=== PATIENT | male | born 1955 | race Caucasian/White ===

== ENCOUNTER 2022-12-05 14:39 | Outpatient (OUT) | payer MEDICARE, MEDICAID, SELFPAY | END 2022-12-05 14:40 | PROVIDERS: Visit Provider Physician Assistant | DX: E11.621 Type 2 diabetes mellitus with foot ulcer (principal); L97.521 Non-pressure chronic ulcer of other part of left foot limited to breakdown of skin; L97.421 Non-pressure chronic ulcer of left heel and midfoot limited to breakdown of skin | CPT/HCPCS: 99212; G0463 ==

== ENCOUNTER 2022-12-26 13:13 | Outpatient (OUT) | payer MEDICARE, MEDICAID, SELFPAY | END 2022-12-26 13:14 | disposition home or self-care (01) | LOC: WC 13:13 | PROVIDERS: Visit Provider Physician Assistant | DX: E11.621 Type 2 diabetes mellitus with foot ulcer (principal); L97.521 Non-pressure chronic ulcer of other part of left foot limited to breakdown of skin; L97.421 Non-pressure chronic ulcer of left heel and midfoot limited to breakdown of skin; M21.6X2 Other acquired deformities of left foot; I73.9 Peripheral vascular disease, unspecified; I48.0 Paroxysmal atrial fibrillation; R78.81 Bacteremia; N18.30 Chronic kidney disease, stage 3 unspecified; R00.1 Bradycardia, unspecified; I10 Essential (primary) hypertension; E55.9 Vitamin D deficiency, unspecified; E11.21 Type 2 diabetes mellitus with diabetic nephropathy; E11.65 Type 2 diabetes mellitus with hyperglycemia; E11.59 Type 2 diabetes mellitus with other circulatory complications | CPT/HCPCS: A6213; G0463 ==

== ENCOUNTER 2023-01-09 08:37 | Outpatient (OUT) | payer MEDICARE, MEDICAID, SELFPAY ==
--- NOTE | 2023-01-09 09:21 | XR_ITS ---
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 No cortical destruction or periosteal reaction. Calcaneal plantar spur. No bone lesion. SOFT TISSUES:No appreciable soft tissue swelling or foreign body. Atherosclerotic disease. EFFUSION:None visible. OTHER: Negative. XR/XR foot LT min 3V IMPRESSION: 1. Stable surgical changes. No findings to suggest osteomyelitis. Electronically authenticated by: EDILSON DON Date: 01/09/2023 12:33
== END 2023-01-09 08:38 | disposition home or self-care (01) ==
LOC: WC 08:37
PROVIDERS: Visit Provider Physician Assistant
DX: M79.672 Pain in left foot (principal); E11.621 Type 2 diabetes mellitus with foot ulcer; L97.421 Non-pressure chronic ulcer of left heel and midfoot limited to breakdown of skin
CPT/HCPCS: 11042; 73630; A6213

== ENCOUNTER 2023-01-17 12:12 | Outpatient (OUT) | payer MEDICARE, MEDICAID, SELFPAY | END 2023-01-17 12:13 | disposition home or self-care (01) | LOC: WC 12:12 | PROVIDERS: Visit Provider Podiatrist Foot & Ankle Surgery | DX: E11.621 Type 2 diabetes mellitus with foot ulcer (principal); L97.421 Non-pressure chronic ulcer of left heel and midfoot limited to breakdown of skin | CPT/HCPCS: 15275 ==

== ENCOUNTER 2023-01-25 12:25 | Outpatient (OUT) | payer MEDICARE, MEDICAID, SELFPAY | END 2023-01-25 12:26 | disposition home or self-care (01) | LOC: WC 12:25 | PROVIDERS: Visit Provider Podiatrist Foot & Ankle Surgery | DX: E11.621 Type 2 diabetes mellitus with foot ulcer (principal); L97.521 Non-pressure chronic ulcer of other part of left foot limited to breakdown of skin; L97.421 Non-pressure chronic ulcer of left heel and midfoot limited to breakdown of skin | CPT/HCPCS: A6213; G0463 ==

== ENCOUNTER 2023-01-30 14:24 | Outpatient (OUT) | payer MEDICARE, MEDICAID, SELFPAY | END 2023-01-30 14:25 | disposition home or self-care (01) | LOC: WC 14:24 | PROVIDERS: Visit Provider Physician Assistant | DX: E11.621 Type 2 diabetes mellitus with foot ulcer (principal); L97.421 Non-pressure chronic ulcer of left heel and midfoot limited to breakdown of skin; L97.521 Non-pressure chronic ulcer of other part of left foot limited to breakdown of skin | CPT/HCPCS: 15275 ==

== ENCOUNTER 2023-02-08 10:11 | Outpatient (OUT) | payer MEDICARE, MEDICAID, SELFPAY | END 2023-02-08 10:12 | disposition home or self-care (01) | LOC: WC 10:11 | PROVIDERS: Visit Provider Podiatrist Foot & Ankle Surgery | DX: E11.621 Type 2 diabetes mellitus with foot ulcer (principal); L97.421 Non-pressure chronic ulcer of left heel and midfoot limited to breakdown of skin | CPT/HCPCS: 15275 ==

== ENCOUNTER 2023-02-16 09:10 | Outpatient (OUT) | payer MEDICARE, MEDICAID, SELFPAY | END 2023-02-16 09:11 | disposition home or self-care (01) | LOC: WC 09:11 | PROVIDERS: Visit Provider Physician Assistant | DX: E11.621 Type 2 diabetes mellitus with foot ulcer (principal); L97.421 Non-pressure chronic ulcer of left heel and midfoot limited to breakdown of skin | CPT/HCPCS: 15275; A6213 ==

== ENCOUNTER 2023-02-24 09:05 | Outpatient (OUT) | payer MEDICARE, MEDICAID, SELFPAY | END 2023-02-24 09:06 | disposition home or self-care (01) | LOC: WC 09:05 | PROVIDERS: Visit Provider Podiatrist Foot & Ankle Surgery | DX: E11.621 Type 2 diabetes mellitus with foot ulcer (principal); L97.421 Non-pressure chronic ulcer of left heel and midfoot limited to breakdown of skin | CPT/HCPCS: 15275; A6213 ==

== ENCOUNTER 2023-03-03 09:18 | Outpatient (OUT) | payer MEDICARE, MEDICAID, SELFPAY | END 2023-03-03 09:19 | disposition home or self-care (01) | LOC: WC 09:18 | PROVIDERS: Visit Provider Podiatrist Foot & Ankle Surgery | DX: E11.621 Type 2 diabetes mellitus with foot ulcer (principal); L97.421 Non-pressure chronic ulcer of left heel and midfoot limited to breakdown of skin; L97.521 Non-pressure chronic ulcer of other part of left foot limited to breakdown of skin | CPT/HCPCS: 11042; A6213 ==

== ENCOUNTER 2023-03-10 10:07 | Outpatient (OUT) | payer MEDICARE, MEDICAID, SELFPAY | END 2023-03-10 10:08 | disposition home or self-care (01) | LOC: WC 10:07 | PROVIDERS: Visit Provider Podiatrist Foot & Ankle Surgery | DX: E11.621 Type 2 diabetes mellitus with foot ulcer (principal); L97.421 Non-pressure chronic ulcer of left heel and midfoot limited to breakdown of skin; L97.521 Non-pressure chronic ulcer of other part of left foot limited to breakdown of skin | CPT/HCPCS: 11042; A6213 ==

== ENCOUNTER 2023-03-28 15:05 | Outpatient (OUT) | payer MEDICARE, MEDICAID, SELFPAY | END 2023-03-28 15:06 | disposition home or self-care (01) | LOC: WC 15:05 | PROVIDERS: Visit Provider Podiatrist Foot & Ankle Surgery | DX: E11.621 Type 2 diabetes mellitus with foot ulcer (principal); L97.421 Non-pressure chronic ulcer of left heel and midfoot limited to breakdown of skin | CPT/HCPCS: 11042 ==

== ENCOUNTER 2023-04-17 14:14 | Outpatient (OUT) | payer MEDICARE, MEDICAID, SELFPAY | END 2023-04-17 14:15 | disposition home or self-care (01) | LOC: WC 14:15 | PROVIDERS: Visit Provider Physician Assistant | DX: E11.621 Type 2 diabetes mellitus with foot ulcer (principal); L97.421 Non-pressure chronic ulcer of left heel and midfoot limited to breakdown of skin | CPT/HCPCS: 11042 ==

== ENCOUNTER 2023-05-01 09:47 | Outpatient (OUT) | payer MEDICARE, MEDICAID, SELFPAY | END 2023-05-01 09:48 | disposition home or self-care (01) | LOC: WC 09:47 | PROVIDERS: Visit Provider Physician Assistant | DX: E11.621 Type 2 diabetes mellitus with foot ulcer (principal); L97.421 Non-pressure chronic ulcer of left heel and midfoot limited to breakdown of skin | CPT/HCPCS: A6213; G0463 ==

== ENCOUNTER 2023-05-23 08:58 | Outpatient (OUT) | payer MEDICARE, MEDICAID, SELFPAY | END 2023-05-23 08:59 | disposition home or self-care (01) | LOC: WC 08:58 | PROVIDERS: Visit Provider Podiatrist Foot & Ankle Surgery | DX: E11.621 Type 2 diabetes mellitus with foot ulcer (principal); L97.421 Non-pressure chronic ulcer of left heel and midfoot limited to breakdown of skin | CPT/HCPCS: 11042 ==

== ENCOUNTER 2023-06-12 08:56 | Outpatient (OUT) | payer MEDICARE, MEDICAID, SELFPAY | END 2023-06-12 08:57 | disposition home or self-care (01) | LOC: WC 08:56 | PROVIDERS: Visit Provider Physician Assistant | DX: E11.621 Type 2 diabetes mellitus with foot ulcer (principal); L97.421 Non-pressure chronic ulcer of left heel and midfoot limited to breakdown of skin | CPT/HCPCS: G0463 ==

== ENCOUNTER 2023-07-10 08:52 | Outpatient (OUT) | payer MEDICARE, MEDICAID, SELFPAY ==
--- OUTSIDE RECORDS SUMMARY | 2023-07-10 08:56 | XMS_ITS | CCD ---
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 Name Role Phone MARIANA PHILLIPS Attending Unavailable HIGHLANDER, MARIANA Liu Admitting Unavailable HIGHLANDER, MARIANA Liu Attending Unavailable HIGHLANDER, MARIANA Liu Admitting Unavailable HIGHLANDER, MARIANA Liu Admitting Unavailable HIGHLANDER, MARIANA Liu Attending Unavailable [place] Admitting Unavailable [place] Attending Unavailable HIGHLANDER, MARIANA Liu Admitting Unavailable HIGHLANDER, MARIANA Liu Attending Unavailable HIGHLANDER, MARIANA Liu Admitting Unavailable DR EDILSON DON Consulting Unavailable HIGHLANDER, MARIANA Liu Attending Unavailable HIGHLANDER, MARIANA Liu Consulting Unavailable HIGHLANDER, MARIANA Liu Admitting Unavailable HIGHLANDER, MARIANA Liu Consulting Unavailable HIGHLANDER, MARIANA Liu Attending Unavailable Problems Problem Classification Problem Date Documented Da te Episodic/Chronic Acquired foot deformities (1 source) Other acquired deformities of left foot; 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: [OTHER ACQUIRED DEFORMITIES LT FOOT] Onset: 08-26-2022 Episodic Bacterial infection; unspecified site (1 source) Bacteremia; 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: [BACTEREMIA] Onset: 08-26-2022 Episodic Cardiac dysrhythmias (2 sources) Unspecified atrial fibrillation; 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: [Paroxysmal atrial fibrillation] Onset: 08-26-2022 Chronic Cardiac dysrhythmias (1 source) Bradycardia, unspecified; 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: [BRADYCARDIA UNSPECIFIED] Onset: 08-26-2022 Episodic Chronic ulcer of skin (6 sources) 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 breakdown of skin; 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: [Non-pressure chronic ulcer of left heel and midfoot limited to breakdown of skin] Onset: 08-26-2022 Chronic Diabetes mellitus with complications (12 sources) Type 2 diabetes mellitus with other skin ulcer; 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: [Type 2 diabetes mellitus with diabetic nephropathy] Onset: 08-17-2022 Chronic Essential hypertension (1 source) Essential (primary) hypertension; 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: [ESSENTIAL PRIMARY HYPERTENSION] Onset: 08-26-2022 Chronic Hypertension with complications and secondary hypertension (1 source) Hypertensive chronic kidney disease with stage 1 through stage 4 chronic kidney disease, or unspecified chronic kidney disease; 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: [HTN CKD W/STAGE 1-4 CKD/UNS CKD] Onset: 09-21-2022 Chronic Nutritional deficiencies (1 source) Vitamin D deficiency, unspecified; 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: [VITAMIN D DEFICIENCY UNSPECIFIED] Onset: 08-26-2022 Chronic Other circulatory disease (4 sources) Other disorder of circulatory system; 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: [OTHER DISORDER CIRCULATORY SYSTEM] Onset: 08-16-2022 Episodic Other circulatory disease (1 source) Other specified symptoms and signs involving the circulatory and respiratory systems; 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: [OTH SPEC SX SIGNS INVLV CIRC RS] Onset: 08-21-2022 Episodic Other connective tissue disease (4 sources) Pain in left foot; 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: [PAIN IN LEFT FOOT] Onset: 08-09-2022 Episodic Peripheral and visceral atherosclerosis (1 source) Peripheral vascular disease, unspecified; 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: [PERIPHERAL VASCULAR DISEASE UNS] Onset: 08-26-2022 Chronic Unclassified (1 source) CHRN KIDNEY DISEASE STG 3 UNSP; 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: [CHRN KIDNEY DISEASE STG 3 UNSP] Onset: 09-21-2022 Encounters Encounter Date Encounter Type Care Provider Facility Start: 11-14-2022 End: 11-15-2022 ambulatory MARIANA PHILLIPS Facility:[facility] Start: 10-24-2022 End: 10-25-2022 ambulatory MARIANA PHILLIPS Facility:[facility] Start: 10-03-2022 End: 10-04-2022 ambulatory MARIANA PHILLIPS Facility:[facility] Start: 09-12-2022 End: 09-13-2022 ambulatory CHET FOURNIER Facility:[facility] Start: 08-23-2022 End: 08-24-2022 ambulatory MARIANA PHILLIPS Facility:[facility] Start: 08-16-2022 End: 08-17-2022 ambulatory MARIANA PHILLIPS Facility:[facility] Start: 08-09-2022 End: 08-10-2022 ambulatory MARIANA PHILLIPS Facility:[facility] Payers Date Payer Category Payer Medicaid [id number] 1960 Medicare [id number] 1955 Unknown [id number] 2.16.84 [id number] 1955 Unknown [id number] 2.16.84 [id number] 1955 Unknown [id number] 2.16.84 [id number] 1955 Unknown [id number] 2.16.84 [id number] 1955 Unknown [id number] 2.16.84 [id number] 1955 Unknown [id number] 2.16.84 [id number] 1955 Unknown [id number] 2.16.84 [id number] Clinical Note 08-09-2022 Note Date & Type Note Facility 08-09-2022 Note PROCEDURE: XR FOOT L T MIN 3 VIEWS HISTORY: Pain in left foot COMPARISON: None. FINDINGS: BONES:Amputation of the third, fourth, and fifth toes at mid metatarsal level. Mild degenerative changes of the first metatarsophalangeal joint. Calcaneal plantar spur. SOFT TISSUES:No visible soft tissue swelling. Atherosclerotic disease. EFFUSION:None visible. OTHER: Negative. IMPRESSION: 1. Remote amputation changes. 2. No appreciable acute abnormality or findings to suggest osteomyelitis. Electronically authenticated by: EDILSON DON Date: 2022-08-09 15:44 [facility] Summary Purpose Family History No Family History Records Found Advance Directives No Advanced Directives Records Found Additional Source Comments (unrecognized sect ion and content) No Status Records Found INFORMATION SOURCE (unrecogn ized section and content) DATE CREATED AUTHOR 11/16/2022 The [facility] FOR RECORDS PERTAINING TO PATIENTS WHO ARE OR HAVE BEEN ENROLLED IN A CHEMICAL DEPENDENCY/SUBSTANCEABUSE PROGRAM, SOME INFORMATION MAY BE OMITTED. This clinical summary was aggregated from multiple sources. Caution should be exercised in using it in the provision of clinical care. This summary normalizes information from multiple sources, and as a consequence, information in this document may materially change the coding, format and clinical context of patient data. In addition, data may be omitted in some cases. CLINICAL DECISIONS SHOULD BE BASED ON THE PRIMARY CLINICAL RECORDS. [facility]. provides no warranty or guarantee of the accuracy or completeness of information in this document.
== END 2023-07-10 08:53 | disposition home or self-care (01) ==
LOC: WC 08:52
PROVIDERS: Visit Provider Physician Assistant
DX: E11.621 Type 2 diabetes mellitus with foot ulcer (principal); L97.421 Non-pressure chronic ulcer of left heel and midfoot limited to breakdown of skin
CPT/HCPCS: G0463

== ENCOUNTER 2023-08-14 14:50 | Outpatient (OUT) | payer MEDICARE, MEDICAID, SELFPAY | END 2023-08-14 14:51 | disposition home or self-care (01) | LOC: WC 14:51 | PROVIDERS: Visit Provider Physician Assistant | DX: E11.621 Type 2 diabetes mellitus with foot ulcer (principal); L97.421 Non-pressure chronic ulcer of left heel and midfoot limited to breakdown of skin | CPT/HCPCS: 11042; A6213 ==

== ENCOUNTER 2023-09-04 13:20 | Outpatient (OUT) | payer MEDICARE, MEDICAID, SELFPAY | END 2023-09-04 13:21 | disposition home or self-care (01) | LOC: WC 13:20 | PROVIDERS: Visit Provider Physician Assistant | DX: E11.621 Type 2 diabetes mellitus with foot ulcer (principal); L97.421 Non-pressure chronic ulcer of left heel and midfoot limited to breakdown of skin; L84 Corns and callosities; E11.40 Type 2 diabetes mellitus with diabetic neuropathy, unspecified | CPT/HCPCS: A6213; G0463 ==

== ENCOUNTER 2023-09-25 15:38 | Outpatient (OUT) | payer MEDICARE, MEDICAID, SELFPAY ==
--- OUTSIDE RECORDS SUMMARY | 2023-09-25 15:47 | XMS_ITS | CCD ---
Author Organization [facility] Care Team Providers Care Special Population Paraprofessional Name Role Phone MARIANA PHILLIPS Attending Unavailable HIGHLANDER, MARIANA Liu Admitting Unavailable HIGHLANDER, MARIANA Liu Attending Unavailable HIGHLANDER, MARIANA Liu Admitting Unavailable HIGHLANDER, MARIANA Liu Admitting Unavailable HIGHLANDER, MARIANA Liu Attending Unavailable SHANTANU, CHET Admitting Unavailable SHANTANU, CHET Attending Unavailable HIGHLANDER, MARIANA Liu Admitting Unavailable HIGHLANDER, MARIANA Liu Attending Unavailable HIGHLANDER, MARIANA Liu Admitting Unavailable ZIEBER, DR EDILSON Jerez Consulting Unavailable HIGHLANDER, MARIANA Liu Attending Unavailable HIGHLANDER, MARIANA Liu Consulting Unavailable HIGHLANDER, MARIANA Liu Admitting Unavailable HIGHLANDER, MARIANA Liu Consulting Unavailable HIGHLANDER, MARIANA Liu Attending Unavailable ANGLIM, IZZY A Referring Unavailable ANGLIM, IZZY A Primary Care Unavailable ANGLIM, IZZY A Referring Unavailable ANGLIM, IZZY A Primary Care Unavailable ANGLIM, IZZY A Referring Unavailable ANGLIM, IZZY A Primary Care Unavailable ANGLIM, IZZY A Referring Unavailable ANGLIM, IZZY A Primary Care Unavailable Problems Problem Classification Problem Date Documented [...] Onset: 08-26-2022 Chronic Diabetes mellitus with complications (13 sources) Type 2 diabetes mellitus with other [...] W/STAGE 1-4 CKD/UNS CKD] Onset: 09-21-2022 Chronic Immunizations and screening for infectious disease (1 source) Encounter for screening for other viral diseases; 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: [Encounter for screening for other viral diseases] Onset: 08-02-2023 Episodic Nutritional deficiencies (2 sources) Vitamin D deficiency, unspecified; 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: [VITAMIN D [...] [PAIN IN LEFT FOOT] Onset: 08-09-2022 Episodic Other screening for suspected conditions (not mental disorders or infectious disease) (1 source) Encounter for screening for malignant neoplasm of prostate; 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: [Encounter for screening for malignant neoplasm of prostate] Onset: 09-22-2023 Episodic Peripheral and visceral atherosclerosis (1 source) Peripheral vascular disease, unspecified; 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: [PERIPHERAL VASCULAR DISEASE UNS] Onset: 08-26-2022 Chronic Spondylosis; intervertebral disc disorders; other back problems (1 source) Cervicalgia; 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: [Cervicalgia] Onset: 06-29-2023 Episodic Unclassified (1 source) CHRN KIDNEY DISEASE STG 3 UNSP; 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: [CHRN KIDNEY DISEASE STG 3 UNSP] Onset: 09-21-2022 Results Test Name Value Interpretation Reference Range Facil ity CBC AND AUTO DIFFon 09-22-19 ABSOLUTE BASOPHIL 0.0 X10E9/L Normal 0.0-0.2 [facility] Comment on above: Performed By: #### C BCA, CMP, THYR #### [facility] ([id number]) [address] [place] [address] 80806 #### 2857-1, 71687-2, 72234-5 #### [facility] ([id number]) [address], [address] [place] [address] ABSOLUTE NEUTROPHIL 4.3 X10E9/L Normal 1.5-6.6 [facility] Comment on above: Performed By: #### C BCA, CMP, THYR #### [facility] ([id number]) [address] [place] [address] 38545 #### 2857-1, 78436-7, 89774-5 #### [facility] ([id number]) [address], [address] [place] [address] Basophils/100 WBC (Bld) 0.5 % Normal [facility] Comment on above: Performed By: #### C BCA, CMP, THYR #### [facility] ([id number]) [address] [place] [address] 60424 #### 2857-1, 79266-0, 75184-5 #### [facility] ([id number]) [address], [address] [place] [address] Eosinophils (Bld) [#/Vol] 0.0 10*3/uL Normal 0.0-0.4 [facility] Comment on above: Performed By: #### C BCA, CMP, THYR #### [facility] ([id number]) [address] [place] [address] 52466 #### 2857-1, 42043-5, 54119-6 #### [facility] ([id number]) [address], [address] [place] [address] Eosinophils/100 WBC (Bld) 0.7 % Normal [facility] Comment on above: Performed By: #### C BCA, CMP, THYR #### [facility] ([id number]) [address] [place] [address] 19477 #### 2857-1, 35726-4, 94734-2 #### [facility] ([id number]) [address], [address] [place] [address] Erythrocyte distribution width (RBC) [Ratio] 15.8 % High 11.5-15.0 [facility] Comment on above: Performed By: #### C BCA, CMP, THYR #### [facility] ([id number]) [address] [place] [address] 20259 #### 2857-1, 42274-7, 33960-2 #### [facility] ([id number]) [address], [address] [place] [address] Hematocrit (Bld) [Volume fraction] 39.8 % Normal 39-49 [facility] Comment on above: Performed By: #### C BCA, CMP, THYR #### [facility] ([id number]) [address] [place] [address] 08920 #### 2857-1, 44535-8, 41390-2 #### [facility] ([id number]) [address], [address] [place] [address] Hemoglobin (Bld) [Mass/Vol] 13.2 g/dL Normal 13.0-17.0 [facility] Comment on above: Performed By: #### C BCA, CMP, THYR #### [facility] ([id number]) [address] [place] [address] 90345 #### 2857-1, 72597-8, 41244-6 #### [facility] ([id number]) [address], [address] [place] [address] Lymphocytes (Bld) [#/Vol] 1.1 10*3/uL Normal 1.0-3.5 [facility] Comment on above: Performed By: #### C BCA, CMP, THYR #### [facility] ([id number]) [address] [place] [address] 18843 #### 2857-1, 33563-9, 83204-4 #### [facility] ([id number]) [address] [place] [address], [address] [place] [address] Lymphocytes/100 WBC (Bld) 17.7 % Normal [facility] Comment on above: Performed By: #### C BCA, CMP, THYR #### [facility] ([id number]) [address] [place] [address] 77694 #### 2857-1, 27448-4, 24041-5 #### [facility] ([id number]) [address] [place] [address], [address] [place] [address] MCH (RBC) [Entitic mass] 29.8 pg Normal 27-34 [facility] Comment on above: Performed By: #### C BCA, CMP, THYR #### [facility] ([id number]) [address] [place] [address] 37745 #### 2857-1, 37860-7, 46177-9 #### [facility] ([id number]) [address] [place] [address], [address] [place] [address] MCHC (RBC) [Mass/Vol] 33.1 g/dL Normal 32-36 [facility] Comment on above: Performed By: #### C BCA, CMP, THYR #### [facility] ([id number]) [address] [place] [address] 22414 #### 2857-1, 98511-0, 70764-8 #### [facility] ([id number]) [address], [address] [place] [address] MCV (RBC) [Entitic vol] 90 fL Normal 80-100 [facility] Comment on above: Performed By: #### C BCA, CMP, THYR #### [facility] ([id number]) [address] [place] [address] 68895 #### 2857-1, 95392-0, 72449-2 #### [facility] ([id number]) [address], [address] [place] [address] Monocytes (Bld) [#/Vol] 0.8 10*3/uL Normal 0-0.9 [facility] Comment on above: Performed By: #### C BCA, CMP, THYR #### [facility] ([id number]) [address] [place] [address] 93681 #### 2857-1, 82274-6, 30575-4 #### [facility] ([id number]) [address], [address] [place] [address] Monocytes/100 WBC (Bld) 12.8 % Normal [facility] Comment on above: Performed By: #### C BCA, CMP, THYR #### [facility] ([id number]) [address] [place] [address] 24152 #### 2857-1, 39593-3, 19199-8 #### [facility] ([id number]) [address], [address] [place] [address] Neutrophils/100 WBC (Bld) 68.3 % Normal [facility] Comment on above: Performed By: #### C BCA, CMP, THYR #### [facility] ([id number]) [address] [place] [address] 79693 #### 2857-1, 89690-9, 55229-8 #### [facility] ([id number]) [address], [address] [place] [address] Platelet mean volume (Bld) [Entitic vol] 7.8 fL Normal 7-12 [facility] Comment on above: Performed By: #### C BCA, CMP, THYR #### [facility] ([id number]) [address] [place] [address] 04425 #### 2857-1, 01751-1, 82591-7 #### [facility] ([id number]) [address], [address] [place] [address] Platelets (Bld) [#/Vol] 259 10*3/uL Normal 150-450 [facility] Comment on above: Performed By: #### C BCA, CMP, THYR #### [facility] ([id number]) [address] [place] [address] 57208 #### 2857-1, 79298-3, 85406-8 #### [facility] ([id number]) [address], [address] [place] [address] RBC COUNT 4.42 X10E12/L Normal 4.10-5.70 [facility] Comment on above: Performed By: #### C BCA, CMP, THYR #### [facility] ([id number]) [address] [place] [address] 54325 #### 2857-1, 33606-1, 39523-2 #### [facility] ([id number]) [address], [address] [place] [address] WBC (Bld) [#/Vol] 6.2 10*3/uL Normal 4.0-11.0 [facility] Comment on above: Performed By: #### C BCA, CMP, THYR #### [facility] ([id number]) [address] [place] [address] 37934 #### 2857-1, 59397-5, 97800-7 #### [facility] ([id number]) [address], [address] [place] [address] COMPREHENSIVE METABOLIC PANE Alex 09-22-2023 Albumin [Mass/Vol] 4.2 g/dL Normal 3.2-5.3 [facility] Comment on above: Performed By: #### C BCA, CMP #### [facility] ([id number]) [address] [place] [address] 99773 #### 2857-1, 07829-8, 35554-7, FEPR, 2276-4 #### [facility] ([id number]) [address] [facility], [address] [place] [address] ALP [Catalytic activity/Vol] 41 U/L Normal 39-130 [facility] Comment on above: Performed By: #### C BCA, CMP #### [facility] ([id number]) [address] [place] [address] 09745 #### 2857-1, 84322-4, 09206-5, FEPR, 2276-4 #### [facility] ([id number]) [address] [facility], [address] [place] [address] ALT [Catalytic activity/Vol] 17 U/L Normal 0-40 [facility] Comment on above: Performed By: #### C BCA, CMP #### [facility] ([id number]) [address] [place] [address] 33113 #### 2857-1, 35156-3, 27067-8, FEPR, 2276-4 #### [facility] ([id number]) [address] [facility], [address] [place] [address] Anion gap [Moles/Vol] 6 mmol/L Normal 5-15 [facility] Comment on above: Performed By: #### C BCA, CMP #### [facility] ([id number]) [address] [place] [address] 90249 #### 2857-1, 55592-7, 31260-9, FEPR, 2276-4 #### [facility] ([id number]) [address], [address] [place] [address] AST [Catalytic activity/Vol] 20 U/L Normal 0-41 [facility] Comment on above: Performed By: #### C BCA, CMP #### [facility] ([id number]) [address] [place] [address] 52439 #### 2857-1, 22831-5, 21033-2, FEPR, 2276-4 #### [facility] ([id number]) [address], [address] [place] [address] Bilirubin [Mass/Vol] 0.4 mg/dL Normal 0.3-1.2 [facility] Comment on above: Performed By: #### C BCA, CMP #### [facility] ([id number]) [address] [place] [address] 19761 #### 2857-1, 57950-7, 82534-2, FEPR, 2276-4 #### [facility] ([id number]) [address], [address] [place] [address] Calcium [Mass/Vol] 9.3 mg/dL Normal 8.5-10.5 [facility] Comment on above: Performed By: #### C BCA, CMP #### [facility] ([id number]) [address] [place] [address] 94447 #### 2857-1, 16998-6, 16040-2, FEPR, 2276-4 #### [facility] ([id number]) [address], [address] [place] [address] Chloride [Moles/Vol] 103 mmol/L Normal 98-109 [facility] Comment on above: Performed By: #### C BCA, CMP #### [facility] ([id number]) [address] [place] [address] 11451 #### 2857-1, 23027-8, 64409-9, FEPR, 2276-4 #### [facility] ([id number]) [address], [address] [place] [address] CO2 [Moles/Vol] 27 mmol/L Normal 22-32 [facility] Comment on above: Performed By: #### C BCA, CMP #### [facility] ([id number]) [address] [place] [address] 06562 #### 2857-1, 01827-9, 06462-1, FEPR, 2276-4 #### [facility] ([id number]) [address], [address] [place] [address] Creatinine [Mass/Vol] 1.12 mg/dL Normal 0.70-1.20 [facility] Comment on above: Result Comment: METH OD TRACEABLE TO IDMS STANDARD Performed By: #### C BCA, CMP #### [facility] ([id number]) [address] [place] [address] 08127 #### 2857-1, 26244-9, 40634-5, FEPR, 2276-4 #### [facility] ([id number]) [address], [address] [place] [address] GFR/1.73 sq M.predicted among non-blacks MDRD (S/P/Bld) [Vol rate/Area] 71 mL/min/{1.73_m2} Normal >59 [facility] Comment on above: Result Comment: Reported eGFR is based on the CKD-EPI 2020 equation that does not use a race coefficient. Performed By: #### C BCA, CMP #### [facility] ([id number]) [address] [place] [address] 19732 #### 2857-1, 01215-9, 72224-6, FEPR, 2276-4 #### [facility] ([id number]) [address], [address] [place] [address] Glucose [Mass/Vol] 178 mg/dL High 65-99 [facility] Comment on above: Performed By: #### C BCA, CMP #### [facility] ([id number]) [address] [place] [address] 96878 #### 2857-1, 52579-9, 61039-9, FEPR, 6-4 #### [facility] ([id number]) [address] [facility], [address] [place] [address] Potassium [Moles/Vol] 4.6 mmol/L Normal 3.5-5.0 [facility] Comment on above: Performed By: #### C BCA, CMP #### [facility] ([id number]) [address] [place] [address] 10678 #### 2857-1, 10037-0, 59833-9, FEPR, 6-4 #### [facility] ([id number]) [address], [address] [place] [address] Protein [Mass/Vol] 7.8 g/dL Normal 6.0-8.0 [facility] Comment on above: Performed By: #### C BCA, CMP #### [facility] ([id number]) [address] [place] [address] 20374 #### 2857-1, 08171-5, 76805-4, FEPR, 2276-4 #### [facility] ([id number]) [address], [address] [place] [address] Sodium [Moles/Vol] 136 mmol/L Normal 134-146 [facility] Comment on above: Performed By: #### C BCA, CMP #### [facility] ([id number]) [address] [place] [address] 26164 #### 2857-1, 13697-0, 76220-7, FEPR, 2276-4 #### [facility] ([id number]) [address], [address] [place] [address] Urea nitrogen [Mass/Vol] 18 mg/dL Normal 5-27 [facility] Comment on above: Performed By: #### C BCA, CMP #### [facility] ([id number]) [address] [place] [address] 03212 #### 2857-1, 53308-7, 39391-7, FEPR, 6-4 #### [facility] ([id number]) [address], [address] [place] [address] HCV Ab IA Qlon 09-22-2023 ANTI HCV W/PCR REFLX Non-Reactive Normal NRCT [facility] Comment on above: Result Comment: If recent infection suspected, recommend repeat testing (>2 months). Ykwulx-hg-ytlrsm ratio is <0.80. Performed By: #### C BCA, CMP #### [facility] ([id number]) [address] [place] [address] 59789 #### 2857-1, 41738-0, 91709-9, FEPR, 6-4 #### [facility] ([id number]) [address], [address] [place] [address] HGB A1C (GLYCO-HGB)on 2023 Glucose [Mass/Vol] 180 mg/dL Normal [facility] Comment on above: Performed By: #### C BCA, CMP #### [facility] ([id number]) [address] [place] [address] 54848 #### 2857-1, 49668-1, 28546-0, FEPR, 2276-4 #### [facility] ([id number]) [address] [place] [address], [address] [address] HbA1c (Bld) [Mass fraction] 7.9 % High 4.4-5.6 [facility] Comment on above: Result Comment: NOTE ADA Guidelines Result HgbA1c Normal : less than 5.7 % Prediabetes : 5.7 % to 6.4 % Diabetes : > 6.4 % Use with caution in patients with abnormal hemoglobin variants as the half-life of red blood cells and in vivo glycation rates are affected. Performed By: #### C GARDENIA, CMP #### [facility] ([id number]) [address] [place] [address] 22916 #### 2857-1, 42300-0, 39029-9, FEPR, 2276-4 #### [facility] ([id number]) [address] [place] [address]73 Prostate specific Ag [Mass/V ol]on 09-22-2023 PSA SCREEN 0.89 ng/mL Normal 0.00-4.00 [facility] Comment on above: Result Comment: The method used for this test is Louis [place] DXI chemiluminescent immunoassay. Values obtained by different assay methods cannot be used interchangeably. Performed By: #### C BCA, CMP #### [facility] ([id number]) [address] [place] [address] 40820 #### 2857-1, 00748-6, 85488-8, FEPR, 2276-4 #### [facility] ([id number]) [address] [place] [address], [address] [address] THYROID PROFILEon 09-22-2023 Free T4 [Mass/Vol] 1.03 ng/dL Normal 0.61-1.60 [facility] Comment on above: Performed By: #### C GARDENIA, CMP #### [facility] ([id number]) [address] [place] [address] 93810 #### 2857-1, 99158-4, 01387-6, FEPR, 2276-4 #### [facility] ([id number]) [address] [facility], [address] [place] [address] TSH 4.47 uIU/mL Normal 0.49-4.67 [facility] Comment on above: Performed By: #### C BCA, CMP #### [facility] ([id number]) [address] [place] [address] 47349 #### 2857-1, 97183-3, 56992-1, FEPR, 2276-4 #### [facility] ([id number]) [address] [facility], [address] [place] [address] Vitamin D+Metabolites [Mass/ Vol]on 09-22-2023 VITAMIN D 25 HYD TOT 23.7 ng/mL Low 30-100 [facility] Comment on above: Result Comment: Vitamin D status 25 [place] Vitamin D Deficiency <20 ng/mL Insufficiency 20-29 ng/mL Sufficiency 30-100 ng/mL Toxicity >100 ng/mL NOTE: A pediatric reference range has not been established by the forensic economist of this kit. The [place] [employer] recommends a Vitamin D level of = or >20ng/mL in infants and children. Performed By: #### C BCA, CMP #### [facility] ([id number]) [address] [place] [address] 54725 #### 2857-1, 34906-3, 10422-6, FEPR, 2276-4 #### [facility] ([id number]) [address] [facility], [address] [place] [address] CBC AND AUTO DIFFon 08-02-19 24 ABSOLUTE BASOPHIL 0.0 X10E9/L Normal 0.0-0.2 [facility] Comment on above: Performed By: #### C BCA, CMP #### [facility] ([id number]) [address] [place] [address] 86502 #### 2857-1, 30592-1, 75125-5, FEPR, 2276-4 #### [facility] ([id number]) [address] [facility], [address] [place] [address] ABSOLUTE NEUTROPHIL 4.4 X10E9/L Normal 1.5-6.6 [facility] Comment on above: Performed By: #### C BCA, CMP #### [facility] ([id number]) [address] [place] [address] 66387 #### 2857-1, 99727-9, 93683-5, FEPR, 6-4 #### [facility] ([id number]) [facility] [facility], [address] [place] [address] Basophils/100 WBC (Bld) 0.5 % Normal [facility] Comment on above: Performed By: #### C BCA, CMP #### [facility] ([id number]) [address] [place] [address] 97846 #### 2857-1, 72046-1, 45288-7, FEPR, 6-4 #### [facility] ([id number]) [address] [facility], [address] [place] [address] Eosinophils (Bld) [#/Vol] 0.1 10*3/uL Normal 0.0-0.4 [facility] Comment on above: Performed By: #### C BCA, CMP #### [facility] ([id number]) [address] [place] [address] 53813 #### 2857-1, 38427-2, 78953-5, FEPR, 2276-4 #### [facility] ([id number]) [address], [address] [place] [address] Eosinophils/100 WBC (Bld) 0.9 % Normal [facility] Comment on above: Performed By: #### C BCA, CMP #### [facility] ([id number]) [address] [place] [address] #### 2857-1, 60055-9, 07245-0, FEPR, 2276-4 #### [facility] ([id number]) [address], [address] [place] [address] Erythrocyte distribution width (RBC) [Ratio] 15.7 % High 11.5-15.0 [facility] Comment on above: Performed By: #### C BCA, CMP #### [facility] ([id number]) [address] [place] [address] #### 2857-1, 70740-6, 74025-6, FEPR, 2276-4 #### [facility] ([id number]) [address], [address] [place] [address] Hematocrit (Bld) [Volume fraction] 38.3 % Low 39-49 [facility] Comment on above: Performed By: #### C BCA, CMP #### [facility] ([id number]) [address] [place] [address] #### 2857-1, 13022-5, 52544-1, FEPR, 2276-4 #### [facility] ([id number]) [address], [address] [place] [address] Hemoglobin (Bld) [Mass/Vol] 12.5 g/dL Low 13.0-17.0 [facility] Comment on above: Performed By: #### C BCA, CMP #### [facility] ([id number]) [address] [place] [address] #### 2857-1, 21098-4, 14849-3, FEPR, 2276-4 #### [facility] ([id number]) [address], [address] [place] [address] Lymphocytes (Bld) [#/Vol] 1.2 10*3/uL Normal 1.0-3.5 [facility] Comment on above: Performed By: #### C BCA, CMP #### [facility] ([id number]) [address] [place] [address] #### 2857-1, 18992-5, 78821-1, FEPR, 6-4 #### [facility] ([id number]) [address], [address] [place] [address] Lymphocytes/100 WBC (Bld) 18.4 % Normal [facility] Comment on above: Performed By: #### C BCA, CMP #### [facility] ([id number]) [address] [place] [address] #### 2857-1, 94894-9, 33090-5, FEPR, 6-4 #### [facility] ([id number]) [address], [address] [place] [address] MCH (RBC) [Entitic mass] 29.1 pg Normal 27-34 [facility] Comment on above: Performed By: #### C BCA, CMP #### [facility] ([id number]) [address] [place] [address] #### 2857-1, 94853-7, 94890-0, FEPR, 2276-4 #### [facility] ([id number]) [address], [address] [place] [address] MCHC (RBC) [Mass/Vol] 32.7 g/dL Normal 32-36 [facility] Comment on above: Performed By: #### C BCA, CMP #### [facility] ([id number]) [address] [place] [address] #### 2857-1, 48617-7, 82815-7, FEPR, 2276-4 #### [facility] ([id number]) [address], [address] [place] [address] MCV (RBC) [Entitic vol] 89 fL Normal 80-100 [facility] Comment on above: Performed By: #### C BCA, CMP #### [facility] ([id number]) [address] [place] [address] #### 2857-1, 29805-6, 39020-5, FEPR, 2276-4 #### [facility] ([id number]) [address] [facility], [address] [place] [address] Monocytes (Bld) [#/Vol] 1.0 10*3/uL High 0-0.9 [facility] [facility] Comment on above: Performed By: #### C BCA, CMP #### [facility] ([id number]) [address] [place] [address] #### 2857-1, 50849-3, 60218-2, FEPR, 2276-4 #### [facility] ([id number]) [address], [address] [place] [address] Monocytes/100 WBC (Bld) 14.3 % Normal [facility] Comment on above: Performed By: #### C BCA, CMP #### [facility] ([id number]) [address] [place] [address] 24430 #### 2857-1, 87579-1, 39190-3, FEPR, 2276-4 #### [facility] ([id number]) [address], [address] [place] [address] Neutrophils/100 WBC (Bld) 65.9 % Normal [facility] Comment on above: Performed By: #### C GARDENIA, CMP #### [facility] ([id number]) [address] [place] [address] 38929 #### 2857-1, 31281-5, 29818-4, FEPR, 2276-4 #### [facility] ([id number]) [address], [address] [place] [address] Platelet mean volume (Bld) [Entitic vol] 8.3 fL Normal 7-12 [facility] Comment on above: Performed By: #### C GARDENIA, CMP #### [facility] ([id number]) [address] [place] [address] 93417 #### 2857-1, 56756-6, 02711-2, FEPR, 2276-4 #### [facility] ([id number]) [address], [address] [place] [address] Platelets (Bld) [#/Vol] 271 10*3/uL Normal 150-450 [facility] Comment on above: Performed By: #### Jerry VARNER, CMP #### [facility] ([id number]) [address] [place] [address] 81555 #### 2857-1, 49152-3, 10815-6, FEPR, 2276-4 #### [facility] ([id number]) [address], [address] [place] [address] RBC COUNT 4.31 X10E12/L Normal 4.10-5.70 [facility] Comment on above: Performed By: #### C BCA, CMP #### [facility] ([id number]) [address] [place] [address] 91655 #### 2857-1, 48642-4, 29124-0, FEPR, 2276-4 #### [facility] ([id number]) [address], [address] [place] [address] WBC (Bld) [#/Vol] 6.7 10*3/uL Normal 4.0-11.0 [facility] Comment on above: Performed By: #### C BCA, CMP #### [facility] ([id number]) [address] [place] [address] 7[address] #### 2857-1, 10371-3, 12875-5, FEPR, 2276-4 #### [facility] ([id number]) [address], [address] [place] [address] COMPREHENSIVE METABOLIC PANE Alex 08-02-2023 Albumin [Mass/Vol] 3.8 g/dL Normal 3.2-5.3 [facility] Comment on above: Performed By: #### C BCA, CMP #### [facility] ([id number]) [address] [place] [address] 65446 #### 2857-1, 88297-5, 59450-9, FEPR, 2276-4 #### [facility] ([id number]) [address], [address] [place] [address] ALP [Catalytic activity/Vol] 48 U/L Normal 39-130 [facility] Comment on above: Performed By: #### C BCA, CMP #### [facility] ([id number]) [address] [place] [address] 37705 #### 2857-1, 08287-4, 08365-9, FEPR, 2276-4 #### [facility] ([id number]) [address], [address] [place] [address] ALT [Catalytic activity/Vol] 18 U/L Normal 0-40 [facility] Comment on above: Performed By: #### C BCA, CMP #### [facility] ([id number]) [address] [place] [address] 18619 #### 2857-1, 64893-2, 69332-8, FEPR, 2276-4 #### [facility] ([id number]) [address], [address] [place] [address] Anion gap [Moles/Vol] 9 mmol/L Normal 5-15 [facility] Comment on above: Performed By: #### C BCA, CMP #### [facility] ([id number]) [address] [place] [address] 15782 #### 2857-1, 76874-3, 88087-0, FEPR, 2276-4 #### [facility] ([id number]) [address], [address] [place] [address] AST [Catalytic activity/Vol] 24 U/L Normal 0-41 [facility] Comment on above: Performed By: #### C BCA, CMP #### [facility] ([id number]) [address] [place] [address] 84789 #### 2857-1, 83660-9, 60797-6, FEPR, 2276-4 #### [facility] ([id number]) [address], [address] [place] [address] Bilirubin [Mass/Vol] 0.6 mg/dL Normal 0.3-1.2 [facility] Comment on above: Performed By: #### C BCA, CMP #### [facility] ([id number]) [address] [place] [address]10 #### 2857-1, 18294-7, 70373-9, FEPR, 2276-4 #### [facility] ([id number]) [address], [address] [place] [address] Calcium [Mass/Vol] 9.0 mg/dL Normal 8.5-10.5 [facility] Comment on above: Performed By: #### C BCA, CMP #### [facility] ([id number]) [address] [place] [address] 89348 #### 2857-1, 48821-0, 40458-1, FEPR, 2276-4 #### [facility] ([id number]) [address], [address] [place] [address] Chloride [Moles/Vol] 98 mmol/L Normal 98-109 [facility] Comment on above: Performed By: #### C BCA, CMP #### [facility] ([id number]) [address] [place] [address] #### 2857-1, 45267-8, 16928-7, FEPR, 2276-4 #### [facility] ([id number]) [address] [facility], [address] [place] [address] CO2 [Moles/Vol] 28 mmol/L Normal 22-32 [facility] Comment on above: Performed By: #### C BCA, CMP #### [facility] ([id number]) [address] [place] [address] 81798 #### 2857-1, 27857-2, 68180-2, FEPR, 2276-4 #### [facility] ([id number]) [address], [address] [place] [address] Creatinine [Mass/Vol] 0.93 mg/dL Normal 0.70-1.20 [facility] Comment on above: Result Comment: METH OD TRACEABLE TO IDMS STANDARD Performed By: #### C BCA, CMP #### [facility] ([id number]) [address] [place] [address] 37932 #### 2857-1, 59322-0, 76897-9, FEPR, 2276-4 #### [facility] ([id number]) [address], [address] [place] [address] GFR/1.73 sq M.predicted among non-blacks MDRD (S/P/Bld) [Vol rate/Area] 89 mL/min/{1.73_m2} Normal >59 [facility] Comment on above: Result Comment: Reported eGFR is based on the CKD-EPI 2020 equation that does not use a race coefficient. Performed By: #### C BCA, CMP #### [facility] ([id number]) [address] [place] [address] #### 2857-1, 23749-8, 84805-2, FEPR, 2276-4 #### [facility] ([id number]) [address], [address] [place] [address] Glucose [Mass/Vol] 193 mg/dL High 65-99 [facility] Comment on above: Performed By: #### C BCA, CMP #### [facility] ([id number]) [address] [place] [address] 43957 #### 2857-1, 06776-9, 76595-6, FEPR, 2276-4 #### [facility] ([id number]) [address], [address] [place] [address] Potassium [Moles/Vol] 4.8 mmol/L Normal 3.5-5.0 [facility] Comment on above: Performed By: #### C BCA, CMP #### [facility] ([id number]) [address] [place] [address] 07288 #### 2857-1, 18488-5, 46688-5, FEPR, 2276-4 #### [facility] ([id number]) [address], [address] [place] [address] Protein [Mass/Vol] 7.8 g/dL Normal 6.0-8.0 [facility] Comment on above: Performed By: #### C BCA, CMP #### [facility] ([id number]) [address] [place] [address] 02188 #### 2857-1, 57321-9, 98541-0, FEPR, 2276-4 #### [facility] ([id number]) [address], [address] [place] [address] Sodium [Moles/Vol] 135 mmol/L Normal 134-146 [facility] Comment on above: Performed By: #### C BCA, CMP #### [facility] ([id number]) [address] [place] [address] 49798 #### 2857-1, 37070-5, 34174-3, FEPR, 2276-4 #### [facility] ([id number]) [address], [address] [place] [address] Urea nitrogen [Mass/Vol] 20 mg/dL Normal 5-27 [facility] Comment on above: Performed By: #### C BCA, CMP #### [facility] ([id number]) [address] [place] [address] 60676 #### 2857-1, 19078-0, 56489-3, FEPR, 2276-4 #### [facility] ([id number]) [address], [address] [place] [address] FERRITINon 08-02-2023 Ferritin [Mass/Vol] 29 ng/mL Normal 24-336 [facility] Comment on above: Performed By: #### C BCA, CMP #### [facility] ([id number]) [address] [place] [address] 13144 #### 2857-1, 95316-0, 23067-9, FEPR, 2276-4 #### [facility] ([id number]) [address], [address] [place] [address] HCV Ab IA Qlon 08-02-2023 ANTI HCV W/PCR REFLX Non-Reactive Normal NRCT [facility] Comment on above: Result Comment: If recent infection suspected, recommend repeat testing (>2 months). Lftjmd-xh-dcnrtj ratio is <0.80. Performed By: #### C BCA, CMP #### [facility] ([id number]) [address] [place] [address] 80824 #### 2857-1, 16525-2, 21583-5, FEPR, 2276-4 #### [facility] ([id number]) [address] [facility] [address] [place] [address] HGB A1C (GLYCO-HGB)on 2023 Glucose [Mass/Vol] 189 mg/dL Normal [facility] Comment on above: Performed By: #### C BCA, CMP #### [facility] ([id number]) [address] [place] [address] 27290 #### 2857-1, 97521-1, 03787-6, FEPR, 2276-4 #### [facility] ([id number]) [facility], [address] [address] HbA1c (Bld) [Mass fraction] 8.2 % High 4.4-5.6 [facility] Comment on above: Result Comment: NOTE ADA Guidelines Result HgbA1c Normal : less than 5.7 % Prediabetes : 5.7 % to 6.4 % Diabetes : > 6.4 % Use with caution in patients with abnormal hemoglobin variants as the half-life of red blood cells and in vivo glycation rates are affected. Performed By: #### C BCA, CMP #### [facility] ([id number]) [address] [place] [address]246 #### 2857-1, 88892-3, 93407-8, FEPR, 2276-4 #### [facility] ([id number]) [address] [facility], [address] [place] [address] IRON PROFILEon 08-02-2023 Iron [Mass/Vol] 47 ug/dL Low 50-212 [facility] Comment on above: Performed By: #### C BCA, CMP #### [facility] ([id number]) [address] [place] [address] 74778 #### 2857-1, 54146-6, 08512-9, FEPR, 2276-4 #### [facility] ([id number]) [address] [place] [address] IRON BINDING 379 ug/dL Normal 250-425 [facility] Comment on above: Performed By: #### C BCA, CMP #### [facility] ([id number]) [address] [place] [address] 56093 #### 2857-1, 53479-2, 91372-9, FEPR, 2276-4 #### [facility] ([id number]) [address] [place] [address] IRON SATURATION 12 % SATURATION Low 20-50 [facility] Comment on above: Performed By: #### C BCA, CMP #### [facility] ([id number]) [address] [place] [address] 29690 #### 2857-1, 86455-1, 63547-4, FEPR, 2276-4 #### [facility] ([id number]) [address] [place] [address], [address] [address] Prostate specific Ag [Mass/V ol]on 08-02-2023 PSA SCREEN 0.52 ng/mL Normal 0.00-4.00 [facility] Comment on above: Result Comment: The method used for this test is [employer]SC[employer] DXI chemiluminescent immunoassay. Values obtained by different assay methods cannot be used interchangeably. Performed By: #### C GARDENIA, CMP #### [facility] ([id number]) [address] [place] [address] 75488 #### 2857-1, 68276-9, 38677-8, FEPR, 2276-4 #### [facility] ([id number]) [address], [address] [place] [address] Vitamin D+Metabolites [Mass/ Vol]on 08-02-2023 VITAMIN D 25 HYD TOT 19.2 ng/mL Low 30-100 [facility] Comment on above: Result Comment: Vitamin D status 25 [place] Vitamin D Deficiency <20 ng/mL Insufficiency 20-29 ng/mL Sufficiency 30-100 ng/mL Toxicity >100 ng/mL NOTE: A pediatric reference range has not been established by the forensic economist of this kit. The [place] [employer] recommends a Vitamin D level of = or >20ng/mL in infants and children. Performed By: #### C GARDENIA, CMP #### [facility] ([id number]) [address] [place] [address] 08520 #### 2857-1, 51472-6, 40451-9, FEPR, 2276-4 #### [facility] ([id number]) [address], [address] [place] [address] XR SPINE CERVICAL 3 VWS OR L [facility] 06-29-2023 XR SPINE CERVICAL 3 VWS OR LESS XR SPINE CERVICAL 3 VWS OR LESS XR SPINE CERVICAL 3 VWS OR LESS HISTORY: Neck pain. COMPARISON: None. IMPRESSION: Preserved cervical vertebral body heights. No substantial listhesis. Moderate disc height loss at C4-C5, C5-C6, C6-C7; small associated disc osteophyte complex disease. Moderate median atlantoaxial osteoarthrosis. No prevertebral soft tissue thickening. Posterior facet arthropathy most noted at L2-3. Right carotid vascular calcifications. Finalized by Benedict Ash MD on 06/29/2023 3:36 PM Normal [facility] Encounters Encounter Date Encounter Type Care Provider Facility Start: 09-22-2023 End: 09-23-2023 ambulatory IZZY SAM [facility] Start: 08-02-2023 End: 08-03-2023 ambulatory IZZY SAM [facility] Start: 06-29-2023 End: 06-30-2023 ambulatory IZZY Langford [facility] Start: 11-14-2022 End: 11-15-2022 ambulatory PETER D HIGHLANDER Facility:[facility] Start: 10-24-2022 End: 10-25-2022 ambulatory PETER D HIGHLANDER Facility:[facility] Start: 10-03-2022 End: 10-04-2022 ambulatory PETER D HIGHLANDER Facility:[facility] Start: 09-12-2022 End: 09-13-2022 ambulatory CHET FOURNIER Facility:[facility] Start: 08-23-2022 End: 08-24-2022 ambulatory PETER D HIGHLANDER Facility:[facility] Start: 08-16-2022 End: 08-17-2022 ambulatory PETER D HIGHLANDER Facility:[facility] Start: 08-09-2022 End: 08-10-2022 ambulatory PETER D HIGHLANDER Facility:[facility] Payers Date Payer Category Payer Medicaid [id number] 1960 Medicare [id number] 1955 Unknown [id number] 1954 Unknown [id number] 2..84 0.1.332148.3.579.2.593 1954 Unknown [id number] 2.16.84 0.1.664486.3.579.2.593 1954 Unknown [id number] 2.16.84 0.1.582056.3.579.2.593 1954 Unknown [id number] 2.16.84 0.1.250413.3.579.2.593 1954 Unknown [id number] 2.16.84 0.1.440538.3.579.2.593 1954 Unknown [id number] 2.16.84 0.1.104117.3.579.2.593 1954 Unknown [id number] 2.16.8 40.1.808687.3.579.2.1286 1954 Unknown [id number] 2.16.8 40.1.681499.3.579.2.1286 1954 Unknown [id number] 2.16.84 0.1.755526.3.579.2.1286 1954 Unknown [id number] 2.16.84 0.1.273264.3.579.2.1286 Clinical Note 08-09-2022 Note Date & Type [...] by: EDILSON DON Date: 2022-08-09 15:44 [facility] Summary Purpose Family History No Family History Records FoundNo Family History Records Found Advance Directives No Advanced Directives Records FoundNo Advanced Directives Records Found Additional Source Comments (unrecognized sect ion and content) No Status Records FoundNo Status Records Found INFORMATION SOURCE (unrecogn ized section and content) DATE CREATED AUTHOR 11/16/2022 [facility] DATE CREATED AUTHOR 'S ORGANIZ ATION 09/24/2023 [facility] FOR RECORDS PERTAINING TO PATIENTS WHO [...] BE BASED ON THE PRIMARY CLINICAL RECORDS. [employer] [facility]. provides no warranty or guarantee of the accuracy or completeness of information in this document.
== END 2023-09-25 15:39 | disposition home or self-care (01) ==
LOC: WC 15:39
PROVIDERS: Visit Provider Physician Assistant
DX: E11.621 Type 2 diabetes mellitus with foot ulcer (principal); L97.421 Non-pressure chronic ulcer of left heel and midfoot limited to breakdown of skin
CPT/HCPCS: G0463

== ENCOUNTER 2024-01-12 08:32 | Emergency (ER) | payer MEDICARE, MEDICAID, SELFPAY ==
[2024-01-12 08:33] VITALS: BP 171/93; PULSE 74; TEMP 36.3; O2SAT 95; BMI 27.0
--- NOTE | 2024-01-12 08:54 | ED_ITS ---
HPI HPI - Back Pain/Injury General Chief Complaint: Back Pain/Injury Stated Complaint: LOWER BACK PAIN Time Seen by Provider: 01/12/24 08:34 Source: patient Mode of arrival: ambulance Limitations: no limitations History of Present Illness HPI Narrative: The patient presented to us with almost 3 weeks history of back pain, he already had an evaluation in a [facility] and he mentioned that x-rays were not showing anything abnormal and he was discharged home with pain medication, the patient denies any fall or trauma he mentioned that the pain is in the right side of his back going down his leg. He mentioned that no numbness no tingling no weakness and the pain is 5 out of 10 He has not been taking anything for it [id number] and he also mentioned that he usually ambulates with his walker and he have no difficulty ambulating with the pain The patient have no other complaints, he also mentioned that he have a decubital ulcer that he has been following up with in the wound care and he is supposed to get an MRI for his back in case of the ulcer is not getting better. The patient mentioned that he have home health care nurse and he had a discussion before about rehab with his doctor but at that time he did not want to go for rehad Related Data Home Medications ?Medication ?Instructions ?Recorded ?Confirmed Lactobacillus acidophilus 100 mg 01/12/24 (1 billion cell) capsule amiodarone 200 mg tablet mg 01/12/24 aspirin 81 mg tablet,delayed mg 01/12/24 release carisoprodol 350 mg tablet mg 01/12/24 cholecalciferol (vitamin D3) 125 01/12/24 mcg (5,000 unit) capsule empagliflozin 25 mg tablet mg 01/12/24 (Jardiance) insulin glargine 100 unit/mL (3 unit subcut 01/12/24 mL) subcutaneous pen (Basaglar KwikPen U-100 Insulin) magnesium oxide 400 mg (241.3 mg mg 01/12/24 magnesium) tablet metformin 500 mg tablet,extended mg PO 01/12/24 release 24 hr metoprolol succinate 100 mg mg PO 01/12/24 tablet,extended release 24 hr pantoprazole 40 mg tablet,delayed mg PO 01/12/24 release rivaroxaban 20 mg tablet (Xarelto) mg 01/12/24 semaglutide 0.25 mg or 0.5 mg (2 mg subcut 01/12/24 mg/3 mL) subcutaneous pen injector (Ozempic) sertraline 50 mg tablet mg 01/12/24 tamsulosin 0.4 mg capsule mg PO 01/12/24 Previous Rx's ?Medication ?Instructions ?Recorded tramadol 50 mg tablet 50 mg PO Q8H PRN pain 3 days #9 01/12/24 tabs Allergies Allergy/AdvReac Type Severity Reaction Status Date / Time No Known Drug Allergies Allergy Verified 01/12/24 08:37 Opioid HPI Opioid Management Most Recent Opioid Data: Last Pain Scale 5 01/12/24 09:03 Last ED Pain Assessment 01/12/24 08:35 Last MAR Pain Assessment 01/12/24 09:03 Review of Systems ROS Status of ROS 10 or more systems reviewed and unremark able except as noted in history and below Exam Narrative Exam Narrative: Back: Examination showed that the patient have right paraspinal muscle tenderness mostly at the sacral area and the patient have a decubital ulcer that is at the gluteal cleft almost 7.5 cm oval in shape only redness there is no open wound and there is tenderness on palpation No signs of infection the patient have also sacral intervertebral line tenderness Straight leg raising test is negative Nurses notes and vital signs reviewed and patient is not hypoxic. General: Well-appearing and in no apparent distress. Skin: Warm, dry, no pallor noted. No rash. Head: Normocephalic, atraumatic. Neck: Supple, non-tender. Eye: Pupils are equal, round and EOMI. No scleral icterus. Ears, Nose, Mouth, and Throat: TM are clear, no nasal mucosal hypertrophy. Oral mucosa is moist, no posterior oropharynx erythema, uvula is mid-line Cardiovascular: Regular Rate and Rhythm without murmur, gallop or rub. Respiratory: No accessory muscle use or respiratory distress. Lungs are clear to auscultation, no wheezing, rales or rhonchi Chest Wall: no tenderness Musculoskeletal: normal ROM, no calf or popliteal tenderness, no lower extremity edema/swelling and good anterior tibial pulse GI: Abdomen is soft, non-distended. Normal bowel sounds. No masses appreciated. No tenderness to palpation. No rebound, guarding, or rigidity noted. Neurological: A&O x4. No cranial nerve dysfunction observed. No truncal ataxia. Moves all extremities. Sensation intact. Constitutional Vital Signs, click to edit/add: Last Vital Signs Temp 97.4 F L 01/12/24 08:33 Pulse 74 01/12/24 08:33 Resp 16 01/12/24 08:33 BP 171/93 H 01/12/24 08:33 Pulse Ox 95 01/12/24 08:33 O2 Del Method Room Air 01/12/24 08:33 Course Vital Signs Vital signs: Vital Signs Temperature 97.4 F L 01/12/24 08:33 Pulse Rate 74 01/12/24 08:33 Respiratory Rate 16 01/12/24 08:33 Blood Pressure 171/93 H 01/12/24 08:33 Pulse Oximetry 95 01/12/24 08:33 Oxygen Delivery Method Room Air 01/12/24 08:33 Temperature 97.4 F L 01/12/24 08:33 Pulse Rate 74 01/12/24 08:33 Respiratory Rate 16 01/12/24 08:33 Blood Pressure 171/93 H 01/12/24 08:33 Pulse Oximetry 95 01/12/24 08:33 Oxygen Delivery Method Room Air 01/12/24 08:33 MDM - Back Pain/Injury MDM Narrative Medical decision making narrative: Patient presentation is mostly due to back pain that is musculoskeletal, I did explain to the patient that right now since he recently had imaging studies that that showed no acute pathology and the fact that he is not having any alarming symptoms with his back pain and the fact that he have decubital ulcer due to sitting in his bed The patient apparently had a discussion with him before for rehab but since he have a home health care nurse and he is able to ambulate with a walker, we are giving a transfer the patient to see if they can do well by himself at home but I did discuss the patient need for possibly rehab in case of continuous pain The patient understands He was treated in the ER with Toradol as well as tramadol Instructed about the importance of coming back in case of any new symptoms including alarming symptoms The patient is to follow up with primary care physician in next 2-3 days or to return to the emergency department should any of the signs or symptoms worsen or new symptoms develop. The patient agrees with the following Diagnosis and Treatment plan and the patient will be discharged home. Discharge Plan Discharge Stand Alone Forms: Portal Instructions Chief Complaint: Back Pain/Injury Clinical Impression: Back pain Qualifiers: Back pain location: low back pain Chronicity: unspecified Back pain laterality: right Sciatica presence: with sciatica Sciatica laterality: sciatica of right side Qualified Code(s): M54.41 - Lumbago with sciatica, right side Patient Disposition: Home, Self-Care Time of Disposition Decision: 08:55 Condition: Good Prescriptions / Home Meds: New tramadol 50 mg tablet 50 mg PO Q8H PRN (Reason: pain) 3 Days Qty: 9 0RF No Action carisoprodol 350 mg tablet amiodarone 200 mg tablet metoprolol succinate 100 mg tablet extended release 24 hr PO aspirin 81 mg tablet,delayed release (DR/EC) magnesium oxide 400 mg (241.3 mg magnesium) tablet tamsulosin 0.4 mg capsule PO pantoprazole 40 mg tablet,delayed release (DR/EC) PO metformin 500 mg tablet extended release 24 hr PO sertraline 50 mg tablet cholecalciferol (vitamin D3) 125 mcg (5,000 unit) capsule insulin glargine [Basaglar KwikPen U-100 Insulin] 100 unit/mL (3 mL) insulin pen SUBCUT Xarelto 20 mg tablet Jardiance 25 mg tablet Lactobacillus acidophilus 100 mg (1 billion cell) capsule Ozempic 0.25 mg or 0.5 mg (2 mg/3 mL) pen injector SUBCUT Print Language: Serbian Instructions: Back Pain (ED), Chronic Wounds (ED) Referrals: IZZY SAM [Primary Care Provider] - 1 week Discharge Date/Time: 01/12/24 09:29
[2024-01-12] MEDS: KETOROLAC TROMETHAMINE 30 MG/ML VIAL IM (09:03)
[2024-01-12] MEDS: TRAMADOL HCL 50 MG TABLET PO (09:03)
== END 2024-01-12 09:29 | disposition home or self-care (01) ==
PROVIDERS: Emergency Provider Emergency Medicine
DX: M54.41 Lumbago with sciatica, right side (principal); L89.159 Pressure ulcer of sacral region, unspecified stage
CPT/HCPCS: 96372; 99284; J1885

== ENCOUNTER 2024-03-22 10:15 | Outpatient (OUT) | payer MEDICARE, MEDICAID, SELFPAY ==
--- NOTE | 2024-03-22 | XR_ITS ---
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 No new fracture, dislocation or focal lytic/sclerotic lesions SOFT TISSUES:Soft tissue defect plantar forefoot EFFUSION:None visible. OTHER: Vascular calcifications XR/XR foot LT min 3V IMPRESSION: No plain film evidence of osteomyelitis Electronically authenticated by: LUCAS VARNER Date: 03/25/2024 13:10
--- OUTSIDE RECORDS SUMMARY | 2024-03-22 10:31 | XMS_ITS | CCD ---
Author Organization [facility] Care Team Providers Care Butadiene Convertor Operator Name Role Phone MARIANA PHILLIPS Attending Unavailable [...] Admitting Unavailable HIGHLANDER, MARIANA Liu Consulting Unavailable HIGHLANDERMARIANA Attending Unavailable ANGLIM, IZZY Langford Referring Unavailable ANGLIM, IZZY A Primary Care Unavailable ANGLIM, IZZY A Referring Unavailable ANGLIM, IZZY A Primary Care Unavailable ANGLIM, IZZY A Referring Unavailable ANGLIM, IZZY A Primary Care Unavailable CHEHADIVYA SANDERSON Attending Unavailable [facility] Primary Care Unava ilable DIVYA GONZALES Attending Unavailable DIVYA GONZALES Referring Unavailable [facility], [facility] Primary Care Unava ilable DIVYA GONZALES Attending Unavailable DIVYA GONZALES Referring Unavailable [facility], [facility] Primary Care Unava ilable BEBETO ROMANO Attending Unavailable JACKIE BARRERA Referring Unavailable [facility], [facility] Primary Care Unava ilable BEBETO ROMANO Attending Unavailable NAY MOSLEY Referring Unavailable SERVICES, [facility] Care Unava ilable ANGLIM, IZZY A Referring Unavailable ANGLIM, IZZY A Primary Care Unavailable Problems Active Problems Problem Classification Problem Date Documented Da te Episodic/Chronic Abdominal pain (1 source) Flank pain Onset: 12-26-2023 Episodic Acquired foot deformities (1 source) Other acquired [...] CKD/UNS CKD] Onset: 09-21-2022 Chronic Nutritional deficiencies (2 sources) Vitamin D deficiency, [...] Spondylosis; intervertebral disc disorders; other back problems (2 sources) Spondylosis without myelopathy or radiculopathy, lumbosacral region; 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: [Other intervertebral disc displacement, lumbar region] Onset: 02-22-2024 Chronic Spondylosis; intervertebral disc disorders; other back problems (4 sources) Radiculopathy, lumbar region; 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: [Backache] Onset: 06-29-2023 Episodic Unclassified (1 source) CHRN KIDNEY DISEASE STG 3 UNSP; 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: [CHRN KIDNEY DISEASE STG 3 UNSP] Onset: 09-21-2022 Unclassified (1 source) ems Onset: 12-26-2023 Past or Other Problems Problem Classification Problem Date Documented Da te Episodic/Chronic Immunizations and screening for infectious disease (1 source) Encounter for screening for other viral diseases; 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: [Encounter for screening for other viral diseases] Onset: 08-02-2023 Episodic Other screening for suspected conditions (not mental disorders or infectious disease) (1 source) Encounter for screening for malignant neoplasm of prostate; 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: [Encounter for screening for malignant neoplasm of prostate] Onset: 09-22-2023 Episodic Results Test Name Value Interpretation Reference Range Facil ity XR HIP LT 2-3 VIEWS W OR WO PELVISon 12-26-2023 XR HIP LT 2-3 VIEWS W OR WO PELVIS XR HIP LT 2-3 VIEWS W OR WO PELVIS History: Low back and left hip pain Exam/Technique: AP pelvis and AP and frog-leg views of the left hip were obtained. Comparison: None Findings: There is no evidence for an acute osseous abnormality. No significant degenerative changes are seen. No destructive processes are identified. Extensive vascular calcifications are noted. IMPRESSION: Normal pelvis and left hip. Finalized by Stan Jaramillo MD on 12/26/2023 10:07 AM [facility] XR SPINE LUMBAR 2 OR 3 VWSon 12-26-2023 XR SPINE LUMBAR 2 OR 3 VWS XR SPINE LUMBAR 2 OR 3 VWS HISTORY: Pain TECHNIQUE: Frontal lateral and spot views of the lumbar spine were obtained. . COMPARISON: None. FINDINGS: There is multilevel disc space narrowing, most severe at L4-5. Multilevel endplate osteophyte formation and facet arthropathy is demonstrated. There is a slight retrolisthesis at L1-2 and L2-3. The lumbar vertebral heights are well-maintained. There is a compression deformity of T11 that is unchanged from a CT urogram dated 08/15/2011. There is no evidence for an acute osseous abdomen. IMPRESSION: * Diffuse degenerative changes with disc space narrowing most severe at L4-5. * Slight retrolisthesis of L1-2 and L2-3 * Stable compression deformity of T11, unchanged from a CT examination dated 08/15/2019 * There is no evidence for an acute fracture.. Finalized by Stan Jaramillo MD on 12/26/2023 10:10 AM Normal [facility] CBC AND AUTO DIFFon 09-22-19 ABSOLUTE BASOPHIL 0.0 X10E9/L Normal 0.0-0.2 [facility] Comment on above: Performed By: #### C BCA, CMP, THYR #### [facility] ([id number]) [address] [place] [address] 41947 #### 2857-1, 46919-7, 21099-3 #### [facility] ([id number]) [address], [address] [place] [address] ABSOLUTE NEUTROPHIL 4.3 X10E9/L Normal 1.5-6.6 [facility] Comment on above: Performed By: #### C BCA, CMP, THYR #### [facility] ([id number]) [address] [place] [address] 71270 #### 2857-1, 45503-3, 59987-7 #### [facility] ([id number]) [address], [address] [place] [address] Basophils/100 WBC (Bld) 0.5 % Normal [facility] Comment on above: Performed By: #### C BCA, CMP, THYR #### [facility] ([id number]) [address] [place] [address] 74675 #### 2857-1, 16060-5, 45286-5 #### [facility] ([id number]) [address], [address] [place] [address] Eosinophils (Bld) [#/Vol] 0.0 10*3/uL Normal 0.0-0.4 [facility] Comment on above: Performed By: #### C BCA, CMP, THYR #### [facility] ([id number]) [address] [place] [address] 39076 #### 2857-1, 84496-0, 13176-0 #### [facility] ([id number]) [address], [address] [place] [address] Eosinophils/100 WBC (Bld) 0.7 % Normal [facility] Comment on above: Performed By: #### C BCA, CMP, THYR #### [facility] ([id number]) [address] [place] [address] 27986 #### 2857-1, 78078-4, 72305-8 #### [facility] ([id number]) [address] [facility], [address] [place] [address] Erythrocyte distribution width (RBC) [Ratio] 15.8 % High 11.5-15.0 [facility] Comment on above: Performed By: #### C BCA, CMP, THYR #### [facility] ([id number]) [address] [place] [address] 56007 #### 2857-1, 40077-1, 45808-2 #### [facility] ([id number]) [address], [address] [place] [address] Hematocrit (Bld) [Volume fraction] 39.8 % Normal 39-49 [facility] Comment on above: Performed By: #### C BCA, CMP, THYR #### [facility] ([id number]) [address] [place] [address] 26126 #### 2857-1, 16789-8, 11562-6 #### [facility] ([id number]) [address], [address] [place] [address] Hemoglobin (Bld) [Mass/Vol] 13.2 g/dL Normal 13.0-17.0 [facility] Comment on above: Performed By: #### C BCA, CMP, THYR #### [facility] ([id number]) [address] [place] [address] 47804 #### 2857-1, 97619-0, 31002-0 #### [facility] ([id number]) [address], [address] [place] [address] Lymphocytes (Bld) [#/Vol] 1.1 10*3/uL Normal 1.0-3.5 [facility] Comment on above: Performed By: #### C BCA, CMP, THYR #### [facility] ([id number]) [address] [place] [address] 24378 #### 2857-1, 49880-7, 92318-7 #### [facility] ([id number]) [address], [address] [place] [address] Lymphocytes/100 WBC (Bld) 17.7 % Normal [facility] Comment on above: Performed By: #### C BCA, CMP, THYR #### [facility] ([id number]) [address] [place] [address] 37159 #### 2857-1, 28090-1, 64983-4 #### [facility] ([id number]) [address], [address] [place] [address] MCH (RBC) [Entitic mass] 29.8 pg Normal 27-34 [facility] Comment on above: Performed By: #### C BCA, CMP, THYR #### [facility] ([id number]) [address] [place] [address] 38336 #### 2857-1, 57064-6, 01467-3 #### [facility] ([id number]) [address], [address] [place] [address] MCHC (RBC) [Mass/Vol] 33.1 g/dL Normal 32-36 [facility] Comment on above: Performed By: #### C BCA, CMP, THYR #### [facility] ([id number]) [address] [place] [address] 08633 #### 2857-1, 44443-7, 63094-7 #### [facility] ([id number]) [address], [address] [place] [address] MCV (RBC) [Entitic vol] 90 fL Normal 80-100 [facility] Comment on above: Performed By: #### C BCA, CMP, THYR #### [facility] ([id number]) [address] [place] [address] 08451 #### 2857-1, 20095-3, 75404-7 #### [facility] ([id number]) [address] [place] [address] Monocytes (Bld) [#/Vol] 0.8 10*3/uL Normal 0-0.9 [facility] Comment on above: Performed By: #### C BCA, CMP, THYR #### [facility] ([id number]) [address] [place] [address] 70361 #### 2857-1, 77976-3, 15082-7 #### [facility] ([id number]) [address], [address] [place] [address] Monocytes/100 WBC (Bld) 12.8 % Normal [facility] Comment on above: Performed By: #### C BCA, CMP, THYR #### [facility] ([id number]) [address] [place] [address] 24308 #### 2857-1, 10228-1, 76520-0 #### [facility] ([id number]) [address] [place] [address] Neutrophils/100 WBC (Bld) 68.3 % Normal [facility] Comment on above: Performed By: #### C BCA, CMP, THYR #### [facility] ([id number]) [address] [place] [address] 69408 #### 2857-1, 02651-0, 31019-9 #### [facility] ([id number]) [address], [address] [place] [address] Platelet mean volume (Bld) [Entitic vol] 7.8 fL Normal 7-12 [facility] Comment on above: Performed By: #### C BCA, CMP, THYR #### [facility] ([id number]) [address] [place] [address] 81021 #### 2857-1, 25435-9, 05743-7 #### [facility] ([id number]) [address], [address] [place] [address] Platelets (Bld) [#/Vol] 259 10*3/uL Normal 150-450 [facility] Comment on above: Performed By: #### C BCA, CMP, THYR #### [facility] ([id number]) [address] [place] [address] 42797 #### 2857-1, 83801-6, 07283-0 #### [facility] ([id number]) [address] [place] [address] RBC COUNT 4.42 X10E12/L Normal 4.10-5.70 [facility] Comment on above: Performed By: #### C BCA, CMP, THYR #### [facility] ([id number]) [address] [place] [address] 00614 #### 2857-1, 05335-9, 11333-3 #### [facility] ([id number]) [address] [place] [address] WBC (Bld) [#/Vol] 6.2 10*3/uL Normal 4.0-11.0 [facility] Comment on above: Performed By: #### C BCA, CMP, THYR #### [facility] ([id number]) [address] [place] [address] 69073 #### 2857-1, 96361-3, 11043-3 #### [facility] ([id number]) [address] [facility], [address] [place] [address] COMPREHENSIVE METABOLIC PANE Alex 09-22-2023 Albumin [Mass/Vol] 4.2 g/dL Normal 3.2-5.3 [facility] Comment on above: Performed By: #### C BCA, CMP #### [facility] ([id number]) [address] [place] [address] 17015 #### 2857-1, 01235-7, 77220-7, FEPR, 2276-4 #### [facility] ([id number]) [address] [facility] [address], [address] [place] [address] ALP [Catalytic activity/Vol] 41 U/L Normal 39-130 [facility] Comment on above: Performed By: #### C BCA, CMP #### [facility] ([id number]) [address] [place] [address] 59499 #### 2857-1, 84753-9, 80419-4, FEPR, 2276-4 #### [facility] ([id number]) [address] [facility], [address] [place] [address] ALT [Catalytic activity/Vol] 17 U/L Normal 0-40 [facility] Comment on above: Performed By: #### C BCA, CMP #### [facility] ([id number]) [address] [place] [address] 79599 #### 2857-1, 18352-1, 97230-4, FEPR, 2276-4 #### [facility] ([id number]) [address] [place] [address] Anion gap [Moles/Vol] 6 mmol/L Normal 5-15 [facility] Comment on above: Performed By: #### C BCA, CMP #### [facility] ([id number]) [address] [place] [address] 39887 #### 2857-1, 39347-5, 19044-5, FEPR, 2276-4 #### [facility] ([id number]) [address] [facility], [address] [place] [address] AST [Catalytic activity/Vol] 20 U/L Normal 0-41 [facility] Comment on above: Performed By: #### C BCA, CMP #### [facility] ([id number]) [address] [place] [address] 93859 #### 2857-1, 30828-4, 86931-3, FEPR, 2276-4 #### [facility] ([id number]) [address] [place] [address] Bilirubin [Mass/Vol] 0.4 mg/dL Normal 0.3-1.2 [facility] Comment on above: Performed By: #### C BCA, CMP #### [facility] ([id number]) [address] [place] [address] 48187 #### 2857-1, 27444-7, 50680-0, FEPR, 2276-4 #### [facility] ([id number]) [address] [place] [address] Calcium [Mass/Vol] 9.3 mg/dL Normal 8.5-10.5 [facility] Comment on above: Performed By: #### C BCA, CMP #### [facility] ([id number]) [address] [place] [address] 42612 #### 2857-1, 88098-2, 94033-2, FEPR, 2276-4 #### [facility] ([id number]) [address] [place] [address] Chloride [Moles/Vol] 103 mmol/L Normal 98-109 [facility] Comment on above: Performed By: #### C BCA, CMP #### [facility] ([id number]) [address] [place] [address] 83454 #### 2857-1, 64116-0, 47501-8, FEPR, 2276-4 #### [facility] ([id number]) [address] [place] [address] CO2 [Moles/Vol] 27 mmol/L Normal 22-32 [facility] Comment on above: Performed By: #### C BCA, CMP #### [facility] ([id number]) [address] [place] [address] 21609 #### 2857-1, 52873-3, 20040-9, FEPR, 2276-4 #### [facility] ([id number]) [address] [place] [address] Creatinine [Mass/Vol] 1.12 mg/dL Normal 0.70-1.20 [facility] Comment on above: Result Comment: METH OD TRACEABLE TO IDMS STANDARD Performed By: #### C BCA, CMP #### [facility] ([id number]) [address] [place] [address] 93950 #### 2857-1, 56371-3, 56844-1, FEPR, 2276-4 #### [facility] ([id number]) [address] [place] [address] GFR/1.73 sq M.predicted among non-blacks MDRD (S/P/Bld) [Vol rate/Area] 71 mL/min/{1.73_m2} Normal >59 [facility] Comment on above: Result Comment: Reported eGFR is based on the CKD-EPI 2020 equation that does not use a race coefficient. Performed By: #### C BCA, CMP #### [facility] ([id number]) [address] [place] [address] 86514 #### 2857-1, 36746-3, 39774-9, FEPR, 2276-4 #### [facility] ([id number]) [address] [facility], [address] [place] [address] Glucose [Mass/Vol] 178 mg/dL High 65-99 [facility] Comment on above: Performed By: #### C BCA, CMP #### [facility] ([id number]) [address] [place] [address] 35660 #### 2857-1, 05339-2, 09915-7, FEPR, 2276-4 #### [facility] ([id number]) [address] [facility], [address] [place] [address] Potassium [Moles/Vol] 4.6 mmol/L Normal 3.5-5.0 [facility] Comment on above: Performed By: #### C BCA, CMP #### [facility] ([id number]) [address] [place] [address] 19160 #### 2857-1, 49846-3, 60298-9, FEPR, 2276-4 #### [facility] ([id number]) [address] [place] [address] Protein [Mass/Vol] 7.8 g/dL Normal 6.0-8.0 [facility] Comment on above: Performed By: #### C BCA, CMP #### [facility] ([id number]) [address] [place] [address] 27118 #### 2857-1, 93875-4, 13070-4, FEPR, 2276-4 #### [facility] ([id number]) [address] [place] [address] Sodium [Moles/Vol] 136 mmol/L Normal 134-146 [facility] Comment on above: Performed By: #### C BCA, CMP #### [facility] ([id number]) [address] [place] [address] 39915 #### 2857-1, 84100-3, 04347-2, FEPR, 2276-4 #### [facility] ([id number]) [address] [facility], [address] [place] [address] Urea nitrogen [Mass/Vol] 18 mg/dL Normal 5-27 [facility] Comment on above: Performed By: #### C BCA, CMP #### [facility] ([id number]) [address] [place] [address] 19191 #### 2857-1, 20541-5, 43882-7, FEPR, 6-4 #### [facility] ([id number]) [address] [place] [address] HCV Ab IA Qlon 09-22-2023 ANTI HCV W/PCR REFLX Non-Reactive Normal NRCT [facility] Comment on above: Result Comment: If recent infection suspected, recommend repeat testing (>2 months). Hfiyvs-um-kyhzgp ratio is <0.80. Performed By: #### C BCA, CMP #### [facility] ([id number]) [address] [place] [address] 19151 #### 2857-1, 25735-1, 73752-4, FEPR, 2276-4 #### [facility] ([id number]) [address] [place] [address] HGB A1C (GLYCO-HGB)on 2023 Glucose [Mass/Vol] 180 mg/dL Normal [facility] Comment on above: Performed By: #### C GARDENIA, CMP #### [facility] ([id number]) [address] [place] [address] 22088 #### 2857-1, 57921-6, 09250-7, FEPR, 2276-4 #### [facility] ([id number]) [address], [address] [place] [address] HbA1c (Bld) [Mass fraction] 7.9 % High 4.4-5.6 [facility] Comment on above: Result Comment: NOTE ADA Guidelines Result HgbA1c Normal : less than 5.7 % Prediabetes : 5.7 % to 6.4 % Diabetes : > 6.4 % Use with caution in patients with abnormal hemoglobin variants as the half-life of red blood cells and in vivo glycation rates are affected. Performed By: #### C GARDENIA, CMP #### [facility] ([id number]) [address] [place] [address] 28557 #### 2857-1, 70096-9, 16286-3, FEPR, 2276-4 #### [facility] ([id number]) [address], [address] [place] [address] Prostate specific Ag [Mass/V ol]on 09-22-2023 PSA SCREEN 0.89 ng/mL Normal 0.00-4.00 [facility] Comment on above: Result Comment: The method used for this test is Louis Vivastream DXI chemiluminescent immunoassay. Values obtained by different assay methods cannot be used interchangeably. Performed By: #### C GARDENIA, CMP #### [facility] ([id number]) [address] [place] [address] 32380 #### 2857-1, 70319-7, 71181-5, FEPR, 2276-4 #### [facility] ([id number]) [address] [place] [address] THYROID PROFILEon 09-22-2023 Free T4 [Mass/Vol] 1.03 ng/dL Normal 0.61-1.60 [facility] Comment on above: Performed By: #### C BCA, CMP #### [facility] ([id number]) [address] [place] [address] 00558 #### 2857-1, 88501-0, 59536-5, FEPR, 2276-4 #### [facility] ([id number]) [address] [facility], [address] [place] [address] TSH 4.47 uIU/mL Normal 0.49-4.67 [facility] Comment on above: Performed By: #### C BCA, CMP #### [facility] ([id number]) [address] [place] [address] 06987 #### 2857-1, 57764-4, 24466-1, FEPR, 2276-4 #### [facility] ([id number]) [address] [place] [address] Vitamin D+Metabolites [Mass/ Vol]on 09-22-2023 VITAMIN D 25 HYD TOT 23.7 ng/mL Low 30-100 [facility] Comment on above: Result Comment: Vitamin D status 25 [place] Vitamin D Deficiency <20 ng/mL Insufficiency 20-29 ng/mL Sufficiency 30-100 ng/mL Toxicity >100 ng/mL NOTE: A pediatric reference range has not been established by the custom tailor apprentice of this kit. The [place] [employer] recommends a Vitamin D level of = or >20ng/mL in infants and children. Performed By: #### C BCA, CMP #### [facility] ([id number]) [address] [place] [address] 51522 #### 2857-1, 00276-4, 35992-5, FEPR, 2276-4 #### [facility] ([id number]) [address] [place] [address] CBC AND AUTO DIFFon 08-02-19 24 ABSOLUTE BASOPHIL 0.0 X10E9/L Normal 0.0-0.2 [facility] Comment on above: Performed By: #### C BCA, CMP #### [facility] ([id number]) [address] [place] [address] 15962 #### 2857-1, 31219-2, 20965-0, FEPR, 2276-4 #### [facility] ([id number]) [address], [address] [place] [address] ABSOLUTE NEUTROPHIL 4.4 X10E9/L Normal 1.5-6.6 [facility] Comment on above: Performed By: #### C BCA, CMP #### [facility] ([id number]) [address] [place] [address] #### 2857-1, 66461-2, 68398-4, FEPR, 2276-4 #### [facility] ([id number]) [address], [address] [place] [address] Basophils/100 WBC (Bld) 0.5 % Normal [facility] Comment on above: Performed By: #### C BCA, CMP #### [facility] ([id number]) [address] [place] [address] #### 2857-1, 48830-7, 38503-1, FEPR, 2276-4 #### [facility] ([id number]) [address], [address] [place] [address] Eosinophils (Bld) [#/Vol] 0.1 10*3/uL Normal 0.0-0.4 [facility] Comment on above: Performed By: #### C BCA, CMP #### [facility] ([id number]) [address] [place] [address] #### 2857-1, 27388-3, 06510-5, FEPR, 2276-4 #### [facility] ([id number]) [address], [address] [place] [address] Eosinophils/100 WBC (Bld) 0.9 % Normal [facility] Comment on above: Performed By: #### C BCA, CMP #### [facility] ([id number]) [address] [place] [address] #### 2857-1, 19944-4, 04201-0, FEPR, 2276-4 #### [facility] ([id number]) [address], [address] [place] [address] Erythrocyte distribution width (RBC) [Ratio] 15.7 % High 11.5-15.0 [facility] Comment on above: Performed By: #### C BCA, CMP #### [facility] ([id number]) [address] [place] [address] #### 2857-1, 85768-5, 50645-7, FEPR, 2276-4 #### [facility] ([id number]) [address], [address] [place] [address] Hematocrit (Bld) [Volume fraction] 38.3 % Low 39-49 [facility] Comment on above: Performed By: #### C BCA, CMP #### [facility] ([id number]) [address] [place] [address] 21269 #### 2857-1, 13386-6, 94596-1, FEPR, 2276-4 #### [facility] ([id number]) [address], [address] [place] [address] Hemoglobin (Bld) [Mass/Vol] 12.5 g/dL Low 13.0-17.0 [facility] Comment on above: Performed By: #### C BCA, CMP #### [facility] ([id number]) [address] [place] [address] 90789 #### 2857-1, 77288-5, 97173-8, FEPR, 2276-4 #### [facility] ([id number]) [address], [address] [place] [address] Lymphocytes (Bld) [#/Vol] 1.2 10*3/uL Normal 1.0-3.5 [facility] Comment on above: Performed By: #### C BCA, CMP #### [facility] ([id number]) [address] [place] [address] 43967 #### 2857-1, 00509-6, 23299-3, FEPR, 2276-4 #### [facility] ([id number]) [address], [address] [place] [address] Lymphocytes/100 WBC (Bld) 18.4 % Normal [facility] Comment on above: Performed By: #### C BCA, CMP #### [facility] ([id number]) [address] [place] [address] 66125 #### 2857-1, 39045-9, 06859-8, FEPR, 2276-4 #### [facility] ([id number]) [address], [address] [place] [address] MCH (RBC) [Entitic mass] 29.1 pg Normal 27-34 [facility] Comment on above: Performed By: #### C BCA, CMP #### [facility] ([id number]) [address] [place] [address] 87802 #### 2857-1, 62036-6, 35748-6, FEPR, 2276-4 #### [facility] ([id number]) [address], [address] [place] [address] MCHC (RBC) [Mass/Vol] 32.7 g/dL Normal 32-36 [facility] Comment on above: Performed By: #### C BCA, CMP #### [facility] ([id number]) [address] [place] [address] 87244 #### 2857-1, 12564-5, 63341-3, FEPR, 2276-4 #### [facility] ([id number]) [address], [address] [place] [address] MCV (RBC) [Entitic vol] 89 fL Normal 80-100 [facility] Comment on above: Performed By: #### C BCA, CMP #### [facility] ([id number]) [address] [place] [address] 64460 #### 2857-1, 11535-2, 80895-3, FEPR, 2276-4 #### [facility] ([id number]) [address], [address] [place] [address] Monocytes (Bld) [#/Vol] 1.0 10*3/uL High 0-0.9 [facility] Comment on above: Performed By: #### C BCA, CMP #### [facility] ([id number]) [address] [place] [address] 00653 #### 2857-1, 77951-2, 78485-1, FEPR, 2276-4 #### [facility] ([id number]) [address], [address] [place] [address] Monocytes/100 WBC (Bld) 14.3 % Normal [facility] Comment on above: Performed By: #### C GARDENIA, CMP #### [facility] ([id number]) [address] [place] [address] 80446 #### 2857-1, 86809-3, 79554-2, FEPR, 2276-4 #### [facility] ([id number]) [address] [place] [address] Neutrophils/100 WBC (Bld) 65.9 % Normal [facility] Comment on above: Performed By: #### C GARDENIA, CMP #### [facility] ([id number]) [address] [place] [address]01 #### 2857-1, 25931-6, 18776-5, FEPR, 2276-4 #### [facility] ([id number]) [address] [facility], [address] [place] [address] Platelet mean volume (Bld) [Entitic vol] 8.3 fL Normal 7-12 [facility] Comment on above: Performed By: #### Jerry VARNER, CMP #### [facility] ([id number]) [address] [place] [address] 71804 #### 2857-1, 38887-9, 01557-9, FEPR, 2276-4 #### [facility] ([id number]) [address] [place] [address] Platelets (Bld) [#/Vol] 271 10*3/uL Normal 150-450 [facility] Comment on above: Performed By: #### C GARDENIA, CMP #### [facility] ([id number]) [address] [place] [address] 22731 #### 2857-1, 36512-1, 86765-1, FEPR, 2276-4 #### [facility] ([id number]) [address] [place] [address] RBC COUNT 4.31 X10E12/L Normal 4.10-5.70 [facility] Comment on above: Performed By: #### C BCA, CMP #### [facility] ([id number]) [address] [place] [address] 67976 #### 2857-1, 67568-0, 56630-6, FEPR, 2276-4 #### [facility] ([id number]) [address] [facility], [address] [place] [address] WBC (Bld) [#/Vol] 6.7 10*3/uL Normal 4.0-11.0 [facility] Comment on above: Performed By: #### C BCA, CMP #### [facility] ([id number]) [address] [place] [address] 55844 #### 2857-1, 84698-7, 14247-4, FEPR, 2276-4 #### [facility] ([id number]) [address] [facility], [address] [place] [address] COMPREHENSIVE METABOLIC PANE Alex 08-02-2023 Albumin [Mass/Vol] 3.8 g/dL Normal 3.2-5.3 [facility] Comment on above: Performed By: #### C BCA, CMP #### [facility] ([id number]) [address] [place] [address] 27847 #### 2857-1, 96134-2, 81610-0, FEPR, 2276-4 #### [facility] ([id number]) [address] [place] [address] ALP [Catalytic activity/Vol] 48 U/L Normal 39-130 [facility] Comment on above: Performed By: #### C BCA, CMP #### [facility] ([id number]) [address] [place] [address] 35973 #### 2857-1, 67410-6, 10754-5, FEPR, 2276-4 #### [facility] ([id number]) [address] [place] [address] ALT [Catalytic activity/Vol] 18 U/L Normal 0-40 [facility] Comment on above: Performed By: #### C BCA, CMP #### [facility] ([id number]) [address] [place] [address] 97072 #### 2857-1, 00587-3, 06691-2, FEPR, 2276-4 #### [facility] ([id number]) [address] [place] [address] Anion gap [Moles/Vol] 9 mmol/L Normal 5-15 [facility] Comment on above: Performed By: #### C BCA, CMP #### [facility] ([id number]) [address] [place] [address] 27270 #### 2857-1, 92721-3, 71734-9, FEPR, 2276-4 #### [facility] ([id number]) [address] [place] [address] AST [Catalytic activity/Vol] 24 U/L Normal 0-41 [facility] Comment on above: Performed By: #### C BCA, CMP #### [facility] ([id number]) [address] [place] [address] 62474 #### 2857-1, 79017-5, 58151-2, FEPR, 2276-4 #### [facility] ([id number]) [address] [place] [address] Bilirubin [Mass/Vol] 0.6 mg/dL Normal 0.3-1.2 [facility] Comment on above: Performed By: #### C BCA, CMP #### [facility] ([id number]) [address] [place] [address] 91145 #### 2857-1, 08222-7, 28069-4, FEPR, 2276-4 #### [facility] ([id number]) [address] [place] [address] Calcium [Mass/Vol] 9.0 mg/dL Normal 8.5-10.5 [facility] Comment on above: Performed By: #### C BCA, CMP #### [facility] ([id number]) [address] [place] [address] 68530 #### 2857-1, 09582-4, 84943-9, FEPR, 2276-4 #### [facility] ([id number]) [address] [place] [address] Chloride [Moles/Vol] 98 mmol/L Normal 98-109 [facility] Comment on above: Performed By: #### C BCA, CMP #### [facility] ([id number]) [address] [place] [address] 58663 #### 2857-1, 96867-5, 16797-9, FEPR, 2276-4 #### [facility] ([id number]) [address] [place] [address] CO2 [Moles/Vol] 28 mmol/L Normal 22-32 [facility] Comment on above: Performed By: #### C BCA, CMP #### [facility] ([id number]) [address] [place] [address] 42665 #### 2857-1, 76058-1, 97426-3, FEPR, 2276-4 #### [facility] ([id number]) [address] [place] [address] Creatinine [Mass/Vol] 0.93 mg/dL Normal 0.70-1.20 [facility] Comment on above: Result Comment: METH OD TRACEABLE TO IDMS STANDARD Performed By: #### C BCA, CMP #### [facility] ([id number]) [address] [place] [address] 78665 #### 2857-1, 06067-6, 47390-3, FEPR, 2276-4 #### [facility] ([id number]) [address] [place] [address] GFR/1.73 sq M.predicted among non-blacks MDRD (S/P/Bld) [Vol rate/Area] 89 mL/min/{1.73_m2} Normal >59 [facility] Comment on above: Result Comment: Reported eGFR is based on the CKD-EPI 2020 equation that does not use a race coefficient. Performed By: #### C BCA, CMP #### [facility] ([id number]) [address] [place] [address] 33105 #### 2857-1, 30299-0, 22804-0, FEPR, 2276-4 #### [facility] ([id number]) [address] [facility], [address] [place] [address] Glucose [Mass/Vol] 193 mg/dL High 65-99 [facility] Comment on above: Performed By: #### C BCA, CMP #### [facility] ([id number]) [address] [place] [address] 97617 #### 2857-1, 36446-7, 17399-6, FEPR, 2276-4 #### [facility] ([id number]) [address] [place] [address] Potassium [Moles/Vol] 4.8 mmol/L Normal 3.5-5.0 [facility] Comment on above: Performed By: #### C BCA, CMP #### [facility] ([id number]) [address] [place] [address] 14299 #### 2857-1, 73600-1, 95911-2, FEPR, 2276-4 #### [facility] ([id number]) [address] [place] [address] Protein [Mass/Vol] 7.8 g/dL Normal 6.0-8.0 [facility] Comment on above: Performed By: #### C BCA, CMP #### [facility] ([id number]) [address] [place] [address] 70163 #### 2857-1, 82206-8, 37945-3, FEPR, 2276-4 #### [facility] ([id number]) [address] [place] [address] Sodium [Moles/Vol] 135 mmol/L Normal 134-146 [facility] Comment on above: Performed By: #### C BCA, CMP #### [facility] ([id number]) [address] [place] [address] 33421 #### 2857-1, 24973-7, 76761-9, FEPR, 2276-4 #### [facility] ([id number]) [address] [place] [address] Urea nitrogen [Mass/Vol] 20 mg/dL Normal 5-27 [facility] Comment on above: Performed By: #### C BCA, CMP #### [facility] ([id number]) [address] [place] [address] 21963 #### 2857-1, 67826-4, 76309-6, FEPR, 2276-4 #### [facility] ([id number]) [address] [place] [address] FERRITINon 08-02-2023 Ferritin [Mass/Vol] 29 ng/mL Normal 24-336 [facility] Comment on above: Performed By: #### C BCA, CMP #### [facility] ([id number]) [address] [place] [address] 66815 #### 2857-1, 70424-2, 40425-8, FEPR, 2276-4 #### [facility] ([id number]) [address] [place] [address] HCV Ab IA Qlon 08-02-2023 ANTI HCV W/PCR REFLX Non-Reactive Normal NRCT [facility] Comment on above: Result Comment: If recent infection suspected, recommend repeat testing (>2 months). Tirpqf-jk-bobnhi ratio is <0.80. Performed By: #### C BCA, CMP #### [facility] ([id number]) [address] [place] [address] 19036 #### 2857-1, 32534-7, 75729-7, FEPR, 2276-4 #### [facility] ([id number]) [address] [facility], [address] [place] [address] HGB A1C (GLYCO-HGB)on 2023 Glucose [Mass/Vol] 189 mg/dL Normal [facility] Comment on above: Performed By: #### C BCA, CMP #### [facility] ([id number]) [address] [place] [address] 49129 #### 2857-1, 45198-3, 54696-4, FEPR, 2276-4 #### [facility] ([id number]) [address] [facility], [address] [place] [address] HbA1c (Bld) [Mass fraction] 8.2 % High 4.4-5.6 [facility] Comment on above: Result Comment: NOTE ADA Guidelines Result HgbA1c Normal : less than 5.7 % Prediabetes : 5.7 % to 6.4 % Diabetes : > 6.4 % Use with caution in patients with abnormal hemoglobin variants as the half-life of red blood cells and in vivo glycation rates are affected. Performed By: #### C BCA, CMP #### [facility] ([id number]) [address] [place] [address] 52823 #### 2857-1, 65820-7, 92371-7, FEPR, 2276-4 #### [facility] ([id number]) [address] [place] [address], [address] [place] [address] IRON PROFILEon 08-02-2023 Iron [Mass/Vol] 47 ug/dL Low 50-212 [facility] Comment on above: Performed By: #### C BCA, CMP #### [facility] ([id number]) [address] [place] [address] 64022 #### 2857-1, 62190-2, 20467-8, FEPR, 2276-4 #### [facility] ([id number]) [address] [place] [address] IRON BINDING 379 ug/dL Normal 250-425 [facility] Comment on above: Performed By: #### C BCA, CMP #### [facility] ([id number]) [address] [place] [address] 03278 #### 2857-1, 18805-9, 58204-3, FEPR, 2276-4 #### [facility] ([id number]) [address] [place] [address], [address] [address] IRON SATURATION 12 % SATURATION Low 20-50 [facility] Comment on above: Performed By: #### C BCA, CMP #### [facility] ([id number]) [address] [place] [address] 67269 #### 2857-1, 85531-2, 51712-5, FEPR, 2276-4 #### [facility] ([id number]) [address] [facility] [address] [place] [address] Prostate specific Ag [Mass/V ol]on 08-02-2023 PSA SCREEN 0.52 ng/mL Normal 0.00-4.00 [facility] Comment on above: Result Comment: The method used for this test is Louis Riana DXI chemiluminescent immunoassay. Values obtained by different assay methods cannot be used interchangeably. Performed By: #### C GARDENIA, CMP #### [facility] ([id number]) [address] [place] [address] 32569 #### 2857-1, 93658-4, 93012-9, FEPR, 2276-4 #### [facility] ([id number]) [facility], [address] [address] Vitamin D+Metabolites [Mass/ Vol]on 08-02-2023 VITAMIN D 25 HYD TOT 19.2 ng/mL Low 30-100 [facility] Comment on above: Result Comment: Vitamin D status 25 [place] Vitamin D Deficiency <20 ng/mL Insufficiency 20-29 ng/mL Sufficiency 30-100 ng/mL Toxicity >100 ng/mL NOTE: A pediatric reference range has not been established by the custom tailor apprentice of this kit. The [place] [employer] recommends a Vitamin D level of = or >20ng/mL in infants and children. Performed By: #### C BCA, CMP #### [facility] ([id number]) [address] [place] [address] 20589 #### 2857-1, 73825-5, 13150-9, FEPR, 2276-4 #### [facility] ([id number]) [facility] [address] [place] [address] XR SPINE CERVICAL 3 VWS OR L ESSon 06-29-2023 XR SPINE CERVICAL 3 VWS OR [...] Ash MD on 06/29/2023 3:36 PM Normal [facility] Encounters Encounter Date Encounter Type Care Provider Facility Start: 02-22-2024 End: 02-22-2024 ambulatory [facility] Start: 01-09-2024 End: 01-09-2024 ambulatory [facility] Start: 12-26-2023 End: 12-27-2023 Emergency department patient visit DIVYA Valera JESSICACHIQUISMARIA E [facility] Start: 09-22-2023 End: 09-22-2023 ambulatory [facility] Start: 08-02-2023 End: 08-02-2023 [facility] Start: 06-29-2023 End: 06-29-2023 ambulatory [facility] Start: 06-29-2023 End: 06-30-2023 ambulatory [facility] Start: 11-14-2022 End: 11-15-2022 ambulatory [facility] Facility:[facility] Start: 10-24-2022 End: 10-25-2022 ambulatory [facility] Facility:[facility] Start: 10-03-2022 End: 10-04-2022 ambulatory [facility] Facility:[facility] Start: 09-12-2022 End: 09-13-2022 ambulatory CHET FOURNIER Facility:[facility] Start: 08-23-2022 End: 08-24-2022 ambulatory [facility] Facility:[facility] Start: 08-16-2022 End: 08-17-2022 ambulatory MARIANA PHILLIPS Facility:[facility]1 Start: 08-09-2022 End: 08-10-2022 ambulatory MARIANA PHILLIPS Facility:[facility]1 Payers Date Payer Category Payer Medicaid [id number] 1960 Medicare [id number] 1955 Unknown [id number] 2.16.84 0.1.771742.3.579.2.593 1954 Unknown [id number] 2.16.84 0.1.682052.3.579.2.593 1954 Unknown [id number] 2.16.84 0.1.629604.3.579.2.593 1954 Unknown [id number] 2.16.84 0.1.267821.3.579.2.593 1954 Unknown [id number] 2.16.84 0.1.867487.3.579.2.593 1954 Unknown [id number] 2.16.84 0.1.324676.3.579.2.593 1954 Unknown [id number] 2.16.84 0.1.031199.3.579.2.593 1954 Unknown [id number] 2.16.8 40.1.962820.3.579.2.1286 1954 Unknown [id number] 2.16.8 40.1.369608.3.579.2.1286 1954 Unknown [id number] 2.16.8 40.1.323591.3.579.2.1286 1954 Unknown [id number] 2.16.8 40.1.047351.3.579.2.1286 1954 Unknown [id number] 2.16.8 40.1.130214.3.579.2.1286 1954 Unknown [id number] 2.16.8 40.1.425622.3.579.2.128 1954 Unknown [id number] 2.16.8 40.1.444165.3.579.2.1286 1954 Unknown [id number] 2.16.84 0.1.281413.3.579.2.1286 1954 Unknown [id number] 2.16.84 0.1.235842.3.579.2.1286 Clinical Note 08-09-2022 Note Date & Type [...] by: EDILSON DON Date: 2022-08-09 15:44 [facility] Summary Purpose Family History No Family History Records FoundNo Family History Records Found Advance Directives No Advanced Directives Records FoundNo Advanced Directives Records Found Additional Source Comments (unrecognized sect ion and content) No Status Records FoundNo Status Records Found INFORMATION SOURCE (unrecogn ized section and content) DATE CREATED AUTHOR 11/16/[address] [facility] DATE CREATED AUTHOR AUTHOR'S GLENYSIZ ATMEI 02/24/2024 [facility] FOR RECORDS PERTAINING TO PATIENTS WHO [...] PRIMARY CLINICAL RECORDS. [facility] Content [facility]. provides no warranty or guarantee of the accuracy or completeness of information in this document.
== END 2024-03-22 10:16 | disposition home or self-care (01) ==
LOC: WC 10:15
PROVIDERS: Visit Provider Podiatrist Foot & Ankle Surgery
DX: M79.672 Pain in left foot (principal); E11.621 Type 2 diabetes mellitus with foot ulcer; L97.421 Non-pressure chronic ulcer of left heel and midfoot limited to breakdown of skin
CPT/HCPCS: 73630; A6213; G0463

== ENCOUNTER 2024-04-15 11:45 | Outpatient (OUT) | payer MEDICARE, MEDICAID, SELFPAY ==
--- OUTSIDE RECORDS SUMMARY | 2024-04-15 12:04 | XMS_ITS | CCD ---
Author Organization [facility] Care Team Providers Care Owner Operator Name Role Phone MARIANA PHILLIPS Attending Unavailable HIGHLANDER, AMRIANA Liu Admitting Unavailable HIGHLANDER, MARIANA Liu Attending Unavailable HIGHLANDER, MARIANA Liu Admitting Unavailable HIGHLANDER, MARIANA Liu Admitting Unavailable HIGHLANDER, MARIANA Liu Attending Unavailable SHANTANUCHET Admitting Unavailable SHANTANUCHET Attending Unavailable HIGHLANDERMARIANA Admitting Unavailable HIGHLANDER, MARIANA Liu Attending Unavailable HIGHLANDERMARIANA Admitting Unavailable ZIEBER, DR EDILSON Jerez Consulting Unavailable HIGHLANDER, MARIANA Liu Attending Unavailable HIGHLANDERMARIANA Consulting Unavailable HIGHLANDERMARIANA Admitting Unavailable HIGHLANDER, MARIANA Liu Consulting Unavailable HIGHLANDERMARIANA Attending Unavailable ANGLIM, IZZY A Referring Unavailable ANGLIM, IZZY A Primary Care Unavailable ANGLIM, IZZY A Referring Unavailable ANGLIM, IZZY A Primary Care Unavailable ANGLIM, IZZY A Referring Unavailable ANGLIM, IZZY A Primary Care Unavailable CHEHADEDIVYA Attending Unavailable [facility] Primary Care Unava ilable CHEDIVYA DURBIN Attending Unavailable CHEHADIVYA SANDERSON Referring Unavailable [facility] Primary Care Unava ilable CHEHADIVYA SANDERSON Attending Unavailable CHEHADEDIVYA Referring Unavailable [facility], [facility] Primary Care Unava ilable ANGLIM, IZZY A Referring Unavailable ANGLIM, IZZY A Primary Care Unavailable BEBETO ROMANO Attending Unavailable JACKIE BARRERA Referring Unavailable [facility] Primary Care Unava ilable BEBETO ROMANO Attending Unavailable NAY MOSLEY Referring Unavailable SERVICES, Counts include 234 beds at the [facility] Care Unava ilable BEBETO ROMANO Attending Unavailable BEBETO ROMANO Referring Unavailable [facility], [facility] Primary Care Unava ilable BEBETO ROMANO Attending Unavailable NAY MOSLEY Referring Unavailable SERVICES, [facility] Unava ilable Problems Active Problems Problem Classification Problem Date [...] (1 source) Flank pain Onset: 12-26-2023 Episodic Immunizations and screening for infectious disease (1 [...] Name Value Interpretation Reference Range Facil ity MR LUMBAR SPINE WO CONTon MR LUMBAR SPINE WO CONT MR LUMBAR SPINE WO CONT EXAM: MRI LUMBAR SPINE WITHOUT CONTRAST CLINICAL HISTORY: TECHNIQUE: Routine unenhanced MRI of the lumbar spine was obtained. COMPARISONS: Radiographs dated 12/26/2023 FINDINGS: The lumbar spine maintains a normal lordotic curvature. There is chronic mild degenerative retrolisthesis of L2 on L3. There is minimal physiologic anterior wedging of the T11 and T12 vertebral bodies. The lumbar vertebral body heights are normal. There is localized moderately severe loss of the L4-5 disc space height with localized mild degenerative endplate fatty marrow replacement. There are no worrisome bone marrow signal abnormalities. There are no signal abnormalities of the visualized distal spinal cord. The conus is normal in appearance and location, terminating at the L1-L2 level. Individual disc space levels: L1-L2: A minimal disc bulge barely flattens the thecal sac. There is mild narrowing of the right neural foramen. L2-L3: There is mild degenerative retrolisthesis. There is a disc bulge and endplate osteophyte complex with a superimposed left paracentral disc protrusion. There is moderate narrowing of the neural foramina. There is mild facet osteoarthropathy. L3-L4: There is a disc bulge and mild facet osteoarthropathy. There is mild narrowing of the right neural foramen. L4-L5: There is moderate facet osteoarthropathy and a disc bulge and endplate osteophyte complex resulting in moderate moderate narrowing of the neural foramina. There is a superimposed right paracentral disc protrusion. This minimally displaces without frankly impinging the right L5 nerve root in the lateral recess. L5-S1: There is unilateral right L5 spondylolysis without significant spondylolisthesis. There is severe facet osteoarthropathy and a chronic disc bulge and endplate osteophyte complex. There is moderately severe narrowing of the neural foramina for the exiting L5 nerve roots. IMPRESSION: 1. Chronic degenerative disc disease and facet osteoarthropathy in the lumbar spine, as detailed above. 2. L5-S1, there is unilateral right L5 spondylolysis without spondylolisthesis. There is a disc bulge and endplate osteophyte complex and facet osteoarthropathy resulting in moderately severe narrowing of the neural foramina for the exiting L5 nerve roots. 3. At L4-L5, a right paracentral disc protrusion minimally displaces without scot impinging the right L5 nerve root in the lateral recess. 4. Moderate narrowing of the L2-3 and L4-5 neural foramina. Finalized by Baldo Stephens MD on 04/01/2024 10:47 PM Normal [facility] XR HIP LT 2-3 VIEWS W OR [...] Stan Jaramillo MD on 12/26/2023 10:07 AM Normal [facility] XR SPINE LUMBAR 2 OR 3 VWSon [...] Jaramillo MD on 12/26/2023 10:10 AM Normal [facility] CBC AND AUTO DIFFon 09-22-19 ABSOLUTE BASOPHIL 0.0 X10E9/L Normal 0.0-0.2 [facility] Comment on above: Performed By: #### C BCA, CMP, THYR #### [facility] ([id number]) [address] [place] [address] 97825 #### 2857-1, 32708-1, 37609-0 #### [facility] ([id number]) [address], [address] [place] [address] ABSOLUTE NEUTROPHIL 4.3 X10E9/L Normal 1.5-6.6 [facility] Comment on above: Performed By: #### C BCA, CMP, THYR #### [facility] ([id number]) [address] [place] [address] 52362 #### 2857-1, 05831-1, 94018-7 #### [facility] ([id number]) [address] [place] [address] Basophils/100 WBC (Bld) 0.5 % Normal [facility] Comment on above: Performed By: #### C BCA, CMP, THYR #### [facility] ([id number]) [address] [place] [address] 67259 #### 2857-1, 91665-3, 34445-6 #### [facility] ([id number]) [address], [address] [place] [address] Eosinophils (Bld) [#/Vol] 0.0 10*3/uL Normal 0.0-0.4 [facility] Comment on above: Performed By: #### C BCA, CMP, THYR #### [facility] ([id number]) [address] [place] [address] 48911 #### 2857-1, 04114-8, 67500-8 #### [facility] ([id number]) [address], [address] [place] [address] Eosinophils/100 WBC (Bld) 0.7 % Normal [facility] Comment on above: Performed By: #### C BCA, CMP, THYR #### [facility] ([id number]) [address] [place] [address] 24693 #### 2857-1, 52279-3, 36938-2 #### [facility] ([id number]) [address], [address] [place] [address] Erythrocyte distribution width (RBC) [Ratio] 15.8 % High 11.5-15.0 [facility] Comment on above: Performed By: #### C BCA, CMP, THYR #### [facility] ([id number]) [address] [place] [address] 08448 #### 2857-1, 14229-3, 82108-4 #### [facility] ([id number]) [address], [address] [place] [address] Hematocrit (Bld) [Volume fraction] 39.8 % Normal 39-49 [facility] Comment on above: Performed By: #### C BCA, CMP, THYR #### [facility] ([id number]) [address] [place] [address] 59384 #### 2857-1, 21728-2, 36973-6 #### [facility] ([id number]) [address], [address] [place] [address] Hemoglobin (Bld) [Mass/Vol] 13.2 g/dL Normal 13.0-17.0 [facility] Comment on above: Performed By: #### C BCA, CMP, THYR #### [facility] ([id number]) [address] [place] [address] 52480 #### 2857-1, 67668-3, 69454-9 #### [facility] ([id number]) [address], [address] [place] [address] Lymphocytes (Bld) [#/Vol] 1.1 10*3/uL Normal 1.0-3.5 [facility] Comment on above: Performed By: #### C BCA, CMP, THYR #### [facility] ([id number]) [address] [place] [address] 44645 #### 2857-1, 41054-9, 69587-4 #### [facility] ([id number]) [address], [address] [place] [address] Lymphocytes/100 WBC (Bld) 17.7 % Normal [facility] Comment on above: Performed By: #### C BCA, CMP, THYR #### [facility] ([id number]) [address] [place] [address] 97359 #### 2857-1, 94854-2, 82932-6 #### [facility] ([id number]) [address], [address] [place] [address] MCH (RBC) [Entitic mass] 29.8 pg Normal 27-34 [facility] Comment on above: Performed By: #### C BCA, CMP, THYR #### [facility] ([id number]) [address] [place] [address] 39422 #### 2857-1, 47166-7, 17423-1 #### [facility] ([id number]) [address], [address] [place] [address] MCHC (RBC) [Mass/Vol] 33.1 g/dL Normal 32-36 [facility] Comment on above: Performed By: #### C BCA, CMP, THYR #### [facility] ([id number]) [address] [place] [address] 71114 #### 2857-1, 77678-0, 93593-1 #### [facility] ([id number]) [address], [address] [place] [address] MCV (RBC) [Entitic vol] 90 fL Normal 80-100 [facility] Comment on above: Performed By: #### C BCA, CMP, THYR #### [facility] ([id number]) [address] [place] [address] 70597 #### 2857-1, 18952-4, 42299-7 #### [facility] ([id number]) [address], [address] [place] [address] Monocytes (Bld) [#/Vol] 0.8 10*3/uL Normal 0-0.9 [facility] Comment on above: Performed By: #### C BCA, CMP, THYR #### [facility] ([id number]) [address] [place] [address] 06147 #### 2857-1, 42937-9, 15705-8 #### [facility] ([id number]) [address], [address] [place] [address] Monocytes/100 WBC (Bld) 12.8 % Normal [facility] Comment on above: Performed By: #### C BCA, CMP, THYR #### [facility] ([id number]) [address] [place] [address] 45041 #### 2857-1, 63077-6, 49333-8 #### [facility] ([id number]) [address], [address] [place] [address] Neutrophils/100 WBC (Bld) 68.3 % Normal [facility] Comment on above: Performed By: #### C BCA, CMP, THYR #### [facility] ([id number]) [address] [place] [address] 86905 #### 2857-1, 95556-8, 73521-4 #### [facility] ([id number]) [address], [address] [place] [address] Platelet mean volume (Bld) [Entitic vol] 7.8 fL Normal 7-12 [facility] Comment on above: Performed By: #### C BCA, CMP, THYR #### [facility] ([id number]) [address] [place] [address] 37420 #### 2857-1, 17525-2, 72905-1 #### [facility] ([id number]) [address], [address] [place] [address] Platelets (Bld) [#/Vol] 259 10*3/uL Normal 150-450 [facility] Comment on above: Performed By: #### C BCA, CMP, THYR #### [facility] ([id number]) [address] [place] [address] 10780 #### 2857-1, 72547-0, 99878-7 #### [facility] ([id number]) [address], [address] [place] [address] RBC COUNT 4.42 X10E12/L Normal 4.10-5.70 [facility] Comment on above: Performed By: #### C BCA, CMP, THYR #### [facility] ([id number]) [address] [place] [address] 26588 #### 2857-1, 40589-1, 75880-6 #### [facility] ([id number]) [address], [address] [place] [address] WBC (Bld) [#/Vol] 6.2 10*3/uL Normal 4.0-11.0 [facility] Comment on above: Performed By: #### C BCA, CMP, THYR #### [facility] ([id number]) [address] [place] [address] 52478 #### 2857-1, 61063-7, 53522-5 #### [facility] ([id number]) [address], [address] [place] [address] COMPREHENSIVE METABOLIC PANE Alex 09-22-2023 Albumin [Mass/Vol] 4.2 g/dL Normal 3.2-5.3 [facility] Comment on above: Performed By: #### C BCA, CMP #### [facility] ([id number]) [address] [place] [address] 39487 #### 2857-1, 81343-5, 63548-9, FEPR, 2276-4 #### [facility] ([id number]) [address], [address] [place] [address] ALP [Catalytic activity/Vol] 41 U/L Normal 39-130 [facility] Comment on above: Performed By: #### C BCA, CMP #### [facility] ([id number]) [address] [place] [address] 93619 #### 2857-1, 23659-0, 47325-9, FEPR, 2276-4 #### [facility] ([id number]) [address], [address] [place] [address] ALT [Catalytic activity/Vol] 17 U/L Normal 0-40 [facility] Comment on above: Performed By: #### C BCA, CMP #### [facility] ([id number]) [address] [place] [address] 67216 #### 2857-1, 42685-0, 48266-6, FEPR, 2276-4 #### [facility] ([id number]) [address], [address] [place] [address] Anion gap [Moles/Vol] 6 mmol/L Normal 5-15 [facility] Comment on above: Performed By: #### C BCA, CMP #### [facility] ([id number]) [address] [place] [address] 61366 #### 2857-1, 58081-9, 66496-5, FEPR, 2276-4 #### [facility] ([id number]) [address], [address] [place] [address] AST [Catalytic activity/Vol] 20 U/L Normal 0-41 [facility] Comment on above: Performed By: #### C BCA, CMP #### [facility] ([id number]) [address] [place] [address] 13154 #### 2857-1, 72156-4, 26119-2, FEPR, 2276-4 #### [facility] ([id number]) [address], [address] [place] [address] Bilirubin [Mass/Vol] 0.4 mg/dL Normal 0.3-1.2 [facility] Comment on above: Performed By: #### C BCA, CMP #### [facility] ([id number]) [address] [place] [address] 32471 #### 2857-1, 77021-2, 50415-1, FEPR, 2276-4 #### [facility] ([id number]) [address], [address] [place] [address] Calcium [Mass/Vol] 9.3 mg/dL Normal 8.5-10.5 [facility] Comment on above: Performed By: #### C BCA, CMP #### [facility] ([id number]) [address] [place] [address] 61563 #### 2857-1, 94910-9, 76893-3, FEPR, 2276-4 #### [facility] ([id number]) [address], [address] [place] [address] Chloride [Moles/Vol] 103 mmol/L Normal 98-109 [facility] Comment on above: Performed By: #### C BCA, CMP #### [facility] ([id number]) [address] [place] [address] 91587 #### 2857-1, 66550-7, 73878-5, FEPR, 2276-4 #### [facility] ([id number]) [address], [address] [place] [address] CO2 [Moles/Vol] 27 mmol/L Normal 22-32 [facility] Comment on above: Performed By: #### C BCA, CMP #### [facility] ([id number]) [address] [place] [address] 69816 #### 2857-1, 58507-0, 03616-5, FEPR, 2276-4 #### [facility] ([id number]) [address], [address] [place] [address] Creatinine [Mass/Vol] 1.12 mg/dL Normal 0.70-1.20 [facility] Comment on above: Result Comment: METH OD TRACEABLE TO IDMS STANDARD Performed By: #### C GARDENIA, CMP #### [facility] ([id number]) [address] [place] [address] 91754 #### 2857-1, 03664-3, 81156-0, FEPR, 2276-4 #### [facility] ([id number]) [address] [place] [address] GFR/1.73 sq M.predicted among non-blacks MDRD (S/P/Bld) [Vol rate/Area] 71 mL/min/{1.73_m2} Normal >59 [facility] Comment on above: Result Comment: Reported eGFR is based on the CKD-EPI 2020 equation that does not use a race coefficient. Performed By: #### C GARDENIA, CMP #### [facility] ([id number]) [address] [place] [address] 91945 #### 2857-1, 67173-3, 23866-9, FEPR, 2276-4 #### [facility] ([id number]) [address], [address] [place] [address] Glucose [Mass/Vol] 178 mg/dL High 65-99 [facility] Comment on above: Performed By: #### C BCA, CMP #### [facility] ([id number]) [address] [place] [address] 77724 #### 2857-1, 35318-8, 99419-7, FEPR, 2276-4 #### [facility] ([id number]) [address], [address] [place] [address] Potassium [Moles/Vol] 4.6 mmol/L Normal 3.5-5.0 [facility] Comment on above: Performed By: #### C BCA, CMP #### [facility] ([id number]) [address] [place] [address] 34986 #### 2857-1, 56341-8, 35334-3, FEPR, 2276-4 #### [facility] ([id number]) [address], [address] [place] [address] Protein [Mass/Vol] 7.8 g/dL Normal 6.0-8.0 [facility] Comment on above: Performed By: #### C BCA, CMP #### [facility] ([id number]) [address] [place] [address] 11492 #### 2857-1, 81060-0, 65639-3, FEPR, 2276-4 #### [facility] ([id number]) [address], [address] [place] [address] Sodium [Moles/Vol] 136 mmol/L Normal 134-146 [facility] Comment on above: Performed By: #### C BCA, CMP #### [facility] ([id number]) [address] [place] [address] 87160 #### 2857-1, 83701-9, 85680-9, FEPR, 2276-4 #### [facility] ([id number]) [address], [address] [place] [address] Urea nitrogen [Mass/Vol] 18 mg/dL Normal 5-27 [facility] Comment on above: Performed By: #### C BCA, CMP #### [facility] ([id number]) [address] [place] [address] 40885 #### 2857-1, 14617-6, 34016-9, FEPR, 2276-4 #### [facility] ([id number]) [address], [address] [place] [address] HCV Ab IA Qlon 09-22-2023 ANTI HCV W/PCR REFLX Non-Reactive Normal NRCT [facility] Comment on above: Result Comment: If recent infection suspected, recommend repeat testing (>2 months). Octpxx-vx-haxpgq ratio is <0.80. Performed By: #### C BCA, CMP #### [facility] ([id number]) [address] [place] [address] 67238 #### 2857-1, 90934-1, 81646-7, FEPR, 2276-4 #### [facility] ([id number]) [address], [address] [place] [address] HGB A1C (GLYCO-HGB)on 2023 Glucose [Mass/Vol] 180 mg/dL Normal [facility] Comment on above: Performed By: #### C BCA, CMP #### [facility] ([id number]) [address] [place] [address] 76683 #### 2857-1, 41360-0, 10977-9, FEPR, 2276-4 #### [facility] ([id number]) [address], [address] [place] [address] HbA1c (Bld) [Mass fraction] 7.9 % High 4.4-5.6 [facility] Comment on above: Result Comment: NOTE ADA Guidelines Result HgbA1c Normal : less than 5.7 % Prediabetes : 5.7 % to 6.4 % Diabetes : > 6.4 % Use with caution in patients with abnormal hemoglobin variants as the half-life of red blood cells and in vivo glycation rates are affected. Performed By: #### C BCA, CMP #### [facility] ([id number]) [address] [place] [address] 94118 #### 2857-1, 56067-3, 05346-8, FEPR, 2276-4 #### [facility] ([id number]) [address], [address] [place] [address] Prostate specific Ag [Mass/V ol]on 09-22-2023 PSA SCREEN 0.89 ng/mL Normal 0.00-4.00 [facility] Comment on above: Result Comment: The method used for this test is [employer] DXI chemiluminescent immunoassay. Values obtained by different assay methods cannot be used interchangeably. Performed By: #### C BCA, CMP #### [facility] ([id number]) [address] [place] [address] 90521 #### 2857-1, 95142-5, 60156-5, FEPR, 2276-4 #### [facility] ([id number]) [address], [address] [address] THYROID PROFILEon 09-22-2023 Free T4 [Mass/Vol] 1.03 ng/dL Normal 0.61-1.60 [facility] Comment on above: Performed By: #### C BCA, CMP #### [facility] ([id number]) [address] [place] [address] 69406 #### 2857-1, 24261-5, 03075-5, FEPR, 2276-4 #### [facility] ([id number]) [address] [facility] [address] [place] [address] TSH 4.47 uIU/mL Normal 0.49-4.67 [facility] Comment on above: Performed By: #### C BCA, CMP #### [facility] ([id number]) [address] [place] [address] 73428 #### 2857-1, 08962-4, 59667-6, FEPR, 2276-4 #### [facility] ([id number]) [address], [address] [place] [address] Vitamin D+Metabolites [Mass/ Vol]on 09-22-2023 VITAMIN D 25 HYD TOT 23.7 ng/mL Low 30-100 [facility] Comment on above: Result Comment: Vitamin D status 25 [place] Vitamin D Deficiency <20 ng/mL Insufficiency 20-29 ng/mL Sufficiency 30-100 ng/mL Toxicity >100 ng/mL NOTE: A pediatric reference range has not been established by the aerosol line operator of this kit. The [place] [employer] recommends a Vitamin D level of = or >20ng/mL in infants and children. Performed By: #### C GARDENIA, CMP #### [facility] ([id number]) [address] [place] [address] 94153 #### 2857-1, 83615-2, 43025-4, FEPR, 2276-4 #### [facility] ([id number]) [address], [address] [place] [address] CBC AND AUTO DIFFon 08-02-19 24 ABSOLUTE BASOPHIL 0.0 X10E9/L Normal 0.0-0.2 [facility] Comment on above: Performed By: #### C GARDENIA, CMP #### [facility] ([id number]) [address] [place] [address] #### 2857-1, 93501-2, 02637-7, FEPR, 2276-4 #### [facility] ([id number]) [address], [address] [place] [address] ABSOLUTE NEUTROPHIL 4.4 X10E9/L Normal 1.5-6.6 [facility] Comment on above: Performed By: #### C BCA, CMP #### [facility] ([id number]) [address] [place] [address] #### 2857-1, 06694-9, 95542-6, FEPR, 2276-4 #### [facility] ([id number]) [address], [address] [place] [address] Basophils/100 WBC (Bld) 0.5 % Normal [facility] Comment on above: Performed By: #### C BCA, CMP #### [facility] ([id number]) [address] [place] [address] #### 2857-1, 37787-1, 82774-5, FEPR, 2276-4 #### [facility] ([id number]) [address], [address] [place] [address] Eosinophils (Bld) [#/Vol] 0.1 10*3/uL Normal 0.0-0.4 [facility] Comment on above: Performed By: #### C BCA, CMP #### [facility] ([id number]) [address] [place] [address] #### 2857-1, 00421-6, 42837-6, FEPR, 6-4 #### [facility] ([id number]) [address], [address] [place] [address] Eosinophils/100 WBC (Bld) 0.9 % Normal Mary [facility] Comment on above: Performed By: #### C BCA, CMP #### [facility] ([id number]) [address] [place] [address] 04123 #### 2857-1, 52349-1, 22039-3, FEPR, 6-4 #### [facility] ([id number]) [address], [address] [place] [address] Erythrocyte distribution width (RBC) [Ratio] 15.7 % High 11.5-15.0 [facility] Comment on above: Performed By: #### C BCA, CMP #### [facility] ([id number]) [address] [place] [address] 08386 #### 2857-1, 89334-9, 41442-6, FEPR, 2276-4 #### [facility] ([id number]) [address], [address] [place] [address] Hematocrit (Bld) [Volume fraction] 38.3 % Low 39-49 [facility] Comment on above: Performed By: #### C BCA, CMP #### [facility] ([id number]) [address] [place] [address] 97111 #### 2857-1, 56636-0, 17276-2, FEPR, 2276-4 #### [facility] ([id number]) [address], [address] [place] [address] Hemoglobin (Bld) [Mass/Vol] 12.5 g/dL Low 13.0-17.0 [facility] Comment on above: Performed By: #### C BCA, CMP #### [facility] ([id number]) [address] [place] [address] 13693 #### 2857-1, 65457-0, 35812-7, FEPR, 2276-4 #### [facility] ([id number]) [address], [address] [place] [address] Lymphocytes (Bld) [#/Vol] 1.2 10*3/uL Normal 1.0-3.5 [facility] Comment on above: Performed By: #### C BCA, CMP #### [facility] ([id number]) [address] [place] [address] 14630 #### 2857-1, 58707-9, 04240-5, FEPR, 2276-4 #### [facility] ([id number]) [address], [address] [place] [address] Lymphocytes/100 WBC (Bld) 18.4 % Normal [facility] Comment on above: Performed By: #### C BCA, CMP #### [facility] ([id number]) [address] [place] [address] 11475 #### 2857-1, 77160-0, 60399-0, FEPR, 2276-4 #### [facility] ([id number]) [address], [address] [place] [address] MCH (RBC) [Entitic mass] 29.1 pg Normal 27-34 [facility] Comment on above: Performed By: #### C BCA, CMP #### [facility] ([id number]) [address] [place] [address] 85541 #### 2857-1, 67749-9, 34486-0, FEPR, 2275-4 #### [facility] ([id number]) [address], [address] [place] [address] MCHC (RBC) [Mass/Vol] 32.7 g/dL Normal 32-36 [facility] Comment on above: Performed By: #### C BCA, CMP #### [facility] ([id number]) [address] [place] [address] 59753 #### 2857-1, 29754-5, 51622-1, FEPR, 6-4 #### [facility] ([id number]) [address], [address] [place] [address] MCV (RBC) [Entitic vol] 89 fL Normal 80-100 [facility] Comment on above: Performed By: #### C BCA, CMP #### [facility] ([id number]) [address] [place] [address] 28486 #### 2857-1, 65918-8, 99071-3, FEPR, 2276-4 #### [facility] ([id number]) [address], [address] [place] [address] Monocytes (Bld) [#/Vol] 1.0 10*3/uL High 0-0.9 [facility] Comment on above: Performed By: #### C BCA, CMP #### [facility] ([id number]) [address] [place] [address] 92536 #### 2857-1, 01662-3, 65810-7, FEPR, 2276-4 #### [facility] ([id number]) [address], [address] [place] [address] Monocytes/100 WBC (Bld) 14.3 % Normal [facility] Comment on above: Performed By: #### C BCA, CMP #### [facility] ([id number]) [address] [place] [address] 57529 #### 2857-1, 03311-9, 56305-7, FEPR, 2276-4 #### [facility] ([id number]) [address], [address] [place] [address] Neutrophils/100 WBC (Bld) 65.9 % Normal [facility] Comment on above: Performed By: #### C BCA, CMP #### [facility] ([id number]) [address] [place] [address] 48467 #### 2857-1, 21086-1, 01779-7, FEPR, 2276-4 #### [facility] ([id number]) [address], [address] [place] [address] Platelet mean volume (Bld) [Entitic vol] 8.3 fL Normal 7-12 [facility] Comment on above: Performed By: #### C BCA, CMP #### [facility] ([id number]) [address] [place] [address] 11562 #### 2857-1, 99774-3, 72094-7, FEPR, 2276-4 #### [facility] ([id number]) [address], [address] [place] [address] Platelets (Bld) [#/Vol] 271 10*3/uL Normal 150-450 [facility] Comment on above: Performed By: #### C BCA, CMP #### [facility] ([id number]) [address] [place] [address] 35871 #### 2857-1, 84575-0, 37287-7, FEPR, 2276-4 #### [facility] ([id number]) [address], [address] [place] [address] RBC COUNT 4.31 X10E12/L Normal 4.10-5.70 [facility] Comment on above: Performed By: #### C BCA, CMP #### [facility] ([id number]) [address] [place] [address] 10988 #### 2857-1, 33708-3, 51381-5, FEPR, 2276-4 #### [facility] ([id number]) [address], [address] [place] [address] WBC (Bld) [#/Vol] 6.7 10*3/uL Normal 4.0-11.0 [facility] Comment on above: Performed By: #### C BCA, CMP #### [facility] ([id number]) [address] [place] [address] 93793 #### 2857-1, 48541-5, 40713-5, FEPR, 2276-4 #### [facility] ([id number]) [address], [address] [place] [address] COMPREHENSIVE METABOLIC PANE Alex 08-02-2023 Albumin [Mass/Vol] 3.8 g/dL Normal 3.2-5.3 [facility] Comment on above: Performed By: #### C BCA, CMP #### [facility] ([id number]) [address] [place] [address] [place] [address] #### 2857-1, 97976-3, 92172-1, FEPR, 2276-4 #### [facility] ([id number]) [address], [address] [place] [address] ALP [Catalytic activity/Vol] 48 U/L Normal 39-130 [facility] Comment on above: Performed By: #### C BCA, CMP #### [facility] ([id number]) [address] [place] [address] 86892 #### 2857-1, 30088-3, 44563-3, FEPR, 2276-4 #### [facility] ([id number]) [address], [address] [place] [address] ALT [Catalytic activity/Vol] 18 U/L Normal 0-40 [facility] Comment on above: Performed By: #### C BCA, CMP #### [facility] ([id number]) [address] [place] [address] 77391 #### 2857-1, 03300-1, 88051-4, FEPR, 2276-4 #### [facility] ([id number]) [address], [address] [place] [address] Anion gap [Moles/Vol] 9 mmol/L Normal 5-15 [facility] Comment on above: Performed By: #### C BCA, CMP #### [facility] ([id number]) [address] [place] [address] 15728 #### 2857-1, 17352-5, 32185-3, FEPR, 2276-4 #### [facility] ([id number]) [address], [address] [place] [address] AST [Catalytic activity/Vol] 24 U/L Normal 0-41 [facility] Comment on above: Performed By: #### C BCA, CMP #### [facility] ([id number]) [address] [place] [address] 57166 #### 2857-1, 58826-6, 03014-4, FEPR, 2276-4 #### [facility] ([id number]) [address], [address] [place] [address] Bilirubin [Mass/Vol] 0.6 mg/dL Normal 0.3-1.2 [facility] Comment on above: Performed By: #### C BCA, CMP #### [facility] ([id number]) [address] [place] [address] 60691 #### 2857-1, 55991-9, 13135-9, FEPR, 2276-4 #### [facility] ([id number]) [address], [address] [place] [address] Calcium [Mass/Vol] 9.0 mg/dL Normal 8.5-10.5 [facility] Comment on above: Performed By: #### C BCA, CMP #### [facility] ([id number]) [address] [place] [address] 02982 #### 2857-1, 20269-5, 14081-0, FEPR, 2276-4 #### [facility] ([id number]) [address], [address] [place] [address] Chloride [Moles/Vol] 98 mmol/L Normal 98-109 [facility] Comment on above: Performed By: #### C BCA, CMP #### [facility] ([id number]) [address] [place] [address] 46246 #### 2857-1, 99635-6, 51496-3, FEPR, 2276-4 #### [facility] ([id number]) [address], [address] [place] [address] CO2 [Moles/Vol] 28 mmol/L Normal 22-32 [facility] Comment on above: Performed By: #### C BCA, CMP #### [facility] ([id number]) [address] [place] [address] 54626 #### 2857-1, 90934-2, 37917-2, FEPR, 2276-4 #### [facility] ([id number]) [address], [address] [place] [address] Creatinine [Mass/Vol] 0.93 mg/dL Normal 0.70-1.20 [facility] Comment on above: Result Comment: METH OD TRACEABLE TO IDMS STANDARD Performed By: #### C BCA, CMP #### [facility] ([id number]) [address] [place] [address] 99096 #### 2857-1, 07373-5, 43033-5, FEPR, 2276-4 #### [facility] ([id number]) [address], [address] [place] [address] GFR/1.73 sq M.predicted among non-blacks MDRD (S/P/Bld) [Vol rate/Area] 89 mL/min/{1.73_m2} Normal >59 [facility] Comment on above: Result Comment: Reported eGFR is based on the CKD-EPI 2020 equation that does not use a race coefficient. Performed By: #### C BCA, CMP #### [facility] ([id number]) [address] [place] [address] 48831 #### 2857-1, 46064-9, 83959-0, FEPR, 2276-4 #### [facility] ([id number]) [address], [address] [place] [address] Glucose [Mass/Vol] 193 mg/dL High 65-99 [facility] Comment on above: Performed By: #### C BCA, CMP #### [facility] ([id number]) [address] [place] [address] 75108 #### 2857-1, 19912-8, 51266-4, FEPR, 2276-4 #### [facility] ([id number]) [address], [address] [place] [address] Potassium [Moles/Vol] 4.8 mmol/L Normal 3.5-5.0 [facility] Comment on above: Performed By: #### C BCA, CMP #### [facility] ([id number]) [address] [place] [address] 28033 #### 2857-1, 98259-1, 19685-2, FEPR, 2276-4 #### [facility] ([id number]) [address], [address] [place] [address] Protein [Mass/Vol] 7.8 g/dL Normal 6.0-8.0 [facility] Comment on above: Performed By: #### C BCA, CMP #### [facility] ([id number]) [address] [place] [address] 43099 #### 2857-1, 98280-5, 37080-5, FEPR, 6-4 #### [facility] ([id number]) [address], [address] [place] [address] Sodium [Moles/Vol] 135 mmol/L Normal 134-146 [facility] Comment on above: Performed By: #### C BCA, CMP #### [facility] ([id number]) [address] [place] [address] 01075 #### 2857-1, 13103-3, 56194-2, FEPR, 2276-4 #### [facility] ([id number]) [address], [address] [place] [address] Urea nitrogen [Mass/Vol] 20 mg/dL Normal 5-27 [facility] Comment on above: Performed By: #### C BCA, CMP #### [facility] ([id number]) [address] [place] [address] 27924 #### 2857-1, 57119-6, 07809-1, FEPR, 2276-4 #### [facility] ([id number]) [address], [address] [place] [address] FERRITINon 08-02-2023 Ferritin [Mass/Vol] 29 ng/mL Normal 24-336 [facility] Comment on above: Performed By: #### C BCA, CMP #### [facility] ([id number]) [address] [place] [address] 59898 #### 2857-1, 61534-4, 13880-1, FEPR, 2276-4 #### [facility] ([id number]) [address], [address] [place] [address] HCV Ab IA Qlon 08-02-2023 ANTI HCV W/PCR REFLX Non-Reactive Normal NRCT [facility] Comment on above: Result Comment: If recent infection suspected, recommend repeat testing (>2 months). Qccvpu-sg-nmgmgx ratio is <0.80. Performed By: #### C BCA, CMP #### [facility] ([id number]) [address] [place] [address] 65290 #### 2857-1, 71132-1, 16548-7, FEPR, 2276-4 #### [facility] ([id number]) [address], [address] [place] [address] HGB A1C (GLYCO-HGB)on 2023 Glucose [Mass/Vol] 189 mg/dL Normal [facility] Comment on above: Performed By: #### C BCA, CMP #### [facility] ([id number]) [address] [place] [address] 89183 #### 2857-1, 69615-6, 45473-7, FEPR, 2276-4 #### [facility] ([id number]) [address], [address] [place] [address] HbA1c (Bld) [Mass fraction] 8.2 % High 4.4-5.6 [facility] Comment on above: Result Comment: NOTE ADA Guidelines Result HgbA1c Normal : less than 5.7 % Prediabetes : 5.7 % to 6.4 % Diabetes : > 6.4 % Use with caution in patients with abnormal hemoglobin variants as the half-life of red blood cells and in vivo glycation rates are affected. Performed By: #### C BCA, CMP #### [facility] ([id number]) [address] [place] [address] 67809 #### 2857-1, 91502-9, 89244-2, FEPR, 2276-4 #### [facility] ([id number]) [address], [address] [place] [address] IRON PROFILEon 08-02-2023 Iron [Mass/Vol] 47 ug/dL Low 50-212 [facility] Comment on above: Performed By: #### C BCA, CMP #### [facility] ([id number]) [address] [place] [address] 53299 #### 2857-1, 18077-1, 67038-0, FEPR, 2276-4 #### [facility] ([id number]) [address], [address] [place] [address] IRON BINDING 379 ug/dL Normal 250-425 [facility] Comment on above: Performed By: #### C BCA, CMP #### [facility] ([id number]) [address] [place] [address] 72723 #### 2857-1, 57792-6, 90923-6, FEPR, 2276-4 #### [facility] ([id number]) [address], [address] [place] [address] IRON SATURATION 12 % SATURATION Low 20-50 [facility] Comment on above: Performed By: #### Jerry VARNER, CMP #### [facility] ([id number]) [address] [place] [address] #### 2857-1, 55571-3, 21154-6, FEPR, 2276-4 #### [facility] ([id number]) [address], [address] [place] [address] Prostate specific Ag [Mass/V ol]on 08-02-2023 PSA SCREEN 0.52 ng/mL Normal 0.00-4.00 [facility] Comment on above: Result Comment: The method used for this test is [employer] DXI chemiluminescent immunoassay. Values obtained by different assay methods cannot be used interchangeably. Performed By: #### Jerry VARNER, CMP #### [facility] ([id number]) [address] [place] [address] #### 2857-1, 40015-4, 64670-6, FEPR, 2276-4 #### [facility] ([id number]) [address] [place] [address] Vitamin D+Metabolites [Mass/ Vol]on 08-02-2023 VITAMIN D 25 HYD TOT 19.2 ng/mL Low 30-100 [facility] Comment on above: Result Comment: Vitamin D status 25 [place] Vitamin D Deficiency <20 ng/mL Insufficiency 20-29 ng/mL Sufficiency 30-100 ng/mL Toxicity >100 ng/mL NOTE: A pediatric reference range has not been established by the aerosol line operator of this kit. The [place] [employer] recommends a Vitamin D level of = or >20ng/mL in infants and children. Performed By: #### C BCA, CMP #### [facility] ([id number]) [address], [place] [address] #### 2857-1, 04430-0, 30974-2, FEPR, 2276-4 #### [facility] ([id number]) [address] [place] [address] XR SPINE CERVICAL 3 VWS OR L [...] Ash MD on 06/29/2023 3:36 PM Normal [facility] Encounters Encounter Date Encounter Type Care Provider Facility Start: 04-09-2024 End: 04-09-2024 ambulatory [facility] Start: 04-01-2024 End: 04-01-2024 ambulatory [facility] Start: 02-22-2024 End: 02-22-2024 ambulatory [facility] Start: 01-09-2024 End: 01-09-2024 ambulatory [facility] Start: 12-26-2023 End: 12-27-2023 Emergency department patient visit DIVYA GONZALES [facility] Start: 09-22-2023 End: 09-22-2023 ambulatory [facility] Start: 08-02-2023 End: 08-02-2023 ambulatory [facility] Start: 06-29-2023 End: 06-29-2023 ambulatory [place] [facility] Start: 06-29-2023 End: 06-30-2023 ambulatory [place] [facility] Start: 11-14-2022 End: 11-15-2022 ambulatory MARIANA PHILLIPS Facility:[facility] Start: 10-24-2022 End: 10-25-2022 ambulatory [facility] Start: 10-03-2022 End: 10-04-2022 ambulatory MARIANA PHILLIPS Facility:[facility] Start: 09-12-2022 End: 09-13-2022 ambulatory CHET FOURNIER Facility:[facility] Start: 08-23-2022 End: 08-24-2022 ambulatory MARIANA PHILLIPS Facility:[facility] Start: 08-16-2022 End: 08-17-2022 ambulatory MARIANA PHILLIPS Facility:[facility] Start: 08-09-2022 End: 08-10-2022 ambulatory MARIANA Liu [facility] Facility:[facility] Payers Date Payer Category Payer Medicaid [id number] 1960 Medicare [id number] 1955 Unknown [id number] 2.16.84 0.1.395500.3.579.2.593 1955 Unknown [id number] 2.16.84 0.1.275207.3.579.2.593 1954 Unknown [id number] 2.16.84 0.1.312936.3.579.2.593 1954 Unknown [id number] 2.16.84 0.1.614820.3.579.2.593 1954 Unknown [id number] 2.16.84 0.1.644902.3.579.2.593 1954 Unknown [id number] 2.16.84 0.1.538113.3.579.2.593 1954 Unknown [id number] 2.16.84 0.1.216604.3.579.2.593 1954 Unknown [id number] 2.16.8 40.1.603876.3.579.2.128 1954 Unknown [id number] 2.16.8 40.1.187613.3.579.2.1285 1954 Unknown [id number] 2.16.8 40.1.698121.3.579.2.1285 1954 Unknown [id number] 2.16.8 40.1.168875.3.579.2.1285 1954 Unknown [id number] 2.16.8 40.1.226269.3.579.2.1285 1954 Unknown [id number] 2.16.8 40.1.123780.3.579.2.1285 1954 Unknown [id number] 2.16.8 40.1.267316.3.579.2.1285 1954 Unknown [id number] 2.16.8 40.1.300498.3.579.2.1285 1954 Unknown [id number] 2.16.8 40.1.553611.3.579.2.1285 1954 Unknown [id number] 2.16.84 0.1.389915.3.579.2.1285 1954 Unknown [id number] 2.16.84 0.1.329378.3.579.2.1286 Clinical Note 08-09-2022 Note Date & Type [...] by: EDILSON DON Date: 2022-08-09 15:44 [facility] Summary Purpose Family History No Family History Records FoundNo Family History Records Found Advance Directives No Advanced Directives Records FoundNo Advanced Directives Records Found Additional Source Comments (unrecognized sect ion and content) No Status Records FoundNo Status Records Found INFORMATION SOURCE (unrecogn ized section and content) DATE CREATED AUTHOR 11/16/2022 [facility] [place] Delicia martinez DATE CREATED AUTHOR AUTHOR'S MIQUEL RENEMEI 04/10/2024 [facility] FOR RECORDS PERTAINING TO PATIENTS WHO [...] BE BASED ON THE PRIMARY CLINICAL RECORDS. [employer] [facility]. provides no warranty or guarantee of the accuracy or completeness of information in this document.
== END 2024-04-15 11:46 | disposition home or self-care (01) ==
LOC: WC 11:45
PROVIDERS: Visit Provider Physician Assistant
DX: E11.621 Type 2 diabetes mellitus with foot ulcer (principal); L97.421 Non-pressure chronic ulcer of left heel and midfoot limited to breakdown of skin
CPT/HCPCS: A6213; G0463

== ENCOUNTER 2024-05-01 13:57 | Outpatient (OUT) | payer MEDICARE, MEDICAID, SELFPAY ==
--- OUTSIDE RECORDS SUMMARY | 2024-05-01 14:20 | XMS_ITS | CCD ---
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 Name Role Phone MARIANA PHILLIPS Attending Unavailable MARIANA PHILLIPS Admitting Unavailable HIGHLANDER, MARIANA Liu Attending Unavailable HIGHLANDERMARIANA Admitting Unavailable HIGHLANDER, MARIANA Liu Admitting Unavailable HIGHLANDERMARIANA Attending Unavailable SHANTANUCHET Admitting Unavailable SHANTANUCHET BONDS Attending Unavailable MARIANA PHILLIPS Admitting Unavailable HIGHLANDERMARIANA Attending Unavailable MARIANA PHILLIPS Admitting Unavailable ZIEBERDR EDILSON Consulting Unavailable HIGHLANDER, MARIANA Liu Attending Unavailable HIGHLANDERMARIANA Consulting Unavailable HIGHLANDERMARIANA Admitting Unavailable HIGHLANDERMARIANA Consulting Unavailable CARMENANDERMARIANA Attending Unavailable Services, [facility], [facility] Primary Care Provider ANGLIM, IZZY A Referring Unavailable ANGLIM, IZZY A Primary Care Unavailable ANGLIM, IZZY A Referring Unavailable ANGLIM, IZZY A Primary Care Unavailable ANGLIM, IZZY A Referring Unavailable ANGLIM, IZZY A Primary Care Unavailable CHEDIVYA DURBIN Attending Unavailable SERVICES, [facility] Primary Care Unava ilable CHEDIVYA DURBIN Attending Unavailable CHEHADIVYA SANDERSON Referring Unavailable SERVICES, [facility] Primary Care Unava ilable CHEHADEDIVYA Attending Unavailable CHEHADEDIVYA Referring Unavailable SERVICES, [facility] Primary Care Unava ilable ANGLIM, IZZY A Referring Unavailable ANGLIM, IZZY A Primary Care Unavailable BEBETO HAQ Attending Unavailable JACKIE BARRERA Referring Unavailable SERVICES, [facility] Care Unava ilable BEBETO HAQ Attending Unavailable NAY HYDE Referring Unavailable SERVICES, [facility] Primary Care Unava ilable BEBETO HAQ Attending Unavailable BEBETO HAQ Referring Unavailable SERVICES, [facility] Primary Care Unava ilable BEBETO HAQ Attending Unavailable NAY HYDE Referring Unavailable SERVICES, [facility] Primary [facility] SERVICES, [facility] DIVYA GONZALES Attending Unavailable Medications Current Medications Medication Drug Class(es) Dates Sig (Normalized) Sig (Original) 8 hr acetaminophen 650 mg extended release oral tablet (2 sources) End: 04-09-2024 take 2 tablets by mouth every six hours as needed for pain acetaminophen (TYLENOL) 325 mg tablet Take 2 tablets (650 mg total) by mouth every 6 (six) hours as needed for pain. 04/09/2024 take 1 tablet by handy th every eight hours as needed for pain acetaminophen (TYLENOL ARTHRITIS) 650 mg 8 hr tablet Take 1 tablet (650 mg total) by mouth every 8 (eight) hours as needed for pain. Active acetaminophen 325 mg / HYDROcodone bitartrate 5 mg oral tablet (1 source) Opioid Agonist take 1 tablet by mouth every six hours as needed for pain HYDROcodone-acetaminophen (NORCO) 5-325 mg per tablet Take 1 tablet by mouth every 6 (six) hours as needed for pain. Active amiodarone hydrochloride 200 mg oral tablet (1 source) Antiarrhythmic Start : 03-08 take 1 tablet by mouth in the morning amiodarone (PACERONE) 200 mg tablet Take 1 tablet (200 mg total) by mouth in the morning. 90 tablet 3 03/08/2023 Active aspirin 81 mg delayed release oral tablet (1 source) Platelet Aggregation Inhibitor, Nonsteroidal Anti-inflammatory Drug take 1 tablet by mouth in the morning aspirin 81 mg Take 1 tablet (81 mg total) by mouth in the morning. Active carisoprodol 350 mg oral tablet (1 source) Muscle Relaxant Start : 12-27 take 1 tablet by mouth three times daily as needed for muscle spasms carisoprodoL (SOMA) 350 mg tablet Take 1 tablet (350 mg total) by mouth 3 (three) times a day as needed for muscle spasms. 12/28/2023 Active cholecalciferol 0.025 mg oral capsule (2 sources) Vitamin D Start : 11-01 take 1 capsule by mouth in the morning VITAMIN D3 25 mcg (1,000 unit) capsule Take 1 capsule (1,000 Units total) by mouth in the morning. 11/02/2023 Active take 1 tablet by mouth in the mo rning cholecalciferol (VITAMIN D3) 1,000 units tablet Take 1 tablet (1,000 Units total) by mouth in the morning. Active empagliflozin 25 mg oral tablet (1 source) Sodium-Glucose Cotransporter 2 Inhibitor take 1 tablet by mouth in the morning empagliflozin (JARDIANCE) 25 mg tablet tablet Take 1 tablet (25 mg total) by mouth in the morning. Active sodium hypochlorite 2.5 mg/ml topical solution (1 source) sodium hypochlor ite (DAKIN'S, HALF-STRENGTH,) 0.25 % external solution Apply 1 Application topically daily as needed for wound care (Use to clean left foot wound as instructed.). Use to clean left foot wound as instructed. Active 3 ml insulin glargine 100 unt/ml pen injector (1 source) Insulin Analog inject 32 [IU] by subcutaneous injection once daily insulin glargine (LANTUS, BASAGLAR) 100 unit/mL (3 mL) insulin pen Inject 32 Units under the skin nightly. Active lactobacillus acidophilus [id number] unt / pectin 10 mg oral capsule (1 source) take 1 capsule by mouth once daily at breakfast acidophilus-pectin, citrus 100 million cell-10 mg capsule Take by mouth daily with breakfast. Active magnesium oxide 400 mg oral tablet (1 source) Start: 2020 take 1 tablet by mouth three times daily at mealtime magnesium oxide (MAG-OX) 400 mg tablet Indications: Hypomagnesemia Take 1 tablet (400 mg total) by mouth 3 (three) times a day with meals. 90 tablet 5 06/16/2021 Active 24 hr metFORMIN hydrochloride 500 mg extended release oral tablet (1 source) Biguanide Start: 2017 take 2 tablets by mouth every twenty-four hours in the morning, then take 2 tablets by mouth at bedtime metFORMIN XR (GLUCOPHAGE-XR) 500 mg 24 hr tablet Take 2 tablets (1,000 mg total) by mouth in the morning and 2 tablets (1,000 mg total) before bedtime. 01/23/2018 Active 24 hr metoprolol succinate 100 mg extended release oral tablet (1 source) beta-Adrenergic Elsi Start: 2023 take 1 tablet by mouth every twenty-four hours in the morning metoprolol succinate XL (TOPROL XL) 100 mg 24 hr tablet Indications: Ventricular tachycardia (CMS-HCC) , Atrial fibrillation with RVR (CMS-HCC) , V-tach (CMS-HCC) TAKE 1 TABLET (100 MG TOTAL) BY MOUTH IN THE MORNING 90 tablet 02/21/2024 Active OZEMPIC 0.25 mg or 0.5 mg (2 mg/3 mL) pen injector (1 source) Start: 2023 inject 0.5 mg by subcutaneous injection every week OZEMPIC 0.25 mg or 0.5 mg (2 mg/3 mL) pen injector Inject 0.5 mg under the skin once a week. 11/28/2023 Active pantoprazole 40 mg delayed release oral tablet (1 source) Proton Pump Inhibitor Start: 2021 take 1 tablet by mouth once daily before breakfast pantoprazole (PROTONIX) 40 mg EC tablet Take 1 tablet (40 mg total) by mouth every morning before breakfast. 30 tablet 3 08/16/2021 Active rivaroxaban 20 mg oral tablet (1 source) Factor Xa Inhibitor Start: 2023 take 1 tablet by mouth in the morning XARELTO 20 mg tablet tablet Indications: Atrial fibrillation, unspecified type (CMS-HCC) TAKE 1 TABLET (20 MG TOTAL) BY MOUTH IN THE MORNING 90 tablet 1 02/21/2024 Active sertraline 50 mg oral tablet (1 source) Serotonin Reuptake Inhibitor take 1 tablet by mouth in the morning sertraline (ZOLOFT) 50 mg tablet Take 1 tablet (50 mg total) by mouth in the morning. Active tamsulosin hydrochloride 0.4 mg oral capsule (1 source) alpha-Adrenergic Elsi Start: 2019 take 1 capsule by mouth in the morning tamsulosin (FLOMAX) 0.4 mg capsule Take 1 capsule (0.4 mg total) by mouth in the morning. 05/02/2020 Active Problems Active Problems Problem Classification Problem Date Documented Da te Episodic/Chronic Acquired foot deformities (1 source) Other acquired deformities of left foot; 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: [OTHER ACQUIRED DEFORMITIES LT FOOT] Onset: 08-26-2022 Episodic Bacterial infection; unspecified site (1 source) Bacteremia; 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: [BACTEREMIA] Onset: 08-26-2022 Episodic Cardiac dysrhythmias (6 sources) Unspecified atrial fibrillation; 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: [Paroxysmal atrial fibrillation] Onset: 11-14-2018 11-14-2018 Chronic Cardiac dysrhythmias (1 source) Bradycardia, unspecified; 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: [BRADYCARDIA UNSPECIFIED] Onset: 08-26-2022 Episodic Chronic ulcer of skin (6 sources) 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 breakdown of skin; 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: [Non-pressure chronic ulcer of left heel and midfoot limited to breakdown of skin] Onset: 08-26-2022 Chronic Conduction disorders (1 source) Automatic implantable cardiac defibrillator in situ; 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: [Presence of automatic (implantable) cardiac defibrillator] Onset: 12-04-2018 02-19-2019 Chronic Coronary atherosclerosis and other heart disease (2 sources) Coronary atherosclerosis; 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: [Atherosclerotic heart disease of [place] coronary artery without angina pectoris] Onset: 12-04-2018 12-04-2018 Chronic Diabetes mellitus with complications (17 sources) Type 2 diabetes mellitus with other skin ulcer; 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: [Type 2 diabetes mellitus with diabetic nephropathy] Onset: 04-18-2018 Chronic Disorders of lipid metabolism (1 source) Pure hypercholesterolemia ; 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: [Pure hypercholesterolemia , unspecified] Onset: 12-04-2018 12-04-2018 Chronic E Codes: Fall (1 source) Unspecified fall, initial encounter; 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: [Unspecified fall, initial encounter] Onset: 04-16-2024 Episodic E Codes: Fall (1 source) Fall Onset: 04-16-2024 Essential hypertension (2 sources) Essential (primary) hypertension; 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: [Essential hypertension] Onset: 11-17-2021 11-17-2021 Chronic Genitourinary symptoms and ill-defined conditions (1 source) Functional urinary incontinence; 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: [Functional urinary incontinence] Onset: 08-10-2016 09-07-2016 Chronic Hyperplasia of prostate (2 sources) Benign prostatic hypertrophy with outflow obstruction; 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: [Benign prostatic hyperplasia with lower urinary tract symptoms] Onset: 09-07-2016 10-23-2017 Chronic Hypertension with complications and secondary hypertension (1 source) Hypertensive chronic kidney disease with stage 1 through stage 4 chronic kidney disease, or unspecified chronic kidney disease; 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: [HTN CKD W/STAGE 1-4 CKD/UNS CKD] Onset: 09-21-2022 Chronic Infective arthritis and osteomyelitis (except that caused by tuberculosis or sexually transmitted disease) (1 source) Osteomyelitis; 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: [Osteomyelitis, unspecified] Onset: 11-17-2021 11-17-2021 Chronic Nutritional deficiencies (2 sources) Vitamin D [...] IN LEFT FOOT] Onset: 08-09-2022 Episodic Other nutritional; endocrine; and metabolic disorders (1 source) Hypomagnesemia; 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: [Hypomagnesemia] Onset: 11-17-2021 11-17-2021 Chronic Other upper respiratory disease (1 source) Epistaxis; 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: [Epistaxis] Onset: 04-16-2024 Episodic Peripheral and visceral atherosclerosis (1 source) Peripheral vascular disease, unspecified; 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: [PERIPHERAL VASCULAR DISEASE UNS] Onset: 08-26-2022 Chronic Skull and face fractures (1 source) Fracture of nasal bones, initial encounter for closed fracture; 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: [Fracture of nasal bones, initial encounter for closed fracture] Onset: 04-16-2024 Episodic Spondylosis; intervertebral disc disorders; other back problems (4 sources) Lumbosacral spondylosis without myelopathy; 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: [Spondylosis without myelopathy or radiculopathy, lumbosacral region] Onset: 02-22-2024 04-09-2024 Chronic Spondylosis; intervertebral disc disorders; other back problems (4 sources) Radiculopathy, lumbar region; 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: [Backache] Onset: 06-29-2023 Episodic Unclassified (1 source) CHRN KIDNEY DISEASE STG 3 UNSP; 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: [CHRN KIDNEY DISEASE STG 3 UNSP] Onset: 09-21-2022 Unclassified (1 source) ems Onset: 12-26-2023 Past or Other Problems Problem Classification Problem Date Documented Date Episodic/Chronic Abdominal pain (1 source) Flank pain Onset: 12-26-2023 Episodic Complications of surgical procedures or medical care (1 source) Non-healing surgical wound; 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: [Other complications of procedures, not elsewhere classified, initial encounter] Onset: 10-01-2021 10-01-2021 Episodic Genitourinary symptoms and ill-defined conditions (1 source) Jordy hematuria; 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: [Gross hematuria] Onset: 09-15-2021 09-15-2021 Episodic Immunizations and screening for infectious disease (1 source) Encounter for screening for other viral diseases; 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: [Encounter for screening for other viral diseases] Onset: 08-02-2023 Episodic Nonspecific chest pain (1 source) Chest pain; 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: [Chest pain, unspecified] Onset: 11-22-2017 11-22-2017 Episodic Open wounds of head; neck; and trunk (1 source) Open wound of scalp ; 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: [Unspecified open wound of scalp, initial encounter] Onset: 03-02-2018 03-02-2018 Episodic Other connective tissue disease (1 source) Myositis; 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: [Myositis, unspecified] Onset: 08-10-2021 08-10-2021 Episodic Other eye disorders (1 source) Degenerative changes of anterior chamber angle; 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: [Degeneration of chamber angle, unspecified eye] Onset: 11-17-2021 11-17-2021 Episodic Other screening for suspected conditions (not mental disorders or infectious disease) (1 source) Encounter for screening for malignant neoplasm of prostate; 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: [Encounter for screening for malignant neoplasm of prostate] Onset: 09-22-2023 Episodic Results Test Name Value Interpretation Reference Range Facil ity BASIC METABOLIC PANLon 04-16 Anion gap [Moles/Vol] 10 mmol/L Normal 5-15 [facility] Comment on above: Performed By: #### C BCA, CMP #### [facility] ([id number]) [address] [place] [address], [place] [address] #### 2857-1, 34331-0, 56542-8, FEPR, 2276-4 #### [facility] ([id number]) [address] [place] [address], [address] [place] [address] Calcium [Mass/Vol] 9.3 mg/dL Normal 8.5-10.5 [facility] Comment on above: Performed By: #### C BCA, CMP #### [facility] ([id number]) [address] [place] [address] #### 2857-1, 57865-9, 43709-6, FEPR, 2276-4 #### [facility] ([id number]) [address], [address] [place] [address] Chloride [Moles/Vol] 101 mmol/L Normal 98-109 [facility] Comment on above: Performed By: #### C BCA, CMP #### [facility] ([id number]) [address] [place] [address] #### 2857-1, 10441-0, 18752-9, FEPR, 2276-4 #### [facility] ([id number]) [address], [address] [place] [address] CO2 [Moles/Vol] 27 mmol/L Normal 22-32 [facility] Comment on above: Performed By: #### C BCA, CMP #### [facility] ([id number]) [address] [place] [address] #### 2857-1, 00320-4, 09427-5, FEPR, 2276-4 #### [facility] ([id number]) [address], [address] [place] [address] Creatinine [Mass/Vol] 1.19 mg/dL Normal 0.70-1.20 [facility] Comment on above: Result Comment: METH OD TRACEABLE TO IDMS STANDARD Performed By: #### C BCA, CMP #### [facility] ([id number]) [address] [place] [address] #### 2857-1, 42832-7, 69983-4, FEPR, 2276-4 #### [facility] ([id number]) [address], [address] [place] [address] GFR/1.73 sq M.predicted among non-blacks MDRD (S/P/Bld) [Vol rate/Area] 66 mL/min/{1.73_m2} Normal >59 [facility] Comment on above: Result Comment: Reported eGFR is based on the CKD-EPI 2020 equation that does not use a race coefficient. Performed By: #### C BCA, CMP #### [facility] ([id number]) [address] [place] [address] #### 2857-1, 14931-4, 30922-7, FEPR, 2276-4 #### [facility] ([id number]) [address], [address] [place] [address] Glucose [Mass/Vol] 165 mg/dL High 65-99 [facility] Comment on above: Performed By: #### C BCA, CMP #### [facility] ([id number]) [address] [place] [address] #### 2857-1, 66180-8, 70749-8, FEPR, 2276-4 #### [facility] ([id number]) [address], [address] [place] [address] Potassium [Moles/Vol] 4.2 mmol/L Normal 3.5-5.0 [facility] Comment on above: Performed By: #### C BCA, CMP #### [facility] ([id number]) [address] [place] [address] #### 2857-1, 43575-5, 01374-2, FEPR, 2276-4 #### [facility] ([id number]) [address] [facility] [facility], [address] [place] [address] Sodium [Moles/Vol] 138 mmol/L Normal 134-146 [facility] Comment on above: Performed By: #### C BCA, CMP #### [facility] ([id number]) [address] [place] [address] #### 2857-1, 86010-5, 67526-2, FEPR, 2276-4 #### [facility] ([id number]) [address], [address] [place] [address] Urea nitrogen [Mass/Vol] 17 mg/dL Normal 5-27 [facility] Comment on above: Performed By: #### C BCA, CMP #### [facility] ([id number]) [address] [place] [address] #### 2857-1, 73442-5, 15679-1, FEPR, 2276-4 #### [facility] ([id number]) [address], [address] [place] [address] CBC AND AUTO DIFFon 10-15-20 24 ABSOLUTE BASOPHIL 0.0 X10E9/L Normal 0.0-0.2 [facility] Comment on above: Performed By: #### C BCA, CMP #### [facility] ([id number]) [address] [place] [address] #### 2857-1, 34887-2, 96804-7, FEPR, 6-4 #### [facility] ([id number]) [address] [facility] [address], [address] [place] [address] ABSOLUTE NEUTROPHIL 4.0 X10E9/L Normal 1.5-6.6 [facility] Comment on above: Performed By: #### C BCA, CMP #### [facility] ([id number]) [address] [place] [address] #### 2857-1, 36593-1, 63756-0, FEPR, 2276-4 #### [facility] ([id number]) [address], [address] [place] [address] Basophils/100 WBC (Bld) 0.5 % Normal [facility] Comment on above: Performed By: #### C BCA, CMP #### [facility] ([id number]) [address] [place] [address] #### 2857-1, 77578-7, 15626-8, FEPR, 2276-4 #### [facility] ([id number]) [address], [address] [place] [address] Eosinophils (Bld) [#/Vol] 0.0 10*3/uL Normal 0.0-0.4 [facility] Comment on above: Performed By: #### C BCA, CMP #### [facility] ([id number]) [address] [place] [address] #### 2857-1, 42661-4, 15564-7, FEPR, 2276-4 #### [facility] ([id number]) [address], [address] [place] [address] Eosinophils/100 WBC (Bld) 0.4 % Normal [facility] Comment on above: Performed By: #### C BCA, CMP #### [facility] ([id number]) [address] [place] [address] #### 2857-1, 88072-7, 32589-8, FEPR, 2276-4 #### [facility] ([id number]) [address], [address] [place] [address] Erythrocyte distribution width (RBC) [Ratio] 15.7 % High 11.5-15.0 [facility] Comment on above: Performed By: #### C BCA, CMP #### [facility] ([id number]) [address] [place] [address] #### 2857-1, 50461-6, 89501-3, FEPR, 2276-4 #### [facility] ([id number]) [address], [address] [place] [address] Hematocrit (Bld) [Volume fraction] 39.9 % Normal 39-49 [facility] Comment on above: Performed By: #### C GARDENIA, CMP #### [facility] ([id number]) [address] [place] [address] #### 2857-1, 14847-4, 23766-9, FEPR, 2276-4 #### [facility] ([id number]) [address], [address] [place] [address] Hemoglobin (Bld) [Mass/Vol] 13.1 g/dL Normal 13.0-17.0 [facility] Comment on above: Performed By: #### C GARDENIA, CMP #### [facility] ([id number]) [address] [place] [address] #### 2857-1, 56608-2, 98243-2, FEPR, 2276-4 #### [facility] ([id number]) [address], [address] [place] [address] Lymphocytes (Bld) [#/Vol] 1.1 10*3/uL Normal 1.0-3.5 [facility] Comment on above: Performed By: #### C GARDENIA, CMP #### [facility] ([id number]) [address] [place] [address] #### 2857-1, 47421-4, 38387-9, FEPR, 2276-4 #### [facility] ([id number]) [address], [address] [place] [address] Lymphocytes/100 WBC (Bld) 18.2 % Normal [facility] Comment on above: Performed By: #### C BCA, CMP #### [facility] ([id number]) [address] [place] [address] #### 2857-1, 83139-4, 56442-0, FEPR, 2276-4 #### [facility] ([id number]) [address] [facility] [facility], [address] [place] [address] MCH (RBC) [Entitic mass] 30.6 pg Normal 27-34 [facility] Comment on above: Performed By: #### C BCA, CMP #### [facility] ([id number]) [address] [place] [address] #### 2857-1, 16508-1, 36110-8, FEPR, 2276-4 #### [facility] ([id number]) [address] [place] [address], [address] [place] [address] MCHC (RBC) [Mass/Vol] 32.8 g/dL Normal 32-36 [facility] Comment on above: Performed By: #### C BCA, CMP #### [facility] ([id number]) [address] [place] [address] #### 2857-1, 04511-7, 53875-8, FEPR, 2276-4 #### [facility] ([id number]) [address] [place] [address], [address] [place] [address] MCV (RBC) [Entitic vol] 93 fL Normal 80-100 [facility] Comment on above: Performed By: #### C BCA, CMP #### [facility] ([id number]) [address] [place] [address] #### 2857-1, 99925-2, 70683-1, FEPR, 2276-4 #### [facility] ([id number]) [facility] [address] [place] [address] Monocytes (Bld) [#/Vol] 0.8 10*3/uL Normal 0-0.9 [facility] Comment on above: Performed By: #### C BCA, CMP #### [facility] ([id number]) [address] [place] [address] #### 2857-1, 02775-7, 73290-3, FEPR, 2276-4 #### [facility] ([id number]) [address], [address] [place] [address] Monocytes/100 WBC (Bld) 13.5 % Normal [facility] Comment on above: Performed By: #### C BCA, CMP #### [facility] ([id number]) [address] [place] [address] #### 2857-1, 33176-4, 22573-7, FEPR, 2276-4 #### [facility] ([id number]) [address], [address] [place] [address] Neutrophils/100 WBC (Bld) 67.4 % Normal [facility] Comment on above: Performed By: #### C BCA, CMP #### [facility] ([id number]) [address] [place] [address] #### 2857-1, 46193-2, 60249-4, FEPR, 2276-4 #### [facility] ([id number]) [address], [address] [place] [address] Platelet mean volume (Bld) [Entitic vol] 7.4 fL Normal 7-12 [facility] Comment on above: Performed By: #### C BCA, CMP #### [facility] ([id number]) [address] [place] [address] #### 2857-1, 55446-3, 32049-3, FEPR, 2276-4 #### [facility] ([id number]) [address], [address] [place] [address] Platelets (Bld) [#/Vol] 284 10*3/uL Normal 150-450 [facility] Comment on above: Performed By: #### C BCA, CMP #### [facility] ([id number]) [address] [place] [address] 56572 #### 2857-1, 34984-4, 40920-3, FEPR, 2276-4 #### [facility] ([id number]) [address], [address] [place] [address] RBC COUNT 4.27 X10E12/L Normal 4.10-5.70 [facility] Comment on above: Performed By: #### C BCA, CMP #### [facility] ([id number]) [address] [place] [address] 47597 #### 2857-1, 50159-4, 44120-7, FEPR, 2276-4 #### [facility] ([id number]) [address], [address] [place] [address] WBC (Bld) [#/Vol] 5.9 10*3/uL Normal 4.0-11.0 [facility] Comment on above: Performed By: #### C BCA, CMP #### [facility] ([id number]) [address] [place] [address] 36492 #### 2857-1, 86138-5, 96269-7, FEPR, 2276-4 #### [facility] ([id number]) [address], [address] [place] [address]RAIN WO CONTon CT BRAIN WO CONT CT BRAIN WO CONT CT BRAIN WITHOUT CONTRAST COMPARISON: 12/28/2020 HISTORY: Injury and pain. TECHNIQUE: Unenhanced axial images of the brain were obtained. Automatic exposure control (AEC) was utilized. FINDINGS: There is no evidence for acute intracranial hemorrhage. There is no hydrocephalus, mass effect, or midline shift. Rivera-white differentiation is preserved with no CT evidence for an acute infarct. IMPRESSION: No evidence for an acute intracranial process. All CT scans at this facility use dose modulation, iterative reconstruction, and/or weight based dosing when appropriate to reduce radiation dose to as low as reasonably achievable. Finalized by Gayatri Avila DO on 04/16/2024 2:16 PM Normal [facility] CT CERVICAL SPINE WO CONTon 04-16-2024 CT CERVICAL SPINE WO CONT CT CERVICAL SPINE WO CONT CT CERVICAL SPINE WITHOUT CONTRAST COMPARISON: 12/28/2020 HISTORY: Injury, fall, pain. TECHNIQUE: Unenhanced axial images of the cervical spine obtained with sagittal and coronal 2-D reformatted images. Automatic exposure control (AEC) was utilized. FINDINGS: Alignment is normal. The visualized paranasal sinuses and mastoid air cells are well aerated. The base of the skull is normal. There are no fractures or subluxations seen. There are multilevel degenerative changes. The prevertebral soft tissues are normal IMPRESSION: No acute fracture or subluxation All CT scans at this facility use dose modulation, iterative reconstruction, and/or weight based dosing when appropriate to reduce radiation dose to as low as reasonably achievable. Finalized by Gayatri Avila DO on 04/16/2024 2:24 PM Normal [facility] CT FACIAL BONES WO CONTon CT FACIAL BONES WO CONT CT FACIAL BONES WO CONT CT FACIAL BONES WO CONT 04/16/2024 1:56 PM SIGNS AND SYMPTOMS: Fall, pain TECHNIQUE: Multidetector CT axial slices of the facial bones were obtained. Helical, sagittal, coronal, and 3-D reconstructions were performed and viewed on a separate workstation and reviewed to further define anatomy and possible pathology. CT was performed with one or more of the following dose reduction techniques: Automated exposure control, adjustment of the mA and/or kV according to patient size, or use of iterative reconstruction technique. COMPARISON: None. FINDINGS: Fracture: Minimally displaced nasal bone fracture. Mucosal thickening inspissated material within the adjacent nasal turbinate. Paranasal sinuses and mastoids: Well aerated Soft tissue swelling: None. Globes: Intact. Upper aerodigestive tract: Within normal limits. Joints: Intact. Temporal mandibular joints: Intact. Infratemporal fossa: Within normal limits. IMPRESSION: Minimally displaced nasal bone fracture. Finalized by Morris Lau on 04/16/2024 2:30 PM Normal [facility] PROTIME AND INRon 04-16-2024 INR Coag (PPP) [Relative time] 2.1 {INR} High 0.8-1.1 [facility] Comment on above: Performed By: #### Jerry VARNER, CMP #### [facility] ([id number]) [address] [place] [address]45 #### 2857-1, 95715-6, 77072-3, FEPR, 2276-4 #### [facility] ([id number]) [address], [address] [place] [address] PT Coag (PPP) [Time] 23.7 s High 9.8-13.2 [facility] Comment on above: Result Comment: NEW REFERENCE RANGE Performed By: #### C GARDENIA, CMP #### [facility] ([id number]) [address] [place] [address]408 #### 2857-1, 53076-5, 50930-1, FEPR, 2276-4 #### [facility] ([id number]) [address], [address] [place] [address] aPTT Coag (PPP) [Time]on aPTT Coag (Bld) [Time] 48 s High 26-37 [facility] Comment on above: Result Comment: NEW REFERENCE RANGE Performed By: #### Jerry BCA, CMP #### [facility] ([id number]) [address] [place] [address] 91072 #### 2857-1, 28676-0, 22157-5, FEPR, 2276-4 #### [facility] ([id number]) [address], [address] [place] [address] MR LUMBAR SPINE WO CONTon MR LUMBAR [...] right paracentral disc protrusion minimally displaces without jordy impinging the right L5 nerve root in the lateral recess. 4. Moderate narrowing of the L2-3 and L4-5 neural foramina. Finalized by Baldo Stephens MD on 04/01/2024 10:47 PM Normal [facility] XR HIP LT 2-3 VIEWS W OR [...] Jaramillo MD on 12/26/2023 10:07 AM Normal [facility] XR SPINE LUMBAR 2 OR 3 VWSon [...] Jaramillo MD on 12/26/2023 10:10 AM Normal [facility] CBC AND AUTO DIFFon 09-22-19 24 ABSOLUTE BASOPHIL 0.0 X10E9/L Normal 0.0-0.2 [facility] Comment on above: Performed By: #### C BCA, CMP, THYR #### [facility] ([id number]) [address] [place] [address] #### 2857-1, 64674-2, 28218-1 #### [facility] ([id number]) [address] [facility] [place] [address] ABSOLUTE NEUTROPHIL 4.3 X10E9/L Normal 1.5-6.6 [facility] Comment on above: Performed By: #### C BCA, CMP, THYR #### [facility] ([id number]) [address] [place] [address] 10024 #### 2857-1, 41123-3, 72070-3 #### [facility] ([id number]) [facility], [address] [place] [address] Basophils/100 WBC (Bld) 0.5 % Normal [facility] Comment on above: Performed By: #### C BCA, CMP, THYR #### [facility] ([id number]) [address] [place] [address] 77686 #### 2857-1, 64496-5, 34646-1 #### [facility] ([id number]) [address] [place] [address], [address] [address] Eosinophils (Bld) [#/Vol] 0.0 10*3/uL Normal 0.0-0.4 [facility] Comment on above: Performed By: #### C BCA, CMP, THYR #### [facility] ([id number]) [address] [place] [address] 40620 #### 2857-1, 95989-6, 06033-7 #### [facility] ([id number]) [address] [place] [address], [address] [place] [address] Eosinophils/100 WBC (Bld) 0.7 % Normal [facility] Comment on above: Performed By: #### C BCA, CMP, THYR #### [facility] ([id number]) [address] [place] [address] #### 2857-1, 40568-5, 40285-9 #### [facility] ([id number]) [address], [address] [place] [address] Erythrocyte distribution width (RBC) [Ratio] 15.8 % High 11.5-15.0 [facility] Comment on above: Performed By: #### C BCA, CMP, THYR #### [facility] ([id number]) [address] [place] [address] 09009 #### 2857-1, 07898-2, 35989-7 #### [facility] ([id number]) [address] [facility], [address] [place] [address] Hematocrit (Bld) [Volume fraction] 39.8 % Normal 39-49 [facility] Comment on above: Performed By: #### C BCA, CMP, THYR #### [facility] ([id number]) [address] [place] [address] 12636 #### 2857-1, 27217-7, 66743-5 #### [facility] ([id number]) [address] [facility], [address] [place] [address] Hemoglobin (Bld) [Mass/Vol] 13.2 g/dL Normal 13.0-17.0 [facility] Comment on above: Performed By: #### C BCA, CMP, THYR #### [facility] ([id number]) [address] [place] [address]502 #### 2857-1, 40607-8, 47623-8 #### [facility] ([id number]) [address], [address] [place] [address] Lymphocytes (Bld) [#/Vol] 1.1 10*3/uL Normal 1.0-3.5 [facility] Comment on above: Performed By: #### C BCA, CMP, THYR #### [facility] ([id number]) [address] [place] [address] 53146 #### 2857-1, 82590-2, 40712-8 #### [facility] ([id number]) [address], [address] [place] [address] Lymphocytes/100 WBC (Bld) 17.7 % Normal [facility] Comment on above: Performed By: #### C BCA, CMP, THYR #### [facility] ([id number]) [address] [place] [address] 71052 #### 2857-1, 50532-0, 59387-0 #### [facility] ([id number]) [address] [facility], [address] [place] [address] MCH (RBC) [Entitic mass] 29.8 pg Normal 27-34 [facility] Comment on above: Performed By: #### C BCA, CMP, THYR #### [facility] ([id number]) [address] [place] [address] 33887 #### 2857-1, 43261-6, 22046-8 #### [facility] ([id number]) [address] [facility] [place] [address] MCHC (RBC) [Mass/Vol] 33.1 g/dL Normal 32-36 [facility] Comment on above: Performed By: #### C BCA, CMP, THYR #### [facility] ([id number]) [address] [place] [address] 67099 #### 2857-1, 86770-2, 52630-1 #### [facility] ([id number]) [address], [address] [place] [address] MCV (RBC) [Entitic vol] 90 fL Normal 80-100 [facility] Comment on above: Performed By: #### C BCA, CMP, THYR #### [facility] ([id number]) [address] [place] [address] 82597 #### 2857-1, 29448-6, 59913-9 #### [facility] ([id number]) [address], [address] [place] [address] Monocytes (Bld) [#/Vol] 0.8 10*3/uL Normal 0-0.9 [facility] Comment on above: Performed By: #### C BCA, CMP, THYR #### [facility] ([id number]) [address] [place] [address] #### 2857-1, 71824-6, 28513-1 #### [facility] ([id number]) [address], [address] [place] [address] Monocytes/100 WBC (Bld) 12.8 % Normal [facility] Comment on above: Performed By: #### C BCA, CMP, THYR #### [facility] ([id number]) [address] [place] [address] 92533 #### 2857-1, 08327-6, 30510-5 #### [facility] ([id number]) [address], [address] [place] [address] Neutrophils/100 WBC (Bld) 68.3 % Normal [facility] Comment on above: Performed By: #### C BCA, CMP, THYR #### [facility] ([id number]) [address] [place] [address] 36655 #### 2857-1, 66335-4, 99457-8 #### [facility] ([id number]) [address], [address] [place] [address] Platelet mean volume (Bld) [Entitic vol] 7.8 fL Normal 7-12 [facility] Comment on above: Performed By: #### C BCA, CMP, THYR #### [facility] ([id number]) [address] [place] [address]114 #### 2857-1, 02800-5, 45739-5 #### [facility] ([id number]) [address], [address] [place] [address] Platelets (Bld) [#/Vol] 259 10*3/uL Normal 150-450 [facility] Comment on above: Performed By: #### C BCA, CMP, THYR #### [facility] ([id number]) [address] [place] [address] 27533 #### 2857-1, 77195-2, 58420-0 #### [facility] ([id number]) [address], [address] [place] [address] RBC COUNT 4.42 X10E12/L Normal 4.10-5.70 [facility] Comment on above: Performed By: #### C BCA, CMP, THYR #### [facility] ([id number]) [address] [place] [address] 04352 #### 2857-1, 03965-5, 97441-5 #### [facility] ([id number]) [address], [address] [place] [address] WBC (Bld) [#/Vol] 6.2 10*3/uL Normal 4.0-11.0 [facility] Comment on above: Performed By: #### C BCA, CMP, THYR #### [facility] ([id number]) [address] [place] [address] 61391 #### 2857-1, 11147-8, 11898-2 #### [facility] ([id number]) [address], [address] [place] [address] COMPREHENSIVE METABOLIC PANE Alex 09-22-2023 Albumin [Mass/Vol] 4.2 g/dL Normal 3.2-5.3 [facility] Comment on above: Performed By: #### C BCA, CMP #### [facility] ([id number]) [address] [place] [address] 92413 #### 2857-1, 30361-2, 82522-1, FEPR, 2276-4 #### [facility] ([id number]) [address] [facility], [address] [place] [address] ALP [Catalytic activity/Vol] 41 U/L Normal 39-130 [facility] Comment on above: Performed By: #### C BCA, CMP #### [facility] ([id number]) [address] [place] [address]758 #### 2857-1, 46212-9, 59983-6, FEPR, 2276-4 #### [facility] ([id number]) [address] [facility] [place] [address] ALT [Catalytic activity/Vol] 17 U/L Normal 0-40 [facility] Comment on above: Performed By: #### C BCA, CMP #### [facility] ([id number]) [address] [place] [address] 82364 #### 2857-1, 89758-5, 51659-3, FEPR, 2276-4 #### [facility] ([id number]) [address] [facility], [address] [place] [address] Anion gap [Moles/Vol] 6 mmol/L Normal 5-15 [facility] Comment on above: Performed By: #### C BCA, CMP #### [facility] ([id number]) [address] [place] [address]329 #### 2857-1, 46462-1, 13069-1, FEPR, 2276-4 #### [facility] ([id number]) [address], [address] [place] [address] AST [Catalytic activity/Vol] 20 U/L Normal 0-41 [facility] Comment on above: Performed By: #### C BCA, CMP #### [facility] ([id number]) [address] [place] [address] 28780 #### 2857-1, 48657-3, 21577-6, FEPR, 2276-4 #### [facility] ([id number]) [address] [facility] [place] [address] Bilirubin [Mass/Vol] 0.4 mg/dL Normal 0.3-1.2 [facility] Comment on above: Performed By: #### C BCA, CMP #### [facility] ([id number]) [address] [place] [address] 28786 #### 2857-1, 80130-8, 79605-2, FEPR, 2276-4 #### [facility] ([id number]) [address] [facility], [address] [place] [address] Calcium [Mass/Vol] 9.3 mg/dL Normal 8.5-10.5 [facility] Comment on above: Performed By: #### C BCA, CMP #### [facility] ([id number]) [address] [place] [address]151 #### 2857-1, 04712-2, 00587-0, FEPR, 2276-4 #### [facility] ([id number]) [address], [address] [place] [address] Chloride [Moles/Vol] 103 mmol/L Normal 98-109 [facility] Comment on above: Performed By: #### C BCA, CMP #### [facility] ([id number]) [address] [place] [address] 91898 #### 2857-1, 62223-8, 62194-8, FEPR, 2276-4 #### [facility] ([id number]) [address], [address] [place] [address] CO2 [Moles/Vol] 27 mmol/L Normal 22-32 [facility] Comment on above: Performed By: #### C BCA, CMP #### [facility] ([id number]) [address] [place] [address] #### 2857-1, 51565-6, 97638-6, FEPR, 2276-4 #### [facility] ([id number]) [address], [address] [place] [address] Creatinine [Mass/Vol] 1.12 mg/dL Normal 0.70-1.20 [facility] Comment on above: Result Comment: METH OD TRACEABLE TO IDMS STANDARD Performed By: #### C BCA, CMP #### [facility] ([id number]) [address] [place] [address]25 #### 2857-1, 64807-2, 76606-1, FEPR, 2276-4 #### [facility] ([id number]) [address], [address] [place] [address] GFR/1.73 sq M.predicted among non-blacks MDRD (S/P/Bld) [Vol rate/Area] 71 mL/min/{1.73_m2} Normal >59 [facility] Comment on above: Result Comment: Reported eGFR is based on the CKD-EPI 2020 equation that does not use a race coefficient. Performed By: #### C BCA, CMP #### [facility] ([id number]) [address] [place] [address] 03766 #### 2857-1, 60543-2, 75293-3, FEPR, 2276-4 #### [facility] ([id number]) [address], [address] [place] [address] Glucose [Mass/Vol] 178 mg/dL High 65-99 [facility] Comment on above: Performed By: #### C BCA, CMP #### [facility] ([id number]) [address] [place] [address]379 #### 2857-1, 64691-4, 18712-4, FEPR, 2276-4 #### [facility] ([id number]) [address], [address] [place] [address] Potassium [Moles/Vol] 4.6 mmol/L Normal 3.5-5.0 [facility] Comment on above: Performed By: #### C BCA, CMP #### [facility] ([id number]) [address] [place] [address]4731 #### 2857-1, 15211-0, 15111-3, FEPR, 2276-4 #### [facility] ([id number]) [address] [facility] [place] [address] Protein [Mass/Vol] 7.8 g/dL Normal 6.0-8.0 [facility] Comment on above: Performed By: #### C BCA, CMP #### [facility] ([id number]) [address] [place] [address] 09718 #### 2857-1, 41724-0, 88044-2, FEPR, 2276-4 #### [facility] ([id number]) [address], [address] [place] [address] Sodium [Moles/Vol] 136 mmol/L Normal 134-146 [facility] Comment on above: Performed By: #### C BCA, CMP #### [facility] ([id number]) [address] [place] [address] 55237 #### 2857-1, 09660-4, 40056-0, FEPR, 2276-4 #### [facility] ([id number]) [address], [address] [place] [address] Urea nitrogen [Mass/Vol] 18 mg/dL Normal 5-27 [facility] Comment on above: Performed By: #### C BCA, CMP #### [facility] ([id number]) [address] [place] [address] 04460 #### 2857-1, 57661-1, 04673-5, FEPR, 2276-4 #### [facility] ([id number]) [address] [facility], [address] [place] [address] HCV Ab IA Qlon 09-22-2023 ANTI HCV W/PCR REFLX Non-Reactive Normal NRCT [facility] Comment on above: Result Comment: If recent infection suspected, recommend repeat testing (>2 months). Vlthpq-wy-ipegsm ratio is <0.80. Performed By: #### C BCA, CMP #### [facility] ([id number]) [address] [place] [address]18 #### 2857-1, 04145-9, 82845-5, FEPR, 2276-4 #### [facility] ([id number]) [address], [address] [place] [address] HGB A1C (GLYCO-HGB)on 2023 Glucose [Mass/Vol] 180 mg/dL Normal [facility] Comment on above: Performed By: #### C BCA, CMP #### [facility] ([id number]) [address] [place] [address] 52815 #### 2857-1, 84783-0, 33900-6, FEPR, 2276-4 #### [facility] ([id number]) [address], [address] [place] [address] HbA1c (Bld) [Mass fraction] 7.9 % High 4.4-5.6 [facility] Comment on above: Result Comment: NOTE ADA Guidelines Result HgbA1c Normal : less than 5.7 % Prediabetes : 5.7 % to 6.4 % Diabetes : > 6.4 % Use with caution in patients with abnormal hemoglobin variants as the half-life of red blood cells and in vivo glycation rates are affected. Performed By: #### C BCA, CMP #### [facility] ([id number]) [address] [place] [address] 62456 #### 2857-1, 24262-7, 25841-1, FEPR, 2276-4 #### [facility] ([id number]) [address] [facility] [place] [address] Prostate specific Ag [Mass/V ol]on 09-22-2023 PSA SCREEN 0.89 ng/mL Normal 0.00-4.00 [facility] Comment on above: Result Comment: The method used for this test is Louis Riana DXI chemiluminescent immunoassay. Values obtained by different assay methods cannot be used interchangeably. Performed By: #### C BCA, CMP #### [facility] ([id number]) [address] [place] [address] 12619 #### 2857-1, 33009-2, 94270-5, FEPR, 2276-4 #### [facility] ([id number]) [address], [address] [place] [address] THYROID PROFILEon 09-22-2023 Free T4 [Mass/Vol] 1.03 ng/dL Normal 0.61-1.60 [facility] Comment on above: Performed By: #### C BCA, CMP #### [facility] ([id number]) [address] [place] [address] #### 2857-1, 51987-7, 21425-6, FEPR, 2276-4 #### [facility] ([id number]) [address] [place] [address] TSH 4.47 uIU/mL Normal 0.49-4.67 [facility] Comment on above: Performed By: #### C GARDENIA, CMP #### [facility] ([id number]) [address] [place] [address] #### 2857-1, 32372-5, 99829-3, FEPR, 2276-4 #### [facility] ([id number]) [facility], [address] [address] Vitamin D+Metabolites [Mass/ Vol]on 09-22-2023 VITAMIN D 25 HYD TOT 23.7 ng/mL Low 30-100 [facility] Comment on above: Result Comment: Vitamin D status 25 [place] Vitamin D Deficiency <20 ng/mL Insufficiency 20-29 ng/mL Sufficiency 30-100 ng/mL Toxicity >100 ng/mL NOTE: A pediatric reference range has not been established by the cotton bag sewer of this kit. The [employer] recommends a Vitamin D level of = or >20ng/mL in infants and children. Performed By: #### C GARDENIA, CMP #### [facility] ([id number]) [address] [place] [address] #### 2857-1, 11887-8, 74468-0, FEPR, 2276-4 #### [facility] [facility] ([id number]) [facility] [address] [address] CBC AND AUTO DIFFon 08-02-19 24 ABSOLUTE BASOPHIL 0.0 X10E9/L Normal 0.0-0.2 [facility] Comment on above: Performed By: #### C GARDENIA, CMP #### [facility] ([id number]) [address] [place] [address] #### 2857-1, 80644-7, 61730-9, FEPR, 2276-4 #### [facility] ([id number]) [address], [address] [place] [address] ABSOLUTE NEUTROPHIL 4.4 X10E9/L Normal 1.5-6.6 [facility] Comment on above: Performed By: #### C BCA, CMP #### [facility] ([id number]) [address] [place] [address] #### 2857-1, 63085-4, 00073-9, FEPR, 6-4 #### [facility] ([id number]) [address], [address] [place] [address] Basophils/100 WBC (Bld) 0.5 % Normal [facility] Comment on above: Performed By: #### C BCA, CMP #### [facility] ([id number]) [address] [place] [address] #### 2857-1, 02836-6, 44623-6, FEPR, 6-4 #### [facility] ([id number]) [address], [address] [place] [address] Eosinophils (Bld) [#/Vol] 0.1 10*3/uL Normal 0.0-0.4 [facility] Comment on above: Performed By: #### C BCA, CMP #### [facility] ([id number]) [address] [place] [address] #### 2857-1, 43660-8, 98193-6, FEPR, 2276-4 #### [facility] ([id number]) [address], [address] [place] [address] Eosinophils/100 WBC (Bld) 0.9 % Normal [facility] Comment on above: Performed By: #### C BCA, CMP #### [facility] ([id number]) [address] [place] [address] #### 2857-1, 18977-6, 20611-5, FEPR, 2276-4 #### [facility] ([id number]) [address], [address] [place] [address] Erythrocyte distribution width (RBC) [Ratio] 15.7 % High 11.5-15.0 [facility] Comment on above: Performed By: #### C BCA, CMP #### [facility] ([id number]) [address] [place] [address] #### 2857-1, 43760-1, 35611-0, FEPR, 2276-4 #### [facility] ([id number]) [address] [facility] [place] [address] Hematocrit (Bld) [Volume fraction] 38.3 % Low 39-49 [facility] Comment on above: Performed By: #### C BCA, CMP #### [facility] ([id number]) [address] [place] [address] #### 2857-1, 40033-9, 96037-0, FEPR, 2276-4 #### [facility] ([id number]) [facility] [facility] [place] [address] Hemoglobin (Bld) [Mass/Vol] 12.5 g/dL Low 13.0-17.0 [facility] Comment on above: Performed By: #### C BCA, CMP #### [facility] ([id number]) [address] [place] [address] #### 2857-1, 24738-5, 30275-7, FEPR, 2276-4 #### [facility] ([id number]) [address], [address] [place] [address] Lymphocytes (Bld) [#/Vol] 1.2 10*3/uL Normal 1.0-3.5 [facility] Comment on above: Performed By: #### C BCA, CMP #### [facility] ([id number]) [address] [place] [address] #### 2857-1, 26942-2, 29298-4, FEPR, 2276-4 #### [facility] ([id number]) [address] [facility] [place] [address] Lymphocytes/100 WBC (Bld) 18.4 % Normal [facility] Comment on above: Performed By: #### C BCA, CMP #### [facility] ([id number]) [address] [place] [address] #### 2857-1, 87255-6, 84606-0, FEPR, 2276-4 #### [facility] ([id number]) [address] [facility] [place] [address] MCH (RBC) [Entitic mass] 29.1 pg Normal 27-34 [facility] Comment on above: Performed By: #### C BCA, CMP #### [facility] ([id number]) [address] [place] [address] #### 2857-1, 10499-9, 31066-0, FEPR, 2276-4 #### [facility] ([id number]) [address], [address] [place] [address] MCHC (RBC) [Mass/Vol] 32.7 g/dL Normal 32-36 [facility] Comment on above: Performed By: #### C BCA, CMP #### [facility] ([id number]) [address] [place] [address] #### 2857-1, 23485-5, 31302-0, FEPR, 2276-4 #### [facility] ([id number]) [address], [address] [place] [address] MCV (RBC) [Entitic vol] 89 fL Normal 80-100 [facility] Comment on above: Performed By: #### C BCA, CMP #### [facility] ([id number]) [address] [place] [address] #### 2857-1, 77155-2, 05824-1, FEPR, 2276-4 #### [facility] ([id number]) [address], [address] [place] [address] Monocytes (Bld) [#/Vol] 1.0 10*3/uL High 0-0.9 [facility] Comment on above: Performed By: #### C BCA, CMP #### [facility] ([id number]) [address] [place] [address] #### 2857-1, 16645-9, 71687-8, FEPR, 2276-4 #### [facility] ([id number]) [address], [address] [place] [address] Monocytes/100 WBC (Bld) 14.3 % Normal [facility] Comment on above: Performed By: #### C BCA, CMP #### [facility] ([id number]) [address] [place] [address] #### 2857-1, 99049-7, 43325-6, FEPR, 2276-4 #### [facility] ([id number]) [address], [address] [place] [address] Neutrophils/100 WBC (Bld) 65.9 % Normal [facility] Comment on above: Performed By: #### C BCA, CMP #### [facility] ([id number]) [address] [place] [address] #### 2857-1, 01114-8, 82728-5, FEPR, 2276-4 #### [facility] ([id number]) [address], [address] [place] [address] Platelet mean volume (Bld) [Entitic vol] 8.3 fL Normal 7-12 [facility] Comment on above: Performed By: #### C BCA, CMP #### [facility] ([id number]) [address] [place] [address] #### 2857-1, 20295-2, 00814-7, FEPR, 2276-4 #### [facility] ([id number]) [address], [address] [place] [address] Platelets (Bld) [#/Vol] 271 10*3/uL Normal 150-450 [facility] Comment on above: Performed By: #### C BCA, CMP #### [facility] ([id number]) [address] [place] [address] #### 2857-1, 23050-2, 69732-4, FEPR, 2276-4 #### [facility] ([id number]) [address], [address] [place] [address] RBC COUNT 4.31 X10E12/L Normal 4.10-5.70 [facility] Comment on above: Performed By: #### C BCA, CMP #### [facility] ([id number]) [address] [place] [address] #### 2857-1, 58003-2, 88302-6, FEPR, 2276-4 #### [facility] ([id number]) [address], [address] [place] [address] WBC (Bld) [#/Vol] 6.7 10*3/uL Normal 4.0-11.0 [facility] Comment on above: Performed By: #### C BCA, CMP #### [facility] ([id number]) [address] [place] [address] #### 2857-1, 28803-7, 78080-7, FEPR, 2276-4 #### [facility] ([id number]) [address] [facility] [place] [address] COMPREHENSIVE METABOLIC PANE Alex 08-02-2023 Albumin [Mass/Vol] 3.8 g/dL Normal 3.2-5.3 [facility] Comment on above: Performed By: #### C BCA, CMP #### [facility] ([id number]) [address] [place] [address]88 #### 2857-1, 53489-3, 05274-0, FEPR, 2276-4 #### [facility] ([id number]) [address] [facility] [place] [address] ALP [Catalytic activity/Vol] 48 U/L Normal 39-130 [facility] Comment on above: Performed By: #### C BCA, CMP #### [facility] ([id number]) [address] [place] [address] #### 2857-1, 95879-7, 40238-7, FEPR, 2276-4 #### [facility] ([id number]) [address] [facility] [place] [address] ALT [Catalytic activity/Vol] 18 U/L Normal 0-40 [facility] Comment on above: Performed By: #### C BCA, CMP #### [facility] ([id number]) [address] [place] [address]7774 #### 2857-1, 24619-2, 17976-6, FEPR, 2276-4 #### [facility] ([id number]) [address], [address] [place] [address] Anion gap [Moles/Vol] 9 mmol/L Normal 5-15 [facility] Comment on above: Performed By: #### C BCA, CMP #### [facility] ([id number]) [address] [place] [address] 62285 #### 2857-1, 43812-3, 31086-0, FEPR, 2276-4 #### [facility] ([id number]) [address] [facility] [place] [address] AST [Catalytic activity/Vol] 24 U/L Normal 0-41 [facility] Comment on above: Performed By: #### C BCA, CMP #### [facility] ([id number]) [address] [place] [address] 60425 #### 2857-1, 08501-9, 41694-9, FEPR, 2276-4 #### [facility] ([id number]) [address] [facility] [place] [address] Bilirubin [Mass/Vol] 0.6 mg/dL Normal 0.3-1.2 [facility] Comment on above: Performed By: #### C BCA, CMP #### [facility] ([id number]) [address] [place] [address] 16998 #### 2857-1, 68814-7, 50809-9, FEPR, 2276-4 #### [facility] ([id number]) [address], [address] [place] [address] Calcium [Mass/Vol] 9.0 mg/dL Normal 8.5-10.5 [facility] Comment on above: Performed By: #### C BCA, CMP #### [facility] ([id number]) [address] [place] [address] #### 2857-1, 07139-1, 07626-5, FEPR, 2276-4 #### [facility] ([id number]) [address], [address] [place] [address] Chloride [Moles/Vol] 98 mmol/L Normal 98-109 [facility] Comment on above: Performed By: #### C BCA, CMP #### [facility] ([id number]) [address] [place] [address] 13854 #### 2857-1, 65493-2, 87711-9, FEPR, 2276-4 #### [facility] ([id number]) [address] [facility] [place] [address] CO2 [Moles/Vol] 28 mmol/L Normal 22-32 [facility] Comment on above: Performed By: #### C BCA, CMP #### [facility] ([id number]) [address] [place] [address] 69638 #### 2857-1, 84262-4, 78993-4, FEPR, 2276-4 #### [facility] ([id number]) [address], [address] [place] [address] Creatinine [Mass/Vol] 0.93 mg/dL Normal 0.70-1.20 [facility] Comment on above: Result Comment: METH OD TRACEABLE TO IDMS STANDARD Performed By: #### C BCA, CMP #### [facility] ([id number]) [address] [place] [address] 04922 #### 2857-1, 19393-4, 58405-3, FEPR, 2276-4 #### [facility] ([id number]) [address], [address] [place] [address] GFR/1.73 sq M.predicted among non-blacks MDRD (S/P/Bld) [Vol rate/Area] 89 mL/min/{1.73_m2} Normal >59 [facility] Comment on above: Result Comment: Reported eGFR is based on the CKD-EPI 2020 equation that does not use a race coefficient. Performed By: #### C BCA, CMP #### [facility] ([id number]) [address] [place] [address] 94384 #### 2857-1, 59093-5, 15301-9, FEPR, 2276-4 #### [facility] ([id number]) [address], [address] [place] [address] Glucose [Mass/Vol] 193 mg/dL High 65-99 [facility] Comment on above: Performed By: #### C BCA, CMP #### [facility] ([id number]) [address] [place] [address] 58531 #### 2857-1, 07178-6, 02445-9, FEPR, 2276-4 #### [facility] ([id number]) [address], [address] [place] [address] Potassium [Moles/Vol] 4.8 mmol/L Normal 3.5-5.0 [facility] Comment on above: Performed By: #### C BCA, CMP #### [facility] ([id number]) [address] [place] [address] 14529 #### 2857-1, 64373-5, 10176-2, FEPR, 2276-4 #### [facility] ([id number]) [address], [address] [place] [address] Protein [Mass/Vol] 7.8 g/dL Normal 6.0-8.0 [facility] Comment on above: Performed By: #### C BCA, CMP #### [facility] ([id number]) [address] [place] [address] 19387 #### 2857-1, 63507-5, 22133-9, FEPR, 2276-4 #### [facility] ([id number]) [address] [facility], [address] [place] [address] Sodium [Moles/Vol] 135 mmol/L Normal 134-146 [facility] Comment on above: Performed By: #### C BCA, CMP #### [facility] ([id number]) [address] [place] [address] 48182 #### 2857-1, 35200-8, 55859-0, FEPR, 2276-4 #### [facility] ([id number]) [facility] [facility], [address] [place] [address] Urea nitrogen [Mass/Vol] 20 mg/dL Normal 5-27 [facility] Comment on above: Performed By: #### C BCA, CMP #### [facility] ([id number]) [address] [place] [address] 79175 #### 2857-1, 76630-8, 30935-2, FEPR, 2276-4 #### [facility] ([id number]) [address] [place] [address], [address] [place] [address] FERRITINon 08-02-2023 Ferritin [Mass/Vol] 29 ng/mL Normal 24-336 [facility] Comment on above: Performed By: #### C BCA, CMP #### [facility] ([id number]) [address] [place] [address] 48515 #### 2857-1, 17253-0, 20234-9, FEPR, 2276-4 #### [facility] ([id number]) [facility] [facility], [address] [place] [address] HCV Ab IA Qlon 08-02-2023 ANTI HCV W/PCR REFLX Non-Reactive Normal NRCT [facility] Comment on above: Result Comment: If recent infection suspected, recommend repeat testing (>2 months). Uopymj-dv-cnyofj ratio is <0.80. Performed By: #### C BCA, CMP #### [facility] ([id number]) [address] [place] [address] 86233 #### 2857-1, 69787-7, 71479-8, FEPR, 2276-4 #### [facility] ([id number]) [address] [facility] [place] [address] HGB A1C (GLYCO-HGB)on 2023 Glucose [Mass/Vol] 189 mg/dL Normal [facility] Comment on above: Performed By: #### C BCA, CMP #### [facility] ([id number]) [address] [place] [address] 66984 #### 2857-1, 47876-3, 60960-5, FEPR, 2276-4 #### [facility] ([id number]) [address] [facility] [place] [address] HbA1c (Bld) [Mass fraction] 8.2 % High 4.4-5.6 [facility] Comment on above: Result Comment: NOTE ADA Guidelines Result HgbA1c Normal : less than 5.7 % Prediabetes : 5.7 % to 6.4 % Diabetes : > 6.4 % Use with caution in patients with abnormal hemoglobin variants as the half-life of red blood cells and in vivo glycation rates are affected. Performed By: #### C BCA, CMP #### [facility] ([id number]) [address] [place] [address] #### 2857-1, 07057-5, 27602-1, FEPR, 2276-4 #### [facility] ([id number]) [address] [facility] [place] [address] IRON PROFILEon 08-02-2023 Iron [Mass/Vol] 47 ug/dL Low 50-212 [facility] Comment on above: Performed By: #### C BCA, CMP #### [facility] ([id number]) [address] [place] [address] 07576 #### 2857-1, 65692-8, 57457-8, FEPR, 2276-4 #### [facility] ([id number]) [address] [place] [address], [address] [address] IRON BINDING 379 ug/dL Normal 250-425 [facility] Comment on above: Performed By: #### C BCA, CMP #### [facility] ([id number]) [address] [place] [address] 99515 #### 2857-1, 05004-0, 07265-2, FEPR, 2276-4 #### [facility] ([id number]) [address] [place] [address], [address] [address] IRON SATURATION 12 % SATURATION Low 20-50 [facility] Comment on above: Performed By: #### C BCA, CMP #### [facility] ([id number]) [address] [place] [address]641 #### 2857-1, 26601-4, 46414-7, FEPR, 2276-4 #### [facility] ([id number]) [address] [place] [address], [address] [address] Prostate specific Ag [Mass/V ol]on 08-02-2023 PSA SCREEN 0.52 ng/mL Normal 0.00-4.00 [facility] Comment on above: Result Comment: The method used for this test is [employer] DXI chemiluminescent immunoassay. Values obtained by different assay methods cannot be used interchangeably. Performed By: #### C BCA, CMP #### [facility] ([id number]) [address] [place] [address]10 #### 2857-1, 83880-1, 87185-7, FEPR, 2276-4 #### [facility] ([id number]) [address] [facility], [address] [place] [address] Vitamin D+Metabolites [Mass/ Vol]on 08-02-2023 VITAMIN D 25 HYD TOT 19.2 ng/mL Low 30-100 [facility] Comment on above: Result Comment: Vitamin D status 25 [place] Vitamin D Deficiency <20 ng/mL Insufficiency 20-29 ng/mL Sufficiency 30-100 ng/mL Toxicity >100 ng/mL NOTE: A pediatric reference range has not been established by the cotton bag sewer of this kit. The [employer] recommends a Vitamin D level of = or >20ng/mL in infants and children. Performed By: #### C GARDENIA, CMP #### [facility] ([id number]) [address] [place] [address], [place] [address] #### 2857-1, 25725-6, 25962-0, FEPR, 2276-4 #### [facility] ([id number]) [facility] [place] [address] XR SPINE CERVICAL 3 VWS OR L [...] Ash MD on 06/29/2023 3:36 PM Normal [facility] Vital Signs Date Time Vital Sign Value Performing Clinician Facility 04-09-2024 10:12-0400 Body height 175.3 cm Bebeto LEON Work Phone: [facility] Comment on above: stated 04-09-2024 10:12-0400 Body mass index (BMI) [Ratio] 27.62 kg/m2 Bebeto LEON Work Phone: [facility] [employer] [facility] 04-09-2024 10:12-0400 Body weight 84.82 kg Bebeto LEON Work Phone: [facility] 04-09-2024 10:12-0400 Diastolic blood pressure 97 mm[Hg] Bebeto Haq PA Work Phone: [facility] [employer] [facility] 04-09-2024 10:12-0400 Heart rate 63 /min Bebeto Haq PA Work Phone: [facility] 04-09-2024 10:12-0400 Respiratory rate 16 /min Bebeto Haq PA Work Phone: [facility] 04-09-2024 10:12-0400 SaO2% (BldA) [Mass fraction] 100 % Bebeto LEON Work Phone: [facility] [employer] [facility] 04-09-2024 10:12-0400 Systolic blood pressure 141 mm[Hg] Beebto LEON Work Phone: [facility] Encounters Encounter Date Encounter Type Care Provider Facility Start: 04-16-2024 End: 04-16-2024 Emergency department patient [facility] Start: 04-09-2024 End: 04-09-2024 Office outpatient visit 25 minutes Bebeto LEON Work Phone: [facility] Comment on above: Lumbosacral 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 (Primary Dx) Start: 04-09-2024 End: 04-09-2024 ambulatory BEBETO Ede KHADARCHAUNCEY [facility] Start: 04-01-2024 End: 04-01-2024 ambulatory BEBETO S CHAUNCEY [facility] Start: 02-22-2024 End: 02-22-2024 ambulatory BEBETO HAQ [facility] Start: 01-09-2024 End: 01-09-2024 ambulatory BEBETO HAQ [facility] Start: 12-26-2023 End: 12-27-2023 Emergency department patient visit DIVYA GONZALES [facility] Start: 09-22-2023 End: 09-22-2023 ambulatory [facility] Start: 08-02-2023 End: 08-02-2023 ambulatory [facility] Start: 06-29-2023 End: 06-29-2023 ambulatory [facility] Start: 06-29-2023 End: 06-30-2023 ambulatory [facility] Start: 11-14-2022 End: 11-15-2022 ambulatory [facility] Facility:H1 Start: 10-24-2022 End: 10-25-2022 ambulatory PETER D [facility] Facility:H1 Start: 10-03-2022 End: 10-04-2022 ambulatory MARIANA D [facility] Facility:H1 Start: 09-12-2022 End: 09-13-2022 ambulatory [facility] Facility:H1 Start: 08-23-2022 End: 08-24-2022 ambulatory MARIANA D [facility] Facility:H1 Start: 08-16-2022 End: 08-17-2022 ambulatory PETER D [facility] Facility:H1 Start: 08-09-2022 End: 08-10-2022 ambulatory PETER D [facility] Facility:H1 Procedures Date Procedure Procedure Detail Performing Clinician Start: 04-06-2023 Microalbumin [Mass/v olume] in Urine by Test strip Bebeto LEON Work Phone: Plan of Treatment Date Care Activity Detail Author Start: 04-09-2025 Adult BMI Screening Adult BMI Screen ing [facility] Start: 04-09-2025 Tobacco Screening Tobacco Screening [facility] Start: 05-23-2024 End: 05-23-2024 Patient encounter procedure 05/23/2024 12:45 PM EST Office Visit [facility] [address] [place] [address] Bebeto Haq PA [address] [facility] [address] [facility] Start: 05-03-2024 End: 05-03-2024 Admission to same day surgery center 05/03/2024 8:58 AM EDT - 05/03/2024 9:06 AM EDT Surgery [facility] [address] [place] [id number] Nay Hyde MD [address] [place] [id number] INJECTION BLOCK NERVE MEDIAL BRANCH: bilat L45 51 [23689 (CPT )] [facility] Comment on above: INJECTION BLOCK NERV E MEDIAL BRANCH: bilat L45 51 [04479 (CPT )] Start: 05-03-2024 End: 05-03-2024 Njx dx/ther agt pvrt facet jt lmbr/sac 1 level INJECTION BLOCK NERVE MEDIAL BRANCH Lumbosacral spondylosis without myelopathy 05/03/2024 8:58 AM EDT [facility] Start: 05-03-2024 Subsequent hospital visit by physician 05/03/2024 8:58 AM EDT Hospital Encounter [facility] [address] [place] [id number] Nay Hyde MD [address] [facility] [place] [id number] [facility] Start: 04-06-2024 Urine screening for protein Urine Microalbumin [facility] Start: 03-03-2024 COVID-19 Vaccine ( season) COVID-19 Vaccine () [facility] Start: 03-03-2024 Influenza vaccination Influenza Vacc ine [facility] Start: 2019 Abdominal aortic aneurysm screening Abdominal Aortic Aneurysm (AAA) Screen [facility] Start: 2019 Fall Risk Screening Fall Risk Screen ing [facility] Start: 2004 Administration of varicella zoster vaccine Zoster (Shingles) Vaccine (1 of 2) [facility] Start: 1973 DTaP,Tdap and Td Vaccines (1 - Tdap) DTaP,Tdap and Td Vaccines (1 - Tdap) [facility] Start: 1972 Adult BMI Follow Up Plan Adult BMI Follow Up Plan [facility] Start: 1972 Diabetic foot examination Diabetic Foot Exam [facility] Start: 1966 Depression Screening Depression Scre ening [facility] Start: 1954 Glaucoma screening Diabetic Op hthalmology Exam [facility] Start: 1955 Medicare Annual Well ness Visit Medicare Annual Wellness Visit [facility] Immunizations Immunization Date Immunization Notes Care Provider Fa cility 04-11-2023 influenza virus vaccine, unspecified formulation Bebeto LEON Work Phone: [facility] 04-19-2021 influenza, injectabl e, quadrivalent, preservative free Bebeto LEON Work Phone: [facility] 05-18-2018 Influenza, injectabl e, Madin [place] Canine Kidney, preservative free, quadrivalent Bebeto LEON Work Phone: [facility] 05-10-2017 influenza, seasonal, injectable, preservative free Bebeto LEON Work Phone: [facility] 03-25-2015 influenza, seasonal, injectable, preservative free Bebeto LEON Work Phone: [facility] 04-15-2014 influenza, seasonal, injectable Bebeto LEON Work Phone: [facility] Payers Date Payer Category [place]ayer [place] [id number] 2016-Present [phone] [address] [place] [address] [id number] 1992 Medicare MEDICARE MEDICAR E PART A & B [id number] 1992-Present [phone] [address] [place] [address] [id number] 1959 Medicaid [id number] 1959 Medicare [id number] 1954 Unknown [id number] 1954 Unknown [id number] 2.16.840.1.480426.3.579.2.593 1954 Unknown [id number] 2.16.840.1.952660.3.579.2.593 1954 Unknown [id number] 2.16.840.1.171466.3.579.2.593 1954 Unknown [id number] 2.16.840.1.906117.3.579.2.593 1954 Unknown [id number] 2.16.840.1.106954.3.579.2.593 1954 Unknown [id number] 2.16.840.1.230351.3.579.2.593 1954 Unknown [id number] 2.16.840.1.695381.3.579.2.1286 1954 Unknown [id number] 2.16.840.1.181678.3.579.2.1286 1954 Unknown [id number] 2.16.840.1.483939.3.579.2.1286 1954 Unknown [id number] 2.16.840.1.077375.3.579.2.1286 1954 Unknown [id number] 2.16.840.1.303736.3.579.2.1286 1954 Unknown [id number] 2.16.840.1.138855.3.579.2.1286 1954 Unknown [id number] 2.16.840.1.364892.3.579.2.1286 1954 Unknown [id number] 2.16.840.1.570169.3.579.2.1286 1954 Unknown [id number] 2.16.840.1.580089.3.579.2.1286 1954 Unknown [id number] 2.16.840.1.775310.3.579.2.1286 1954 Unknown [id number] 2.16.840.1.616681.3.579.2.1286 1954 Unknown [id number] 2.16.840.1.056199.3.579.2.1286 Social History Date Type Detail Facility Start: 01-09-2024 Tobacco smoking stat [facility] Ex-smoker [facility] History of tobacco use Current smoker [facility] History of tobacco use Cigarette Smoker [facility] Start: 01-09-2024 Tobacco use and exposure Smokeless tobacco non-user [facility] Start: 04-09-2024 Alcoholic beverage intake Current non-drinker of alcohol (finding) [facility] Start: 07-18-2020 End: 04-09-2024 History of Social function [facility] Start: 07-18-2020 End: 04-09-2024 Tobacco use panel [facility] Childcare Unknown [facility] Start: 1955 Sex assigned at Not on file [facility] Medical Equipment Procedure Code Equipment Code Equipment Origin al Text Equipment Identifier Dates Ld Pcng 55cm Rv Sq Scr S Df-4 - [id number] - [id number] Start: 11-20-2018 Lead Capsure Fix Novus 5076-45 - [id number] - [id number] Start: 11-20-2018 Lead Capsure Fix Jacquie 5076-52 - [id number] - [id number] Start: 07-21-2020 Dfbr Crd Ana Pardo ri Xt Dr - [id number] - [id number] Start: 11-20-2018 Sys Crd Rvl Linq Rpl [id number] - [id number] - [id number] Start: 11-16-2018 Start: 01-20-2018 Goals Date Patient Goal Desired Activity /State Personal health goal Comment on above: Formatting of this n ote might be different from the original. Evaluation of progress towards goal: discharge home with yazidi/friends support. Personal health goal Comment on above: Formatting of this n ote might be different from the original. Evaluation of progress towards goal: plan home self care Personal health goal Comment on above: Formatting of this n ote might be different from the original. Evaluation of progress towards goal: Patient likely will discharge to a SNF History of Present illness Narrative 04-09-2024 EDWARD Benavides - 04/09/2024 10:45 AM EDT Note Date & Type Note Facility 04-09-2024 History of Present illness Narrative [facility] [address] [place] [address] Patient: Radha Quiñones Sex: male : 1955 Age: 68 y.o. PCP: [facility] Nathaniel 04/09/2024 Radha Quiñones is here for a(n) Follow up to review Lumbar MRI done 04/01/24. Chief Complaint Patient presents with Back Pain HPI: Medication list was provided by patient's PCP today. Back Pain This is a chronic problem. The current episode started more than 1 year ago. The problem occurs intermittently. The problem is unchanged. The pain is present in the lumbar spine. The quality of the pain is described as aching (thumping). The pain radiates to the right thigh and right knee. The pain is at a severity of 5/10. The pain is moderate. The pain is Worse during the day (worst first thing in the morning). The symptoms are aggravated by lying down, twisting and sitting (posterior knee pain increases with stair navigation). Stiffness is present All day. Associated symptoms include bladder incontinence, leg pain (posterior aspect of knees), numbness (bilat feet (neuropathy)) and weakness (BLE, wheelchair). Pertinent negatives include no bowel incontinence, chest pain, fever, headaches or tingling. Risk factors include history of cancer. He has tried muscle relaxant, analgesics and heat (Tylenol ES, carisopradol (causes nausea) with mod relief) for the symptoms. The treatment provided mild relief. The effect of pain on patient's ADLS: Moderate Impairment. Past Medical History: Diagnosis Date Angina pectoris ([facility]) Arrhythmia Atrial fibrillation ([facility]) Atrial flutter ([facility]) Atrial flutter ([facility]) Benign prostatic hyperplasia BPH with urinary obstruction Cancer ([facility]) skin cancer Cataract Constipation Coronary artery disease Dental disease no teeth Diabetes mellitus ([facility]) Diabetes mellitus type 2, controlled ([facility]) Hypercholesterolemia Hypertension Myositis Peripheral neuropathy Rash Scalp wound Urinary incontinence Ventricular tachycardia ([facility]) Visual impairment glasses Past Surgical History: Procedure Laterality Date 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; excision and debridement Left 10/29/2021 Performed by Ambrosio Al MD at [facility] AMPUTATION TOE 4TH & 5TH/WIDE INCISIONAL DEBRIDEMENT LEFT DIABETIC FOOT NECROTIZING FASCITIS Left 08/12/2021 Performed by Ambrosio Al MD at [facility] CARDIAC DEFIBRILLATOR PLACEMENT medtronic CATARACT EXTRACTION Coronary angiogram and left ventricular gram/pressure N/A 11/19/2018 Performed by Sage Jay MD at [facility] Coronary fractional flow reserve N/A 11/19/2018 Performed by Sage Jay MD at [facility] CYSTOSCOPY [facility] SOLUTION N/A 10/27/2021 Performed by Frederic Thorne MD at [facility] DC ICD RA lead replace - MDT N/A 07/21/2020 Performed by Yoni Espinoza MD at [facility] (EP) EP - Device DC ICD Left 11/20/2018 Performed by Shayna Betancourt MD at [facility] (EP) EP - Diagnostic-- EP study Right 11/16/2018 Performed by Rafita Garcia MD at [facility] (EP) Loop recorder implant N/A 11/16/2018 Performed by Rafita Garcia MD at [facility] (EP) Loop recorder removal N/A 07/21/2020 Performed by Yoni Espinoza MD at [facility] (EP) SKIN CANCER EXCISION No Known Allergies Family History Problem Relation Age of Onset COPD Father Early Father Diabetes Mother Social History Socioeconomic History Marital status: Spouse name: Not on file Number of children: Not on file Years of education: Not on file Highest education level: Not on file Occupational History Not on file Tobacco Use Smoking status: Former Types: Cigarettes Smokeless tobacco: Never Vaping Use Vaping status: Never Used Substance and Sexual Activity Alcohol use: No Drug use: No Sexual activity: Defer Other Topics Concern Caffeine Use No Social History Narrative Not on file Social Determinants of Health Financial Resource Strain: Not on file Food Insecurity: No Food Insecurity (04/09/2024) Hunger Screening Food Insecurity - Worry: Never True Food Insecurity - Inability: Never True Transportation Needs: Not on file Physical Activity: Not on file Stress: Not on file Social Connections: Not on file Interpersonal Safety: Unknown (08/24/2023) Received from [facility] [place] Safety & Environment Fear of Current or Ex-Partner: Not on file Emotionally Abused: Not on file Physically Abused: Not on file Sexually Abused: Not on file Physically or Sexually Abused: Not on file Housing Instability: Not on file Review of Systems Constitutional: Negative for fever. Respiratory: Negative for cough and shortness of breath. Cardiovascular: Negative for chest pain. Gastrointestinal: Negative for bowel incontinence, constipation and diarrhea. Genitourinary: Positive for bladder incontinence. Incontinence Musculoskeletal: Positive for back pain. Skin: Positive for wound (left foot wound). Neurological: Positive for weakness (BLE, wheelchair) and numbness (bilat feet (neuropathy)). Negative for tingling and headaches. Psychiatric/Behavioral: Negative. Vital Signs: BP (!) 141/97 Pulse 63 Resp 16 Ht 175.3 cm (5' 9 ) Comment: stated Wt 84.8 kg (187 lb) SpO2 100% BMI 27.62 kg/m Physical Exam: GENERAL - Healthy patient that appears stated age. HEENT - Normocephalic / Atraumatic, Extraoccular movements intact, trachea midline, thyroid within normal limits. CV - pulse regular, Warm extremities with appropriate color of nailbeds. RESP - No obvious wheezing, No Shortness of Breath, No overexertion response to exam maneuvers. COORDINATION - remains intact. PSYCH - Alert and Oriented x4, Attentive and appropriate, constitutionally normal, displays normal mood and affect per situation, answered questions appropriately during examination, demonstrated appropriate attention during discussion, demonstrated appropriate cognitive reasoning and understanding of the medical condition by asking appropriate questions regarding the diagnosis and risks/benefits/alternatives of treatment modalities. No obvious deficits in memory, reasoning, or intellect. Lumbar: SKIN - No rashes or bruising in the area of the patient s pain. LYMPH NODES - demonstrate no obvious enlargement. EXTREMITIES - Lower extremities are warm, with minimal edema and palpable pulses. Tenderness to palpation noted in the lumbar spine and paraspinal musculature. Pain is elicited with flexion, extension, and lateral rotation of the lumbar spine. Range of motion is diminished with these motions due to pain. Facet palpation is noted to be painful and facet loading maneuvers elicit pain that is concordant with the patient s normal pain complaints. Some muscle spasm is noted in the overlying musculature. STRENGTH - noted to be 5 out of 5 all muscle groups bilateral lower extremities including muscles involving hip flexion and abduction, knee flexion and extension, as well as foot dorsiflexion and plantarflexion. No notable atrophy, fasciculations or spasm. SENSORY - No notable sensory deficits in the bilateral lower extremities to touch or pinprick in all dermatomal distributions. Straight Leg Raise is negative bilaterally. Gait is antalgic. Assessment/Treatment Plan: Radha was seen today for back pain. Diagnoses and all orders for this visit: Lumbosacral spondylosis without myelopathy - Case request operating room: INJECTION BLOCK NERVE MEDIAL BRANCH: carmine [id number] Bilateral L4/5, 5/1 Facet Injection/Medial Branch Block - under fluoroscopy It is hopeful that the described procedure will provide symptomatic pain relief. It is felt to be medically necessary noting that the patient has tried and failed more conservative modalities of therapy and this is the next most appropriate step. The procedure was described in detail to the patient as well as the potential benefits of pain reduction alongside risks of the procedure and alternatives. Risks were described as including, but not limited to bleeding, infection, nerve damage, spinal cord injury, paralysis, stroke, dural puncture headache, and medication reaction. The patient expressed understanding regarding the risks and benefits and wishes to proceed. Diagnostic facet injections and medial branch blocks should provide information to confirm that the noted facet arthropathy is the patient s most significant pain generator. If this provides significant but only temporary pain relief, the patient may in the future be a candidate for radiofrequency denervation of the facet joints to provide pain relief for approximately 1 year. Follow up 2 weeks after procedure The medications prescribed have been reviewed for medication interactions/contraindications and/or for upcoming procedures: continue current medication regimen without any changes. DISCUSSION: Treatment options discussed with patient and all questions answered to patient's satisfaction. Discussed the rules and regulations surrounding prescription of opioids and compliance at length. Failure to follow the rules and regulation will result in tapering and discontinuation of medications if applicable. Prescribed medication that requires intensive monitoring for toxicity We do not currently prescribe any controlled substance from this practice. Treatment plans discussed but not opted for at this time: Lumbar RFA. Patient would like to proceed with the current outlined treatment plan before moving forward with any other options. The spine model was demonstrated and MRI was reviewed and used to explain the condition. Chronic conditions not treated during this visit that affected my overall medical decision making: Comorbidity- Diabetes The patient has a history of diabetes mellitus currently managed with medications. This will need to be considered prior to any procedure that would require the injection of steroid in that the patient may experience a transient increase in glucose as a result. Additional consideration will need to be given to timing the procedure early in the morning in that the patient will need to be fasting prior to the administration of anesthesia. Every effort will be made to perform the procedure as a 1st case due to this condition. And the patient will be instructed to hold their diabetic medications on that morning. If necessary, a blood glucose test can also be performed that morning. The risks/ benefits/ and alternatives will be weighed and explained to the patient prior to any procedure. Comorbidity- Anticoagulation therapy The patient is currently being treated with an anticoagulant. For this reason, we will need to confer with the patients other physicians to determine if it is safe to discontinue this therapy for any planned procedure. If it is determined that discontinuation would be a significant risk, we will have to weigh the potential benefits to the procedure. It may be necessary to delay or defer the procedure altogether. However, if the patient feels the potential benefit outweighs the risk and is willing to assume the responsibility, we may elect to proceed while anticoagulated despite the increased risks of bleeding, hematoma formation, and possible paralysis. Comorbidity- Pacemaker Radiofrequency neurotomy is used in pain medicine for the treatment of painful conditions including facet joint pain. Patients with facet (z-joint) pain may have unrelated comorbidities that require implanted permanent pacemaker (PPM) or implantable cardiac defibrillator (ICD). Both of these devices rely on the detection of electrical cardiac activity, rhythm, and rate to function properly. Radiofrequency neurotomy can be safely performed in these patients; however, close collaboration with a pellet post inspector or stock broker is recommended before initiating the RFN procedure, therefore prior to RFA we will consult with patient's pellet post inspector/stock broker for approval and recommendations to proceed with the procedure. OARRS: Reviewed. Scribe Statement: Scribed for and in the presence of EDWARD BENAVIDES by Chula Bonilla CNA. Provider Statement: I, EDWARD BENAVIDES, personally performed the services described in the documentation, as scribed by Chlua Bonilla CNA in my presence, and it is both accurate and complete. Chula Bonilla CNA 04/09/24 1046 EDWARD Benavides 04/11/24 1226 documented in this encounter [employer] [facility] Instructions 04-09-2024 Patient Instructions Note Date & Type Note Facility 04-09-2024 Instructions Chula Bonilla CNA - 04/09/2024 10:45 AM EDT Facet Injection / Medial Branch Block (MBB) / Sacroiliac (SI) Joint Injection / Cluneal NB A facet injection and sacroiliac joint injection are injections of local anesthetic and steroid into a joint in the spine. A medial branch block is similar, but the medication is placed outside the joint space near the nerve that supplies the joint called the medial branch (steroid may or may not be used). You may require multiple injections depending upon how many joints are involved. How Long Will This Procedure Last? The extent and duration of pain relief may depend on the amount of inflammation and how many areas are involved. Other coexisting factors may be responsible for your pain. If your pain goes away for a short time, but then returns, you may be a candidate for radiofrequency ablation (RFA). Activity Be active. Attempt activities and movements that typically cause pain to see if it feels better while doing them. We will give you a pain diary. Please fill this out as directed by your nurse in pre-op. This will help your doctor determine the effectiveness of the injection, and how to proceed. Bring the pain diary with you to your follow-up appointment. Medications You should not take your pain medications for 4-6 hours before or after the injection in order to properly diagnose if the injection provides adequate relief. Resume your routine medications after your procedure. You may resume blood thinners per your regular schedule after the procedure. If you received sedation: If you received sedation for your procedure, you may feel sleepy or not yourself for several hours today. For the next 24 hours avoid activities that requires alertness or coordination. This includes: Driving or operating heavy machinery Using power tools Consuming alcohol Do not make important or complex decisions or sign legal documents in the next 24 hours. Other Instructions: If you feel severe pain at the injection site with swelling and redness, increased leg weakness, a fever of 101 or higher, headache (or worsening headache), changes in vision or urinary retention: Please call the office at , or have someone take you to the nearest emergency room. Tell the emergency room staff that you recently had a spine injection. A doctor must evaluate you for bleeding and injection complications. If you lose control over bowel, bladder, or legs: Go to the nearest emergency room. documented in this encounter [facility] Clinical Note 08-09-2022 Note Date & Type [...] by: EDILSON DON Date: 2022-08-09 15:44 [facility] Evaluation note Note Date & Type Note Facility Evaluation note Diagnosis Lumbosacral spondylosis without myelopathy- Primary Lumbosacral spondylosis without myelopathy- Primary Lumbosacral spondylosis without myelopathy documented in this encounter [facility] Summary Purpose Family History No Family History Records FoundNo Family History Records Found Advance Directives No Advanced Directives Records Found Date Activated Date Inactivated Comments 08/10/2021 3:58 AM 08/16/2021 6:41 PM Date Activated Date Inactivated Comments 12/16/2019 11:02 AM 12/17/2019 5:52 PM Date Activated Date Inactivated Comments 11/14/2018 8:21 PM 11/21/2018 9:34 PM Date Activated Date Inactivated Comments 11/23/2017 1:57 PM 11/23/2017 5:15 PM Reason for Referral Specialty Diagnoses / Procedures Referred By Fly chowdhury Referred To Contact Diagnoses Lumbosacral spondylosis without myelopathy Procedures Case request operating room: INJECTION BLOCK NERVE MEDIAL BRANCH: bilat L45 51 Bebeto Haq, EDWARD [address] [place] [address] Referral ID Status Reason Start Date Expiration Date V isits Requested Visits Authorized [id number] Pending Review 04/09/2024 04/09/2025 1 1 Additional Source Comments (unrecognized sect ion and content) No Status Records FoundNo Status Records Found INFORMATION SOURCE (unrecogn ized section and content) DATE CREATED AUTHOR 11/16/2022 [facility] DATE CREATED AUTHOR AUTHOR'S ORGANIZ ATION 04/18/2024 [facility] Reason for Visit (unrecogniz ed section and content) Reason Comments Back Pain Care Teams (unrecognized sec tion and content) 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 [facility] [employer] [facility]. provides no warranty or guarantee of the accuracy or completeness of information in this document.
== END 2024-05-01 13:58 | disposition home or self-care (01) ==
LOC: WC 13:57
PROVIDERS: Visit Provider Physician Assistant
DX: E11.621 Type 2 diabetes mellitus with foot ulcer (principal); L97.421 Non-pressure chronic ulcer of left heel and midfoot limited to breakdown of skin
CPT/HCPCS: A6213; G0463

== ENCOUNTER 2024-05-22 13:49 | Outpatient (OUT) | payer MEDICARE, MEDICAID, SELFPAY ==
--- OUTSIDE RECORDS SUMMARY | 2024-05-22 13:55 | XMS_ITS | CCD ---
Author Organization [facility] Care Team Providers Care Accounting Recruiter Name Role Phone MARIANA PHILLIPS Attending Unavailable CARMENANDERMARIANA Admitting Unavailable HIGHLANDER, MARIANA Liu Attending Unavailable HIGHLANDER, MARIANA Liu Admitting Unavailable HIGHLANDER, MARIANA Liu Admitting Unavailable HIGHLANDER, MARIANA Liu Attending Unavailable SHANTANUCHET Admitting Unavailable SHANTANUCHET Attending Unavailable CARMENANDERMARIANA Admitting Unavailable HIGHLANDER, MARIANA Liu Attending Unavailable HIGHLMARIANA DURAN Admitting Unavailable ZIEBER, DR EDILSON Jerez Consulting Unavailable HIGHLANDER, MARIANA Liu Attending Unavailable HIGHLANDERMARIANA Consulting Unavailable HIGHLANDERMARIANA Admitting Unavailable HIGHLANDER, MARIANA Liu Consulting Unavailable CARMENANDERMARIANA Attending Unavailable Services, [facility] Primary Care Provider ANGLIM, IZZY A Referring Unavailable ANGLIM, IZZY A Primary Care Unavailable ANGLIM, IZZY A Referring Unavailable ANGLIM, IZZY A Primary Care Unavailable ANGLIM, IZZY A Referring Unavailable ANGLIM, IZZY A Primary Care Unavailable CHEDIVYA DURBIN Attending Unavailable SERVICES, [facility] Primary Care Unava ilable CHEDIVYA DURBIN Attending Unavailable CHEHADIVYA SANDERSON Referring Unavailable SERVICES, [facility] Primary Care Unava ilable CHEHADEDIVYA Attending Unavailable CHEHADIVYA SANDERSON Referring Unavailable SERVICES, [facility] Primary Care Unava ilable BEBETO HAQ Attending Unavailable JACKIE BARRERA Referring Unavailable SERVICES, [facility] Primary Care Unava ilable BEBETO HAQ Attending Unavailable NAY HYDE Referring Unavailable SERVICES, [facility] Primary Care Unava ilable BEBETO HAQ Attending Unavailable BEBETO HAQ Referring Unavailable SERVICES, [facility] Primary Care Unava ilable BEBETO HAQ Attending Unavailable NAY HYDE Referring Unavailable SERVICES, [facility] Primary Care Unava ilable SERVICES, [facility] DIVYA GONZALES Attending Unavailable NAY HYDE Admitting Unavailable NAY HYDE Attending Unavailable NAY HYDE Referring Unavailable NAY HYDE Attending Unavailable NAY HYDE Referring Unavailable SERVICES, [facility] IZZY SAM Referring Unavailable SERVICES, [facility] IZZY SAM Referring Unavailable IZZY SAM Primary Care Unavailable Medications Current Medications Medication Drug Class(es) [...] under the skin nightly. Active lactobacillus acidophilus [id number] unt / pectin 10 mg oral capsule [...] Coronary atherosclerosis; 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: [Atherosclerotic heart disease of [place] coronary artery without angina pectoris] Onset: 12-04-2018 12-04-2018 Chronic Diabetes mellitus with complications (18 sources) Type 2 diabetes mellitus with other skin ulcer; 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: [Type 2 diabetes mellitus with diabetic nephropathy] Onset: 04-18-2018 Chronic Disorders of lipid metabolism (2 sources) Pure hypercholesterolemia ; 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: [Pure hypercholesterolemia , [...] 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: [Hypomagnesemia] Onset: 11-17-2021 11-17-2021 Chronic Other screening for suspected conditions (not mental disorders or infectious disease) (2 sources) Other specified abnormal findings of blood chemistry; 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: [Encounter for screening for malignant neoplasm of prostate] Onset: 09-22-2023 Episodic Other upper respiratory disease (1 source) Epistaxis; [...] angle, unspecified eye] Onset: 11-17-2021 11-17-2021 Episodic Results Test Name Value Interpretation Reference Range Facil ity COMPREHENSIVE METABOLIC PANE Alex 05-09-2024 Albumin [Mass/Vol] 4.2 g/dL Normal 3.2-5.3 [facility] Comment on above: Performed By: #### C BCA, CMP #### [facility] ([id number]) [address] [place] [address], [place] [address] #### 2857-1, 71529-6, 73321-7, FEPR, 2276-4 #### [facility] ([id number]) [address], [address] [place] [address] ALP [Catalytic activity/Vol] 46 U/L Normal 39-130 [facility] Comment on above: Performed By: #### C BCA, CMP #### [facility] ([id number]) [address] [place] [address] #### 2857-1, 37149-8, 85340-8, FEPR, 2276-4 #### [facility] ([id number]) [address] [facility], [address] [place] [address] ALT [Catalytic activity/Vol] 16 U/L Normal 0-40 [facility] Comment on above: Performed By: #### C BCA, CMP #### [facility] ([id number]) [address] [place] [address] #### 2857-1, 30010-4, 93128-2, FEPR, 2276-4 #### [facility] ([id number]) [address] [facility], [address] [place] [address] Anion gap [Moles/Vol] 10 mmol/L Normal 5-15 [facility] Comment on above: Performed By: #### C BCA, CMP #### [facility] ([id number]) [address] [place] [address] #### 2857-1, 94963-5, 23001-2, FEPR, 2276-4 #### [facility] ([id number]) [address], [address] [place] [address] AST [Catalytic activity/Vol] 16 U/L Normal 0-41 [facility] Comment on above: Performed By: #### C BCA, CMP #### [facility] ([id number]) [address] [place] [address] #### 2857-1, 31662-0, 36501-1, FEPR, 2276-4 #### [facility] ([id number]) [address], [address] [place] [address] Bilirubin [Mass/Vol] 0.5 mg/dL Normal 0.3-1.2 [facility] Comment on above: Performed By: #### C BCA, CMP #### [facility] ([id number]) [address] [place] [address] #### 2857-1, 58941-6, 59926-4, FEPR, 2276-4 #### [facility] ([id number]) [address], [address] [place] [address] Calcium [Mass/Vol] 9.3 mg/dL Normal 8.5-10.5 [facility] Comment on above: Performed By: #### C BCA, CMP #### [facility] ([id number]) [address] [place] [address] #### 2857-1, 60945-4, 02872-5, FEPR, 2276-4 #### [facility] ([id number]) [address], [address] [place] [address] Chloride [Moles/Vol] 99 mmol/L Normal 98-109 [facility] Comment on above: Performed By: #### C BCA, CMP #### [facility] ([id number]) [address] [place] [address] #### 2857-1, 86960-4, 96564-8, FEPR, 2276-4 #### [facility] ([id number]) [address], [address] [place] [address] CO2 [Moles/Vol] 26 mmol/L Normal 22-32 [facility] Comment on above: Performed By: #### C BCA, CMP #### [facility] ([id number]) [address] [place] [address] #### 2857-1, 50418-3, 93622-1, FEPR, 2276-4 #### [facility] ([id number]) [address], [address] [place] [address] Creatinine [Mass/Vol] 1.27 mg/dL High 0.70-1.20 [facility] Comment on above: Result Comment: METH OD TRACEABLE TO IDMS STANDARD Performed By: #### C BCA, CMP #### [facility] ([id number]) [address] [place] [address] #### 2857-1, 58405-1, 17938-6, FEPR, 2276-4 #### [facility] ([id number]) [address], [address] [place] [address] GFR/1.73 sq M.predicted among non-blacks MDRD (S/P/Bld) [Vol rate/Area] 61 mL/min/{1.73_m2} Normal >59 [facility] Comment on above: Result Comment: Reported eGFR is based on the CKD-EPI 2020 equation that does not use a race coefficient. Performed By: #### C BCA, CMP #### [facility] ([id number]) [address] [place] [address] #### 2857-1, 43566-6, 01668-5, FEPR, 2276-4 #### [facility] ([id number]) [address], [address] [place] [address] Glucose [Mass/Vol] 177 mg/dL High 65-99 [facility] Comment on above: Performed By: #### C BCA, CMP #### [facility] ([id number]) [address] [place] [address] #### 2857-1, 29471-1, 04700-5, FEPR, 2276-4 #### [facility] ([id number]) [address], [address] [place] [address] Potassium [Moles/Vol] 4.5 mmol/L Normal 3.5-5.0 [facility] Comment on above: Performed By: #### C BCA, CMP #### [facility] ([id number]) [address] [place] [address] #### 2857-1, 54246-7, 04190-4, FEPR, 2276-4 #### [facility] ([id number]) [address] [facility], [address] [place] [address] Protein [Mass/Vol] 7.6 g/dL Normal 6.0-8.0 [facility] Comment on above: Performed By: #### C BCA, CMP #### [facility] ([id number]) [address] [place] [address] #### 2857-1, 48114-4, 17005-4, FEPR, 2276-4 #### [facility] ([id number]) [address] [facility], [address] [place] [address] Sodium [Moles/Vol] 135 mmol/L Normal 134-146 [facility] Comment on above: Performed By: #### C BCA, CMP #### [facility] ([id number]) [address] [place] [address] #### 2857-1, 81327-3, 00476-1, FEPR, 2276-4 #### [facility] ([id number]) [address], [address] [place] [address] Urea nitrogen [Mass/Vol] 24 mg/dL Normal 5-27 [facility] Comment on above: Performed By: #### C BCA, CMP #### [facility] ([id number]) [address] [place] [address] #### 2857-1, 86489-3, 25603-3, FEPR, 2276-4 #### [facility] ([id number]) [address] [facility], [address] [place] [address] Lipid 1996 panelon 4 Cholesterol [Mass/Vol] 137 mg/dL Low 150-200 [facility] Comment on above: Performed By: #### C GARDENIA, CMP #### [facility] ([id number]) [address] [place] [address] #### 2857-1, 23838-3, 70084-1, FEPR, 2276-4 #### [facility] ([id number]) [address] [facility], [address] [place] [address] Cholesterol in HDL [Mass/Vol] 32 mg/dL Low >39 [facility] Comment on above: Result Comment: HDL <40 mg/dL - High Risk HDL > or = 40mg/dL- Desirable HDL >60 mg/dL - Negative Risk Performed By: #### C BCA, CMP #### [facility] ([id number]) [address] [place] [address] #### 2857-1, 66227-0, 43798-0, FEPR, 2276-4 #### [facility] ([id number]) [address] [facility], [address] [place] [address] Cholesterol in LDL [Mass/Vol] 50 mg/dL Normal <130 [facility] Comment on above: Result Comment: LDL <100 mg/dL - Desirable LDL >160 mg/dL - High Risk Performed By: #### C BCA, CMP #### [facility] ([id number]) [address] [place] [address] #### 2857-1, 25090-9, 32446-3, FEPR, 2276-4 #### [facility] ([id number]) [address] [place] [address] Cholesterol in VLDL [Mass/Vol] 55 mg/dL High 0-30 [facility] Comment on above: Performed By: #### C BCA, CMP #### [facility] ([id number]) [address] [place] [address] #### 2857-1, 57113-7, 88016-0, FEPR, 2276-4 #### [facility] ([id number]) [address], [address] [place] [address] CHOLESTEROL:HDL 4.3 Normal 1.0-5.0 [facility] Comment on above: Performed By: #### C BCA, CMP #### [facility] ([id number]) [address] [place] [address] #### 2857-1, 92224-6, 38823-4, FEPR, 2276-4 #### [facility] ([id number]) [address] [place] [address] Triglyceride [Mass/Vol] 275 mg/dL High 27-150 [facility] Comment on above: Performed By: #### C BCA, CMP #### [facility] ([id number]) [address] [place] [address] #### 2857-1, 61679-8, 81967-7, FEPR, 2276-4 #### [facility] ([id number]) [address] [place] [address] TSH WITH REFLEXon 05-09-2024 TSH 4.67 uIU/mL Normal 0.49-4.67 [facility] Comment on above: Performed By: #### C BCA, CMP #### [facility] ([id number]) [address] [place] [address] #### 2857-1, 95735-0, 55403-2, FEPR, 2276-4 #### [facility] ([id number]) [address] [place] [address] BASIC METABOLIC PANLon 04-16 Anion gap [Moles/Vol] 10 mmol/L Normal 5-15 [facility] Comment on above: Performed By: #### C BCA, CMP #### [facility] ([id number]) [address] [place] [address] #### 2857-1, 07781-3, 21332-2, FEPR, 2276-4 #### [facility] ([id number]) [address] [place] [address] Calcium [Mass/Vol] 9.3 mg/dL Normal 8.5-10.5 [facility] Comment on above: Performed By: #### C BCA, CMP #### [facility] ([id number]) [address] [place] [address] #### 2857-1, 01598-1, 63217-2, FEPR, 2276-4 #### [facility] ([id number]) [address] [place] [address] Chloride [Moles/Vol] 101 mmol/L Normal 98-109 [facility] Comment on above: Performed By: #### C BCA, CMP #### [facility] ([id number]) [address] [place] [address] #### 2857-1, 30833-0, 57741-8, FEPR, 2276-4 #### [facility] ([id number]) [address], [address] [place] [address] CO2 [Moles/Vol] 27 mmol/L Normal 22-32 [facility] Comment on above: Performed By: #### C BCA, CMP #### [facility] ([id number]) [address] [place] [address] #### 2857-1, 58141-5, 86083-1, FEPR, 2276-4 #### [facility] ([id number]) [address] [place] [address] Creatinine [Mass/Vol] 1.19 mg/dL Normal 0.70-1.20 [facility] Comment on above: Result Comment: METH OD TRACEABLE TO IDMS STANDARD Performed By: #### C BCA, CMP #### [facility] ([id number]) [address] [place] [address] #### 2857-1, 14540-3, 99214-0, FEPR, 2276-4 #### [facility] ([id number]) [address] [address] [place] [address] GFR/1.73 sq M.predicted among non-blacks MDRD (S/P/Bld) [Vol rate/Area] 66 mL/min/{1.73_m2} Normal >59 [facility] Comment on above: Result Comment: Reported eGFR is based on the CKD-EPI 2020 equation that does not use a race coefficient. Performed By: #### C BCA, CMP #### [facility] ([id number]) [address] [place] [address] #### 2857-1, 26084-4, 08228-4, FEPR, 2276-4 #### [facility] ([id number]) [address], [address] [place] [address] Glucose [Mass/Vol] 165 mg/dL High 65-99 [facility] Comment on above: Performed By: #### C BCA, CMP #### [facility] ([id number]) [address] [place] [address] #### 2857-1, 58337-4, 31262-4, FEPR, 2276-4 #### [facility] ([id number]) [address] [facility], [address] [place] [address] Potassium [Moles/Vol] 4.2 mmol/L Normal 3.5-5.0 [facility] Comment on above: Performed By: #### C BCA, CMP #### [facility] ([id number]) [address] [place] [address] #### 2857-1, 44164-0, 89709-6, FEPR, 2276-4 #### [facility] ([id number]) [address] [facility], [address] [place] [address] Sodium [Moles/Vol] 138 mmol/L Normal 134-146 [facility] Comment on above: Performed By: #### C BCA, CMP #### [facility] ([id number]) [address] [place] [address] #### 2857-1, 79826-8, 21151-1, FEPR, 2276-4 #### [facility] ([id number]) [address] [facility], [address] [place] [address] Urea nitrogen [Mass/Vol] 17 mg/dL Normal 5-27 [facility] Comment on above: Performed By: #### C BCA, CMP #### [facility] ([id number]) [address] [place] [address] #### 2857-1, 99226-4, 00901-5, FEPR, 2276-4 #### [facility] ([id number]) [address] [place] [address] CBC AND AUTO DIFFon 10-15-20 24 ABSOLUTE BASOPHIL 0.0 X10E9/L Normal 0.0-0.2 [facility] Comment on above: Performed By: #### C BCA, CMP #### [facility] ([id number]) [address] [place] [address] #### 2857-1, 80936-6, 33639-7, FEPR, 2276-4 #### [facility] ([id number]) [address] [facility], [address] [place] [address] ABSOLUTE NEUTROPHIL 4.0 X10E9/L Normal 1.5-6.6 [facility] Comment on above: Performed By: #### C BCA, CMP #### [facility] ([id number]) [address] [place] [address] #### 2857-1, 31429-5, 41709-1, FEPR, 2276-4 #### [facility] ([id number]) [address] [facility], [address] [place] [address] Basophils/100 WBC (Bld) 0.5 % Normal [facility] Comment on above: Performed By: #### C BCA, CMP #### [facility] ([id number]) [address] [place] [address] #### 2857-1, 45637-0, 72487-1, FEPR, 2276-4 #### [facility] ([id number]) [address] [place] [address] Eosinophils (Bld) [#/Vol] 0.0 10*3/uL Normal 0.0-0.4 [facility] Comment on above: Performed By: #### C BCA, CMP #### [facility] ([id number]) [address] [place] [address] #### 2857-1, 23617-6, 38132-8, FEPR, 2276-4 #### [facility] ([id number]) [address], [address] [place] [address] Eosinophils/100 WBC (Bld) 0.4 % Normal [facility] Comment on above: Performed By: #### C BCA, CMP #### [facility] ([id number]) [address] [place] [address]6536 #### 2857-1, 54257-3, 93181-3, FEPR, 2276-4 #### [facility] ([id number]) [address] [place] [address] Erythrocyte distribution width (RBC) [Ratio] 15.7 % High 11.5-15.0 [facility] Comment on above: Performed By: #### C BCA, CMP #### [facility] ([id number]) [address] [place] [address]36 #### 2857-1, 99599-7, 33036-3, FEPR, 2276-4 #### [facility] ([id number]) [address] [place] [address] Hematocrit (Bld) [Volume fraction] 39.9 % Normal 39-49 [facility] Comment on above: Performed By: #### C BCA, CMP #### [facility] ([id number]) [address] [place] [address]357 #### 2857-1, 47485-0, 93924-3, FEPR, 2276-4 #### [facility] ([id number]) [address] [place] [address] Hemoglobin (Bld) [Mass/Vol] 13.1 g/dL Normal 13.0-17.0 [facility] Comment on above: Performed By: #### C BCA, CMP #### [facility] ([id number]) [address] [place] [address]1492 #### 2857-1, 42974-4, 61249-3, FEPR, 2276-4 #### [facility] ([id number]) [address] [place] [address] Lymphocytes (Bld) [#/Vol] 1.1 10*3/uL Normal 1.0-3.5 [facility] Comment on above: Performed By: #### C BCA, CMP #### [facility] ([id number]) [address] [place] [address] 988[address] #### 2857-1, 66464-6, 45131-1, FEPR, 2276-4 #### [facility] ([id number]) [address] [place] [address] Lymphocytes/100 WBC (Bld) 18.2 % Normal [facility] Comment on above: Performed By: #### C BCA, CMP #### [facility] ([id number]) [address] [place] [address]66 #### 2857-1, 99726-4, 99692-1, FEPR, 2276-4 #### [facility] ([id number]) [address] [place] [address] MCH (RBC) [Entitic mass] 30.6 pg Normal 27-34 [facility] Comment on above: Performed By: #### C BCA, CMP #### [facility] ([id number]) [address] [place] [address] #### 2857-1, 32026-9, 05408-4, FEPR, 2276-4 #### [facility] ([id number]) [address] [place] [address] MCHC (RBC) [Mass/Vol] 32.8 g/dL Normal 32-36 [facility] Comment on above: Performed By: #### C GARDENIA, CMP #### [facility] ([id number]) [address] [place] [address] 92869 #### 2857-1, 75043-1, 14738-3, FEPR, 2276-4 #### [facility] ([id number]) [address] [place] [address] MCV (RBC) [Entitic vol] 93 fL Normal 80-100 [facility] Comment on above: Performed By: #### C GARDENIA, CMP #### [facility] ([id number]) [address] [place] [address]257 #### 2857-1, 73600-8, 30062-7, FEPR, 6-4 #### [facility] ([id number]) [address] [facility], [address] [place] [address] Monocytes (Bld) [#/Vol] 0.8 10*3/uL Normal 0-0.9 [facility] Comment on above: Performed By: #### C GARDENIA, CMP #### [facility] ([id number]) [address] [place] [address]1600 #### 2857-1, 34279-1, 60687-1, FEPR, 2276-4 #### [facility] ([id number]) [address] [facility], [address] [place] [address] Monocytes/100 WBC (Bld) 13.5 % Normal [facility] Comment on above: Performed By: #### C BCA, CMP #### [facility] ([id number]) [address] [place] [address]25 #### 2857-1, 07239-8, 75393-1, FEPR, 2276-4 #### [facility] ([id number]) [address] [place] [address] Neutrophils/100 WBC (Bld) 67.4 % Normal [facility] Comment on above: Performed By: #### C BCA, CMP #### [facility] ([id number]) [address] [place] [address] 38411 #### 2857-1, 86664-1, 82093-8, FEPR, 2276-4 #### [facility] ([id number]) [address] [facility], [address] [place] [address] Platelet mean volume (Bld) [Entitic vol] 7.4 fL Normal 7-12 [facility] Comment on above: Performed By: #### C GARDENIA, CMP #### [facility] ([id number]) [address] [place] [address] 80753 #### 2857-1, 34242-8, 12960-4, FEPR, 2276-4 #### [facility] ([id number]) [address] [facility], [address] [place] [address] Platelets (Bld) [#/Vol] 284 10*3/uL Normal 150-450 [facility] Comment on above: Performed By: #### C BCA, CMP #### [facility] ([id number]) [address] [place] [address] #### 2857-1, 98356-2, 20401-8, FEPR, 2276-4 #### [facility] ([id number]) [address], [address] [place] [address] RBC COUNT 4.27 X10E12/L Normal 4.10-5.70 [facility] Comment on above: Performed By: #### C BCA, CMP #### [facility] ([id number]) [address] [place] [address] #### 2857-1, 59972-3, 37205-1, FEPR, 2276-4 #### [facility] ([id number]) [address], [address] [place] [address] WBC (Bld) [#/Vol] 5.9 10*3/uL Normal 4.0-11.0 [facility] Comment on above: Performed By: #### C BCA, CMP #### [facility] ([id number]) [address] [place] [address], [place] [address] #### 2857-1, 63551-7, 27951-6, FEPR, 2276-4 #### [facility] ([id number]) [address], [address] [place] [address] CT BRAIN WO CONTon CT BRAIN WO [...] Avila DO on 04/16/2024 2:[address] [facility] CT CERVICAL SPINE WO CONTon 04-16-2024 CT [...] Avila DO on 04/16/2024 2:[address] [facility] CT FACIAL BONES WO CONTon CT FACIAL [...] Morris Lau on 04/16/2024 2:[address] [facility] PROTIME AND INRon 04-16-2024 INR Coag (PPP) [Relative time] 2.1 {INR} High 0.8-1.1 [facility] Comment on above: Performed By: #### C BCA, CMP #### [facility] ([id number]) [address] [place] [address], [place] [address] #### 2857-1, 71293-7, 65731-9, FEPR, 2276-4 #### [facility] ([id number]) [address] [facility], [address] [place] [address] PT Coag (PPP) [Time] 23.7 s High 9.8-13.2 [facility] Comment on above: Result Comment: NEW REFERENCE RANGE Performed By: #### C BCA, CMP #### [facility] ([id number]) [address] [place] [address] #### 2857-1, 26806-3, 10986-2, FEPR, 2276-4 #### [facility] ([id number]) [address], [address] [place] [address] aPTT Coag (PPP) [Time]on aPTT Coag (Bld) [Time] 48 s High 26-37 [facility] Comment on above: Result Comment: NEW REFERENCE RANGE Performed By: #### C BCA, CMP #### [facility] ([id number]) [address] [place] [address] #### 2857-1, 46137-0, 48730-6, FEPR, 2276-4 #### [facility] ([id number]) [address], [address] [place] [address] MR LUMBAR SPINE WO CONTon MR LUMBAR [...] Stephens MD on 04/01/2024 10:[address] [facility] XR HIP LT 2-3 VIEWS W OR [...] Jaramillo MD on 12/26/2023 10:[address] [facility] XR SPINE LUMBAR 2 OR [...] Jaramillo MD on 12/26/2023 10:[address] [facility] CBC AND AUTO DIFFon 09-22-19 24 ABSOLUTE BASOPHIL 0.0 X10E9/L Normal 0.0-0.2 [facility] Comment on above: Performed By: #### C BCA, CMP, THYR #### [facility] ([id number]) [address] [place] [address] 93116 #### 2857-1, 81478-1, 12749-3 #### [facility] ([id number]) [address], [address] [place] [address] ABSOLUTE NEUTROPHIL 4.3 X10E9/L Normal 1.5-6.6 [facility] Comment on above: Performed By: #### C BCA, CMP, THYR #### [facility] ([id number]) [address] [place] [address] 59454 #### 2857-1, 34639-5, 83657-4 #### [facility] ([id number]) [address] [facility], [address] [place] [address] Basophils/100 WBC (Bld) 0.5 % Normal [facility] Comment on above: Performed By: #### C BCA, CMP, THYR #### [facility] ([id number]) [address] [place] [address] 16402 #### 2857-1, 43208-6, 87899-9 #### [facility] ([id number]) [address], [address] [place] [address] Eosinophils (Bld) [#/Vol] 0.0 10*3/uL Normal 0.0-0.4 [facility] Comment on above: Performed By: #### C BCA, CMP, THYR #### [facility] ([id number]) [address] [place] [address] 44664 #### 2857-1, 58476-7, 85001-9 #### [facility] ([id number]) [address] [facility] [address] [place] [address] Eosinophils/100 WBC (Bld) 0.7 % Normal [facility] Comment on above: Performed By: #### C BCA, CMP, THYR #### [facility] ([id number]) [address] [place] [address] 55577 #### 2857-1, 13606-3, 44469-0 #### [facility] ([id number]) [address] [facility], [address] [place] [address] Erythrocyte distribution width (RBC) [Ratio] 15.8 % High 11.5-15.0 [facility] Comment on above: Performed By: #### C BCA, CMP, THYR #### [facility] ([id number]) [address] [place] [address] 93481 #### 2857-1, 56329-6, 94385-3 #### [facility] ([id number]) [address], [address] [place] [address] Hematocrit (Bld) [Volume fraction] 39.8 % Normal 39-49 [facility] Comment on above: Performed By: #### C BCA, CMP, THYR #### [facility] ([id number]) [address] [place] [address] 64900 #### 2857-1, 91555-1, 03871-9 #### [facility] ([id number]) [address], [address] [place] [address] Hemoglobin (Bld) [Mass/Vol] 13.2 g/dL Normal 13.0-17.0 [facility] Comment on above: Performed By: #### C BCA, CMP, THYR #### [facility] ([id number]) [address] [place] [address] 70879 #### 2857-1, 89772-2, 94672-0 #### [facility] ([id number]) [address], [address] [place] [address] Lymphocytes (Bld) [#/Vol] 1.1 10*3/uL Normal 1.0-3.5 [facility] Comment on above: Performed By: #### C BCA, CMP, THYR #### [facility] ([id number]) [address] [place] [address] 31134 #### 2857-1, 37565-0, 91839-4 #### [facility] ([id number]) [address], [address] [place] [address] Lymphocytes/100 WBC (Bld) 17.7 % Normal [facility] Comment on above: Performed By: #### C BCA, CMP, THYR #### [facility] ([id number]) [address] [place] [address] 22469 #### 2857-1, 44788-3, 91823-6 #### [facility] ([id number]) [address], [address] [place] [address] MCH (RBC) [Entitic mass] 29.8 pg Normal 27-34 [facility] Comment on above: Performed By: #### C BCA, CMP, THYR #### [facility] ([id number]) [address] [place] [address] 40438 #### 2857-1, 58744-7, 09924-9 #### [facility] ([id number]) [address], [address] [place] [address] MCHC (RBC) [Mass/Vol] 33.1 g/dL Normal 32-36 [facility] Comment on above: Performed By: #### C BCA, CMP, THYR #### [facility] ([id number]) [address] [place] [address] 42407 #### 2857-1, 33609-0, 00890-9 #### [facility] ([id number]) [address], [address] [place] [address] MCV (RBC) [Entitic vol] 90 fL Normal 80-100 [facility] Comment on above: Performed By: #### C BCA, CMP, THYR #### [facility] ([id number]) [address] [place] [address] 45780 #### 2857-1, 27310-2, 92068-4 #### [facility] ([id number]) [address], [address] [place] [address] Monocytes (Bld) [#/Vol] 0.8 10*3/uL Normal 0-0.9 [facility] Comment on above: Performed By: #### C BCA, CMP, THYR #### [facility] ([id number]) [address] [place] [address] 04563 #### 2857-1, 81222-4, 69826-2 #### [facility] ([id number]) [address] [facility], [address] [place] [address] Monocytes/100 WBC (Bld) 12.8 % Normal [facility] Comment on above: Performed By: #### C BCA, CMP, THYR #### [facility] ([id number]) [address] [place] [address] 37524 #### 2857-1, 22212-1, 39069-1 #### [facility] ([id number]) [address] [place] [address], [address] [place] [address] Neutrophils/100 WBC (Bld) 68.3 % Normal [facility] Comment on above: Performed By: #### C BCA, CMP, THYR #### [facility] ([id number]) [address] [place] [address] 09931 #### 2857-1, 05193-6, 14693-3 #### [facility] ([id number]) [address] [place] [address], [address] [place] [address] Platelet mean volume (Bld) [Entitic vol] 7.8 fL Normal 7-12 [facility] Comment on above: Performed By: #### C BCA, CMP, THYR #### [facility] ([id number]) [address] [place] [address] 39014 #### 2857-1, 62120-1, 69777-8 #### [facility] ([id number]) [address] [place] [address], [address] [place] [address] Platelets (Bld) [#/Vol] 259 10*3/uL Normal 150-450 [facility] Comment on above: Performed By: #### C BCA, CMP, THYR #### [facility] ([id number]) [address] [place] [address] 82330 #### 2857-1, 58933-1, 02240-7 #### [facility] ([id number]) [address], [address] [place] [address] RBC COUNT 4.42 X10E12/L Normal 4.10-5.70 [facility] Comment on above: Performed By: #### C BCA, CMP, THYR #### [facility] ([id number]) [address] [place] [address] 18764 #### 2857-1, 07802-3, 65835-3 #### [facility] ([id number]) [address] [facility], [address] [address] WBC (Bld) [#/Vol] 6.2 10*3/uL Normal 4.0-11.0 [facility] Comment on above: Performed By: #### C BCA, CMP, THYR #### [facility] ([id number]) [address] [place] [address] 91765 #### 2857-1, 85693-2, 05452-4 #### [facility] ([id number]) [address], [address] [place] [address] COMPREHENSIVE METABOLIC PANE Alex 09-22-2023 Albumin [Mass/Vol] 4.2 g/dL Normal 3.2-5.3 [facility] Comment on above: Performed By: #### C BCA, CMP #### [facility] ([id number]) [address] [place] [address] 77225 #### 2857-1, 42775-4, 82222-2, FEPR, 2276-4 #### [facility] ([id number]) [address], [address] [place] [address] ALP [Catalytic activity/Vol] 41 U/L Normal 39-130 [facility] Comment on above: Performed By: #### C BCA, CMP #### [facility] ([id number]) [address] [place] [address] 03632 #### 2857-1, 80115-8, 06974-3, FEPR, 2276-4 #### [facility] ([id number]) [address], [address] [place] [address] ALT [Catalytic activity/Vol] 17 U/L Normal 0-40 [facility] Comment on above: Performed By: #### C BCA, CMP #### [facility] ([id number]) [address] [place] [address] 93799 #### 2857-1, 26173-8, 16081-1, FEPR, 2276-4 #### [facility] ([id number]) [address], [address] [place] [address] Anion gap [Moles/Vol] 6 mmol/L Normal 5-15 [facility] Comment on above: Performed By: #### C BCA, CMP #### [facility] ([id number]) [address] [place] [address] 16166 #### 2857-1, 67369-1, 46587-2, FEPR, 2276-4 #### [facility] ([id number]) [address], [address] [place] [address] AST [Catalytic activity/Vol] 20 U/L Normal 0-41 [facility] Comment on above: Performed By: #### C BCA, CMP #### [facility] ([id number]) [address] [place] [address] 51448 #### 2857-1, 69095-1, 41181-4, FEPR, 2276-4 #### [facility] ([id number]) [address], [address] [place] [address] Bilirubin [Mass/Vol] 0.4 mg/dL Normal 0.3-1.2 [facility] Comment on above: Performed By: #### C BCA, CMP #### [facility] ([id number]) [address] [place] [address] 55161 #### 2857-1, 41162-8, 93486-1, FEPR, 2276-4 #### [facility] ([id number]) [address] [facility], [address] [place] [address] Calcium [Mass/Vol] 9.3 mg/dL Normal 8.5-10.5 [facility] Comment on above: Performed By: #### C BCA, CMP #### [facility] ([id number]) [address] [place] [address] 00645 #### 2857-1, 04145-9, 81402-1, FEPR, 2276-4 #### [facility] ([id number]) [address] [facility], [address] [place] [address] Chloride [Moles/Vol] 103 mmol/L Normal 98-109 [facility] Comment on above: Performed By: #### C BCA, CMP #### [facility] ([id number]) [address] [place] [address] 78820 #### 2857-1, 06490-8, 70207-4, FEPR, 2276-4 #### [facility] ([id number]) [address] [facility], [address] [place] [address] CO2 [Moles/Vol] 27 mmol/L Normal 22-32 [facility] Comment on above: Performed By: #### C BCA, CMP #### [facility] ([id number]) [address] [place] [address] 60822 #### 2857-1, 53699-8, 40445-8, FEPR, 2276-4 #### [facility] ([id number]) [address], [address] [place] [address] Creatinine [Mass/Vol] 1.12 mg/dL Normal 0.70-1.20 [facility] Comment on above: Result Comment: METH OD TRACEABLE TO IDMS STANDARD Performed By: #### C BCA, CMP #### [facility] ([id number]) [address] [place] [address] 08556 #### 2857-1, 13807-6, 25265-8, FEPR, 6-4 #### [facility] ([id number]) [address], [address] [place] [address] GFR/1.73 sq M.predicted among non-blacks MDRD (S/P/Bld) [Vol rate/Area] 71 mL/min/{1.73_m2} Normal >59 [facility] Comment on above: Result Comment: Reported eGFR is based on the CKD-EPI 2020 equation that does not use a race coefficient. Performed By: #### C BCA, CMP #### [facility] ([id number]) [address] [place] [address] 60408 #### 2857-1, 59843-0, 82027-4, FEPR, 6-4 #### [facility] ([id number]) [address], [address] [place] [address] Glucose [Mass/Vol] 178 mg/dL High 65-99 [facility] Comment on above: Performed By: #### C BCA, CMP #### [facility] ([id number]) [address] [place] [address] 12715 #### 2857-1, 94151-9, 75012-7, FEPR, 2276-4 #### [facility] ([id number]) [address], [address] [place] [address] Potassium [Moles/Vol] 4.6 mmol/L Normal 3.5-5.0 [facility] Comment on above: Performed By: #### C BCA, CMP #### [facility] ([id number]) [address] [place] [address] 16553 #### 2857-1, 18737-5, 79817-6, FEPR, 2276-4 #### [facility] ([id number]) [address], [address] [place] [address] Protein [Mass/Vol] 7.8 g/dL Normal 6.0-8.0 [facility] Comment on above: Performed By: #### C BCA, CMP #### [facility] ([id number]) [address] [place] [address] 06411 #### 2857-1, 75891-2, 81074-7, FEPR, 2276-4 #### [facility] ([id number]) [address], [address] [place] [address] Sodium [Moles/Vol] 136 mmol/L Normal 134-146 [facility] Comment on above: Performed By: #### C BCA, CMP #### [facility] ([id number]) [address] [place] [address] 15284 #### 2857-1, 13417-9, 50281-0, FEPR, 2276-4 #### [facility] ([id number]) [address], [address] [place] [address] Urea nitrogen [Mass/Vol] 18 mg/dL Normal 5-27 [facility] Comment on above: Performed By: #### C BCA, CMP #### [facility] ([id number]) [address] [place] [address] 86780 #### 2857-1, 17273-9, 64927-7, FEPR, 2276-4 #### [facility] ([id number]) [address], [address] [place] [address] HCV Ab IA Qlon 09-22-2023 ANTI HCV W/PCR REFLX Non-Reactive Normal NRCT [facility] Comment on above: Result Comment: If recent infection suspected, recommend repeat testing (>2 months). Hxsslr-fr-tkonza ratio is <0.80. Performed By: #### C BCA, CMP #### [facility] ([id number]) [address] [place] [address] 32570 #### 2857-1, 15134-2, 47186-2, FEPR, 2276-4 #### [facility] ([id number]) [address] [facility], [address] [place] [address] HGB A1C (GLYCO-HGB)on 2023 Glucose [Mass/Vol] 180 mg/dL Normal [facility] Comment on above: Performed By: #### C BCA, CMP #### [facility] ([id number]) [address] [place] [address] 30850 #### 2857-1, 56895-5, 59783-6, FEPR, 2276-4 #### [facility] ([id number]) [address] [facility], [address] [place] [address] HbA1c (Bld) [Mass fraction] 7.9 % High 4.4-5.6 [facility] Comment on above: Result Comment: NOTE ADA Guidelines Result HgbA1c Normal : less than 5.7 % Prediabetes : 5.7 % to 6.4 % Diabetes : > 6.4 % Use with caution in patients with abnormal hemoglobin variants as the half-life of red blood cells and in vivo glycation rates are affected. Performed By: #### C BCA, CMP #### [facility] ([id number]) [address] [place] [address] 59776 #### 2857-1, 69298-4, 03579-4, FEPR, 2276-4 #### [facility] ([id number]) [address], [address] [place] [address] Prostate specific Ag [Mass/V ol]on 09-22-2023 PSA SCREEN 0.89 ng/mL Normal 0.00-4.00 [facility] Comment on above: Result Comment: The method used for this test is [employer] [place] DXI chemiluminescent immunoassay. Values obtained by different assay methods cannot be used interchangeably. Performed By: #### C BCA, CMP #### [facility] ([id number]) [address] [place] [address] 51263 #### 2857-1, 49423-3, 10130-4, FEPR, 2276-4 #### [facility] ([id number]) [address], [address] [place] [address] THYROID PROFILEon 09-22-2023 Free T4 [Mass/Vol] 1.03 ng/dL Normal 0.61-1.60 [facility] Comment on above: Performed By: #### C BCA, CMP #### [facility] ([id number]) [address] [place] [address] 83971 #### 2857-1, 63543-4, 62026-4, FEPR, 2276-4 #### [facility] ([id number]) [address], [address] [place] [address] TSH 4.47 uIU/mL Normal 0.49-4.67 [facility] Comment on above: Performed By: #### C BCA, CMP #### [facility] ([id number]) [address] [place] [address] 68140 #### 2857-1, 99257-4, 15058-9, FEPR, 2276-4 #### [facility] ([id number]) [address], [address] [place] [address] Vitamin D+Metabolites [Mass/ Vol]on 09-22-2023 VITAMIN D 25 HYD TOT 23.7 ng/mL Low 30-100 [facility] Comment on above: Result Comment: Vitamin D status 25 [place] Vitamin D Deficiency <20 ng/mL Insufficiency 20-29 ng/mL Sufficiency 30-100 ng/mL Toxicity >100 ng/mL NOTE: A pediatric reference range has not been established by the continuous vulcanizing machine operator of this kit. The [employer] [place] [employer] recommends a Vitamin D level of = or >20ng/mL in infants and children. Performed By: #### C GARDENIA, CMP #### [facility] ([id number]) [address] [place] [address] 03759 #### 2857-1, 44008-4, 98583-4, FEPR, 2276-4 #### [facility] ([id number]) [address] [place] [address], [address] [place] [address] CBC AND AUTO DIFFon 08-02-19 24 ABSOLUTE BASOPHIL 0.0 X10E9/L Normal 0.0-0.2 [facility] Comment on above: Performed By: #### C GARDENIA, CMP #### [facility] ([id number]) [address] [place] [address] 00531 #### 2857-1, 66723-8, 13925-0, FEPR, 2276-4 #### [facility] ([id number]) [address] [facility], [address] [place] [address] ABSOLUTE NEUTROPHIL 4.4 X10E9/L Normal 1.5-6.6 [facility] Comment on above: Performed By: #### C BCA, CMP #### [facility] ([id number]) [address] [place] [address] 32560 #### 2857-1, 15378-7, 88154-7, FEPR, 2276-4 #### [facility] ([id number]) [address], [address] [place] [address] Basophils/100 WBC (Bld) 0.5 % Normal [facility] Comment on above: Performed By: #### C BCA, CMP #### [facility] ([id number]) [address] [place] [address] 88515 #### 2857-1, 72475-5, 13142-0, FEPR, 2276-4 #### [facility] ([id number]) [address], [address] [place] [address] Eosinophils (Bld) [#/Vol] 0.1 10*3/uL Normal 0.0-0.4 [facility] Comment on above: Performed By: #### C BCA, CMP #### [facility] ([id number]) [address] [place] [address] 26983 #### 2857-1, 09631-2, 22241-2, FEPR, 2276-4 #### [facility] ([id number]) [address] [facility], [address] [place] [address] Eosinophils/100 WBC (Bld) 0.9 % Normal [facility] Comment on above: Performed By: #### C BCA, CMP #### [facility] ([id number]) [address] [place] [address] 18529 #### 2857-1, 40769-4, 86748-9, FEPR, 2276-4 #### [facility] ([id number]) [address], [address] [place] [address] Erythrocyte distribution width (RBC) [Ratio] 15.7 % High 11.5-15.0 [facility] Comment on above: Performed By: #### C BCA, CMP #### [facility] ([id number]) [address] [place] [address] 35717 #### 2857-1, 00428-8, 40687-0, FEPR, 2276-4 #### [facility] ([id number]) [address], [address] [place] [address] Hematocrit (Bld) [Volume fraction] 38.3 % Low 39-49 [facility] Comment on above: Performed By: #### C BCA, CMP #### [facility] ([id number]) [address] [place] [address] 70452 #### 2857-1, 75305-2, 83639-1, FEPR, 2276-4 #### [facility] ([id number]) [address], [address] [place] [address] Hemoglobin (Bld) [Mass/Vol] 12.5 g/dL Low 13.0-17.0 [facility] Comment on above: Performed By: #### C BCA, CMP #### [facility] ([id number]) [address] [place] [address] 71288 #### 2857-1, 78198-7, 31950-5, FEPR, 6-4 #### [facility] ([id number]) [address], [address] [place] [address] Lymphocytes (Bld) [#/Vol] 1.2 10*3/uL Normal 1.0-3.5 [facility] Comment on above: Performed By: #### C BCA, CMP #### [facility] ([id number]) [address] [place] [address] 05580 #### 2857-1, 55253-4, 17580-4, FEPR, 2276-4 #### [facility] ([id number]) [address], [address] [place] [address] Lymphocytes/100 WBC (Bld) 18.4 % Normal [facility] Comment on above: Performed By: #### C BCA, CMP #### [facility] ([id number]) [address] [place] [address] 34539 #### 2857-1, 27247-3, 48712-3, FEPR, 2276-4 #### [facility] ([id number]) [address], [address] [place] [address] MCH (RBC) [Entitic mass] 29.1 pg Normal 27-34 [facility] Comment on above: Performed By: #### C BCA, CMP #### [facility] ([id number]) [address] [place] [address] 70995 #### 2857-1, 32408-1, 67759-1, FEPR, 2276-4 #### [facility] ([id number]) [address] [facility], [address] [place] [address] MCHC (RBC) [Mass/Vol] 32.7 g/dL Normal 32-36 [facility] Comment on above: Performed By: #### C BCA, CMP #### [facility] ([id number]) [address] [place] [address] 35461 #### 2857-1, 39573-0, 29534-1, FEPR, 2276-4 #### [facility] ([id number]) [address], [address] [place] [address] MCV (RBC) [Entitic vol] 89 fL Normal 80-100 [facility] Comment on above: Performed By: #### C BCA, CMP #### [facility] ([id number]) [address] [place] [address] 95495 #### 2857-1, 39605-7, 70986-5, FEPR, 2276-4 #### [facility] ([id number]) [address] [place] [address] Monocytes (Bld) [#/Vol] 1.0 10*3/uL High 0-0.9 [facility] Comment on above: Performed By: #### C GARDENIA, CMP #### [facility] ([id number]) [address] [place] [address] #### 2857-1, 44753-8, 71338-5, FEPR, 2276-4 #### [facility] ([id number]) [address], [address] [place] [address] Monocytes/100 WBC (Bld) 14.3 % Normal [facility] Comment on above: Performed By: #### C GARDENIA, CMP #### [facility] ([id number]) [address] [place] [address] #### 2857-1, 74771-1, 96190-9, FEPR, 6-4 #### [facility] ([id number]) [address], [address] [place] [address] Neutrophils/100 WBC (Bld) 65.9 % Normal [facility] Comment on above: Performed By: #### C GARDENIA, CMP #### [facility] ([id number]) [address] [place] [address] #### 2857-1, 13394-9, 96060-2, FEPR, 6-4 #### [facility] ([id number]) [address], [address] [place] [address] Platelet mean volume (Bld) [Entitic vol] 8.3 fL Normal 7-12 [facility] Comment on above: Performed By: #### C BCA, CMP #### [facility] ([id number]) [address] [place] [address] #### 2857-1, 06924-8, 69681-5, FEPR, 2276-4 #### [facility] ([id number]) [address], [address] [place] [address] Platelets (Bld) [#/Vol] 271 10*3/uL Normal 150-450 [facility] Comment on above: Performed By: #### C BCA, CMP #### [facility] ([id number]) [address] [place] [address] #### 2857-1, 85409-3, 33012-4, FEPR, 2276-4 #### [facility] ([id number]) [address] [facility], [address] [place] [address] RBC COUNT 4.31 X10E12/L Normal 4.10-5.70 [facility] Comment on above: Performed By: #### C BCA, CMP #### [facility] ([id number]) [address] [place] [address] #### 2857-1, 30284-2, 50584-6, FEPR, 2276-4 #### [facility] ([id number]) [address] [facility], [address] [place] [address] WBC (Bld) [#/Vol] 6.7 10*3/uL Normal 4.0-11.0 [facility] Comment on above: Performed By: #### C BCA, CMP #### [facility] ([id number]) [address] [place] [address] #### 2857-1, 86310-3, 81937-0, FEPR, 2276-4 #### [facility] ([id number]) [address], [address] [place] [address] COMPREHENSIVE METABOLIC PANE Alex 08-02-2023 Albumin [Mass/Vol] 3.8 g/dL Normal 3.2-5.3 [facility] Comment on above: Performed By: #### C BCA, CMP #### [facility] ([id number]) [address] [place] [address] #### 2857-1, 11835-3, 65123-8, FEPR, 2276-4 #### [facility] ([id number]) [address], [address] [place] [address] ALP [Catalytic activity/Vol] 48 U/L Normal 39-130 [facility] Comment on above: Performed By: #### C BCA, CMP #### [facility] ([id number]) [address] [place] [address] #### 2857-1, 96160-1, 50624-8, FEPR, 2276-4 #### [facility] ([id number]) [address], [address] [place] [address] ALT [Catalytic activity/Vol] 18 U/L Normal 0-40 [facility] Comment on above: Performed By: #### C BCA, CMP #### [facility] ([id number]) [address] [place] [address] #### 2857-1, 69952-8, 35006-9, FEPR, 2276-4 #### [facility] ([id number]) [address], [address] [place] [address] Anion gap [Moles/Vol] 9 mmol/L Normal 5-15 [facility] Comment on above: Performed By: #### C BCA, CMP #### [facility] ([id number]) [address] [place] [address] #### 2857-1, 78864-1, 28238-6, FEPR, 2276-4 #### [facility] ([id number]) [address], [address] [place] [address] AST [Catalytic activity/Vol] 24 U/L Normal 0-41 [facility] Comment on above: Performed By: #### C BCA, CMP #### [facility] ([id number]) [address] [place] [address] #### 2857-1, 68361-6, 43926-9, FEPR, 2276-4 #### [facility] ([id number]) [address], [address] [place] [address] Bilirubin [Mass/Vol] 0.6 mg/dL Normal 0.3-1.2 [facility] Comment on above: Performed By: #### C BCA, CMP #### [facility] ([id number]) [address] [place] [address] #### 2857-1, 69053-3, 62679-1, FEPR, 2276-4 #### [facility] ([id number]) [address] [facility], [address] [place] [address] Calcium [Mass/Vol] 9.0 mg/dL Normal 8.5-10.5 [facility] Comment on above: Performed By: #### C BCA, CMP #### [facility] ([id number]) [address] [place] [address] #### 2857-1, 93001-4, 86322-9, FEPR, 2276-4 #### [facility] ([id number]) [address] [facility], [address] [place] [address] Chloride [Moles/Vol] 98 mmol/L Normal 98-109 [facility] Comment on above: Performed By: #### C BCA, CMP #### [facility] ([id number]) [address] [place] [address] #### 2857-1, 39930-9, 86436-4, FEPR, 2276-4 #### [facility] ([id number]) [address], [address] [place] [address] CO2 [Moles/Vol] 28 mmol/L Normal 22-32 [facility] Comment on above: Performed By: #### C BCA, CMP #### [facility] ([id number]) [address] [place] [address] #### 2857-1, 16531-0, 66296-6, FEPR, 2276-4 #### [facility] ([id number]) [address] [place] [address] Creatinine [Mass/Vol] 0.93 mg/dL Normal 0.70-1.20 [facility] Comment on above: Result Comment: METH OD TRACEABLE TO IDMS STANDARD Performed By: #### C BCA, CMP #### [facility] ([id number]) [address] [place] [address] #### 2857-1, 29216-6, 22636-9, FEPR, 2276-4 #### [facility] ([id number]) [address] [facility], [address] [address] GFR/1.73 sq M.predicted among non-blacks MDRD (S/P/Bld) [Vol rate/Area] 89 mL/min/{1.73_m2} Normal >59 [facility] Comment on above: Result Comment: Reported eGFR is based on the CKD-EPI 2020 equation that does not use a race coefficient. Performed By: #### C BCA, CMP #### [facility] ([id number]) [address] [place] [address] #### 2857-1, 22566-4, 88260-9, FEPR, 2276-4 #### [facility] ([id number]) [address] [place] [address] Glucose [Mass/Vol] 193 mg/dL High 65-99 [facility] Comment on above: Performed By: #### C BCA, CMP #### [facility] ([id number]) [address] [place] [address] #### 2857-1, 40777-8, 46801-0, FEPR, 2276-4 #### [facility] ([id number]) [address] [place] [address] Potassium [Moles/Vol] 4.8 mmol/L Normal 3.5-5.0 [facility] Comment on above: Performed By: #### C BCA, CMP #### [facility] ([id number]) [address] [place] [address] #### 2857-1, 45338-5, 40922-2, FEPR, 2276-4 #### [facility] ([id number]) [address] [place] [address] Protein [Mass/Vol] 7.8 g/dL Normal 6.0-8.0 [facility] Comment on above: Performed By: #### C BCA, CMP #### [facility] ([id number]) [address] [place] [address] #### 2857-1, 78801-1, 76960-1, FEPR, 2276-4 #### [facility] ([id number]) [address] [place] [address] Sodium [Moles/Vol] 135 mmol/L Normal 134-146 [facility] Comment on above: Performed By: #### C BCA, CMP #### [facility] ([id number]) [address] [place] [address] #### 2857-1, 41402-3, 03699-3, FEPR, 2276-4 #### [facility] ([id number]) [address] [place] [address] Urea nitrogen [Mass/Vol] 20 mg/dL Normal 5-27 [facility] Comment on above: Performed By: #### C GARDENIA, CMP #### [facility] ([id number]) [address] [place] [address] #### 2857-1, 77559-4, 01550-6, FEPR, 2276-4 #### [facility] ([id number]) [address] [facility], [address] [place] [address] FERRITINon 08-02-2023 Ferritin [Mass/Vol] 29 ng/mL Normal 24-336 [facility] Comment on above: Performed By: #### C GARDENIA, CMP #### [facility] ([id number]) [address] [place] [address] #### 2857-1, 87002-3, 11854-8, FEPR, 2276-4 #### [facility] ([id number]) [address] [place] [address], [address] [address] HCV Ab IA Qlon 08-02-2023 ANTI HCV W/PCR REFLX Non-Reactive Normal NRCT [facility] Comment on above: Result Comment: If recent infection suspected, recommend repeat testing (>2 months). Nvhexd-vr-lbhqfo ratio is <0.80. Performed By: #### C GARDENIA, CMP #### [facility] ([id number]) [address] [place] [address]284 #### 2857-1, 44277-2, 94747-9, FEPR, 2276-4 #### [facility] ([id number]) [address] [place] [address], [address] [place] [address] HGB A1C (GLYCO-HGB)on 2023 Glucose [Mass/Vol] 189 mg/dL Normal [facility] Comment on above: Performed By: #### C BCA, CMP #### [facility] ([id number]) [address] [place] [address]98[address] #### 2857-1, 60253-1, 60784-2, FEPR, 2276-4 #### [facility] ([id number]) [address] [facility], [address] [place] [address] HbA1c (Bld) [Mass fraction] 8.2 % High 4.4-5.6 [facility] Comment on above: Result Comment: NOTE ADA Guidelines Result HgbA1c Normal : less than 5.7 % Prediabetes : 5.7 % to 6.4 % Diabetes : > 6.4 % Use with caution in patients with abnormal hemoglobin variants as the half-life of red blood cells and in vivo glycation rates are affected. Performed By: #### C BCA, CMP #### [facility] ([id number]) [address] [place] [address] #### 2857-1, 44755-9, 71016-1, FEPR, 2276-4 #### [facility] ([id number]) [address] [facility], [address] [place] [address] IRON PROFILEon 08-02-2023 Iron [Mass/Vol] 47 ug/dL Low 50-212 [facility] Comment on above: Performed By: #### C BCA, CMP #### [facility] ([id number]) [address] [place] [address] #### 2857-1, 29976-9, 46312-6, FEPR, 2276-4 #### [facility] ([id number]) [address] [facility], [address] [place] [address] IRON BINDING 379 ug/dL Normal 250-425 [facility] Comment on above: Performed By: #### C BCA, CMP #### [facility] ([id number]) [address] [place] [address] #### 2857-1, 79662-2, 03352-5, FEPR, 2276-4 #### [facility] ([id number]) [address] [place] [address], [address] [place] [address] IRON SATURATION 12 % SATURATION Low 20-50 [facility] Comment on above: Performed By: #### Jerry VARNER, CMP #### [facility] ([id number]) [address] [place] [address]96 #### 2857-1, 61117-7, 84239-7, FEPR, 2276-4 #### [facility] ([id number]) [address] [place] [address], [address] [place] [address] Prostate specific Ag [Mass/V ol]on 08-02-2023 PSA SCREEN 0.52 ng/mL Normal 0.00-4.00 [facility] Comment on above: Result Comment: The method used for this test is Louis [employer] DXI chemiluminescent immunoassay. Values obtained by different assay methods cannot be used interchangeably. Performed By: #### C GRADENIA, CMP #### [facility] ([id number]) [address] [place] [address] 56992 #### 2857-1, 62894-1, 51518-9, FEPR, 2276-4 #### [facility] ([id number]) [address] [place] [address], [address] [place] [address] Vitamin D+Metabolites [Mass/ Vol]on 08-02-2023 VITAMIN D 25 HYD TOT 19.2 ng/mL Low 30-100 [facility] Comment on above: Result Comment: Vitamin D status 25 [place] Vitamin D Deficiency <20 ng/mL Insufficiency 20-29 ng/mL Sufficiency 30-100 ng/mL Toxicity >100 ng/mL NOTE: A pediatric reference range has not been established by the continuous vulcanizing machine operator of this kit. The [place] [employer] recommends a Vitamin D level of = or >20ng/mL in infants and children. Performed By: #### C BCA, [facility] #### [facility] ([id number]) [address] [facility] [place] [address] #### 2857-1, 93573-8, 20649-6, FEPR, 2276-4 #### [facility] ([id number]) [address] [facility], [address] [place] [address] XR SPINE CERVICAL 3 VWS OR L [...] Ash MD on 06/29/2023 3:[address] [facility] Vital Signs Date Time Vital Sign Value Performing Clinician Facility 04-09-2024 10:12 Body height 175.3 cm Bebeto LEON Work Phone: [facility] Comment on above: stated 04-09-2024 10:12040 Body mass index (BMI) [Ratio] 27.62 kg/m2 Bebeto LEON Work Phone: [facility] 04-09-2024 10:12040 Body weight 84.82 kg Bebeto LEON Work Phone: [facility] 04-09-2024 10:12-040 Diastolic blood pressure 97 mm[Hg] Bebeto LEON Work Phone: [facility] 04-09-2024 10:12-040 Heart rate 63 /min Bebeto LEON Work Phone: [facility] 04-09-2024 10:12-0400 Respiratory rate 16 /min Bebeto LEON Work Phone: [facility] 04-09-2024 10:12-0400 SaO2% (BldA) [Mass fraction] 100 % Bebeto LEON Work Phone: [facility] 04-09-2024 10:12-0400 Systolic blood pressure 141 mm[Hg] Bebeto LEON Work Phone: [facility] Encounters Encounter Date Encounter Type Care Provider Facility Start: 05-09-2024 End: 05-09-2024 ambulatory [facility] Start: 05-03-2024 End: 05-03-2024 ambulatory NAY Valera [facility] Start: 04-16-2024 End: 04-16-2024 Emergency department patient visit [facility] Start: 04-09-2024 End: 04-09-2024 Office outpatient visit 25 minutes Bebeto LEON Work Phone: [facility] Comment on above: Lumbosacral 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 (Primary Dx) Start: 04-09-2024 End: 04-09-2024 ambulatory [facility] Start: 04-01-2024 End: 04-01-2024 ambulatory [facility] Start: 02-22-2024 End: 02-22-2024 ambulatory [facility] Start: 01-09-2024 End: 01-09-2024 ambulatory [facility] Start: 12-26-2023 End: 12-27-2023 Emergency department patient visit DIVYA GONZALES [facility] Start: 09-22-2023 End: 09-22-2023 [facility] Start: 08-02-2023 End: 08-02-2023 ambulatory [facility] Start: 06-29-2023 End: 06-29-2023 ambulatory [facility] Start: 06-29-2023 End: 06-30-2023 ambulatory [facility] Start: 11-14-2022 End: 11-15-2022 ambulatory [facility] Facility:H1 Start: 10-24-2022 End: 10-25-2022 ambulatory [facility] Facility:H1 Start: 10-03-2022 End: 10-04-2022 ambulatory [facility] Facility:H1 Start: 09-12-2022 End: 09-13-2022 ambulatory [facility] Facility:H1 Start: 08-23-2022 End: 08-24-2022 ambulatory [facility] Facility:H1 Start: 08-16-2022 End: 08-17-2022 ambulatory [facility] Facility:H1 Start: 08-09-2022 End: 08-10-2022 ambulatory [facility] Facility:H1 Procedures Date Procedure Procedure Detail Performing Clinician Start: 04-06-2023 Microalbumin [Mass/v olume] in Urine by Test strip Bebeto LEON Work Phone: Plan of Treatment Date Care Activity Detail Author Start: 04-09-2025 Adult BMI Screening Adult BMI Screen [facility] Start: 04-09-2025 Tobacco Screening Tobacco Screening [facility] Start: 05-23-2024 End: 05-23-2024 Patient encounter procedure 05/23/2024 12:45 PM EST Office Visit [facility] [address] [place] [id number] Bebeto Haq PA [address] [place] [address] [facility] Start: 05-03-2024 End: 05-03-2024 Admission to same day surgery center 05/03/2024 8:58 AM EDT - 05/03/2024 9:06 AM EDT Surgery [facility] [address] [place] [id number] Nay Hyde MD [address] [place] [id number] INJECTION BLOCK NERVE MEDIAL BRANCH: bilat L45 51 [24504 (CPT )] [facility] Comment on above: INJECTION BLOCK NERV E MEDIAL BRANCH: bilat L45 51 [49430 (CPT )] Start: 05-03-2024 End: 05-03-2024 Njx dx/ther agt pvrt facet jt lmbr/sac 1 level INJECTION BLOCK NERVE MEDIAL BRANCH Lumbosacral spondylosis without myelopathy 05/03/2024 8:58 AM EDT [facility] Start: 05-03-2024 Subsequent hospital visit by physician 05/03/2024 8:58 AM EDT Hospital Encounter [facility] [address] [place] [phone] Nay Hyde MD [address] [place], [place] [id number] [facility] Start: 04-06-2024 Urine screening for protein Urine Microalbumin [facility] Start: 03-03-2024 COVID-19 Vaccine ( season) COVID-19 Vaccine ( season) [facility] Start: 03-03-2024 Influenza vaccination Influenza Vacc ine [facility] Start: 2019 Abdominal aortic aneurysm screening Abdominal Aortic Aneurysm (AAA) Screen [facility] Start: 2019 Fall Risk Screening Fall Risk Screen ing [facility] Start: 2004 Administration of varicella zoster vaccine Zoster (Shingles) Vaccine (1 of 2) [facility] Start: 1973 DTaP,Tdap and Td Vaccines (1 - Tdap) DTaP,Tdap and Td Vaccines (1 - Tdap) [facility] Start: 1972 Adult BMI Follow Up Plan Adult BMI Follow Up Plan [facility] Start: 1972 Diabetic foot examination Diabetic Foot Exam [facility] Start: 1966 Depression Screening Depression Scre ening [facility] Start: 1954 Glaucoma screening Diabetic Op hthalmology Exam [facility] Start: 1954 Medicare Annual Well ness Visit Medicare Annual Wellness Visit [facility] Immunizations Immunization Date Immunization Notes Care Provider Fa cility 04-11-2023 influenza virus vaccine, unspecified formulation Bebeto LEON Work Phone: [facility] 04-19-2021 influenza, injectabl e, quadrivalent, preservative free Bebeto LEON Work Phone: [facility] 05-18-2018 Influenza, injectabl e, Madin Kristina Canine Kidney, preservative free, quadrivalent Bebeto LEON Work Phone: [facility] 05-10-2017 influenza, seasonal, injectable, preservative free Bebeto LEON Work Phone: [facility] 03-25-2015 influenza, seasonal, injectable, preservative free Bebeto LEON Work Phone: [facility] 04-15-2014 influenza, seasonal, injectable Bebeto LEON Work Phone: [facility] Payers Date Payer Category Payer Medicaid MEDICAID [facility] M EDICAID [id number] 2016-Present [phone] [address] [place] [address] [id number] 1992 Medicare MEDICARE MEDICAR E PART A & B [id number] 1992-Present [phone] [address] [place] [address] [id number] 1959 Medicaid [id number] 1959 Medicare [id number] 1954 Unknown [id number] 2.16.840.1.004889.3.579.2.593 1954 Unknown [id number] 2.16.840.1.866005.3.579.2.593 1954 Unknown [id number] 2.16.840.1.137836.3.579.2.593 1954 Unknown [id number] 2.16.840.1.524431.3.579.2.593 1954 Unknown [id number] 2.16.840.1.015130.3.579.2.593 1954 Unknown [id number] 2.16.840.1.598153.3.579.2.593 1954 Unknown [id number] 2.16.840.1.077861.3.579.2.593 1954 Unknown [id number] 2.16.840.1.602797.3.579.2.1286 1954 Unknown [id number] 2.16.840.1.563474.3.579.2.1286 1954 Unknown [id number] 2.16.840.1.773902.3.579.2.1286 1954 Unknown [id number] 2.16.840.1.955762.3.579.2.128 1954 Unknown [id number] 2.16.840.1.117192.3.579.2.1286 1954 Unknown [id number] 2.16.840.1.979888.3.579.2.128 1954 Unknown [id number] 2.16.840.1.877470.3.579.2.1286 1954 Unknown [id number] 2.16.840.1.107765.3.579.2.1286 1954 Unknown [id number] 2.16.840.1.956870.3.579.2.1286 1954 Unknown [id number] 2.16.840.1.265922.3.579.2.1286 1954 Unknown [id number] 2.16.840.1.888218.3.579.2.1286 1954 Unknown [id number] 2.16.840.1.647813.3.579.2.1286 1954 Unknown [id number] 2.16.840.1.906398.3.579.2.1286 1954 Unknown [id number] 2.16.840.1.610767.3.579.2.1286 1954 Unknown [id number] 2.16.840.1.109667.3.579.2.1286 Social History Date Type Detail Facility Start: 01-09-[address] [facility] Ex-smoker [facility] History of tobacco use Current smoker [facility] History of tobacco use Cigarette Smoker P [facility] Start: 01-09-2024 Tobacco use and exposure Smokeless tobacco non-user [facility] Start: 04-09-2024 Alcoholic beverage intake Current non-drinker of alcohol (finding) [facility] Start: 07-18-2020 End: 04-09-2024 History of Social function [facility] Start: 07-18-2020 End: 04-09-2024 Tobacco use panel [facility] Childcare Unknown [facility] Start: 1955 Sex assigned at Not on file P [facility] Medical Equipment Procedure Code Equipment Code Equipment Origin al Text Equipment Identifier Dates Ld Pcng 55cm Rv Sq Scr S Df-4 - [id number] - [id number] Start: 11-20-2018 Lead Capsure Fix Novus 5076-45 - [id number] - [id number] Start: 11-20-2018 Lead Capsure Fix Novus 5076-52 - [id number] - [id number] Start: 07-21-2020 Dfbr Crd Ana Pardo ri Xt - [id number] - [id number] Start: 11-20-2018 Sys Crd Gustabo Prater Rpl [id number] - [id number] - [id number] Start: 11-16-2018 Start: 01-20-2018 Goals Date Patient Goal Desired Activity /State Personal health goal Comment on above: Formatting of this n ote might be different from the original. Evaluation of progress towards goal: discharge home with methodist/friends support. Personal health goal Comment on above: [...] Facility 04-09-2024 History of Present illness Narrative [facility] [address] [place] [address] Patient: Radha Quiñones Sex: male : 1955 Age: 68 y.o. PCP: [facility] Nathaniel 04/09/2024 Radha Quiñones is here for [...] Past Medical History: Diagnosis Date Angina pectoris ([facility]) Arrhythmia Atrial fibrillation ([facility]) Atrial flutter ([facility]) Atrial flutter ([facility]) Benign prostatic hyperplasia BPH with urinary obstruction Cancer ([facility]) skin cancer Cataract Constipation Coronary artery disease Dental disease no teeth Diabetes mellitus ([facility]) Diabetes mellitus type 2, controlled ([facility]) Hypercholesterolemia Hypertension Myositis Peripheral neuropathy Rash Scalp wound Urinary incontinence Ventricular tachycardia ([facility]) Visual impairment glasses Past Surgical History: Procedure Laterality Date 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; excision and debridement Left 10/29/2021 Performed by Ambrosio Al MD at [facility] AMPUTATION TOE 4TH & 5TH/WIDE INCISIONAL DEBRIDEMENT LEFT DIABETIC FOOT NECROTIZING FASCITIS Left 08/12/2021 Performed by Ambrosio Al MD at [facility] CARDIAC DEFIBRILLATOR PLACEMENT medtronic CATARACT EXTRACTION Coronary angiogram and left ventricular gram/pressure N/A 11/19/2018 Performed by Sage Jay MD at [facility] Coronary fractional flow reserve N/A 11/19/2018 Performed by Sage aJy MD at [facility] CYSTOSCOPY [facility] SOLUTION N/A 10/27/2021 Performed by Frederic Thorne MD at [facility] DC ICD RA lead replace - MDT N/A 07/21/2020 Performed by Yoni Espinoza MD at [facility] (EP) EP - Device DC ICD Left 11/20/2018 Performed by Shayna Betancourt MD at [facility] (EP) EP - Diagnostic-- EP study Right 11/16/2018 Performed by Rafita Garcia MD at [facility] (EP) Loop recorder implant N/A 11/16/2018 Performed by Rafita Garcia MD at [facility] (EP) Loop recorder removal N/A 07/21/2020 Performed by Yoni Espinoza MD at [facility] (EP) SKIN CANCER EXCISION No Known Allergies [...] Interpersonal Safety: Unknown (08/24/2023) Received from [facility] Safety & Environment Fear of Current or [...] these patients; however, close collaboration with a urology surgeon or collect on delivery clerk is recommended before initiating the RFN procedure, therefore prior to RFA we will consult with patient's urology surgeon/collect on delivery clerk for approval and recommendations to proceed with the procedure. OARRS: Reviewed. Scribe Statement: Scribed for and in the presence of EDWARD BENAVIDES by Chula Bonilla CNA. Provider Statement: I, EDWARD BENAVIDES, personally performed the services described in the documentation, as scribed by Chula Bonilla CNA in my presence, and it is both accurate and complete. Chula Bonilla CNA 04/09/24 1046 EDWARD Benavides 04/11/24 1226 documented in this encounter [employer] Instructions 04-09-2024 Patient Instructions Note Date [...] nearest emergency room. documented in this encounter [facility] Clinical Note 08-09-2022 Note Date & Type [...] by: EDILSON DON Date: 2022-08-09 15:44 [facility] Evaluation note Note Date & Type Note Facility Evaluation note Diagnosis Lumbosacral spondylosis without myelopathy- Primary Lumbosacral spondylosis without myelopathy- Primary Lumbosacral spondylosis without myelopathy documented in this encounter [facility] Summary Purpose Family History No [...] NERVE MEDIAL BRANCH: bilat L45 51 Bebeto Haq PA [address] [facility] [place] [address] Referral ID Status Reason Start Date Expiration Date V isits Requested Visits Authorized [id number] Pending Review 04/09/2024 04/09/2025 1 1 Additional Source Comments (unrecognized sect ion and content) No Status Records FoundNo Status Records Found INFORMATION SOURCE (unrecogn ized section and content) DATE CREATED AUTHOR 11/16/2022 [facility] DATE CREATED AUTHOR AUTHOR'S ORGANIZ ATION 05/11/2024 [facility] Reason for Visit (unrecogniz ed section and content) Reason Comments Back Pain Care Teams (unrecognized sec tion and content) Accounting Recruiter Relationship Specialty Start Date End Date Services, [facility] [address] [place], [place] PCP - General Family Medicine 12/26/23 [...] BE BASED ON THE PRIMARY CLINICAL RECORDS. [facility] [employer] [facility]. provides no warranty or guarantee of the accuracy or completeness of information in this document.
== END 2024-05-22 13:50 | disposition home or self-care (01) ==
LOC: WC 13:49
PROVIDERS: Visit Provider Physician Assistant
DX: E11.621 Type 2 diabetes mellitus with foot ulcer (principal); L97.421 Non-pressure chronic ulcer of left heel and midfoot limited to breakdown of skin; L97.428 Non-pressure chronic ulcer of left heel and midfoot with other specified severity
CPT/HCPCS: A6213; G0463

== ENCOUNTER 2024-06-11 10:39 | Outpatient (OUT) | payer MEDICARE, MEDICAID, SELFPAY | END 2024-06-11 10:40 | disposition home or self-care (01) | LOC: WC 10:39 | PROVIDERS: Visit Provider Physician Assistant | DX: E11.621 Type 2 diabetes mellitus with foot ulcer (principal); L97.421 Non-pressure chronic ulcer of left heel and midfoot limited to breakdown of skin; L97.428 Non-pressure chronic ulcer of left heel and midfoot with other specified severity | CPT/HCPCS: G0463 ==

== ENCOUNTER 2024-07-12 09:00 | Outpatient (OUT) | payer MEDICARE, MEDICAID, SELFPAY ==
--- OUTSIDE RECORDS SUMMARY | 2024-07-12 10:01 | XMS_ITS | CCD ---
Author Organization [facility] Care Team Providers Care Ship Carpenter Name Role Phone MARIANA PHILLIPS Attending Unavailable HIGHLANDERMARIANA Admitting Unavailable HIGHLANDER, MARIANA Liu Attending Unavailable HIGHLANDER, MARIANA Liu Admitting Unavailable HIGHLANDER, MARIANA Liu Admitting Unavailable HIGHLANDERMARIANA Attending Unavailable SHANTANUCHET Admitting Unavailable SHANTANUCHET Attending Unavailable HIGHLANDERMARIANA Admitting Unavailable HIGHLANDER, MARIANA Liu Attending Unavailable HIGHLANDERMARIANA Admitting Unavailable ZIEBER, DR EDILSON Jerez Consulting Unavailable HIGHLANDER, MARIANA Liu Attending Unavailable HIGHLANDERMARIANA Consulting Unavailable HIGHLANDERMARIANA Admitting Unavailable HIGHLANDER, MARIANA Liu Consulting Unavailable HIGHLANDERMARIANA Attending Unavailable Services, [facility] Primary Care Provider Services, [facility] Primary Care Provider ANGLIM, IZZY A Referring Unavailable ANGLIM, IZZY A Primary Care Unavailable ANGLIM, IZZY A Referring Unavailable ANGLIM, IZZY A Primary Care Unavailable ANGLIM, IZZY A Referring Unavailable ANGLIM, IZZY A Primary Care Unavailable DIVYA GONZALES Attending Unavailable SERVICES, [facility] Primary Care Unava ilable CHEHADIVYA SANDERSON Attending Unavailable CHEHADEDIVYA Referring Unavailable SERVICES, [facility] Primary Care Unava ilable CHEHADEDIVYA Attending Unavailable CHEHADE, DIVYA E Referring Unavailable SERVICES, [facility] Primary Care Unava ilable BEBETO HAQ Attending Unavailable JACKIE BARRERA Referring Unavailable SERVICES, [facility] Unava ilable BEBETO HAQ Attending Unavailable NAY HYDE Referring Unavailable SERVICES, [facility] Primary Care Unava ilable BEBETO HAQ Attending Unavailable BEBETO HAQ Referring Unavailable SERVICES, [facility] Unava ilable BEBETO HAQ Attending Unavailable NAY HYDE Referring Unavailable SERVICES, [facility] Unava ilable SERVICES, [facility] Unava ilable DIVYA GONZALES Attending Unavailable NAY HYED Admitting Unavailable NAY HYDE Attending Unavailable NAY HYDE Referring Unavailable NAY YHDE Attending Unavailable NAY HYDE Referring Unavailable SERVICES, [facility] Unava ilable ANGCARLOS IZZY A Referring Unavailable SERVICES, [facility] Unava ilable ANGLIM, IZZY A Referring Unavailable TOBY SAMA A Primary Care Unavailable BEBETO HAQ Attending Unavailable NAY HYDE Referring Unavailable SERVICES, [facility] Unava ilable Medications Current Medications Medication Drug Class(es) Dates Sig (Normalized) Sig (Original) 8 hr acetaminophen 650 mg extended release oral tablet (4 sources) take 1 tablet by mouth every eight hours as needed for pain acetaminophen (TYLENOL ARTHRITIS) 650 mg 8 hr tablet Take 1 tablet (650 mg total) by mouth every 8 (eight) hours as needed for pain. Active End: 04-09-2024 take 2 tablets by mouth every six hours as needed for pain acetaminophen (TYLENOL) 325 mg tablet Take 2 tablets (650 mg total) by mouth every 6 (six) hours as needed for pain. 04/09/2024 acetaminophen 325 mg / HYDROcodone bitartrate 5 mg oral tablet (3 sources) Opioid Agonist take 1 tablet by mouth every six hours as needed for pain HYDROcodone-acetaminophen (NORCO) 5-325 mg per tablet Take 1 tablet by mouth every 6 (six) hours as needed for pain. Active amiodarone hydrochloride 200 mg oral tablet (3 sources) Antiarrhythmic Start : 03-08 take 1 tablet by mouth in the morning amiodarone (PACERONE) 200 mg tablet Take 1 tablet (200 mg total) by mouth in the morning. 90 tablet 3 03/08/2023 Active aspirin 81 mg delayed release oral tablet (3 sources) Platelet Aggregation Inhibitor, Nonsteroidal Anti-inflammatory Drug take 1 tablet by mouth in the morning aspirin 81 mg Take 1 tablet (81 mg total) by mouth in the morning. Active carisoprodol 350 mg oral tablet (3 sources) Muscle Relaxant Start : 12-27 take 1 tablet by mouth three times daily as needed for muscle spasms carisoprodoL (SOMA) 350 mg tablet Take 1 tablet (350 mg total) by mouth 3 (three) times a day as needed for muscle spasms. 12/28/2023 Active cholecalciferol 0.025 mg oral capsule (6 sources) Vitamin D Start : 11-01 take [...] morning. Active empagliflozin 25 mg oral tablet (3 sources) Sodium-Glucose Cotransporter 2 Inhibitor take 1 tablet by mouth in the morning empagliflozin (JARDIANCE) 25 mg tablet tablet Take 1 tablet (25 mg total) by mouth in the morning. Active sodium hypochlorite 2.5 mg/ml topical solution (3 sources) sodium hypochlor ite (DAKIN'S, HALF-STRENGTH,) 0.25 % external solution Apply 1 Application topically daily as needed for wound care (Use to clean left foot wound as instructed.). Use to clean left foot wound as instructed. Active 3 ml insulin glargine 100 unt/ml pen injector (3 sources) Insulin Analog inject 32 [IU] by subcutaneous injection once daily insulin glargine (LANTUS, BASAGLAR) 100 unit/mL (3 mL) insulin pen Inject 32 Units under the skin nightly. Active lactobacillus acidophilus [id number] unt / pectin 10 mg oral capsule (3 sources) take 1 capsule by mouth once daily at breakfast acidophilus-pectin, citrus 100 million cell-10 mg capsule Take by mouth daily with breakfast. Active magnesium oxide 400 mg oral tablet (3 sources) Start: 2020 take 1 tablet by mouth three times daily at mealtime magnesium oxide (MAG-OX) 400 mg tablet Indications: Hypomagnesemia Take 1 tablet (400 mg total) by mouth 3 (three) times a day with meals. 90 tablet 5 06/16/2021 Active 24 hr metFORMIN hydrochloride 500 mg extended release oral tablet (3 sources) Biguanide Start: 2017 take 2 tablets by mouth every twenty-four hours in the morning, then take 2 tablets by mouth at bedtime metFORMIN XR (GLUCOPHAGE-XR) 500 mg 24 hr tablet Take 2 tablets (1,000 mg total) by mouth in the morning and 2 tablets (1,000 mg total) before bedtime. 01/23/2018 Active 24 hr metoprolol succinate 100 mg extended release oral tablet (4 sources) beta-Adrenergic Elsi Start: 2023 take 1 tablet by mouth every twenty-four hours in the morning metoprolol succinate XL (TOPROL XL) 100 mg 24 hr tablet Indications: Ventricular tachycardia (CMS-HCC) , Atrial fibrillation with RVR (CMS-HCC) , V-tach (CMS-HCC) TAKE 1 TABLET (100 MG TOTAL) BY MOUTH IN THE MORNING 30 tablet 05/23/2024 Active Start: 02-21-2024 End: 05-23-2024 take 1 tablet by mouth every twenty-four hours in the morning metoprolol succinate XL (TOPROL XL) 100 mg 24 hr tablet Indications: Ventricular tachycardia (CMS-HCC) , Atrial fibrillation with RVR (CMS-HCC) , V-tach (CMS-HCC) TAKE 1 TABLET (100 MG TOTAL) BY MOUTH IN THE MORNING 90 tablet 02/21/2024 05/23/2024 Discontinued OZEMPIC 0.25 mg or 0.5 mg (2 mg/3 mL) pen injector (3 sources) Start: 11-28-2023 inject 0.5 mg by subcutaneous injection every week OZEMPIC 0.25 mg or 0.5 mg (2 mg/3 mL) pen injector Inject 0.5 mg under the skin once a week. 11/28/2023 Active pantoprazole 40 mg delayed release oral tablet (3 sources) Proton Pump Inhibitor Start: 08-16-2021 take 1 tablet by mouth once daily before breakfast pantoprazole (PROTONIX) 40 mg EC tablet Take 1 tablet (40 mg total) by mouth every morning before breakfast. 30 tablet 3 08/16/2021 Active rivaroxaban 20 mg oral tablet (3 sources) Factor Xa Inhibitor Start: 02-21-2024 take 1 tablet by mouth in the morning XARELTO 20 mg tablet tablet Indications: Atrial fibrillation, unspecified type (CMS-HCC) TAKE 1 TABLET (20 MG TOTAL) BY MOUTH IN THE MORNING 90 tablet 1 02/21/2024 Active sertraline 50 mg oral tablet (3 sources) Serotonin Reuptake Inhibitor take 1 tablet by mouth in the morning sertraline (ZOLOFT) 50 mg tablet Take 1 tablet (50 mg total) by mouth in the morning. Active tamsulosin hydrochloride 0.4 mg oral capsule (3 sources) alpha-Adrenergi c Elsi Start: 05-02-2020 take 1 capsule by mouth in the [...] 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: [BACTEREMIA] Onset: 08-26-2022 Episodic Cardiac dysrhythmias (17 sources) Unspecified atrial fibrillation; 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: [Paroxysmal atrial fibrillation] Onset: 11-14-2018 11-14-2018 Chronic Cardiac dysrhythmias (1 source) Bradycardia, unspecified; 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: [BRADYCARDIA UNSPECIFIED] Onset: 08-26-2022 Episodic Chronic ulcer of skin (6 sources) 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 breakdown of skin; 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: [Non-pressure chronic ulcer of left heel and midfoot limited to breakdown of skin] Onset: 08-26-2022 Chronic Conduction disorders (3 sources) Automatic implantable cardiac defibrillator in situ; 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: [Presence of automatic (implantable) cardiac defibrillator] Onset: 12-04-2018 02-19-2019 Chronic Coronary atherosclerosis and other heart disease (6 sources) Coronary atherosclerosis; 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: [Atherosclerotic heart disease of [place] coronary artery without angina pectoris] Onset: 12-04-2018 12-04-2018 Chronic Diabetes mellitus with complications (20 sources) Type 2 diabetes mellitus with other skin ulcer; 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: [Type 2 diabetes mellitus with diabetic nephropathy] Onset: 04-18-2018 Chronic Disorders of lipid metabolism (4 sources) Pure hypercholesterolemia ; 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: [Pure hypercholesterolemia , unspecified] Onset: 12-04-2018 12-04-2018 Chronic E Codes: Fall (1 source) Unspecified fall, initial encounter; 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: [Unspecified fall, initial encounter] Onset: 04-16-2024 Episodic E Codes: Fall (1 source) Fall Onset: 04-16-2024 Essential hypertension (4 sources) Essential (primary) hypertension; 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: [Essential hypertension] Onset: 11-17-2021 11-17-2021 Chronic Genitourinary symptoms and ill-defined conditions (3 sources) Functional urinary incontinence; 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: [Functional urinary incontinence] Onset: 08-10-2016 09-07-2016 Chronic Hyperplasia of prostate (6 sources) Benign prostatic hypertrophy with outflow obstruction; [...] caused by tuberculosis or sexually transmitted disease) (3 sources) Osteomyelitis; 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: [Osteomyelitis, unspecified] Onset: 11-17-2021 11-17-2021 [...] Episodic Other nutritional; endocrine; and metabolic disorders (3 sources) Hypomagnesemia; 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: [Hypomagnesemia] Onset: 11-17-2021 11-17-2021 Chronic [...] Spondylosis; intervertebral disc disorders; other back problems (7 sources) Lumbosacral spondylosis without myelopathy; 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: [Spondylosis without myelopathy or radiculopathy, lumbosacral region] Onset: 02-22-2024 04-09-2024 Chronic Unclassified (1 source) CHRN KIDNEY DISEASE STG 3 UNSP; 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: [CHRN KIDNEY DISEASE STG 3 UNSP] Onset: 09-21-2022 Unclassified (1 source) ems Onset: 12-26-2023 Past or Other Problems Problem Classification Problem Date Documented Date Episodic/Chronic Abdominal pain (1 source) Flank pain Onset: 12-26-2023 Episodic Complications of surgical procedures or medical care (3 sources) Non-healing surgical wound; 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: [Other complications of procedures, not elsewhere classified, initial encounter] Onset: 10-01-2021 10-01-2021 Episodic Genitourinary symptoms and ill-defined conditions (3 sources) Jordy hematuria; 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: [Gross hematuria] Onset: 09-15-2021 09-15-2021 Episodic Immunizations and screening for infectious disease (1 source) Encounter for screening for other viral diseases; 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: [Encounter for screening for other viral diseases] Onset: 08-02-2023 Episodic Nonspecific chest pain (3 sources) Chest pain; 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: [Chest pain, unspecified] Onset: 11-22-2017 11-22-2017 Episodic Open wounds of head; neck; and trunk (3 sources) Open wound of scalp ; 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: [Unspecified open wound of scalp, initial encounter] Onset: 03-02-2018 03-02-2018 Episodic Other connective tissue disease (3 sources) Myositis; 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: [Myositis, unspecified] Onset: 08-10-2021 08-10-2021 Episodic Other eye disorders (3 sources) Degenerative changes of anterior chamber angle; 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: [Degeneration of chamber angle, unspecified eye] Onset: 11-17-2021 11-17-2021 Episodic Spondylosis; intervertebral disc disorders; other back problems (4 sources) Radiculopathy, lumbar region; 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: [Backache] Onset: 06-29-2023 Episodic Results Test Name Value Interpretation Reference Range Facil lul PHAM METABOLIC PANE Alex 05-09-2024 Albumin [Mass/Vol] 4.2 g/dL Normal 3.2-5.3 [facility] Comment on above: Performed By: #### C BCA, CMP #### [facility] ([id number]) [address] [place] [address] #### 2857-1, 41569-0, 99900-9, FEPR, 2276-4 #### [facility] ([id number]) [address], [address] [place] [address] ALP [Catalytic activity/Vol] 46 U/L Normal 39-130 [facility] Comment on above: Performed By: #### C BCA, CMP #### [facility] ([id number]) [address] [place] [address] #### 2857-1, 80238-2, 88813-8, FEPR, 2276-4 #### [facility] ([id number]) [address], [address] [place] [address] ALT [Catalytic activity/Vol] 16 U/L Normal 0-40 [facility] Comment on above: Performed By: #### C BCA, CMP #### [facility] ([id number]) [address] [place] [address] 65163 #### 2857-1, 97838-0, 45727-3, FEPR, 2276-4 #### [facility] ([id number]) [address], [address] [place] [address] Anion gap [Moles/Vol] 10 mmol/L Normal 5-15 [facility] Comment on above: Performed By: #### C BCA, CMP #### [facility] ([id number]) [address] [place] [address] #### 2857-1, 33287-2, 44702-9, FEPR, 2276-4 #### [facility] ([id number]) [address], [address] [place] [address] AST [Catalytic activity/Vol] 16 U/L Normal 0-41 [facility] Comment on above: Performed By: #### C BCA, CMP #### [facility] ([id number]) [address] [place] [address] #### 2857-1, 26385-1, 23002-9, FEPR, 2276-4 #### [facility] ([id number]) [address], [address] [place] [address] Bilirubin [Mass/Vol] 0.5 mg/dL Normal 0.3-1.2 [facility] Comment on above: Performed By: #### C BCA, CMP #### [facility] ([id number]) [address] [place] [address] 10702 #### 2857-1, 34382-9, 15262-1, FEPR, 2276-4 #### [facility] ([id number]) [address] [place] [address], [address] [place] [address] Calcium [Mass/Vol] 9.3 mg/dL Normal 8.5-10.5 [facility] Comment on above: Performed By: #### C BCA, CMP #### [facility] ([id number]) [address] [place] [address]226 #### 2857-1, 10985-9, 44296-2, FEPR, 2276-4 #### [facility] ([id number]) [address] [address], [address] [place] [address] Chloride [Moles/Vol] 99 mmol/L Normal 98-109 [facility] Comment on above: Performed By: #### C BCA, CMP #### [facility] ([id number]) [address] [place] [address] 25573 #### 2857-1, 60540-0, 00338-2, FEPR, 2276-4 #### [facility] ([id number]) [address], [address] [place] [address] CO2 [Moles/Vol] 26 mmol/L Normal 22-32 [facility] Comment on above: Performed By: #### C BCA, CMP #### [facility] ([id number]) [address] [place] [address] #### 2857-1, 81563-9, 28309-5, FEPR, 2276-4 #### [facility] ([id number]) [address], [address] [place] [address] Creatinine [Mass/Vol] 1.27 mg/dL High 0.70-1.20 [facility] Comment on above: Result Comment: METH OD TRACEABLE TO IDMS STANDARD Performed By: #### C BCA, CMP #### [facility] ([id number]) [address] [place] [address] 10069 #### 2857-1, 76470-0, 79327-0, FEPR, 2276-4 #### [facility] ([id number]) [address], [address] [place] [address] GFR/1.73 sq M.predicted among non-blacks MDRD (S/P/Bld) [Vol rate/Area] 61 mL/min/{1.73_m2} Normal >59 [facility] Comment on above: Result Comment: Reported eGFR is based on the CKD-EPI 2020 equation that does not use a race coefficient. Performed By: #### C BCA, CMP #### [facility] ([id number]) [address] [place] [address]157 #### 2857-1, 40349-1, 70441-8, FEPR, 2276-4 #### [facility] ([id number]) [address], [address] [place] [address] Glucose [Mass/Vol] 177 mg/dL High 65-99 [facility] Comment on above: Performed By: #### C BCA, CMP #### [facility] ([id number]) [address] [place] [address] #### 2857-1, 14020-1, 55139-0, FEPR, 2276-4 #### [facility] ([id number]) [address], [address] [place] [address] Potassium [Moles/Vol] 4.5 mmol/L Normal 3.5-5.0 [facility] Comment on above: Performed By: #### C BCA, CMP #### [facility] ([id number]) [address] [place] [address] 31367 #### 2857-1, 79101-2, 11875-7, FEPR, 2276-4 #### [facility] ([id number]) [address], [address] [place] [address] Protein [Mass/Vol] 7.6 g/dL Normal 6.0-8.0 [facility] Comment on above: Performed By: #### C BCA, CMP #### [facility] ([id number]) [address] [place] [address] #### 2857-1, 64535-5, 18432-3, FEPR, 2276-4 #### [facility] ([id number]) [address], [address] [place] [address] Sodium [Moles/Vol] 135 mmol/L Normal 134-146 [facility] Comment on above: Performed By: #### C BCA, CMP #### [facility] ([id number]) [address] [place] [address] 36366 #### 2857-1, 22138-1, 47506-5, FEPR, 2276-4 #### [facility] ([id number]) [address], [address] [place] [address] Urea nitrogen [Mass/Vol] 24 mg/dL Normal 5-27 [facility] Comment on above: Performed By: #### C BCA, CMP #### [facility] ([id number]) [address] [place] [address] 35583 #### 2857-1, 36088-4, 16737-9, FEPR, 2276-4 #### [facility] ([id number]) [address] [address], [address] [place] [address] Lipid 1996 panelon 4 Cholesterol [Mass/Vol] 137 mg/dL Low 150-200 [facility] Comment on above: Performed By: #### C BCA, CMP #### [facility] ([id number]) [address] [place] [address] #### 2857-1, 31951-6, 13801-6, FEPR, 2276-4 #### [facility] ([id number]) [address], [address] [place] [address] Cholesterol in HDL [Mass/Vol] 32 mg/dL Low >39 [facility] Comment on above: Result Comment: HDL <40 mg/dL - High Risk HDL > or = 40mg/dL- Desirable HDL >60 mg/dL - Negative Risk Performed By: #### C BCA, CMP #### [facility] ([id number]) [address] [place] [address]144 #### 2857-1, 27772-6, 81175-1, FEPR, 2276-4 #### [facility] ([id number]) [address], [address] [place] [address] Cholesterol in LDL [Mass/Vol] 50 mg/dL Normal <130 [facility] Comment on above: Result Comment: LDL <100 mg/dL - Desirable LDL >160 mg/dL - High Risk Performed By: #### C BCA, CMP #### [facility] ([id number]) [address] [place] [address] 89657 #### 2857-1, 25089-4, 70291-7, FEPR, 2276-4 #### [facility] ([id number]) [address], [address] [place] [address] Cholesterol in VLDL [Mass/Vol] 55 mg/dL High 0-30 [facility] Comment on above: Performed By: #### C BCA, CMP #### [facility] ([id number]) [address] [place] [address] 17377 #### 2857-1, 25704-7, 40074-7, FEPR, 2276-4 #### [facility] ([id number]) [address], [address] [place] [address] CHOLESTEROL:HDL 4.3 Normal 1.0-5.0 [facility] Comment on above: Performed By: #### C BCA, CMP #### [facility] ([id number]) [address] [place] [address]39 #### 2857-1, 34435-5, 21011-4, FEPR, 2276-4 #### [facility] ([id number]) [address], [address] [place] [address] Triglyceride [Mass/Vol] 275 mg/dL High 27-150 [facility] Comment on above: Performed By: #### C BCA, CMP #### [facility] ([id number]) [address] [place] [address] 33370 #### 2857-1, 97217-0, 75385-9, FEPR, 2276-4 #### [facility] ([id number]) [address], [address] [place] [address] TSH WITH REFLEXon 05-09-2024 TSH 4.67 uIU/mL Normal 0.49-4.67 [facility] Comment on above: Performed By: #### C BCA, CMP #### [facility] ([id number]) [address] [place] [address]164 #### 2857-1, 40769-6, 18414-0, FEPR, 2276-4 #### [facility] ([id number]) [address], [address] [place] [address] BASIC METABOLIC PANLon 04-16 Anion gap [Moles/Vol] 10 mmol/L Normal 5-15 [facility] Comment on above: Performed By: #### C BCA, CMP #### [facility] ([id number]) [address] [place] [address] 72500 #### 2857-1, 24553-4, 01835-4, FEPR, 2276-4 #### [facility] ([id number]) [address], [address] [place] [address] Calcium [Mass/Vol] 9.3 mg/dL Normal 8.5-10.5 [facility] Comment on above: Performed By: #### C BCA, CMP #### [facility] ([id number]) [address] [place] [address] 66327 #### 2857-1, 80497-4, 28202-9, FEPR, 2276-4 #### [facility] ([id number]) [address], [address] [place] [address] Chloride [Moles/Vol] 101 mmol/L Normal 98-109 [facility] Comment on above: Performed By: #### C BCA, CMP #### [facility] ([id number]) [address] [place] [address] 79847 #### 2857-1, 06698-8, 12500-0, FEPR, 2276-4 #### [facility] ([id number]) [address], [address] [place] [address] CO2 [Moles/Vol] 27 mmol/L Normal 22-32 [facility] Comment on above: Performed By: #### C BCA, CMP #### [facility] ([id number]) [address] [place] [address] 86264 #### 2857-1, 69651-3, 34101-1, FEPR, 2276-4 #### [facility] ([id number]) [address], [address] [place] [address] Creatinine [Mass/Vol] 1.19 mg/dL Normal 0.70-1.20 [facility] Comment on above: Result Comment: METH OD TRACEABLE TO IDMS STANDARD Performed By: #### C BCA, CMP #### [facility] ([id number]) [address] [place] [address] 80589 #### 2857-1, 44326-9, 69773-2, FEPR, 2276-4 #### [facility] ([id number]) [address], [address] [place] [address] GFR/1.73 sq M.predicted among non-blacks MDRD (S/P/Bld) [Vol rate/Area] 66 mL/min/{1.73_m2} Normal >59 [facility] Comment on above: Result Comment: Reported eGFR is based on the CKD-EPI 2020 equation that does not use a race coefficient. Performed By: #### C BCA, CMP #### [facility] ([id number]) [address] [place] [address] 36175 #### 2857-1, 52110-4, 12104-2, FEPR, 2276-4 #### [facility] ([id number]) [address], [address] [place] [address] Glucose [Mass/Vol] 165 mg/dL High 65-99 [facility] Comment on above: Performed By: #### C BCA, CMP #### [facility] ([id number]) [address] [place] [address] 96984 #### 2857-1, 50875-4, 45301-5, FEPR, 2276-4 #### [facility] ([id number]) [address], [address] [place] [address] Potassium [Moles/Vol] 4.2 mmol/L Normal 3.5-5.0 [facility] Comment on above: Performed By: #### C BCA, CMP #### [facility] ([id number]) [address] [place] [address] 22383 #### 2857-1, 45067-5, 09573-9, FEPR, 2276-4 #### [facility] ([id number]) [address], [address] [place] [address] Sodium [Moles/Vol] 138 mmol/L Normal 134-146 [facility] Comment on above: Performed By: #### C BCA, CMP #### [facility] ([id number]) [address] [place] [address] #### 2857-1, 17407-3, 07860-3, FEPR, 2276-4 #### [facility] ([id number]) [address], [address] [place] [address] Urea nitrogen [Mass/Vol] 17 mg/dL Normal 5-27 [facility] Comment on above: Performed By: #### C BCA, CMP #### [facility] ([id number]) [address] [place] [address] 64759 #### 2857-1, 25458-5, 84584-7, FEPR, 2276-4 #### [facility] ([id number]) [address], [address] [place] [address] CBC AND AUTO DIFFon 10-15-20 24 ABSOLUTE BASOPHIL 0.0 X10E9/L Normal 0.0-0.2 [facility] Comment on above: Performed By: #### C BCA, CMP #### [facility] ([id number]) [address] [place] [address] 25776 #### 2857-1, 35213-5, 83817-4, FEPR, 2276-4 #### [facility] ([id number]) [address] [facility], [address] [place] [address] ABSOLUTE NEUTROPHIL 4.0 X10E9/L Normal 1.5-6.6 [facility] Comment on above: Performed By: #### C BCA, CMP #### [facility] ([id number]) [address] [place] [address] 13858 #### 2857-1, 88206-6, 40095-6, FEPR, 2276-4 #### [facility] ([id number]) [address] [facility], [address] [place] [address] Basophils/100 WBC (Bld) 0.5 % Normal [facility] Comment on above: Performed By: #### C BCA, CMP #### [facility] ([id number]) [address] [place] [address] 94050 #### 2857-1, 10148-4, 43826-4, FEPR, 2276-4 #### [facility] ([id number]) [address], [address] [place] [address] Eosinophils (Bld) [#/Vol] 0.0 10*3/uL Normal 0.0-0.4 [facility] Comment on above: Performed By: #### C BCA, CMP #### [facility] ([id number]) [address] [place] [address] 967[address] #### 2857-1, 06273-4, 50440-9, FEPR, 2276-4 #### [facility] ([id number]) [address], [address] [place] [address] Eosinophils/100 WBC (Bld) 0.4 % Normal [facility] Comment on above: Performed By: #### C BCA, CMP #### [facility] ([id number]) [address] [place] [address] 8[address] #### 2857-1, 47143-9, 62137-1, FEPR, 2276-4 #### [facility] ([id number]) [address], [address] [place] [address] Erythrocyte distribution width (RBC) [Ratio] 15.7 % High 11.5-15.0 [facility] Comment on above: Performed By: #### C BCA, CMP #### [facility] ([id number]) [address] [place] [address] #### 2857-1, 31815-6, 83720-0, FEPR, 2276-4 #### [facility] ([id number]) [address], [address] [place] [address] Hematocrit (Bld) [Volume fraction] 39.9 % Normal 39-49 [facility] Comment on above: Performed By: #### C BCA, CMP #### [facility] ([id number]) [address] [place] [address] 39809 #### 2857-1, 86125-0, 85925-3, FEPR, 2276-4 #### [facility] ([id number]) [address], [address] [place] [address] Hemoglobin (Bld) [Mass/Vol] 13.1 g/dL Normal 13.0-17.0 [facility] Comment on above: Performed By: #### C BCA, CMP #### [facility] ([id number]) [address] [place] [address] 32427 #### 2857-1, 00243-0, 45940-5, FEPR, 2276-4 #### [facility] ([id number]) [address], [address] [place] [address] Lymphocytes (Bld) [#/Vol] 1.1 10*3/uL Normal 1.0-3.5 [facility] Comment on above: Performed By: #### C BCA, CMP #### [facility] ([id number]) [address] [place] [address] 60603 #### 2857-1, 24311-8, 62000-1, FEPR, 2276-4 #### [facility] ([id number]) [address], [address] [place] [address] Lymphocytes/100 WBC (Bld) 18.2 % Normal [facility] Comment on above: Performed By: #### C BCA, CMP #### [facility] ([id number]) [address] [place] [address] 58469 #### 2857-1, 44041-8, 68633-3, FEPR, 2276-4 #### [facility] ([id number]) [address], [address] [place] [address] MCH (RBC) [Entitic mass] 30.6 pg Normal 27-34 [facility] Comment on above: Performed By: #### C GARDENIA, CMP #### [facility] ([id number]) [address] [place] [address] 51627 #### 2857-1, 52610-6, 22829-8, FEPR, 6-4 #### [facility] ([id number]) [address] [facility], [address] [place] [address] MCHC (RBC) [Mass/Vol] 32.8 g/dL Normal 32-36 [facility] Comment on above: Performed By: #### C GARDENIA, CMP #### [facility] ([id number]) [address] [place] [address] 23538 #### 2857-1, 49637-1, 99541-2, FEPR, 2275-4 #### [facility] ([id number]) [address] [facility], [address] [place] [address] MCV (RBC) [Entitic vol] 93 fL Normal 80-100 [facility] Comment on above: Performed By: #### C BCA, CMP #### [facility] ([id number]) [address] [place] [address] 16396 #### 2857-1, 39575-9, 55345-2, FEPR, 2275-4 #### [facility] ([id number]) [address] [facility], [address] [place] [address] Monocytes (Bld) [#/Vol] 0.8 10*3/uL Normal 0-0.9 [facility] Comment on above: Performed By: #### C BCA, CMP #### [facility] ([id number]) [address] [place] [address] 41692 #### 2857-1, 33103-6, 97670-8, FEPR, 2276-4 #### [facility] ([id number]) [address], [address] [place] [address] Monocytes/100 WBC (Bld) 13.5 % Normal [facility] Comment on above: Performed By: #### C BCA, CMP #### [facility] ([id number]) [address] [place] [address] 66888 #### 2857-1, 74354-9, 94565-6, FEPR, 2276-4 #### [facility] ([id number]) [address], [address] [place] [address] Neutrophils/100 WBC (Bld) 67.4 % Normal [facility] Comment on above: Performed By: #### C BCA, CMP #### [facility] ([id number]) [address] [place] [address] 63314 #### 2857-1, 81371-2, 87751-1, FEPR, 2276-4 #### [facility] ([id number]) [address], [address] [place] [address] Platelet mean volume (Bld) [Entitic vol] 7.4 fL Normal 7-12 [facility] Comment on above: Performed By: #### C BCA, CMP #### [facility] ([id number]) [address] [place] [address] 38948 #### 2857-1, 48888-1, 40601-0, FEPR, 2276-4 #### [facility] ([id number]) [address], [address] [place] [address] Platelets (Bld) [#/Vol] 284 10*3/uL Normal 150-450 [facility] Comment on above: Performed By: #### C BCA, CMP #### [facility] ([id number]) [address] [place] [address] 47975 #### 2857-1, 39967-4, 02757-4, FEPR, 2276-4 #### [facility] ([id number]) [address], [address] [place] [address] RBC COUNT 4.27 X10E12/L Normal 4.10-5.70 [facility] Comment on above: Performed By: #### C BCA, CMP #### [facility] ([id number]) [address] [place] [address] 24911 #### 2857-1, 03282-9, 94213-5, FEPR, 2276-4 #### [facility] ([id number]) [address], [address] [place] [address] WBC (Bld) [#/Vol] 5.9 10*3/uL Normal 4.0-11.0 [facility] Comment on above: Performed By: #### C BCA, CMP #### [facility] ([id number]) [address] [place] [address] 40456 #### 2857-1, 00176-9, 61346-3, FEPR, 2276-4 #### [facility] ([id number]) [address], [address] [place] [address] BRAIN WO CONTon CT BRAIN WO [...] Avila DO on 04/16/2024 2:16 PM Normal [facility] CT CERVICAL SPINE WO CONTon 04-16-2024 CT [...] Avila DO on 04/16/2024 2:24 PM Normal [facility] CT FACIAL BONES WO CONTon CT FACIAL [...] Morris Lau on 04/16/2024 2:30 PM Normal [facility] PROTIME AND INRon 04-16-2024 INR Coag (PPP) [Relative time] 2.1 {INR} High 0.8-1.1 [facility] Comment on above: Performed By: #### C GARDENIA, CMP #### [facility] ([id number]) [address] [place] [address] 54680 #### 2857-1, 77929-3, 61782-0, FEPR, 2276-4 #### [facility] ([id number]) [address], [address] [place] [address] PT Coag (PPP) [Time] 23.7 s High 9.8-13.2 [facility] Comment on above: Result Comment: NEW REFERENCE RANGE Performed By: #### C GARDENIA, CMP #### [facility] ([id number]) [address] [place] [address]104 #### 2857-1, 82793-0, 04838-8, FEPR, 2276-4 #### [facility] ([id number]) [address], [address] [place] [address] aPTT Coag (PPP) [Time]on aPTT Coag (Bld) [Time] 48 s High 26-37 [facility] Comment on above: Result Comment: NEW REFERENCE RANGE Performed By: #### C GARDENIA, CMP #### [facility] ([id number]) [address] [place] [address] 69169 #### 2857-1, 46077-0, 90006-4, FEPR, 2276-4 #### [facility] ([id number]) [address], [address] [place] [address] MR LUMBAR SPINE WO CONTon MR LUMBAR [...] Stephens MD on 04/01/2024 10:47 PM Normal [facility] XR HIP LT 2-3 VIEWS W [...] Jaramillo MD on 12/26/2023 10:07 AM Normal [facility] XR SPINE LUMBAR 2 OR 3 [...] Jaramillo MD on 12/26/2023 10:10 AM Normal [facility] CBC AND AUTO DIFFon 09-22-19 24 ABSOLUTE BASOPHIL 0.0 X10E9/L Normal 0.0-0.2 [facility] Comment on above: Performed By: #### C BCA, CMP, THYR #### [facility] ([id number]) [address] [facility] [place] [address] #### 2857-1, 56907-9, 56158-7 #### [facility] ([id number]) [address] [facility], [address] [place] [address] ABSOLUTE NEUTROPHIL 4.3 X10E9/L Normal 1.5-6.6 [facility] Comment on above: Performed By: #### C BCA, CMP, THYR #### [facility] ([id number]) [address] [place] [address] 68206 #### 2857-1, 52235-8, 38935-7 #### [facility] ([id number]) [address], [address] [place] [address] Basophils/100 WBC (Bld) 0.5 % Normal [facility] Comment on above: Performed By: #### C BCA, CMP, THYR #### [facility] ([id number]) [address] [place] [address] 15817 #### 2857-1, 56667-6, 33200-3 #### [facility] ([id number]) [address], [address] [place] [address] Eosinophils (Bld) [#/Vol] 0.0 10*3/uL Normal 0.0-0.4 [facility] Comment on above: Performed By: #### C BCA, CMP, THYR #### [facility] ([id number]) [address] [place] [address] 38654 #### 2857-1, 75055-3, 89752-6 #### [facility] ([id number]) [address], [address] [place] [address] Eosinophils/100 WBC (Bld) 0.7 % Normal [facility] Comment on above: Performed By: #### C BCA, CMP, THYR #### [facility] ([id number]) [address] [place] [address] 84337 #### 2857-1, 42942-1, 23821-5 #### [facility] ([id number]) [address], [address] [place] [address] Erythrocyte distribution width (RBC) [Ratio] 15.8 % High 11.5-15.0 [facility] Comment on above: Performed By: #### C BCA, CMP, THYR #### [facility] ([id number]) [address] [place] [address] 26632 #### 2857-1, 11055-3, 11346-4 #### [facility] ([id number]) [address], [address] [place] [address] Hematocrit (Bld) [Volume fraction] 39.8 % Normal 39-49 [facility] Comment on above: Performed By: #### C BCA, CMP, THYR #### [facility] ([id number]) [address] [place] [address] 66749 #### 2857-1, 88829-9, 89756-1 #### [facility] ([id number]) [address], [address] [place] [address] Hemoglobin (Bld) [Mass/Vol] 13.2 g/dL Normal 13.0-17.0 [facility] Comment on above: Performed By: #### C BCA, CMP, THYR #### [facility] ([id number]) [address] [place] [address] 95147 #### 2857-1, 35751-2, 10476-5 #### [facility] ([id number]) [address], [address] [place] [address] Lymphocytes (Bld) [#/Vol] 1.1 10*3/uL Normal 1.0-3.5 [facility] Comment on above: Performed By: #### C BCA, CMP, THYR #### [facility] ([id number]) [address] [place] [address] 97354 #### 2857-1, 92050-9, 67282-3 #### [facility] ([id number]) [address] [facility], [address] [place] [address] Lymphocytes/100 WBC (Bld) 17.7 % Normal [facility] Comment on above: Performed By: #### C BCA, CMP, THYR #### [facility] ([id number]) [address] [place] [address] 62305 #### 2857-1, 26936-3, 76062-1 #### [facility] ([id number]) [address] [place] [address], [facility] [address] [place] [address] MCH (RBC) [Entitic mass] 29.8 pg Normal 27-34 [facility] Comment on above: Performed By: #### C BCA, CMP, THYR #### [facility] ([id number]) [address] [place] [address] 28921 #### 2857-1, 43115-0, 81248-3 #### [facility] ([id number]) [address] [place] [address], [address] [address] MCHC (RBC) [Mass/Vol] 33.1 g/dL Normal 32-36 [facility] Comment on above: Performed By: #### C BCA, CMP, THYR #### [facility] ([id number]) [address] [place] [address] 20802 #### 2857-1, 88919-8, 52765-4 #### [facility] ([id number]) Formerly [facility], [facility] [address] MCV (RBC) [Entitic vol] 90 fL Normal 80-100 [facility] Comment on above: Performed By: #### C BCA, CMP, THYR #### [facility] ([id number]) [address] [place] [address] 67276 #### 2857-1, 77053-0, 89678-0 #### [facility] ([id number]) [address], [address] [place] [address] Monocytes (Bld) [#/Vol] 0.8 10*3/uL Normal 0-0.9 [facility] Comment on above: Performed By: #### C BCA, CMP, THYR #### [facility] ([id number]) [address] [place] [address] 49725 #### 2857-1, 63641-9, 88624-3 #### [facility] ([id number]) [address] [facility], [address] [place] [address] Monocytes/100 WBC (Bld) 12.8 % Normal [facility] Comment on above: Performed By: #### C BCA, CMP, THYR #### [facility] ([id number]) [address] [place] [address]676 #### 2857-1, 38244-9, 81503-2 #### [facility] ([id number]) [address] [facility] [place] [address] Neutrophils/100 WBC (Bld) 68.3 % Normal [facility] Comment on above: Performed By: #### C BCA, CMP, THYR #### [facility] ([id number]) [address] [place] [address] #### 2857-1, 02118-3, 14072-5 #### [facility] ([id number]) [address], [address] [place] [address] Platelet mean volume (Bld) [Entitic vol] 7.8 fL Normal 7-12 [facility] Comment on above: Performed By: #### C BCA, CMP, THYR #### [facility] ([id number]) [address] [place] [address] #### 2857-1, 82365-3, 09767-6 #### [facility] ([id number]) [address] [place] [address] Platelets (Bld) [#/Vol] 259 10*3/uL Normal 150-450 [facility] Comment on above: Performed By: #### C BCA, CMP, THYR #### [facility] ([id number]) [address] [place] [address] 0[address]97 #### 2857-1, 23901-7, 37570-3 #### [facility] ([id number]) [address] [facility] [place] [address] RBC COUNT 4.42 X10E12/L Normal 4.10-5.70 [facility] Comment on above: Performed By: #### C BCA, CMP, THYR #### [facility] ([id number]) [address] [place] [address] 02352 #### 2857-1, 78329-9, 15748-1 #### [facility] ([id number]) [address] [facility] [place] [address] WBC (Bld) [#/Vol] 6.2 10*3/uL Normal 4.0-11.0 [facility] Comment on above: Performed By: #### C BCA, CMP, THYR #### [facility] ([id number]) [address] [place] [address] 39812 #### 2857-1, 40807-2, 78158-9 #### [facility] ([id number]) [address], [address] [place] [address] COMPREHENSIVE METABOLIC PANE Alex 09-22-2023 Albumin [Mass/Vol] 4.2 g/dL Normal 3.2-5.3 [facility] Comment on above: Performed By: #### C BCA, CMP #### [facility] ([id number]) [address] [place] [address] 8[address]28 #### 2857-1, 40416-0, 62403-5, FEPR, 2276-4 #### [facility] ([id number]) [address], [address] [place] [address] ALP [Catalytic activity/Vol] 41 U/L Normal 39-130 [facility] Comment on above: Performed By: #### C BCA, CMP #### [facility] ([id number]) [address] [place] [address]129 #### 2857-1, 76569-6, 53439-0, FEPR, 2276-4 #### [facility] ([id number]) [address] [facility] [place] [address] ALT [Catalytic activity/Vol] 17 U/L Normal 0-40 [facility] Comment on above: Performed By: #### C BCA, CMP #### [facility] ([id number]) [address] [place] [address]46 #### 2857-1, 50217-7, 44177-5, FEPR, 2276-4 #### [facility] ([id number]) [address] [place] [address] Anion gap [Moles/Vol] 6 mmol/L Normal 5-15 [facility] Comment on above: Performed By: #### C BCA, CMP #### [facility] ([id number]) [address] [place] [address] #### 2857-1, 63953-8, 70835-1, FEPR, 2276-4 #### [facility] ([id number]) [address] [facility] [place] [address] AST [Catalytic activity/Vol] 20 U/L Normal 0-41 [facility] Comment on above: Performed By: #### C BCA, CMP #### [facility] ([id number]) [address] [place] [address]487 #### 2857-1, 96743-5, 92750-5, FEPR, 2276-4 #### [facility] ([id number]) [address], [address] [place] [address] Bilirubin [Mass/Vol] 0.4 mg/dL Normal 0.3-1.2 [facility] Comment on above: Performed By: #### C BCA, CMP #### [facility] ([id number]) [address] [place] [address] #### 2857-1, 42041-5, 42752-9, FEPR, 2276-4 #### [facility] ([id number]) [address] [facility] [place] [address] Calcium [Mass/Vol] 9.3 mg/dL Normal 8.5-10.5 [facility] Comment on above: Performed By: #### C BCA, CMP #### [facility] ([id number]) [address] [place] [address] 24758 #### 2857-1, 54141-4, 61152-0, FEPR, 2276-4 #### [facility] ([id number]) [address] [facility], [address] [place] [address] Chloride [Moles/Vol] 103 mmol/L Normal 98-109 [facility] Comment on above: Performed By: #### C BCA, CMP #### [facility] ([id number]) [address] [place] [address] 24702 #### 2857-1, 95873-6, 66718-8, FEPR, 2276-4 #### [facility] ([id number]) [address] [place] [address] CO2 [Moles/Vol] 27 mmol/L Normal 22-32 [facility] Comment on above: Performed By: #### C BCA, CMP #### [facility] ([id number]) [address] [place] [address] 16438 #### 2857-1, 97411-7, 94430-3, FEPR, 2276-4 #### [facility] ([id number]) [address] [place] [address] Creatinine [Mass/Vol] 1.12 mg/dL Normal 0.70-1.20 [facility] Comment on above: Result Comment: METH OD TRACEABLE TO IDMS STANDARD Performed By: #### C GARDENIA, CMP #### [facility] ([id number]) [address] [place] [address] #### 2857-1, 79990-3, 16236-7, FEPR, 2276-4 #### [facility] ([id number]) [address], [address] [place] [address] GFR/1.73 sq M.predicted among non-blacks MDRD (S/P/Bld) [Vol rate/Area] 71 mL/min/{1.73_m2} Normal >59 [facility] Comment on above: Result Comment: Reported eGFR is based on the CKD-EPI 1 equation that does not use a race coefficient. Performed By: #### C BCA, CMP #### [facility] ([id number]) [address] [place] [address] #### 2857-1, 25186-8, 25105-5, FEPR, 2276-4 #### [facility] ([id number]) [address], [address] [place] [address] Glucose [Mass/Vol] 178 mg/dL High 65-99 [facility] Comment on above: Performed By: #### C BCA, CMP #### [facility] ([id number]) [address] [place] [address] #### 2857-1, 34403-8, 04158-8, FEPR, 2276-4 #### [facility] ([id number]) [address], [address] [place] [address] Potassium [Moles/Vol] 4.6 mmol/L Normal 3.5-5.0 [facility] Comment on above: Performed By: #### C BCA, CMP #### [facility] ([id number]) [address] [place] [address] #### 2857-1, 01669-8, 33977-2, FEPR, 2276-4 #### [facility] ([id number]) [address], [address] [place] [address] Protein [Mass/Vol] 7.8 g/dL Normal 6.0-8.0 [facility] Comment on above: Performed By: #### C BCA, CMP #### [facility] ([id number]) [address] [place] [address] #### 2857-1, 62035-0, 73716-5, FEPR, 2276-4 #### [facility] ([id number]) [address], [address] [place] [address] Sodium [Moles/Vol] 136 mmol/L Normal 134-146 [facility] Comment on above: Performed By: #### C BCA, CMP #### [facility] ([id number]) [address] [place] [address] #### 2857-1, 93468-5, 48448-9, FEPR, 2276-4 #### [facility] ([id number]) [address], [address] [place] [address] Urea nitrogen [Mass/Vol] 18 mg/dL Normal 5-27 [facility] Comment on above: Performed By: #### C BCA, CMP #### [facility] ([id number]) [address] [place] [address] #### 2857-1, 72274-4, 04166-6, FEPR, 2276-4 #### [facility] ([id number]) [address] [place] [address], [address] [place] [address] HCV Ab IA Qlon 09-22-2023 ANTI HCV W/PCR REFLX Non-Reactive Normal NRCT [facility] Comment on above: Result Comment: If recent infection suspected, recommend repeat testing (>2 months). Plnymr-fv-hueoeq ratio is <0.80. Performed By: #### C BCA, CMP #### [facility] ([id number]) [address] [place] [address] #### 2857-1, 55227-8, 44380-7, FEPR, 2276-4 #### [facility] ([id number]) [address] [place] [address], [address] [place] [address] HGB A1C (GLYCO-HGB)on 2023 Glucose [Mass/Vol] 180 mg/dL Normal [facility] Comment on above: Performed By: #### C BCA, CMP #### [facility] ([id number]) [address] [place] [address] #### 2857-1, 82761-1, 69843-3, FEPR, 2276-4 #### [facility] ([id number]) [address] [place] [address], [address] [place] [address] HbA1c (Bld) [Mass fraction] 7.9 % High 4.4-5.6 [facility] Comment on above: Result Comment: NOTE ADA Guidelines Result HgbA1c Normal : less than 5.7 % Prediabetes : 5.7 % to 6.4 % Diabetes : > 6.4 % Use with caution in patients with abnormal hemoglobin variants as the half-life of red blood cells and in vivo glycation rates are affected. Performed By: #### C BCA, CMP #### [facility] ([id number]) [address] [place] [address] 79231 #### 2857-1, 91424-3, 03792-6, FEPR, 2276-4 #### [facility] ([id number]) [address] [facility], [address] [address] Prostate specific Ag [Mass/V ol]on 09-22-2023 PSA SCREEN 0.89 ng/mL Normal 0.00-4.00 [facility] Comment on above: Result Comment: The method used for this test is [employer] DXI chemiluminescent immunoassay. Values obtained by different assay methods cannot be used interchangeably. Performed By: #### C GARDENIA, CMP #### [facility] ([id number]) [address] [place] [address] 78018 #### 2857-1, 81144-2, 92066-5, FEPR, 2276-4 #### [facility] ([id number]) [address] [facility], [address] [place] [address] THYROID PROFILEon 09-22-2023 Free T4 [Mass/Vol] 1.03 ng/dL Normal 0.61-1.60 [facility] Comment on above: Performed By: #### C BCA, CMP #### [facility] ([id number]) [address] [place] [address] 10407 #### 2857-1, 05032-1, 66145-5, FEPR, 2276-4 #### [facility] ([id number]) [address] [facility], [address] [place] [address] TSH 4.47 uIU/mL Normal 0.49-4.67 [facility] Comment on above: Performed By: #### C GARDENIA, CMP #### [facility] ([id number]) [address] [place] [address] 20378 #### 2857-1, 79648-4, 61596-0, FEPR, 2276-4 #### [facility] ([id number]) [address] [facility], [address] [place] [address] Vitamin D+Metabolites [Mass/ Vol]on 09-22-2023 VITAMIN D 25 HYD TOT 23.7 ng/mL Low 30-100 [facility] Comment on above: Result Comment: Vitamin D status 25 [place] Vitamin D Deficiency <20 ng/mL Insufficiency 20-29 ng/mL Sufficiency 30-100 ng/mL Toxicity >100 ng/mL NOTE: A pediatric reference range has not been established by the stereoptic projection topographer of this kit. The [place] [employer] recommends a Vitamin D level of = or >20ng/mL in infants and children. Performed By: #### C GARDENIA, CMP #### [facility] ([id number]) [address] [place] [address] 96004 #### 2857-1, 85021-6, 91445-4, FEPR, 6-4 #### [facility] ([id number]) [address] [facility], [address] [place] [address] CBC AND AUTO DIFFon 08-02-19 24 ABSOLUTE BASOPHIL 0.0 X10E9/L Normal 0.0-0.2 [facility] Comment on above: Performed By: #### C BCA, CMP #### [facility] ([id number]) [address] [place] [address] 04994 #### 2857-1, 41292-9, 75993-6, FEPR, 2276-4 #### [facility] ([id number]) [address], [address] [place] [address] ABSOLUTE NEUTROPHIL 4.4 X10E9/L Normal 1.5-6.6 [facility] Comment on above: Performed By: #### C BCA, CMP #### [facility] ([id number]) [address] [place] [address] 40468 #### 2857-1, 47257-5, 13511-0, FEPR, 2276-4 #### [facility] ([id number]) [address] [facility], [address] [place] [address] Basophils/100 WBC (Bld) 0.5 % Normal [facility] Comment on above: Performed By: #### C BCA, CMP #### [facility] ([id number]) [address] [place] [address] #### 2857-1, 50422-6, 11957-1, FEPR, 2276-4 #### [facility] ([id number]) [address] [facility], [address] [place] [address] Eosinophils (Bld) [#/Vol] 0.1 10*3/uL Normal 0.0-0.4 [facility] Comment on above: Performed By: #### C BCA, CMP #### [facility] ([id number]) [address] [place] [address] 26488 #### 2857-1, 18033-1, 42756-4, FEPR, 2276-4 #### [facility] ([id number]) [address], [address] [place] [address] Eosinophils/100 WBC (Bld) 0.9 % Normal [facility] Comment on above: Performed By: #### C BCA, CMP #### [facility] ([id number]) [address] [place] [address] #### 2857-1, 74168-9, 27152-1, FEPR, 2276-4 #### [facility] ([id number]) [address], [address] [place] [address] Erythrocyte distribution width (RBC) [Ratio] 15.7 % High 11.5-15.0 [facility] Comment on above: Performed By: #### C BCA, CMP #### [facility] ([id number]) [address] [place] [address] 96564 #### 2857-1, 97247-1, 34761-9, FEPR, 2276-4 #### [facility] ([id number]) [address], [address] [place] [address] Hematocrit (Bld) [Volume fraction] 38.3 % Low 39-49 [facility] Comment on above: Performed By: #### C BCA, CMP #### [facility] ([id number]) [address] [place] [address] 01164 #### 2857-1, 76437-2, 38145-7, FEPR, 2276-4 #### [facility] ([id number]) [address], [address] [place] [address] Hemoglobin (Bld) [Mass/Vol] 12.5 g/dL Low 13.0-17.0 [facility] Comment on above: Performed By: #### C BCA, CMP #### [facility] ([id number]) [address] [place] [address] 45273 #### 2857-1, 86556-1, 42216-2, FEPR, 2276-4 #### [facility] ([id number]) [address], [address] [place] [address] Lymphocytes (Bld) [#/Vol] 1.2 10*3/uL Normal 1.0-3.5 [facility] Comment on above: Performed By: #### C BCA, CMP #### [facility] ([id number]) [address] [place] [address] #### 2857-1, 13799-1, 54221-9, FEPR, 2276-4 #### [facility] ([id number]) [address], [address] [place] [address] Lymphocytes/100 WBC (Bld) 18.4 % Normal [facility] Comment on above: Performed By: #### C BCA, CMP #### [facility] ([id number]) [address] [place] [address] #### 2857-1, 86072-7, 70492-9, FEPR, 2276-4 #### [facility] ([id number]) [address] [facility], [address] [place] [address] MCH (RBC) [Entitic mass] 29.1 pg Normal 27-34 [facility] Comment on above: Performed By: #### C BCA, CMP #### [facility] ([id number]) [address] [place] [address] #### 2857-1, 65066-7, 83243-3, FEPR, 2276-4 #### [facility] ([id number]) [address] [facility], [address] [place] [address] MCHC (RBC) [Mass/Vol] 32.7 g/dL Normal 32-36 [facility] Comment on above: Performed By: #### C BCA, CMP #### [facility] ([id number]) [address] [place] [address]242 #### 2857-1, 33129-5, 91641-4, FEPR, 2276-4 #### [facility] ([id number]) [address], [address] [place] [address] MCV (RBC) [Entitic vol] 89 fL Normal 80-100 [facility] Comment on above: Performed By: #### C BCA, CMP #### [facility] ([id number]) [address] [place] [address]01 #### 2857-1, 22647-4, 21623-0, FEPR, 2276-4 #### [facility] ([id number]) [address], [address] [place] [address] Monocytes (Bld) [#/Vol] 1.0 10*3/uL High 0-0.9 [facility] Comment on above: Performed By: #### C BCA, CMP #### [facility] ([id number]) [address] [place] [address]19 #### 2857-1, 43488-6, 22756-9, FEPR, 2276-4 #### [facility] ([id number]) [address], [address] [place] [address] Monocytes/100 WBC (Bld) 14.3 % Normal [facility] Comment on above: Performed By: #### C BCA, CMP #### [facility] ([id number]) [address] [place] [address]77 #### 2857-1, 68982-9, 94695-8, FEPR, 2276-4 #### [facility] ([id number]) [address], [address] [place] [address] Neutrophils/100 WBC (Bld) 65.9 % Normal [facility] Comment on above: Performed By: #### C BCA, CMP #### [facility] ([id number]) [address] [place] [address] #### 2857-1, 41551-9, 70331-9, FEPR, 2276-4 #### [facility] ([id number]) [address], [address] [place] [address] Platelet mean volume (Bld) [Entitic vol] 8.3 fL Normal 7-12 [facility] Comment on above: Performed By: #### C BCA, CMP #### [facility] ([id number]) [address] [place] [address] 79299 #### 2857-1, 81976-1, 01472-5, FEPR, 2276-4 #### [facility] ([id number]) [address] [facility], [address] [place] [address] Platelets (Bld) [#/Vol] 271 10*3/uL Normal 150-450 [facility] Comment on above: Performed By: #### C BCA, CMP #### [facility] ([id number]) [address] [place] [address]290 #### 2857-1, 36446-8, 52914-9, FEPR, 2276-4 #### [facility] ([id number]) [address], [address] [place] [address] RBC COUNT 4.31 X10E12/L Normal 4.10-5.70 [facility] Comment on above: Performed By: #### C BCA, CMP #### [facility] ([id number]) [address] [place] [address] 22567 #### 2857-1, 77221-5, 47731-4, FEPR, 2276-4 #### [facility] ([id number]) [address], [address] [place] [address] WBC (Bld) [#/Vol] 6.7 10*3/uL Normal 4.0-11.0 [facility] Comment on above: Performed By: #### C BCA, CMP #### [facility] ([id number]) [address] [place] [address] 11430 #### 2857-1, 17717-3, 98818-8, FEPR, 2276-4 #### [facility] ([id number]) [address], [address] [place] [address] COMPREHENSIVE METABOLIC PANE Alex 08-02-2023 Albumin [Mass/Vol] 3.8 g/dL Normal 3.2-5.3 [facility] Comment on above: Performed By: #### C BCA, CMP #### [facility] ([id number]) [address] [place] [address] 12353 #### 2857-1, 75049-3, 32854-4, FEPR, 2276-4 #### [facility] ([id number]) [address] [facility], [address] [place] [address] ALP [Catalytic activity/Vol] 48 U/L Normal 39-130 [facility] Comment on above: Performed By: #### C BCA, CMP #### [facility] ([id number]) [address] [place] [address] 75055 #### 2857-1, 66910-2, 39873-8, FEPR, 2276-4 #### [facility] ([id number]) [address], [address] [place] [address] ALT [Catalytic activity/Vol] 18 U/L Normal 0-40 [facility] Comment on above: Performed By: #### C BCA, CMP #### [facility] ([id number]) [address] [place] [address] 67725 #### 2857-1, 47280-1, 78248-6, FEPR, 2276-4 #### [facility] ([id number]) [address], [address] [place] [address] Anion gap [Moles/Vol] 9 mmol/L Normal 5-15 [facility] Comment on above: Performed By: #### C BCA, CMP #### [facility] ([id number]) [address] [place] [address] 19715 #### 2857-1, 21859-5, 92564-2, FEPR, 2276-4 #### [facility] ([id number]) [address], [address] [place] [address] AST [Catalytic activity/Vol] 24 U/L Normal 0-41 [facility] Comment on above: Performed By: #### C BCA, CMP #### [facility] ([id number]) [address] [place] [address] 41631 #### 2857-1, 59209-1, 67567-5, FEPR, 2276-4 #### [facility] ([id number]) [address] [facility], [address] [place] [address] Bilirubin [Mass/Vol] 0.6 mg/dL Normal 0.3-1.2 [facility] Comment on above: Performed By: #### C BCA, CMP #### [facility] ([id number]) [address] [place] [address] 19564 #### 2857-1, 13864-8, 62442-3, FEPR, 2276-4 #### [facility] ([id number]) [address] [facility], [address] [place] [address] Calcium [Mass/Vol] 9.0 mg/dL Normal 8.5-10.5 [facility] Comment on above: Performed By: #### C BCA, CMP #### [facility] ([id number]) [address] [place] [address] 42331 #### 2857-1, 31538-6, 13516-4, FEPR, 2276-4 #### [facility] ([id number]) [address], [address] [place] [address] Chloride [Moles/Vol] 98 mmol/L Normal 98-109 [facility] Comment on above: Performed By: #### C BCA, CMP #### [facility] ([id number]) [address] [place] [address] 31048 #### 2857-1, 92750-0, 58204-7, FEPR, 2276-4 #### [facility] ([id number]) [address], [address] [place] [address] CO2 [Moles/Vol] 28 mmol/L Normal 22-32 [facility] Comment on above: Performed By: #### C BCA, CMP #### [facility] ([id number]) [address] [place] [address] 85000 #### 2857-1, 67939-2, 84391-4, FEPR, 2276-4 #### [facility] ([id number]) [address], [address] [place] [address] Creatinine [Mass/Vol] 0.93 mg/dL Normal 0.70-1.20 [facility] Comment on above: Result Comment: METH OD TRACEABLE TO IDMS STANDARD Performed By: #### C BCA, CMP #### [facility] ([id number]) [address] [place] [address] 15708 #### 2857-1, 38094-7, 44525-4, FEPR, 2276-4 #### [facility] ([id number]) [address], [address] [place] [address] GFR/1.73 sq M.predicted among non-blacks MDRD (S/P/Bld) [Vol rate/Area] 89 mL/min/{1.73_m2} Normal >59 [facility] Comment on above: Result Comment: Reported eGFR is based on the CKD-EPI 2020 equation that does not use a race coefficient. Performed By: #### C BCA, CMP #### [facility] ([id number]) [address] [place] [address] 10663 #### 2857-1, 70219-5, 92989-0, FEPR, 2276-4 #### [facility] ([id number]) [address], [address] [place] [address] Glucose [Mass/Vol] 193 mg/dL High 65-99 [facility] Comment on above: Performed By: #### C BCA, CMP #### [facility] ([id number]) [address] [place] [address] 13360 #### 2857-1, 60529-3, 45774-9, FEPR, 2276-4 #### [facility] ([id number]) [address] [facility], [address] [place] [address] Potassium [Moles/Vol] 4.8 mmol/L Normal 3.5-5.0 [facility] Comment on above: Performed By: #### C BCA, CMP #### [facility] ([id number]) [address] [place] [address] 05561 #### 2857-1, 58438-6, 53318-5, FEPR, 2276-4 #### [facility] ([id number]) [address], [address] [place] [address] Protein [Mass/Vol] 7.8 g/dL Normal 6.0-8.0 [facility] Comment on above: Performed By: #### C BCA, CMP #### [facility] ([id number]) [address] [place] [address] 94708 #### 2857-1, 98805-4, 51672-6, FEPR, 2276-4 #### [facility] ([id number]) [address], [address] [place] [address] Sodium [Moles/Vol] 135 mmol/L Normal 134-146 [facility] Comment on above: Performed By: #### C GARDENIA, CMP #### [facility] ([id number]) [address] [place] [address] 08344 #### 2857-1, 14008-2, 73279-1, FEPR, 2276-4 #### [facility] ([id number]) [address] [facility], [address] [place] [address] Urea nitrogen [Mass/Vol] 20 mg/dL Normal 5-27 [facility] Comment on above: Performed By: #### C GARDENIA, CMP #### [facility] ([id number]) [address] [place] [address] 32814 #### 2857-1, 57867-4, 69300-8, FEPR, 2276-4 #### [facility] ([id number]) [address], [address] [place] [address] FERRITINon 08-02-2023 Ferritin [Mass/Vol] 29 ng/mL Normal 24-336 [facility] Comment on above: Performed By: #### C GARDENIA, CMP #### [facility] ([id number]) [address] [place] [address] 84140 #### 2857-1, 70350-4, 67227-3, FEPR, 2276-4 #### [facility] ([id number]) [address], [address] [place] [address] HCV Ab IA Qlon 08-02-2023 ANTI HCV W/PCR REFLX Non-Reactive Normal NRCT [facility] Comment on above: Result Comment: If recent infection suspected, recommend repeat testing (>2 months). Pqjxsl-eq-ghrcfc ratio is <0.80. Performed By: #### C BCA, CMP #### [facility] ([id number]) [address] [place] [address] 88186 #### 2857-1, 64938-2, 34592-2, FEPR, 2276-4 #### [facility] ([id number]) [address] [facility], [address] [place] [address] HGB A1C (GLYCO-HGB)on 2023 Glucose [Mass/Vol] 189 mg/dL Normal [facility] Comment on above: Performed By: #### C BCA, CMP #### [facility] ([id number]) [address] [place] [address] 36534 #### 2857-1, 43154-5, 73094-6, FEPR, 2276-4 #### [facility] ([id number]) [facility], [address] [address] HbA1c (Bld) [Mass fraction] 8.2 % High 4.4-5.6 [facility] Comment on above: Result Comment: NOTE ADA Guidelines Result HgbA1c Normal : less than 5.7 % Prediabetes : 5.7 % to 6.4 % Diabetes : > 6.4 % Use with caution in patients with abnormal hemoglobin variants as the half-life of red blood cells and in vivo glycation rates are affected. Performed By: #### C BCA, CMP #### [facility] ([id number]) [address] [place] [address] 99137 #### 2857-1, 70019-5, 14207-9, FEPR, 2276-4 #### [facility] ([id number]) [address] [facility], [address] [place] [address] IRON PROFILEon 08-02-2023 Iron [Mass/Vol] 47 ug/dL Low 50-212 [facility] Comment on above: Performed By: #### C BCA, CMP #### [facility] ([id number]) [address] [place] [address] 23639 #### 2857-1, 73374-9, 91984-2, FEPR, 2276-4 #### [facility] ([id number]) [address] [facility], [address] [place] [address] IRON BINDING 379 ug/dL Normal 250-425 [facility] Comment on above: Performed By: #### C BCA, CMP #### [facility] ([id number]) [address] [place] [address] 97667 #### 2857-1, 37265-5, 65175-3, FEPR, 2276-4 #### [facility] ([id number]) [address] [facility], [address] [place] [address] IRON SATURATION 12 % SATURATION Low 20-50 [facility] Comment on above: Performed By: #### C BCA, CMP #### [facility] ([id number]) [address] [place] [address] 19911 #### 2857-1, 37509-9, 89886-5, FEPR, 2276-4 #### [facility] ([id number]) [address] [facility], [address] [place] [address] Prostate specific Ag [Mass/V ol]on 08-02-2023 PSA SCREEN 0.52 ng/mL Normal 0.00-4.00 [facility] Comment on above: Result Comment: The method used for this test is [place] DXI chemiluminescent immunoassay. Values obtained by different assay methods cannot be used interchangeably. Performed By: #### C BCA, CMP #### [facility] ([id number]) [address] [place] [address] 40516 #### 2857-1, 12112-9, 66688-3, FEPR, 2276-4 #### [facility] ([id number]) [address], [address] [place] [address] Vitamin D+Metabolites [Mass/ Vol]on 08-02-2023 VITAMIN D 25 HYD TOT 19.2 ng/mL Low 30-100 [facility] Comment on above: Result Comment: Vitamin D status 25 [place] Vitamin D Deficiency <20 ng/mL Insufficiency 20-29 ng/mL Sufficiency 30-100 ng/mL Toxicity >100 ng/mL NOTE: A pediatric reference range has not been established by the stereoptic projection topographer of this kit. The [place] [employer] recommends a Vitamin D level of = or >20ng/mL in infants and children. Performed By: #### C GARDENIA, CMP #### [facility] ([id number]) [address] [place] [address], [place] [address] #### 2857-1, 01705-0, 92830-8, FEPR, 2276-4 #### [facility] ([id number]) [address], [address] [place] [address] XR SPINE CERVICAL 3 VWS OR L [...] Ash MD on 06/29/2023 3:36 PM Normal [facility] Vital Signs Date Time Vital Sign Value Performing Clinician Facility 05-23-2024 11:55-0500 Diastolic blood pressure 73 mm[Hg] Bebeto LEON Work Phone: [facility] 05-23-2024 11:55-0500 Heart rate 71 /min Bebeto Nienberg PA Work Phone: [employer] 05-23-2024 11:55-0500 Respiratory rate 20 /min [facility]ienberg [facility] 05-23-2024 11:55-0500 SaO2% (BldA) [Mass fraction] 100 % Bebeto Nienberg PA [facility] 05-23-2024 11:55-0500 Systolic blood pressure 145 mm[Hg] Bebeto Nienberg PA [facility] Phone[facility] 04-09-2024 10:12-0400 Body height 175.3 cm Bebeto Nienberg PA Work Phone[facility] Comment on above: stated 04-09-2024 10:12-0400 Body mass index (BMI) [Ratio] 27.62 kg/m2 Bebeto Nienberg PA [facility] 04-09-2024 10:12-0400 Body weight 84.82 kg Bebeto Nienberg PA Work Phone: [employer] 04-09-2024 10:12-0400 Diastolic blood pressure 97 mm[Hg] Bebeto Nienberg PA Work Phone: [employer] 04-09-2024 10:12-0400 Heart rate 63 /min Bebeto Nienberg PA [facility] 04-09-2024 10:12-0400 Respiratory rate 16 /min Bebeto Nienberg PA Work Phone: [employer] 04-09-2024 10:12-0400 SaO2% (BldA) [Mass fraction] 100 % Bebeto Nienberg PA [facility] 04-09-2024 10:12-0400 Systolic blood pressure 141 mm[Hg] Bebeto Nienberg PA Work Phone[facility] Encounters Encounter Date Encounter Type Care Provider Facility Start: 05-23-2024 End: 05-23-2024 Refill Bebeto Espino [employer] Work Phone: [facility] Comment on above: Med Refill Start: 05-23-2024 End: 05-23-2024 Office outpatient visit 15 minutes Bebeto LEON Work Phone: [facility] Comment on above: Lumbosacral 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 (Primary Dx) Start: 05-23-2024 End: 05-23-2024 ambulatory [facility] Start: 05-09-2024 End: 05-09-[address] [facility] Start: 05-03-2024 End: 05-03-2024 ambulatory [facility] Start: 04-16-2024 End: 04-16-2024 Emergency department patient visit [facility] Start: 04-09-2024 End: 04-09-2024 Office outpatient visit 25 minutes Bebeto LEON Work Phone: [facility] Comment on above: Lumbosacral 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 (Primary Dx) Start: 04-09-2024 End: 04-09-2024 [facility] Start: 04-01-2024 End: 04-01-2024 ambulatory [facility] Start: 02-22-2024 End: 02-22-2024 ambulatory [facility] Start: 01-09-2024 End: 01-09-2024 ambulatory [facility] Start: 12-26-2023 End: 12-27-2023 Emergency department patient visit DIVYA GONZALES [facility] Start: 09-22-2023 End: 09-22-[address] [facility] Start: 08-02-2023 End: 08-02-2023 [facility] Start: 06-29-2023 End: 06-29-[address] [facility] Start: 06-29-2023 End: 06-30-[address] [facility] Start: 11-14-2022 End: 11-15-2022 ambulatory [facility] Facility:[facility] Start: 10-24-2022 End: 10-25-2022 [facility]ulatory [facility] [facility] Start: 10-03-2022 End: 10-04-2022 ambulatory [facility] Facility:H1 Start: 09-12-2022 End: 09-13-2022 ambulatory [facility] Facility:H1 Start: 08-23-2022 End: 08-24-2022 ambulatory [facility] Facility:H1 Start: 08-16-2022 End: 08-17-2022 ambulatory [facility] Facility:H1 Start: 08-09-2022 End: 08-10-2022 ambulatory [facility] Facility:H1 Procedures Date Procedure Procedure Detail Performing Clinician Start: 04-06-2023 Microalbumin [Mass/v olume] in Urine by Test strip Bebeto LEON Work Phone: Plan of Treatment Date Care Activity Detail Author Start: 05-23-2025 Tobacco Screening Tobacco Screening [facility] Start: 04-16-2025 Adult BMI Screening Adult BMI Screen ing [facility] Start: 04-09-2025 Adult BMI Screening Adult BMI Screen ing [facility] Start: 04-09-2025 Tobacco Screening Tobacco Screening [facility] Start: 07-04-2024 End: 07-04-2024 Patient encounter procedure 07/04/2024 10:00 AM EST Office Visit [facility] [address] [place] [phone] Bebeto Haq PA [address] [place] [address] [facility] Start: 05-23-2024 End: 11-21-2024 Patient encounter procedure 05/23/2024 12:45 PM EST Office Visit [facility] [address] [place] [phone] Bebeto Haq, EDWARD [address] [place] [address] [facility] Start: 05-03-2024 End: 05-03-2024 Admission to same day surgery center 05/03/2024 8:58 AM EDT - 05/03/2024 9:06 AM EDT Surgery [facility] [address] [place] [phone] Nay Hyde MD [address] [place], [place] [id number] INJECTION BLOCK NERVE MEDIAL BRANCH: bilat L45 51 [41478 (CPT )] [facility] Comment on above: INJECTION BLOCK NERV E MEDIAL BRANCH: bilat L45 51 [[id number] (CPT )] Start: 05-03-2024 End: 05-03-2024 Njx dx/ther agt pvrt facet jt lmbr/sac 1 level INJECTION BLOCK NERVE MEDIAL BRANCH Lumbosacral spondylosis without myelopathy 05/03/2024 8:58 AM EDT [facility] Start: 05-03-2024 Subsequent hospital visit by physician 05/03/2024 8:58 AM EDT Hospital Encounter [facility] [address] [place] [phone] Nay Hyde MD [address] [place], [place] [id number] [facility] Start: 04-06-2024 Urine screening for protein Urine Microalbumin [facility] Start: 03-03-2024 COVID-19 Vaccine (2022- season) COVID-19 Vaccine ( season) [facility] Start: 03-03-2024 COVID-19 Vaccine ( season) COVID-19 Vaccine ( season) [facility] Start: 03-03-2024 Influenza vaccination Influenza Vacc ine [facility] Start: 2019 Abdominal aortic aneurysm screening Abdominal Aortic Aneurysm (AAA) Screen [facility] Start: 2019 Fall Risk Screening Fall Risk Screen ing [facility] Start: 2004 Administration of varicella zoster vaccine Zoster (Shingles) Vaccine (1 of 2) [facility] Start: 1973 DTaP,Tdap and Td Vaccines (1 - Tdap) DTaP,Tdap and Td Vaccines (1 - Tdap) [facility] Start: 1972 Adult BMI Follow Up Plan Adult BMI Follow Up Plan [facility] Start: 1972 Diabetic foot examination Diabetic Foot Exam [facility] Start: 1966 Depression Screening Depression Scre ening [facility] Start: 1954 Glaucoma screening Diabetic Op hthalmology Exam [facility] Start: 1954 Medicare Annual Well ness Visit Medicare Annual Wellness Visit [facility] Immunizations Immunization Date Immunization Notes Care Provider Miles velasquez 04-11-2023 influenza virus vaccine, unspecified formulation Bebeto LEON Work Phone: [facility] 04-19-2021 influenza, injectabl e, quadrivalent, preservative free Bebeto LEON Work Phone: [facility] 05-18-2018 Influenza, injectabl e, [place] Canine Kidney, preservative free, quadrivalent Bebeto LEON Work Phone: [facility] 05-10-2017 influenza, seasonal, injectable, preservative free Bebeto LEON Work Phone: [facility] 03-25-2015 influenza, seasonal, injectable, preservative free Bebeto LEON Work Phone: [facility] 10-14-2014 influenza, seasonal, injectable Bebeto LEON Work Phone: [facility] Payers Date Payer Category Payer Medicaid [id number] 1992 Medicare [id number] 1959 Medicaid [id number] 1959 Medicare [id number] 1955 Unknown [id number] 2.16.84 0.1.603103.3.579.2.593 1954 Unknown [id number] 2.16.84 0.1.317388.3.579.2.593 1954 Unknown [id number] 2.16.84 0.1.023819.3.579.2.593 1954 Unknown [id number] 2.16.84 0.1.158869.3.579.2.593 1954 Unknown [id number] 2.16.84 0.1.368303.3.579.2.593 1954 Unknown [id number] 2.16.84 0.1.304420.3.579.2.593 1954 Unknown [id number] 2.16.84 0.1.774212.3.579.2.593 1954 Unknown [id number] 2.16.8 40.1.600495.3.579.2.1286 1954 Unknown [id number] 2.16.8 40.1.774619.3.579.2.1286 1954 Unknown [id number] 2.16.8 40.1.783891.3.579.2.1286 1954 Unknown [id number] 2.16.8 40.1.320140.3.579.2.1286 1954 Unknown [id number] 2.16.8 40.1.080276.3.579.2.1286 1954 Unknown [id number] 2.16.8 40.1.966885.3.579.2.1285 1954 Unknown [id number] 2.16.8 40.1.407914.3.579.2.128 1954 Unknown [id number] 2.16.8 40.1.302594.3.579.2.128 1954 Unknown [id number] 2.16.8 40.1.493310.3.579.2.1285 1954 Unknown [id number] 2.16.8 40.1.417139.3.579.2.128 1954 Unknown [id number] 2.16.8 40.1.611853.3.579.2.1285 1954 Unknown [id number] 2.16.8 40.1.583227.3.579.2.1285 1954 Unknown [id number] 2.16.8 40.1.188700.3.579.2.1285 1954 Unknown [id number] 2.16.8 40.1.065775.3.579.2.1285 1954 Unknown [id number] 2.16.84 0.1.141832.3.579.2.1285 1954 Unknown [id number] 2.16.84 0.1.469781.3.579.2.1286 Social History Date Type Detail Facility Start: 01-09-2024 Tobacco smoking stat [facility] Ex-smoker [facility] History of tobacco use Current smoker [facility] History of tobacco use Cigarette Smoker P [facility] Start: 01-09-2024 Tobacco use and exposure Smokeless tobacco non-user [facility] Start: 04-09-2024 End: 05-23-2024 Alcoholic beverage intake Current non-drinker of alcohol (finding) [facility] Start: 07-18-2020 End: 04-09-2024 [facility] Start: 07-18-2020 End: 04-09-2024 Tobacco use panel [facility] Start: 1955 Sex assigned at Not on file P [employer] [facility] Start: 02-05-2015 Sex [facility] (finding[facility] Procedure Code Equipment Code Equipment Origin al Text Equipment Identifier Dates Ld Pcng 55cm Rv Sq Scr S Df-4 - [id number] - [id number] Start: 11-20-2018 Lead Capsure Fix Novus 5076-45 - [id number] - [id number] Start: 11-20-2018 Lead Capsure Fix Novus 5076-52 - [id number] - [id number] Start: 07-21-2020 Dfbr Crd Evera M ri Xt Dr - [id number] - [id number] Start: 11-20-2018 Sys Crd Rvl Linq Rpl [id number] - [id number] - [id number] Start: 11-16-2018 Start: 01-20-2018 Goals Date Patient Goal Desired Activity /State Personal health goal Comment on above: Formatting of this n ote might be different from the original. Evaluation of progress towards goal: discharge home with episcopalian/friends support. Personal health goal Comment on above: Formatting of this n ote might be different from the original. Evaluation of progress towards goal: plan home self care Personal health goal Comment on above: Formatting of this n ote might be different from the original. Evaluation of progress towards goal: Patient likely will discharge to a SNF Clinical Notes 08-09-2022 to 05-23-2024 EDWARD Benavides - 05/23/2024 12:45 PM ESTTelephone Encounter - Tory Hoover RN - 05/23/2024 1:59 AM ESTTelephone Encounter - Tory Hoover RN - 05/23/2024 1:59 AM EST Note Date & Type Note Facility 05-23-2024 History of Present illness Narrative [facility] [address] [place] [address] Patient: Tomas Frausto Sex: male : 1955 Age: 69 y.o. PCP: CAYDEN Armstrong 05/23/2024 Tomas Frausto is here for a(n) post procedure follow up 05/03/24 Bilateral L4/5, 5/1 medial branch block injection with 100% relief. Now has pain in the back of his legs. Date of onset of pain: 5 years , pain has lasted greater than 3 months. Pain scale before treatment: 5/10 Pre-op pain score: 0/10 Post-op pain score: 0/10 2 hour post-op pain score: 0/10 4 hour post-op pain score: 0/10 Percentage of relief after and duration: 100% cont relief Pain scale after treatment: 0/10 back pain leg pain 4/10 Chief Complaint Patient presents with Back Pain HPI: Medication list was provided by patient's PCP today. 05/03/24 Bilateral L4/5, 5/1 medial branch block injection with 100% releif. Pre proc 5/10 post proc 0/10 continued Back Pain This is a chronic problem. The current episode started more than 1 year ago (5 years). The problem occurs intermittently. The problem has been gradually improving since onset. The quality of the pain is described as aching (thumping). The pain radiates to the right thigh and right knee. The pain is at a severity of 4/10 (0/10 back pain 4/10 leg pain). The pain is moderate. The pain is [...] The effect of pain on patient's ADLS: Mild Impairment. Past Medical History: Diagnosis Date Angina pectoris ([facility]) Arrhythmia Atrial fibrillation ([facility] Atrial flutter ([facility]) Atrial flutter ([facility]) Benign prostatic hyperplasia BPH with urinary obstruction Cancer ([facility]) skin cancer Cataract Constipation Coronary artery disease Dental disease no teeth Diabetes mellitus ([facility]) Diabetes mellitus type 2, controlled ([facility]) Hypercholesterolemia Hypertension Myositis Peripheral neuropathy Rash Scalp wound Urinary incontinence Ventricular tachycardia ([facility]) Visual impairment glasses Past Surgical History: Procedure Laterality Date 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; excision and debridement Left 10/29/2021 Performed by Ambrosio Al MD at [facility] AMPUTATION TOE 4TH & 5TH/WIDE INCISIONAL DEBRIDEMENT LEFT DIABETIC FOOT NECROTIZING FASCITIS Left 08/12/2021 Performed by Ambrosio Al MD at [facility] CARDIAC DEFIBRILLATOR PLACEMENT medtronic CATARACT EXTRACTION Coronary angiogram and left ventricular gram/pressure N/A 11/19/2018 Performed by Sage Jay MD at [facility] CARDIAC CATH LABS Coronary fractional flow reserve N/A 11/19/2018 Performed by Sage Jay MD at [facility] CARDIAC CATH LABS CYSTOSCOPY [facility] SOLUTION N/A 10/27/2021 Performed by Frederic Thorne MD at [facility] DC ICD RA lead replace - MDT N/A 07/21/2020 Performed by Yoni Espinoza MD at [facility] ([facility]) EP - Device DC ICD Left 11/20/2018 Performed by Shayna Betancourt MD at [facility] ([facility]) EP - Diagnostic-- EP study Right 11/16/2018 Performed by Rafita Garcia MD at [facility] ([facility]) INJECTION BLOCK NERVE MEDIAL BRANCH: bilat L 10/05, 10/31 Bilateral 05/03/2024 Performed by Nay Hyde MD at [facility] Loop recorder implant N/A 11/16/2018 Performed by Rafita Garcia MD at [facility] Loop recorder removal N/A 07/21/2020 Performed by Yoni Espinoza MD at [facility] SKIN CANCER EXCISION No Known Allergies [...] Social History Narrative Not on file Social Drivers of Health Financial Resource Strain: Not on file Food Insecurity: No Food Insecurity (05/23/2024) Hunger Screening Food Insecurity - Worry: Never True Food Insecurity - Inability: Never True Transportation Needs: Not on file Physical Activity: Not on file Stress: Not on file Social Connections: Not on file Interpersonal Safety: Unknown (08/24/2023) Received from [facility] Safety & Environment Fear of Current or Ex-Partner: Not on file Emotionally Abused: Not on file Physically Abused: Not on file Sexually Abused: Not on file Physically or Sexually Abused: Not on file Housing Instability: Not on file Review of Systems Constitutional: Negative. Negative for fever. HENT: Negative. Eyes: Negative. Respiratory: Negative. Cardiovascular: Negative. Negative for chest pain. Gastrointestinal: Negative. Negative for bowel incontinence. Endocrine: Negative. Genitourinary: Positive for bladder incontinence. Musculoskeletal: Negative. Skin: Positive for wound. Sees wound clinic Allergic/Immunologic: Negative. Neurological: Positive for weakness (BLE, wheelchair) and numbness (bilat feet (neuropathy)). Negative for tingling and headaches. Hematological: Negative. Psychiatric/Behavioral: Negative. Vital Signs: BP 145/73 Pulse 71 Resp 20 SpO2 100% Physical Exam: GENERAL - Healthy patient that [...] pain. Facet palpation is noted to be somewhat tender and facet loading maneuvers are mildly positive, but not concordant with the patient s normal pain complaints. STRENGTH - noted to be 5 out of 5 all muscle groups bilateral lower extremities including muscles involving hip flexion and abduction, knee flexion and extension, as well as foot dorsiflexion and plantarflexion. No notable atrophy, fasciculations or spasm. SENSORY - No notable sensory deficits in the bilateral lower extremities to touch or pinprick in all dermatomal distributions. Straight Leg Raise is negative Gait is antalgic. Assessment/Treatment Plan: Tomas was seen today for back pain. Diagnoses and all orders for this visit: Lumbosacral spondylosis without myelopathy Follow up 1 month The medications prescribed have been reviewed for [...] not opted for at this time: Lumbar MBB/RFA. Pain is under adequate control. At this time it does appear that the patient s pain is under adequate control with conservative care. It is felt that we should continue this approach and continue to monitor these symptoms and address them again in the future if they become more problematic. This approach was discussed with the patient and they are in agreement. The spine model was demonstrated and MRI was reviewed and used to explain the condition. Chronic conditions not treated during this visit that affected my overall medical decision making: Anticoagulant therapy, Diabetic, Chronic foot wound OARRS: Reviewed. Scribe Statement: Scribed for and in the presence of EDWARD BENAVIDES by Caridad Wallis RN. Provider Statement: IBEBETO PA, personally performed the services described in the documentation, as scribed by Caridad Wallis RN in my presence, and it is both accurate and complete. Caridad Wallis RN 05/23/24 1244 EDWARD Benavides 05/23/24 1347 documented in this encounter [facility] 05-23-2024 Miscellaneous Notes Last OV 03/08/23. Letter sent to pt 02/23. Attempted to call pt, no VM box set up. Letter sent. Pt will need appointment for future refills. documented in this encounter [facility] 05-23-2024 Telephone encounter Note Last OV 03/08/23. Letter sent to pt 02/23. Attempted to call pt, no VM box set up. Letter sent. Pt will need appointment for future refills. [facility] 04-09-2024 History of Present illness Narrative [facility] [address] [place] [address] Patient: Tomas Frausto Sex: male : 1955 Age: 68 y.o. PCP: CAYDEN Armstrong 04/09/2024 Tomas Frausto is here for a(n) Follow up to [...] Past Medical History: Diagnosis Date Angina pectoris ([facility]) Arrhythmia Atrial fibrillation ([facility]) Atrial flutter ([facility]) Atrial flutter ([facility]) Benign prostatic hyperplasia BPH with urinary obstruction Cancer ([facility]) skin cancer Cataract Constipation Coronary artery disease Dental disease no teeth Diabetes mellitus ([facility]) Diabetes mellitus type 2, controlled ([facility]) Hypercholesterolemia Hypertension Myositis Peripheral neuropathy Rash Scalp wound Urinary incontinence Ventricular tachycardia ([facility]) Visual impairment glasses Past Surgical History: Procedure Laterality Date 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; excision and debridement Left 10/29/2021 Performed by Ambrosio Al MD at [facility] AMPUTATION TOE 4TH & 5TH/WIDE INCISIONAL DEBRIDEMENT LEFT DIABETIC FOOT NECROTIZING FASCITIS Left 08/12/2021 Performed by Ambrosio Al MD at [facility] CARDIAC DEFIBRILLATOR PLACEMENT medtronic CATARACT EXTRACTION Coronary angiogram and left ventricular gram/pressure N/A 11/19/2018 Performed by Sage Jay MD at [facility] CARDIAC CATH LABS Coronary fractional flow reserve N/A 11/19/2018 Performed by Sage Jay MD at [facility] CARDIAC CATH LABS CYSTOSCOPY [facility] SOLUTION N/A 10/27/2021 Performed by Frederic Thorne MD at [facility] DC ICD RA lead replace - MDT N/A 07/21/2020 Performed by Yoni Espinoza MD at [facility] ([facility]) EP - Device DC ICD Left 11/20/2018 Performed by Shayna Betancourt MD at [facility] ([facility]) EP - Diagnostic-- EP study Right 11/16/2018 Performed by Rafita Garcia MD at [facility] ([facility] Loop recorder implant N/A 11/16/2018 Performed by Rafita Garcia MD at [facility] Loop recorder removal N/A 07/21/2020 Performed by Yoni Espinoza MD at [facility] SKIN CANCER EXCISION No Known Allergies [...] Interpersonal Safety: Unknown (08/24/2023) Received from [facility] [place] Safety & Environment Fear of [...] negative bilaterally. Gait is antalgic. Assessment/Treatment Plan: Tomas was seen today for back pain. Diagnoses [...] these patients; however, close collaboration with a nanny babysitter or director utilization management is recommended before initiating the RFN procedure, therefore prior to RFA we will consult with patient's nanny babysitter/director utilization management for approval and recommendations to proceed with [...] Benavides 04/11/24 1226 documented in this encounter [employer] 04-09-2024 Instructions Chula Bonilla CNA - 04/09/2024 [...] nearest emergency room. documented in this encounter [facility] [employer] 08-09-2022 Note PROCEDURE: XR FOOT L T [...] by: EDILSON DON Date: 2022-08-09 15:44 [facility] Evaluation note Diagnosis Lumbosacral spondylosis without myelopathy- Primary Lumbosacral spondylosis without myelopathy- Primary Lumbosacral spondylosis without myelopathy [facility] Diagnosis Enuresis- Primary Functional urinary incontinence BPH (benign prostatic hypertrophy) with urinary obstruction- Primary Hypertrophy of prostate with urinary obstruction and other lower urinary tract symptoms (LUTS) Benign prostatic hyperplasia with urinary obstruction- Primary Urinary retention- Primary Unspecified retention of urine Benign prostatic hyperplasia with urinary obstruction Ventricular tachycardia (CMS-HCC) Paroxysmal ventricular tachycardia Atrial fibrillation with RVR (CMS-HCC) V-tach (CMS-HCC) Paroxysmal ventricular tachycardia [facility] Diagnosis Enuresis- Primary Functional urinary incontinence BPH (benign prostatic hypertrophy) with urinary obstruction- Primary Hypertrophy of prostate with urinary obstruction and other lower urinary tract symptoms (LUTS) Benign prostatic hyperplasia with urinary obstruction- Primary Urinary retention- Primary Unspecified retention of urine Benign prostatic hyperplasia with urinary obstruction Lumbosacral spondylosis without myelopathy- Primary documented [facility] this [facility] filedocumented in this encounter [facility] on filedocumented in this encounter [facility] Summary Purpose Family History No [...] Comments 11/23/2017 1:57 PM 11/23/2017 5:15 PM Date Activated Date Inactivated Comments 08/10/2021 3:58 [...] 51 Bebeto Haq, EDWARD [address] [place] [address] Referral ID Status Reason Start Date Expiration Date V jairo Requested Visits Authorized [id number] Pending Review 04/09/2024 04/09/2025 1 1 Additional Source Comments (unrecognized sect ion and content) No Status Records FoundNo Status Records Found INFORMATION SOURCE (unrecogn ized section and content) DATE CREATED AUTHOR 11/16/2022 [facility] DATE CREATED AUTHOR AUTHOR'S ORGANIZ ATION 05/26/2024 [facility] Reason for Visit (unrecogniz ed section and content) Reason Comments Back Pain Reason Comments Med Refill Reason Comments Back Pain Care Teams (unrecognized sec tion and content) Ship Carpenter Relationship Specialty Start Date End Date [place] [address] [address] [place] PCP - General Family Medicine 12/26/23 Ship Carpenter Relationship Specialty Start Date End Date [place] [address] [address] [place], [place] PCP - General Family Medicine 04/16/24 Ship Carpenter Relationship Specialty Start Date End Date [place] [address] [address] [place], [place] PCP - General Family Medicine 04/16/24 FOR RECORDS PERTAINING TO PATIENTS WHO ARE [...] BE BASED ON THE PRIMARY CLINICAL RECORDS. [facility] [employer] [facility]. provides no warranty or guarantee of the accuracy or completeness of information in this document.
== END 2024-07-12 09:01 | disposition home or self-care (01) ==
LOC: WC 09:46
PROVIDERS: Visit Provider Podiatrist Foot & Ankle Surgery
DX: E11.621 Type 2 diabetes mellitus with foot ulcer (principal); L97.421 Non-pressure chronic ulcer of left heel and midfoot limited to breakdown of skin; L97.428 Non-pressure chronic ulcer of left heel and midfoot with other specified severity
CPT/HCPCS: A6213; G0463

== ENCOUNTER 2024-07-31 12:59 | Outpatient (OUT) | payer MEDICARE, MEDICAID, SELFPAY ==
--- NOTE | 2024-07-31 13:01 | CT_ITS ---
The [address] [address] Patient Name: RADHA QUIÑONES MRN: [id number] date: 1955 Sex: M Assigned Patient Location: CT Current Patient Location: Accession/Order Number: [id number] Exam Date: 07/31/2024 13:15 Report Date: 08/02/2024 05:33 At the request of: MARIANA PHILLIPS Procedure: CT foot LT wo con EXAMINATION: CT foot LT wo con HISTORY: Chronic Osteomyelitis Foot , left COMPARISON: XR foot left 03/22/2024 TECHNIQUE: Multi-planar CT images were created without and/or with IV contrast according to examination type. Dose reduction techniques were achieved by using automated exposure control and/or adjustment of mA and/or kV according to patient size and/or use of iterative reconstruction technique. FINDINGS: BONES: Prior amputation of the third through 5th toes at the level of the mid to distal metatarsals. Thinning of the cortex along the distal lateral margin of the third and 5th cortex; osseous destruction versus sequela of surgery. The distal tip of the fourth metatarsal lies very close to the skin surface. SOFT TISSUES: Abnormal skin thickening and density along the dorsal and distal lateral margins of the foot overlying the amputated ends of the third through 5th metatarsals. Some skin surface irregularity may represent ulcers. EFFUSION: None visible. OTHER: Negative. CT/CT foot LT wo con IMPRESSION: 1. Thickened appearance of the skin overlying the distal lateral foot may represent postsurgical changes or cellulitis. 2. Distal ends of the partially amputated third through 5th metatarsals lie immediately adjacent to the skin, with the fourth metatarsal very near the skin surface. Postoperative changes versus mild cortical destruction involving distal lateral margin of the third and 5th metatarsals. Electronically authenticated by: EDILSON DON Date: 08/02/2024 05:33
--- OUTSIDE RECORDS SUMMARY | 2024-07-31 13:14 | XMS_ITS | CCD ---
Author Organization [facility] Care Team Providers Care Circuit Clerk Name Role Phone MARIANA PHILLIPS Attending Unavailable [...] HIGHLANDERMARIANA Consulting Unavailable HIGHLANDERMARIANA Admitting Unavailable HIGHLANDER, MAIRANA Liu Consulting Unavailable CARMENANDERMARIANA Attending Unavailable Services, [facility] Primary Care Provider Services, [facility] Primary Care Provider IZZY SAM Referring Unavailable IZZY SAM Primary Care Unavailable DIVYA GONZALES Attending Unavailable SERVICES, [facility] Primary Care Unava ilable DIVAY GONZALES Attending Unavailable DIVYA GONZALES Referring Unavailable SERVICES, [facility] Primary Care Unava ilable DIVYA GONZALES Attending Unavailable DIVYA GONZALES Referring Unavailable SERVICES, [facility] Primary Care Unava ilable BEBETO HAQ Attending Unavailable JACKIE BARRERA Referring Unavailable SERVICES, [facility] Primary Care Unava ilable BEBETO HAQ Attending Unavailable NAY HYDE Referring Unavailable SERVICES, [facility] Primary Care Unava ilable BEBETO HAQ Attending Unavailable BEBETO HAQ Referring Unavailable SERVICES, [facility] Primary Care Unava ilable BEBETO HAQ Attending Unavailable NAY HYDE Referring Unavailable SERVICES, [facility] Primary Care Unava ilable SERVICES, [facility] Primary Care Unava ilable DIVYA GONZALES Attending Unavailable NAY HYDE Admitting Unavailable NAY HYDE Attending Unavailable NAY HYDE Referring Unavailable NAY HYDE Attending Unavailable NAY HYDE Referring Unavailable SERVICES, [facility] IZZY SAM Referring Unavailable SERVICES, [facility] BEBETO HAQ Attending Unavailable NAY HYDE Referring Unavailable SERVICES, [facility] MARIANA PHILLIPS Referring Unavailable SERVICES, [facility] IZZY SAM Referring Unavailable IZZY SAM Primary Care Unavailable Medications Current Medications Medication Drug Class(es) Dates Sig (Normalized) Sig (Original) 8 hr acetaminophen 650 mg extended release oral tablet (5 sources) take 1 tablet by mouth every [...] / HYDROcodone bitartrate 5 mg oral tablet (4 sources) Opioid Agonist take 1 tablet by mouth every six hours as needed for pain HYDROcodone-acetaminophen (NORCO) 5-325 mg per tablet Take 1 tablet by mouth every 6 (six) hours as needed for pain. Active amiodarone hydrochloride 200 mg oral tablet (4 sources) Antiarrhythmic Start : 03-08 take 1 tablet by mouth in the morning amiodarone (PACERONE) 200 mg tablet Take 1 tablet (200 mg total) by mouth in the morning. 90 tablet 3 03/08/2023 Active aspirin 81 mg delayed release oral tablet (4 sources) Platelet Aggregation Inhibitor, Nonsteroidal Anti-inflammatory Drug take 1 tablet by mouth in the morning aspirin 81 mg Take 1 tablet (81 mg total) by mouth in the morning. Active carisoprodol 350 mg oral tablet (4 sources) Muscle Relaxant Start : 12-27 take 1 tablet by mouth three times daily as needed for muscle spasms carisoprodoL (SOMA) 350 mg tablet Take 1 tablet (350 mg total) by mouth 3 (three) times a day as needed for muscle spasms. 12/28/2023 Active cholecalciferol 0.025 mg oral capsule (8 sources) Vitamin D Start : 11-01 take [...] morning. Active empagliflozin 25 mg oral tablet (4 sources) Sodium-Glucose Cotransporter 2 Inhibitor take 1 tablet by mouth in the morning empagliflozin (JARDIANCE) 25 mg tablet tablet Take 1 tablet (25 mg total) by mouth in the morning. Active sodium hypochlorite 2.5 mg/ml topical solution (4 sources) sodium hypochlor ite (DAKIN'S, HALF-STRENGTH,) 0.25 % external solution Apply 1 Application topically daily as needed for wound care (Use to clean left foot wound as instructed.). Use to clean left foot wound as instructed. Active 3 ml insulin glargine 100 unt/ml pen injector (4 sources) Insulin Analog inject 32 [IU] by subcutaneous injection once daily insulin glargine (LANTUS, BASAGLAR) 100 unit/mL (3 mL) insulin pen Inject 32 Units under the skin nightly. Active lactobacillus acidophilus [id number] unt / pectin 10 mg oral capsule (4 sources) take 1 capsule by mouth once daily at breakfast acidophilus-pectin, citrus 100 million cell-10 mg capsule Take by mouth daily with breakfast. Active magnesium oxide 400 mg oral tablet (4 sources) Start: 2020 take 1 tablet by mouth three times daily at mealtime magnesium oxide (MAG-OX) 400 mg tablet Indications: Hypomagnesemia Take 1 tablet (400 mg total) by mouth 3 (three) times a day with meals. 90 tablet 5 06/16/2021 Active 24 hr metFORMIN hydrochloride 500 mg extended release oral tablet (4 sources) Biguanide Start: 2017 take 2 tablets by mouth every twenty-four hours in the morning, then take 2 tablets by mouth at bedtime metFORMIN XR (GLUCOPHAGE-XR) 500 mg 24 hr tablet Take 2 tablets (1,000 mg total) by mouth in the morning and 2 tablets (1,000 mg total) before bedtime. 01/23/2018 Active 24 hr metoprolol succinate 100 mg extended release oral tablet (6 sources) beta-Adrenergic Elsi Start: 2024 take 1 tablet by mouth every twenty-four hours in the morning metoprolol succinate XL (TOPROL XL) 100 mg 24 hr tablet Indications: Ventricular tachycardia (CMS-HCC) , Atrial fibrillation with RVR (CMS-HCC) , V-tach (CMS-HCC) TAKE 1 TABLET (100 MG TOTAL) BY MOUTH IN THE MORNING 90 tablet 07/22/2024 Active Start: 06-19-2024 End: 07-22-2024 take 1 tablet by mouth every twenty-four hours in the morning metoprolol succinate XL (TOPROL XL) 100 mg 24 hr tablet Indications: Ventricular tachycardia (CMS-HCC) , Atrial fibrillation with RVR (CMS-HCC) , V-tach (CMS-HCC) TAKE 1 TABLET (100 MG TOTAL) BY MOUTH IN THE MORNING 30 tablet 06/19/2024 07/22/2024 Discontinued Start: 02-21-2024 End: 05-23-2024 take 1 tablet by mouth every twenty-four hours in the morning metoprolol succinate XL (TOPROL XL) 100 mg 24 hr tablet Indications: Ventricular tachycardia (CMS-HCC) , Atrial fibrillation with RVR (CMS-HCC) , V-tach (CMS-HCC) TAKE 1 TABLET (100 MG TOTAL) BY MOUTH IN THE MORNING 30 tablet 05/23/2024 Active OZEMPIC 0.25 mg or 0.5 mg (2 mg/3 mL) pen injector (4 sources) Start: 11-28-2023 inject 0.5 mg by subcutaneous injection every week OZEMPIC 0.25 mg or 0.5 mg (2 mg/3 mL) pen injector Inject 0.5 mg under the skin once a week. 11/28/2023 Active pantoprazole 40 mg delayed release oral tablet (4 sources) Proton Pump Inhibitor Start: 08-16-2021 take 1 tablet by mouth once daily before breakfast pantoprazole (PROTONIX) 40 mg EC tablet Take 1 tablet (40 mg total) by mouth every morning before breakfast. 30 tablet 3 08/16/2021 Active rivaroxaban 20 mg oral tablet (4 sources) Factor Xa Inhibitor Start: 02-21-2024 take 1 tablet by mouth in the morning XARELTO 20 mg tablet tablet Indications: Atrial fibrillation, unspecified type (CMS-HCC) TAKE 1 TABLET (20 MG TOTAL) BY MOUTH IN THE MORNING 90 tablet 1 02/21/2024 Active sertraline 50 mg oral tablet (4 sources) Serotonin Reuptake Inhibitor take 1 tablet by mouth in the morning sertraline (ZOLOFT) 50 mg tablet Take 1 tablet (50 mg total) by mouth in the morning. Active tamsulosin hydrochloride 0.4 mg oral capsule (4 sources) alpha-Adrenergi c Elsi Start: 05-02-2020 take [...] 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: [BACTEREMIA] Onset: 08-26-2022 Episodic Cardiac dysrhythmias (20 sources) Unspecified atrial fibrillation; 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: [Paroxysmal atrial fibrillation] Onset: 11-14-2018 11-14-2018 Chronic Cardiac dysrhythmias (1 source) Bradycardia, unspecified; 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: [BRADYCARDIA UNSPECIFIED] Onset: 08-26-2022 Episodic Chronic ulcer of skin (6 sources) 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 breakdown of skin; 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: [Non-pressure chronic ulcer of left heel and midfoot limited to breakdown of skin] Onset: 08-26-2022 Chronic Conduction disorders (4 sources) Automatic implantable cardiac defibrillator in situ; 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: [Presence of automatic (implantable) cardiac defibrillator] Onset: 12-04-2018 02-19-2019 Chronic Coronary atherosclerosis and other heart disease (8 sources) Coronary atherosclerosis; 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: [Atherosclerotic heart disease of [place] coronary artery without angina pectoris] Onset: 12-04-2018 12-04-2018 Chronic Diabetes mellitus with complications (20 sources) Type 2 diabetes mellitus with other skin ulcer; 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: [Type 2 diabetes mellitus with diabetic nephropathy] Onset: 04-18-2018 Chronic Disorders of lipid metabolism (5 sources) Pure hypercholesterolemia ; 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: [Pure hypercholesterolemia , unspecified] Onset: 12-04-2018 12-04-2018 Chronic E Codes: Fall (1 source) Fall Onset: 04-16-2024 Essential hypertension (5 sources) Essential (primary) hypertension; 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: [Essential hypertension] Onset: 11-17-2021 11-17-2021 Chronic Genitourinary symptoms and ill-defined conditions (4 sources) Functional urinary incontinence; 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: [Functional urinary incontinence] Onset: 08-10-2016 09-07-2016 Chronic Hyperplasia of prostate (8 sources) Benign prostatic hypertrophy with outflow obstruction; [...] caused by tuberculosis or sexually transmitted disease) (4 sources) Osteomyelitis; 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: [Osteomyelitis, unspecified] Onset: 11-17-2021 [...] Episodic Other nutritional; endocrine; and metabolic disorders (4 sources) Hypomagnesemia; 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: [Hypomagnesemia] Onset: 11-17-2021 11-17-2021 [...] Spondylosis; intervertebral disc disorders; other back problems (8 sources) Lumbosacral spondylosis without myelopathy; 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: [Spondylosis [...] Complications of surgical procedures or medical care (4 sources) Non-healing surgical wound; 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: [Other complications of procedures, not elsewhere classified, initial encounter] Onset: 10-01-2021 10-01-2021 Episodic E Codes: Fall (1 source) Unspecified fall, initial encounter; 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: [Unspecified fall, initial encounter] Onset: 04-16-2024 Episodic Genitourinary symptoms and ill-defined conditions (4 sources) Jordy hematuria; 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: [Gross hematuria] Onset: 09-15-2021 09-15-2021 Episodic Immunizations and screening for infectious disease (1 source) Encounter for screening for other viral diseases; 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: [Encounter for screening for other viral diseases] Onset: 08-02-2023 Episodic Nonspecific chest pain (4 sources) Chest pain; 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: [Chest pain, unspecified] Onset: 11-22-2017 11-22-2017 Episodic Open wounds of head; neck; and trunk (4 sources) Open wound of scalp ; 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: [Unspecified open wound of scalp, initial encounter] Onset: 03-02-2018 03-02-2018 Episodic Other connective tissue disease (4 sources) Myositis; 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: [Myositis, unspecified] Onset: 08-10-2021 08-10-2021 Episodic Other eye disorders (4 sources) Degenerative changes of anterior chamber angle; 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: [Degeneration of chamber angle, unspecified eye] Onset: 11-17-2021 11-17-2021 Episodic Other upper respiratory disease (1 source) Epistaxis; 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: [Epistaxis] Onset: 04-16-2024 Episodic Skull and face fractures (1 source) Fracture of nasal bones, initial encounter for closed fracture; 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: [Fracture of nasal bones, initial encounter for closed fracture] Onset: 04-16-2024 Episodic Spondylosis; intervertebral disc disorders; other back problems (3 sources) Radiculopathy, lumbar region; 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: [Backache] Onset: 12-26-2023 Episodic Results Test Name Value Interpretation Reference Range Facil ity CBC AND AUTO DIFFon 07-22-19 ABSOLUTE BASOPHIL 0.0 X10E9/L Normal 0.0-0.2 [facility] Comment on above: Performed By: #### C BCA, CMP #### [facility] ([id number]) [address] [place] [address] #### 2857-1, 55209-1, 50143-5, FEPR, 2276-4 #### [facility] ([id number]) [address] [facility], [address] [place] [address] ABSOLUTE NEUTROPHIL 3.8 X10E9/L Normal 1.5-6.6 [facility] Comment on above: Performed By: #### C BCA, CMP #### [facility] ([id number]) [address] [place] [address] #### 2857-1, 68037-6, 89882-6, FEPR, 2276-4 #### [facility] ([id number]) [address] [facility], [address] [place] [address] Basophils/100 WBC (Bld) 0.8 % Normal [facility] Comment on above: Performed By: #### C BCA, CMP #### [facility] ([id number]) [address] [place] [address]118 #### 2857-1, 11178-8, 91090-5, FEPR, 2276-4 #### [facility] ([id number]) [address] [facility], [address] [place] [address] Eosinophils (Bld) [#/Vol] 0.0 10*3/uL Normal 0.0-0.4 [facility] Comment on above: Performed By: #### C BCA, CMP #### [facility] ([id number]) [address] [place] [address] #### 2857-1, 79184-8, 19254-2, FEPR, 2276-4 #### [facility] ([id number]) [address] [facility], [address] [place] [address] Eosinophils/100 WBC (Bld) 0.7 % Normal [facility] Comment on above: Performed By: #### C GARDENIA, CMP #### [facility] ([id number]) [address] [place] [address]14[address] #### 2857-1, 39267-8, 47447-8, FEPR, 2276-4 #### [facility] ([id number]) [address] [facility], [address] [place] [address] Erythrocyte distribution width (RBC) [Ratio] 14.6 % Normal 11.5-15.0 [facility] Comment on above: Performed By: #### C GARDENIA, CMP #### [facility] ([id number]) [address] [place] [address]69[address] #### 2857-1, 60563-5, 54380-0, FEPR, 2276-4 #### [facility] ([id number]) [address] [facility], [address] [place] [address] Hematocrit (Bld) [Volume fraction] 42.0 % Normal 39-49 [facility] Comment on above: Performed By: #### C BCA, CMP #### [facility] ([id number]) [address] [place] [address] #### 2857-1, 75468-9, 60617-8, FEPR, 2276-4 #### [facility] ([id number]) [address], [address] [place] [address] Hemoglobin (Bld) [Mass/Vol] 13.9 g/dL Normal 13.0-17.0 [facility] Comment on above: Performed By: #### C BCA, CMP #### [facility] ([id number]) [address] [place] [address] #### 2857-1, 67262-8, 94244-8, FEPR, 2276-4 #### [facility] ([id number]) [address] [facility], [address] [place] [address] Lymphocytes (Bld) [#/Vol] 1.5 10*3/uL Normal 1.0-3.5 [facility] Comment on above: Performed By: #### C BCA, CMP #### [facility] ([id number]) [address] [place] [address] #### 2857-1, 36495-8, 34418-5, FEPR, 2276-4 #### [facility] ([id number]) [address], [address] [place] [address] Lymphocytes/100 WBC (Bld) 24.7 % Normal [facility] Comment on above: Performed By: #### C BCA, CMP #### [facility] ([id number]) [address] [place] [address]67[address] #### 2857-1, 52139-1, 18400-2, FEPR, 2276-4 #### [facility] ([id number]) [address], [address] [place] [address] MCH (RBC) [Entitic mass] 30.7 pg Normal 27-34 [facility] Comment on above: Performed By: #### C BCA, CMP #### [facility] ([id number]) [address] [place] [address] #### 2857-1, 05296-4, 90966-0, FEPR, 2276-4 #### [facility] ([id number]) [address], [address] [place] [address] MCHC (RBC) [Mass/Vol] 33.0 g/dL Normal 32-36 [facility] Comment on above: Performed By: #### C BCA, CMP #### [facility] ([id number]) [address] [place] [address] #### 2857-1, 35020-2, 18391-5, FEPR, 6-4 #### [facility] ([id number]) [address], [address] [place] [address] MCV (RBC) [Entitic vol] 93 fL Normal 80-100 [facility] Comment on above: Performed By: #### C BCA, CMP #### [facility] ([id number]) [address] [place] [address]6985 #### 2857-1, 46155-6, 51699-6, FEPR, 2275-4 #### [facility] ([id number]) [address], [address] [place] [address] Monocytes (Bld) [#/Vol] 0.6 10*3/uL Normal 0-0.9 [facility] Comment on above: Performed By: #### C BCA, CMP #### [facility] ([id number]) [address] [place] [address]309 #### 2857-1, 46410-9, 74839-0, FEPR, 2276-4 #### [facility] ([id number]) [address], [address] [place] [address] Monocytes/100 WBC (Bld) 9.7 % Normal [facility] Comment on above: Performed By: #### C BCA, CMP #### [facility] ([id number]) [address] [place] [address]70[address] #### 2857-1, 59730-0, 70802-8, FEPR, 2276-4 #### [facility] ([id number]) [address], [address] [place] [address] Neutrophils/100 WBC (Bld) 64.1 % Normal [facility] Comment on above: Performed By: #### C BCA, CMP #### [facility] ([id number]) [address] [place] [address]64 #### 2857-1, 69225-7, 41754-7, FEPR, 2276-4 #### [facility] ([id number]) [address], [address] [place] [address] Platelet mean volume (Bld) [Entitic vol] 8.2 fL Normal 7-12 [facility] Comment on above: Performed By: #### C BCA, CMP #### [facility] ([id number]) [address] [place] [address] 10163 #### 2857-1, 00910-1, 73730-1, FEPR, 2276-4 #### [facility] ([id number]) [address], [address] [place] [address] Platelets (Bld) [#/Vol] 315 10*3/uL Normal 150-450 [facility] Comment on above: Performed By: #### C BCA, CMP #### [facility] ([id number]) [address] [place] [address] #### 2857-1, 96276-8, 10786-8, FEPR, 2276-4 #### [facility] ([id number]) [address], [address] [place] [address] RBC COUNT 4.52 X10E12/L Normal 4.10-5.70 [facility] Comment on above: Performed By: #### C BCA, CMP #### [facility] ([id number]) [address] [place] [address]37[address] #### 2857-1, 08742-5, 32257-4, FEPR, 2276-4 #### [facility] ([id number]) [address], [address] [place] [address] WBC (Bld) [#/Vol] 5.9 10*3/uL Normal 4.0-11.0 [facility] Comment on above: Performed By: #### C BCA, CMP #### [facility] ([id number]) [address] [place] [address]757 #### 2857-1, 17313-2, 87488-1, FEPR, 2276-4 #### [facility] ([id number]) [address], [address] [place] [address] CRP [Mass/Vol]on 07-22-2024 C REACTIVE PROTEIN 1.9 mg/dL High 0.000-0.744 [facility] Comment on above: Performed By: #### C BCA, CMP #### [facility] ([id number]) [address] [place] [address] 33984 #### 2857-1, 84945-8, 06794-3, FEPR, 2276-4 #### [facility] ([id number]) [address], [address] [place] [address] ESR Photometric method (Bld) [Velocity]on 07-22-2024 ESR, ERYTHROCYTE SEDIMENTATION RATE 47 mm/h High 0-20 [facility] Comment on above: Performed By: #### C BCA, CMP #### [facility] ([id number]) [address] [place] [address]15 #### 2857-1, 39100-8, 23340-2, FEPR, 2276-4 #### [facility] ([id number]) [address] [place] [address], [address] [place] [address] HGB A1C (GLYCO-HGB)on 2024 Glucose [Mass/Vol] 203 mg/dL Normal [facility] Comment on above: Performed By: #### C BCA, CMP #### [facility] ([id number]) [address] [place] [address]16 #### 2857-1, 96851-2, 68158-3, FEPR, 2276-4 #### [facility] ([id number]) [address] [place] [address], [address] [address] HbA1c (Bld) [Mass fraction] 8.7 % High 4.4-5.6 [facility] Comment on above: Result Comment: NOTE ADA Guidelines Result HgbA1c Normal : less than 5.7 % Prediabetes : 5.7 % to 6.4 % Diabetes : > 6.4 % Use with caution in patients with abnormal hemoglobin variants as the half-life of red blood cells and in vivo glycation rates are affected. Performed By: #### C BCA, CMP #### [facility] ([id number]) [address] [place] [address] #### 2857-1, 88400-0, 28292-1, FEPR, 2276-4 #### [facility] ([id number]) [address] [place] [address], [address] [place] [address] COMPREHENSIVE METABOLIC PANE Alex 05-09-2024 Albumin [Mass/Vol] 4.2 g/dL Normal 3.2-5.3 [facility] Comment on above: Performed By: #### C BCA, CMP #### [facility] ([id number]) [address] [place] [address]387 #### 2857-1, 97928-9, 82347-0, FEPR, 2276-4 #### [facility] ([id number]) [address], [address] [place] [address] ALP [Catalytic activity/Vol] 46 U/L Normal 39-130 [facility] Comment on above: Performed By: #### C BCA, CMP #### [facility] ([id number]) [address] [place] [address] #### 2857-1, 45997-2, 57278-3, FEPR, 2276-4 #### [facility] ([id number]) [address], [address] [place] [address] ALT [Catalytic activity/Vol] 16 U/L Normal 0-40 [facility] Comment on above: Performed By: #### C BCA, CMP #### [facility] ([id number]) [address] [place] [address]676 #### 2857-1, 66267-7, 06217-3, FEPR, 2276-4 #### [facility] ([id number]) [address], [address] [place] [address] Anion gap [Moles/Vol] 10 mmol/L Normal 5-15 [facility] Comment on above: Performed By: #### C BCA, CMP #### [facility] ([id number]) [address] [place] [address]54 #### 2857-1, 20208-3, 95551-7, FEPR, 2276-4 #### [facility] ([id number]) [address], [address] [place] [address] AST [Catalytic activity/Vol] 16 U/L Normal 0-41 [facility] Comment on above: Performed By: #### C BCA, CMP #### [facility] ([id number]) [address] [place] [address] #### 2857-1, 47955-1, 65464-6, FEPR, 2276-4 #### [facility] ([id number]) [address], [address] [place] [address] Bilirubin [Mass/Vol] 0.5 mg/dL Normal 0.3-1.2 [facility] Comment on above: Performed By: #### C BCA, CMP #### [facility] ([id number]) [address] [place] [address]8938 #### 2857-1, 77721-2, 61241-6, FEPR, 2276-4 #### [facility] ([id number]) [address] [facility], [address] [place] [address] Calcium [Mass/Vol] 9.3 mg/dL Normal 8.5-10.5 [facility] Comment on above: Performed By: #### C BCA, CMP #### [facility] ([id number]) [address] [place] [address] 82573 #### 2857-1, 60190-8, 38421-7, FEPR, 2276-4 #### [facility] ([id number]) [address], [address] [place] [address] Chloride [Moles/Vol] 99 mmol/L Normal 98-109 [facility] Comment on above: Performed By: #### C BCA, CMP #### [facility] ([id number]) [address] [place] [address]115 #### 2857-1, 11312-2, 94950-4, FEPR, 2276-4 #### [facility] ([id number]) [address], [address] [place] [address] CO2 [Moles/Vol] 26 mmol/L Normal 22-32 [facility] Comment on above: Performed By: #### C BCA, CMP #### [facility] ([id number]) [address] [place] [address] #### 2857-1, 17552-8, 28382-4, FEPR, 2276-4 #### [facility] ([id number]) [address], [address] [place] [address] Creatinine [Mass/Vol] 1.27 mg/dL High 0.70-1.20 [facility] Comment on above: Result Comment: METH OD TRACEABLE TO IDMS STANDARD Performed By: #### C BCA, CMP #### [facility] ([id number]) [address] [place], [place] [address] #### 2857-1, 84924-3, 56404-5, FEPR, 2276-4 #### [facility] ([id number]) [address], [address] [place] [address] GFR/1.73 sq M.predicted among non-blacks MDRD (S/P/Bld) [Vol rate/Area] 61 mL/min/{1.73_m2} Normal >59 [facility] Comment on above: Result Comment: Reported eGFR is based on the CKD-EPI 2020 equation that does not use a race coefficient. Performed By: #### C BCA, CMP #### [facility] ([id number]) [address] [place] [address]991 #### 2857-1, 45671-9, 75903-3, FEPR, 2276-4 #### [facility] ([id number]) [address], [address] [place] [address] Glucose [Mass/Vol] 177 mg/dL High 65-99 [facility] Comment on above: Performed By: #### C BCA, CMP #### [facility] ([id number]) [address] [place] [address] #### 2857-1, 45943-3, 92694-3, FEPR, 2276-4 #### [facility] ([id number]) [address], [address] [place] [address] Potassium [Moles/Vol] 4.5 mmol/L Normal 3.5-5.0 [facility] Comment on above: Performed By: #### C BCA, CMP #### [facility] ([id number]) [address] [place] [address] 877[address] #### 2857-1, 07498-3, 97706-4, FEPR, 2276-4 #### [facility] ([id number]) [address], [address] [place] [address] Protein [Mass/Vol] 7.6 g/dL Normal 6.0-8.0 [facility] Comment on above: Performed By: #### C BCA, CMP #### [facility] ([id number]) [address] [place] [address] 58082 #### 2857-1, 76385-1, 94644-3, FEPR, 2276-4 #### [facility] ([id number]) [address], [address] [place] [address] Sodium [Moles/Vol] 135 mmol/L Normal 134-146 [facility] Comment on above: Performed By: #### C BCA, CMP #### [facility] ([id number]) [address] [place] [address] 28704 #### 2857-1, 92006-6, 35335-3, FEPR, 2276-4 #### [facility] ([id number]) [address], [address] [place] [address] Urea nitrogen [Mass/Vol] 24 mg/dL Normal 5-27 [facility] Comment on above: Performed By: #### C BCA, CMP #### [facility] ([id number]) [address] [place] [address] #### 2857-1, 96953-5, 22261-6, FEPR, 2276-4 #### [facility] ([id number]) [address], [address] [place] [address] Lipid 1996 panelon 4 Cholesterol [Mass/Vol] 137 mg/dL Low 150-200 [facility] Comment on above: Performed By: #### C GARDENIA, CMP #### [facility] ([id number]) [address] [place] [address] #### 2857-1, 76250-5, 73681-1, FEPR, 2276-4 #### [facility] ([id number]) [address], [address] [place] [address] Cholesterol in HDL [Mass/Vol] 32 mg/dL Low >39 [facility] Comment on above: Result Comment: HDL <40 mg/dL - High Risk HDL > or = 40mg/dL- Desirable HDL >60 mg/dL - Negative Risk Performed By: #### C BCA, CMP #### [facility] ([id number]) [address] [place] [address] 25786 #### 2857-1, 99693-3, 22026-1, FEPR, 2276-4 #### [facility] ([id number]) [address], [address] [place] [address] Cholesterol in LDL [Mass/Vol] 50 mg/dL Normal <130 [facility] Comment on above: Result Comment: LDL <100 mg/dL - Desirable LDL >160 mg/dL - High Risk Performed By: #### C BCA, CMP #### [facility] ([id number]) [address] [place] [address] 01381 #### 2857-1, 21924-7, 00553-1, FEPR, 2276-4 #### [facility] ([id number]) [address] [facility], [address] [place] [address] Cholesterol in VLDL [Mass/Vol] 55 mg/dL High 0-30 [facility] Comment on above: Performed By: #### C BCA, CMP #### [facility] ([id number]) [address] [place] [address] #### 2857-1, 10072-7, 75402-8, FEPR, 2276-4 #### [facility] ([id number]) [facility], [address] [place] [address] CHOLESTEROL:HDL 4.3 Normal 1.0-5.0 [facility] Comment on above: Performed By: #### C BCA, CMP #### [facility] ([id number]) [address] [place] [address] #### 2857-1, 37619-0, 65413-0, FEPR, 2276-4 #### [facility] ([id number]) [address] [facility], [address] [place] [address] Triglyceride [Mass/Vol] 275 mg/dL High 27-150 [facility] Comment on above: Performed By: #### C BCA, CMP #### [facility] ([id number]) [address] [place] [address] 48355 #### 2857-1, 43838-2, 91783-2, FEPR, 2276-4 #### [facility] ([id number]) [address], [address] [place] [address] TSH WITH REFLEXon 05-09-2024 TSH 4.67 uIU/mL Normal 0.49-4.67 [facility] Comment on above: Performed By: #### C BCA, CMP #### [facility] ([id number]) [address] [place] [address] 90726 #### 2857-1, 69804-5, 45665-5, FEPR, 2276-4 #### [facility] ([id number]) [address], [address] [place] [address] BASIC METABOLIC PANLon 04-16 Anion gap [Moles/Vol] 10 mmol/L Normal 5-15 [facility] Comment on above: Performed By: #### C BCA, CMP #### [facility] ([id number]) [address] [place] [address] 30593 #### 2857-1, 32638-4, 47464-5, FEPR, 6-4 #### [facility] ([id number]) [address], [address] [place] [address] Calcium [Mass/Vol] 9.3 mg/dL Normal 8.5-10.5 [facility] Comment on above: Performed By: #### C BCA, CMP #### [facility] ([id number]) [address] [place] [address] 89866 #### 2857-1, 76860-9, 86884-5, FEPR, 2276-4 #### [facility] ([id number]) [address], [address] [place] [address] Chloride [Moles/Vol] 101 mmol/L Normal 98-109 [facility] Comment on above: Performed By: #### C BCA, CMP #### [facility] ([id number]) [address] [place] [address] 48714 #### 2857-1, 40036-7, 32179-8, FEPR, 2276-4 #### [facility] ([id number]) [address], [address] [place] [address] CO2 [Moles/Vol] 27 mmol/L Normal 22-32 [facility] Comment on above: Performed By: #### C BCA, CMP #### [facility] ([id number]) [address] [place] [address] 59911 #### 2857-1, 97385-9, 77051-2, FEPR, 2276-4 #### [facility] ([id number]) [address] [facility], [address] [place] [address] Creatinine [Mass/Vol] 1.19 mg/dL Normal 0.70-1.20 [facility] Comment on above: Result Comment: METH OD TRACEABLE TO IDMS STANDARD Performed By: #### C BCA, CMP #### [facility] ([id number]) [address] [place] [address] 85679 #### 2857-1, 09920-5, 17040-2, FEPR, 2276-4 #### [facility] ([id number]) [address], [address] [place] [address] GFR/1.73 sq M.predicted among non-blacks MDRD (S/P/Bld) [Vol rate/Area] 66 mL/min/{1.73_m2} Normal >59 [facility] Comment on above: Result Comment: Reported eGFR is based on the CKD-EPI 2020 equation that does not use a race coefficient. Performed By: #### C BCA, CMP #### [facility] ([id number]) [address] [place] [address]29 #### 2857-1, 72697-7, 37583-9, FEPR, 2276-4 #### [facility] ([id number]) [address], [address] [place] [address] Glucose [Mass/Vol] 165 mg/dL High 65-99 [facility] Comment on above: Performed By: #### C BCA, CMP #### [facility] ([id number]) [address] [place] [address] 97979 #### 2857-1, 07604-3, 06107-3, FEPR, 2276-4 #### [facility] ([id number]) [address], [address] [place] [address] Potassium [Moles/Vol] 4.2 mmol/L Normal 3.5-5.0 [facility] Comment on above: Performed By: #### C BCA, CMP #### [facility] ([id number]) [address] [place] [address] 58182 #### 2857-1, 14299-1, 33742-7, FEPR, 2276-4 #### [facility] ([id number]) [address], [address] [place] [address] Sodium [Moles/Vol] 138 mmol/L Normal 134-146 [facility] Comment on above: Performed By: #### C BCA, CMP #### [facility] ([id number]) [address] [place] [address] 89014 #### 2857-1, 94668-3, 98187-4, FEPR, 2276-4 #### [facility] ([id number]) [address], [address] [place] [address] Urea nitrogen [Mass/Vol] 17 mg/dL Normal 5-27 [facility] Comment on above: Performed By: #### C BCA, CMP #### [facility] ([id number]) [address] [place] [address] 02079 #### 2857-1, 15510-2, 51564-9, FEPR, 2276-4 #### [facility] ([id number]) [address], [address] [place] [address] CBC AND AUTO DIFFon 10-15-20 24 ABSOLUTE BASOPHIL 0.0 X10E9/L Normal 0.0-0.2 [facility] Comment on above: Performed By: #### C BCA, CMP #### [facility] ([id number]) [address] [place] [address] 40763 #### 2857-1, 41439-8, 76541-1, FEPR, 2276-4 #### [facility] ([id number]) [address] [facility], [address] [place] [address] ABSOLUTE NEUTROPHIL 4.0 X10E9/L Normal 1.5-6.6 [facility] Comment on above: Performed By: #### C BCA, CMP #### [facility] ([id number]) [address] [place] [address] 26044 #### 2857-1, 17619-5, 06712-9, FEPR, 2276-4 #### [facility] ([id number]) [address], [address] [place] [address] Basophils/100 WBC (Bld) 0.5 % Normal [facility] Comment on above: Performed By: #### C BCA, CMP #### [facility] ([id number]) [address] [place] [address] 65780 #### 2857-1, 87388-8, 48101-9, FEPR, 2276-4 #### [facility] ([id number]) [address], [address] [place] [address] Eosinophils (Bld) [#/Vol] 0.0 10*3/uL Normal 0.0-0.4 [facility] Comment on above: Performed By: #### C GARDENIA, CMP #### [facility] ([id number]) [address] [place] [address] 89931 #### 2857-1, 07644-8, 87316-8, FEPR, 2276-4 #### [facility] ([id number]) [address], [address] [place] [address] Eosinophils/100 WBC (Bld) 0.4 % Normal [facility] Comment on above: Performed By: #### C GARDENIA, CMP #### [facility] ([id number]) [address] [place] [address] 44218 #### 2857-1, 96361-5, 58730-2, FEPR, 2276-4 #### [facility] ([id number]) [address] [facility], [address] [place] [address] Erythrocyte distribution width (RBC) [Ratio] 15.7 % High 11.5-15.0 [facility] Comment on above: Performed By: #### C GARDENIA, CMP #### [facility] ([id number]) [address] [place] [address] 41190 #### 2857-1, 55899-2, 58908-8, FEPR, 2276-4 #### [facility] ([id number]) [address], [address] [place] [address] Hematocrit (Bld) [Volume fraction] 39.9 % Normal 39-49 [facility] Comment on above: Performed By: #### C BCA, CMP #### [facility] ([id number]) [address] [place] [address] 76836 #### 2857-1, 30950-4, 01465-1, FEPR, 2276-4 #### [facility] ([id number]) [address], [address] [place] [address] Hemoglobin (Bld) [Mass/Vol] 13.1 g/dL Normal 13.0-17.0 [facility] Comment on above: Performed By: #### C BCA, CMP #### [facility] ([id number]) [address] [place] [address] 59606 #### 2857-1, 89226-4, 97571-2, FEPR, 2276-4 #### [facility] ([id number]) [address], [address] [place] [address] Lymphocytes (Bld) [#/Vol] 1.1 10*3/uL Normal 1.0-3.5 [facility] Comment on above: Performed By: #### C BCA, CMP #### [facility] ([id number]) [address] [place] [address] 27638 #### 2857-1, 70246-7, 76589-0, FEPR, 2276-4 #### [facility] ([id number]) [address], [address] [place] [address] Lymphocytes/100 WBC (Bld) 18.2 % Normal [facility] Comment on above: Performed By: #### C BCA, CMP #### [facility] ([id number]) [address] [place] [address] 89562 #### 2857-1, 52563-3, 11590-6, FEPR, 2276-4 #### [facility] ([id number]) [address], [address] [place] [address] MCH (RBC) [Entitic mass] 30.6 pg Normal 27-34 [facility] Comment on above: Performed By: #### C BCA, CMP #### [facility] ([id number]) [address] [place] [address] 09134 #### 2857-1, 88448-6, 61824-7, FEPR, 2276-4 #### [facility] ([id number]) [address], [address] [place] [address] MCHC (RBC) [Mass/Vol] 32.8 g/dL Normal 32-36 [facility] Comment on above: Performed By: #### C BCA, CMP #### [facility] ([id number]) [address] [place] [address] 07306 #### 2857-1, 68712-1, 42295-5, FEPR, 6-4 #### [facility] ([id number]) [address], [address] [place] [address] MCV (RBC) [Entitic vol] 93 fL Normal 80-100 [facility] Comment on above: Performed By: #### C BCA, CMP #### [facility] ([id number]) [address] [place] [address] 26548 #### 2857-1, 22409-4, 53079-5, FEPR, 2275-4 #### [facility] ([id number]) [address], [address] [place] [address] Monocytes (Bld) [#/Vol] 0.8 10*3/uL Normal 0-0.9 [facility] Comment on above: Performed By: #### C BCA, CMP #### [facility] ([id number]) [address] [place] [address] 32416 #### 2857-1, 45404-6, 38309-4, FEPR, 2276-4 #### [facility] ([id number]) [address], [address] [place] [address] Monocytes/100 WBC (Bld) 13.5 % Normal [facility] Comment on above: Performed By: #### C BCA, CMP #### [facility] ([id number]) [address] [place] [address] 88664 #### 2857-1, 90717-7, 42439-0, FEPR, 2276-4 #### [facility] ([id number]) [address], [address] [place] [address] Neutrophils/100 WBC (Bld) 67.4 % Normal [facility] Comment on above: Performed By: #### C BCA, CMP #### [facility] ([id number]) [address] [place] [address] 83647 #### 2857-1, 95073-3, 78880-5, FEPR, 2276-4 #### [facility] ([id number]) [address], [address] [place] [address] Platelet mean volume (Bld) [Entitic vol] 7.4 fL Normal 7-12 [facility] Comment on above: Performed By: #### C BCA, CMP #### [facility] ([id number]) [address] [place] [address] 01429 #### 2857-1, 91835-0, 53125-0, FEPR, 2276-4 #### [facility] ([id number]) [address], [address] [place] [address] Platelets (Bld) [#/Vol] 284 10*3/uL Normal 150-450 [facility] Comment on above: Performed By: #### C BCA, CMP #### [facility] ([id number]) [address] [place] [address] 82507 #### 2857-1, 58419-3, 28925-7, FEPR, 2276-4 #### [facility] ([id number]) [address], [address] [place] [address] RBC COUNT 4.27 X10E12/L Normal 4.10-5.70 [facility] Comment on above: Performed By: #### C BCA, CMP #### [facility] ([id number]) [address] [facility], [place] [address] #### 2857-1, 07542-0, 65741-0, FEPR, 2276-4 #### [facility] ([id number]) [address], [address] [place] [address] WBC (Bld) [#/Vol] 5.9 10*3/uL Normal 4.0-11.0 [facility] Comment on above: Performed By: #### C BCA, CMP #### [facility] ([id number]) [address] [place] [address], [place] [address] #### 2857-1, 53478-6, 12064-9, FEPR, 2276-4 #### [facility] ([id number]) [address], [address] [place] [address] CT BRAIN WO CONTon CT BRAIN WO [...] Avila DO on 04/16/2024 2:16 PM Normal [facility] CT CERVICAL SPINE WO CONTon 04-16-2024 [...] Avila DO on 04/16/2024 2:24 PM Normal [facility] CT FACIAL BONES WO CONTon CT [...] Morris Lau on 04/16/2024 2:30 PM Normal [facility] PROTIME AND INRon 04-16-2024 INR Coag (PPP) [Relative time] 2.1 {INR} High 0.8-1.1 [facility] Comment on above: Performed By: #### C GARDENIA, [facility] #### [facility] ([id number]) [address] [place] [address] #### 2857-1, 91955-6, 86318-0, FEPR, 2276-4 #### [facility] ([id number]) [address], [address] [place] [address] PT Coag (PPP) [Time] 23.7 s High 9.8-13.2 [facility] Comment on above: Result Comment: NEW REFERENCE RANGE Performed By: #### C BCA, CMP #### [facility] ([id number]) [address] [place] [address] 57985 #### 2857-1, 15665-3, 74840-3, FEPR, 2276-4 #### [facility] ([id number]) [address], [address] [place] [address] aPTT Coag (PPP) [Time]on aPTT Coag (Bld) [Time] 48 s High 26-37 [facility] Comment on above: Result Comment: NEW REFERENCE RANGE Performed By: #### C BCA, CMP #### [facility] ([id number]) [address] [place] [address] 27936 #### 2857-1, 40757-8, 25272-5, FEPR, 2276-4 #### [facility] ([id number]) [address], [facility] [address] [place] [address] MR LUMBAR SPINE WO CONTon MR LUMBAR [...] Stephens MD on 04/01/2024 10:47 PM Normal [facility] XR HIP LT 2-3 VIEWS W [...] Jaramillo MD on 12/26/2023 10:07 AM Normal [facility] XR SPINE LUMBAR 2 OR 3 [...] Jaramillo MD on 12/26/2023 10:10 AM Normal [facility] CBC AND AUTO DIFFon 09-22-19 24 ABSOLUTE BASOPHIL 0.0 X10E9/L Normal 0.0-0.2 [facility] Comment on above: Performed By: #### C BCA, CMP, THYR #### [facility] ([id number]) [address] [place] [address], [place] [address] #### 2857-1, 42077-1, 38559-3 #### [facility] ([id number]) [address] [facility], [address] [place] [address] ABSOLUTE NEUTROPHIL 4.3 X10E9/L Normal 1.5-6.6 [facility] Comment on above: Performed By: #### C BCA, CMP, THYR #### [facility] ([id number]) [address] [place] [address]87 #### 2857-1, 41123-4, 71782-6 #### [facility] ([id number]) [address] [facility], [address] [place] [address] Basophils/100 WBC (Bld) 0.5 % Normal [facility] Comment on above: Performed By: #### C BCA, CMP, THYR #### [facility] ([id number]) [address] [place] [address] #### 2857-1, 73875-5, 52315-5 #### [facility] ([id number]) [address] [facility], [address] [place] [address] Eosinophils (Bld) [#/Vol] 0.0 10*3/uL Normal 0.0-0.4 [facility] Comment on above: Performed By: #### C BCA, CMP, THYR #### [facility] ([id number]) [address] [place] [address] #### 2857-1, 16976-9, 24954-1 #### [facility] ([id number]) [address] [facility], [address] [place] [address] Eosinophils/100 WBC (Bld) 0.7 % Normal [facility] Comment on above: Performed By: #### C BCA, CMP, THYR #### [facility] ([id number]) [address] [place] [address] #### 2857-1, 10510-5, 36235-1 #### [facility] ([id number]) [address] [facility], [address] [place] [address] Erythrocyte distribution width (RBC) [Ratio] 15.8 % High 11.5-15.0 [facility] Comment on above: Performed By: #### C BCA, CMP, THYR #### [facility] ([id number]) [address] [place] [address] #### 2857-1, 79427-7, 45644-6 #### [facility] ([id number]) [address], [address] [place] [address] Hematocrit (Bld) [Volume fraction] 39.8 % Normal 39-49 [facility] Comment on above: Performed By: #### C BCA, CMP, THYR #### [facility] ([id number]) [address] [place] [address] #### 2857-1, 11986-2, 01987-3 #### [facility] ([id number]) [address], [address] [place] [address] Hemoglobin (Bld) [Mass/Vol] 13.2 g/dL Normal 13.0-17.0 [facility] Comment on above: Performed By: #### C BCA, CMP, THYR #### [facility] ([id number]) [address] [place] [address] #### 2857-1, 58346-2, 30655-6 #### [facility] ([id number]) [address], [address] [place] [address] Lymphocytes (Bld) [#/Vol] 1.1 10*3/uL Normal 1.0-3.5 [facility] Comment on above: Performed By: #### C BCA, CMP, THYR #### [facility] ([id number]) [address] [place] [address] #### 2857-1, 90169-1, 37509-6 #### [facility] ([id number]) [address], [address] [place] [address] Lymphocytes/100 WBC (Bld) 17.7 % Normal [facility] Comment on above: Performed By: #### C BCA, CMP, THYR #### [facility] ([id number]) [address] [place] [address] #### 2857-1, 85849-8, 21823-4 #### [facility] ([id number]) [address], [address] [place] [address] MCH (RBC) [Entitic mass] 29.8 pg Normal 27-34 [facility] Comment on above: Performed By: #### C BCA, CMP, THYR #### [facility] ([id number]) [address] [place] [address] #### 2857-1, 41278-6, 40887-9 #### [facility] ([id number]) [address], [address] [place] [address] MCHC (RBC) [Mass/Vol] 33.1 g/dL Normal 32-36 [facility] Comment on above: Performed By: #### C BCA, CMP, THYR #### [facility] ([id number]) [address] [place] [address] #### 2857-1, 95876-1, 72714-4 #### [facility] ([id number]) [address], [address] [place] [address] MCV (RBC) [Entitic vol] 90 fL Normal 80-100 [facility] Comment on above: Performed By: #### C BCA, CMP, THYR #### [facility] ([id number]) [address] [place] [address] #### 2857-1, 20745-7, 87203-2 #### [facility] ([id number]) [address], [address] [place] [address] Monocytes (Bld) [#/Vol] 0.8 10*3/uL Normal 0-0.9 [facility] Comment on above: Performed By: #### C BCA, CMP, THYR #### [facility] ([id number]) [address] [place] [address] #### 2857-1, 32616-1, 87612-6 #### [facility] ([id number]) [address], [address] [place] [address] Monocytes/100 WBC (Bld) 12.8 % Normal [facility] Comment on above: Performed By: #### C BCA, CMP, THYR #### [facility] ([id number]) [address] [place] [address] #### 2857-1, 58945-3, 52867-1 #### [facility] ([id number]) [address], [address] [place] [address] Neutrophils/100 WBC (Bld) 68.3 % Normal [facility] Comment on above: Performed By: #### C BCA, CMP, THYR #### [facility] ([id number]) [address] [place] [address] #### 2857-1, 58182-8, 22741-9 #### [facility] ([id number]) [address], [address] [place] [address] Platelet mean volume (Bld) [Entitic vol] 7.8 fL Normal 7-12 [facility] Comment on above: Performed By: #### C BCA, CMP, THYR #### [facility] ([id number]) [address] [place] [address] #### 2857-1, 84007-0, 82459-4 #### [facility] ([id number]) [address] [address] [place] [address] Platelets (Bld) [#/Vol] 259 10*3/uL Normal 150-450 [facility] Comment on above: Performed By: #### C BCA, CMP, THYR #### [facility] ([id number]) [address] [place] [address] #### 2857-1, 51500-0, 90999-5 #### [facility] ([id number]) [address] [facility], [address] [place] [address] RBC COUNT 4.42 X10E12/L Normal 4.10-5.70 [facility] Comment on above: Performed By: #### C BCA, CMP, THYR #### [facility] ([id number]) [address] [place] [address] 14970 #### 2857-1, 28611-7, 71410-6 #### [facility] ([id number]) [address] [facility], [address] [place] [address] WBC (Bld) [#/Vol] 6.2 10*3/uL Normal 4.0-11.0 [facility] Comment on above: Performed By: #### C BCA, CMP, THYR #### [facility] ([id number]) [address] [place] [address] 86176 #### 2857-1, 31973-7, 89197-6 #### [facility] ([id number]) [address] [facility], [address] [place] [address] COMPREHENSIVE METABOLIC PANE Alex 09-22-2023 Albumin [Mass/Vol] 4.2 g/dL Normal 3.2-5.3 [facility] Comment on above: Performed By: #### C BCA, CMP, THYR #### [facility] ([id number]) [address] [place] [address] 65796 #### 2857-1, 70791-5, 93045-8 #### [facility] ([id number]) [address] [facility], [address] [place] [address] ALP [Catalytic activity/Vol] 41 U/L Normal 39-130 [facility] Comment on above: Performed By: #### C BCA, CMP, THYR #### [facility] ([id number]) [address] [place] [address] 01900 #### 2857-1, 22820-4, 64055-7 #### [facility] ([id number]) [address] [place] [address], [address] [place] [address] ALT [Catalytic activity/Vol] 17 U/L Normal 0-40 [facility] Comment on above: Performed By: #### C BCA, CMP, THYR #### [facility] ([id number]) [address] [place] [address] #### 2857-1, 17783-9, 24495-0 #### [facility] ([id number]) [address] [place] [address], [address] [place] [address] Anion gap [Moles/Vol] 6 mmol/L Normal 5-15 [facility] Comment on above: Performed By: #### C BCA, CMP, THYR #### [facility] ([id number]) [address] [place] [address] 57240 #### 2857-1, 12578-3, 70659-8 #### [facility] ([id number]) [address] [place] [address], [address] [place] [address] AST [Catalytic activity/Vol] 20 U/L Normal 0-41 [facility] Comment on above: Performed By: #### C BCA, CMP, THYR #### [facility] ([id number]) [address] [place] [address] 29743 #### 2857-1, 71876-1, 35755-8 #### [facility] ([id number]) [address], [address] [place] [address] Bilirubin [Mass/Vol] 0.4 mg/dL Normal 0.3-1.2 [facility] Comment on above: Performed By: #### C BCA, CMP, THYR #### [facility] ([id number]) [address] [place] [address] 53208 #### 2857-1, 20576-1, 44481-7 #### [facility] ([id number]) [address], [address] [place] [address] Calcium [Mass/Vol] 9.3 mg/dL Normal 8.5-10.5 [facility] Comment on above: Performed By: #### C BCA, CMP, THYR #### [facility] ([id number]) [address] [place] [address] 53520 #### 2857-1, 86997-9, 07412-2 #### [facility] ([id number]) [address], [address] [place] [address] Chloride [Moles/Vol] 103 mmol/L Normal 98-109 [facility] Comment on above: Performed By: #### C BCA, CMP, THYR #### [facility] ([id number]) [address] [place] [address] 35518 #### 2857-1, 12105-8, 86377-9 #### [facility] ([id number]) [address], [address] [place] [address] CO2 [Moles/Vol] 27 mmol/L Normal 22-32 [facility] Comment on above: Performed By: #### C BCA, CMP, THYR #### [facility] ([id number]) [address] [place] [address] 30767 #### 2857-1, 96370-0, 88710-7 #### [facility] ([id number]) [address], [address] [place] [address] Creatinine [Mass/Vol] 1.12 mg/dL Normal 0.70-1.20 [facility] Comment on above: Result Comment: METH OD TRACEABLE TO IDMS STANDARD Performed By: #### C BCA, CMP, THYR #### [facility] ([id number]) [address] [place] [address] 27838 #### 2857-1, 07267-3, 01918-8 #### [facility] ([id number]) [address], [address] [place] [address] GFR/1.73 sq M.predicted among non-blacks MDRD (S/P/Bld) [Vol rate/Area] 71 mL/min/{1.73_m2} Normal >59 [facility] Comment on above: Result Comment: Reported eGFR is based on the CKD-EPI 2020 equation that does not use a race coefficient. Performed By: #### C BCA, CMP, THYR #### [facility] ([id number]) [address] [place] [address] 80420 #### 2857-1, 88080-5, 80495-9 #### [facility] ([id number]) [address], [address] [place] [address] Glucose [Mass/Vol] 178 mg/dL High 65-99 [facility] Comment on above: Performed By: #### C BCA, CMP, THYR #### [facility] ([id number]) [address] [place] [address] 25191 #### 2857-1, 50010-1, 22662-2 #### [facility] ([id number]) [address], [address] [place] [address] Potassium [Moles/Vol] 4.6 mmol/L Normal 3.5-5.0 [facility] Comment on above: Performed By: #### C BCA, CMP, THYR #### [facility] ([id number]) [address] [place] [address] 06928 #### 2857-1, 06079-1, 03109-3 #### [facility] ([id number]) [address], [address] [place] [address] Protein [Mass/Vol] 7.8 g/dL Normal 6.0-8.0 [facility] Comment on above: Performed By: #### C BCA, CMP, THYR #### [facility] ([id number]) [address] [place] [address] 71475 #### 2857-1, 05984-9, 50048-2 #### [facility] ([id number]) [address], [address] [place] [address] Sodium [Moles/Vol] 136 mmol/L Normal 134-146 [facility] Comment on above: Performed By: #### C BCA, CMP, THYR #### [facility] ([id number]) [address] [place] [address] 13079 #### 2857-1, 54104-6, 12111-5 #### [facility] ([id number]) [address], [address] [place] [address] Urea nitrogen [Mass/Vol] 18 mg/dL Normal 5-27 [facility] Comment on above: Performed By: #### C BCA, CMP, THYR #### [facility] ([id number]) [address] [place] [address] 98050 #### 2857-1, 67421-9, 52302-4 #### [facility] ([id number]) [address], [address] [place] [address] HCV Ab IA Qlon 09-22-2023 ANTI HCV W/PCR REFLX Non-Reactive Normal NRCT [facility] Comment on above: Result Comment: If recent infection suspected, recommend repeat testing (>2 months). Ykapkh-og-aykqdn ratio is <0.80. Performed By: #### C BCA, CMP #### [facility] ([id number]) [address] [place] [address] 58634 #### 2857-1, 81038-8, 51441-3, FEPR, 2276-4 #### [facility] ([id number]) [address] [facility], [address] [place] [address] HGB A1C (GLYCO-HGB)on 2023 Glucose [Mass/Vol] 180 mg/dL Normal [facility] Comment on above: Performed By: #### C BCA, CMP #### [facility] ([id number]) [address] [place] [address] 86358 #### 2857-1, 48133-3, 27316-0, FEPR, 2276-4 #### [facility] ([id number]) [address] [facility], [address] [place] [address] HbA1c (Bld) [Mass fraction] 7.9 % High 4.4-5.6 [facility] Comment on above: Result Comment: NOTE ADA Guidelines Result HgbA1c Normal : less than 5.7 % Prediabetes : 5.7 % to 6.4 % Diabetes : > 6.4 % Use with caution in patients with abnormal hemoglobin variants as the half-life of red blood cells and in vivo glycation rates are affected. Performed By: #### C BCA, CMP #### [facility] ([id number]) [address] [place] [address] 07394 #### 2857-1, 26390-0, 28400-3, FEPR, 2276-4 #### [facility] ([id number]) [address], [address] [place] [address] Prostate specific Ag [Mass/V ol]on 09-22-2023 PSA SCREEN 0.89 ng/mL Normal 0.00-4.00 [facility] Comment on above: Result Comment: The method used for this test is Louis Riana DXI chemiluminescent immunoassay. Values obtained by different assay methods cannot be used interchangeably. Performed By: #### C BCA, CMP #### [facility] ([id number]) [address] [place] [address] 96447 #### 2857-1, 24078-3, 77952-1, FEPR, 2276-4 #### [facility] ([id number]) [address], [address] [place] [address] THYROID PROFILEon 09-22-2023 Free T4 [Mass/Vol] 1.03 ng/dL Normal 0.61-1.60 [facility] Comment on above: Performed By: #### C BCA, CMP #### [facility] ([id number]) [address] [place] [address] 47572 #### 2857-1, 45656-4, 19915-0, FEPR, 2276-4 #### [facility] ([id number]) [address], [address] [place] [address] TSH 4.47 uIU/mL Normal 0.49-4.67 [facility] Comment on above: Performed By: #### C BCA, CMP #### [facility] ([id number]) [address] [place] [address] 69202 #### 2857-1, 92700-7, 65822-6, FEPR, 2276-4 #### [facility] ([id number]) [address], [address] [place] [address] Vitamin D+Metabolites [Mass/ Vol]on 09-22-2023 VITAMIN D 25 HYD TOT 23.7 ng/mL Low 30-100 [facility] Comment on above: Result Comment: Vitamin D status 25 [place] Vitamin D Deficiency <20 ng/mL Insufficiency 20-29 ng/mL Sufficiency 30-100 ng/mL Toxicity >100 ng/mL NOTE: A pediatric reference range has not been established by the fiberglass insulation installer of this kit. The [employer] recommends a Vitamin D level of = or >20ng/mL in infants and children. Performed By: #### C GARDENIA, CMP #### [facility] ([id number]) [address] [place] [address] 47935 #### 2857-1, 93503-5, 45292-1, FEPR, 2276-4 #### [facility] ([id number]) [address] [place] [address], [address] [place] [address] CBC AND AUTO DIFFon 08-02-19 24 ABSOLUTE BASOPHIL 0.0 X10E9/L Normal 0.0-0.2 [facility] Comment on above: Performed By: #### Jerry VARNER, CMP #### [facility] ([id number]) [address] [place] [address] 69769 #### 2857-1, 24651-1, 00848-7, FEPR, 2276-4 #### [facility] ([id number]) [address] [place] [address], [address] [place] [address] ABSOLUTE NEUTROPHIL 4.4 X10E9/L Normal 1.5-6.6 [facility] Comment on above: Performed By: #### C GARDENIA, CMP #### [facility] ([id number]) [address] [place] [address] 66993 #### 2857-1, 30211-5, 96506-0, FEPR, 2276-4 #### [facility] ([id number]) [address], [address] [place] [address] Basophils/100 WBC (Bld) 0.5 % Normal [facility] Comment on above: Performed By: #### C BCA, CMP #### [facility] ([id number]) [address] [place] [address] 89698 #### 2857-1, 04387-9, 96863-7, FEPR, 6-4 #### [facility] ([id number]) [address], [address] [place] [address] Eosinophils (Bld) [#/Vol] 0.1 10*3/uL Normal 0.0-0.4 [facility] Comment on above: Performed By: #### C BCA, CMP #### [facility] ([id number]) [address] [place] [address] 82074 #### 2857-1, 64597-3, 41613-5, FEPR, 6-4 #### [facility] ([id number]) [address] [facility], [address] [place] [address] Eosinophils/100 WBC (Bld) 0.9 % Normal [facility] Comment on above: Performed By: #### C BCA, CMP #### [facility] ([id number]) [address] [place] [address] 34975 #### 2857-1, 62108-2, 30441-9, FEPR, 6-4 #### [facility] ([id number]) [address], [address] [place] [address] Erythrocyte distribution width (RBC) [Ratio] 15.7 % High 11.5-15.0 [facility] Comment on above: Performed By: #### C BCA, CMP #### [facility] ([id number]) [address] [place] [address] 18695 #### 2857-1, 27975-7, 86591-0, FEPR, 2276-4 #### [facility] ([id number]) [address], [address] [place] [address] Hematocrit (Bld) [Volume fraction] 38.3 % Low 39-49 [facility] Comment on above: Performed By: #### C BCA, CMP #### [facility] ([id number]) [address] [place] [address] 91165 #### 2857-1, 07715-6, 14778-8, FEPR, 2276-4 #### [facility] ([id number]) [address], [address] [place] [address] Hemoglobin (Bld) [Mass/Vol] 12.5 g/dL Low 13.0-17.0 [facility] Comment on above: Performed By: #### Jerry BCA, CMP #### [facility] ([id number]) [address] [place] [address] 07840 #### 2857-1, 03980-5, 91573-5, FEPR, 6-4 #### [facility] ([id number]) [address], [address] [place] [address] Lymphocytes (Bld) [#/Vol] 1.2 10*3/uL Normal 1.0-3.5 [facility] Comment on above: Performed By: #### C BCA, CMP #### [facility] ([id number]) [address] [place] [address] 07336 #### 2857-1, 65518-2, 99326-5, FEPR, 2276-4 #### [facility] ([id number]) [address], [address] [place] [address] Lymphocytes/100 WBC (Bld) 18.4 % Normal [facility] Comment on above: Performed By: #### C BCA, CMP #### [facility] ([id number]) [address] [place] [address] 35272 #### 2857-1, 36514-1, 15461-9, FEPR, 2276-4 #### [facility] ([id number]) [address], [address] [place] [address] MCH (RBC) [Entitic mass] 29.1 pg Normal 27-34 [facility] Comment on above: Performed By: #### C BCA, CMP #### [facility] ([id number]) [address] [place] [address] 51722 #### 2857-1, 94199-1, 43713-4, FEPR, 2276-4 #### [facility] ([id number]) [address], [address] [place] [address] MCHC (RBC) [Mass/Vol] 32.7 g/dL Normal 32-36 [facility] Comment on above: Performed By: #### C BCA, CMP #### [facility] ([id number]) [address] [place] [address] 76634 #### 2857-1, 66071-0, 25865-8, FEPR, 2276-4 #### [facility] ([id number]) [address], [address] [place] [address] MCV (RBC) [Entitic vol] 89 fL Normal 80-100 [facility] Comment on above: Performed By: #### C BCA, CMP #### [facility] ([id number]) [address] [place] [address] 59070 #### 2857-1, 96867-3, 97707-2, FEPR, 2276-4 #### [facility] ([id number]) [address], [address] [place] [address] Monocytes (Bld) [#/Vol] 1.0 10*3/uL High 0-0.9 [facility] Comment on above: Performed By: #### C BCA, CMP #### [facility] ([id number]) [address] [place] [address] 79439 #### 2857-1, 67308-3, 50608-0, FEPR, 2276-4 #### [facility] ([id number]) [address] [place] [address] Monocytes/100 WBC (Bld) 14.3 % Normal [facility] Comment on above: Performed By: #### C GARDENIA, CMP #### [facility] ([id number]) [address] [place] [address] 81528 #### 2857-1, 07174-2, 07895-1, FEPR, 2276-4 #### [facility] ([id number]) [address] [place] [address] Neutrophils/100 WBC (Bld) 65.9 % Normal [facility] Comment on above: Performed By: #### Jerry BCA, CMP #### [facility] ([id number]) [address] [place] [address] 78605 #### 2857-1, 08836-6, 14305-8, FEPR, 2276-4 #### [facility] ([id number]) [address] [place] [address] Platelet mean volume (Bld) [Entitic vol] 8.3 fL Normal 7-12 [facility] Comment on above: Performed By: #### C BCA, CMP #### [facility] ([id number]) [address] [place] [address] 53682 #### 2857-1, 31390-0, 91103-9, FEPR, 2276-4 #### [facility] ([id number]) [address], [address] [place] [address] Platelets (Bld) [#/Vol] 271 10*3/uL Normal 150-450 [facility] Comment on above: Performed By: #### C BCA, CMP #### [facility] ([id number]) [address] [place] [address] 08778 #### 2857-1, 06030-7, 16287-3, FEPR, 2276-4 #### [facility] ([id number]) [address] [facility], [address] [place] [address] RBC COUNT 4.31 X10E12/L Normal 4.10-5.70 [facility] Comment on above: Performed By: #### C BCA, CMP #### [facility] ([id number]) [address] [place] [address] 01365 #### 2857-1, 26440-9, 12489-6, FEPR, 2276-4 #### [facility] ([id number]) [address] [facility], [address] [place] [address] WBC (Bld) [#/Vol] 6.7 10*3/uL Normal 4.0-11.0 [facility] Comment on above: Performed By: #### C BCA, CMP #### [facility] ([id number]) [address] [place] [address] 46168 #### 2857-1, 35732-9, 41553-6, FEPR, 2276-4 #### [facility] ([id number]) [address], [address] [place] [address] COMPREHENSIVE METABOLIC PANE Alex 08-02-2023 Albumin [Mass/Vol] 3.8 g/dL Normal 3.2-5.3 [facility] Comment on above: Performed By: #### C BCA, CMP #### [facility] ([id number]) [address] [place] [address] 90781 #### 2857-1, 01888-8, 23988-1, FEPR, 2276-4 #### [facility] ([id number]) [address], [address] [place] [address] ALP [Catalytic activity/Vol] 48 U/L Normal 39-130 [facility] Comment on above: Performed By: #### C BCA, CMP #### [facility] ([id number]) [address] [place] [address] 24541 #### 2857-1, 64001-6, 11103-3, FEPR, 2276-4 #### [facility] ([id number]) [address], [address] [place] [address] ALT [Catalytic activity/Vol] 18 U/L Normal 0-40 [facility] Comment on above: Performed By: #### C BCA, CMP #### [facility] ([id number]) [address] [place] [address] 60247 #### 2857-1, 99272-2, 13906-2, FEPR, 2276-4 #### [facility] ([id number]) [address], [address] [place] [address] Anion gap [Moles/Vol] 9 mmol/L Normal 5-15 [facility] Comment on above: Performed By: #### C BCA, CMP #### [facility] ([id number]) [address] [place] [address] 34526 #### 2857-1, 50092-1, 20023-1, FEPR, 2276-4 #### [facility] ([id number]) [address], [address] [place] [address] AST [Catalytic activity/Vol] 24 U/L Normal 0-41 [facility] Comment on above: Performed By: #### C BCA, CMP #### [facility] ([id number]) [address] [place] [address] 33023 #### 2857-1, 82755-8, 87047-2, FEPR, 2276-4 #### [facility] ([id number]) [address], [address] [place] [address] Bilirubin [Mass/Vol] 0.6 mg/dL Normal 0.3-1.2 [facility] Comment on above: Performed By: #### C BCA, CMP #### [facility] ([id number]) [address] [place] [address] 92550 #### 2857-1, 11724-2, 68655-2, FEPR, 2276-4 #### [facility] ([id number]) [address], [address] [place] [address] Calcium [Mass/Vol] 9.0 mg/dL Normal 8.5-10.5 [facility] Comment on above: Performed By: #### C BCA, CMP #### [facility] ([id number]) [address] [place] [address] #### 2857-1, 46836-3, 39641-5, FEPR, 2276-4 #### [facility] ([id number]) [address], [address] [place] [address] Chloride [Moles/Vol] 98 mmol/L Normal 98-109 [facility] Comment on above: Performed By: #### C BCA, CMP #### [facility] ([id number]) [address] [place] [address] #### 2857-1, 66697-5, 39502-6, FEPR, 2276-4 #### [facility] ([id number]) [address], [address] [place] [address] CO2 [Moles/Vol] 28 mmol/L Normal 22-32 [facility] Comment on above: Performed By: #### C BCA, CMP #### [facility] ([id number]) [address] [place] [address] #### 2857-1, 61419-0, 60708-1, FEPR, 2276-4 #### [facility] ([id number]) [address], [address] [place] [address] Creatinine [Mass/Vol] 0.93 mg/dL Normal 0.70-1.20 [facility] Comment on above: Result Comment: METH OD TRACEABLE TO IDMS STANDARD Performed By: #### C BCA, CMP #### [facility] ([id number]) [address] [place] [address] #### 2857-1, 39108-6, 59643-5, FEPR, 2276-4 #### [facility] ([id number]) [address], [address] [place] [address] GFR/1.73 sq M.predicted among non-blacks MDRD (S/P/Bld) [Vol rate/Area] 89 mL/min/{1.73_m2} Normal >59 [facility] Comment on above: Result Comment: Reported eGFR is based on the CKD-EPI 2020 equation that does not use a race coefficient. Performed By: #### C BCA, CMP #### [facility] ([id number]) [address] [place] [address] #### 2857-1, 07323-8, 21690-6, FEPR, 2276-4 #### [facility] ([id number]) [address], [address] [place] [address] Glucose [Mass/Vol] 193 mg/dL High 65-99 [facility] Comment on above: Performed By: #### C BCA, CMP #### [facility] ([id number]) [address] [place] [address] #### 2857-1, 45749-2, 85965-6, FEPR, 2276-4 #### [facility] ([id number]) [address], [address] [place] [address] Potassium [Moles/Vol] 4.8 mmol/L Normal 3.5-5.0 [facility] Comment on above: Performed By: #### C BCA, CMP #### [facility] ([id number]) [address] [place] [address] #### 2857-1, 51563-0, 51906-0, FEPR, 2276-4 #### [facility] ([id number]) [address], [address] [place] [address] Protein [Mass/Vol] 7.8 g/dL Normal 6.0-8.0 [facility] Comment on above: Performed By: #### C BCA, CMP #### [facility] ([id number]) [address] [place] [address] #### 2857-1, 38037-8, 45083-1, FEPR, 2276-4 #### [facility] ([id number]) [address], [address] [place] [address] Sodium [Moles/Vol] 135 mmol/L Normal 134-146 [facility] Comment on above: Performed By: #### C BCA, CMP #### [facility] ([id number]) [address] [place] [address] #### 2857-1, 18522-3, 67756-6, FEPR, 2276-4 #### [facility] ([id number]) [address], [address] [place] [address] Urea nitrogen [Mass/Vol] 20 mg/dL Normal 5-27 [facility] Comment on above: Performed By: #### C BCA, CMP #### [facility] ([id number]) [address] [place] [address] #### 2857-1, 24513-8, 28072-8, FEPR, 2276-4 #### [facility] ([id number]) [address] [facility], [address] [place] [address] FERRITINon 08-02-2023 Ferritin [Mass/Vol] 29 ng/mL Normal 24-336 [facility] Comment on above: Performed By: #### C BCA, CMP #### [facility] ([id number]) [address] [place] [address] #### 2857-1, 58279-9, 17125-3, FEPR, 2276-4 #### [facility] ([id number]) [address] [place] [place] [address], [address] [place] [address] HCV Ab IA Qlon 08-02-2023 ANTI HCV W/PCR REFLX Non-Reactive Normal NRCT [facility] Comment on above: Result Comment: If recent infection suspected, recommend repeat testing (>2 months). Wnimgy-do-lpwdor ratio is <0.80. Performed By: #### C BCA, CMP #### [facility] ([id number]) [address] [place] [address] #### 2857-1, 56848-2, 97036-1, FEPR, 2276-4 #### [facility] ([id number]) [address] [place] [address], [address] [place] [address] HGB A1C (GLYCO-HGB)on 2023 Glucose [Mass/Vol] 189 mg/dL Normal [facility] Comment on above: Performed By: #### C BCA, CMP #### [facility] ([id number]) [address] [place] [address] #### 2857-1, 45205-8, 37188-9, FEPR, 2276-4 #### [facility] ([id number]) [address] [facility], [address] [place] [address] HbA1c (Bld) [Mass fraction] 8.2 % High 4.4-5.6 [facility] Comment on above: Result Comment: NOTE ADA Guidelines Result HgbA1c Normal : less than 5.7 % Prediabetes : 5.7 % to 6.4 % Diabetes : > 6.4 % Use with caution in patients with abnormal hemoglobin variants as the half-life of red blood cells and in vivo glycation rates are affected. Performed By: #### C BCA, CMP #### [facility] ([id number]) [address] [place] [address] #### 2857-1, 92278-3, 80424-3, FEPR, 2276-4 #### [facility] ([id number]) [address] [facility], [address] [place] [address] IRON PROFILEon 08-02-2023 Iron [Mass/Vol] 47 ug/dL Low 50-212 [facility] Comment on above: Performed By: #### C BCA, CMP #### [facility] ([id number]) [address] [place] [address] #### 2857-1, 67955-7, 94513-3, FEPR, 2276-4 #### [facility] ([id number]) [address] [facility], [address] [place] [address] IRON BINDING 379 ug/dL Normal 250-425 [facility] Comment on above: Performed By: #### C BCA, CMP #### [facility] ([id number]) [address] [place] [address] #### 2857-1, 74946-0, 99449-7, FEPR, 2276-4 #### [facility] ([id number]) [address], [address] [place] [address] IRON SATURATION 12 % SATURATION Low 20-50 [facility] Comment on above: Performed By: #### C GARDENIA, CMP #### [facility] ([id number]) [address] [place] [address] #### 2857-1, 37790-8, 44107-9, FEPR, 2276-4 #### [facility] ([id number]) [address], [address] [place] [address] Prostate specific Ag [Mass/V ol]on 08-02-2023 PSA SCREEN 0.52 ng/mL Normal 0.00-4.00 [facility] Comment on above: Result Comment: The method used for this test is [employer] DXI chemiluminescent immunoassay. Values obtained by different assay methods cannot be used interchangeably. Performed By: #### C GARDENIA, CMP #### [facility] ([id number]) [address] [place] [address] #### 2857-1, 44969-9, 39475-8, FEPR, 2276-4 #### [facility] ([id number]) [address], [address] [place] [address] Vitamin D+Metabolites [Mass/ Vol]on 08-02-2023 VITAMIN D 25 HYD TOT 19.2 ng/mL Low 30-100 [facility] Comment on above: Result Comment: Vitamin D status 25 [place] Vitamin D Deficiency <20 ng/mL Insufficiency 20-29 ng/mL Sufficiency 30-100 ng/mL Toxicity >100 ng/mL NOTE: A pediatric reference range has not been established by the fiberglass insulation installer of this kit. The [employer] recommends a Vitamin D level of = or >20ng/mL in infants and children. Performed By: #### C BCA, [facility] #### [facility] ([id number]) [address] [facility], [place] [address] #### 2857-1, 52490-4, 86647-0, FEPR, 2276-4 #### [facility] ([id number]) [address] [facility], [address] [place] [address] Vital Signs Date Time Vital Sign Value Performing Clinician Facility 05-23-2024 11:55-0500 Diastolic blood pressure 73 mm[Hg] [facility]ebeto LEON [facility] 05-23-2024 11:55-0500 Heart rate 71 /min Bebeto LEON [facility] 05-23-2024 11:55-0500 Respiratory rate 20 /min Bebeto LEON [facility] 05-23-2024 11:55-0500 SaO2% (BldA) [Mass fraction] 100 % Bebeto LEON Work Phone: [facility] 05-23-2024 11:55-0500 Systolic blood pressure 145 mm[Hg] Bebeto LEON Work Phone: [email or web address] [facility] 04-09-2024 10:12-0400 Body height 175.3 cm Bebeto LEON [facility]: [facility] Comment on above: stated 04-09-2024 10:12-0400 Body mass index (BMI) [Ratio] 27.62 kg/m2 Bebeto LEON Work Phone: [facility] 04-09-2024 10:12-0400 Body weight 84.82 kg Bebeto LEON Work Phone: [email or web address] [facility] 04-09-2024 10:12-0400 Diastolic blood pressure 97 mm[Hg] Bebeto LEON Work Phone: [facility] 04-09-2024 10:12-0400 Heart rate 63 /min Bebeto LEON Work Phone: [facility] 04-09-2024 10:12-0400 Respiratory rate 16 /min Bebeto LEON Work Phone: [facility] 04-09-2024 10:12-0400 SaO2% (BldA) [Mass fraction] 100 % Bebeto LEON Work Phone: [facility] 04-09-2024 10:12-0400 Systolic blood pressure 141 mm[Hg] Bebeto LEON Work Phone: [facility] Encounters Encounter Date Encounter Type Care Provider Facility Start: 07-22-2024 End: 07-22-2024 ambulatory MARIANA Liu [facility] Start: 07-12-2024 End: 07-22-2024 Refill Liliana Rivera REFUSE COLLECTOR 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-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 MILLWRIGHT Work Phone: [facility] Comment on above: Med Change Request Start: 05-23-2024 End: 05-23-2024 Refill Bebeto Espino REFUSE COLLECTOR SUPERVISOR-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 MILLWRIGHT Work Phone: [facility] Comment on above: Med Refill Start: 05-23-2024 End: 05-23-2024 Office outpatient visit 15 minutes Bebeto LEON Work Phone: [facility] Comment on above: Lumbosacral 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 (Primary Dx) Start: 05-23-2024 End: 05-23-2024 ambulatory BEBETO HQA [facility] Start: 05-09-2024 End: 05-09-2024 ambulatory IZZY SAM [facility] Start: 05-03-2024 End: 05-03-2024 ambulatory NAY HYDE [facility] Start: 04-16-2024 End: 04-16-2024 Emergency department patient visit [facility] Start: 04-09-2024 End: 04-09-2024 Office outpatient visit 25 minutes Bebeto LEON Work Phone: [facility] Comment on above: Lumbosacral 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 (Primary Dx) Start: 04-09-2024 End: 04-09-2024 ambulatory [facility] Start: 04-01-2024 End: 04-01-2024 ambulatory [facility] Start: 02-22-2024 End: 02-22-2024 ambulatory [facility] Start: 01-09-2024 End: 01-09-2024 ambulatory [facility] Start: 12-26-2023 End: 12-27-2023 Emergency department patient visit DIVYA Valera CHEMARIA E [facility] Start: 09-22-2023 End: 09-22-2023 ambulatory [facility] Start: 08-02-2023 End: 08-02-2023 ambulatory [facility] Start: 11-14-2022 End: 11-15-2022 ambulatory MARIANA Liu [facility] Facility:H1 Start: 10-24-2022 End: 10-25-2022 ambulatory MARIANA Liu [facility] Facility:H1 Start: 10-03-2022 End: 10-04-2022 ambulatory MARIANA Liu [facility] Facility:H1 Start: 09-12-2022 End: 09-13-2022 ambulatory CHET SHANTANU Facility:H1 Start: 08-23-2022 End: 08-24-2022 ambulatory MARIANA Liu [facility] Facility:H1 Start: 08-16-2022 End: 08-17-2022 ambulatory MARIANA Liu [facility] Facility:H1 Start: 08-09-2022 End: 08-10-2022 [facility] Procedures Date Procedure Procedure Detail Performing Clinician Start: 04-06-2023 Microalbumin [Mass/v olume] in Urine by Test strip Bebeto LEON Work Phone: Plan of Treatment Date Care Activity Detail Author Start: 05-23-2025 Tobacco Screening Tobacco Screening [facility] Start: 04-16-2025 Adult BMI Screening Adult BMI Screen ing [facility] Start: 04-09-2025 Adult BMI Screening Adult BMI Screen ing [facility] Start: 04-09-2025 Tobacco Screening Tobacco Screening [facility] Start: 07-24-2024 End: 07-24-2024 Clinical Support [facility] Start: 07-04-2024 End: 07-04-2024 Patient encounter procedure 07/04/2024 10:00 AM EST Office Visit [facility] [address] [place] [address] Bebeto Haq PA [address] [place] [address] [facility] Start: 05-23-2024 End: 05-23-2024 Patient encounter procedure 05/23/2024 12:45 PM EST Office Visit [facility] [address] [place] [address] Bebeto Haq PA [address] [place] [address] [facility] Start: 05-03-2024 End: 05-03-2024 Admission to same day surgery center 05/03/2024 8:58 AM EDT - 05/03/2024 9:06 AM EDT Surgery [facility] [address] [place] [address] Nay Hyde MD [address] [place] [address] INJECTION BLOCK NERVE MEDIAL BRANCH: bilat L45 51 [93355 (CPT )] [facility] Comment on above: INJECTION BLOCK NERV E MEDIAL BRANCH: bilat L45 51 [13403 (CPT )] Start: 05-03-2024 End: 05-03-2024 Njx dx/ther agt pvrt facet jt lmbr/sac 1 level INJECTION BLOCK NERVE MEDIAL BRANCH Lumbosacral spondylosis without myelopathy 05/03/2024 8:58 AM EDT [facility] Start: 05-03-2024 Subsequent hospital visit by physician 05/03/2024 8:58 AM EDT Hospital Encounter [facility] [address] [place] [id number] Nay Hyde MD [address] [place], [place] [id number] [facility] Start: 04-06-2024 Urine screening for protein Urine Microalbumin [facility] Start: 03-03-2024 COVID-19 Vaccine ( season) COVID-19 Vaccine ( season) [facility] Start: 03-03-2024 COVID-19 Vaccine ( season) COVID-19 Vaccine ( season) [facility] Start: 03-03-2024 Influenza vaccination Influenza Vacc ine [facility] Start: 2019 Abdominal aortic aneurysm screening Abdominal Aortic Aneurysm (AAA) Screen [facility] Start: 2019 Fall Risk Screening Fall Risk Screen ing [facility] Start: 2004 Administration of varicella zoster vaccine Zoster (Shingles) Vaccine (1 of 2) [facility] Start: 1973 DTaP,Tdap and Td Vaccines (1 - Tdap) DTaP,Tdap and Td Vaccines (1 - Tdap) [facility] Start: 1972 Adult BMI Follow Up Plan Adult BMI Follow Up Plan [facility] Start: 1972 Diabetic foot examination Diabetic Foot Exam [facility] Start: 1966 Depression Screening Depression Scre ening [facility] Start: 1954 Glaucoma screening Diabetic Op hthalmology Exam [facility] Start: 1954 Medicare Annual Well ness Visit Medicare Annual Well[facility] Immunizations Immunization Date Immunization Notes Care Provider Fa ron 04-11-2023 influenza virus vaccine, unspecified formulation Bebeto LEON Work Phone: [facility] 04-19-2021 influenza, injectabl e, quadrivalent, preservative free Bebeto LEON Work Phone: [facility] 05-18-2018 Influenza, injectabl e, Madin Kristina Canine Kidney, preservative free, quadrivalent Bebeto LEON Work Phone: [facility] 05-10-2017 influenza, seasonal, injectable, preservative free Bebeto LEON Work Phone: [facility] 03-25-2015 influenza, seasonal, injectable, preservative free Bebeto LEON Work Phone: [facility] 04-15-2014 influenza, seasonal, injectable Bebeto LEON Work Phone: [facility] Payers Date Payer Category Payer Medicaid [id number] 1992 Medicare [id number] 1959 Medicaid [id number] 1959 Medicare [id number] 1954 Unknown [id number] 2.16.84 0.1.411070.3.579.2.593 1954 Unknown [id number] 2.16.84 0.1.162316.3.579.2.593 1954 Unknown [id number] 2.16.84 0.1.604150.3.579.2.593 1954 Unknown [id number] 2.16.84 0.1.018794.3.579.2.593 1954 Unknown [id number] 2.16.84 0.1.498497.3.579.2.593 1954 Unknown [id number] 2.16.84 0.1.464628.3.579.2.593 1954 Unknown [id number] 2.16.84 0.1.135993.3.579.2.593 1954 Unknown [id number] 2.16. 840.1.470865.3.579.2.1286 1954 Unknown [id number] 2.16.8 40.1.273252.3.579.2.128 1954 Unknown [id number] 2.16.8 40.1.585734.3.579.2.1286 1954 Unknown [id number] 2.16.8 40.1.322283.3.579.2.128 1954 Unknown [id number] 2.16.8 40.1.426116.3.579.2.1286 1954 Unknown [id number] 2.16.8 40.1.524051.3.579.2.1285 1954 Unknown [id number] 2.16.8 40.1.095243.3.579.2.1286 1954 Unknown [id number] 2.16.8 40.1.852806.3.579.2.1285 1954 Unknown [id number] 2.16.8 40.1.661621.3.579.2.128 1954 Unknown [id number] 2.16.8 40.1.326798.3.579.2.1285 1954 Unknown [id number] 2.16.8 40.1.521256.3.579.2.128 1954 Unknown [id number] 2.16.8 40.1.045326.3.579.2.1285 1954 Unknown [id number] 2.16.8 40.1.162311.3.579.2.1286 1954 Unknown [id number] 2.16.8 40.1.033519.3.579.2.1286 1954 Unknown [id number] 2.16.8 40.1.287265.3.579.2.1286 Social History Date Type Detail Facility Start: [facility]-09-2024 [facility] History of tobacco use Current smoker [facility] History of tobacco use Cigarette Smoker P [facility] Start: 01-09-2024 Tobacco use and exposure Smokeless tobacco non-user [facility] Start: 04-09-2024 End: 05-23-2024 Alcoholic beverage intake Current non-drinker of alcohol (finding) [facility] Start: 07-18-2020 End: 04-09-2024 History of Social function [facility] Start: 07-18-2020 End: 04-09-2024 Tobacco use panel [facility] Childcare Unknown [facility] Start: 1955 Sex assigned at Not on file P [facility] Start: 02-05-2015 Sex Male (finding) [facility] Medical Equipment Procedure Code Equipment Code Equipment Origin al Text Equipment Identifier Dates Ld Pcng 55cm Rv Sq Scr S Df-4 - [id number] - [id number] Start: 11-20-2018 Lead Capsure Fix [employer] 5076-45 - [id number] - [id number] Start: 11-20-2018 Lead Capsure Fix [employer] 5076-52 - [id number] - [id number] Start: 07-21-2020 Dfbr Crd Evera M ri Xt - [id number] - [id number] Start: 11-20-2018 Sys Crd Rvl Linq Rpl [id number] - [id number] - [id number] Start: 11-16-2018 Start: 01-20-2018 Goals Date Patient Goal Desired Activity /State Personal health goal Comment on above: Formatting of this n ote might be different from the original. Evaluation of progress towards goal: discharge home with christianity/friends support. Personal health goal Comment on above: Formatting of this n ote might be different from the original. Evaluation of progress towards goal: plan home self care Personal health goal Comment on above: Formatting of this n ote might be different from the original. Evaluation of progress towards goal: Patient likely will discharge to a SNF Clinical Notes 08-09-2022 to 07-12-2024 Telephone Encounter - Shannan Castellanos LPN - 07/12/2024 9:31 AM ESTTelephone Encounter - Shannan Castellanos LPN - 07/12/2024 9:31 AM EDWARD Funez - 05/23/2024 12:45 PM ESTPatient Instructions Note Date & Type Note Facility 07-12-2024 Miscellaneous Notes [facility] 03/08/23 Pt has future appt 07/24/24 documented in this encounter [facility] 07-12-2024 Telephone encounter Note [facility] 03/08/23 Pt has future appt 07/24/24 [facility] 05-23-2024 History of Present illness Narrative [facility] [address] [place] [address] Patient: Radha Quiñones Sex: male : 1955 Age: 69 y.o. PCP: [facility] Nathaniel 05/23/2024 Radha Quiñones is here for a(n) post procedure follow [...] Past Medical History: Diagnosis Date Angina pectoris ([facility]) Arrhythmia Atrial fibrillation ([facility] Atrial flutter ([facility]) Atrial flutter ([facility] Benign prostatic hyperplasia BPH with urinary obstruction Cancer ([facility]) skin cancer Cataract Constipation Coronary artery disease Dental disease no teeth Diabetes mellitus ([facility]) Diabetes mellitus type 2, controlled ([facility]) Hypercholesterolemia Hypertension Myositis Peripheral neuropathy Rash Scalp wound Urinary incontinence Ventricular tachycardia ([facility]) Visual impairment glasses Past Surgical History: Procedure Laterality Date 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; excision and debridement Left 10/29/2021 Performed by Ambrosio Al MD at [facility] AMPUTATION TOE 4TH & 5TH/WIDE INCISIONAL DEBRIDEMENT LEFT DIABETIC FOOT NECROTIZING FASCITIS Left 08/12/2021 Performed by Ambrosio Al MD at [facility] CARDIAC DEFIBRILLATOR PLACEMENT [employer] CATARACT EXTRACTION Coronary angiogram and left ventricular gram/pressure N/A 11/19/2018 Performed by Sage Jay MD at [facility]ATH [facility] Coronary fractional flow reserve N/A 11/19/2018 Performed by Sage Jay MD at [facility]ATH [facility] CYSTOSCOPY [facility] SOLUTION N/A 10/27/2021 Performed by Frederic Thorne MD at [facility] DC ICD RA lead replace - MDT N/A 07/21/2020 Performed by Yoni Espinoza MD at [facility] (EP) EP - Device DC ICD Left 11/20/2018 Performed by Shayna Betancourt MD at [facility] (EP) EP - Diagnostic-- EP study Right 11/16/2018 Performed by Rafita Garcia MD at [facility] (EP) INJECTION BLOCK NERVE MEDIAL BRANCH: bilat L 4/, 10/31 Bilateral 05/03/2024 Performed by Nay Hyde MD at [facility] Loop recorder implant N/A 11/16/2018 Performed by Rafita Garcia MD at [facility] (EP) Loop recorder removal N/A 07/21/2020 Performed by Yoni Espinoza MD at [facility] (EP) SKIN CANCER EXCISION No Known [...] Safety: Unknown (08/24/2023) Received from [facility] Safety & Environment Fear of [...] is negative Gait is antalgic. Assessment/Treatment Plan: Radha was [...] BENAVIDES by Caridad Wallis RN. Provider Statement: I, EDWARD BENAVIDES, personally performed the services described in the documentation, as scribed by Caridad Wallis RN in my presence, and it is both accurate and complete. Caridad Wallis RN 05/23/24 1244 EDWARD Benavides 05/23/24 1349 documented in this encounter [facility] 05-23-2024 Miscellaneous Notes Last OV 03/08/23. Letter sent to pt 02/23. Attempted to call pt, no VM box set up. Letter sent. Pt will need appointment for future refills. documented in this encounter [facility] 05-23-2024 Telephone encounter Note Last OV 03/08/23. Letter sent to pt 02/23. Attempted to call pt, no VM box set up. Letter sent. Pt will need appointment for future refills. [facility] 04-09-2024 History of Present illness Narrative [facility] [address] [place] [address] Patient: Radha Quiñones Sex: male : 1955 Age: 68 y.o. PCP: CAYDEN Armstrong 04/09/2024 Radha Quiñones is here for a(n) [...] Past Medical History: Diagnosis Date Angina pectoris (CMS-HCC) Arrhythmia Atrial fibrillation ([facility] Atrial flutter ([facility] Atrial flutter ([facility]) Benign prostatic hyperplasia BPH with urinary obstruction Cancer ([facility]) skin cancer Cataract Constipation Coronary artery disease Dental disease no teeth Diabetes mellitus ([facility]) Diabetes mellitus type 2, controlled ([facility]) Hypercholesterolemia Hypertension Myositis Peripheral neuropathy Rash Scalp wound Urinary incontinence Ventricular tachycardia ([facility]) Visual impairment glasses Past Surgical History: Procedure Laterality Date 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; excision and debridement Left 10/29/2021 Performed by Ambrosio Al MD at [facility] AMPUTATION TOE 4TH & 5TH/WIDE INCISIONAL DEBRIDEMENT LEFT DIABETIC FOOT NECROTIZING FASCITIS Left 08/12/2021 Performed by Ambrosio Al MD at [facility] CARDIAC DEFIBRILLATOR PLACEMENT [employer] CATARACT EXTRACTION Coronary angiogram and left ventricular gram/pressure N/A 11/19/2018 Performed by Sage aJy MD at [facility]ATH [facility] Coronary fractional flow reserve N/A 11/19/2018 Performed by Sage Jay MD at [facility]ATH [facility] CYSTOSCOPY [facility] SOLUTION N/A 10/27/2021 Performed by Frederic Thorne MD at [facility] DC ICD RA lead replace - MDT N/A 07/21/2020 Performed by Yoni Espinoza MD at [facility] (EP) EP - Device DC ICD Left 11/20/2018 Performed by Shayna Betancourt MD at [facility] (EP) EP - Diagnostic-- EP study Right 11/16/2018 Performed by Rafita Garcia MD at [facility] (EP) Loop recorder implant N/A 11/16/2018 Performed by Rafita Garcia MD at [facility] (EP) Loop recorder removal N/A 07/21/2020 Performed by Yoni Espinoza MD at [facility] (EP) SKIN CANCER EXCISION No Known [...] Safety: Unknown (08/24/2023) Received from [facility] Safety & Environment Fear of [...] these patients; however, close collaboration with a motion graphics designer or state epidemiologist is recommended before initiating the RFN procedure, therefore prior to RFA we will consult with patient's motion graphics designer/state epidemiologist for approval and recommendations to proceed with [...] Benavides 04/11/24 1226 documented in this encounter [facility] [employer] 04-09-2024 Instructions Chula Bonilla CNA - 04/09/2024 [...] nearest emergency room. documented in this encounter [facility] [facility] Note PROCEDURE: XR FOOT L T [...] DON Date: 2022-08-09 15:44 [facility] Evaluation note Diagnosis Lumbosacral spondylosis without myelopathy- Primary Lumbosacral spondylosis without myelopathy- Primary Lumbosacral spondylosis without myelopathy documented in this encounter [facility]* Diagnosis Enuresis- Primary Functional urinary [...] Paroxysmal ventricular tachycardia documented in this encounter [facility] Enuresis- Primary Functional urinary incontinence BPH (benign prostatic hypertrophy) with urinary obstruction- Primary Hypertrophy of prostate with urinary obstruction and other lower urinary tract symptoms (LUTS) Benign prostatic hyperplasia with urinary obstruction- Primary Urinary retention- Primary Unspecified retention of urine Benign prostatic hyperplasia with urinary obstruction Lumbosacral spondylosis without myelopathy- Primary documented [facility] Diagnosis Enuresis- Primary Functional urinary incontinence BPH (benign prostatic hypertrophy) with urinary obstruction- Primary Hypertrophy of prostate with urinary obstruction and other lower urinary tract symptoms (LUTS) Benign prostatic hyperplasia with urinary obstruction- Primary Urinary retention- Primary Unspecified retention of urine Benign prostatic hyperplasia with urinary obstruction Ventricular tachycardia (CMS-HCC) Paroxysmal ventricular tachycardia Atrial fibrillation with RVR ([facility]-H[facility]) V-tach ([facility]) Paroxysmal ventricular tachycardia documented in this [facility]ructionsNot on filedocumented in this encounter [facility] SystemInstructionsNot on filedocumented in this encounter [facility] Summary Purpose Family History No Family [...] [facility] [address] [place] [address] Referral ID Status Reason Start Date Expiration Date V isits Requested Visits Authorized [id number] Pending Review 04/09/2024 04/09/2025 1 1 Additional Source Comments (unrecognized sect ion and content) No Status Records FoundNo Status Records Found INFORMATION SOURCE (unrecogn ized section and content) DATE CREATED AUTHOR 11/16/2022 [facility] Nesb[facility] pitrichard DATE CREATED AUTHOR AUTHOR'S ORGANLISSY ATMEI 07/24/2024 [facility] Reason for Visit (unrecogniz ed section and content) Reason Comments Back Pain Reason Comments Med Refill Reason Comments Back Pain Reason Comments Med Change Request Care Teams (unrecognized sec tion and content) Circuit Clerk Relationship Specialty Start Date End Date Services[address] [place] P[place] - General Family Medicine 12/26/23 Circuit Clerk Relationship Specialty Start Date End Date [place] [address] [place] PCP - General Family Medicine 04/16/24 Circuit Clerk Relationship Specialty Start Date End Date [place] [address] [place] - General Family Medicine 04/16/24 Circuit Clerk Relationship Specialty Start Date End Date [place] [address] [place] P[place] - General Family Medicine 04/16/24 [...] BE BASED ON THE PRIMARY CLINICAL RECORDS. [facility]. provides no warranty or guarantee of the accuracy or completeness of information in this document.
== END 2024-07-31 13:00 | disposition home or self-care (01) ==
PROVIDERS: Visit Provider Podiatrist Foot & Ankle Surgery
DX: M86.672 Other chronic osteomyelitis, left ankle and foot (principal)
CPT/HCPCS: 73700

== ENCOUNTER 2024-07-31 13:31 | Outpatient (OUT) | payer MEDICARE, MEDICAID, SELFPAY ==
--- OUTSIDE RECORDS SUMMARY | 2024-07-31 13:44 | XMS_ITS | CCD ---
Author Organization [facility] Care Team Providers Care Sas Programmer Name Role Phone MARIANA PHILLIPS Attending Unavailable [...] [employer] Unavailable CARMENANDERMARIANA Attending Unavailable Services, [facility], [facility] Primary Care Provider IZZY SAM Referring Unavailable IZZY SAM Primary Care Unavailable DIVYA GONZALES Attending Unavailable SERVICES, [facility] [...] [facility] Primary Care Unava ilable SERVICES, [facility] Primary Care Unava ilable DIVYA GONZALES Attending Unavailable NAY HYDE Admitting Unavailable NAY HYDE Attending Unavailable NAY HYDE Referring Unavailable NAY HYDE Attending Unavailable NAY HYDE Referring Unavailable SERVICES, [facility] IZZY SAM Referring Unavailable SERVICES, [facility] BEBETO HAQ Attending Unavailable NAY HYDE Referring Unavailable SERVICES, [facility] MARIANA PHILLIPS Referring Unavailable SERVICES, [facility] IZZY SAM Referring Unavailable IZZY SAM Primary [...] under the skin nightly. Active lactobacillus acidophilus [id number] unt / pectin 10 mg oral capsule [...] Coronary atherosclerosis; 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: [Atherosclerotic heart disease of cheesh-na coronary artery without angina pectoris] Onset: 12-04-2018 [...] 07-22-19 ABSOLUTE BASOPHIL 0.0 X10E9/L Normal 0.0-0.2 [facility] Comment on above: Performed By: #### C BCA, CMP #### [facility] ([id number]) [address] [place] [address] 43256 #### 2857-1, 34932-1, 35707-6, FEPR, 2276-4 #### [facility] ([id number]) [address] [facility], [address] [place] [address] ABSOLUTE NEUTROPHIL 3.8 X10E9/L Normal 1.5-6.6 [facility] Comment on above: Performed By: #### C BCA, CMP #### [facility] ([id number]) [address] [place] [address] 51925 #### 2857-1, 23293-3, 03138-8, FEPR, 2276-4 #### [facility] ([id number]) [address] [facility], [address] [place] [address] Basophils/100 WBC (Bld) 0.8 % Normal [facility] Comment on above: Performed By: #### C BCA, CMP #### [facility] ([id number]) [address] [place] [address] 78897 #### 2857-1, 06988-0, 73589-6, FEPR, 2276-4 #### [facility] ([id number]) [address] [facility], [address] [place] [address] Eosinophils (Bld) [#/Vol] 0.0 10*3/uL Normal 0.0-0.4 [facility] Comment on above: Performed By: #### C BCA, CMP #### [facility] ([id number]) [address] [place] [address] 18826 #### 2857-1, 85674-3, 87735-6, FEPR, 2276-4 #### [facility] ([id number]) [address] [facility], [address] [place] [address] Eosinophils/100 WBC (Bld) 0.7 % Normal [facility] Comment on above: Performed By: #### C GARDENIA, CMP #### [facility] ([id number]) [address] [place] [address] 52763 #### 2857-1, 82281-3, 98568-6, FEPR, 2276-4 #### [facility] ([id number]) [address] [facility], [address] [place] [address] Erythrocyte distribution width (RBC) [Ratio] 14.6 % Normal 11.5-15.0 [facility] Comment on above: Performed By: #### C GARDENIA, CMP #### [facility] ([id number]) [address] [place] [address] 84996 #### 2857-1, 92109-1, 18005-8, FEPR, 2276-4 #### [facility] ([id number]) [address], [address] [place] [address] Hematocrit (Bld) [Volume fraction] 42.0 % Normal 39-49 [facility] Comment on above: Performed By: #### C BCA, CMP #### [facility] ([id number]) [address] [place] [address] 58185 #### 2857-1, 88616-5, 06970-5, FEPR, 2276-4 #### [facility] ([id number]) [address], [address] [place] [address] Hemoglobin (Bld) [Mass/Vol] 13.9 g/dL Normal 13.0-17.0 [facility] Comment on above: Performed By: #### C BCA, CMP #### [facility] ([id number]) [address] [place] [address] 97227 #### 2857-1, 16053-1, 37291-7, FEPR, 2276-4 #### [facility] ([id number]) [address] [facility], [address] [place] [address] Lymphocytes (Bld) [#/Vol] 1.5 10*3/uL Normal 1.0-3.5 [facility] Comment on above: Performed By: #### C BCA, CMP #### [facility] ([id number]) [address] [place] [address] 26511 #### 2857-1, 27099-0, 09625-5, FEPR, 2276-4 #### [facility] ([id number]) [address], [address] [place] [address] Lymphocytes/100 WBC (Bld) 24.7 % Normal [facility] Comment on above: Performed By: #### C BCA, CMP #### [facility] ([id number]) [address] [place] [address] 03156 #### 2857-1, 43977-4, 99116-4, FEPR, 2276-4 #### [facility] ([id number]) [address], [address] [place] [address] MCH (RBC) [Entitic mass] 30.7 pg Normal 27-34 [facility] Comment on above: Performed By: #### C BCA, CMP #### [facility] ([id number]) [address] [place] [address] 72447 #### 2857-1, 35979-0, 78346-7, FEPR, 2276-4 #### [facility] ([id number]) [address], [address] [place] [address] MCHC (RBC) [Mass/Vol] 33.0 g/dL Normal 32-36 [facility] Comment on above: Performed By: #### C BCA, CMP #### [facility] ([id number]) [address] [place] [address] 58510 #### 2857-1, 10182-4, 53890-8, FEPR, 6-4 #### [facility] ([id number]) [address], [address] [place] [address] MCV (RBC) [Entitic vol] 93 fL Normal 80-100 [facility] Comment on above: Performed By: #### C BCA, CMP #### [facility] ([id number]) [address] [place] [address] 53368 #### 2857-1, 97418-9, 41045-6, FEPR, 2275-4 #### [facility] ([id number]) [address], [address] [place] [address] Monocytes (Bld) [#/Vol] 0.6 10*3/uL Normal 0-0.9 [facility] Comment on above: Performed By: #### C BCA, CMP #### [facility] ([id number]) [address] [place] [address] 15252 #### 2857-1, 46859-6, 80788-2, FEPR, 2276-4 #### [facility] ([id number]) [address], [address] [place] [address] Monocytes/100 WBC (Bld) 9.7 % Normal [facility] Comment on above: Performed By: #### C BCA, CMP #### [facility] ([id number]) [address] [place] [address] 07942 #### 2857-1, 39162-1, 33406-3, FEPR, 2276-4 #### [facility] ([id number]) [address], [address] [place] [address] Neutrophils/100 WBC (Bld) 64.1 % Normal [facility] Comment on above: Performed By: #### C BCA, CMP #### [facility] ([id number]) [address] [place] [address] 31581 #### 2857-1, 05068-0, 72965-2, FEPR, 2276-4 #### [facility] ([id number]) [address], [address] [place] [address] Platelet mean volume (Bld) [Entitic vol] 8.2 fL Normal 7-12 [facility] Comment on above: Performed By: #### C BCA, CMP #### [facility] ([id number]) [address] [place] [address] 63016 #### 2857-1, 01949-0, 65266-7, FEPR, 2276-4 #### [facility] ([id number]) [address], [address] [place] [address] Platelets (Bld) [#/Vol] 315 10*3/uL Normal 150-450 [facility] Comment on above: Performed By: #### C BCA, CMP #### [facility] ([id number]) [address] [place] [address] 93708 #### 2857-1, 06263-6, 18282-1, FEPR, 2276-4 #### [facility] ([id number]) [address], [address] [place] [address] RBC COUNT 4.52 X10E12/L Normal 4.10-5.70 [facility] Comment on above: Performed By: #### C BCA, CMP #### [facility] ([id number]) [address] [place] [address] 08474 #### 2857-1, 64247-7, 42590-9, FEPR, 2276-4 #### [facility] ([id number]) [address], [address] [place] [address] WBC (Bld) [#/Vol] 5.9 10*3/uL Normal 4.0-11.0 [facility] Comment on above: Performed By: #### C BCA, CMP #### [facility] ([id number]) [address] [place] [address] 68539 #### 2857-1, 06173-6, 46414-4, FEPR, 2276-4 #### [facility] ([id number]) [address], [address] [place] [address] CRP [Mass/Vol]on 07-22-2024 C REACTIVE PROTEIN 1.9 mg/dL High 0.000-0.744 [facility] Comment on above: Performed By: #### C BCA, CMP #### [facility] ([id number]) [address] [place] [address] 48387 #### 2857-1, 11071-2, 93332-1, FEPR, 2276-4 #### [facility] ([id number]) [address], [address] [place] [address] ESR Photometric method (Bld) [Velocity]on 07-22-2024 ESR, ERYTHROCYTE SEDIMENTATION RATE 47 mm/h High 0-20 [facility] Comment on above: Performed By: #### C BCA, CMP #### [facility] ([id number]) [address] [place] [address] 32204 #### 2857-1, 96710-1, 76834-8, FEPR, 2276-4 #### [facility] ([id number]) [address] [place] [address], [address] [place] [address] HGB A1C (GLYCO-HGB)on 2024 Glucose [Mass/Vol] 203 mg/dL Normal [facility] Comment on above: Performed By: #### C BCA, CMP #### [facility] ([id number]) [address] [place] [address] 58393 #### 2857-1, 51402-6, 24508-2, FEPR, 2276-4 #### [facility] ([id number]) [address] [place] [address], [address] [address] HbA1c (Bld) [Mass fraction] 8.7 % High 4.4-5.6 [facility] Comment on above: Result Comment: NOTE ADA Guidelines Result HgbA1c Normal : less than 5.7 % Prediabetes : 5.7 % to 6.4 % Diabetes : > 6.4 % Use with caution in patients with abnormal hemoglobin variants as the half-life of red blood cells and in vivo glycation rates are affected. Performed By: #### C BCA, CMP #### [facility] ([id number]) [address] [place] [address] 43231 #### 2857-1, 77822-2, 95822-5, FEPR, 2276-4 #### [facility] ([id number]) [address] [place] [address], [address] [place] [address] COMPREHENSIVE METABOLIC PANE Alex 05-09-2024 Albumin [Mass/Vol] 4.2 g/dL Normal 3.2-5.3 [facility] Comment on above: Performed By: #### C BCA, CMP #### [facility] ([id number]) [address] [place] [address] 40208 #### 2857-1, 00634-9, 50480-3, FEPR, 2276-4 #### [facility] ([id number]) [address], [address] [place] [address] ALP [Catalytic activity/Vol] 46 U/L Normal 39-130 [facility] Comment on above: Performed By: #### C BCA, CMP #### [facility] ([id number]) [address] [place] [address] 86050 #### 2857-1, 37849-5, 42017-6, FEPR, 2276-4 #### [facility] ([id number]) [address], [address] [place] [address] ALT [Catalytic activity/Vol] 16 U/L Normal 0-40 [facility] Comment on above: Performed By: #### C BCA, CMP #### [facility] ([id number]) [address] [place] [address] 27961 #### 2857-1, 26082-4, 87208-9, FEPR, 2276-4 #### [facility] ([id number]) [address], [address] [place] [address] Anion gap [Moles/Vol] 10 mmol/L Normal 5-15 [facility] Comment on above: Performed By: #### C BCA, CMP #### [facility] ([id number]) [address] [place] [address] 52991 #### 2857-1, 15377-0, 12503-0, FEPR, 2276-4 #### [facility] ([id number]) [address], [address] [place] [address] AST [Catalytic activity/Vol] 16 U/L Normal 0-41 [facility] Comment on above: Performed By: #### C BCA, CMP #### [facility] ([id number]) [address] [place] [address] 97565 #### 2857-1, 30790-8, 29570-1, FEPR, 2276-4 #### [facility] ([id number]) [address], [address] [place] [address] Bilirubin [Mass/Vol] 0.5 mg/dL Normal 0.3-1.2 [facility] Comment on above: Performed By: #### C BCA, CMP #### [facility] ([id number]) [address] [place] [address] 98704 #### 2857-1, 19390-3, 58511-1, FEPR, 2276-4 #### [facility] ([id number]) [address] [facility], [address] [place] [address] Calcium [Mass/Vol] 9.3 mg/dL Normal 8.5-10.5 [facility] Comment on above: Performed By: #### C BCA, CMP #### [facility] ([id number]) [address] [place] [address] 99014 #### 2857-1, 16560-1, 17168-4, FEPR, 2276-4 #### [facility] ([id number]) [address], [address] [place] [address] Chloride [Moles/Vol] 99 mmol/L Normal 98-109 [facility] Comment on above: Performed By: #### C BCA, CMP #### [facility] ([id number]) [address] [place] [address] 07636 #### 2857-1, 39266-2, 18755-3, FEPR, 2276-4 #### [facility] ([id number]) [address], [address] [place] [address] CO2 [Moles/Vol] 26 mmol/L Normal 22-32 [facility] Comment on above: Performed By: #### C BCA, CMP #### [facility] ([id number]) [address] [place] [address] 91646 #### 2857-1, 34817-7, 95287-5, FEPR, 2276-4 #### [facility] ([id number]) [address], [address] [place] [address] Creatinine [Mass/Vol] 1.27 mg/dL High 0.70-1.20 [facility] Comment on above: Result Comment: METH OD TRACEABLE TO IDMS STANDARD Performed By: #### C BCA, CMP #### [facility] ([id number]) [address] [place] [address] 18746 #### 2857-1, 72530-6, 65803-7, FEPR, 2276-4 #### [facility] ([id number]) [address], [address] [place] [address] GFR/1.73 sq M.predicted among non-blacks MDRD (S/P/Bld) [Vol rate/Area] 61 mL/min/{1.73_m2} Normal >59 [facility] Comment on above: Result Comment: Reported eGFR is based on the CKD-EPI 2020 equation that does not use a race coefficient. Performed By: #### C BCA, CMP #### [facility] ([id number]) [address] [place] [address] 11459 #### 2857-1, 53314-8, 39179-1, FEPR, 2276-4 #### [facility] ([id number]) [address], [address] [place] [address] Glucose [Mass/Vol] 177 mg/dL High 65-99 [facility] Comment on above: Performed By: #### C BCA, CMP #### [facility] ([id number]) [address] [place] [address] 48756 #### 2857-1, 13408-1, 74095-0, FEPR, 2276-4 #### [facility] ([id number]) [address], [address] [place] [address] Potassium [Moles/Vol] 4.5 mmol/L Normal 3.5-5.0 [facility] Comment on above: Performed By: #### C BCA, CMP #### [facility] ([id number]) [address] [place] [address] 67592 #### 2857-1, 50472-3, 13909-4, FEPR, 2276-4 #### [facility] ([id number]) [address], [address] [place] [address] Protein [Mass/Vol] 7.6 g/dL Normal 6.0-8.0 [facility] Comment on above: Performed By: #### C BCA, CMP #### [facility] ([id number]) [address] [place] [address] 74368 #### 2857-1, 60690-5, 39065-9, FEPR, 2276-4 #### [facility] ([id number]) [address], [address] [place] [address] Sodium [Moles/Vol] 135 mmol/L Normal 134-146 [facility] Comment on above: Performed By: #### C BCA, CMP #### [facility] ([id number]) [address] [place] [address] 00874 #### 2857-1, 86528-5, 01979-9, FEPR, 2276-4 #### [facility] ([id number]) [address], [address] [place] [address] Urea nitrogen [Mass/Vol] 24 mg/dL Normal 5-27 [facility] Comment on above: Performed By: #### C BCA, CMP #### [facility] ([id number]) [address] [place] [address] 34327 #### 2857-1, 69641-1, 94713-2, FEPR, 2276-4 #### [facility] ([id number]) [address], [address] [place] [address] Lipid 1996 panelon 4 Cholesterol [Mass/Vol] 137 mg/dL Low 150-200 [facility] Comment on above: Performed By: #### C GARDENIA, CMP #### [facility] ([id number]) [address] [place] [address] 65017 #### 2857-1, 56671-2, 42753-5, FEPR, 2276-4 #### [facility] ([id number]) [address], [address] [place] [address] Cholesterol in HDL [Mass/Vol] 32 mg/dL Low >39 [facility] Comment on above: Result Comment: HDL <40 mg/dL - High Risk HDL > or = 40mg/dL- Desirable HDL >60 mg/dL - Negative Risk Performed By: #### C BCA, CMP #### [facility] ([id number]) [address] [place] [address] 32059 #### 2857-1, 99324-3, 74437-8, FEPR, 2276-4 #### [facility] ([id number]) [address], [address] [place] [address] Cholesterol in LDL [Mass/Vol] 50 mg/dL Normal <130 [facility] Comment on above: Result Comment: LDL <100 mg/dL - Desirable LDL >160 mg/dL - High Risk Performed By: #### C BCA, CMP #### [facility] ([id number]) [address] [place] [address] 42523 #### 2857-1, 01555-5, 49805-6, FEPR, 2276-4 #### [facility] ([id number]) [address] [facility], [address] [place] [address] Cholesterol in VLDL [Mass/Vol] 55 mg/dL High 0-30 [facility] Comment on above: Performed By: #### C BCA, CMP #### [facility] ([id number]) [address] [place] [address] 34817 #### 2857-1, 62296-5, 33778-6, FEPR, 2276-4 #### [facility] ([id number]) [facility] [facility], [address] [place] [address] CHOLESTEROL:HDL 4.3 Normal 1.0-5.0 [facility] Comment on above: Performed By: #### C BCA, CMP #### [facility] ([id number]) [address] [place] [address] 02871 #### 2857-1, 12205-2, 25936-5, FEPR, 2276-4 #### [facility] ([id number]) [address], [address] [place] [address] Triglyceride [Mass/Vol] 275 mg/dL High 27-150 [facility] Comment on above: Performed By: #### C BCA, CMP #### [facility] ([id number]) [address] [place] [address] 12903 #### 2857-1, 13967-1, 01125-9, FEPR, 2276-4 #### [facility] ([id number]) [address], [address] [place] [address] TSH WITH REFLEXon 05-09-2024 TSH 4.67 uIU/mL Normal 0.49-4.67 [facility] Comment on above: Performed By: #### C BCA, CMP #### [facility] ([id number]) [address] [place] [address] 21924 #### 2857-1, 09309-7, 78337-8, FEPR, 2276-4 #### [facility] ([id number]) [address], [address] [place] [address] BASIC METABOLIC PANLon 04-16 Anion gap [Moles/Vol] 10 mmol/L Normal 5-15 [facility] Comment on above: Performed By: #### C BCA, CMP #### [facility] ([id number]) [address] [place] [address] 78449 #### 2857-1, 76579-8, 73512-7, FEPR, 6-4 #### [facility] ([id number]) [address], [address] [place] [address] Calcium [Mass/Vol] 9.3 mg/dL Normal 8.5-10.5 [facility] Comment on above: Performed By: #### C BCA, CMP #### [facility] ([id number]) [address] [place] [address] 20293 #### 2857-1, 39989-2, 44824-6, FEPR, 2276-4 #### [facility] ([id number]) [address], [address] [place] [address] Chloride [Moles/Vol] 101 mmol/L Normal 98-109 [facility] Comment on above: Performed By: #### C BCA, CMP #### [facility] ([id number]) [address] [place] [address] 50611 #### 2857-1, 71473-4, 46788-5, FEPR, 2276-4 #### [facility] ([id number]) [address], [address] [place] [address] CO2 [Moles/Vol] 27 mmol/L Normal 22-32 [facility] Comment on above: Performed By: #### C BCA, CMP #### [facility] ([id number]) [address] [place] [address] 09374 #### 2857-1, 94709-3, 00773-5, FEPR, 2276-4 #### [facility] ([id number]) [address], [address] [place] [address] Creatinine [Mass/Vol] 1.19 mg/dL Normal 0.70-1.20 [facility] Comment on above: Result Comment: METH OD TRACEABLE TO IDMS STANDARD Performed By: #### C BCA, CMP #### [facility] ([id number]) [address] [place] [address] 81130 #### 2857-1, 59204-5, 51264-0, FEPR, 2276-4 #### [facility] ([id number]) [address], [address] [place] [address] GFR/1.73 sq M.predicted among non-blacks MDRD (S/P/Bld) [Vol rate/Area] 66 mL/min/{1.73_m2} Normal >59 [facility] Comment on above: Result Comment: Reported eGFR is based on the CKD-EPI 2020 equation that does not use a race coefficient. Performed By: #### C BCA, CMP #### [facility] ([id number]) [address] [place] [address] #### 2857-1, 61501-0, 33860-5, FEPR, 2276-4 #### [facility] ([id number]) [address], [address] [place] [address] Glucose [Mass/Vol] 165 mg/dL High 65-99 [facility] Comment on above: Performed By: #### C BCA, CMP #### [facility] ([id number]) [address] [place] [address] #### 2857-1, 28473-0, 91605-7, FEPR, 2276-4 #### [facility] ([id number]) [address], [address] [place] [address] Potassium [Moles/Vol] 4.2 mmol/L Normal 3.5-5.0 [facility] Comment on above: Performed By: #### C BCA, CMP #### [facility] ([id number]) [address] [place] [address] #### 2857-1, 00471-3, 35604-7, FEPR, 2276-4 #### [facility] ([id number]) [address], [address] [place] [address] Sodium [Moles/Vol] 138 mmol/L Normal 134-146 [facility] Comment on above: Performed By: #### C BCA, CMP #### [facility] ([id number]) [address] [place] [address] #### 2857-1, 06940-3, 55304-7, FEPR, 2276-4 #### [facility] ([id number]) [address], [address] [place] [address] Urea nitrogen [Mass/Vol] 17 mg/dL Normal 5-27 [facility] Comment on above: Performed By: #### C BCA, CMP #### [facility] ([id number]) [address] [place] [address] #### 2857-1, 81162-0, 18009-0, FEPR, 2276-4 #### [facility] ([id number]) [address], [address] [place] [address] CBC AND AUTO DIFFon 10-15-20 24 ABSOLUTE BASOPHIL 0.0 X10E9/L Normal 0.0-0.2 [facility] Comment on above: Performed By: #### C BCA, CMP #### [facility] ([id number]) [address] [place] [address] #### 2857-1, 38990-5, 63787-2, FEPR, 2276-4 #### [facility] ([id number]) [address] [facility] [place] [address] ABSOLUTE NEUTROPHIL 4.0 X10E9/L Normal 1.5-6.6 [facility] Comment on above: Performed By: #### C BCA, CMP #### [facility] ([id number]) [address] [place] [address] #### 2857-1, 12230-4, 44070-3, FEPR, 2276-4 #### [facility] ([id number]) [address], [address] [place] [address] Basophils/100 WBC (Bld) 0.5 % Normal [facility] Comment on above: Performed By: #### C BCA, CMP #### [facility] ([id number]) [address] [place] [address] #### 2857-1, 76007-0, 20024-9, FEPR, 2276-4 #### [facility] ([id number]) [address], [address] [place] [address] Eosinophils (Bld) [#/Vol] 0.0 10*3/uL Normal 0.0-0.4 [facility] Comment on above: Performed By: #### C GARDENIA, CMP #### [facility] ([id number]) [address] [place] [address] 9[address] #### 2857-1, 53172-8, 35451-6, FEPR, 2276-4 #### [facility] ([id number]) [address], [address] [place] [address] Eosinophils/100 WBC (Bld) 0.4 % Normal [facility] Comment on above: Performed By: #### C GARDENIA, CMP #### [facility] ([id number]) [address] [place] [address] 65650 #### 2857-1, 09230-9, 42972-4, FEPR, 2276-4 #### [facility] ([id number]) [address] [facility], [address] [place] [address] Erythrocyte distribution width (RBC) [Ratio] 15.7 % High 11.5-15.0 [facility] Comment on above: Performed By: #### C GARDENIA, CMP #### [facility] ([id number]) [address] [place] [address] 78004 #### 2857-1, 21127-0, 95434-9, FEPR, 2276-4 #### [facility] ([id number]) [address], [address] [place] [address] Hematocrit (Bld) [Volume fraction] 39.9 % Normal 39-49 [facility] Comment on above: Performed By: #### C BCA, CMP #### [facility] ([id number]) [address] [place] [address] 14591 #### 2857-1, 25445-3, 47569-0, FEPR, 2276-4 #### [facility] ([id number]) [address], [address] [place] [address] Hemoglobin (Bld) [Mass/Vol] 13.1 g/dL Normal 13.0-17.0 [facility] Comment on above: Performed By: #### C BCA, CMP #### [facility] ([id number]) [address] [place] [address] 35376 #### 2857-1, 34136-4, 78076-3, FEPR, 2276-4 #### [facility] ([id number]) [address], [address] [place] [address] Lymphocytes (Bld) [#/Vol] 1.1 10*3/uL Normal 1.0-3.5 [facility] Comment on above: Performed By: #### C BCA, CMP #### [facility] ([id number]) [address] [place] [address] 34839 #### 2857-1, 28239-6, 15546-7, FEPR, 2276-4 #### [facility] ([id number]) [address], [address] [place] [address] Lymphocytes/100 WBC (Bld) 18.2 % Normal [facility] Comment on above: Performed By: #### C BCA, CMP #### [facility] ([id number]) [address] [place] [address] 82786 #### 2857-1, 77600-6, 70045-4, FEPR, 2276-4 #### [facility] ([id number]) [address], [address] [place] [address] MCH (RBC) [Entitic mass] 30.6 pg Normal 27-34 [facility] Comment on above: Performed By: #### C BCA, CMP #### [facility] ([id number]) [address] [place] [address] 13437 #### 2857-1, 22742-3, 22469-8, FEPR, 2276-4 #### [facility] ([id number]) [address], [address] [place] [address] MCHC (RBC) [Mass/Vol] 32.8 g/dL Normal 32-36 [facility] Comment on above: Performed By: #### C BCA, CMP #### [facility] ([id number]) [address] [place] [address] 73324 #### 2857-1, 02822-3, 66906-6, FEPR, 6-4 #### [facility] ([id number]) [address], [address] [place] [address] MCV (RBC) [Entitic vol] 93 fL Normal 80-100 [facility] Comment on above: Performed By: #### C BCA, CMP #### [facility] ([id number]) [address] [place] [address] 04440 #### 2857-1, 96281-2, 78462-3, FEPR, 2275-4 #### [facility] ([id number]) [address], [address] [place] [address] Monocytes (Bld) [#/Vol] 0.8 10*3/uL Normal 0-0.9 [facility] Comment on above: Performed By: #### C BCA, CMP #### [facility] ([id number]) [address] [place] [address] 52312 #### 2857-1, 07977-9, 71795-5, FEPR, 2276-4 #### [facility] ([id number]) [address], [address] [place] [address] Monocytes/100 WBC (Bld) 13.5 % Normal [facility] Comment on above: Performed By: #### C BCA, CMP #### [facility] ([id number]) [address] [place] [address] 36357 #### 2857-1, 70872-3, 41420-1, FEPR, 2276-4 #### [facility] ([id number]) [address], [address] [place] [address] Neutrophils/100 WBC (Bld) 67.4 % Normal [facility] Comment on above: Performed By: #### C BCA, CMP #### [facility] ([id number]) [address] [place] [address] 98484 #### 2857-1, 22004-8, 84368-5, FEPR, 2276-4 #### [facility] ([id number]) [address], [address] [place] [address] Platelet mean volume (Bld) [Entitic vol] 7.4 fL Normal 7-12 [facility] Comment on above: Performed By: #### C BCA, CMP #### [facility] ([id number]) [address] [place] [address] 83233 #### 2857-1, 75053-7, 45630-9, FEPR, 2276-4 #### [facility] ([id number]) [address], [address] [place] [address] Platelets (Bld) [#/Vol] 284 10*3/uL Normal 150-450 [facility] Comment on above: Performed By: #### C BCA, CMP #### [facility] ([id number]) [address] [place] [address] 15592 #### 2857-1, 01504-5, 82442-4, FEPR, 2276-4 #### [facility] ([id number]) [address], [address] [place] [address] RBC COUNT 4.27 X10E12/L Normal 4.10-5.70 [facility] Comment on above: Performed By: #### C BCA, CMP #### [facility] ([id number]) [address] [facility], [place] [address] #### 2857-1, 84286-7, 62057-9, FEPR, 2276-4 #### [facility] ([id number]) [address], [address] [place] [address] WBC (Bld) [#/Vol] 5.9 10*3/uL Normal 4.0-11.0 [facility] Comment on above: Performed By: #### C BCA, CMP #### [facility] ([id number]) [address] [place] [address], [place] [address] #### 2857-1, 82550-9, 84829-8, FEPR, 2276-4 #### [facility] ([id number]) [address], [address] [place] [address] CT BRAIN WO CONTon CT BRAIN WO [...] Avila DO on 04/16/2024 2:16 PM Normal [facility] CT CERVICAL SPINE WO CONTon [...] Avila DO on 04/16/2024 2:24 PM Normal [facility] CT FACIAL BONES WO CONTon [...] Morris Lau on 04/16/2024 2:30 PM Normal [facility] PROTIME AND INRon 04-16-2024 INR Coag (PPP) [Relative time] 2.1 {INR} High 0.8-1.1 [facility] Comment on above: Performed By: #### C GARDENIA, [facility] #### [facility] ([id number]) [address] [place] [address] #### 2857-1, 54360-6, 59551-2, FEPR, 2276-4 #### [facility] ([id number]) [address], [address] [place] [address] PT Coag (PPP) [Time] 23.7 s High 9.8-13.2 [facility] Comment on above: Result Comment: NEW REFERENCE RANGE Performed By: #### C BCA, CMP #### [facility] ([id number]) [address] [place] [address] 13819 #### 2857-1, 11338-5, 43681-7, FEPR, 2276-4 #### [facility] ([id number]) [address], [address] [place] [address] aPTT Coag (PPP) [Time]on aPTT Coag (Bld) [Time] 48 s High 26-37 [facility] Comment on above: Result Comment: NEW REFERENCE RANGE Performed By: #### C BCA, CMP #### [facility] ([id number]) [address] [place] [address] 31705 #### 2857-1, 95814-0, 32598-3, FEPR, 2276-4 #### [facility] ([id number]) [address], [facility] [address] [place] [address] MR LUMBAR SPINE WO CONTon MR LUMBAR [...] Stephens MD on 04/01/2024 10:47 PM Normal [facility] XR HIP LT 2-3 VIEWS W [...] Jaramillo MD on 12/26/2023 10:07 AM Normal [facility] XR SPINE LUMBAR 2 OR [...] Jaramillo MD on 12/26/2023 10:10 AM Normal [facility] CBC AND AUTO DIFFon 09-22-19 24 ABSOLUTE BASOPHIL 0.0 X10E9/L Normal 0.0-0.2 [facility] Comment on above: Performed By: #### C BCA, CMP, THYR #### [facility] ([id number]) [address] [place] [address], [place] [address] #### 2857-1, 58448-1, 32289-3 #### [facility] ([id number]) [address] [facility], [address] [place] [address] ABSOLUTE NEUTROPHIL 4.3 X10E9/L Normal 1.5-6.6 [facility] Comment on above: Performed By: #### C BCA, CMP, THYR #### [facility] ([id number]) [address] [place] [address] 42235 #### 2857-1, 65455-6, 37582-2 #### [facility] ([id number]) [address] [facility], [address] [place] [address] Basophils/100 WBC (Bld) 0.5 % Normal [facility] Comment on above: Performed By: #### C BCA, CMP, THYR #### [facility] ([id number]) [address] [place] [address] 70307 #### 2857-1, 72008-8, 69064-4 #### [facility] ([id number]) [address] [facility], [address] [place] [address] Eosinophils (Bld) [#/Vol] 0.0 10*3/uL Normal 0.0-0.4 [facility] Comment on above: Performed By: #### C BCA, CMP, THYR #### [facility] ([id number]) [address] [place] [address] 81341 #### 2857-1, 06763-3, 45849-8 #### [facility] ([id number]) [address] [facility], [address] [place] [address] Eosinophils/100 WBC (Bld) 0.7 % Normal [facility] Comment on above: Performed By: #### C BCA, CMP, THYR #### [facility] ([id number]) [address] [place] [address] 39082 #### 2857-1, 71208-5, 38988-4 #### [facility] ([id number]) [address] [facility], [address] [place] [address] Erythrocyte distribution width (RBC) [Ratio] 15.8 % High 11.5-15.0 [facility] Comment on above: Performed By: #### C BCA, CMP, THYR #### [facility] ([id number]) [address] [place] [address] 35346 #### 2857-1, 40397-9, 47244-7 #### [facility] ([id number]) [address], [address] [place] [address] Hematocrit (Bld) [Volume fraction] 39.8 % Normal 39-49 [facility] Comment on above: Performed By: #### C BCA, CMP, THYR #### [facility] ([id number]) [address] [place] [address] 27225 #### 2857-1, 55007-4, 72602-9 #### [facility] ([id number]) [address], [address] [place] [address] Hemoglobin (Bld) [Mass/Vol] 13.2 g/dL Normal 13.0-17.0 [facility] Comment on above: Performed By: #### C BCA, CMP, THYR #### [facility] ([id number]) [address] [place] [address] 07115 #### 2857-1, 54901-2, 48597-5 #### [facility] ([id number]) [address], [address] [place] [address] Lymphocytes (Bld) [#/Vol] 1.1 10*3/uL Normal 1.0-3.5 [facility] Comment on above: Performed By: #### C BCA, CMP, THYR #### [facility] ([id number]) [address] [place] [address] 23462 #### 2857-1, 99781-9, 31747-8 #### [facility] ([id number]) [address], [address] [place] [address] Lymphocytes/100 WBC (Bld) 17.7 % Normal [facility] Comment on above: Performed By: #### C BCA, CMP, THYR #### [facility] ([id number]) [address] [place] [address] 14721 #### 2857-1, 95509-7, 09816-4 #### [facility] ([id number]) [address], [address] [place] [address] MCH (RBC) [Entitic mass] 29.8 pg Normal 27-34 [facility] Comment on above: Performed By: #### C BCA, CMP, THYR #### [facility] ([id number]) [address] [place] [address] 64105 #### 2857-1, 30149-9, 92120-9 #### [facility] ([id number]) [address], [address] [place] [address] MCHC (RBC) [Mass/Vol] 33.1 g/dL Normal 32-36 [facility] Comment on above: Performed By: #### C BCA, CMP, THYR #### [facility] ([id number]) [address] [place] [address] 41558 #### 2857-1, 04859-6, 50623-6 #### [facility] ([id number]) [address], [address] [place] [address] MCV (RBC) [Entitic vol] 90 fL Normal 80-100 [facility] Comment on above: Performed By: #### C BCA, CMP, THYR #### [facility] ([id number]) [address] [place] [address] 78666 #### 2857-1, 20313-8, 07967-8 #### [facility] ([id number]) [address], [address] [place] [address] Monocytes (Bld) [#/Vol] 0.8 10*3/uL Normal 0-0.9 [facility] Comment on above: Performed By: #### C BCA, CMP, THYR #### [facility] ([id number]) [address] [place] [address] 44042 #### 2857-1, 95672-6, 57091-2 #### [facility] ([id number]) [address], [address] [place] [address] Monocytes/100 WBC (Bld) 12.8 % Normal [facility] Comment on above: Performed By: #### C BCA, CMP, THYR #### [facility] ([id number]) [address] [place] [address] 99372 #### 2857-1, 33699-0, 88853-6 #### [facility] ([id number]) [address], [address] [place] [address] Neutrophils/100 WBC (Bld) 68.3 % Normal [facility] Comment on above: Performed By: #### C BCA, CMP, THYR #### [facility] ([id number]) [address] [place] [address] 31200 #### 2857-1, 75006-1, 73894-7 #### [facility] ([id number]) [address], [address] [place] [address] Platelet mean volume (Bld) [Entitic vol] 7.8 fL Normal 7-12 [facility] Comment on above: Performed By: #### C BCA, CMP, THYR #### [facility] ([id number]) [address] [place] [address] 62569 #### 2857-1, 21736-5, 87605-0 #### [facility] ([id number]) [address], [address] [place] [address] Platelets (Bld) [#/Vol] 259 10*3/uL Normal 150-450 [facility] Comment on above: Performed By: #### C BCA, CMP, THYR #### [facility] ([id number]) [address] [place] [address] 99016 #### 2857-1, 67745-2, 68286-5 #### [facility] ([id number]) [address] [facility], [address] [place] [address] RBC COUNT 4.42 X10E12/L Normal 4.10-5.70 [facility] Comment on above: Performed By: #### C BCA, CMP, THYR #### [facility] ([id number]) [address] [place] [address] 94846 #### 2857-1, 67448-8, 47956-0 #### [facility] ([id number]) [address] [facility], [address] [place] [address] WBC (Bld) [#/Vol] 6.2 10*3/uL Normal 4.0-11.0 [facility] Comment on above: Performed By: #### C BCA, CMP, THYR #### [facility] ([id number]) [address] [place] [address] 76164 #### 2857-1, 86035-4, 48112-5 #### [facility] ([id number]) [address] [facility], [address] [place] [address] COMPREHENSIVE METABOLIC PANE Alex 09-22-2023 Albumin [Mass/Vol] 4.2 g/dL Normal 3.2-5.3 [facility] Comment on above: Performed By: #### C BCA, CMP, THYR #### [facility] ([id number]) [address] [place] [address] 77664 #### 2857-1, 10743-0, 45184-2 #### [facility] ([id number]) [address] [facility], [address] [place] [address] ALP [Catalytic activity/Vol] 41 U/L Normal 39-130 [facility] Comment on above: Performed By: #### C BCA, CMP, THYR #### [facility] ([id number]) [address] [place] [address] 68778 #### 2857-1, 73565-2, 87306-7 #### [facility] ([id number]) [address] [place] [address], [address] [place] [address] ALT [Catalytic activity/Vol] 17 U/L Normal 0-40 [facility] Comment on above: Performed By: #### C BCA, CMP, THYR #### [facility] ([id number]) [address] [place] [address] 56080 #### 2857-1, 23358-4, 31200-6 #### [facility] ([id number]) [address] [place] [address], [address] [place] [address] Anion gap [Moles/Vol] 6 mmol/L Normal 5-15 [facility] Comment on above: Performed By: #### C BCA, CMP, THYR #### [facility] ([id number]) [address] [place] [address] 16702 #### 2857-1, 79863-5, 21361-1 #### [facility] ([id number]) [address] [place] [address], [address] [place] [address] AST [Catalytic activity/Vol] 20 U/L Normal 0-41 [facility] Comment on above: Performed By: #### C BCA, CMP, THYR #### [facility] ([id number]) [address] [place] [address] 74355 #### 2857-1, 75814-8, 17705-2 #### [facility] ([id number]) [address], [address] [place] [address] Bilirubin [Mass/Vol] 0.4 mg/dL Normal 0.3-1.2 [facility] Comment on above: Performed By: #### C BCA, CMP, THYR #### [facility] ([id number]) [address] [place] [address] 42727 #### 2857-1, 57400-9, 22826-6 #### [facility] ([id number]) [address], [address] [place] [address] Calcium [Mass/Vol] 9.3 mg/dL Normal 8.5-10.5 [facility] Comment on above: Performed By: #### C BCA, CMP, THYR #### [facility] ([id number]) [address] [place] [address] 41470 #### 2857-1, 33359-6, 66757-4 #### [facility] ([id number]) [address], [address] [place] [address] Chloride [Moles/Vol] 103 mmol/L Normal 98-109 [facility] Comment on above: Performed By: #### C BCA, CMP, THYR #### [facility] ([id number]) [address] [place] [address] 21923 #### 2857-1, 67715-5, 12125-0 #### [facility] ([id number]) [address], [address] [place] [address] CO2 [Moles/Vol] 27 mmol/L Normal 22-32 [facility] Comment on above: Performed By: #### C BCA, CMP, THYR #### [facility] ([id number]) [address] [place] [address] 98270 #### 2857-1, 37484-5, 96914-7 #### [facility] ([id number]) [address], [address] [place] [address] Creatinine [Mass/Vol] 1.12 mg/dL Normal 0.70-1.20 [facility] Comment on above: Result Comment: METH OD TRACEABLE TO IDMS STANDARD Performed By: #### C BCA, CMP, THYR #### [facility] ([id number]) [address] [place] [address] 33344 #### 2857-1, 48049-0, 16755-5 #### [facility] ([id number]) [address], [address] [place] [address] GFR/1.73 sq M.predicted among non-blacks MDRD (S/P/Bld) [Vol rate/Area] 71 mL/min/{1.73_m2} Normal >59 [facility] Comment on above: Result Comment: Reported eGFR is based on the CKD-EPI 2020 equation that does not use a race coefficient. Performed By: #### C BCA, CMP, THYR #### [facility] ([id number]) [address] [place] [address] 60974 #### 2857-1, 15221-3, 67297-6 #### [facility] ([id number]) [address], [address] [place] [address] Glucose [Mass/Vol] 178 mg/dL High 65-99 [facility] Comment on above: Performed By: #### C BCA, CMP, THYR #### [facility] ([id number]) [address] [place] [address] 39033 #### 2857-1, 14124-5, 84572-4 #### [facility] ([id number]) [address], [address] [place] [address] Potassium [Moles/Vol] 4.6 mmol/L Normal 3.5-5.0 [facility] Comment on above: Performed By: #### C BCA, CMP, THYR #### [facility] ([id number]) [address] [place] [address] 07111 #### 2857-1, 70757-3, 54151-2 #### [facility] ([id number]) [address], [address] [place] [address] Protein [Mass/Vol] 7.8 g/dL Normal 6.0-8.0 [facility] Comment on above: Performed By: #### C BCA, CMP, THYR #### [facility] ([id number]) [address] [place] [address] 71306 #### 2857-1, 91091-5, 73268-8 #### [facility] ([id number]) [address], [address] [place] [address] Sodium [Moles/Vol] 136 mmol/L Normal 134-146 [facility] Comment on above: Performed By: #### C BCA, CMP, THYR #### [facility] ([id number]) [address] [place] [address] #### 2857-1, 60222-8, 49114-4 #### [facility] ([id number]) [address], [address] [place] [address] Urea nitrogen [Mass/Vol] 18 mg/dL Normal 5-27 [facility] Comment on above: Performed By: #### C BCA, CMP, THYR #### [facility] ([id number]) [address] [place] [address] #### 2857-1, 68840-0, 01751-7 #### [facility] ([id number]) [address], [address] [place] [address] HCV Ab IA Qlon 09-22-2023 ANTI HCV W/PCR REFLX Non-Reactive Normal NRCT [facility] Comment on above: Result Comment: If recent infection suspected, recommend repeat testing (>2 months). Gffkap-bz-gifjqp ratio is <0.80. Performed By: #### C BCA, CMP #### [facility] ([id number]) [address] [place] [address] #### 2857-1, 46943-2, 98155-3, FEPR, 2276-4 #### [facility] ([id number]) [address] [place] [address] HGB A1C (GLYCO-HGB)on 2023 Glucose [Mass/Vol] 180 mg/dL Normal [facility] Comment on above: Performed By: #### C BCA, CMP #### [facility] ([id number]) [address] [place] [address] #### 2857-1, 22500-6, 33125-3, FEPR, 2276-4 #### [facility] ([id number]) [address] [place] [address] HbA1c (Bld) [Mass fraction] 7.9 % High 4.4-5.6 [facility] Comment on above: Result Comment: NOTE ADA Guidelines Result HgbA1c Normal : less than 5.7 % Prediabetes : 5.7 % to 6.4 % Diabetes : > 6.4 % Use with caution in patients with abnormal hemoglobin variants as the half-life of red blood cells and in vivo glycation rates are affected. Performed By: #### C BCA, CMP #### [facility] ([id number]) [address] [place] [address] #### 2857-1, 05862-5, 08081-7, FEPR, 2276-4 #### [facility] ([id number]) [address], [address] [place] [address] Prostate specific Ag [Mass/V ol]on 09-22-2023 PSA SCREEN 0.89 ng/mL Normal 0.00-4.00 [facility] Comment on above: Result Comment: The method used for this test is [employer] Riana DXI chemiluminescent immunoassay. Values obtained by different assay methods cannot be used interchangeably. Performed By: #### C BCA, CMP #### [facility] ([id number]) [address] [place] [address] #### 2857-1, 82350-0, 65781-2, FEPR, 2276-4 #### [facility] ([id number]) [address], [address] [place] [address] THYROID PROFILEon 09-22-2023 Free T4 [Mass/Vol] 1.03 ng/dL Normal 0.61-1.60 [facility] Comment on above: Performed By: #### C BCA, CMP #### [facility] ([id number]) [address] [place] [address] #### 2857-1, 56959-2, 50471-9, FEPR, 2276-4 #### [facility] ([id number]) [address], [address] [place] [address] TSH 4.47 uIU/mL Normal 0.49-4.67 [facility] Comment on above: Performed By: #### C BCA, CMP #### [facility] ([id number]) [address] [place] [address] #### 2857-1, 25962-8, 72625-5, FEPR, 2276-4 #### [facility] ([id number]) [address], [address] [place] [address] Vitamin D+Metabolites [Mass/ Vol]on 09-22-2023 VITAMIN D 25 HYD TOT 23.7 ng/mL Low 30-100 [facility] Comment on above: Result Comment: Vitamin D status 25 [place] Vitamin D Deficiency <20 ng/mL Insufficiency 20-29 ng/mL Sufficiency 30-100 ng/mL Toxicity >100 ng/mL NOTE: A pediatric reference range has not been established by the warp dyeing tender of this kit. The [place] [employer] recommends a Vitamin D level of = or >20ng/mL in infants and children. Performed By: #### C GARDENIA, CMP #### [facility] ([id number]) [address] [place] [address] 24909 #### 2857-1, 56905-3, 66600-8, FEPR, 2276-4 #### [facility] ([id number]) [address] [place] [address], [address] [place] [address] CBC AND AUTO DIFFon 08-02-19 24 ABSOLUTE BASOPHIL 0.0 X10E9/L Normal 0.0-0.2 [facility] Comment on above: Performed By: #### Jerry VARNER, CMP #### [facility] ([id number]) [address] [place] [address] 55242 #### 2857-1, 02076-8, 67956-3, FEPR, 2276-4 #### [facility] ([id number]) [address] [place] [address], [address] [place] [address] ABSOLUTE NEUTROPHIL 4.4 X10E9/L Normal 1.5-6.6 [facility] Comment on above: Performed By: #### C GARDENIA, CMP #### [facility] ([id number]) [address] [place] [address] 85811 #### 2857-1, 45868-5, 33618-8, FEPR, 2276-4 #### [facility] ([id number]) [address], [address] [place] [address] Basophils/100 WBC (Bld) 0.5 % Normal [facility] Comment on above: Performed By: #### C BCA, CMP #### [facility] ([id number]) [address] [place] [address] 08148 #### 2857-1, 56223-7, 02863-4, FEPR, 6-4 #### [facility] ([id number]) [address], [address] [place] [address] Eosinophils (Bld) [#/Vol] 0.1 10*3/uL Normal 0.0-0.4 [facility] Comment on above: Performed By: #### C BCA, CMP #### [facility] ([id number]) [address] [place] [address] 89726 #### 2857-1, 61473-5, 38651-8, FEPR, 6-4 #### [facility] ([id number]) [address] [facility], [address] [place] [address] Eosinophils/100 WBC (Bld) 0.9 % Normal [facility] Comment on above: Performed By: #### C BCA, CMP #### [facility] ([id number]) [address] [place] [address] 62857 #### 2857-1, 77803-0, 35701-1, FEPR, 6-4 #### [facility] ([id number]) [address], [address] [place] [address] Erythrocyte distribution width (RBC) [Ratio] 15.7 % High 11.5-15.0 [facility] Comment on above: Performed By: #### C BCA, CMP #### [facility] ([id number]) [address] [place] [address] 07443 #### 2857-1, 72555-7, 78300-9, FEPR, 2276-4 #### [facility] ([id number]) [address], [address] [place] [address] Hematocrit (Bld) [Volume fraction] 38.3 % Low 39-49 [facility] Comment on above: Performed By: #### C BCA, CMP #### [facility] ([id number]) [address] [place] [address] 17617 #### 2857-1, 29717-9, 90550-2, FEPR, 2276-4 #### [facility] ([id number]) [address], [address] [place] [address] Hemoglobin (Bld) [Mass/Vol] 12.5 g/dL Low 13.0-17.0 [facility] Comment on above: Performed By: #### Jerry BCA, CMP #### [facility] ([id number]) [address] [place] [address] 34266 #### 2857-1, 83825-9, 85691-9, FEPR, 6-4 #### [facility] ([id number]) [address], [address] [place] [address] Lymphocytes (Bld) [#/Vol] 1.2 10*3/uL Normal 1.0-3.5 [facility] Comment on above: Performed By: #### C BCA, CMP #### [facility] ([id number]) [address] [place] [address] 65424 #### 2857-1, 15432-9, 89325-1, FEPR, 2276-4 #### [facility] ([id number]) [address], [address] [place] [address] Lymphocytes/100 WBC (Bld) 18.4 % Normal [facility] Comment on above: Performed By: #### C BCA, CMP #### [facility] ([id number]) [address] [place] [address] 46630 #### 2857-1, 78294-8, 44429-0, FEPR, 2276-4 #### [facility] ([id number]) [address], [address] [place] [address] MCH (RBC) [Entitic mass] 29.1 pg Normal 27-34 [facility] Comment on above: Performed By: #### C BCA, CMP #### [facility] ([id number]) [address] [place] [address] 80356 #### 2857-1, 27894-8, 05917-1, FEPR, 2276-4 #### [facility] ([id number]) [address], [address] [place] [address] MCHC (RBC) [Mass/Vol] 32.7 g/dL Normal 32-36 [facility] Comment on above: Performed By: #### C BCA, CMP #### [facility] ([id number]) [address] [place] [address] 62828 #### 2857-1, 14824-3, 76259-6, FEPR, 2276-4 #### [facility] ([id number]) [address], [address] [place] [address] MCV (RBC) [Entitic vol] 89 fL Normal 80-100 [facility] Comment on above: Performed By: #### C BCA, CMP #### [facility] ([id number]) [address] [place] [address] 18751 #### 2857-1, 23851-9, 94068-2, FEPR, 2276-4 #### [facility] ([id number]) [address], [address] [place] [address] Monocytes (Bld) [#/Vol] 1.0 10*3/uL High 0-0.9 [facility] Comment on above: Performed By: #### C BCA, CMP #### [facility] ([id number]) [address] [place] [address] 45577 #### 2857-1, 57037-0, 21116-4, FEPR, 2276-4 #### [facility] ([id number]) [address], [address] [place] [address] Monocytes/100 WBC (Bld) 14.3 % Normal [facility] Comment on above: Performed By: #### C GARDENIA, CMP #### [facility] ([id number]) [address] [place] [address] 09389 #### 2857-1, 91782-7, 48414-7, FEPR, 2276-4 #### [facility] ([id number]) [address], [address] [place] [address] Neutrophils/100 WBC (Bld) 65.9 % Normal [facility] Comment on above: Performed By: #### Jerry BCA, CMP #### [facility] ([id number]) [address] [place] [address] 06776 #### 2857-1, 98394-6, 09688-6, FEPR, 2276-4 #### [facility] ([id number]) [address], [address] [place] [address] Platelet mean volume (Bld) [Entitic vol] 8.3 fL Normal 7-12 [facility] Comment on above: Performed By: #### C BCA, CMP #### [facility] ([id number]) [address] [place] [address] 68791 #### 2857-1, 64727-8, 17967-6, FEPR, 2276-4 #### [facility] ([id number]) [address], [address] [place] [address] Platelets (Bld) [#/Vol] 271 10*3/uL Normal 150-450 [facility] Comment on above: Performed By: #### C BCA, CMP #### [facility] ([id number]) [address] [place] [address] 73881 #### 2857-1, 10997-6, 67115-5, FEPR, 2276-4 #### [facility] ([id number]) [address] [facility], [address] [place] [address] RBC COUNT 4.31 X10E12/L Normal 4.10-5.70 [facility] Comment on above: Performed By: #### C BCA, CMP #### [facility] ([id number]) [address] [place] [address] 43440 #### 2857-1, 27194-8, 99782-4, FEPR, 2276-4 #### [facility] ([id number]) [address] [facility], [address] [place] [address] WBC (Bld) [#/Vol] 6.7 10*3/uL Normal 4.0-11.0 [facility] Comment on above: Performed By: #### C BCA, CMP #### [facility] ([id number]) [address] [place] [address] 13473 #### 2857-1, 36992-7, 34402-6, FEPR, 2276-4 #### [facility] ([id number]) [address], [address] [place] [address] COMPREHENSIVE METABOLIC PANE Alex 08-02-2023 Albumin [Mass/Vol] 3.8 g/dL Normal 3.2-5.3 [facility] Comment on above: Performed By: #### C BCA, CMP #### [facility] ([id number]) [address] [place] [address] 95087 #### 2857-1, 47594-5, 40631-8, FEPR, 2276-4 #### [facility] ([id number]) [address], [address] [place] [address] ALP [Catalytic activity/Vol] 48 U/L Normal 39-130 [facility] Comment on above: Performed By: #### C BCA, CMP #### [facility] ([id number]) [address] [place] [address] 17727 #### 2857-1, 88943-5, 54465-0, FEPR, 2276-4 #### [facility] ([id number]) [address], [address] [place] [address] ALT [Catalytic activity/Vol] 18 U/L Normal 0-40 [facility] Comment on above: Performed By: #### C BCA, CMP #### [facility] ([id number]) [address] [place] [address] 73741 #### 2857-1, 15410-7, 17027-9, FEPR, 2276-4 #### [facility] ([id number]) [address], [address] [place] [address] Anion gap [Moles/Vol] 9 mmol/L Normal 5-15 [facility] Comment on above: Performed By: #### C BCA, CMP #### [facility] ([id number]) [address] [place] [address] 49246 #### 2857-1, 75685-1, 80997-5, FEPR, 2276-4 #### [facility] ([id number]) [address], [address] [place] [address] AST [Catalytic activity/Vol] 24 U/L Normal 0-41 [facility] Comment on above: Performed By: #### C BCA, CMP #### [facility] ([id number]) [address] [place] [address] 55180 #### 2857-1, 07639-4, 30500-1, FEPR, 2276-4 #### [facility] ([id number]) [address], [address] [place] [address] Bilirubin [Mass/Vol] 0.6 mg/dL Normal 0.3-1.2 [facility] Comment on above: Performed By: #### C BCA, CMP #### [facility] ([id number]) [address] [place] [address] 15688 #### 2857-1, 50204-9, 90489-3, FEPR, 2276-4 #### [facility] ([id number]) [address] [facility], [address] [place] [address] Calcium [Mass/Vol] 9.0 mg/dL Normal 8.5-10.5 [facility] Comment on above: Performed By: #### C BCA, CMP #### [facility] ([id number]) [address] [place] [address] 64907 #### 2857-1, 57234-5, 03995-2, FEPR, 2276-4 #### [facility] ([id number]) [address], [address] [place] [address] Chloride [Moles/Vol] 98 mmol/L Normal 98-109 [facility] Comment on above: Performed By: #### C BCA, CMP #### [facility] ([id number]) [address] [place] [address] 88305 #### 2857-1, 61298-7, 19871-2, FEPR, 2276-4 #### [facility] ([id number]) [address], [address] [place] [address] CO2 [Moles/Vol] 28 mmol/L Normal 22-32 [facility] Comment on above: Performed By: #### C BCA, CMP #### [facility] ([id number]) [address] [place] [address] 37872 #### 2857-1, 54772-6, 90801-6, FEPR, 2276-4 #### [facility] ([id number]) [address], [address] [place] [address] Creatinine [Mass/Vol] 0.93 mg/dL Normal 0.70-1.20 [facility] Comment on above: Result Comment: METH OD TRACEABLE TO IDMS STANDARD Performed By: #### C BCA, CMP #### [facility] ([id number]) [address] [place] [address] 95570 #### 2857-1, 22432-4, 20839-9, FEPR, 2276-4 #### [facility] ([id number]) [address], [address] [place] [address] GFR/1.73 sq M.predicted among non-blacks MDRD (S/P/Bld) [Vol rate/Area] 89 mL/min/{1.73_m2} Normal >59 [facility] Comment on above: Result Comment: Reported eGFR is based on the CKD-EPI 2020 equation that does not use a race coefficient. Performed By: #### C BCA, CMP #### [facility] ([id number]) [address] [place] [address] 78831 #### 2857-1, 49961-2, 36632-8, FEPR, 2276-4 #### [facility] ([id number]) [address], [address] [place] [address] Glucose [Mass/Vol] 193 mg/dL High 65-99 [facility] Comment on above: Performed By: #### C BCA, CMP #### [facility] ([id number]) [address] [place] [address] 90433 #### 2857-1, 58470-3, 18091-0, FEPR, 2276-4 #### [facility] ([id number]) [address], [address] [place] [address] Potassium [Moles/Vol] 4.8 mmol/L Normal 3.5-5.0 [facility] Comment on above: Performed By: #### C BCA, CMP #### [facility] ([id number]) [address] [place] [address] 42655 #### 2857-1, 38335-9, 48676-1, FEPR, 2276-4 #### [facility] ([id number]) [address], [address] [place] [address] Protein [Mass/Vol] 7.8 g/dL Normal 6.0-8.0 [facility] Comment on above: Performed By: #### C BCA, CMP #### [facility] ([id number]) [address] [place] [address] 56753 #### 2857-1, 69650-7, 30347-7, FEPR, 2276-4 #### [facility] ([id number]) [address], [address] [place] [address] Sodium [Moles/Vol] 135 mmol/L Normal 134-146 [facility] Comment on above: Performed By: #### C BCA, CMP #### [facility] ([id number]) [address] [place] [address] 23726 #### 2857-1, 58611-7, 40686-7, FEPR, 2276-4 #### [facility] ([id number]) [address], [address] [place] [address] Urea nitrogen [Mass/Vol] 20 mg/dL Normal 5-27 [facility] Comment on above: Performed By: #### C BCA, CMP #### [facility] ([id number]) [address] [place] [address] 58532 #### 2857-1, 73776-1, 65360-2, FEPR, 2276-4 #### [facility] ([id number]) [address] [facility], [address] [place] [address] FERRITINon 08-02-2023 Ferritin [Mass/Vol] 29 ng/mL Normal 24-336 [facility] Comment on above: Performed By: #### C BCA, CMP #### [facility] ([id number]) [address] [place] [address] 73639 #### 2857-1, 92538-5, 05767-2, FEPR, 2276-4 #### [facility] ([id number]) [address] [place] [address], [address] [place] [address] HCV Ab IA Qlon 08-02-2023 ANTI HCV W/PCR REFLX Non-Reactive Normal NRCT [facility] Comment on above: Result Comment: If recent infection suspected, recommend repeat testing (>2 months). Hpyeqw-aa-yfymht ratio is <0.80. Performed By: #### C BCA, CMP #### [facility] ([id number]) [address] [place] [address] 60687 #### 2857-1, 69449-6, 58483-4, FEPR, 2276-4 #### [facility] ([id number]) [address] [place] [address], [address] [place] [address] HGB A1C (GLYCO-HGB)on 2023 Glucose [Mass/Vol] 189 mg/dL Normal [facility] Comment on above: Performed By: #### C BCA, CMP #### [facility] ([id number]) [address] [place] [address] 60078 #### 2857-1, 52526-7, 51009-8, FEPR, 2276-4 #### [facility] ([id number]) [address] [facility], [address] [place] [address] HbA1c (Bld) [Mass fraction] 8.2 % High 4.4-5.6 [facility] Comment on above: Result Comment: NOTE ADA Guidelines Result HgbA1c Normal : less than 5.7 % Prediabetes : 5.7 % to 6.4 % Diabetes : > 6.4 % Use with caution in patients with abnormal hemoglobin variants as the half-life of red blood cells and in vivo glycation rates are affected. Performed By: #### C BCA, CMP #### [facility] ([id number]) [address] [place] [address] 96680 #### 2857-1, 83401-2, 78028-5, FEPR, 2276-4 #### [facility] ([id number]) [address] [facility], [address] [place] [address] IRON PROFILEon 08-02-2023 Iron [Mass/Vol] 47 ug/dL Low 50-212 [facility] Comment on above: Performed By: #### C BCA, CMP #### [facility] ([id number]) [address] [place] [address] 59641 #### 2857-1, 95272-9, 47115-0, FEPR, 2276-4 #### [facility] ([id number]) [address] [facility], [address] [place] [address] IRON BINDING 379 ug/dL Normal 250-425 [facility] Comment on above: Performed By: #### C BCA, CMP #### [facility] ([id number]) [address] [place] [address] 23312 #### 2857-1, 12148-7, 55588-9, FEPR, 2276-4 #### [facility] ([id number]) [address], [address] [place] [address] IRON SATURATION 12 % SATURATION Low 20-50 [facility] Comment on above: Performed By: #### C GARDENIA, CMP #### [facility] ([id number]) [address] [place] [address] 64943 #### 2857-1, 03678-4, 99546-8, FEPR, 2276-4 #### [facility] ([id number]) [address], [address] [place] [address] Prostate specific Ag [Mass/V ol]on 08-02-2023 PSA SCREEN 0.52 ng/mL Normal 0.00-4.00 [facility] Comment on above: Result Comment: The method used for this test is Louis Arrogene DXI chemiluminescent immunoassay. Values obtained by different assay methods cannot be used interchangeably. Performed By: #### C GARDENIA, CMP #### [facility] ([id number]) [address] [place] [address] 22499 #### 2857-1, 10578-5, 94476-1, FEPR, 2276-4 #### [facility] ([id number]) [address], [address] [place] [address] Vitamin D+Metabolites [Mass/ Vol]on 08-02-2023 VITAMIN D 25 HYD TOT 19.2 ng/mL Low 30-100 [facility] Comment on above: Result Comment: Vitamin D status 25 [place] Vitamin D Deficiency <20 ng/mL Insufficiency 20-29 ng/mL Sufficiency 30-100 ng/mL Toxicity >100 ng/mL NOTE: A pediatric reference range has not been established by the warp dyeing tender of this kit. The [place] [employer] recommends a Vitamin D level of = or >20ng/mL in infants and children. Performed By: #### C BCA, [facility] #### [facility] ([id number]) [address] [facility] [place] [address] #### 2857-1, 19694-9, 05836-7, FEPR, 2276-4 #### [facility] ([id number]) [address] [facility], [address] [place] [address] Vital Signs Date Time Vital Sign Value Performing Clinician Facility 05-23-2024 11:55-0500 Diastolic blood pressure 73 mm[Hg] [facility] LEON [facility] 05-23-2024 11:55-0500 Heart rate 71 /min Bebeto LEON [facility] 05-23-2024 11:55-0500 Respiratory rate 20 /min Bebeto LEON [facility] Phone[facility] 05-23-2024 11:55-0500 SaO2% (BldA) [Mass fraction] 100 % Bebeto LEON Work Phone[facility] 05-23-2024 11:55-0500 Systolic blood pressure 145 mm[Hg] Bebeto LEON Work Phone: [facility] 04-09-2024 10:12-0400 Body height 175.3 cm Bebeto LEON [facility] Phone[facility] Comment on above: stated 04-09-2024 10:12-0400 Body mass index (BMI) [Ratio] 27.62 kg/m2 Bebeto LEON Work Phone[facility] 04-09-2024 10:12-0400 Body weight 84.82 kg Bebeto LEON Work Phone: [facility] 04-09-2024 10:12-0400 Diastolic blood pressure 97 mm[Hg] Bebeto LEON Work Phone: [facility] 04-09-2024 10:12-0400 Heart rate 63 /min Bebeto LEON Work Phone: [facility] 04-09-2024 10:12-0400 Respiratory rate 16 /min Bebeto LEON Work Phone: [facility] 04-09-2024 10:12-0400 SaO2% (BldA) [Mass fraction] 100 % Bebeto LEON Work Phone: [facility] 04-09-2024 10:12-0400 Systolic blood pressure 141 mm[Hg] Bebeto LEON Work Phone: [facility] Encounters Encounter Date Encounter Type Care Provider Facility Start: 07-22-2024 End: 07-22-2024 ambulatory MARIANA Liu [facility] Start: 07-12-2024 End: 07-22-2024 Refill Liliana Rivera [employer] Work Phone: [facility] Comment on above: Med Change Request Start: 05-23-2024 End: 05-23-2024 Refill Bebeto Espino [employer] Work Phone: [facility] Comment on above: Med Refill Start: 05-23-2024 End: 05-23-2024 Office outpatient visit 15 minutes Bebeto LEON Work Phone: [facility] Comment on above: Lumbosacral 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 (Primary Dx) Start: 05-23-2024 End: 05-23-2024 ambulatory BEBETO HAQ [facility] Start: 05-09-2024 End: 05-09-2024 ambulatory IZZY SAM [facility] Start: 05-03-2024 End: 05-03-2024 ambulatory NAY HYDE [facility] Start: 04-16-2024 End: 04-16-2024 Emergency department patient visit [facility] Start: 04-09-2024 End: 04-09-2024 Office outpatient visit 25 minutes Bebeto LEON Work Phone: [facility] Comment on above: Lumbosacral 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 (Primary Dx) Start: 04-09-2024 End: 04-09-2024 ambulatory [facility] Start: 04-01-2024 End: 04-01-2024 ambulatory [facility] Start: 02-22-2024 End: 02-22-2024 ambulatory [facility] Start: 01-09-2024 End: 01-09-2024 ambulatory [facility] Start: 12-26-2023 End: 12-27-2023 Emergency department patient visit DIVYA Valera CHEMARIA E [facility] Start: 09-22-2023 End: 09-22-2023 ambulatory [facility] Start: 08-02-2023 End: 08-02-2023 ambulatory [facility] Start: 11-14-2022 End: 11-15-2022 ambulatory MARIANA Liu [facility] Facility:H1 Start: 10-24-2022 End: 10-25-2022 ambulatory MARIANA Liu [facility] Facility:H1 Start: 10-03-2022 End: 10-04-2022 ambulatory MARIANA Liu [facility] Facility:H1 Start: 09-12-2022 End: 09-13-2022 ambulatory CHET SHANTANU Facility:H1 Start: 08-23-2022 End: 08-24-2022 ambulatory MARIANA Liu [facility] Facility:H1 Start: 08-16-2022 End: 08-17-2022 ambulatory MARIANA Liu [facility] Facility:H1 Start: 08-09-2022 End: 08-10-2022 [facility] Procedures Date Procedure Procedure Detail Performing Clinician Start: 04-06-2023 Microalbumin [Mass/v olume] in Urine by Test strip Bebeto LEON Work Phone: Plan of Treatment Date Care Activity Detail Author Start: 05-23-2025 Tobacco Screening Tobacco Screening [facility] Start: 04-16-2025 Adult BMI Screening Adult BMI Screen ing [facility] Start: 04-09-2025 Adult BMI Screening Adult BMI Screen ing [facility] Start: 04-09-2025 Tobacco Screening Tobacco Screening [facility] Start: 07-24-2024 End: 07-24-2024 Clinical Support [facility] Start: 07-04-2024 End: 07-04-2024 Patient encounter procedure 07/04/2024 10:00 AM EST Office Visit [facility] [address] [place] [id number] Bebeto Haq PA [address] [place] [address] [facility] Start: 05-23-2024 End: 05-23-2024 Patient encounter procedure 05/23/2024 12:45 PM EST Office Visit [facility] [address] [place] [address] Bebeto Haq PA [address] [place] [address] [facility] Start: 05-03-2024 End: 05-03-2024 Admission to same day surgery center 05/03/2024 8:58 AM EDT - 05/03/2024 9:06 AM EDT Surgery [facility] Procedures [address] [place] [address] Nay Hyde MD [address] [facility] [place] [address] INJECTION BLOCK NERVE MEDIAL BRANCH: bilat L45 51 [13553 (CPT )] [facility] Pain Procedures Comment on above: INJECTION BLOCK NERV E MEDIAL BRANCH: bilat L45 51 [79506 (CPT )] Start: 05-03-2024 End: 05-03-2024 Njx dx/ther agt pvrt facet jt lmbr/sac 1 level INJECTION BLOCK NERVE MEDIAL BRANCH Lumbosacral spondylosis without myelopathy 05/03/2024 8:58 AM EDT [facility] Start: 05-03-2024 Subsequent hospital visit by physician 05/03/2024 8:58 AM EDT Hospital Encounter [facility] Pain Procedures [address] [place] [id number] Nay Hyde MD [address], [place] [id number] [facility] Pain Procedures Start: 04-06-2024 Urine screening for protein Urine Microalbumin [facility] Start: 03-03-2024 COVID-19 Vaccine ( season) COVID-19 Vaccine ( season) [facility] Start: 03-03-2024 COVID-19 Vaccine ( season) COVID-19 Vaccine ( season) [facility] Start: 03-03-2024 Influenza vaccination Influenza Vacc ine [facility] Start: 2019 Abdominal aortic aneurysm screening Abdominal Aortic Aneurysm (AAA) Screen [facility] Start: 2019 Fall Risk Screening Fall Risk Screen ing [facility] Start: 2004 Administration of varicella zoster vaccine Zoster (Shingles) Vaccine (1 of 2) [facility] Start: 1973 DTaP,Tdap and Td Vaccines (1 - Tdap) DTaP,Tdap and Td Vaccines (1 - Tdap) [facility] Start: 1972 Adult BMI Follow Up Plan Adult BMI Follow Up Plan [facility] Start: 1972 Diabetic foot examination Diabetic Foot Exam [facility] Start: 1966 Depression Screening Depression Scre ening [facility] Start: 1954 Glaucoma screening Diabetic Op hthalmology Exam [facility] Start: 1954 Medicare Annual Well ness Visit Medicare [facility] Well[facility] Immunizations Immunization Date Immunization Notes Care Provider Fa ron 04-11-2023 influenza virus vaccine, unspecified formulation Bebeto LEON Work Phone: [facility] 04-19-2021 influenza, injectabl e, quadrivalent, preservative free Bebeto LEON [facility] Phone[facility] 05-18-2018 Influenza, injectabl e, Madin Kristina Canine Kidney, preservative free, quadrivalent Bebeto LEON Work Phone: [facility] 05-10-2017 influenza, seasonal, injectable, preservative free [facility]ebeto LEON [facility] Phone[facility] 03-25-2015 influenza, seasonal, injectable, preservative free Bebeto LEON [facility] Phone[facility] 04-15-2014 influenza, seasonal, injectable Bebeto LEON Work Phone: [facility] [employer] Payers Date Payer Category Payer Medicaid [id number] 1992 Medicare [id number] 1959 Medicaid [id number] 1959 Medicare [id number] 1954 Unknown [id number] 2.16.84 0.1.878350.3.579.2.593 1954 Unknown [id number] 2.16.84 0.1.396506.3.579.2.593 1954 Unknown [id number] 2.16.84 0.1.958329.3.579.2.593 1954 Unknown [id number] 2.16.84 0.1.945169.3.579.2.593 1954 Unknown [id number] 2.16.84 0.1.756183.3.579.2.593 1954 Unknown [id number] 2.16.84 0.1.249651.3.579.2.593 1954 Unknown [id number] 2.16.84 0.1.712405.3.579.2.593 1954 Unknown [id number] 2.16. 840.1.744813.3.579.2.1286 1954 Unknown [id number] 2.16.8 40.1.275868.3.579.2.128 1954 Unknown [id number] 2.16.8 40.1.504712.3.579.2.1286 1954 Unknown [id number] 2.16.8 40.1.750973.3.579.2.128 1954 Unknown [id number] 2.16.8 40.1.978071.3.579.2.1286 1954 Unknown [id number] 2.16.8 40.1.077700.3.579.2.1285 1954 Unknown [id number] 2.16.8 40.1.585757.3.579.2.1286 1954 Unknown [id number] 2.16.8 40.1.272708.3.579.2.1285 1954 Unknown [id number] 2.16.8 40.1.187384.3.579.2.128 1954 Unknown [id number] 2.16.8 40.1.604297.3.579.2.1285 1954 Unknown [id number] 2.16.8 40.1.967169.3.579.2.128 1954 Unknown [id number] 2.16.8 40.1.008548.3.579.2.1285 1954 Unknown [id number] 2.16.8 40.1.357115.3.579.2.1286 1954 Unknown [id number] 2.16.8 40.1.411033.3.579.2.1286 1954 Unknown [id number] 2.16.8 40.1.509069.3.579.2.1286 Social History Date Type Detail Facility Start: 01-09-2024 [facility] History of tobacco use Current smoker [facility] History of tobacco use Cigarette Smoker P [facility] Start: 01-09-2024 Tobacco use and exposure Smokeless tobacco non-user [facility] Start: 04-09-2024 End: 05-23-2024 Alcoholic beverage intake Current non-drinker of alcohol (finding) [facility] Start: 07-18-2020 End: 04-09-2024 History of Social function [facility] Start: 07-18-2020 End: 04-09-2024 Tobacco use panel [facility] Childcare Unknown [facility] Start: 1955 Sex assigned at Not on file P [facility] Start: 02-05-2015 Sex Male (finding) [facility] Medical Equipment Procedure Code Equipment Code Equipment Origin al Text Equipment Identifier Dates Ld Pcng 55cm Rv Sq Scr S Df-4 - [id number] - [id number] Start: 11-20-2018 Lead Capsure Fix Nov[employer] 5076-45 - [id number] - [id number] Start: 11-20-2018 Lead Capsure Fix [employer] 5076-52 - [id number] - [id number] Start: 07-21-2020 Dfbr Crd Evera M ri Xt - [id number] - [id number] Start: 11-20-2018 Sys Crd Rvl Linq Rpl [id number] - [id number] - [id number] Start: 11-16-2018 Start: 01-20-2018 Goals Date Patient Goal Desired Activity /State Personal health goal Comment on above: Formatting of this n ote might be different from the original. Evaluation of progress towards goal: discharge home with latter day/friends support. Personal health goal Comment on above: [...] & Type Note Facility 07-12-2024 Miscellaneous Notes [facility] 03/08/23 Pt has future appt 07/24/24 documented in this encounter [facility] 07-12-2024 Telephone encounter Note [facility] 03/08/23 Pt has future appt 07/24/24 [facility] 05-23-2024 History of Present illness Narrative [facility] [address] [place] [address] Patient: Radha Quiñones Sex: male : 1955 Age: 69 y.o. PCP: [facility] Nathaniel 05/23/2024 Radha Quiñones is here [...] Past Medical History: Diagnosis Date Angina pectoris ([facility]) Arrhythmia Atrial fibrillation ([facility]) Atrial flutter ([facility]) Atrial flutter ([facility]) Benign prostatic hyperplasia BPH with urinary obstruction Cancer ([facility]) skin cancer Cataract Constipation Coronary artery disease Dental disease no teeth Diabetes mellitus ([facility]) Diabetes mellitus type 2, controlled ([facility]) Hypercholesterolemia Hypertension Myositis Peripheral neuropathy Rash Scalp wound Urinary incontinence Ventricular tachycardia ([facility]) Visual impairment glasses Past Surgical History: Procedure Laterality Date 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; excision and debridement Left 10/29/2021 Performed by Ambrosio Al MD at [facility] AMPUTATION TOE 4TH & 5TH/WIDE INCISIONAL DEBRIDEMENT LEFT DIABETIC FOOT NECROTIZING FASCITIS Left 08/12/2021 Performed by Ambrosio Al MD at [facility] CARDIAC DEFIBRILLATOR PLACEMENT medtronic CATARACT EXTRACTION Coronary angiogram and left ventricular gram/pressure N/A 11/19/2018 Performed by Sage Jay MD at [facility] CARDIAC CATH LABS Coronary fractional flow reserve N/A 11/19/2018 Performed by Sage Jay MD at [facility] CARDIAC CATH LABS CYSTOSCOPY [facility] SOLUTION N/A 10/27/2021 Performed by Frederic Thorne MD at [facility] DC ICD RA lead replace - MDT N/A 07/21/2020 Performed by Yoni Espinoza MD at [facility] (EP) EP - Device DC ICD Left 11/20/2018 Performed by Shayna Betancourt MD at [facility] (EP) EP - Diagnostic-- EP study Right 11/16/2018 Performed by Rafita Garcia MD at [facility] (EP) INJECTION BLOCK NERVE MEDIAL BRANCH: bilat L 4/, 10/31 Bilateral 05/03/2024 Performed by Nay Hyde MD at [facility] Loop recorder implant N/A 11/16/2018 Performed by Rafita Garcia MD at [facility] (EP) Loop recorder removal N/A 07/21/2020 Performed by Yoni Espinoza MD at [facility] (EP) SKIN CANCER EXCISION No Known [...] Benavides 05/23/24 1349 documented [facility] this encounter [facility] 05-23-2024 Miscellaneous Notes Last OV 03/08/23. Letter sent to pt 02/23. Attempted to call pt, no VM box set up. Letter sent. Pt will need appointment for future refills. documented in this encounter [facility] 05-23-2024 Telephone encounter Note Last OV 03/08/23. Letter sent to pt 02/23. Attempted to call pt, no VM box set up. Letter sent. Pt will need appointment for future refills. [facility] 04-09-2024 History of Present illness Narrative [facility] [address] [place] [address] Patient: Radha Quiñones Sex: male : 1955 Age: 68 y.o. PCP: [facility] 04/09/2024 Radha Quiñones is here for a(n) [...] Date Angina pectoris (CMS-HCC) Arrhythmia Atrial fibrillation ([facility]) Atrial flutter ([facility]) Atrial flutter ([facility]) Benign prostatic hyperplasia BPH with urinary obstruction Cancer ([facility]) skin cancer Cataract Constipation Coronary artery disease Dental disease no teeth Diabetes mellitus ([facility]) Diabetes mellitus type 2, controlled ([facility]) Hypercholesterolemia Hypertension Myositis Peripheral neuropathy Rash Scalp wound Urinary incontinence Ventricular tachycardia ([facility]) Visual impairment glasses Past Surgical History: Procedure Laterality Date 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; excision and debridement Left 10/29/2021 Performed by Ambrosio Al MD at [facility] AMPUTATION TOE 4TH & 5TH/WIDE INCISIONAL DEBRIDEMENT LEFT DIABETIC FOOT NECROTIZING FASCITIS Left 08/12/2021 Performed by Ambrosio Al MD at [facility] CARDIAC DEFIBRILLATOR PLACEMENT medtronic CATARACT EXTRACTION Coronary angiogram and left ventricular gram/pressure N/A 11/19/2018 Performed by Sage Jay MD at [facility] CARDIAC CATH LABS Coronary fractional flow reserve N/A 11/19/2018 Performed by Sage Jay MD at [facility] CARDIAC CATH LABS CYSTOSCOPY [facility] SOLUTION N/A 10/27/2021 Performed by Frederic Thorne MD at [facility] DC ICD RA lead replace - MDT N/A 07/21/2020 Performed by Yoni Espinoza MD at [facility] (EP) EP - Device DC ICD Left 11/20/2018 Performed by Shayna Betancourt MD at [facility] (EP) EP - Diagnostic-- EP study Right 11/16/2018 Performed by Rafita Garcia MD at [facility] (EP) Loop recorder implant N/A 11/16/2018 Performed by Rafita Garcia MD at [facility] (EP) Loop recorder removal N/A 07/21/2020 Performed by Yoni Espinoza MD at [facility] (EP) SKIN CANCER EXCISION No Known [...] these patients; however, close collaboration with a body shop estimator or travel service consultant is recommended before initiating the RFN procedure, therefore prior to RFA we will consult with patient's body shop estimator/travel service consultant for approval and recommendations to proceed with [...] Benavides 04/11/24 1226 documented in this encounter [facility] [place] 04-09-2024 Instructions Chula Bonilla CNA - 04/09/2024 [...] nearest emergency room. [facility]-09-2022 Note PROCEDURE: XR FOOT L T [...] by: EDILSON DON Date: 2022-08-09 15:44 [facility] Evaluation note Diagnosis Lumbosacral spondylosis without myelopathy- Primary Lumbosacral spondylosis without myelopathy- Primary Lumbosacral spondylosis without myelopathy documented in this encounter [facility]* Diagnosis Enuresis- Primary Functional urinary [...] Paroxysmal ventricular tachycardia documented in this encounter [facility] Diagnosis Enuresis- Primary Functional urinary incontinence BPH (benign prostatic hypertrophy) with urinary obstruction- Primary Hypertrophy of prostate with urinary obstruction and other lower urinary tract symptoms (LUTS) Benign prostatic hyperplasia with urinary obstruction- Primary Urinary retention- Primary Unspecified retention of urine Benign prostatic hyperplasia with urinary obstruction Lumbosacral spondylosis without myelopathy- Primary [facility] Enuresis- Primary Functional urinary incontinence BPH (benign prostatic hypertrophy) with urinary obstruction- Primary Hypertrophy of prostate with urinary obstruction and other lower urinary tract symptoms (LUTS) Benign prostatic hyperplasia with urinary obstruction- Primary Urinary retention- Primary Unspecified retention of urine Benign prostatic hyperplasia with urinary obstruction Ventricular tachycardia (CMS-HCC) Paroxysmal ventricular tachycardia Atrial fibrillation with RVR ([facility]) V-tach ([facility]) Paroxysmal ventricular tachycardia [facility] filedocumented in [facility] filed[facility]ed in [facility] Summary Purpose Family History No Family [...] EDWARD [address] [place] [address] Referral ID Status Reason Start Date Expiration Date V isits Requested Visits Authorized [id number] Pending Review 04/09/2024 04/09/2025 1 1 Additional Source Comments (unrecognized sect ion and content) No Status Records FoundNo Status Records Found INFORMATION SOURCE (unrecogn ized section and content) DATE CREATED AUTHOR 11/16/2022 [facility]richard DATE CREATED AUTHOR AUTHOR'S ORGANLISSY ATMEI 07/24/2024 [facility] Reason for Visit (unrecogniz ed section and content) Reason Comments Back Pain Reason Comments Med Refill Reason Comments Back Pain Reason Comments Med Change Request Care Teams (unrecognized sec tion and content) Sas Programmer Relationship Specialty Start Date End Date Services[address] [place] PCP - General Family Medicine 12/26/23 Sas Programmer Relationship Specialty Start Date End Date [place] [address] [place] PCP - General Family Medicine 04/16/24 Sas Programmer Relationship Specialty Start Date End Date [place] [address] [place] PCP - General Family Medicine 04/16/24 Sas Programmer Relationship Specialty Start Date End Date [place] [address] [place] PCP - General Family Medicine 04/16/24 [...] BE BASED ON THE PRIMARY CLINICAL RECORDS. [facility] provides no warranty or guarantee of the accuracy or completeness of information in this document.
[2024-07-31 14:29] LABS: Alanine Aminotransferase 15 U/L (16-63); Albumin Globulin Ratio 0.9; Albumin Level 3.8 g/dL (3.4-5.0); Alkaline Phosphatase 59 U/L (46-116); Anion Gap 15.8; Aspartate Amino Transferase 10 U/L (15-37); BUN Creatinine Ratio 7.6; Bilirubin Total 0.3 mg/dL (0.2-1.0); Calcium 9.5 mg/dL (8.5-10.1); Carbon Dioxide 27.1 mmol/L (21.0-32.0); Chloride 100 mmol/L (98-107); Chol HDL Ratio 5.3; Cholesterol 163 mg/dL (<=200); Estimated GFR (African America 48 (>=60 mL/min/1.73m^2); Estimated GFR (Non-African Ame 40 (>=60 mL/min/1.73m^2); Globulin 4.3 g/dL; Glucose 186 mg/dL (74-106); HDL Cholesterol 31 mg/dL (40-60); Magnesium 1.9 mg/dL (1.8-2.4); Potassium 3.9 mmol/L (3.5-5.1); Sodium 139 mmol/L (136-145); Total Protein 8.1 g/dL (6.4-8.2); Triglycerides 276 mg/dL (<=150); VLDL CHOLESTEROL 55.2 mg/dL
== END 2024-07-31 13:32 | disposition home or self-care (01) ==
LOC: LAB 13:32
PROVIDERS: Visit Provider Internal Medicine
DX: E78.5 Hyperlipidemia, unspecified (principal); I10 Essential (primary) hypertension; E83.42 Hypomagnesemia
CPT/HCPCS: 36415; 80053; 80061; 83735

== ENCOUNTER 2024-08-01 13:08 | Outpatient (OUT) | payer MEDICARE, MEDICAID, SELFPAY ==
--- NOTE | 2024-08-01 13:14 | VEIN_ITS ---
The [address] [address] Patient Name: RADHA QUIÑONES MRN: [id number] date: 1955 Sex: M Assigned Patient Location: VC Current Patient Location: Accession/Order Number: [id number] Exam Date: 08/01/2024 13:16 Report Date: 08/01/2024 16:15 At the request of: MARIANA PHILLIPS Procedure: VC SEGMENTAL PRESSURES EXAM: VC SEGMENTAL PRESSURES HISTORY: R09.89 COMPARISON: None. TECHNIQUE: Resting ABIs and segmental pressures were obtained FINDINGS: Right resting KELLEY abnormally elevated due to vascular rigidity. Left resting KELLEY abnormally elevated due to vascular rigidity. Waveforms were monophasic. Recommend CTA. VEIN/VC SEGMENTAL PRESSURES IMPRESSION: Nondiagnostic ABIs and segmental pressures due to vascular rigidity. Recommend CTA. Electronically authenticated by: Eda RODRÍGUEZ Date: 08/01/2024 16:15
--- OUTSIDE RECORDS SUMMARY | 2024-08-01 13:26 | XMS_ITS | CCD ---
Author Organization [facility] Care Team Providers Care Helper Electrical Name Role Phone MARIANA PHILLIPS Attending Unavailable [...] [employer] Unavailable CARMENANDERMARIANA Attending Unavailable Services, [facility] Primary Care Provider Services, [facility] Primary Care Provider IZZY SAM Referring Unavailable IZZY SAM Primary Care Unavailable DIVYA GONZALES Attending Unavailable SERVICES, [facility] Primary Care Unava ilable DIVYA GONZALES Attending Unavailable DIVYA GONZALES Referring Unavailable SERVICES, [facility] Primary Care Unava ilable DIVYA GONZALES Attending Unavailable DIVYA GONZALES Referring Unavailable SERVICES, [facility] Primary Care Unava ilable BEBETO HAQ Attending Unavailable JACKIE BARRERA Referring Unavailable SERVICES, [facility] Primary Care Unava ilable BEBETO HAQ Attending Unavailable NAY HYDE Referring Unavailable SERVICES, [facility] Primary Care Unava ilable BEBETO HAQ Attending Unavailable BEBETO HAQ Referring Unavailable SERVICES, [facility] Primary Care Unava ilable BEBETO HAQ Attending Unavailable NAY HYDE Referring Unavailable SERVICES, [facility] Primary Care Unava ilable SERVICES, [facility] Primary Care Unava ilable DIVYA GONZALES Attending Unavailable NAY HYDE Admitting Unavailable NAY HYDE Attending Unavailable NAY HYDE Referring Unavailable NAY HYDE Attending Unavailable NAY HYDE Referring Unavailable SERVICES, [facility] IZZY SAM Referring Unavailable SERVICES, [facility] BEBETO HAQ Attending Unavailable NAY HYDE Referring Unavailable SERVICES, [facility] MARIANA PHILLIPS Referring Unavailable SERVICES, [facility] IZZY SAM Referring Unavailable IZZY SAM Primary [...] under the skin nightly. Active lactobacillus acidophilus [id number] unt / pectin 10 mg oral capsule [...] Coronary atherosclerosis; 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: [Atherosclerotic heart disease of [place] coronary artery without angina pectoris] Onset: 12-04-2018 [...] 07-22-19 ABSOLUTE BASOPHIL 0.0 X10E9/L Normal 0.0-0.2 [facility] Comment on above: Performed By: #### C BCA, CMP #### [facility] ([id number]) [address] [place] [address] 81048 #### 2857-1, 91712-6, 80086-8, FEPR, 2276-4 #### [facility] ([id number]) [address] [address], [address] [place] [address] ABSOLUTE NEUTROPHIL 3.8 X10E9/L Normal 1.5-6.6 [facility] Comment on above: Performed By: #### C BCA, CMP #### [facility] ([id number]) [address] [place] [address] 73422 #### 2857-1, 50124-9, 70263-7, FEPR, 2276-4 #### [facility] ([id number]) [address] [address], [address] [place] [address] Basophils/100 WBC (Bld) 0.8 % Normal [facility] Comment on above: Performed By: #### C BCA, CMP #### [facility] ([id number]) [address] [place] [address] 36068 #### 2857-1, 21077-9, 04507-5, FEPR, 2276-4 #### [facility] ([id number]) [address], [address] [place] [address] Eosinophils (Bld) [#/Vol] 0.0 10*3/uL Normal 0.0-0.4 [facility] Comment on above: Performed By: #### C BCA, CMP #### [facility] ([id number]) [address] [place] [address] 09904 #### 2857-1, 03712-0, 59743-6, FEPR, 2276-4 #### [facility] ([id number]) [address], [address] [place] [address] Eosinophils/100 WBC (Bld) 0.7 % Normal [facility] Comment on above: Performed By: #### C GARDENIA, CMP #### [facility] ([id number]) [address] [place] [address] 37930 #### 2857-1, 54203-8, 32289-3, FEPR, 2276-4 #### [facility] ([id number]) [address] [facility], [address] [place] [address] Erythrocyte distribution width (RBC) [Ratio] 14.6 % Normal 11.5-15.0 [facility] Comment on above: Performed By: #### C GARDENIA, CMP #### [facility] ([id number]) [address] [place] [address] 33120 #### 2857-1, 63339-8, 94953-5, FEPR, 2276-4 #### [facility] ([id number]) [address] [facility], [address] [place] [address] Hematocrit (Bld) [Volume fraction] 42.0 % Normal 39-49 [facility] Comment on above: Performed By: #### C BCA, CMP #### [facility] ([id number]) [address] [place] [address] 51394 #### 2857-1, 85739-1, 60365-0, FEPR, 2276-4 #### [facility] ([id number]) [address], [address] [place] [address] Hemoglobin (Bld) [Mass/Vol] 13.9 g/dL Normal 13.0-17.0 [facility] Comment on above: Performed By: #### C BCA, CMP #### [facility] ([id number]) [address] [place] [address] 26666 #### 2857-1, 34142-3, 89396-6, FEPR, 2276-4 #### [facility] ([id number]) [address] [facility], [address] [place] [address] Lymphocytes (Bld) [#/Vol] 1.5 10*3/uL Normal 1.0-3.5 [facility] Comment on above: Performed By: #### C BCA, CMP #### [facility] ([id number]) [address] [place] [address] 41624 #### 2857-1, 36516-2, 30334-7, FEPR, 2276-4 #### [facility] ([id number]) [address], [address] [place] [address] Lymphocytes/100 WBC (Bld) 24.7 % Normal [facility] Comment on above: Performed By: #### C BCA, CMP #### [facility] ([id number]) [address] [place] [address] 26392 #### 2857-1, 07773-5, 90484-0, FEPR, 2276-4 #### [facility] ([id number]) [address], [address] [place] [address] MCH (RBC) [Entitic mass] 30.7 pg Normal 27-34 [facility] Comment on above: Performed By: #### C BCA, CMP #### [facility] ([id number]) [address] [place] [address] 92584 #### 2857-1, 72399-3, 48321-1, FEPR, 2276-4 #### [facility] ([id number]) [address], [address] [place] [address] MCHC (RBC) [Mass/Vol] 33.0 g/dL Normal 32-36 [facility] Comment on above: Performed By: #### C BCA, CMP #### [facility] ([id number]) [address] [place] [address] 65668 #### 2857-1, 55790-9, 84163-7, FEPR, 6-4 #### [facility] ([id number]) [address], [address] [place] [address] MCV (RBC) [Entitic vol] 93 fL Normal 80-100 [facility] Comment on above: Performed By: #### C BCA, CMP #### [facility] ([id number]) [address] [place] [address] 22763 #### 2857-1, 66714-0, 29419-2, FEPR, 2275-4 #### [facility] ([id number]) [address], [address] [place] [address] Monocytes (Bld) [#/Vol] 0.6 10*3/uL Normal 0-0.9 [facility] Comment on above: Performed By: #### C BCA, CMP #### [facility] ([id number]) [address] [place] [address] 33869 #### 2857-1, 30070-2, 97228-7, FEPR, 2276-4 #### [facility] ([id number]) [address], [address] [place] [address] Monocytes/100 WBC (Bld) 9.7 % Normal [facility] Comment on above: Performed By: #### C BCA, CMP #### [facility] ([id number]) [address] [place] [address] 04926 #### 2857-1, 32296-4, 46717-3, FEPR, 2276-4 #### [facility] ([id number]) [address], [address] [place] [address] Neutrophils/100 WBC (Bld) 64.1 % Normal [facility] Comment on above: Performed By: #### C BCA, CMP #### [facility] ([id number]) [address] [place] [address] 14037 #### 2857-1, 67793-3, 92750-9, FEPR, 2276-4 #### [facility] ([id number]) [address], [address] [place] [address] Platelet mean volume (Bld) [Entitic vol] 8.2 fL Normal 7-12 [facility] Comment on above: Performed By: #### C BCA, CMP #### [facility] ([id number]) [address] [place] [address] 65527 #### 2857-1, 43991-9, 19723-6, FEPR, 2276-4 #### [facility] ([id number]) [address], [address] [place] [address] Platelets (Bld) [#/Vol] 315 10*3/uL Normal 150-450 [facility] Comment on above: Performed By: #### C BCA, CMP #### [facility] ([id number]) [address] [place] [address] 99102 #### 2857-1, 75405-7, 46772-9, FEPR, 2276-4 #### [facility] ([id number]) [address], [address] [place] [address] RBC COUNT 4.52 X10E12/L Normal 4.10-5.70 [facility] Comment on above: Performed By: #### C BCA, CMP #### [facility] ([id number]) [address] [place] [address] 81786 #### 2857-1, 32514-7, 89027-0, FEPR, 2276-4 #### [facility] ([id number]) [address], [address] [place] [address] WBC (Bld) [#/Vol] 5.9 10*3/uL Normal 4.0-11.0 [facility] Comment on above: Performed By: #### C BCA, CMP #### [facility] ([id number]) [address] [place] [address] 09236 #### 2857-1, 63878-3, 04573-1, FEPR, 2276-4 #### [facility] ([id number]) [address], [address] [place] [address] CRP [Mass/Vol]on 07-22-2024 C REACTIVE PROTEIN 1.9 mg/dL High 0.000-0.744 [facility] Comment on above: Performed By: #### C BCA, CMP #### [facility] ([id number]) [address] [place] [address] 74983 #### 2857-1, 10020-7, 16500-9, FEPR, 2276-4 #### [facility] ([id number]) [address], [address] [place] [address] ESR Photometric method (Bld) [Velocity]on 07-22-2024 ESR, ERYTHROCYTE SEDIMENTATION RATE 47 mm/h High 0-20 [facility] Comment on above: Performed By: #### C BCA, CMP #### [facility] ([id number]) [address] [place] [address] 60262 #### 2857-1, 72250-3, 55171-3, FEPR, 2276-4 #### [facility] ([id number]) [address] [place] [address], [address] [place] [address] HGB A1C (GLYCO-HGB)on 2024 Glucose [Mass/Vol] 203 mg/dL Normal [facility] Comment on above: Performed By: #### C BCA, CMP #### [facility] ([id number]) [address] [place] [address] 21919 #### 2857-1, 16451-1, 30668-2, FEPR, 2276-4 #### [facility] ([id number]) [address] [place] [address], [address] [address] HbA1c (Bld) [Mass fraction] 8.7 % High 4.4-5.6 [facility] Comment on above: Result Comment: NOTE ADA Guidelines Result HgbA1c Normal : less than 5.7 % Prediabetes : 5.7 % to 6.4 % Diabetes : > 6.4 % Use with caution in patients with abnormal hemoglobin variants as the half-life of red blood cells and in vivo glycation rates are affected. Performed By: #### C BCA, CMP #### [facility] ([id number]) [address] [place] [address] 36633 #### 2857-1, 55185-3, 45607-4, FEPR, 2276-4 #### [facility] ([id number]) [address] [place] [address], [address] [place] [address] COMPREHENSIVE METABOLIC PANE Alex 05-09-2024 Albumin [Mass/Vol] 4.2 g/dL Normal 3.2-5.3 [facility] Comment on above: Performed By: #### C BCA, CMP #### [facility] ([id number]) [address] [place] [address] 05659 #### 2857-1, 74921-5, 93972-8, FEPR, 2276-4 #### [facility] ([id number]) [address], [address] [place] [address] ALP [Catalytic activity/Vol] 46 U/L Normal 39-130 [facility] Comment on above: Performed By: #### C BCA, CMP #### [facility] ([id number]) [address] [place] [address] 44480 #### 2857-1, 91637-8, 53361-4, FEPR, 2276-4 #### [facility] ([id number]) [address], [address] [place] [address] ALT [Catalytic activity/Vol] 16 U/L Normal 0-40 [facility] Comment on above: Performed By: #### C BCA, CMP #### [facility] ([id number]) [address] [place] [address] 57414 #### 2857-1, 37579-8, 37543-4, FEPR, 2276-4 #### [facility] ([id number]) [address], [address] [place] [address] Anion gap [Moles/Vol] 10 mmol/L Normal 5-15 [facility] Comment on above: Performed By: #### C BCA, CMP #### [facility] ([id number]) [address] [place] [address] 17402 #### 2857-1, 90856-1, 15834-1, FEPR, 2276-4 #### [facility] ([id number]) [address], [address] [place] [address] AST [Catalytic activity/Vol] 16 U/L Normal 0-41 [facility] Comment on above: Performed By: #### C BCA, CMP #### [facility] ([id number]) [address] [place] [address] 07824 #### 2857-1, 08836-0, 08156-7, FEPR, 2276-4 #### [facility] ([id number]) [address], [address] [place] [address] Bilirubin [Mass/Vol] 0.5 mg/dL Normal 0.3-1.2 [facility] Comment on above: Performed By: #### C BCA, CMP #### [facility] ([id number]) [address] [place] [address] 74638 #### 2857-1, 60441-6, 05822-0, FEPR, 2276-4 #### [facility] ([id number]) [address], [address] [place] [address] Calcium [Mass/Vol] 9.3 mg/dL Normal 8.5-10.5 [facility] Comment on above: Performed By: #### C BCA, CMP #### [facility] ([id number]) [address] [place] [address] 00326 #### 2857-1, 09828-6, 01290-4, FEPR, 2276-4 #### [facility] ([id number]) [address], [address] [place] [address] Chloride [Moles/Vol] 99 mmol/L Normal 98-109 [facility] Comment on above: Performed By: #### C BCA, CMP #### [facility] ([id number]) [address] [place] [address] 28853 #### 2857-1, 81550-8, 95253-4, FEPR, 2276-4 #### [facility] ([id number]) [address], [address] [place] [address] CO2 [Moles/Vol] 26 mmol/L Normal 22-32 [facility] Comment on above: Performed By: #### C BCA, CMP #### [facility] ([id number]) [address] [place] [address] 31437 #### 2857-1, 28296-5, 36891-9, FEPR, 2276-4 #### [facility] ([id number]) [address], [address] [place] [address] Creatinine [Mass/Vol] 1.27 mg/dL High 0.70-1.20 [facility] Comment on above: Result Comment: METH OD TRACEABLE TO IDMS STANDARD Performed By: #### C BCA, CMP #### [facility] ([id number]) [address] [place] [address] 12388 #### 2857-1, 70023-6, 27819-3, FEPR, 2276-4 #### [facility] ([id number]) [address], [address] [place] [address] GFR/1.73 sq M.predicted among non-blacks MDRD (S/P/Bld) [Vol rate/Area] 61 mL/min/{1.73_m2} Normal >59 [facility] Comment on above: Result Comment: Reported eGFR is based on the CKD-EPI 2020 equation that does not use a race coefficient. Performed By: #### C BCA, CMP #### [facility] ([id number]) [address] [place] [address] 22644 #### 2857-1, 01769-0, 79841-4, FEPR, 2276-4 #### [facility] ([id number]) [address], [address] [place] [address] Glucose [Mass/Vol] 177 mg/dL High 65-99 [facility] Comment on above: Performed By: #### C BCA, CMP #### [facility] ([id number]) [address] [place] [address] 61719 #### 2857-1, 12250-1, 46728-7, FEPR, 2276-4 #### [facility] ([id number]) [address], [address] [place] [address] Potassium [Moles/Vol] 4.5 mmol/L Normal 3.5-5.0 [facility] Comment on above: Performed By: #### C BCA, CMP #### [facility] ([id number]) [address] [place] [address] 49144 #### 2857-1, 28689-5, 82882-3, FEPR, 2276-4 #### [facility] ([id number]) [address], [address] [place] [address] Protein [Mass/Vol] 7.6 g/dL Normal 6.0-8.0 [facility] Comment on above: Performed By: #### C BCA, CMP #### [facility] ([id number]) [address] [place] [address] 97380 #### 2857-1, 66316-1, 84565-8, FEPR, 2276-4 #### [facility] ([id number]) [address], [address] [place] [address] Sodium [Moles/Vol] 135 mmol/L Normal 134-146 [facility] Comment on above: Performed By: #### C BCA, CMP #### [facility] ([id number]) [address] [place] [address] 74392 #### 2857-1, 77615-9, 33966-8, FEPR, 2276-4 #### [facility] ([id number]) [address], [address] [place] [address] Urea nitrogen [Mass/Vol] 24 mg/dL Normal 5-27 [facility] Comment on above: Performed By: #### C BCA, CMP #### [facility] ([id number]) [address] [place] [address] 73034 #### 2857-1, 92474-9, 18811-1, FEPR, 2276-4 #### [facility] ([id number]) [address], [address] [place] [address] Lipid 1996 panelon 4 Cholesterol [Mass/Vol] 137 mg/dL Low 150-200 [facility] Comment on above: Performed By: #### C GARDENIA, CMP #### [facility] ([id number]) [address] [place] [address] 58193 #### 2857-1, 12364-5, 11548-2, FEPR, 2276-4 #### [facility] ([id number]) [address], [address] [place] [address] Cholesterol in HDL [Mass/Vol] 32 mg/dL Low >39 [facility] Comment on above: Result Comment: HDL <40 mg/dL - High Risk HDL > or = 40mg/dL- Desirable HDL >60 mg/dL - Negative Risk Performed By: #### C BCA, CMP #### [facility] ([id number]) [address] [place] [address] 44878 #### 2857-1, 66387-0, 19606-5, FEPR, 2276-4 #### [facility] ([id number]) [address], [address] [place] [address] Cholesterol in LDL [Mass/Vol] 50 mg/dL Normal <130 [facility] Comment on above: Result Comment: LDL <100 mg/dL - Desirable LDL >160 mg/dL - High Risk Performed By: #### C BCA, CMP #### [facility] ([id number]) [address] [place] [address] 34888 #### 2857-1, 17815-6, 74732-4, FEPR, 2276-4 #### [facility] ([id number]) [address], [address] [place] [address] Cholesterol in VLDL [Mass/Vol] 55 mg/dL High 0-30 [facility] Comment on above: Performed By: #### C BCA, CMP #### [facility] ([id number]) [address] [place] [address] 08597 #### 2857-1, 91959-4, 46754-1, FEPR, 2276-4 #### [facility] ([id number]) [facility] [facility], [address] [place] [address] CHOLESTEROL:HDL 4.3 Normal 1.0-5.0 [facility] Comment on above: Performed By: #### C BCA, CMP #### [facility] ([id number]) [address] [place] [address] 18227 #### 2857-1, 20942-3, 87927-2, FEPR, 2276-4 #### [facility] ([id number]) [address] [facility], [address] [place] [address] Triglyceride [Mass/Vol] 275 mg/dL High 27-150 [facility] Comment on above: Performed By: #### C BCA, CMP #### [facility] ([id number]) [address] [place] [address] 40454 #### 2857-1, 58235-9, 95216-0, FEPR, 2276-4 #### [facility] ([id number]) [address], [address] [place] [address] TSH WITH REFLEXon 05-09-2024 TSH 4.67 uIU/mL Normal 0.49-4.67 [facility] Comment on above: Performed By: #### C BCA, CMP #### [facility] ([id number]) [address] [place] [address] 31340 #### 2857-1, 12526-5, 04621-4, FEPR, 2276-4 #### [facility] ([id number]) [address], [address] [place] [address] BASIC METABOLIC PANLon 04-16 Anion gap [Moles/Vol] 10 mmol/L Normal 5-15 [facility] Comment on above: Performed By: #### C BCA, CMP #### [facility] ([id number]) [address] [place] [address] 92368 #### 2857-1, 23672-4, 52708-5, FEPR, 6-4 #### [facility] ([id number]) [address], [address] [place] [address] Calcium [Mass/Vol] 9.3 mg/dL Normal 8.5-10.5 [facility] Comment on above: Performed By: #### C BCA, CMP #### [facility] ([id number]) [address] [place] [address] 89111 #### 2857-1, 41557-3, 99343-2, FEPR, 2276-4 #### [facility] ([id number]) [address], [address] [place] [address] Chloride [Moles/Vol] 101 mmol/L Normal 98-109 [facility] Comment on above: Performed By: #### C BCA, CMP #### [facility] ([id number]) [address] [place] [address] 65672 #### 2857-1, 13200-1, 79356-9, FEPR, 2276-4 #### [facility] ([id number]) [address], [address] [place] [address] CO2 [Moles/Vol] 27 mmol/L Normal 22-32 [facility] Comment on above: Performed By: #### C BCA, CMP #### [facility] ([id number]) [address] [place] [address] 39289 #### 2857-1, 26685-5, 76393-3, FEPR, 2276-4 #### [facility] ([id number]) [address] [facility], [address] [place] [address] Creatinine [Mass/Vol] 1.19 mg/dL Normal 0.70-1.20 [facility] Comment on above: Result Comment: METH OD TRACEABLE TO IDMS STANDARD Performed By: #### C BCA, CMP #### [facility] ([id number]) [address] [place] [address] 62547 #### 2857-1, 12448-6, 57696-4, FEPR, 2276-4 #### [facility] ([id number]) [address], [address] [place] [address]60 GFR/1.73 sq M.predicted among non-blacks MDRD (S/P/Bld) [Vol rate/Area] 66 mL/min/{1.73_m2} Normal >59 [facility] Comment on above: Result Comment: Reported eGFR is based on the CKD-EPI 2020 equation that does not use a race coefficient. Performed By: #### C BCA, CMP #### [facility] ([id number]) [address] [place] [address] 74622 #### 2857-1, 31484-9, 26842-7, FEPR, 2276-4 #### [facility] ([id number]) [address], [address] [place] [address] Glucose [Mass/Vol] 165 mg/dL High 65-99 [facility] Comment on above: Performed By: #### C BCA, CMP #### [facility] ([id number]) [address] [place] [address] #### 2857-1, 64830-9, 27513-0, FEPR, 2276-4 #### [facility] ([id number]) [address], [address] [place] [address] Potassium [Moles/Vol] 4.2 mmol/L Normal 3.5-5.0 [facility] Comment on above: Performed By: #### C BCA, CMP #### [facility] ([id number]) [address] [place] [address] #### 2857-1, 08746-6, 86143-1, FEPR, 2276-4 #### [facility] ([id number]) [address], [address] [place] [address] Sodium [Moles/Vol] 138 mmol/L Normal 134-146 [facility] Comment on above: Performed By: #### C BCA, CMP #### [facility] ([id number]) [address] [place] [address] #### 2857-1, 20853-4, 13606-2, FEPR, 2276-4 #### [facility] ([id number]) [address], [address] [place] [address] Urea nitrogen [Mass/Vol] 17 mg/dL Normal 5-27 [facility] Comment on above: Performed By: #### C BCA, CMP #### [facility] ([id number]) [address] [place] [address] #### 2857-1, 22489-8, 51116-0, FEPR, 2276-4 #### [facility] ([id number]) [address], [address] [place] [address] CBC AND AUTO DIFFon 10-15-20 24 ABSOLUTE BASOPHIL 0.0 X10E9/L Normal 0.0-0.2 [facility] Comment on above: Performed By: #### C BCA, CMP #### [facility] ([id number]) [address] [place] [address] #### 2857-1, 91249-1, 48455-8, FEPR, 2276-4 #### [facility] ([id number]) [address] [facility], [address] [place] [address] ABSOLUTE NEUTROPHIL 4.0 X10E9/L Normal 1.5-6.6 [facility] Comment on above: Performed By: #### C BCA, CMP #### [facility] ([id number]) [address] [place] [address] #### 2857-1, 12373-4, 89880-0, FEPR, 2276-4 #### [facility] ([id number]) [address], [address] [place] [address] Basophils/100 WBC (Bld) 0.5 % Normal [facility] Comment on above: Performed By: #### C BCA, CMP #### [facility] ([id number]) [address] [place] [address] #### 2857-1, 62191-7, 28260-4, FEPR, 2276-4 #### [facility] ([id number]) [address], [address] [place] [address] Eosinophils (Bld) [#/Vol] 0.0 10*3/uL Normal 0.0-0.4 [facility] Comment on above: Performed By: #### C GARDENIA, CMP #### [facility] ([id number]) [address] [place] [address]3271 #### 2857-1, 53552-3, 38830-6, FEPR, 2276-4 #### [facility] ([id number]) [address], [address] [place] [address] Eosinophils/100 WBC (Bld) 0.4 % Normal [facility] Comment on above: Performed By: #### C GARDENIA, CMP #### [facility] ([id number]) [address] [place] [address] #### 2857-1, 50146-2, 84056-9, FEPR, 2276-4 #### [facility] ([id number]) [address] [facility], [address] [place] [address] Erythrocyte distribution width (RBC) [Ratio] 15.7 % High 11.5-15.0 [facility] Comment on above: Performed By: #### C GARDENIA, CMP #### [facility] ([id number]) [address] [place] [address]266 #### 2857-1, 02064-2, 82329-0, FEPR, 2276-4 #### [facility] ([id number]) [address], [address] [place] [address] Hematocrit (Bld) [Volume fraction] 39.9 % Normal 39-49 [facility] Comment on above: Performed By: #### C BCA, CMP #### [facility] ([id number]) [address] [place] [address] 45569 #### 2857-1, 30639-9, 70790-4, FEPR, 2276-4 #### [facility] ([id number]) [address], [address] [place] [address] Hemoglobin (Bld) [Mass/Vol] 13.1 g/dL Normal 13.0-17.0 [facility] Comment on above: Performed By: #### C BCA, CMP #### [facility] ([id number]) [address] [place] [address] 52802 #### 2857-1, 74078-5, 20333-8, FEPR, 2276-4 #### [facility] ([id number]) [address], [address] [place] [address] Lymphocytes (Bld) [#/Vol] 1.1 10*3/uL Normal 1.0-3.5 [facility] Comment on above: Performed By: #### C BCA, CMP #### [facility] ([id number]) [address] [place] [address] 34026 #### 2857-1, 79816-2, 26137-3, FEPR, 2276-4 #### [facility] ([id number]) [address], [address] [place] [address] Lymphocytes/100 WBC (Bld) 18.2 % Normal [facility] Comment on above: Performed By: #### C BCA, CMP #### [facility] ([id number]) [address] [place] [address] 11733 #### 2857-1, 42694-3, 52073-6, FEPR, 2276-4 #### [facility] ([id number]) [address], [address] [place] [address] MCH (RBC) [Entitic mass] 30.6 pg Normal 27-34 [facility] Comment on above: Performed By: #### C BCA, CMP #### [facility] ([id number]) [address] [place] [address] 42145 #### 2857-1, 46135-8, 35342-4, FEPR, 2276-4 #### [facility] ([id number]) [address], [address] [place] [address] MCHC (RBC) [Mass/Vol] 32.8 g/dL Normal 32-36 [facility] Comment on above: Performed By: #### C BCA, CMP #### [facility] ([id number]) [address] [place] [address] 99292 #### 2857-1, 32320-9, 18884-1, FEPR, 6-4 #### [facility] ([id number]) [address], [address] [place] [address] MCV (RBC) [Entitic vol] 93 fL Normal 80-100 [facility] Comment on above: Performed By: #### C BCA, CMP #### [facility] ([id number]) [address] [place] [address] 30482 #### 2857-1, 95170-7, 58135-8, FEPR, 2275-4 #### [facility] ([id number]) [address], [address] [place] [address] Monocytes (Bld) [#/Vol] 0.8 10*3/uL Normal 0-0.9 [facility] Comment on above: Performed By: #### C BCA, CMP #### [facility] ([id number]) [address] [place] [address] 10812 #### 2857-1, 91438-8, 23410-7, FEPR, 2276-4 #### [facility] ([id number]) [address], [address] [place] [address] Monocytes/100 WBC (Bld) 13.5 % Normal [facility] Comment on above: Performed By: #### C BCA, CMP #### [facility] ([id number]) [address] [place] [address] 98924 #### 2857-1, 26822-3, 37100-9, FEPR, 2276-4 #### [facility] ([id number]) [address], [address] [place] [address] Neutrophils/100 WBC (Bld) 67.4 % Normal [facility] Comment on above: Performed By: #### C BCA, CMP #### [facility] ([id number]) [address] [place] [address] 95517 #### 2857-1, 74976-9, 73303-4, FEPR, 2276-4 #### [facility] ([id number]) [address], [address] [place] [address] Platelet mean volume (Bld) [Entitic vol] 7.4 fL Normal 7-12 [facility] Comment on above: Performed By: #### C BCA, CMP #### [facility] ([id number]) [address] [place] [address] 58571 #### 2857-1, 16924-2, 22207-4, FEPR, 2276-4 #### [facility] ([id number]) [address], [address] [place] [address] Platelets (Bld) [#/Vol] 284 10*3/uL Normal 150-450 [facility] Comment on above: Performed By: #### C BCA, CMP #### [facility] ([id number]) [address] [place] [address] 72322 #### 2857-1, 16337-3, 60364-2, FEPR, 2276-4 #### [facility] ([id number]) [address], [address] [place] [address] RBC COUNT 4.27 X10E12/L Normal 4.10-5.70 [facility] Comment on above: Performed By: #### C BCA, CMP #### [facility] ([id number]) [address] [facility], [place] [address] #### 2857-1, 87447-3, 23146-3, FEPR, 2276-4 #### [facility] ([id number]) [address], [address] [place] [address] WBC (Bld) [#/Vol] 5.9 10*3/uL Normal 4.0-11.0 [facility] Comment on above: Performed By: #### C BCA, CMP #### [facility] ([id number]) [address] [place] [address], [place] [address] #### 2857-1, 88778-9, 75808-7, FEPR, 2276-4 #### [facility] ([id number]) [address], [address] [place] [address] CT BRAIN WO CONTon CT BRAIN WO [...] Avila DO on 04/16/2024 2:16 PM Normal [facility] CT CERVICAL SPINE WO CONTon 04-16-2024 [...] Avila DO on 04/16/2024 2:24 PM Normal [facility] CT FACIAL BONES WO CONTon CT [...] Morris Lau on 04/16/2024 2:30 PM Normal [facility] PROTIME AND INRon 04-16-2024 INR Coag (PPP) [Relative time] 2.1 {INR} High 0.8-1.1 [facility] Comment on above: Performed By: #### C [place] #### [facility] ([id number]) [address] [place] [address] #### 2857-1, 19449-3, 96696-2, FEPR, 2276-4 #### [facility] ([id number]) [address], [address] [place] [address] PT Coag (PPP) [Time] 23.7 s High 9.8-13.2 [facility] Comment on above: Result Comment: NEW REFERENCE RANGE Performed By: #### C BCA, CMP #### [facility] ([id number]) [address] [place] [address] 53272 #### 2857-1, 34436-1, 25171-5, FEPR, 2276-4 #### [facility] ([id number]) [address], [address] [place] [address] aPTT Coag (PPP) [Time]on aPTT Coag (Bld) [Time] 48 s High 26-37 [facility] Comment on above: Result Comment: NEW REFERENCE RANGE Performed By: #### C BCA, CMP #### [facility] ([id number]) [address] [place] [address] 90341 #### 2857-1, 26672-8, 22741-8, FEPR, 2276-4 #### [facility] ([id number]) [address], [facility] [address] [place] [address] MR LUMBAR SPINE WO CONTon MR LUMBAR [...] Stephens MD on 04/01/2024 10:47 PM Normal [facility] XR HIP LT 2-3 VIEWS W [...] Jaramillo MD on 12/26/2023 10:07 AM Normal [facility] XR SPINE LUMBAR 2 OR 3 [...] Jaramillo MD on 12/26/2023 10:10 AM Normal [facility] CBC AND AUTO DIFFon 09-22-19 24 ABSOLUTE BASOPHIL 0.0 X10E9/L Normal 0.0-0.2 [facility] Comment on above: Performed By: #### C BCA, CMP, THYR #### [facility] ([id number]) [address] [place] [address], [place] [address] #### 2857-1, 28914-1, 63560-7 #### [facility] ([id number]) [address] [facility], [address] [place] [address] ABSOLUTE NEUTROPHIL 4.3 X10E9/L Normal 1.5-6.6 [facility] Comment on above: Performed By: #### C BCA, CMP, THYR #### [facility] ([id number]) [address] [place] [address] 19355 #### 2857-1, 25430-0, 97286-0 #### [facility] ([id number]) [address] [facility], [address] [place] [address] Basophils/100 WBC (Bld) 0.5 % Normal [facility] Comment on above: Performed By: #### C BCA, CMP, THYR #### [facility] ([id number]) [address] [place] [address] 71324 #### 2857-1, 34307-2, 16651-0 #### [facility] ([id number]) [address] [facility], [address] [place] [address] Eosinophils (Bld) [#/Vol] 0.0 10*3/uL Normal 0.0-0.4 [facility] Comment on above: Performed By: #### C BCA, CMP, THYR #### [facility] ([id number]) [address] [place] [address] 19127 #### 2857-1, 26832-2, 36865-3 #### [facility] ([id number]) [address] [facility], [address] [place] [address] Eosinophils/100 WBC (Bld) 0.7 % Normal [facility] Comment on above: Performed By: #### C BCA, CMP, THYR #### [facility] ([id number]) [address] [place] [address] 96277 #### 2857-1, 62139-9, 56721-0 #### [facility] ([id number]) [address] [facility], [address] [place] [address] Erythrocyte distribution width (RBC) [Ratio] 15.8 % High 11.5-15.0 [facility] Comment on above: Performed By: #### C BCA, CMP, THYR #### [facility] ([id number]) [address] [place] [address] 68388 #### 2857-1, 59039-2, 97340-3 #### [facility] ([id number]) [address], [address] [place] [address] Hematocrit (Bld) [Volume fraction] 39.8 % Normal 39-49 [facility] Comment on above: Performed By: #### C BCA, CMP, THYR #### [facility] ([id number]) [address] [place] [address] 81656 #### 2857-1, 75882-0, 73557-3 #### [facility] ([id number]) [address], [address] [place] [address] Hemoglobin (Bld) [Mass/Vol] 13.2 g/dL Normal 13.0-17.0 [facility] Comment on above: Performed By: #### C BCA, CMP, THYR #### [facility] ([id number]) [address] [place] [address] 96552 #### 2857-1, 68938-9, 58452-6 #### [facility] ([id number]) [address], [address] [place] [address] Lymphocytes (Bld) [#/Vol] 1.1 10*3/uL Normal 1.0-3.5 [facility] Comment on above: Performed By: #### C BCA, CMP, THYR #### [facility] ([id number]) [address] [place] [address] 15288 #### 2857-1, 61892-8, 08190-1 #### [facility] ([id number]) [address], [address] [place] [address] Lymphocytes/100 WBC (Bld) 17.7 % Normal [facility] Comment on above: Performed By: #### C BCA, CMP, THYR #### [facility] ([id number]) [address] [place] [address] 46613 #### 2857-1, 21763-9, 83933-4 #### [facility] ([id number]) [address], [address] [place] [address] MCH (RBC) [Entitic mass] 29.8 pg Normal 27-34 [facility] Comment on above: Performed By: #### C BCA, CMP, THYR #### [facility] ([id number]) [address] [place] [address] 88063 #### 2857-1, 32688-5, 66913-0 #### [facility] ([id number]) [address], [address] [place] [address] MCHC (RBC) [Mass/Vol] 33.1 g/dL Normal 32-36 [facility] Comment on above: Performed By: #### C BCA, CMP, THYR #### [facility] ([id number]) [address] [place] [address] 92330 #### 2857-1, 31457-3, 40755-3 #### [facility] ([id number]) [address], [address] [place] [address] MCV (RBC) [Entitic vol] 90 fL Normal 80-100 [facility] Comment on above: Performed By: #### C BCA, CMP, THYR #### [facility] ([id number]) [address] [place] [address] 80690 #### 2857-1, 17576-0, 99106-1 #### [facility] ([id number]) [address], [address] [place] [address] Monocytes (Bld) [#/Vol] 0.8 10*3/uL Normal 0-0.9 [facility] Comment on above: Performed By: #### C BCA, CMP, THYR #### [facility] ([id number]) [address] [place] [address] 60848 #### 2857-1, 20361-8, 84718-3 #### [facility] ([id number]) [address], [address] [place] [address] Monocytes/100 WBC (Bld) 12.8 % Normal [facility] Comment on above: Performed By: #### C BCA, CMP, THYR #### [facility] ([id number]) [address] [place] [address] 06965 #### 2857-1, 33509-0, 49644-9 #### [facility] ([id number]) [address], [address] [place] [address] Neutrophils/100 WBC (Bld) 68.3 % Normal [facility] Comment on above: Performed By: #### C BCA, CMP, THYR #### [facility] ([id number]) [address] [place] [address] 51308 #### 2857-1, 31411-1, 52351-4 #### [facility] ([id number]) [address], [address] [place] [address] Platelet mean volume (Bld) [Entitic vol] 7.8 fL Normal 7-12 [facility] Comment on above: Performed By: #### C BCA, CMP, THYR #### [facility] ([id number]) [address] [place] [address] 50371 #### 2857-1, 18014-9, 70975-3 #### [facility] ([id number]) [address], [address] [place] [address] Platelets (Bld) [#/Vol] 259 10*3/uL Normal 150-450 [facility] Comment on above: Performed By: #### C BCA, CMP, THYR #### [facility] ([id number]) [address] [place] [address] 13867 #### 2857-1, 67751-9, 12494-9 #### [facility] ([id number]) [address] [facility], [address] [place] [address] RBC COUNT 4.42 X10E12/L Normal 4.10-5.70 [facility] Comment on above: Performed By: #### C BCA, CMP, THYR #### [facility] ([id number]) [address] [place] [address] 71544 #### 2857-1, 19767-1, 66792-3 #### [facility] ([id number]) [address] [facility], [address] [place] [address] WBC (Bld) [#/Vol] 6.2 10*3/uL Normal 4.0-11.0 [facility] Comment on above: Performed By: #### C BCA, CMP, THYR #### [facility] ([id number]) [address] [place] [address] 25552 #### 2857-1, 25349-3, 91515-4 #### [facility] ([id number]) [address] [facility], [address] [place] [address] COMPREHENSIVE METABOLIC PANE Alex 09-22-2023 Albumin [Mass/Vol] 4.2 g/dL Normal 3.2-5.3 [facility] Comment on above: Performed By: #### C BCA, CMP, THYR #### [facility] ([id number]) [address] [place] [address] 18623 #### 2857-1, 23016-8, 71907-4 #### [facility] ([id number]) [address] [facility], [address] [place] [address] ALP [Catalytic activity/Vol] 41 U/L Normal 39-130 [facility] Comment on above: Performed By: #### C BCA, CMP, THYR #### [facility] ([id number]) [address] [place] [address] 46092 #### 2857-1, 96302-4, 96684-8 #### [facility] ([id number]) [address] [place] [address], [address] [place] [address] ALT [Catalytic activity/Vol] 17 U/L Normal 0-40 [facility] Comment on above: Performed By: #### C BCA, CMP, THYR #### [facility] ([id number]) [address] [place] [address] 11877 #### 2857-1, 07464-3, 76325-0 #### [facility] ([id number]) [address] [place] [address], [address] [place] [address] Anion gap [Moles/Vol] 6 mmol/L Normal 5-15 [facility] Comment on above: Performed By: #### C BCA, CMP, THYR #### [facility] ([id number]) [address] [place] [address] 03375 #### 2857-1, 23146-1, 43890-6 #### [facility] ([id number]) [address] [place] [address], [address] [place] [address] AST [Catalytic activity/Vol] 20 U/L Normal 0-41 [facility] Comment on above: Performed By: #### C BCA, CMP, THYR #### [facility] ([id number]) [address] [place] [address] 21997 #### 2857-1, 45498-7, 35767-8 #### [facility] ([id number]) [address], [address] [place] [address] Bilirubin [Mass/Vol] 0.4 mg/dL Normal 0.3-1.2 [facility] Comment on above: Performed By: #### C BCA, CMP, THYR #### [facility] ([id number]) [address] [place] [address] 48650 #### 2857-1, 62160-9, 07298-6 #### [facility] ([id number]) [address], [address] [place] [address] Calcium [Mass/Vol] 9.3 mg/dL Normal 8.5-10.5 [facility] Comment on above: Performed By: #### C BCA, CMP, THYR #### [facility] ([id number]) [address] [place] [address] 21381 #### 2857-1, 42003-0, 91888-2 #### [facility] ([id number]) [address], [address] [place] [address] Chloride [Moles/Vol] 103 mmol/L Normal 98-109 [facility] Comment on above: Performed By: #### C BCA, CMP, THYR #### [facility] ([id number]) [address] [place] [address] 26472 #### 2857-1, 76638-5, 64743-0 #### [facility] ([id number]) [address], [address] [place] [address] CO2 [Moles/Vol] 27 mmol/L Normal 22-32 [facility] Comment on above: Performed By: #### C BCA, CMP, THYR #### [facility] ([id number]) [address] [place] [address] 51823 #### 2857-1, 71137-2, 85407-5 #### [facility] ([id number]) [address], [address] [place] [address] Creatinine [Mass/Vol] 1.12 mg/dL Normal 0.70-1.20 [facility] Comment on above: Result Comment: METH OD TRACEABLE TO IDMS STANDARD Performed By: #### C BCA, CMP, THYR #### [facility] ([id number]) [address] [place] [address] 95554 #### 2857-1, 77911-3, 25108-1 #### [facility] ([id number]) [address], [address] [place] [address] GFR/1.73 sq M.predicted among non-blacks MDRD (S/P/Bld) [Vol rate/Area] 71 mL/min/{1.73_m2} Normal >59 [facility] Comment on above: Result Comment: Reported eGFR is based on the CKD-EPI 2020 equation that does not use a race coefficient. Performed By: #### C BCA, CMP, THYR #### [facility] ([id number]) [address] [place] [address] 45008 #### 2857-1, 55294-3, 48263-3 #### [facility] ([id number]) [address], [address] [place] [address] Glucose [Mass/Vol] 178 mg/dL High 65-99 [facility] Comment on above: Performed By: #### C BCA, CMP, THYR #### [facility] ([id number]) [address] [place] [address] 06969 #### 2857-1, 02814-0, 05914-5 #### [facility] ([id number]) [address], [address] [place] [address] Potassium [Moles/Vol] 4.6 mmol/L Normal 3.5-5.0 [facility] Comment on above: Performed By: #### C BCA, CMP, THYR #### [facility] ([id number]) [address] [place] [address] 00483 #### 2857-1, 04689-3, 74122-1 #### [facility] ([id number]) [address], [address] [place] [address] Protein [Mass/Vol] 7.8 g/dL Normal 6.0-8.0 [facility] Comment on above: Performed By: #### C BCA, CMP, THYR #### [facility] ([id number]) [address] [place] [address] 55704 #### 2857-1, 99848-4, 32522-9 #### [facility] ([id number]) [address], [address] [place] [address] Sodium [Moles/Vol] 136 mmol/L Normal 134-146 [facility] Comment on above: Performed By: #### C BCA, CMP, THYR #### [facility] ([id number]) [address] [place] [address] 73685 #### 2857-1, 08487-0, 38650-3 #### [facility] ([id number]) [address], [address] [place] [address] Urea nitrogen [Mass/Vol] 18 mg/dL Normal 5-27 [facility] Comment on above: Performed By: #### C BCA, CMP, THYR #### [facility] ([id number]) [address] [place] [address] 60546 #### 2857-1, 31208-8, 59591-5 #### [facility] ([id number]) [address], [address] [place] [address] HCV Ab IA Qlon 09-22-2023 ANTI HCV W/PCR REFLX Non-Reactive Normal NRCT [facility] Comment on above: Result Comment: If recent infection suspected, recommend repeat testing (>2 months). Wydnln-ld-jmriqf ratio is <0.80. Performed By: #### C BCA, CMP #### [facility] ([id number]) [address] [place] [address] 32773 #### 2857-1, 17646-0, 65675-0, FEPR, 2276-4 #### [facility] ([id number]) [address] [facility], [address] [place] [address] HGB A1C (GLYCO-HGB)on 2023 Glucose [Mass/Vol] 180 mg/dL Normal [facility] Comment on above: Performed By: #### C BCA, CMP #### [facility] ([id number]) [address] [place] [address] 41751 #### 2857-1, 45046-2, 84819-5, FEPR, 2276-4 #### [facility] ([id number]) [address] [facility], [address] [place] [address] HbA1c (Bld) [Mass fraction] 7.9 % High 4.4-5.6 [facility] Comment on above: Result Comment: NOTE ADA Guidelines Result HgbA1c Normal : less than 5.7 % Prediabetes : 5.7 % to 6.4 % Diabetes : > 6.4 % Use with caution in patients with abnormal hemoglobin variants as the half-life of red blood cells and in vivo glycation rates are affected. Performed By: #### C BCA, CMP #### [facility] ([id number]) [address] [place] [address] 04110 #### 2857-1, 62025-4, 97383-6, FEPR, 2276-4 #### [facility] ([id number]) [address], [address] [place] [address] Prostate specific Ag [Mass/V ol]on 09-22-2023 PSA SCREEN 0.89 ng/mL Normal 0.00-4.00 [facility] Comment on above: Result Comment: The method used for this test is Louis Riana DXI chemiluminescent immunoassay. Values obtained by different assay methods cannot be used interchangeably. Performed By: #### C BCA, CMP #### [facility] ([id number]) [address] [place] [address] 15415 #### 2857-1, 86466-7, 22660-9, FEPR, 2276-4 #### [facility] ([id number]) [address], [address] [place] [address] THYROID PROFILEon 09-22-2023 Free T4 [Mass/Vol] 1.03 ng/dL Normal 0.61-1.60 [facility] Comment on above: Performed By: #### C BCA, CMP #### [facility] ([id number]) [address] [place] [address] #### 2857-1, 41420-8, 03954-9, FEPR, 2276-4 #### [facility] ([id number]) [address], [address] [place] [address] TSH 4.47 uIU/mL Normal 0.49-4.67 [facility] Comment on above: Performed By: #### C BCA, CMP #### [facility] ([id number]) [address] [place] [address] #### 2857-1, 63473-9, 61593-3, FEPR, 2276-4 #### [facility] ([id number]) [address], [address] [place] [address] Vitamin D+Metabolites [Mass/ Vol]on 09-22-2023 VITAMIN D 25 HYD TOT 23.7 ng/mL Low 30-100 [facility] Comment on above: Result Comment: Vitamin D status 25 [place] Vitamin D Deficiency <20 ng/mL Insufficiency 20-29 ng/mL Sufficiency 30-100 ng/mL Toxicity >100 ng/mL NOTE: A pediatric reference range has not been established by the management tech of this kit. The [employer] recommends a Vitamin D level of = or >20ng/mL in infants and children. Performed By: #### C GARDENIA, CMP #### [facility] ([id number]) [address] [place] [address] #### 2857-1, 29663-5, 87723-1, FEPR, 2276-4 #### [facility] ([id number]) [address] [place] [address], [address] [place] [address] CBC AND AUTO DIFFon 08-02-19 24 ABSOLUTE BASOPHIL 0.0 X10E9/L Normal 0.0-0.2 [facility] Comment on above: Performed By: #### Jerry VARNER, CMP #### [facility] ([id number]) [address] [place] [address] #### 2857-1, 64390-7, 26488-0, FEPR, 2276-4 #### [facility] ([id number]) [address] [place] [address], [address] [place] [address] ABSOLUTE NEUTROPHIL 4.4 X10E9/L Normal 1.5-6.6 [facility] Comment on above: Performed By: #### C GARDENIA, CMP #### [facility] ([id number]) [address] [place] [address] #### 2857-1, 51467-9, 51623-0, FEPR, 2276-4 #### [facility] ([id number]) [address], [address] [place] [address] Basophils/100 WBC (Bld) 0.5 % Normal [facility] Comment on above: Performed By: #### C BCA, CMP #### [facility] ([id number]) [address] [place] [address] #### 2857-1, 94504-2, 06829-9, FEPR, 6-4 #### [facility] ([id number]) [address], [address] [place] [address] Eosinophils (Bld) [#/Vol] 0.1 10*3/uL Normal 0.0-0.4 [facility] Comment on above: Performed By: #### C BCA, CMP #### [facility] ([id number]) [address] [place] [address] #### 2857-1, 32493-1, 79718-2, FEPR, 6-4 #### [facility] ([id number]) [address] [facility], [address] [place] [address] Eosinophils/100 WBC (Bld) 0.9 % Normal [facility] Comment on above: Performed By: #### C BCA, CMP #### [facility] ([id number]) [address] [place] [address] #### 2857-1, 46803-5, 77740-2, FEPR, 6-4 #### [facility] ([id number]) [address], [address] [place] [address] Erythrocyte distribution width (RBC) [Ratio] 15.7 % High 11.5-15.0 [facility] Comment on above: Performed By: #### C BCA, CMP #### [facility] ([id number]) [address] [place] [address] #### 2857-1, 45000-5, 60647-0, FEPR, 2276-4 #### [facility] ([id number]) [address], [address] [place] [address] Hematocrit (Bld) [Volume fraction] 38.3 % Low 39-49 [facility] Comment on above: Performed By: #### C BCA, CMP #### [facility] ([id number]) [address] [place] [address] #### 2857-1, 05715-4, 32187-0, FEPR, 2276-4 #### [facility] ([id number]) [address], [address] [place] [address] Hemoglobin (Bld) [Mass/Vol] 12.5 g/dL Low 13.0-17.0 [facility] Comment on above: Performed By: #### Jerry BCA, CMP #### [facility] ([id number]) [address] [place] [address] #### 2857-1, 78698-4, 26518-7, FEPR, 6-4 #### [facility] ([id number]) [address], [address] [place] [address] Lymphocytes (Bld) [#/Vol] 1.2 10*3/uL Normal 1.0-3.5 [facility] Comment on above: Performed By: #### C BCA, CMP #### [facility] ([id number]) [address] [place] [address] 24273 #### 2857-1, 84390-0, 06037-8, FEPR, 2276-4 #### [facility] ([id number]) [address], [address] [place] [address] Lymphocytes/100 WBC (Bld) 18.4 % Normal [facility] Comment on above: Performed By: #### C BCA, CMP #### [facility] ([id number]) [address] [place] [address] 58218 #### 2857-1, 51300-1, 37070-5, FEPR, 2276-4 #### [facility] ([id number]) [address], [address] [place] [address] MCH (RBC) [Entitic mass] 29.1 pg Normal 27-34 [facility] Comment on above: Performed By: #### C BCA, CMP #### [facility] ([id number]) [address] [place] [address] 79184 #### 2857-1, 49184-5, 21134-8, FEPR, 2276-4 #### [facility] ([id number]) [address], [address] [place] [address] MCHC (RBC) [Mass/Vol] 32.7 g/dL Normal 32-36 [facility] Comment on above: Performed By: #### C BCA, CMP #### [facility] ([id number]) [address] [place] [address] 66376 #### 2857-1, 03885-2, 55069-5, FEPR, 2276-4 #### [facility] ([id number]) [address], [address] [place] [address] MCV (RBC) [Entitic vol] 89 fL Normal 80-100 [facility] Comment on above: Performed By: #### C BCA, CMP #### [facility] ([id number]) [address] [place] [address] 86119 #### 2857-1, 09715-5, 38140-6, FEPR, 2276-4 #### [facility] ([id number]) [address], [address] [place] [address] Monocytes (Bld) [#/Vol] 1.0 10*3/uL High 0-0.9 [facility] Comment on above: Performed By: #### C BCA, CMP #### [facility] ([id number]) [address] [place] [address] 29345 #### 2857-1, 01821-2, 07811-9, FEPR, 2276-4 #### [facility] ([id number]) [address], [address] [place] [address] Monocytes/100 WBC (Bld) 14.3 % Normal [facility] Comment on above: Performed By: #### C GARDENIA, CMP #### [facility] ([id number]) [address] [place] [address] 84021 #### 2857-1, 61913-0, 12507-2, FEPR, 2276-4 #### [facility] ([id number]) [address], [address] [place] [address] Neutrophils/100 WBC (Bld) 65.9 % Normal [facility] Comment on above: Performed By: #### Jerry BCA, CMP #### [facility] ([id number]) [address] [place] [address] 07611 #### 2857-1, 29595-8, 91179-7, FEPR, 2276-4 #### [facility] ([id number]) [address], [address] [place] [address] Platelet mean volume (Bld) [Entitic vol] 8.3 fL Normal 7-12 [facility] Comment on above: Performed By: #### C BCA, CMP #### [facility] ([id number]) [address] [place] [address] 12374 #### 2857-1, 92494-6, 27224-2, FEPR, 2276-4 #### [facility] ([id number]) [address], [address] [place] [address] Platelets (Bld) [#/Vol] 271 10*3/uL Normal 150-450 [facility] Comment on above: Performed By: #### C BCA, CMP #### [facility] ([id number]) [address] [place] [address] 43948 #### 2857-1, 17374-1, 34393-7, FEPR, 2276-4 #### [facility] ([id number]) [address] [facility], [address] [place] [address] RBC COUNT 4.31 X10E12/L Normal 4.10-5.70 [facility] Comment on above: Performed By: #### C BCA, CMP #### [facility] ([id number]) [address] [place] [address] 66789 #### 2857-1, 91058-5, 88793-5, FEPR, 2276-4 #### [facility] ([id number]) [address] [facility], [address] [place] [address] WBC (Bld) [#/Vol] 6.7 10*3/uL Normal 4.0-11.0 [facility] Comment on above: Performed By: #### C BCA, CMP #### [facility] ([id number]) [address] [place] [address] 93854 #### 2857-1, 05604-2, 23525-6, FEPR, 2276-4 #### [facility] ([id number]) [address], [address] [place] [address] COMPREHENSIVE METABOLIC PANE Alex 08-02-2023 Albumin [Mass/Vol] 3.8 g/dL Normal 3.2-5.3 [facility] Comment on above: Performed By: #### C BCA, CMP #### [facility] ([id number]) [address] [place] [address] 17853 #### 2857-1, 56854-9, 48500-2, FEPR, 2276-4 #### [facility] ([id number]) [address], [address] [place] [address] ALP [Catalytic activity/Vol] 48 U/L Normal 39-130 [facility] Comment on above: Performed By: #### C BCA, CMP #### [facility] ([id number]) [address] [place] [address] 69976 #### 2857-1, 54284-5, 55006-2, FEPR, 2276-4 #### [facility] ([id number]) [address], [address] [place] [address] ALT [Catalytic activity/Vol] 18 U/L Normal 0-40 [facility] Comment on above: Performed By: #### C BCA, CMP #### [facility] ([id number]) [address] [place] [address] 31649 #### 2857-1, 97084-2, 32544-2, FEPR, 2276-4 #### [facility] ([id number]) [address], [address] [place] [address] Anion gap [Moles/Vol] 9 mmol/L Normal 5-15 [facility] Comment on above: Performed By: #### C BCA, CMP #### [facility] ([id number]) [address] [place] [address] 44510 #### 2857-1, 48540-7, 14416-2, FEPR, 2276-4 #### [facility] ([id number]) [address], [address] [place] [address] AST [Catalytic activity/Vol] 24 U/L Normal 0-41 [facility] Comment on above: Performed By: #### C BCA, CMP #### [facility] ([id number]) [address] [place] [address] 46391 #### 2857-1, 81386-9, 03612-8, FEPR, 2276-4 #### [facility] ([id number]) [address], [address] [place] [address] Bilirubin [Mass/Vol] 0.6 mg/dL Normal 0.3-1.2 [facility] Comment on above: Performed By: #### C BCA, CMP #### [facility] ([id number]) [address] [place] [address] 16383 #### 2857-1, 59185-8, 18644-2, FEPR, 2276-4 #### [facility] ([id number]) [address] [facility], [address] [place] [address] Calcium [Mass/Vol] 9.0 mg/dL Normal 8.5-10.5 [facility] Comment on above: Performed By: #### C BCA, CMP #### [facility] ([id number]) [address] [place] [address] 61419 #### 2857-1, 72582-1, 28914-9, FEPR, 2276-4 #### [facility] ([id number]) [address], [address] [place] [address] Chloride [Moles/Vol] 98 mmol/L Normal 98-109 [facility] Comment on above: Performed By: #### C BCA, CMP #### [facility] ([id number]) [address] [place] [address] 26768 #### 2857-1, 62829-7, 12993-3, FEPR, 2276-4 #### [facility] ([id number]) [address], [address] [place] [address] CO2 [Moles/Vol] 28 mmol/L Normal 22-32 [facility] Comment on above: Performed By: #### C BCA, CMP #### [facility] ([id number]) [address] [place] [address] 32525 #### 2857-1, 18539-4, 95578-0, FEPR, 2276-4 #### [facility] ([id number]) [address], [address] [place] [address] Creatinine [Mass/Vol] 0.93 mg/dL Normal 0.70-1.20 [facility] Comment on above: Result Comment: METH OD TRACEABLE TO IDMS STANDARD Performed By: #### C BCA, CMP #### [facility] ([id number]) [address] [place] [address] 77793 #### 2857-1, 61989-7, 44761-0, FEPR, 2276-4 #### [facility] ([id number]) [address], [address] [place] [address] GFR/1.73 sq M.predicted among non-blacks MDRD (S/P/Bld) [Vol rate/Area] 89 mL/min/{1.73_m2} Normal >59 [facility] Comment on above: Result Comment: Reported eGFR is based on the CKD-EPI 2020 equation that does not use a race coefficient. Performed By: #### C BCA, CMP #### [facility] ([id number]) [address] [place] [address] 86140 #### 2857-1, 15989-5, 36746-0, FEPR, 2276-4 #### [facility] ([id number]) [address], [address] [place] [address] Glucose [Mass/Vol] 193 mg/dL High 65-99 [facility] Comment on above: Performed By: #### C BCA, CMP #### [facility] ([id number]) [address] [place] [address] 15922 #### 2857-1, 86687-1, 70328-4, FEPR, 2276-4 #### [facility] ([id number]) [address], [address] [place] [address] Potassium [Moles/Vol] 4.8 mmol/L Normal 3.5-5.0 [facility] Comment on above: Performed By: #### C BCA, CMP #### [facility] ([id number]) [address] [place] [address] 39486 #### 2857-1, 80710-4, 53504-4, FEPR, 2276-4 #### [facility] ([id number]) [address], [address] [place] [address] Protein [Mass/Vol] 7.8 g/dL Normal 6.0-8.0 [facility] Comment on above: Performed By: #### C BCA, CMP #### [facility] ([id number]) [address] [place] [address] 09176 #### 2857-1, 30933-1, 21616-0, FEPR, 2276-4 #### [facility] ([id number]) [address], [address] [place] [address] Sodium [Moles/Vol] 135 mmol/L Normal 134-146 [facility] Comment on above: Performed By: #### C BCA, CMP #### [facility] ([id number]) [address] [place] [address] 67126 #### 2857-1, 40872-6, 44785-8, FEPR, 2276-4 #### [facility] ([id number]) [address], [address] [place] [address] Urea nitrogen [Mass/Vol] 20 mg/dL Normal 5-27 [facility] Comment on above: Performed By: #### C BCA, CMP #### [facility] ([id number]) [address] [place] [address] 51394 #### 2857-1, 15748-4, 40867-4, FEPR, 2276-4 #### [facility] ([id number]) [address] [facility], [address] [place] [address] FERRITINon 08-02-2023 Ferritin [Mass/Vol] 29 ng/mL Normal 24-336 [facility] Comment on above: Performed By: #### C BCA, CMP #### [facility] ([id number]) [address] [place] [address] 21986 #### 2857-1, 03353-8, 65389-1, FEPR, 2276-4 #### [facility] ([id number]) [address] [place] [address], [address] [place] [address] HCV Ab IA Qlon 08-02-2023 ANTI HCV W/PCR REFLX Non-Reactive Normal NRCT [facility] Comment on above: Result Comment: If recent infection suspected, recommend repeat testing (>2 months). Gsrzbe-xc-onoyjo ratio is <0.80. Performed By: #### C BCA, CMP #### [facility] ([id number]) [address] [place] [address] 37102 #### 2857-1, 19546-4, 42372-1, FEPR, 2276-4 #### [facility] ([id number]) [address] [place] [address], [address] [place] [address] HGB A1C (GLYCO-HGB)on 2023 Glucose [Mass/Vol] 189 mg/dL Normal [facility] Comment on above: Performed By: #### C BCA, CMP #### [facility] ([id number]) [address] [place] [address] 25165 #### 2857-1, 80777-2, 83234-4, FEPR, 2276-4 #### [facility] ([id number]) [address] [facility], [address] [place] [address] HbA1c (Bld) [Mass fraction] 8.2 % High 4.4-5.6 [facility] Comment on above: Result Comment: NOTE ADA Guidelines Result HgbA1c Normal : less than 5.7 % Prediabetes : 5.7 % to 6.4 % Diabetes : > 6.4 % Use with caution in patients with abnormal hemoglobin variants as the half-life of red blood cells and in vivo glycation rates are affected. Performed By: #### C BCA, CMP #### [facility] ([id number]) [address] [place] [address] 62339 #### 2857-1, 77777-5, 97999-8, FEPR, 2276-4 #### [facility] ([id number]) [address] [facility], [address] [place] [address] IRON PROFILEon 08-02-2023 Iron [Mass/Vol] 47 ug/dL Low 50-212 [facility] Comment on above: Performed By: #### C BCA, CMP #### [facility] ([id number]) [address] [place] [address] 17513 #### 2857-1, 77641-6, 29430-5, FEPR, 2276-4 #### [facility] ([id number]) [address] [facility], [address] [place] [address] IRON BINDING 379 ug/dL Normal 250-425 [facility] Comment on above: Performed By: #### C BCA, CMP #### [facility] ([id number]) [address] [place] [address] 09500 #### 2857-1, 50151-4, 21826-4, FEPR, 2276-4 #### [facility] ([id number]) [address], [address] [place] [address] IRON SATURATION 12 % SATURATION Low 20-50 [facility] Comment on above: Performed By: #### C GARDENIA, CMP #### [facility] ([id number]) [address] [place] [address] 36419 #### 2857-1, 10946-7, 68373-1, FEPR, 2276-4 #### [facility] ([id number]) [address], [address] [place] [address] Prostate specific Ag [Mass/V ol]on 08-02-2023 PSA SCREEN 0.52 ng/mL Normal 0.00-4.00 [facility] Comment on above: Result Comment: The method used for this test is Louis Fanzila DXI chemiluminescent immunoassay. Values obtained by different assay methods cannot be used interchangeably. Performed By: #### C GARDENIA, CMP #### [facility] ([id number]) [address] [place] [address] 33554 #### 2857-1, 58807-6, 96312-0, FEPR, 2276-4 #### [facility] ([id number]) [address], [address] [place] [address] Vitamin D+Metabolites [Mass/ Vol]on 08-02-2023 VITAMIN D 25 HYD TOT 19.2 ng/mL Low 30-100 [facility] Comment on above: Result Comment: Vitamin D status 25 [place] Vitamin D Deficiency <20 ng/mL Insufficiency 20-29 ng/mL Sufficiency 30-100 ng/mL Toxicity >100 ng/mL NOTE: A pediatric reference range has not been established by the management tech of this kit. The [employer] recommends a Vitamin D level of = or >20ng/mL in infants and children. Performed By: #### C BCA, [facility] #### [facility] ([id number]) [address] [facility], [place] [address] #### 2857-1, 35043-1, 93704-0, FEPR, 2276-4 #### [facility] ([id number]) [address] [facility], [address] [place] [address] Vital Signs Date Time Vital Sign Value Performing Clinician Facility 05-23-2024 11:55-0500 Diastolic blood pressure 73 mm[Hg] [facility] 05-23-2024 11:55-0500 Heart rate 71 /min [facility]eb[facility] LEON [facility] 05-23-2024 11:55-0500 Respiratory rate 20 /min Bebeto LEON [facility] 05-23-2024 11:55-0500 SaO2% (BldA) [Mass fraction] 100 % Bebeto LEON [facility] 05-23-2024 11:55-0500 Systolic blood pressure 145 mm[Hg] Bebeto LEON Work Phone: [email or web address] 04-09-2024 10:12-0400 Body height 175.3 cm [facility]eb[facility] LEON [facility] Comment on above: stated 04-09-2024 10:12-0400 Body mass index (BMI) [Ratio] 27.62 kg/m2 Bebeto LEON [facility] 04-09-2024 10:12-0400 Body weight 84.82 kg Bebeto LEON Work Phone: [email or web address] 04-09-2024 10:12-0400 Diastolic blood pressure 97 mm[Hg] Bebeto LEON Work Phone: [facility] 04-09-2024 10:12-0400 Heart rate 63 /min Bebeto LEON Work Phone: [facility] 04-09-2024 10:12-0400 Respiratory rate 16 /min Bebeto LEON Work Phone: [facility] 04-09-2024 10:12-0400 SaO2% (BldA) [Mass fraction] 100 % Bebeto LEON Work Phone: [facility] 04-09-2024 10:12-0400 Systolic blood pressure 141 mm[Hg] Bebeto LEON Work Phone: [facility] Encounters Encounter Date Encounter Type Care Provider Facility Start: 07-22-2024 End: 07-22-2024 ambulatory MARIANA Liu [facility] Start: 07-12-2024 End: 07-22-2024 Refill Liliana Rivera [employer] Work Phone: [facility] Comment on above: Med Change Request Start: 05-23-2024 End: 05-23-2024 Refill Bebeto Espino [employer] Work Phone: [facility] Comment on above: Med Refill Start: 05-23-2024 End: 05-23-2024 Office outpatient visit 15 minutes Bebeto LEON Work Phone: [facility] Comment on above: Lumbosacral 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 (Primary Dx) Start: 05-23-2024 End: 05-23-2024 ambulatory BEBETO HAQ [facility] Start: 05-09-2024 End: 05-09-2024 ambulatory IZZY SAM [facility] Start: 05-03-2024 End: 05-03-2024 ambulatory NAY HYDE [facility] Start: 04-16-2024 End: 04-16-2024 Emergency department patient visit [facility] Start: 04-09-2024 End: 04-09-2024 Office outpatient visit 25 minutes Bebeto LEON Work Phone: [facility] Comment on above: Lumbosacral 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 (Primary Dx) Start: 04-09-2024 End: 04-09-2024 ambulatory [facility] Start: 04-01-2024 End: 04-01-2024 ambulatory [facility] Start: 02-22-2024 End: 02-22-2024 ambulatory [facility] Start: 01-09-2024 End: 01-09-2024 ambulatory [facility] Start: 12-26-2023 End: 12-27-2023 Emergency department patient visit DIVYA Valera CHEMARIA E [facility] Start: 09-22-2023 End: 09-22-2023 ambulatory [facility] Start: 08-02-2023 End: 08-02-2023 ambulatory [facility] Start: 11-14-2022 End: 11-15-2022 ambulatory MARIANA Liu [facility] Facility:H1 Start: 10-24-2022 End: 10-25-2022 ambulatory MARIANA Liu [facility] Facility:H1 Start: 10-03-2022 End: 10-04-2022 ambulatory MARIANA Liu [facility] Facility:H1 Start: 09-12-2022 End: 09-13-2022 ambulatory CHET SHANTANU Facility:H1 Start: 08-23-2022 End: 08-24-2022 ambulatory MARIANA Liu [facility] Facility:H1 Start: 08-16-2022 End: 08-17-2022 ambulatory MARIANA Liu [facility] Facility:H1 Start: 08-09-2022 End: 08-10-2022 [facility] Procedures Date Procedure Procedure Detail Performing Clinician Start: 04-06-2023 Microalbumin [Mass/v olume] in Urine by Test strip Bebeto LEON Work Phone: Plan of Treatment Date Care Activity Detail Author Start: 05-23-2025 Tobacco Screening Tobacco Screening [facility] Start: 04-16-2025 Adult BMI Screening Adult BMI Screen ing [facility] Start: 04-09-2025 Adult BMI Screening Adult BMI Screen ing [facility] Start: 04-09-2025 Tobacco Screening Tobacco Screening [facility] Start: 07-24-2024 End: 07-24-2024 Clinical Support [facility] Start: 07-04-2024 End: 07-04-2024 Patient encounter procedure 07/04/2024 10:00 AM EST Office Visit [facility] [address] [place] [address] Bebeto Haq PA [address] [place] [address] [facility] Start: 05-23-2024 End: 05-23-2024 Patient encounter procedure 05/23/2024 12:45 PM EST Office Visit [facility] [address] [place] [address] Bebeto Haq PA [address] [place] [address] [facility] Start: 05-03-2024 End: 05-03-2024 Admission to same day surgery center 05/03/2024 8:58 AM EDT - 05/03/2024 9:06 AM EDT Surgery [facility] [address] [place] [address] Nay Hyde MD [address] [facility] [place] [address] INJECTION BLOCK NERVE MEDIAL BRANCH: bilat L45 51 [01280 (CPT )] [facility] Comment on above: INJECTION BLOCK NERV E MEDIAL BRANCH: bilat L45 51 [22980 (CPT )] Start: 05-03-2024 End: 05-03-2024 Njx dx/ther agt pvrt facet jt lmbr/sac 1 level INJECTION BLOCK NERVE MEDIAL BRANCH Lumbosacral spondylosis without myelopathy 05/03/2024 8:58 AM EDT [facility] Start: 05-03-2024 Subsequent hospital visit by physician 05/03/2024 8:58 AM EDT Hospital Encounter [facility] [address] [place] [id number] Nay Hyde MD [address], [place] [id number] [facility] Start: 04-06-2024 Urine screening for protein Urine Microalbumin [facility] Start: 03-03-2024 COVID-19 Vaccine ( season) COVID-19 Vaccine ( season) [facility] Start: 03-03-2024 COVID-19 Vaccine ( season) COVID-19 Vaccine ( season) [facility] Start: 03-03-2024 Influenza vaccination Influenza Vacc ine [facility] Start: 2019 Abdominal aortic aneurysm screening Abdominal Aortic Aneurysm (AAA) Screen [facility] Start: 2019 Fall Risk Screening Fall Risk Screen ing [facility] Start: 2004 Administration of varicella zoster vaccine Zoster (Shingles) Vaccine (1 of 2) [facility] Start: 1973 DTaP,Tdap and Td Vaccines (1 - Tdap) DTaP,Tdap and Td Vaccines (1 - Tdap) [facility] Start: 1972 Adult BMI Follow Up Plan Adult BMI Follow Up Plan [facility] Start: 1972 Diabetic foot examination Diabetic Foot Exam [facility] Start: 1966 Depression Screening Depression Scre ening [facility] Start: 1954 Glaucoma screening Diabetic Op hthalmology Exam [facility] Start: 1954 Medicare Annual Well ness Visit Medicare [facility] Well[facility] Immunizations Immunization Date Immunization Notes Care Provider Fa ron 04-11-2023 influenza virus vaccine, unspecified formulation Bebeto LEON Work Phone: [facility] 04-19-2021 influenza, injectabl e, quadrivalent, preservative free Bebeto LEON Work Phone: [facility] 05-18-2018 Influenza, injectabl e, Madin Kristina Canine Kidney, preservative free, quadrivalent Bebeto LEON Work Phone: [facility] 05-10-2017 influenza, seasonal, injectable, preservative free [facility]ebeto LEON [facility] 03-25-2015 influenza, seasonal, injectable, preservative free Bebeto LEON Work Phone: [facility] 04-15-2014 influenza, seasonal, injectable Bebeto LEON Work Phone: [facility] [employer] [facility] Payers Date Payer Category Payer Medicaid [id number] 1992 Medicare [id number] 1960 Medicaid [id number] 1960 Medicare [id number] 1954 Unknown [id number] 2.16.84 0.1.852641.3.579.2.593 1954 Unknown [id number] 2.16.84 0.1.390023.3.579.2.593 1954 Unknown [id number] 2.16.84 0.1.931512.3.579.2.593 1954 Unknown [id number] 2.16.84 0.1.108109.3.579.2.593 1954 Unknown [id number] 2.16.84 0.1.285603.3.579.2.593 1954 Unknown [id number] 2.16.84 0.1.429658.3.579.2.593 1954 Unknown [id number] 2.16.84 0.1.885506.3.579.2.593 1954 Unknown [id number] 2.16. 840.1.101760.3.579.2.1286 1954 Unknown [id number] 2.16.8 40.1.105724.3.579.2.128 1954 Unknown [id number] 2.16.8 40.1.830856.3.579.2.1286 1954 Unknown [id number] 2.16.8 40.1.010337.3.579.2.128 1954 Unknown [id number] 2.16.8 40.1.383673.3.579.2.1286 1954 Unknown [id number] 2.16.8 40.1.679064.3.579.2.1285 1954 Unknown [id number] 2.16.8 40.1.505159.3.579.2.1286 1954 Unknown [id number] 2.16.8 40.1.037684.3.579.2.1285 1954 Unknown [id number] 2.16.8 40.1.792662.3.579.2.128 1954 Unknown [id number] 2.16.8 40.1.824829.3.579.2.1285 1954 Unknown [id number] 2.16.8 40.1.442088.3.579.2.128 1954 Unknown [id number] 2.16.8 40.1.245318.3.579.2.1285 1954 Unknown [id number] 2.16.8 40.1.041976.3.579.2.1286 1954 Unknown [id number] 2.16.8 40.1.285027.3.579.2.1286 1954 Unknown [id number] 2.16.8 40.1.152996.3.579.2.1286 Social History Date Type Detail Facility Start: [facility]09[facility]24 [facility] History of tobacco use Current smoker [facility] History of tobacco use Cigarette Smoker P [facility] Start: 01-09-2024 Tobacco use and exposure Smokeless tobacco non-user [facility] Start: 04-09-2024 End: 05-23-2024 Alcoholic beverage intake Current non-drinker of alcohol (finding) [facility] Start: 07-18-2020 End: 04-09-2024 History of Social function [facility] Start: 07-18-2020 End: 04-09-2024 Tobacco use panel [facility] Childcare Unknown [facility] Start: 1955 Sex assigned at Not on file P [facility] Start: 02-05-2015 Sex Male (finding) [facility] Medical Equipment Procedure Code Equipment Code Equipment Origin al Text Equipment Identifier Dates Ld Pcng 55cm Rv Sq Scr S Df-4 - [id number] - [id number] Start: 11-20-2018 Lead Capsure Fix Novus 5076-45 - [id number] - [id number] Start: 11-20-2018 Lead Capsure Fix Novus 5076-52 - [id number] - [id number] Start: 07-21-2020 Dfbr Crd Evera M ri Xt - [id number] - [id number] Start: 11-20-2018 Sys Crd Rvl Linq Rpl [id number] - [id number] - [id number] Start: 11-16-2018 Start: 01-20-2018 Goals Date Patient Goal Desired Activity /State Personal health goal Comment on above: Formatting of this n ote might be different from the original. Evaluation of progress towards goal: discharge home with caodaism/friends support. Personal health goal Comment on above: [...] & Type Note Facility 07-12-2024 Miscellaneous Notes [facility] 03/08/23 Pt has future appt 07/24/24 documented in this encounter [facility] 07-12-2024 Telephone encounter Note [facility] 03/08/23 Pt has future appt 07/24/24 [facility] 05-23-2024 History of Present illness Narrative [facility] [address] [place] [address] Patient: Radha Quiñones Sex: male : 1955 Age: 69 y.o. PCP: [facility] Nathaniel 05/23/2024 Radha Quiñones is here [...] Past Medical History: Diagnosis Date Angina pectoris ([facility]) Arrhythmia Atrial fibrillation ([facility] Atrial flutter ([facility]) Atrial flutter ([facility]) Benign prostatic hyperplasia BPH with urinary obstruction Cancer ([facility]) skin cancer Cataract Constipation Coronary artery disease Dental disease no teeth Diabetes mellitus ([facility]) Diabetes mellitus type 2, controlled ([facility]) Hypercholesterolemia Hypertension Myositis Peripheral neuropathy Rash Scalp wound Urinary incontinence Ventricular tachycardia ([facility]) Visual impairment glasses Past Surgical History: Procedure Laterality Date 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; excision and debridement Left 10/29/2021 Performed by Ambrosio Al MD at [facility] AMPUTATION TOE 4TH & 5TH/WIDE INCISIONAL DEBRIDEMENT LEFT DIABETIC FOOT NECROTIZING FASCITIS Left 08/12/2021 Performed by Ambrosio Al MD at [facility] CARDIAC DEFIBRILLATOR PLACEMENT medtronic CATARACT EXTRACTION Coronary angiogram and left ventricular gram/pressure N/A 11/19/2018 Performed by Sage Jay MD at [facility] CARDIAC CATH LABS Coronary fractional flow reserve N/A 11/19/2018 Performed by Sage Jay MD at [facility] CARDIAC CATH LABS CYSTOSCOPY [facility] SOLUTION N/A 10/27/2021 Performed by Frederic Thorne MD at [facility] DC ICD RA lead replace - MDT N/A 07/21/2020 Performed by Yoni Espinoza MD at [facility] (EP) EP - Device DC ICD Left 11/20/2018 Performed by Shayna Betancourt MD at [facility] (EP) EP - Diagnostic-- EP study Right 11/16/2018 Performed by Rafita Garcia MD at [facility] (EP) INJECTION BLOCK NERVE MEDIAL BRANCH: bilat L 4/, 10/31 Bilateral 05/03/2024 Performed by Nay Hyde MD at [facility] Loop recorder implant N/A 11/16/2018 Performed by Rafita Garcia MD at [facility] (EP) Loop recorder removal N/A 07/21/2020 Performed by Yoni Espinoza MD at [facility] (EP) SKIN CANCER EXCISION No Known [...] Interpersonal Safety: Unknown (08/24/2023) Received from [facility] Safety & Environment Fear of Current [...] Wallis RN 05/23/24 1244 EDWARD Benavides 05/23/24 134 [facility] Miscellaneous Notes Last OV 03/08/23. Letter sent to pt 02/23. Attempted to call pt, no VM box set up. Letter sent. Pt will need appointment for future refills. documented in this encounter [facility] 05-23-2024 Telephone encounter Note Last OV 03/08/23. Letter sent to pt 02/23. Attempted to call pt, no VM box set up. Letter sent. Pt will need appointment for future refills. [facility] 04-09-2024 History of Present illness Narrative [facility] [address] [place] [address] Patient: Radha Quiñones Sex: male : 1955 [...] Date Angina pectoris (CMS-HCC) Arrhythmia Atrial fibrillation ([facility]) Atrial flutter ([facility]) Atrial flutter ([facility]) Benign prostatic hyperplasia BPH with urinary obstruction Cancer ([facility]) skin cancer Cataract Constipation Coronary artery disease Dental disease no teeth Diabetes mellitus ([facility]) Diabetes mellitus type 2, controlled ([facility]) Hypercholesterolemia Hypertension Myositis Peripheral neuropathy Rash Scalp wound Urinary incontinence Ventricular tachycardia ([facility]) Visual impairment glasses Past Surgical History: Procedure Laterality Date 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; excision and debridement Left 10/29/2021 Performed by Ambrosio Al MD at [facility] AMPUTATION TOE 4TH & 5TH/WIDE INCISIONAL DEBRIDEMENT LEFT DIABETIC FOOT NECROTIZING FASCITIS Left 08/12/2021 Performed by Ambrosio Al MD at [facility] CARDIAC DEFIBRILLATOR PLACEMENT medtronic CATARACT EXTRACTION Coronary angiogram and left ventricular gram/pressure N/A 11/19/2018 Performed by Sage Jay MD at [facility] CARDIAC CATH LABS Coronary fractional flow reserve N/A 11/19/2018 Performed by Sage Jay MD at [facility] CARDIAC CATH LABS CYSTOSCOPY [facility] SOLUTION N/A 10/27/2021 Performed by Frederic Thorne MD at [facility] DC ICD RA lead replace - MDT N/A 07/21/2020 Performed by Yoni Espinoza MD at [facility] (EP) EP - Device DC ICD Left 11/20/2018 Performed by Shayna Betancourt MD at [facility] (EP) EP - Diagnostic-- EP study Right 11/16/2018 Performed by Rafita Garcia MD at [facility] (EP) Loop recorder implant N/A 11/16/2018 Performed by Rafita Garcia MD at [facility] (EP) Loop recorder removal N/A 07/21/2020 Performed by Yoni Espinoza MD at [facility] (EP) SKIN CANCER EXCISION No Known [...] Interpersonal Safety: Unknown (08/24/2023) Received from [facility] Safety & Environment Fear of Current [...] these patients; however, close collaboration with a mining analyst or investment trader is recommended before initiating the RFN procedure, therefore prior to RFA we will consult with patient's mining analyst/investment trader for approval and recommendations to proceed with the procedure. OARRS: Reviewed. Scribe Statement: Scribed for and in the presence of EDWARD BENAVIDES by hCula Bonilla CNA. Provider Statement: I, EDWARD BENAVIDES, personally performed the services described in the documentation, as scribed by Chula Bonilla CNA in my presence, and it is both accurate and complete. Chula Bonilla CNA 04/09/24 1046 EDWARD Benavides 04/11/24 1226 documented in this encounter [facility] 04-09-2024 Instructions Chula Bonilla CNA - 04/09/2024 [...] nearest emergency room. [facility]22 Note PROCEDURE: XR FOOT L T [...] by: EDILSON DON Date: 2022-08-09 15:44 [facility] Evaluation note Diagnosis Lumbosacral spondylosis without myelopathy- Primary Lumbosacral spondylosis without myelopathy- Primary Lumbosacral spondylosis without myelopathy documented in this encounter [facility]* Diagnosis Enuresis- Primary Functional urinary [...] Paroxysmal ventricular tachycardia documented in this encounter [facility] Diagnosis Enuresis- Primary Functional urinary incontinence BPH (benign prostatic hypertrophy) with urinary obstruction- Primary Hypertrophy of prostate with urinary obstruction and other lower urinary tract symptoms (LUTS) Benign prostatic hyperplasia with urinary obstruction- Primary Urinary retention- Primary Unspecified retention of urine Benign prostatic hyperplasia with urinary obstruction Lumbosacral spondylosis without myelopathy- Primary documented in this encounter [facility]* Diagnosis Enuresis- Primary Functional urinary incontinence BPH (benign prostatic hypertrophy) with urinary obstruction- Primary Hypertrophy of prostate with urinary obstruction and other lower urinary tract symptoms (LUTS) Benign prostatic hyperplasia with urinary obstruction- Primary Urinary retention- Primary Unspecified retention of urine Benign prostatic hyperplasia with urinary obstruction Ventricular tachycardia (CMS-HCC) Paroxysmal ventricular tachycardia Atrial fibrillation with RVR ([facility]) V-tach ([facility]) Paroxysmal ventricular tachycardia documented [facility] filedocumented in this encounter [facility] SystemInstructionsNot on filedocumented in this encounter [facility] Summary Purpose Family History No [...] EDWARD [address] [place] [address] Referral ID Status Reason Start Date Expiration Date V isits Requested Visits Authorized [id number] Pending Review 04/09/2024 04/09/2025 1 1 Additional Source Comments (unrecognized sect ion and content) No Status Records FoundNo Status Records Found INFORMATION SOURCE (unrecogn ized section and content) DATE CREATED AUTHOR 11/16/2022 [facility] pitrichard DATE CREATED AUTHOR AUTHOR'S ORGANLISSY ATMEI 07/24/2024 [facility] Reason for Visit (unrecogniz ed section and content) Reason Comments Back Pain Reason Comments Med Refill Reason Comments Back Pain Reason Comments Med Change Request Care Teams (unrecognized sec tion and content) Helper Electrical Relationship Specialty Start Date End Date Services[address] [place] PCP - General Family Medicine 12/26/23 Helper Electrical Relationship Specialty Start Date End Date [place] [address] [place] PCP - General Family Medicine 04/16/24 Helper Electrical Relationship Specialty Start Date End Date [place] [address] [place] PCP - General Family Medicine 04/16/24 Helper Electrical Relationship Specialty Start Date End Date [place] [address] [place] PCP - General Family Medicine 04/16/24 [...] BE BASED ON THE PRIMARY CLINICAL RECORDS. [facility] [employer] [facility]. provides no warranty or guarantee of the accuracy or completeness of information in this document.
== END 2024-08-01 13:09 | disposition home or self-care (01) ==
LOC: VC 13:08
PROVIDERS: Visit Provider Podiatrist Foot & Ankle Surgery
DX: R09.89 Other specified symptoms and signs involving the circulatory and respiratory systems (principal)
CPT/HCPCS: 93923

== ENCOUNTER 2024-08-02 10:10 | Outpatient (OUT) | payer MEDICARE, MEDICAID, SELFPAY ==
--- OUTSIDE RECORDS SUMMARY | 2024-08-02 10:31 | XMS_ITS | CCD ---
Author Organization [facility] Care Team Providers Care Assistant Director Of Nursing Name Role Phone MARIANA PHILLIPS Attending Unavailable [...] [employer] Unavailable CARMENANDERMARIANA Attending Unavailable Services, [facility] Primary Care Provider Services, [facility] Primary Care Provider IZZY SAM Referring Unavailable IZZY SAM Primary Care Unavailable DIVYA GONZALES Attending Unavailable SERVICES, [facility] Primary Care Unava ilable DIVYA GONZALES Attending Unavailable DIVYA GONZALES Referring Unavailable SERVICES, [facility] Primary Care Unava ilable DIVYA GONZALES Attending Unavailable DIVYA GONZALES Referring Unavailable SERVICES, [facility] Primary Care Unava ilable BEBETO HAQ Attending Unavailable JACKIE BARRERA Referring Unavailable SERVICES, [facility] Primary Care Unava ilable BEBETO HAQ Attending Unavailable NAY HYDE Referring Unavailable SERVICES, [facility] Primary Care Unava ilable BEBETO HAQ Attending Unavailable BEBETO HAQ Referring Unavailable SERVICES, [facility] Primary Care Unava ilable BEBETO HAQ Attending Unavailable NAY HYDE Referring Unavailable SERVICES, [facility] Primary Care Unava ilable SERVICES, [facility] Primary Care Unava ilable DIVYA GONZALES Attending Unavailable NAY HYDE Admitting Unavailable NAY HYDE Attending Unavailable NAY HYDE Referring Unavailable NAY HYDE Attending Unavailable NAY HYDE Referring Unavailable SERVICES, [facility] IZZY SAM Referring Unavailable SERVICES, [facility] BEBETO HAQ Attending Unavailable NAY HYDE Referring Unavailable SERVICES, [facility] MARIANA PHILLIPS Referring Unavailable SERVICES, [facility] IZZY SAM Referring Unavailable IZZY SAM Primary [...] under the skin nightly. Active lactobacillus acidophilus [id number] unt / pectin 10 mg oral capsule [...] Coronary atherosclerosis; 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: [Atherosclerotic heart disease of [place] coronary artery without angina pectoris] Onset: 12-04-2018 [...] 07-22-19 ABSOLUTE BASOPHIL 0.0 X10E9/L Normal 0.0-0.2 [facility] Comment on above: Performed By: #### C BCA, CMP #### [facility] ([id number]) [address] [place] [address] 46222 #### 2857-1, 75360-4, 96647-2, FEPR, 2276-4 #### [facility] ([id number]) [address], [address] [place] [address] ABSOLUTE NEUTROPHIL 3.8 X10E9/L Normal 1.5-6.6 [facility] Comment on above: Performed By: #### C BCA, CMP #### [facility] ([id number]) [address] [place] [address] 47530 #### 2857-1, 21260-4, 62902-6, FEPR, 2276-4 #### [facility] ([id number]) [address], [address] [place] [address] Basophils/100 WBC (Bld) 0.8 % Normal [facility] Comment on above: Performed By: #### C BCA, CMP #### [facility] ([id number]) [address] [place] [address] 21661 #### 2857-1, 32096-6, 42114-6, FEPR, 2276-4 #### [facility] ([id number]) [address], [address] [place] [address] Eosinophils (Bld) [#/Vol] 0.0 10*3/uL Normal 0.0-0.4 [facility] Comment on above: Performed By: #### C BCA, CMP #### [facility] ([id number]) [address] [place] [address] 76264 #### 2857-1, 65110-6, 22192-0, FEPR, 2276-4 #### [facility] ([id number]) [address], [address] [place] [address] Eosinophils/100 WBC (Bld) 0.7 % Normal [facility] Comment on above: Performed By: #### C GARDENIA, CMP #### [facility] ([id number]) [address] [place] [address] 25429 #### 2857-1, 39888-5, 16413-0, FEPR, 2276-4 #### [facility] ([id number]) [address], [address] [place] [address] Erythrocyte distribution width (RBC) [Ratio] 14.6 % Normal 11.5-15.0 [facility] Comment on above: Performed By: #### C GARDENIA, CMP #### [facility] ([id number]) [address] [place] [address] 91385 #### 2857-1, 52638-9, 97753-8, FEPR, 2276-4 #### [facility] ([id number]) [address], [address] [place] [address] Hematocrit (Bld) [Volume fraction] 42.0 % Normal 39-49 [facility] Comment on above: Performed By: #### C BCA, CMP #### [facility] ([id number]) [address] [place] [address] 93408 #### 2857-1, 69984-8, 61991-6, FEPR, 2276-4 #### [facility] ([id number]) [address], [address] [place] [address] Hemoglobin (Bld) [Mass/Vol] 13.9 g/dL Normal 13.0-17.0 [facility] Comment on above: Performed By: #### C BCA, CMP #### [facility] ([id number]) [address] [place] [address] 67369 #### 2857-1, 82970-7, 43161-4, FEPR, 2276-4 #### [facility] ([id number]) [address], [address] [place] [address] Lymphocytes (Bld) [#/Vol] 1.5 10*3/uL Normal 1.0-3.5 [facility] Comment on above: Performed By: #### C BCA, CMP #### [facility] ([id number]) [address] [place] [address] 85140 #### 2857-1, 23766-3, 61545-8, FEPR, 2276-4 #### [facility] ([id number]) [address], [address] [place] [address] Lymphocytes/100 WBC (Bld) 24.7 % Normal [facility] Comment on above: Performed By: #### C BCA, CMP #### [facility] ([id number]) [address] [place] [address] 32814 #### 2857-1, 69169-5, 96291-4, FEPR, 2276-4 #### [facility] ([id number]) [address], [address] [place] [address] MCH (RBC) [Entitic mass] 30.7 pg Normal 27-34 [facility] Comment on above: Performed By: #### C BCA, CMP #### [facility] ([id number]) [address] [place] [address] 81150 #### 2857-1, 24493-7, 41779-3, FEPR, 2276-4 #### [facility] ([id number]) [address], [address] [place] [address] MCHC (RBC) [Mass/Vol] 33.0 g/dL Normal 32-36 [facility] Comment on above: Performed By: #### C BCA, CMP #### [facility] ([id number]) [address] [place] [address] 57049 #### 2857-1, 99764-5, 73019-1, FEPR, 6-4 #### [facility] ([id number]) [address], [address] [place] [address] MCV (RBC) [Entitic vol] 93 fL Normal 80-100 [facility] Comment on above: Performed By: #### C BCA, CMP #### [facility] ([id number]) [address] [place] [address] 08247 #### 2857-1, 45966-7, 28409-0, FEPR, 2275-4 #### [facility] ([id number]) [address], [address] [place] [address] Monocytes (Bld) [#/Vol] 0.6 10*3/uL Normal 0-0.9 [facility] Comment on above: Performed By: #### C BCA, CMP #### [facility] ([id number]) [address] [place] [address] 45057 #### 2857-1, 13984-8, 93183-8, FEPR, 2276-4 #### [facility] ([id number]) [address], [address] [place] [address] Monocytes/100 WBC (Bld) 9.7 % Normal [facility] Comment on above: Performed By: #### C BCA, CMP #### [facility] ([id number]) [address] [place] [address] 61049 #### 2857-1, 07164-0, 19630-8, FEPR, 2276-4 #### [facility] ([id number]) [address], [address] [place] [address] Neutrophils/100 WBC (Bld) 64.1 % Normal [facility] Comment on above: Performed By: #### C BCA, CMP #### [facility] ([id number]) [address] [place] [address] 42014 #### 2857-1, 27257-4, 89499-8, FEPR, 2276-4 #### [facility] ([id number]) [address], [address] [place] [address] Platelet mean volume (Bld) [Entitic vol] 8.2 fL Normal 7-12 [facility] Comment on above: Performed By: #### C BCA, CMP #### [facility] ([id number]) [address] [place] [address] 12048 #### 2857-1, 98245-1, 63880-0, FEPR, 2276-4 #### [facility] ([id number]) [address], [address] [place] [address] Platelets (Bld) [#/Vol] 315 10*3/uL Normal 150-450 [facility] Comment on above: Performed By: #### C BCA, CMP #### [facility] ([id number]) [address] [place] [address] 00154 #### 2857-1, 25669-8, 76184-3, FEPR, 2276-4 #### [facility] ([id number]) [address], [address] [place] [address] RBC COUNT 4.52 X10E12/L Normal 4.10-5.70 [facility] Comment on above: Performed By: #### C BCA, CMP #### [facility] ([id number]) [address] [place] [address] 75763 #### 2857-1, 89155-9, 98423-5, FEPR, 2276-4 #### [facility] ([id number]) [address], [address] [place] [address] WBC (Bld) [#/Vol] 5.9 10*3/uL Normal 4.0-11.0 [facility] Comment on above: Performed By: #### C BCA, CMP #### [facility] ([id number]) [address] [place] [address] 30118 #### 2857-1, 22024-0, 80696-7, FEPR, 2276-4 #### [facility] ([id number]) [address], [address] [place] [address] CRP [Mass/Vol]on 07-22-2024 C REACTIVE PROTEIN 1.9 mg/dL High 0.000-0.744 [facility] Comment on above: Performed By: #### C BCA, CMP #### [facility] ([id number]) [address] [place] [address] 55872 #### 2857-1, 14532-5, 22662-2, FEPR, 2276-4 #### [facility] ([id number]) [address], [address] [place] [address] ESR Photometric method (Bld) [Velocity]on 07-22-2024 ESR, ERYTHROCYTE SEDIMENTATION RATE 47 mm/h High 0-20 [facility] Comment on above: Performed By: #### C BCA, CMP #### [facility] ([id number]) [address] [place] [address] 32472 #### 2857-1, 03911-2, 34771-4, FEPR, 2276-4 #### [facility] ([id number]) [address] [place] [address], [address] [place] [address] HGB A1C (GLYCO-HGB)on 2024 Glucose [Mass/Vol] 203 mg/dL Normal [facility] Comment on above: Performed By: #### C BCA, CMP #### [facility] ([id number]) [address] [place] [address] 10700 #### 2857-1, 05773-5, 84724-2, FEPR, 2276-4 #### [facility] ([id number]) [address] [place] [address], [address] [address] HbA1c (Bld) [Mass fraction] 8.7 % High 4.4-5.6 [facility] Comment on above: Result Comment: NOTE ADA Guidelines Result HgbA1c Normal : less than 5.7 % Prediabetes : 5.7 % to 6.4 % Diabetes : > 6.4 % Use with caution in patients with abnormal hemoglobin variants as the half-life of red blood cells and in vivo glycation rates are affected. Performed By: #### C BCA, CMP #### [facility] ([id number]) [address] [place] [address] 01231 #### 2857-1, 77915-8, 99753-3, FEPR, 2276-4 #### [facility] ([id number]) [address] [place] [address], [address] [place] [address] COMPREHENSIVE METABOLIC PANE Alex 05-09-2024 Albumin [Mass/Vol] 4.2 g/dL Normal 3.2-5.3 [facility] Comment on above: Performed By: #### C BCA, CMP #### [facility] ([id number]) [address] [place] [address] 52704 #### 2857-1, 99350-2, 38714-9, FEPR, 2276-4 #### [facility] ([id number]) [address], [address] [place] [address] ALP [Catalytic activity/Vol] 46 U/L Normal 39-130 [facility] Comment on above: Performed By: #### C BCA, CMP #### [facility] ([id number]) [address] [place] [address] 11901 #### 2857-1, 35046-1, 92853-7, FEPR, 2276-4 #### [facility] ([id number]) [address], [address] [place] [address] ALT [Catalytic activity/Vol] 16 U/L Normal 0-40 [facility] Comment on above: Performed By: #### C BCA, CMP #### [facility] ([id number]) [address] [place] [address] 48167 #### 2857-1, 27071-4, 89121-2, FEPR, 2276-4 #### [facility] ([id number]) [address], [address] [place] [address] Anion gap [Moles/Vol] 10 mmol/L Normal 5-15 [facility] Comment on above: Performed By: #### C BCA, CMP #### [facility] ([id number]) [address] [place] [address] 35410 #### 2857-1, 49135-8, 90730-8, FEPR, 2276-4 #### [facility] ([id number]) [address], [address] [place] [address] AST [Catalytic activity/Vol] 16 U/L Normal 0-41 [facility] Comment on above: Performed By: #### C BCA, CMP #### [facility] ([id number]) [address] [place] [address] 10072 #### 2857-1, 74491-6, 42763-3, FEPR, 2276-4 #### [facility] ([id number]) [address], [address] [place] [address] Bilirubin [Mass/Vol] 0.5 mg/dL Normal 0.3-1.2 [facility] Comment on above: Performed By: #### C BCA, CMP #### [facility] ([id number]) [address] [place] [address] 19126 #### 2857-1, 66382-2, 09944-6, FEPR, 2276-4 #### [facility] ([id number]) [address], [address] [place] [address] Calcium [Mass/Vol] 9.3 mg/dL Normal 8.5-10.5 [facility] Comment on above: Performed By: #### C BCA, CMP #### [facility] ([id number]) [address] [place] [address] 82165 #### 2857-1, 54688-6, 33713-8, FEPR, 2276-4 #### [facility] ([id number]) [address], [address] [place] [address] Chloride [Moles/Vol] 99 mmol/L Normal 98-109 [facility] Comment on above: Performed By: #### C BCA, CMP #### [facility] ([id number]) [address] [place] [address] 82996 #### 2857-1, 28585-6, 26779-3, FEPR, 2276-4 #### [facility] ([id number]) [address], [address] [place] [address] CO2 [Moles/Vol] 26 mmol/L Normal 22-32 [facility] Comment on above: Performed By: #### C BCA, CMP #### [facility] ([id number]) [address] [place] [address] 44670 #### 2857-1, 85957-5, 16952-9, FEPR, 2276-4 #### [facility] ([id number]) [address], [address] [place] [address] Creatinine [Mass/Vol] 1.27 mg/dL High 0.70-1.20 [facility] Comment on above: Result Comment: METH OD TRACEABLE TO IDMS STANDARD Performed By: #### C BCA, CMP #### [facility] ([id number]) [address] [place] [address] 30129 #### 2857-1, 07861-9, 49081-4, FEPR, 2276-4 #### [facility] ([id number]) [address], [address] [place] [address] GFR/1.73 sq M.predicted among non-blacks MDRD (S/P/Bld) [Vol rate/Area] 61 mL/min/{1.73_m2} Normal >59 [facility] Comment on above: Result Comment: Reported eGFR is based on the CKD-EPI 2020 equation that does not use a race coefficient. Performed By: #### C BCA, CMP #### [facility] ([id number]) [address] [place] [address] 09456 #### 2857-1, 33278-4, 69434-2, FEPR, 2276-4 #### [facility] ([id number]) [address], [address] [place] [address] Glucose [Mass/Vol] 177 mg/dL High 65-99 [facility] Comment on above: Performed By: #### C BCA, CMP #### [facility] ([id number]) [address] [place] [address] 79141 #### 2857-1, 12295-7, 99475-2, FEPR, 2276-4 #### [facility] ([id number]) [address], [address] [place] [address] Potassium [Moles/Vol] 4.5 mmol/L Normal 3.5-5.0 [facility] Comment on above: Performed By: #### C BCA, CMP #### [facility] ([id number]) [address] [place] [address] 05359 #### 2857-1, 72731-0, 74338-0, FEPR, 2276-4 #### [facility] ([id number]) [address], [address] [place] [address] Protein [Mass/Vol] 7.6 g/dL Normal 6.0-8.0 [facility] Comment on above: Performed By: #### C BCA, CMP #### [facility] ([id number]) [address] [place] [address] 09831 #### 2857-1, 75109-0, 35550-0, FEPR, 2276-4 #### [facility] ([id number]) [address], [address] [place] [address] Sodium [Moles/Vol] 135 mmol/L Normal 134-146 [facility] Comment on above: Performed By: #### C BCA, CMP #### [facility] ([id number]) [address] [place] [address] 79268 #### 2857-1, 90694-8, 51718-7, FEPR, 2276-4 #### [facility] ([id number]) [address], [address] [place] [address] Urea nitrogen [Mass/Vol] 24 mg/dL Normal 5-27 [facility] Comment on above: Performed By: #### C BCA, CMP #### [facility] ([id number]) [address] [place] [address] 98268 #### 2857-1, 48714-0, 31280-4, FEPR, 2276-4 #### [facility] ([id number]) [address], [address] [place] [address] Lipid 1996 panelon 4 Cholesterol [Mass/Vol] 137 mg/dL Low 150-200 [facility] Comment on above: Performed By: #### C GARDENIA, CMP #### [facility] ([id number]) [address] [place] [address] 14254 #### 2857-1, 58946-9, 31767-4, FEPR, 2276-4 #### [facility] ([id number]) [address], [address] [place] [address] Cholesterol in HDL [Mass/Vol] 32 mg/dL Low >39 [facility] Comment on above: Result Comment: HDL <40 mg/dL - High Risk HDL > or = 40mg/dL- Desirable HDL >60 mg/dL - Negative Risk Performed By: #### C BCA, CMP #### [facility] ([id number]) [address] [place] [address] 81618 #### 2857-1, 31309-3, 75973-2, FEPR, 2276-4 #### [facility] ([id number]) [address], [address] [place] [address] Cholesterol in LDL [Mass/Vol] 50 mg/dL Normal <130 [facility] Comment on above: Result Comment: LDL <100 mg/dL - Desirable LDL >160 mg/dL - High Risk Performed By: #### C BCA, CMP #### [facility] ([id number]) [address] [place] [address] 34753 #### 2857-1, 95414-1, 29648-9, FEPR, 2276-4 #### [facility] ([id number]) [address], [address] [place] [address] Cholesterol in VLDL [Mass/Vol] 55 mg/dL High 0-30 [facility] Comment on above: Performed By: #### C BCA, CMP #### [facility] ([id number]) [address] [place] [address] 48336 #### 2857-1, 55491-6, 00412-1, FEPR, 2276-4 #### [facility] ([id number]) [facility], [address] [place] [address] CHOLESTEROL:HDL 4.3 Normal 1.0-5.0 [facility] Comment on above: Performed By: #### C BCA, CMP #### [facility] ([id number]) [address] [place] [address] 62486 #### 2857-1, 79611-8, 31246-9, FEPR, 2276-4 #### [facility] ([id number]) [address], [address] [place] [address] Triglyceride [Mass/Vol] 275 mg/dL High 27-150 [facility] Comment on above: Performed By: #### C BCA, CMP #### [facility] ([id number]) [address] [place] [address] 30597 #### 2857-1, 72157-9, 53726-8, FEPR, 2276-4 #### [facility] ([id number]) [address], [address] [place] [address] TSH WITH REFLEXon 05-09-2024 TSH 4.67 uIU/mL Normal 0.49-4.67 [facility] Comment on above: Performed By: #### C BCA, CMP #### [facility] ([id number]) [address] [place] [address] 74562 #### 2857-1, 13457-4, 03288-6, FEPR, 2276-4 #### [facility] ([id number]) [address], [address] [place] [address] BASIC METABOLIC PANLon 04-16 Anion gap [Moles/Vol] 10 mmol/L Normal 5-15 [facility] Comment on above: Performed By: #### C BCA, CMP #### [facility] ([id number]) [address] [place] [address] 12350 #### 2857-1, 46447-8, 97616-9, FEPR, 6-4 #### [facility] ([id number]) [address], [address] [place] [address] Calcium [Mass/Vol] 9.3 mg/dL Normal 8.5-10.5 [facility] Comment on above: Performed By: #### C BCA, CMP #### [facility] ([id number]) [address] [place] [address] 71735 #### 2857-1, 40042-2, 31960-4, FEPR, 2276-4 #### [facility] ([id number]) [address], [address] [place] [address] Chloride [Moles/Vol] 101 mmol/L Normal 98-109 [facility] Comment on above: Performed By: #### C BCA, CMP #### [facility] ([id number]) [address] [place] [address] #### 2857-1, 29570-3, 67350-2, FEPR, 2276-4 #### [facility] ([id number]) [address], [address] [place] [address] CO2 [Moles/Vol] 27 mmol/L Normal 22-32 [facility] Comment on above: Performed By: #### C BCA, CMP #### [facility] ([id number]) [address] [place] [address]67 #### 2857-1, 17588-8, 46537-1, FEPR, 2276-4 #### [facility] ([id number]) [address], [address] [place] [address] Creatinine [Mass/Vol] 1.19 mg/dL Normal 0.70-1.20 [facility] Comment on above: Result Comment: METH OD TRACEABLE TO IDMS STANDARD Performed By: #### C BCA, CMP #### [facility] ([id number]) [address] [place] [address] #### 2857-1, 63833-8, 71992-8, FEPR, 2276-4 #### [facility] ([id number]) [address], [address] [place] [address] GFR/1.73 sq M.predicted among non-blacks MDRD (S/P/Bld) [Vol rate/Area] 66 mL/min/{1.73_m2} Normal >59 [facility] Comment on above: Result Comment: Reported eGFR is based on the CKD-EPI 2020 equation that does not use a race coefficient. Performed By: #### C BCA, CMP #### [facility] ([id number]) [address] [place] [address] #### 2857-1, 23909-9, 26076-0, FEPR, 2276-4 #### [facility] ([id number]) [address], [address] [place] [address] Glucose [Mass/Vol] 165 mg/dL High 65-99 [facility] Comment on above: Performed By: #### C BCA, CMP #### [facility] ([id number]) [address] [place] [address] #### 2857-1, 75433-6, 62293-4, FEPR, 2276-4 #### [facility] ([id number]) [address], [address] [place] [address] Potassium [Moles/Vol] 4.2 mmol/L Normal 3.5-5.0 [facility] Comment on above: Performed By: #### C BCA, CMP #### [facility] ([id number]) [address] [place] [address] #### 2857-1, 06111-9, 87984-5, FEPR, 2276-4 #### [facility] ([id number]) [address], [address] [place] [address] Sodium [Moles/Vol] 138 mmol/L Normal 134-146 [facility] Comment on above: Performed By: #### C BCA, CMP #### [facility] ([id number]) [address] [place] [address] #### 2857-1, 60618-5, 08975-1, FEPR, 2276-4 #### [facility] ([id number]) [address], [address] [place] [address] Urea nitrogen [Mass/Vol] 17 mg/dL Normal 5-27 [facility] Comment on above: Performed By: #### C BCA, CMP #### [facility] ([id number]) [address] [place] [address] #### 2857-1, 96972-1, 39961-8, FEPR, 2276-4 #### [facility] ([id number]) [address], [address] [place] [address] CBC AND AUTO DIFFon 10-15-20 24 ABSOLUTE BASOPHIL 0.0 X10E9/L Normal 0.0-0.2 [facility] Comment on above: Performed By: #### C BCA, CMP #### [facility] ([id number]) [address] [place] [address] #### 2857-1, 18392-8, 34498-1, FEPR, 2276-4 #### [facility] ([id number]) [address], [address] [place] [address] ABSOLUTE NEUTROPHIL 4.0 X10E9/L Normal 1.5-6.6 [facility] Comment on above: Performed By: #### C BCA, CMP #### [facility] ([id number]) [address] [place] [address] 40536 #### 2857-1, 03600-5, 31351-7, FEPR, 2276-4 #### [facility] ([id number]) [address], [address] [place] [address] Basophils/100 WBC (Bld) 0.5 % Normal [facility] Comment on above: Performed By: #### C BCA, CMP #### [facility] ([id number]) [address] [place] [address] 99411 #### 2857-1, 31109-0, 95887-2, FEPR, 2276-4 #### [facility] ([id number]) [address], [address] [place] [address] Eosinophils (Bld) [#/Vol] 0.0 10*3/uL Normal 0.0-0.4 [facility] Comment on above: Performed By: #### C GARDENIA, CMP #### [facility] ([id number]) [address] [place] [address] 31314 #### 2857-1, 32736-3, 83178-7, FEPR, 2276-4 #### [facility] ([id number]) [address], [address] [place] [address] Eosinophils/100 WBC (Bld) 0.4 % Normal [facility] Comment on above: Performed By: #### C GARDENIA, CMP #### [facility] ([id number]) [address] [place] [address] 16645 #### 2857-1, 28650-6, 87038-8, FEPR, 2276-4 #### [facility] ([id number]) [address], [address] [place] [address] Erythrocyte distribution width (RBC) [Ratio] 15.7 % High 11.5-15.0 [facility] Comment on above: Performed By: #### C GARDENIA, CMP #### [facility] ([id number]) [address] [place] [address] 55780 #### 2857-1, 16664-6, 73905-4, FEPR, 2276-4 #### [facility] ([id number]) [address], [address] [place] [address] Hematocrit (Bld) [Volume fraction] 39.9 % Normal 39-49 [facility] Comment on above: Performed By: #### C BCA, CMP #### [facility] ([id number]) [address] [place] [address] 24543 #### 2857-1, 05007-9, 62576-3, FEPR, 2276-4 #### [facility] ([id number]) [address], [address] [place] [address] Hemoglobin (Bld) [Mass/Vol] 13.1 g/dL Normal 13.0-17.0 [facility] Comment on above: Performed By: #### C BCA, CMP #### [facility] ([id number]) [address] [place] [address] 29661 #### 2857-1, 69691-2, 70811-8, FEPR, 2276-4 #### [facility] ([id number]) [address], [address] [place] [address] Lymphocytes (Bld) [#/Vol] 1.1 10*3/uL Normal 1.0-3.5 [facility] Comment on above: Performed By: #### C BCA, CMP #### [facility] ([id number]) [address] [place] [address] 83784 #### 2857-1, 53590-1, 27809-9, FEPR, 2276-4 #### [facility] ([id number]) [address], [address] [place] [address] Lymphocytes/100 WBC (Bld) 18.2 % Normal [facility] Comment on above: Performed By: #### C BCA, CMP #### [facility] ([id number]) [address] [place] [address] 12903 #### 2857-1, 29962-2, 46152-6, FEPR, 2276-4 #### [facility] ([id number]) [address], [address] [place] [address] MCH (RBC) [Entitic mass] 30.6 pg Normal 27-34 [facility] Comment on above: Performed By: #### C BCA, CMP #### [facility] ([id number]) [address] [place] [address] 99465 #### 2857-1, 93992-9, 59717-9, FEPR, 2276-4 #### [facility] ([id number]) [address], [address] [place] [address] MCHC (RBC) [Mass/Vol] 32.8 g/dL Normal 32-36 [facility] Comment on above: Performed By: #### C BCA, CMP #### [facility] ([id number]) [address] [place] [address] 10166 #### 2857-1, 05751-2, 79914-8, FEPR, 6-4 #### [facility] ([id number]) [address], [address] [place] [address] MCV (RBC) [Entitic vol] 93 fL Normal 80-100 [facility] Comment on above: Performed By: #### C BCA, CMP #### [facility] ([id number]) [address] [place] [address] 02685 #### 2857-1, 02750-6, 30043-1, FEPR, 2275-4 #### [facility] ([id number]) [address], [address] [place] [address] Monocytes (Bld) [#/Vol] 0.8 10*3/uL Normal 0-0.9 [facility] Comment on above: Performed By: #### C BCA, CMP #### [facility] ([id number]) [address] [place] [address] 84361 #### 2857-1, 38706-0, 54936-4, FEPR, 2276-4 #### [facility] ([id number]) [address], [address] [place] [address] Monocytes/100 WBC (Bld) 13.5 % Normal [facility] Comment on above: Performed By: #### C BCA, CMP #### [facility] ([id number]) [address] [place] [address] 62425 #### 2857-1, 89953-4, 39753-5, FEPR, 2276-4 #### [facility] ([id number]) [address], [address] [place] [address] Neutrophils/100 WBC (Bld) 67.4 % Normal [facility] Comment on above: Performed By: #### C BCA, CMP #### [facility] ([id number]) [address] [place] [address] 68915 #### 2857-1, 48839-4, 47940-6, FEPR, 2276-4 #### [facility] ([id number]) [address], [address] [place] [address] Platelet mean volume (Bld) [Entitic vol] 7.4 fL Normal 7-12 [facility] Comment on above: Performed By: #### C BCA, CMP #### [facility] ([id number]) [address] [place] [address] 36284 #### 2857-1, 85796-5, 53854-9, FEPR, 2276-4 #### [facility] ([id number]) [address], [address] [place] [address] Platelets (Bld) [#/Vol] 284 10*3/uL Normal 150-450 [facility] Comment on above: Performed By: #### C BCA, CMP #### [facility] ([id number]) [address] [place] [address] 43004 #### 2857-1, 97786-9, 57475-1, FEPR, 2276-4 #### [facility] ([id number]) [address], [address] [place] [address] RBC COUNT 4.27 X10E12/L Normal 4.10-5.70 [facility] Comment on above: Performed By: #### C BCA, CMP #### [facility] ([id number]) [address] [facility] [address], [place] [address] #### 2857-1, 22426-3, 33349-3, FEPR, 2276-4 #### [facility] ([id number]) [address], [address] [place] [address] WBC (Bld) [#/Vol] 5.9 10*3/uL Normal 4.0-11.0 [facility] Comment on above: Performed By: #### C BCA, CMP #### [facility] ([id number]) [address] [place] [address], [place] [address] #### 2857-1, 35135-2, 11198-5, FEPR, 2276-4 #### [facility] ([id number]) [address], [address] [place] [address] CT BRAIN WO CONTon CT BRAIN WO [...] Avila DO on 04/16/2024 2:16 PM Normal [facility] CT CERVICAL SPINE WO CONTon 04-16-2024 [...] Avila DO on 04/16/2024 2:24 PM Normal [facility] CT FACIAL BONES WO CONTon CT [...] Morris Lau on 04/16/2024 2:30 PM Normal [facility] PROTIME AND INRon 04-16-2024 INR Coag (PPP) [Relative time] 2.1 {INR} High 0.8-1.1 [facility] Comment on above: Performed By: #### C GARDENIA, [facility] #### [facility] ([id number]) [address] [place] [address] #### 2857-1, 73922-9, 98649-6, FEPR, 2276-4 #### [facility] ([id number]) [address], [address] [place] [address] PT Coag (PPP) [Time] 23.7 s High 9.8-13.2 [facility] Comment on above: Result Comment: NEW REFERENCE RANGE Performed By: #### C BCA, CMP #### [facility] ([id number]) [address] [place] [address] 96763 #### 2857-1, 63002-6, 56105-7, FEPR, 2276-4 #### [facility] ([id number]) [address], [address] [place] [address] aPTT Coag (PPP) [Time]on aPTT Coag (Bld) [Time] 48 s High 26-37 [facility] Comment on above: Result Comment: NEW REFERENCE RANGE Performed By: #### C BCA, CMP #### [facility] ([id number]) [address] [place] [address] 71062 #### 2857-1, 24238-7, 42846-9, FEPR, 2276-4 #### [facility] ([id number]) [address], [facility] [place] [address] MR LUMBAR SPINE WO CONTon MR LUMBAR [...] Stephens MD on 04/01/2024 10:47 PM Normal [facility] XR HIP LT 2-3 VIEWS W [...] Jaramillo MD on 12/26/2023 10:07 AM Normal [facility] XR SPINE LUMBAR 2 OR 3 [...] Jaramillo MD on 12/26/2023 10:10 AM Normal [facility] CBC AND AUTO DIFFon 09-22-19 24 ABSOLUTE BASOPHIL 0.0 X10E9/L Normal 0.0-0.2 [facility] Comment on above: Performed By: #### C BCA, CMP, THYR #### [facility] ([id number]) [address] [place] [address], [place] [address] #### 2857-1, 94888-9, 57789-6 #### [facility] ([id number]) [address], [address] [place] [address] ABSOLUTE NEUTROPHIL 4.3 X10E9/L Normal 1.5-6.6 [facility] Comment on above: Performed By: #### C BCA, CMP, THYR #### [facility] ([id number]) [address] [place] [address] 84497 #### 2857-1, 79081-5, 30795-9 #### [facility] ([id number]) [address], [address] [place] [address] Basophils/100 WBC (Bld) 0.5 % Normal [facility] Comment on above: Performed By: #### C BCA, CMP, THYR #### [facility] ([id number]) [address] [place] [address] 88430 #### 2857-1, 13260-4, 77873-9 #### [facility] ([id number]) [address], [address] [place] [address] Eosinophils (Bld) [#/Vol] 0.0 10*3/uL Normal 0.0-0.4 [facility] Comment on above: Performed By: #### C BCA, CMP, THYR #### [facility] ([id number]) [address] [place] [address] 05989 #### 2857-1, 27380-7, 92444-8 #### [facility] ([id number]) [address], [address] [place] [address] Eosinophils/100 WBC (Bld) 0.7 % Normal [facility] Comment on above: Performed By: #### C BCA, CMP, THYR #### [facility] ([id number]) [address] [place] [address] 71391 #### 2857-1, 90652-2, 81202-9 #### [facility] ([id number]) [address], [address] [place] [address] Erythrocyte distribution width (RBC) [Ratio] 15.8 % High 11.5-15.0 [facility] Comment on above: Performed By: #### C BCA, CMP, THYR #### [facility] ([id number]) [address] [place] [address] 72884 #### 2857-1, 48456-3, 03691-4 #### [facility] ([id number]) [address], [address] [place] [address] Hematocrit (Bld) [Volume fraction] 39.8 % Normal 39-49 [facility] Comment on above: Performed By: #### C BCA, CMP, THYR #### [facility] ([id number]) [address] [place] [address] 76232 #### 2857-1, 81682-3, 00612-8 #### [facility] ([id number]) [address], [address] [place] [address] Hemoglobin (Bld) [Mass/Vol] 13.2 g/dL Normal 13.0-17.0 [facility] Comment on above: Performed By: #### C BCA, CMP, THYR #### [facility] ([id number]) [address] [place] [address] 39520 #### 2857-1, 74299-4, 80048-8 #### [facility] ([id number]) [address], [address] [place] [address] Lymphocytes (Bld) [#/Vol] 1.1 10*3/uL Normal 1.0-3.5 [facility] Comment on above: Performed By: #### C BCA, CMP, THYR #### [facility] ([id number]) [address] [place] [address] 34778 #### 2857-1, 41099-2, 84991-6 #### [facility] ([id number]) [address], [address] [place] [address] Lymphocytes/100 WBC (Bld) 17.7 % Normal [facility] Comment on above: Performed By: #### C BCA, CMP, THYR #### [facility] ([id number]) [address] [place] [address] 55833 #### 2857-1, 42241-0, 51803-5 #### [facility] ([id number]) [address], [address] [place] [address] MCH (RBC) [Entitic mass] 29.8 pg Normal 27-34 [facility] Comment on above: Performed By: #### C BCA, CMP, THYR #### [facility] ([id number]) [address] [place] [address] 33767 #### 2857-1, 31395-7, 85842-6 #### [facility] ([id number]) [address], [address] [place] [address] MCHC (RBC) [Mass/Vol] 33.1 g/dL Normal 32-36 [facility] Comment on above: Performed By: #### C BCA, CMP, THYR #### [facility] ([id number]) [address] [place] [address] 63112 #### 2857-1, 79181-7, 23925-9 #### [facility] ([id number]) [address], [address] [place] [address] MCV (RBC) [Entitic vol] 90 fL Normal 80-100 [facility] Comment on above: Performed By: #### C BCA, CMP, THYR #### [facility] ([id number]) [address] [place] [address] 62842 #### 2857-1, 40910-7, 96397-3 #### [facility] ([id number]) [address], [address] [place] [address] Monocytes (Bld) [#/Vol] 0.8 10*3/uL Normal 0-0.9 [facility] Comment on above: Performed By: #### C BCA, CMP, THYR #### [facility] ([id number]) [address] [place] [address] 68183 #### 2857-1, 90783-0, 80736-4 #### [facility] ([id number]) [address], [address] [place] [address] Monocytes/100 WBC (Bld) 12.8 % Normal [facility] Comment on above: Performed By: #### C BCA, CMP, THYR #### [facility] ([id number]) [address] [place] [address] 20892 #### 2857-1, 91043-5, 28192-2 #### [facility] ([id number]) [address], [address] [place] [address] Neutrophils/100 WBC (Bld) 68.3 % Normal [facility] Comment on above: Performed By: #### C BCA, CMP, THYR #### [facility] ([id number]) [address] [place] [address] 92438 #### 2857-1, 18626-6, 40778-4 #### [facility] ([id number]) [address], [address] [place] [address] Platelet mean volume (Bld) [Entitic vol] 7.8 fL Normal 7-12 [facility] Comment on above: Performed By: #### C BCA, CMP, THYR #### [facility] ([id number]) [address] [place] [address] 15337 #### 2857-1, 87036-3, 72098-5 #### [facility] ([id number]) [address], [address] [place] [address] Platelets (Bld) [#/Vol] 259 10*3/uL Normal 150-450 [facility] Comment on above: Performed By: #### C BCA, CMP, THYR #### [facility] ([id number]) [address] [place] [address] 62157 #### 2857-1, 88479-2, 15363-0 #### [facility] ([id number]) [address], [address] [place] [address] RBC COUNT 4.42 X10E12/L Normal 4.10-5.70 [facility] Comment on above: Performed By: #### C BCA, CMP, THYR #### [facility] ([id number]) [address] [place] [address] 66320 #### 2857-1, 35955-4, 70304-1 #### [facility] ([id number]) [address], [address] [place] [address] WBC (Bld) [#/Vol] 6.2 10*3/uL Normal 4.0-11.0 [facility] Comment on above: Performed By: #### C BCA, CMP, THYR #### [facility] ([id number]) [address] [place] [address] 81010 #### 2857-1, 94139-9, 45291-3 #### [facility] ([id number]) [address], [address] [place] [address] COMPREHENSIVE METABOLIC PANE Alex 09-22-2023 Albumin [Mass/Vol] 4.2 g/dL Normal 3.2-5.3 [facility] Comment on above: Performed By: #### C BCA, CMP, THYR #### [facility] ([id number]) [address] [place] [address] 38908 #### 2857-1, 04045-8, 93956-7 #### [facility] ([id number]) [address] [facility], [address] [place] [address] ALP [Catalytic activity/Vol] 41 U/L Normal 39-130 [facility] Comment on above: Performed By: #### C BCA, CMP, THYR #### [facility] ([id number]) [address] [place] [address] 01569 #### 2857-1, 29717-1, 69060-2 #### [facility] ([id number]) [address] [place] [address], [address] [place] [address] ALT [Catalytic activity/Vol] 17 U/L Normal 0-40 [facility] Comment on above: Performed By: #### C BCA, CMP, THYR #### [facility] ([id number]) [address] [place] [address] 98066 #### 2857-1, 64123-4, 73676-1 #### [facility] ([id number]) [address] [place] [address], [address] [place] [address] Anion gap [Moles/Vol] 6 mmol/L Normal 5-15 [facility] Comment on above: Performed By: #### C BCA, CMP, THYR #### [facility] ([id number]) [address] [place] [address] 34175 #### 2857-1, 68054-8, 86507-0 #### [facility] ([id number]) [address] [place] [address], [address] [place] [address] AST [Catalytic activity/Vol] 20 U/L Normal 0-41 [facility] Comment on above: Performed By: #### C BCA, CMP, THYR #### [facility] ([id number]) [address] [place] [address] 41454 #### 2857-1, 07080-8, 76617-3 #### [facility] ([id number]) [address], [address] [place] [address] Bilirubin [Mass/Vol] 0.4 mg/dL Normal 0.3-1.2 [facility] Comment on above: Performed By: #### C BCA, CMP, THYR #### [facility] ([id number]) [address] [place] [address] 78564 #### 2857-1, 94592-1, 45427-8 #### [facility] ([id number]) [address], [address] [place] [address] Calcium [Mass/Vol] 9.3 mg/dL Normal 8.5-10.5 [facility] Comment on above: Performed By: #### C BCA, CMP, THYR #### [facility] ([id number]) [address] [place] [address] 25810 #### 2857-1, 33059-6, 49228-4 #### [facility] ([id number]) [address], [address] [place] [address] Chloride [Moles/Vol] 103 mmol/L Normal 98-109 [facility] Comment on above: Performed By: #### C BCA, CMP, THYR #### [facility] ([id number]) [address] [place] [address] 36914 #### 2857-1, 55035-4, 35125-8 #### [facility] ([id number]) [address], [address] [place] [address] CO2 [Moles/Vol] 27 mmol/L Normal 22-32 [facility] Comment on above: Performed By: #### C BCA, CMP, THYR #### [facility] ([id number]) [address] [place] [address] 68911 #### 2857-1, 93390-1, 98188-3 #### [facility] ([id number]) [address], [address] [place] [address] Creatinine [Mass/Vol] 1.12 mg/dL Normal 0.70-1.20 [facility] Comment on above: Result Comment: METH OD TRACEABLE TO IDMS STANDARD Performed By: #### C BCA, CMP, THYR #### [facility] ([id number]) [address] [place] [address] 87235 #### 2857-1, 84938-8, 66706-1 #### [facility] ([id number]) [address], [address] [place] [address] GFR/1.73 sq M.predicted among non-blacks MDRD (S/P/Bld) [Vol rate/Area] 71 mL/min/{1.73_m2} Normal >59 [facility] Comment on above: Result Comment: Reported eGFR is based on the CKD-EPI 2020 equation that does not use a race coefficient. Performed By: #### C BCA, CMP, THYR #### [facility] ([id number]) [address] [place] [address] 55406 #### 2857-1, 31912-1, 10969-6 #### [facility] ([id number]) [address], [address] [place] [address] Glucose [Mass/Vol] 178 mg/dL High 65-99 [facility] Comment on above: Performed By: #### C BCA, CMP, THYR #### [facility] ([id number]) [address] [place] [address] #### 2857-1, 38667-8, 16131-2 #### [facility] ([id number]) [address], [address] [place] [address] Potassium [Moles/Vol] 4.6 mmol/L Normal 3.5-5.0 [facility] Comment on above: Performed By: #### C BCA, CMP, THYR #### [facility] ([id number]) [address] [place] [address] #### 2857-1, 50955-8, 05277-0 #### [facility] ([id number]) [address], [address] [place] [address] Protein [Mass/Vol] 7.8 g/dL Normal 6.0-8.0 [facility] Comment on above: Performed By: #### C BCA, CMP, THYR #### [facility] ([id number]) [address] [place] [address] #### 2857-1, 98145-4, 84065-4 #### [facility] ([id number]) [address], [address] [place] [address] Sodium [Moles/Vol] 136 mmol/L Normal 134-146 [facility] Comment on above: Performed By: #### C BCA, CMP, THYR #### [facility] ([id number]) [address] [place] [address] #### 2857-1, 38283-8, 68351-5 #### [facility] ([id number]) [address], [address] [place] [address] Urea nitrogen [Mass/Vol] 18 mg/dL Normal 5-27 [facility] Comment on above: Performed By: #### C BCA, CMP, THYR #### [facility] ([id number]) [address] [place] [address] #### 2857-1, 08007-0, 79389-6 #### [facility] ([id number]) [address], [address] [place] [address] HCV Ab IA Qlon 09-22-2023 ANTI HCV W/PCR REFLX Non-Reactive Normal NRCT [facility] Comment on above: Result Comment: If recent infection suspected, recommend repeat testing (>2 months). Nklsxx-yz-eohxkd ratio is <0.80. Performed By: #### C BCA, CMP #### [facility] ([id number]) [address] [place] [address] #### 2857-1, 47975-4, 32526-9, FEPR, 2276-4 #### [facility] ([id number]) [address], [address] [place] [address] HGB A1C (GLYCO-HGB)on 2023 Glucose [Mass/Vol] 180 mg/dL Normal [facility] Comment on above: Performed By: #### C BCA, CMP #### [facility] ([id number]) [address] [place] [address] #### 2857-1, 53929-9, 48537-5, FEPR, 2276-4 #### [facility] ([id number]) [address], [address] [place] [address] HbA1c (Bld) [Mass fraction] 7.9 % High 4.4-5.6 [facility] Comment on above: Result Comment: NOTE ADA Guidelines Result HgbA1c Normal : less than 5.7 % Prediabetes : 5.7 % to 6.4 % Diabetes : > 6.4 % Use with caution in patients with abnormal hemoglobin variants as the half-life of red blood cells and in vivo glycation rates are affected. Performed By: #### C BCA, CMP #### [facility] ([id number]) [address] [place] [address] #### 2857-1, 29420-7, 61747-3, FEPR, 2276-4 #### [facility] ([id number]) [address], [address] [place] [address] Prostate specific Ag [Mass/V ol]on 09-22-2023 PSA SCREEN 0.89 ng/mL Normal 0.00-4.00 [facility] Comment on above: Result Comment: The method used for this test is [employer] DXI chemiluminescent immunoassay. Values obtained by different assay methods cannot be used interchangeably. Performed By: #### C BCA, CMP #### [facility] ([id number]) [address] [place] [address] #### 2857-1, 09684-0, 99897-5, FEPR, 2276-4 #### [facility] ([id number]) [address], [address] [place] [address] THYROID PROFILEon 09-22-2023 Free T4 [Mass/Vol] 1.03 ng/dL Normal 0.61-1.60 [facility] Comment on above: Performed By: #### C BCA, CMP #### [facility] ([id number]) [address] [place] [address] #### 2857-1, 11590-3, 06030-3, FEPR, 2276-4 #### [facility] ([id number]) [address], [address] [place] [address] TSH 4.47 uIU/mL Normal 0.49-4.67 [facility] Comment on above: Performed By: #### C BCA, CMP #### [facility] ([id number]) [address] [place] [address] 08826 #### 2857-1, 74719-3, 26030-3, FEPR, 2276-4 #### [facility] ([id number]) [address], [address] [place] [address] Vitamin D+Metabolites [Mass/ Vol]on 09-22-2023 VITAMIN D 25 HYD TOT 23.7 ng/mL Low 30-100 [facility] Comment on above: Result Comment: Vitamin D status 25 [place] Vitamin D Deficiency <20 ng/mL Insufficiency 20-29 ng/mL Sufficiency 30-100 ng/mL Toxicity >100 ng/mL NOTE: A pediatric reference range has not been established by the hand thermal cutter of this kit. The [employer] recommends a Vitamin D level of = or >20ng/mL in infants and children. Performed By: #### C GARDENIA, CMP #### [facility] ([id number]) [address] [place] [address] 79862 #### 2857-1, 97421-5, 85210-2, FEPR, 2276-4 #### [facility] ([id number]) [address] [place] [address], [address] [place] [address] CBC AND AUTO DIFFon 08-02-19 24 ABSOLUTE BASOPHIL 0.0 X10E9/L Normal 0.0-0.2 [facility] Comment on above: Performed By: #### Jerry VARNER, CMP #### [facility] ([id number]) [address] [place] [address] 56720 #### 2857-1, 59180-3, 32208-8, FEPR, 2276-4 #### [facility] ([id number]) [address] [place] [address], [address] [place] [address] ABSOLUTE NEUTROPHIL 4.4 X10E9/L Normal 1.5-6.6 [facility] Comment on above: Performed By: #### C GARDENIA, CMP #### [facility] ([id number]) [address] [place] [address] 25485 #### 2857-1, 85871-2, 23837-9, FEPR, 2276-4 #### [facility] ([id number]) [address], [address] [place] [address] Basophils/100 WBC (Bld) 0.5 % Normal [facility] Comment on above: Performed By: #### C BCA, CMP #### [facility] ([id number]) [address] [place] [address] 79418 #### 2857-1, 62071-9, 56827-7, FEPR, 6-4 #### [facility] ([id number]) [address], [address] [place] [address] Eosinophils (Bld) [#/Vol] 0.1 10*3/uL Normal 0.0-0.4 [facility] Comment on above: Performed By: #### C BCA, CMP #### [facility] ([id number]) [address] [place] [address] 79224 #### 2857-1, 81508-8, 73318-1, FEPR, 6-4 #### [facility] ([id number]) [address] [facility], [address] [place] [address] Eosinophils/100 WBC (Bld) 0.9 % Normal [facility] Comment on above: Performed By: #### C BCA, CMP #### [facility] ([id number]) [address] [place] [address] 88339 #### 2857-1, 33860-2, 08385-9, FEPR, 6-4 #### [facility] ([id number]) [address], [address] [place] [address] Erythrocyte distribution width (RBC) [Ratio] 15.7 % High 11.5-15.0 [facility] Comment on above: Performed By: #### C BCA, CMP #### [facility] ([id number]) [address] [place] [address] 26355 #### 2857-1, 80325-3, 52437-1, FEPR, 2276-4 #### [facility] ([id number]) [address], [address] [place] [address] Hematocrit (Bld) [Volume fraction] 38.3 % Low 39-49 [facility] Comment on above: Performed By: #### C BCA, CMP #### [facility] ([id number]) [address] [place] [address] 29230 #### 2857-1, 01597-1, 92876-6, FEPR, 2276-4 #### [facility] ([id number]) [address], [address] [place] [address] Hemoglobin (Bld) [Mass/Vol] 12.5 g/dL Low 13.0-17.0 [facility] Comment on above: Performed By: #### Jerry BCA, CMP #### [facility] ([id number]) [address] [place] [address] 33217 #### 2857-1, 49632-1, 19991-0, FEPR, 6-4 #### [facility] ([id number]) [address], [address] [place] [address] Lymphocytes (Bld) [#/Vol] 1.2 10*3/uL Normal 1.0-3.5 [facility] Comment on above: Performed By: #### C BCA, CMP #### [facility] ([id number]) [address] [place] [address] 53573 #### 2857-1, 16816-1, 77853-0, FEPR, 2276-4 #### [facility] ([id number]) [address], [address] [place] [address] Lymphocytes/100 WBC (Bld) 18.4 % Normal [facility] Comment on above: Performed By: #### C BCA, CMP #### [facility] ([id number]) [address] [place] [address] 46681 #### 2857-1, 42814-6, 26056-1, FEPR, 2276-4 #### [facility] ([id number]) [address], [address] [place] [address] MCH (RBC) [Entitic mass] 29.1 pg Normal 27-34 [facility] Comment on above: Performed By: #### C BCA, CMP #### [facility] ([id number]) [address] [place] [address] 15453 #### 2857-1, 84889-7, 44217-7, FEPR, 2276-4 #### [facility] ([id number]) [address], [address] [place] [address] MCHC (RBC) [Mass/Vol] 32.7 g/dL Normal 32-36 [facility] Comment on above: Performed By: #### C BCA, CMP #### [facility] ([id number]) [address] [place] [address] 71745 #### 2857-1, 68539-0, 16967-4, FEPR, 2276-4 #### [facility] ([id number]) [address], [address] [place] [address] MCV (RBC) [Entitic vol] 89 fL Normal 80-100 [facility] Comment on above: Performed By: #### C BCA, CMP #### [facility] ([id number]) [address] [place] [address] 54842 #### 2857-1, 40911-7, 01391-2, FEPR, 2276-4 #### [facility] ([id number]) [address], [address] [place] [address] Monocytes (Bld) [#/Vol] 1.0 10*3/uL High 0-0.9 [facility] Comment on above: Performed By: #### C BCA, CMP #### [facility] ([id number]) [address] [place] [address] 96958 #### 2857-1, 08780-2, 29426-6, FEPR, 2276-4 #### [facility] ([id number]) [address], [address] [place] [address] Monocytes/100 WBC (Bld) 14.3 % Normal [facility] Comment on above: Performed By: #### C GARDENIA, CMP #### [facility] ([id number]) [address] [place] [address] 13680 #### 2857-1, 32152-3, 53984-5, FEPR, 2276-4 #### [facility] ([id number]) [address], [address] [place] [address] Neutrophils/100 WBC (Bld) 65.9 % Normal [facility] Comment on above: Performed By: #### Jerry BCA, CMP #### [facility] ([id number]) [address] [place] [address] 31805 #### 2857-1, 57005-8, 97681-8, FEPR, 2276-4 #### [facility] ([id number]) [address], [address] [place] [address] Platelet mean volume (Bld) [Entitic vol] 8.3 fL Normal 7-12 [facility] Comment on above: Performed By: #### C BCA, CMP #### [facility] ([id number]) [address] [place] [address] 77532 #### 2857-1, 55497-3, 19250-0, FEPR, 2276-4 #### [facility] ([id number]) [address], [address] [place] [address] Platelets (Bld) [#/Vol] 271 10*3/uL Normal 150-450 [facility] Comment on above: Performed By: #### C BCA, CMP #### [facility] ([id number]) [address] [place] [address] 58605 #### 2857-1, 51296-4, 88806-6, FEPR, 2276-4 #### [facility] ([id number]) [address], [address] [place] [address] RBC COUNT 4.31 X10E12/L Normal 4.10-5.70 [facility] Comment on above: Performed By: #### C BCA, CMP #### [facility] ([id number]) [address] [place] [address] 20351 #### 2857-1, 94179-8, 61464-0, FEPR, 2276-4 #### [facility] ([id number]) [address], [address] [place] [address] WBC (Bld) [#/Vol] 6.7 10*3/uL Normal 4.0-11.0 [facility] Comment on above: Performed By: #### C BCA, CMP #### [facility] ([id number]) [address] [place] [address] 98055 #### 2857-1, 95658-8, 44547-9, FEPR, 2276-4 #### [facility] ([id number]) [address], [address] [place] [address] COMPREHENSIVE METABOLIC PANE Alex 08-02-2023 Albumin [Mass/Vol] 3.8 g/dL Normal 3.2-5.3 [facility] Comment on above: Performed By: #### C BCA, CMP #### [facility] ([id number]) [address] [place] [address] 91794 #### 2857-1, 64395-2, 71080-7, FEPR, 2276-4 #### [facility] ([id number]) [address], [address] [place] [address] ALP [Catalytic activity/Vol] 48 U/L Normal 39-130 [facility] Comment on above: Performed By: #### C BCA, CMP #### [facility] ([id number]) [address] [place] [address] 87028 #### 2857-1, 89762-8, 44765-3, FEPR, 2276-4 #### [facility] ([id number]) [address], [address] [place] [address] ALT [Catalytic activity/Vol] 18 U/L Normal 0-40 [facility] Comment on above: Performed By: #### C BCA, CMP #### [facility] ([id number]) [address] [place] [address] 08246 #### 2857-1, 36576-1, 19228-7, FEPR, 2276-4 #### [facility] ([id number]) [address], [address] [place] [address] Anion gap [Moles/Vol] 9 mmol/L Normal 5-15 [facility] Comment on above: Performed By: #### C BCA, CMP #### [facility] ([id number]) [address] [place] [address] 03888 #### 2857-1, 88778-0, 50558-2, FEPR, 2276-4 #### [facility] ([id number]) [address], [address] [place] [address] AST [Catalytic activity/Vol] 24 U/L Normal 0-41 [facility] Comment on above: Performed By: #### C BCA, CMP #### [facility] ([id number]) [address] [place] [address] 96434 #### 2857-1, 05911-6, 74701-5, FEPR, 2276-4 #### [facility] ([id number]) [address], [address] [place] [address] Bilirubin [Mass/Vol] 0.6 mg/dL Normal 0.3-1.2 [facility] Comment on above: Performed By: #### C BCA, CMP #### [facility] ([id number]) [address] [place] [address] 24462 #### 2857-1, 72053-6, 11567-0, FEPR, 2276-4 #### [facility] ([id number]) [address], [address] [place] [address] Calcium [Mass/Vol] 9.0 mg/dL Normal 8.5-10.5 [facility] Comment on above: Performed By: #### C BCA, CMP #### [facility] ([id number]) [address] [place] [address] 79594 #### 2857-1, 91254-4, 71858-6, FEPR, 2276-4 #### [facility] ([id number]) [address], [address] [place] [address] Chloride [Moles/Vol] 98 mmol/L Normal 98-109 [facility] Comment on above: Performed By: #### C BCA, CMP #### [facility] ([id number]) [address] [place] [address] 82269 #### 2857-1, 81597-9, 66265-2, FEPR, 2276-4 #### [facility] ([id number]) [address], [address] [place] [address] CO2 [Moles/Vol] 28 mmol/L Normal 22-32 [facility] Comment on above: Performed By: #### C BCA, CMP #### [facility] ([id number]) [address] [place] [address] 08441 #### 2857-1, 36136-1, 70037-8, FEPR, 2276-4 #### [facility] ([id number]) [address], [address] [place] [address] Creatinine [Mass/Vol] 0.93 mg/dL Normal 0.70-1.20 [facility] Comment on above: Result Comment: METH OD TRACEABLE TO IDMS STANDARD Performed By: #### C BCA, CMP #### [facility] ([id number]) [address] [place] [address] 07582 #### 2857-1, 29846-6, 46607-3, FEPR, 2276-4 #### [facility] ([id number]) [address], [address] [place] [address] GFR/1.73 sq M.predicted among non-blacks MDRD (S/P/Bld) [Vol rate/Area] 89 mL/min/{1.73_m2} Normal >59 [facility] Comment on above: Result Comment: Reported eGFR is based on the CKD-EPI 2020 equation that does not use a race coefficient. Performed By: #### C BCA, CMP #### [facility] ([id number]) [address] [place] [address] 44730 #### 2857-1, 08266-6, 56044-7, FEPR, 2276-4 #### [facility] ([id number]) [address], [address] [place] [address] Glucose [Mass/Vol] 193 mg/dL High 65-99 [facility] Comment on above: Performed By: #### C BCA, CMP #### [facility] ([id number]) [address] [place] [address] 11604 #### 2857-1, 80589-3, 84367-4, FEPR, 2276-4 #### [facility] ([id number]) [address], [address] [place] [address] Potassium [Moles/Vol] 4.8 mmol/L Normal 3.5-5.0 [facility] Comment on above: Performed By: #### C BCA, CMP #### [facility] ([id number]) [address] [place] [address] 43323 #### 2857-1, 88271-1, 43843-5, FEPR, 2276-4 #### [facility] ([id number]) [address], [address] [place] [address] Protein [Mass/Vol] 7.8 g/dL Normal 6.0-8.0 [facility] Comment on above: Performed By: #### C BCA, CMP #### [facility] ([id number]) [address] [place] [address] 88077 #### 2857-1, 48899-0, 18817-5, FEPR, 2276-4 #### [facility] ([id number]) [address], [address] [place] [address] Sodium [Moles/Vol] 135 mmol/L Normal 134-146 [facility] Comment on above: Performed By: #### C BCA, CMP #### [facility] ([id number]) [address] [place] [address] 13259 #### 2857-1, 39675-2, 41090-8, FEPR, 2276-4 #### [facility] ([id number]) [address], [address] [place] [address] Urea nitrogen [Mass/Vol] 20 mg/dL Normal 5-27 [facility] Comment on above: Performed By: #### C BCA, CMP #### [facility] ([id number]) [address] [place] [address] 08094 #### 2857-1, 73386-0, 22334-4, FEPR, 2276-4 #### [facility] ([id number]) [address] [facility], [address] [place] [address] FERRITINon 08-02-2023 Ferritin [Mass/Vol] 29 ng/mL Normal 24-336 [facility] Comment on above: Performed By: #### C BCA, CMP #### [facility] ([id number]) [address] [place] [address] 28705 #### 2857-1, 81138-1, 46856-4, FEPR, 2276-4 #### [facility] ([id number]) [address] [place] [address], [address] [place] [address] HCV Ab IA Qlon 08-02-2023 ANTI HCV W/PCR REFLX Non-Reactive Normal NRCT [facility] Comment on above: Result Comment: If recent infection suspected, recommend repeat testing (>2 months). Fabdfz-no-fqewpf ratio is <0.80. Performed By: #### C BCA, CMP #### [facility] ([id number]) [address] [place] [address] 41102 #### 2857-1, 78360-1, 99715-1, FEPR, 2276-4 #### [facility] ([id number]) [address] [place] [address], [address] [place] [address] HGB A1C (GLYCO-HGB)on 2023 Glucose [Mass/Vol] 189 mg/dL Normal [facility] Comment on above: Performed By: #### C BCA, CMP #### [facility] ([id number]) [address] [place] [address] 76651 #### 2857-1, 95815-7, 37542-8, FEPR, 2276-4 #### [facility] ([id number]) [address], [address] [place] [address] HbA1c (Bld) [Mass fraction] 8.2 % High 4.4-5.6 [facility] Comment on above: Result Comment: NOTE ADA Guidelines Result HgbA1c Normal : less than 5.7 % Prediabetes : 5.7 % to 6.4 % Diabetes : > 6.4 % Use with caution in patients with abnormal hemoglobin variants as the half-life of red blood cells and in vivo glycation rates are affected. Performed By: #### C BCA, CMP #### [facility] ([id number]) [address] [place] [address] 42794 #### 2857-1, 45456-9, 74712-3, FEPR, 2276-4 #### [facility] ([id number]) [address] [facility], [address] [place] [address] IRON PROFILEon 08-02-2023 Iron [Mass/Vol] 47 ug/dL Low 50-212 [facility] Comment on above: Performed By: #### C BCA, CMP #### [facility] ([id number]) [address] [place] [address] 51182 #### 2857-1, 98188-6, 28323-0, FEPR, 2276-4 #### [facility] ([id number]) [address], [address] [place] [address] IRON BINDING 379 ug/dL Normal 250-425 [facility] Comment on above: Performed By: #### C BCA, CMP #### [facility] ([id number]) [address] [place] [address] 02638 #### 2857-1, 86185-1, 74192-1, FEPR, 2276-4 #### [facility] ([id number]) [address], [address] [place] [address] IRON SATURATION 12 % SATURATION Low 20-50 [facility] Comment on above: Performed By: #### C GARDENIA, CMP #### [facility] ([id number]) [address] [place] [address] 38803 #### 2857-1, 01218-2, 20442-8, FEPR, 2276-4 #### [facility] ([id number]) [address], [address] [place] [address] Prostate specific Ag [Mass/V ol]on 08-02-2023 PSA SCREEN 0.52 ng/mL Normal 0.00-4.00 [facility] Comment on above: Result Comment: The method used for this test is [employer] DXI chemiluminescent immunoassay. Values obtained by different assay methods cannot be used interchangeably. Performed By: #### C GARDENIA, CMP #### [facility] ([id number]) [address] [place] [address] 07856 #### 2857-1, 75511-3, 52732-3, FEPR, 2276-4 #### [facility] ([id number]) [address], [address] [place] [address] Vitamin D+Metabolites [Mass/ Vol]on 08-02-2023 VITAMIN D 25 HYD TOT 19.2 ng/mL Low 30-100 [facility] Comment on above: Result Comment: Vitamin D status 25 [place] Vitamin D Deficiency <20 ng/mL Insufficiency 20-29 ng/mL Sufficiency 30-100 ng/mL Toxicity >100 ng/mL NOTE: A pediatric reference range has not been established by the hand thermal cutter of this kit. The [employer] recommends a Vitamin D level of = or >20ng/mL in infants and children. Performed By: #### C BCA, [facility] #### [facility] ([id number]) [address] [facility] [address], [place] [address] #### 2857-1, 61529-8, 45575-2, FEPR, 2276-4 #### [facility] ([id number]) [address] [facility], [address] [place] [address] Vital Signs Date Time Vital Sign Value Performing Clinician Facility 05-23-2024 11:55-0500 Diastolic blood pressure 73 mm[Hg] Bebeto LEON [facility] 05-23-2024 11:55-0500 Heart rate 71 /min Bebeto LEON Work Phone: [facility] 05-23-2024 11:55-0500 Respiratory rate 20 /min Bebeto LEON Work Phone: [facility] 05-23-2024 11:55-0500 SaO2% (BldA) [Mass fraction] 100 % Bebeto LEON Work Phone: [facility] 05-23-2024 11:55-0500 Systolic blood pressure 145 mm[Hg] Bebeto LEON Work Phone: [facility] 04-09-2024 10:12-0400 Body height 175.3 cm Bebeto LEON Work Phone: [facility] Comment on above: stated 04-09-2024 10:12-0400 Body mass index (BMI) [Ratio] 27.62 kg/m2 Bebeto LEON Work Phone: [facility] 04-09-2024 10:12-0400 Body weight 84.82 kg Bebeto LEON Work Phone: [facility] 04-09-2024 10:12-0400 Diastolic blood pressure 97 mm[Hg] Bebeto LEON Work Phone: [facility] 04-09-2024 10:12-0400 Heart rate 63 /min Bebeto LEON Work Phone: [facility] 04-09-2024 10:12-0400 Respiratory rate 16 /min Bebeto LEON Work Phone: [facility] 04-09-2024 10:12-0400 SaO2% (BldA) [Mass fraction] 100 % Bebeto LEON Work Phone: [facility] 04-09-2024 10:12-0400 Systolic blood pressure 141 mm[Hg] Bebeto LEON Work Phone: [facility] Encounters Encounter Date Encounter Type Care Provider Facility Start: 07-22-2024 End: 07-22-2024 ambulatory MARIANA Liu [facility] Start: 07-12-2024 End: 07-22-2024 Refill Liliana Rivera [employer] Work Phone: [facility] Comment on above: Med Change Request Start: 05-23-2024 End: 05-23-2024 Refill Bebeto Espino [employer] Work Phone: [facility] Comment on above: Med Refill Start: 05-23-2024 End: 05-23-2024 Office outpatient visit 15 minutes Bebeto LEON Work Phone: [facility] Comment on above: Lumbosacral 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 (Primary Dx) Start: 05-23-2024 End: 05-23-2024 ambulatory BEBETO HAQ [facility] Start: 05-09-2024 End: 05-09-2024 ambulatory IZZY SAM [facility] Start: 05-03-2024 End: 05-03-2024 ambulatory NAY HYDE [facility] Start: 04-16-2024 End: 04-16-2024 Emergency department patient visit [facility] Start: 04-09-2024 End: 04-09-2024 Office outpatient visit 25 minutes Bebeto LEON Work Phone: [facility] Comment on above: Lumbosacral 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 (Primary Dx) Start: 04-09-2024 End: 04-09-2024 ambulatory [facility] Start: 04-01-2024 End: 04-01-2024 ambulatory [facility] Start: 02-22-2024 End: 02-22-2024 ambulatory [facility] Start: 01-09-2024 End: 01-09-2024 ambulatory [facility] Start: 12-26-2023 End: 12-27-2023 Emergency department patient visit DIVYA Valera CHEMARIA E [facility] Start: 09-22-2023 End: 09-22-2023 ambulatory [facility] Start: 08-02-2023 End: 08-02-2023 ambulatory [facility] Start: 11-14-2022 End: 11-15-2022 ambulatory MARIANA Liu [facility] Facility:H1 Start: 10-24-2022 End: 10-25-2022 ambulatory MARIANA Liu [facility] Facility:H1 Start: 10-03-2022 End: 10-04-2022 ambulatory MARIANA Liu [facility] Facility:H1 Start: 09-12-2022 End: 09-13-2022 ambulatory [facility] Facility:H1 Start: 08-23-2022 End: 08-24-2022 ambulatory MARIANA Liu [facility] Facility:H1 Start: 08-16-2022 End: 08-17-2022 ambulatory MARIANA Liu [facility] Facility:H1 Start: 08-09-2022 End: 08-10-2022 [facility] Procedures Date Procedure Procedure Detail Performing Clinician Start: 04-06-2023 Microalbumin [Mass/v olume] in Urine by Test strip Bebeto LEON Work Phone: Plan of Treatment Date Care Activity Detail Author Start: 05-23-2025 Tobacco Screening Tobacco Screening [facility] Start: 04-16-2025 Adult BMI Screening Adult BMI Screen ing [facility] Start: 04-09-2025 Adult BMI Screening Adult BMI Screen ing [facility] Start: 04-09-2025 Tobacco Screening Tobacco Screening [facility] Start: 07-24-2024 End: 07-24-2024 Clinical Support [facility] Start: 07-04-2024 End: 07-04-2024 Patient encounter procedure 07/04/2024 10:00 AM EST Office Visit [facility] [facility] [address] [place] [address] Bebeto Haq PA [address] [place] [address] [facility] Start: 05-23-2024 End: 05-23-2024 Patient encounter procedure 05/23/2024 12:45 PM EST Office Visit [facility] [address] [place] [address] Bebeto Haq PA [address] [place] [address] [facility] Start: 05-03-2024 End: 05-03-2024 Admission to same day surgery center 05/03/2024 8:58 AM EDT - 05/03/2024 9:06 AM EDT Surgery [facility] [address] [place] [address] Nay Hyde MD [address] [facility] [place] [address] INJECTION BLOCK NERVE MEDIAL BRANCH: bilat L45 51 [28218 (CPT )] [facility] Procedures Comment on above: INJECTION BLOCK NERV E MEDIAL BRANCH: bilat L45 51 [13003 (CPT )] Start: 05-03-2024 End: 05-03-2024 Njx dx/ther agt pvrt facet jt lmbr/sac 1 level INJECTION BLOCK NERVE MEDIAL BRANCH Lumbosacral spondylosis without myelopathy 05/03/2024 8:58 AM EDT [facility] Start: 05-03-2024 Subsequent hospital visit by physician 05/03/2024 8:58 AM EDT Hospital Encounter [facility] [address] [place] [id number] Nay Hyde MD [address], [place] [id number] [facility] Start: 04-06-2024 Urine screening for protein Urine Microalbumin [facility] Start: 03-03-2024 COVID-19 Vaccine ( season) COVID-19 Vaccine ( season) [facility] Start: 03-03-2024 COVID-19 Vaccine ( season) COVID-19 Vaccine ( season) [facility] Start: 03-03-2024 Influenza vaccination Influenza Vacc ine [facility] Start: 2019 Abdominal aortic aneurysm screening Abdominal Aortic Aneurysm (AAA) Screen [facility] Start: 2019 Fall Risk Screening Fall Risk Screen ing [facility] Start: 2004 Administration of varicella zoster vaccine Zoster (Shingles) Vaccine (1 of 2) [facility] Start: 1973 DTaP,Tdap and Td Vaccines (1 - Tdap) DTaP,Tdap and Td Vaccines (1 - Tdap) [facility] Start: 1972 Adult BMI Follow Up Plan Adult BMI Follow Up Plan [facility] Start: 1972 Diabetic foot examination Diabetic Foot Exam [facility] Start: 1966 Depression Screening Depression Scre ening [facility] Start: 1954 Glaucoma screening Diabetic Op hthalmology Exam [facility] Start: 1954 Medicare Annual Well ness Visit Medicare Annual Well[facility] Immunizations Immunization Date Immunization Notes Care Provider Fa ron 04-11-2023 influenza virus vaccine, unspecified formulation Bebeto LEON Work Phone: [facility] 04-19-2021 influenza, injectabl e, quadrivalent, preservative free Bebeto LEON Work Phone: [facility] 05-18-2018 Influenza, injectabl e, Madin Kristina Canine Kidney, preservative free, quadrivalent Bebeto LEON Work Phone: [facility] 05-10-2017 influenza, seasonal, injectable, preservative free Bebeto LEON Work Phone: [facility] 03-25-2015 influenza, seasonal, injectable, preservative free Bebeto LEON Work Phone: [facility] 04-15-2014 influenza, seasonal, injectable Bebeto LEON Work Phone: [facility] Payers Date Payer Category Payer Medicaid [id number] 1992 Medicare [id number] 1959 Medicaid [id number] 1959 Medicare [id number] 1955 Unknown [id number] 2.16.84 0.1.509896.3.579.2.593 1954 Unknown [id number] 2.16.84 0.1.112102.3.579.2.593 1954 Unknown [id number] 2.16.84 0.1.521631.3.579.2.593 1954 Unknown [id number] 2.16.84 0.1.107888.3.579.2.593 1954 Unknown [id number] 2.16.84 0.1.316781.3.579.2.593 1954 Unknown [id number] 2.16.84 0.1.702662.3.579.2.593 1954 Unknown [id number] 2.16.84 0.1.163212.3.579.2.593 1954 Unknown [id number] 2.16. 840.1.483150.3.579.2.1286 1954 Unknown [id number] 2.16.8 40.1.775653.3.579.2.128 1954 Unknown [id number] 2.16.8 40.1.459887.3.579.2.1286 1954 Unknown [id number] 2.16.8 40.1.151449.3.579.2.128 1954 Unknown [id number] 2.16.8 40.1.834507.3.579.2.1286 1954 Unknown [id number] 2.16.8 40.1.779507.3.579.2.1285 1954 Unknown [id number] 2.16.8 40.1.654880.3.579.2.1286 1954 Unknown [id number] 2.16.8 40.1.457539.3.579.2.1285 1954 Unknown [id number] 2.16.8 40.1.915028.3.579.2.128 1954 Unknown [id number] 2.16.8 40.1.206576.3.579.2.1285 1954 Unknown [id number] 2.16.8 40.1.957555.3.579.2.128 1954 Unknown [id number] 2.16.8 40.1.507841.3.579.2.1285 1954 Unknown [id number] 2.16.8 40.1.080525.3.579.2.1286 1954 Unknown [id number] 2.16.8 40.1.104669.3.579.2.1286 1954 Unknown [id number] 2.16.8 40.1.948230.3.579.2.1286 Social History Date Type Detail Facility Start: 01-09-2024 [facility] History of tobacco use Current smoker [facility] History of tobacco use Cigarette Smoker [facility] Start: 01-09-2024 Tobacco use and exposure Smokeless tobacco non-user [facility] Start: 04-09-2024 End: 05-23-2024 Alcoholic beverage intake Current non-drinker of alcohol (finding) [facility] Start: 07-18-2020 End: 04-09-2024 History of Social function [facility] Start: 07-18-2020 End: 04-09-2024 Tobacco use panel [facility] Childcare Unknown [facility] Start: 1955 Sex assigned at Not on file [facility] Start: 02-05-2015 Sex Male (finding) [facility] Medical Equipment Procedure Code Equipment Code Equipment Origin al Text Equipment Identifier Dates Ld Pcng 55cm Rv Sq Scr S Df-4 - [id number] - [id number] Start: 11-20-2018 Lead Capsure Fix Novus 5076-45 - [id number] - [id number] Start: 11-20-2018 Lead Capsure Fix Novus 5076-52 - [id number] - [id number] Start: 07-21-2020 Dfbr Crd Evera M ri Xt - [id number] - [id number] Start: 11-20-2018 Sys Crd Rvl Linq Rpl [id number] - [id number] - [id number] Start: 11-16-2018 Start: 01-20-2018 Goals Date Patient Goal Desired Activity /State Personal health goal Comment on above: Formatting of this n ote might be different from the original. Evaluation of progress towards goal: discharge home with moravian/friends support. Personal health goal Comment on above: [...] & Type Note Facility 07-12-2024 Miscellaneous Notes [facility] 03/08/23 Pt has future appt 07/24/24 documented in this encounter [facility] 07-12-2024 Telephone encounter Note [facility] 03/08/23 Pt has future appt 07/24/24 [facility] 05-23-2024 History of Present illness Narrative [facility] [address] [place] [address] Patient: Radha Quiñones Sex: male : 1955 Age: 69 y.o. PCP: [facility] Nathaniel 05/23/2024 Radha Quiñones is here [...] Past Medical History: Diagnosis Date Angina pectoris ([facility]) Arrhythmia Atrial fibrillation ([facility]) Atrial flutter ([facility]) Atrial flutter ([facility]) Benign prostatic hyperplasia BPH with urinary obstruction Cancer ([facility]) skin cancer Cataract Constipation Coronary artery disease Dental disease no teeth Diabetes mellitus ([facility]) Diabetes mellitus type 2, controlled ([facility]) Hypercholesterolemia Hypertension Myositis Peripheral neuropathy Rash Scalp wound Urinary incontinence Ventricular tachycardia ([facility]) Visual impairment glasses Past Surgical History: Procedure Laterality Date 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; excision and debridement Left 10/29/2021 Performed by Ambrosio Al MD at [facility] AMPUTATION TOE 4TH & 5TH/WIDE INCISIONAL DEBRIDEMENT LEFT DIABETIC FOOT NECROTIZING FASCITIS Left 08/12/2021 Performed by Ambrosio Al MD at [facility] CARDIAC DEFIBRILLATOR PLACEMENT medtronic CATARACT EXTRACTION Coronary angiogram and left ventricular gram/pressure N/A 11/19/2018 Performed by Sage Jay MD at [facility] CARDIAC CATH LABS Coronary fractional flow reserve N/A 11/19/2018 Performed by Sage Jay MD at [facility] CARDIAC CATH LABS CYSTOSCOPY [facility] SOLUTION N/A 10/27/2021 Performed by Frederic Thorne MD at [facility] DC ICD RA lead replace - MDT N/A 07/21/2020 Performed by Yoni Espinoza MD at [facility] (EP) EP - Device DC ICD Left 11/20/2018 Performed by Shayna Betancourt MD at [facility] (EP) EP - Diagnostic-- EP study Right 11/16/2018 Performed by Rafita Garcia MD at [facility] (EP) INJECTION BLOCK NERVE MEDIAL BRANCH: bilat L 4/, 10/31 Bilateral 05/03/2024 Performed by Nay Hyde MD at [facility] Loop recorder implant N/A 11/16/2018 Performed by Rafita Garcia MD at [facility] (EP) Loop recorder removal N/A 07/21/2020 Performed by Yoni Espinoza MD at [facility] (EP) SKIN CANCER EXCISION No [...] Interpersonal Safety: Unknown (08/24/2023) Received from [facility] Fear of Current or [...] Wallis RN 05/23/24 1244 [address] Benavides 05/23/24 1340 documented [facility] this [facility] 05-23-2024 Miscellaneous Notes Last OV 03/08/23. Letter sent to pt 02/23. Attempted to call pt, no VM box set up. Letter sent. Pt will need appointment for future refills. documented in this encounter [facility] 05-23-2024 Telephone encounter Note Last OV 03/08/23. Letter sent to pt 02/23. Attempted to call pt, no VM box set up. Letter sent. Pt will need appointment for future refills. [facility] 04-09-2024 History of Present illness Narrative [facility] [address] [place] [address] Patient: Radha Quiñones Sex: male : 1955 [...] Date Angina pectoris (CMS-HCC) Arrhythmia Atrial fibrillation ([facility]) Atrial flutter ([facility] Atrial flutter ([facility] Benign prostatic hyperplasia BPH with urinary obstruction Cancer ([facility]) skin cancer Cataract Constipation Coronary artery disease Dental disease no teeth Diabetes mellitus ([facility]) Diabetes mellitus type 2, controlled ([facility]) Hypercholesterolemia Hypertension Myositis Peripheral neuropathy Rash Scalp wound Urinary incontinence Ventricular tachycardia ([facility]) Visual impairment glasses Past Surgical History: Procedure Laterality Date 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; excision and debridement Left 10/29/2021 Performed by Ambrosio Al MD at [facility] AMPUTATION TOE 4TH & 5TH/WIDE INCISIONAL DEBRIDEMENT LEFT DIABETIC FOOT NECROTIZING FASCITIS Left 08/12/2021 Performed by Ambrosio Al MD at [facility] CARDIAC DEFIBRILLATOR PLACEMENT medtronic CATARACT EXTRACTION Coronary angiogram and left ventricular gram/pressure N/A 11/19/2018 Performed by Sage Jay MD at [facility] CARDIAC CATH LABS Coronary fractional flow reserve N/A 11/19/2018 Performed by Sage Jay MD at [facility] CARDIAC CATH LABS CYSTOSCOPY [facility] SOLUTION N/A 10/27/2021 Performed by Frederic Thorne MD at [facility] DC ICD RA lead replace - MDT N/A 07/21/2020 Performed by Yoni Espinoza MD at [facility] (EP) EP - Device DC ICD Left 11/20/2018 Performed by Shayna Betancourt MD at [facility] (EP) EP - Diagnostic-- EP study Right 11/16/2018 Performed by Rafita Garcia MD at [facility] (EP) Loop recorder implant N/A 11/16/2018 Performed by Rafita Garcia MD at [facility] (EP) Loop recorder removal N/A 07/21/2020 Performed by Yoni Espinoza MD at [facility] (EP) SKIN CANCER EXCISION No [...] Interpersonal Safety: Unknown (08/24/2023) Received from [facility] Fear of Current or [...] these patients; however, close collaboration with a sql ssis developer or supervisor line department is recommended before initiating the RFN procedure, therefore prior to RFA we will consult with patient's sql ssis developer/supervisor line department for approval and recommendations to proceed with [...] Benavides 04/11/24 1226 documented in this encounter [facility] 04-09-2024 Instructions Chula Bonilla CNA - 04/09/2024 [...] room. documented [facility] this encounter [facility] Note PROCEDURE: XR FOOT L T [...] by: EDILSON DON Date: 2022-08-09 15:44 [facility] Evaluation note Diagnosis Lumbosacral spondylosis without myelopathy- Primary Lumbosacral spondylosis without myelopathy- Primary Lumbosacral spondylosis without myelopathy documented in this encounter [facility] System[facility] note* Diagnosis Enuresis- Primary Functional urinary [...] Paroxysmal ventricular tachycardia documented in this encounter [facility] Diagnosis Enuresis- Primary Functional urinary incontinence BPH (benign prostatic hypertrophy) with urinary obstruction- Primary Hypertrophy of prostate with urinary obstruction and other lower urinary tract symptoms (LUTS) Benign prostatic hyperplasia with urinary obstruction- Primary Urinary retention- Primary Unspecified retention of urine Benign prostatic hyperplasia with urinary obstruction Lumbosacral spondylosis without myelopathy- Primary documented in this encounter [facility]* Diagnosis Enuresis- Primary Functional urinary incontinence BPH (benign prostatic hypertrophy) with urinary obstruction- Primary Hypertrophy of prostate with urinary obstruction and other lower urinary tract symptoms (LUTS) Benign prostatic hyperplasia with urinary obstruction- Primary Urinary retention- Primary Unspecified retention of urine Benign prostatic hyperplasia with urinary obstruction Ventricular tachycardia (CMS-HCC) Paroxysmal ventricular tachycardia Atrial fibrillation with RVR ([facility]) V-tach ([facility]) Paroxysmal ventricular tachycardia documented [facility]ructionsNot on filedocumented in this encounter [facility] SystemInstructionsNot on filedocumented in this encounter [facility] Summary Purpose Family History No Family [...] EDWARD [address] [place] [address] Referral ID Status Reason Start Date Expiration Date V isits Requested Visits Authorized [id number] Pending Review 04/09/2024 04/09/2025 1 1 Additional Source Comments (unrecognized sect ion and content) No Status Records FoundNo Status Records Found INFORMATION SOURCE (unrecogn ized section and content) DATE CREATED AUTHOR 11/16/2022 [facility] DATE CREATED AUTHOR AUTHOR'S ORGANLISSY ATMEI 07/24/2024 [facility] Reason for Visit (unrecogniz ed section and content) Reason Comments Back Pain Reason Comments Med Refill Reason Comments Back Pain Reason Comments Med Change Request Care Teams (unrecognized sec tion and content) Assistant Director Of Nursing Relationship Specialty Start Date End Date Services[address] [place] PCP - General Family Medicine 12/26/23 Assistant Director Of Nursing Relationship Specialty Start Date End Date [place] [address] [place] [place] PCP - General Family Medicine 04/16/24 Assistant Director Of Nursing Relationship Specialty Start Date End Date [address] [place] [address] [place] [place] PCP - General Family Medicine 04/16/24 Assistant Director Of Nursing Relationship Specialty Start Date End Date [address] [place] [address] [place] [place] PCP - General Family Medicine 04/16/24 [...] BE BASED ON THE PRIMARY CLINICAL RECORDS. [facility] [employer] [facility] provides no warranty or guarantee of the accuracy or completeness of information in this document.
== END 2024-08-02 10:11 | disposition home or self-care (01) ==
LOC: WC 10:10
PROVIDERS: Visit Provider Podiatrist Foot & Ankle Surgery
DX: E11.621 Type 2 diabetes mellitus with foot ulcer (principal); L97.421 Non-pressure chronic ulcer of left heel and midfoot limited to breakdown of skin
CPT/HCPCS: G0463

== ENCOUNTER 2024-08-27 10:34 | Outpatient (OUT) | payer MEDICARE, MEDICAID, SELFPAY ==
--- OUTSIDE RECORDS SUMMARY | 2024-08-27 10:56 | XMS_ITS | CCD ---
Author Organization [facility] Care Team Providers Care Registered Art Therapist Name Role Phone MARIANA PHILLIPS Attending Unavailable CARMENANDERMARIANA Admitting Unavailable HIGHLANDER, MARIANA Liu Attending Unavailable HIGHLANDERMARIANA Admitting Unavailable HIGHLANDER, MARIANA Liu Admitting Unavailable HIGHLANDERMARIANA Attending Unavailable SHANTANUCHET Admitting Unavailable SHANTANUCHET Attending Unavailable CARMENANDERMARIANA Admitting Unavailable HIGHLANDER, MARIANA Liu Attending Unavailable MARIANA PHILLIPS Admitting Unavailable ZIEBER, DR EDILSON Jerez Consulting Unavailable HIGHLANDER, MARIANA Liu Attending Unavailable HIGHLANDERMARIANA Consulting Unavailable HIGHLANDERMARIANA Admitting Unavailable HIGHLANDER, MARIANA Liu Consulting Unavailable CARMENANDERMARIANA Attending Unavailable Services, [facility] Primary Care Provider CECY, IZZY Langford Referring Unavailable IZZY SAM Primary Care Unavailable DIVYA GONZALES Attending Unavailable SERVICES, [facility] Primary Care Unava ilable DIVYA GONZALES Attending Unavailable DIVYA GONZALES Referring Unavailable SERVICES, [facility] Primary Care Unava ilable DIVYA GONZALES Attending Unavailable DIVYA GONZALES Referring Unavailable SERVICES, [facility] Primary Care Unava ilable BEBETO HAQ Attending Unavailable JACKIE BARRERA Referring Unavailable SERVICES, [facility] Primary Care Unava ilable BEBETO HAQ Attending Unavailable NAY HYDE Referring Unavailable SERVICES, [facility] Primary Care Unava ilable BEBETO HAQ Attending Unavailable BEBETO HAQ Referring Unavailable SERVICES, [facility] Primary Care Unava ilable BEBETO HAQ Attending Unavailable NAY HYDE Referring Unavailable SERVICES, [facility] Primary Care Unava ilable SERVICES, [facility] Primary Care Unava ilable DIVYA GONZALES Attending Unavailable NAY HYDE Admitting Unavailable NAY HYDE Attending Unavailable NAY HYDE Referring Unavailable NAY HYDE Attending Unavailable NAY HYDE Referring Unavailable SERVICES, [facility] IZZY SAM Referring Unavailable SERVICES, [facility] BEBETO HAQ Attending Unavailable NAY HYDE Referring Unavailable SERVICES, [facility] Unamt ani PHILLIPSMARIANA Referring Unavailable SERVICES, [facility] IZZY SAM Referring Unavailable IZZY SAM Primary Care Unavailable Services, [facility] Primary Care Provider Medications Current Medications Medication Drug Class(es) Dates Sig (Normalized) Sig (Original) 8 hr acetaminophen 650 mg extended release oral tablet (11 sources) take 1 tablet by mouth every [...] / HYDROcodone bitartrate 5 mg oral tablet (10 sources) Opioid Agonist take 1 tablet by mouth every six hours as needed for pain HYDROcodone-acetaminophen (NORCO) 5-325 mg per tablet Take 1 tablet by mouth every 6 (six) hours as needed for pain. Active amiodarone hydrochloride 200 mg oral tablet (10 sources) Antiarrhythmic Start : 03-08 take 1 tablet by mouth in the morning amiodarone (PACERONE) 200 mg tablet Take 1 tablet (200 mg total) by mouth in the morning. 90 tablet 3 03/08/2023 Active aspirin 81 mg delayed release oral tablet (10 sources) Platelet Aggregation Inhibitor, Nonsteroidal Anti-inflammatory Drug take 1 tablet by mouth in the morning aspirin 81 mg Take 1 tablet (81 mg total) by mouth in the morning. Active carisoprodol 350 mg oral tablet (10 sources) Muscle Relaxant Start : 12-27 take 1 tablet by mouth three times daily as needed for muscle spasms carisoprodoL (SOMA) 350 mg tablet Take 1 tablet (350 mg total) by mouth 3 (three) times a day as needed for muscle spasms. 12/28/2023 Active cholecalciferol 0.025 mg oral capsule (20 sources) Vitamin D Start : 11-01 take 1 capsule by mouth in the morning VITAMIN D3 25 mcg (1,000 unit) capsule Take 1 capsule (1,000 Units total) by mouth in the morning. 11/02/2023 Active take 1 tablet by mouth in the mo rning cholecalciferol (VITAMIN D3) 1,000 units tablet Take 1 tablet (1,000 Units total) by mouth in the morning. Active take 1 tablet by mouth in the mo rning cholecalciferol, vitamin D3, 5,000 units tablet Take 1 tablet (5,000 Units total) by mouth in the morning. Active empagliflozin 25 mg oral tablet (10 sources) Sodium-Glucose Cotransporter 2 Inhibitor take 1 tablet by mouth in the morning empagliflozin (JARDIANCE) 25 mg tablet tablet Take 1 tablet (25 mg total) by mouth in the morning. Active sodium hypochlorite 2.5 mg/ml topical solution (10 sources) sodium hypochlor ite (DAKIN'S, HALF-STRENGTH,) 0.25 % external solution Apply 1 Application topically daily as needed for wound care (Use to clean left foot wound as instructed.). Use to clean left foot wound as instructed. Active 3 ml insulin glargine 100 unt/ml pen injector (10 sources) Insulin Analog inject 32 [IU] by subcutaneous injection once daily insulin glargine (LANTUS, BASAGLAR) 100 unit/mL (3 mL) insulin pen Inject 32 Units under the skin nightly. Active inject 32 [IU] by gorman bcutaneous injection in the morning insulin glargine (LANTUS, BASAGLAR) 100 unit/mL (3 mL) insulin pen Inject 32 Units under the skin in the morning. Active lactobacillus acidophilus [id number] unt / pectin 10 mg oral capsule (10 sources) take 1 capsule by mouth once daily at breakfast acidophilus-pectin, citrus 100 million cell-10 mg capsule Take by mouth daily with breakfast. Active magnesium oxide 400 mg oral tablet (10 sources) Start: 021 take 1 tablet by mouth three times daily at mealtime magnesium oxide (MAG-OX) 400 mg tablet Indications: Hypomagnesemia Take 1 tablet (400 mg total) by mouth 3 (three) times a day with meals. 90 tablet 5 06/16/2021 Active 24 hr metFORMIN hydrochloride 500 mg extended release oral tablet (10 sources) Biguanide Start: 018 take 2 tablets by mouth every twenty-four hours in the morning, then take 2 tablets by mouth at bedtime metFORMIN XR (GLUCOPHAGE-XR) 500 mg 24 hr tablet Take 2 tablets (1,000 mg total) by mouth in the morning and 2 tablets (1,000 mg total) before bedtime. 01/23/2018 Active 24 hr metoprolol succinate 100 mg extended release oral tablet (13 sources) beta-Adrenergic Elsi Start: 025 take 1 tablet by mouth every twenty-four [...] MORNING 30 tablet 06/19/2024 07/22/2024 Discontinued Start: 05-23-2024 take 1 tablet by handy th every twenty-four hours in the morning metoprolol succinate XL (TOPROL XL) 100 mg 24 hr tablet Indications: Ventricular tachycardia (CMS-HCC) , Atrial fibrillation with RVR (CMS-HCC) , V-tach (CMS-HCC) TAKE 1 TABLET (100 MG TOTAL) BY MOUTH IN THE MORNING 30 tablet 05/23/2024 Active Start: 03-16-2023 End: 05-23-2024 take 1 tablet by mouth every twenty-four hours in the morning metoprolol succinate XL (TOPROL XL) 100 mg 24 hr tablet Indications: Ventricular tachycardia (CMS-HCC) , Atrial fibrillation with RVR (CMS-HCC) , V-tach (CMS-HCC) TAKE 1 TABLET (100 MG TOTAL) BY MOUTH IN THE MORNING 30 tablet 05/23/2024 Active OZEMPIC 0.25 mg or 0.5 mg (2 mg/3 mL) pen injector (10 sources) Start: 11-28-2023 inject 0.5 mg by subcutaneous injection every week OZEMPIC 0.25 mg or 0.5 mg (2 mg/3 mL) pen injector Inject 0.5 mg under the skin once a week. 11/28/2023 Active pantoprazole 40 mg delayed release oral tablet (10 sources) Proton Pump Inhibitor Start: 08-16-2021 take 1 tablet by mouth once daily before breakfast pantoprazole (PROTONIX) 40 mg EC tablet Take 1 tablet (40 mg total) by mouth every morning before breakfast. 30 tablet 3 08/16/2021 Active rivaroxaban 20 mg oral tablet (11 sources) Factor Xa Inhibitor Start: 05-19-2023 End: 02-21-2024 take 1 tablet by mouth in the morning XARELTO 20 mg tablet tablet Indications: Atrial fibrillation, unspecified type (CMS-HCC) TAKE 1 TABLET (20 MG TOTAL) BY MOUTH IN THE MORNING 90 tablet 1 02/21/2024 Active sertraline 50 mg oral tablet (10 sources) Serotonin Reuptake Inhibitor take 1 tablet by mouth in the morning sertraline (ZOLOFT) 50 mg tablet Take 1 tablet (50 mg total) by mouth in the morning. Active take 1 tablet by mouth in the mo rning sertraline (ZOLOFT) 25 mg tablet Take 1 tablet (25 mg total) by mouth in the morning. Active tamsulosin hydrochloride 0.4 mg oral capsule (10 sources) alpha-Adrenergic Elsi Start: 05-02-2020 take 1 capsule by [...] fibrillation; 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: [Paroxysmal atrial fibrillation] Onset: 11-14-2018 07-12-2024 Chronic Cardiac dysrhythmias (1 source) Bradycardia, unspecified; 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: [BRADYCARDIA UNSPECIFIED] Onset: 08-26-2022 Episodic Chronic ulcer of skin (6 sources) 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 breakdown of skin; 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: [Non-pressure chronic ulcer of left heel and midfoot limited to breakdown of skin] Onset: 08-26-2022 Chronic Conduction disorders (10 sources) Automatic implantable cardiac defibrillator in situ; 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: [Presence of automatic (implantable) cardiac defibrillator] Onset: 12-04-2018 02-19-2019 Chronic Coronary atherosclerosis and other heart disease (20 sources) Coronary atherosclerosis; 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: [Atherosclerotic heart disease of [place] coronary artery without angina pectoris] Onset: 12-04-2018 12-04-2018 Chronic Diabetes mellitus with complications (20 sources) Type 2 diabetes mellitus with other skin ulcer; 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: [Type 2 diabetes mellitus with diabetic nephropathy] Onset: 04-18-2018 Chronic Disorders of lipid metabolism (11 sources) Pure hypercholesterolemia ; 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: [Pure hypercholesterolemia , unspecified] Onset: 12-04-2018 12-04-2018 Chronic E Codes: Fall (1 source) Fall Onset: 04-16-2024 Essential hypertension (11 sources) Essential (primary) hypertension; 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: [Essential hypertension] Onset: 11-17-2021 11-17-2021 Chronic Genitourinary symptoms and ill-defined conditions (10 sources) Functional urinary incontinence; 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: [Functional urinary incontinence] Onset: 08-10-2016 09-07-2016 Chronic Hyperplasia of prostate (20 sources) Benign prostatic hypertrophy with outflow obstruction; [...] caused by tuberculosis or sexually transmitted disease) (10 sources) Osteomyelitis; 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: [Osteomyelitis, unspecified] Onset: 11-17-2021 [...] Episodic Other nutritional; endocrine; and metabolic disorders (10 sources) Hypomagnesemia; 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: [Hypomagnesemia] Onset: 11-17-2021 11-17-2021 [...] Spondylosis; intervertebral disc disorders; other back problems (10 sources) Lumbosacral spondylosis without myelopathy; 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: [Spondylosis without myelopathy or radiculopathy, lumbosacral region] Onset: 02-22-2024 05-03-2024 Chronic Unclassified (1 source) CHRN KIDNEY DISEASE STG 3 UNSP; 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: [CHRN KIDNEY DISEASE STG 3 UNSP] Onset: 09-21-2022 Unclassified (1 source) ems Onset: 12-26-2023 Past or Other Problems Problem Classification Problem Date Documented Date Episodic/Chronic Abdominal pain (1 source) Flank pain Onset: 12-26-2023 Episodic Complications of surgical procedures or medical care (10 sources) Non-healing surgical wound; 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: [Other complications of procedures, not elsewhere classified, initial encounter] Onset: 10-01-2021 10-01-2021 Episodic E Codes: Fall (1 source) Unspecified fall, initial encounter; 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: [Unspecified fall, initial encounter] Onset: 04-16-2024 Episodic Genitourinary symptoms and ill-defined conditions (10 sources) Jordy hematuria; 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: [Gross hematuria] Onset: 09-15-2021 09-15-2021 Episodic Immunizations and screening for infectious disease (1 source) Encounter for screening for other viral diseases; 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: [Encounter for screening for other viral diseases] Onset: 08-02-2023 Episodic Nonspecific chest pain (10 sources) Chest pain; 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: [Chest pain, unspecified] Onset: 11-22-2017 11-22-2017 Episodic Open wounds of head; neck; and trunk (10 sources) Open wound of scalp ; 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: [Unspecified open wound of scalp, initial encounter] Onset: 03-02-2018 03-02-2018 Episodic Other acquired deformities (1 source) Spondylolysis; 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: [Spondylolysis, lumbar region] 01-09-2024 Episodic Other connective tissue disease (10 sources) Myositis; 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: [Myositis, unspecified] Onset: 08-10-2021 08-10-2021 Episodic Other eye disorders (10 sources) Degenerative changes of anterior chamber angle; [...] Radiculopathy, lumbar region; 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: [Backache] Onset: 12-26-2023 02-22-2024 Episodic Results Test Name Value Interpretation Reference Range Facil ity CBC AND AUTO DIFFon 07-22-19 ABSOLUTE BASOPHIL 0.0 X10E9/L Normal 0.0-0.2 [facility] Comment on above: Performed By: #### C BCA, CMP #### [facility] ([id number]) [address] [facility], [place] [address] #### 2857-1, 03996-9, 76899-5, FEPR, 2276-4 #### [facility] ([id number]) [address], [address] [place] [address] ABSOLUTE NEUTROPHIL 3.8 X10E9/L Normal 1.5-6.6 [facility] Comment on above: Performed By: #### C BCA, CMP #### [facility] ([id number]) [address] [place] [address] #### 2857-1, 20383-3, 06950-5, FEPR, 2276-4 #### [facility] ([id number]) [address], [address] [place] [address] Basophils/100 WBC (Bld) 0.8 % Normal [facility] Comment on above: Performed By: #### C BCA, CMP #### [facility] ([id number]) [address] [place] [address] #### 2857-1, 98961-1, 05162-2, FEPR, 2276-4 #### [facility] ([id number]) [address], [address] [place] [address] Eosinophils (Bld) [#/Vol] 0.0 10*3/uL Normal 0.0-0.4 [facility] Comment on above: Performed By: #### C BCA, CMP #### [facility] ([id number]) [address] [place] [address] #### 2857-1, 75810-8, 45716-4, FEPR, 2276-4 #### [facility] ([id number]) [address], [address] [place] [address] Eosinophils/100 WBC (Bld) 0.7 % Normal [facility] Comment on above: Performed By: #### C BCA, CMP #### [facility] ([id number]) [address] [place] [address] #### 2857-1, 70040-4, 68620-7, FEPR, 2276-4 #### [facility] ([id number]) [address], [address] [place] [address] Erythrocyte distribution width (RBC) [Ratio] 14.6 % Normal 11.5-15.0 [facility] Comment on above: Performed By: #### C BCA, CMP #### [facility] ([id number]) [address] [place] [address] #### 2857-1, 65077-8, 54943-1, FEPR, 2276-4 #### [facility] ([id number]) [address], [address] [place] [address] Hematocrit (Bld) [Volume fraction] 42.0 % Normal 39-49 [facility] Comment on above: Performed By: #### C BCA, CMP #### [facility] ([id number]) [address] [place] [address] #### 2857-1, 90789-2, 84217-8, FEPR, 2276-4 #### [facility] ([id number]) [address], [address] [place] [address] Hemoglobin (Bld) [Mass/Vol] 13.9 g/dL Normal 13.0-17.0 [facility] Comment on above: Performed By: #### C BCA, CMP #### [facility] ([id number]) [address] [place] [address] #### 2857-1, 06027-8, 52392-6, FEPR, 2276-4 #### [facility] ([id number]) [address], [facility] [address] [place] [address] Lymphocytes (Bld) [#/Vol] 1.5 10*3/uL Normal 1.0-3.5 [facility] Comment on above: Performed By: #### C BCA, CMP #### [facility] ([id number]) [address] [place] [address] #### 2857-1, 74248-5, 79191-0, FEPR, 2276-4 #### [facility] ([id number]) [address], [address] [place] [address] Lymphocytes/100 WBC (Bld) 24.7 % Normal [facility] Comment on above: Performed By: #### C BCA, CMP #### [facility] ([id number]) [address] [place] [address] #### 2857-1, 28145-7, 94170-7, FEPR, 2276-4 #### [facility] ([id number]) [address] [address], [address] [place] [address] MCH (RBC) [Entitic mass] 30.7 pg Normal 27-34 [facility] Comment on above: Performed By: #### C BCA, CMP #### [facility] ([id number]) [address] [place] [address] #### 2857-1, 80002-5, 84372-6, FEPR, 2276-4 #### [facility] ([id number]) [address] [facility] [address], [address] [place] [address] MCHC (RBC) [Mass/Vol] 33.0 g/dL Normal 32-36 [facility] Comment on above: Performed By: #### C BCA, CMP #### [facility] ([id number]) [address] [place] [address] #### 2857-1, 41154-3, 11667-2, FEPR, 2276-4 #### [facility] ([id number]) [address], [address] [place] [address] MCV (RBC) [Entitic vol] 93 fL Normal 80-100 [facility] Comment on above: Performed By: #### C BCA, CMP #### [facility] ([id number]) [address] [place] [address] #### 2857-1, 20174-4, 17150-8, FEPR, 2276-4 #### [facility] ([id number]) [address], [address] [place] [address] Monocytes (Bld) [#/Vol] 0.6 10*3/uL Normal 0-0.9 [facility] Comment on above: Performed By: #### C GARDENIA, CMP #### [facility] ([id number]) [address] [place] [address] #### 2857-1, 51684-1, 91157-4, FEPR, 2276-4 #### [facility] ([id number]) [address], [address] [place] [address] Monocytes/100 WBC (Bld) 9.7 % Normal [facility] Comment on above: Performed By: #### C GARDENIA, CMP #### [facility] ([id number]) [address] [place] [address] #### 2857-1, 54474-8, 64190-2, FEPR, 2276-4 #### [facility] ([id number]) [address], [address] [place] [address] Neutrophils/100 WBC (Bld) 64.1 % Normal [facility] Comment on above: Performed By: #### C BCA, CMP #### [facility] ([id number]) [address] [place] [address] #### 2857-1, 35133-0, 13939-3, FEPR, 2276-4 #### [facility] ([id number]) [address], [address] [place] [address] Platelet mean volume (Bld) [Entitic vol] 8.2 fL Normal 7-12 [facility] Comment on above: Performed By: #### C BCA, CMP #### [facility] ([id number]) [address] [place] [address] #### 2857-1, 45973-6, 03656-5, FEPR, 2276-4 #### [facility] ([id number]) [address], [address] [place] [address] Platelets (Bld) [#/Vol] 315 10*3/uL Normal 150-450 [facility] Comment on above: Performed By: #### C BCA, CMP #### [facility] ([id number]) [address] [place] [address] #### 2857-1, 45759-5, 67236-9, FEPR, 2276-4 #### [facility] ([id number]) [address] [place] [address] RBC COUNT 4.52 X10E12/L Normal 4.10-5.70 [facility] Comment on above: Performed By: #### C BCA, CMP #### [facility] ([id number]) [address] [place] [address] #### 2857-1, 85482-2, 90843-4, FEPR, 2276-4 #### [facility] ([id number]) [address], [address] [place] [address] WBC (Bld) [#/Vol] 5.9 10*3/uL Normal 4.0-11.0 [facility] Comment on above: Performed By: #### C BCA, CMP #### [facility] ([id number]) [address] [place] [address] #### 2857-1, 56523-7, 22315-2, FEPR, 2276-4 #### [facility] ([id number]) [address], [address] [place] [address] CRP [Mass/Vol]on 07-22-2024 C REACTIVE PROTEIN 1.9 mg/dL High 0.000-0.744 [facility] Comment on above: Performed By: #### C BCA, CMP #### [facility] ([id number]) [address] [place] [address] #### 2857-1, 24373-0, 87421-8, FEPR, 2276-4 #### [facility] ([id number]) [address], [address] [place] [address] ESR Photometric method (Bld) [Velocity]on 07-22-2024 ESR, ERYTHROCYTE SEDIMENTATION RATE 47 mm/h High 0-20 [facility] Comment on above: Performed By: #### C BCA, CMP #### [facility] ([id number]) [address] [place] [address] #### 2857-1, 86218-5, 80955-5, FEPR, 2276-4 #### [facility] ([id number]) [address], [address] [place] [address] HGB A1C (GLYCO-HGB)on 2024 Glucose [Mass/Vol] 203 mg/dL Normal [facility] Comment on above: Performed By: #### C BCA, CMP #### [facility] ([id number]) [address] [place] [address] #### 2857-1, 34863-9, 63299-7, FEPR, 2276-4 #### [facility] ([id number]) [address], [address] [place] [address] HbA1c (Bld) [Mass fraction] 8.7 % High 4.4-5.6 [facility] Comment on above: Result Comment: NOTE ADA Guidelines Result HgbA1c Normal : less than 5.7 % Prediabetes : 5.7 % to 6.4 % Diabetes : > 6.4 % Use with caution in patients with abnormal hemoglobin variants as the half-life of red blood cells and in vivo glycation rates are affected. Performed By: #### C BCA, CMP #### [facility] ([id number]) [address] [place] [address] #### 2857-1, 51480-8, 42322-1, FEPR, 2276-4 #### [facility] ([id number]) [address] [place] [address] COMPREHENSIVE METABOLIC PANE [facility] 05-09-2024 Albumin [Mass/Vol] 4.2 g/dL Normal 3.2-5.3 [facility] Comment on above: Performed By: #### C BCA, CMP #### [facility] ([id number]) [address] [place] [address] #### 2857-1, 25704-7, 96647-9, FEPR, 2276-4 #### [facility] ([id number]) [address] [place] [address] ALP [Catalytic activity/Vol] 46 U/L Normal 39-130 [facility] Comment on above: Performed By: #### C BCA, CMP #### [facility] ([id number]) [address] [place] [address] #### 2857-1, 83046-1, 10700-6, FEPR, 2276-4 #### [facility] ([id number]) [address] [place] [address] ALT [Catalytic activity/Vol] 16 U/L Normal 0-40 [facility] Comment on above: Performed By: #### C BCA, CMP #### [facility] ([id number]) [address] [place] [address] #### 2857-1, 97103-6, 88964-5, FEPR, 2276-4 #### [facility] ([id number]) [address], [address] [place] [address] Anion gap [Moles/Vol] 10 mmol/L Normal 5-15 [facility] Comment on above: Performed By: #### C BCA, CMP #### [facility] ([id number]) [address] [place] [address] #### 2857-1, 87343-7, 76274-7, FEPR, 2276-4 #### [facility] ([id number]) [address], [address] [place] [address] AST [Catalytic activity/Vol] 16 U/L Normal 0-41 [facility] Comment on above: Performed By: #### C BCA, CMP #### [facility] ([id number]) [address] [place] [address] #### 2857-1, 08000-5, 44694-2, FEPR, 2276-4 #### [facility] ([id number]) [address], [address] [place] [address] Bilirubin [Mass/Vol] 0.5 mg/dL Normal 0.3-1.2 [facility] Comment on above: Performed By: #### C BCA, CMP #### [facility] ([id number]) [address] [place] [address] #### 2857-1, 97850-7, 04023-3, FEPR, 2276-4 #### [facility] ([id number]) [address], [address] [place] [address] Calcium [Mass/Vol] 9.3 mg/dL Normal 8.5-10.5 [facility] Comment on above: Performed By: #### C BCA, CMP #### [facility] ([id number]) [address] [place] [address] [address] #### 2857-1, 78074-4, 06722-1, FEPR, 2276-4 #### [facility] ([id number]) [address] [facility], [address] [place] [address] Chloride [Moles/Vol] 99 mmol/L Normal 98-109 [facility] Comment on above: Performed By: #### C BCA, CMP #### [facility] ([id number]) [address] [place] [address] 18505 #### 2857-1, 27704-7, 54736-8, FEPR, 2276-4 #### [facility] ([id number]) [address] [facility], [address] [place] [address] CO2 [Moles/Vol] 26 mmol/L Normal 22-32 [facility] Comment on above: Performed By: #### C BCA, CMP #### [facility] ([id number]) [address] [place] [address] 72060 #### 2857-1, 62479-2, 66377-4, FEPR, 2276-4 #### [facility] ([id number]) [address] [facility], [address] [place] [address] Creatinine [Mass/Vol] 1.27 mg/dL High 0.70-1.20 [facility] Comment on above: Result Comment: METH OD TRACEABLE TO IDMS STANDARD Performed By: #### C BCA, CMP #### [facility] ([id number]) [address] [place] [address] 31269 #### 2857-1, 22344-4, 42804-9, FEPR, 2276-4 #### [facility] ([id number]) [address], [address] [place] [address] GFR/1.73 sq M.predicted among non-blacks MDRD (S/P/Bld) [Vol rate/Area] 61 mL/min/{1.73_m2} Normal >59 [facility] Comment on above: Result Comment: Reported eGFR is based on the CKD-EPI 2020 equation that does not use a race coefficient. Performed By: #### C BCA, CMP #### [facility] ([id number]) [address] [place] [address] 27611 #### 2857-1, 11463-4, 72404-6, FEPR, 6-4 #### [facility] ([id number]) [address], [address] [place] [address] Glucose [Mass/Vol] 177 mg/dL High 65-99 [facility] Comment on above: Performed By: #### C BCA, CMP #### [facility] ([id number]) [address] [place] [address] 82469 #### 2857-1, 56775-0, 84945-7, FEPR, 2276-4 #### [facility] ([id number]) [address], [address] [place] [address] Potassium [Moles/Vol] 4.5 mmol/L Normal 3.5-5.0 [facility] Comment on above: Performed By: #### C BCA, CMP #### [facility] ([id number]) [address] [place] [address] 05272 #### 2857-1, 74618-2, 53945-1, FEPR, 2276-4 #### [facility] ([id number]) [address], [address] [place] [address] Protein [Mass/Vol] 7.6 g/dL Normal 6.0-8.0 [facility] Comment on above: Performed By: #### C BCA, CMP #### [facility] ([id number]) [address] [place] [address] 72783 #### 2857-1, 28653-7, 61031-5, FEPR, 2276-4 #### [facility] ([id number]) [address] [facility], [address] [place] [address] Sodium [Moles/Vol] 135 mmol/L Normal 134-146 [facility] Comment on above: Performed By: #### C BCA, CMP #### [facility] ([id number]) [address] [place] [address] 43563 #### 2857-1, 07651-8, 02772-0, FEPR, 2276-4 #### [facility] ([id number]) [address] [facility], [address] [place] [address] Urea nitrogen [Mass/Vol] 24 mg/dL Normal 5-27 [facility] Comment on above: Performed By: #### C BCA, CMP #### [facility] ([id number]) [address] [place] [address] 07270 #### 2857-1, 82768-7, 38546-8, FEPR, 2276-4 #### [facility] ([id number]) [address] [facility], [address] [place] [address] Lipid 1996 panelon 4 Cholesterol [Mass/Vol] 137 mg/dL Low 150-200 [facility] Comment on above: Performed By: #### C BCA, CMP #### [facility] ([id number]) [address] [place] [address] 43492 #### 2857-1, 56089-7, 01833-8, FEPR, 2276-4 #### [facility] ([id number]) [address], [address] [place] [address] Cholesterol in HDL [Mass/Vol] 32 mg/dL Low >39 [facility] Comment on above: Result Comment: HDL <40 mg/dL - High Risk HDL > or = 40mg/dL- Desirable HDL >60 mg/dL - Negative Risk Performed By: #### C BCA, CMP #### [facility] ([id number]) [address] [place] [address] 80337 #### 2857-1, 02784-9, 41339-7, FEPR, 2276-4 #### [facility] ([id number]) [address] [facility], [address] [place] [address] Cholesterol in LDL [Mass/Vol] 50 mg/dL Normal <130 [facility] Comment on above: Result Comment: LDL <100 mg/dL - Desirable LDL >160 mg/dL - High Risk Performed By: #### C BCA, CMP #### [facility] ([id number]) [address] [place] [address] 77011 #### 2857-1, 72353-8, 10358-0, FEPR, 2276-4 #### [facility] ([id number]) [address], [address] [place] [address] Cholesterol in VLDL [Mass/Vol] 55 mg/dL High 0-30 [facility] Comment on above: Performed By: #### C BCA, CMP #### [facility] ([id number]) [address] [place] [address] 88707 #### 2857-1, 25059-1, 21310-8, FEPR, 2276-4 #### [facility] ([id number]) [address] [place] [address], [address] [place] [address] CHOLESTEROL:HDL 4.3 Normal 1.0-5.0 [facility] Comment on above: Performed By: #### C BCA, CMP #### [facility] ([id number]) [address] [place] [address] 12910 #### 2857-1, 27950-4, 61181-9, FEPR, 2276-4 #### [facility] ([id number]) [address] [place] [address], [address] [address] Triglyceride [Mass/Vol] 275 mg/dL High 27-150 [facility] Comment on above: Performed By: #### C BCA, CMP #### [facility] ([id number]) [address] [place] [address] 40428 #### 2857-1, 95000-2, 30553-0, FEPR, 2276-4 #### [facility] ([id number]) [address] [place] [address], [address] [place] [address] TSH WITH REFLEXon 05-09-2024 TSH 4.67 uIU/mL Normal 0.49-4.67 [facility] Comment on above: Performed By: #### C BCA, CMP #### [facility] ([id number]) [address] [place] [address] 76545 #### 2857-1, 98855-7, 97135-1, FEPR, 2276-4 #### [facility] ([id number]) [address] [place] [address], [address] [place] [address] BASIC METABOLIC PANLon 04-16 Anion gap [Moles/Vol] 10 mmol/L Normal -15 [facility] Comment on above: Performed By: #### C BCA, CMP #### [facility] ([id number]) [address] [place] [address] 12055 #### 2857-1, 16004-7, 56082-2, FEPR, 2276-4 #### [facility] ([id number]) [address], [address] [place] [address] Calcium [Mass/Vol] 9.3 mg/dL Normal 8.5-10.5 [facility] Comment on above: Performed By: #### C BCA, CMP #### [facility] ([id number]) [address] [place] [address] 92596 #### 2857-1, 85982-2, 27643-7, FEPR, 2276-4 #### [facility] ([id number]) [address], [address] [place] [address] Chloride [Moles/Vol] 101 mmol/L Normal 98-109 [facility] Comment on above: Performed By: #### C BCA, CMP #### [facility] ([id number]) [address] [place] [address] 77686 #### 2857-1, 89276-1, 51179-5, FEPR, 2276-4 #### [facility] ([id number]) [address], [address] [place] [address] CO2 [Moles/Vol] 27 mmol/L Normal 22-32 [facility] Comment on above: Performed By: #### C BCA, CMP #### [facility] ([id number]) [address] [place] [address] 13821 #### 2857-1, 52749-5, 42265-2, FEPR, 2276-4 #### [facility] ([id number]) [address], [address] [place] [address] Creatinine [Mass/Vol] 1.19 mg/dL Normal 0.70-1.20 [facility] Comment on above: Result Comment: METH OD TRACEABLE TO IDMS STANDARD Performed By: #### C GARDENIA, CMP #### [facility] ([id number]) [address] [place] [address] 54385 #### 2857-1, 27875-3, 50276-7, FEPR, 2276-4 #### [facility] ([id number]) [address] [facility], [address] [place] [address] GFR/1.73 sq M.predicted among non-blacks MDRD (S/P/Bld) [Vol rate/Area] 66 mL/min/{1.73_m2} Normal >59 [facility] Comment on above: Result Comment: Reported eGFR is based on the CKD-EPI 2020 equation that does not use a race coefficient. Performed By: #### C GARDENIA, CMP #### [facility] ([id number]) [address] [place] [address] 60911 #### 2857-1, 46435-6, 33137-5, FEPR, 2276-4 #### [facility] ([id number]) [facility] [facility], [address] [place] [address] Glucose [Mass/Vol] 165 mg/dL High 65-99 [facility] Comment on above: Performed By: #### C BCA, CMP #### [facility] ([id number]) [address] [place] [address] 92115 #### 2857-1, 61246-8, 91934-4, FEPR, 2276-4 #### [facility] ([id number]) [address] [facility], [address] [place] [address] Potassium [Moles/Vol] 4.2 mmol/L Normal 3.5-5.0 [facility] Comment on above: Performed By: #### C BCA, CMP #### [facility] ([id number]) [address] [place] [address] 13554 #### 2857-1, 13319-2, 18467-4, FEPR, 2276-4 #### [facility] ([id number]) [address], [address] [place] [address] Sodium [Moles/Vol] 138 mmol/L Normal 134-146 [facility] Comment on above: Performed By: #### C BCA, CMP #### [facility] ([id number]) [address] [place] [address] 44150 #### 2857-1, 56119-6, 74144-0, FEPR, 2276-4 #### [facility] ([id number]) [address], [address] [place] [address] Urea nitrogen [Mass/Vol] 17 mg/dL Normal 5-27 [facility] Comment on above: Performed By: #### C BCA, CMP #### [facility] ([id number]) [address] [place] [address] 54815 #### 2857-1, 51072-2, 83149-8, FEPR, 2276-4 #### [facility] ([id number]) [address], [address] [place] [address] CBC AND AUTO DIFFon 10-15-20 24 ABSOLUTE BASOPHIL 0.0 X10E9/L Normal 0.0-0.2 [facility] Comment on above: Performed By: #### C BCA, CMP #### [facility] ([id number]) [address] [place] [address] 49534 #### 2857-1, 65078-9, 49145-7, FEPR, 2276-4 #### [facility] ([id number]) [address], [address] [place] [address] ABSOLUTE NEUTROPHIL 4.0 X10E9/L Normal 1.5-6.6 [facility] Comment on above: Performed By: #### C BCA, CMP #### [facility] ([id number]) [address] [place] [address] 33212 #### 2857-1, 02635-7, 34614-2, FEPR, 2276-4 #### [facility] ([id number]) [address], [address] [place] [address] Basophils/100 WBC (Bld) 0.5 % Normal [facility] Comment on above: Performed By: #### C BCA, CMP #### [facility] ([id number]) [address] [place] [address] 16847 #### 2857-1, 47088-3, 49008-8, FEPR, 2276-4 #### [facility] ([id number]) [address], [address] [place] [address] Eosinophils (Bld) [#/Vol] 0.0 10*3/uL Normal 0.0-0.4 [facility] Comment on above: Performed By: #### C BCA, CMP #### [facility] ([id number]) [address] [place] [address] 57213 #### 2857-1, 51577-5, 59237-0, FEPR, 2276-4 #### [facility] ([id number]) [address], [address] [place] [address] Eosinophils/100 WBC (Bld) 0.4 % Normal [facility] Comment on above: Performed By: #### C BCA, CMP #### [facility] ([id number]) [address] [place] [address] 32782 #### 2857-1, 94786-5, 37471-7, FEPR, 2276-4 #### [facility] ([id number]) [address], [address] [place] [address] Erythrocyte distribution width (RBC) [Ratio] 15.7 % High 11.5-15.0 [facility] Comment on above: Performed By: #### C BCA, CMP #### [facility] ([id number]) [address] [place] [address] 69565 #### 2857-1, 45476-6, 95949-0, FEPR, 2276-4 #### [facility] ([id number]) [address], [address] [place] [address] Hematocrit (Bld) [Volume fraction] 39.9 % Normal 39-49 [facility] Comment on above: Performed By: #### C BCA, CMP #### [facility] ([id number]) [address] [place] [address] 60985 #### 2857-1, 24761-2, 74620-4, FEPR, 2276-4 #### [facility] ([id number]) [address], [address] [place] [address] Hemoglobin (Bld) [Mass/Vol] 13.1 g/dL Normal 13.0-17.0 [facility] Comment on above: Performed By: #### C BCA, CMP #### [facility] ([id number]) [address] [place] [address] 50873 #### 2857-1, 42934-6, 00359-5, FEPR, 2276-4 #### [facility] ([id number]) [address], [address] [place] [address] Lymphocytes (Bld) [#/Vol] 1.1 10*3/uL Normal 1.0-3.5 [facility] Comment on above: Performed By: #### C BCA, CMP #### [facility] ([id number]) [address] [place] [address] 89666 #### 2857-1, 89006-4, 06339-8, FEPR, 2276-4 #### [facility] ([id number]) [address], [address] [place] [address] Lymphocytes/100 WBC (Bld) 18.2 % Normal [facility] Comment on above: Performed By: #### C BCA, CMP #### [facility] ([id number]) [address] [place] [address] 17782 #### 2857-1, 28432-6, 73570-2, FEPR, 2276-4 #### [facility] ([id number]) [address] [facility], [address] [place] [address] MCH (RBC) [Entitic mass] 30.6 pg Normal 27-34 [facility] Comment on above: Performed By: #### C BCA, CMP #### [facility] ([id number]) [address] [place] [address] 30316 #### 2857-1, 86583-7, 22028-7, FEPR, 2276-4 #### [facility] ([id number]) [address] [facility], [address] [place] [address] MCHC (RBC) [Mass/Vol] 32.8 g/dL Normal 32-36 [facility] Comment on above: Performed By: #### C BCA, CMP #### [facility] ([id number]) [address] [place] [address] 05767 #### 2857-1, 69841-2, 57479-3, FEPR, 2276-4 #### [facility] ([id number]) [address], [address] [place] [address] MCV (RBC) [Entitic vol] 93 fL Normal 80-100 [facility] Comment on above: Performed By: #### C BCA, CMP #### [facility] ([id number]) [address] [place] [address] 05645 #### 2857-1, 45997-0, 05256-1, FEPR, 2276-4 #### [facility] ([id number]) [address], [address] [place] [address] Monocytes (Bld) [#/Vol] 0.8 10*3/uL Normal 0-0.9 [facility] Comment on above: Performed By: #### C BCA, CMP #### [facility] ([id number]) [address] [place] [address] 37240 #### 2857-1, 40351-9, 33631-6, FEPR, 2276-4 #### [facility] ([id number]) [address], [address] [place] [address] Monocytes/100 WBC (Bld) 13.5 % Normal [facility] Comment on above: Performed By: #### C BCA, CMP #### [facility] ([id number]) [address] [place] [address] 78505 #### 2857-1, 93943-1, 84741-8, FEPR, 2276-4 #### [facility] ([id number]) [address], [address] [place] [address] Neutrophils/100 WBC (Bld) 67.4 % Normal [facility] Comment on above: Performed By: #### C BCA, CMP #### [facility] ([id number]) [address] [place] [address] 33052 #### 2857-1, 80120-7, 54817-4, FEPR, 2276-4 #### [facility] ([id number]) [address], [address] [place] [address] Platelet mean volume (Bld) [Entitic vol] 7.4 fL Normal 7-12 [facility] Comment on above: Performed By: #### C BCA, CMP #### [facility] ([id number]) [address] [place] [address] 49917 #### 2857-1, 67773-1, 53606-3, FEPR, 2276-4 #### [facility] ([id number]) [address], [address] [place] [address] Platelets (Bld) [#/Vol] 284 10*3/uL Normal 150-450 [facility] Comment on above: Performed By: #### C BCA, CMP #### [facility] ([id number]) [address] [place] [address] 07603 #### 2857-1, 52469-7, 84050-9, FEPR, 2276-4 #### [facility] ([id number]) [address] [facility], [address] [place] [address] RBC COUNT 4.27 X10E12/L Normal 4.10-5.70 [facility] Comment on above: Performed By: #### C BCA, CMP #### [facility] ([id number]) [address] [place] [address] 95718 #### 2857-1, 00947-3, 79094-2, FEPR, 2276-4 #### [facility] ([id number]) [address] [facility], [address] [place] [address] WBC (Bld) [#/Vol] 5.9 10*3/uL Normal 4.0-11.0 [facility] Comment on above: Performed By: #### C BCA, CMP #### [facility] ([id number]) [address] [place] [address] 31767 #### 2857-1, 91779-3, 39858-3, FEPR, 2276-4 #### [facility] ([id number]) [address] [facility], [address] [place] [address] CT BRAIN WO CONTon CT BRAIN WO [...] DO on 04/16/2024 2:16 PM Normal [facility] CT CERVICAL SPINE WO CONTon 04-16-2024 [...] DO on 04/16/2024 2:24 PM Normal [facility] CT FACIAL BONES WO CONTon CT [...] Lau on 04/16/2024 2:30 PM Normal [facility] PROTIME AND INRon 04-16-2024 INR Coag (PPP) [Relative time] 2.1 {INR} High 0.8-1.1 [facility] Comment on above: Performed By: #### C GARDENIA, CMP #### [facility] ([id number]) [address] [place] [address] 49367 #### 2857-1, 76550-1, 21601-1, FEPR, 2276-4 #### [facility] ([id number]) [address] [facility], [address] [place] [address] 46477 PT Coag (PPP) [Time] 23.7 s High 9.8-13.2 [facility] Comment on above: Result Comment: NEW REFERENCE RANGE Performed By: #### C BCA, CMP #### [facility] ([id number]) [address] [place] [address] 75045 #### 2857-1, 41579-3, 13094-4, FEPR, 2276-4 #### [facility] ([id number]) [address] [facility], [address] [place] [address] aPTT Coag (PPP) [Time]on aPTT Coag (Bld) [Time] 48 s High 26-37 [facility] Comment on above: Result Comment: NEW REFERENCE RANGE Performed By: #### C BCA, CMP #### [facility] ([id number]) [address] [facility] [place] [address] #### 2857-1, 20790-5, 24569-6, FEPR, 2276-4 #### [facility] ([id number]) [address] [facility], [address] [place] [address] MR LUMBAR SPINE WO CONTon MR LUMBAR [...] MD on 04/01/2024 10:47 PM Normal [facility] XR HIP LT 2-3 VIEWS W [...] MD on 12/26/2023 10:07 AM Normal [facility] XR SPINE LUMBAR 2 OR 3 [...] MD on 12/26/2023 10:10 AM Normal [facility] CBC AND AUTO DIFFon 09-22-19 ABSOLUTE BASOPHIL 0.0 X10E9/L Normal 0.0-0.2 [facility] Comment on above: Performed By: #### C BCA, CMP, THYR #### [facility] ([id number]) [address] [place] [address] 23550 #### 2857-1, 46452-8, 95255-3 #### [facility] ([id number]) [address] [place] [address], [address] [place] [address] 20529 ABSOLUTE NEUTROPHIL 4.3 X10E9/L Normal 1.5-6.6 [facility] Comment on above: Performed By: #### C BCA, CMP, THYR #### [facility] ([id number]) [address] [place] [address] 53752 #### 2857-1, 89127-9, 06835-4 #### [facility] ([id number]) [address] [place] [address], [address] [place] [address] Basophils/100 WBC (Bld) 0.5 % Normal [facility] Comment on above: Performed By: #### C BCA, CMP, THYR #### [facility] ([id number]) [address] [place] [address] 87124 #### 2857-1, 62660-9, 65642-2 #### [facility] ([id number]) [address] [facility], [address] [place] [address] Eosinophils (Bld) [#/Vol] 0.0 10*3/uL Normal 0.0-0.4 [facility] Comment on above: Performed By: #### C BCA, CMP, THYR #### [facility] ([id number]) [address] [place] [address] 65209 #### 2857-1, 64645-3, 85424-9 #### [facility] ([id number]) [address], [address] [place] [address] Eosinophils/100 WBC (Bld) 0.7 % Normal [facility] Comment on above: Performed By: #### C BCA, CMP, THYR #### [facility] ([id number]) [address] [place] [address] #### 2857-1, 83481-3, 98630-7 #### [facility] ([id number]) [address], [address] [place] [address] Erythrocyte distribution width (RBC) [Ratio] 15.8 % High 11.5-15.0 [facility] Comment on above: Performed By: #### C BCA, CMP, THYR #### [facility] ([id number]) [address] [place] [address] #### 2857-1, 77137-5, 39314-7 #### [facility] ([id number]) [address], [address] [place] [address] Hematocrit (Bld) [Volume fraction] 39.8 % Normal 39-49 [facility] Comment on above: Performed By: #### C BCA, CMP, THYR #### [facility] ([id number]) [address] [place] [address] #### 2857-1, 44003-2, 54506-8 #### [facility] ([id number]) [address], [address] [place] [address] Hemoglobin (Bld) [Mass/Vol] 13.2 g/dL Normal 13.0-17.0 [facility] Comment on above: Performed By: #### C BCA, CMP, THYR #### [facility] ([id number]) [address] [place] [address] #### 2857-1, 75612-3, 37774-5 #### [facility] ([id number]) [address], [address] [place] [address] Lymphocytes (Bld) [#/Vol] 1.1 10*3/uL Normal 1.0-3.5 [facility] Comment on above: Performed By: #### C BCA, CMP, THYR #### [facility] ([id number]) [address] [place] [address] #### 2857-1, 29128-5, 74790-8 #### [facility] ([id number]) [address], [address] [place] [address] Lymphocytes/100 WBC (Bld) 17.7 % Normal [facility] Comment on above: Performed By: #### C BCA, CMP, THYR #### [facility] ([id number]) [address] [place] [address] #### 2857-1, 92400-8, 68021-6 #### [facility] ([id number]) [address], [address] [place] [address] MCH (RBC) [Entitic mass] 29.8 pg Normal 27-34 [facility] Comment on above: Performed By: #### C BCA, CMP, THYR #### [facility] ([id number]) [address] [place] [address] #### 2857-1, 28989-9, 45129-1 #### [facility] ([id number]) [address], [address] [place] [address] MCHC (RBC) [Mass/Vol] 33.1 g/dL Normal 32-36 [facility] Comment on above: Performed By: #### C BCA, CMP, THYR #### [facility] ([id number]) [address] [place] [address] #### 2857-1, 93641-5, 63739-3 #### [facility] ([id number]) [address], [address] [place] [address] MCV (RBC) [Entitic vol] 90 fL Normal 80-100 [facility] Comment on above: Performed By: #### C BCA, CMP, THYR #### [facility] ([id number]) [address] [place] [address] #### 2857-1, 17492-8, 47383-5 #### [facility] ([id number]) [address], [address] [place] [address] Monocytes (Bld) [#/Vol] 0.8 10*3/uL Normal 0-0.9 [facility] Comment on above: Performed By: #### C BCA, CMP, THYR #### [facility] ([id number]) [address] [place] [address] 77071 #### 2857-1, 65873-6, 03244-0 #### [facility] ([id number]) [address], [address] [place] [address] Monocytes/100 WBC (Bld) 12.8 % Normal [facility] Comment on above: Performed By: #### C BCA, CMP, THYR #### [facility] ([id number]) [address] [place] [address] 91319 #### 2857-1, 81908-1, 75263-9 #### [facility] ([id number]) [address], [address] [place] [address] Neutrophils/100 WBC (Bld) 68.3 % Normal [facility] Comment on above: Performed By: #### C BCA, CMP, THYR #### [facility] ([id number]) [address] [place] [address]15 #### 2857-1, 70904-4, 35371-3 #### [facility] ([id number]) [address], [address] [place] [address] Platelet mean volume (Bld) [Entitic vol] 7.8 fL Normal 7-12 [facility] Comment on above: Performed By: #### C BCA, CMP, THYR #### [facility] ([id number]) [address] [place] [address] 03432 #### 2857-1, 97381-5, 25510-3 #### [facility] ([id number]) [address], [address] [place] [address] Platelets (Bld) [#/Vol] 259 10*3/uL Normal 150-450 [facility] Comment on above: Performed By: #### C BCA, CMP, THYR #### [facility] ([id number]) [address] [place] [address] 67563 #### 2857-1, 23589-4, 94134-4 #### [facility] ([id number]) [address], [address] [place] [address] RBC COUNT 4.42 X10E12/L Normal 4.10-5.70 [facility] Comment on above: Performed By: #### C BCA, CMP, THYR #### [facility] ([id number]) [address] [place] [address] 17961 #### 2857-1, 31850-2, 35140-3 #### [facility] ([id number]) [address], [address] [place] [address] WBC (Bld) [#/Vol] 6.2 10*3/uL Normal 4.0-11.0 [facility] Comment on above: Performed By: #### C BCA, CMP, THYR #### [facility] ([id number]) [address] [place] [address] 98577 #### 2857-1, 81768-2, 60527-0 #### [facility] ([id number]) [address], [address] [place] [address] COMPREHENSIVE METABOLIC PANE Alex 09-22-2023 Albumin [Mass/Vol] 4.2 g/dL Normal 3.2-5.3 [facility] Comment on above: Performed By: #### C BCA, CMP, THYR #### [facility] ([id number]) [address] [place] [address] 08706 #### 2857-1, 34419-9, 01556-3 #### [facility] ([id number]) [address], [address] [place] [address] ALP [Catalytic activity/Vol] 41 U/L Normal 39-130 [facility] Comment on above: Performed By: #### C BCA, CMP, THYR #### [facility] ([id number]) [address] [place] [address] 47377 #### 2857-1, 63911-1, 11005-0 #### [facility] ([id number]) [address], [address] [place] [address] ALT [Catalytic activity/Vol] 17 U/L Normal 0-40 [facility] Comment on above: Performed By: #### C BCA, CMP, THYR #### [facility] ([id number]) [address] [place] [address] 91666 #### 2857-1, 17541-1, 07636-8 #### [facility] ([id number]) [address], [address] [place] [address] Anion gap [Moles/Vol] 6 mmol/L Normal 5-15 [facility] Comment on above: Performed By: #### C BCA, CMP, THYR #### [facility] ([id number]) [address] [place] [address] 00291 #### 2857-1, 31842-8, 66957-1 #### [facility] ([id number]) [address], [address] [place] [address] AST [Catalytic activity/Vol] 20 U/L Normal 0-41 [facility] Comment on above: Performed By: #### C BCA, CMP, THYR #### [facility] ([id number]) [address] [place] [address] 65857 #### 2857-1, 97805-0, 33112-3 #### [facility] ([id number]) [address], [address] [place] [address] Bilirubin [Mass/Vol] 0.4 mg/dL Normal 0.3-1.2 [facility] Comment on above: Performed By: #### C BCA, CMP, THYR #### [facility] ([id number]) [address] [place] [address] 86061 #### 2857-1, 33649-8, 14367-9 #### [facility] ([id number]) [address], [address] [place] [address] Calcium [Mass/Vol] 9.3 mg/dL Normal 8.5-10.5 [facility] Comment on above: Performed By: #### C BCA, CMP, THYR #### [facility] ([id number]) [address] [place] [address] 26897 #### 2857-1, 35448-6, 54103-0 #### [facility] ([id number]) [address] [facility] [address], [address] [place] [address] Chloride [Moles/Vol] 103 mmol/L Normal 98-109 [facility] Comment on above: Performed By: #### C BCA, CMP, THYR #### [facility] ([id number]) [address] [place] [address] 44594 #### 2857-1, 90805-1, 92727-4 #### [facility] ([id number]) [address] [facility], [address] [place] [address] CO2 [Moles/Vol] 27 mmol/L Normal 22-32 [facility] Comment on above: Performed By: #### C BCA, CMP, THYR #### [facility] ([id number]) [address] [place] [address] 71029 #### 2857-1, 87161-7, 07528-2 #### [facility] ([id number]) [address] [facility], [address] [place] [address] Creatinine [Mass/Vol] 1.12 mg/dL Normal 0.70-1.20 [facility] Comment on above: Result Comment: METH OD TRACEABLE TO IDMS STANDARD Performed By: #### C BCA, CMP, THYR #### [facility] ([id number]) [address] [place] [address] 83346 #### 2857-1, 79563-7, 80866-2 #### [facility] ([id number]) [address] [facility], [address] [place] [address] GFR/1.73 sq M.predicted among non-blacks MDRD (S/P/Bld) [Vol rate/Area] 71 mL/min/{1.73_m2} Normal >59 [facility] Comment on above: Result Comment: Reported eGFR is based on the CKD-EPI 2021 equation that does not use a race coefficient. Performed By: #### C BCA, CMP, THYR #### [facility] ([id number]) [address] [place] [address] 92490 #### 2857-1, 16223-2, 68598-9 #### [facility] ([id number]) [address], [address] [place] [address] Glucose [Mass/Vol] 178 mg/dL High 65-99 [facility] Comment on above: Performed By: #### C BCA, CMP, THYR #### [facility] ([id number]) [address] [place] [address] 26251 #### 2857-1, 61532-2, 32756-4 #### [facility] ([id number]) [address], [address] [place] [address] Potassium [Moles/Vol] 4.6 mmol/L Normal 3.5-5.0 [facility] Comment on above: Performed By: #### C BCA, CMP, THYR #### [facility] ([id number]) [address] [place] [address] 08012 #### 2857-1, 79045-3, 88207-8 #### [facility] ([id number]) [address], [address] [place] [address] Protein [Mass/Vol] 7.8 g/dL Normal 6.0-8.0 [facility] Comment on above: Performed By: #### C BCA, CMP, THYR #### [facility] ([id number]) [address] [place] [address] 82079 #### 2857-1, 01145-9, 42682-5 #### [facility] ([id number]) [address], [address] [place] [address] Sodium [Moles/Vol] 136 mmol/L Normal 134-146 [facility] Comment on above: Performed By: #### C BCA, CMP, THYR #### [facility] ([id number]) [address] [place] [address] 97227 #### 2857-1, 50528-8, 12175-3 #### [facility] ([id number]) [address] [facility], [address] [place] [address] Urea nitrogen [Mass/Vol] 18 mg/dL Normal 5-27 [facility] Comment on above: Performed By: #### C BCA, CMP, THYR #### [facility] ([id number]) [address] [place] [address] 45591 #### 2857-1, 51345-9, 67830-0 #### [facility] ([id number]) [address] [facility], [address] [place] [address] HCV Ab IA Qlon 09-22-2023 ANTI HCV W/PCR REFLX Non-Reactive Normal NRCT [facility] Comment on above: Result Comment: If recent infection suspected, recommend repeat testing (>2 months). Jkvoya-nj-yccqsg ratio is <0.80. Performed By: #### C BCA, CMP #### [facility] ([id number]) [address] [place] [address] 19371 #### 2857-1, 70916-2, 11952-4, FEPR, 2276-4 #### [facility] ([id number]) [address] [facility], [address] [place] [address] HGB A1C (GLYCO-HGB)on 2023 Glucose [Mass/Vol] 180 mg/dL Normal [facility] Comment on above: Performed By: #### C BCA, CMP #### [facility] ([id number]) [address] [place] [address] 95991 #### 2857-1, 39886-5, 94609-8, FEPR, 2276-4 #### [facility] ([id number]) [address], [address] [address] HbA1c (Bld) [Mass fraction] 7.9 % High 4.4-5.6 [facility] Comment on above: Result Comment: NOTE ADA Guidelines Result HgbA1c Normal : less than 5.7 % Prediabetes : 5.7 % to 6.4 % Diabetes : > 6.4 % Use with caution in patients with abnormal hemoglobin variants as the half-life of red blood cells and in vivo glycation rates are affected. Performed By: #### C GARDENIA, CMP #### [facility] ([id number]) [address] [place] [address] 53259 #### 2857-1, 33787-2, 77257-7, FEPR, 2276-4 #### [facility] ([id number]) [address], [address] [address] Prostate specific Ag [Mass/V ol]on 09-22-2023 PSA SCREEN 0.89 ng/mL Normal 0.00-4.00 [facility] Comment on above: Result Comment: The method used for this test is Louis Irving DXI chemiluminescent immunoassay. Values obtained by different assay methods cannot be used interchangeably. Performed By: #### C BCA, CMP #### [facility] ([id number]) [address] [place] [address] 64645 #### 2857-1, 11664-3, 86728-8, FEPR, 2276-4 #### [facility] ([id number]) [address], [address] [place] [address] THYROID PROFILEon 09-22-2023 Free T4 [Mass/Vol] 1.03 ng/dL Normal 0.61-1.60 [facility] Comment on above: Performed By: #### C BCA, CMP #### [facility] ([id number]) [address] [place] [address] 31235 #### 2857-1, 05898-6, 30932-6, FEPR, 2276-4 #### [facility] ([id number]) [address] [facility], [address] [place] [address] TSH 4.47 uIU/mL Normal 0.49-4.67 [facility] Comment on above: Performed By: #### C BCA, CMP #### [facility] ([id number]) [address] [place] [address] 71514 #### 2857-1, 86288-7, 21473-8, FEPR, 2276-4 #### [facility] ([id number]) [address] [facility], [address] [address] Vitamin D+Metabolites [Mass/ Vol]on 09-22-2023 VITAMIN D 25 HYD TOT 23.7 ng/mL Low 30-100 [facility] Comment on above: Result Comment: Vitamin D status 25 [place] Vitamin D Deficiency <20 ng/mL Insufficiency 20-29 ng/mL Sufficiency 30-100 ng/mL Toxicity >100 ng/mL NOTE: A pediatric reference range has not been established by the refinery operator alkylation of this kit. The [place] [employer] recommends a Vitamin D level of = or >20ng/mL in infants and children. Performed By: #### C BCA, CMP #### [facility] ([id number]) [address] [place] [address] 98816 #### 2857-1, 30903-7, 68790-5, FEPR, 2276-4 #### [facility] ([id number]) [address] [facility], [address] [place] [address] CBC AND AUTO DIFFon 08-02-19 ABSOLUTE BASOPHIL 0.0 X10E9/L Normal 0.0-0.2 [facility] Comment on above: Performed By: #### C BCA, CMP #### [facility] ([id number]) [address] [place] [address] 66397 #### 2857-1, 65079-5, 94884-1, FEPR, 2276-4 #### [facility] ([id number]) [address], [address] [place] [address] ABSOLUTE NEUTROPHIL 4.4 X10E9/L Normal 1.5-6.6 [facility] Comment on above: Performed By: #### C BCA, CMP #### [facility] ([id number]) [address] [place] [address] 13116 #### 2857-1, 24272-6, 27496-7, FEPR, 2276-4 #### [facility] ([id number]) [address], [address] [place] [address] Basophils/100 WBC (Bld) 0.5 % Normal [facility] Comment on above: Performed By: #### C BCA, CMP #### [facility] ([id number]) [address] [place] [address] 02443 #### 2857-1, 33368-1, 01518-9, FEPR, 2276-4 #### [facility] ([id number]) [address], [address] [place] [address] Eosinophils (Bld) [#/Vol] 0.1 10*3/uL Normal 0.0-0.4 [facility] Comment on above: Performed By: #### C BCA, CMP #### [facility] ([id number]) [address] [place] [address] 85983 #### 2857-1, 35891-9, 89621-6, FEPR, 2276-4 #### [facility] ([id number]) [address], [address] [place] [address] Eosinophils/100 WBC (Bld) 0.9 % Normal [facility] Comment on above: Performed By: #### C BCA, CMP #### [facility] ([id number]) [address] [place] [address] 60479 #### 2857-1, 89763-6, 70446-6, FEPR, 2276-4 #### [facility] ([id number]) [address] [address] Erythrocyte distribution width (RBC) [Ratio] 15.7 % High 11.5-15.0 [facility] Comment on above: Performed By: #### C BCA, CMP #### [facility] ([id number]) [address] [place] [address] 03170 #### 2857-1, 47707-1, 37848-2, FEPR, 2276-4 #### [facility] ([id number]) [address] [facility], [address] [address] Hematocrit (Bld) [Volume fraction] 38.3 % Low 39-49 [facility] Comment on above: Performed By: #### C BCA, CMP #### [facility] ([id number]) [address] [place] [address] 64833 #### 2857-1, 07318-4, 99818-9, FEPR, 2276-4 #### [facility] ([id number]) [address] [facility], [facility] [address] [place] [address] Hemoglobin (Bld) [Mass/Vol] 12.5 g/dL Low 13.0-17.0 [facility] Comment on above: Performed By: #### C BCA, CMP #### [facility] ([id number]) [address] [place] [address] 57921 #### 2857-1, 29242-4, 92969-3, FEPR, 2276-4 #### [facility] ([id number]) [address], [address] [place] [address] Lymphocytes (Bld) [#/Vol] 1.2 10*3/uL Normal 1.0-3.5 [facility] Comment on above: Performed By: #### C BCA, CMP #### [facility] ([id number]) [address] [place] [address] 36696 #### 2857-1, 39387-6, 19167-2, FEPR, 2276-4 #### [facility] ([id number]) [address] [facility], [address] [place] [address] Lymphocytes/100 WBC (Bld) 18.4 % Normal [facility] Comment on above: Performed By: #### C BCA, CMP #### [facility] ([id number]) [address] [place] [address] 24228 #### 2857-1, 22305-3, 83493-6, FEPR, 2276-4 #### [facility] ([id number]) [address], [address] [place] [address] MCH (RBC) [Entitic mass] 29.1 pg Normal 27-34 [facility] Comment on above: Performed By: #### C BCA, CMP #### [facility] ([id number]) [address] [place] [address] 00599 #### 2857-1, 12950-4, 55913-0, FEPR, 2276-4 #### [facility] ([id number]) [address], [address] [place] [address] MCHC (RBC) [Mass/Vol] 32.7 g/dL Normal 32-36 [facility] Comment on above: Performed By: #### C BCA, CMP #### [facility] ([id number]) [address] [place] [address] 62533 #### 2857-1, 36219-1, 11851-9, FEPR, 2276-4 #### [facility] ([id number]) [address], [address] [place] [address] MCV (RBC) [Entitic vol] 89 fL Normal 80-100 [facility] Comment on above: Performed By: #### C BCA, CMP #### [facility] ([id number]) [address] [place] [address] 60511 #### 2857-1, 41546-2, 64189-7, FEPR, 2276-4 #### [facility] ([id number]) [address], [address] [place] [address] Monocytes (Bld) [#/Vol] 1.0 10*3/uL High 0-0.9 [facility] Comment on above: Performed By: #### C BCA, CMP #### [facility] ([id number]) [address] [place] [address] 50634 #### 2857-1, 50498-3, 18815-4, FEPR, 2276-4 #### [facility] ([id number]) [address], [address] [place] [address] Monocytes/100 WBC (Bld) 14.3 % Normal [facility] Comment on above: Performed By: #### C BCA, CMP #### [facility] ([id number]) [address] [place] [address] 12735 #### 2857-1, 42992-5, 79306-9, FEPR, 2276-4 #### [facility] ([id number]) [address], [address] [place] [address] Neutrophils/100 WBC (Bld) 65.9 % Normal [facility] Comment on above: Performed By: #### C GARDENIA, CMP #### [facility] ([id number]) [address] [place] [address] 94905 #### 2857-1, 46256-3, 20546-7, FEPR, 2276-4 #### [facility] ([id number]) [address], [address] [place] [address] Platelet mean volume (Bld) [Entitic vol] 8.3 fL Normal 7-12 [facility] Comment on above: Performed By: #### C GARDENIA, CMP #### [facility] ([id number]) [address] [place] [address] 97669 #### 2857-1, 51360-7, 16795-4, FEPR, 2276-4 #### [facility] ([id number]) [address], [address] [place] [address] Platelets (Bld) [#/Vol] 271 10*3/uL Normal 150-450 [facility] Comment on above: Performed By: #### Jerry VARNER, CMP #### [facility] ([id number]) [address] [place] [address]10 #### 2857-1, 50331-5, 70941-9, FEPR, 2276-4 #### [facility] ([id number]) [address], [address] [place] [address] RBC COUNT 4.31 X10E12/L Normal 4.10-5.70 [facility] Comment on above: Performed By: #### C BCA, CMP #### [facility] ([id number]) [address] [place] [address] 67600 #### 2857-1, 24891-3, 79327-3, FEPR, 2276-4 #### [facility] ([id number]) [address], [address] [place] [address] WBC (Bld) [#/Vol] 6.7 10*3/uL Normal 4.0-11.0 [facility] Comment on above: Performed By: #### C BCA, CMP #### [facility] ([id number]) [address] [place] [address] 58766 #### 2857-1, 61186-3, 21060-6, FEPR, 2276-4 #### [facility] ([id number]) [address] [facility], [address] [place] [address] COMPREHENSIVE METABOLIC PANE Alex 08-02-2023 Albumin [Mass/Vol] 3.8 g/dL Normal 3.2-5.3 [facility] Comment on above: Performed By: #### C BCA, CMP #### [facility] ([id number]) [address] [place] [address] 25491 #### 2857-1, 72320-6, 63400-2, FEPR, 2276-4 #### [facility] ([id number]) [address] [facility], [address] [place] [address] ALP [Catalytic activity/Vol] 48 U/L Normal 39-130 [facility] Comment on above: Performed By: #### C BCA, CMP #### [facility] ([id number]) [address] [place] [address] 87803 #### 2857-1, 00548-4, 85724-8, FEPR, 2276-4 #### [facility] ([id number]) [address], [address] [place] [address] ALT [Catalytic activity/Vol] 18 U/L Normal 0-40 [facility] Comment on above: Performed By: #### C BCA, CMP #### [facility] ([id number]) [address] [place] [address] 25734 #### 2857-1, 17376-6, 56157-5, FEPR, 2276-4 #### [facility] ([id number]) [address] [place] [address] Anion gap [Moles/Vol] 9 mmol/L Normal 5-15 [facility] Comment on above: Performed By: #### C BCA, CMP #### [facility] ([id number]) [address] [place] [address] 65474 #### 2857-1, 49386-6, 96514-3, FEPR, 2276-4 #### [facility] ([id number]) [address], [address] [place] [address] AST [Catalytic activity/Vol] 24 U/L Normal 0-41 [facility] Comment on above: Performed By: #### C BCA, CMP #### [facility] ([id number]) [address] [place] [address] #### 2857-1, 24051-9, 57961-2, FEPR, 2276-4 #### [facility] ([id number]) [address], [address] [place] [address] Bilirubin [Mass/Vol] 0.6 mg/dL Normal 0.3-1.2 [facility] Comment on above: Performed By: #### C BCA, CMP #### [facility] ([id number]) [address] [place] [address] #### 2857-1, 21928-9, 05093-9, FEPR, 2276-4 #### [facility] ([id number]) [address], [address] [place] [address] Calcium [Mass/Vol] 9.0 mg/dL Normal 8.5-10.5 [facility] Comment on above: Performed By: #### C BCA, CMP #### [facility] ([id number]) [address] [place] [address] #### 2857-1, 45278-5, 48903-8, FEPR, 2276-4 #### [facility] ([id number]) [address], [address] [place] [address] Chloride [Moles/Vol] 98 mmol/L Normal 98-109 [facility] Comment on above: Performed By: #### C BCA, CMP #### [facility] ([id number]) [address] [place] [address] #### 2857-1, 88754-2, 39316-0, FEPR, 2276-4 #### [facility] ([id number]) [address], [address] [place] [address] CO2 [Moles/Vol] 28 mmol/L Normal 22-32 [facility] Comment on above: Performed By: #### C BCA, CMP #### [facility] ([id number]) [address] [place] [address] #### 2857-1, 13926-3, 04287-1, FEPR, 2276-4 #### [facility] ([id number]) [address], [address] [place] [address] Creatinine [Mass/Vol] 0.93 mg/dL Normal 0.70-1.20 [facility] Comment on above: Result Comment: METH OD TRACEABLE TO IDMS STANDARD Performed By: #### C BCA, CMP #### [facility] ([id number]) [address] [place] [address] #### 2857-1, 55223-7, 32731-6, FEPR, 2276-4 #### [facility] ([id number]) [address], [address] [place] [address] GFR/1.73 sq M.predicted among non-blacks MDRD (S/P/Bld) [Vol rate/Area] 89 mL/min/{1.73_m2} Normal >59 [facility] Comment on above: Result Comment: Reported eGFR is based on the CKD-EPI 2020 equation that does not use a race coefficient. Performed By: #### C BCA, CMP #### [facility] ([id number]) [address] [place] [address] #### 2857-1, 66456-3, 49779-6, FEPR, 6-4 #### [facility] ([id number]) [address], [address] [place] [address] Glucose [Mass/Vol] 193 mg/dL High 65-99 [facility] Comment on above: Performed By: #### C BCA, CMP #### [facility] ([id number]) [address] [place] [address] #### 2857-1, 19568-3, 30421-4, FEPR, 2276-4 #### [facility] ([id number]) [address], [address] [place] [address] Potassium [Moles/Vol] 4.8 mmol/L Normal 3.5-5.0 [facility] [facility] Comment on above: Performed By: #### C BCA, CMP #### [facility] ([id number]) [address] [place] [address] #### 2857-1, 94162-7, 53698-9, FEPR, 2276-4 #### [facility] ([id number]) [address], [address] [place] [address] Protein [Mass/Vol] 7.8 g/dL Normal 6.0-8.0 [facility] Comment on above: Performed By: #### C BCA, CMP #### [facility] ([id number]) [address] [place] [address] #### 2857-1, 15044-3, 30585-7, FEPR, 2276-4 #### [facility] ([id number]) [address], [address] [place] [address] Sodium [Moles/Vol] 135 mmol/L Normal 134-146 [facility] Comment on above: Performed By: #### C BCA, CMP #### [facility] ([id number]) [address] [place] [address] #### 2857-1, 24669-7, 18486-6, FEPR, 2276-4 #### [facility] ([id number]) [address], [address] [place] [address] Urea nitrogen [Mass/Vol] 20 mg/dL Normal 5-27 [facility] Comment on above: Performed By: #### C BCA, CMP #### [facility] ([id number]) [address] [place] [address] #### 2857-1, 92809-9, 54609-5, FEPR, 2276-4 #### [facility] ([id number]) [address], [address] [place] [address] FERRITINon 08-02-2023 Ferritin [Mass/Vol] 29 ng/mL Normal 24-336 [facility] Comment on above: Performed By: #### C BCA, CMP #### [facility] ([id number]) [address] [place] [address] #### 2857-1, 67613-9, 94952-4, FEPR, 2276-4 #### [facility] ([id number]) [address], [address] [place] [address] HCV Ab IA Qlon 08-02-2023 ANTI HCV W/PCR REFLX Non-Reactive Normal NRCT [facility] Comment on above: Result Comment: If recent infection suspected, recommend repeat testing (>2 months). Bwlrio-km-cxjnqz ratio is <0.80. Performed By: #### C BCA, CMP #### [facility] ([id number]) [address] [place] [address] #### 2857-1, 92178-8, 76970-2, FEPR, 2276-4 #### [facility] ([id number]) [address] [place] [address] HGB A1C (GLYCO-HGB)on 2023 Glucose [Mass/Vol] 189 mg/dL Normal [facility] Comment on above: Performed By: #### C BCA, CMP #### [facility] ([id number]) [address] [place] [address] #### 2857-1, 77995-2, 48320-7, FEPR, 2276-4 #### [facility] ([id number]) [address], [address] [place] [address] HbA1c (Bld) [Mass fraction] 8.2 % High 4.4-5.6 [facility] Comment on above: Result Comment: NOTE ADA Guidelines Result HgbA1c Normal : less than 5.7 % Prediabetes : 5.7 % to 6.4 % Diabetes : > 6.4 % Use with caution in patients with abnormal hemoglobin variants as the half-life of red blood cells and in vivo glycation rates are affected. Performed By: #### C BCA, CMP #### [facility] ([id number]) [address] [place] [address] #### 2857-1, 41812-2, 69505-4, FEPR, 2276-4 #### [facility] ([id number]) [address], [address] [address] IRON PROFILEon 08-02-2023 Iron [Mass/Vol] 47 ug/dL Low 50-212 [facility] Comment on above: Performed By: #### C BCA, CMP #### [facility] ([id number]) [address] [place] [address] #### 2857-1, 40281-9, 85792-8, FEPR, 2276-4 #### [facility] ([id number]) [address] [place] [address] IRON BINDING 379 ug/dL Normal 250-425 [facility] Comment on above: Performed By: #### C BCA, CMP #### [facility] ([id number]) [address] [place] [address] #### 2857-1, 63536-6, 67683-4, FEPR, 2276-4 #### [facility] ([id number]) [address] [place] [address], [address] [address] IRON SATURATION 12 % SATURATION Low 20-50 [facility] Comment on above: Performed By: #### C BCA, CMP #### [facility] ([id number]) [address] [place] [address] #### 2857-1, 82866-6, 34165-1, FEPR, 2276-4 #### [facility] ([id number]) [facility], [address] [address] Prostate specific Ag [Mass/V ol]on 08-02-2023 PSA SCREEN 0.52 ng/mL Normal 0.00-4.00 [facility] Comment on above: Result Comment: The method used for this test is Louis Irving DXI chemiluminescent immunoassay. Values obtained by different assay methods cannot be used interchangeably. Performed By: #### C GARDENIA, CMP #### [facility] ([id number]) [address] [place] [address] #### 2857-1, 26585-6, 97054-5, FEPR, 2276-4 #### [facility] ([id number]) [address], [address] [place] [address] Vitamin D+Metabolites [Mass/ Vol]on 08-02-2023 VITAMIN D 25 HYD TOT 19.2 ng/mL Low 30-100 [facility] Comment on above: Result Comment: Vitamin D status 25 [place] Vitamin D Deficiency <20 ng/mL Insufficiency 20-29 ng/mL Sufficiency 30-100 ng/mL Toxicity >100 ng/mL NOTE: A pediatric reference range has not been established by the refinery operator alkylation of this kit. The [place] [employer] recommends a Vitamin D level of = or >20ng/mL in infants and children. Performed By: #### C GARDENIA, CMP #### [facility] ([id number]) [address] [place] [address] #### 2857-1, 53575-5, 44757-3, FEPR, 2276-4 #### [facility] ([id number]) [address], [address] [place] [address] Vital Signs Date Time Vital Sign Value Performing Clinician Facility 05-23-2024 11:55-0500 Diastolic blood pressure 73 mm[Hg] Bebeto LEON Work Phone: [facility] 05-23-2024 11:55-0500 Heart rate 71 /min Bebeto LEON Work Phone: [facility] 05-23-2024 11:55-0500 Respiratory rate 20 /min Bebeto Nienberg PA Work Phone: [facility] [employer] [facility] 05-23-2024 11:55-0500 SaO2% (BldA) [Mass fraction] 100 % Bebeto Josephenberg PA Work Phone: [facility] [employer] [facility] 05-23-2024 11:55-0500 Systolic blood pressure 145 mm[Hg] Bebeto Nienberg PA Work Phone: [facility] [employer] [facility] 04-09-2024 10:12-0400 Body height 175.3 cm Bebeto Nienberg PA Work Phone: [facility] [employer] [facility] Comment on above: stated 04-09-2024 10:12-0400 Body mass index (BMI) [Ratio] 27.62 kg/m2 Bebeto Nienberg PA Work Phone: [facility] [employer] [facility] 04-09-2024 10:12-0400 Body weight 84.82 kg Bebeto Josephenberg PA Work Phone: [facility] [employer] [facility] 04-09-2024 10:12-0400 Diastolic blood pressure 97 mm[Hg] Bebeto Josephenberg PA Work Phone: [facility] [employer] [facility] 04-09-2024 10:12-0400 Heart rate 63 /min Bebeto Nienberg PA Work Phone: [facility] [employer] [facility] 04-09-2024 10:12-0400 Respiratory rate 16 /min Bebeto Josephenberg PA Work Phone: [facility] [employer] [facility] 04-09-2024 10:12-0400 SaO2% (BldA) [Mass fraction] 100 % Bebeto Josephenberg PA Work Phone: [facility] [employer] [facility] 04-09-2024 10:12-0400 Systolic blood pressure 141 mm[Hg] Bebeto Nienberg PA Work Phone: [facility] [employer] [facility] 02-22-2024 13:29-0400 Body height 175.3 cm Bebeto Josephenberg PA Work Phone: [facility] [employer] [facility] 02-22-2024 13:29-0400 Body mass index (BMI) [Ratio] 26.73 kg/m2 Bebeto Nienberg PA Work Phone: [facility] [employer] [facility] 02-22-2024 13:29-0400 Body weight 82.1 kg Bebeto Nienberg PA Work Phone: [facility] [employer] [facility] 02-22-2024 13:29-0400 Diastolic blood pressure 79 mm[Hg] Bebeto Nienberg PA Work Phone: [facility] 02-22-2024 13:29-0400 Heart rate 65 /min Bebeto Nienberg PA Work Phone: [facility] [employer] [facility] 02-22-2024 13:29-0400 SaO2% (BldA) [Mass fraction] 99 % Bebeto Nienberg PA Work Phone: [facility] [employer] [facility] 02-22-2024 13:29-0400 Systolic blood pressure 115 mm[Hg] Bebeto Nienberg PA Work Phone: [facility] [employer] [facility] 01-09-2024 12:23-0400 Body height 175.3 cm Bebeto Nienberg PA Work Phone: [facility] [employer] [facility] 01-09-2024 12:23-0400 Body mass index (BMI) [Ratio] 27.02 kg/m2 Bebeto Nienberg PA Work Phone: [facility] [employer] [facility] 01-09-2024 12:23-0400 Body weight 83.01 kg Bebeto Nienberg PA Work Phone: [facility] [employer] [facility] 01-09-2024 12:23-0400 Diastolic blood pressure 84 mm[Hg] Bebeto Nienberg PA Work Phone: [facility] [employer] [facility] 01-09-2024 12:23-0400 Heart rate 65 /min Bebeto Nienberg PA Work Phone: [facility] [employer] [facility] 01-09-2024 12:23-0400 Respiratory rate 16 /min Bebeto Nienberg PA Work Phone: [facility] [employer] [facility] 01-09-2024 12:23-0400 SaO2% (BldA) [Mass fraction] 98 % Bebeto Nienberg PA Work Phone: [facility] 01-09-2024 12:23-0400 Systolic blood pressure 142 mm[Hg] Bebeto LEON Work Phone: [facility] Encounters Encounter Date Encounter Type Care Provider Facility Start: 07-22-2024 End: 07-22-2024 ambulatory MARIANA Liu [facility] Start: 07-12-2024 End: 07-22-2024 Refill Liliana Rivera [employer]OWNER OPERATOR [employer]UCK DRIVER Work Phone: [facility] Comment on above: Med Change Request Start: 05-23-2024 End: 05-23-2024 Refill Bebeto Espino [employer]ARMWORK[employer]OWNER OPERATOR [employer]ER TRUCK DRIVER Work Phone: [facility] Comment on above: Med Refill Start: 05-23-2024 End: 05-23-2024 Office outpatient visit 15 minutes Bebeto LEON Work Phone: [facility] Comment on above: Lumbosacral 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 (Primary Dx) Start: 05-23-2024 End: 05-23-2024 ambulatory [facility] Start: 05-09-2024 End: 05-09-2024 [facility] Start: 05-03-2024 End: 05-03-2024 ambulatory NAY Valera HYDE [facility] Start: 04-16-2024 End: 04-16-2024 Emergency department patient visit [facility] Start: 04-09-2024 End: 04-09-2024 Office outpatient visit 25 minutes Bebeto LEON Work Phone: [facility] Comment on above: Lumbosacral 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 (Primary Dx) Start: 04-09-2024 End: 04-09-2024 ambulatory [facility] Start: 04-01-2024 End: 04-01-2024 ambulatory [facility] Start: 02-22-2024 End: 02-22-2024 Office outpatient visit 25 minutes Bebeto LEON Work Phone: [facility] Comment on above: Lumbosacral 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 (Primary Dx); Disc displacement, lumbar; Lumbar radiculopathy, chronic Start: 02-22-2024 End: 02-22-2024 ambulatory [facility] Start: 02-21-2024 End: 02-21-2024 Refill Marsha Godinezkaren [employer] FARMWORKER-OWNER OPERATOR [employer]ER TRUCK DRIVER Work Phone: [facility] Comment on above: Med Refill Start: 01-17-2024 End: 01-17-2024 Telephone encounter Di London CNA [facility] Start: 01-11-2024 End: 01-11-2024 Telephone encounter Mariana Reyez RN [facility] Start: 01-09-2024 End: 01-09-2024 Office outpatient new 30 minutes Bebeto LEON Work Phone: [facility] Comment on above: Lumbar spondylolysis (Primary Dx) Start: 01-09-2024 End: 01-09-2024 ambulatory [facility] Start: 12-26-2023 End: 12-27-2023 Emergency department patient visit DIVYA GONZALES [facility] Start: 09-22-2023 End: 09-22-2023 ambulatory [facility] Start: 08-02-2023 End: 08-02-2023 ambulatory [facility] Start: 11-14-2022 End: 11-15-2022 ambulatory [facility] Facility:H1 Start: 10-24-2022 End: 10-25-2022 ambulatory [facility] Facility:[facility]1 Start: 10-03-2022 End: 10-04-2022 ambulatory [facility] Facility:H1 Start: 09-12-2022 End: 09-13-2022 ambulatory CHET FOURNIER Facility:H1 Start: 08-23-2022 End: 08-24-2022 ambulatory MARIANA PHILLIPS Facility:H1 Start: 08-16-2022 End: 08-17-2022 ambulatory MARIANA PHILLIPS Facility:H1 Start: 08-09-2022 End: 08-10-2022 ambulatory MARIANA PHILLIPS Facility:H1 Procedures Date Procedure Procedure Detail Performing Clinician Start: 04-06-2023 Microalbumin [Mass/v olume] in Urine by Test strip Bebeto LEON Work Phone: Plan of Treatment Date Care Activity Detail Author Start: 05-23-2025 Tobacco Screening Tobacco Screening [facility] Start: 04-16-2025 Adult BMI Screening Adult BMI Screen ing [facility] Start: 04-09-2025 Adult BMI Screening Adult BMI Screen ing [facility] Start: 04-09-2025 Tobacco Screening Tobacco Screening [facility] Start: 02-21-2025 Adult BMI Screening Adult BMI Screen ing [facility] Start: 02-21-2025 Tobacco Screening Tobacco Screening [facility] Start: 01-08-2025 Adult BMI Screening Adult BMI Screen ing [facility] Start: 01-08-2025 Tobacco Screening Tobacco Screening [facility] Start: 07-24-2024 End: 07-24-2024 Clinical Support [facility] Start: 07-04-2024 End: 07-04-2024 Patient encounter procedure 07/04/2024 10:00 AM EST Office Visit [facility] [address] [place] [phone] Bebeto Haq PA [address] [place] [address] [facility] Start: 05-23-2024 End: 05-23-2024 Patient encounter procedure 05/23/2024 12:45 PM EST Office Visit [facility] [address] [place] [phone] Bebeto Haq PA [address] [place] [address] [facility] Start: 05-03-2024 End: 05-03-2024 Admission to same day surgery center 05/03/2024 8:58 AM EDT - 05/03/2024 9:06 AM EDT Surgery [facility] [address] [place] [phone] Nay Hyde MD [address] [facility] [id number] INJECTION BLOCK NERVE MEDIAL BRANCH: bilat L45 51 [89086 (CPT )] [facility] Comment on above: INJECTION BLOCK NERV E MEDIAL BRANCH: bilat L45 51 [07126 (CPT )] Start: 05-03-2024 End: 05-03-2024 Njx dx/ther agt pvrt facet jt lmbr/sac 1 level INJECTION BLOCK NERVE MEDIAL BRANCH Lumbosacral spondylosis without myelopathy 05/03/2024 8:58 AM EDT [facility] Start: 05-03-2024 Subsequent hospital visit by physician 05/03/2024 8:58 AM EDT Hospital Encounter [facility] [address] [place] [phone] Nay Hyde MD [address] [facility] [place] [address] [facility] Start: 04-06-2024 Urine screening for protein Urine Microalbumin [facility] Start: 04-04-2024 End: 04-04-2024 Patient encounter procedure 04/04/2024 1:15 PM EDT Appointment [facility] [address] [place] [phone] Bebeto Haq PA [address] [place] [address] [facility] Start: 03-03-2024 COVID-19 Vaccine ( season) COVID-19 Vaccine ( season) [facility] Start: 03-03-2024 COVID-19 Vaccine ( season) COVID-19 Vaccine ( season) [facility] Start: 03-03-2024 Influenza vaccination Influenza Vacc ine [facility] Start: 02-22-2024 End: 02-22-2024 Patient encounter procedure 02/22/2024 2:45 PM EDT Office Visit [facility] [address] [place] [address] Bebeto Haq PA [address] [place] [address] [facility] Start: 03-03-2023 COVID-19 Vaccine ( season) COVID-19 Vaccine ( season) [facility] Start: 2019 Abdominal aortic aneurysm screening Abdominal Aortic Aneurysm (AAA) Screen [facility] Start: 2019 Fall Risk Screening Fall Risk Screen ing [facility] Start: 2004 Administration of varicella zoster vaccine Zoster (Shingles) Vaccine (1 of 2) [facility] Start: 1973 DTaP,Tdap and Td Vaccines (1 - Tdap) DTaP,Tdap and Td Vaccines (1 - Tdap) [facility] Start: 1972 Adult BMI Follow Up Plan Adult BMI Follow Up Plan [facility] Start: 1972 Diabetic foot examination Diabetic Foot Exam [facility] Start: 1966 Depression Screening Depression Scre ening [facility] Start: 1954 Glaucoma screening Diabetic Op hthalmology Exam [facility] Start: 1954 Medicare Annual Well ness Visit Medicare [facility] End: 02-21-2025 MR Lumbar spine WO contrast MR lumbar spine without contrast Imaging Routine Lumbar radiculopathy, chronic 1 Occurrences starting 02/22/2024 until 02/21/2025 [facility] Comment on above: 1 Occurrences starti ng 02/22/2024 until 02/21/2025 Immunizations Immunization Date Immunization Notes Care Provider Miles velasquez 04-11-2023 influenza virus vaccine, unspecified formulation Bebeto LEON Work Phone: [facility] [employer] [facility] 04-19-2021 influenza, injectabl e, quadrivalent, preservative free [facility] LEON [facility] 05-18-2018 Influenza, injectabl e, Madin Comptche Canine Kidney, preservative free, quadrivalent Bebeto LEON Work Phone: [facility] [employer] [facility] 05-10-2017 influenza, seasonal, injectable, preservative free [facility]eb[facility] LEON [facility] 03-25-2015 influenza, seasonal, injectable, preservative free Bebeto LEON Work Phone: [facility] [employer] [facility] 04-15-2014 influenza, seasonal, injectable Bebeto LEON Work Phone: [facility] Payers Date Payer Category Payer Medicaid [id number] 1992 Medicare [id number] 1959 Medicaid [id number] 1960 Medicare [id number] 1954 Unknown [id number] 2.16.84 0.1.957535.3.579.2.593 1954 Unknown [id number] 2.16.84 0.1.193361.3.579.2.593 1954 Unknown [id number] 2.16.84 0.1.025201.3.579.2.593 1954 Unknown [id number] 2.16.84 0.1.269093.3.579.2.593 1954 Unknown [id number] 2.16.84 0.1.808580.3.579.2.593 1954 Unknown [id number] 2.16.84 0.1.925616.3.579.2.593 1954 Unknown [id number] 2.16.84 0.1.208521.3.579.2.593 1954 Unknown [id number] 2.16. 840.1.174182.3.579.2.1286 1954 Unknown [id number] 2.16.8 40.1.058272.3.579.2.1286 1954 Unknown [id number] 2.16.8 40.1.032666.3.579.2.1286 1954 Unknown [id number] 2.16.8 40.1.240167.3.579.2.6 1954 Unknown [id number] 2.16.8 40.1.241307.3.579.2.1286 1954 Unknown [id number] 2.16.8 40.1.444700.3.579.2.1286 1954 Unknown [id number] 2.16.8 40.1.989246.3.579.2.128 1954 Unknown [id number] 2.16.8 40.1.049287.3.579.2.1285 1954 Unknown [id number] 2.16.8 40.1.472351.3.579.2.1285 1954 Unknown [id number] 2.16.8 40.1.657056.3.579.2.1286 1954 Unknown [id number] 2.16.8 40.1.424147.3.579.2.1286 1954 Unknown [id number] 2.16.8 40.1.754798.3.579.2.1286 1954 Unknown [id number] 2.16.8 40.1.470114.3.579.2.1286 1954 Unknown [id number] 2.16.8 40.1.876841.3.579.2.1286 1954 Unknown [id number] 2.16.8 40.1.945595.3.579.2.1286 Social History Date Type Detail Facility Start: 01-09-2024 Tobacco smoking stat [facility] Ex-smoker [facility] History of tobacco use Current smoker [facility] History of tobacco use Cigarette Smoker P [facility] Start: 01-09-2024 Tobacco use and exposure Smokeless tobacco non-user [facility] Start: 04-09-2024 End: 05-23-2024 Alcoholic beverage intake Current non-drinker of alcohol (finding) [facility] Start: 07-18-2020 End: 05-23-2024 History of Social function [facility] Start: 07-18-2020 End: 05-23-2024 Tobacco use panel [facility] Childcare Unknown [facility] Start: 1955 Sex assigned at Not on file [facility] Start: 02-05-2015 Sex Male (finding) [facility] Medical Equipment Procedure Code Equipment Code Equipment Origin al Text Equipment Identifier Dates Ld Pcng 55cm Rv Sq Scr S Df-4 - [id number] - [id number] Start: 11-20-2018 Lead Capsure Fix [employer] 5076-45 - [id number] - [id number] Start: 11-20-2018 Lead Capsure Fix [employer] 5076-52 - [id number] - [id number] Start: 07-21-2020 [address] - [id number] - [id number] Start: 11-20-2018 Syole Crd Rvl Linq Rpl [id number] - [id number] - [id number] Start: 11-16-2018 Start: 01-20-2018 Goals Date Patient Goal Desired Activity /State Personal health goal Comment on above: Formatting of this n ote might be different from the original. Evaluation of progress towards goal: discharge home with restorationism/friends support. Personal health goal Comment on above: [...] & Type Note Facility 07-12-2024 Miscellaneous Notes Samantha 03/08/23 Pt has future appt 07/24/24 documented in this encounter [facility] 07-12-2024 Telephone encounter Note Samantha 03/08/23 Pt has future appt 07/24/24 [facility] 05-23-2024 History of Present illness Narrative [facility] [address] [place] [address] Patient: Radha Quiñones Sex: male : 1955 Age: 69 y.o. PCP: CAYDEN [place] 05/23/2024 Radha Quiñones is here for a(n) post procedure follow up 11/1/24 Bilateral L4/5, 5/1 medial branch block injection [...] Date Angina pectoris (CMS-HCC) Arrhythmia Atrial fibrillation (CMS-HCC) Atrial flutter (CMS-HCC) Atrial flutter (CMS-HCC) Benign prostatic hyperplasia BPH with urinary obstruction Cancer (CMS-HCC) skin cancer Cataract Constipation Coronary artery disease Dental disease no teeth Diabetes mellitus (CMS-HCC) Diabetes mellitus type 2, controlled ([place]) Hypercholesterolemia Hypertension Myositis Peripheral neuropathy Rash Scalp wound Urinary incontinence Ventricular tachycardia ([place]) Visual impairment glasses Past Surgical History: Procedure Laterality Date 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; excision and debridement Left 10/29/2021 Performed by Ambrosio Al MD at [facility] AMPUTATION TOE 4TH & 5TH/WIDE INCISIONAL DEBRIDEMENT LEFT DIABETIC FOOT NECROTIZING FASCITIS Left 08/12/2021 Performed by Ambrosio Al MD at [facility] CARDIAC DEFIBRILLATOR PLACEMENT medtronic CATARACT EXTRACTION Coronary angiogram and left ventricular gram/pressure N/A 11/19/2018 Performed by Sage Jay MD at [facility] Coronary fractional flow reserve N/A 11/19/2018 Performed by Sage Jay MD at [facility] CYSTOSCOPY [facility] SOLUTION N/A 10/27/2021 Performed by Frederic Thorne MD at [facility] DC ICD RA lead replace - MDT N/A 07/21/2020 Performed by Yoni Espinoza MD at [facility] (EP) EP - Device DC ICD Left 11/20/2018 Performed by Shayna Betancourt MD at [facility] (EP) EP - Diagnostic-- EP study Right 11/16/2018 Performed by Rafita Garcia MD at [facility] (EP) INJECTION BLOCK NERVE MEDIAL BRANCH: bilat L 10/05, 10/31 Bilateral 05/03/2024 Performed by Nay Hyde MD at [facility] Loop recorder implant N/A 11/16/2018 Performed by Rafita Garcia MD at [facility] (EP) Loop recorder removal N/A 07/21/2020 Performed by Yoni Espinoza MD at [facility] (EP) SKIN CANCER EXCISION No Known Allergies [...] Interpersonal Safety: Unknown (08/24/2023) Received from [facility] Environment Fear of Current or [...] accurate and complete. Caridad Wallis RN 05/23/24 [id number] EDWARD Benavides 05/23/24 [id number] documented in this encounter [facility] 05-23-2024 Miscellaneous Notes Last OV 03/08/23. Letter sent to pt 02/23. Attempted to call pt, no VM box set up. Letter sent. Pt will need appointment for future refills. documented in this encounter [facility] 05-23-2024 Telephone encounter Note Last OV 03/08/23. Letter sent to pt 02/23. Attempted to call pt, no VM box set up. Letter sent. Pt will need appointment for future refills. [facility] 04-09-2024 History of Present illness Narrative [facility] [address] [place] [address] Patient: Radha Quiñones Sex: male : 1955 [...] Past Medical History: Diagnosis Date Angina pectoris ([facility]) Arrhythmia Atrial fibrillation ([facility] Atrial flutter ([facility]) Atrial flutter ([facility]) Benign prostatic hyperplasia BPH with urinary obstruction Cancer ([facility]) skin cancer Cataract Constipation Coronary artery disease Dental disease no teeth Diabetes mellitus ([facility]) Diabetes mellitus type 2, controlled ([place]) Hypercholesterolemia Hypertension Myositis Peripheral neuropathy Rash Scalp wound Urinary incontinence Ventricular tachycardia ([facility]) Visual impairment glasses Past Surgical History: Procedure Laterality Date 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; excision and debridement Left 10/29/2021 Performed by Ambrosio Al MD at [facility] AMPUTATION TOE 4TH & 5TH/WIDE INCISIONAL DEBRIDEMENT LEFT DIABETIC FOOT NECROTIZING FASCITIS Left 08/12/2021 Performed by Ambrosio Al MD at [facility] CARDIAC DEFIBRILLATOR PLACEMENT medtronic CATARACT EXTRACTION Coronary angiogram and left ventricular gram/pressure N/A 11/19/2018 Performed by Sage Jay MD at [facility]ATH [facility] Coronary fractional flow reserve N/A 11/19/2018 Performed by Sage Jay MD at [facility]ATH [facility] CYSTOSCOPY [facility] SOLUTION N/A 10/27/2021 Performed by Frederic Thorne MD at [facility] DC ICD RA lead replace - MDT N/A 07/21/2020 Performed by Yoni Espinoza MD at [facility] (EP) EP - Device DC ICD Left 11/20/2018 Performed by Shayna Betancourt MD at [facility] (EP) EP - Diagnostic-- EP study Right 11/16/2018 Performed by Rafita Garcia MD at [facility] (EP) Loop recorder implant N/A 11/16/2018 Performed by Rafita Garcia MD at [facility] (EP) Loop recorder removal N/A 07/21/2020 Performed by Yoni Espinoza MD at [facility] (EP) SKIN CANCER EXCISION No Known Allergies [...] Interpersonal Safety: Unknown (08/24/2023) Received from [facility] Fear of Current or [...] these patients; however, close collaboration with a casino enforcement agent or sleeve ironer is recommended before initiating the RFN procedure, therefore prior to RFA we will consult with patient's casino enforcement agent/sleeve ironer for approval and recommendations to proceed with [...] Benavides 04/11/24 1226 documented in this encounter [facility] edulio 04-09-2024 Instructions Chula Bonilla CNA - 04/09/2024 [...] nearest emergency room. documented in this encounter [facility] [employer] [facility] 02-22-2024 History of Present illness Narrative [facility] [address] [place] [address] Patient: Radha Quiñones Sex: male : 1955 Age: 68 y.o. PCP: [facility] Nathaniel 02/22/2024 Radha Quiñones is here for a(n) follow up. Continues PT x2 weekly at home. Right anterior leg pain is worse. Date of onset of pain: years ago, pain has lasted greater than 3 months. Chief Complaint Patient presents with Back Pain HPI: Back Pain This is a chronic problem. The current episode started more than 1 year ago. The problem occurs constantly. The problem has been gradually worsening since onset. The pain is present in the lumbar spine, gluteal and sacro-iliac. The quality of the pain is described as aching (thumping). The pain radiates to the right thigh and right knee. The pain is at a severity of 5/10. The pain is moderate. The pain is Worse during the day. The symptoms are aggravated by lying down, bending and twisting. Stiffness is present All day. Associated symptoms include bladder incontinence, leg pain (Rt thigh) and weakness (BLE, wheelchair). Pertinent negatives include no bowel incontinence, chest pain, fever, headaches, numbness or tingling. Risk factors include obesity and history of cancer. He has tried muscle relaxant, analgesics and heat (Tylenol ES, carisopradol (causes nausea) with mod relief) for the symptoms. The treatment provided mild relief. The effect of pain on patient's ADLS: Moderate Impairment. Past Medical History: Diagnosis Date Angina pectoris ([facility]) Arrhythmia Atrial fibrillation ([facility]) Atrial flutter ([facility]) Atrial flutter ([facility]) Benign prostatic hyperplasia BPH with urinary obstruction Cancer ([facility]) skin cancer Cataract Constipation Coronary artery disease Dental disease no teeth Diabetes mellitus ([facility]) Diabetes mellitus type 2, controlled ([facility]) Hypercholesterolemia Hypertension Myositis Peripheral neuropathy Rash Scalp wound Urinary incontinence Ventricular tachycardia ([facility]) Visual impairment glasses Past Surgical History: Procedure Laterality Date 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; excision and debridement Left 10/29/2021 Performed by Ambrosio Al MD at [facility] AMPUTATION TOE 4TH & 5TH/WIDE INCISIONAL DEBRIDEMENT LEFT DIABETIC FOOT NECROTIZING FASCITIS Left 08/12/2021 Performed by Ambrosio Al MD at [facility] CARDIAC DEFIBRILLATOR PLACEMENT medtronic CATARACT EXTRACTION Coronary angiogram and left ventricular gram/pressure N/A 11/19/2018 Performed by Sage Jay MD at [facility] Coronary fractional flow reserve N/A 11/19/2018 Performed by Sage Jay MD at [facility] CYSTOSCOPY [facility] SOLUTION N/A 10/27/2021 Performed by Frederic Thorne MD at [facility] DC ICD RA lead replace - MDT N/A 07/21/2020 Performed by Yoni Espinoza MD at [facility] (EP) EP - Device DC ICD Left 11/20/2018 Performed by Shayna Betancourt MD at [facility] (EP) EP - Diagnostic-- EP study Right 11/16/2018 Performed by Rafita Garcia MD at [facility] (EP) Loop recorder implant N/A 11/16/2018 Performed by Rafita Garcia MD at [facility] (EP) Loop recorder removal N/A 07/21/2020 Performed by Yoni Espinoza MD at [facility] () SKIN CANCER EXCISION No Known Allergies Family [...] on file Food Insecurity: No Food Insecurity (02/22/2024) Hunger Screening Food Insecurity - Worry: Never True Food Insecurity - Inability: Never True Transportation Needs: Not on file Physical Activity: Not on file Stress: Not on file Social Connections: Not on file Interpersonal Safety: Unknown (08/24/2023) Received from [facility] Fear of Current or Ex-Partner: Not on file Emotionally Abused: Not on file Physically Abused: Not on file Sexually Abused: Not on file Physically or Sexually Abused: Not on file Housing Instability: Not on file Review of Systems Constitutional: Negative for chills and fever. HENT: Negative. Eyes: Negative. Respiratory: Negative for cough and shortness of breath. Cardiovascular: Negative for chest pain. Gastrointestinal: Negative. Negative for bowel incontinence. Endocrine: Negative. Genitourinary: Positive for bladder incontinence. Musculoskeletal: Positive for back pain. Skin: Negative. Allergic/Immunologic: Negative. Neurological: Positive for weakness (BLE, wheelchair). Negative for tingling, numbness and headaches. Hematological: Negative. Psychiatric/Behavioral: Negative. Vital Signs: BP 115/79 Pulse 65 Ht 175.3 cm (5' 9 ) Wt 82.1 kg (181 lb) SpO2 99% BMI 26.73 kg/m Physical Exam: GENERAL - Healthy patient [...] all dermatomal distributions. Straight Leg Raise is Positive on the Right Gait is antalgic and assisted with ambulatory aid(s): W/C. Assessment/Treatment Plan: Radha was seen today for back pain. Diagnoses and all orders for this visit: Lumbosacral spondylosis without myelopathy Disc displacement, lumbar Lumbar radiculopathy, chronic - MR lumbar spine without contrast; Future Lumbar spine without contrast MRI - It is felt that additional diagnostic testing is necessary to further evaluate the patients current pain pathology. For this reason, we will order additional imaging noted above. It is hopeful that this study will identify a significant pain generator that will be amenable to therapy. It is felt that this modality is necessary due to the severity and chronicity of symptoms and physical exam findings combined with the lack of recent imaging of the area. An MRI is specifically felt to be necessary due to the physical exam findings noted above and the patient s description of refractory pain in a neuropathic distribution that is not relieved by change in body position and interferes with the patient s activities of daily living Follow up after MRI completed. The medications I have prescribed have been reviewed for medication interactions/contraindications [...] Prescribed medication that requires intensive monitoring for toxicity: We do not currently prescribe any controlled substance from this practice. Treatment plans discussed but not opted for at this time: Lumbar Epidural Steroid injection Chronic conditions not treated during this visit that affected my overall medical decision making: Anticoagulation therapy, Diabetes, Pacemaker The spine model was demonstrated and Xray was reviewed and used to explain the condition. OARRS: Reviewed. Follow up after MRI completed. Scribe Statement: Scribed for and in the presence of EDWARD BENAVIDES by Mine Ruffin RN. Provider Statement: I, EDWARD BENAVIDES, personally performed the services described in the documentation, as scribed by Mine Ruffin RN in my presence, and it is both accurate and complete. Mine Ruffin RN 02/22/24 1359 EDWARD Benavides 02/29/24 1218 documented in this encounter [facility] 02-21-2024 Miscellaneous Notes 02/21/24 Remember to arrange Mar 2024 annual offc appt. Please contact pt to arrange. documented in this encounter [facility] 02-21-2024 Miscellaneous Notes OV-03/08/2023 documented in this encounter [facility] 02-21-2024 Telephone encounter Note 02/21/24 Remember to arrange Mar 2024 annual offc appt. Please contact pt to arrange. [facility] 02-21-2024 Telephone encounter Note OV-03/08/2023 [facility] 01-17-2024 Miscellaneous Notes Martha Merlos RN states he is needing a prescription for Tramadol. She is requesting it as it was ordered while in the hospital because this has been effective for him. ( 50 mg every 8 hours ). 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 documented in this encounter [facility] 01-17-2024 Telephone encounter Note Martha Merlos RN states he is needing a prescription for Tramadol. She is requesting it as it was ordered while in the hospital because this has been effective for him. ( 50 mg every 8 hours ). 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 [facility] 01-11-2024 Miscellaneous Notes Patients friend came to window with request to get soma medication refilled. Provider stated we do not fill soma and friend instructed with information and to reach out pcp as they were the ones who provided patient with the rx. Friend verbalized understanding. documented in this encounter [facility] 01-11-2024 Telephone encounter Note Patients friend came to window with request to get soma medication refilled. Provider stated we do not fill soma and friend instructed with information and to reach out pcp as they were the ones who provided patient with the rx. Friend verbalized understanding. [facility] 01-09-2024 History of Present illness Narrative [facility] [address] [place] [address] Patient: Radha Quiñones Sex: male : 1955 Age: 68 y.o. PCP: [facility] Nathaniel 01/09/2024 Radha Quiñones is here for a(n) initial consultation for low back pain for 2 weeks. The referral is for neck pain and lumbar pain however patient denies neck pain at today's visit. Chief Complaint Patient presents with Back Pain HPI: Back Pain This is a chronic problem. The current episode started more than 1 year ago. The problem occurs constantly. The problem has been gradually worsening since onset. The pain is present in the lumbar spine. The quality of the pain is described as aching. The pain radiates to the right thigh and left thigh (posterior aspect of BLE to mid calf R>L). The pain is at a severity of 5/10 (up 7/10 with aggrevating movements). The pain is moderate. The pain is Worse during the night. The symptoms are aggravated by lying down, bending and twisting. Stiffness is present All day. Associated symptoms include bladder incontinence, leg pain (posterior aspect of BLE to mid calf) and weakness (uses walking). Pertinent negatives include no bowel incontinence, headaches or numbness. Risk factors include obesity and history of cancer. He has tried muscle relaxant, analgesics and heat (Tylenol ES, carisopradol (causes nausea) with mod relief) for the symptoms. The effect of pain on patient's ADLS: Moderate Impairment. Past Medical History: Diagnosis Date Angina pectoris (CMS-HCC) Arrhythmia Atrial fibrillation (CMS-HCC) Atrial flutter (CMS-HCC) Atrial flutter (CMS-HCC) Benign prostatic hyperplasia BPH with urinary obstruction Cancer (CMS-HCC) skin cancer Cataract Constipation Coronary artery disease Dental disease no teeth Diabetes mellitus (CMS-HCC) Diabetes mellitus type 2, controlled (CMS-HCC) Hypercholesterolemia Hypertension Myositis Peripheral neuropathy Rash Scalp wound Urinary incontinence Ventricular tachycardia (CMS-HCC) Visual impairment glasses Past Surgical History: Procedure Laterality Date 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; excision and debridement Left 10/29/2021 Performed by Ambrosio Al MD at [facility] AMPUTATION TOE 4TH & 5TH/WIDE INCISIONAL DEBRIDEMENT LEFT DIABETIC FOOT NECROTIZING FASCITIS Left 08/12/2021 Performed by Ambrosio Al MD at [facility] CARDIAC DEFIBRILLATOR PLACEMENT medtronic CATARACT EXTRACTION Coronary angiogram and left ventricular gram/pressure N/A 11/19/2018 Performed by Sage Jay MD at [facility]ATH [facility] Coronary fractional flow reserve N/A 11/19/2018 Performed by Sage Jay MD at [facility]ATH [facility] CYSTOSCOPY [facility] SOLUTION N/A 10/27/2021 Performed by Frederic Thorne MD at [facility] DC ICD RA lead replace - MDT N/A 07/21/2020 Performed by Yoni Espinoza MD at [facility] (EP) EP - Device DC ICD Left 11/20/2018 Performed by Shayna Betancourt MD at [facility] (EP) EP - Diagnostic-- EP study Right 11/16/2018 Performed by Rafita Garcia MD at [facility] ([facility]) Loop recorder implant N/A 11/16/2018 Performed by Rafita Garcia MD at [facility] ([facility]) Loop recorder removal N/A 07/21/2020 Performed by Yoni Espinoza MD at [facility] ([place]) SKIN CANCER EXCISION No Known Allergies [...] on file Food Insecurity: No Food Insecurity (01/09/2024) Hunger Screening Food Insecurity - Worry: Never True Food Insecurity - Inability: Never True Transportation Needs: Not on file Physical Activity: Not on file Stress: Not on file Social Connections: Not on file Interpersonal Safety: Unknown (08/24/2023) Received from [facility] Fear of Current or Ex-Partner: Not on file Emotionally Abused: Not on file Physically Abused: Not on file Sexually Abused: Not on file Physically or Sexually Abused: Not on file Housing Instability: Not on file Review of Systems HENT: Edentulous Respiratory: Negative for cough. Gastrointestinal: Negative for bowel incontinence, constipation and diarrhea. Genitourinary: Positive for bladder incontinence. Incontinence Musculoskeletal: Positive for back pain. Skin: Positive for color change (dry and erythemic right hand). Neurological: Positive for weakness (uses walking). Negative for dizziness, numbness and headaches. Psychiatric/Behavioral: Negative. Vital Signs: BP 142/84 Pulse 65 Resp 16 Ht 175.3 cm (5' 9 ) Wt 83 kg (183 lb) SpO2 98% BMI 27.02 kg/m Physical Exam: GENERAL - Healthy patient [...] all dermatomal distributions. Straight Leg Raise is negative. Gait is antalgic and assisted with ambulatory aid(s): W/C. Assessment/Treatment Plan: Radha was seen today for back pain. Diagnoses and all orders for this visit: Lumbar spondylolysis Proceed with Physical/Aquatic Therapy - It is felt that the patient will benefit from a course of physical therapy focusing on the above mentioned diagnosis. We will recommend that the physical therapist fully evaluate and treat at their discretion considering the modalities that are most useful for the condition being treated. This may include modalities of comfort including moist heat, ultrasound, and TENS therapy. It may also utilize manual therapy and myofascial release for the myofascial component of the patient s pain. It will likely advance to modalities aimed at stabilizing and strengthing the target area while improving range of motion as well. We are also requesting that the physical therapist send notes that will keep our clinic updated to the patient s progress. Follow up 4-6 weeks The medications prescribed have been reviewed for [...] not opted for at this time: Lumbar MRI. Patient would like to proceed with the current outlined treatment plan before moving forward with any other options. The spine model was demonstrated and Xray was reviewed and used to explain the condition. OARRS: Reviewed. Scribe Statement: Scribed for and in the presence of EDWARD BENAVIDES by Chula Bonilla CNA. Provider Statement: I, EDWARD BENAVIDES, personally performed the services described in the documentation, as scribed by Chula Bonilla CNA in my presence, and it is both accurate and complete. Chula Bonilla CNA 01/09/24 1308 Chula Bonilla CNA 01/09/24 1323 EDWARD Benavides 01/11/24 0973 documented in this encounter [facility] 08-09-2022 Note PROCEDURE: XR FOOT L T [...] by: EDILSON DON Date: 2022-08-09 15:44 [facility] Evaluation note Diagnosis Enuresis- Primary Functional urinary incontinence BPH [...] Paroxysmal ventricular tachycardia [facility] Diagnosis Lumbar spondylolysis- Primary Lumbosacral spondylosis without myelopathy [facility] Diagnosis Atrial fibrillation, unspecified type (CMS-HCC)- Primary [facility] Diagnosis Ventricular tachycardia (CMS-HCC) Paroxysmal ventricular tachycardia Atrial fibrillation with RVR (CMS-HCC) V-tach (CMS-HCC) Paroxysmal ventricular tachycardia [facility] Diagnosis Lumbosacral spondylosis without myelopathy- Primary Disc displacement, lumbar Displacement of lumbar intervertebral disc without myelopathy Lumbar radiculopathy, chronic [facility] Diagnosis Lumbosacral spondylosis without myelopathy- Primary Lumbosacral spondylosis without myelopathy- Primary Lumbosacral spondylosis without myelopathy [facility] Diagnosis Enuresis- Primary Functional urinary incontinence BPH (benign prostatic hypertrophy) with urinary obstruction- Primary Hypertrophy of prostate with urinary obstruction and other lower urinary tract symptoms (LUTS) Benign prostatic hyperplasia with urinary obstruction- Primary Urinary retention- Primary Unspecified retention of urine Benign prostatic hyperplasia with urinary obstruction Lumbosacral spondylosis without myelopathy- Primary [facility] Enuresis- Primary Functional urinary incontinence BPH (benign prostatic hypertrophy) with urinary obstruction- Primary Hypertrophy of prostate with urinary obstruction and other lower urinary tract symptoms (LUTS) Benign prostatic hyperplasia with urinary obstruction- Primary Urinary retention- Primary Unspecified retention of urine Benign prostatic hyperplasia with urinary obstruction Ventricular tachycardia (CMS-HCC) Paroxysmal ventricular tachycardia Atrial fibrillation with RVR ([facility]) V-tach ([facility]) Paroxysmal ventricular tachycardia [facility] in this [facility]ocumented in this encounter [facility] filedocumented in this encounter [facility] filedocumented in [facility] filedocumented [facility] filed[facility]ed in this [facility] Summary Purpose Family History No Family History Records FoundNo Family History Records Found Advance Directives Date Activated Date Inactivated Comments 08/10/2021 3:58 [...] Referral Specialty Diagnoses / Procedures Referred By Contac t Referred To Contact Radiology Diagnoses Lumbar radiculopathy, chronic Procedures MR lumbar spine without contrast Bebeto Haq, PA [address] [place] [address] [facility] [address] [place] [address] Phone: [phone] Referral ID Status Reason Start Date Expiration Date V isits Requested Visits Authorized [id number] Pending Review 02/22/2024 02/21/2025 1 1 Specialty Diagnoses / Procedures Referred By Fly t Referred To Contact Diagnoses Lumbosacral spondylosis without myelopathy Procedures Case request operating room: INJECTION BLOCK NERVE MEDIAL BRANCH: bilat L45 [address], [place] [address] [place] [address] Referral ID Status Reason Start Date Expiration Date V isits Requested Visits Authorized [id number] Pending Review 04/09/2024 04/09/2025 1 1 Additional Source Comments (unrecognized sect ion and content) No Status Records FoundNo Status Records Found INFORMATION SOURCE (unrecogn ized section and content) DATE CREATED AUTHOR 11/16/2022 [facility] DATE CREATED AUTHOR AUTHOR'S ORGANIZ ATION 07/24/2024 [facility] Reason for Visit (unrecogniz ed section and content) Reason Comments Med Change Request Reason Comments Back Pain Reason Comments Med Refill Reason Comments Back Pain Care Teams (unrecognized sec tion and content) Registered Art Therapist Relationship Specialty Start Date End Date Services, [facility] [address] [place] PCP - General Family Medicine 04/16/24 Registered Art Therapist Relationship Specialty Start Date [facility] [address] [place] PCP - General Family Medicine 12/26/23 Registered Art Therapist Relationship Specialty Start Date End Date Services, [facility] [address] [place] PCP - General Family Medicine 12/26/23 Registered Art Therapist Relationship Specialty Start Date End Date [facility] [address] [place] PCP - General Family Medicine 12/26/23 Registered Art Therapist Relationship Specialty Start Date End Date Services, [facility] [address], [place] PCP General Family Medicine 12/26/23 Registered Art Therapist Relationship Specialty Start Date End Date Services, [facility] [address], [place] PCP General Family Medicine 12/26/23 Registered Art Therapist Relationship Specialty Start Date End Date Services, [place] [id number], [place] PCP General Family [facility] 12/26/23 Registered Art Therapist Relationship Specialty Start Date End Date Services, [facility] [address] [place] [facility] General Family [facility] 04/16/24 Registered Art Therapist Relationship Specialty Start Date End Date Services, [facility] [address], [place] PCP - General Family Medicine 04/16/24 FOR [...] BE BASED ON THE PRIMARY CLINICAL RECORDS. [facility]. provides no warranty or guarantee of the accuracy or completeness of information in this document.
== END 2024-08-27 10:35 | disposition home or self-care (01) ==
LOC: WC 10:34
PROVIDERS: Visit Provider Physician Assistant
DX: E11.621 Type 2 diabetes mellitus with foot ulcer (principal); L97.421 Non-pressure chronic ulcer of left heel and midfoot limited to breakdown of skin
CPT/HCPCS: G0463

== ENCOUNTER 2024-09-24 08:56 | Outpatient (OUT) | payer MEDICARE, MEDICAID, SELFPAY | END 2024-09-24 08:57 | disposition home or self-care (01) | LOC: WC 08:56 | PROVIDERS: Visit Provider Physician Assistant | DX: E11.621 Type 2 diabetes mellitus with foot ulcer (principal); L97.421 Non-pressure chronic ulcer of left heel and midfoot limited to breakdown of skin | CPT/HCPCS: G0463 ==

== ENCOUNTER 2024-10-11 10:54 | Outpatient (OUT) | payer MEDICARE, MEDICAID, SELFPAY ==
--- OUTSIDE RECORDS SUMMARY | 2024-10-11 11:13 | XMS_ITS | CCD ---
Author Organization [facility] Care Team Providers Care Internet Marketing Coordinator Name Role Phone MARIANA SOLOMON Attending Unavailable HIGHLANDER, MARIANA Liu Admitting Unavailable HIGHLANDER, MARIANA Liu Attending Unavailable HIGHLANDERMARIANA Admitting Unavailable HIGHLANDER, MARIANA Liu Admitting Unavailable HIGHLANDERMARIANA Attending Unavailable SHANTANUCHET Admitting Unavailable SHANTANUCHET Attending Unavailable CARMENANDERMARIANA Admitting Unavailable HIGHLANDER, MARIANA Liu Attending Unavailable MARIANA SOLOMON Admitting Unavailable ZIEBERDR EDILSON Consulting Unavailable HIGHLANDER, MARIANA Liu Attending Unavailable HIGHLANDER, MARIANA Liu Consulting Unavailable HIGHLANDERMARIANA Admitting Unavailable HIGHLANDER, MARIANA Liu Consulting Unavailable HIGHLANDERMARIANA Attending Unavailable Services, [facility] Primary Care Provider Services, [facility] Primary Care Provider DIVYA GONZALES Attending Unavailable SERVICES, [facility] Primary Care Unava ilable DIVYA GONZALES Attending Unavailable DIVYA GONZALES Referring Unavailable SERVICES, [facility] Primary Care Unava ilable DIVYA GONZALES Attending Unavailable DIVYA GONZALES Referring Unavailable SERVICES, [facility] Primary Care Unava ilable BEBETO HAQ Attending Unavailable JACKIE BARRERA Referring Unavailable SERVICES, [facility] Primary Care Unava ilable BEBETO HAQ Attending Unavailable ALBER HYDE Referring Unavailable SERVICES, [facility] Primary Care Unava ilable BEBETO HAQ Attending Unavailable BEBETO HAQ Referring Unavailable SERVICES, [facility] Primary Care Unava ilable BEBEOT HAQ Attending Unavailable ALBER HYDE Referring Unavailable SERVICES, [facility] Primary Care Unava ilable SERVICES, [facility] Primary Care Unava ilable DIVYA GONZALES Attending Unavailable ALBER HYDE Admitting Unavailable ALBER HYDE Attending Unavailable ALBER HYDE Referring Unavailable ALBER HYDE Attending Unavailable ALBER HYDE Referring Unavailable SERVICES, [facility] Unava ilable IZZY SAM Referring Unavailable SERVICES, [facility] Unava ilable BEBETO HAQ Attending Unavailable ALBER HYDE Referring Unavailable SERVICES, [facility] Unava ilable MARIANA SOLOMON Referring Unavailable SERVICES, [facility] Unava ilable SERVICES, [facility] Unava ilable VANDANA BRAR Attending Unavailable SERVICES, [facility] Unava ilable SERVICES, [facility] Unava ilable EDILSON FERNANDES Attending Unavailable VANDANA BRAR Attending Unavailable VANDANA BRAR Referring Unavailable SERVICES, [facility] Unava ilable Services, [facility] Primary Care Provider GRETTA WHITLOCK Attending Unavailable MARIANA SOLOMON Referring Unavailable SERVICES, [facility] Unava ilable GRETTA WHITLOCK F Admitting Unavailable DEREK, MOHAMED F Attending Unavailable DEREK, MOHAMED F Referring Unavailable SERVICES, [facility] Unava ilable Bradley Saucedo Primary Care Provider BEBETO BEARD Attending Unavailable EDILSON GUZMAN Attending Unavailable Medications Current Medications Medication Drug Class(es) Dates Sig (Normalized) Sig (Original) 8 hr acetaminophen 650 mg extended release oral tablet (17 sources) take 1 tablet by mouth every [...] (six) hours as needed for pain. 04/09/2024 amiodarone hydrochloride 200 mg oral tablet (20 sources) Antiarrhythmic Start: 03-08-2023 End: 09-04-2024 take 1 tablet by mouth in the morning amiodarone (PACERONE) 200 mg tablet Take 1 tablet (200 mg total) by mouth in the morning. 90 tablet 3 09/04/2024 Active aspirin 81 mg delayed release oral tablet (20 sources) Platelet Aggregation Inhibitor, Nonsteroidal Anti-inflammatory Drug take 1 tablet by mouth in the morning aspirin 81 mg Take 1 tablet (81 mg total) by mouth in the morning. Active atorvastatin 20 mg oral tablet (7 sources) HMG-CoA Reductase Inhibitor Start: 09-02-2024 take 1 tablet by mouth in the morning atorvastatin (LIPITOR) 20 mg tablet Take 1 tablet (20 mg total) by mouth in the morning. 09/02/2024 Active cephalexin 500 mg oral capsule (2 sources) Cephalosporin Antibacterial cephalexin (Keflex) 500 MG capsule Take 500 mg by mouth in the morning and 500 mg at noon and 500 mg in the evening and 500 mg before bedtime. Active cholecalciferol 0.025 mg oral capsule (20 sources) Vitamin D Start: 09-09-2024 take 1 capsule by mouth once daily D3-1000 25 MCG (1000 UT) capsule Take 25 mcg by mouth Daily 09/09/2024 Active Start: 11-02-2023 End: 09-04-2024 take 1 capsule by mouth in the morning VITAMIN D3 25 mcg (1,000 unit) capsule Take 1 capsule (1,000 Units total) by mouth in the morning. 11/02/2023 09/04/2024 Discontinued (Therapy completed) End: 09-04-2024 take 1 tablet by mouth in the morning cholecalciferol (VITAMIN D3) 1,000 units tablet Take 1 tablet (1,000 Units total) by mouth in the morning. 09/04/2024 Discontinued (Therapy completed) take 1 tablet by handy th in the morning cholecalciferol, vitamin D3, 5,000 units tablet Take 1 tablet (5,000 Units total) by mouth in the morning. Active empagliflozin 25 mg oral tablet (20 sources) Sodium-Glucose Cotransporter 2 Inhibitor take 1 tablet by mouth in the morning empagliflozin (JARDIANCE) 25 mg tablet tablet Take 1 tablet (25 mg total) by mouth in the morning. Active Jardiance 25 MG 1 (one) time each day at the same time Active 3 ml insulin glargine 100 unt/ml pen injector (15 sources) Insulin Analog inject 32 [IU] by subcutaneous injection once daily insulin glargine (LANTUS, BASAGLAR) 100 unit/mL (3 mL) insulin pen Inject 32 Units under the skin nightly. Active inject 32 [IU] by gorman bcutaneous injection in the morning insulin glargine (LANTUS, BASAGLAR) 100 unit/mL (3 mL) insulin pen Inject 32 Units under the skin in the morning. Active magnesium oxide 400 mg oral tablet (19 sources) Start: 09-30-2024 magnesium oxid e (Mag-Ox) 400 MG tablet 09/30/2024 Active Start: 06-16-2021 End: 09-04-2024 take 1 tablet by mouth three times daily at mealtime magnesium oxide (MAG-OX) 400 mg tablet Indications: Hypomagnesemia Take 1 tablet (400 mg total) by mouth 3 (three) times a day with meals. 90 tablet 5 06/16/2021 09/04/2024 Discontinued (Therapy completed) 24 hr metFORMIN hydrochloride 500 mg extended release oral tablet (20 sources) Biguanide Start: 01-23-2018 take 2 tablets by mouth every twenty-four hours in the morning, then take 2 tablets by mouth at bedtime metFORMIN XR (GLUCOPHAGE-XR) 500 mg 24 hr tablet Take 2 tablets (1,000 mg total) by mouth in the morning and 2 tablets (1,000 mg total) before bedtime. 01/23/2018 Active take 1 tablet by handy th every twenty-four hours in the morning metFORMIN XR (Glucophage-XR) 500 MG 24 h r tablet Take 1,000 mg by mouth in the morning and 1,000 mg before bedtime. Active 24 hr metoprolol succinate 100 mg extended release oral tablet (20 sources) beta-Adrenergic Elsi Start: 06-19-2024 End: 07-22-2024 take 1 tablet by mouth every twenty-four hours in the morning metoprolol succinate XL (TOPROL XL) 100 mg 24 hr tablet Indications: Ventricular tachycardia (CMS-HCC) , Atrial fibrillation with RVR (CMS-HCC) , V-tach (CMS-HCC) TAKE 1 TABLET (100 MG TOTAL) BY MOUTH IN THE MORNING 90 tablet 07/22/2024 Active Start: 05-23-2024 take 1 tablet by handy [...] IN THE MORNING 30 tablet 05/23/2024 Active pantoprazole 40 mg delayed release oral tablet (15 sources) Proton Pump Inhibitor Start: 08-16-2021 take 1 tablet by mouth once daily before breakfast pantoprazole (PROTONIX) 40 mg EC tablet Take 1 tablet (40 mg total) by mouth every morning before breakfast. 30 tablet 3 08/16/2021 Active rivaroxaban 20 mg oral tablet (20 sources) Factor Xa Inhibitor Start: 05-19-2023 End: 02-21-2024 take 1 tablet by mouth in the morning XARELTO 20 mg tablet tablet Indications: Atrial fibrillation, unspecified type (CMS-HCC) TAKE 1 TABLET (20 MG TOTAL) BY MOUTH IN THE MORNING 90 tablet 1 02/21/2024 Active sertraline 50 mg oral tablet (20 sources) Serotonin Reuptake Inhibitor take 1 tablet by mouth in the morning sertraline (ZOLOFT) 50 mg tablet Take 1 tablet (50 mg total) by mouth in the morning. Active take 1 tablet by mouth in the mo rning sertraline (ZOLOFT) 25 mg tablet Take 1 tablet (25 mg total) by mouth in the morning. Active Completed/Discontinued Medications Medication Drug Class(es) Dates Sig (Normalized) Sig (Original) acetaminophen 325 mg / HYDROcodone bitartrate 5 mg oral tablet (14 sources) Opioid Agonist End: 5 take 1 tablet by mouth every six hours as needed for pain HYDROcodone-acetaminop hen (NORCO) 5-325 mg per tablet Take 1 tablet by mouth every 6 (six) hours as needed for pain. 09/04/2024 Discontinued (Therapy completed) carisoprodol 350 mg oral tablet (14 sources) Muscle Relaxant Start: 4 End: 5 take 1 tablet by mouth three times daily as needed for muscle spasms carisoprodoL (SOMA) 350 mg tablet Take 1 tablet (350 mg total) by mouth 3 (three) times a day as needed for muscle spasms. 12/28/2023 09/04/2024 Discontinued (Therapy completed) sodium hypochlorite 2.5 mg/ml topical solution (14 sources) End: sodium hypochlorite (DAKIN'S, HALF-STRENGTH,) 0.25 % external solution Apply 1 Application topically daily as needed for wound care (Use to clean left foot wound as instructed.). Use to clean left foot wound as instructed. 09/04/2024 Discontinued (Therapy completed) lactobacillus acidophilus [id number] unt / pectin 10 mg oral capsule (14 sources) End: take 1 capsule by mouth once daily at breakfast acidophilus-pectin, citrus 100 million cell-10 mg capsule Take by mouth daily with breakfast. 09/04/2024 Discontinued (Therapy completed) 1 ml methylPREDNISolone acetate 40 mg/ml injection (4 sources) Corticosteroid Start: End: methylPREDNISolone acetate (DEPO-Medrol) injection 40 mg Start: 10-02-2024 End: 10-02-2024 40 mg, Intra-articular, Once PRN Procedure, Starting on Mon10/02/24 at 1335, For 1 dose OZEMPIC 0.25 mg or 0.5 mg (2 mg/3 mL) pen injector (14 sources) Start: 11-28-2023 End: 09-04-2024 inject 0.5 mg by subcutaneous injection every week OZEMPIC 0.25 mg or 0.5 mg (2 mg/3 mL) pen injector Inject 0.5 mg under the skin once a week. 11/28/2023 09/04/2024 Discontinued (Therapy completed) Start: 11-28-2023 inject 0.5 mg by sub cutaneous injection every week OZEMPIC 0.25 mg or 0.5 mg (2 mg/3 mL) pen injector Inject 0.5 mg under the skin once a week. 11/28/2023 Active tamsulosin hydrochloride 0.4 mg oral capsule (19 sources) alpha-Adrenergic Elsi Start: 05-02-2020 End: 09-04-2024 take 1 capsule by mouth in the morning tamsulosin (FLOMAX) 0.4 mg capsule Take 1 capsule (0.4 mg total) by mouth in the morning. 05/02/2020 09/04/2024 Discontinued (Therapy completed) take 2 capsules by m outh once daily 30 minutes after mealtime tamsulosin (Flomax) 0.4 MG 24 hr capsule TAKE 2 CAPSULES BY MOUTH 30 MINS AFTER MEAL DAILY 90 Active Problems Active Problems Problem Classification Problem [...] of skin] Onset: 08-26-2022 Chronic Conduction disorders (20 sources) Automatic implantable cardiac defibrillator in situ; 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: [Presence of automatic (implantable) cardiac defibrillator] Onset: 12-04-2018 02-19-2019 Chronic Coronary atherosclerosis and other heart disease (20 sources) Coronary atherosclerosis; 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: [Atherosclerotic heart disease of cahto coronary artery without angina pectoris] Onset: 12-04-2018 12-04-2018 Chronic Diabetes mellitus with complications (20 sources) Type 2 diabetes mellitus with other skin ulcer; 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: [Type 2 diabetes mellitus with diabetic nephropathy] Onset: 04-18-2018 Chronic Disorders of lipid metabolism (17 sources) Pure hypercholesterolemia ; 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: [Pure hypercholesterolemia , unspecified] Onset: 12-04-2018 12-04-2018 Chronic E Codes: Fall (1 source) Fall Onset: 04-16-2024 Essential hypertension (19 sources) Essential (primary) hypertension; 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: [Essential hypertension] Onset: 11-17-2021 11-17-2021 Chronic Gangrene (5 sources) Critical lower limb ischemia ; 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: [Atherosclerosis of cahto arteries of extremities with gangrene, left leg] Onset: 09-26-2024 09-26-2024 Chronic Genitourinary symptoms and ill-defined conditions (16 sources) Functional urinary incontinence; 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: [Functional urinary [...] caused by tuberculosis or sexually transmitted disease) (16 sources) Osteomyelitis; 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: [Osteomyelitis, unspecified] Onset: 11-17-2021 11-17-2021 Chronic Nutritional deficiencies (1 source) Vitamin D deficiency, unspecified; 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: [VITAMIN D DEFICIENCY UNSPECIFIED] Onset: 08-26-2022 Chronic Osteoarthritis (3 sources) Unilateral primary osteoarthritis, right knee; 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: [Arthritis of right knee] Onset: 09-13-2024 10-02-2024 Chronic Other aftercare (1 source) Long-term current use of drug therapy; 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: [Encounter for therapeutic drug level monitoring] 09-04-2024 Episodic Other aftercare (1 source) Encounter for therapeutic drug level monitoring; 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: [Encounter for therapeutic drug level monitoring] Onset: 09-04-2024 Episodic Other aftercare (1 source) Other terminal supervisor (current) drug therapy; 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: [Other longterm (current) drug therapy] Onset: 09-04-2024 Episodic Other bone disease and musculoskeletal deformities (2 sources) History of amputation of left foot; 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: [Acquired absence of left foot] 10-04-2024 Chronic Other circulatory disease (4 sources) Other [...] IN LEFT FOOT] Onset: 08-09-2022 Episodic Other non-traumatic joint disorders (2 sources) Arthritis of right knee 10-02-2024 Chronic Other non-traumatic joint disorders (3 sources) Pain in right knee; 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: [Pain in joint, lower leg] Onset: 09-13-2024 10-02-2024 Episodic Other non-traumatic joint disorders (1 source) Knee pain Onset: 09-13-2024 Episodic Other non-traumatic joint disorders (4 sources) Effusion of right knee joint; 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: [Effusion, right knee] 10-02-2024 Episodic Other nutritional; endocrine; and metabolic disorders (16 sources) Hypomagnesemia; 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: [Hypomagnesemia] Onset: 11-17-2021 11-17-2021 Chronic Peripheral and visceral atherosclerosis (3 sources) Peripheral vascular disease, unspecified; 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: [Peripheral vascular disease] Onset: 08-26-2022 09-26-2024 Chronic Skin and subcutaneous tissue infections (2 sources) Paronychia of toe of right foot; 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: [Cellulitis of right toe] 10-04-2024 Episodic Spondylosis; intervertebral disc disorders; other back problems (16 sources) Lumbosacral spondylosis without myelopathy; 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: [Spondylosis without myelopathy or radiculopathy, lumbosacral region] Onset: 02-22-2024 05-03-2024 Chronic Unclassified (1 source) CHRN KIDNEY DISEASE STG 3 UNSP; 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: [CHRN KIDNEY DISEASE STG 3 UNSP] Onset: 09-21-2022 Unclassified (1 source) Device Check Onset: 09-04-2024 Unclassified (1 source) Ventricular tachycardia, unspecified; 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: [Ventricular tachycardia, unspecified] Onset: 12-16-2019 Unclassified (1 source) ems Onset: 12-26-2023 Unclassified (1 source) New patient Referral for bilateral lower extremities blood Onset: 09-26-2024 Unclassified (1 source) critical limb ischemia Onset: 09-27-2024 Past or Other Problems Problem Classification Problem Date Documented Date Episodic/Chronic Abdominal pain (1 source) Flank pain Onset: 12-26-2023 Episodic Complications of surgical procedures or medical care (16 sources) Non-healing surgical wound; 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: [Other complications of procedures, not elsewhere classified, initial encounter] Onset: 10-01-2021 10-01-2021 Episodic E Codes: Fall (1 source) Unspecified fall, initial encounter; 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: [Unspecified fall, initial encounter] Onset: 04-16-2024 Episodic Genitourinary symptoms and ill-defined conditions (16 sources) Scot hematuria; 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: [Gross hematuria] Onset: 09-15-2021 09-15-2021 Episodic Nonspecific chest pain (16 sources) Chest pain; 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: [Chest pain, unspecified] Onset: 11-22-2017 11-22-2017 Episodic Open wounds of head; neck; and trunk (16 sources) Open wound of scalp ; 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: [Unspecified open wound of scalp, initial encounter] Onset: 03-02-2018 03-02-2018 Episodic Other acquired deformities (1 source) Spondylolysis; 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: [Spondylolysis, lumbar region] 01-09-2024 Episodic Other connective tissue disease (16 sources) Myositis; 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: [Myositis, unspecified] Onset: 08-10-2021 08-10-2021 Episodic Other eye disorders (16 sources) Degenerative changes of anterior chamber angle; 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: [Degeneration of chamber angle, unspecified eye] Onset: 11-17-2021 11-17-2021 Episodic Other screening for suspected conditions (not mental disorders or infectious disease) (1 source) Other specified abnormal findings of blood chemistry; 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: [Other specified abnormal findings of blood chemistry] Onset: 05-09-2024 Episodic Other upper respiratory disease (1 source) Epistaxis; 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: [Epistaxis] Onset: 04-16-2024 Episodic Skull and face fractures (1 source) Fracture of nasal bones, initial encounter for closed fracture; 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: [Fracture of nasal bones, initial encounter for closed fracture] Onset: 04-16-2024 Episodic Spondylosis; intervertebral disc disorders; other back problems (4 sources) Lumbar radiculopathy; 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: [Radiculopathy, lumbar region] Onset: 12-26-2023 02-22-2024 Episodic Results Test Name Value Interpretation Reference Range Facility No Panel Informationon 10-02 [facility] 10/02/2024 2:10 PM L Inj/Asp: R knee on 10/02/2024 1:35 PM Indications: pain Details: 22 G needle, anterolateral approach Medications: 40 mg methylPREDNISolone acetate 40 MG/ML Outcome: tolerated well, no immediate complications E UTILIZING ASEPTIC TECHNIQUE PT GIVEN INJECTION IN RIGHT KNEE, NEUROVASC INTACT S/P INJ, TOLERATED WELL Procedure, treatment alternatives, risks and benefits explained, specific risks discussed. Consent was given by the patient. [facility] Glucose (Bld) [Mass/Vol]on 0 09-27-2024 Urea nitrogen [Mass/Vol] 19 mg/dL Normal 6-27 [facility] XR KNEE RT 3 VWSon 5 XR KNEE RT 3 VWS XR KNEE RT 3 VWS XR KNEE RT 3 VWS INDICATION: pain, effusion. Right knee pain FINDINGS: Atherosclerotic vascular calcification. Suprapatellar joint effusion. Bipartite patella. No acute fracture or dislocation. Tricompartmental degenerative changes with joint space narrowing, sclerosis, spur formation, and chondrocalcinosis. IMPRESSION: 1. No acute fracture or dislocation. 2. Small suprapatellar joint effusion with moderate tricompartmental degenerative changes as above. Finalized by Sandro Alfonso MD on 09/13/2024 12:54 PM Normal [facility] Device Interrogationon 09-04 [facility] Radiology Study observation (narrative) [facility] POCT EKGon 09-04-2024 [facility] CBC AND AUTO DIFFon 07-22-19 25 ABSOLUTE BASOPHIL 0.0 X10E9/L Normal 0.0-0.2 [facility] Comment on above: Performed By: #### Jerry VARNER, 1988-11 #### [facility] ([id number]) [address] [place] [address] [id number] ABSOLUTE NEUTROPHIL 3.8 X10E9/L Normal 1.5-6.6 [facility] Comment on above: Performed By: #### Jerry VARNER 1988-11 #### [facility] ([id number]) [address] [place] [address]15 Basophils/100 WBC (Bld) 0.8 % Normal [facility] Comment on above: Performed By: ###Marielena Edwards BCA 1988-11 #### [facility] ([id number]) [address] [place] [address] 18621 Eosinophils (Bld) [#/Vol] 0.0 10*3/uL Normal 0.0-0.4 [facility] Comment on above: Performed By: #### Jerry VARNER, 1988-11 #### [facility] ([id number]) [address] [place] [address] 46739 Eosinophils/100 WBC (Bld) 0.7 % Normal [facility] Comment on above: Performed By: #### Jerry VARNER, 1988-11 #### [facility] ([id number]) [address] [place] [address] [id number] Erythrocyte distribution width (RBC) [Ratio] 14.6 % Normal 11.5-15.0 [facility] Comment on above: Performed By: #### Jerry VARNER, 1988-11 #### [facility] ([id number]) [address] [place] [address] 21614 Hematocrit (Bld) [Volume fraction] 42.0 % Normal 39-49 [facility] Comment on above: Performed By: #### Jerry VARNER, 1988-11 #### [facility] ([id number]) [address] [place] [address] 07507 Hemoglobin (Bld) [Mass/Vol] 13.9 g/dL Normal 13.0-17.0 [facility] Comment on above: Performed By: #### Jerry VARNER, 1988-11 #### [facility] ([id number]) [address] [place] [address] 97272 Lymphocytes (Bld) [#/Vol] 1.5 10*3/uL Normal 1.0-3.5 [facility] Comment on above: Performed By: #### Jerry VARNER, 1988-11 #### [facility] ([id number]) [address] [place] [address] 49406 Lymphocytes/100 WBC (Bld) 24.7 % Normal [facility] Comment on above: Performed By: #### Jerry VARNER, 1988-11 #### [facility] ([id number]) [address] [place] [address] 90800 MCH (RBC) [Entitic mass] 30.7 pg Normal 27-34 [facility] Comment on above: Performed By: #### Jerry VARNER, 1988-11 #### [facility] ([id number]) [address] [place] [address] 74282 MCHC (RBC) [Mass/Vol] 33.0 g/dL Normal 32-36 [facility] Comment on above: Performed By: #### Jerry VARNER, 1988-11 #### [facility] ([id number]) [address] [place] [address] 90514 MCV (RBC) [Entitic vol] 93 fL Normal 80-100 [facility] Comment on above: Performed By: #### Jerry VARNER, 1988-11 #### [facility] ([id number]) [address] [place] [address] 39954 Monocytes (Bld) [#/Vol] 0.6 10*3/uL Normal 0-0.9 [facility] Comment on above: Performed By: #### Jerry VARNER, 1988-11 #### [facility] ([id number]) [address] [place] [address] 78328 Monocytes/100 WBC (Bld) 9.7 % Normal [facility] Comment on above: Performed By: #### Jerry VARNER, 1988-11 #### [facility] ([id number]) [address] [place] [address] 14489 Neutrophils/100 WBC (Bld) 64.1 % Normal [facility] Comment on above: Performed By: #### Jerry VARNER, 1988-11 #### [facility] ([id number]) [address] [place] [address] [place] [address] Platelet mean volume (Bld) [Entitic vol] 8.2 fL Normal 7-12 [facility] Comment on above: Performed By: #### Jerry VARNER, 1988-11 #### [facility] ([id number]) [address] [place] [address] 58608 Platelets (Bld) [#/Vol] 315 10*3/uL Normal 150-450 [facility] Comment on above: Performed By: #### Jerry VARNER, 1988-11 #### [facility] ([id number]) [address] [place] [address] 12831 RBC COUNT 4.52 X10E12/L Normal 4.10-5.70 [facility] Comment on above: Performed By: #### Jerry VARNER, 1988-11 #### [facility] ([id number]) [address] [place] [address] 84568 WBC (Bld) [#/Vol] 5.9 10*3/uL Normal 4.0-11.0 [facility] Comment on above: Performed By: #### Jerry VARNER, 1988-11 #### [facility] ([id number]) [address] [place] [address] 79517 CRP [Mass/Vol]on 07-22-2024 C REACTIVE PROTEIN 1.9 mg/dL High 0.000-0.744 [facility] Comment on above: Performed By: #### Jerry VARNER, 1988-11 #### [facility] ([id number]) [address] [place] [address] 02122 ESR Photometric method (Bld) [Velocity]on 07-22-2024 ESR, ERYTHROCYTE SEDIMENTATION RATE 47 mm/h High 0-20 [facility] [facility] Comment on above: Performed By: #### H A1C, 84827-8 #### [facility] ([id number]) [address] [place] [address], [address] [place] [address] HGB A1C (GLYCO-HGB)on 2024 Glucose [Mass/Vol] 203 mg/dL Normal [facility] Comment on above: Performed By: #### H A1C, 14924-2 #### [facility] ([id number]) [address], [address] [place] [address] HbA1c (Bld) [Mass fraction] 8.7 % High 4.4-5.6 [facility] Comment on above: Result Comment: NOTE ADA Guidelines Result HgbA1c Normal : less than 5.7 % Prediabetes : 5.7 % to 6.4 % Diabetes : > 6.4 % Use with caution in patients with abnormal hemoglobin variants as the half-life of red blood cells and in vivo glycation rates are affected. Performed By: #### H A1C, 62228-5 #### [facility] ([id number]) [address], [address] [place] [address] COMPREHENSIVE METABOLIC PANE Alex 05-09-2024 Albumin [Mass/Vol] 4.2 g/dL Normal 3.2-5.3 [facility] Comment on above: Performed By: #### 2 4331-1 #### [facility] ([id number]) [address], [address] [place] [address] #### ANNE, TSHR #### [facility] ([id number]) [address] [place] [address]183 ALP [Catalytic activity/Vol] 46 U/L Normal 39-130 [facility] Comment on above: Performed By: #### 2 4331-1 #### [facility] ([id number]) [address], [address] [place] [address] #### CMP, TSHR #### [facility] ([id number]) [address] [place] [address] 74727 ALT [Catalytic activity/Vol] 16 U/L Normal 0-40 [facility] Comment on above: Performed By: #### 2 4331-1 #### [facility] ([id number]) [address] [facility], [address] [place] [address] #### CMP, TSHR #### [facility] ([id number]) [address] [place] [address]88 Anion gap [Moles/Vol] 10 mmol/L Normal 5-15 [facility] Comment on above: Performed By: #### 2 4331-1 #### [facility] ([id number]) [address] [facility], [address] [place] [address] #### CMP, TSHR #### [facility] ([id number]) [address] [place] [address] 09143 AST [Catalytic activity/Vol] 16 U/L Normal 0-41 [facility] Comment on above: Performed By: #### 2 4331-1 #### [facility] ([id number]) [address] [facility], [address] [place] [address] #### CMP, TSHR #### [facility] ([id number]) [address] [place] [address]2472 Bilirubin [Mass/Vol] 0.5 mg/dL Normal 0.3-1.2 [facility] Comment on above: Performed By: #### 2 4331-1 #### [facility] ([id number]) [address] [facility], [address] [place] [address] #### CMP, TSHR #### [facility] ([id number]) [address] [place] [address]60 Calcium [Mass/Vol] 9.3 mg/dL Normal 8.5-10.5 [facility] Comment on above: Performed By: #### 2 4331-1 #### [facility] ([id number]) [address], [address] [place] [address] #### CMP, TSHR #### [facility] ([id number]) [address] [place] [address] 67611 Chloride [Moles/Vol] 99 mmol/L Normal 98-109 [facility] Comment on above: Performed By: #### 2 4331-1 #### [facility] ([id number]) [address] [facility], [address] [place] [address] #### CMP, TSHR #### [facility] ([id number]) [address] [place] [address] 03045 CO2 [Moles/Vol] 26 mmol/L Normal 22-32 [facility] Comment on above: Performed By: #### 2 4331-1 #### [facility] ([id number]) [address] [facility], [address] [place] [address] #### CMP, TSHR #### [facility] ([id number]) [address] [place] [address] 93691 Creatinine [Mass/Vol] 1.27 mg/dL High 0.70-1.20 [facility] Comment on above: Result Comment: METH OD TRACEABLE TO IDMS STANDARD Performed By: #### 2 4331-1 #### [facility] ([id number]) [address], [address] [place] [address] #### CMP, TSHR #### [facility] ([id number]) [address] [place] [address]679 GFR/1.73 sq M.predicted among non-blacks MDRD (S/P/Bld) [Vol rate/Area] 61 mL/min/{1.73_m2} Normal >59 [facility] Comment on above: Result Comment: Reported eGFR is based on the CKD-EPI 2020 equation that does not use a race coefficient. Performed By: #### 2 4331-1 #### [facility] ([id number]) [address], [address] [place] [address] #### CMP, TSHR #### [facility] ([id number]) [address] [place] [address] 19120 Glucose [Mass/Vol] 177 mg/dL High 65-99 [facility] Comment on above: Performed By: #### 2 4331-1 #### [facility] ([id number]) [address] [facility], [address] [place] [address] #### CMP, TSHR #### [facility] ([id number]) [address] [place] [address] 31160 Potassium [Moles/Vol] 4.5 mmol/L Normal 3.5-5.0 [facility] Comment on above: Performed By: #### 2 4331-1 #### [facility] ([id number]) [address] [facility], [address] [place] [address] #### CMP, TSHR #### [facility] ([id number]) [address] [place] [address] 96446 Protein [Mass/Vol] 7.6 g/dL Normal 6.0-8.0 [facility] Comment on above: Performed By: #### 2 4331-1 #### [facility] ([id number]) [address], [address] [place] [address] #### CMP, TSHR #### [facility] ([id number]) [address] [place] [address] 99020 Sodium [Moles/Vol] 135 mmol/L Normal 134-146 [facility] Comment on above: Performed By: #### 2 4331-1 #### [facility] ([id number]) [facility] [facility], [address] [place] [address] #### CMP, TSHR #### [facility] ([id number]) [address] [place] [address] 56845 Urea nitrogen [Mass/Vol] 24 mg/dL Normal 5-27 [facility] Comment on above: Performed By: #### 2 4331-1 #### [facility] ([id number]) [address] [place] [address], [address] [place] [address] #### CMP, TSHR #### [facility] ([id number]) [address] [place] [address] 11326 Lipid 1996 panelon 4 Cholesterol [Mass/Vol] 137 mg/dL Low 150-200 [facility] Comment on above: Performed By: #### 2 4331-1 #### [facility] ([id number]) [address] [place] [address], [address] [place] [address] #### CMP, TSHR #### [facility] ([id number]) [address] [place] [address] 68591 Cholesterol in HDL [Mass/Vol] 32 mg/dL Low >39 [facility] Comment on above: Result Comment: HDL <40 mg/dL - High Risk HDL > or = 40mg/dL- Desirable HDL >60 mg/dL - Negative Risk Performed By: #### 2 4331-1 #### [facility] ([id number]) [address] [place] [address], [address] [place] [address] #### CMP, TSHR #### [facility] ([id number]) [address] [place] [address] 50547 Cholesterol in LDL [Mass/Vol] 50 mg/dL Normal <130 [facility] Comment on above: Result Comment: LDL <100 mg/dL - Desirable LDL >160 mg/dL - High Risk Performed By: #### 2 4331-1 #### [facility] ([id number]) [address], [address] [place] [address] #### CMP, TSHR #### [facility] ([id number]) [address] [place] [address] 93151 Cholesterol in VLDL [Mass/Vol] 55 mg/dL High 0-30 [facility] Comment on above: Performed By: #### 2 4331-1 #### [facility] ([id number]) [address], [address] [place] [address] #### CMP, TSHR #### [facility] ([id number]) [address] [place] [address] 06405 CHOLESTEROL:HDL 4.3 Normal 1.0-5.0 [facility] Comment on above: Performed By: #### 2 4331-1 #### [facility] ([id number]) [address], [address] [place] [address] #### CMP, TSHR #### [facility] ([id number]) [address] [place] [address] 96338 Triglyceride [Mass/Vol] 275 mg/dL High 27-150 [facility] Comment on above: Performed By: #### 2 4331-1 #### [facility] ([id number]) [address], [address] [place] [address] #### CMP, TSHR #### [facility] ([id number]) [address] [place] [address] 45180 TSH WITH REFLEXon 05-09-2024 TSH 4.67 uIU/mL Normal 0.49-4.67 [facility] Comment on above: Performed By: #### 2 4331-1 #### [facility] ([id number]) [address], [address] [place] [address] #### CMP, TSHR #### [facility] ([id number]) [address] [place] [address] 64717 BASIC METABOLIC PANLon 04-16 Anion gap [Moles/Vol] 10 mmol/L Normal 5-15 [facility] Comment on above: Performed By: #### 2 4331-1 #### [facility] ([id number]) [address], [address] [place] [address] #### CMP, TSHR #### [facility] ([id number]) [address] [place] [address] 82368 Calcium [Mass/Vol] 9.3 mg/dL Normal 8.5-10.5 [facility] Comment on above: Performed By: #### 2 4331-1 #### [facility] ([id number]) [address], [address] [place] [address] #### CMP, TSHR #### [facility] ([id number]) [address] [place] [address] 17371 Chloride [Moles/Vol] 101 mmol/L Normal 98-109 [facility] Comment on above: Performed By: #### 2 4331-1 #### [facility] ([id number]) [address], [address] [place] [address] #### CMP, TSHR #### [facility] ([id number]) [address] [place] [address] 64266 CO2 [Moles/Vol] 27 mmol/L Normal 22-32 [facility] Comment on above: Performed By: #### 2 4331-1 #### [facility] ([id number]) [address], [address] [place] [address] #### ANNE, TSHR #### [facility] ([id number]) [address] [place] [address] Creatinine [Mass/Vol] 1.19 mg/dL Normal 0.70-1.20 [facility] Comment on above: Result Comment: METH OD TRACEABLE TO IDMS STANDARD Performed By: #### 2 4331-1 #### [facility] ([id number]) [address] [facility], [address] [place] [address] #### ANNE, TSHR #### [facility] ([id number]) [address] [place] [address] 30569 GFR/1.73 sq M.predicted among non-blacks MDRD (S/P/Bld) [Vol rate/Area] 66 mL/min/{1.73_m2} Normal >59 [facility] Comment on above: Result Comment: Reported eGFR is based on the CKD-EPI 2020 equation that does not use a race coefficient. Performed By: #### 2 4331-1 #### [facility] ([id number]) [address], [address] [place] [address] #### ANNE, TSHR #### [facility] ([id number]) [address] [place] [address] 57033 Glucose [Mass/Vol] 165 mg/dL High 65-99 [facility] Comment on above: Performed By: #### 2 4331-1 #### [facility] ([id number]) [address], [address] [place] [address] #### CMP, TSHR #### [facility] ([id number]) [address] [place] [address] 14906 Potassium [Moles/Vol] 4.2 mmol/L Normal 3.5-5.0 [facility] Comment on above: Performed By: #### 2 4331-1 #### [facility] ([id number]) [address] [facility], [address] [place] [address] #### CMP, TSHR #### [facility] ([id number]) [address] [place] [address] 03910 Sodium [Moles/Vol] 138 mmol/L Normal 134-146 [facility] Comment on above: Performed By: #### 2 4331-1 #### [facility] ([id number]) [address] [facility], [address] [place] [address] #### CMP, TSHR #### [facility] ([id number]) [address] [place] [address] 62791 Urea nitrogen [Mass/Vol] 17 mg/dL Normal 5-27 [facility] Comment on above: Performed By: #### 2 4331-1 #### [facility] ([id number]) [address] [facility], [address] [place] [address] #### CMP, TSHR #### [facility] ([id number]) [address] [place] [address] 03277 CBC AND AUTO DIFFon 10-15-20 24 ABSOLUTE BASOPHIL 0.0 X10E9/L Normal 0.0-0.2 [facility] Comment on above: Performed By: #### 2 4331-1 #### [facility] ([id number]) [address] [facility], [address] [place] [address] #### CMP, TSHR #### [facility] ([id number]) [address] [place] [address] 87382 ABSOLUTE NEUTROPHIL 4.0 X10E9/L Normal 1.5-6.6 [facility] Comment on above: Performed By: #### 2 4331-1 #### [facility] ([id number]) [address], [address] [place] [address] #### CMP, TSHR #### [facility] ([id number]) [address] [place] [address] 78460 Basophils/100 WBC (Bld) 0.5 % Normal [facility] Comment on above: Performed By: #### 2 4331-1 #### [facility] ([id number]) [address], [address] [place] [address] #### CMP, TSHR #### [facility] ([id number]) [address] [place] [address] 55722 Eosinophils (Bld) [#/Vol] 0.0 10*3/uL Normal 0.0-0.4 [facility] Comment on above: Performed By: #### 2 4331-1 #### [facility] ([id number]) [address], [address] [place] [address] #### CMP, TSHR #### [facility] ([id number]) [address] [place] [address] 21492 Eosinophils/100 WBC (Bld) 0.4 % Normal [facility] Comment on above: Performed By: #### 2 4331-1 #### [facility] ([id number]) [address], [address] [place] [address] #### CMP, TSHR #### [facility] ([id number]) [address] [place] [address] 37504 Erythrocyte distribution width (RBC) [Ratio] 15.7 % High 11.5-15.0 [facility] Comment on above: Performed By: #### 2 4331-1 #### [facility] ([id number]) [address], [address] [place] [address] #### CMP, TSHR #### [facility] ([id number]) [address] [place] [address] 51724 Hematocrit (Bld) [Volume fraction] 39.9 % Normal 39-49 [facility] Comment on above: Performed By: #### 2 4331-1 #### [facility] ([id number]) [address] [facility], [address] [place] [address] #### CMP, TSHR #### [facility] ([id number]) [address] [place] [address] 92036 Hemoglobin (Bld) [Mass/Vol] 13.1 g/dL Normal 13.0-17.0 [facility] Comment on above: Performed By: #### 2 4331-1 #### [facility] ([id number]) [address] [facility], [address] [place] [address] #### CMP, TSHR #### [facility] ([id number]) [address] [place] [address] 01351 Lymphocytes (Bld) [#/Vol] 1.1 10*3/uL Normal 1.0-3.5 [facility] Comment on above: Performed By: #### 2 4331-1 #### [facility] ([id number]) [address] [facility], [address] [place] [address] #### CMP, TSHR #### [facility] ([id number]) [address] [place] [address] 45009 Lymphocytes/100 WBC (Bld) 18.2 % Normal [facility] Comment on above: Performed By: #### 2 4331-1 #### [facility] ([id number]) [address] [facility], [address] [place] [address] #### CMP, TSHR #### [facility] ([id number]) [address] [place] [address] 36374 MCH (RBC) [Entitic mass] 30.6 pg Normal 27-34 [facility] Comment on above: Performed By: #### 2 4331-1 #### [facility] ([id number]) [address], [address] [place] [address] #### CMP, TSHR #### [facility] ([id number]) [address] [place] [address] 13381 MCHC (RBC) [Mass/Vol] 32.8 g/dL Normal 32-36 [facility] Comment on above: Performed By: #### 2 4331-1 #### [facility] ([id number]) [address], [address] [place] [address] #### CMP, TSHR #### [facility] ([id number]) [address] [place] [address] 16657 MCV (RBC) [Entitic vol] 93 fL Normal 80-100 [facility] Comment on above: Performed By: #### 2 4331-1 #### [facility] ([id number]) [address], [address] [place] [address] #### CMP, TSHR #### [facility] ([id number]) [address] [place] [address] 51601 Monocytes (Bld) [#/Vol] 0.8 10*3/uL Normal 0-0.9 [facility] Comment on above: Performed By: #### 2 4331-1 #### [facility] ([id number]) [address], [address] [place] [address] #### CMP, TSHR #### [facility] ([id number]) [address] [place] [address] 70703 Monocytes/100 WBC (Bld) 13.5 % Normal [facility] Comment on above: Performed By: #### 2 4331-1 #### [facility] ([id number]) [address], [address] [place] [address] #### CMP, TSHR #### [facility] ([id number]) [address] [place] [address] 72476 Neutrophils/100 WBC (Bld) 67.4 % Normal [facility] Comment on above: Performed By: #### 2 4331-1 #### [facility] ([id number]) [address] [facility], [address] [place] [address] #### CMP, TSHR #### [facility] ([id number]) [address] [place] [address] 64691 Platelet mean volume (Bld) [Entitic vol] 7.4 fL Normal 7-12 [facility] Comment on above: Performed By: #### 2 4331-1 #### [facility] ([id number]) [address], [address] [place] [address] #### CMP, TSHR #### [facility] ([id number]) [address] [place] [address] 10410 Platelets (Bld) [#/Vol] 284 10*3/uL Normal 150-450 [facility] Comment on above: Performed By: #### 2 4331-1 #### [facility] ([id number]) [address], [address] [place] [address] #### CMP, TSHR #### [facility] ([id number]) [address] [place] [address] 15237 RBC COUNT 4.27 X10E12/L Normal 4.10-5.70 [facility] Comment on above: Performed By: #### 2 4331-1 #### [facility] ([id number]) [address] [facility], [address] [place] [address] #### CMP, TSHR #### [facility] ([id number]) [address] [facility] [place] [address] WBC (Bld) [#/Vol] 5.9 10*3/uL Normal 4.0-11.0 [facility] Comment on above: Performed By: #### 2 4331-1 #### [facility] ([id number]) [address] [facility], [address] [place] [address] #### CMP, TSHR #### [facility] ([id number]) [address] [facility], [place] [address] CT BRAIN WO CONTon CT BRAIN WO [...] Avila DO on 04/16/2024 2:16 PM Normal [facility] CT CERVICAL SPINE WO CONTon 04-16-2024 CT [...] Avila DO on 04/16/2024 2:24 PM Normal [facility] CT FACIAL BONES WO CONTon CT FACIAL [...] Morris Lau on 04/16/2024 2:30 PM Normal [facility] PROTIME AND INRon 04-16-2024 INR Coag (PPP) [Relative time] 2.1 {INR} High 0.8-1.1 [facility] Comment on above: Performed By: #### 2 4331-1 #### [facility] ([id number]) [address] [facility], [address] [place] [address] #### CMP, TSHR #### [facility] ([id number]) [address] [place] [address], [place] [address] PT Coag (PPP) [Time] 23.7 s High 9.8-13.2 [facility] Comment on above: Result Comment: NEW REFERENCE RANGE Performed By: #### 2 4331-1 #### [facility] ([id number]) [address], [address] [place] [address] #### CMP, TSHR #### [facility] ([id number]) [address] [place] [address] aPTT Coag (PPP) [Time]on aPTT Coag (Bld) [Time] 48 s High 26-37 [facility] Comment on above: Result Comment: NEW REFERENCE RANGE Performed By: #### 2 4331-1 #### [facility] ([id number]) [address], [address] [place] [address] #### CMP, TSHR #### [facility] ([id number]) [address] [place] [address] MR LUMBAR SPINE WO CONTon MR LUMBAR [...] Stephens MD on 04/01/2024 10:47 PM Normal [facility] XR HIP LT 2-3 VIEWS W OR [...] Jaramillo MD on 12/26/2023 10:07 AM Normal [facility] XR SPINE LUMBAR 2 OR 3 VWSon [...] Jaramillo MD on 12/26/2023 10:10 AM Normal [facility] Vital Signs Date Time Vital Sign Value Performing Clinician Facility 10-10-2024 10:53-0400 Body height 175.3 cm Gretta Whitlock MD Work Phone: [facility] 10-10-2024 10:53-0400 Body mass index (BMI) [Ratio] 26.58 kg/m2 Gretta Whitlock MD Work Phone: [facility] 10-10-2024 10:53-0400 Body weight 81.65 kg Gretta Whitlock MD Work Phone: [facility] 10-10-2024 10:53-0400 Diastolic blood pressure 72 mm[Hg] Gretta Whitlock MD Work Phone: [facility] 10-10-2024 10:53-0400 Heart rate 59 /min Gretta Whitlock MD Work Phone: [facility] 10-10-2024 10:53-0400 SaO2% (BldA) [Mass fraction] 99 % Gretta Whitlock MD Work Phone: [facility] 10-10-2024 10:53-0400 Systolic blood pressure 126 mm[Hg] Gretta Whitlock MD Work Phone: [facility] 10-04-2024 11:29-0400 Body height 175.3 cm Edilson Guzman DPM Work Phone: [facility] 10-04-2024 11:29-0400 Body mass index (BMI) [Ratio] 26.58 kg/m2 Edilson Guzman DPM Work Phone: [facility] 10-04-2024 11:29-0400 Body temperature 97.7 [degF] Edilson Guzman DPM Work Phone: [facility] 10-04-2024 11:29-0400 Body weight 81.65 kg Edilson Guzman DPM Work Phone: [facility] 10-02-2024 13:11-0400 Body height 175.3 cm Bebeto Beard PA Work Phone: [facility] 10-02-2024 13:11-0400 Body mass index (BMI) [Ratio] 26.58 kg/m2 Bebeto LEON Work Phone: [facility] 10-02-2024 13:11-0400 Body weight 81.65 kg Bebeto LEON Work Phone: [facility] 09-26-2024 09:37-0400 Body height 175.3 cm Gretta Whitlock MD Work Phone: [facility] 09-26-2024 09:37-0400 Body mass index (BMI) [Ratio] 26.58 kg/m2 Gretta Whitlock MD Work Phone: [facility] 09-26-2024 09:37-0400 Body temperature 97.7 [degF] Gretta Whitlock MD Work Phone: [facility] 09-26-2024 09:37-0400 Body weight 81.65 kg Gretta Whitlock MD Work Phone: [facility] 09-26-2024 09:37-0400 Diastolic blood pressure 80 mm[Hg] Gretta Wihtlock MD Work Phone: [facility] 09-26-2024 09:37-0400 Heart rate 60 /min Gretta Whitlock MD Work Phone: [facility] 09-26-2024 09:37-0400 SaO2% (BldA) [Mass fraction] 98 % Gretta Whitlock MD Work Phone: [facility] [employer] [facility] 09-26-2024 09:37-0400 Systolic blood pressure 130 mm[Hg] Gretta Whitlock MD Work Phone: [facility] [employer] [facility] 09-04-2024 12:58-0500 Body height 175.3 cm Vandana Brar [employer] SUPERVISOR-TESTING CONSULTANT Work Phone: [facility] [employer] [facility] 09-04-2024 12:58-0500 Body mass index (BMI) [Ratio] 27.02 kg/m2 Vandana Brar [employer] SUPERVISOR-TESTING CONSULTANT Work Phone: [facility] [employer] [facility] 09-04-2024 12:58-0500 Body weight 83.01 kg Vandana Brar [employer] SUPERVISOR-TESTING CONSULTANT Work Phone: [facility] [employer] [facility] 09-04-2024 12:58-0500 Diastolic blood pressure 72 mm[Hg] Vandana Brar [employer] SUPERVISOR-TESTING CONSULTANT Work Phone: [facility] [employer] [facility] 09-04-2024 12:58-0500 Heart rate 54 /min Vandana Brar [employer] SUPERVISOR-TESTING CONSULTANT Work Phone: [facility] [employer] [facility] 09-04-2024 12:58-0500 SaO2% (BldA) [Mass fraction] 97 % Vandana Brar [employer] SUPERVISOR-TESTING CONSULTANT Work Phone: [facility] [employer] [facility] 09-04-2024 12:58-0500 Systolic blood pressure 120 mm[Hg] Vandana Brar [employer] SUPERVISOR-TESTING CONSULTANT Work Phone: [facility] [employer] [facility] 05-23-2024 11:55-0500 Diastolic blood pressure 73 mm[Hg] Bebeto LEON Work Phone: [facility] [employer] [facility] 05-23-2024 11:55-0500 Heart rate 71 /min Bebeto LEON Work Phone: [facility] [employer] [facility] 05-23-2024 11:55-0500 Respiratory rate 20 /min Bebeto LEON Work Phone: [facility] [employer] [facility] 05-23-2024 11:55-0500 SaO2% (BldA) [Mass fraction] 100 % Bebeto Nienberg PA Work Phone: [facility] [employer] [facility] 05-23-2024 11:55-0500 Systolic blood pressure 145 mm[Hg] Bebeto Nienberg PA Work Phone: [facility] [employer] [facility] 04-09-2024 10:12-0400 Body height 175.3 cm Bebeto Nienberg PA Work Phone: [facility] [employer] [facility] Comment on above: stated 04-09-2024 10:12-0400 Body mass index (BMI) [Ratio] 27.62 kg/m2 Bebeto Nienberg PA Work Phone: [facility] [employer] [facility] 04-09-2024 10:12-0400 Body weight 84.82 kg Bebeto Nienberg PA Work Phone: [facility] [employer] [facility] 04-09-2024 10:12-0400 Diastolic blood pressure 97 mm[Hg] Bebeto Nienberg PA Work Phone: [facility] [employer] [facility] 04-09-2024 10:12-0400 Heart rate 63 /min Bebeto Nienberg PA Work Phone: [facility] [employer] [facility] 04-09-2024 10:12-0400 Respiratory rate 16 /min Bebeto Nienberg PA Work Phone: [facility] [employer] [facility] 04-09-2024 10:12-0400 SaO2% (BldA) [Mass fraction] 100 % Bebeto Nienberg PA Work Phone: [facility] [employer] [facility] 04-09-2024 10:12-0400 Systolic blood pressure 141 mm[Hg] [facility]ienberg [facility] 02-22-2024 13:29-0400 Body height 175.3 cm Bebeto Nienberg PA [facility] 02-22-2024 13:29-0400 Body mass index (BMI) [Ratio] 26.73 kg/m2 Bebeto Nienberg PA Work Phone: [facility] [employer] [facility] 02-22-2024 13:29-0400 Body weight 82.1 kg Bebeto Nienberg PA Work Phone: [facility] 02-22-2024 13:29-0400 Diastolic blood pressure 79 mm[Hg] Bebeto Nienberg PA Work Phone: [facility] [employer] [facility] 02-22-2024 13:29-0400 Heart rate 65 /min Bebeto Nienberg PA Work Phone: [facility] 02-22-2024 13:29-0400 SaO2% (BldA) [Mass fraction] 99 % Bebeto Nienberg PA Work Phone: [facility] 02-22-2024 13:29-0400 Systolic blood pressure 115 mm[Hg] Bebeto Nienberg PA Work Phone: [facility] [employer] [facility] 01-09-2024 12:23-0400 Body height 175.3 cm Bebeto Nienberg PA Work Phone: [facility] 01-09-2024 12:23-0400 Body mass index (BMI) [Ratio] 27.02 kg/m2 Bebeto Nienberg PA Work Phone: [facility] 01-09-2024 12:23-0400 Body weight 83.01 kg Bebeto Nienberg PA Work Phone: [facility] [employer] [facility] 01-09-2024 12:23-0400 Diastolic blood pressure 84 mm[Hg] Bebeto Nienberg PA Work Phone: [facility] [employer] [facility] 01-09-2024 12:23-0400 Heart rate 65 /min Bebeto Nienberg PA Work Phone: [facility] [employer] [facility] 01-09-2024 12:23-0400 Respiratory rate 16 /min Bebeto Nienberg PA Work Phone: [facility] [employer] [facility] 01-09-2024 12:23-0400 SaO2% (BldA) [Mass fraction] 98 % Bebeto Nienberg PA Work Phone: [facility] 01-09-2024 12:23-0400 Systolic blood pressure 142 mm[Hg] Bebeto LEON Work Phone: [facility] Encounters Encounter Date Encounter Type Care Provider Facility Start: 10-10-2024 End: 10-10-2024 Office outpatient visit 15 minutes Gretta Whitlock MD Work Phone: [facility] Comment on above: 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) Start: 10-04-2024 End: 10-04-2024 Bamboo flowsheet Edilson Guzman DPM Work Phone: [facility] Start: 10-04-2024 End: 10-04-2024 Bamboo flowsheet Edilson Guzman DPM Work Phone: [facility] Start: 10-04-2024 End: 10-04-2024 Office outpatient new 45 minutes Edilson Guzman DPM Work Phone: [facility] Comment on above: Paronychia of great toe of right foot (Primary Dx); Angiopathy, diabetic ([facility]); Diabetic polyneuropathy associated with type 2 diabetes mellitus ([facility]); Status post partial amputation of left foot ([facility]) Start: 10-04-2024 End: 10-04-2024 ambulatory EDILSON GUZMAN Not Available Start: 10-02-2024 End: 10-02-2024 Bamboo flowsheet Bebeto LEON Work Phone: [facility] Start: 10-02-2024 End: 10-02-2024 Bamboo flowsheet Bebeto LEON Work Phone: [facility] Start: 10-02-2024 End: 10-02-2024 ambulatory BEBETO BEARD Not Available Start: 10-02-2024 End: 10-02-2024 Office outpatient new 45 minutes Bebeto LEON Work Phone: [facility] Comment on above: Acute pain of right knee (Primary Dx); Arthritis of right knee; Effusion of right knee Start: 09-27-2024 End: 09-27-2024 ambulatory [facility] Start: 09-26-2024 End: 09-26-2024 Office outpatient new 45 minutes Gretta Whitlock MD Work Phone: [facility] Comment on above: 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); PVD (peripheral vascular disease) ([facility]) Start: 09-26-2024 End: 09-26-2024 ambulatory [facility] Start: 09-23-2024 End: 09-23-2024 ambulatory [place] [facility]h [facility] Start: 09-13-2024 End: 09-13-2024 Emergency department patient visit [facility] Start: 09-04-2024 End: 09-04-2024 Office outpatient visit 15 minutes Vandana Brar [employer] SUPERVISOR-TESTING CONSULTANT Work Phone: [facility] Comment on above: Ventricular tachycar gaye ([facility]) (Primary Dx); AICD present, double chamber; Encounter for monitoring amiodarone therapy; Paroxysmal atrial fibrillation ([facility]); Typical atrial flutter ([facility]); V-tach ([facility]); Essential hypertension Start: 09-04-2024 End: 09-04-2024 Clinical Support Pm Ppc Pacer [facility] Comment on above: AICD present, double chamber- [employer] (Primary Dx) Start: 09-03-2024 End: 09-03-2024 Telephone encounter Marisela Mcguire CMA [facility] Start: 07-22-2024 End: 07-22-2024 ambulatory [facility] Alexa [facility] Start: 07-12-2024 End: 07-22-2024 Refill Liliana Rivera [employer] SUPERVISOR-TESTING CONSULTANT Work Phone: [facility] Comment on above: Med Change Request Start: 05-23-2024 End: 05-23-2024 Refill Bebeto Espino [employer] SUPERVISOR-TESTING CONSULTANT Work Phone: [facility] Comment on above: Med Refill Start: 05-23-2024 End: 05-23-2024 Office outpatient visit 15 minutes Bebeto LEON Work Phone: [facility] Comment on above: Lumbosacral 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 (Primary Dx) Start: 05-23-2024 End: 05-23-2024 ambulatory [facility] Ede [facility] Start: 05-09-2024 End: 05-09-2024 ambulatory IZZY Langford ROGELIOCARLOS [facility] Start: 05-03-2024 End: 05-03-2024 ambulatory ALBER Valera HYDE [facility] Start: 04-16-2024 End: 04-16-2024 Emergency department patient visit [facility] Start: 04-09-2024 End: 04-09-2024 Office outpatient visit 25 minutes Bebeto LEON Work Phone: [facility] Comment on above: Lumbosacral 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 (Primary Dx) Start: 04-09-2024 End: 04-09-2024 [facility] Ede [facility] Start: 04-01-2024 End: 04-01-2024 ambulatory [facility] Start: 02-22-2024 End: 02-22-2024 Office outpatient visit 25 minutes Bebeto LEON Work Phone: [facility] Comment on above: Lumbosacral 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 (Primary Dx); Disc displacement, lumbar; Lumbar radiculopathy, chronic Start: 02-22-2024 End: 02-22-2024 ambulatory [facility] Ede [facility] Start: 02-21-2024 End: 02-21-2024 Refill Marsha Alcazar [employer] SUPERVISOR-TESTING CONSULTANT Work Phone: [facility] Comment on above: Med Refill Start: 01-17-2024 End: 01-17-2024 Telephone encounter Di London FROILAN [facility] Start: 01-11-2024 End: 01-11-2024 Telephone encounter Mariana Reyez RN [facility] Start: 01-09-2024 End: 01-09-2024 Office outpatient new 30 minutes Bebeto LEON Work Phone: [facility] Comment on above: Lumbar spondylolysis (Primary Dx) Start: 01-09-2024 End: 01-09-2024 ambulatory BEBETO HAQ [facility] Start: 12-26-2023 End: 12-27-2023 Emergency department patient visit DIVYA Valera CHEMARIA E [facility] Start: 11-14-2022 End: 11-15-2022 ambulatory [facility] Facility:H1 Start: 10-24-2022 End: 10-25-2022 ambulatory [facility] Facility:H1 Start: 10-03-2022 End: 10-04-2022 ambulatory [facility] Facility:H1 Start: 09-12-2022 End: 09-13-2022 ambulatory CHET FOURNIER Facility:H1 Start: 08-23-2022 End: 08-24-2022 ambulatory [facility] Facility:H1 Start: 08-16-2022 End: 08-17-2022 ambulatory [facility] Facility:H1 Start: 08-09-2022 End: 08-10-2022 ambulatory [facility] Facility:H1 Procedures Date Procedure Procedure Detail Performing Clinician Start: 10-02-2024 Arthrocentesis aspir &/inj major jt/bursa w/o us Bebeto LEON Work Phone: Start: 09-04-2024 Ecg routine ecg w/le ast 12 lds w/i&r Vandana Brar [employer] SUPERVISOR-TESTING CONSULTANT Work Phone: Start: 09-04-2024 Follow-up visit Follow-up VANDANA BRAR Start: 04-06-2023 Microalbumin [Mass/v olume] in Urine by Test strip Bebeto LEON Work Phone: Plan of Treatment Date Care Activity Detail Author Start: 09-27-2025 Adult BMI Screening Adult BMI Screen ing [facility] Start: 09-27-2025 Tobacco Screening Tobacco Screening [facility] Start: 09-13-2025 Adult BMI Screening Adult BMI Screen ing [facility] Start: 09-13-2025 Tobacco Screening Tobacco Screening [facility] Start: 09-04-2025 Adult BMI Screening Adult BMI Screen ing [facility] Start: 09-04-2025 Tobacco Screening Tobacco Screening [facility] Start: 05-23-2025 Tobacco Screening Tobacco Screening [facility] Start: 04-16-2025 Adult BMI Screening Adult BMI Screen ing [facility] Start: 04-09-2025 Adult BMI Screening Adult BMI Screen ing [facility] Start: 04-09-2025 Tobacco Screening Tobacco Screening [facility] Start: 03-03-2025 Influenza vaccination [facility] Start: 02-21-2025 Adult BMI Screening Adult BMI Screen ing [facility] Start: 02-21-2025 Tobacco Screening Tobacco Screening [facility] Start: 01-09-2025 End: 01-09-2025 Patient encounter procedure 01/09/2025 1:30 PM EDT Procedure Visit [facility] [address] [place] [phone] Edilson Guzman DPM [address] [place], [place] [id number] [facility] Start: 01-08-2025 Adult BMI Screening Adult BMI Screen ing [facility] Start: 01-08-2025 Tobacco Screening Tobacco Screening [facility] Start: 10-04-2024 End: 10-04-2024 Patient encounter procedure [facility] Comment on above: Arrived Start: 09-26-2024 End: 09-26-2024 Patient encounter procedure 09/26/2024 9:40 AM EDT Office Visit [facility] [address] [place] [phone] Gretta Whitlock MD [address] [place] [address] [facility] Start: 09-16-2024 End: 09-16-2024 Patient encounter procedure 09/16/2024 11:00 AM EDT Appointment [facility] [address] [place] [phone] Vandana Brar, [employer] SUPERVISOR-TESTING CONSULTANT [address] [place] [address] [facility] Start: 09-04-2024 End: 09-04-2024 Patient encounter procedure 09/04/2024 2:30 PM EST Office Visit [facility] [address] [place] [phone] Vandana Brar, [employer] SUPERVISOR-TESTING CONSULTANT [address] [place] [address] [facility] Start: 09-04-2024 End: 09-04-2024 Clinical Support 09/04/2024 1:15 PM EST Clinical Support [facility] [address] [place] [phone] [facility] Start: 07-24-2024 End: 07-24-2024 Clinical Support [facility] Start: 07-04-2024 End: 07-04-2024 Patient encounter procedure 07/04/2024 10:00 AM EST Office Visit [facility] [address] [place] [phone] Bebeto Haq PA [address] [place] [address] [facility] Start: 05-23-2024 End: 05-23-2024 Patient encounter procedure 05/23/2024 12:45 PM EST Office Visit [facility] [address] [place] [phone] Bebeto Haq PA [address] [place] [address] [facility] Start: 05-03-2024 End: 05-03-2024 Admission to same day surgery center 05/03/2024 8:58 AM EDT - 05/03/2024 9:06 AM EDT Surgery [facility] [address] [place] [phone] Alber Hyde MD [address] [place], [place] [phone] INJECTION BLOCK NERVE MEDIAL BRANCH: bilat L45 51 [56617 (CPT )] [facility] Comment on above: INJECTION BLOCK NERV E MEDIAL BRANCH: bilat L45 51 [78233 (CPT )] Start: 05-03-2024 End: 05-03-2024 Njx dx/ther agt pvrt facet jt lmbr/sac 1 level INJECTION BLOCK NERVE MEDIAL BRANCH Lumbosacral spondylosis without myelopathy 05/03/2024 8:58 AM EDT [facility] Start: 05-03-2024 Subsequent hospital visit by physician 05/03/2024 8:58 AM EDT Hospital Encounter [facility] [address] [place] [phone] Alber Hyde MD [address] [place], [place] [phone] [facility] Start: 04-06-2024 Urine screening for protein Urine Microalbumin [facility] Start: 04-04-2024 End: 04-04-2024 Patient encounter procedure 04/04/2024 1:15 PM EDT Appointment [facility] [address] [place] [phone] Bebeto Haq PA [address] [place], [place] [phone] [facility] Start: 03-03-2024 COVID-19 Vaccine ( season) COVID-19 Vaccine ( season) [facility] Start: 03-03-2024 COVID-19 Vaccine ( season) COVID-19 Vaccine () [facility] Start: 03-03-2024 Influenza vaccination Influenza Vacc ine [facility] Start: 02-22-2024 End: 02-22-2024 Patient encounter procedure 02/22/2024 2:45 PM EDT Office Visit [facility] [address] [place] [phone] Bebeto Haq PA [address] [place], [place] [phone] [facility] Start: 04-25-2023 Pneumococcal Vaccine : 65+ Years (2 of 2 - PCV) Pneumococcal Vaccine: 65+ Years (2 of 2 - PCV) [facility] Start: 03-03-2023 COVID-19 Vaccine ( season) COVID-19 Vaccine ( season) [facility] Start: 2019 Abdominal [...] DTaP,Tdap and Td Vaccines (1 - Tdap) [facility] Start: 1972 Adult BMI Follow Up Plan Adult BMI F [facility]llow [facility] Plan [facility] Start: 1972 Diabetic foot examination Diabetic Foot Exam [facility] Start: 1966 Depression Screening [facility]ing [facility] Start: 1954 Glaucoma screening Diabetic Op [facility]thalmology Exam [facility] Start: 1954 Medicare Annual Well ness Visit Medicare Annual Wellness [facility] Start: 1954 Screening for malign ant neoplasm of colon [facility] End: 02-21-2025 MR Lumbar spine WO contrast MR lumbar spine without contrast Imaging Routine Lumbar radiculopathy, chronic 1 Occurrences starting 02/22/2024 until 02/21/2025 [employer] Work Phone: Comment on above: 1 Occurrences starti ng 02/22/2024 until 02/21/2025 End: 09-04-2025 Pulmonary function test Complete PFT w/ BD (Spirometry (Flow Volume Loop) pre/post short acting bronchodilator w/ DLCO (diffusion study) and Lung Volume) Pulmonary function test Complete PFT w/ BD (Spirometry (Flow Volume Loop) pre/post short acting bronchodilator w/ DLCO (diffusion study) and Lung Volume) PFT Routine Encounter for monitoring amiodarone therapy 1 Occurrences starting 09/04/2024 until 09/04/2025 [employer] Work Phone: Comment on above: 1 Occurrences starti ng 09/04/2024 until 09/04/2025 Immunizations Immunization Date Immunization Notes Care Provider Fa [facility] 04-11-2023 influenza virus vaccine, unspecified formulation Bebeto LEON [facility] 04-19-2021 influenza, injectabl e, quadrivalent, preservative free Bebeto LEON Work Phone: [facility] 05-18-2018 Influenza, injectabl e, Madin [place] Canine Kidney, preservative free, quadrivalent Bebeto LEON Work Phone: [facility] 05-10-2017 influenza, seasonal, injectable, preservative free Bebeto LEON [facility] 03-25-2015 influenza, seasonal, injectable, preservative free [facility]ebeto LEON [facility] 04-15-2014 influenza, seasonal, injectable Bebeto LEON Work Phone: [facility] Payers Date Payer Category Payer Medicaid [id number] 1992 Medicare [id number] 1959 Medicaid [id number] 1960 Medicare [id number] 1954 Unknown [id number] 2.16.84 0.1.538510.3.579.2.593 1954 Unknown [id number] 2.16.84 0.1.037807.3.579.2.593 1954 Unknown [id number] 2.16.84 0.1.520946.3.579.2.593 1954 Unknown [id number] 2.16.84 0.1.231963.3.579.2.593 1954 Unknown [id number] 2.16.84 0.1.505622.3.579.2.593 1954 Unknown [id number] 2.16.84 0.1.890187.3.579.2.593 1954 Unknown [id number] 2.16.84 0.1.633235.3.579.2.593 1954 Unknown [id number] 2.16. 840.1.986833.3.579.2.1286 1954 Unknown [id number] 2.16. 840.1.574463.3.579.2.128 1954 Unknown [id number] 2.16. 840.1.787117.3.579.2.1285 1954 Unknown [id number] 2.16. 840.1.875446.3.579.2.1285 1954 Unknown [id number] 2.16. 840.1.230024.3.579.2.1285 1954 Unknown [id number] 2.16.8 40.1.655768.3.579.2.1285 1954 Unknown [id number] 2.16.8 40.1.884649.3.579.2.1285 1954 Unknown [id number] 2.16.8 40.1.922106.3.579.2.1285 1954 Unknown [id number] 2.16.8 40.1.567731.3.579.2.1285 1954 Unknown [id number] 2.16.8 40.1.341688.3.579.2.1285 1954 Unknown [id number] 2.16.8 40.1.883063.3.579.2.1285 1954 Unknown [id number] 2.16.8 40.1.747423.3.579.2.1285 1954 Unknown [id number] 2.16.8 40.1.850277.3.579.2.1285 1954 Unknown [id number] 2.16.8 40.1.140797.3.579.2.1285 1954 Unknown [id number] 2.16.8 40.1.382565.3.579.2.1285 1954 Unknown [id number] 2.16.8 40.1.188174.3.579.2.1285 1954 Unknown [id number] 2.16.8 40.1.167970.3.579.2.1285 1954 Unknown [id number] 2.16. 840.1.764085.3.579.2.1286 1954 Unknown [id number] 2.16. 840.1.576552.3.579.2.1286 1954 Unknown [id number] 2.16.84 0.1.302084.3.579.2.1259 1954 Unknown [id number] 2.16.84 0.1.103764.3.579.2.1259 Social History Date Type Detail Facility Start: 01-09-2024 End: 10-04-2024 Tobacco smoking status COIS Ex-smoker [facility] History of tobacco use Current smoker [facility] History of tobacco use Cigarette Smoker P [facility] Start: 01-09-2024 End: 10-04-2024 Tobacco use and exposure Smokeless tobacco non-user [facility] Start: 05-23-2024 End: 10-10-2024 Alcoholic beverage intake Current non-drinker of alcohol (finding) [facility] Start: 07-18-2020 End: 05-23-2024 History of Social function [facility] Start: 07-18-2020 End: 05-23-2024 Tobacco use panel [facility] Childcare Unknown [facility] Start: 1955 Sex assigned at Not on file [facility] Start: 02-05-2015 Sex Male (finding) [facility] Tobacco smoking stat [facility] Tobacco smoking consumption unknown [facility] Start: 10-02-2024 End: 10-04-2024 Alcoholic beverage intake Ex-drinker (finding) [facility] Healthcare Medical Equipment Procedure Code Equipment Code Equipment Origin al Text Equipment Identifier Dates Ld Pcng 55cm Rv Sq Scr S Df-4 - [id number] - [id number] Start: 11-20-2018 Lead Capsure [employer] 5076-45 - [id number] - [id number] Start: 11-20-2018 Lead [employer] 5076-52 - [id number] - [id number] Start: 07-21-[address] X[address] - [id number] - [id number] Start: 11-20-2018 Sys Crd [place] Lin[facility] [id number] - [id number] - [id number] Start: 11-16-2018 Start: 01-20-2018 Goals Date Patient Goal Desired Activity /State Personal health goal Comment on above: Formatting of this n ote might be different from the original. Evaluation of progress towards goal: discharge home with yazdanism/friends support. Personal health goal Comment on above: Formatting of this n ote might be different from the original. Evaluation of progress towards goal: plan home self care Personal health goal Comment on above: Formatting of this n ote might be different from the original. Evaluation of progress towards goal: Patient likely will discharge to a SNF Clinical Notes 08-09-2022 to 10-10-2024 Assessment & Plan Note - Gretta Whitlock MD - 10/10/2024 11:08 AM EDTAssessment & Plan Note - Gretta Whitlock MD - 10/10/2024 11:08 AM EDTMmegan Whitlock MD - 10/10/2024 11:00 AM EDT Note Date & Type Note Facility 10-10-2024 Evaluation + Plan note Associated Problem(s): Critical limb ischemia of left lower extremity with gangrene ([facility]) PVR. Continue best medical [facility]10-2024 Miscellaneous Notes Associated Problem(s): Critical limb ischemia of left lower extremity with gangrene (CMS-HCC) PVR. Continue best medical therapy with aspirin and statin. [facility] 10-10-2024 History of Present illness Narrative Images from the original note were not included. To: [facility] HPI: Tomas Frausto is a 69 y.o. male with with Left lower extremity critical limb ischemia with nonhealing toe amputation sites and noninvasive testing shows multilevel occlusive disease mostly at the level of the SFA and the tibial vessels. He has known calcified vessels as well. I did angiogram and tibial intervention. His wound is almost healed completely now. I discussed with him that he might not need a TMA however I defer to podiatry.. Review of Systems: Review of Systems Constitutional: Negative. HENT: Negative. Respiratory: Negative. Cardiovascular: Negative. Gastrointestinal: Negative. Endocrine: Negative. Genitourinary: Negative. Musculoskeletal: Negative. Skin: Negative. Neurological: Negative. Hematological: Negative. Medications: Current Outpatient Medications on File Prior to Visit Medication Sig Dispense Refill acetaminophen (TYLENOL ARTHRITIS) 650 mg 8 hr tablet Take 1 tablet (650 mg total) by mouth every 8 (eight) hours as needed for pain. amiodarone (PACERONE) 200 mg tablet Take 1 tablet (200 mg total) by mouth in the morning. 90 tablet 3 aspirin 81 mg Take 1 tablet (81 mg total) by mouth in the morning. atorvastatin (LIPITOR) 20 mg tablet Take 1 tablet (20 mg total) by mouth in the morning. EASY TOUCH 31 gauge x 5/16 needle empagliflozin (JARDIANCE) 25 mg tablet tablet Take 1 tablet (25 mg total) by mouth in the morning. metFORMIN XR (GLUCOPHAGE-XR) 500 mg 24 hr tablet Take 2 tablets (1,000 mg total) by mouth in the morning and 2 tablets (1,000 mg total) before bedtime. metoprolol succinate XL (TOPROL XL) 100 mg 24 hr tablet TAKE 1 TABLET (100 MG TOTAL) BY MOUTH IN THE MORNING 90 tablet 0 sertraline (ZOLOFT) 50 mg tablet Take 1 tablet (50 mg total) by mouth in the morning. XARELTO 20 mg tablet tablet TAKE 1 TABLET (20 MG TOTAL) BY MOUTH IN THE MORNING 90 tablet 1 No current facility-administered medications on file prior to visit. Past Medical History: Past Medical History: Diagnosis Date Angina pectoris Arrhythmia Atrial fibrillation ([facility]) Atrial flutter ([facility]) Atrial flutter ([facility]) Benign prostatic hyperplasia BPH with urinary obstruction Cancer ([facility]) skin cancer Cataract Constipation Coronary artery disease Dental disease no teeth Diabetes mellitus ([facility]) Diabetes mellitus type 2, controlled ([facility]) Hypercholesterolemia Hypertension Myositis Peripheral neuropathy Rash Scalp wound Urinary incontinence Ventricular tachycardia (CMS-HCC) Visual impairment glasses Past Surgical History: Past Surgical History: Procedure Laterality Date 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; excision and debridement Left 10/29/2021 Performed by Ambrosio Al MD at [facility] AMPUTATION TOE 4TH & 5TH/WIDE INCISIONAL DEBRIDEMENT LEFT DIABETIC FOOT NECROTIZING FASCITIS Left 08/12/2021 Performed by Ambrosio Al MD at [facility] ANGIO LOWER EXT Left 09/27/2024 Performed by Gretta Whitlock MD at [facility]ATH [facility] CARDIAC DEFIBRILLATOR PLACEMENT medtronic CATARACT EXTRACTION Coronary angiogram and left ventricular gram/pressure N/A 11/19/2018 Performed by Sage Jay MD at [facility] Coronary fractional flow reserve N/A 11/19/2018 Performed by Sage Jay MD at [facility]ATH [facility] CYSTOSCOPY [facility] SOLUTION N/A 10/27/2021 Performed by Frederic Thorne MD at [facility] DC ICD RA lead replace - MDT N/A 07/21/2020 Performed by Yoni Espinoza MD at [facility] (EP) EP - Device DC ICD Left 11/20/2018 Performed by Shayna Betancourt MD at [facility] (EP) EP - Diagnostic-- EP study Right 11/16/2018 Performed by Raifta Garcia MD at [facility] (EP) INJECTION BLOCK NERVE MEDIAL BRANCH: bilat L 4/5, 10/31 Bilateral 05/03/2024 Performed by Alber Hyde MD at [facility] Loop recorder implant N/A 11/16/2018 Performed by Rafita Garcia MD at [facility] (EP) Loop recorder removal N/A 07/21/2020 Performed by Yoni Espinoza MD at [facility] (EP) Percutaneous angioplasty tibia/per initial vessel left Left 09/27/2024 Performed by Gretta Whitlock MD at [facility]ATH [facility] Percutaneous angioplasty tibia/per initial vessel/EACH ADDITIONAL Right 09/27/2024 Performed by Gretta Whitlock MD at [facility]ATH [facility] SKIN CANCER EXCISION Social and Family History: Social History Socioeconomic History Marital status: Spouse [...] on file Food Insecurity: No Food Insecurity (10/10/2024) Hunger Screening Food Insecurity - Worry: Never True Food Insecurity - Inability: Never True Transportation Needs: Not on file Physical Activity: Not on file Stress: Not on file Social Connections: Not on file Interpersonal Safety: Unknown (08/24/2023) Received from [facility] Safety & Environment Fear of Current or Ex-Partner: Not on file Emotionally Abused: Not on file Physically Abused: Not on file Sexually Abused: Not on file Physically or Sexually Abused: Not on file Housing Instability: Not on file Family History Problem Relation Age of Onset COPD Father Early Father Diabetes Mother Recent Labs: Recent and relative labs were reviewed and interpreted and contributed to the assessment and plan below. Vitals: BP 126/72 (BP Site: Left Arm, BP Postition: Sitting, BP CUFF SIZE: M (9-13 inches)) Pulse 59 Ht 175.3 cm (5' 9 ) Wt 81.6 kg (180 lb) SpO2 99% BMI 26.58 kg/m Body mass index is 26.58 kg/m . Physical Exam: Physical Exam Constitutional: Appearance: Normal appearance. HENT: Head: Normocephalic and atraumatic. Mouth/Throat: Mouth: Mucous membranes are moist. Eyes: Extraocular Movements: Extraocular movements intact. Pupils: Pupils are equal, round, and reactive to light. Cardiovascular: Rate and Rhythm: Normal rate and regular rhythm. Pulmonary: Effort: Pulmonary effort is normal. Breath sounds: Normal breath sounds. Abdominal: General: Abdomen is flat. Bowel sounds are normal. Palpations: Abdomen is soft. Musculoskeletal: General: Normal range of motion. Cervical back: Normal range of motion. Skin: General: Skin is warm and dry. Neurological: General: No focal deficit present. Mental Status: He is alert and oriented to person, place, and time. Mental status is at baseline. Psychiatric: Mood and Affect: Mood normal. Behavior: Behavior normal. Thought Content: Thought content normal. Judgment: Judgment normal. Recent testing: Assessment and Plan: Problem List Critical limb ischemia of left lower extremity with gangrene ([facility]) - Primary Current Assessment & Plan PVR. Continue best medical therapy with aspirin and statin. Tomas was seen today for angio 09-27-24. Diagnoses and all orders for this visit: Critical limb ischemia of left lower extremity with gangrene ([facility]) Gretta Whitlock MD, RONNIE, RPVI, FSVS, FACS [facility] [facility] This note was created with the assistance of a speech recognition program. While intending to generate a timely document that accurately reflects the content of the visit, no guarantee can be provided that every grammatical or spelling mistake has been or will be identified or corrected. Thank you for your understanding. documented in this encounter [facility] 10-04-2024 History of Present illness Narrative Images from the original note were not included. Subjective Patient ID: Tomas Frausto is a 69 y.o. male who presents for Toe Pain (Tomas Frausto 69yo New Patient last seen 07/12/2021. Patient is diabetic. Concerns of Right great toenail infection, patient relates drainage, thick and painful. Patient is seeing wound care in [place] for possible partial amputation of left foot, due to non-healing after amputation surgery 3 years ago, in [place]. Currently taking cephalexin for left foot infection. Left leg blood clot as of last week, patient is on aspirin and Xarelto. BS [address] Bernard 09/30/2024 SS 10). HPI Patient last in clinic in July of 2021. Chief complaint: Redness and swelling of the right great toe, specifically along the paronychia margins. The condition as developed insidiously over the past 1-2 weeks or so; without specific history of injury or trauma. Relates no recent change in activity or shoe gear; typically continues to wear Dr. Galeano therapeutic footwear. He does note some discomfort in spite of known diabetic peripheral neuropathy. His friends present today are most concerned with localized redness and drainage. There has been no specific treatment to date. Risk profile: Type II diabetes. Diabetic peripheral neuropathy. Diabetic peripheral vasculopathy. Status post partial amputation of the left foot (2021). Medical comorbidities. Polypharmacy. Xarelto therapy. ASA therapy. Toe Pain Medications Current Outpatient Medications: amiodarone (Pacerone) 200 MG tablet, Take 200 mg by mouth in the morning., Disp: , Rfl: aspirin 81 MG EC tablet, Take 81 mg by mouth in the morning., Disp: , Rfl: atorvastatin (Lipitor) 20 MG tablet, Take 20 mg by mouth in the morning., Disp: , Rfl: cephalexin (Keflex) 500 MG capsule, Take 500 mg by mouth in the morning and 500 mg at noon and 500 mg in the evening and 500 mg before bedtime., Disp: , Rfl: D3-1000 25 MCG (1000 UT) capsule, Take 25 mcg by mouth Daily, Disp: , Rfl: Jardiance 25 MG, 1 (one) time each day at the same time, Disp: , Rfl: magnesium oxide (Mag-Ox) 400 MG tablet, , Disp: , Rfl: metFORMIN XR (Glucophage-XR) 500 MG 24 hr tablet, Take 1,000 mg by mouth in the morning and 1,000 mg before bedtime., Disp: , Rfl: metoprolol succinate XL (Toprol-XL) 100 MG 24 hr tablet, Take 100 mg by mouth in the morning., Disp: , Rfl: sertraline (Zoloft) 50 MG tablet, Take 50 mg by mouth in the morning., Disp: , Rfl: tamsulosin (Flomax) 0.4 MG 24 hr capsule, TAKE 2 CAPSULES BY MOUTH 30 MINS AFTER MEAL DAILY 90, Disp: , Rfl: Xarelto 20 MG tablet, Take 20 mg by mouth Daily, Disp: , Rfl: Allergies Patient has no known allergies. Past Surgical History Past Surgical History: Procedure Laterality Date FOOT SURGERY Left Toes amputated VENOUS CATH For blood clots in leg Family History No family history on file. Objective General Examination: GENERAL APPEARANCE: Alert and oriented. Pleasant disposition. Wearing therapeutic footwear and accommodative orthoses. Accompanied by 2 friends. Date of Last Foot Exam: 10/04/2024 Sensory testing performed: sensations diminished Sensory and motor testing performed: strength normal Pedal pulse taking performed: 1+ Vascular: DORSALIS PEDIS PULSE: Faintly palpable, bilaterally. POSTERIOR TIBIAL PULSE: Faintly palpable, bilaterally. CAPILLARY REFILL: Remains fairly brisk. TEMPERATURE GRADIENT: warm to slightly cool. EDEMA: Unremarkable for ankle edema. CAPILLARY FILLING TIME(sec): capillary fill intact bilateral digits less than 3 secs. Neurologic: VIBRATORY: Absent at the MTP joints. SHARP SENSATION: Tactile and light touch sensation is diminished, essentially absent over the digital and forefoot areas. SEMMES-DAWSON 5.07 MONOFILAMENT: Unable to localize multiple points plantarly. Dermatologic: SKIN FINDINGS: Mild non-inflamed xerosis bilateral. HYPERTROPHIC LESION: Right foot: Slightly raised keratotic lesion sub sesamoid and 5th metatarsal condyle; non-inflamed, without ulcerative changes. HYPERKERATOSIS: Mild hyperkeratosis along the rim of each heel. NAIL PATHOLOGY: Right great toe: Onychogryphosis: Gross toenail dystrophy, hypertrophy, thickening, elongation, clubbing, crumbly texture, subtotal detachment, periungual hyperkeratosis. The paronychia margins are locally inflamed (blanchable) without pustular drainage or cellulitis. Unremarkable for streaking. There is a small amount of periungual and subungual serous exudate. Left great toe: Onychogryphosis. All remaining digits: Toenail dystrophy, elongation, thickening, discoloration, clubbing, subtotal onycholysis, periungual hyperkeratosis, without drainage. MYCOSIS SCALE: Total with debris multiple digits.. INTERDIGITAL MACERATION:clean, dry, non-inflamed. ULCER: No sign of ulceration or open wound. SKIN PATHOLOGY:texture, turgor, hair growth, within normal limits.. Orthopedic: JOINT RANGE OF MOTION: ankle joint and subtalar joint ROM are normal and pain free. DEFORMITIES: Left foot: Status post amputation lateral 3 rays; with remaining 1st and 2nd digits. MUSCLE STRENGTH: Generalized lower extremity weakness with no focal deficits. Radiology: Assessment/Plan Paronychia right great toe. Onychogryphosis bilateral great toes. TDO deformity all remaining digits. Type II diabetes. Diabetic peripheral neuropathy (Q9). Diabetic peripheral vasculopathy (Q8). Status post partial amputation left foot (Q7). Recently diagnosed DVT right lower extremity; currently on Xarelto and ASA therapy. Plan: Review of clinical findings, high-risk nature of the condition, etiology and contributing/aggravating factors, treatment strategy, rationale and objectives. Right great toe: Toenail avulsion/decompression as described. Post-procedure instructions: Dressing intact, clean and dry 3 days. Home nursing will then follow-up with daily cleansing and care measures; with Neosporin or equivalent. Band-Aid dressing as necessary. Tylenol as needed for comfort. Patient currently on cephalexin therapy for cellulitis of the left lower extremity. Scheduled appointment with Dr. Mai next week relative to potential completion of TMA of the left foot. Procedure: RIGHT GREAT TOE: Aseptic technique: Local infiltrative H-block anesthesia: Xylocaine 2 percent plain: 4 cc total: Toenail avulsion in its entirety; with curettage of all periungual and subungual debris. Site cleansing followed by topical and pressure hemostasis. Amerigel dressing. Well tolerated. This note was created with the assistance of a speech recognition program. While intending to generate a timely document that accurately reflects the content of the visit, no guarantee can be provided that every grammatical or spelling mistake has been or will be identified or corrected. Thank you for your understanding. Edilson Guzman DPM documented in this encounter [facility] 10-04-2024 Instructions Edilson Guzman DPM - 10/04/2024 11:30 AM EDT As noted documented in this encounter [facility] 10-02-2024 History of Present illness Narrative Associated Order(s): L Inj/Asp: R knee Post-Procedure Diagnose(s): Arthritis of right knee; Effusion of right knee Images from the original note were not included. NAME: Tomas Frausto : 1955 HISTORY OF PRESENT ILLNESS: NEW PT Tomas Frausto is an 69 y.o. @ male. (NEW PT) [facility] REFERRAL. RT KNEE PAIN 09/11/24 (3 WKS), WENT TO [facility] ER 09/13, HAD XR AND GIVEN KNEE IMMOBILIZER. XRAY [facility] 09/13/24 WORE KNEE IMMOBILIZER FOR A COUPLE DAYS. PRESENTS IN WC TODAY. USES WALKER AT HOME. USED WC FOR DISTANCE. PAIN DIFFUSE IN KNEE. DENIES RADIATION. INTERMITTENT PAIN. +TYL. USED ICE ONCE. DENIES N/T. +SWELLING. KNEE POPPED ONCE GOING UP THE STEPS. +GIVING OUT SENSATION. DOES NOT WAKE AT HS. *ON XARELTO PAST MEDICAL HISTORY: Past Medical History: Diagnosis Date Diabetes (CMS/HCC) H/O blood clots PAST SURGICAL HISTORY: Past Surgical History: Procedure Laterality Date FOOT SURGERY Left Toes amputated VENOUS CATH For blood clots in leg SOCIAL HISTORY: Social History Occupational History Not on file Tobacco Use Smoking status: Former Types: Cigarettes Smokeless tobacco: Never Substance and Sexual Activity Alcohol use: Not Currently Drug use: Not on file Sexual activity: Not on file ALLERGIES: No Known Allergies HOME MEDICATIONS: Current Outpatient Medications Medication Instructions amiodarone (PACERONE) 200 mg, Daily RT aspirin 81 mg, Daily RT atorvastatin (LIPITOR) 20 mg, Daily RT D3-1000 25 mcg, Daily Jardiance 25 MG Every 24 hours magnesium oxide (Mag-Ox) 400 MG tablet metFORMIN XR (GLUCOPHAGE-XR) 1,000 mg, 2 times daily metoprolol succinate XL (TOPROL-XL) 100 mg, Daily RT sertraline (ZOLOFT) 50 mg, Daily RT tamsulosin (Flomax) 0.4 MG 24 hr capsule TAKE 2 CAPSULES BY MOUTH 30 MINS AFTER MEAL DAILY 90 Xarelto 20 mg, Daily REVIEW OF SYSTEMS: Review of Systems Vitals: Body mass index is 26.58 kg/m . Tobacco Use: Medium Risk (10/02/2024) Patient History Smoking Tobacco Use: Former Smokeless Tobacco Use: Never Passive Exposure: Not on file Alcohol Use: Not on file PHYSICAL EXAM: Physical Exam General Appearance: Patient mostly seated. Respiratory: No acute distress Musculoskeletal: Right knee shows mild to moderate effusion. No joint warmth or erythema. Patient has pain on end range of motion with terminal flexion and extension. Limited 4 degrees in terminal extension and flexion is to approximately 115 degrees. Mild stiffness, but no pain on hip range of motion and flexion and extension of the knee is 4+/5 but using a wheelchair today with difficulty weightbearing. Extremities: Good capillary refill distally but pulses are difficult to palpate in the dorsalis pedis or posterior tibialis region. Inspection of foot reveals a chronically thickened nail on the great toe with slight erythema and purulent drainage noted to the medial aspect at the nail fold concerning for a paronychia that is drained. It appears to be structural as the nail is pushing from shoe likely overgrown. No evidence of streaking or ulcer. Skin: Warm and dry, no rash. Neurological: Notable paresthesias in bilateral feet, right noted for diabetic neuropathy. Other observations: Pain is present with standing and overuse. Patient localizes pain to the medial joint line. The left foot was not examined. Patient has upcoming surgery for toe amputations on that foot and recent vascular test. IMAGING: L Inj/Asp: R knee on 10/02/2024 1:35 PM Indications: pain Details: 22 G needle, anterolateral approach Medications: 40 mg methylPREDNISolone acetate 40 MG/ML Outcome: tolerated well, no immediate complications E UTILIZING ASEPTIC TECHNIQUE PT GIVEN INJECTION IN RIGHT KNEE, NEUROVASC INTACT S/P INJ, TOLERATED WELL Procedure, treatment alternatives, risks and benefits explained, specific risks discussed. Consent was given by the patient. Orders Placed This Encounter Procedures L Inj/Asp This order was created via procedure documentation ASSESSMENT: ICD-10-CM 1. Acute pain of right knee M25.561 2. Arthritis of right knee M17.11 3. Effusion of right knee M25.461 Assessment & Plan Right knee pain. He localizes pain to the medial joint line, with pain present during standing and overuse. The patient has mild to moderate effusion, pain on end range of motion, and limited terminal extension and flexion. The x-ray from 09/13/2024 at [facility] shows tricompartmental arthritic changes. Treatment plan: A cortisone injection was discussed and administered today. Clinical decision making: Further treatment will be held until he is released from his left foot surgery. Right knee arthritis. The patient has been complaining of knee aching and pain consistent with arthritis. The x-ray from 09/13/2024 at [facility] shows tricompartmental arthritic changes. He has pain on end range of motion with terminal flexion and extension, and limited 4 degrees in terminal extension and flexion to approximately 115 degrees. Treatment plan: A cortisone injection was administered today. Clinical decision making: Further treatment will be held until he is released from his left foot surgery. Paronychia. Inspection of his foot revealed a chronically thickened nail on the great toe with slight erythema and purulent drainage, concerning for paronychia. Treatment plan: He follows with a local electrical power engineer and is recommended to have a prompt appointment for evaluation of his right great toe, likely needing nail trimming and potential antibiotics given his history of chronic wounds. Follow-up: Prompt appointment with local electrical power engineer for evaluation of right great toe. PROCEDURE Procedure Performed Cortisone injection for right knee pain and arthritis. Questions answered in laymen terms at the bedside. The diagnosis, home exercise plan and any ongoing restrictions/ recommendations reviewed. If unable to be reached in office, I recommend evaluation at nearest Emergency Room if any symptoms worsened or new symptoms develop for requiring urgent evaluation. documented in this encounter [facility] 09-26-2024 Evaluation + Plan note Associated Problem(s): Critical limb ischemia of left lower extremity with gangrene ([facility]) Left lower extremity angiogram and intervention [facility] 09-26-2024 Miscellaneous Notes Associated Problem(s): Critical limb ischemia of left lower extremity with gangrene ([facility]) Left lower extremity angiogram and intervention documented in this encounter [facility] 09-26-2024 History of Present illness Narrative Images from the original note were not included. To: [facility] HPI: Tomas Frausto is a 69 y.o. male with Left lower extremity critical limb ischemia with nonhealing toe amputation sites and noninvasive testing shows multilevel occlusive disease mostly at the level of the SFA and the tibial vessels. He has known calcified vessels as well. He is planned to do TMA recent test by podiatry for an angiogram and intervention.He is on aspirin , Statin and Xarelto. Review of Systems: Review of Systems Constitutional: Negative. HENT: Negative. Respiratory: Negative. Cardiovascular: Negative. Gastrointestinal: Negative. Endocrine: Negative. Genitourinary: Negative. Musculoskeletal: Negative. Skin: Negative. Neurological: Negative. Hematological: Negative. Medications: Current Outpatient Medications on File Prior to Visit Medication Sig Dispense Refill amiodarone (PACERONE) 200 mg tablet Take 1 tablet (200 mg total) by mouth in the morning. 90 tablet 3 aspirin 81 mg Take 1 tablet (81 mg total) by mouth in the morning. atorvastatin (LIPITOR) 20 mg tablet Take 1 tablet (20 mg total) by mouth in the morning. EASY TOUCH 31 gauge x 5/16 needle empagliflozin (JARDIANCE) 25 mg tablet tablet Take 1 tablet (25 mg total) by mouth in the morning. metFORMIN XR (GLUCOPHAGE-XR) 500 mg 24 hr tablet Take 2 tablets (1,000 mg total) by mouth in the morning and 2 tablets (1,000 mg total) before bedtime. metoprolol succinate XL (TOPROL XL) 100 mg 24 hr tablet TAKE 1 TABLET (100 MG TOTAL) BY MOUTH IN THE MORNING 90 tablet 0 sertraline (ZOLOFT) 50 mg tablet Take 1 tablet (50 mg total) by mouth in the morning. XARELTO 20 mg tablet tablet TAKE 1 TABLET (20 MG TOTAL) BY MOUTH IN THE MORNING 90 tablet 1 acetaminophen (TYLENOL ARTHRITIS) 650 mg 8 hr tablet Take 1 tablet (650 mg total) by mouth every 8 (eight) hours as needed for pain. insulin glargine (LANTUS, BASAGLAR) 100 unit/mL (3 mL) insulin pen Inject 32 Units under the skin nightly. (Patient not taking: Reported on 09/26/2024) pantoprazole (PROTONIX) 40 mg EC tablet Take 1 tablet (40 mg total) by mouth every morning before breakfast. (Patient not taking: Reported on 09/26/2024) 30 tablet 3 No current facility-administered medications on file prior to visit. Past Medical History: Past Medical History: Diagnosis Date Angina pectoris (CMS-HCC) Arrhythmia Atrial fibrillation (CMS-HCC) Atrial flutter ([facility]) Atrial flutter (CMS-HCC) Benign prostatic hyperplasia BPH with urinary obstruction Cancer ([facility]) skin cancer Cataract Constipation Coronary artery disease Dental disease no teeth Diabetes mellitus ([facility]) Diabetes mellitus type 2, controlled ([facility]) Hypercholesterolemia Hypertension Myositis Peripheral neuropathy Rash Scalp wound Urinary incontinence Ventricular tachycardia ([facility]) Visual impairment glasses Past Surgical History: Past Surgical History: Procedure Laterality Date 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; excision and debridement Left 10/29/2021 Performed by Ambrosio Al MD at [facility] AMPUTATION TOE 4TH & 5TH/WIDE INCISIONAL DEBRIDEMENT LEFT DIABETIC FOOT NECROTIZING FASCITIS Left 08/12/2021 Performed by Ambrosio Al MD at [facility] CARDIAC DEFIBRILLATOR PLACEMENT medtronic CATARACT EXTRACTION Coronary angiogram and left ventricular gram/pressure N/A 11/19/2018 Performed by Sage Jay MD at [facility]ATH [facility] Coronary fractional flow reserve N/A 11/19/2018 Performed by Sage Jay MD at [facility] CYSTOSCOPY [facility] SOLUTION N/A 10/27/2021 Performed by Frederic Thorne MD at [facility] DC ICD RA lead replace - MDT N/A 07/21/2020 Performed by Yoni Espinoza MD at [facility] (EP) EP - Device DC ICD Left 11/20/2018 Performed by Shayna Betancourt MD at [facility] (EP) EP - Diagnostic-- EP study Right 11/16/2018 Performed by Rafita Garcia MD at [facility] (EP) INJECTION BLOCK NERVE MEDIAL BRANCH: bilat L 10/05, 10/31 Bilateral 05/03/2024 Performed by Alber Hyde MD at [facility] Loop recorder implant N/A 11/16/2018 Performed by Rafita Garcia MD at [facility] (EP) Loop recorder removal N/A 07/21/2020 Performed by Yoni Espinoza MD at [facility] (EP) SKIN CANCER EXCISION Social and Family History: Social History Socioeconomic History Marital status: Spouse [...] on file Food Insecurity: No Food Insecurity (09/26/2024) Hunger Screening Food Insecurity - Worry: Never True Food Insecurity - Inability: Never True Transportation Needs: Not on file Physical Activity: Not on file Stress: Not on file Social Connections: Not on file Interpersonal Safety: Unknown (08/24/2023) Received from [facility] Fear of Current or Ex-Partner: Not on file Emotionally Abused: Not on file Physically Abused: Not on file Sexually Abused: Not on file Physically or Sexually Abused: Not on file Housing Instability: Not on file Family History Problem Relation Age of Onset COPD Father Early Father Diabetes Mother Recent Labs: Recent and relative labs were reviewed and interpreted and contributed to the assessment and plan below. Vitals: BP 130/80 (BP Site: Left Arm, BP Postition: Sitting, BP CUFF SIZE: M (9-13 inches)) Pulse 60 Temp 36.5 C (97.7 F) (Temporal) Ht 175.3 cm (5' 9 ) Wt 81.6 kg (180 lb) SpO2 98% BMI 26.58 kg/m Body mass index is 26.58 kg/m . Physical Exam: Physical Exam Constitutional: Appearance: Normal appearance. HENT: Head: Normocephalic and atraumatic. Mouth/Throat: Mouth: Mucous membranes are moist. Eyes: Extraocular Movements: Extraocular movements intact. Pupils: Pupils are equal, round, and reactive to light. Cardiovascular: Rate and Rhythm: Normal rate and regular rhythm. Pulmonary: Effort: Pulmonary effort is normal. Breath sounds: Normal breath sounds. Abdominal: General: Abdomen is flat. Bowel sounds are normal. Palpations: Abdomen is soft. Musculoskeletal: General: Normal range of motion. Cervical back: Normal range of motion. Skin: General: Skin is warm and dry. Neurological: General: No focal deficit present. Mental Status: He is alert and oriented to person, place, and time. Mental status is at baseline. Psychiatric: Mood and Affect: Mood normal. Behavior: Behavior normal. Thought Content: Thought content normal. Judgment: Judgment normal. Recent testing: Assessment and Plan: Problem List Critical limb ischemia of left lower extremity with gangrene ([facility]) - Primary Current Assessment & Plan Left lower extremity angiogram and intervention Tomas was seen today for new patient referral for bilateral lower extremities blood . Diagnoses and all orders for this visit: Critical limb ischemia of left lower extremity with gangrene ([facility]) PVD (peripheral vascular disease) ([facility]) - [facility] - [place], [place] Gretta Whitlock MD, RONNIE, RPVI, FSVS, FACS [facility] This note was created with the assistance of a speech recognition program. While intending to generate a timely document that accurately reflects the content of the visit, no guarantee can be provided that every grammatical or spelling mistake has been or will be identified or corrected. Thank you for your understanding. documented in this encounter [facility] 09-04-2024 History of Present illness Narrative Tomas Frausto Date of visit: 09/04/2024 Date of : 1955 Age: 69 y.o. 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, with long-term current use of insulin [place] Atrial fibrillation with RVR [place] V-tach [place] Atherosclerosis of cahto coronary artery of cahto heart without angina pectoris Pure hypercholesterolemia AICD present, double chamber- Medtronic Atrial flutter [place] Paroxysmal atrial fibrillation [place] Myositis Diabetic peripheral neuropathy associated with type 2 diabetes mellitus [place] Hematuria, gross Non-healing surgical wound Degenerative changes of anterior chamber angle Diabetic autonomic neuropathy [place] Diabetic renal disease [place] Essential hypertension Hypomagnesemia Lower urinary tract symptoms due to benign prostatic hyperplasia Osteomyelitis [place] Angina pectoris [place] Lumbosacral spondylosis without myelopathy No Known Allergies Current Outpatient Medications Medication Sig Dispense Refill acetaminophen (TYLENOL ARTHRITIS) 650 mg 8 hr tablet Take 1 tablet (650 mg total) by mouth every 8 (eight) hours as needed for pain. amiodarone (PACERONE) 200 mg tablet Take 1 tablet (200 mg total) by mouth in the morning. 90 tablet 3 aspirin 81 mg Take 1 tablet (81 mg total) by mouth in the morning. EASY TOUCH 31 gauge x 5/16 needle empagliflozin (JARDIANCE) 25 mg tablet tablet Take 1 tablet (25 mg total) by mouth in the morning. insulin glargine (LANTUS, BASAGLAR) 100 unit/mL (3 mL) insulin pen Inject 32 Units under the skin nightly. metFORMIN XR (GLUCOPHAGE-XR) 500 mg 24 hr tablet Take 2 tablets (1,000 mg total) by mouth in the morning and 2 tablets (1,000 mg total) before bedtime. metoprolol succinate XL (TOPROL XL) 100 mg 24 hr tablet TAKE 1 TABLET (100 MG TOTAL) BY MOUTH IN THE MORNING 90 tablet 0 pantoprazole (PROTONIX) 40 mg EC tablet Take 1 tablet (40 mg total) by mouth every morning before breakfast. 30 tablet 3 sertraline (ZOLOFT) 50 mg tablet Take 1 tablet (50 mg total) by mouth in the morning. XARELTO 20 mg tablet tablet TAKE 1 TABLET (20 MG TOTAL) BY MOUTH IN THE MORNING 90 tablet 1 No current facility-administered medications for this visit. Chief Complaint Patient presents with Follow-up ov/pm need for med refills hemalatha w pt friend Don r/s w pt friend Stevenson gil 08/27 History of Present Illness 69-year-old male with past medical history hyperlipidemia, type 2 diabetes mellitus, hypertension, CAD, monomorphic VT s/p Medtronic dual-chamber ICD 2019 for secondary prevention with pod 1 RA lead dislodgment undiagnosed x1 year, RA lead revision 07/21/2020 with ILR explantation, paroxysmal atrial fibrillation/flutter s/p CTI RFA 11/26/2018 Historically, patient underwent Medtronic dual-chamber ICD 11/20/2018 for 2nd dairy prevention by Dr. Betancourt. CXR revealed RA lead dislodgment pod 1. This was not recognized until a year later when he presented to [facility]. Suspected dislodged lead was causing AF which would stimulate monomorphic VT with subsequent ICD shocks. RA lead revision 07/21/2020 with loop explantation, amiodarone initiated. C 11/19/2018 showed single-vessel CAD (proximal LAD 60% stenosis) with negative FFR of 0.82, normal L SF TTE 02/19/2021 shows LVEF 50-55%, moderate LAE, mild RA AE, trace AI, [id number] MR, mild TR, RVSP 31 mm Hg Current cardiac medication regimen amiodarone 200 mg daily, aspirin 81 mg daily, Toprol 100 mg daily, Xarelto 20 mg daily Lives in [place] with friend. 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 Baseline Functional capacity - minimal for the last couple of years 2/2 diabetic ulcerations with several toe amputations. Has an Aide that comes in 3x/week to help set up meds and checks BP. Uses walker. Denies chest discomfort, palpitations, heart racing, dizziness, lightheadedness, pre-syncope, syncope, BLE edema. Does endorse some dyspnea with exertion but overall is not that active. Denies any symptoms with AF. Referred to Nephrology, appt in December. Sanitation Manager Dr. Gregg in [place] every 4-6 weeks. Gets shots for macular degeneration Past Medical History: Diagnosis Date Angina pectoris ([facility]) Arrhythmia Atrial fibrillation ([facility] Atrial flutter ([facility]) Atrial flutter ([facility]) Benign prostatic hyperplasia BPH with urinary obstruction Cancer ([facility]) skin cancer Cataract Constipation Coronary artery disease Dental disease no teeth Diabetes mellitus ([facility]) Diabetes mellitus type 2, controlled [place] Hypercholesterolemia Hypertension Myositis Peripheral neuropathy Rash Scalp wound Urinary incontinence Ventricular tachycardia ([facility]) Visual impairment glasses No data recorded No data recorded No data recorded Past Surgical History: Procedure Laterality Date 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; excision and debridement Left 10/29/2021 Performed by Ambrosio Al MD at [facility] AMPUTATION TOE 4TH & 5TH/WIDE INCISIONAL DEBRIDEMENT LEFT DIABETIC FOOT NECROTIZING FASCITIS Left 08/12/2021 Performed by Ambrosio Al MD at [facility] CARDIAC DEFIBRILLATOR PLACEMENT medtronic CATARACT EXTRACTION Coronary angiogram and left ventricular gram/pressure N/A 11/19/2018 Performed by Sage Jay MD at [facility] Coronary fractional flow reserve N/A 11/19/2018 Performed by Sage Jay MD at [facility] CYSTOSCOPY [facility] SOLUTION N/A 10/27/2021 Performed by Frederic Thorne MD at [facility] DC ICD RA lead replace - MDT N/A 07/21/2020 Performed by Yoni Espinoza MD at [facility] (EP) EP - Device DC ICD Left 11/20/2018 Performed by Shayna Betancourt MD at [facility] (EP) EP - Diagnostic-- EP study Right 11/16/2018 Performed by Rafita Garcia MD at [facility] (EP) INJECTION BLOCK NERVE MEDIAL BRANCH: bilat L 10/05, 10/31 Bilateral 05/03/2024 Performed by Alber Hyde MD at [facility] Loop recorder implant N/A 11/16/2018 Performed by Rafita Garcia MD at [facility] (EP) Loop recorder removal N/A 07/21/2020 Performed by Yoni Espinoza MD at [facility] (EP) SKIN CANCER EXCISION Family History Problem Relation Age of Onset [...] on file Food Insecurity: No Food Insecurity (09/04/2024) Hunger Screening Food Insecurity - Worry: Never True Food Insecurity - Inability: Never True Transportation Needs: Not on file Physical Activity: Not on file Stress: Not on file Social Connections: Not on file Interpersonal Safety: Unknown (08/24/2023) Received from [facility] Fear of Current or Ex-Partner: Not on file Emotionally Abused: Not on file Physically Abused: Not on file Sexually Abused: Not on file Physically or Sexually Abused: Not on file Housing Instability: Not on file Review of Systems Review of Systems Constitutional: Negative. HENT: Negative. Eyes: Negative. Cardiovascular: Negative. Respiratory: Negative. Endocrine: Negative. Hematologic/Lymphatic: Bruises/bleeds easily. Skin: Negative. Musculoskeletal: Negative. Gastrointestinal: Negative. Genitourinary: Negative. Neurological: Positive for loss of balance. Psychiatric/Behavioral: Negative. Allergic/Immunologic: Negative. Vascular: Negative.Positive for lower extremity wounds or ulcers. CARDIOVASCULAR: Please review HPI. Physical Examination General appearance: Alert, oriented and cooperative. In no acute distress. Respiratory: Clear to auscultation bilaterally, no use of accessory muscles. Cardiovascular: RRR with normal S1 and S2 with no murmurs. Extremities: Warm and dry, trace BLE edema, + wounds VITAL SIGNS: BP 120/72 Pulse 54 Ht 175.3 cm (5' 9 ) Wt 83 kg (183 lb) SpO2 97% BMI 27.02 kg/m No orders of the defined types were placed in this encounter. Medications Discontinued During This Encounter Medication Reason acidophilus-pectin, citrus 100 million cell-10 mg capsule Therapy completed carisoprodoL (SOMA) 350 mg tablet Therapy completed VITAMIN D3 25 mcg (1,000 unit) capsule Therapy completed tamsulosin (FLOMAX) 0.4 mg capsule Therapy completed sodium hypochlorite (DAKIN'S, HALF-STRENGTH,) 0.25 % external solution Therapy completed OZEMPIC 0.25 mg or 0.5 mg (2 mg/3 mL) pen injector Therapy completed magnesium oxide (MAG-OX) 400 mg tablet Therapy completed HYDROcodone-acetaminophen (NORCO) 5-325 mg per tablet Therapy completed cholecalciferol (VITAMIN D3) 1,000 units tablet Therapy completed IMPRESSIONS/PLAN 1. AICD present, double chamber - Device Interrogation; Future 2. Ventricular tachycardia (CMS-HCC) - POCT EKG 3. Encounter for monitoring amiodarone therapy - Pulmonary function test Complete PFT w/ BD (Spirometry (Flow Volume Loop) pre/post short acting bronchodilator w/ DLCO (diffusion study) and Lung Volume); Future - albuterol (PROVENTIL,VENTOLIN) nebulizer solution 2.5 mg 4. Paroxysmal atrial fibrillation (CMS-HCC) 5. Typical atrial flutter (CMS-HCC) 6. V-tach (CMS-HCC) 7. Essential hypertension Sustained monomorphic VT Initial episodes with EP study 2018, recurrent episodes on ILR S/p Medtronic dual-chamber ICD 2019 CXR revealed RA lead dislodgment pod 1. This was not recognized until a year later when he presented to [facility] EP. Suspected dislodged lead was causing AF which would stimulate monomorphic VT with subsequent ICD shocks S/p RA lead revision, ILR extraction 07/21/2020 High-risk antiarrhythmic - amiodarone Previously on sotalol with recurrent AFib, transitioned to amiodarone 05/2020 Paroxysmal atrial fibrillation/flutter S/p CTI RFA 11/26/2017 CHADS2 Vasc 4 for age, HTN, CAD, T2DM Preserved LV/valvular heart disease TTE 02/19/2021 shows LVEF 50-55%, moderate LAE, mild RA AE, trace AI, xwpc-vn-brbcvtig MR, mild TR, RVSP 31 mm Hg Nonobstructive CAD LHC 11/19/2018 showed single-vessel CAD (proximal LAD 60% stenosis) with negative FFR of 0.82, normal L SF Hypertension Dyslipidemia Type 2 diabetes mellitus with ulcerations S/p toe amputations Overall, patient is doing well from an EP standpoint BP controlled in office PCP managing lipids Discussed importance of controlling diabetes 2/2 infection risk with ulcerations which is concerning with implanted device. Instructed to contact office if any swelling, redness, tenderness, drainage, open areas were noted to device site EKG in office shows sinus rhythm at 70 beats per minute, QTC stable at 415ms In office device check shows mode VVI 40. Underlying sinus rhythm. 0% atrial paced, less than 0.1% RV paced. Stable thresholds. Estimated battery life 1.9-4 years. No ventricular detects. Atrial detects: 4 AT/AF max duration 6 hours 30 minutes 08/29/2024. Atrial burden less than 0.1%. Patient has home monitoring. Recent labs show TSH 4.67, potassium 4.5, creatinine 1.27, AST 16, ALT 16 on 05/09/2024. Hemoglobin 13.9 on 07/22/2024. Updated PFTs ordered for amiodarone monitoring. Otherwise, continue current cardiac medication regimen amiodarone 200 mg daily, aspirin 81 mg daily, Toprol 100 mg daily, Xarelto 20 mg daily Follow-up 1 year Patient was seen when Dr. Calderon was present and immediately available in office suite. TODAYS ORDERS Orders Placed This Encounter Procedures Device Interrogation POCT EKG Pulmonary function test Complete PFT w/ BD (Spirometry (Flow Volume Loop) pre/post short acting bronchodilator w/ DLCO (diffusion study) and Lung Volume) FOLLOW UP Return in about 1 year (around 09/04/2025). PCP: [facility] Nathaniel Referring Physician: No referring provider defined for this encounter. JOSE MIGUEL Ribeiro 09/04/24 [id number] documented in this encounter [facility] 09-04-2024 History of Present illness Narrative I agree with the findings in the scanned document. documented in this encounter [facility] 09-03-2024 Miscellaneous Notes Called patient to remind them to bring their most current copy of their medication list with them to their appt. Patient verbalizes understanding. documented in this encounter [facility] 09-03-2024 Telephone encounter Note Called patient to remind them to bring their most current copy of their medication list with them to their appt. Patient verbalizes understanding. [facility] 09-03-2024 Miscellaneous Notes Called patient to remind them to bring their most current copy of their medication list with them to their appt. Patient verbalizes understanding. documented in this encounter [facility] 09-03-2024 Telephone encounter Note Called patient to remind them to bring their most current copy of their medication list with them to their appt. Patient verbalizes understanding. [facility] 07-12-2024 Miscellaneous Notes Samantha 03/08/23 Pt has future appt 07/24/24 documented in this encounter [facility] 07-12-2024 Telephone encounter Note Samantha 03/08/23 Pt has future appt 07/24/24 [facility] 05-23-2024 History of Present illness Narrative [facility] [address] [place] [address] Patient: Tomas Frausto Sex: male : 1955 Age: 69 y.o. PCP: [facility] Nathaniel 05/23/2024 Tomas Frausto is here for a(n) [...] Past Medical History: Diagnosis Date Angina pectoris ([facility]) Arrhythmia Atrial fibrillation ([facility]) Atrial flutter ([facility]) Atrial flutter ([facility]) Benign prostatic hyperplasia BPH with urinary obstruction Cancer ([facility]) skin cancer Cataract Constipation Coronary artery disease Dental disease no teeth Diabetes mellitus ([facility]) Diabetes mellitus type 2, controlled [place] [place] [place] Hypercholesterolemia Hypertension Myositis Peripheral neuropathy Rash Scalp wound Urinary incontinence Ventricular tachycardia [place] [place] Visual impairment glasses Past Surgical History: Procedure Laterality Date 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; excision and debridement Left 10/29/2021 Performed by Ambrosio lA MD at [facility] AMPUTATION TOE 4TH & 5TH/WIDE INCISIONAL DEBRIDEMENT LEFT DIABETIC FOOT NECROTIZING FASCITIS Left 08/12/2021 Performed by Ambrosio Al MD at [facility] CARDIAC DEFIBRILLATOR PLACEMENT medtronic CATARACT EXTRACTION Coronary angiogram and left ventricular gram/pressure N/A 11/19/2018 Performed by Sage Jay MD at [facility] Coronary fractional flow reserve N/A 11/19/2018 Performed by Sage Jay MD at [facility] CYSTOSCOPY [facility] SOLUTION N/A 10/27/2021 Performed by Frederic Thorne MD at [facility] DC ICD RA lead replace - MDT N/A 07/21/2020 Performed by Yoni Espinoza MD at [facility] (EP) EP - Device DC ICD Left 11/20/2018 Performed by Shayna Betancourt MD at [facility] (EP) EP - Diagnostic-- EP study Right 11/16/2018 Performed by Rafita Garcia MD at [facility] (EP) INJECTION BLOCK NERVE MEDIAL BRANCH: bilat L 10/05, 10/31 Bilateral 05/03/2024 Performed by Alber Hyde MD at [facility] Loop recorder implant N/A 11/16/2018 Performed by Rafita Garcia MD at [facility] (EP) Loop recorder removal N/A 07/21/2020 Performed by Yoni Espinoza MD at [facility] (EP) SKIN CANCER EXCISION No Known Allergies [...] Interpersonal Safety: Unknown (08/24/2023) Received from [facility] Fear of Current or [...] accurate and complete. Caridad Wallis RN 05/23/24 2020 EDWARD Benavides 05/23/24 [id number] documented in this encounter [facility] 05-23-2024 Miscellaneous Notes Last OV 03/08/23. Letter sent to pt 02/23. Attempted to call pt, no VM box set up. Letter sent. Pt will need appointment for future refills. documented in this encounter [facility] 05-23-2024 Telephone encounter Note Last OV 03/08/23. Letter sent to pt 02/23. Attempted to call pt, no VM box set up. Letter sent. Pt will need appointment for future refills. [facility] 04-09-2024 History of Present illness Narrative [facility] [facility] [address] [place] [address] Patient: Tomas Frausto Sex: male : 1955 [...] Past Medical History: Diagnosis Date Angina pectoris ([facility]) Arrhythmia Atrial fibrillation ([facility]) Atrial flutter ([facility]) Atrial flutter ([facility]) Benign prostatic hyperplasia BPH with urinary obstruction Cancer ([facility]) skin cancer Cataract Constipation Coronary artery disease Dental disease no teeth Diabetes mellitus ([facility]) Diabetes mellitus type 2, controlled [place] Hypercholesterolemia Hypertension Myositis Peripheral neuropathy Rash Scalp wound Urinary incontinence Ventricular tachycardia [place] Visual impairment glasses Past Surgical History: Procedure Laterality Date 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; excision and debridement Left 10/29/2021 Performed by Ambrosio Al MD at [facility] AMPUTATION TOE 4TH & 5TH/WIDE INCISIONAL DEBRIDEMENT LEFT DIABETIC FOOT NECROTIZING FASCITIS Left 08/12/2021 Performed by Ambrosio Al MD at [facility] CARDIAC DEFIBRILLATOR PLACEMENT medtronic CATARACT EXTRACTION Coronary angiogram and left ventricular gram/pressure N/A 11/19/2018 Performed by Sage Jay MD at [facility]ATH [facility] Coronary fractional flow reserve N/A 11/19/2018 Performed by Sage Jay MD at [facility]ATH [facility] CYSTOSCOPY [facility] SOLUTION N/A 10/27/2021 Performed by Frederic Thorne MD at [facility] DC ICD RA lead replace - MDT N/A 07/21/2020 Performed by Yoni Espinoza MD at [facility] (EP) EP - Device DC ICD Left 11/20/2018 Performed by Shayna Betancourt MD at [facility] (EP) EP - Diagnostic-- EP study Right 11/16/2018 Performed by Rafita Garcia MD at [facility] (EP) Loop recorder implant N/A 11/16/2018 Performed by Rafita Garcia MD at [facility] (EP) Loop recorder removal N/A 07/21/2020 Performed by Yoni Espinoza MD at [facility] (EP) SKIN CANCER EXCISION No Known Allergies [...] Interpersonal Safety: Unknown (08/24/2023) Received from [facility] Fear of Current or [...] these patients; however, close collaboration with a abstract checker or non destructive evaluation specialist is recommended before initiating the RFN procedure, therefore prior to RFA we will consult with patient's abstract checker/non destructive evaluation specialist for approval and recommendations to proceed with [...] Benavides 04/11/24 1226 documented in this encounter [facility] 04-09-2024 Instructions Chula Bonilla CNA - 04/09/2024 [...] in this encounter [facility] 02-22-2024 History of Present illness Narrative [facility] [address] [place] [address] Patient: Tomas Frausto Sex: male : 1955 Age: 68 y.o. PCP: [facility] Nathaniel 02/22/2024 Tomas Frausto is here for a(n) follow up. Continues [...] Past Medical History: Diagnosis Date Angina pectoris ([facility]) Arrhythmia Atrial fibrillation ([facility] Atrial flutter ([facility]) Atrial flutter ([facility]) Benign prostatic hyperplasia BPH with urinary obstruction Cancer ([facility]) skin cancer Cataract Constipation Coronary artery disease Dental disease no teeth Diabetes mellitus ([facility]) Diabetes mellitus type 2, controlled [place] Hypercholesterolemia Hypertension Myositis Peripheral neuropathy Rash Scalp wound Urinary incontinence Ventricular tachycardia ([facility]) Visual impairment glasses Past Surgical History: Procedure Laterality Date 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; excision and debridement Left 10/29/2021 Performed by Ambrosio Al MD at [facility] AMPUTATION TOE 4TH & 5TH/WIDE INCISIONAL DEBRIDEMENT LEFT DIABETIC FOOT NECROTIZING FASCITIS Left 08/12/2021 Performed by Ambrosio Al MD at [facility] CARDIAC DEFIBRILLATOR PLACEMENT medtronic CATARACT EXTRACTION Coronary angiogram and left ventricular gram/pressure N/A 11/19/2018 Performed by Sage Jay MD at [facility]ATH [facility] Coronary fractional flow reserve N/A 11/19/2018 Performed by Sage Jay MD at [facility]ATH [facility] CYSTOSCOPY [facility] SOLUTION N/A 10/27/2021 Performed by Frederic Thorne MD at [facility] DC ICD RA lead replace - MDT N/A 07/21/2020 Performed by Yoni Espinoza MD at [facility] (EP) EP - Device DC ICD Left 11/20/2018 Performed by Shayna Betancourt MD at [facility] (EP) EP - Diagnostic-- EP study Right 11/16/2018 Performed by Rafita Garcia MD at [facility] (EP) Loop recorder implant N/A 11/16/2018 Performed by Rafita Garcia MD at [facility] (EP) Loop recorder removal N/A 07/21/2020 Performed by Yoni Espinoza MD at [facility] () SKIN CANCER EXCISION No Known Allergies [...] Interpersonal Safety: Unknown (08/24/2023) Received from [facility] Fear of Current or [...] assisted with ambulatory aid(s): W/C. Assessment/Treatment Plan: Tomas was seen today for [...] Benavides 02/29/24 1218 documented in this encounter [facility] 02-21-2024 Miscellaneous Notes 02/21/24 Remember to arrange Mar 2024 annual offc appt. Please contact pt to arrange. documented in this encounter [facility] 02-21-2024 Miscellaneous Notes OV-03/08/2023 documented in this encounter [facility] 02-21-2024 Telephone encounter Note 02/21/24 Remember to arrange Mar 2024 annual offc appt. Please contact pt to arrange. [facility] 02-21-2024 Telephone encounter Note OV-03/08/2023 [facility] 01-17-2024 Miscellaneous Notes Martha Merlos RN states he is needing a prescription for Tramadol. She is requesting it as it was ordered while in the hospital because this has been effective for him. ( 50 mg every 8 hours ). 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 documented in this encounter [facility] 01-17-2024 Telephone encounter Note Martha Merlos RN states he is needing a prescription for Tramadol. She is requesting it as it was ordered while in the hospital because this has been effective for him. ( 50 mg every 8 hours ). 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 [facility] 01-11-2024 Miscellaneous Notes Patients friend came to window with request to get soma medication refilled. Provider stated we do not fill soma and friend instructed with information and to reach out pcp as they were the ones who provided patient with the rx. Friend verbalized understanding. documented in this encounter [facility] 01-11-2024 Telephone encounter Note Patients friend came to window with request to get soma medication refilled. Provider stated we do not fill soma and friend instructed with information and to reach out pcp as they were the ones who provided patient with the rx. Friend verbalized understanding. [facility] 01-09-2024 History of Present illness Narrative [facility] [address] [address] Patient: Tomas Frausto Sex: male : 1955 Age: 68 y.o. PCP: [facility] Nathaniel 01/09/2024 Tomas Frausot is here for a(n) initial consultation for [...] 10/29/2021 Performed by Ambrosio Al MD at [facility] AMPUTATION TOE 4TH & 5TH/WIDE INCISIONAL DEBRIDEMENT LEFT DIABETIC FOOT NECROTIZING FASCITIS Left 08/12/2021 Performed by Ambrosio Al MD at [facility] CARDIAC DEFIBRILLATOR PLACEMENT medtronic CATARACT EXTRACTION Coronary angiogram and left ventricular gram/pressure N/A 11/19/2018 Performed by Sage Jay MD at [facility]ATH [facility] Coronary fractional flow reserve N/A 11/19/2018 Performed by Sage Jay MD at [facility]ATH [facility] CYSTOSCOPY [facility] SOLUTION N/A 10/27/2021 Performed by Frederic Thorne MD at [facility] DC ICD RA lead replace - MDT N/A 07/21/2020 Performed by Yoni Espinoza MD at [facility] (EP) EP - Device DC ICD Left 11/20/2018 Performed by Shayna Betancourt MD at [facility] (EP) EP - Diagnostic-- EP study Right 11/16/2018 Performed by Rafita Garcia MD at [facility] (EP) Loop recorder implant N/A 11/16/2018 Performed by Rafita Garcia MD at [facility] (EP) Loop recorder removal N/A 07/21/2020 Performed by Yoni Espinoza MD at [facility] (EP) SKIN CANCER EXCISION No Known Allergies [...] Interpersonal Safety: Unknown (08/24/2023) Received from [facility] Fear of Current or [...] assisted with ambulatory aid(s): W/C. Assessment/Treatment Plan: Tomas was seen today for [...] Bonilla CNA 01/09/24 1323 EDWARD Benavides 01/11/24 0966 documented in this encounter [facility] 08-09-2022 Note PROCEDURE: XR FOOT [...] by: EDILSON DON Date: 2022-08-09 15:44 [facility] Evaluation note Diagnosis Enuresis- Primary Functional urinary [...] Paroxysmal ventricular tachycardia [facility] Diagnosis Lumbar spondylolysis- Primary Lumbosacral spondylosis without myelopathy [facility] Diagnosis Atrial fibrillation, unspecified type (CMS-HCC)- Primary [facility] Diagnosis Ventricular tachycardia (CMS-HCC) Paroxysmal ventricular tachycardia Atrial fibrillation with RVR (CMS-HCC) V-tach (CMS-HCC) Paroxysmal ventricular tachycardia [facility] Diagnosis Lumbosacral spondylosis without myelopathy- Primary Disc displacement, lumbar Displacement of lumbar intervertebral disc without myelopathy Lumbar radiculopathy, chronic [facility] Diagnosis Lumbosacral spondylosis without myelopathy- Primary Lumbosacral spondylosis without myelopathy- Primary Lumbosacral spondylosis without myelopathy documented [facility] Diagnosis Enuresis- Primary Functional urinary incontinence BPH (benign prostatic hypertrophy) with urinary obstruction- Primary Hypertrophy of prostate with urinary obstruction and other lower urinary tract symptoms (LUTS) Benign prostatic hyperplasia with urinary obstruction- Primary Urinary retention- Primary Unspecified retention of urine Benign prostatic hyperplasia with urinary obstruction Lumbosacral spondylosis without myelopathy- Primary documented [facility] Diagnosis Enuresis- Primary Functional urinary incontinence BPH (benign prostatic hypertrophy) with urinary obstruction- Primary Hypertrophy of prostate with urinary obstruction and other lower urinary tract symptoms (LUTS) Benign prostatic hyperplasia with urinary obstruction- Primary Urinary retention- Primary Unspecified retention of urine Benign prostatic hyperplasia with urinary obstruction Ventricular tachycardia ([facility]) Paroxysmal ventricular tachycardia Atrial fibrillation with RVR ([facility]) V-tach ([facility]) Paroxysmal ventricular tachycardia [facility] Diagnosis Enuresis- Primary Functional urinary incontinence BPH (benign prostatic hypertrophy) with urinary obstruction- Primary Hypertrophy of prostate with urinary obstruction and other lower urinary tract symptoms (LUTS) Benign prostatic hyperplasia with urinary obstruction- Primary Urinary retention- Primary Unspecified retention of urine Benign prostatic hyperplasia with urinary obstruction Ventricular tachycardia ([facility])- Primary Paroxysmal ventricular tachycardia AICD present, double chamber Encounter for monitoring amiodarone therapy Paroxysmal atrial fibrillation ([facility]) Atrial fibrillation Typical atrial flutter ([facility]) V-tach ([facility]) Paroxysmal ventricular tachycardia Essential hypertension Unspecified essential hypertension [facility] Diagnosis Enuresis- Primary Functional urinary incontinence BPH (benign prostatic hypertrophy) with urinary obstruction- Primary Hypertrophy of prostate with urinary obstruction and other lower urinary tract symptoms (LUTS) Benign prostatic hyperplasia with urinary obstruction- Primary Urinary retention- Primary Unspecified retention of urine Benign prostatic hyperplasia with urinary obstruction AICD present, double chamber- Medtronic- Primary [facility] Diagnosis Enuresis- Primary Functional urinary incontinence BPH (benign prostatic hypertrophy) with urinary obstruction- Primary Hypertrophy of prostate with urinary obstruction and other lower urinary tract symptoms (LUTS) Benign prostatic hyperplasia with urinary obstruction- Primary Urinary retention- Primary Unspecified retention of urine Benign prostatic hyperplasia with urinary obstruction Critical limb ischemia of left lower extremity with gangrene ([facility])- Primary PVD (peripheral vascular disease) Unspecified peripheral vascular disease [facility] Diagnosis Acute pain of right knee- Primary Arthritis of right knee Effusion of right knee [facility] Diagnosis Paronychia of great toe of right foot- Primary Angiopathy, diabetic ([facility]) Type II or unspecified type diabetes mellitus with peripheral circulatory disorders, not stated as uncontrolled Diabetic polyneuropathy associated with type 2 diabetes mellitus (CMS/HCC) Status post partial amputation of left foot (CMS/HCC) documented [facility] this encounter [facility]* Diagnosis Enuresis- Primary Functional urinary incontinence BPH (benign prostatic hypertrophy) with urinary obstruction- Primary Hypertrophy of prostate with urinary obstruction and other lower urinary tract symptoms (LUTS) Benign prostatic hyperplasia with urinary obstruction- Primary Urinary retention- Primary Unspecified retention of urine Benign prostatic hyperplasia with urinary obstruction Critical limb ischemia of left lower extremity with gangrene (CMS-HCC)- Primary PVD (peripheral vascular disease) Unspecified peripheral vascular disease Critical limb ischemia of left lower extremity with gangrene (CMS-HCC)- Primary [facility] Family History Records FoundNo Family History Records FoundNo Family History Records FoundNo Family History Records FoundNo Family History Records [...] Procedures MR lumbar spine without contrast Bebeto Haq PA [address], [address] [place] [id number] [facility] [address] [place] [address] Phone: [phone] Referral ID Status Reason Start Date Expiration Date V isits Requested Visits Authorized [id number] Pending Review 02/22/2024 02/21/2025 1 1 Specialty Diagnoses / Procedures Referred By Contac t Referred To Contact Diagnoses Lumbosacral spondylosis without myelopathy Procedures Case request operating room: INJECTION BLOCK NERVE MEDIAL BRANCH: bilat L45 [id number] Bebeto Haq PA [address], [address] [place] [id number] Referral ID Status Reason Start Date Expiration Date V isits Requested Visits Authorized [id number] Pending Review 04/09/2024 04/09/2025 1 1 Additional Source Comments (unrecognized sect ion and content) No Status Records FoundNo Status Records FoundNo Status Records FoundNo Status Records FoundNo Status Records Found INFORMATION SOURCE (unrecogn ized section and content) DATE CREATED AUTHOR 11/16/2022 [facility] DATE CREATED AUTHOR AUTHOR'S ORGANIZ ATION 09/24/2024 [facility] DATE CREATED AUTHOR AUTHOR'S ORGANIZ ATION 09/27/[address] [facility] Ambulatory [facility] DATE CREATED AUTHOR AUTHOR'S ORGANIZ ATION 09/28/2024 [facility] DATE CREATED AUTHOR AUTHOR'S ORGANIZ ATION 10/05/2024 [facility] EPIC Reason for Visit (unrecogniz ed section and content) Reason Comments Med Change Request Reason Comments Back Pain Reason Comments Med Refill Reason Comments Back Pain Reason Comments Follow-up ov/pm need for med r efills hemalatha w pt friend Don r/s w pt friend Stevenson gil 08/27 Reason Comments Device Check Reason Comments New patient Referral for louis ateral lower extremities blood New patient Referral for bilateral lower extremities blood flow issues, Pvd chronic left foot wound Specialty Diagnoses / Procedures Referred By Fly t Referred To Contact Vascular Surgery Diagnoses PVD (peripheral vascular disease) Mariana Solomon, DPM [address] [place] [address] Phone: tel: fax: [facility] [address] [place] [address] Phone: tel:[phone] fax: Referral ID Status Reason Start Date Expiration Date Visits Requested Visits Authorized [id number] Pending Review Specialty Services Required 08/28/2024 08/28/2025 1 1 Reason Comments Pain Reason Comments Toe Pain Tomas Frausto 69yo New Patient last seen 07/12/2021. Patient is diabetic. Concerns of Right great toenail infection, patient relates drainage, thick and painful. Patient is seeing wound care in [place] for possible partial amputation of left foot, due to non-healing after amputation surgery 3 years ago, in [place]. Currently taking cephalexin for left foot infection. Left leg blood clot as of last week, patient is on aspirin and Xarelto. BS [address] Bernard 09/30/2024 SS 10 Reason Comments ANGIO 09-27-24 Care Teams (unrecognized sec tion and content) Internet Marketing Coordinator Relationship Specialty Start Date End Date Services, [facility] [address] [place], [place] PCP - General Family Medicine 04/16/24 Internet Marketing Coordinator Relationship Specialty Start Date End Date [facility] [address] [place] PCP - General Family Medicine 12/26/23 Internet Marketing Coordinator Relationship Specialty Start Date End Date Services, [facility] [address] [place] PCP - General Family Medicine 12/26/23 Internet Marketing Coordinator Relationship Specialty Start Date End Date Services, [facility] [address] [place], [place] PCP - General Family Medicine 12/26/23 Internet Marketing Coordinator Relationship Specialty Start Date End Date Services, [facility] [address] [place], [place] PCP - General Family Medicine 12/26/23 Internet Marketing Coordinator Relationship Specialty Start Date End Date Services, [facility] [address] [place], [place] PCP - General Family Medicine 12/26/23 Internet Marketing Coordinator Relationship Specialty Start Date End Date Services, [facility] [address] [place], [place] PCP - General Family Medicine 12/26/23 Internet Marketing Coordinator Relationship Specialty Start Date End Date Services, [facility] [address] [place], [place] PCP - General Family Medicine 04/16/24 Internet Marketing Coordinator Relationship Specialty Start Date End Date Services, [facility] [address] [place], [place] PCP - General Family Medicine 04/16/24 Internet Marketing Coordinator Relationship Specialty Start Date End Date Services, [facility] [address] [place], [place] PCP - General Family Medicine 04/16/24 Internet Marketing Coordinator Relationship Specialty Start Date End Date Services, [facility] [address] [place], [place] PCP - General Family Medicine 04/16/24 Internet Marketing Coordinator Relationship Specialty Start Date End Date Services, [facility] [address] [place], [place] PCP - General Family Medicine 04/16/24 Internet Marketing Coordinator Relationship Specialty Start Date End Date Services, [facility] [address] [place], [place] PCP - General Family Medicine 04/16/24 Internet Marketing Coordinator Relationship Specialty Start Date End Date Bradley Bernard PA [address] [place] [address] PCP - General Family Medicine 10/02/24 Internet Marketing Coordinator Relationship Specialty Start Date End Date Bradley Bernard PA [address] [place] [address] PCP - General Family Medicine 10/02/24 Internet Marketing Coordinator Relationship Specialty Start Date End Date Bradley Brenard PA [address] [place] [address] PCP - General Family Medicine 10/02/24 Internet Marketing Coordinator Relationship Specialty Start Date End Date Bradley Bernard PA [address] [place] [address] PCP - General Family Medicine 10/02/24 FOR RECORDS PERTAINING TO PATIENTS WHO ARE [...] BE BASED ON THE PRIMARY CLINICAL RECORDS. [employer] [facility]. provides no warranty or guarantee of the accuracy or completeness of information in this document.
== END 2024-10-11 10:55 | disposition home or self-care (01) ==
LOC: WC 10:54
PROVIDERS: Visit Provider Podiatrist Foot & Ankle Surgery
DX: E11.621 Type 2 diabetes mellitus with foot ulcer (principal); L97.421 Non-pressure chronic ulcer of left heel and midfoot limited to breakdown of skin
CPT/HCPCS: G0463

== ENCOUNTER 2024-10-23 12:48 | Outpatient (OUT) | payer MEDICARE, MEDICAID, SELFPAY ==
[2024-10-23 14:34] LABS: Basophils Percent Auto 0.6 % (0.2-2.0); Eosinophils Percent Auto 0.8 % (0.9-7.0); Hematocrit 38.6 % (42.0-54.0); Hemoglobin 12.3 g/dL (14.0-18.0); Immature Granulocytes Abs Auto 0.02 10^3/uL (0.00-0.03); Immature Granulocytes Pct Auto 0.4 % (0.0-0.5); Lymphocytes Absolute Auto 1.4 10^3/uL (1.2-3.8); Lymphocytes Percent Auto 27.4 % (20.5-60.0); Mean Corpuscular HGB Conc 31.9 g/dL (29.9-35.2); Mean Corpuscular Hemoglobin 29.1 pg (25.9-34.0); Mean Corpuscular Volume 91.5 fL (80.0-94.0); Mean Platelet Volume 9.8 fL (9.5-13.5); Monocytes Absolute Auto 0.7 10^3/uL (0.3-0.8); Monocytes Percent Auto 12.4 % (1.7-12.0); Neutrophils Absolute Auto 3.1 10^3/uL (1.4-6.5); Neutrophils Percent Auto 58.4 % (43.0-75.0); Platelet Count 282 10^3/uL (150-450); Red Blood Count 4.22 10^6/uL (4.70-6.10); Red Cell Distribution Width 14.8 % (11.0-15.0); White Blood Count 5.3 10^3/uL (4.0-11.0)
--- NOTE | 2024-10-23 14:34 | XR_ITS ---
[address] [address] Patient Name: RADHA QUIÑONES MRN: [id number] date: 1955 Sex: M Assigned Patient Location: [facility] Current Patient Location: [facility] Accession/Order Number: [id number] Exam Date: 10/23/2024 15:07 Report Date: 10/23/2024 15:08 At the request of: MARIANA PHILLIPS DPM Procedure: XR chest 2V Plain film chest 2 view HISTORY: Presurgical assessment COMPARISON: None FINDINGS: SUPPORT DEVICES: None POSTSURGICAL CHANGES: Cardiac device intact HEART: Within normal limits PULMONARY MARNIE: Within normal limits MEDIASTINUM: Unremarkable LUNGS AND PLEURA: No acute lung process, pleural effusion or pneumothorax identified. Low lung volumes with bronchovascular crowding and mild atelectasis BONY STRUCTURES: Intact ADDITIONAL FINDINGS None XR/XR chest 2V IMPRESSION: No acute process. Low lung volumes. Impression dictated by: Rodri Shrestha M.D.10/23/2024 3:08 PM Dictation Location: [place] [address] Electronically authenticated by: [id number] Y Date: 10/23/2024 15:08
[2024-10-23 14:47] VITALS: BP 108/69; PULSE 59; TEMP 36.3; O2SAT 97; BMI 26.9
[2024-10-23 14:48] LABS: Calcium 9.2 mg/dL (8.5-10.1); Carbon Dioxide 29.3 mmol/L (21.0-32.0); Chloride 98 mmol/L (98-107); Estimated GFR (African America >60 (>=60 mL/min/1.73m^2); Estimated GFR (Non-African Ame 51 (>=60 mL/min/1.73m^2); Glucose 210 mg/dL (74-106); Potassium 4.3 mmol/L (3.5-5.1); Sodium 134 mmol/L (136-145)
[2024-10-23 15:14] LABS: INR 1.23; Partial Thromboplastin Time 35.8 sec (22.3-36.2); Prothrombin Time 12.8 sec (9.0-11.6)
== END 2024-10-23 12:49 | disposition home or self-care (01) ==
LOC: PST 12:52
PROVIDERS: Visit Provider Podiatrist Foot & Ankle Surgery
DX: Z01.810 Encounter for preprocedural cardiovascular examination (principal); Z01.812 Encounter for preprocedural laboratory examination; M21.6X2 Other acquired deformities of left foot; E11.8 Type 2 diabetes mellitus with unspecified complications
CPT/HCPCS: 36415; 71046; 80048; 85025; 85610; 85730

== ENCOUNTER 2024-11-11 10:43 | Outpatient (OUT) | payer MEDICARE, MEDICAID, SELFPAY ==
--- OUTSIDE RECORDS SUMMARY | 2024-11-11 11:05 | XMS_ITS | CCD ---
Author Organization [facility] Care Team Providers Care Portfolio Architect Name Role Phone MARIANA GUTIÉRREZ Attending Unavailable MARIANA GUTIÉRREZ Admitting Unavailable HIGHLANDER, MARIANA Liu Attending Unavailable MARIANA GUTIÉRREZ Admitting Unavailable HIGHLANDERMARIANA Admitting Unavailable CARMENANDERMARIANA Attending Unavailable SHANTANUCHET Admitting Unavailable CHET FOURNIER Attending Unavailable MARIANA GUTIÉRREZ Admitting Unavailable CARMENANDERMARIANA Attending Unavailable MARIANA GUTIÉRREZ Admitting Unavailable ZIEBERDR EDILSON Consulting Unavailable HIGHLANDERMARIANA Attending Unavailable HIGHLANDERMARIANA Consulting Unavailable HIGHLANDERMARIANA Admitting Unavailable HIGHLANDERMARIANA Consulting Unavailable CARMENANDERMARIANA Attending Unavailable Services, [facility] Primary Care Provider Services, [facility] Primary Care Provider Services, [facility] Primary Care Provider GRETTA WHITLOCK F Admitting Unavailable DEREK, MOHAMED F Attending Unavailable DEREK, MOHAMED F Referring Unavailable SERVICES, [facility] Primary Care Unava ilable Bradley Saucedo Primary Care Provider BEBETO SIMON Attending Unavailable EDILSON GUZMAN Attending Unavailable DEREK MOHCARLITOS F Attending Unavailable SERVICES, [facility] Primary Care Unava ilable GRETTA WHITLOCK F Attending Unavailable MARIANA GUTIÉRREZ Referring Unavailable SERVICES, [facility] Primary Care Unava ilable SERVICES, [facility] Primary Care Unava ilable EDILSON FERNANDES Attending Unavailable VANDANA BRAR Attending Unavailable VANDANA BRAR Referring Unavailable SERVICES, [facility] Primary Care Unava ilable VANDANA BRAR Attending Unavailable VANDANA BRAR Referring Unavailable SERVICES, [facility] Primary Care Unava ilable VANDANA BRAR Attending Unavailable VANDANA BRAR Referring Unavailable SERVICES, [facility] Care Unava ilable VANDANA BRAR Attending Unavailable TYRESE, VANDANA Awad Referring Unavailable SERVICES, [facility] Care Unava ilable VANDANA BRAR Attending Unavailable SERVICES, [facility] Unava ilable SERVICES, [facility] Unava ilable MARIANA GUTIÉRREZ Referring Unavailable SERVICES, [facility] Unava ilable JUAN ANTONIO, BEBTEO Mera Attending Unavailable ALBER HYDE Referring Unavailable SERVICES, [facility] Unava ilable IZZY SAM Referring Unavailable SERVICES, [facility] Unava ilable DIMITRI, ALBER Valera Attending Unavailable HYDE, ALBER Valera Referring Unavailable SERVICES, [facility] Unava ilable HYDE, ALBER Valera Admitting Unavailable HYDE, ALBER Valera Attending Unavailable HYDEALBER BOONE Referring Unavailable SERVICES, [facility] Unava ilable CHEHADE, DIVYA Valera Attending Unavailable NIENBERG, BEBETO Mera Attending Unavailable HYDEALBER BOONE Referring Unavailable SERVICES, [facility] Unava ilable NIENBERG, BEBETO Mera Attending Unavailable NIENBERG, BEBETO Mera Referring Unavailable SERVICES, [facility] Unava ilable NICHAUNCEY, BEBETO Mera Attending Unavailable HYDEALBER BOONE Referring Unavailable SERVICES, [facility] Unava ilable NIENBERG, BEBETO Mera Attending Unavailable BRUCEJACKIE THOMAS Referring Unavailable SERVICES, [facility] Unava ilable CHEHADE, DIVYA Valera Attending Unavailable CHEHADE, DIVYA E Referring Unavailable SERVICES, [facility] Unava ilable CHEHADE, DIVYA Valera Attending Unavailable CHEHADE, DIVYA Valera Referring Unavailable SERVICES, [facility] Unava ilable CHEHADE, DIVYA Valera Attending Unavailable SERVICES, [facility] Unava ilable Medications Current Medications Medication Drug Class(es) Dates Sig (Normalized) Sig (Original) 8 hr acetaminophen 650 mg extended release oral tablet (18 sources) take 1 tablet by mouth every [...] morning. Active atorvastatin 20 mg oral tablet (8 sources) HMG-CoA Reductase Inhibitor Start: 09-02-2024 take [...] oral tablet (14 sources) Opioid Agonist End: take 1 tablet by mouth every six hours as needed for pain HYDROcodone-acetaminop hen (NORCO) 5-325 mg per tablet Take 1 tablet by mouth every 6 (six) hours as needed for pain. 09/04/2024 Discontinued (Therapy completed) carisoprodol 350 mg oral tablet (14 sources) Muscle Relaxant Start: End: take 1 tablet by mouth three times [...] instructed. 09/04/2024 Discontinued (Therapy completed) lactobacillus acidophilus [id number] unt / pectin 10 mg oral capsule [...] Coronary atherosclerosis; 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: [Atherosclerotic heart disease of [place] coronary artery without angina pectoris] Onset: 12-04-2018 12-04-2018 Chronic Diabetes mellitus with complications (20 sources) Type 2 diabetes mellitus with other skin ulcer; 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: [Type 2 diabetes mellitus with diabetic nephropathy] Onset: 04-18-2018 Chronic Disorders of lipid metabolism (18 sources) Pure hypercholesterolemia ; 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: [Pure hypercholesterolemia , unspecified] Onset: 12-04-2018 12-04-2018 Chronic E Codes: Fall (1 source) Fall Onset: 04-16-2024 Essential hypertension (20 sources) Essential (primary) hypertension; 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: [Essential hypertension] Onset: 11-17-2021 11-17-2021 Chronic Gangrene (6 sources) Critical lower limb ischemia ; 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: [Atherosclerosis of [place] arteries of extremities with gangrene, left leg] Onset: 09-26-2024 09-26-2024 Chronic Genitourinary symptoms and ill-defined conditions (17 sources) Functional urinary incontinence; 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: [Functional urinary [...] caused by tuberculosis or sexually transmitted disease) (17 sources) Osteomyelitis; 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: [Osteomyelitis, unspecified] Onset: 11-17-2021 11-17-2021 Chronic Nutritional deficiencies (1 source) Vitamin D deficiency, unspecified; 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: [VITAMIN D DEFICIENCY UNSPECIFIED] Onset: 08-26-2022 Chronic Osteoarthritis (5 sources) Arthritis of right knee; 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: [Unilateral primary osteoarthritis, right knee] Onset: 09-13-2024 10-02-2024 Chronic Other aftercare (1 source) Long-term current use of drug therapy; 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: [Encounter for therapeutic drug level monitoring] 09-04-2024 Episodic Other aftercare (1 source) Encounter for therapeutic drug level monitoring; 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: [Encounter for therapeutic drug level monitoring] Onset: 09-23-2024 Episodic Other aftercare (1 source) Other skilled nursing (current) drug therapy; 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: [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] Onset: 09-23-2024 Episodic Other bone disease and musculoskeletal deformities [...] Onset: 08-09-2022 Episodic Other non-traumatic joint disorders (4 sources) Effusion of right knee joint; 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: [Effusion, right knee] 10-02-2024 Episodic Other non-traumatic joint disorders (3 sources) Pain in right knee; 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: [Pain in joint, lower leg] Onset: 09-13-2024 10-02-2024 Episodic Other non-traumatic joint disorders (1 source) Knee pain Onset: 09-13-2024 Episodic Other nutritional; endocrine; and metabolic disorders (17 sources) Hypomagnesemia; 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: [Hypomagnesemia] Onset: 11-17-2021 11-17-2021 Chronic Peripheral and visceral atherosclerosis (3 sources) Peripheral vascular disease, unspecified; 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: [Peripheral vascular disease] Onset: 08-26-2022 09-26-2024 Chronic Skin and subcutaneous tissue infections (2 sources) Paronychia of toe of right foot; 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: [Cellulitis of right toe] 10-04-2024 Episodic Spondylosis; intervertebral disc disorders; other back problems (17 sources) Lumbosacral spondylosis without myelopathy; 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: [Spondylosis without myelopathy or radiculopathy, lumbosacral region] Onset: 02-22-2024 05-03-2024 Chronic Unclassified (1 source) CHRN KIDNEY DISEASE STG 3 UNSP; 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: [CHRN KIDNEY DISEASE STG 3 UNSP] Onset: 09-21-2022 Unclassified (1 source) critical limb ischemia Onset: 09-27-2024 Unclassified (1 source) ANGIO 09-27-24 Onset: 10-10-2024 Unclassified (1 source) EMS Onset: 09-13-2024 Unclassified (1 source) Ventricular tachycardia, unspecified; 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: [Ventricular tachycardia, unspecified] Onset: 12-16-2019 Unclassified (1 source) Device Check Onset: 09-04-2024 Past or Other Problems Problem Classification Problem Date Documented Date Episodic/Chronic Abdominal pain (1 source) Flank pain Onset: 12-26-2023 Episodic Complications of surgical procedures or medical care (17 sources) Non-healing surgical wound; 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: [Other complications of procedures, not elsewhere classified, initial encounter] Onset: 10-01-2021 10-01-2021 Episodic E Codes: Fall (1 source) Unspecified fall, initial encounter; 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: [Unspecified fall, initial encounter] Onset: 04-16-2024 Episodic Genitourinary symptoms and ill-defined conditions (17 sources) Scot hematuria; 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: [Gross hematuria] Onset: 09-15-2021 09-15-2021 Episodic Nonspecific chest pain (17 sources) Chest pain; 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: [Chest pain, unspecified] Onset: 11-22-2017 11-22-2017 Episodic Open wounds of head; neck; and trunk (17 sources) Open wound of scalp ; 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: [Unspecified open wound of scalp, initial encounter] Onset: 03-02-2018 03-02-2018 Episodic Other acquired deformities (1 source) Spondylolysis; 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: [Spondylolysis, lumbar region] 01-09-2024 Episodic Other connective tissue disease (17 sources) Myositis; 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: [Myositis, unspecified] Onset: 08-10-2021 08-10-2021 Episodic Other eye disorders (17 sources) Degenerative changes of anterior chamber angle; [...] discussed. Consent was given by the patient. [facility] Glucose (Bld) [Mass/Vol]on 0 09-27-2024 Urea nitrogen [Mass/Vol] 19 mg/dL Normal - [facility] XR KNEE RT 3 VWSon XR KNEE RT 3 VWS XR KNEE [...] Alfonso MD on 09/13/2024 12:54 PM Normal [facility] Device Interrogationon 09-04 [facility] Radiology Study observation (narrative) [facility] POCT EKGon 09-04-2024 [facility] CBC AND AUTO DIFFon 07-22-19 25 ABSOLUTE BASOPHIL 0.0 X10E9/L Normal 0.0-0.[address] [facility] Comment on above: Performed By: #### C GARDENIA, 1988-11 ####[facility] ([id number])[address] [place] [address] ABSOLUTE NEUTROPHIL 3.8 X10E9/L Normal 1.5-6.6 [facility] Comment on above: Performed By: #### Jerry VARNER, 1988-11 ####[facility] ([id number])[address] [place] [address] Basophils/100 WBC (Bld) 0.8 % Normal [facility] Comment on above: Performed By: #### Jerry VARNER, 1988-11 ####[facility] ([id number])[address] [place] [address] Eosinophils (Bld) [#/Vol] 0.0 10*3/uL Normal 0.0-0.4 [facility] Comment on above: Performed By: #### Jerry VARNER 1988-11 ####[facility] ([id number])[address] [place] [address] 74564 Eosinophils/100 WBC (Bld) 0.7 % Normal [facility] Comment on above: Performed By: #### Jerry VARNER 1988-11 ####[facility] ([id number])[address] [place] [address] Erythrocyte distribution width (RBC) [Ratio] 14.6 % Normal 11.5-15.0 [facility] Comment on above: Performed By: #### Jerry VARNER 1988-11 ####[facility] ([id number])[address] [place] [address] Hematocrit (Bld) [Volume fraction] 42.0 % Normal 39-49 [facility] Comment on above: Performed By: #### Jerry VARNER 1988-11 ####[facility] ([id number])[address] [place] [address] 99811 Hemoglobin (Bld) [Mass/Vol] 13.9 g/dL Normal 13.0-17.0 [facility] Comment on above: Performed By: #### Jerry VARNER, 1988-11 ####[facility] ([id number])[address] [place] [address] Lymphocytes (Bld) [#/Vol] 1.5 10*3/uL Normal 1.0-3.5 [facility] Comment on above: Performed By: #### Jerry VARNER, 1988-11 ####[facility] ([id number])[address] [place] [address] 87467 Lymphocytes/100 WBC (Bld) 24.7 % Normal [facility] Comment on above: Performed By: #### Jerry VARNER, 1988-11 ####[facility] ([id number])[address] [place] [address] 92871 MCH (RBC) [Entitic mass] 30.7 pg Normal 27-34 [facility] Comment on above: Performed By: #### Jerry VARNER, 1988-11 ####[facility] ([id number])[address] [place] [address] 84089 MCHC (RBC) [Mass/Vol] 33.0 g/dL Normal 32-36 [facility] Comment on above: Performed By: #### Jerry VARNER, 1988-11 ####[facility] ([id number])[address] [place] [address]33 MCV (RBC) [Entitic vol] 93 fL Normal 80-100 [facility] Comment on above: Performed By: #### Jerry VARNER, 1988-11 ####[facility] ([id number])[address] [place] [address] 90881 Monocytes (Bld) [#/Vol] 0.6 10*3/uL Normal 0-0.9 [facility] Comment on above: Performed By: #### Jerry VARNER, 1988-11 ####[facility] ([id number])[address] [place] [address] 71389 Monocytes/100 WBC (Bld) 9.7 % Normal [facility] Comment on above: Performed By: #### Jerry VARNER, 1988-11 ####[facility] ([id number])[address] [place] [address] 85566 Neutrophils/100 WBC (Bld) 64.1 % Normal [facility] Comment on above: Performed By: #### Jerry VARNER, 1988-11 ####[facility] ([id number])[address] [place] [address] 18656 Platelet mean volume (Bld) [Entitic vol] 8.2 fL Normal 7-12 [facility] Comment on above: Performed By: #### Jerry VARNER, 1988-11 ####[facility] ([id number])[address] [place] [address] 67595 Platelets (Bld) [#/Vol] 315 10*3/uL Normal 150-450 [facility] Comment on above: Performed By: #### Jerry VARNER 1988-11 ####[facility] ([id number])[address] [place] [address] 54207 RBC COUNT 4.52 X10E12/L Normal 4.10-5.70 [facility] Comment on above: Performed By: #### Jerry VARNER 1988-11 ####[facility] ([id number])[address] [place] [address] 88283 WBC (Bld) [#/Vol] 5.9 10*3/uL Normal 4.0-11.[address] [facility] Comment on above: Performed By: #### Jerry VARNER 1988-11 ####[facility] ([id number])[address] [place] [address] 67433 CRP [Mass/Vol]on 07-22-2024 C REACTIVE PROTEIN 1.9 mg/dL High 0.000-0.744 [facility] Comment on above: Performed By: #### Jerry VARNER 1988-11 ####[facility] ([id number])[address] [place] [address] 16898 ESR Photometric method (Bld) [Velocity]on 07-22-2024 ESR, ERYTHROCYTE SEDIMENTATION RATE 47 mm/h High 0-20 [facility] Comment on above: Performed By: #### 8 2477-1, HEMAL ####[facility] ([id number])[address], [address] [address] HGB A1C (GLYCO-HGB)on 2024 Glucose [Mass/Vol] 203 mg/dL Normal [facility] Comment on above: Performed By: #### 8 2477-1, CHIQUIS1C ####[facility] ([id number])[address] [address] HbA1c (Bld) [Mass fraction] 8.7 % High 4.4-5.6 [facility] Comment on above: Result Comment: NOTE ADA Guidelines Result HgbA1c Normal : less than 5.7 % Prediabetes : 5.7 % to 6.4 % Diabetes : > 6.4 % Use with caution in patients with abnormal hemoglobin variants as the half-life of red blood cells and in vivo glycation rates are affected. Performed By: #### 8 2477-1, HEMAL ####[facility] ([id number])[address], [address] [address] COMPREHENSIVE METABOLIC PANE Alex 05-09-2024 Albumin [Mass/Vol] 4.2 g/dL Normal 3.2-5.[address] [facility] Comment on above: Performed By: ###NURIA Milner MP ####[facility] ([id number])[address] [place] [address]#### [id number] ####[facility] ([id number])[address] [address] ALP [Catalytic activity/Vol] 46 U/L Normal 39-130 [facility] Comment on above: Performed By: #### NURIA Edwards MP ####[facility] ([id number])[address] [place] [address]#### [id number] ####[facility] ([id number])[address], [address], [place] [address] ALT [Catalytic activity/Vol] 16 U/L Normal 0-40 [facility] Comment on above: Performed By: #### Jerry HSIEH, TSHR ####[facility] ([id number])[address] [place] [address]#### [id number] ####[facility] ([id number])[address], [address], [place] [address] Anion gap [Moles/Vol] 10 mmol/L Normal 5-15 [facility] Comment on above: Performed By: #### Jerry HSIEH, TSHR ####[facility] ([id number])[address] [place] [address]#### [id number] ####[facility] ([id number])[address], [address], [place] [address] AST [Catalytic activity/Vol] 16 U/L Normal 0-41 [facility] Comment on above: Performed By: #### Jerry HSIEH, TSHR ####[facility] ([id number])[address] [place] [address]#### [id number] ####[facility] ([id number])[address], [address] [address] Bilirubin [Mass/Vol] 0.5 mg/dL Normal 0.3-1.2 [facility] Comment on above: Performed By: #### Jerry HSIEH, TSHR ####[facility] ([id number])[address] [place] [address]#### 15761-7 ####[facility] ([id number])[address], [place] [address] Calcium [Mass/Vol] 9.3 mg/dL Normal 8.5-10.[address] [facility] Comment on above: Performed By: #### Jerry HSIEH TSHR ####[facility] ([id number])[address] [place] [address]237#### [id number] ####[facility] ([id number])[address], [place] [address] Chloride [Moles/Vol] 99 mmol/L Normal 98-109 [facility] Comment on above: Performed By: #### Jerry HSIEH TSHR ####[facility] ([id number])[address] [place] [address]#### [id number] ####[facility] ([id number])[address], [address], [place] [address] CO2 [Moles/Vol] 26 mmol/L Normal 22-32 [facility] Comment on above: Performed By: #### Jerry HSIEH TSHR ####[facility] ([id number])[address] [place] [address]#### [id number] ####[facility] ([id number])[address], [place] [address] Creatinine [Mass/Vol] 1.27 mg/dL High 0.70-1.20 [facility] Comment on above: Result Comment: METH OD TRACEABLE TO IDMS STANDARD Performed By: #### Jerry HSIEH TSHR ####[facility] ([id number])[address] [place] [address] 85[address]#### [id number] ####[facility] ([id number])[address], [place] [address] GFR/1.73 sq M.predicted among non-blacks MDRD (S/P/Bld) [Vol rate/Area] 61 mL/min/{1.73_m2} Normal >59 [facility] Comment on above: Result Comment: Reported eGFR is based on the CKD-EPI 2020 equation that does not use a race coefficient. Performed By: #### C МАРИЯ TSHR ####[facility] ([id number])[address] [place] [address]#### [id number] ####[facility] ([id number])[address], [address] [place] [address] Glucose [Mass/Vol] 177 mg/dL High 65-[address] [facility] Comment on above: Performed By: #### C МАРИЯ TSHR ####[facility] ([id number])[address] [place] [address]#### 51719-5 ####[facility] ([id number])[address], [address] [place] [address] Potassium [Moles/Vol] 4.5 mmol/L Normal 3.5-5.0 [facility] Comment on above: Performed By: #### Jerry HSIEH TSHR ####[facility] ([id number])[address] [place] [address]#### [id number] ####[facility] ([id number])[address], [address] [place] [address] Protein [Mass/Vol] 7.6 g/dL Normal 6.0-8.[address] [facility] Comment on above: Performed By: #### Jerry HSIEH TSHR ####[facility] ([id number])[address] [place] [address]#### [id number] ####[facility] ([id number])[address], [address] [address] Sodium [Moles/Vol] 135 mmol/L Normal 134-[address] [facility] Comment on above: Performed By: #### Jerry HSIEH TSHR ####[facility] ([id number])[address] [place] [address]#### [id number] ####[facility] ([id number])[address] [facility], [address], [place] [address] Urea nitrogen [Mass/Vol] 24 mg/dL Normal 5-27 [facility] Comment on above: Performed By: #### Jerry HSIEH TSHR ####[facility] ([id number])[address] [place] [address]#### [id number] ####[facility] ([id number])[address] [address] Lipid 1996 panelon 4 Cholesterol [Mass/Vol] 137 mg/dL Low 150-200 [facility] Comment on above: Performed By: #### Jerry HSIEH TSHR ####[facility] ([id number])[address] [place] [address]#### [id number] ####[facility] ([id number])[address] [address] Cholesterol in HDL [Mass/Vol] 32 mg/dL Low >39 [facility] Comment on above: Result Comment: HDL <40 mg/dL - High Risk HDL > or = 40mg/dL- Desirable HDL >60 mg/dL - Negative Risk Performed By: #### Jerry HSIEH TSHR ####[facility] ([id number])[address] [place] [address]#### [id number] ####[facility] ([id number])[address], [address] [place] [address] Cholesterol in LDL [Mass/Vol] 50 mg/dL Normal <130 [facility] Comment on above: Result Comment: LDL <100 mg/dL - Desirable LDL >160 mg/dL - High Risk Performed By: #### C МАРИЯ TSHR ####[facility] ([id number])[address] [place] [address]#### [id number] ####[facility] ([id number])[address] [address] [place] [address] Cholesterol in VLDL [Mass/Vol] 55 mg/dL High 0-30 [facility] Comment on above: Performed By: #### C МАРИЯ, TSHR ####[facility] ([id number])[address] [place] [address]#### [id number] ####[facility] ([id number])[address] [address] CHOLESTEROL:HDL 4.3 Normal 1.0-5.0 [facility] Comment on above: Performed By: #### Jerry HSIEH, TSHR ####[facility] ([id number])[address] [place] [address]#### [id number] ####[facility] ([id number])[address], [address] [place] [address] Triglyceride [Mass/Vol] 275 mg/dL High 27-150 [facility] Comment on above: Performed By: #### C МАРИЯ, TSHR ####[facility] ([id number])[address] [place] [address]#### [id number] ####[facility] ([id number])[address] [facility], [address], [place] [address] TSH WITH REFLEXon 05-09-2024 TSH 4.67 uIU/mL Normal 0.49-4.67 [facility] Comment on above: Performed By: #### C MP, TSHR ####[facility] ([id number])[address] [place] [address]#### [id number] ####[facility] ([id number])[address] [facility], [address], [place] [address] BASIC METABOLIC PANLon 04-16 Anion gap [Moles/Vol] 10 mmol/L Normal 5-15 [facility] Comment on above: Performed By: #### C BCA, PINR, 29460-3, BMP #### [facility] ([id number]) [address] [place] [address] 35871 Calcium [Mass/Vol] 9.3 mg/dL Normal 8.5-10.[address] [facility] Comment on above: Performed By: #### C BCA, PINR, 22901-2, BMP #### [facility] ([id number]) [address] [place] [address] 97605 Chloride [Moles/Vol] 101 mmol/L Normal 98-109 [facility] Comment on above: Performed By: #### C BCA, PINR, 44826-7, BMP #### [facility] ([id number]) [address] [place] [address] 89016 CO2 [Moles/Vol] 27 mmol/L Normal 22-32 [facility] Comment on above: Performed By: #### C BCA, PINR, 14505-4, BMP #### [facility] ([id number]) [address] [place] [address] 57544 Creatinine [Mass/Vol] 1.19 mg/dL Normal 0.70-1.20 [facility] Comment on above: Result Comment: METH OD TRACEABLE TO IDMS STANDARD Performed By: #### C GARDENIA PINR, 45866-9, BMP #### [facility] ([id number]) [address] [place] [address] 25880 GFR/1.73 sq M.predicted among non-blacks MDRD (S/P/Bld) [Vol rate/Area] 66 mL/min/{1.73_m2} Normal >59 [facility] Comment on above: Result Comment: Reported eGFR is based on the CKD-EPI 2020 equation that does not use a race coefficient. Performed By: #### C GARDENIA PINR, 37422-6, BMP #### [facility] ([id number]) [address] [place] [address] 31988 Glucose [Mass/Vol] 165 mg/dL High 65-[address] [facility] Comment on above: Performed By: #### C GARDENIA, PINR, 91621-2, BMP #### [facility] ([id number]) [address] [place] [address] 28738 Potassium [Moles/Vol] 4.2 mmol/L Normal 3.5-5.0 [facility] Comment on above: Performed By: #### C GARDENIA, PINR, 19093-9, BMP #### [facility] ([id number]) [address] [place] [address] 84899 Sodium [Moles/Vol] 138 mmol/L Normal 134-[address] [facility] Comment on above: Performed By: #### C BCA, PINR, 64352-2, BMP #### [facility] ([id number]) [address] [place] [address] 99165 Urea nitrogen [Mass/Vol] 17 mg/dL Normal 5-27 [facility] Comment on above: Performed By: #### C GARDENIA, PINR, 60626-6, BMP #### [facility] ([id number]) [address] [place] [address] 92737 CBC AND AUTO DIFFon 10-15-20 24 ABSOLUTE BASOPHIL 0.0 X10E9/L Normal 0.0-0.[address] [facility] Comment on above: Performed By: #### Jerry VARNER, PINR, 39003-9, BMP #### [facility] ([id number]) [address] [place] [address] 32134 ABSOLUTE NEUTROPHIL 4.0 X10E9/L Normal 1.5-6.6 [facility] Comment on above: Performed By: #### Jerry VARNER, PINR, 69499-5, BMP #### [facility] ([id number]) [address] [place] [address] 99610 Basophils/100 WBC (Bld) 0.5 % Normal [facility] Comment on above: Performed By: #### Jerry VARNER, PINR, 64303-5, BMP #### [facility] ([id number]) [address] [place] [address] 10797 Eosinophils (Bld) [#/Vol] 0.0 10*3/uL Normal 0.0-0.4 [facility] Comment on above: Performed By: #### Jerry VARNER PINR, 04628-4, BMP #### [facility] ([id number]) [address] [place] [address] 58082 Eosinophils/100 WBC (Bld) 0.4 % Normal [facility] Comment on above: Performed By: #### Jerry VARNER, PINR, 95724-6, BMP #### [facility] ([id number]) [address] [place] [address] 01337 Erythrocyte distribution width (RBC) [Ratio] 15.7 % High 11.5-15.0 [facility] Comment on above: Performed By: #### C SANDRA VARNER, 52418-4, BMP #### [facility] ([id number]) [address] [place] [address] 69276 Hematocrit (Bld) [Volume fraction] 39.9 % Normal 39-49 [facility] Comment on above: Performed By: #### SANDRA Edwards BCA, 43402-4, BMP #### [facility] ([id number]) [address] [place] [address] 83684 Hemoglobin (Bld) [Mass/Vol] 13.1 g/dL Normal 13.0-17.0 [facility] Comment on above: Performed By: #### SANDRA Edwards BCA, 92650-4, BMP #### [facility] ([id number]) [address] [place] [address] 15479 Lymphocytes (Bld) [#/Vol] 1.1 10*3/uL Normal 1.0-3.5 [facility] Comment on above: Performed By: #### SANDRA Edwards BCA, 54105-5, BMP #### [facility] ([id number]) [address] [place] [address] 99389 Lymphocytes/100 WBC (Bld) 18.2 % Normal [facility] Comment on above: Performed By: #### ELIAN Edwards BCAR, 24107-3, BMP #### [facility] ([id number]) [address] [place] [address] 53996 MCH (RBC) [Entitic mass] 30.6 pg Normal 27-34 [facility] Comment on above: Performed By: #### ELIAN Edwards BCAR, 19612-1, BMP #### [facility] ([id number]) [address] [place] [address] 14862 MCHC (RBC) [Mass/Vol] 32.8 g/dL Normal 32-36 [facility] Comment on above: Performed By: #### C GARDENIA, PINR, 59331-5, BMP #### [facility] ([id number]) [address] [place] [address] 84204 MCV (RBC) [Entitic vol] 93 fL Normal 80-100 [facility] Comment on above: Performed By: #### Jerry VARNER, PINR, 73769-4, BMP #### [facility] ([id number]) [address] [place] [address] 46094 Monocytes (Bld) [#/Vol] 0.8 10*3/uL Normal 0-0.9 [facility] Comment on above: Performed By: #### Jerry VARNER, PINR, 05699-0, BMP #### [facility] ([id number]) [address] [place] [address] 51007 Monocytes/100 WBC (Bld) 13.5 % Normal [facility] Comment on above: Performed By: #### Jerry VARNER, PINR, 99976-6, BMP #### [facility] ([id number]) [address] [place] [address] 00524 Neutrophils/100 WBC (Bld) 67.4 % Normal [facility] Comment on above: Performed By: #### Jerry VARNER, PINR, 73475-2, BMP #### [facility] ([id number]) [address] [place] [address] [place] [address] Platelet mean volume (Bld) [Entitic vol] 7.4 fL Normal 7-12 [facility] Comment on above: Performed By: #### Jerry VARNER, PINR, 35444-5, BMP #### [facility] ([id number]) [address] [place] [address] 10743 Platelets (Bld) [#/Vol] 284 10*3/uL Normal 150-450 [facility] Comment on above: Performed By: #### C BCA, PINR, 99688-9, BMP #### [facility] ([id number]) [address] [place] [address] RBC COUNT 4.27 X10E12/L Normal 4.10-5.70 [facility] Comment on above: Performed By: #### C BCA, PINR, 38551-1, BMP #### [facility] ([id number]) [address] [place] [address] WBC (Bld) [#/Vol] 5.9 10*3/uL Normal 4.0-11.[address] [facility] Comment on above: Performed By: #### C BCA, PINR, 62508-8, BMP #### [facility] ([id number]) [address] [place] [address] CT [address]RAIN WO CONT[address] CT BRAIN WO [...] Avila DO on 04/16/2024 2:16 PM Normal [facility] CT CERVICAL SPINE WO CONTon 04-16-2024 [...] Avila DO on 04/16/2024 2:24 PM Normal [facility] CT FACIAL BONES WO CONTon CT [...] Morris Lau on 04/16/2024 2:30 PM Normal [facility] PROTIME AND INRon 04-16-2024 INR Coag (PPP) [Relative time] 2.1 {INR} High 0.8-1.1 [facility] Comment on above: Performed By: #### C BCA, PINR, 02360-7, BMP #### [facility] ([id number]) [address] [place] [address] [place] [address] PT Coag (PPP) [Time] 23.7 s High 9.8-13.2 [facility] Comment on above: Result Comment: NEW REFERENCE RANGE Performed By: #### C BCA, PINR, 64110-9, BMP #### [facility] ([id number]) [address] [facility] [place] [address] aPTT Coag (PPP) [Time]on aPTT Coag (Bld) [Time] 48 s High 26-37 [facility] Comment on above: Result Comment: NEW REFERENCE RANGE Performed By: #### C BCA, PINR, 51676-6, BMP #### [facility] ([id number]) [address] [facility] [place] [address] MR LUMBAR SPINE WO CONTon MR LUMBAR [...] Stephens MD on 04/01/2024 10:47 PM Normal [facility] XR HIP LT 2-3 VIEWS W [...] Jaramillo MD on 12/26/2023 10:07 AM Normal [facility] XR SPINE LUMBAR 2 OR 3 [...] Stan Jaramillo MD on 12/26/2023 10:10 AM [facility] Vital Signs Date Time Vital Sign Value Performing Clinician Facility 10-10-2024 10:53-0400 Body height 175.3 cm Gretta Whitlock MD Work Phone: [facility] 10-10-2024 10:53-0400 Body mass index (BMI) [Ratio] 26.58 kg/m2 Gretta Whitlock MD Work Phone: [facility] 10-10-2024 10:53-0400 Body weight 81.65 kg Gretta Whitlock MD Work Phone: [facility] 10-10-2024 10:53-0400 Diastolic blood pressure 72 mm[Hg] Gretta Whitlock MD Work Phone: [facility] 10-10-2024 10:53-0400 Heart rate 59 /min Gretta Whitlock MD Work Phone: [facility] 10-10-2024 10:53-0400 SaO2% (BldA) [Mass fraction] 99 % Gretta Whitlock MD Work Phone: [facility] 10-10-2024 10:53-0400 Systolic blood pressure 126 mm[Hg] Gretta Whitlock MD Work Phone: [facility] 10-04-2024 11:29-0400 Body height 175.3 cm Edilson CAMACHOM Work Phone: [facility] 10-04-2024 11:29-0400 Body mass index (BMI) [Ratio] 26.58 kg/m2 Edilson CAMACHOM Work Phone: [facility] 10-04-2024 11:29-0400 Body temperature 97.7 [degF] Edilson Guzman DPM Work Phone: [facility] 10-04-2024 11:29-0400 Body weight 81.65 kg Edilson Guzman DPM Work Phone: [facility] 10-02-2024 13:11-0400 Body height 175.3 cm Bebeto LEON Work Phone: [facility] 10-02-2024 13:11-0400 Body mass index (BMI) [Ratio] 26.58 kg/m2 Bebeto LEON Work Phone: [facility] 10-02-2024 13:11-0400 Body weight 81.65 kg Bebeto LEON Work Phone: [facility] 09-26-2024 09:37-0400 Body height 175.3 cm Gretta Whitlock MD Work Phone: [facility] 09-26-2024 09:37-0400 Body mass index (BMI) [Ratio] 26.58 kg/m2 Gretta Whitlock MD Work Phone: [facility] 09-26-2024 09:37-0400 Body temperature 97.7 [degF] Gretta Whitlock MD Work Phone: [facility] 09-26-2024 09:37-0400 Body weight 81.65 kg Gretta Whitlock MD Work Phone: [facility] 09-26-2024 09:37-0400 Diastolic blood pressure 80 mm[Hg] Gretta Whitlock MD Work Phone: [facility] 09-26-2024 09:37-0400 Heart rate 60 /min Gretta Whitlock MD Work Phone: [facility] 09-26-2024 09:37-0400 SaO2% (BldA) [Mass fraction] 98 % Gretta Whitlock MD Work Phone: [facility] 09-26-2024 09:37-0400 Systolic blood pressure 130 mm[Hg] Gretta Whitlock MD Work Phone: [facility] 09-04-2024 12:58-0500 Body height 175.3 cm Vandana Brar APRN-CONTINUUM OF CARE MANAGER Work Phone: [facility] 09-04-2024 12:58-0500 Body mass index (BMI) [Ratio] 27.02 kg/m2 Vandana Brar APRN-CONTINUUM OF CARE MANAGER [facility] 09-04-2024 12:58-0500 Body weight 83.01 kg Vandana Brar DISTRICT ADMINISTRATIVE ASSISTANT-CONTINUUM OF CARE MANAGER Work Phone: [facility] [employer] [facility] 09-04-2024 12:58-0500 Diastolic blood pressure 72 mm[Hg] Vandana Brar APRN-CONTINUUM OF CARE MANAGER [facility] Phone: [facility] 09-04-2024 12:58-0500 Heart rate 54 /min Vandana Brar APRN-CONTINUUM OF CARE MANAGER Work Phone: [facility] [employer] 09-04-2024 12:58-0500 SaO2% (BldA) [Mass fraction] 97 % Vandana Brar APRN-CONTINUUM OF CARE MANAGER [facility]: [facility] 09-04-2024 12:58-0500 Systolic blood pressure 120 mm[Hg] Vandana Brar APRN-CONTINUUM OF CARE MANAGER [facility]: [facility] 05-23-2024 11:55-0500 Diastolic blood pressure 73 mm[Hg] Bebeto Romano PA [facility] 05-23-2024 11:55-0500 Heart rate 71 /min Bebeto Romano PA Work Phone: [place] [facility] 05-23-2024 11:55-0500 Respiratory rate 20 /min Bebeto Josephenberg PA [facility]: [facility] 05-23-2024 11:55-0500 SaO2% (BldA) [Mass fraction] 100 % Bebeto Romano PA Work Phone: [facility] [facility] 05-23-2024 11:55-0500 Systolic blood pressure 145 mm[Hg] Bebeto Romano PA Work Phone: [facility] 04-09-2024 10:12-0400 Body height 175.3 cm Bebeto Nienberg PA Work Phone: [facility] Comment on above: stated 04-09-2024 10:12-0400 Body mass index (BMI) [Ratio] 27.62 kg/m2 Bebeto Nienberg PA Work Phone: [facility] [facility] 04-09-2024 10:12-0400 Body weight 84.82 kg Bebeto Nienberg PA Work Phone: [facility] 04-09-2024 10:12-0400 Diastolic blood pressure 97 mm[Hg] Bebeto Nienberg PA Work Phone: [facility] 04-09-2024 10:12-0400 Heart rate 63 /min Bebeto Nienberg PA Work Phone: [facility] [facility] 04-09-2024 10:12-0400 Respiratory rate 16 /min Bebeto Nienberg PA Work Phone: [facility] 04-09-2024 10:12-0400 SaO2% (BldA) [Mass fraction] 100 % Bebeto Nienberg PA Work Phone: [facility] 04-09-2024 10:12-0400 Systolic blood pressure 141 mm[Hg] Bebeto Nienberg PA [facility] 02-22-2024 13:29-0400 Body height 175.3 cm Bebeto Nienberg PA Work Phone: [facility] 02-22-2024 13:29-0400 Body mass index (BMI) [Ratio] 26.73 kg/m2 Bebeto Nienberg PA [facility] 02-22-2024 13:29-0400 Body weight 82.1 kg Bebeto Nienberg PA Work Phone: [facility] 02-22-2024 13:29-0400 Diastolic blood pressure 79 mm[Hg] Bebeto Nienberg PA Work Phone: [facility] 02-22-2024 13:29-0400 Heart rate 65 /min Bebeto Nienberg PA Work Phone: [facility] [employer] 02-22-2024 13:29-0400 SaO2% (BldA) [Mass fraction] 99 % Bebeto Nienberg PA Work Phone: [facility] [employer] 02-22-2024 13:29-0400 Systolic blood pressure 115 mm[Hg] Bebeto Nienberg PA Work Phone: [facility] 01-09-2024 12:23-0400 Body height 175.3 cm Bebeto Nienberg PA Work Phone: [facility] [employer] 01-09-2024 12:23-0400 Body mass index (BMI) [Ratio] 27.02 kg/m2 Bebeto Nienberg PA Work Phone: [facility] [employer] 01-09-2024 12:23-0400 Body weight 83.01 kg Bebeto Nienberg PA Work Phone: [facility] 01-09-2024 12:23-0400 Diastolic blood pressure 84 mm[Hg] Bebeto Nienberg PA Work Phone: [facility] 01-09-2024 12:23-0400 Heart rate 65 /min Bebeto Nienberg PA Work Phone: [facility] 01-09-2024 12:23-0400 Respiratory rate 16 /min Bebeto Nienberg PA Work Phone: [facility] [facility] 01-09-2024 12:23-0400 SaO2% (BldA) [Mass fraction] 98 % Bebeto Nienberg PA [facility] 01-09-2024 12:23-0400 Systolic blood pressure 142 mm[Hg] Bebeto Nienberg PA Work Phone: [facility] Encounters Encounter Date Encounter Type Care Provider Facility Start: 11-04-2024 End: 11-04-2024 ambulatory VANDANA Ritesh BRAR [facility] Start: 11-04-2024 ambulatory VANDANA BRAR [facility] Start: 11-04-2024 Encounter for other preprocedural examination VANDANA BRAR [facility] Start: 10-15-2024 End: 10-21-2024 Telephone encounter Phylicia Torres LPN [facility] Comment on above: Surgical Or Dental C learance Start: 10-10-2024 End: 10-10-2024 Office outpatient visit 15 minutes Gretta Whitlock MD Work Phone: [facility] Comment on above: 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 ([facility]-HCC) (Primary Dx) Start: 10-10-2024 End: 10-10-2024 ambulatory [facility] Remigio WHITLOCK [facility] Start: 10-04-2024 End: 10-04-2024 Bamboo flowsheet Edilson Guzman DPM Work Phone: [facility] Start: 10-04-2024 End: 10-04-2024 Bamboo flowsheet Edilson Guzman DPM Work Phone: [facility] Start: 10-04-2024 End: 10-04-2024 Office outpatient new 45 minutes Edilson Guzman DPM Work Phone: [facility] Comment on above: Paronychia of great toe of right foot (Primary Dx); Angiopathy, diabetic ([facility]/HCC); Diabetic polyneuropathy associated with type 2 diabetes mellitus ([facility]/HCC); Status post partial amputation of left foot ([facility]/HCC) Start: 10-04-2024 End: 10-04-2024 ambulatory EDILSON GUZMAN Not Available Start: 10-02-2024 End: 10-02-2024 Bamboo flowsheet Bebeto LEON Work Phone: [facility] Start: 10-02-2024 End: 10-02-2024 Bamboo flowsheet Bebeto LEON Work Phone: [facility] Start: 10-02-2024 End: 10-02-2024 ambulatory BEBETO SIMON Not Available Start: 10-02-2024 End: 10-02-2024 Office outpatient new 45 minutes Bebeto LEON Work Phone: [facility] Comment on above: Acute pain of right knee (Primary Dx); Arthritis of right knee; Effusion of right knee Start: 09-27-2024 End: 09-27-2024 ambulatory [facility] Start: 09-26-2024 End: 09-26-2024 Office outpatient new 45 minutes Gretta Whitlock MD Work Phone: [facility] Comment on above: 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 ([facility]-HCC) (Primary Dx); PVD (peripheral vascular disease) ([facility]-HCC) Start: 09-26-2024 End: 09-26-2024 ambulatory [facility] Start: 09-23-2024 End: 09-23-2024 ambulatory VANDANA BRAR [facility] Start: 09-13-2024 End: 09-13-2024 Emergency department patient visit [facility] Start: 09-04-2024 End: 09-04-2024 Office outpatient visit 15 minutes Vandana Brar DISTRICT ADMINISTRATIVE ASSISTANT-CONTINUUM OF CARE MANAGER Work Phone: [facility] Comment on above: Ventricular tachycar gaye ([facility]-H[facility]) (Primary Dx); AICD present, double chamber; Encounter for monitoring amiodarone therapy; Paroxysmal atrial fibrillation ([facility]); Typical atrial flutter ([facility]); V-tach ([facility]); Essential hypertension Start: 09-04-2024 End: 09-04-2024 Clinical Support [facility] Comment on above: AICD present, double chamber- [employer] (Primary Dx) Start: 09-03-2024 End: 09-03-2024 Telephone encounter Maris[facility] Mcguire [facility] Start: 07-22-2024 End: 07-22-2024 [facility]ulatory [facility] Start: 07-12-2024 End: 07-22-2024 Refill Liliana Rivera DISTRICT ADMINISTRATIVE ASSISTANT-CONTINUUM OF CARE MANAGER Work Phone: [facility] Comment on above: Med Change Request Start: 05-23-2024 End: 05-23-2024 Refill Bebeto Espino DISTRICT ADMINISTRATIVE ASSISTANT-CONTINUUM OF CARE MANAGER Work Phone: [facility] Comment on above: Med Refill Start: 05-23-2024 End: 05-23-2024 Office outpatient visit 15 minutes Bebeto LEON Work Phone: [facility] Comment on above: Lumbosacral 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 (Primary Dx) Start: 05-23-2024 End: 05-23-2024 [facility] Start: 05-09-2024 End: 05-09-2024 [facility] Start: 05-03-2024 End: 05-03-2024 ambulatory ALBER Valera [facility] Start: 04-16-2024 End: 04-16-2024 Emergency department patient visit [facility] Start: 04-09-2024 End: 04-09-2024 Office outpatient visit 25 minutes Bebeto LEON Work Phone: [facility] Comment on above: Lumbosacral 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 (Primary Dx) Start: 04-09-2024 End: 04-09-2024 ambulatory [facility] Start: 04-01-2024 End: 04-01-2024 ambulatory [facility] Start: 02-22-2024 End: 02-22-2024 Office outpatient visit 25 minutes Bebeto LEON Work Phone: [facility] Comment on above: Lumbosacral 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 (Primary Dx); Disc displacement, lumbar; Lumbar radiculopathy, chronic Start: 02-22-2024 End: 02-22-2024 ambulatory BEBETO ROMANO [facility] Start: 02-21-2024 End: 02-21-2024 Refill Marsha Inge DISTRICT ADMINISTRATIVE ASSISTANT-CONTINUUM OF CARE MANAGER Work Phone: [facility] Comment on above: Med Refill Start: 01-17-2024 End: 01-17-2024 Telephone encounter Di London CNA [facility] Start: 01-11-2024 End: 01-11-2024 Telephone encounter Mariana Reyez RN [facility] Start: 01-09-2024 End: 01-09-2024 Office outpatient new 30 minutes Bebeto Romano PA Work Phone: [facility] Comment on above: Lumbar spondylolysis (Primary Dx) Start: 01-09-2024 End: 01-09-2024 ambulatory [facility] Start: 12-26-2023 End: 12-27-2023 Emergency department patient visit DIVYA Valera CHEMARIA E [facility] Start: 11-14-2022 End: 11-15-2022 ambulatory [facility] Facility:H1 Start: 10-24-2022 End: 10-25-2022 ambulatory [facility] Facility:[facility] Start: 10-03-2022 End: 10-04-2022 ambulatory [facility] Facility:H1 Start: 09-12-2022 End: 09-13-2022 ambulatory CHET FOURNIER Facility:H1 Start: 08-23-2022 End: 08-24-2022 ambulatory [facility] Facility:H1 Start: 08-16-2022 End: 08-17-2022 ambulatory [facility] Facility:H1 Start: 08-09-2022 End: 08-10-2022 ambulatory [facility] Facility:H1 Procedures Date Procedure Procedure Detail Performing Clinician Start: 10-02-2024 Arthrocentesis aspir &/inj major jt/bursa w/o us Bebeto LEON Work Phone: Start: 09-04-2024 Ecg routine ecg w/le ast 12 lds w/i&r Vandana Brar DISTRICT ADMINISTRATIVE ASSISTANT-CONTINUUM OF CARE MANAGER Work Phone: Start: 09-04-2024 Follow-up visit Follow-up VANDANA BRAR Start: 04-06-2023 Microalbumin [Mass/v olume] in Urine by Test strip Bebeto LEON Work Phone: Plan of Treatment Date Care Activity Detail Author Start: 10-10-2025 Adult BMI Screening Adult BMI Screen ing [facility] Start: 10-10-2025 Tobacco Screening Tobacco Screening [facility] Start: 09-27-2025 Adult BMI Screening Adult BMI Screen ing [facility] Start: 09-27-2025 Tobacco Screening Tobacco Screening [facility] Start: 09-13-2025 Adult BMI Screening Adult BMI Screen ing [facility] Start: 09-13-2025 Tobacco Screening Tobacco Screening [facility] Start: 09-04-2025 Adult BMI Screening Adult BMI Screen ing [facility] Start: 09-04-2025 Tobacco Screening Tobacco Screening [facility] Start: 05-23-2025 Tobacco Screening Tobacco Screening [facility] Start: 04-16-2025 Adult BMI Screening Adult BMI Screen ing [facility] Start: 04-09-2025 Adult BMI Screening Adult BMI Screen ing [facility] Start: 04-09-2025 Tobacco Screening Tobacco Screening [facility] Start: 03-03-2025 Influenza vaccination N [facility] Start: 02-21-2025 Adult BMI Screening Adult BMI Screen ing [facility] Start: 02-21-2025 Tobacco Screening Tobacco Screening [facility] Start: 01-09-2025 End: 01-09-2025 Patient encounter procedure 01/09/2025 1:30 PM EDT Procedure [facility] [address] [place] [address] Edilson Guzman DPM [address] [place] [address] [facility] Start: 01-08-2025 Adult BMI Screening Adult BMI Screen ing [facility] Start: 01-08-2025 Tobacco Screening Tobacco Screening [facility] Start: 11-04-2024 End: 11-04-2024 Patient encounter procedure [facility] - Stress Imaging Start: 10-04-2024 End: 10-04-2024 Patient encounter procedure [facility] Comment on above: Arrived Start: 09-26-2024 End: 09-26-2024 Patient encounter procedure 09/26/2024 9:40 AM EDT Office Visit [facility] Vascular Surgery [address] [place] [phone] Gretta Whitlock MD [address] [place] [address] [facility] Surgery Start: 09-16-2024 End: 09-16-2024 Patient encounter procedure 09/16/2024 11:00 AM EDT Appointment [facility] - Pulmonary Function [address] [place] [address] Vandana Brar, DISTRICT ADMINISTRATIVE ASSISTANT-CONTINUUM OF CARE MANAGER [address] [place] [address] [facility] - Pulmonary Function Start: 09-04-2024 End: 09-04-2024 Patient encounter procedure 09/04/2024 2:30 PM EST Office Visit [facility] [address] [place] [phone] Vandana Brar, DISTRICT ADMINISTRATIVE ASSISTANT-CONTINUUM OF CARE MANAGER [address] [place] [address] [facility] Start: 09-04-2024 End: 09-04-2024 Clinical Support 09/04/2024 1:15 PM EST Clinical Support [facility] [address] [place] [address] [facility] Start: 07-24-2024 End: 07-24-2024 Clinical Support [facility] Start: 07-04-2024 End: 07-04-2024 Patient encounter procedure 07/04/2024 10:00 AM EST Office Visit [facility] [address] [place] [address] Bebeto Romano PA [address] [place] [address] [facility] Start: 05-23-2024 End: 05-23-2024 Patient encounter procedure 05/23/2024 12:45 PM EST Office Visit [facility] [address] [place] [phone] Bebeto Romano PA [address], [address] [place] [address] [facility] Start: 05-03-2024 End: 05-03-2024 Admission to same day surgery center 05/03/2024 8:58 AM EDT - 05/03/2024 9:06 AM EDT Surgery [facility] - Pain Procedures [address] [place] [address] Alber Hyde MD [address] [place], [place] [phone] INJECTION BLOCK NERVE MEDIAL BRANCH: bilat L45 51 [55301 (CPT )] [facility] - Pain Procedures Comment on above: INJECTION BLOCK NERV E MEDIAL BRANCH: bilat L45 51 [04141 (CPT )] Start: 05-03-2024 End: 05-03-2024 Njx dx/ther agt pvrt facet jt lmbr/sac 1 level INJECTION BLOCK NERVE MEDIAL BRANCH Lumbosacral spondylosis without myelopathy 05/03/2024 8:58 AM EDT [facility] Start: 05-03-2024 Subsequent hospital visit by physician 05/03/2024 8:58 AM EDT Hospital Encounter [facility] - Pain Procedures [address] [place] [address] Alber Hyde MD [address] [place] [address] [facility] - Pain Procedures Start: 04-06-2024 Urine screening for protein Urine Microalbumin [facility] Start: 04-04-2024 End: 04-04-2024 Patient encounter procedure 04/04/2024 1:15 PM EDT Appointment [facility] - MRI Imaging [address] [place] [phone] Bebeot Romano PA [address] [place], [place] [phone] [facility] - MRI Imaging Start: 03-03-2024 COVID-19 Vaccine ( season) COVID-19 Vaccine ( season) [facility] Start: 03-03-2024 COVID-19 Vaccine ( season) COVID-19 Vaccine ( season) [facility] Start: 03-03-2024 Influenza vaccination Influenza Vacc ine [facility] Start: 02-22-2024 End: 02-22-2024 Patient encounter procedure 02/22/2024 2:45 PM EDT Office Visit [facility] Management Clinic [address] [place] [phone] Bebeto Romano PA [address] [place], [place] [phone] [facility] Start: 04-25-2023 Pneumococcal Vaccine : 65+ Years (2 of 2 - PCV) Pneumococcal Vaccine: 65+ Years (2 of 2 - PCV) [facility] Start: 03-03-2023 COVID-19 Vaccine ( season) COVID-19 [facility]ine ( [facility] Start: 2019 Abdominal aortic aneurysm screening Abdominal Aortic Aneurysm (AAA) Screen [facility] Start: 2019 Fall Risk Screening Fall Risk Screen ing [facility] Start: 2004 Administration of varicella zoster vaccine Zoster (Shingles) Vaccine (1 of 2) [facility] Start: 1973 DTaP,Tdap and Td Vaccines (1 - Tdap) DTaP,Tdap and Td Vaccines (1 - Tdap) [facility] Start: 1972 Adult BMI Follow Up Plan Adult BMI F ollow Up Plan [facility] Start: 1972 Diabetic foot examination Diabetic Foot Exam [facility] Start: 1966 Depression Screening Depression Scre ening [facility] Start: 1954 Glaucoma screening Diabetic Op hthalmology Exam [facility] Start: 1954 Medicare Annual Well ness Visit Medicare Annual Wellness Visit [place] [employer] Start: 1954 Screening for malign ant neoplasm of colon [facility] End: 02-21-2025 MR Lumbar spine WO contrast MR lumbar spine without contrast Imaging Routine Lumbar radiculopathy, chronic 1 Occurrences starting 02/22/2024 until 02/21/2025 [employer] Work Phone: Comment on above: 1 Occurrences [...] therapy 1 Occurrences starting 09/04/2024 until 09/04/2025 [employer] Work Phone: Comment on above: 1 Occurrences starti ng 09/04/2024 until 09/04/2025 Immunizations Immunization Date Immunization Notes Care Provider Miles velasquez 04-11-2023 influenza virus vaccine, unspecified formulation Bebeto LEON Work Phone: [facility] 04-19-2021 influenza, injectabl e, quadrivalent, preservative free Bebeto LEON Work Phone: [facility] 05-18-2018 Influenza, injectabl e, Madin Jones Canine Kidney, preservative free, quadrivalent Bebeto LEON Work Phone: [facility] 05-10-2017 influenza, seasonal, injectable, preservative free Bebeto LEON Work Phone: [facility] 03-25-2015 influenza, seasonal, injectable, preservative free Bebeto LEON Work Phone: [facility] 04-15-2014 influenza, seasonal, injectable Bebeto LEON Work Phone: [facility] Payers Date Payer Category Payer Medicaid [id number] 1992 Medicare [id number] 1959 Medicaid [id number] 1959 Medicare [id number] 1954 Unknown [id number] 2.16.84 0.1.553395.3.579.2.593 1954 Unknown [id number] 2.16.84 0.1.061492.3.579.2.593 1954 Unknown [id number] 2.16.84 0.1.537155.3.579.2.593 1954 Unknown [id number] 2.16.84 0.1.219262.3.579.2.593 1954 Unknown [id number] 2.16.84 0.1.058410.3.579.2.593 1954 Unknown [id number] 2.16.84 0.1.248783.3.579.2.593 1954 Unknown [id number] 2.16.84 0.1.388808.3.579.2.593 1954 Unknown [id number] 2.16. 840.1.853455.3.579.2.1286 1954 Unknown [id number] 2.16.84 0.1.011084.3.579.2.1259 1954 Unknown [id number] 2.16.84 0.1.933194.3.579.2.1259 1954 Unknown [id number] 2.16. 840.1.437943.3.579.2.1286 1954 Unknown [id number] 2. 840.1.290432.3.579.2.1286 1954 Unknown [id number] 2. 840.1.869376.3.579.2.1286 1954 Unknown [id number] 2.16. 840.1.836495.3.579.2.1286 1954 Unknown [id number] 2.16. 840.1.950202.3.579.2.1286 1954 Unknown [id number] 2.16 840.1.690700.3.579.2.1286 1954 Unknown [id number] 2.16 840.1.552924.3.579.2.1286 1954 Unknown [id number] 2.16. 840.1.900807.3.579.2.1286 1954 Unknown [id number] 2.16. 840.1.973557.3.579.2.1286 1954 Unknown [id number] 2.16 840.1.670688.3.579.2.1286 1954 Unknown [id number] 2.16. 840.1.902264.3.579.2.1286 1954 Unknown [id number] 2.16.8 40.1.328923.3.579.2.1285 1954 Unknown [id number] 2.16.8 40.1.262497.3.579.2.128 1954 Unknown [id number] 2.16.8 40.1.231714.3.579.2.1285 1954 Unknown [id number] 2.16.8 40.1.915483.3.579.2.[facility] Unknown [id number] 2.16.8 40.1.809344.3.579.2.1285 1954 Unknown [id number] 2.16.8 40.1.387014.3.579.2.1285 1954 Unknown [id number] 2.16.8 40.1.356020.3.579.2.1285 1954 Unknown [id number] 2.16.8 40.1.043974.3.579.2.1285 1954 Unknown [id number] 2.16.8 40.1.646138.3.579.2.1285 1954 Unknown [id number] 2.16.8 40.1.125794.3.579.2.1285 1954 Unknown [id number] 2.16.8 40.1.994906.3.579.2.1285 1954 Unknown [id number] 2.16.8 40.1.978338.3.579.2.1286 Social History Date Type Detail Facility Start: 01-09-2024 End: 10-04-2024 Tobacco smoking status MOIS Ex-smoker [facility] History of tobacco use Current smoker [facility] History of tobacco use Cigarette Smoker [facility] Start: 01-09-2024 End: 10-04-2024 Tobacco use and exposure Smokeless tobacco non-user [facility] Start: 05-23-2024 End: 10-10-2024 Alcoholic beverage intake Current non-drinker of alcohol (finding) [facility] Start: 07-18-2020 End: 05-23-2024 History of Social function [facility] Start: 07-18-2020 End: 05-23-2024 Tobacco use panel [facility] Childcare Unknown [facility] Start: 1955 Sex assigned at Not on file [facility] Start: 02-05-2015 Sex Male (finding) [facility] Tobacco smoking stat [facility] Tobacco smoking consumption unknown [facility] Start: 10-02-2024 End: 10-04-2024 Alcoholic beverage intake Ex-drinker (finding) [facility] Medical Equipment Procedure Code Equipment Code Equipment Origin al Text Equipment Identifier Dates Ld Pcng 55cm Rv Sq Scr S Df-4 - [id number] - [id number] Start: 11-20-2018 Lead Capsure Fix Nov[employer] 5076-45 - [id number] - [id number] Start: 11-20-2018 Lead Capsure Fix [employer] 5076-52 - [id number] - [id number] Start: 07-21-2020 Dfbr Crd Evera M ri Xt Dr - [id number] - [id number] Start: 11-20-2018 Sys Crd Rvl Linq Rpl [id number] - [id number] - [id number] Start: 11-16-2018 Start: 01-20-2018 Goals Date Patient Goal Desired Activity /State Personal health goal Comment on above: Formatting of this n ote might be different from the original. Evaluation of progress towards goal: discharge home with sabianist/friends support. Personal health goal Comment on above: Formatting of this n ote might be different from the original. Evaluation of progress towards goal: plan home self care Personal health goal Comment on above: Formatting of this n ote might be different from the original. Evaluation of progress towards goal: Patient likely will discharge to a SNF Clinical Notes 08-09-2022 to 10-15-2024 Telephone Encounter - Phylicia Torres LPN - 10/15/2024 11:55 AM EDTTelephone Encounter - JOSE MIGUEL Ribeiro - 10/15/2024 11:55 AM Angela Whitlock MD - 10/10/2024 11:00 AM EDT Note Date & Type Note Facility 10-15-2024 Miscellaneous Notes Surgeon: Dr Gutiérrez Type of surgery: lt transmetatarsal amputation with delayed primary closure of ulceration Date of surgery: pending Surgery location: [facility] Type of anesthesia: general On a blood thinner?: xarelto Indication? At Fib On an antiplatelet?: asa Stent? no Date of last EK09/04/24 Last office visit date and who they saw: AM 09/04/24 Their preference of how long to hold blood thinners/antiplatelet: per cardiology recommendations History of CVA/TIA, DVT/PE? no Can not complete at least 4 Mets of activity 2/2 mobility issues. Will need nuclear stress for cardiac clearance. If nuclear stress normal, can hold aspirin 3-5 days preop and Xarelto 48 hours preop with resumption of both medications as soon as possible postoperative once deemed safe by surgeon. Thank you Pt scheduled for lexiscan at [facility] 11/04/24 [facility] Telephone encounter Note Surgeon: Dr Gutiérrez Type of surgery: lt transmetatarsal amputation with delayed primary closure of ulceration Date of surgery: pending Surgery location: [facility] Type of anesthesia: general On a blood thinner?: xarelto Indication? At Fib On an antiplatelet?: asa Stent? no Date of last EK09/04/24 Last office visit date and who they saw: AM 09/04/24 Their preference of how long to hold blood thinners/antiplatelet: per cardiology recommendations History of CVA/TIA, DVT/PE? no [facility] 10-15-2024 Telephone encounter Note Can not complete at least 4 Mets of activity 2/2 mobility issues. Will need nuclear stress for cardiac clearance. If nuclear stress normal, can hold aspirin 3-5 days preop and Xarelto 48 hours preop with resumption of both medications as soon as possible postoperative once deemed safe by surgeon. Thank you [facility] 10-15-2024 Telephone encounter Note Pt scheduled for lexiscan at PM 11/04/24 [facility] 10-10-2024 Evaluation + Plan note Associated Problem(s): Critical limb ischemia of left lower extremity with gangrene ([facility]) PVR. Continue best medical therapy with aspirin and statin. [facility] 10-10-2024 Miscellaneous Notes Associated Problem(s): Critical limb ischemia of left lower extremity with gangrene ([facility]-H[facility]) PVR. Continue best medical therapy with aspirin and statin. documented in this encounter [facility] 10-10-2024 History of Present illness Narrative Images from the original note were not included. To: [facility] HPI: Radha Frausto is a 69 y.o. male with [...] Diagnosis Date Angina pectoris Arrhythmia Atrial fibrillation (CMS-HCC) Atrial flutter ([facility]-HCC) Atrial flutter ([facility]-HCC) Benign prostatic hyperplasia BPH with urinary obstruction Cancer ([facility]) skin cancer Cataract Constipation Coronary artery disease Dental disease no teeth Diabetes mellitus ([facility]) Diabetes mellitus type 2, controlled ([facility]) Hypercholesterolemia Hypertension Myositis Peripheral neuropathy Rash Scalp wound Urinary incontinence Ventricular tachycardia (CMS-HCC) Visual impairment glasses Past Surgical History: Past Surgical History: Procedure Laterality Date 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; excision and debridement Left 10/29/2021 Performed by Ambrosio Al MD at [facility] AMPUTATION TOE 4TH & 5TH/WIDE INCISIONAL DEBRIDEMENT LEFT DIABETIC FOOT NECROTIZING FASCITIS Left 08/12/2021 Performed by Ambrosio Al MD at [facility] ANGIO LOWER EXT Left 09/27/2024 Performed by Gretta Whitlock MD at [facility] CARDIAC DEFIBRILLATOR PLACEMENT [employer] CATARACT EXTRACTION Coronary angiogram and left ventricular gram/pressure N/A 11/19/2018 Performed by Sage Jay MD at [facility] Coronary fractional flow reserve N/A 11/19/2018 Performed by Sage Jay MD at [facility] CYSTOSCOPY [facility] SOLUTION N/A 10/27/2021 Performed by Frederic Thorne MD at [place] [facility] DC ICD RA lead replace - MDT N/A 07/21/2020 Performed by Yoni Espinoza MD at [facility] (EP) EP - Device DC ICD Left 11/20/2018 Performed by Shayna Betancourt MD at [facility] (EP) EP - Diagnostic-- EP study Right 11/16/2018 Performed by Rafita Garcia MD at [facility] (EP) INJECTION BLOCK NERVE MEDIAL BRANCH: bilat L 4/5, 10/31 Bilateral 05/03/2024 Performed by Alber Hyde MD at [place] [facility] Loop recorder implant N/A 11/16/2018 Performed by Rafita Garcia MD at [facility] (EP) Loop recorder removal N/A 07/21/2020 Performed by Yoni Espinoza MD at [facility] (EP) Percutaneous angioplasty tibia/per initial vessel left Left 09/27/2024 Performed by Gretta Whitlock MD at [facility] Percutaneous angioplasty tibia/per initial vessel/EACH ADDITIONAL Right 09/27/2024 Performed by Gretta Whitlock MD at [facility] SKIN CANCER EXCISION [...] Interpersonal Safety: Unknown (08/24/2023) Received from [facility] Fear of Current [...] ischemia of left lower extremity with gangrene ([facility]) - Primary Current Assessment & Plan PVR. Continue best medical therapy with aspirin and statin. Radha was seen today for angio 09-27-24. Diagnoses and all orders for this visit: Critical limb ischemia of left lower extremity with gangrene (CMS-HCC) Gretta Whitlock MD, RONNIE, RPVI, FSVS, FACS [facility] This note was created with the assistance of a speech recognition program. While intending to generate a timely document that accurately reflects the content of the visit, no guarantee can be provided that every grammatical or spelling mistake has been or will be identified or corrected. Thank you for your understanding. documented in this encounter [facility] 10-04-2024 History of Present illness Narrative Images from the original note were not included. Subjective Patient ID: Radha Frausto is a 69 y.o. male who presents for Toe Pain (Radha Frausto 69yo New Patient last seen 07/12/2021. Patient is diabetic. Concerns of Right great toenail infection, patient relates drainage, thick and painful. Patient is seeing wound care in [place] for possible partial amputation of left foot, due to non-healing after amputation surgery 3 years ago, in [place]. Currently taking cephalexin for left foot infection. Left leg blood clot as of last week, patient is on aspirin and Xarelto. BS [address] Bejarano 09/30/2024 SS 10). HPI Patient last in [...] Edilson Guzman DPM documented in this encounter [facility] 10-04-2024 Instructions Edilson Guzman DPM - 10/04/2024 11:30 AM EDT As noted documented in this encounter [facility] 10-02-2024 History of Present illness Narrative Associated Order(s): L Inj/Asp: R knee Post-Procedure Diagnose(s): Arthritis of right knee; Effusion of right knee Images from the original note were not included. NAME: Radha Frausto : 1955 HISTORY OF PRESENT ILLNESS: NEW PT Radha Frausto is an 69 y.o. @ male. (NEW PT) [facility] REFERRAL. RT KNEE PAIN 09/11/24 (3 WKS), WENT TO [facility] ER 09/13, HAD XR AND GIVEN KNEE IMMOBILIZER. XRAY [facility] 09/13/24 WORE KNEE IMMOBILIZER FOR A COUPLE DAYS. PRESENTS IN WC TODAY. USES WALKER AT HOME. USED WC FOR DISTANCE. PAIN DIFFUSE IN KNEE. DENIES RADIATION. INTERMITTENT PAIN. +TYL. USED ICE ONCE. DENIES N/T. +SWELLING. KNEE POPPED ONCE GOING UP THE STEPS. +GIVING OUT SENSATION. DOES NOT WAKE AT HS. *ON XARELTO PAST MEDICAL HISTORY: Past Medical History: Diagnosis Date Diabetes ([facility]/HCC) H/O blood clots PAST SURGICAL HISTORY: Past [...] and flexion. The x-ray from 09/13/2024 at [facility] shows tricompartmental arthritic changes. Treatment plan: A cortisone injection was discussed and administered today. Clinical decision making: Further treatment will be held until he is released from his left foot surgery. Right knee arthritis. The patient has been complaining of knee aching and pain consistent with arthritis. The x-ray from 09/13/2024 at [facility] shows tricompartmental arthritic changes. He has pain [...] Treatment plan: He follows with a local engineering faculty member and is recommended to have a prompt appointment for evaluation of his right great toe, likely needing nail trimming and potential antibiotics given his history of chronic wounds. Follow-up: Prompt appointment with local engineering faculty member for evaluation of right great toe. PROCEDURE [...] requiring urgent evaluation. documented in this encounter [facility] 09-26-2024 Evaluation + Plan note Associated Problem(s): Critical limb ischemia of left lower extremity with gangrene ([facility]) Left lower extremity angiogram and intervention [facility] 09-26-2024 Miscellaneous Notes Associated Problem(s): Critical limb ischemia of left lower extremity with gangrene ([facility]) Left lower extremity angiogram and intervention documented in this encounter [facility] 09-26-2024 History of Present illness Narrative Images from the original note were not included. To: [facility] HPI: Radha Frausto is a 69 y.o. male with [...] Past Medical History: Diagnosis Date Angina pectoris ([facility]) Arrhythmia Atrial fibrillation (CMS-HCC) Atrial flutter ([facility]) Atrial flutter ([facility]) Benign prostatic hyperplasia BPH with urinary obstruction Cancer ([facility]) skin cancer Cataract Constipation Coronary artery disease Dental disease no teeth Diabetes mellitus ([facility]) Diabetes mellitus type 2, controlled ([facility]) Hypercholesterolemia Hypertension Myositis Peripheral neuropathy Rash Scalp wound Urinary incontinence Ventricular tachycardia ([facility]) Visual impairment glasses Past Surgical History: Past Surgical History: Procedure Laterality Date 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; excision and debridement Left 10/29/2021 Performed by Ambrosio Al MD at [facility] AMPUTATION TOE 4TH & 5TH/WIDE INCISIONAL DEBRIDEMENT LEFT DIABETIC FOOT NECROTIZING FASCITIS Left 08/12/2021 Performed by Ambrosio Al MD at [facility] CARDIAC DEFIBRILLATOR PLACEMENT [employer] CATARACT EXTRACTION Coronary angiogram and left ventricular gram/pressure N/A 11/19/2018 Performed by Sage Jay MD at [facility] Coronary fractional flow reserve N/A 11/19/2018 Performed by Sage Jay MD at [facility] CYSTOSCOPY [facility] SOLUTION N/A 10/27/2021 Performed by Frederic Thorne MD at [facility] DC ICD RA lead replace - MDT N/A 07/21/2020 Performed by Yoni Espinoza MD at [facility] (EP) EP - Device DC ICD Left 11/20/2018 Performed by Shayna Betancourt MD at [facility] (EP) EP - Diagnostic-- EP study Right 11/16/2018 Performed by Rafita Garcia MD at [facility] (EP) INJECTION BLOCK NERVE MEDIAL BRANCH: bilat L 4/5, 10/31 Bilateral 05/03/2024 Performed by Alber Hyde MD at [facility] Loop recorder implant N/A 11/16/2018 Performed by Rafita Garcia MD at [facility] (EP) Loop recorder removal N/A 07/21/2020 Performed by Yoni Espinoza MD at [facility] (EP) SKIN CANCER EXCISION Social and Family [...] Interpersonal Safety: Unknown (08/24/2023) Received from [facility] Environment Fear of Current [...] ischemia of left lower extremity with gangrene ([facility]) - Primary Current Assessment & Plan Left lower extremity angiogram and intervention Radha was seen today for new patient referral for bilateral lower extremities blood . Diagnoses and all orders for this visit: Critical limb ischemia of left lower extremity with gangrene ([facility]) PVD (peripheral vascular disease) ([facility]) - [facility] - [place], [place] Gretta Whitlock MD, RONNIE, RPVI, FSVS, FACS [facility] This note was created with the assistance of a speech recognition program. While intending to generate a timely document that accurately reflects the content of the visit, no guarantee can be provided that every grammatical or spelling mistake has been or will be identified or corrected. Thank you for your understanding. documented in this encounter [facility] 09-04-2024 History of Present illness Narrative Radha Frautso Date of visit: 09/04/2024 Date of : 1955 Age: 69 y.o. 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, with long-term current use of insulin ([facility] Atrial fibrillation with RVR ([facility]) V-tach ([facility]) Atherosclerosis of southern [place] coronary artery of [place] heart without angina pectoris Pure hypercholesterolemia AICD present, double chamber- Medtronic Atrial flutter ([facility]) Paroxysmal atrial fibrillation ([facility]) Myositis Diabetic peripheral neuropathy associated with type 2 diabetes mellitus ([facility]) Hematuria, gross Non-healing surgical wound Degenerative changes of anterior chamber angle Diabetic autonomic neuropathy ([facility]) Diabetic renal disease ([facility]) Essential hypertension Hypomagnesemia Lower urinary tract symptoms due to benign prostatic hyperplasia Osteomyelitis ([facility]) Angina pectoris ([facility]) Lumbosacral spondylosis without myelopathy No Known Allergies [...] moderate LAE, mild RA AE, trace AI, [id number] MR, mild TR, RVSP 31 mm Hg Current cardiac medication regimen amiodarone 200 mg daily, aspirin 81 mg daily, Toprol 100 mg daily, Xarelto 20 mg daily Lives in [place] with friend. Retired - use to work [...] [employer]. Referred to Nephrology, appt in December. 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 Gets shots for macular degeneration Past Medical History: Diagnosis Date Angina pectoris ([facility]) Arrhythmia Atrial fibrillation ([facility] Atrial flutter ([facility]) Atrial flutter ([facility] Benign prostatic hyperplasia BPH with urinary obstruction Cancer ([facility]) skin cancer Cataract Constipation Coronary artery disease Dental disease no teeth Diabetes mellitus ([facility]) Diabetes mellitus type 2, controlled ([facility]) Hypercholesterolemia Hypertension Myositis Peripheral neuropathy Rash Scalp wound Urinary incontinence Ventricular tachycardia ([facility]) Visual impairment glasses No data recorded No data recorded No data recorded Past Surgical History: Procedure Laterality Date 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; excision and debridement Left 10/29/2021 Performed by Ambrosio Al MD at [facility] AMPUTATION TOE 4TH & 5TH/WIDE INCISIONAL DEBRIDEMENT LEFT DIABETIC FOOT NECROTIZING FASCITIS Left 08/12/2021 Performed by Ambrosio Al MD at [facility]ARD[facility] DEF[facility]RILLATOR [facility]ACEMENT medtronic CATARACT EXTRACTION Coronary angiogram and left ventricular gram/pressure N/A 11/19/2018 Performed by Sage Jay MD at [facility] Coronary fractional flow reserve N/A 11/19/2018 Performed by Sage Jay MD at [facility] CYSTOSCOPY [facility] SOLUTION N/A 10/27/2021 Performed by Frederic Thorne MD at [facility] DC ICD RA lead replace - MDT N/A 07/21/2020 Performed by Yoni Espinoza MD at [facility] (EP) EP - Device DC ICD Left 11/20/2018 Performed by Shayna Betancourt MD at [facility] (EP) EP - Diagnostic-- EP study Right 11/16/2018 Performed by Rafita Garcia MD at [facility] (EP) INJECTION BLOCK NERVE MEDIAL BRANCH: bilat L 10/05, 10/31 Bilateral 05/03/2024 Performed by Alber Hyde MD at [facility] Loop recorder implant N/A 11/16/2018 Performed by Rafita Garcia MD at [facility] (EP) Loop recorder removal N/A 07/21/2020 Performed by Yoni Espinoza MD at [facility] (EP) SKIN CANCER EXCISION Family History Problem [...] Interpersonal Safety: Unknown (08/24/2023) Received from [facility] Environment Fear of Current [...] moderate LAE, mild RA AE, trace AI, [id number] MR, mild TR, RVSP 31 mm Hg [...] in about 1 year (around 09/04/2025). PCP: [facility] Nathaniel Referring Physician: No referring provider defined for this encounter. JOSE MIGUEL Ribeiro 09/04/24 1453 documented in this encounter [facility] 09-04-2024 History of Present illness Narrative I agree with the findings in the scanned document. documented in this encounter [facility] 09-03-2024 Miscellaneous Notes Called patient to remind them to bring their most current copy of their medication list with them to their appt. Patient verbalizes understanding. documented in this encounter [facility] 09-03-2024 Telephone encounter Note Called patient to remind them to bring their most current copy of their medication list with them to their appt. Patient verbalizes understanding. [facility] 09-03-2024 Miscellaneous Notes Called patient to remind them to bring their most current copy of their medication list with them to their appt. Patient verbalizes understanding. documented in this encounter [facility] 09-03-2024 Telephone encounter Note Called patient to remind them to bring their most current copy of their medication list with them to their appt. Patient verbalizes understanding. [facility] 07-12-2024 Miscellaneous Notes Samantha 03/08/23 Pt has future appt 07/24/24 documented in this encounter [facility] 07-12-2024 Telephone encounter Note Samantha 03/08/23 Pt has future appt 07/24/24 [facility] 05-23-2024 History of Present illness Narrative [facility] [address] [place] [address] Patient: Radha Frausto Sex: male : 1955 Age: 69 y.o. PCP: [facility] Nathaniel 05/23/2024 Radha Frausto is here for a(n) post procedure [...] Past Medical History: Diagnosis Date Angina pectoris ([facility]) Arrhythmia Atrial fibrillation ([facility]) Atrial flutter ([facility]) Atrial flutter ([facility]) Benign prostatic hyperplasia BPH with urinary obstruction Cancer ([facility]) skin cancer Cataract Constipation Coronary artery disease Dental disease no teeth Diabetes mellitus ([facility]) Diabetes mellitus type 2, controlled ([facility] Hypercholesterolemia Hypertension Myositis Peripheral neuropathy Rash Scalp wound Urinary incontinence Ventricular tachycardia ([facility]) Visual impairment glasses Past Surgical History: Procedure Laterality Date 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; excision and debridement Left 10/29/2021 Performed by Ambrosio Al MD at [facility] AMPUTATION TOE 4TH & 5TH/WIDE INCISIONAL DEBRIDEMENT LEFT DIABETIC FOOT NECROTIZING FASCITIS Left 08/12/2021 Performed by Ambrosio Al MD at [facility] CARDIAC DEFIBRILLATOR PLACEMENT medtronic CATARACT EXTRACTION Coronary angiogram and left ventricular gram/pressure N/A 11/19/2018 Performed by Sage Jay MD at [facility] Coronary fractional flow reserve N/A 11/19/2018 Performed by Sage Jay MD at [facility] CYSTOSCOPY [facility] SOLUTION N/A 10/27/2021 Performed by Frederic Thorne MD at [facility] DC ICD RA lead replace - MDT N/A 07/21/2020 Performed by Yoni Espinoza MD at [facility] (EP) EP - Device DC ICD Left 11/20/2018 Performed by Shayna Betancourt MD at [facility] (EP) EP - Diagnostic-- EP study Right 11/16/2018 Performed by Rafita Garcia MD at [facility] (EP) INJECTION BLOCK NERVE MEDIAL BRANCH: bilat L 10/05, 10/31 Bilateral 05/03/2024 Performed by Alber Hyde MD at [facility] Loop recorder implant N/A 11/16/2018 Performed by Rafita Garcia MD at [facility] (EP) Loop recorder removal N/A 07/21/2020 Performed by Yoni Espinoza MD at [facility] (EP) SKIN CANCER EXCISION [...] Interpersonal Safety: Unknown (08/24/2023) Received from [facility] & Environment Fear of Current [...] accurate and complete. Caridad Wallis RN 05/23/24 2518 EDWARD Benavides 05/23/24 1418 documented in this encounter [facility] 05-23-2024 Miscellaneous Notes Last OV 03/08/23. Letter sent to pt 02/23. Attempted to call pt, no VM box set up. Letter sent. Pt will need appointment for future refills. documented in this encounter [facility] 05-23-2024 Telephone encounter Note Last OV 03/08/23. Letter sent to pt 02/23. Attempted to call pt, no VM box set up. Letter sent. Pt will need appointment for future refills. [facility] 04-09-2024 History of Present illness Narrative [facility] [address] [place] [address] Patient: Radha Frausto Sex: male : 1955 Age: 68 y.o. PCP: [facility] [place] 04/09/2024 Radha Frausto is here for a(n) Follow up [...] Past Medical History: Diagnosis Date Angina pectoris ([facility]) Arrhythmia Atrial fibrillation ([facility] Atrial flutter ([facility]) Atrial flutter ([facility]) Benign prostatic hyperplasia BPH with urinary obstruction Cancer ([facility]) skin cancer Cataract Constipation Coronary artery disease Dental disease no teeth Diabetes mellitus ([facility]) Diabetes mellitus type 2, controlled ([facility]) Hypercholesterolemia Hypertension Myositis Peripheral neuropathy Rash Scalp wound Urinary incontinence Ventricular tachycardia ([facility]) Visual impairment glasses Past Surgical History: Procedure Laterality Date 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; excision and debridement Left 10/29/2021 Performed by Ambrosio Al MD at [facility] AMPUTATION TOE 4TH & 5TH/WIDE INCISIONAL DEBRIDEMENT LEFT DIABETIC FOOT NECROTIZING FASCITIS Left 08/12/2021 Performed by Ambrosio Al MD at [facility] CARDIAC DEFIBRILLATOR PLACEMENT medtronic CATARACT EXTRACTION Coronary angiogram and left ventricular gram/pressure N/A 11/19/2018 Performed by Sage Jay MD at [facility] Coronary fractional flow reserve N/A 11/19/2018 Performed by Sage Jay MD at [facility] CYSTOSCOPY [facility] SOLUTION N/A 10/27/2021 Performed by Frederic Thorne MD at [facility] DC ICD RA lead replace - MDT N/A 07/21/2020 Performed by Yoni Espinoza MD at [facility] (EP) EP - Device DC ICD Left 11/20/2018 Performed by Shayna Betancourt MD at [facility] (EP) EP - Diagnostic-- EP study Right 11/16/2018 Performed by Rafita Garcia MD at [facility] (EP) Loop recorder implant N/A 11/16/2018 Performed by Rafita Garcia MD at [facility] (EP) Loop recorder removal N/A 07/21/2020 Performed by Yoni Espinoza MD at [facility] (EP) SKIN CANCER EXCISION [...] Interpersonal Safety: Unknown (08/24/2023) Received from [facility] Environment Fear of Current [...] these patients; however, close collaboration with a wrapper stripper or cut off saw tender metal is recommended before initiating the RFN procedure, therefore prior to RFA we will consult with patient's wrapper stripper/cut off saw tender metal for approval and recommendations to proceed with [...] Benavides 04/11/24 1226 [facility] [employer] [facility] Instructions Chula Bonilla CNA - 04/09/2024 [...] nearest emergency room. documented in this encounter [facility] 02-22-2024 History of Present illness Narrative [facility] [address] [place] [address] Patient: Radha Frausto Sex: male : 1955 Age: 68 y.o. PCP: [facility] Nathaniel 02/22/2024 Radha Frausto is here for a(n) follow up. [...] Past Medical History: Diagnosis Date Angina pectoris ([facility]) Arrhythmia Atrial fibrillation ([facility] Atrial flutter ([facility]) Atrial flutter ([facility]) Benign prostatic hyperplasia BPH with urinary obstruction Cancer ([facility]) skin cancer Cataract Constipation Coronary artery disease Dental disease no teeth Diabetes mellitus ([facility]) Diabetes mellitus type 2, controlled ([facility] Hypercholesterolemia Hypertension Myositis Peripheral neuropathy Rash Scalp wound Urinary incontinence Ventricular tachycardia ([facility]) Visual impairment glasses Past Surgical History: Procedure Laterality Date 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; excision and debridement Left 10/29/2021 Performed by Ambrosio Al MD at [facility] AMPUTATION TOE 4TH & 5TH/WIDE INCISIONAL DEBRIDEMENT LEFT DIABETIC FOOT NECROTIZING FASCITIS Left 08/12/2021 Performed by Ambrosio Al MD at [facility] CARDIAC DEFIBRILLATOR PLACEMENT [employer]tronic CATARACT EXTRACTION Coronary angiogram and left ventricular gram/pressure N/A 11/19/2018 Performed by Sage Jay MD at [facility] Coronary fractional flow reserve N/A 11/19/2018 Performed by Sage Jay MD at [facility] CYSTOSCOPY [facility] SOLUTION N/A 10/27/2021 Performed by Frederic Thorne MD at [facility] DC ICD RA lead replace - MDT N/A 07/21/2020 Performed by Yoni Espinoza MD at [facility] (EP) EP - Device DC ICD Left 11/20/2018 Performed by Shayna Betancourt MD at [facility] (EP) EP - Diagnostic-- EP study Right 11/16/2018 Performed by Rafita Garcia MD at [facility] ([facility]) Loop recorder implant N/A 11/16/2018 Performed by Rafita Garcia MD at [facility] ([facility]) Loop recorder removal N/A 07/21/2020 Performed by Yoni Espinoza MD at [facility] () SKIN CANCER EXCISION [...] Interpersonal Safety: Unknown (08/24/2023) Received from [facility] Fear of Current [...] Benavides 02/29/24 1218 documented in this encounter [facility] 02-21-2024 Miscellaneous Notes 02/21/24 Remember to arrange Mar 2024 annual offc appt. Please contact pt to arrange. documented in this encounter [facility] 02-21-2024 Miscellaneous Notes OV-03/08/2023 documented in this encounter [facility] 02-21-2024 Telephone encounter Note 02/21/24 Remember to arrange Mar 2024 annual offc appt. Please contact pt to arrange. [facility] 02-21-2024 Telephone encounter Note OV-03/08/2023 [facility] 01-17-2024 Miscellaneous Notes Martha Merlos RN states he is needing a prescription for Tramadol. She is requesting it as it was ordered while in the hospital because this has been effective for him. ( 50 mg every 8 hours ). 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 documented in this encounter [facility] 01-17-2024 Telephone encounter Note Martha Merlos RN states he is needing a prescription for Tramadol. She is requesting it as it was ordered while in the hospital because this has been effective for him. ( 50 mg every 8 hours ). 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 [facility] 01-11-2024 Miscellaneous Notes Patients friend came to window with request to get soma medication refilled. Provider stated we do not fill soma and friend instructed with information and to reach out pcp as they were the ones who provided patient with the rx. Friend verbalized understanding. documented in this encounter [facility] 01-11-2024 Telephone encounter Note Patients friend came to window with request to get soma medication refilled. Provider stated we do not fill soma and friend instructed with information and to reach out pcp as they were the ones who provided patient with the rx. Friend verbalized understanding. [facility] 01-09-2024 History of Present illness Narrative [facility] [address] [place] [place] [address] Patient: Radha Frausto Sex: male : 1955 Age: 68 y.o. PCP: [facility] Nathaniel 01/09/2024 Radha Frausto is here for a(n) initial consultation for [...] 10/29/2021 Performed by Ambrosio Al MD at [facility] AMPUTATION TOE 4TH & 5TH/WIDE INCISIONAL DEBRIDEMENT LEFT DIABETIC FOOT NECROTIZING FASCITIS Left 08/12/2021 Performed by Ambrosio Al MD at [facility] CARDIAC DEFIBRILLATOR PLACEMENT [employer]tronic CATARACT EXTRACTION Coronary angiogram and left ventricular gram/pressure N/A 11/19/2018 Performed by Sage Jay MD at [facility] Coronary fractional flow reserve N/A 11/19/2018 Performed by Sage Jay MD at [facility] CYSTOSCOPY [facility] SOLUTION N/A 10/27/2021 Performed by Frederic Thorne MD at [facility] DC ICD RA lead replace - MDT N/A 07/21/2020 Performed by Yoni Espinoza MD at [facility] ([facility]) EP - Device DC ICD Left 11/20/2018 Performed by Shayna Betancourt MD at [facility] ([facility]) EP - Diagnostic-- EP study Right 11/16/2018 Performed by Rafita Garcia MD at [facility] ([facility]) Loop recorder implant N/A 11/16/2018 Performed by Rafita Garcia MD at [facility]) Loop recorder removal N/A 07/21/2020 Performed by Yoni Espinoza MD at [facility] ([facility]) SKIN CANCER EXCISION [...] Interpersonal Safety: Unknown (08/24/2023) Received from [facility] Fear of Current [...] Bonilla CNA 01/09/24 1323 EDWARD Benavides 01/11/24 0989 documented in this encounter [facility] 08-09-2022 Note PROCEDURE: XR FOOT L T [...] by: EDILSON DON Date: 2022-08-09 15:44 [facility] Evaluation note Diagnosis Enuresis- Primary Functional urinary [...] Paroxysmal ventricular tachycardia [facility] Diagnosis Lumbar spondylolysis- Primary Lumbosacral spondylosis without myelopathy [facility] Diagnosis Atrial fibrillation, unspecified type (CMS-HCC)- Primary [facility] Diagnosis Ventricular tachycardia (CMS-HCC) Paroxysmal ventricular tachycardia Atrial fibrillation with RVR (CMS-HCC) V-tach (CMS-HCC) Paroxysmal ventricular tachycardia [facility] Diagnosis Lumbosacral spondylosis without myelopathy- Primary Disc displacement, lumbar Displacement of lumbar intervertebral disc without myelopathy Lumbar radiculopathy, chronic [facility] Diagnosis Lumbosacral spondylosis without myelopathy- Primary Lumbosacral spondylosis without myelopathy- Primary Lumbosacral spondylosis without myelopathy documented [facility] Diagnosis Enuresis- Primary Functional urinary incontinence BPH (benign prostatic hypertrophy) with urinary obstruction- Primary Hypertrophy of prostate with urinary obstruction and other lower urinary tract symptoms (LUTS) Benign prostatic hyperplasia with urinary obstruction- Primary Urinary retention- Primary Unspecified retention of urine Benign prostatic hyperplasia with urinary obstruction Lumbosacral spondylosis without myelopathy- Primary documented [facility] Diagnosis Enuresis- Primary Functional urinary incontinence BPH (benign prostatic hypertrophy) with urinary obstruction- Primary Hypertrophy of prostate with urinary obstruction and other lower urinary tract symptoms (LUTS) Benign prostatic hyperplasia with urinary obstruction- Primary Urinary retention- Primary Unspecified retention of urine Benign prostatic hyperplasia with urinary obstruction Ventricular tachycardia ([facility]) Paroxysmal ventricular tachycardia Atrial fibrillation with RVR ([facility]) V-tach ([facility]) Paroxysmal ventricular tachycardia [facility] Diagnosis Enuresis- Primary Functional urinary incontinence BPH (benign prostatic hypertrophy) with urinary obstruction- Primary Hypertrophy of prostate with urinary obstruction and other lower urinary tract symptoms (LUTS) Benign prostatic hyperplasia with urinary obstruction- Primary Urinary retention- Primary Unspecified retention of urine Benign prostatic hyperplasia with urinary obstruction Ventricular tachycardia (CMS-HCC)- Primary Paroxysmal ventricular tachycardia AICD present, double chamber Encounter for monitoring amiodarone therapy Paroxysmal atrial fibrillation ([facility]) Atrial fibrillation Typical atrial flutter ([facility]) V-tach ([facility]) Paroxysmal ventricular tachycardia Essential hypertension Unspecified essential hypertension [facility] Diagnosis Enuresis- Primary Functional urinary incontinence BPH (benign prostatic hypertrophy) with urinary obstruction- Primary Hypertrophy of prostate with urinary obstruction and other lower urinary tract symptoms (LUTS) Benign prostatic hyperplasia with urinary obstruction- Primary Urinary retention- Primary Unspecified retention of urine Benign prostatic hyperplasia with urinary obstruction AICD present, double chamber- [employer]- Primary [facility] Diagnosis Enuresis- Primary Functional urinary incontinence BPH (benign prostatic hypertrophy) with urinary obstruction- Primary Hypertrophy of prostate with urinary obstruction and other lower urinary tract symptoms (LUTS) Benign prostatic hyperplasia with urinary obstruction- Primary Urinary retention- Primary Unspecified retention of urine Benign prostatic hyperplasia with urinary obstruction Critical limb ischemia of left lower extremity with gangrene ([facility])- Primary PVD (peripheral vascular disease) Unspecified peripheral vascular disease documented [facility] Diagnosis Acute pain of right knee- Primary Arthritis of right knee Effusion of right knee documented in this encounter [facility]* Diagnosis Paronychia of great toe of right foot- Primary Angiopathy, diabetic (CMS/HCC) Type II or unspecified type diabetes mellitus with peripheral circulatory disorders, not stated as uncontrolled Diabetic polyneuropathy associated with type 2 diabetes mellitus (CMS/HCC) Status post partial amputation of left foot (CMS/HCC) documented in this encounter [facility]* Diagnosis Enuresis- Primary Functional urinary [...] Procedures MR lumbar spine without contrast Bebeto Romano PA [address], [address] [place] [address] [place] [address] [place] [address] Phone: [phone] Referral ID Status Reason Start Date Expiration Date V isits Requested Visits Authorized [id number] Pending Review 02/22/2024 02/21/2025 1 1 Specialty Diagnoses / Procedures Referred By Contac t Referred To Contact Diagnoses Lumbosacral spondylosis without myelopathy Procedures Case request operating room: INJECTION BLOCK NERVE MEDIAL BRANCH: bilat L45 51 Bebeto Romano PA [address] [address] Referral ID Status Reason Start Date Expiration Date V isits Requested Visits Authorized [id number] Pending Review 04/09/2024 04/09/2025 1 1 Additional Source Comments (unrecognized sect ion and content) No Status Records FoundNo Status Records FoundNo Status Records FoundNo Status Records FoundNo Status Records Found INFORMATION SOURCE (unrecogn ized section and content) DATE CREATED AUTHOR 11/16/2022 [facility] DATE CREATED AUTHOR AUTHOR'S ORGANIZ ATION 09/28/2024 [facility] DATE CREATED AUTHOR AUTHOR'S ORGANIZ ATION 10/05/2024 [facility] DATE CREATED AUTHOR AUTHOR'S ORGANIZ ATION 10/12/2024 [facility] DATE CREATED AUTHOR AUTHOR'S ORGANIZ ATION 11/11/2024 [facility] Reason for Visit (unrecogniz ed section [...] wound Specialty Diagnoses / Procedures Referred By Contac t Referred To Contact Vascular Surgery Diagnoses PVD (peripheral vascular disease) Mariana Gutiérrez, DPEdvin [address] [place] [address] [place] [address] Phone: tel: fax: [facility] [address] [place] [address] Phone: tel:[phone] fax: Referral ID Status Reason Start Date Expiration Date Visits Requested Visits Authorized [id number] Pending Review Specialty Services Required 08/28/2024 08/28/2025 1 1 Reason Comments Pain Reason Comments Toe Pain Radha Frausto 69yo New Patient last seen 07/12/2021. Patient is diabetic. Concerns of Right great toenail infection, patient relates drainage, thick and painful. Patient is seeing wound care in [place] for possible partial amputation of left foot, due to non-healing after amputation surgery 3 years ago, in [place]. Currently taking cephalexin for left foot infection. Left leg blood clot as of last week, patient is on aspirin and Xarelto. BS [address] Bejarano 09/30/2024 SS 10 Reason Comments ANGIO 09-27-24 Reason Onset Date Comments Surgical Or Dental Clearance 10/15/2024 Care Teams (unrecognized sec tion and content) Portfolio Architect Relationship Specialty Start Date End Date Services, [facility] [address] [place], [place] PCP - General Family Medicine 04/16/24 Portfolio Architect Relationship Specialty Start Date End Date Services, [facility] [address] [facility] [place] [place] PCP - General Family Medicine 12/26/23 Portfolio Architect Relationship Specialty Start Date End Date Services, [facility] [address], [place] PCP - General Family Medicine 12/26/23 Portfolio Architect Relationship Specialty Start Date End Date Services, [facility] [address], [place] PCP - General Family Medicine 12/26/23 Portfolio Architect Relationship Specialty Start Date End Date Services, [facility] [address], [place] PCP - General Family Medicine 12/26/23 Portfolio Architect Relationship Specialty Start Date End Date Services, [facility] [address], [place] PCP - General Family Medicine 12/26/23 Portfolio Architect Relationship Specialty Start Date End Date Services, [facility] [address], [place] PCP - General Family Medicine 12/26/23 Portfolio Architect Relationship Specialty Start Date End Date Services, [facility] [address], [place] PCP - General Family Medicine 04/16/24 Portfolio Architect Relationship Specialty Start Date End Date Services, [facility] [address], [place] PCP - General Family Medicine 04/16/24 Portfolio Architect Relationship Specialty Start Date End Date Services, [facility] [address], [place] PCP - General Family Medicine 04/16/24 Portfolio Architect Relationship Specialty Start Date End Date Services, [facility] [address], [place] PCP - General Family Medicine 04/16/24 Portfolio Architect Relationship Specialty Start Date End Date Services, [facility] [address], [place] PCP - General Family Medicine 04/16/24 Portfolio Architect Relationship Specialty Start Date End Date [facility] [address] [place] PCP - General Family Medicine 04/16/24 Portfolio Architect Relationship Specialty Start Date End Date Bradley Bejarano PA [address] [place] [address] PCP - General Family Medicine 10/02/24 Portfolio Architect Relationship Specialty Start Date End Date Bradley Bejarano PA [address] [place] [address] PCP - General Family Medicine 10/02/24 Portfolio Architect Relationship Specialty Start Date End Date Bradley Bejarano PA [address] [place] [address] PCP - General Family Medicine 10/02/24 Portfolio Architect Relationship Specialty Start Date End Date Bradley Bejarano PA [address] [place] [address] PCP - General Family Medicine 10/02/24 Portfolio Architect Relationship Specialty Start Date End Date [facility] [address] [place] PCP - General Family Medicine 04/16/24 [...] BE BASED ON THE PRIMARY CLINICAL RECORDS. [facility] provides no warranty or guarantee of the accuracy or completeness of information in this document.
== END 2024-11-11 10:44 | disposition home or self-care (01) ==
LOC: PST 10:43
PROVIDERS: Visit Provider Podiatrist Foot & Ankle Surgery
DX: Z01.818 Encounter for other preprocedural examination (principal); M21.6X2 Other acquired deformities of left foot

== ENCOUNTER 2024-11-12 09:49 | Day surgery (SDC) | payer MEDICARE, MEDICAID, SELFPAY ==
[2024-11-12] VITALS (13 sets, daily range): BP systolic 118–157; BP diastolic 66–96; PULSE 70–78; TEMP 36.4–37; O2SAT 89–100; BMI 26.6
[2024-11-12 10:11] LABS: Glucometer 152 mg/dL (74-106)
[2024-11-12] MEDS: LACTATED RINGER'S SOLUTION 1,000 ML 50 ML IV (10:37)
[2024-11-12] MEDS: CEFAZOLIN SODIUM 2 GM/50 ML D5W PREMIX IV (11:21)
--- NOTE | 2024-11-12 11:43 | XR_ITS ---
The [place] [id number] Patient Name: RADHA QUIÑONES MRN: [id number] date: 1955 Sex: M Assigned Patient Location: [facility] Current Patient Location: [facility] Accession/Order Number: [id number] Exam Date: 11/12/2024 14:31 Report Date: 11/12/2024 14:33 At the request of: MARIANA PHILLIPS DPEdvin Procedure: XR foot LT min 3V XR foot LT min 3V 11/12/2024 1:39 PM SIGNS AND SYMPTOMS: ^deformity left foot m21.6x2, postop ^Y PROTOCOL: Frontal, lateral, and oblique radiographs of the left foot COMPARISON: 07/31/2024 FINDINGS: There has been interval amputation of the left foot from the base of the metatarsals distally. There is accompanying soft tissue swelling over the stomach. Vascular calcifications are present in the soft tissues. There is mild plantar surface calcaneal spurring. XR/XR foot LT min 3V IMPRESSION: Status post amputation of the first through fifth digits of left foot with mild soft tissue swelling along the distal stump. Impression dictated by: Rafita Aranda M.D. 11/12/2024 2:33 PM Dictation Location: [place] [address] Electronically authenticated by: [id number] Y Date: 11/12/2024 14:33
--- NOTE | 2024-11-12 11:48 | P.ORON_ITS ---
Brief Operative Note Date of procedure: 11/12/24 Pre-op diagnosis general: Nonhealing left foot ulcer, deformity of left foot s econdary to previous partial amputation Post-op diagnosis: same as pre-op Procedure: Procedure performed: Delayed primary closure of left foot ulcer with transmetatarsal amputation and application of total contact cast Indications for procedure: Mr. Frausto is a 69-year-old male with a complicated past medical history including CAD and PAD and has been under my care in the wound center for several months due to a nonhealing ulceration. Despite local wound care and ensuring vascular optimization the ulceration failed to heal. Fortunately he has not developed recent infection. I discussed with Mr. Frausto and his family on multiple occasions the potential risks and benefits of surgical intervention stressing Mr. Frausto multiple comorbidities which place him at higher risk for perioperative complication and failure. Once medical clearance was obtained patient elected to undergo the above procedures. Intraoperative findings: Ulceration over the distal 3rd and 4th metatarsal stumps which measured 0.5 x 0.4 x 0.1 cm. No bone exposure however deep fascia was involved. Periwound skin was fragile and consistent with scar. Bone quality was within normal limits and there was no evidence of ongoing infection. Wound edges did bleed appropriately. Procedure in detail: Patient was identified in preoperative holding by myself w melonie time correct side and site were marked and consent was obtained. Patient is brought back to the operating theater placed on table in supine position and preoperative antibiotics were started. Anesthesia was administered and a thigh tourniquet was placed. Left lower extremity was prepped and draped in usual sterile fashion. Formal timeout was performed and local anesthesia consisting of 10 cc of 1% lidocaine plain and 10 cc of 0.5% Marcaine plain were administered as a standard ankle block. Left lower extremity was exsanguinated and the tourniquet was inflated. A modified fishmouth incision was placed over the stumps of the 3rd, 4th and 5th metatarsals allowing the ulceration and periwound scar to be excised. The incision was then extended over the 1st and 2nd metatarsals at the level of the MPJs again in a fishmouth type fashion. Bleeders were coagulated and a combination of sharp and blunt dissection was taken down to the shafts of the 1st and 2nd metatarsals. Then further dissection was placed over the stumps of the lateral 3 metatarsals exposing the residual metatarsal shafts. Then a sagittal saw was used to perform dorsal to plantar osteotomies of each metatarsal taking care to preserve a parabola and plantar bevel on the respective metatarsals. Then sharp dissection allowed the forefoot to be amputated which was passed the back table and sent as specimen. Surgical site was irrigated with copious saline and tendinous structures were cut proximally. The tourniquet was deflated which noted a somewhat sluggish hyperemic response but ultimately all tissues regained capillary refill. Bleeders were tied off and temporary pressure and elevation were applied to achieve hemostasis. Then several retention sutures were placed into the dorsal and plantar flaps of the amputation to reapproximate the skin edges. A scalpel and forceps were used to remove any excess skin while allowing closure without tension. Then the stump further closed meticulously with several absorbable 3-0 Monocryl's allowing the retention sutures to be removed. Then the stump was closed without tension using skin suture. A dry sterile dressing including Xeroform 4 x 4's and ABD followed by stockinette and felt padding to pad bony prominences. Then a total contact cast using the TCC-EZ system was applied accordingly. Patient tolerated the procedure anesthesia well was transferred to the recovery room with vital signs stable. Following a period of postoperative monitoring he will be discharged home under family's care. Postoperative plan: Discharge home under family's care Partial protected weightbearing to the left heel with use of walker Emphasized rest and elevation Keep cast clean dry and intact until follow-up which will be within 1 week Prescriptions were sent to his pharmacy using my office EMR Implants: None Anesthesia: local and General-LMA Surgeon: Jasen Solomon Slurry Control Operator Helper: Lynn Pelayo Estimated blood loss (mL): 100 Tourniquet time (min): 16 Pathology: other (forefoot amputation) Condition: stable Disposition: PACU
[2024-11-12] MEDS: LIDOCAINE HCL 1% 100 MG/10 ML MDV INJ (11:56)
[2024-11-12] MEDS: BUPIVACAINE HCL 0.5% PF 50 MG/10 ML VIAL INJ (11:56)
--- NOTE | 2024-11-12 13:23 | PC.NURSE ---
1315 removed LMA and placed oxygen on via nasal cannula at 3 liters. current oxygen saturation is 97% on 3 liters.
[2024-11-12 13:30] LABS: Glucometer 177 mg/dL (74-106)
--- NOTE | 2024-11-12 14:47 | PC.NURSE ---
Patient's sarah was washed up, cleaned and dried with a new brief applied. Tolerated well. Prior to discharge.
== END 2024-11-12 14:45 | disposition home or self-care (01) ==
PROVIDERS: Visit Provider Podiatrist Foot & Ankle Surgery
PROC: (CPT 28805; principal; 2024-11-12 11:00)
DX: E11.621 Type 2 diabetes mellitus with foot ulcer (principal); I25.10 Atherosclerotic heart disease of native coronary artery without angina pectoris; Z95.810 Presence of automatic (implantable) cardiac defibrillator; E11.51 Type 2 diabetes mellitus with diabetic peripheral angiopathy without gangrene; L97.525 Non-pressure chronic ulcer of other part of left foot with muscle involvement without evidence of necrosis; Z79.84 Long term (current) use of oral hypoglycemic drugs; Z79.85 Long-term (current) use of injectable non-insulin antidiabetic drugs; Z87.891 Personal history of nicotine dependence; E78.5 Hyperlipidemia, unspecified; I10 Essential (primary) hypertension; R06.09 Other forms of dyspnea; N40.0 Benign prostatic hyperplasia without lower urinary tract symptoms; E11.40 Type 2 diabetes mellitus with diabetic neuropathy, unspecified; E11.319 Type 2 diabetes mellitus with unspecified diabetic retinopathy without macular edema
CPT/HCPCS: 28805; 36415; 73630; 82948; 88305; 88311; J0131; J0665; J0690; J1100; J2250; J2371; J2405; J2704; J3010

== ENCOUNTER 2024-11-18 14:30 | Outpatient (OUT) | payer MEDICARE, MEDICAID, SELFPAY | END 2024-11-18 14:31 | disposition home or self-care (01) | LOC: WC 14:30 | PROVIDERS: Visit Provider Podiatrist Foot & Ankle Surgery | DX: E11.621 Type 2 diabetes mellitus with foot ulcer (principal); L97.421 Non-pressure chronic ulcer of left heel and midfoot limited to breakdown of skin | CPT/HCPCS: 29445 ==

== ENCOUNTER 2024-11-26 11:05 | Outpatient (OUT) | payer MEDICARE, MEDICAID, SELFPAY | END 2024-11-26 11:06 | disposition home or self-care (01) | LOC: WC 11:05 | PROVIDERS: Visit Provider Physician Assistant | DX: T87.89 Other complications of amputation stump (principal) | CPT/HCPCS: 29445 ==

== ENCOUNTER 2024-12-03 14:18 | Outpatient (OUT) | payer MEDICARE, MEDICAID, SELFPAY | END 2024-12-03 14:19 | disposition home or self-care (01) | LOC: WC 14:18 | PROVIDERS: Visit Provider Physician Assistant | DX: T87.89 Other complications of amputation stump (principal) | CPT/HCPCS: 29445 ==

== ENCOUNTER 2024-12-10 11:19 | Outpatient (OUT) | payer MEDICARE, MEDICAID, SELFPAY | END 2024-12-10 11:20 | disposition home or self-care (01) | LOC: WC 11:19 | PROVIDERS: Visit Provider Podiatrist Foot & Ankle Surgery | DX: T87.89 Other complications of amputation stump (principal) | CPT/HCPCS: 29445 ==

== ENCOUNTER 2024-12-18 13:52 | Outpatient (OUT) | payer MEDICARE, MEDICAID, SELFPAY ==
--- OUTSIDE RECORDS SUMMARY | 2024-11-18 09:00 | XMS_ITS ---
Author Organization [facility] vices Address [address], [place] [id number] Care Team Providers Care Document Reviewer Name Role Phone Bradley Bejarano Primary Care Provider REASON FOR VISIT DM & HTN Social History Sex Assigned At : Social History Observation Description Sex Assigned At Male Encounters Encounter Location Date Provider Diagnosis Main [address] [place] [id number] 11/18/2024 Bradley Bejarano Plan Of Treatment Next Appt Details Provider Name:Bradley Bejarano, 02/04/2025 01:45:00 PM, [address] [place], [place], [id number], Progress Notes * Tomas QUIÑONESDOB:1955 (69 yo M)Acc No.[id number]:11/18/2024 Medical Note Patient: Tomas PIPER Provider: Eda Bejarano :1955 A ge:69 Y S ex:Male Date:11/18/2024 Address:[address] [facility] , [address], [place], [id number] Subjective: * Chief Complaints: * 1 . DM & HTN. * Medical History: Objective: * Vitals: Assessment: Plan: * Treatment: * Billing Information: * Visit Code: * Procedure Codes: * Electronic signature of EDWARD Parra on 12/18/2024 at 01:55 PM EDT Sign off status: Pending * Provider: Eda Bejarano Date: 0 11/18/2024 Generated for Printi ng/Faxing/eTransmitting on: 0 12/18/2024 01:55 PM EDT
--- OUTSIDE RECORDS SUMMARY | 2024-12-05 09:45 | XMS_ITS ---
Author Organization [facility] vices Address [address] [place], [place] [id number] Care Team Providers Care Electroplating Worker Name Role Phone Bradley Bejarano Primary Care Provider Allergies No Known Allergies REASON FOR VISIT 1 month DM Medications Medication SIG (Take, Route, Frequency, Duration) Notes Start Date End Date Status traMADol HCl 50 MG 1 tablet as needed O rally Once a day Active Ozempic (0.25 or 0.5 MG/DOSE) 2 MG/3ML INJECT 0.5 MG SUBCUTANEOUSLY WEEKLY for 28 Active Tamsulosin HCl 0.4 MG TAKE 2 CAPSULES BY MOUTH 30 MINS AFTER MEAL DAILY for 90 Active Sertraline HCl 50 MG TAKE 1 TABLET BY MO UTH EVERY DAY for 90 Active Pantoprazole Sodium 40 MG TAKE 1 TABLET BY MOUTH EVERY DAY FOR 90 DAYS for 90 Active Xarelto 20 MG TAKE 1 TABLET BY YARELI TH EVERY DAY FOR 30 DAYS for 30 Active Metoprolol Succinate ER 100 MG TAKE 1 TABLET BY MOUTH EVERY DAY for 90 Active Basaglar KwikPen 100 UNIT/ML 36 units daily Subcutaneous daily for 30 days Active Tylenol 8 Hour Arthritis Pain 650 MG 2 tablets as needed Orally every 8 hrs 05/24/2023 Active Vitamin D3 25 MCG (1000 UT) TAKE 1 CAPSULE BY MOUTH EVERY DAY Orally Once a day for 90 days Active Jardiance 25 MG 1 tablet Orally Once a day for 90 days Active Magnesium Oxide -Mg Supplement 400 (240 Mg) MG TAKE 1 TABLET BY MOUTH EVERY DAY for 90 Active Acidophilus Probiotic 100 MG TAKE 1 CAPSULE BY MOUTH EVERY DAY for 30 Active Atorvastatin Calcium 20 MG 1 tablet Orally Once a day for 90 days Active Aspirin Low Dose 81 MG TAKE 1 TABLET BY MOUTH EVERY DAY for 90 Active Lac-Hydrin 12 % 1 application Mechanical Shovel Operator ally Twice a day 11/02/2022 Active Incontinence Brief Large - 1 brief for 90 days 09/26/2022 Active Amiodarone HCl 200 MG 1 tablet Orally On ce a day for 30 days 07/22/2022 Active Insulin Glargine 100 UNIT/ML as directed Subcutaneous 36 units evening Active Vitamin D3 125 MCG (5000 UT) TAKE 1 CAPSULE BY MOUTH EVERY DAY FOR 90 DAYS for 90 Active metFORMIN HCl ER 500 MG TAKE 2 TABLETS B Y MOUTH TWICE A DAY Orally twice a day for 90 days Active Social History Sex Assigned At : Social History Observation Description Sex Assigned At Male Vital Signs Temperature 97.4 degrees Fahrenheit 12/06/19 25 Height 67.50 in 12/05/2024 Blood pressure systolic 116 mm Hg 12/06/19 25 Blood pressure diastolic 67 mm Hg 025 Heart Rate 63 /min 12/05/2024 Respiratory Rate 18 /min 12/05/2024 Oximetry 99 % 12/05/2024 Height-cm 171.45 cm 12/05/2024 denies pain. Marisela Beard 12/05/2024 01:44:53 PM EDT > Encounters Encounter Location Date Provider Diagnosis Main [address] [place], [place] [id number] 12/05/2024 Bradley Bejarano Type 2 diabetes lissy itus with diabetic chronic kidney disease E11.22 and Weakness R53.1 Assessments Encounter Date Diagnosis (ICD Code) Assessment Notes Treatment Notes Treatment Clinical Notes Section Notes 12/05/2024 Type 2 diabetes mellitus with diabetic chronic kidney disease (ICD-10 - E11.22) pt will continue current medications at this time educated to watch sugars and montior for any GI side effects pt will follwo with A1c recheck in 2 months 12/05/2024 Weakness (ICD-10 - R53.1) pt needs referral for home OT or PT to hlep with his strength Plan Of Treatment Treatment Notes Assessment Notes Type 2 diabetes mellitus wit h diabetic chronic kidney disease pt will continue current medications at this time educated to watch sugars and montior for any GI side effects pt will follwo with A1c recheck in 2 months Weakness pt needs referral fo r home OT or PT to hlep with his strength Next Appt Details Follow Up: 2 Months, Reason: DM Provider Name:Bradley Bejarano, 02/04/2025 01:45:00 PM, [address] [place], [place], [phone], Progress Notes * Tomas QUIÑONES EdaDOB:1955 (69 yo M)Acc No.[id number]:12/05/2024 Medical Note Patient: Tomas PIPER Provider: Eda Bejarano :1955 A ge:69 Y S ex:Male Date:12/05/2024 Address:[address] [place] [address] , [address], [place], [id number] Subjective: * Chief Complaints: * 1 . 1 month DM. * HPI: I nterim History: pt presents for a month follwo up of DM he states that his sugars have been running innthe 130-170 range with some higher and some lower he was tarted on ozempic at last visit prior he was in ozempic, but had some N/V that was attributed to the Ozempic the N/V continued with discontunaution of the ozempic he deneis any N/V, headahce, vison changes, he reports that his sports marketing specialist ahs removed the remaing toes on his left leg he currently has a cast on that leg he staes that he has an increased amount ofwekaness and is unable to use a knee scooter as he can not get over anything that is not a flat surface. * ROS: N egative except mentioned above in the HPI. * Medical History: C ardiac Pacemaker with defibrillator, Diabetes mellitus type 2, Urinary incontinence without sensory awareness, Excoriation of scalp (resolved 04/10/2023), HTN, A fib, Anemia, unspecified type (resolved 09/28/2023). * Surgical History: C ataract Extraction-Bilateral , skin cancer removal on rt hand 12/2014 , Cardiac pacemaker/defibrillator , 3 toes removed- left foot 2022, 2 toes removed-left foot 10/2024. * Hospitalization/Major Diagno stic Procedure: B ack and foot pain 01/14/2024, see above . * Family History: F ather: . M other: . P aternal Grand Father: . P aternal Grand Mother: . M aternal Grand Father: . M aternal Grand Mother: .?Brother: . S ister: . * Social History: S exual History: F amily Planning A re you or your partner planning on becoming in the next year if not already ? N o W hat type of contraception are you using??Choose not to disclose * Medications: T aking metFORMIN HCl ER 500 MG Tablet Extended Release 24 Hour TAKE 2 TABLETS BY MOUTH TWICE A DAY Orally twice a day , Taking Vitamin D3 125 MCG (5000 UT) Capsule TAKE 1 CAPSULE BY MOUTH EVERY DAY FOR 90 DAYS , Taking Insulin Glargine 100 UNIT/ML Solution as directed Subcutaneous 36 units evening, Taking Amiodarone HCl 200 MG Tablet 1 tablet Orally Once a day , Taking Incontinence Brief Large - Miscellaneous 1 brief , Taking Lac-Hydrin 12 % Lotion 1 application Externally Twice a day , Taking Atorvastatin Calcium 20 MG Tablet 1 tablet Orally Once a day , Taking Acidophilus Probiotic 100 MG Capsule TAKE 1 CAPSULE BY MOUTH EVERY DAY , Taking Magnesium Oxide -Mg Supplement 400 (240 Mg) MG Tablet TAKE 1 TABLET BY MOUTH EVERY DAY , Taking Jardiance 25 MG Tablet 1 tablet Orally Once a day , Taking Aspirin Low Dose 81 MG Tablet Delayed Release TAKE 1 TABLET BY MOUTH EVERY DAY , Taking Vitamin D3 25 MCG (1000 UT) Capsule TAKE 1 CAPSULE BY MOUTH EVERY DAY Orally Once a day , Taking Tylenol 8 Hour Arthritis Pain 650 MG Tablet Extended Release 2 tablets as needed Orally every 8 hrs , Taking Basaglar KwikPen 100 UNIT/ML Solution Pen-injector 36 units daily Subcutaneous daily , Taking Metoprolol Succinate ER 100 MG Tablet Extended Release 24 Hour TAKE 1 TABLET BY MOUTH EVERY DAY , Taking Xarelto 20 MG Tablet TAKE 1 TABLET BY MOUTH EVERY DAY FOR 30 DAYS , Taking Pantoprazole Sodium 40 MG Tablet Delayed Release TAKE 1 TABLET BY MOUTH EVERY DAY FOR 90 DAYS , Taking Sertraline HCl 50 MG Tablet TAKE 1 TABLET BY MOUTH EVERY DAY , Taking Tamsulosin HCl 0.4 MG Capsule TAKE 2 CAPSULES BY MOUTH 30 MINS AFTER MEAL DAILY , Taking Ozempic (0.25 or 0.5 MG/DOSE) 2 MG/3ML Solution Pen-injector INJECT 0.5 MG SUBCUTANEOUSLY WEEKLY , Taking traMADol HCl 50 MG Tablet 1 tablet as needed Orally Once a day * Allergies: N .K.D.A. Objective: * Vitals: T emp:97.4F, Wt: Not Taken - Not able to stand, Ht: 67.50 in, BMI: Not Taken - Not able to stand, BP:116/67mm Hg, HR:63/min, RR:18/min, Pain scale:01-10, Oxygen sat %:99%, Ht-cm: 171.45 cm. denies pain.Marisela Beard 12/05/2024 01:44:53 PM EDT > . * Examination: C QM Exceptions: Currently taking Aspirin: A spirin Use: Y es G eneral Examination: General appearance: a lert, pleasant, well-nourished and in no acute distress. Head: n ormocephalic, atraumatic. Ears: a uditory canal clear, tympanic membrane intact and clear. Heart: r egular rate and rhythm without murmurs, gallops, clicks or rubs. Lungs: c lear to auscultation bilaterally, with good air movement and no rales, rhonchi or wheezes. Extremities: n ormal extremity with no clubbing, cyanosis or edema. Psych: a lert and oriented x 3. Assessment: * Assessment: 1. T ype 2 diabetes mellitus with diabetic chronic kidney disease - E11.22 (Primary) 2 . W ruslan - R53.1 Plan: * Treatment: 2. W ruslan Notes: pt needs referral for home OT or PT to [facility] with his strength * Procedure Codes: 3 078F HTN DIAST BP < 80, 3074F HTN SYST BP < 130, G0467 [facility] visit, established patient * Follow Up: 2 Months (Reason: DM) * Billing Information: * Visit Code: 26961 Office Visit Est 20-29 minutes. * Procedure Codes: 3078F HTN DIAST BP < 80. 3074F HTN SYST BP < 130. G0467 [facility] visit, established patient. * Sign off status: Completed true * Provider: Eda Bejarano Date: 12/05/2024 Generated for Camille clement/Malena/Katieitting on: 12/18/2024 01:54 PM EDT History and Physical Notes * HPI (History of Present Illness) Category Sub-Category Detail Notes Category Not es Interim History pt presents for a month follwo up of DM he states that his sugars have been running innthe 130-170 range with some higher and some lower he was tarted on ozempic at last visit prior he was in ozempic, but had some N/V that was attributed to the Ozempic the N/V continued with discontunaution of the ozempic he deneis any N/V, headahce, vison changes, he reports that his sports marketing specialist s removed the remaing toes on his left leg he currently has a cast on that leg he staes that he has an increased amount ofwekaness and is unable to use a knee scooter as he can not get over anything that is not a flat surface Examination Category Sub-Category Detail Notes Category Not es General Examination General appearance: alert, p leasant, well-nourished and in no acute distress Head: normocephalic, atrau matic Ears: auditory canal clear , tympanic membrane intact and clear Heart: regular rate and rhy thm without murmurs, gallops, clicks or rubs Lungs: clear to auscultatio n bilaterally, with good air movement and no rales, rhonchi or wheezes Extremities: normal extremity wit h no clubbing, cyanosis or edema Psych: alert and oriented x 3 CQM Exceptions Currently taking Aspirin: Aspirin Use:: Yes
--- OUTSIDE RECORDS SUMMARY | 2024-12-11 07:51 | XMS_ITS ---
Author Organization [facility] [place] Address [address] [place] [address] Care Team Providers Care Habilitation Training Specialist Name Role Phone Kika Parekh Primary Care Provider Unavail Juan Alva Unavailable [phone] Allergies No Known Allergies REASON FOR VISIT Provisioning Specialist chart prep Medications Medication SIG (Take, Route, [...] Active Encounters Encounter Location Date Provider Diagnosis [facility] [address] [place] [address] 12/11/2024 Juan Swain Plan Of Treatment Next Appt Details Provider Name:Juan Swain, 12/23/2024 01:00:00 PM, [address], [place], [address], Progress Notes * Tomas QUIÑONESDOB:1955 (69 yo M)Acc No.[id number]:12/11/2024 Patient: Tomas PIPER :1955 A ge:69 Y S ex:Male Address:[address] [place] [address] , [address], [place] [address] Subjective: * Chief Complaints: * N p chart prep * Medical History: * Surgical History: c ataract extraction- bilateral skin cancer removal on right hand 12/2014cardiac pacemaker/ defibrillation three toes removed from left foot 2022 * Hospitalization/Major Diagno stic Procedure: b ack and foot pain * Family History: F ather: . M other: . B eddier(s): . S ister(s): .?Paternal Grandfather: . P [...] Codes: * true * Date: Generated for aCmille clement/Malena/Bc on: 0 12/18/2024 01:56 PM EDT
--- OUTSIDE RECORDS SUMMARY | 2024-12-18 13:55 | XMS_ITS | Encounter Summary ---
Author Organization [facility] Address [id number] [address] [place] [address] Care Team Providers Care Bag Filler Name Role Phone Services, Primary Care Provider Encounter Details Date Type Department Care Team (Late st Contact Info) Description 12/16/2021 Telephone [facility] [address] [place] [phone] Stayc Saldana, SANTY Social History Tobacco Use Types Packs/Day Years Used Date Smoking Tobacco: Never Smokeless Tobacco: Never Alcohol Use Standard Drinks/Week Comments No 0 (1 standard drink = 0.6 oz pur e alcohol) Childcare Answer Date Recorded Childcare Unknown 12/03/2018 Employment Answer Date Recorded Employment Unknown 12/03/2018 Purpose - Life Answer Date Recorded Purpose and direction in life Unknown Sex and Gender Information Value Date Recorded Sex Assigned at Not on file Legal Sex Male 11:39 AM EDT Gender Identity Not on file Sexual Orientation Not on file COVID-19 Exposure Response Date Recorded In the last month, have you been in contact with someone who was confirmed or suspected to have Coronavirus / COVID-19? No / Unsure 12/17/2021 12:07 PM EDT documented as of this encounter Plan of Treatment Not on file documented as of this encounter Goals Goal Patient Goal Type Associated Problems Recent Progress Patient-Stated? Author safe transition from hospital to home General Yes Laurie Villar, MAINT MECHANIC-[employer] INTERVIEWS INTERN Note: Evaluation of progress towards goal: discharge home with mu-ism/friends support. <enter goal here> General Yes Sunita Tomlinson, ALANIS Note: Evaluation of progress towards goal: plan home self care SNF General Yes Cathryn Kapadia, CORPORATE REAL ESTATE MANAGER Note: Evaluation of progress towards goal: Patient likely will discharge to a SNF documented as of this encounter Visit Diagnoses Not on filedocumented in this encounter Care Teams Bag Filler Relationship Specialty Start Date End Date [facility], [address] [place], [place] PCP - General Family Medicine 04/16/24 documented as of this encounter
--- OUTSIDE RECORDS SUMMARY | 2024-12-18 13:55 | XMS_ITS | Encounter Summary ---
Author Organization Before the [facility] tem Address [id number] [address] [place] [address] Care Team Providers Care Survey Compiler Name Role Phone Services, [facility] Primary Care Provider Encounter Details Date Type Department Care Team (Late st Contact Info) Description 01/28/2022 Telephone [facility] [address] [place] [phone] Di Londno CNA Social History Tobacco Use Types Packs/Day Years [...] have Coronavirus / COVID-19? No / Unsure 01/05/2022 10:28 AM EDT documented as of this encounter Plan of Treatment Not on file documented as of this encounter Goals Goal Patient Goal Type Associated Problems Recent Progress Patient-Stated? Author safe transition from hospital to home General Yes Laurie Villar, DERRICK CAR OPERATOR-JOB SERVICE SPECIALIST Note: Evaluation of progress towards goal: discharge home with bahai/friends support. <enter goal here> General Yes Sunita Tomlinson, ALANIS Note: Evaluation of progress towards goal: plan home self care SNF General Yes Cathryn Kapadia, CD 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 SUPERVISOR Note: Evaluation of progress towards goal: Patient likely will discharge to a SNF documented as of this encounter Visit Diagnoses Not on filedocumented in this encounter Care Teams Survey Compiler Relationship Specialty Start Date End Date [facility], [facility] [address] [place], [place] PCP - General Family Medicine 04/16/24 documented as of this encounter
--- OUTSIDE RECORDS SUMMARY | 2024-12-18 13:55 | XMS_ITS | Encounter Summary ---
[facility] Address [id number] [address] [place] [address] Care Team Providers Care Political Analyst Name Role Phone Services, [facility] Primary Care Provider Encounter Details Date Type Department Care Team (Late st Contact Info) Description 09/27/2021 Telephone [facility] [address] [place] [id number] Stacy Saldana, SANTY Social History Tobacco Use Types [...] Exposure Response Date Recorded In the last 10 days, have yo u been in contact with someone who was confirmed or suspected to have Coronavirus/COVID-19? No / Unsure 09/27/2021 12:22 PM EDT documented as of this encounter Plan of Treatment Not on file documented as of this encounter Goals Goal Patient Goal Type Associated Problems Recent Progress Patient-Stated? Author safe transition from hospital to home General Yes Villar, Laurie L, FLORAL CLERK-SUPPORT STAFF Note: Evaluation of progress towards goal: discharge home with temple/friends support. <enter goal here> General Yes Sunita Tomlinson, EXPRESSIVE THERAPIST Note: Evaluation of progress towards goal: plan home self care SNF General Yes Cathryn Kapadia, EXPRESSIVE THERAPIST Note: Evaluation of progress towards goal: Patient likely will discharge to a SNF documented as of this encounter Visit Diagnoses Not on filedocumented in this encounter Care Teams Political Analyst Relationship Specialty Start Date End Date [facility], [facility] [address] [place], [place] PCP - General Family Medicine 04/16/24 documented as of this encounter
--- OUTSIDE RECORDS SUMMARY | 2024-12-18 13:55 | XMS_ITS | Clinical Summary ---
Author Organization [employer] [facility] Address [id number] [address] [place] [address] Care Team Providers Care Commercial Counsel Name Role Phone Services, Former[facility] Primary Care Provider Allergies No known active allergies Medications EASY TOUCH 31 gauge x 5/16 needle 8 Active metFORMIN XR (GLUCOPHAGE-XR) 500 mg 24 hr tablet Take 2 tablets (1,000 mg total) by mouth in the morning and 2 tablets (1,000 mg total) before bedtime. 8 Active aspirin 81 mg Take 1 tablet (81 mg total) by mouth in the morning. Active sertraline (ZOLOFT) 50 mg tablet Take 1 tablet (50 mg total) by mouth in the morning. Active empagliflozin (JARDIANCE) 25 mg tablet tablet Take 1 tablet (25 mg total) by mouth in the morning. Active XARELTO 20 mg tablet tabletIndications :Atrial fibrillation, unspecified type (CMS-HCC) TAKE 1 TABLET (20 MG TOTAL) BY MOUTH IN THE MORNING 90 tablet 1 4 Active acetaminophen (TYLENOL ARTHRITIS) 650 mg 8 hr tablet Take 1 tablet (650 mg total) by mouth every 8 (eight) hours as needed for pain. Active metoprolol succinate XL (TOPROL XL) 100 mg 24 hr tabletIndications :Ventricular tachycardia (CMS-HCC),Atrial fibrillation with RVR (CMS-HCC),V-tach (CMS-HCC) TAKE 1 TABLET (100 MG TOTAL) BY MOUTH IN THE MORNING 90 tablet 5 Active amiodarone (PACERONE) 200 mg tablet Take 1 tablet (200 mg total) by mouth in the morning. 90 tablet 3 5 Active atorvastatin (LIPITOR) 20 mg tablet Take 1 tablet (20 mg total) by mouth in the morning. 5 Active doxycycline (VIBRAMYCIN) 100 mg capsule Take 1 capsule (100 mg total) by mouth in the morning and 1 capsule (100 mg total) before bedtime. Do all this for 7 days. 14 capsule 5 11/22/19 25 Active Problems Problem Noted Date Diagnosed Date Critical limb ischemia of le ft lower extremity with gangrene 09/26/2024 Assessment & Plan (10/10/2024 11:08 AM EDT): PVR. Continue best medical therapy with aspirin and statin. Assessment & Plan (09/26/2024 9:53 AM EDT): Left lower extremity angiogram and intervention Lumbosacral spondylosis without myelopathy 04/09 Degenerative changes of anterior chamber angle 0 11/17/2021 Diabetic autonomic neuropathy 11/17/2021 Diabetic renal disease 11/17/2021 Essential hypertension 11/17/2021 Hypomagnesemia 11/17/2021 Lower urinary tract symptoms due to benign prostatic hyperplasia 11/17/2021 Osteomyelitis 11/17/2021 Angina pectoris 11/17/2021 Non-healing surgical wound 10/01/2021 Hematuria, gross 09/15/2021 Overview (09/15/2021): ==== 09/15/2021 ==== hospitalize for gangrenous toe. Status post toe amp x2. Is on Xarelto. Did have a negative urine culture with gross hematuria. Negative CT urogram. Cytology was negatvie PLAN: cystoscopy. 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 Diabetic report sugar control. Creatinine is good. GFR good PSA 0.94. No prior evaluation or intervention. No imaging. ==== 10/24/2016 ==== Bladder outlet obstruction secondary to BPH. Poor uroflow--pvr acceptable. UDS artifactual with baseline pressure negative. Renal tano negative ==== 10/23/2017 ==== excellent response Flomax. Return to clinic 6 months Assessment & Plan (10/23/2017 2:30 PM EDT): Postvoid residual today 0 cc. Assessment & Plan (04/24/2017 4:27 PM EDT): Continues to do very well. Refilled Flomax. See him back in 6 months. Check PVR Assessment & Plan (09/07/2016 10:30 AM EST): Side effects and mechanism of action of med discussed Functional urinary incontinence 08/10/2016 Assessment & Plan (08/10/2016 4:27 PM EST): Evaluate with , cystoscopy. Patient did have some urinary retention of 406 cc and then down to 179. Obtain renal bladder ultrasound as well. CMG flow study. Encounters Date Type Department Care Team Description 11/14/2024 12:16 AM EDT - 11/14/2024 2:38 AM EDT Emergency [facility] - Emergency [address] [place] [address] Winston Dent MD Pneumonia due to infectious organism, unspecified laterality, unspecified part of lung (Primary Dx); Generalized weakness; Pleural effusion Discharge Disposition: Home 11/14/2024 Travel 11/04/2024 9:38 AM EDT - 11/04/2024 11:59 PM EDT Hospital Encounter [facility] - Stress Imaging [address] [place] [address] Vandana Brar PHARMACY SERVICES DIRECTOR-POWER SWITCHBOARD OPERATOR Discharge Disposition: Still a Patient 11/04/2024 8:56 AM EDT - 11/04/2024 9:37 AM EDT Hospital Encounter [facility] - Cardiovascular [address] [place] [address] Vandana Brar PHARMACY SERVICES DIRECTOR-POWER SWITCHBOARD OPERATOR Discharge Disposition: Still a Patient 11/04/2024 7:50 AM EDT - 11/04/2024 8:55 AM EDT Hospital Encounter [facility] - Stress Imaging [address] [facility] [place] [phone] Vandana Brar PHARMACY SERVICES DIRECTOR-POWER SWITCHBOARD OPERATOR Discharge Disposition: Still a Patient 11/04/2024 7:50 AM EDT - 11/04/2024 8:55 AM EDT Hospital Encounter [facility] - Stress Imaging [address] [facility] [place] [phone] Vandana Brar PHARMACY SERVICES DIRECTOR-POWER SWITCHBOARD OPERATOR Preoperative clearance; Coronary artery disease involving ho-chunk coronary artery of ho-chunk heart without angina pectoris Discharge Disposition: Still a Patient 11/04/2024 Travel 10/21/2024 Orders Only [facility] [address] [place] [address] Vandana Brar PHARMACY SERVICES DIRECTOR-POWER SWITCHBOARD OPERATOR Preoperative clearance (Primary Dx); Coronary artery disease involving ho-chunk coronary artery of ho-chunk heart without angina pectoris 10/15/2024 Telephone [facility] [address] [place] [phone] Phylicia Torres LPN Surgical Or Dental Clearance 10/10/2024 11:00 AM EDT Office Visit [facility] [address] [place] [address] Gretta Whitlock MD Critical limb ischemia of left lower extremity with gangrene ([facility]) (Primary Dx) 10/10/2024 Travel 09/27/2024 1:57 PM EDT - 09/27/2024 2:39 PM EDT Surgery [facility] - Cardiac Cath [address] [place] [address] Gretta Whitlock MD ANGIO LOWER EXT 09/27/2024 11:48 AM EDT - 09/27/2024 7:35 PM EDT Hospital Encounter [facility] - CVU-IVU [address] [place] [address] Gretta Whitlock MD Critical limb ischemia of left lower extremity with gangrene ([facility]) Discharge Disposition: Home 09/27/2024 Travel 09/26/2024 9:40 AM EDT Office Visit [facility] [address] [place] [address] Gretta Whitlock MD Critical limb ischemia of left lower extremity with gangrene ([facility]) (Primary Dx); PVD (peripheral vascular disease) ([facility]) 09/23/2024 11:23 AM EDT - 09/23/2024 11:59 PM EDT Hospital Encounter [facility] - Pulmonary Function [address] [place] [address] Vandana Brar, PHARMACY SERVICES DIRECTOR-POWER SWITCHBOARD OPERATOR Encounter for monitoring amiodarone therapy Discharge Disposition: Home 09/23/2024 Travel from Last 3 Months Immunizations Immunization Administration Dates Next Due Influenza (IM) Preservative Free 05/10/2017,03/04 Influenza, Im Trivalent Preservative 04/15/2014 Influenza, Injectable, Mdck, Preservative Free, Quad 05/18/2018 Influenza, Injectable, quadrivalent (PF) 021 Family History Medical History Relation Name Comments COPD Father Early Father Diabetes Mother Relation Name Status Comments Father Mother Social History Tobacco Use Types Packs/Day Years Used Date Smoking Tobacco: Former Cigarettes Smokeless Tobacco: Never Tobacco Cessation:Counseling Given: Not Answered Alcohol Use Standard Drinks/Week Comments No 0 (1 standard drink = 0.6 oz pur e alcohol) Childcare Answer Date Recorded Childcare Unknown 12/03/2018 Employment Answer Date Recorded Employment Unknown 12/03/2018 Hunger Screening Answer Date Recorded Within the past 12 months we worried whether our food would run out before we got money to buy more. Never True 10/10/2024 Within the past 12 months th e food we bought just didn't last and we didn't have money to get more. Never True 10/10/2024 Purpose - Life Answer Date Recorded Purpose and direction in life Unknown Sex and Gender Information Value Date Recorded Sex Assigned at Not on file Legal Sex Male 11:39 AM EDT Gender Identity Not on file Sexual Orientation Not on file Last Filed Vital Signs Vital Sign Reading Time Taken Comments Blood Pressure 129/79 11/14/2024 2:30 AM EDT Pulse 66 11/14/2024 2:30 AM EDT Temperature 36.8 C (98.3 F) 11/14/2024 12:17 AM EDT Respiratory Rate 20 11/14/2024 2:30 AM EDT Oxygen Saturation 91% 11/14/2024 2:30 AM EDT Inhaled Oxygen Concentration - - Weight 81.6 kg (180 lb) 11/04/2024 7:20 AM EDT Height 175.3 cm (5' 9 ) 11/04/2024 7:20 AM EDT Body Mass Index 26.58 11/04/2024 7:20 AM EDT Plan of Treatment Health Maintenance Due Date Last Done Comments Diabetic Ophthalmology Exam 1954 Depression Screening 1966 Adult BMI Follow Up Plan 1972 Diabetic Foot Exam 1972 DTaP,Tdap and Td Vaccines (1 - Tdap) 1973 Zoster (Shingles) Vaccine (1 of 2) 2004 Abdominal Aortic Aneurysm (A AA) Screen 2019 Fall Risk Screening 2019 COVID-19 Vaccine ( - 2023-2 5 season) 2024 05/06/2021, 10/01/2020, 09/03/2020 Influenza Vaccine 03/03/2025 04/11/2023, , 04/19/2021, Additional history exists Adult BMI Screening 11/04/2025 11/04/2024 Tobacco Screening 11/14/2025 11/14/2024 Goals Goal Patient Goal Type Associated Problems Recent Progress Patient-Stated? Author safe transition from hospital to home General Yes Laurie Villar, PHARMACY SERVICES DIRECTOR-POWER SWITCHBOARD OPERATOR Note: Evaluation of progress towards goal: discharge home with cheondoism/friends support. <enter goal here> General Yes Sunita Tomlinson LSW Note: Evaluation of progress towards goal: plan home self care SNF General Yes Cathryn Kapadia, ROBOTICS APPLICATION ENGINEER Note: Evaluation of progress towards goal: Patient likely will discharge to a SNF Medical Devices Implanted Type Area Bradder Device Identifier Shelf Expiration Date Model / Serial / Lot Ld Pcng 55cm Rv Sq Scr S Df-4 - [id number] - [id number] Implanted:Qty : 1 on 11/20/2018 by Shayna Betancourt MD at [facility] Implant Lead Left: Chest [employer] CARD RHYTHM DEVICES 09/11/2020 [id number] / [id number] / Lead Capsure Fix Novus 5076-45 - [id number] - [id number] Implanted:Qty : 1 on 11/20/2018 by Shayna Betancourt MD at [facility] Implant Lead Left: Chest [employer] [place] 09/17/2020 5076-45 / [id number] / Lead Capsure Fix Novus 5076-52 - [id number] - [id number] Implanted:Qty : 1 on 07/21/2020 by Yoni Espinoza MD at [facility] Implant Lead Left: Chest [employer] CARD RHYTHM DEVICES 04/03/2022 5076-52 / [id number] / Dfbr Crd Evera Mri Xt - [id number] - [id number] Implanted:Qty : 1 on 11/20/2018 by Shayna Betancourt MD at [facility] Other Implant Left: Chest [employer] CARD RHYTHM DEVICES 02/14/2020 [id number] / [id number] / Explanted Type Area Bradder Device Identifier Shelf Expiration Date Model / Serial / Lot Sys Crd Rvl Linq Rpl [id number] - [id number] - [id number] Implanted:Qty : 1 on 11/16/2018 by Rafita Garcia MD at [facility] Other Implant Left: Chest [employer] CARD RHYTHM DEVICES 10/15/2019 [id number] / [id number] / Procedures Procedure Name Priority Date/Time Associated Diagnosis Comments TROP I, HIGH SENSITIVITY 1 HOUR STAT 11/14/2024 1:51 AM EDT XR FOOT LT MIN 3 VWS STAT 11/14/2024 12:59 AM EDT XR CHEST 1 VW STAT 11/14/2024 12:59 AM EDT TROPONIN I, HIGH SENSITIVITY 0 HOUR STAT 11/14/2024 12:35 AM EDT MAGNESIUM STAT 11/14/2024 12:35 AM EDT TROPONIN I, HIGH SENSITIVITY 0 HOUR STAT 11/14/2024 12:35 AM EDT LIPASE STAT 11/14/2024 12:35 AM EDT COMPREHENSIVE METABOLIC PANEL STAT 11/14/2024 12:35 AM EDT CBC WITH AUTO DIFFERENTIAL STAT 11/14/2024 12:35 AM EDT EXTRA TUBES BLUE TOP Routine 11/14/2024 12:34 AM EDT D-DIMER STAT Add-on 11/14/2024 12:34 AM EDT EXTRA TUBES Routine 11/14/2024 12:34 AM EDT BEDSIDE GLUCOSE Routine 11/14/2024 12:22 AM EDT ECG 12-LEAD STAT 11/14/2024 12:20 AM EDT NUC STRESS LEXISCAN Routine 11/04/2024 1 0:29 AM EDT Preoperative clearance Coronary artery disease involving ho-chunk coronary artery of ho-chunk heart without angina pectoris AR INTERROGATION EVAL REMOTE </90 D 1/2/TICKET COLLECTOR OR USHER LD DFB Routine 11/03/2024 1:27 AM EDT VASCULAR INVASIVE Routine 09/27/2024 4:1 8 PM EDT Critical limb ischemia of left lower extremity with gangrene (CMS-HCC) VASCULAR INVASIVE Routine 09/27/2024 4:1 8 PM EDT Critical limb ischemia of left lower extremity with gangrene (CMS-HCC) VASCULAR INVASIVE Routine 09/27/2024 4:1 8 PM EDT Critical limb ischemia of left lower extremity with gangrene (CMS-HCC) PORTABLE GLUCOSE Routine 09/27/2024 12:3 4 PM EDT POCT UREA (BUN) Routine 09/27/2024 12:34 PM EDT SPIROMETRY PRE/POST BRONCHODILATOR AND DLCO AND PLETHYSMOGRAPHY Routine 09/23/2024 11:49 AM EDT Encounter for monitoring amiodarone therapy from Last 3 Months Results * Troponin I, High Sensitivity 1 Hour (11/14/2024 1:51 AM EDT) TROPONIN I, HIGH SENSITIVITY 8 <21 ng/L 11/14/2024 2:20 AM EDT [facility] Blood Venous blood / Unknown 11/14/2024 1:51 AM EDT 11/14/2024 1:52 AM EDT Winston Dent MD LAB BLOOD ORDERABLES Final R esult [facility] [address] [place] [address], [place] * X-ray foot left minimum 3 views (11/14/2024 12:59 AM EDT) Anatomical Region Laterality Modality Lower Extremities, MSK, Foot Left Com puted Radiography 11/14/2024 1:30 AM EDT Narrative 11/14/2024 1:31 AM EDT History: Weakness Exam/Technique: 3 views of the left foot were obtained. Comparison: None Findings: Transmetatarsal amputation of the digits is seen. Extensive vascular calcifications are identified. No complicating processes are seen. There is no evidence for an acute osseous abnormality. IMPRESSION: Transmetatarsal amputations of the digits. Otherwise normal left foot. Finalized by Stan Jaramillo MD on 11/14/2024 1:31 AM Procedure Note Stan Jaramillo MD - 11/14/2024 History: Weakness Exam/Technique: 3 views of the left foot were obtained. Comparison: None Findings: Transmetatarsal amputation of the digits is seen. Extensivevascular calcifications are identified. No complicating processes areseen. There is no evidence for an acute osseous abnormality. IMPRESSION: Transmetatarsal amputations of the digits. Otherwise normalleft foot. Finalized by Stan Jaramillo MD on 11/14/2024 1:31 AM Winston Dent MD IMG DIAGNOSTIC IMAGING ORDER [place] Final Result * X-ray chest 1 view (11/14/2024 12:59 AM EDT) Anatomical Region Laterality Modality Body, Chest N/A Computed Radiogr aphy 11/14/2024 1:18 AM EDT Narrative 11/14/2024 1:19 AM EDT History: weakness Exam/Technique: Single AP view of the chest was obtained Comparison: Chest x-ray 03/15/2023 Findings: There is stable mild cardiomegaly with intact pacer leads. There is low lung volume with right lung basilar airspace disease and possibly small effusion. There is no pneumothorax. IMPRESSION: Mild cardiomegaly and possibly small right-sided pleural effusion and basilar airspace disease given low lung volume Finalized by Fausto Angulo MD on 11/14/2024 1:19 AM Procedure Note Fausto Angulo MD - 11/14/2024 History: weakness Exam/Technique: Single AP view of the chest was obtained Comparison: Chest x-ray 03/15/2023 Findings: There is stable mild cardiomegaly with intact pacer leads. There is low lung volume with right lung basilar airspace disease andpossibly small effusion. There is no pneumothorax. IMPRESSION: Mild cardiomegaly and possibly small right-sided pleural effusion andbasilar airspace disease given low lung volume Finalized by Fausto Angulo MD on 11/14/2024 1:19 AM Winston Dent MD IMG DIAGNOSTIC IMAGING ORDER STERLING Final Result * Troponin I, High Sensitivity 0 Hour (11/14/2024 12:35 AM EDT) [facility] TROPONIN I, HIGH SENSITIVITY 7 <21 ng/L 11/14/2024 1:03 AM EDT [facility] Blood Venous blood / Unknown 11/14/2024 12:35 AM EDT 11/14/2024 12:36 AM EDT Winston Dent MD LAB BLOOD ORDERABLES Final R esult [facility] [address] [place] [address], * (ABNORMAL) CBC auto differential (11/14/2024 12:35 AM EDT) [facility] WBC 9.0 4 - 11 x10E9/L 11/14/2024 12:46 AM EDT [facility] RBC Count 3.85(L) 4.1 - 5.7 X10E12/L 11/14/2024 12:46 AM EDT [facility] Hemoglobin 11.4(L) 13 - 17 g/dL 11/14/2024 12:46 AM EDT [facility] Hematocrit 34.6(L) 39 - 50 % 11/14/2024 12:46 AM EDT [facility] MCV 90 80 - 100 fL 11/14/2024 12:46 AM EDT [facility] MCH 29.6 27 - 34 pg 11/14/2024 12:46 AM EDT [facility] MCHC 32.9 32 - 36 g/dL 11/14/2024 12:46 AM EDT [facility] RDW 16.3(H) 11.5 - 15 % 11/14/2024 12:46 AM EDT [facility] Platelet Count 305 150 - 450 X10E9/L 11/14/2024 12:46 AM EDT [facility] MPV 7.6 7 - 12 fL 11/14/2024 12:46 AM EDT [facility] Neutrophils Relative 70.2 % 11/14/2024 12:46 AM EDT [facility] Lymphocytes Relative 16.3 % 11/14/2024 12:46 AM EDT [facility] Monocytes Relative 12.7 % 11/14/2024 12:46 AM EDT [facility] Eosinophils Relative 0.2 % 11/14/2024 12:46 AM EDT [facility] Basophils Relative 0.6 % 11/14/2024 12:46 AM EDT [facility] Neutrophils Absolute (A) 6.4 1.5 - 6.6 10*3/uL 11/14/2024 12:46 AM EDT [facility] Lymphocytes Absolute 1.5 1.0 - 3.5 10*3/uL 11/14/2024 12:46 AM EDT [facility] Monocytes Absolute 1.1(H) 0.0 - 0.9 10*3/uL 11/14/2024 12:46 AM EDT [facility] Eosinophils Absolute 0.0 0.0 - 0.4 10*3/uL 11/14/2024 12:46 AM EDT [facility] Basophils Absolute 0.1 0.0 - 0.2 10*3/uL 11/14/2024 12:46 AM EDT [facility] Differential Type AUTOMATED DIFFERENTIAL 11/14/2024 12:46 AM EDT [facility] Blood Venous blood / Unknown 11/14/2024 12:35 AM EDT 11/14/2024 12:36 AM EDT Winston Dent MD LAB BLOOD ORDERABLES Final R esult [address] [place] [address], [place] * Magnesium (11/14/2024 12:35 AM EDT) MAGNESIUM 2.1 1.8 - 2.6 mg/dL 11/14/2024 12:55 AM EDT [facility] Blood Venous blood / Unknown 11/14/2024 12:35 AM EDT 11/14/2024 12:36 AM EDT Winston Dent MD LAB BLOOD ORDERABLES Final R esult [address] [place] [address], [place] * Lipase (11/14/2024 12:35 AM EDT) LIPASE 36 17 - 40 U/L 11/14/2024 12:53 AM EDT [facility] Blood Venous blood / Unknown 11/14/2024 12:35 AM EDT 11/14/2024 12:36 AM EDT us Winston Dent MD LAB BLOOD ORDERABLES Final R esult [facility] [address] [place] [address], [place] * (ABNORMAL) Comprehensive metabolic panel (11/14/2024 12:35 AM EDT) SODIUM 134 134 - 146 mmol/L 11/14/2024 12:55 AM EDT [facility] POTASSIUM 4.4 3.5 - 5.0 mmol/L 11/14/2024 12:55 AM EDT [facility] CHLORIDE 100 98 - 109 mmol/L 11/14/2024 12:55 AM EDT [facility] CARBON DIOXIDE 24 22 - 32 mmol/L 11/14/2024 12:55 AM EDT [facility] ANION GAP 10 5 - 15 mmol/L 11/14/2024 12:55 AM EDT [facility] BLOOD UREA NITROGEN 23 5 - 27 mg/dL 11/14/2024 12:55 AM EDT [facility] CREATININE 1.49(H) 0.70 - 1.20 mg/dL 11/14/2024 12:55 AM EDT [facility] Comment:METHOD TRACEABLE TO IDMS STANDARD GLUCOSE 246(H) 65 - 99 mg/dL 11/14/2024 12:55 AM EDT [facility] CALCIUM 8.8 8.5 - 10.5 mg/dL 11/14/2024 12:55 AM EDT [facility] TOTAL PROTEIN 7.2 6.0 - 8.0 g/dL 11/14/2024 12:55 AM EDT [facility] ALBUMIN 3.9 3.2 - 5.3 g/dL 11/14/2024 12:55 AM EDT [facility] ALKALINE PHOSPHATASE 43 39 - 130 U/L 11/14/2024 12:55 AM EDT [facility] AST 19 <=41 U/L 11/14/2024 12:55 AM EDT [facility] ALT 11 <=40 U/L 11/14/2024 12:55 AM EDT [facility] BILIRUBIN,TOTAL 0.5 0.3 - 1.2 mg/dL 11/14/2024 12:55 AM EDT [facility] EGFR Non-Race Dependent 50(L) >=60 ml/min/1.7 3sq.m 11/14/2024 12:55 AM EDT [facility] Comment: eGFR not reported due to non-numeric value for Creatinine. Reported eGFR is based on the CKD-EPI 2020 equation that does not use a race coefficient. Blood Venous blood / Unknown 11/14/2024 12:35 AM EDT 11/14/2024 12:36 AM EDT Winston Dent MD LAB BLOOD ORDERABLES Final R esult Performing Organization Address City/[facility]/ZIP Co de Phone Number [address] [address], [place] * Light Blue Top (11/14/2024 12:34 AM EDT) Extra Tube Auto Resulted 11/14/2024 2:02 AM EDT [facility] Blood Venous blood / Unknown 11/14/2024 12:34 AM EDT 11/14/2024 12:36 AM EDT Winston Dent MD LAB BLOOD ORDERABLES Final R esult [address] [address], [place] * D-Dimer (11/14/2024 12:34 AM EDT) D DIMER <150 1 - 255 ug/mL 11/14/2024 2:03 AM EDT [facility] Comment:Results <255 ng/mL D DU: The presensence of a VTE can safely be excluded with a negative D-Dimer result and Wells score. A negative result doesn't exclude the possibility of DIC. The test should be repeated along with other diagnostic tests if the patient's symptoms persist or worsen. Blood Venous blood / Unknown 11/14/2024 12:34 AM EDT 11/14/2024 12:36 AM EDT us Winston Dent MD LAB BLOOD ORDERABLES Final R esult Performing Organization Address [facility] Co de Phone Number [address] [place] [address], [place] * (ABNORMAL) Bedside Glucose *Place/Obtain serum glucose if >500 per glucometer. (11/14/2024 12:22AM EDT) Bedside Glucose (POC) 249(H) 65 - 99 mg/dL 11/14/2024 12:24 AM EDT [facility] arterial/capilla ry 11/14/2024 12:22 AM EDT 11/14/2024 12:24 AM EDT us Winston Dent MD POINT OF CARE TEST ORDERABLE S Final Result Performing Organization Address [facility] Co de Phone Number [address] [place] [address], [place] * ECG 12 lead (11/14/2024 12:20 AM EDT) 11/14/2024 12:2 0 AM EDT us Winston Dent MD ECG ORDERABLES Final Result Performing Organization Address City/[facility] Co de Phone Number [email or web address] * Nuc stress Lexiscan (11/04/2024 10:29 AM EDT) Target HR 150 bpm [facility] HR 64 bpm [facility] Stress peak HR 74 bpm [facility] Baseline Systolic BP 134 mmHg [facility] Diastolic BP 66 mmHg [facility] Stress peak systolic BP 103 mmHg [facility] Diastolic BP 49 mmHg [facility] HR 72 bpm [facility] Stress recovery systolic BP 109 mmHg [facility] Diastolic BP 51 mmHg [facility] Percent HR 49 % [facility] Nuc Stress EF 70 % [facility] End diastolic volume (mL) 113 mL [facility] End systolic volume (mL) 34 mL [facility] TID 0.97 [facility] Anatomical Region Laterality Modality Chest N/A Nuclear Medicine , Nuclear Medicine Narrative 11/04/2024 11:07 AM EDT The Lexiscan ECG was negative for ischemia. Stress Function Comments: Left ventricular function post-stress is normal. Stress ejection fraction is 70%. Normal wall motion. Perfusion Comments: Left ventricular perfusion is normal. Based on the perfusion study data, risk of cardiovascular events is low risk. Stress Findings A Lexiscan protocol was performed. A pharmacological stress test was performed using regadenoson. The patient reported dyspnea and flushing during the stress test. Symptoms began during stress and ended during recovery. ECG Baseline ECG indicates sinus rhythm and IVCD. There were no arrhythmias during stress. The stress ECG was negative. Isotope Administration The isotope used for nuclear imaging was technetium sestamibi. Imaging was performed at rest after an administration on 11/04/2024 at 08:05 EDT of 10.3 mCi. Imaging was performed at peak stress after an administration on 11/04/2024 at 09:10 EDT of 30.7 mCi. Nuclear Study Quality A Lexiscan protocol was performed. Perfusion Comments Left ventricular perfusion is normal. Based on the perfusion study data, risk of cardiovascular events is low risk. Perfusion Defect Conclusion There is no evidence of transient ischemic dilation (TID). TID ratio is 0.97. Stress Function Comments Left ventricular function post-stress is normal. Stress ejection fraction is 70%. The stress end diastolic cavity size is normal. The stress end systolic cavity size is normal. us Vandana Brar PHARMACY SERVICES DIRECTOR-POWER SWITCHBOARD OPERATOR CV STRESS ORDERABLES Fi nal Result * Remote Device Check (11/03/2024 1:27 AM EDT) Anatomical Region Laterality Modality Other 11/03/2024 1:27 AM EDT Yoni Espinoza MD HEALTH MAINTENANCE Final Result * VASCULAR INVASIVE, GENERAL SCRAP WORKER TIB/PER INIT VESSEL LT (CV), GENERAL SCRAP WORKER TIB/PER INIT VESSEL RT (CV) (09/27/2024 4:18 PM EDT) Anatomical Region Laterality Modality X-Ray Angiograph y Narrative 09/28/2024 5:54 PM EDT Recommendations: Wound care. Risk factors modification. Dual antiplatelet therapy. Procedure Details Patient Name: Tomas Frausto Medical Record: [id number] Date of Operation: 09/27/2024 Preoperative Diagnosis: Left lower extremity critical limb threatening ischemia Postoperative Diagnosis: Same Procedure: 1. Ultrasound-guided access acces of the right common femoral artery with images saved to the PACS 2. Placement of catheter in the abdominal aorta aortogram and pelvic angiogram 3. Selective left lower extremity angiogram 4. Balloon angioplasty of high-grade tandem stenotic lesions of the anterior tibial artery using 3 mm balloon 5. Balloon angioplasty of high-grade stenotic tandem lesions in the tibioperoneal trunk and peroneal arteries using 3 mm balloon Surgeon: Gretta Whitlock MD Cart Attendant: None Anesthesia: Conscious sedation then under my supervision Estimated Blood Loss: Minimal Complications: None; patient tolerated the procedure well. Implants: None Specimens: None Disposition: PACU - hemodynamically stable. Condition: stable Findings: Extensive tibial disease with 2 runoff through the AT in the peroneal artery both her disease with high-grade tandem stenotic lesions worse in the AT. 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 Operative Details: The patient was taken back to the operating room cathode ray tube assembler placed in the supine position appropriate cardiopulmonary monitors were set. Conscious sedation was induced. Both groins were prepped and draped in the usual sterile surgical fashion. After time-out and safety pause under ultrasound guidance the right common femoral artery was accessed using Seldinger maneuver. Five Indonesian sheath was placed. Omni flush catheter was placed in the abdominal aorta in the infrarenal segment. Aortogram and pelvic angiogram were done. There was no evidence of aortoiliac occlusive disease. Selective left lower extremity angiogram showed diffuse tibial occlusive disease. We placed the 5 x 90 John sheath. Initially selected the anterior tibial artery placed a wire all the way down in the DP. 3 mm balloon was used to treat the anterior tibial artery with excellent result. We then paid our attention to the TP trunk and the peroneal artery. 3 mm balloon also showed excellent result. Now we have excellent result 0 and blood flow to the foot. Heparin was given early in the case about 8000. This was reversed Mynx closure was used to close the access site. Patient tolerated the procedure very well and sent to the PACU in good condition. Gretta Whitlock MD, RONNIE, RPVI, FSVS, FACS JOBST Vascular Surgery Gretta Whitlock MD CV CARDIAC CATH ORDERABLES Ed ited Result - Final * (ABNORMAL) Portable Glucose Istat (09/27/2024 12:34 PM EDT) Portable glucose 199(H) 65 - 99 mg/dL 09/27/2024 3:06 PM EDT SUNQUEST Blood / Unknown 09/27/2024 1 2:34 PM EDT 09/27/2024 12:37 PM EDT Gretta Whitlock MD POINT OF CARE TEST ORDERABLES Final Result SUNQUEST * POCT urea (BUN) (09/27/2024 12:34 PM EDT) Portable BUN 19 6 - 27 mg/dL 09/27/2024 3:06 PM EDT SUNQUEST Blood / Unknown 09/27/2024 1 2:34 PM EDT 09/27/2024 12:37 PM EDT Gretta Whitlock MD POINT OF CARE TEST ORDERABLES Final Result Performing Organization Address City/[facility] Co de Phone Number SUNQUEST * SPIROMETRY PRE/POST BRONCHODILATOR AND DLCO AND PLETHYSMOGRAPHY (09/23/2024 11:49 AM EDT) Narrative MANUALLY TRANSCRIBED RESULTS - 10/15/2024 8:43 AM EDT Patient gave good effort and data was reproducible FEV1/FVC is 85 with FEV1 90% predicted or 2.58 L in forced vital capacity 72% predicted or 3.03 L. there is no significant post bronchodilator response Total lung capacity is 81% predicted or 5.11 L with vital capacity mildly reduced at 73% predicted or 3.1 L. Residual volume is 81% predicted Diffusion capacity is normal at 97 Impression: Findings are consistent with mild restrictive impairment which may be related to body habitus. Note this is associated with normal diffusion capacity.. Please correlate with clinical and radiographic data us Vandana Brar PHARMACY SERVICES DIRECTOR-POWER SWITCHBOARD OPERATOR PFT ORDERABLES Final R esult Performing Organization Address City/[facility] Co de Phone Number MANUALLY TRANSCRIBED RESULTS from Last 3 Months Insurance MEDICARE MEDICAID [place] Advance Directives * Full Code (Latest Code Status on File) Date Activated Date Inactivated Comments 08/10/2021 3:58 AM 08/16/2021 6:41 PM * Full Code Date Activated Date Inactivated Comments 12/16/2019 11:02 AM 12/17/2019 5:52 PM * Full Code Date Activated Date Inactivated Comments 11/14/2018 8:21 PM 11/21/2018 9:34 PM * Full Code Date Activated Date Inactivated Comments 11/23/2017 1:57 PM 11/23/2017 5:15 PM Care Teams Commercial Counsel Relationship Specialty Start Date End Date Services, [facility] [address] [place] [place] PCP - General Family Medicine 04/16/24
--- OUTSIDE RECORDS SUMMARY | 2024-12-18 13:55 | XMS_ITS | Encounter Summary ---
Author Organization [facility] Formerly [facility] tem Address [id number] [address] [place] [address] Care Team Providers Care Chip Frier Name Role Phone Services, [facility] Primary Care Provider Encounter Details Date Type Department Care Team (Late st Contact Info) Description 11/02/2021 Telephone [facility] [address] [place] [phone] Stacy Saldana, SANTY Social History Tobacco Use [...] was confirmed or suspected to have Coronavirus/COVID-19? Unable to assess 11/05/2021 9:52 AM EDT documented as of this encounter Plan of Treatment Not on file documented as of this encounter Goals Goal Patient Goal Type Associated Problems Recent Progress Patient-Stated? Author safe transition from hospital to home General Yes Laurie Villar, COMMERCIAL LITIGATION ASSOCIATE-DEMAND INSPECTOR Note: Evaluation of progress towards goal: discharge home with zoroastrianism/friends support. <enter goal here> General Yes Sunita Tomlinson, MOBILE HOME SET UP PERSON Note: Evaluation of progress towards goal: plan home self care SNF General Yes Cathryn Kapadia, MOBILE HOME SET UP PERSON Note: Evaluation of progress towards goal: Patient likely will discharge to a SNF documented as of this encounter Visit Diagnoses Not on filedocumented in this encounter Care Teams Chip Frier Relationship Specialty Start Date End Date [facility], [facility] [address] [place], [place] PCP - General Family Medicine 04/16/24 documented as of this encounter
--- OUTSIDE RECORDS SUMMARY | 2024-12-18 13:55 | XMS_ITS | Encounter Summary ---
Author Organization [facility] Address [id number] [address] [place] [address] Care Team Providers Care Supervisor Throwing Department Name Role Phone Services, [facility] Primary Care Provider Encounter Details Date Type Department Care Team (Late st Contact Info) Description 11/12/2021 Telephone [facility] [address] [place] [address] Di London CNA Social History Tobacco Use Types Packs/Day [...] suspected to have Coronavirus/COVID-19? Unable to assess 11/12/2021 1:38 PM EDT documented as of this encounter Plan of Treatment Not on file documented as of this encounter Goals Goal Patient Goal Type Associated Problems Recent Progress Patient-Stated? Author safe transition from hospital to home General Yes Laurie Villar, HEARTH FEEDER-SERVICE WRITER Note: Evaluation of progress towards goal: discharge home with catholic/friends support. <enter goal here> General Yes Sunita Tomlinson, ALANIS Note: Evaluation of progress towards goal: plan home self care SNF General Yes Cathryn Kapadia, ELECTRONIC SYSTEMS TECHNICIAN Note: Evaluation of progress towards goal: Patient likely will discharge to a SNF documented as of this encounter Visit Diagnoses Not on filedocumented in this encounter Care Teams Supervisor Throwing Department Relationship Specialty Start Date End Date [facility], [facility] [address] [place], [place] PCP - General Family Medicine 04/16/24 documented as of this encounter
--- OUTSIDE RECORDS SUMMARY | 2024-12-18 13:55 | XMS_ITS | Encounter Summary ---
Author Organization [facility] tem Address [id number] [address] [place] [address] Care Team Providers Care Trench Digger Helper Name Role Phone Services, Primary Care Provider Encounter Details Date Type Department Care Team (Late st Contact Info) Description 09/04/2024 Orders Only [facility] [address] [place] [phone] Vandana Brar, TELEVISION ANTENNA INSTALLER-STUDENT UNION CONSULTANT [address] [place] [address] Social History Tobacco Use Types Packs/Day Years Used Date Smoking Tobacco: Former Cigarettes Smokeless Tobacco: Never Alcohol Use Standard Drinks/Week Comments No 0 (1 standard drink = 0.6 oz pur e alcohol) Childcare Answer Date Recorded Childcare Unknown 12/03/2018 Employment Answer Date Recorded Employment Unknown 12/03/2018 Hunger Screening Answer Date Recorded Within the past 12 months we worried whether our food would run out before we got money to buy more. Never True 09/04/2024 Within the past 12 months th e food we bought just didn't last and we didn't have money to get more. Never True 09/04/2024 Purpose - Life Answer Date Recorded Purpose and direction in life Unknown Sex and Gender Information Value Date Recorded Sex Assigned at Not on file Legal Sex Male 11:39 AM EDT Gender Identity Not on file Sexual Orientation Not on file documented as of this encounter Plan of Treatment Not on file documented as of this encounter Goals Goal Patient Goal Type Associated Problems Recent Progress Patient-Stated? Author safe transition from hospital to home General Yes Laurie Villar, TELEVISION ANTENNA INSTALLER-STUDENT UNION CONSULTANT Note: Evaluation of progress towards goal: discharge home with jehovah's witness/friends support. <enter goal here> General Yes Sunita Tomlinson LSW Note: Evaluation of progress towards goal: plan home self care SNF General Yes Cathryn Kapadia LSW Note: Evaluation of progress towards goal: Patient likely will discharge to a SNF documented as of this encounter Visit Diagnoses Not on filedocumented in this encounter Care Teams Trench Digger Helper Relationship Specialty Start Date End Date [facility], [address] [place] PCP - General Family Medicine 04/16/24 documented as of this encounter
--- OUTSIDE RECORDS SUMMARY | 2024-12-18 13:55 | XMS_ITS | Encounter Summary ---
Author Organization [facility] Address [id number] [address] [place] [address] Care Team Providers Care Dynamo Repairer Name Role Phone Services, [facility] Primary Care Provider Encounter Details Date Type Department Care Team (Late st Contact Info) Description 09/04/2024 Orders Only [facility] [address] [place] [phone] Chula Santiago CMA AICD present, double chamber Social History Tobacco Use Types Packs/Day Years [...] to home General Yes Villar, Laurie L, WARM IN-SAFE DEPOSIT CLERK Note: Evaluation of progress towards goal: discharge home with amish/friends support. <enter goal here> General Yes Sunita Tomlinson, ALANIS Note: Evaluation of progress towards goal: plan home self care SNF General Yes Cathryn Kapadia, TRANSITION RN Note: Evaluation of progress towards goal: Patient likely will discharge to a SNF documented as of this encounter Procedures Procedure Name Priority Date/Time Associated Diagnosis Comments DEVICE INTERROGATION Routine 09/04/2024 AICD present, double chamber documented in this encounter Results * Device Interrogation (09/04/2024) Anatomical Region Laterality Modality Other 09/04/2024 Vandana Brar APRN-SAFE DEPOSIT CLERK CV CARDIAC SERVICES ORD ERABLES Final Result documented in this encounter Visit Diagnoses Diagnosis AICD present, double chamber documented in this encounter Care Teams Dynamo Repairer Relationship Specialty Start Date End Date [facility], [facility] [address] [address] [place] [place] PCP - General Family Medicine 04/16/24 documented as of this encounter
--- OUTSIDE RECORDS SUMMARY | 2024-12-18 13:55 | XMS_ITS | Encounter Summary ---
Author [facility] Address [id number] [address] [place] [address] Care Team Providers Care Farmworker Rice Name Role Phone Services, [facility] Primary Care Provider Encounter Details Date Type Department Care Team (Late st Contact Info) Description 09/21/2021 Telephone [facility] [address] [place] [phone] Stacy Saldana, SANTY Social History Tobacco Use [...] suspected to have Coronavirus/COVID-19? No / Unsure 09/24/2021 10:05 AM EDT documented as of this encounter Plan of Treatment Not on file documented as of this encounter Goals Goal Patient Goal Type Associated Problems Recent Progress Patient-Stated? Author safe transition from hospital to home General Yes Villar, Laurie L, TRAINING AND DEVELOPMENT OFFICER-WASTE WATER PLANT OPERATOR Note: Evaluation of progress towards goal: discharge home with taoism/friends support. <enter goal here> General Yes Sunita Tomlinson, TILE SETTER SUPERVISOR Note: Evaluation of progress towards goal: plan home self care SNF General Yes Cathryn Kapadia, TILE SETTER SUPERVISOR Note: Evaluation of progress towards goal: Patient likely will discharge to a SNF documented as of this encounter Visit Diagnoses Not on filedocumented in this encounter Care Teams Farmworker Rice Relationship Specialty Start Date End Date [facility], [facility] [address] [place], [place] PCP - General Family Medicine 04/16/24 documented as of this encounter
--- OUTSIDE RECORDS SUMMARY | 2024-12-18 13:55 | XMS_ITS | Encounter Summary ---
Author Organization [facility] tem Address [id number] [address] [place] [address] Care Team Providers Care Channel Rebuilder Name Role Phone Services, [facility] Primary Care Provider Encounter Details Date Type Department Care Team (Late st Contact Info) Description 08/31/2021 Orders Only [facility] [address] [facility] [address] [place] [phone] External, Scanning Provider Social History Tobacco Use Types Packs/Day Years [...] have Coronavirus / COVID-19? No / Unsure 08/30/2021 7:12 AM EST documented as of this encounter Plan of Treatment Not on file documented as of this encounter Goals Goal Patient Goal Type Associated Problems Recent Progress Patient-Stated? Author safe transition from hospital to home General Yes Laurie Villar, TIRE INSPECTOR-CHEMIST PHARMACEUTICAL Note: Evaluation of progress towards goal: discharge home with congregation/friends support. <enter goal here> General Yes Sunita Tomlinson, SNUFF CONTAINER INSPECTOR Note: Evaluation of progress towards goal: plan home self care SNF General Yes Cathryn Kapadia, SNUFF CONTAINER INSPECTOR Note: Evaluation of progress towards goal: Patient likely will discharge to a SNF documented as of this encounter Procedures Procedure Name Priority Date/Time Associated Diagnosis Comments CBC (NO DIFF) Routine 08/23/2021 C-REACTIVE PROTEIN Routine 08/23/2021 BUN Routine 08/23/2021 CREATININE, SERUM Routine 08/23/2021 documented in this encounter Results * (ABNORMAL) C-reactive protein (08/23/2021) External Crp 27.2(A) <=10.0 MANUALL Y TRANSCRIBED RESULTS us Scanning Provider External LAB BLOOD ORDERABLES Edited Result - Final Performing Organization Address [facility] Co de Phone Number MANUALLY TRANSCRIBED RESULTS * (ABNORMAL) CBC without diff (08/23/2021) External Hematocrit Hct 35.0(A) 42.0 - 54.0 MANUALLY TRANSCRIBED RESULTS External Hemoglobin 11.0(A) 14.0 - 18.0 MANUALLY TRANSCRIBED RESULTS External Mpv 7.3 6.5 - 12.0 MANUAL LY TRANSCRIBED RESULTS External Platelet Count 611(A) 150 - 450 MANUALLY TRANSCRIBED RESULTS External Rbc Count 3.61(A) 4.00 - 6.60 MANUALLY TRANSCRIBED RESULTS External Rdw 13.6 11.0 - 16.0 MANUALLY TRANSCRIBED RESULTS External Wbc Count 7.4 4.5 - 10.8 MANUALLY TRANSCRIBED RESULTS us Scanning Provider External LAB BLOOD ORDERABLES Edited Result - Final MANUALLY TRANSCRIBED RESULTS * Creatinine includes GFR, serum (08/23/2021) External Creatinine 1.0 0.6 - 1.2 MANUALLY TRANSCRIBED RESULTS External Gfr Amer 90 >=60 MANUALLY TRANSCRIBED RESULTS External Gfr Non Amer 75 >=60 MANUALLY TRANSCRIBED RESULTS us Scanning Provider External LAB BLOOD ORDERABLES Edited Result - Final MANUALLY TRANSCRIBED RESULTS * BUN (08/23/2021) External Blood Urea Nitrogen Bun 11 7 - 25 MANUALLY TRANSCRIBED RESULTS us Scanning Provider External LAB BLOOD ORDERABLES Edited Result - Final MANUALLY TRANSCRIBED RESULTS documented in this encounter Visit Diagnoses Not on filedocumented in this encounter Care Teams Channel Rebuilder Relationship Specialty Start Date End Date Services, [facility] [address] [place], [place] PCP - General Family Medicine 04/16/24 documented as of this encounter
--- OUTSIDE RECORDS SUMMARY | 2024-12-18 13:55 | XMS_ITS | Clinical Summary ---
Author Organization [facility] Healthcare Address [address] [place] [address] Care Team Providers Care Peanut Blancher Name Role Phone Bradley Bejarano Primary Care Provider [phone] Allergies No known active allergies Medications Xarelto 20 MG tablet Take 20 mg by mouth Daily 02/21/2024 Active tamsulosin (Flomax) 0.4 MG 24 hr capsule TAKE 2 CAPSULES BY MOUTH 30 MINS AFTER MEAL DAILY 90 Active metFORMIN XR (Glucophage-XR) 500 MG 24 hr tablet Take 1,000 mg by mouth in the morning and 1,000 mg before bedtime. Active Jardiance 25 MG 1 (one) time each day at the same time Active atorvastatin (Lipitor) 20 MG tablet Take 20 mg by mouth in the morning. 09/02/2024 Active aspirin 81 MG EC tablet Take 81 mg by mouth in the morning. Active metoprolol succinate XL (Toprol-XL) 100 MG 24 hr tablet Take 100 mg by mouth in the morning. 07/22/2024 Active magnesium oxide (Mag-Ox) 400 MG tablet 09/30/2024 Active sertraline (Zoloft) 50 MG tablet Take 50 mg by mouth in the morning. Active amiodarone (Pacerone) 200 MG tablet Take 200 mg by mouth in the morning. 09/04/2024 Active D3-1000 25 MCG (1000 UT) capsule Take 25 mcg by mouth Daily 09/09/2024 Active cephalexin (Keflex) 500 MG capsule Take 500 mg by mouth in the morning and 500 mg at noon and 500 mg in the evening and 500 mg before bedtime. Active Active Problems No known active problems Encounters Date Type Department Care Team Description 10/04/2024 11:30 AM EDT Office Visit [facility] [address] [place] [address] Robert Guzman DPM Paronychia of great toe of right foot (Primary Dx); Angiopathy, diabetic (HCC); Diabetic polyneuropathy associated with type 2 diabetes mellitus (HCC); Status post partial amputation of left foot (HCC) 10/04/2024 Bamboo flowsheet [facility] [address] [place] [address] Robert Guzman DPM 10/04/2024 Travel 10/03/2024 Travel 10/02/2024 1:00 PM EDT Office Visit [facility] [address] [place] [address] Emery Beard PA Acute pain of right knee (Primary Dx); Arthritis of right knee; Effusion of right knee 10/02/2024 Bamboo flowsheet [facility] [address] [place] [address] Emery Beard PA 10/02/2024 Travel from Last 3 Months Social History Tobacco Use Types Packs/Day Years Used Date Smoking Tobacco: Former Cigarettes 1 15 Smokeless Tobacco: Never Tobacco Cessation:Counseling Given: Not Answered Alcohol Use Standard Drinks/Week Comments Not Currently 0 (1 standard drink = 0.6 oz pur e alcohol) Sex and Gender Information Value Date Recorded Sex Assigned at Not on file Legal Sex Male 6:59 PM EDT Gender Identity Not on file Sexual Orientation Not on file Last Filed Vital Signs Vital Sign Reading Time Taken Comments Blood Pressure 149/91 09/03/2019 12:00 PM EST Pulse - - Temperature 36.5 C (97.7 F) 10/04/2024 11:29 AM EDT Respiratory Rate - - Oxygen Saturation - - Inhaled Oxygen Concentration - - Weight 81.6 kg (180 lb) 10/04/2024 11:29 AM EDT Height 175.3 cm (5' 9 ) 10/04/2024 11:29 AM EDT Body Mass Index 26.58 10/04/2024 11:29 AM EDT Plan of Treatment Upcoming Encounters Date Type Department Care Team (Late st Contact Info) Description 01/09/2025 1:30 PM EDT Procedure Visit [facility] [address] [place] [phone] Robert Guzman DPM [address] [place] [id number] Health Maintenance Due Date Last Done Comments CT Colonography 1955 Colonoscopy 1955 Colorectal Cancer Screening 1955 FIT-DNA 1955 FIT 1955 FOBT 1955 Sigmoidoscopy 1955 Pneumococcal Vaccine: 65+ Ye ars (2 of 2 - PCV) 04/25/2023 04/25/2022 Influenza Vaccine (Season Ended) 2025 04/11/2023, 04/25/2022, 04/19/2021, Additional history exists Procedures Procedure Name Priority Date/Time Associated Diagnosis Comments DC ARTHROCENTESIS ASPIR&/INJ MAJOR JT/BURSA W/O US Routine 10/02/2024 1:35 PM EDT Arthritis of right knee Effusion of right knee from Last 3 Months Results * DC ARTHROCENTESIS ASPIR&/INJ MAJOR JT/BURSA W/O US (10/02/2024 1:35 PM EDT) Narrative Emery Beard PA - 10/02/2024 1:35 PM EDT [place] 10/02/2024 2:10 PM L Inj/Asp: [...] discussed. Consent was given by the patient. us Emery LEON IN CLINIC/BEDSIDE ORDERABLES Final Result from Last 3 Months Insurance MEDICARE MEDICAID [place] Care Teams Peanut Blancher Relationship Specialty Start Date End Date Bradley Bejarano PA [address] [place], [place] [phone] PCP - General Family Medicine 10/02/24
--- OUTSIDE RECORDS SUMMARY | 2024-12-18 13:55 | XMS_ITS | Encounter Summary ---
Author Organization [facility] tem Address [facility] [id number] [address] [place] [address] Care Team Providers Care Digital Media Director Name Role Phone Services, [facility] Primary Care Provider Encounter Details Date Type Department Care Team (Late st Contact Info) Description 06/06/2022 Orders Only [facility] [address] [place] [phone] Mariana Wade, REPORT WRITER-CROSSBAR FRAME WIRER [address] [place], [place] [phone] ICD (implantable cardioverter-defibrill ator) in place Social History Tobacco Use Types Packs/Day Years [...] have Coronavirus / COVID-19? No / Unsure 06/03/2022 9:38 AM EST documented as of this encounter Plan of Treatment Not on file documented as of this encounter Goals Goal Patient Goal Type Associated Problems Recent Progress Patient-Stated? Author safe transition from hospital to home General Yes Laurie Villar, REPORT WRITERINNA Note: Evaluation of progress towards goal: discharge home with mandaeism/friends support. <enter goal here> General Yes Sunita Tomlinson LSW Note: Evaluation of progress towards goal: plan home self care SNF General Yes Cathryn Kapadia LSW Note: Evaluation of progress towards goal: Patient likely will discharge to a SNF documented as of this encounter Procedures Procedure Name Priority Date/Time Associated Diagnosis Comments DEVICE INTERROGATION Routine 06/03/2022 ICD (implantable cardioverter-defibrillator) in place documented in this encounter Results * Device Interrogation (06/03/2022) Anatomical Region Laterality Modality Other Mariana [place] CV CARDIAC SERVICES OR DERABLES Final Result documented in this encounter Visit Diagnoses Diagnosis ICD (implantable cardioverter-defibrillator) in place documented in this encounter Care Teams Digital Media Director Relationship Specialty Start Date End Date [facility], [address] PCP - General Family Medicine 04/16/24 documented as of this encounter
--- OUTSIDE RECORDS SUMMARY | 2024-12-18 13:55 | XMS_ITS | Encounter Summary ---
Author Organization [facility] Address [id number] [address] [place] [address] Care Team Providers Care Storehouse Clerk Name Role Phone Services, [facility] Primary Care Provider Encounter Details Date Type Department Care Team (Late st Contact Info) Description 11/05/2021 Telephone [facility] [address] [place] [address] Di London CNA Social History [...] hospital to home General Yes Laurie Villar, BOATBUILDER WOOD-SURGICAL GARMENT FITTER Note: Evaluation of progress towards goal: discharge home with methodist/friends support. <enter goal here> General Yes Sunita Tomlinson, ALANIS Note: Evaluation of progress towards goal: plan home self care SNF General Yes Cathryn Kapadia, COMMUNITY SUPPORT ASSOCIATE Note: Evaluation of progress towards goal: Patient likely will discharge to a SNF documented as of this encounter Visit Diagnoses Not on filedocumented in this encounter Care Teams Storehouse Clerk Relationship Specialty Start Date End Date [facility], [facility] [address] [place], [place] PCP - General Family Medicine 04/16/24 documented as of this encounter
--- OUTSIDE RECORDS SUMMARY | 2024-12-18 13:55 | XMS_ITS | Encounter Summary ---
Author Organization [facility] Address [id number] [address] [place] [address] Care Team Providers Care Second Time Worker Name Role Phone Services, [facility] Primary Care Provider Reason for Referral * Cardiology (Routine) - Pending Review Specialty Diagnoses / Procedures Referred By Fly chowdhury Referred To Contact Diagnoses Preoperative clearance Coronary artery disease involving [place] coronary artery of [place] heart without angina pectoris Procedures Nuc stress Lexiscan Vandana Brar APRN-CNP [address] [place] [address] Phone: tel: fax: Referral ID Status Reason Start Date Expiration Date V isits Requested Visits Authorized [id number] Pending Review 10/21/2024 10/21/2025 5 5 Encounter Details Date Type Department Care Team (Late st Contact Info) Description 10/21/2024 Orders Only [facility] [address] [place] [address] Vandana Brar APRN-CNP [address] [place] [address] Preoperative clearance (Primary Dx); Coronary artery disease involving [place] coronary artery of [place] heart without angina pectoris Social History Tobacco Use Types Packs/Day Years [...] hospital to home General Yes Laurie Villar, WILDLIFE POLICY PROFESSIONAL-SLOT KEY PERSON Note: Evaluation of progress towards goal: discharge home with restorationist/friends support. <enter goal here> General Yes Sunita Tomlinson LSW Note: Evaluation of progress towards goal: plan home self care SNF General Yes Cathryn Kapadia, ALANIS Note: Evaluation of progress towards goal: Patient likely will discharge to a SNF documented as of this encounter Results * Nuc stress Lexiscan (11/04/2024 10:29 AM [...] stress end systolic cavity size is normal. Vandana Brar WILDLIFE POLICY PROFESSIONAL-SLOT KEY PERSON CV STRESS ORDERABLES Fi nal Result documented in this encounter Visit Diagnoses Diagnosis Preoperative clearance- Primary Unspecified pre-operative examination Coronary artery disease involving [place] coronary artery of [place] heart without angina pectoris Preoperative clearance Unspecified pre-operative examination Coronary artery disease involving [place] coronary artery of [place] heart without angina pectoris documented in this encounter Care Teams Second Time Worker Relationship Specialty Start Date End Date [facility], [facility] [address] [place], [place] PCP - General Family Medicine 04/16/24 documented as of this encounter
--- OUTSIDE RECORDS SUMMARY | 2024-12-18 13:55 | XMS_ITS | Encounter Summary ---
Author Organization [facility] Address [id number] [address] [place] [address] Care Team Providers Care Pct Name Role Phone Services, [facility] Primary Care Provider Encounter Details Date Type Department Care Team (Late st Contact Info) Description 12/07/2021 Orders Only [facility] [address] [place] [phone] Janelle James CMA AICAlexa present, double chamber Social History Tobacco Use [...] suspected to have Coronavirus/COVID-19? No / Unsure 12/07/2021 6:59 AM EDT documented as of this encounter Plan of Treatment Not on file documented as of this encounter Goals Goal Patient Goal Type Associated Problems Recent Progress Patient-Stated? Author safe transition from hospital to home General Yes Laurie Villar, EXECUTIVE ADMIN-LEAD PROGRAMMER Note: Evaluation of progress towards goal: discharge home with christian/friends support. <enter goal here> General Yes Sunita Tomlinson LSW Note: Evaluation of progress towards goal: plan home self care SNF General Yes Cathryn Kapadia, MATERIAL STOCKKEEPER YARD Note: Evaluation of progress towards goal: Patient likely will discharge to a SNF documented as of this encounter Procedures Procedure Name Priority Date/Time Associated Diagnosis Comments DEVICE INTERROGATION Routine 12/07/2021 AICD present, double chamber documented in this encounter Results * Device Interrogation (12/07/2021) Anatomical Region Laterality Modality Other Mariana Wade APRN-LEAD PROGRAMMER CV CARDIAC SERVICES OR DERABLES Final Result documented in this encounter Visit Diagnoses Diagnosis AICD present, double chamber documented in this encounter Care Teams Pct Relationship Specialty Start Date End Date Services, [facility] [address] [place], [place] PCP - General Family Medicine 04/16/24 documented as of this encounter
--- OUTSIDE RECORDS SUMMARY | 2024-12-18 13:55 | XMS_ITS | Encounter Summary ---
Author Organization [facility] Address [id number] [address] [place] [address] Care Team Providers Care Content Developer Name Role Phone Services, [facility] Primary Care Provider Encounter Details Date Type Department Care Team (Late st Contact Info) Description 11/15/2021 Telephone [facility] - W[facility] Care Clinic [address] [place] [phone] Stacy Saldana, SANTY Social History Tobacco Use [...] suspected to have Coronavirus/COVID-19? No / Unsure 11/17/2021 2:46 PM EDT documented as of this encounter Plan of Treatment Not on file documented as of this encounter Goals Goal Patient Goal Type Associated Problems Recent Progress Patient-Stated? Author safe transition from hospital to home General Yes Villar, Laurie L, CAFE WORKER-TRICOT KNITTER Note: Evaluation of progress towards goal: discharge home with bahai/friends support. <enter goal here> General Yes Sunita Tomlinson, BUSINESS ANALYST Note: Evaluation of progress towards goal: plan home self care SNF General Yes Cathryn Kapadia, BUSINESS ANALYST Note: Evaluation of progress towards goal: Patient likely will discharge to a SNF documented as of this encounter Visit Diagnoses Not on filedocumented in this encounter Care Teams Content Developer Relationship Specialty Start Date End Date [facility], [facility] [address] [place], [place] PCP - General Family Medicine 04/16/24 documented as of this encounter
--- OUTSIDE RECORDS SUMMARY | 2024-12-18 13:55 | XMS_ITS ---
Author Organization [facility] Care Team Providers Care Correctional Treatment Specialist Name Role Phone Russell Quezada Unavailable Unavailable Marisela Wilson Unavailable Unavailable Kat Akhtar Unavailable Unavailable Allergies and adverse reactions No Known Allergies Care Team Name Role Address Phone Organization Dates Russell Quezada [facility] [address] [address], [place], [address], [facility] (Office): : [facility] 08/16/2021 - 07/15/2022 Marisela Wilson [address] [address], [place], [address], [place] (Office): : [facility] 08/16/2021 - 07/15/2022 Kat Akhtar [address] [place] [address], [place], [address], [facility] (Office): : : [facility] 08/16/2021 - 07/15/2022 Immunizations Immunization Status Vaccine Details Vaccine Code CodeSystem Date Notes TB 2 Step Mantoux Skin Test completed tuberculin skin test; unspecified formulation Step 2 of Multi-step with next step required 98 CVX created date: 12/06/2021 consent date: 12/06/2021 administere d date: 08/24/2021 TB 2 Step Mantoux Skin Test completed tuberculin skin test; unspecified formulation Step 1 of Multi-step with next step required 98 CVX created date: 12/06/2021 consent date: 12/06/2021 administere d date: 08/17/2021 Pneumovax completed pneumococcal polysaccharide vaccine, 23 valent 33 CVX created date: 12/06/2021 consent date: 04/26/2022 administere d date: 04/25/2022 Influenza-Afluria 5ML Quad. Vaccine Multi Dose Vial completed Influenza, high-dose, split virus, quadrivalent, injectable, preservative free 197 CVX created date: 12/06/2021 consent date: 04/26/2022 administere d date: 04/25/2022 SARS-COV-2 (COVID-19) completed SARS-COV-2 (COVID-19) vaccine, mRNA, spike protein, LNP, preservative free, 100 mcg/0.5mL dose or 50 mcg/0.25mL dose Mfg: moderna Step 2 of Multi-step with next step required 207 CVX created date: 08/20/2021 consent date: 08/20/2021 administere d date: 10/01/2020 SARS-COV-2 (COVID-19) completed SARS-COV-2 (COVID-19) vaccine, mRNA, spike protein, LNP, preservative free, 100 mcg/0.5mL dose or 50 mcg/0.25mL dose Mfg: moderna Step 1 of Multi-step with next step required 207 CVX created date: 08/20/2021 consent date: 08/20/2021 administere d date: 09/03/2020 Moderna SARS-COV-2 (COVID-19) Booster completed SARS-COV-2 (COVID-19) vaccine, mRNA, spike protein, LNP, preservative free, 100 mcg/0.5mL dose or 50 mcg/0.25mL dose Mfg: moderna 207 CVX created date: 08/20/2021 consent date: 08/20/2021 administere d date: 05/06/2021 Mental Status Section Date Assessment Total Score Description 07/15/2022 BIMS 15 cognitively int act CAM 0 No delirium ind icated PHQ-9 00 04/21/2022 BIMS 12 moderate cognit barber impairment CAM 0 No delirium ind icated PHQ-9 10 moderate depres esther Problems Problem # Description Date of onset Resolved Date Code CodeSystem Concern Status 1 PAROXYSMAL TACHYCARDIA, UNSPECIFIED 04/02/[address] active 2 UNSPECIFIED OPEN WOUND, LEFT FOOT, SUBSEQUENT ENCOUNTER 01/12/[address] active 3 DISRUPTION OF EXTERNAL OPERATION (SURGICAL) WOUND, NOT ELSEWHERE CLASSIFIED, SUBSEQUENT ENCOUNTER 12/30/[address] active 4 DEPRESSION, UNSPECIFIED 12/24/[address] active 5 CELLULITIS OF LEFT LOWER LIMB 09/25/[address] active 6 ELEVATED C-REACTIVE PROTEIN (CRP) 09/25/[address] active 7 OTHER ACUTE OSTEOMYELITIS, LEFT ANKLE AND FOOT 09/25/[address] active 8 STREPTOCOCCAL INFECTION, UNSPECIFIED SITE 09/25/[address] active 9 ANEMIA, UNSPECIFIED 09/03/[address] active 10 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, SUBSEQUENT ENCOUNTER 09/03/[address] active 11 ENCOUNTER FOR ORTHOPEDIC AFTERCARE FOLLOWING SURGICAL AMPUTATION 09/03/[address] active 12 GASTRO-ESOPHAGEAL REFLUX DISEASE WITHOUT ESOPHAGITIS 09/03/[address] active 13 PAIN, UNSPECIFIED 09/03/[address] active 14 ABNORMAL POSTURE 08/17/[address] active 15 ENCOUNTER FOR OTHER ORTHOPEDIC AFTERCARE 08/17/[address] active 16 MUSCLE WEAKNESS (GENERALIZED) 08/17/[address] active 17 OSTEOMYELITIS, UNSPECIFIED 08/17/[address] active 18 OTHER ABNORMALITIES OF GAIT AND MOBILITY 08/17/[address] active 19 ANGINA PECTORIS, UNSPECIFIED 08/16/[address] active 20 ATHEROSCLEROTIC HEART DISEASE OF [place] CORONARY ARTERY WITHOUT ANGINA PECTORIS 08/16/[address] active 21 BENIGN PROSTATIC HYPERPLASIA WITH LOWER URINARY TRACT SYMPTOMS 08/16/[address] active 22 CHEST PAIN, UNSPECIFIED 08/16/[address] active 23 DEGENERATION OF CHAMBER ANGLE, BILATERAL 08/16/[address] active 24 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 08/16/[address] active 25 ESSENTIAL (PRIMARY) HYPERTENSION 08/16/[address] active 26 FUNCTIONAL URINARY INCONTINENCE 08/16/[address] active 27 HYPOMAGNESEMIA 08/16/[address] active 28 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] 08/16/[address] active 29 OTHER OBSTRUCTIVE AND REFLUX UROPATHY 08/16/[address] active 30 PAROXYSMAL ATRIAL FIBRILLATION 08/16/[address] active 31 PRESENCE OF AUTOMATIC (IMPLANTABLE) CARDIAC DEFIBRILLATOR 08/16/[address] active 32 PURE HYPERCHOLESTEROLEM IA, UNSPECIFIED 08/16/[address] active 33 TYPE 2 DIABETES MELLITUS WITH DIABETIC NEPHROPATHY 08/16/[address] active 34 TYPE 2 DIABETES MELLITUS WITH DIABETIC POLYNEUROPATHY 08/16/[address] active 35 TYPE 2 DIABETES MELLITUS WITH OTHER SKIN COMPLICATIONS 08/16/[address] active 36 UNSPECIFIED ATRIAL FIBRILLATION 08/16/[address] active 37 UNSPECIFIED ATRIAL FLUTTER 08/16/[address] active Reason for Referral No Reasons for Referral Entered Social History Social History Observation Description Start Date End Date Code Code System Current Smoking Status Tobacco smoking consumption unknown 670041822 SNOMED CT Sex Assigned At Male 1955 80371-6 [facility] Gender Identity Vital Signs Code Code System Vitals Name Values and Units Timing Information 2339-0 [facility] Blood Sugar Kyfxh=841.0 Units=mg/dL 07/11/2022 74719-7 [facility] Pain Level Value=0.0 07/10/2022 9279-1 [facility] Respiratory Rate Value=18.0 Units=/m in 07/07/2022 8462-4 [facility] Blood Pressure-Diastolic Value=74 Un its=mmHg 07/07/2022 8480-6 [facility] Blood Pressure-Systolic Agqqh=803 Un its=mmHg 07/07/2022 8310-5 [facility] Body Temperature Value=97.2 Units= F 07/07/2022 8867-4 [facility] Heart rate Value=63.0 Units=/min 10/2022 79837-7 [facility] O2 % BldC Oximetry Value=96.0 Units= % 07/07/2022 73741-1 [facility] Weight Tjliq=795.0 Units=Lbs 08/2022 8302-2 [facility] Height Value=69.0 Units=Inches 08/19/2021
--- OUTSIDE RECORDS SUMMARY | 2024-12-18 13:55 | XMS_ITS | Encounter Summary ---
Author Organization [facility] tem Address [facility] [id number] [address] [place] [address] Care Team Providers Care Occupational Therapy Manager Name Role Phone Services, [facility] Primary Care Provider Reason for Visit * Reason Onset Date Comments Appointment 08/26/2024 Encounter Details Date Type Department Care Team (Late st Contact Info) Description 08/26/2024 [facility] [address] [place] [phone] Marisela Yi [facility] Appointment Social History Tobacco Use Types Packs/Day Years [...] got money to buy more. Never True 05/23/2024 Within the past 12 months th e food we bought just didn't last and we didn't have money to get more. Never True 05/23/2024 Purpose - Life Answer Date Recorded Purpose [...] hospital to home General Yes Laurie Villar, RECORD CLERK SALESPERSON-NUCLEAR POWERPLANT MECHANIC Note: Evaluation of progress towards goal: discharge home with sabianist/friends support. <enter goal here> General Yes Sunita Tomlinson, ALANIS Note: Evaluation of progress towards goal: plan home self care SNF General Yes Cathryn Kapadia, PONY RIDE OPERATOR Note: Evaluation of progress towards goal: Patient likely will discharge to a SNF documented as of this encounter Visit Diagnoses Not on filedocumented in this encounter Care Teams Occupational Therapy Manager Relationship Specialty Start Date End Date [facility], [facility] [address] [facility] [place] [place] PCP - General Family Medicine 04/16/24 documented as of this encounter
--- OUTSIDE RECORDS SUMMARY | 2024-12-18 13:55 | XMS_ITS | Encounter Summary ---
Author Organization [facility] [employer] [facility] [employer] Address [id number] [address] [place] [address] Care Team Providers Care Senior Corporate Accountant Name Role Phone Services, [facility] Primary Care Provider Encounter Details Date Type Department Care Team (Late st Contact Info) Description 10/11/[address] [facility] [address] [place] [id number] External, Scanning Provider Social History Tobacco Use [...] suspected to have Coronavirus/COVID-19? Unable to assess 10/13/2021 2:17 PM EDT documented as of this encounter Plan of Treatment Not on file documented as of this encounter Goals Goal Patient Goal Type Associated Problems Recent Progress Patient-Stated? Author safe transition from hospital to home General Yes Laurie Villar, EXPLOSIVE OPERATOR SUPERVISOR-CLAIM TAKER Note: Evaluation of progress towards goal: discharge home with mosque/friends support. <enter goal here> General Yes Sunita Tomlinson LSW Note: Evaluation of progress towards goal: plan home self care SNF General Yes Cathryn Kapadia, SENIOR ANALYTIC CONSULTANT Note: Evaluation of progress towards goal: Patient likely will discharge to a SNF documented as of this encounter Procedures Procedure Name Priority Date/Time Associated Diagnosis Comments CYTOLOGY Routine 09/20/2021 documented in this encounter Results * Cytology (09/20/2021) 09/20/2021 us Scanning Provider External PATHOLOGY/CYTOLOGY OR DERABLES Final Result MANUALLY TRANSCRIBED RESULTS documented in this encounter Visit Diagnoses Not on filedocumented in this encounter Care Teams Senior Corporate Accountant Relationship Specialty Start Date End Date [facility] [address] [place], [place] PCP - General Family Medicine 04/16/24 documented as of this encounter
--- OUTSIDE RECORDS SUMMARY | 2024-12-18 13:55 | XMS_ITS | Encounter Summary ---
Author Organization [facility] Address [facility]-[id number] [address] [place] [address] Care Team Providers Care House Cleaner Name Role Phone Services, [facility] Primary Care Provider Encounter Details Date Type Department Care Team (Late st Contact Info) Description 08/31/2021 Orders Only [facility] [address] [place] [phone] Mariana Wade, SUPERINTENDENT PLANT PROTECTION-AREA FORESTER [address] [place], [place] [id number] AICD present, double chamber- Medtronic Social History Tobacco Use Types Packs/Day Years [...] hospital to home General Yes Laurie Villar, JOSE MIGUEL Note: Evaluation of progress towards goal: discharge home with hindu/friends support. <enter goal here> General Yes Sunita Tomlinson, ALANIS Note: Evaluation of progress towards goal: plan home self care SNF General Yes Cathryn Kapadia LSW Note: Evaluation of progress towards goal: Patient likely will discharge to a SNF documented as of this encounter Procedures Procedure Name Priority Date/Time Associated Diagnosis Comments DEVICE INTERROGATION Routine 08/30/2021 AICD present, double chamber- Medtronic documented in this encounter Results * Device Interrogation (08/30/2021) Anatomical Region Laterality Modality Other Mariana GILLESPIE [facility] OR DERABLES Final Result documented in this encounter Visit Diagnoses Diagnosis AICD present, double chamber- Medtronic documented in this encounter Care Teams House Cleaner Relationship Specialty Start Date End Date Services, [facility] [address] [place], [place] PCP - General Family Medicine 04/16/24 documented as of this encounter
--- OUTSIDE RECORDS SUMMARY | 2024-12-18 13:55 | XMS_ITS | Encounter Summary ---
[facility] Address [facility]-[id number] [address] [place] [address] Care Team Providers Care Sped Teacher Name Role Phone Services, [facility] Primary Care Provider Reason for Visit * Reason Onset Date Comments Med Refill 11/25/2022 Encounter Details Date Type Department Care Team (Late st Contact Info) Description 11/25/2022 Refill [facility] [address] [place] [phone] Zac Sherman, RN Med Refill Social History Tobacco Use Types Packs/Day Years [...] on file documented as of this encounter Miscellaneous Notes * Telephone Encounter - Zac Sherman RN - 11/25/2022 10:47 AM EDT Last OV 06/03/22 Needs updated thyroid and CMP which was pended 06/03/22, will had CBC as on xarelto PFT ordered as well documented in this encounter Plan of Treatment Not on file documented as of this encounter Goals Goal Patient Goal Type Associated Problems Recent Progress Patient-Stated? Author safe transition from hospital to home General Yes Laurie Villar, BAND TACKER-ACTIVITY MANAGER Note: Evaluation of progress towards goal: discharge home with spiritism/friends support. <enter goal here> General Yes Sunita Tomlinson, PROM BURN OFF OPERATOR Note: Evaluation of progress towards goal: plan home self care SNF General Yes Cathryn Kapadia, PROM BURN OFF OPERATOR Note: Evaluation of progress towards goal: Patient likely will discharge to a SNF documented as of this encounter Results * (ABNORMAL) CBC without diff (04/06/2023 12:40 PM EDT) White Blood Cells 8.1 4.0 - 11.0 X10E9/L 04/06/2023 8:17 PM EDT [facility] RBC count 4.49 4.10 - 5.70 X10E12/L 04/06/2023 8:17 PM EDT [facility] Hemoglobin 13.3 13.0 - 17.0 g/dL 04/06/2023 8:17 PM EDT [facility] Hematocrit 41.1 39 - 49 % 04/06/2023 8:17 PM EDT [facility] MCV 92 80 - 100 fL 04/06/2023 8:17 PM EDT [facility] MCH 29.5 27 - 34 pg 04/06/2023 8:17 PM EDT [facility] MCHC 32.3 32 - 36 g/dL 04/06/2023 8:17 PM EDT [facility] RDW 15.6(H) 11.5 - 15.0 % 04/06/2023 8:17 PM EDT [facility] Platelets 375 150 - 450 X10E9/L 04/06/2023 8:17 PM EDT [facility] MPV 7.9 7 - 12 fL 04/06/2023 8:17 PM EDT [facility] Blood / Unknown 04/06/2023 1 2:40 PM EDT 04/06/2023 12:41 PM EDT us Wilmer Conti BAND TACKER-ACTIVITY MANAGER LAB BLOOD ORDERABLES Final Result [facility] [address], [address] [place] [address] documented in this encounter Visit Diagnoses Diagnosis Atrial fibrillation with RVR (CMS-HCC)- Primary documented in this encounter Care Teams Sped Teacher Relationship Specialty Start Date End Date [facility], [facility] [address] [place], [place] PCP - General Family Medicine 04/16/24 documented as of this encounter
--- OUTSIDE RECORDS SUMMARY | 2024-12-18 13:55 | XMS_ITS | Patient Health Record ---
Author Organization Formerly [facility] vices Address [address] [place], [place] [id number] Care Team Providers Care Zipper Slide Attacher Name Role Phone Denys Bejaranoin Primary Care Provider Tatyana Pack Unavailable [phone] Kim Alison Unavailable [phone] Annmarie Lima Unavailable [phone] Sheri Mejia Unavailable Aris, Rocio Unavailable [phone] Allergies No Known Allergies Results Component Value Reference Range Notes POCT A1C Reviewed date:04/23/2024 10:10:14 AM Interpretation: Performing Lab: Notes/Report: POCT A1C Reviewed date:07/23/2024 01:32:43 PM Interpretation: Performing Lab: Notes/Report: Magnesium Reviewed date:07/31/2024 04:38:50 PM Interpretation: Performing Lab: Notes/Report: , [facility] Magnesium 1.9 1.8-2.4 mg/dL Performing Lab: see note ML - [facility] LB Lipid Panel Reviewed date:07/31/2024 04:38:45 PM Interpretation: Performing Lab: Notes/Report: [facility] , Triglycerides 276 <=150 mg/dL Cholesterol 163 <=200 mg/dL HDL Cholesterol 31 40-60 mg/dL > or =60 mg/dl - LOW CARDIOVASCULAR RISK <40 mg/dl - HIGH CARDIOVASCULAR RISK LDL Cholesterol Calculated 77.0 <100 mg/dl OPTIMAL 100-129 mg/dl NEAR OR ABOVE OPTIMAL 130-159 mg/dl BORDERLINE HIGH 160-189 mg/dl HIGH >190 mg/dl VERY HIGH VLDL CHOLESTEROL 55.2 Chol HDL Ratio 5.3 3.3 - 4.4 LOW RISK 4.4 - 7.1 AVERAGE RISK 7.1 - 11.0 MODERATE RISK >11.0 HIGH RISK Performing Lab: see note ML - [facility] LB Comprehensive Metabolic Pane l Reviewed date:07/31/2024 04:38:57 PM Interpretation: Performing Lab: Notes/Report: [facility] , Sodium 139 136-145 mmol/L Potassium 3.9 3.5-5.1 mmol/L Chloride 100 98-107 mmol/L Carbon Dioxide 27.1 21.0-32.0 mmol/L Anion Gap 15.8 Glucose 186 74-106 mg/dL Blood Urea Nitrogen 13.0 7.0-18.0 mg/dL Creatinine 1.71 0.70-1.30 mg/dL Estimated GFR ( Jessica 48 >=60 mL/min/1.73m 2 Estimated GFR (Non- Tati 40 >=60 mL/min/1.73m 2 BUN Creatinine Ratio 7.6 Calcium 9.5 8.5-10.1 mg/dL Bilirubin Total 0.3 0.2-1.0 mg/dL Aspartate Amino Transferase 10 15-37 U/L Alanine Aminotransferase 15 16-63 U/L Alkaline Phosphatase 59 46-116 U/L Total Protein 8.1 6.4-8.2 g/dL Albumin Level 3.8 3.4-5.0 g/dL Globulin 4.3 Albumin Globulin Ratio 0.9 Performing Lab: see note ML - [facility] LB POCT A1C Reviewed date:11/06/2024 01:47:29 PM Interpretation: Performing Lab: Notes/Report: XR foot LT min 3V Reviewed date:03/27/2024 04:25:21 PM Interpretation: Performing Lab: Notes/Report: Source Facility: [facility] [place] [address] [place] [address] XRay Report Signed Patient: RADHA QUIÑONES MR#: [id number] : 1955 Acct:[id number] Age/Sex: 68 / M ADM Date: 03/22/24 Loc: WC Attending Dr: Mariana Solomon D.P.M. Ordering Physician: Mariana Solomon D.P.M. Date of Service: 03/22/24 Procedure(s): XR foot LT min 3V Accession Number(s): [id number] cc: IZZY SAM ; Mariana Solomon D.P.M. [address] [address] Patient Name: RADHA QUIÑONES MRN: [id number] date: 1955 Sex: M Assigned Patient Location: Current Patient Location: Accession/Order Number: [id number] Exam Date: 03/22/2024 10:16 Report Date: 03/25/2024 13:10 At the request of: MARIANA SOLOMON Procedure: XR foot LT min 3V PROCEDURE: XR foot LT min 3V COMPARISON: 01/09/2023 HISTORY: LEFT FOOT PAIN FINDINGS: BONES:Stable amputation of the third fourth and fifth toes along the mid diaphyses of the metatarsals. No new fracture, dislocation or focal lytic/sclerotic lesions SOFT TISSUES:Soft tissue defect plantar forefoot EFFUSION:None visible. OTHER: Vascular calcifications XR/XR foot LT min 3V IMPRESSION: No plain film evidence of osteomyelitis Electronically authenticated by: LUCAS VARNER Date: 03/25/2024 13:10 Dictated By: Lucas Varner M.D. Signed By: 03/25/24 1313 DD/ 1310 TD/TT: Print Line Feeder: ANKIT Pace Reviewed date:05/09/2024 12:13:11 PM Interpretation: Performing Lab: Notes/Report: PERFORMED AT [address] [place] [address] not use a race coefficient. CKD-EPI 2020 equation that does Reported eGFR is based on the SODIUM 135 134-146 mmol/L POTASSIUM 4.5 3.5-5.0 mmol/L CHLORIDE 99 98-109 mmol/L CARBON DIOXIDE 26 22-32 mmol/L ANION GAP 10 5-15 mmol/L BLOOD UREA NITROGEN 24 5-27 mg/dL CREATININE 1.27 0.70-1.20 mg/dL METHOD TRACE ABLE TO IDMS STANDARD GLUCOSE 177 65-99 mg/dL CALCIUM 9.3 8.5-10.5 mg/dL TOTAL PROTEIN 7.6 6.0-8.0 g/dL ALBUMIN 4.2 3.2-5.3 g/dL ALKALINE PHOSPHATASE 46 39-130 U/L AST 16 0-41 U/L ALT 16 0-40 U/L BILIRUBIN,TOTAL 0.5 0.3-1.2 mg/dL eGFR (CKD-EPI) NON-RACE DEPENDENT 61 >59 ml/min/1.73sq.m LIPID PROFILE Reviewed date:05/10/2024 08:04:36 AM Interpretation: Performing Lab: Notes/Report: CHOLESTEROL 137 150-200 mg/dL TRIGLYCERIDE 275 27-150 mg/dL HDL CHOLESTEROL 32 >39 mg/dL HDL <40 mg/dL - High Risk HDL > or = 40mg/dL- Desirable HDL >60 mg/dL - Negative Risk VERY LOW LIPOPROTEIN 55 0-30 mg/dL LDL (CALC) 50 <130 mg/dL LDL <100 mg/dL - Desirable LDL >160 mg/dL - High Risk CHOLESTEROL:HDL 4.3 1.0-5.0 PERFORMED AT [facility] [address],[place] [address] TSH WITH REFLEX FT4 Reviewed date:05/09/2024 12:13:05 PM Interpretation: Performing Lab: Notes/Report: TSH 4.67 0.49-4.67 uIU/mL PERFORMED A T [address] [place] [address] Reason For Referral Reason neck pain and spasm Diagnosis 1 Lumbar paraspinal mu scle spasm (M62.830) Diagnosis 2 Neck pain (M54.2) Referral Organization John Referring Provider First Name Tatyana Referring Provider Last Name Ramone Referring Provider Speciality Family Pra inga Referred Provider [facility] Referred Provider Specialty Pain Managem ent General Notes Destinee Leonard 01/08 08:35:14 AM >{{TOFIRSTNAME}} This is [facility] following up on an outstanding referral that was ordered by your provider. Please call our office at , so we can _update our records. Referral Priority Routine Reason Worsening GFR Diagnosis 1 Chronic kidney disea se, stage 3 (N18.30) Referral Organization Main Referring Provider First Name Bradley Referring Provider Last Name Carlee Referring Provider Speciality Physician End Lathe Operator Referred Provider [facility] Referred Provider Specialty Nephrology General Notes Marisela Beard 08/03 11:28:13 AM >called patient and his authorized contact and gave the phone number and address for [facility]. patient authorized contact states he will get patient scheduled for appt ., Justina Hui 08/20/2024 11:32:40 AM >Nilsa is scheduled for 12/23/2024 @ 1 Pm. If provider feels that he needs to be seen sooner please call and Stevenson will see what he can do. Referral Priority Routine Referral Appointment Date 12/23/2024 Reason osteoarthritis of kn ees Diagnosis 1 Primary osteoarthrit is of both knees (M17.0) Referral Organization Main Referring Provider First Name Bradley Referring Provider Last Name Carlee Referring Provider Speciality Physician End Lathe Operator Referred Provider [facility] Referred Provider Specialty Orthopedics General Notes Marisela Beard 08/2024 01:27:46 PM >{ {TOFIRSTNAME}} This is [facility] following up on an outstanding referral that was ordered by your provider. Please call our office at , so we can _update our records., Destinee Leonard 10/08/2024 01:37:16 PM >no response with appt date, closing per protocol Referral Priority Routine Medications Medication SIG (Take, Route, Frequency, Duration) Notes Start Date End Date Status traMADol HCl 50 MG 1 tablet as needed O rally Once a day Active Acidophilus Probiotic 100 MG TAKE 1 CAPSULE BY MOUTH EVERY DAY for 30 Active Ozempic (0.25 or 0.5 MG/DOSE) 2 MG/3ML INJECT 0.5 MG SUBCUTANEOUSLY WEEKLY for 28 Active Tamsulosin HCl 0.4 MG TAKE 2 CAPSULES BY MOUTH 30 MINS AFTER MEAL DAILY for 90 Active Atorvastatin Calcium 20 MG 1 tablet Orally Once a day for 90 days Active Sertraline HCl 50 MG TAKE 1 TABLET BY [facility] EVERY DAY for 90 Active Lac-Hydrin 12 % 1 application Reinforcing Bar Setter ally Twice a day 11/02/2022 Active Pantoprazole Sodium 40 MG TAKE 1 TABLET BY MOUTH EVERY DAY FOR 90 DAYS for 90 Active Incontinence Brief Large - 1 brief for 90 days 09/26/2022 Active Xarelto 20 MG TAKE 1 TABLET BY YARELI TH EVERY DAY FOR 30 DAYS for 30 Active Metoprolol Succinate ER 100 MG TAKE 1 TABLET BY MOUTH EVERY DAY for 90 Active Amiodarone HCl 200 MG 1 tablet Orally On ce a day for 30 days 07/22/2022 Active Insulin Glargine 100 UNIT/ML as directed Subcutaneous 36 units evening Active Basaglar KwikPen 100 UNIT/ML 36 units daily Subcutaneous daily for 30 days Active Vitamin D3 125 MCG (5000 UT) TAKE 1 CAPSULE BY MOUTH EVERY DAY FOR 90 DAYS for 90 Active Tylenol 8 Hour Arthritis Pain 650 MG 2 tablets as needed Orally every 8 hrs 05/24/2023 Active metFORMIN HCl ER 500 MG TAKE 2 TABLETS B Y MOUTH TWICE A DAY Orally twice a day for 90 days Active Vitamin D3 25 MCG (1000 UT) TAKE 1 CAPSULE BY MOUTH EVERY DAY Orally Once a day for 90 days Active Aspirin Low Dose 81 MG TAKE 1 TABLET BY MOUTH EVERY DAY for 90 Active Jardiance 25 MG 1 tablet Orally Once a day for 90 days Active Magnesium Oxide -Mg Supplement 400 (240 Mg) MG TAKE 1 TABLET BY MOUTH EVERY DAY for 90 Active Immunizations Vaccine Route Administration Date Status Comme nts Influenza (split), 3 yrs and above IM Intramuscular 04/15/2014 Administered Status:Complete ,Reason:Given or N/A Influenza, inj, MDCK, preservative free, q.valent IM Intramuscular 05/18/2018 Administered Status:Complete ,Reason:Given or N/A Influenza, quadrivalent, split, preservative free, 3 years or older IM Intramuscular 05/10/2017 Administered Status:Complete ,Reason:Given or N/A Influenza, quadrivalent, split, preservative free, 3 years or older IM Intramuscular 04/19/2021 Administered Status:Complete ,Reason:Given or N/A Influenza, seasonal, injectable, preservative free, 3 yrs and above IM Intramuscular 03/25/2015 Administered Status:Complete ,Reason:Given or N/A Social History Tobacco Use: Social History Observation Description Date Details (start date - stop date) Former Smoker NA - NA Sex Assigned At : Social History Observation Description Sex Assigned At Male Household Question Answer Notes Number of adults in household: 2 Tobacco Use/Smoking Question Answer Notes Tobacco use: former smoker patient enter ed data How long has it been since you last smoked? 5-10 years patient entered data CAGE-AID Questionnaire (2018 Edition) Question Answer Notes Have you ever felt that you ought to cut down on your drinking or drug use? No patient entered data Have people annoyed you by c riticizing your drinking or drug use? No patient entered data Have you ever felt bad or gu ilty about your drinking or drug use? No patient entered data Have you ever had a drink or used drugs first thing in the morning to steady your nerves or to get rid of a hangover? No patient entered data CAGE-AID Score 0 Interpretation Negative PRAPARE Question Answer Notes Date Completed/Updated: 07/23/2024 [email or web address] nt entered data What is your current housing situation? I have housing patient entered data Are you worried about losing your housing? No patient entered data What is the highest level of school that you have finished? High school diploma or GED patient entered data What is your current work situation? Otherwise unemployed but not seeking work (ex. 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 No patient entered lisa a How often do you see or talk to people that you care about and feel close to? (For example: talking to friends on the phone, visiting friends or family, going to hinduism or club meetings) More than 5 times a week patient entered data How stressed are you? Stress is when someone feels tense, nervous, anxious, or can't sleep at night because their mind is troubled Not at all patient entered data In the past year have you sp ent more than 2 nights in a row in a group home, retirement, intermediate center, or juvenile correctional facility? No patient entered data Are you a refugee? No patient en tered data What country are you from? [place] entered data Do you feel physically and emotionally safe where you currently live? Yes patient entered data In the past year, have you b een afraid of your partner or ex-partner? No patient entered data PRAPARE Score: 3 Problems Problem Type SNOMED Code ICD Code Onset Dates Problem Status W/U Status Risk Notes Problem 28825342 Type 2 diabetes mellitus with diabetic chronic kidney disease (E11.22) Active confirmed Problem Hypomagnesemia (753238855) Hypomagnesemia (E83.42) Active confirmed Problem 31592605 Other chronic pain (G89.29) Active confirmed Problem 375933604 Lumbago with sciatica, right side (M54.41) Active confirmed Problem 891011671 Chronic kidney disease, stage 2 (mild) (N18.2) Active confirmed Problem 18025808 Urge incontinence (N39.41) Active confirmed Problem 978941292 Incontinence without sensory awareness (N39.42) Active confirmed Problem 045065876 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) Active confirmed Problem 251820701372388 Benign prostatic hyperplasia with lower urinary tract symptoms (N40.1) Active confirmed Problem 747223719 Primary osteoarthritis of both knees (M17.0) Active confirmed Problem Gastroesophageal reflux disease (776577434) GERD (gastroesophagea l reflux disease) (K21.9) Active confirmed Problem Overweight (887905282) Overweight (BMI 25.0-29.9) (E66.3) Active confirmed Problem Blood chemistry abnormal (101075937) Elevated TSH (R79.89) Active confirmed Problem Neck pain (72002563) Neck pain (M54.2) Active confirmed Problem 750108616 Lumbar spondylosis (M47.816) Active confirmed Problem 810034647 Ulcer of left foot, unspecified ulcer stage (L97.529) Active confirmed Problem 165243494 Amputation of toe of left foot (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 asymptomatic . increase dose of lisinopril., Problem Atrial fibrillation (39034475) Paroxysmal atrial fibrillation with RVR (I48.0) Active confirmed Comment:keep follow-up as planned with cardiology heart rate/rhythm normal on exam today, patient asymptomatic take medications as prescribed (metoprolol) any concern with dizziness, fatigue, shortness of breath please seek immediate medical evaluation, Problem Hyperlipidemia (14290740) Hyperlipidemia (E78.5) 2005 Active confirmed Problem Dry skin (23867658) Dry skin (L85.3) Active confirmed Comment:-exc essively dry skin over feet & lower legs -is seeing wardrobe consultant who prescribed salves -will check TSH as well to r/o any underlying issue, Problem Vitamin D deficiency (66434828) Vitamin D deficiency (E55.9) Active confirmed Comment:per recent labwork - mild deficiency. will start daily supplement, recheck prior to follow-up., Problem 73153646 Type 2 diabetes mellitus with other circulatory complications (E11.59) Inactive confirmed Problem 911602479 Type 2 diabetes mellitus with foot ulcer (E11.621) Inactive confirmed Problem Chronic renal disease, stage III (N18.30) Inactive confirmed Problem 190475137 Other sprain of unspecified shoulder joint, initial encounter (S43.499A) 2007 Problem resolved confirmed Problem 955321236 Anemia, unspecified type (D64.9) Problem resolved confirmed Problem Abrasion of scalp (019206209) Excoriation of scalp (S00.01XA) Problem resolved confirmed Comment:nonh ealing lesion on top of head since he hit it on his headboard of hie bed. derm referral please., Problem Orthostatic hypotension (41786919) Orthostatic syncope (I95.1) Problem resolved confirmed Comment:-pt has had 4 episodes so syncope in the last week -mostly in the morning right when he wakes up. thinking these are orthostatic sx -only medication that pt is on that could cause this is tamsulosin. has been on for a long time and pt needs it according to male hunting guide who comes with pt -no specific findings on PE -will order Echo to rule out heart cause -f/u in 3 weeks, Problem Neck pain (47437889) Neck pain, acute (M54.2) Problem resolved confirmed Comment:Neck pain resolved since taking medication. Advised to complete medication remaining. 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 one has healed a new one has started, advised to continue using cream at home., Vital Signs Heart Rate 63 /min 12/05/2024 denies pain. Me Marisela gudino 12/05/2024 01:44:53 PM EDT > Temperature 97.4 degrees Fahrenheit 12/05/2024 lisbet es pain. Marisela Beard 12/05/2024 01:44:53 PM EDT > Respiratory Rate 18 /min 12/05/2024 denies pain . Marisela Beard 12/05/2024 01:44:53 PM EDT > Blood pressure diastolic 67 mm Hg 12/05/2024 den ies pain. Marisela Beard 12/05/2024 01:44:53 PM EDT > Oximetry 99 % 12/05/2024 denies pain. Me Marisela gudino 12/05/2024 01:44:53 PM EDT > Height-cm 171.45 cm 12/05/2024 denies pain. Ar Marisela gudino 12/05/2024 01:44:53 PM EDT > Weight-kg 83.46 kg 11/06/2024 Marivel Decker 11/06/2024 01:22:43 PM EDT > Marisela Beard 11/06/2024 01:46:56 PM EDT > Height 67.50 in 12/05/2024 denies pain. Ar Marisela gudino 12/05/2024 01:44:53 PM EDT > Blood pressure systolic 116 mm Hg 12/05/2024 lisbet es pain. Marisela Beard 12/05/2024 01:44:53 PM EDT > Weight 184 lbs 11/06/2024 Marivel Decker 11/06/2024 01:22:43 PM EDT > Marisela Beard 11/06/2024 01:46:56 PM EDT > BMI 28.39 kg/m2 11/06/2024 Marivel Decker 11/06/2024 01:22:43 PM EDT > Marisela Beard 11/06/2024 01:46:56 PM EDT > Encounters Encounter Location Date Provider Diagnosis [facility] [address] [place] [id number] 01/16/2024 Alison Alvarez Lumbar spondylosis M47.816 and Other chronic pain G89.29 [facility] [address] [place], [place] [id number] 04/23/2024 Rocio Aris Type 2 diabetes me llitus with diabetic chronic kidney disease E11.22 ; Elevated TSH R79.89 ; Hyperlipidemia E78.5 ; Essential hypertension I10 ; Dietary counseling Z71.3 ; Exercise counseling Z71.82 and Overweight (BMI 25.0-29.9) E66.3 Main [address] [place], [place] [id number] 05/16/2024 Rocio Aris Hyperlipidemia E78 .5 ; Essential hypertension I10 ; Chronic kidney disease, stage 2 (mild) N18.2 ; GERD (gastroesophageal reflux disease) K21.9 and Hypomagnesemia E83.42 [facility] [address] [place], [place] [id number] 07/23/2024 Bradley Studd Type 2 diabetes me llitus with other circulatory complications E11.59 [facility] [address] [place], [place] [id number] 07/30/2024 Bradley Studd Essential hyperten esther I10 Main [address] [place], [place] [id number] 08/06/2024 Bradley Studd Chronic kidney dis ease, stage 3 N18.30 and Nausea R11.0 Main [address] [place], [place] [id number] 09/18/2024 Bradley Studd Primary osteoarthr itis of both knees M17.0 [facility] [address] [place], [place] [id number] 11/06/2024 Bradley Studd Type 2 diabetes me llitus with diabetic chronic kidney disease E11.22 and Essential hypertension I10 [facility] [address] [place], [place] [id number] 12/05/2024 Bradley Studd Type 2 diabetes me llitus with diabetic chronic kidney disease E11.22 and Weakness R53.1 [facility] [address] [place], [place] [id number] 12/28/2023 Tatyana Pack Lumbar paraspinal muscle spasm M62.830 [facility] [address] [place], [place] [id number] 01/10/2024 Tatyana Pack Lumbar paraspinal muscle spasm M62.830 [place] [address] [facility] [place] [address] 01/16/2024 Alison Alvarez [place] [address] [place] [address] 01/29/2024 Alison Alvarez [place] [address] [place] [address] 01/29/2024 Alison Alvarez [facility] [address] [place], [place] [id number] 01/29/2024 Alison Alvarez [facility] [address] [place], [place] [id number] 01/29/2024 Alison Alvarez [place] [address] [address] 02/01/2024 Alison Alvarez [facility] [address] [place], [place] [id number] 02/05/2024 Alison Alvarez Type 2 diabetes me llitus with diabetic chronic kidney disease E11.[address] [place], [place] [id number] 03/06/2024 Alison Alvarez Type 2 diabetes me llitus with diabetic chronic kidney disease E11.22 [place] [address] [facility] [place] [address] 03/14/2024 Alison Alvarez [facility] [address] [place], [place] [id number] 03/21/2024 Alison Alvarez Type 2 diabetes me llitus with diabetic chronic kidney disease E11.[address] [place], [place] [id number] 03/21/2024 Alison Alvarez [facility] [address] [place], [place] [id number] 03/22/2024 Annmarie Lima Vitamin D deficien cy E55.[address] [place], [place] [id number] 03/28/2024 Alison Alvarez [place] [address] [facility] [place] [address] 04/25/2024 Rocio Aris [facility] [address] [place], [place] [id number] 04/25/2024 Rocio Aris [facility] [address] [place], [place] [id number] 04/25/2024 Rocio Aris [facility] [address] [place], [place] [id number] 04/25/2024 Rocio Aris [facility] [address] [place], [place] [id number] 05/02/2024 Rocio Aris [facility] [address] [place], [place] [id number] 05/16/2024 Rocio Aris [facility] [address] [place], [place] [id number] 05/16/2024 Rocio Aris Hypomagnesemia E83 .[address] [place], [place] [id number] 05/22/2024 Rocio Aris [facility] [address] [place], [place] [id number] 06/05/2024 Rocio Aris Medication refill Z76.[address] [place], [place] [id number] 06/19/2024 Rocio Aris Type 2 diabetes me llitus with diabetic chronic kidney disease E11.[address] [place], [place] [id number] 07/12/2024 Rocio Aris [facility] [address] [place], [place] [id number] 07/15/2024 Rocio Aris [facility] [address] [place], [place] [id number] 07/15/2024 Rocio Aris [facility] [address] [place], [place] [id number] 07/30/2024 Bradley Studd [facility] [address] [place], [place] [id number] 08/05/2024 Bradley Studd Type 2 diabetes me llitus with other circulatory complications E11.[address] [place], [place] [id number] 08/07/2024 Bradley Studd [facility] [address] [place], [place] [id number] 08/07/2024 Bradley Studd [facility] [address] [place], [place] [id number] 09/02/2024 Bradley Studd Hyperlipidemia E78 .[address] [place], [place] [id number] 09/09/2024 Bradley Studd [facility] [address] [place], [place] [id number] 09/23/2024 Bradley Studd [facility] [address] [place], [place] [id number] 09/30/2024 Bradley Studd Hypomagnesemia E83 .42 and Type 2 diabetes mellitus with diabetic chronic kidney disease E11.[address] [place], [place] [id number] 10/14/2024 Bradley Studd [facility] [address] [place], [place] [id number] 10/21/2024 Bradley Studd [facility] [address] [place], [place] [id number] 10/31/2024 Bradley Studd Type 2 diabetes me llitus with other circulatory complications E11.[address] [place], [place] [id number] 11/04/2024 Bradley Studd [facility] [address] [place], [place] [id number] 11/20/2024 Bradley Studd Medication refill Z76.0 and GERD (gastroesophageal reflux disease) K21.[address] [place], [place] [id number] 11/22/2024 Bradley Studd [facility] [address] [place], [place] [id number] 12/04/2024 Bradley Studd [facility] [address] [place], [place] [id number] 12/05/2024 Bradley Studd [facility] [address] [place], [place] [id number] 12/18/2024 Bradley Studd Type 2 diabetes me llitus with diabetic chronic kidney disease E11.22 and Hypomagnesemia E83.42 Assessments Encounter Date Diagnosis (ICD Code) Assessment Notes Treatment Notes Treatment Clinical Notes Section Notes 09/18/2024 Primary osteoarthritis of both knees (ICD-10 - M17.0) pt knee pain is likely OA related I have referred to oortho at this time pt will continue to use tylenol as needed 12/05/2024 Type 2 diabetes mellitus with diabetic chronic kidney disease (ICD-10 - E11.22) pt will continue current medications at this time educated to watch sugars and montior for any GI side effects pt will follwo with A1c recheck in 2 months 12/05/2024 Weakness (ICD-10 - R53.1) pt needs referral for home OT or PT to [facility] with his strength 12/18/2024 Type 2 diabetes mellitus with diabetic chronic kidney disease (ICD-10 - E11.22) 09/30/2024 Hypomagnesemia (ICD-10 - E83.42) 10/31/2024 Type 2 diabetes mellitus with other circulatory complications (ICD-10 - E11.59) 11/06/2024 Type 2 diabetes mellitus with diabetic chronic kidney disease (ICD-10 - E11.22) pts a1c has increased from 8 to 10.4 at this time disucsisone as had about the importance of contolling the A1c pt verbalized understanding 11/06/2024 Essential hypertension (ICD-10 - I10) pt sblood joseur was low end of normal today I have asked patient to report is next home readings form home health to me pt had echo done will review results encouraged pt to drink plenty of fluids and monitor for symtpoms 11/20/2024 Medication refill (ICD-10 - Z76.0) 05/16/2024 Essential hypertension (ICD-10 - I10) BP reading in acceptable range from home and in office today. Pt should be on Lisinopril with his diabetes but Will hold on adding given his age and risk of hypotension and falls. 04/23/2024 Elevated TSH (ICD-10 - R79.89) due for labs 05/16/2024 Hyperlipidemia (ICD-10 - E78.5) Elevated Triglycerides with normal Cholesterol levels. I will start him on Atorvastatin 20 mg with his diabeties as his ASCVD>7.5%. Avoiding high intensity due to his age. 05/16/2024 Hypomagnesemia (ICD-10 - E83.42) 06/05/2024 Medication refill (ICD-10 - Z76.0) 06/19/2024 Type 2 diabetes mellitus with diabetic chronic kidney disease (ICD-10 - E11.22) 07/23/2024 Type 2 diabetes mellitus with other circulatory complications (ICD-10 - E11.59) the pt has had vomiting over the last year he has been taking ozempic during that time i will stop ozempic at this time to attempt to hopefully stop the pt from vomiting i will increase the basal insulin at this time from 32 units to 36 pt will check his glucsoe every morning if he has a fasting level over 200 he will call the office if he has fasting below 90 with symptoms he will call the office when to go to ER was discussed with the pt and he verbalized understanding 07/30/2024 Essential hypertension (ICD-10 - I10) Bp well controlled. Continue current medications 08/05/2024 Type 2 diabetes mellitus with other circulatory complications (ICD-10 - E11.59) 08/06/2024 Nausea (ICD-10 - R11.0) naussea has iomproved had one episode could be from a viral bug I will follow in 4 weeks to recheck the N/V 08/06/2024 Chronic kidney disease, stage 3 (ICD-10 - N18.30) Upon review of the pts labs his GFR is in CKD stage 3 now and has decreased since his last lab work I will refer to nephrolgy at this time pt is already on jardiance 09/02/2024 Hyperlipidemia (ICD-10 - E78.5) 12/28/2023 Lumbar paraspinal muscle spasm (ICD-10 - M62.830) 01/10/2024 Lumbar paraspinal muscle spasm (ICD-10 - M62.830) 01/16/2024 Lumbar spondylosis (ICD-10 - M47.816) States HH helping him schedule for PT ordered by [facility]. Has f/u with them scheduled as above. Will not give additional RX for Tramadol started in ED at this time. Pt can d/w Pain Management. Asks about ramp for 3 steps in front of home. Pt will d/w PT and Pain Management. 02/05/2024 Type 2 diabetes mellitus with diabetic chronic kidney disease (ICD-10 - E11.22) 03/06/2024 Type 2 diabetes mellitus with diabetic chronic kidney disease (ICD-10 - E11.22) 03/21/2024 Type 2 diabetes mellitus with diabetic chronic kidney disease (ICD-10 - E11.22) 03/22/2024 Vitamin D deficiency (ICD-10 - E55.9) 04/23/2024 Type 2 diabetes mellitus with diabetic chronic kidney disease (ICD-10 - E11.22) A1c improved to 7.6 today from 7.9 (09/2023). Our goal A1c for him is less than 8 and pt is at goal. I wouldnt try to drop less than 7 given his comorbidities and age. I will continue the same regimen. Advised to check blood glucose 3 times a day (fasting before breakfast, before lunch and then before dinner) and keep a record to bring on your next visit. Further discussed healthy diabetic diet and exercise as much as he can. PVU 01/16/2024 Other chronic pain (ICD-10 - G89.29) 04/23/2024 Hyperlipidemia (ICD-10 - E78.5) due for labs 05/16/2024 Chronic kidney disease, stage 2 (mild) (ICD-10 - N18.2) Will check albumin/Cr ratio. Continue to montior if worsneing then will refer to Environmental Test Technician 09/30/2024 Type 2 diabetes mellitus with diabetic chronic kidney disease (ICD-10 - E11.22) 11/20/2024 GERD (gastroesophageal reflux disease) (ICD-10 - K21.9) 12/18/2024 Hypomagnesemia (ICD-10 - E83.42) 05/16/2024 GERD (gastroesophageal reflux disease) (ICD-10 - K21.9) Needs refill 04/23/2024 Essential hypertension (ICD-10 - I10) BP noted to be elevated. But pt states that he has nurse who comes and check his blood pressure and readings are good at home. Currently asymptomatic. I will not chnage his medications at this point. Advised to check BP at home and keep a record of it to bring on next visit in 2 weeks. Also advised to schedule an appt with his customer experience strategist. Discussed having diet low in salt and exercise. 04/23/2024 Dietary counseling (ICD-10 - Z71.3) 05/16/2024 Hypomagnesemia (ICD-10 - E83.42) Needs refill. Will check labs 04/23/2024 Exercise counseling (ICD-10 - Z71.82) 04/23/2024 Overweight (BMI 25.0-29.9) (ICD-10 - E66.3) Plan Of Treatment Next Appt Details Provider Name:Bradley Bejarano, 02/04/2025 01:45:00 PM, [address] [place], [place], [id number], Insurance Providers Payer Name Payer Address Payer Phone Subscriber Number Group Number Insured Name Patient Relationship to Insured Coverage Start Date Coverage End Date Medicare NGS PPS [address] [place], [place] [id number] Lisbet Radha Self - patient is the insured 9 Medicaid Medicare Crossover [address] [place], [place] [id number] Radha Quiñones Self - patient is the insured 6 Medical (General) History Medical History History ICD Code Cardiac Pacemaker with defibrillator Diabetes mellitus type 2 Urinary incontinence without sensory sameera reness Excoriation of scalp (resolved 3) undefined HTN A fib Anemia, unspecified type (resolved 09/27) undefined Surgical History Surgery Date(Month/Year) Cataract Extraction-Bilateral skin cancer removal on rt hand 12/2014 Cardiac pacemaker/defibrillator 3 toes removed- left foot 2022 2 toes removed-left foot 10/2024 Hospitalization History Reason Date(Month/Year) see above Back and foot pain 01/14/2024
--- OUTSIDE RECORDS SUMMARY | 2024-12-18 13:56 | XMS_ITS | Encounter Summary ---
Author Organization [facility] Address [facility] [id number] [address] [place] [address] Care Team Providers Care Luster Repairer Name Role Phone Services, [facility] Primary Care Provider Encounter Details Date Type Department Care Team (Late st Contact Info) Description 09/07/2016 Documentation [facility] [address] [place] [phone] Frederic Thorne MD [address] [place] [id number] Social History Tobacco Use Types Packs/Day Years Used Date Smoking Tobacco: Never Sex and Gender Information Value Date Recorded Sex Assigned at Not on file Legal Sex Male 11:39 AM EDT Gender Identity Not on file Sexual Orientation Not on file documented as of this encounter Plan of Treatment Not on file documented as of this encounter Visit Diagnoses Not on filedocumented in this encounter Additional Health Concerns Infection Onset Date Last Indicated Resolved Time COVID-19 Positive 05/23/2020 06/06/2020 06/27/2020 11:12 PM EST documented as of this encounter Care Teams Luster Repairer Relationship Specialty Start Date End Date Services, [facility] [address] [place], [place] PCP - General Family Medicine 04/16/24 documented as of this encounter
--- OUTSIDE RECORDS SUMMARY | 2024-12-18 13:56 | XMS_ITS | Encounter Summary ---
Author Organization [facility] Sys tem Address [id number] [address] [place] [address] Care Team Providers Care Cattle Farmer Name Role Phone Services, Counts Include [address] [facility] Primary Care Provider Encounter Details Date Type Department Care Team (Late st Contact Info) Description 09/04/2020 Orders Only [facility] [address] [place] [phone] External, Scanning Provider Social History Tobacco Use [...] have Coronavirus / COVID-19? No / Unsure 09/03/2020 2:01 PM EST documented as of this encounter Plan of Treatment Not on file documented as of this encounter Goals Goal Patient Goal Type Associated Problems Recent Progress Patient-Stated? Author safe transition from hospital to home General Yes Laurie Villar, RELAY MECHANIC-MANAGER RETAIL SALES Note: Evaluation of progress towards goal: discharge home with islam/friends support. <enter goal here> General Yes Sunita Tomlinson LSW Note: Evaluation of progress towards goal: plan home self care documented as of this encounter Procedures Procedure Name Priority Date/Time Associated Diagnosis Comments DEVICE INTERROGATION Routine 09/03/2020 documented in this encounter Results * Device Interrogation (09/03/2020) Anatomical Region Laterality Modality Other us Scanning Provider External [facility] C[facility] SERVICES O RDERABLES Final Result documented in this encounter Visit Diagnoses Not on filedocumented in this encounter Care Teams Cattle Farmer Relationship Specialty Start Date End Date Services, Counts Include [address] [facility] [address] [place], [place] PCP - General Family Medicine 04/16/24 documented as of this encounter
--- OUTSIDE RECORDS SUMMARY | 2024-12-18 13:56 | XMS_ITS | Encounter Summary ---
Author Organization [employer] Sys tem Address [facility] [place]-[id number] [address] [place] [address] Care Team Providers Care Physical Therapy Director Name Role Phone Services, [facility] Primary Care Provider Encounter Details Date Type Department Care Team (Late st Contact Info) Description 07/28/2020 [facility]phone [email or web address] [address] [facility] [place] [phone] Dwain Lynn MD [address] [place] [address] Social History Tobacco Use Types Packs/Day Years [...] have Coronavirus / COVID-19? No / Unsure 07/30/2020 9:44 AM EST documented as of this encounter Miscellaneous Notes * Telephone Encounter - Marlene Nunez RN - 07/28/2020 5:22 AM EST RN called patient. Spoke with Mariana in device clinic- she stated to have patient unplug and plug back in. If that doesn't work, patient to call [employer] at . Marlene Nunez RN 07/28/20 1004 documented in this encounter Plan of Treatment Not on file documented as of this encounter Goals Goal Patient Goal Type Associated Problems Recent Progress Patient-Stated? Author safe transition from hospital to home General Yes Laurie Villar, HEALTH RECORDS TECHNOLOGY TEACHER-ELDER ASSISTANT Note: Evaluation of progress towards goal: discharge home with alevism/friends support. <enter goal here> General Yes Sunita Tomlinson LSW Note: Evaluation of progress towards goal: plan home self care documented as of this encounter Visit Diagnoses Not on filedocumented in this encounter Care Teams Physical Therapy Director Relationship Specialty Start Date End Date Services, [facility] [address] [place], [place] PCP - General Family Medicine 04/16/24 documented as of this encounter
--- OUTSIDE RECORDS SUMMARY | 2024-12-18 13:56 | XMS_ITS | Encounter Summary ---
Author Organization [facility] Address [facility] [id number] [address] [place] [address] Care Team Providers Care Net Ui Developer Name Role Phone Services, [facility] Primary Care Provider Encounter Details Date Type Department Care Team (Late st Contact Info) Description 03/09/2023 Orders Only [facility] [address] [place] [phone] Yoni Espinoza MD [address] [place] [address] Ventricular tachycardia ([facility]) Social History Tobacco Use Types Packs/Day Years [...] hospital to home General Yes Laurie Villar, CHEMICAL TREATMENT OPERATOR-MARKET RESEARCH ASSISTANT Note: Evaluation of progress towards goal: discharge home with hindu/friends support. <enter goal here> General Yes Sunita Tomlinson, ALANIS Note: Evaluation of progress towards goal: plan home self care SNF General Yes Cathryn Kapadia, WOODWORKING CRAFTSMAN Note: Evaluation of progress towards goal: Patient likely will discharge to a SNF documented as of this encounter Procedures Procedure Name Priority Date/Time Associated Diagnosis Comments DEVICE INTERROGATION Routine 03/08/2023 Ventricular tachycardia ([facility]) documented in this encounter Results * Device Interrogation (03/08/2023) Anatomical Region Laterality Modality Other us Yoni Espinoza MD CV CARDIAC SERVICES ORDERABLES Final Result documented in this encounter Visit Diagnoses Diagnosis Ventricular tachycardia ([facility]) Paroxysmal ventricular tachycardia documented in this encounter Care Teams Net Ui Developer Relationship Specialty Start Date End Date Services, [facility] [address] [place], [place] PCP - General Family Medicine 04/16/24 documented as of this encounter
--- OUTSIDE RECORDS SUMMARY | 2024-12-18 13:56 | XMS_ITS | Encounter Summary ---
Author Organization [facility] Sys tem Address [facility] [id number] [address] [place] [address] Care Team Providers Care Handicrafts Teacher Name Role Phone Services, [facility], [facility] Primary Care Provider Encounter Details Date Type Department Care Team (Late st Contact Info) Description 05/08/2020 Orders Only [facility] [address] [place] [phone] External, Scanning Provider Social History Tobacco Use Types Packs/Day Years Used Date Smoking Tobacco: Never Smokeless Tobacco: Never Alcohol Use Standard Drinks/Week Comments No 0 (1 standard drink = 0.6 oz pur e alcohol) Childcare Answer Date Recorded Childcare Unknown 12/03/2018 Employment Answer Date Recorded Employment Unknown 12/03/2018 Sex and Gender Information Value Date Recorded Sex Assigned at Not on file Legal Sex Male 11:39 AM EDT Gender Identity Not on file Sexual Orientation Not on file COVID-19 Exposure Response Date Recorded In the last month, have you been in contact with someone who was confirmed or suspected to have Coronavirus / COVID-19? No / Unsure 05/07/2020 12:56 PM EST documented as of this encounter Plan of Treatment Not on file documented as of this encounter Goals Goal Patient Goal Type Associated Problems Recent Progress Patient-Stated? Author safe transition from hospital to home General Yes Laurie Villar, CONTRACT LOADER-MATERIAL MIXER Note: Evaluation of progress towards goal: discharge home with zoroastrianism/friends support. <enter goal here> General Yes Sunita Tomlinson LSW Note: Evaluation of progress towards goal: plan home self care documented as of this encounter Procedures Procedure Name Priority Date/Time Associated Diagnosis Comments DEVICE INTERROGATION Routine 05/07/2020 documented in this encounter Results * Device Interrogation (05/07/2020) Anatomical Region Laterality Modality Other us Scanning Provider External CV CARDIAC SERVICES O RDERABLES Final Result documented in this encounter Visit Diagnoses Not on filedocumented in this encounter Additional Health Concerns Infection Onset Date Last Indicated Resolved Time COVID-19 Positive 05/23/2020 06/06/2020 06/27/2020 11:12 PM EST documented as of this encounter Care Teams Handicrafts Teacher Relationship Specialty Start Date End Date Services, [facility], [facility] [address] [place], [place] PCP - General Family Medicine 04/16/24 documented as of this encounter
--- OUTSIDE RECORDS SUMMARY | 2024-12-18 13:56 | XMS_ITS | Patient Health Record ---
Author Organization [facility] in [place] Address [address] [place] [address] Care Team Providers Care [employer] Name Role Phone Izzy Parekh Primary Care Provider Unavail able RankJuan sumner Dar [phone] Allergies No Known Allergies Results Component Value Reference Range Notes XR foot LT min 3V (Not yet r eviewed by provider) Interpretation: Performing Lab: Notes/Report: Source Facility: [place] [address] XRay Report Signed Patient: RADHA QUIÑONES MR#: [id number] : 1955 Acct:[id number] Age/Sex: 68 / M ADM Date: 03/22/24 Loc: Attending Dr: Mariana Solomon D.P.M. Ordering Physician: Mariana Solomon D.P.M. Date of Service: 03/22/24 Procedure(s): XR foot LT min 3V Accession Number(s): [id number] cc: IZZY SAM ; Mariana Solomon D.P.M. [facility] [place] [address] Patient Name: RADHA QUIÑONES MRN: [id number] date: 1955 Sex: M Assigned Patient Location: Current Patient Location: Accession/Order Number: [id number] Exam Date: 03/22/2024 10:16 Report Date: 03/25/2024 [...] Dictated By: Lucas Varner M.D. Signed By: 03/25/241312 DD/ 09 TD/TT: Fine [employer] Packer: [place] [address] XRay Report Signed Patient: RADHA QUIÑONES MR#: [id number] : 1955 Acct:[id number] Age/Sex: 68 / M ADM Date: 03/22/24 Loc: Attending Dr: Mariana Soloomn D.P.M. Ordering Physician: Mariana Solomon D.P.M. Date of Service: 03/22/24 Procedure(s): XR shahid t LT min 3V Accession Number(s): [id number] cc: IZZY SAM ; Mariana Solomon D.P.M. [facility] [place] [address] Patient Name: RADHA QUIÑONES MRN: [id number] date: 1955 Sex: M Assigned Patient Location: Current Patient Location: Accession/Order Numb er: [id number] Exam Date: 03/22/2024 10:16 Report Date: 03/25/2024 13:10 At the request of: MARIANA SOLOMON Procedure: XR foot L T min 3V PROCEDURE: XR foot L T min 3V COMPARISON: 01/09/2023 HISTORY: LEFT FOOT PAIN FINDINGS: BONES:Stable amputat ion of the third fourth and fifth toes along the mid diaphyses of the metatarsals. No new fracture, dislocation or focal lytic/sclerotic lesions SOFT TISSUES:Soft ti ssue defect plantar forefoot EFFUSION:None visible. OTHER: Vascular calcifications X R/XR foot LT min 3V IMPRESSION: No plain film eviden ce of osteomyelitis Electronically authenticated by: LUCAS VARNER Date: 03/25/2024 13:10 Dictated By: Jaylen Varner M.D. Signed By: 03/25/24 131 DD/ 131 TD/TT: Fine [employer] Packer: CRP (Not yet reviewed by pro vider) Interpretation: Performing Lab:[facility], [address] [place] [address] [address]VE[address] [place]. [address] PH:[phone] Notes/Report: C REACTIVE PROTEIN 1.9 0.000-0.744 mg/dL PERF ORMED AT [address] [place] [address] ESR (Not yet reviewed by pro vider) Interpretation: Performing Lab:[facility] ([facility]), [address], [place]. [address] PH:[phone] Notes/Report: ESR, ERYTHROCYTE SEDIMENTATION RATE 47 0-20 mm/h PERFORMED AT [address],[place] [address] CBC AND AUTO DIFF * (Not yet reviewed by provider) Interpretation: Performing Lab:[facility], [address] [place] [address] [address]VE[address] [place]. [address] PH:[phone] Notes/Report: WBC COUNT 5.9 4.0-11.0 X10E9/L RBC COUNT 4.52 4.10-5.70 X10E12/L HEMOGLOBIN 13.9 13.0-17.0 g/dL HEMATOCRIT 42.0 39-49 % MCV 93 80-100 fL MCH 30.7 27-34 pg MCHC 33.0 32-36 g/dL RDW 14.6 11.5-15.0 % PLATELET COUNT 315 150-450 X10E9/L MPV 8.2 7-12 fL % NEUTROPHILS 64.1 % LYMPHOCYTES 24.7 % MONOCYTES 9.7 % EOSINOPHILS 0.7 % BASOPHILS 0.8 ABSOLUTE NEUTROPHIL 3.8 1.5-6.6 X10E9/L ABSOLUTE LYMPHOCYTE 1.5 1.0-3.5 X10E9/L ABSOLUTE MONOCYTE 0.6 0-0.9 X10E9/L ABSOLUTE EOSINOPHIL 0.0 0.0-0.4 X10E9/L ABSOLUTE BASOPHIL 0.0 0.0-0.2 X10E9/L PERFORM ED AT [address] [place] [address] HGB A1C (GLYCO-HGB) (Not yet reviewed by provider) Interpretation: Performing Lab:[facility] ([facility]), [address] [place] [address] [address]VE[address], [place]. [address] PH:[phone] Notes/Report: HEMOGLOBIN A1C 8.7 4.4-5.6 % Result HgbA1c the half-life of red blood cells and in vivo glycation rates are Diabetes : > 6.4 % affected. Normal : less than 5.7 % Prediabetes : 5.7 % to 6.4 % Use with caution in patients with abnormal hemoglobin variants as NOTE ADA Guidelines AVERAGE GLUCOSE 203 PERFORMED AT [address],[place] [address] VC SEGMENTAL PRESSURES (Not yet reviewed by provider) Interpretation: Performing Lab: Notes/Report: Source Facility: [facility]-[address] [place] [address] Vein Report Signed Patient: RADHA QUIÑONES MR#: [id number] : 1955 Acct:[id number] Age/Sex: 69 / M ADM Date: 08/01/24 Loc: VC Attending Dr: Mariana Solomon D.P.M. Ordering Physician: Mariana Solomon D.P.M. Date of Service: 08/01/24 Procedure(s): VC SEGMENTAL PRESSURES Accession Number(s): [id number] cc: IZZY SAM ; Mariana Solomon D.P.M. [place] [address] Patient Name: RADHA QUIÑONES MRN: [id number] date: 1955 Sex: M Assigned Patient Location: Current Patient Location: VC Accession/Order Number: [id number] Exam Date: 08/01/2024 13:16 Report Date: 08/01/2024 16:15 At the request of: MARIANA SOLOMON Procedure: VC SEGMENTAL PRESSURES EXAM: VC SEGMENTAL PRESSURES HISTORY: R0 COMPARISON: None. TECHNIQUE: Resting ABIs and segmental pressures were obtained FINDINGS: Right resting KELLEY abnormally elevated due to vascular rigidity. Left resting KELLEY abnormally elevated due to vascular rigidity. Waveforms were monophasic. Recommend CTA. VEIN/VC SEGMENTAL PRESSURES IMPRESSION: Nondiagnostic ABIs and segmental pressures due to vascular rigidity. Recommend CTA. Electronically authenticated by: Eda DILLON Date: 08/01/2024 16:15 Dictated By: Eda Dillon M.D. Signed By: 08/01/241617 DD/ 14 TD/TT: [employer] Packer: [place] [address] Vein Report Signed Patient: RADHA QUIÑONES MR#: [id number] : 1955 Acct:[id number] Age/Sex: 69 / M ADM Date: 08/01/24 Loc: VC Attending Dr: Mariana Solomon D.P.M. Ordering Physician: Mariana Solomon D.P.M. Date of Service: 08/01/24 Procedure(s): VC SEGMENTAL PRESSURES Accession Number(s): [id number] cc: IZZY SAM ; Mariana Solomon D.P.M. [place] [id number] Patient Name: RADHA QUIÑONES MRN: [id number] date: 1955 Sex: M Assigned Patient Location: VC Current Patient Location: VC Accession/Order Numb er: [id number] Exam Date: 08/01/2024 13:16 Report Date: 08/01/2024 16:15 At the request of: MARIANA SOLOMON Procedure: VC SEGMEN АЛЕКСАНДР PRESSURES EXAM: VC SEGMENTAL PRESSURES HISTORY: R0 COMPARISON: None. TECHNIQUE: Resting A BIs and segmental pressures were obtained FINDINGS: Right rest ing KELLEY abnormally elevated due to vascular rigidity. Left resting KELLEY abnormal ly elevated due to vascular rigidity. Waveforms were monophasic. Recommen d CTA. VEIN/VC SEGMENTAL PRESSURES IMPRESSION: Nondiagnostic ABIs a nd segmental pressures due to vascular rigidity. Recommend CTA. Electronically authenticated by: Eda DILLON Date: 08/01/2024 16:15 Dictated By: Eda Dillon M.D. Signed By: 08/01/241617 DD/ 14 TD/TT: Fine Arts Packer: CT FOOT LT WO CON (Not yet r eviewed by provider) Interpretation: Performing Lab: Notes/Report: Source Facility: [place] [address] CT Scan Report Signed Patient: RADHA QUIÑONES MR#: [id number] : 1955 Acct:[id number] Age/Sex: 69 / M ADM Date: 07/31/24 Loc: CT Attending Dr: Mariana Solomon D.P.M. Ordering Physician: Mariana Solomon D.P.M. Date of Service: 07/31/24 Procedure(s): CT foot LT wo con Accession Number(s): [id number] cc: IZZY SAM [place] [address] Patient Name: RADHA QUIÑONES MRN: [id number] date: 1955 Sex: M Assigned Patient Location: CT Current Patient Location: Accession/Order Number: [id number] Exam Date: 07/31/2024 13:15 Report Date: 08/02/2024 05:33 At the request of: MARIANA SOLOMON Procedure: CT foot LT wo con EXAMINATION: CT foot LT wo con HISTORY: Chronic Osteomyelitis Foot , left COMPARISON: XR foot left 03/22/2024 TECHNIQUE: Multi-planar CT images were created without and/or with IV contrast according to examination type. Dose reduction techniques were achieved by using automated exposure control and/or adjustment of mA and/or kV according to patient size and/or use of iterative reconstruction technique. FINDINGS: BONES: Prior amputation of the third through 5th toes at the level of the mid to distal metatarsals. Thinning of the cortex along the distal lateral margin of the third and 5th cortex; osseous destruction versus sequela of surgery. The distal tip of the fourth metatarsal lies very close to the skin surface. SOFT TISSUES: Abnormal skin thickening and density along the dorsal and distal lateral margins of the foot overlying the amputated ends of the third through 5th metatarsals. Some skin surface irregularity may represent ulcers. EFFUSION: None visible. OTHER: Negative. CT/CT foot LT wo con IMPRESSION: 1. Thickened appearance of the skin overlying the distal lateral foot may represent postsurgical changes or cellulitis. 2. Distal ends of the partially amputated third through 5th metatarsals lie immediately adjacent to the skin, with the fourth metatarsal very near the skin surface. Postoperative changes versus mild cortical destruction involving distal lateral margin of the third and 5th metatarsals. Electronically authenticated by: ROBERT MOORE Date: 08/02/2024 05:33 Dictated By: Robert Moore M.D. Signed By: 08/02/24534 DD/ 2 TD/TT: Fine Arts Packer: [place] [address] CT Scan Report Signed Patient: RADHA QUIÑONES MR#: [id number] : 1955 Acct:[id number] Age/Sex: 69 / M ADM Date: 07/31/24 Loc: CT Attending Dr: Mariana Solomon D.P.M. Ordering Physician: Mariana Solomon D.P.M. Date of Service: 07/31/24 Procedure(s): CT shahid t LT wo con Accession Number(s): [id number] cc: IZZY SAM [place] [address] Patient Name: RADHA QUIÑONES MRN: [id number] date: 1955 Sex: M Assigned Patient Location: CT Current Patient Location: Accession/Order Numb er: [id number] Exam Date: 07/31/2024 13:15 Report Date: 08/02/2024 05:33 At the request of: MARIANA SOLOMON Procedure: CT foot L T wo con EXAMINATION: CT foot LT wo con HISTORY: Chronic Osteomyelitis Foot , left COMPARISON: XR foot left 03/22/2024 TECHNIQUE: Multi-arline gunner CT images were created without and/or with IV contrast according to examina tion type. Dose reduction techniques were achieved by using automated exposure control and/or adjustment of mA and/or kV according to patient size and/or use of iterative reconstruction technique. FINDINGS: BONES: Prior amputat ion of the third through 5th toes at the level of the mid to distal metatarsal s. Thinning of the cortex along the distal lateral margin of the third and 5th cortex; osseous destruction versus sequela of surgery. The distal tip of the fo urth metatarsal lies very close to the skin surface. SOFT TISSUES: Abnorm al skin thickening and density along the dorsal and distal lateral margins of t he foot overlying the amputated ends of the third through 5th metatarsals. Ty e skin surface irregularity may represent ulcers. EFFUSION: None visible. OTHER: Negative. C T/CT foot LT wo con IMPRESSION: 1. Thickened appeara nce of the skin overlying the distal lateral foot may represent postsurgic al changes or cellulitis. 2. Distal ends of th e partially amputated third through 5th metatarsals lie immediately adjacent to the skin, with the fourth metatarsal very near the skin surface. Postoperati ve changes versus mild cortical destruction involving distal lateral meghana n of the third and 5th metatarsals. Electronically authenticated by: ROBERT MOORE Date: 08/02/2024 05:33 Dictated By: Robert Moore M.D. Signed By: 08/02/24 0535 DD/ 0533 TD/TT: Fine Arts Packer: PTT (Not yet reviewed by pro vider) Interpretation: Performing Lab: Notes/Report: [facility] , Partial Thromboplastin Time 35.8 22.3-36.2 sec Performing Lab: see note ML - [facility] Prothrombin Time INR (Not ye t reviewed by provider) Interpretation: Performing Lab: Notes/Report: [facility] , Prothrombin Time 12.8 9.0-11.6 sec INR 1.23 2.5-3.5 FOR PROSTHETIC HEART VALVE REPLACEMENT DESIRED INR: 2.5-3.5 RECURRENT THROMBOSIS 2.0-3.0 CONDITIONS NOT LISTED BELOW Performing Lab: see note ML - [facility] XR chest 2V (Not yet reviewe d by provider) Interpretation: Performing Lab: Notes/Report: Source Facility: [place] [address] [place] [address] XRay Report Signed Patient: RADHA QUIÑONES MR#: [id number] : 1955 Acct:[id number] Age/Sex: 69 / M ADM Date: 10/23/24 Loc: [facility] Attending Dr: Mariana Solomon D.P.M. Ordering Physician: Mariana Solomon D.P.M. Date of Service: 10/23/24 Procedure(s): XR chest 2V Accession Number(s): [id number] cc: IZZY SAM ; Mariana Solomon D.P.M. [facility] [place] [address] Patient Name: RADHA QUIÑONES MRN: [id number] date: 1955 Sex: M Assigned Patient Location: [facility] Current Patient Location: [facility] Accession/Order Number: [id number] Exam Date: 10/23/2024 15:07 Report Date: 10/23/2024 15:08 At the request of: MARIANA SOLOMON DPEdvin Procedure: XR chest 2V Plain film chest 2 view HISTORY: Presurgical assessment COMPARISON: None FINDINGS: SUPPORT DEVICES: None POSTSURGICAL CHANGES: Cardiac device intact HEART: Within normal limits PULMONARY MARNIE: Within normal limits MEDIASTINUM: Unremarkable LUNGS AND PLEURA: No acute lung process, pleural effusion or pneumothorax identified. Low lung volumes with bronchovascular crowding and mild atelectasis BONY STRUCTURES: Intact ADDITIONAL FINDINGS None XR/XR chest 2V IMPRESSION: No acute process. Low lung volumes. Impression dictated by: Rodri Shrestha M.D.10/23/2024 3:08 PM Dictation Location: [place] [address] Electronically authenticated by: [id number] Y Date: 10/23/2024 15:08 Dictated By: Rodri Shrestha D.O. Signed By: 10/23/24 1510 DD/ 1508 TD/TT: Fine [employer] Packer: [place] [address] XRay Report Signed Patient: RADHA QUIÑONES MR#: [id number] : 1955 Acct:[id number] Age/Sex: 69 / M ADM Date: 10/23/24 Loc: PST Attending Dr: Mariana Solomon D.P.M. Ordering Physician: Mariana Solomon D.P.M. Date of Service: 10/23/24 Procedure(s): XR alex st 2V Accession Number(s): [id number] cc: IZZY SAM ; Mariana Solomon D.P.M. [place] [address] Patient Name: RADHA QUIÑONES MRN: [id number] date: 1955 Sex: M Assigned Patient Location: [facility] Current Patient Location: [facility] Accession/Order Numb er: [id number] Exam Date: 10/23/2024 15:07 Report Date: 10/23/2024 15:08 At the request of: MARIANA SOLOMON DPEdvin Procedure: XR chest 2V Plain film chest 2 view HISTORY: Presurgical assessment COMPARISON: None FINDINGS: SUPPORT DEVICES: None POSTSURGICAL CHANGES : Cardiac device intact HEART: Within normal limits PULMONARY MARNIE: With in normal limits MEDIASTINUM: Unremarkable LUNGS AND PLEURA: No acute lung process, pleural effusion or pneumothorax identified. Low lung volumes with bronchovascular crowding and mild atelectasis BONY STRUCTURES: Intact ADDITIONAL FINDINGS None X R/XR chest 2V IMPRESSION: No acute process. Low lung volumes. Impression dictated by: Rodri Shrestha M.D.10/23/2024 3:08 PM Dictation Location: [place] [address] Electronically authenticated by: [id number] Y Date: 10/23/2024 15:08 Dictated By: Rodri Shrestha D.O. Signed By: 10/23/24 1510 DD/ 1508 TD/TT: Fine Arts Packer: LEE ANN foot LT min 3V (Not yet r eviewed by provider) Interpretation: Performing Lab: Notes/Report: Source Facility: [place] [address] [address] [address] XRay Report Signed Patient: RADHA QUIÑONES MR#: [id number] : 1955 Acct:[id number] Age/Sex: 69 / M ADM Date: 11/12/24 Loc: SURGOUT Attending Dr: Mariana Solomon D.P.M. Ordering Physician: Mariana Solomon D.P.M. Date of Service: 11/12/24 Procedure(s): XR foot LT min 3V Accession Number(s): [id number] cc: IZZY SAM ; Mariana Solomon D.P.M. [place] [id number] Patient Name: RADHA QUIÑONES MRN: [id number] date: 1955 Sex: M Assigned Patient Location: SURGOUT Current Patient Location: [facility] Accession/Order Number: [id number] Exam Date: 11/12/2024 14:31 Report Date: 11/12/2024 14:33 At the request of: MARIANA SOLOMON DPEdvin Procedure: XR foot LT min 3V XR foot LT min 3V 11/12/2024 1:39 PM SIGNS AND SYMPTOMS: deformity left foot m21.6x2, postop Y PROTOCOL: Frontal, lateral, and oblique radiographs of the left foot COMPARISON: 07/31/2024 FINDINGS: There has been interval amputation of the left foot from the base of the metatarsals distally. There is accompanying soft tissue swelling over the stomach. Vascular calcifications are present in the soft tissues. There is mild plantar surface calcaneal spurring. XR/XR foot LT min 3V IMPRESSION: Status post amputation of the first through fifth digits of left foot with mild soft tissue swelling along the distal stump. Impression dictated by: Rafita Aranda M.D. 11/12/2024 2:33 PM Dictation Location: [place] [address] Electronically authenticated by: [id number] Y Date: 11/12/2024 14:33 Dictated By: Rafita Aranda M.D. Signed By: 11/12/241434 DD/ 32 TD/TT: Fine Arts Packer: [place] [id number] XRay Report Signed Patient: RADHA QUIÑONES MR#: [id number] : 1955 Acct:[id number] Age/Sex: 69 / M ADM Date: 11/12/24 Loc: SURGOUT Attending Dr: Mariana Solomon D.P.M. Ordering Physician: Mariana Solomon D.P.M. Date of Service: 11/12/24 Procedure(s): XR shahid t LT min 3V Accession Number(s): [id number] cc: IZZY SAM ; Mariana Solomon D.P.M. [place] [address] Patient Name: RADHA QUIÑONES MRN: [id number] date: 1955 Sex: M Assigned Patient Location: [facility] Current Patient Location: [facility] Accession/Order Numb er: [id number] Exam Date: 11/12/2024 14:31 Report Date: 11/12/2024 14:33 At the request of: MARIANA SOLOMON DPM Procedure: XR foot L T min 3V XR foot LT min 3V 11/12/2024 1:39 PM SIGNS AND SYMPTOMS: deformity left foot m21.6x2, postop Y PROTOCOL: Frontal, lateral, and oblique radiographs of the left foot COMPARISON: 07/31/2024 FINDINGS: There has been inter ariana amputation of the left foot from the base of the metatarsals distally . There is accompanying soft tissue swelling over the stomach. Vascular calcifications are present in the soft tissues. There is mild plantar surface calcaneal spurring. X R/XR foot LT min 3V IMPRESSION: Status post amputati on of the first through fifth digits of left foot with mild soft tissue swelling along the distal stump. Impression dictated by: Rafita Aranda M.D. 11/12/2024 2:33 PM Dictation Location: [place] [address] Electronically authenticated by: [id number] Y Date: 11/12/2024 14:33 Dictated By: Rafita Aranda M.D. Signed By: 11/12/241434 DD/ 32 TD/TT: Fine Arts Packer: PROF KAYODE Antunez ([facility]) (Not yet reviewed by provider) Interpretation: Performing Lab: Notes/Report: [facility] , Sodium 134 136-145 mmol/L Potassium 4.3 3.5-5.1 mmol/L Chloride 98 98-107 mmol/L Carbon Dioxide 29.3 21.0-32.0 mmol/L Anion Gap 11.0 Glucose 210 74-106 mg/dL Blood Urea Nitrogen 18.0 7.0-18.0 mg/dL Creatinine 1.38 0.70-1.30 mg/dL Estimated GFR ( Jessica >60 >=60 mL/min/1.73m 2 Estimated GFR (Non- Tati 51 >=60 mL/min/1.73m 2 BUN Creatinine Ratio 13.0 Calcium 9.2 8.5-10.1 mg/dL Performing Lab: see note ML - [facility] LB CBC AUTO DIFF (Not yet revie wed by provider) Interpretation: Performing Lab: Notes/Report: [facility] , White Blood Count 5.3 4.0-11.0 10 3/uL Red Blood Count 4.22 4.70-6.10 10 6/uL Hemoglobin 12.3 14.0-18.0 g/dL Hematocrit 38.6 42.0-54.0 % Mean Corpuscular Volume 91.5 80.0-94.0 fL Mean Corpuscular Hemoglobin 29.1 25.9-34.0 pg Mean Corpuscular HGB Conc 31.9 29.9-35.2 g/dL Red Cell Distribution Width 14.8 11.0-15.0 % Platelet Count 282 150-450 10 3/uL Mean Platelet Volume 9.8 9.5-13.5 fL Neutrophils Percent Auto 58.4 43.0-75.0 % Lymphocytes Percent Auto 27.4 20.5-60.0 % Monocytes Percent Auto 12.4 1.7-12.0 % Eosinophils Percent Auto 0.8 0.9-7.0 % Basophils Percent Auto 0.6 0.2-2.0 % Immature Granulocytes Pct Auto 0.4 0.0-0.5 % Neutrophils Absolute Auto 3.1 1.4-6.5 10 3/uL Lymphocytes Absolute Auto 1.4 1.2-3.8 10 3/uL Monocytes Absolute Auto 0.7 0.3-0.8 10 3/uL Eosinophils Absolute Auto 0.0 0.0-0.7 10 3/uL Basophils Absolute Auto 0.0 0.0-0.1 10 3/uL Immature Granulocytes Abs Auto 0.02 0.00-0.03 10 3/uL Performing Lab: see note ML - [facility] Reason For Referral No Information Medications Medication SIG (Take, Route, Frequency, Duration) Notes Start Date End Date Status Jardiance 25 MG 1 tablet Orally Once a day Active Basaglar KwikPen 100 UNIT/ML as directed Subcutaneous Active Atorvastatin Calcium 20 MG 1 tablet Orally Once a day Active Xarelto 20 MG 1 tablet with food Orally Once a day Active Aspirin 81 81 MG 1 tablet Orally Once a day Active Vitamin D3 25 MCG (1000 UT) 1 capsule Orally Once a day Active Lac-Hydrin 12% lotion 1 application externally twice a day Active metFORMIN HCl ER 500 MG 2 tablets orally BID Active Magnesium Oxide 400 MG 1 tablet with food Orally Once a day Active Amiodarone HCl 200 MG 1 tablet Orally Once a day Active Tamsulosin HCl 0.4 MG 2 capsule Orally Once a day Active Acidophilus Probiotic 100 MG as directed Orally Activ e Sertraline HCl 50 MG 1 tablet Orally Onc e a day Active Pantoprazole Sodium 40 MG 1 tablet 1/2 to 1 hour before morning meal Orally Once a day Active Metoprolol Succinate ER 100 MG 1 tablet Orally Once a day Active Problems Problem Type SNOMED Code ICD Code Onset Dates Problem Status W/U Status Risk Notes Problem Foot ulcer due to type 2 diabetes mellitus (4662796039017) Type 2 diabetes mellitus with foot ulcer (E11.621) Active confirmed Problem Non-pressure chronic ulcer of left heel and midfoot limited to breakdown of skin (L97.421) Active confirmed Problem Infected skin ulcer limited to breakdown of skin (L98.491) Active confirmed Problem Foot ulcer due to type 2 diabetes mellitus (2561085713372) Diabetes mellitus with foot ulcer due to multiple causes (E11.621) Active confirmed Problem Hyperglycemia due to type 2 diabetes mellitus (001951277775949) Controlled type 2 diabetes mellitus with hyperglycemia (E11.65) Active confirmed Problem Chronic foot ulcer, limited to breakdown of skin, left (L97.521) Active confirmed Problem Diabetic peripheral neuropathy associated with type 2 diabetes mellitus (8612069027964) Controlled type 2 diabetes mellitus with neuropathy (E11.40) Active confirmed Problem Peripheral vascular disease (930673959) Angiopathy, peripheral (I73.9) Active confirmed Problem 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) Active confirmed Problem Non-pressure chronic ulcer of left heel and midfoot with other specified severity (L97.428) Active confirmed Problem 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) Active confirmed Problem Chronic ulcer of left heel (disorder) (2830141702112084 5) Chronic ulcer of left heel limited to breakdown of skin (L97.421) Active confirmed Encounters Encounter Location Date Provider Diagnosis [facility] [place] [address] [place] [address] 12/11/2024 Juan Swain Plan Of Treatment Pending Test Test Name Order Date CRP 07/22/2024 ESR 07/22/2024 CBC AND AUTO DIFF * 07/22/2024 HGB A1C (GLYCO-HGB) 07/22/2024 CBC AUTO DIFF 10/23/2024 PROF CHEM 8 (BAS METB) 10/23/2024 PTT 10/23/2024 CT FOOT LT WO CON 08/02/2024 XR foot LT min 3V 03/25/2024 XR foot LT min 3V 11/12/2024 Prothrombin Time INR 10/23/2024 XR chest 2V 10/23/2024 VC SEGMENTAL PRESSURES 08/01/2024 Next Appt Details Provider Name:Juan Swain, 12/23/2024 01:00:00 PM, [address] [place], [address], Insurance Providers Payer Name Payer Address Payer Phone Subscriber Number Group Number Insured Name Patient Relationship to Insured Coverage Start Date Coverage End Date [place] [address] [place] [place] [address] [id number] Radha Quiñones Self - patient is the insured 3 MEDICAID [place] [employer] [address] [place], [place] [id number] [phone] Radha Quiñones Self - patient is the insured Medical (General) History Medical History History ICD Code cardiac pacemaker with defibrillator typre 2 DM urinary incontinence without sensory sameera reness excoriation of scalp HTN a fib anemia Surgical History Surgery Date(Month/Year) three toes removed from left foot 2022 cardiac pacemaker/ defibrillation skin cancer removal on right hand 5 cataract extraction- bilateral Hospitalization History Reason Date(Month/Year) back and foot pain
--- OUTSIDE RECORDS SUMMARY | 2024-12-18 13:56 | XMS_ITS | Encounter Summary ---
Author Organization [employer] [facility] Address [facility]-[id number] [address] [place] [address] Care Team Providers Care Non Ferrous Material Handler Name Role Phone Services, [facility] Primary Care Provider Encounter Details Date Type Department Care Team (Late st Contact Info) Description 07/28[facility]2020 [facility] [address] [facility] [place] [phone] Dwain Lynn MD [address] [place] [address] Social History Tobacco Use Types Packs/Day Years [...] Encounter - Marlene Nunez RN - 07/28/2020 5:23 AM EST RN reviewed. Duplicate afterhours report. Marlene Nunez RN 07/28/20 0959 documented in this encounter Plan of Treatment Not on file documented as of this encounter Goals Goal Patient Goal Type Associated Problems Recent Progress Patient-Stated? Author safe transition from hospital to home General Yes Laurie Villar, COAL TRIMMER-MEDICAL CHARGE ENTRY SPECIALIST Note: Evaluation of progress towards goal: discharge home with holiness/friends support. <enter goal here> General Yes Sunita Tomlinson LSW Note: Evaluation of progress towards goal: plan home self care documented as of this encounter Visit Diagnoses Not on filedocumented in this encounter Care Teams Non Ferrous Material Handler Relationship Specialty Start Date End Date Services, [facility] [address] [place], [place] PCP - General Family Medicine 04/16/24 documented as of this encounter
--- OUTSIDE RECORDS SUMMARY | 2024-12-18 13:56 | XMS_ITS | Encounter Summary ---
Author Organization [facility] Sys tem Address [facility]-[id number] [address] [place] [address] Care Team Providers Care Manager Winter Name [facility] Encounter Details Date Type Department Care Team (Late st Contact Info) Description 09/07/2016 Documentation [facility] [address] [place] [address] [address] [place] [phone] Frederic Thorne MD [address] [place] [id number] Social History Tobacco Use Types Packs/Day Years [...] documented as of this encounter Care Teams Manager Winter Relationship Specialty Start Date End Date Services, [facility] [address] [place], [place] PCP - General Family Medicine 04/16/24 documented as of this encounter
--- OUTSIDE RECORDS SUMMARY | 2024-12-18 13:56 | XMS_ITS | Clinical Summary ---
Author Organization [facility] Address [address] [place] [address] Care Team Providers Care Basket Grader Name Role Phone Unavailable Primary Care Provider Unavailabl e Social History Tobacco Use Types Packs/Day Years Used Date Smoking Tobacco: Never Assessed [place] Safety & Environment Answer Date Rec orded Fear of Current or Ex-Partner Not on file Emotionally Abused Not on file 08/24/2023 Physically Abused Not on file 08/24/2023 Sexually Abused Not on file 08/24/2023 Physically or Sexually Abused Not on file Sex and Gender Information Value Date Recorded Sex Assigned at Not on file Legal Sex Male 9:00 PM EDT Gender Identity Not on file Sexual Orientation Not on file Plan of Treatment Not on file
--- OUTSIDE RECORDS SUMMARY | 2024-12-18 13:56 | XMS_ITS | Encounter Summary ---
Author Organization [facility] tem Address [facility] [id number] [address] [place] [address] Care Team Providers Care Paint Pourer Name Role Phone Services, [facility] Primary Care Provider Encounter Details Date Type Department Care Team (Late st Contact Info) Description 01/18/2024 Orders Only [facility] [address] [place] [phone] Emery Haq PA [address] [facility], 2nd Floor [place], [place] [phone] Social History Tobacco Use Types Packs/Day Years [...] got money to buy more. Never True 01/09/2024 Within the past 12 months th e food we bought just didn't last and we didn't have money to get more. Never True 01/09/2024 Purpose - Life Answer Date Recorded Purpose [...] hospital to home General Yes Laurie Villar, CALL MANAGER-AIRCRAFT ENGINE CYLINDER MECHANIC Note: Evaluation of progress towards goal: [...] on filedocumented in this encounter Care Teams Paint Pourer Relationship Specialty Start Date End Date Services, [facility] [address] [place], [place] PCP - General Family Medicine 04/16/24 documented as of this encounter
--- OUTSIDE RECORDS SUMMARY | 2024-12-18 13:56 | XMS_ITS | Referral Summary ---
Author Organization [facility] Address [address] [place] [address] Care Team Providers Care Student Finance Advisor Name Role Phone Unavailable Primary Care Provider [...]
--- OUTSIDE RECORDS SUMMARY | 2024-12-18 13:56 | XMS_ITS ---
Author Organization [facility] Care Team Providers Care Golf Manager Name Role Phone Fadi Mooney Unavailable Unavailable Rafita Arroyo Unavailable Unavailable Allergies and adverse reactions No Known Allergies Care Team Name Role Address Phone Organization Dates Fadi Mooney [facility] [address] [facility] [place], [address], [facility] (Office): : : [facility] 11/22/2018 - 12/15/2018 Rafita Arroyo [address], [address], [facility] (Office): : [facility] 11/22/2018 - 12/15/2018 Immunizations Immunization Status Vaccine Details Vaccine Code CodeSystem Date Notes Influenza cancelled Influenza, high-dose, split virus, quadrivalent, injectable, preservative free 197 CVX created date: 12/04/2018 consent date: 12/04/2018 Resident has received flu vaccine in Fall 2017 TB 1 Step Mantoux (PPD) completed tuberculin skin test; unspecified formulation lotNumber: [id number] expiry: 04/01/2020 Mfg: [employer] Given 0.1 ml Right Forearm intradermally 98 CVX created date: 12/06/2018 consent date: 12/05/2018 administer ed date: 12/06/2018 TB 1 Step Mantoux (PPD) completed tuberculin skin test; unspecified formulation lotNumber: [id number] expiry: 01/30/2020 Mfg: [employer] Given 0.1 ml Left Forearm subcutaneously 98 CVX created date: 11/28/2018 consent date: 11/28/2018 administer ed date: 11/28/2018 TB 1 Step Mantoux (PPD) completed tuberculin skin test; unspecified formulation Given 0.1 ml Right Forearm intradermally 98 CVX created date: 11/23/2018 consent date: 11/22/2018 administer ed date: 11/23/2018 step 1 Prevnar 13 cancelled pneumococcal conjugate vaccine, 13 valent 133 CVX created date: 12/04/2018 consent date: 12/04/2018 PPSV 23 cancelled pneumococcal polysaccharide vaccine, 23 valent 33 CVX created date: 12/04/2018 consent date: 12/04/2018 Mental Status Section Date Assessment Total Score Description 12/15/2018 BIMS 14 cognitively int act CAM 0 No delirium ind icated PHQ-9 01 minimal depress ion 12/05/2018 BIMS 14 cognitively int act CAM 0 No delirium ind icated PHQ-9 01 minimal depress ion Problems Problem # Description Date of onset Resolved Date Code CodeSystem Concern Status 1 DIFFICULTY IN WALKING, NOT ELSEWHERE CLASSIFIED 11/23/[address] active 2 MUSCLE WEAKNESS (GENERALIZED) 11/23/[address] active 3 OTHER PROBLEMS RELATED TO LIFE MANAGEMENT DIFFICULTY 11/23/[address] active 4 UNSPECIFIED ATRIAL FIBRILLATION 11/23/19 19 11/22/[address] completed 5 ATHEROSCLEROTIC HEART DISEASE OF [place] CORONARY ARTERY WITHOUT ANGINA PECTORIS 11/22/[address] active 6 BENIGN PROSTATIC HYPERPLASIA WITH LOWER URINARY TRACT SYMPTOMS 11/22/[address] active 7 ESSENTIAL (PRIMARY) HYPERTENSION 11/22/[address] active 8 HYPERLIPIDEMIA, UNSPECIFIED 11/22/[address] active 9 SNF (CURRENT) USE OF INSULIN 11/22/[address] active 10 PAROXYSMAL ATRIAL FIBRILLATION 11/22/[address] active 11 PRESENCE OF AUTOMATIC (IMPLANTABLE) CARDIAC DEFIBRILLATOR 11/22/[address] active 12 PRESENCE OF CARDIAC PACEMAKER 11/22/[address] active 13 TYPE 2 DIABETES MELLITUS WITHOUT COMPLICATIONS 11/22/[address] active Reason for Referral No Reasons for Referral Entered Social History Social History Observation Description Start Date End Date Code Code System Current Smoking Status Tobacco smoking consumption unknown 033730463 SNOMED CT Sex Assigned At Male 1955 50849-3 [facility] Gender Identity Vital Signs Code Code System Vitals Name Values and Units Timing Information 2339-0 [facility] Blood Sugar Ytrfx=805.0 Units=mg/dL 12/15/2018 35442-7 [facility] Pain Level Value=1.0 12/14/2018 71311-6 [facility] O2 % BldC Oximetry Value=99.0 Units= % 12/14/2018 8867-4 [facility] Heart rate Value=75.0 Units=/min 8310-5 [facility] Body Temperature Value=98.0 Units= F 12/14/2018 8462-4 [facility] Blood Pressure-Diastolic Value=83 Un its=mmHg 12/14/2018 8480-6 [facility] Blood Pressure-Systolic Fbmap=425 Un its=mmHg 12/14/2018 9279-1 [facility] Respiratory Rate Value=16.0 Units=/m in 12/12/2018 68634-2 [facility] Weight Aeuwa=823.2 Units=Lbs 03/2019 8302-2 [facility] Height Value=69.0 Units=Inches 11/22/2018
== END 2024-12-18 13:53 | disposition home or self-care (01) ==
LOC: WC 13:52
PROVIDERS: Visit Provider Podiatrist Foot & Ankle Surgery
DX: E11.621 Type 2 diabetes mellitus with foot ulcer (principal); L97.422 Non-pressure chronic ulcer of left heel and midfoot with fat layer exposed
CPT/HCPCS: G0463

== ENCOUNTER 2024-12-26 13:04 | Outpatient (OUT) | payer MEDICARE, MEDICAID, SELFPAY ==
--- OUTSIDE RECORDS SUMMARY | 2024-11-18 09:00 | XMS_ITS ---
Author Organization [facility] vices Address [address] [place], [place] [phone] Care Team Providers Care Structural Layout Worker Name Role Phone Bradley Bejarano Primary Care Provider REASON FOR VISIT DM & HTN Social History Sex Assigned At : Social History Observation Description Sex Assigned At Male Encounters Encounter Location Date Provider Diagnosis Main [address] [id number] 11/18/2024 Bradley Bejarano Plan Of Treatment Next Appt Details Provider Name:Bradley Bejarano, 02/04/2025 01:45:00 PM, [address] [place], [place], [id number], Progress Notes * Tomas QUIÑONESDOB:1955 (69 yo M)Acc No.[id number]:11/18/2024 Medical Note Patient: Tomas PIPER Provider: Eda Bejarano :1955 A ge:69 Y S ex:Male Date:11/18/2024 Address:[address] [facility] , [address], [place], [id number] Subjective: * Chief Complaints: * 1 . DM & HTN. * Medical History: Objective: * Vitals: Assessment: Plan: * Treatment: * Billing Information: * Visit Code: * Procedure Codes: * Electronic signature of EDWARD Parra on 12/26/2024 at 01:06 PM EDT Sign off status: Pending * Provider: Eda Bejarano Date: 0 11/18/2024 Generated for Printi ng/Faxing/eTransmitting on: 0 12/26/2024 01:06 PM EDT
--- OUTSIDE RECORDS SUMMARY | 2024-12-11 07:51 | XMS_ITS ---
Author Organization [facility] in [place] Address [address] [place] [address] Care Team Providers Care Hourly Sales Staff Name Role Phone Tomas Thapa Primary Care Provider Juan Orantes Unavailable [phone] Allergies No Known Allergies REASON FOR VISIT Blow Mold Machine Operator chart prep Medications Medication SIG (Take, Route, [...] Location Date Provider Diagnosis [facility] [place] [address] [place] [address] 12/11/2024 Juan Swain Plan Of Treatment Next Appt Details Provider Name:Juan Swain, 01/27/2025 01:00:00 PM, [address], [place], [address], Progress Notes * Tomas QUIÑONES JDOB:1955 (69 yo M)Acc No.[id number]:12/11/2024 Patient: Tomas PIPER :1955 A ge:69 Y S ex:Male Address:[address] [place] [address] , [address], [place] [address] Subjective: * Chief Complaints: * N p [...] Date: Generated for Camille clement/Malena/Bc on: 0 12/26/2024 01:07 PM EDT
--- OUTSIDE RECORDS SUMMARY | 2024-12-26 13:06 | XMS_ITS | Encounter Summary ---
Author [facility] Address [facility] [place] [facility]-[id number] [address] [place] [address] Care Team Providers Care Chief Medical Physicist Name Role Phone Services, [facility] Primary Care Provider Encounter Details Date Type Department Care Team (Late st Contact Info) Description 12/16/2021 Telephone [facility] [address] [place] [phone] Stacy Saldana, SANTY Social History Tobacco Use [...] hospital to home General Yes Laurie Villar, MECHANICAL INSPECTOR-CULTURAL HISTORIAN Note: Evaluation of progress towards goal: discharge home with adventist/friends support. <enter goal here> General Yes Sunita Tomlinson, ALANIS Note: Evaluation of progress towards goal: plan home self care SNF General Yes Cathryn Kapadia, CORRECTIONAL SUPERVISOR LIEUTENANT Note: Evaluation of progress towards goal: Patient likely will discharge to a SNF documented as of this encounter Visit Diagnoses Not on filedocumented in this encounter Care Teams Chief Medical Physicist Relationship Specialty Start Date End Date [facility], [facility] [address] [place], [place] PCP - General Family Medicine 04/16/24 documented as of this encounter
--- OUTSIDE RECORDS SUMMARY | 2024-12-26 13:06 | XMS_ITS | Encounter Summary ---
Author Organization [facility] Address [facility]-[id number] [address] [place] [address] Care Team Providers Care Newscast Producer Name Role Phone Services, [facility] Primary Care Provider Encounter Details Date Type Department Care Team (Late st Contact Info) Description 08/31/2021 Orders Only [facility] [address] [place] [phone] Mariana Wade, GEAR CUTTING MACHINE OPERATOR-DOLL REPAIRER [address] [place], [place] [phone] AICD present, double chamber- Medtronic Social History [...] of progress towards goal: discharge home with rastafari/friends support. <enter goal here> General Yes Sunita [...] [employer] documented in this encounter Care Teams Newscast Producer Relationship Specialty Start Date End Date Services, [facility] [address] [place], [place] PCP - General Family Medicine 04/16/24 documented as of this encounter
--- OUTSIDE RECORDS SUMMARY | 2024-12-26 13:06 | XMS_ITS | Encounter Summary ---
Author Organization [facility] Address [facility]-[id number] [address] [place] [address] Care Team Providers Care Dehydrator Tender Name Role Phone Services, [facility] Primary Care Provider Encounter Details Date Type Department Care Team (Late st Contact Info) Description 09/04/2024 Orders Only [facility] [address] [place] [phone] Chula Santiago CMA AICD present, double chamber [...] to home General Yes Villar, Laurie L, SUPERVISOR FUR FLOOR WORKER-SINGE MACHINE OPERATOR Note: Evaluation of progress towards goal: discharge home with jew/friends support. <enter goal here> General Yes Sunita Tomlinson, ALANIS Note: Evaluation of progress towards goal: plan home self care SNF General Yes Cathryn Kapadia, WEDDING COORDINATOR Note: Evaluation of progress towards goal: Patient likely will discharge to a SNF documented as of this encounter Procedures Procedure Name Priority Date/Time Associated Diagnosis Comments DEVICE INTERROGATION Routine 09/04/2024 AICD present, double chamber documented in this encounter Results * Device Interrogation (09/04/2024) Anatomical Region Laterality Modality Other 09/04/2024 Vandana Brar APRN-SINGE MACHINE OPERATOR CV CARDIAC SERVICES ORD ERABLES Final Result documented in this encounter Visit Diagnoses Diagnosis AICD present, double chamber documented in this encounter Care Teams Dehydrator Tender Relationship Specialty Start Date End Date [facility], [facility] [address] [facility] [place] [place] PCP - General Family Medicine 04/16/24 documented as of this encounter
--- OUTSIDE RECORDS SUMMARY | 2024-12-26 13:06 | XMS_ITS | Encounter Summary ---
Author Organization [facility] Address [facility] [id number] [address] [place] [address] Care Team Providers Care Registered Pharmacist Name Role Phone Services, [facility] Primary Care Provider Reason for Visit * Reason Onset Date Comments Med Refill 11/25/2022 Encounter Details Date Type Department Care Team (Late st Contact Info) Description 11/25/2022 Refill [facility] [address] [place] [phone] Zac Sherman, SANTY Med Refill Social History Tobacco Use Types [...] hospital to home General Yes Laurie Villar, BILINGUAL RESEARCH INTERVIEWER-POTTERY DECORATION DESIGNER Note: Evaluation of progress towards goal: discharge home with rastafari/friends support. <enter goal here> General Yes Sunita Tomlinson, STORE STOCKER Note: Evaluation of progress towards goal: plan home self care SNF General Yes Cathryn Kapadia, STORE STOCKER Note: Evaluation of progress towards goal: Patient likely will discharge to a SNF documented as of this encounter Results * (ABNORMAL) CBC without diff (04/06/2023 12:40 PM EDT) White Blood Cells 8.1 4.0 - 11.0 X10E9/L 04/06/2023 8:17 PM EDT [facility] RBC count 4.49 4.10 - 5.70 X10E12/L 04/06/2023 8:17 PM EDT [facility] Hemoglobin 13.3 13.0 - 17.0 g/dL 04/06/2023 8:17 PM EDT [facility] Hematocrit 41.1 39 - 49 % 04/06/2023 8:17 PM EDT [facility] MCV 92 80 - 100 fL 04/06/2023 8:17 PM EDT [facility] MCH 29.5 27 - 34 pg 04/06/2023 8:17 PM EDT [facility] MCHC 32.3 32 - 36 g/dL 04/06/2023 8:17 PM EDT [facility] RDW 15.6(H) 11.5 - 15.0 % 04/06/2023 8:17 PM EDT [facility] Platelets 375 150 - 450 X10E9/L 04/06/2023 8:17 PM EDT [facility] MPV 7.9 7 - 12 fL 04/06/2023 8:17 PM EDT [facility] Blood / Unknown 04/06/2023 1 2:40 PM EDT 04/06/2023 12:41 PM EDT us Wilmer Conti BILINGUAL RESEARCH INTERVIEWER-POTTERY DECORATION DESIGNER LAB BLOOD ORDERABLES Final Result [facility] [address] [facility] [place] [address] documented in this encounter Visit Diagnoses Diagnosis Atrial fibrillation with RVR (CMS-HCC)- Primary documented in this encounter Care Teams Registered Pharmacist Relationship Specialty Start Date End Date [facility] [address] [place], [place] PCP - General Family Medicine 04/16/24 documented as of this encounter
--- OUTSIDE RECORDS SUMMARY | 2024-12-26 13:06 | XMS_ITS | Encounter Summary ---
Author Organization [facility] [employer] [facility] tem Address [facility]-[id number] [address] [place] [address] Care Team Providers Care Veterinary Pharmacologist Name Role Phone Services, [facility] Primary Care Provider Encounter Details Date Type Department Care Team (Late st Contact Info) Description 11/02/2021 Telephone [facility] [address] [place] [phone] Stacy Saldana, SANTY Social History Tobacco Use [...] hospital to home General Yes Laurie Villar, INSTRUCTOR WATCH ASSEMBLY-MAINTENANCE ANALYST Note: Evaluation of progress towards goal: discharge home with advent/friends support. <enter goal here> General Yes Sunita Tomlinson, PARKS RECREATION COORDINATOR Note: Evaluation of progress towards goal: plan home self care SNF General Yes Cathryn Kapadia, PARKS RECREATION COORDINATOR Note: Evaluation of progress towards goal: Patient likely will discharge to a SNF documented as of this encounter Visit Diagnoses Not on filedocumented in this encounter Care Teams Veterinary Pharmacologist Relationship Specialty Start Date End Date [facility], [facility] [address] [place], [place] PCP - General Family Medicine 04/16/24 documented as of this encounter
--- OUTSIDE RECORDS SUMMARY | 2024-12-26 13:06 | XMS_ITS | Encounter Summary ---
Author Organization [facility] [employer] [facility] Address [id number] [address] [place] [address] Care Team Providers Care Pharmacist Per Diem Name Role Phone Services, [facility] Primary Care Provider Encounter Details Date Type Department Care Team (Late st Contact Info) Description 12/07/2021 Orders Only [facility] [address] [place] [phone] Janelle James CMA AICAlexa present, double chamber [...] hospital to home General Yes Laurie Villar, YARD SUPERVISOR COTTON GIN-SHEAR OPERATOR Note: Evaluation of progress towards goal: discharge home with taoism/friends support. <enter goal here> General Yes Sunita Tomlinson LSW Note: Evaluation of progress towards goal: plan home self care SNF General Yes Cathryn Kapadia, CHEMIST INTERN Note: Evaluation of progress towards goal: Patient likely will discharge to a SNF documented as of this encounter Procedures Procedure Name Priority Date/Time Associated Diagnosis Comments DEVICE INTERROGATION Routine 12/07/2021 AICD present, double chamber documented in this encounter Results * Device Interrogation (12/07/2021) Anatomical Region Laterality Modality Other Mariana Wade APRN-SHEAR OPERATOR CV CARDIAC SERVICES OR DERABLES Final Result documented in this encounter Visit Diagnoses Diagnosis AICD present, double chamber documented in this encounter Care Teams Pharmacist Per Diem Relationship Specialty Start Date End Date Services, [facility] [address] [place], [place] PCP - General Family Medicine 04/16/24 documented as of this encounter
--- OUTSIDE RECORDS SUMMARY | 2024-12-26 13:06 | XMS_ITS | Clinical Summary ---
Author Organization [facility] Address [id number] [address] [place] [address] Care Team Providers Care Beadworker Name Role Phone Services, [facility] Primary Care Provider Allergies No known active allergies Medications EASY TOUCH 31 gauge x 5/16 needle 01/21/20 18 Active metFORMIN XR (GLUCOPHAGE-XR) 500 mg 24 hr tablet Take 2 tablets (1,000 mg total) by mouth in the morning and 2 tablets (1,000 mg total) before bedtime. 01/24/20 18 Active aspirin 81 mg Take 1 tablet (81 mg total) by mouth in the morning. Active sertraline (ZOLOFT) 50 mg tablet Take 1 tablet (50 mg total) by mouth in the morning. Active empagliflozin (JARDIANCE) 25 mg tablet tablet Take 1 tablet (25 mg total) by mouth in the morning. Active acetaminophen (TYLENOL ARTHRITIS) 650 mg 8 hr tablet Take 1 tablet (650 mg total) by mouth every 8 (eight) hours as needed for pain. Active metoprolol succinate XL (TOPROL XL) 100 mg 24 hr tabletIndication s:Ventricular tachycardia (CMS-HCC),Atrial fibrillation with RVR (CMS-HCC),V-tach (CMS-HCC) TAKE 1 TABLET (100 MG TOTAL) BY MOUTH IN THE MORNING 90 tablet 07/22/19 25 Active amiodarone (PACERONE) 200 mg tablet Take 1 tablet (200 mg total) by mouth in the morning. 90 tablet 3 09/05/19 25 Active atorvastatin (LIPITOR) 20 mg tablet Take 1 tablet (20 mg total) by mouth in the morning. 09/03/19 25 Active XARELTO 20 mg tablet tabletIndication s:Atrial fibrillation, unspecified type (CMS-HCC) TAKE 1 TABLET (20 MG TOTAL) BY MOUTH IN THE MORNING 90 tablet 2 12/20/19 25 Active XARELTO 20 mg tablet tabletIndication s:Atrial fibrillation, unspecified type (CMS-HCC) TAKE 1 TABLET (20 MG TOTAL) BY MOUTH IN THE MORNING 90 tablet 1 02/21/20 24 025 Discontinued Active Problems Problem Noted Date Diagnosed Date [...] (05/07/2020): Added automatically from request for surgery [id number] Atrial flutter 01/01/2019 Atherosclerosis of tonawanda co ronary artery 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 angina pectoris 12/04/2018 Pure hypercholesterolemia 12/04/2018 AICD present, double chamber- Medtronic 12/05/19 19 Atrial fibrillation with RVR 11/14/2018 V-tach 11/14/2018 Overview (11/19/2018): Added automatically from request for surgery [id number] Type 2 diabetes mellitus wit h skin [...] Encounters Date Type Department Care Team Description 12/19/2024 Refill [facility] [address] [place] [phone] Espino, Emery, EMBEDDED SOFTWARE TEST ENGINEER-CHIEF SUSTAINABILITY OFFICER Med Refill 11/14/2024 12:16 AM EDT - 11/14/2024 2:38 AM EDT Emergency [facility] - Emergency [address] [place] [address] Winston Dent MD Pneumonia due to infectious organism, unspecified laterality, unspecified part of lung (Primary Dx); Generalized weakness; Pleural effusion Discharge Disposition: Home 11/14/2024 Travel 11/04/2024 9:38 AM EDT - 11/04/2024 11:59 PM EDT Hospital Encounter [facility] - Stress Imaging [address] [place] [address] Vandana Brar APRN-CNP Discharge Disposition: Still a Patient 11/04/2024 8:56 AM EDT - 11/04/2024 9:37 AM EDT Hospital Encounter [facility] - Cardiovascular [address] [place] [address] Vandana Brar APRN-CNP Discharge Disposition: Still a Patient 11/04/2024 7:50 AM EDT - 11/04/2024 8:55 AM EDT Hospital Encounter [facility] - Stress Imaging [address] [place] [address] Vandana Brar APRN-CNP Discharge Disposition: Still a Patient 11/04/2024 7:50 AM EDT - 11/04/2024 8:55 AM EDT Hospital Encounter [facility] - Stress Imaging [address] [place] [address] Vandana Brar APRN-CNP Preoperative clearance; Coronary artery disease involving tonawanda coronary artery 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 angina pectoris Discharge Disposition: Still a Patient 11/04/2024 Travel 10/21/2024 [facility] [address] [facility] [phone] Vandana Brar APRN-CNP Preoperative clearance (Primary Dx); Coronary artery disease involving tonawanda coronary artery 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 angina pectoris 10/15/2024 Telephone [facility] [address] [facility] [address] [place] [address] Phylicia Torres LPN Surgical Or Dental Clearance 10/10/2024 11:00 AM EDT Office Visit [facility] V[facility] [address] [place] [address] Gretta Whitlock MD Critical limb ischemia of left lower extremity with gangrene ([facility]) (Primary Dx) 10/10/2024 Travel 09/27/2024 1:57 PM EDT - 09/27/2024 2:39 PM EDT Surgery [facility] - Cardiac Cath [address] [place] [address] Gretta Whitlock MD ANGIO LOWER EXT 09/27/2024 11:48 AM EDT - 09/27/2024 7:35 PM EDT Hospital Encounter [facility] - CVU-IVU [address] [place] [address] Gretta Whitlock MD Critical limb ischemia of left lower extremity with gangrene ([facility]-HCC) Discharge Disposition: Home 09/27/2024 Travel 09/26/2024 9:40 AM EDT Office Visit [facility] Vascular Surgery [address] [place] [phone] Gretta Whitlock MD Critical limb ischemia of left lower extremity with gangrene (CMS-HCC) (Primary Dx); PVD (peripheral vascular disease) (CMS-HCC) from Last 3 Months Immunizations Immunization Administration [...] 2019 Fall Risk Screening 2019 COVID-19 Vaccine (4 - 2023-2 5 season) 2024 05/06/2021, 10/01/2020, 09/03/2020 Influenza Vaccine 03/03/2025 04/11/2023, , 04/19/2021, Additional history exists Adult BMI Screening 11/04/2025 11/04/2024 Tobacco Screening 11/14/2025 11/14/2024 Goals Goal Patient Goal Type Associated Problems Recent Progress Patient-Stated? Author safe transition from hospital to home General Yes Laurie Villar, EMBEDDED SOFTWARE TEST ENGINEER-CHIEF SUSTAINABILITY OFFICER Note: Evaluation of progress towards goal: discharge home with jehovah's witness/friends support. <enter goal here> General Yes Sunita Tomlinson, POWER GENERATION ENGINEER Note: Evaluation of progress towards goal: plan home self care SNF General Yes Cathryn Kapadia, POWER GENERATION ENGINEER Note: Evaluation of progress towards goal: Patient likely will discharge to a SNF Medical Devices Implanted Type Area Endocrinology Physician Device Identifier Shelf Expiration Date Model / Serial / Lot Ld Pcng 55cm Rv Sq Scr S Df-4 - [id number] - [id number] Implanted:Qty : 1 on 11/20/2018 by Shayna Betancourt MD at [facility] Implant Lead Left: Chest [employer]TR[employer] CARD RHYTHM DEVICES 09/11/2020 [id number] / [id number] / Lead Capsure Fix Novus 5076-45 - [id number] - [id number] Implanted:Qty : 1 on 11/20/2018 by Shayna Betancourt MD at [facility] Implant Lead Left: Chest [employer]TR[employer]IC [facility] 09/17/2020 5076-45 / [id number] / Lead Capsure Fix Novus 5076-52 - [id number] - [id number] Implanted:Qty : 1 on 07/21/2020 by Yoni Espinoza MD at [facility] Implant Lead Left: Chest [employer]TR[employer] CARD RHYTHM DEVICES 04/03/2022 5076-52 / [id number] / Dfbr Crd Evera Mri Xt Dr - [id number] - [id number] Implanted:Qty : 1 on 11/20/2018 by Shayna Betancourt MD at [facility] Other Implant Left: Chest MEDTRONIC CARD RHYTHM DEVICES 02/14/2020 [id number] / [id number] / Explanted Type Area Endocrinology Physician Device Identifier Shelf Expiration Date Model / Serial / Lot Sys Crd Rvl Linq Rpl [id number] - [id number] - [id number] Implanted:Qty : 1 on 11/16/2018 by Rafita Garcia MD at [facility] Other Implant Left: Chest MEDTRONIC CARD RHYTHM DEVICES 10/15/2019 [id number] / [id number] / Procedures Procedure Name Priority Date/Time Associated [...] EDT Preoperative clearance Coronary artery disease involving tonawanda coronary artery 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 angina pectoris [place] INTERROGATION EVAL REMOTE </90 D 1/2/COMMUTATOR OPERATOR LD DFB Routine 11/03/2024 1:27 AM EDT [...] UREA (BUN) Routine 09/27/2024 12:34 PM EDT from Last 3 Months Results * Troponin I, High Sensitivity 1 Hour (11/14/2024 1:51 AM EDT) TROPONIN I, HIGH SENSITIVITY 8 <21 ng/L 11/14/2024 2:20 AM EDT [facility] Blood Venous blood / Unknown 11/14/2024 1:51 AM EDT 11/14/2024 1:52 AM EDT us Winston Dent MD LAB BLOOD ORDERABLES Final R esult [facility] [address] [place] [address], * X-ray foot left minimum 3 views [...] Fausto Angulo MD on 11/14/2024 1:19 AM us Winston Dent MD IMG DIAGNOSTIC IMAGING ORDER STERLING Final Result * Troponin I, High Sensitivity 0 Hour (11/14/2024 12:35 AM EDT) Pathologist [facility] TROPONIN I, HIGH SENSITIVITY 7 <21 ng/L 11/14/2024 1:03 AM EDT [facility] Blood Venous blood / Unknown 11/14/2024 12:35 AM EDT 11/14/2024 12:36 AM EDT us Winston Dent MD LAB BLOOD ORDERABLES Final R esult [facility] [address] [place] [address], * (ABNORMAL) CBC auto differential (11/14/2024 12:35 AM EDT) Pathologist [facility] WBC 9.0 4 - 11 x10E9/L 11/14/2024 12:46 AM EDT [facility] RBC Count 3.85(L) 4.1 - 5.7 X10E12/L 11/14/2024 12:46 AM EDT [facility] Hemoglobin 11.4(L) 13 - 17 g/dL 11/14/2024 12:46 AM EDT [facility] Hematocrit 34.6(L) 39 - 50 % 11/14/2024 12:46 AM EDT [facility] MCV 90 80 - 100 fL 11/14/2024 12:46 AM EDT [facility] MCH 29.6 27 - 34 pg 11/14/2024 12:46 AM EDT [facility] MCHC 32.9 32 - 36 g/dL 11/14/2024 12:46 AM EDT [facility] RDW 16.3(H) 11.5 - 15 % 11/14/2024 12:46 AM EDT [facility] Platelet Count 305 150 - 450 X10E9/L 11/14/2024 12:46 AM EDT [facility] MPV 7.6 7 - 12 fL 11/14/2024 12:46 AM EDT [facility] Neutrophils % 70.2 % 11/14/2024 12:46 AM EDT [facility] Lymphocytes % 16.3 % 11/14/2024 12:46 AM EDT [facility] Monocytes % 12.7 % 11/14/2024 12:46 AM EDT [facility] Eosinophils % 0.2 % 11/14/2024 12:46 AM EDT [facility] Basophils % 0.6 % 11/14/2024 12:46 AM EDT [facility] Neutrophils Absolute (A) 6.4 1.5 - 6.6 10*3/uL 11/14/2024 12:46 AM EDT [facility] Lymphocytes Absolute 1.5 1.0 - 3.5 10*3/uL 11/14/2024 12:46 AM EDT [facility] Monocytes Absolute 1.1(H) 0.0 - 0.9 10*3/uL 11/14/2024 12:46 AM EDT [facility] Eosinophils Absolute 0.0 0.0 - 0.4 10*3/uL 11/14/2024 12:46 AM EDT [facility] Basophils Absolute 0.1 0.0 - 0.2 10*3/uL 11/14/2024 12:46 AM EDT [facility] Differential Type AUTOMATED DIFFERENTIAL 11/14/2024 12:46 AM EDT [facility] Blood Venous blood / Unknown 11/14/2024 12:35 AM EDT 11/14/2024 12:36 AM EDT us Winston Dent MD LAB BLOOD ORDERABLES Final R esult [address] [place] [address], [place] * Magnesium (11/14/2024 12:35 AM EDT) MAGNESIUM 2.1 1.8 - 2.6 mg/dL 11/14/2024 12:55 AM EDT [facility] Blood Venous blood / Unknown 11/14/2024 12:35 AM EDT 11/14/2024 12:36 AM EDT us Winston Dent MD LAB BLOOD ORDERABLES Final R esult Performing Organization Address City/[facility]/ZIP Co de Phone Number [address] [place] [address], [place] * Lipase (11/14/2024 12:35 AM EDT) LIPASE 36 17 - 40 U/L 11/14/2024 12:53 AM EDT [facility] Blood Venous blood / Unknown 11/14/2024 12:35 AM EDT 11/14/2024 12:36 AM EDT us Winston Dent MD LAB BLOOD ORDERABLES Final R esult Performing Organization Address City/[facility]/ZIP Co de Phone Number [address] [place] [address], [place] * (ABNORMAL) Comprehensive metabolic panel (11/14/2024 12:35 AM EDT) SODIUM 134 134 - 146 mmol/L 11/14/2024 12:55 AM EDT [facility] POTASSIUM 4.4 3.5 - 5.0 mmol/L 11/14/2024 12:55 AM EDT [facility] CHLORIDE 100 98 - 109 mmol/L 11/14/2024 12:55 AM EDT [facility] CARBON DIOXIDE 24 22 - 32 mmol/L 11/14/2024 12:55 AM EDT [facility] ANION GAP 10 5 - 15 mmol/L 11/14/2024 12:55 AM EDT [facility] BLOOD UREA NITROGEN 23 5 - 27 mg/dL 11/14/2024 12:55 AM EDT [facility] CREATININE 1.49(H) 0.70 - 1.20 mg/dL 11/14/2024 12:55 AM EDT [facility] Comment:METHOD TRACEABLE TO IDMS STANDARD GLUCOSE 246(H) 65 - 99 mg/dL 11/14/2024 12:55 AM EDT [facility] CALCIUM 8.8 8.5 - 10.5 mg/dL 11/14/2024 12:55 AM EDT [facility] TOTAL PROTEIN 7.2 6.0 - 8.0 g/dL 11/14/2024 12:55 AM EDT [facility] ALBUMIN 3.9 3.2 - 5.3 g/dL 11/14/2024 12:55 AM EDT [facility] ALKALINE PHOSPHATASE 43 39 - 130 U/L 11/14/2024 12:55 AM EDT [facility] AST 19 <=41 U/L 11/14/2024 12:55 AM EDT [facility] ALT 11 <=40 U/L 11/14/2024 12:55 AM EDT [facility] BILIRUBIN,TOTAL 0.5 0.3 - 1.2 mg/dL 11/14/2024 12:55 AM EDT [facility] EGFR Non-Race Dependent 50(L) >=60 ml/min/1.7 3sq.m 11/14/2024 12:55 AM EDT [facility] Comment: eGFR not reported due to non-numeric value for Creatinine. Reported eGFR is based on the CKD-EPI 2020 equation that does not use a race coefficient. Blood Venous blood / Unknown 11/14/2024 12:35 AM EDT 11/14/2024 12:36 AM EDT Winston Dent MD LAB BLOOD ORDERABLES Final R esult [address] [address], * Light Blue Top (11/14/2024 12:34 AM EDT) Extra Tube Auto Resulted 11/14/2024 2:02 AM EDT [facility] Blood Venous blood / Unknown 11/14/2024 12:34 AM EDT 11/14/2024 12:36 AM EDT Winston Dent MD LAB BLOOD ORDERABLES Final R esult Performing Organization Address City/[facility]/ZIP Co de Phone Number [address] [address], [place] * D-Dimer (11/14/2024 12:34 AM EDT) D DIMER <150 1 - 255 ug/mL 11/14/2024 2:03 AM EDT [facility] Comment:Results <255 ng/mL D DU: The presensence [...] ORDERABLES Final R esult Performing Organization Address City/[facility] Co de Phone Number [address] [place] [address], [place] * (ABNORMAL) Bedside Glucose *Place/Obtain serum glucose if >500 per glucometer. (11/14/2024 12:22AM EDT) Bedside Glucose (POC) 249(H) 65 - 99 mg/dL 11/14/2024 12:24 AM EDT [facility] arterial/capilla ry 11/14/2024 12:22 AM EDT 11/14/2024 12:24 AM EDT Winston Dent MD POINT OF CARE TEST ORDERABLE S Final Result Performing Organization Address [facility] Co de Phone Number [address] [place] [address], [place] * ECG 12 lead (11/14/2024 12:20 AM EDT) 11/14/2024 12:2 0 AM EDT Winston Dent MD ECG ORDERABLES Final Result Performing Organization Address City/[facility]/ZIP Co de Phone Number [email or web address] * Nuc [...] systolic cavity size is normal. Vandana Brar EMBEDDED SOFTWARE TEST ENGINEER-CHIEF SUSTAINABILITY OFFICER CV STRESS ORDERABLES Fi nal Result * Remote Device Check (11/03/2024 1:27 AM EDT) Anatomical Region Laterality Modality Other 11/03/2024 1:27 AM EDT Yoni Espinoza MD HEALTH MAINTENANCE Final Result * VASCULAR INVASIVE, FINANCIAL ADVOCATE TIB/PER INIT VESSEL LT (CV), FINANCIAL ADVOCATE TIB/PER INIT VESSEL RT (CV) (09/27/2024 4:18 PM EDT) Anatomical Region Laterality Modality X-Ray Angiograph y Narrative 09/28/2024 5:54 PM EDT Recommendations: Wound care. Risk factors modification. Dual antiplatelet therapy. Procedure Details Patient Name: Tomas Frausto Medical Record: [id number] Date of Operation: 09/27/2024 Preoperative Diagnosis: Left [...] 3 mm balloon Surgeon: Gretta Whitlock MD Lithograph Press Feeder: None Anesthesia: Conscious sedation then under my [...] at a toe amputation that was nonhealing oracle business analyst and the patient chose for evaluation noninvasive testing shows evidence of occlusive disease mostly in the tibials. Operative Details: The patient was taken back to the operating room roving tester laboratory placed in the supine position appropriate cardiopulmonary monitors were set. Conscious sedation was induced. Both groins were prepped and draped in the usual sterile surgical fashion. After time-out and safety pause under ultrasound guidance the right common femoral artery was accessed using Seldinger maneuver. Five [place] sheath was placed. Omni flush catheter was [...] PM EDT 09/27/2024 12:37 PM EDT Gretta Whitolck MD POINT OF CARE TEST ORDERABLES Final Result [facility] * POCT urea (BUN) (09/27/2024 12:34 PM EDT) Portable BUN 19 6 - 27 mg/dL 09/27/2024 3:06 PM EDT [facility] Blood / Unknown 09/27/2024 1 2:34 PM EDT 09/27/2024 12:37 PM EDT Gretta Whitlock MD POINT OF CARE TEST ORDERABLES Final Result [facility] from Last 3 Months Insurance MEDICARE MEDICAID [...] 1:57 PM 11/23/2017 5:15 PM Care Teams Beadworker Relationship Specialty Start Date End Date Services, [facility] [address] [place] PCP - General Family Medicine 04/16/24
--- OUTSIDE RECORDS SUMMARY | 2024-12-26 13:06 | XMS_ITS | Encounter Summary ---
Author Organization [facility] [employer] tem Address [id number] [address] [place] [address] Care Team Providers Care Financial Systems Administrator Name Role Phone Services, [facility] Primary Care Provider Encounter Details Date Type Department Care Team (Late st Contact Info) Description 10/11/2021 Abstract [facility] [address] [place] [phone] External, Scanning Provider Social History Tobacco Use [...] hospital to home General Yes Laurie Villar, VOLUNTEER SERVICES ASSISTANT-CAUSTIC LIQUOR MAKER Note: Evaluation of progress towards goal: discharge home with jainism/friends support. <enter goal here> General Yes Sunita Tomlinson LSW Note: Evaluation of progress towards goal: plan home self care SNF General Yes Cathryn Kapadia, MEDICAL GENETICIST Note: Evaluation of progress towards goal: Patient [...] on filedocumented in this encounter Care Teams Financial Systems Administrator Relationship Specialty Start Date End Date [facility], [facility] [address] [place], [place] PCP - General Family Medicine 04/16/24 documented as of this encounter
--- OUTSIDE RECORDS SUMMARY | 2024-12-26 13:06 | XMS_ITS | Encounter Summary ---
Author Organization [facility] Address [id number] [address] [place] [address] Care Team Providers Care Slicer Machine Operator Name Role Phone Services, [facility] Primary Care Provider Reason for Visit * Reason Onset Date Comments Appointment 08/26/2024 Encounter Details Date Type Department Care Team (Late st Contact Info) Description 08/[facility]/[address] [facility] [address] [place] [phone] Marisela Yi [facility] Appointment Social History Tobacco Use Types Packs/Day [...] hospital to home General Yes Laurie Villar, SCHOOL PRINCIPAL-MUTUEL TELLER Note: Evaluation of progress towards goal: discharge home with pentecostalism/friends support. <enter goal here> General Yes Sunita Tomlinson, ALANIS Note: Evaluation of progress towards goal: plan home self care SNF General Yes Cathryn Kapadia, TRANSITION MGR RN Note: Evaluation of progress towards goal: Patient likely will discharge to a SNF documented as of this encounter Visit Diagnoses Not on filedocumented in this encounter Care Teams Slicer Machine Operator Relationship Specialty Start Date End Date [facility], [facility] [address] [facility] [place] [place] PCP - General Family Medicine 04/16/24 documented as of this encounter
--- OUTSIDE RECORDS SUMMARY | 2024-12-26 13:06 | XMS_ITS | Encounter Summary ---
Author Organization [facility] Address [id number] [address] [place] [address] Care Team Providers Care Library Supervisor Name Role Phone Services, [facility] Primary Care Provider Encounter Details Date Type Department Care Team (Late st Contact Info) Description 09/21/2021 Telephone [facility] [address] [place] [phone] Stacy Saldana, SANTY Social History Tobacco Use [...] to home General Yes Villar, Laurie L, HYDRAULIC PUNCH PRESS OPERATOR-GROUND CREW SUPERVISOR Note: Evaluation of progress towards goal: discharge home with sikhism/friends support. <enter goal here> General Yes Sunita Tomlinson, DIMENSION STONE QUARRY SUPERVISOR Note: Evaluation of progress towards goal: plan home self care SNF General Yes Cathryn Kapadia, DIMENSION STONE QUARRY SUPERVISOR Note: Evaluation of progress towards goal: Patient likely will discharge to a SNF documented as of this encounter Visit Diagnoses Not on filedocumented in this encounter Care Teams Library Supervisor Relationship Specialty Start Date End Date [facility], [facility] [address] [place], [place] PCP - General Family Medicine 04/16/24 documented as of this encounter
--- OUTSIDE RECORDS SUMMARY | 2024-12-26 13:06 | XMS_ITS | Encounter Summary ---
Author Organization [facility] Address [id number] [address] [place] [address] Care Team Providers Care Paradichlorobenzene Machine Operator Name Role Phone Services, [facility] Primary Care Provider Encounter Details Date Type Department Care Team (Late st Contact Info) Description 08/31/2021 Orders Only [facility] [address] [facility] [address] [place] [phone] External, Scanning Provider Social History Tobacco Use [...] hospital to home General Yes Laurie Villar, SURVIVAL SPECIALIST-BI LEAD Note: Evaluation of progress towards goal: discharge home with islam/friends support. <enter goal here> General Yes Sunita Tomlinson, RADIO TELEVISION ANNOUNCER Note: Evaluation of progress towards goal: plan home self care SNF General Yes Cathryn Kapadia, RADIO TELEVISION ANNOUNCER Note: Evaluation of progress towards goal: Patient [...] Edited Result - Final Performing Organization Address [facility] Co de Phone Number MANUALLY TRANSCRIBED [...] on filedocumented in this encounter Care Teams Paradichlorobenzene Machine Operator Relationship Specialty Start Date End Date Services, [facility] [address] [place], [place] PCP - General Family Medicine 04/16/24 documented as of this encounter
--- OUTSIDE RECORDS SUMMARY | 2024-12-26 13:06 | XMS_ITS | Encounter Summary ---
Author Organization [facility] tem Address [facility]-[id number] [address] [place] [address] Care Team Providers Care Sales And Marketing Representative Name Role Phone Services, [facility] Primary Care Provider Encounter Details Date Type Department Care Team (Late st Contact Info) Description 11/15/2021 Telephone [facility] [address] [place] [id number] Stacy Saldana, SANTY Social History Tobacco Use [...] to home General Yes Villar, Laurie L, WOODWORKING SHOP HAND-BALLISTICS PROFESSOR Note: Evaluation of progress towards goal: discharge home with yazidi/friends support. <enter goal here> General Yes Sunita Tomlinson, HOOK UP DRIVER Note: Evaluation of progress towards goal: plan home self care SNF General Yes Cathryn Kapadia, HOOK UP DRIVER Note: Evaluation of progress towards goal: Patient likely will discharge to a SNF documented as of this encounter Visit Diagnoses Not on filedocumented in this encounter Care Teams Sales And Marketing Representative Relationship Specialty Start Date End Date [facility], [facility] [address] [place], [place] PCP - General Family Medicine 04/16/24 documented as of this encounter
--- OUTSIDE RECORDS SUMMARY | 2024-12-26 13:06 | XMS_ITS | Encounter Summary ---
Author Organization [facility] Address [id number] [address] [place] [address] Care Team Providers Care Flute Polisher Name Role Phone Services, [facility] Primary Care Provider Reason for Visit * Reason Comments Med Refill Encounter Details Date Type Department Care Team (Late st Contact Info) Description 12/19/2024 Refill [facility] [address] [place] [phone] Emery Espino, NURSE'S COMPANION-TURNTABLE MAN [address] [place], [place] [phone] Med Refill Social History Tobacco Use Types [...] encounter Miscellaneous Notes * Telephone Encounter - Mariana Interiano RN - 12/19/2024 10:52 AM EDT Images from the original note were not included. Last OV 09/04/2024 CMP and CBC 11/14/2024 documented in this encounter Plan of Treatment Not on file documented as of this encounter Goals Goal Patient Goal Type Associated Problems Recent Progress Patient-Stated? Author safe transition from hospital to home General Yes Laurie Villar, NURSE'S COMPANION-TURNTABLE MAN Note: Evaluation of progress towards goal: discharge home with caodaism/friends support. <enter goal here> General Yes Sunita Tomlinson LSW Note: Evaluation of progress towards goal: plan home self care SNF General Yes Cathryn Kapadia LSW Note: Evaluation of progress towards goal: Patient likely will discharge to a SNF documented as of this encounter Visit Diagnoses Diagnosis Atrial fibrillation, unspecified type (CMS-HCC) documented in this encounter Care Teams Flute Polisher Relationship Specialty Start Date End Date [facility], [facility] [address] [place] PCP - General Family Medicine 04/16/24 documented as of this encounter
--- OUTSIDE RECORDS SUMMARY | 2024-12-26 13:06 | XMS_ITS | Encounter Summary ---
Author Organization [facility] Address [facility]-[id number] [address] [place] [address] Care Team Providers Care Regional Clinical Research Associate Name Role Phone Services, [facility] Primary Care Provider Encounter Details Date Type Department Care Team (Late st Contact Info) Description 11/05/2021 Telephone [facility] [address] [place] [address] Di London CNA Social History [...] hospital to home General Yes Laurie Villar, PLAYGROUND DIRECTOR-EXECUTIVE MEETING MANAGER Note: Evaluation of progress towards goal: discharge home with temple/friends support. <enter goal here> General Yes Sunita Tomlinson, ALANIS Note: Evaluation of progress towards goal: plan home self care SNF General Yes Cathryn Kapadia, SOUND ASSISTANT Note: Evaluation of progress towards goal: Patient likely will discharge to a SNF documented as of this encounter Visit Diagnoses Not on filedocumented in this encounter Care Teams Regional Clinical Research Associate Relationship Specialty Start Date End Date [facility], [facility] [address] [place], [place] PCP - General Family Medicine 04/16/24 documented as of this encounter
--- OUTSIDE RECORDS SUMMARY | 2024-12-26 13:06 | XMS_ITS | Patient Health Record ---
Author Organization [facility] vices Address [address] [place], [place] [id number] Care Team Providers Care Paper Cup Handle Machine Operator Name Role Phone Denys Bejaranoin Primary Care Provider [phone] Tatyana Pack Unavailable [phone] Kim Alison Unavailable [phone] Annmarie Lima Unavailable [phone] Sheri Mejia Unavailable Aris, Rocio Unavailable [phone] Allergies No Known Allergies Results Component Value Reference Range Notes POCT A1C Reviewed date:04/23/2024 10:10:14 AM Interpretation: Performing Lab: Notes/Report: POCT A1C Reviewed date:07/23/2024 01:32:43 PM Interpretation: Performing Lab: Notes/Report: POCT A1C Reviewed date:11/06/2024 01:47:29 PM Interpretation: Performing Lab: Notes/Report: Magnesium Reviewed date:07/31/2024 04:38:50 PM Interpretation: Performing Lab: Notes/Report: , [facility] Magnesium 1.9 1.8-2.4 mg/dL Performing Lab: see note ML - [facility] LB Lipid Panel Reviewed date:07/31/2024 04:38:45 PM Interpretation: Performing Lab: Notes/Report: [facility] , Triglycerides 276 <=150 mg/dL Cholesterol 163 [...] RISK Performing Lab: see note ML - [facility] LB Comprehensive Metabolic Pane l Reviewed date:07/31/2024 04:38:57 PM Interpretation: Performing Lab: Notes/Report: [facility] , Sodium 139 136-145 mmol/L Potassium 3.9 [...] Performing Lab: see note ML - [facility] LB LIPID PROFILE Reviewed date:05/10/2024 08:04:36 AM Interpretation: [...] High Risk CHOLESTEROL:HDL 4.3 1.0-5.0 PERFORMED AT [facility] [address],[place] [address] XR foot LT min 3V Reviewed date:03/27/2024 04:25:21 PM Interpretation: Performing Lab: Notes/Report: Source Facility: [facility]-[address] [place] [address] [place] [address] XRay Report Signed Patient: RADHA QUIÑONES MR#: [id number] : 1955 Acct:[id number] Age/Sex: 68 / M ADM Date: 03/22/24 Loc: Attending Dr: Mariana Solomon D.P.M. Ordering Physician: Mariana Solomon D.P.M. Date of Service: 03/22/24 Procedure(s): XR foot LT min 3V Accession Number(s): [id number] cc: IZZY SAM ; Mariana Solomon D.P.M. [facility] [place] [address] Patient Name: RADHA QUIÑONES MRN: [id number] date: 1955 Sex: M Assigned Patient Location: Current Patient Location: Accession/Order Number: [id number] Exam Date: 03/22/2024 10:16 Report Date: 03/25/2024 [...] Varner M.D. Signed By: 03/25/24 1313 DD/ 131 TD/TT: Marine Structural Welder: TSH WITH REFLEX FT4 Reviewed date:05/09/2024 12:13:05 PM Interpretation: Performing Lab: Notes/Report: TSH 4.67 0.49-4.67 uIU/mL PERFORMED A T [address] [place] [address] COMPREHENSIVE METABOLIC PANE L Reviewed date:05/09/2024 12:13:11 PM Interpretation: Performing Lab: Notes/Report: Reported eGFR is based on the CKD-EPI 2020 equation that does not use a race coefficient. PERFORMED AT [address] [place] [address] SODIUM 135 134-146 mmol/L POTASSIUM 4.5 3.5-5.0 [...] eGFR (CKD-EPI) NON-RACE DEPENDENT 61 >59 ml/min/1.73sq.m Reason For Referral Reason neck pain and spasm Diagnosis 1 Lumbar paraspinal mu scle spasm (M62.830) Diagnosis 2 Neck pain (M54.2) Referral Organization [facility] Referring Provider First Name Tatyana Referring Provider Last Name Ramone Referring Provider Speciality Family Pra ctice Referred Provider [facility] emjimmy Armstrong Referred Provider Specialty Pain Managem ent General Notes Destinee Leonard 01/08 08:35:14 AM >{{TOFIRSTNAME}} This is [facility] following up on an outstanding referral that was ordered by your provider. Please call our office at , so we can _update our records. Referral Priority Routine Reason Worsening GFR Diagnosis 1 Chronic kidney disea se, stage 3 (N18.30) Referral Organization [facility] Referring Provider First Name Bradley Referring Provider Last Name Studd Referring Provider Speciality Physician Clay Modeler Referred Provider Tristin Nance Nephrology Referred Provider [...] and Stevenson will see what he can do., Irene Thompson 12/23/2024 06:30:23 PM >Note in chart. ceb Referral Priority Routine Referral Appointment Date 12/23/2024 Reason osteoarthritis of kn ees Diagnosis 1 Primary osteoarthrit is of both knees (M17.0) Referral Organization [facility] Referring Provider First Name Bradley Referring Provider Last Name Studd Referring Provider Speciality Physician Clay Modeler Referred Provider [facility] Referred Provider Specialty Orthopedics General Notes Marisela Beard 08/2024 01:27:46 PM >{ {TOFIRSTNAME}} This is [facility] following up on an outstanding [...] MO UTH EVERY DAY for 90 Active Lac-Hydrin 12 % 1 application Hand Thermal Cutter ally Twice a day 11/02/2022 Active Pantoprazole [...] work (ex. 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 No patient entered lisa a How often do you see or talk to people that you care about and feel close to? (For example: talking to friends on the phone, visiting friends or family, going to quaker or club meetings) More than 5 times a week patient entered data How stressed are you? Stress is when someone feels tense, nervous, anxious, or can't sleep at night because their mind is troubled Not at all patient entered data In the past year have you sp ent more than 2 nights in a row in a intermediate, chcf, correction center, or juvenile correctional facility? No patient [...] Problem Status W/U Status Risk Notes Problem 59505544 Type 2 diabetes mellitus with diabetic chronic kidney disease (E11.22) Active confirmed Problem Hypomagnesemia (886623796) Hypomagnesemia (E83.42) Active confirmed Problem 18374879 Other chronic pain (G89.29) Active confirmed Problem 892256592 Lumbago with sciatica, right side (M54.41) Active confirmed Problem 489281431 Chronic kidney disease, stage 2 (mild) (N18.2) Active confirmed Problem 56220805 Urge incontinence (N39.41) Active confirmed Problem 141748747 Incontinence without sensory awareness (N39.42) Active confirmed Problem 670948253 FDC (current) use of insulin (Z79.4) Active confirmed Problem 044798022592864 Benign prostatic hyperplasia with lower urinary tract symptoms (N40.1) Active confirmed Problem 081339487 Primary osteoarthritis of both knees (M17.0) Active confirmed Problem Gastroesophageal reflux disease (025257788) GERD (gastroesophagea l reflux disease) (K21.9) Active confirmed Problem Overweight (631852952) Overweight (BMI 25.0-29.9) (E66.3) Active confirmed Problem Blood chemistry abnormal (308146922) Elevated TSH (R79.89) Active confirmed Problem Neck pain (09771048) Neck pain (M54.2) Active confirmed Problem 966466615 Lumbar spondylosis (M47.816) Active confirmed Problem 421374783 Ulcer of left foot, unspecified ulcer stage (L97.529) Active confirmed Problem 310673598 Amputation of toe of left foot (S98.132A) Active confirmed Problem Essential hypertension (77499962) Essential hypertension (I10) 2005 Active confirmed Comment:BP improved but still above goal range. asymptomatic . increase dose of lisinopril., Problem Atrial fibrillation (27003647) Paroxysmal atrial fibrillation with RVR (I48.0) Active confirmed Comment:keep follow-up as planned with cardiology heart rate/rhythm normal on exam today, patient asymptomatic take medications as prescribed (metoprolol) any concern with dizziness, fatigue, shortness of breath please seek immediate medical evaluation, Problem Hyperlipidemia (55285271) Hyperlipidemia (E78.5) 2005 Active confirmed Problem Dry skin (37753602) Dry skin (L85.3) Active confirmed Comment:-exc essively dry skin over feet & lower legs -is seeing process laboratory specialist who prescribed salves -will check TSH as well to r/o any underlying issue, Problem Vitamin D deficiency (47761639) Vitamin D deficiency (E55.9) Active confirmed Comment:per recent labwork - mild deficiency. will start daily supplement, recheck prior to follow-up., Problem 19964458 Type 2 diabetes mellitus with other circulatory complications (E11.59) Inactive confirmed Problem 572346980 Type 2 diabetes mellitus with foot ulcer (E11.621) Inactive confirmed Problem Chronic renal disease, stage III (N18.30) Inactive confirmed Problem 856676041 Other sprain of unspecified shoulder joint, initial encounter (S43.499A) 2007 Problem resolved confirmed Problem 857666452 Anemia, unspecified type (D64.9) Problem resolved confirmed Problem Abrasion of scalp (710604401) Excoriation of scalp (S00.01XA) Problem resolved confirmed Comment:nonh ealing lesion on top of head since he hit it on his headboard of hie bed. derm referral please., Problem Orthostatic hypotension (55289658) Orthostatic syncope (I95.1) Problem resolved confirmed Comment:-pt has had 4 episodes so syncope in the last week -mostly in the morning right when he wakes up. thinking these are orthostatic sx -only medication that pt is on that could cause this is tamsulosin. has been on for a long time and pt needs it according to male firearms specialist who comes with pt -no specific findings on PE -will order Echo to rule out heart cause -f/u in 3 weeks, Problem Neck pain (83261386) Neck pain, acute (M54.2) Problem resolved confirmed Comment:Neck pain resolved since taking medication. Advised to complete medication remaining. 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 one has healed a new one has started, advised to continue using cream at home., Vital Signs Heart Rate 63 /min 12/05/2024 denies pain. Az Marisela gudino 12/05/2024 01:44:53 PM EDT > Temperature 97.4 degrees Fahrenheit 12/05/2024 lisbet es pain. Marisela Beard 12/05/2024 01:44:53 PM EDT > Respiratory Rate 18 /min 12/05/2024 denies pain . Marisela Beard 12/05/2024 01:44:53 PM EDT > Height-cm 171.45 cm 12/05/2024 denies pain. Az Marisela gudino 12/05/2024 01:44:53 PM EDT > Oximetry 99 % 12/05/2024 denies pain. Az Marisela gudino 12/05/2024 01:44:53 PM EDT > Blood pressure diastolic 67 mm Hg 12/05/2024 den ies pain. Marisela Beard 12/05/2024 01:44:53 PM EDT > Weight-kg 83.46 kg 11/06/2024 Marivel Decker 11/06/2024 01:22:43 PM EDT > Marisela Beard 11/06/2024 01:46:56 PM EDT > Height 67.50 in 12/05/2024 denies pain. Az Marisela gudino 12/05/2024 01:44:53 PM EDT > [...] Location Date Provider Diagnosis [facility] [address] [place], [place] [id number] 01/16/2024 Alison Alvarez Lumbar spondylosis M47.816 and Other chronic pain G89.29 [facility] [address] [place], [place] [id number] 04/23/2024 Rocio Aris Type 2 diabetes me llitus with diabetic chronic kidney disease E11.22 ; Elevated TSH R79.89 ; Hyperlipidemia E78.5 ; Essential hypertension I10 ; Dietary counseling Z71.3 ; Exercise counseling Z71.82 and Overweight (BMI 25.0-29.9) E66.3 Main [address] [place], [place] [id number] 05/16/2024 Rocio Aris Hyperlipidemia E78 .5 ; Essential hypertension I10 ; Chronic kidney disease, stage 2 (mild) N18.2 ; GERD (gastroesophageal reflux disease) K21.9 and Hypomagnesemia E83.42 Main [address] [place], [place] [id number] 07/23/2024 Bradley Studd Type 2 diabetes me llitus with other circulatory complications E11.59 Main [address] [place], [place] [id number] 07/30/2024 Bradley Studd Essential hyperten esther I10 Main [address] [place], [place] [id number] 08/06/2024 Bradley Studd Chronic kidney dis ease, stage 3 N18.30 and Nausea R11.0 Main [address] [place], [place] [id number] 09/18/2024 Bradley Studd Primary osteoarthr itis of both knees M17.0 Main [address] [place], [place] [id number] 11/06/2024 Bradley Studd Type 2 diabetes me llitus with diabetic chronic kidney disease E11.22 and Essential hypertension I10 Main [address] [place], [place] [id number] 12/05/2024 Bradley Studd Type 2 diabetes me llitus with diabetic chronic kidney disease E11.22 and Weakness R53.1 Main [address] [place], [place] [id number] 12/28/2023 Tatyana Pack Lumbar paraspinal muscle spasm M62.[address] [place], [place] [id number] 01/10/2024 Tatyana Pack Lumbar paraspinal muscle spasm M62.830 [place] [address] [facility] [place] [address] 01/16/2024 Alison Alvarez [place] [address] [facility] [place] [address] 01/29/2024 Alison Alvarez [place] [address] [facility] [place] [address] 01/29/2024 Alison Alvarez [facility] [address] [place], [place] [id number] 01/29/2024 Alison Alvarez [facility] [address] [place], [place] [id number] 01/29/2024 Alison Alvarez [place] [address] [facility] [place] [address] 02/01/2024 Alison Alvarez [facility] [address] [place], [place] [id number] 02/05/2024 Alison Alvarez Type 2 diabetes me llitus with diabetic chronic kidney disease E11.[address] [place], [place] [id number] 03/06/2024 Alison Alvarez Type 2 diabetes me llitus with diabetic chronic kidney disease E11.22 [place] [address] [place] [address] 03/14/2024 Alison Alvarez [facility] [address] [place], [place] [id number] 03/21/2024 Alison Alvarez Type 2 diabetes me llitus with diabetic chronic kidney disease E11.[address] [place], [place] [id number] 03/21/2024 Alison Alvarez [facility] [address] [place], [place] [id number] 03/22/2024 Annmarie Lima Vitamin D deficien cy E55.[address] [place], [place] [id number] 03/28/2024 Alison Alvarez [place] [address] [facility] [place] [address] 04/25/2024 Rocio Aris [facility] [address] [place], [place] [id number] 04/25/2024 Rocio Aris [facility] [address] [place], [place] [id number] 04/25/2024 Rocio Aris [facility] [address] [place], [place] [id number] 04/25/2024 Rocio Aris [facility] [address] [place], [place] [id number] 05/02/2024 Rocio Aris [facility] [address] [place], [place] [id number] 05/16/2024 Rocio Aris [facility] [address] [place], [place] [id number] 05/16/2024 Rocio Aris Hypomagnesemia E83 .[address] [place], [place] [id number] 05/22/2024 Rocio Aris [facility] [address] [place], [place] [id number] 06/05/2024 Rocio Aris Medication refill Z76.[address] [place], [place] [id number] 06/19/2024 Orcio Aris Type 2 diabetes me llitus with diabetic chronic kidney disease E11.[address] [place], [place] [id number] 07/12/2024 Rocio Aris [facility] [address] [place], [place] [id number] 07/15/2024 Rocio Aris [facility] [address] [place], [place] [id number] 07/15/2024 Rocio Aris [facility] [address] [place], [place] [id number] 07/30/2024 Bradley Studd [facility] [address] [place], [place] [id number] 08/05/2024 Bradley Studd Type 2 diabetes me llitus with other circulatory complications E11.[address] [place], [place] [id number] 08/07/2024 Bradley Studd [facility] [address] [place], [place] [id number] 08/07/2024 Bradley Studd [facility] [address] [place], [place] [id number] 09/02/2024 Bradley Studd Hyperlipidemia E78 .[address] [place], [place] [id number] 09/09/2024 Bradley Studd [facility] [address] [place], [place] [id number] 09/23/2024 Bradley Studd [facility] [address] [place], [place] [id number] 09/30/2024 Bradley Studd Hypomagnesemia E83 .42 and Type 2 diabetes mellitus with diabetic chronic kidney disease E11.[address] [place], [place] [id number] 10/14/2024 Bradley Studd [facility] [address] [place], [place] [id number] 10/21/2024 Bradley Studd [facility] [address] [place], [place] [id number] 10/31/2024 Bradley Studd Type 2 diabetes me llitus with other circulatory complications E11.[address] [place], [place] [id number] 11/04/2024 Bradley Studd [facility] [address] [place], [place] [id number] 11/20/2024 Bradley Studd Medication refill Z76.0 and GERD (gastroesophageal reflux disease) K21.[address] [place], [place] [id number] 11/22/2024 Bradley Studd [facility] [address] [place], [place] [id number] 12/04/2024 Bradley Studd [facility] [address] [place], [place] [id number] 12/05/2024 Bradley Studd [facility] [address] [place], [place] [id number] 12/18/2024 Bradley Studd Type 2 diabetes me [...] referral for home OT or PT to [facility] with his strength 12/18/2024 Type 2 [...] Essential hypertension (ICD-10 - I10) pt sblood pressur was low end of normal today I [...] montior if worsneing then will refer to Car Salesman 09/30/2024 Type 2 diabetes mellitus with diabetic [...] advised to schedule an appt with his deaf/hard of hearing specialist. Discussed having diet low in salt and exercise. 04/23/2024 Dietary counseling (ICD-10 - Z71.3) 05/16/2024 Hypomagnesemia (ICD-10 - E83.42) Needs refill. Will check labs 04/23/2024 Exercise counseling (ICD-10 - Z71.82) 04/23/2024 Overweight (BMI 25.0-29.9) (ICD-10 - E66.3) Plan Of Treatment Next Appt Details Provider Name:Bradley Bejarano, 02/04/2025 01:45:00 PM, [address], [id number], Insurance Providers Payer Name Payer Address Payer Phone Subscriber Number Group Number Insured Name Patient Relationship to Insured Coverage Start Date Coverage End Date Medicare NGS PPS [address] [place], [place] [id number] Lincolndavon Radha Self - patient is the insured 9 Medicaid Medicare Crossover [address] [place], [place] [id number] Lisbet Radha Self - patient is the insured 6 [...]
--- OUTSIDE RECORDS SUMMARY | 2024-12-26 13:06 | XMS_ITS | Encounter Summary ---
Author Organization [facility] Address [facility]-[id number] [address] [place] [address] Care Team Providers Care First Aid Trainer Name Role Phone Services, [facility] Primary Care Provider Encounter Details Date Type Department Care Team (Late st Contact Info) Description 06/06/2022 Orders Only [facility] [address] [place] [id number] Mariana Wade, VP [employer]OUNDATION[employer] OPERATOR [address] [place], [place] [id number] ICD (implantable cardioverter-defibrill ator) in place Social [...] hospital to home General Yes Laurie Villar, VP FOUNDATIONINNA Note: Evaluation of progress towards goal: discharge home with jewish/friends support. <enter goal here> General Yes Sunita [...] place documented in this encounter Care Teams First Aid Trainer Relationship Specialty Start Date End Date [facility], [address] PCP - General Family Medicine 04/16/24 documented as of this encounter
--- OUTSIDE RECORDS SUMMARY | 2024-12-26 13:06 | XMS_ITS | Encounter Summary ---
Author Organization [facility] Address [id number] [address] [place] [address] Care Team Providers Care Pointer Helper Name Role Phone Services, [facility] Primary Care Provider Reason for Referral * Cardiology (Routine) - Pending Review Specialty Diagnoses / Procedures Referred By Fly chowdhury Referred To Contact Diagnoses Preoperative clearance Coronary artery disease involving [place] coronary artery of [place] heart without angina pectoris Procedures Nuc stress Lexiscan Vandana Brar APRN-CNP [address] [place] [address] Phone: tel: fax: Referral ID Status Reason Start Date Expiration Date V isits Requested Visits Authorized [id number] Pending Review 10/21/2024 10/21/2025 5 5 Encounter Details Date Type Department Care Team (Late st Contact Info) Description 10/21/2024 Orders Only [facility] [address] [place] [address] Vandana Brar APRN-CNP [address] [place] [address] Preoperative clearance (Primary Dx); Coronary artery disease involving [place] coronary artery of [place] heart without angina pectoris Social History Tobacco [...] hospital to home General Yes Laurie Villar, BIOMEDICAL TECHNICIAN-LAUNDRY LABORER Note: Evaluation of progress towards goal: discharge home with confucianism/friends support. <enter goal here> General Yes Sunita [...] systolic cavity size is normal. Vandana Brar BIOMEDICAL TECHNICIAN-LAUNDRY LABORER CV STRESS ORDERABLES Fi nal Result documented in this encounter Visit Diagnoses Diagnosis Preoperative clearance- Primary Unspecified pre-operative examination Coronary artery disease involving [place] coronary artery of [place] heart without angina pectoris Preoperative clearance Unspecified pre-operative examination Coronary artery disease involving [place] coronary artery of [place] heart without angina pectoris documented in this encounter Care Teams Pointer Helper Relationship Specialty Start Date End Date [facility], [facility] [address] [place], [place] PCP - General Family Medicine 04/16/24 documented as of this encounter
--- OUTSIDE RECORDS SUMMARY | 2024-12-26 13:06 | XMS_ITS | Referral Summary ---
Author Organization [facility] Address [address] [place] [address] Care Team Providers Care Staff Occupational Therapist Name Role Phone Unavailable Primary Care Provider [...]
--- OUTSIDE RECORDS SUMMARY | 2024-12-26 13:06 | XMS_ITS | Encounter Summary ---
Author Organization [facility] tem Address [facility][id number] [address] [place] [address] Care Team Providers Care Management Accountant Name Role Phone Services, [facility] Primary Care Provider Encounter Details Date Type Department Care Team (Late st Contact Info) Description 09/27/2021 Telephone [facility] [address] [place] [phone] Stacy Saldana, SANTY Social History Tobacco Use [...] to home General Yes Villar, Laurie L, ELECTRIC LOCOMOTIVE FIRER/FIREMAN-MILK DRYING MACHINE OPERATOR Note: Evaluation of progress towards goal: discharge home with worship/friends support. <enter goal here> General Yes Sunita Tomlinson, INSTANT POWDER SUPERVISOR Note: Evaluation of progress towards goal: plan home self care SNF General Yes Cathryn Kapadia, INSTANT POWDER SUPERVISOR Note: Evaluation of progress towards goal: Patient likely will discharge to a SNF documented as of this encounter Visit Diagnoses Not on filedocumented in this encounter Care Teams Management Accountant Relationship Specialty Start Date End Date [facility] [address] [place], [place] PCP - General Family Medicine 04/16/24 documented as of this encounter
--- OUTSIDE RECORDS SUMMARY | 2024-12-26 13:06 | XMS_ITS | Encounter Summary ---
Author Organization [employer] [facility] tem Address [id number] [address] [place] [address] Care Team Providers Care Lockstitch Collar Setter Name Role Phone Services, Pending Sale To [facility] Primary Care Provider Encounter Details Date Type Department Care Team (Late st Contact Info) Description 01/28/2022 Telephone [facility] [address] [place] [phone] Di London CNA Social History Tobacco Use [...] hospital to home General Yes Laurie Villar, GSA COORDINATOR-LAMP CLEANER Note: Evaluation of progress towards goal: discharge home with religious/friends support. <enter goal here> General Yes Sunita Tomlinson, ALANIS Note: Evaluation of progress towards goal: plan home self care SNF General Yes Cathryn Kapadia, EYELET MAKER Note: Evaluation of progress towards goal: Patient likely will discharge to a SNF documented as of this encounter Visit Diagnoses Not on filedocumented in this encounter Care Teams Lockstitch Collar Setter Relationship Specialty Start Date End Date [facility], Pending Sale To [facility] [address] [place], [place] PCP - General Family Medicine 04/16/24 documented as of this encounter
--- OUTSIDE RECORDS SUMMARY | 2024-12-26 13:06 | XMS_ITS | Clinical Summary ---
Author Organization [facility] Address [address] [place] [address] Care Team Providers Care Field Control Inspector Name Role Phone Unavailable Primary Care Provider [...]
--- OUTSIDE RECORDS SUMMARY | 2024-12-26 13:06 | XMS_ITS ---
Author Organization [facility] Care Team Providers Care Well Drill Operator Helper Cable Tool Name Role Phone Russell Quezada Unavailable Unavailable Marisela Wilson Unavailable Unavailable Kat Akhtar Unavailable Unavailable Allergies and adverse reactions No Known Allergies Care Team Name Role Address Phone Organization Dates Russell Quezada [facility] [address] [address], [place], [address], [facility] (Office): : [facility] 08/16/2021 - 07/15/2022 Marisela Wilson [address] [address], [place], [address], [place] (Office): : [facility] 08/16/2021 - 07/15/2022 Kat Akhtar [address] [place] [address], [place], [address], [facility] (Office): : : [facility] 08/16/2021 - 07/15/2022 Immunizations Immunization Status Vaccine [...] Status 1 PAROXYSMAL TACHYCARDIA, UNSPECIFIED 04/02/[address] active 2 UNSPECIFIED OPEN WOUND, LEFT FOOT, SUBSEQUENT ENCOUNTER 01/12/[address] active 3 DISRUPTION OF EXTERNAL OPERATION (SURGICAL) WOUND, NOT ELSEWHERE CLASSIFIED, SUBSEQUENT ENCOUNTER 12/30/[address] active 4 DEPRESSION, UNSPECIFIED 12/24/[address] active 5 CELLULITIS OF LEFT LOWER LIMB 09/25/[address] active 6 ELEVATED C-REACTIVE PROTEIN (CRP) 09/25/[address] active 7 OTHER ACUTE OSTEOMYELITIS, LEFT ANKLE AND FOOT 09/25/[address] active 8 STREPTOCOCCAL INFECTION, UNSPECIFIED SITE 09/25/[address] active 9 ANEMIA, UNSPECIFIED 09/03/[address] active 10 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, SUBSEQUENT ENCOUNTER 09/03/[address] active 11 ENCOUNTER FOR ORTHOPEDIC AFTERCARE FOLLOWING SURGICAL AMPUTATION 09/03/[address] active 12 GASTRO-ESOPHAGEAL REFLUX DISEASE WITHOUT ESOPHAGITIS 09/03/[address] active 13 PAIN, UNSPECIFIED 09/03/[address] active 14 ABNORMAL POSTURE 08/17/[address] active 15 ENCOUNTER FOR OTHER ORTHOPEDIC AFTERCARE 08/17/[address] active 16 MUSCLE WEAKNESS (GENERALIZED) 08/17/[address] active 17 OSTEOMYELITIS, UNSPECIFIED 08/17/[address] active 18 OTHER ABNORMALITIES OF GAIT AND MOBILITY 08/17/[address] active 19 ANGINA PECTORIS, UNSPECIFIED 08/16/[address] active 20 ATHEROSCLEROTIC HEART DISEASE OF [place] CORONARY ARTERY WITHOUT ANGINA PECTORIS 08/16/[address] active 21 BENIGN PROSTATIC HYPERPLASIA WITH LOWER URINARY TRACT SYMPTOMS 08/16/[address] active 22 CHEST PAIN, UNSPECIFIED 08/16/[address] active 23 DEGENERATION OF CHAMBER ANGLE, BILATERAL 08/16/[address] active 24 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 08/16/[address] active 25 ESSENTIAL (PRIMARY) HYPERTENSION 08/16/[address] active 26 FUNCTIONAL URINARY INCONTINENCE 08/16/[address] active 27 HYPOMAGNESEMIA 08/16/[address] active 28 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] 08/16/[address] active 29 OTHER OBSTRUCTIVE AND REFLUX UROPATHY 08/16/[address] active 30 PAROXYSMAL ATRIAL FIBRILLATION 08/16/[address] active 31 PRESENCE OF AUTOMATIC (IMPLANTABLE) CARDIAC DEFIBRILLATOR 08/16/[address] active 32 PURE HYPERCHOLESTEROLEM IA, UNSPECIFIED 08/16/[address] active 33 TYPE 2 DIABETES MELLITUS WITH DIABETIC NEPHROPATHY 08/16/[address] active 34 TYPE 2 DIABETES MELLITUS WITH DIABETIC POLYNEUROPATHY 08/16/[address] active 35 TYPE 2 DIABETES MELLITUS WITH OTHER SKIN COMPLICATIONS 08/16/[address] active 36 UNSPECIFIED ATRIAL FIBRILLATION 08/16/[address] active 37 UNSPECIFIED ATRIAL FLUTTER 08/16/[address] active Reason for Referral No Reasons for Referral Entered Social History Social History Observation Description Start Date End Date Code Code System Current Smoking Status Tobacco smoking consumption unknown 155350806 SNOMED CT Sex Assigned At Male 1955 88648-8 [facility] Gender Identity Vital Signs Code Code System Vitals Name Values and Units Timing Information 2339-0 [facility] Blood Sugar Slers=413.0 Units=mg/dL 07/11/2022 06855-9 [facility] Pain Level Value=0.0 07/10/2022 9279-1 [facility] Respiratory Rate Value=18.0 Units=/m in 07/07/2022 8462-4 [facility] Blood Pressure-Diastolic Value=74 Un its=mmHg 07/07/2022 8480-6 [facility] Blood Pressure-Systolic Dzvsx=158 Un its=mmHg 07/07/2022 8310-5 [facility] Body Temperature Value=97.2 Units= F 07/07/2022 8867-4 [facility] Heart rate Value=63.0 Units=/min 10/2022 64894-2 [facility] O2 % BldC Oximetry Value=96.0 Units= % 07/07/2022 28633-0 [facility] Weight Bvpss=202.0 Units=Lbs 08/2022 8302-2 [facility] Height Value=69.0 Units=Inches 08/19/2021
--- OUTSIDE RECORDS SUMMARY | 2024-12-26 13:06 | XMS_ITS | Encounter Summary ---
Author Organization [facility] [employer] [facility] tem Address [id number] [address] [place] [address] Care Team Providers Care Construction Technology Instructor Name Role Phone Services, [facility] Primary Care Provider Encounter Details Date Type Department Care Team (Late st Contact Info) Description 11/12/2021 Telephone [facility] [address] [place] [address] Di [place] CNA Social History [...] hospital to home General Yes Laurie Villar, SILVER STEWARD-WHIP SAWYER Note: Evaluation of progress towards goal: discharge home with moravian/friends support. <enter goal here> General Yes Sunita Tomlinson, ALANIS Note: Evaluation of progress towards goal: plan home self care SNF General Yes Cathryn Kapadia, FINANCIAL MARKET DEALER Note: Evaluation of progress towards goal: Patient likely will discharge to a SNF documented as of this encounter Visit Diagnoses Not on filedocumented in this encounter Care Teams Construction Technology Instructor Relationship Specialty Start Date End Date [facility], [facility] [address] [place], [place] PCP - General Family Medicine 04/16/24 documented as of this encounter
--- OUTSIDE RECORDS SUMMARY | 2024-12-26 13:06 | XMS_ITS | Clinical Summary ---
Author Organization [facility] Address [address] [place] [address] Care Team Providers Care Air Brake Tester Name Role Phone Bradley Bejarano Primary Care Provider [phone] Allergies No known active allergies Medications Xarelto [...] Description 10/04/2024 11:30 AM EDT Office Visit [facility] [address] [place] [address] Robert Guzman DPM Paronychia of great toe of right foot (Primary Dx); Angiopathy, diabetic (HCC); Diabetic polyneuropathy associated with type 2 diabetes mellitus (HCC); Status post partial amputation of left foot (HCC) 10/04/2024 Bamboo flowsheet [facility] [address] [place] [address] Robert Guzman DPM 10/04/2024 Travel 10/03/2024 Travel 10/02/2024 1:00 PM EDT Office Visit [facility] [address] [place] [address] Emery Beard PA Acute pain of right knee (Primary Dx); Arthritis of right knee; Effusion of right knee 10/02/2024 Bamboo flowsheet [facility] [address] [place] [address] Emery Beard PA 10/02/2024 Travel from Last [...] EDT Procedure Visit [facility] [address] [place] [phone] Robert Guzman DPM [address] [place] [phone] Health Maintenance Due Date Last Done Comments CT Colonography 1955 Colonoscopy 1955 Colorectal Cancer Screening 1955 FIT-DNA 1955 FIT 1954 FOBT 1955 Sigmoidoscopy 1955 Pneumococcal Vaccine: 65+ Ye ars (2 of 2 - PCV) 04/25/2023 04/25/2022 Influenza Vaccine (Season Ended) 2025 04/11/2023, 04/25/2022, 04/19/2021, Additional history exists Procedures Procedure Name Priority Date/Time Associated Diagnosis Comments MS ARTHROCENTESIS ASPIR&/INJ MAJOR JT/BURSA W/O US Routine 10/02/2024 1:35 PM EDT Arthritis of right knee Effusion of right knee from Last 3 Months Results * MS ARTHROCENTESIS ASPIR&/INJ MAJOR JT/BURSA W/O US (10/02/2024 [...] Months Insurance MEDICARE MEDICAID [place] Care Teams Air Brake Tester Relationship Specialty Start Date End Date Bradley Bejarano PA [address] [place], [place] [phone] PCP - General Family Medicine 10/02/24
--- OUTSIDE RECORDS SUMMARY | 2024-12-26 13:06 | XMS_ITS | Encounter Summary ---
Author Organization [facility] tem Address [id number] [address] [place] [address] Care Team Providers Care Pulper Operator Name Role Phone Services, [facility] Primary Care Provider Encounter Details Date Type Department Care Team (Late st Contact Info) Description 09/04/2024 Orders Only [facility] [address] [place] [phone] Vandana Brar, STORE GROUP MANAGER-PRIMING MIXTURE CARRIER [address] [place] [address] Social History Tobacco Use Types Packs/Day Years [...] hospital to home General Yes Laurie Villar, STORE GROUP MANAGER-PRIMING MIXTURE CARRIER Note: Evaluation of progress towards goal: discharge home with faith/friends support. <enter goal here> General Yes Sunita Tomlinson LSW Note: Evaluation of progress towards goal: plan home self care SNF General Yes Cathryn Kapadia LSW Note: Evaluation of progress towards goal: Patient likely will discharge to a SNF documented as of this encounter Visit Diagnoses Not on filedocumented in this encounter Care Teams Pulper Operator Relationship Specialty Start Date End Date [facility], [facility] [address] [place] PCP - General Family Medicine 04/16/24 documented as of this encounter
--- OUTSIDE RECORDS SUMMARY | 2024-12-26 13:07 | XMS_ITS | Encounter Summary ---
Author Organization [facility] tem Address [id number] [address] [place] [address] Care Team Providers Care Director Community Organization Name Role Phone Services, [facility] Primary Care Provider Encounter Details Date Type Department Care Team (Late st Contact Info) Description 01/18/2024 Orders Only [facility] [address] [place] [phone] Emery Haq PA [address] [facility] [address] [place], [place] [phone] Social History Tobacco Use Types Packs/Day Years [...] hospital to home General Yes Laurie Villar, REGIONAL SALES CONSULTANT-TEST AUTOMATION ARCHITECT Note: Evaluation of progress towards goal: discharge home with christian/friends support. <enter goal here> General Yes Sunita Tomlinson LSW Note: Evaluation of progress towards goal: plan home self care SNF General Yes Cathryn Kapadia LSW Note: Evaluation of progress towards goal: Patient likely will discharge to a SNF documented as of this encounter Visit Diagnoses Not on filedocumented in this encounter Care Teams Director Community Organization Relationship Specialty Start Date End Date Services, [facility] [address] [place], [place] PCP - General Family Medicine 04/16/24 documented as of this encounter
--- OUTSIDE RECORDS SUMMARY | 2024-12-26 13:07 | XMS_ITS | Patient Health Record ---
Author Organization [facility] [place] Address [address] [place] [address] Care Team Providers Care Metal Grinder Name Role Phone Radha Thapa Primary Care Provider UnavailJuan Lin Unavailable [phone] Allergies No Known Allergies Results Component Value Reference Range Notes CRP (Not yet reviewed by pro vider) Interpretation: Performing Lab:[facility], [address] [place] [address] [place]. [address] PH:[phone] Notes/Report: C REACTIVE PROTEIN 1.9 0.000-0.744 mg/dL PERF ORMED AT [address] [place] [address] ESR (Not yet reviewed by pro vider) Interpretation: Performing Lab:[facility] ([facility]), [address] [place] [address]. [address] PH:[phone] Notes/Report: ESR, ERYTHROCYTE SEDIMENTATION RATE 47 0-20 mm/h PERFORMED AT [place] [address], [place] [address] CBC AND AUTO DIFF * (Not yet reviewed by provider) Interpretation: Performing Lab:[facility], [address] [place] [address] [place]. [address] PH:[phone] Notes/Report: WBC COUNT 5.9 4.0-11.0 X10E9/L RBC [...] BASOPHIL 0.0 0.0-0.2 X10E9/L PERFORM ED AT [address] [place] [address] HGB A1C (GLYCO-HGB) (Not yet reviewed by provider) Interpretation: Performing Lab:[facility] ([facility]), [facility], [place]. [address] PH:[phone] Notes/Report: HEMOGLOBIN A1C 8.7 4.4-5.6 % Result HgbA1c the half-life of red blood cells and in vivo glycation rates are Diabetes : > 6.4 % affected. Normal : less than 5.7 % Prediabetes : 5.7 % to 6.4 % Use with caution in patients with abnormal hemoglobin variants as NOTE ADA Guidelines AVERAGE GLUCOSE 203 PERFORMED AT [place] [address],[place] [address] VC SEGMENTAL PRESSURES (Not yet reviewed by provider) Interpretation: Performing Lab: Notes/Report: Source Facility: [facility]-[address] [place] [address] [place] [address] Vein Report Signed Patient: RADHA QUIÑONES MR#: [id number] : 1955 Acct:[id number] Age/Sex: 69 / M ADM Date: 08/01/24 Loc: VC Attending Dr: Mariana Solomon D.P.M. Ordering Physician: Mariana Solomon D.P.M. Date of Service: 08/01/24 Procedure(s): VC SEGMENTAL PRESSURES Accession Number(s): [id number] cc: IZZY SAM ; Mariana Solomon D.P.M. [place] [id number] Patient Name: RADHA QUIÑONES MRN: [id number] date: 1955 Sex: M Assigned Patient Location: VC Current Patient Location: VC Accession/Order Number: [id number] Exam Date: 08/01/2024 13:16 Report Date: 08/01/2024 16:15 At the request of: MARIANA SOLOMON Procedure: VC SEGMENTAL PRESSURES EXAM: VC SEGMENTAL PRESSURES HISTORY: R09.89 COMPARISON: None. TECHNIQUE: Resting ABIs and segmental pressures were obtained FINDINGS: Right resting KELLEY abnormally elevated due to vascular rigidity. Left resting KELLEY abnormally elevated due to vascular rigidity. Waveforms were monophasic. Recommend CTA. VEIN/VC SEGMENTAL PRESSURES IMPRESSION: Nondiagnostic ABIs and segmental pressures due to vascular rigidity. Recommend CTA. Electronically authenticated by: Eda RODRÍGUEZ Date: 08/01/2024 16:15 Dictated By: Eda Rodríguez M.D. Signed By: 08/01/241617 DD/ 14 TD/TT: System Architect: [place] [address] Vein Report Signed Patient: RADHA QUIÑONES MR#: [id number] : 1955 Acct:[id number] Age/Sex: 69 / M ADM Date: 08/01/24 Loc: VC Attending Dr: Mariana Solomon D.P.M. Ordering Physician: Mariana Solomon D.P.M. Date of Service: 08/01/24 Procedure(s): VC SEGMENTAL PRESSURES Accession Number(s): [id number] cc: IZZY SAM ; Mariana Solomon D.P.M. [address] [address] Patient Name: RADHA QUIÑONES MRN: [facility]:[id number] date: 1955 Sex: M Assigned Patient Location: VC Current Patient Location: VC Accession/Order Numb er: [id number] Exam Date: 08/01/2024 13:16 Report Date: 08/01/2024 16:15 At the request of: MARIANA SOLOMON Procedure: VC SEGMEN АЛЕКСАНДР PRESSURES EXAM: VC SEGMENTAL PRESSURES HISTORY: R09.89 COMPARISON: None. TECHNIQUE: Resting A BIs and segmental pressures were obtained FINDINGS: Right rest ing KELLEY abnormally elevated due to vascular rigidity. Left resting KELLEY abnormal ly elevated due to vascular rigidity. Waveforms were monophasic. Recommen d CTA. VEIN/VC SEGMENTAL PRESSURES IMPRESSION: Nondiagnostic ABIs a nd segmental pressures due to vascular rigidity. Recommend CTA. Electronically authenticated by: Eda RODRÍGUEZ Date: 08/01/2024 16:15 Dictated By: Eda Rodríguez M.D. Signed By: 08/01/241617 DD/ 14 TD/TT: System Architect: CBC AUTO DIFF (Not yet revie wed by provider) Interpretation: Performing Lab: Notes/Report: [facility] , White Blood Count 5.3 [...] 0.00-0.03 10 3/uL Performing Lab: see note - [facility] LB PTT (Not yet reviewed by pro vider) Interpretation: Performing Lab: Notes/Report: [facility] , Partial Thromboplastin Time 35.8 22.3-36.2 sec Performing Lab: see note - [facility] LB Prothrombin Time INR (Not ye t reviewed by provider) Interpretation: Performing Lab: Notes/Report: [facility] , Prothrombin Time 12.8 9.0-11.6 sec INR 1.23 2.5-3.5 FOR PROSTHETIC HEART VALVE REPLACEMENT DESIRED INR: 2.5-3.5 RECURRENT THROMBOSIS 2.0-3.0 CONDITIONS NOT LISTED BELOW Performing Lab: see note - [facility] LB XR foot LT min 3V (Not yet r eviewed by provider) Interpretation: Performing Lab: Notes/Report: Source Facility: [place] [address] [place] [address] XRay Report Signed Patient: RADHA QUIÑONES MR#: [id number] : 1955 Acct:[id number] Age/Sex: 69 / M ADM Date: 11/12/24 Loc: SURGOUT Attending Dr: Mariana Solomon D.P.M. Ordering Physician: Mariana Solomon D.P.M. Date of Service: 11/12/24 Procedure(s): XR foot LT min 3V Accession Number(s): [id number] cc: IZZY SAM ; Mariana Solomon D.P.M. [place] [address] Patient Name: RADHA QUIÑONES MRN: [id number] date: 1955 Sex: M Assigned Patient Location: SURGOUT Current Patient Location: SURGOUT Accession/Order Number: [id number] Exam Date: 11/12/2024 14:31 Report Date: 11/12/2024 14:33 At the request of: MARIANA SOLOMON DPM Procedure: XR foot LT min 3V XR [...] Aranda M.D. 11/12/2024 2:33 PM Dictation Location: [place] [address] Electronically authenticated by: [id number] Y Date: 11/12/2024 14:33 Dictated By: Rafita Aranda M.D. Signed By: 11/12/24 143 DD/ 32 TD/TT: System Architect: [place] [address] XRay Report Signed Patient: RADHA QUIÑONES MR#: [id number] : 1955 Acct:[id number] Age/Sex: 69 / M ADM Date: 11/12/24 Loc: SURGOUT Attending Dr: Mariana Solomon D.P.M. Ordering Physician: Mariana Solomon D.P.M. Date of Service: 11/12/24 Procedure(s): XR shahid t LT min 3V Accession Number(s): [id number] cc: IZZY SAM ; Mariana Solomon D.P.M. [place] [address] Patient Name: RADHA QUIÑONES MRN: [id number] date: 1955 Sex: M Assigned Patient Location: SURGOUT Current Patient Location: SURGOUT Accession/Order Numb er: [id number] Exam Date: 11/12/2024 14:31 Report Date: 11/12/2024 14:33 At the request of: MARIANA SOLOMON DPEdvin Procedure: XR foot L T min 3V [...] Aranda M.D. 11/12/2024 2:33 PM Dictation Location: [place] [address] Electronically authenticated by: [id number] Y Date: 11/12/2024 14:33 Dictated By: Rafita Aranda M.D. Signed By: 11/12/241434 DD/ 32 TD/TT: System Architect: PROF KAYODE Antunez ([facility]) (Not yet reviewed by provider) Interpretation: Performing Lab: Notes/Report: [facility] , Sodium 134 136-145 mmol/L [...] Performing Lab: see note ML - [facility] LB CT FOOT LT WO CON (Not yet r eviewed by provider) Interpretation: Performing Lab: Notes/Report: Source Facility: [place] [address] CT Scan Report Signed Patient: RADHA QUIÑONES MR#: [id number] : 1955 Acct:[id number] Age/Sex: 69 / M ADM Date: 07/31/24 Loc: CT Attending Dr: Mariana Solomon D.P.M. Ordering Physician: Mariana Solomon D.P.M. Date of Service: 07/31/24 Procedure(s): CT foot LT wo con Accession Number(s): [id number] cc: IZZY SAM [place] [address] Patient Name: RADHA QUIÑONES MRN: [id number] date: 1955 Sex: M Assigned Patient Location: CT Current Patient Location: Accession/Order Number: [id number] Exam Date: 07/31/2024 13:15 Report Date: 08/02/2024 [...] M.D. Signed By: 08/02/24534 DD/ 2 TD/TT: System Architect: [place] [address] CT Scan Report Signed Patient: RADHA QUIÑONES MR#: [id number] : 1955 Acct:[id number] Age/Sex: 69 / M ADM Date: 07/31/24 Loc: CT Attending Dr: Mariana Solomon D.P.M. Ordering Physician: Mariana Solomon D.P.M. Date of Service: 07/31/24 Procedure(s): CT shahid t LT wo con Accession Number(s): [id number] cc: IZZY SAM [place] [address] Patient Name: RADHA QUIÑONES MRN: [id number] date: 1955 Sex: M Assigned Patient Location: CT Current Patient Location: Accession/Order Numb er: [id number] Exam Date: 07/31/2024 13:15 Report Date: 08/02/2024 [...] M.D. Signed By: 08/02/24534 DD/ 2 TD/TT: System Architect: XR foot LT min 3V (Not yet r eviewed by provider) Interpretation: Performing Lab: Notes/Report: Source Facility: [place] [address] XRay Report Signed Patient: RADHA QUIÑONES MR#: [id number] : 1955 Acct:[id number] Age/Sex: 68 / M ADM Date: 03/22/24 Loc: Attending Dr: Mariana Solomon D.P.M. Ordering Physician: Mariana Solomon D.P.M. Date of Service: 03/22/24 Procedure(s): XR foot LT min 3V Accession Number(s): [id number] cc: IZZY SAM ; Mariana Solomon D.P.M. [place] [address] Patient Name: RADHA QUIÑONES MRN: [id number] date: 1955 Sex: M Assigned Patient Location: Current Patient Location: Accession/Order Number: [id number] Exam Date: 03/22/2024 10:16 Report Date: 03/25/2024 [...] M.D. Signed By: 03/25/241312 DD/ 09 TD/TT: System Architect: [place] [address] XRay Report Signed Patient: RADHA QUIÑONES MR#: [id number] : 1955 Acct:[id number] Age/Sex: 68 / M ADM Date: 03/22/24 Loc: Attending Dr: Mariana Solomon D.P.M. Ordering Physician: Mariana Solomon D.P.M. Date of Service: 03/22/24 Procedure(s): XR shahid t LT min 3V Accession Number(s): [id number] cc: IZZY SAM ; Mariana Solomon D.P.M. The [place] [id number] Patient Name: RADHA QUIÑONES MRN: [id number] date: 1955 Sex: M Assigned Patient Location: Current Patient Location: Accession/Order Numb er: [id number] Exam Date: 03/22/2024 10:16 Report Date: 03/25/2024 [...] By: Jaylen Varner M.D. Signed By: 03/25/24 1313 DD/ 1310 TD/TT: System Architect: XR chest 2V (Not yet reviewe d by provider) Interpretation: Performing Lab: Notes/Report: Source Facility: [place] [address] XRay Report Signed Patient: RADHA QUIÑONES MR#: [id number] : 1955 Acct:[id number] Age/Sex: 69 / M ADM Date: 10/23/24 Loc: [facility] Attending Dr: Mariana Solomon D.P.M. Ordering Physician: Mariana Solomon D.P.M. Date of Service: 10/23/24 Procedure(s): XR chest 2V Accession Number(s): [id number] cc: IZZY SAM ; Mariana Solomon D.P.M. [place] [address] Patient Name: RADHA QUIÑONES MRN: [id number] date: 1955 Sex: M Assigned Patient Location: [facility] Current Patient Location: [facility] Accession/Order Number: [id number] Exam Date: 10/23/2024 15:07 Report Date: 10/23/2024 [...] Rodri Shrestha M.D.10/23/2024 3:08 PM Dictation Location: [place] [address] Electronically authenticated by: [id number] Y Date: 10/23/2024 15:08 Dictated By: Rodri Shrestha D.O. Signed By: 10/23/24 1510 DD/ 1508 TD/TT: System Architect: [place] [address] XRay Report Signed Patient: RADHA QUIÑONES MR#: [id number] : 1955 Acct:[id number] Age/Sex: 69 / M ADM Date: 10/23/24 Loc: [facility] Attending Dr: Mariana Solomon D.P.M. Ordering Physician: Mariana Solomon D.P.M. Date of Service: 10/23/24 Procedure(s): XR alex st 2V Accession Number(s): [id number] cc: IZZY SAM ; Mariana Solomon D.P.M. [place] [id number] Patient Name: RADHA QUIÑONES MRN: [id number] date: 1955 Sex: M Assigned Patient Location: [facility] Current Patient Location: [facility] Accession/Order Numb er: [id number] Exam Date: 10/23/2024 15:07 Report Date: 10/23/2024 15:08 At the request of: MARIANA SOLOMON DPM Procedure: XR chest 2V Plain film chest [...] Rodri Shrestha M.D.10/23/2024 3:08 PM Dictation Location: [place] [address] Electronically authenticated by: [id number] Y Date: 10/23/2024 15:08 Dictated By: Rodri Shrestha D.O. Signed By: 10/23/24 1510 DD/ 1508 TD/TT: System Architect: Reason For Referral No Information Medications Medication SIG (Take, Route, Frequency, Duration) Notes Start Date End Date Status Cephalexin 500 MG 1 capsule Orally BID Active Amiodarone HCl 200 MG 1 tablet Orally Once a day Active Acidophilus Probiotic 100 MG as directed Orally Not-T aking Atorvastatin Calcium 20 MG 1 tablet Orally Once a day Active Aspirin 81 81 MG 1 tablet Orally Once a day Active Lactobacillus Active Jardiance 25 MG 1 tablet Orally Once a day Active traMADol HCl 50 MG 1 tablet as needed Orally every 8 hours Active Basaglar KwikPen 100 UNIT/ML as directed Subcutaneous Not-Taking Ammonium Lactate 12 % 1 application Externally Twice a day Active Magnesium Oxide 400 MG 1 tablet with food Orally Once a day Active Insulin Glargine 100 UNIT/ML as directed Subcutaneous Active Lac-Hydrin 12% lotion 1 application externally twice a day Not-Taking Ozempic (0.25 or 0.5 MG/DOSE) Active Metoprolol Succinate ER 100 MG 1 tablet Orally Once a day Active Acetaminophen Active metFORMIN HCl ER 500 MG 2 tablets orally BID Active Sertraline HCl 50 MG 1 tablet Orally Once a day Active Pantoprazole Sodium 40 MG 1 tablet 1/2 to 1 hour before morning meal Orally Once a day Not-Taking Vitamin D3 25 MCG (1000 UT) 1 capsule Orally Once a day Active Tamsulosin HCl 0.4 MG 2 capsule Orally Once a day Active Xarelto 20 MG 1 tablet with food Orally Once a day Active Problems Problem Type SNOMED Code ICD Code Onset Dates Problem Status W/U Status Risk Notes Problem Foot ulcer due to type 2 diabetes mellitus (5254482359493) Type 2 diabetes mellitus with foot ulcer (E11.621) Active confirmed Problem Diabetes mellitus type 2 (disorder) (47146236) DM2 (diabetes mellitus, type 2) (E11.9) Active confirmed Problem Non-pressure chronic ulcer of left heel and midfoot limited to breakdown of skin (L97.421) Active confirmed Problem Infected skin ulcer limited to breakdown of skin (L98.491) Active confirmed Problem Foot ulcer due to type 2 diabetes mellitus (9795407938376) Diabetes mellitus with foot ulcer due to multiple causes (E11.621) Active confirmed Problem Hyperglycemia due to type 2 diabetes mellitus (422049102910104) Controlled type 2 diabetes mellitus with hyperglycemia (E11.65) Active confirmed Problem Chronic foot ulcer, limited to breakdown of skin, left (L97.521) Active confirmed Problem Diabetic peripheral neuropathy associated with type 2 diabetes mellitus (1669750074377) Controlled type 2 diabetes mellitus with neuropathy (E11.40) Active confirmed Problem Essential hypertension (90488891) Asymptomatic hypertension (I10) Active confirmed Problem Peripheral vascular disease (039035236) Angiopathy, peripheral (I73.9) Active confirmed Problem 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) Active confirmed Problem Non-pressure chronic ulcer of left heel and midfoot with other specified severity (L97.428) Active confirmed Problem 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) Active confirmed Problem Chronic kidney disease stage 3B (disorder) (928746365) Chronic kidney disease, stage 3b (N18.32) Active confirmed Problem Chronic ulcer of left heel (disorder) (8270797086919165 5) Chronic ulcer of left heel limited to breakdown of skin (L97.421) Active confirmed Vital Signs Blood pressure diastolic 74 mm Hg 12/23/2024 Height 5 ft 9 in in 12/23/2024 Blood pressure systolic 124 mm Hg 12/23/2024 Encounters Encounter Location Date Provider Diagnosis [facility] [place] [address] [place] [phone] 12/23/2024 Juan Swain Chronic kidney disease, stage 3b N18.32 ; DM2 (diabetes mellitus, type 2) E11.9 and Asymptomatic hypertension I10 [facility] [address] [place] [address] 12/11/2024 Juan Swain Assessments Encounter Date Diagnosis (ICD Code) Assessment Notes Treatment Notes Treatment Clinical Notes Section Notes 12/23/2024 Chronic kidney disease, stage 3b (ICD-10 - N18.32) 69 yo M with CKD 3b, DM, and htn Order initial blood and urine studies for evaluation of his CKD 3 Check a kidney and bladder US May need to stop using metformin if his GFR declines further Continue Brionna and Danyadiance for management of CKD and DM Avoid NSAIDs and IV contrast Encourage good daily oral hydration Return in a few weeks to review his results 12/23/2024 DM2 (diabetes mellitus, type 2) (ICD-10 - E11.9) 12/23/2024 Asymptomatic hypertension (ICD-10 - I10) Plan Of Treatment Pending Test Test Name Order Date UA (URINALYSIS, COMPLETE) 12/23/2024 ALBUMIN, BLOOD 12/23/2024 MAGNESIUM 12/23/2024 CBC NO DIFF 12/23/2024 PHOSPHORUS 12/23/2024 PTH INTACT (PARATHYROID HORMONE) 025 URIC ACID 12/23/2024 VITAMIN D, 25 LEVEL (TOTAL) 12/23/2024 US Renals and Bladder 12/23/2024 CRP 07/22/2024 ESR 07/22/2024 CBC AND AUTO DIFF * 07/22/2024 HGB A1C (GLYCO-HGB) 07/22/2024 CBC AUTO DIFF 10/23/2024 PROF CHEM 8 (BAS METB) 10/23/2024 PTT 10/23/2024 CT FOOT LT WO CON 08/02/2024 XR foot LT min 3V 11/12/2024 XR foot LT min 3V 03/25/2024 Prothrombin Time INR 10/23/2024 XR chest 2V 10/23/2024 VC SEGMENTAL PRESSURES 08/01/2024 MICROALBUMIN w SOCIAL INSURANCE ANALYST RATIO 12/23/2024 BMP (BASIC MET PANEL) w/eGFR CKD-EPI Next Appt Details Provider Name:Juan Gottlieb Wiliam, 01/27/2025 01:00:00 PM, [address], [place], [address], Insurance Providers Payer Name Payer Address Payer Phone Subscriber Number Group Number Insured Name Patient Relationship to Insured Coverage Start Date Coverage End Date [place] [address] [place] [address] [id number] Radha Quiñones Self - patient is the insured 3 [place] 2ND INS [address] OFF[place], [place] [id number] Radha Quiñones Self - patient is the insured Medical (General) History Medical History History ICD Code cardiac pacemaker with defibrillator typre 2 DM urinary incontinence without sensory sameera reness excoriation of scalp HTN a fib anemia Surgical History Surgery Date(Month/Year) three toes removed from left foot 2022 cataract extraction- bilateral skin cancer removal on right hand 5 cardiac pacemaker/ defibrillation Hospitalization History Reason Date(Month/Year) back and foot pain
--- OUTSIDE RECORDS SUMMARY | 2024-12-26 13:07 | XMS_ITS | Encounter Summary ---
Author Organization [employer] Address [id number] [address] [place] [address] Care Team Providers Care Grape Grower Name Role Phone Services, [facility] Primary Care Provider Encounter Details Date Type Department Care Team (Late st Contact Info) Description [facility] [address] [place] [phone] Dwain Lynn MD [address] [place] [address] Social History Tobacco Use Types Packs/Day Years [...] If that doesn't work, patient to call [facility] at . Marlene Nunez RN 07/28/20 1004 documented in this encounter Plan of Treatment Not on file documented as of this encounter Goals Goal Patient Goal Type Associated Problems Recent Progress Patient-Stated? Author safe transition from hospital to home General Yes Laurie Villar, JAVA LEAD DEVELOPER-HEAT TREATING OPERATOR Note: Evaluation of progress towards goal: discharge home with sikhism/friends support. <enter goal here> General Yes Sunita Tomlinson LSW Note: Evaluation of progress towards goal: plan home self care documented as of this encounter Visit Diagnoses Not on filedocumented in this encounter Care Teams Grape Grower Relationship Specialty Start Date End Date Services, [facility] [address] [place], [place] PCP - General Family Medicine 04/16/24 documented as of this encounter
--- OUTSIDE RECORDS SUMMARY | 2024-12-26 13:07 | XMS_ITS | Encounter Summary ---
Author Organization [facility] Address [id number] [address] [place] [address] Care Team Providers Care Food Service Clerk Name Role Phone Services, [facility] Primary Care Provider Encounter Details Date Type Department Care Team (Late st Contact Info) Description 03/09/2023 Orders Only [facility] [address] [place] [phone] Yoni Espinoza MD [address] [place] [address] Ventricular tachycardia ([facility]) Social History Tobacco Use Types Packs/Day Years [...] hospital to home General Yes Laurie Villar, SENIOR INFORMATION SECURITY ENGINEER-BOTTOMING ROOM SUPERVISOR Note: Evaluation of progress towards goal: discharge home with gnosticism/friends support. <enter goal here> General Yes Sunita Tomlinson, ALANIS Note: Evaluation of progress towards goal: plan home self care SNF General Yes Cathryn Kapadia, SOLAR MAINTENANCE TECHNICIAN Note: Evaluation of progress towards goal: Patient likely will discharge to a SNF documented as of this encounter Procedures Procedure Name Priority Date/Time Associated Diagnosis Comments DEVICE INTERROGATION Routine 03/08/2023 Ventricular tachycardia ([facility]) documented in this encounter Results * Device Interrogation (03/08/2023) Anatomical Region Laterality Modality Other us Yoni Espinoza MD [facility] ORDERABLES Final Result documented in this encounter Visit Diagnoses Diagnosis Ventricular tachycardia ([facility]) Paroxysmal ventricular tachycardia documented in this encounter Care Teams Food Service Clerk Relationship Specialty Start Date End Date Services, [facility] [address] [place], [place] PCP - General Family Medicine 04/16/24 documented as of this encounter
--- OUTSIDE RECORDS SUMMARY | 2024-12-26 13:07 | XMS_ITS | Encounter Summary ---
Author Organization [employer] Address [id number] [address] [place] [address] Care Team Providers Care Card Reader Name Role Phone Services, [facility] Primary Care Provider Encounter Details Date Type Department Care Team (Late st Contact Info) Description 07/28/2020 [facility] [address] [facility] [place] [phone] Dwain Lynn MD [address] [place] [address] Social History Tobacco Use Types Packs/Day Years [...] hospital to home General Yes Laurie Villar, BUSINESS ANALYST SALES OPERATIONS-PRECISION LAYOUT WORKER Note: Evaluation of progress towards goal: discharge home with sabianist/friends support. <enter goal here> General Yes Sunita Tomlinson LSW Note: Evaluation of progress towards goal: plan home self care documented as of this encounter Visit Diagnoses Not on filedocumented in this encounter Care Teams Card Reader Relationship Specialty Start Date End Date Services, [facility] [address] [place], [place] PCP - General Family Medicine 04/16/24 documented as of this encounter
--- OUTSIDE RECORDS SUMMARY | 2024-12-26 13:07 | XMS_ITS | Encounter Summary ---
Author Organization [facility] Sys tem Address [facility]-[id number] [address] [place] [address] Care Team Providers Care Weatherization Specialist Name Role Phone Services, Counts Include [facility] Primary Care Provider Encounter Details Date Type Department Care Team (Late st Contact Info) Description 09/04/2020 Orders Only [facility] [address] [place] [phone] External, Scanning Provider Social History Tobacco Use [...] hospital to home General Yes Laurie Villar, STRUCTURAL ENGINEERING TECHNICIAN-CHECK SERVICES CLERK Note: Evaluation of progress towards goal: [...] on filedocumented in this encounter Care Teams Weatherization Specialist Relationship Specialty Start Date End Date Services, Counts Include [address] [facility] [address] [place], [place] PCP - General Family Medicine 04/16/24 documented as of this encounter
--- OUTSIDE RECORDS SUMMARY | 2024-12-26 13:07 | XMS_ITS | Encounter Summary ---
Author Organization [facility] Sys tem Address [facility][id number] [address] [place] [address] Care Team Providers Care Microscopist Name [facility] Provider Encounter Details Date Type Department Care Team (Late st Contact Info) Description 09/07/2016 Documentation [facility] [address] [place] [address] [address] [place] [phone] Frederic Thorne MD [address] [place] [id number] Social History Tobacco Use Types Packs/Day Years [...] documented as of this encounter Care Teams Microscopist Relationship Specialty Start Date End Date Services, [facility] [address] [place], [place] PCP - General Family Medicine 04/16/24 documented as of this encounter
--- OUTSIDE RECORDS SUMMARY | 2024-12-26 13:07 | XMS_ITS | Encounter Summary ---
Author Organization [facility] Sys tem Address [facility]-[id number] [address] [place] [address] Care Team Providers Care Cutting Tool Sharpener Name Role Phone Services, [facility] Primary Care Provider Encounter Details Date Type Department Care Team (Late st Contact Info) Description 05/08/2020 Orders Only [facility] [address] [place] [phone] External, Scanning Provider Social History Tobacco Use [...] hospital to home General Yes Laurie Villar, WORKERS COMPENSATION EXAMINER-CUTTER TENDER Note: Evaluation of progress towards goal: discharge home with restorationism/friends support. <enter goal here> General Yes Sunita [...] documented as of this encounter Care Teams Cutting Tool Sharpener Relationship Specialty Start Date End Date Services, [facility] [address] [place], [place] PCP - General Family Medicine 04/16/24 documented as of this encounter
--- OUTSIDE RECORDS SUMMARY | 2024-12-26 13:07 | XMS_ITS | Encounter Summary ---
Author Organization [facility] Address [facility] [place]-[id number] [address] [place] [address] Care Team Providers Care Mechanical Tech Name Role Phone Services, [facility] Primary Care Provider Encounter Details Date Type Department Care Team (Late st Contact Info) Description 09/07/2016 Documentation [facility] [address] [place] [phone] Frederic Thorne MD [address] [place] [id number] Social History Tobacco Use Types Packs/Day Years [...] documented as of this encounter Care Teams Mechanical Tech Relationship Specialty Start Date End Date Services, [facility] [address] [place], [place] PCP - General Family Medicine 04/16/24 documented as of this encounter
--- OUTSIDE RECORDS SUMMARY | 2024-12-26 13:07 | XMS_ITS ---
Author Organization [facility] Care Team Providers Care Electrical Lineworker Name Role Phone Fadi Mooney Unavailable Unavailable Rafita Arroyo Unavailable Unavailable Allergies and adverse reactions No Known Allergies Care Team Name Role Address Phone Organization Dates Fadi Mooney [facility] [address] [facility] [place], [address], [facility] (Office): : : [facility] 11/22/2018 - 12/15/2018 Rafita Arroyo [address], [address], [facility] (Office): : [facility] 11/22/2018 - 12/15/2018 Immunizations Immunization Status Vaccine Details Vaccine Code CodeSystem Date Notes Influenza cancelled Influenza, high-dose, split virus, quadrivalent, injectable, preservative free 197 CVX created date: 12/04/2018 consent date: 12/04/2018 Resident has received flu vaccine in Fall 2017 TB 1 Step Mantoux (PPD) completed tuberculin skin test; unspecified formulation lotNumber: [id number] expiry: 04/01/2020 Mfg: [employer] Given 0.1 ml Right Forearm intradermally 98 CVX created date: 12/06/2018 consent date: 12/05/2018 administer ed date: 12/06/2018 TB 1 Step Mantoux (PPD) completed tuberculin skin test; unspecified formulation lotNumber: [id number] expiry: 01/30/2020 Mfg: [employer] Given 0.1 [...] DIFFICULTY IN WALKING, NOT ELSEWHERE CLASSIFIED 11/23/[address] active 2 MUSCLE WEAKNESS (GENERALIZED) 11/23/[address] active 3 OTHER PROBLEMS RELATED TO LIFE MANAGEMENT DIFFICULTY 11/23/[address] active 4 UNSPECIFIED ATRIAL FIBRILLATION 11/23/19 19 11/22/[address] completed 5 ATHEROSCLEROTIC HEART DISEASE OF [place] CORONARY ARTERY WITHOUT ANGINA PECTORIS 11/22/[address] active 6 BENIGN PROSTATIC HYPERPLASIA WITH LOWER URINARY TRACT SYMPTOMS 11/22/[address] active 7 ESSENTIAL (PRIMARY) HYPERTENSION 11/22/[address] active 8 HYPERLIPIDEMIA, UNSPECIFIED 11/22/[address] active 9 HALF-WAY (CURRENT) USE OF INSULIN 11/22/[address] active 10 PAROXYSMAL ATRIAL FIBRILLATION 11/22/[address] active 11 PRESENCE OF AUTOMATIC (IMPLANTABLE) CARDIAC DEFIBRILLATOR 11/22/[address] active 12 PRESENCE OF CARDIAC PACEMAKER 11/22/[address] active 13 TYPE 2 DIABETES MELLITUS WITHOUT COMPLICATIONS 11/22/[address] active Reason for Referral No Reasons for Referral Entered Social History Social History Observation Description Start Date End Date Code Code System Current Smoking Status Tobacco smoking consumption unknown 001030840 SNOMED CT Sex Assigned At Male 1955 68483-5 [facility] Gender Identity Vital Signs Code Code System Vitals Name Values and Units Timing Information 2339-0 [facility] Blood Sugar Gwlfg=787.0 Units=mg/dL 12/15/2018 01355-8 [facility] Pain Level Value=1.0 12/14/2018 01397-0 [facility] O2 % BldC Oximetry Value=99.0 Units= % 12/14/2018 8867-4 [facility] Heart rate Value=75.0 Units=/min 8310-5 [facility] Body Temperature Value=98.0 Units= F 12/14/2018 8462-4 [facility] Blood Pressure-Diastolic Value=83 Un its=mmHg 12/14/2018 8480-6 [facility] Blood Pressure-Systolic Lgwcb=251 Un its=mmHg 12/14/2018 9279-1 [facility] Respiratory Rate Value=16.0 Units=/m in 12/12/2018 08479-4 [facility] Weight Jwmgk=306.2 Units=Lbs 03/2019 8302-2 [facility] Height Value=69.0 Units=Inches 11/22/2018
== END 2024-12-26 13:05 | disposition home or self-care (01) ==
LOC: WC 13:04
PROVIDERS: Visit Provider Physician Assistant
DX: E11.621 Type 2 diabetes mellitus with foot ulcer (principal); L97.422 Non-pressure chronic ulcer of left heel and midfoot with fat layer exposed; L89.526 Pressure-induced deep tissue damage of left ankle
CPT/HCPCS: 11043; A6213

== ENCOUNTER 2025-01-08 14:09 | Outpatient (OUT) | payer MEDICARE, MEDICAID, SELFPAY ==
--- OUTSIDE RECORDS SUMMARY | 2024-11-18 09:00 | XMS_ITS ---
Author Organization [facility] vices Address [address] [id number] Care Team Providers Care Sound Recordist Name Role Phone Bradley Bejarano Primary Care Provider REASON FOR VISIT DM & HTN Social History Sex Assigned At : Social History Observation Description Sex Assigned At Male Encounters Encounter Location Date Provider Diagnosis Main [address] [id number] 11/18/2024 Bradley Bejarano Plan Of Treatment Next Appt Details Provider Name:Bradley Bejarano, 02/04/2025 01:45:00 PM, [address], [place], [id number], Progress Notes * Tomas QUIÑONESDOB:1955 (69 yo M)Acc No.[id number]:11/18/2024 Medical Note Patient: Tomas PIPER Provider: Eda Bejarano :1955 A ge:69 Y S ex:Male Date:11/18/2024 Address:[address] [facility] , [address], [place], [id number] Subjective: * Chief Complaints: * 1 . DM & HTN. * Medical History: Objective: * Vitals: Assessment: Plan: * Treatment: * Billing Information: * Visit Code: * Procedure Codes: * Electronic signature of EDWARD Parra on 01/08/2025 at 02:12 PM EDT Sign off status: Pending * Provider: Eda Bejarano Date: 0 11/18/2024 Generated for Printi ng/Faxing/eTransmitting on: 0 01/08/2025 02:12 PM EDT
--- OUTSIDE RECORDS SUMMARY | 2024-12-11 07:51 | XMS_ITS ---
Author Organization [facility] in [place] Address [address] [place] [address] Care Team Providers Care Private Watchman Name Role Phone Tomas Thapa Primary Care Provider Juan Orantes Unavailable [phone] Allergies No Known Allergies REASON FOR VISIT Pearl Technician chart prep Medications Medication SIG (Take, [...] Location Date Provider Diagnosis [facility] [address] [place] [address] 12/11/2024 Juan Swain Plan Of Treatment Next Appt Details Provider Name:Juan Swain, 01/27/2025 01:00:00 PM, [address], [place], [address], Progress Notes * Tomas QUIÑONES JDOB:1955 (69 yo M)Acc No.[id number]:12/11/2024 Patient: Tomas PIPER :1955 A ge:69 Y S ex:Male Address:[address] [place] [address] , [address], [place] [address] Subjective: * Chief Complaints: * N p chart prep * Medical History: * Surgical History: c ataract extraction- bilateral skin cancer removal on right hand 12/2014cardiac pacemaker/ defibrillation three toes removed from left foot 2022 * Hospitalization/Major Diagno stic Procedure: b ack and foot pain * Family History: F ather: . M other: . B rother(s): . S ister(s): .�Paternal Grandfather: . P aternal Grandmother: . M [...] Date: Generated for Camille clement/Malena/Bc on: 0 01/08/2025 02:29 PM EDT
--- OUTSIDE RECORDS SUMMARY | 2025-01-01 09:23 | XMS_ITS | Encounter Summary ---
Author Organization [facility] tem Address [id number] [address] [place] [address] Care Team Providers Care Brim Flexer Name Role Phone Services, [facility] Primary Care Provider Encounter Details Date Type Department Care Team (Latest Contact Info) Description 01/01/2025 9:23 AM EDT - 01/01/2025 11:59 PM EDT Hospital Encounter [facility] - Ultrasound [address] [place] [phone] Stage 3b chronic kidney disease ([facility]-H[facility]) Discharge Disposition: Home Social History Tobacco Use Types Packs/Day Years [...] on file documented as of this encounter Medications at Time of Discharge acetaminophen (TYLENOL ARTHRITIS) 650 mg 8 hr tablet Take 1 tablet (650 mg total) by mouth every 8 (eight) hours as needed for pain. amiodarone (PACERONE) 200 mg tablet Take 1 tablet (200 mg total) by mouth in the morning. 90 tablet 3 09/04/2024 aspirin 81 mg Take 1 tablet (81 mg total) by mouth in the morning. atorvastatin (LIPITOR) 20 mg tablet Take 1 tablet (20 mg total) by mouth in the morning. 09/02/2024 EASY TOUCH 31 gauge x 5/16 needle 01/20/2018 empagliflozin (JARDIANCE) 25 mg tablet tablet Take 1 tablet (25 mg total) by mouth in the morning. metFORMIN XR (GLUCOPHAGE-XR) 500 mg 24 hr tablet Take 2 tablets (1,000 mg total) by mouth in the morning and 2 tablets (1,000 mg total) before bedtime. 01/23/2018 metoprolol succinate XL (TOPROL XL) 100 mg 24 hr tabletIndications: Ventricular tachycardia (CMS-HCC),Atrial fibrillation with RVR (CMS-HCC),V-tach (CMS-HCC) TAKE 1 TABLET (100 MG TOTAL) BY MOUTH IN THE MORNING 90 tablet 07/22/2024 sertraline (ZOLOFT) 50 mg tablet Take 1 tablet (50 mg total) by mouth in the morning. XARELTO 20 mg tablet tabletIndications: Atrial fibrillation, unspecified type (CMS-HCC) TAKE 1 TABLET (20 MG TOTAL) BY MOUTH IN THE MORNING 90 tablet 2 12/19/2024 documented as of this encounter Plan of Treatment Not on file documented as of this encounter Goals Goal Patient Goal Type Associated Problems Recent Progress Patient-Stated? Author safe transition from hospital to home General Yes Laurie Villar, TYPE CASTING MACHINE OPERATOR-VENDING MACHINE FILLER Note: Evaluation of progress towards goal: discharge home with mormon/friends support. <enter goal here> General Yes Sunita Tomlinson, ALANIS Note: Evaluation of progress towards goal: plan home self care SNF General Yes Cathryn Kapadia, TRANSPLANT SURGEON Note: Evaluation of progress towards goal: Patient likely will discharge to a SNF documented as of this encounter Procedures Procedure Name Priority Date/Time Associated Diagnosis Comments US RETROPERITONEAL COMPLETE Routine 01/01/2025 10:08 AM EDT Stage 3b chronic kidney disease (CMS-HCC) documented in this encounter Results * Ultrasound retroperitoneal complete (01/01/2025 10:08 AM EDT) Anatomical Region Laterality Modality Body Ultrasound 01/06/2025 2:06 PM EDT Narrative 01/06/2025 2:08 PM EDT HISTORY: A 69-year-old male with a history of the stage III chronic renal disease. TECHNIQUE: Multiple real-time images of both kidneys and the urinary bladder are obtained. Color Doppler study is performed. COMPARISON: Comparison is made with prior renal ultrasound examination of 08/12/[address] urogram of the 08/15/2021. FINDINGS: Both kidneys are normal in position and configuration. Right kidney measures 10.9 x 4.3 x 4.6 Cms. Right renal cortical thickness measures 0.7 Cms . Left kidney measures 11.5 x 3.4 x 4.3 Cms. Left renal cortical thickness measures 0.9 Cms. There is no evidence of hydronephrosis in the either kidney. Renal cortical echoes are within normal limits. No evidence of cystic or solid renal mass. Prevoid urinary bladder volume is 491 mL. Bilateral ureteric jets are visualized. No intraluminal abnormality seen. IMPRESSION: * No evidence of echogenic calculi or hydronephrosis in the either kidney. * No evidence of cystic or solid renal mass. * Urinary bladder is unremarkable. Finalized by Kali Luevano MD on 01/06/2025 2:08 PM Procedure Note Kali Luevano MD - 01/06/2025 HISTORY: A 69-year-old male with a history of the stage III chronic renaldisease. TECHNIQUE: Multiple real-time images of both kidneys and the urinarybladder are obtained. Color Doppler study is performed. COMPARISON: Comparison is made with prior renal ultrasound examination of08/12/[address] urogram of the 08/15/2021. FINDINGS: Both kidneys are normal in position and configuration. Rightkidney measures 10.9 x 4.3 x 4.6 Cms. Right renal cortical thicknessmeasures 0.7 Cms . Left kidney measures 11.5 x 3.4 x 4.3 Cms. Leftrenal cortical thickness measures 0.9 Cms. There is no evidence of hydronephrosis in the either kidney. Renal cortical echoes are within normal limits. No evidence of cystic orsolid renal mass. Prevoid urinary bladder volume is 491 mL. Bilateral ureteric jets arevisualized. No intraluminal abnormality seen. IMPRESSION: * No evidence of echogenic calculi or hydronephrosis in the eitherkidney. * No evidence of cystic or solid renal mass. * Urinary bladder is unremarkable. Finalized by Kali Luevano MD on 01/06/2025 2:08 PM Juan Swain MD [facility] US ORDERABLES Final Result documented in this encounter Visit Diagnoses Diagnosis Stage 3b chronic kidney disease ([facility]) documented in this encounter Care Teams Brim Flexer Relationship Specialty Start Date End Date [facility], [address] PCP - General Family Medicine 04/16/24 documented as of this encounter
--- OUTSIDE RECORDS SUMMARY | 2025-01-08 14:11 | XMS_ITS | Encounter Summary ---
Author Organization [facility] Address [facility][id number] [address] [place] [address] Care Team Providers Care Leverman Name Role Phone Services, [facility] Primary Care Provider Encounter Details Date Type Department Care Team (Late st Contact Info) Description 11/12/2021 Telephone [facility] [address] [place] [address] Di London CNA Social History [...] hospital to home General Yes Laurie Villar, SPARE HAND CARDING-MACHINIST BENCH Note: Evaluation of progress towards goal: discharge home with latter day/friends support. <enter goal here> General Yes Sunita Tomlinson, ALANIS Note: Evaluation of progress towards goal: plan home self care SNF General Yes Cathryn Kapadia, ACTUARIAL SCIENCE PROFESSOR Note: Evaluation of progress towards goal: Patient likely will discharge to a SNF documented as of this encounter Visit Diagnoses Not on filedocumented in this encounter Care Teams Leverman Relationship Specialty Start Date End Date [facility], [facility] [address] [place], [place] PCP - General Family Medicine 04/16/24 documented as of this encounter
--- OUTSIDE RECORDS SUMMARY | 2025-01-08 14:11 | XMS_ITS | Encounter Summary ---
Author Organization [employer] [facility] tem Address [facility]-[id number] [address] [place] [address] Care Team Providers Care Anodize Machine Operator Name Role Phone Services, Primary Care Provider Encounter Details Date Type Department Care Team (Late st Contact Info) Description 12/16/2021 Telephone [facility] [address] [place] [phone] Stacy Saldana, SANTY Social History Tobacco Use [...] hospital to home General Yes Laurie Villar, COURIER-CLAY HOISTER Note: Evaluation of progress towards goal: discharge home with moravian/friends support. <enter goal here> General Yes Sunita Tomlinson, ALANIS Note: Evaluation of progress towards goal: plan home self care SNF General Yes Cathryn Kapadia, CABLE TENDER Note: Evaluation of progress towards goal: Patient likely will discharge to a SNF documented as of this encounter Visit Diagnoses Not on filedocumented in this encounter Care Teams Anodize Machine Operator Relationship Specialty Start Date End Date [facility], [address] [place], [place] PCP - General Family Medicine 04/16/24 documented as of this encounter
--- OUTSIDE RECORDS SUMMARY | 2025-01-08 14:11 | XMS_ITS | Encounter Summary ---
Author Organization [facility] tem Address [facility]-[id number] [address] [place] [address] Care Team Providers Care Police Magistrate Name Role Phone Services, [facility] Primary Care Provider Encounter Details Date Type Department Care Team (Late st Contact Info) Description 11/15/2021 Telephone [facility] [address] [place] [phone] Stacy Saldana, SANTY Social History Tobacco Use [...] to home General Yes Villar, Laurie L, RESEARCH PROGRAM INTERNSHIP-PATROL CAPTAIN Note: Evaluation of progress towards goal: discharge home with samaritan/friends support. <enter goal here> General Yes Sunita Tomlinson, ACADEMIC GUIDANCE SPECIALIST Note: Evaluation of progress towards goal: plan home self care SNF General Yes Cathryn Kapadia, ACADEMIC GUIDANCE SPECIALIST Note: Evaluation of progress towards goal: Patient likely will discharge to a SNF documented as of this encounter Visit Diagnoses Not on filedocumented in this encounter Care Teams Police Magistrate Relationship Specialty Start Date End Date [facility], [facility] [address], [place] PCP - General Family Medicine 04/16/24 documented as of this encounter
--- OUTSIDE RECORDS SUMMARY | 2025-01-08 14:11 | XMS_ITS | Encounter Summary ---
Author Organization [facility] [employer] Sys tem Address [facility][id number] [address] [place] [address] Care Team Providers Care Pediatric Critical Care Nurse Name Role Phone Services, [facility] Primary Care Provider Encounter Details Date Type Department Care Team (Late st Contact Info) Description 10/11/2021 Abstract [facility] [address] [place] [phone] External, Scanning Provider Social History Tobacco Use [...] hospital to home General Yes Laurie Villar, CUSTOMER SOLUTIONS TEAMMATE-TWISTER TENDER PAPER Note: Evaluation of progress towards goal: discharge home with mormon/friends support. <enter goal here> General Yes Sunita Tomlinson LSW Note: Evaluation of progress towards goal: plan home self care SNF General Yes Cathryn Kapadia, BIOLOGIST AIDE Note: Evaluation of progress towards goal: Patient [...] on filedocumented in this encounter Care Teams Pediatric Critical Care Nurse Relationship Specialty Start Date End Date [facility], [facility] [address] [place], [place] PCP - General Family Medicine 04/16/24 documented as of this encounter
--- OUTSIDE RECORDS SUMMARY | 2025-01-08 14:11 | XMS_ITS | Encounter Summary ---
Author Organization [email or web address] [facility] tem Address [facility]-[id number] [address] [place] [address] Care Team Providers Care Warp Starter Name Role Phone Services, [facility] Primary Care Provider Encounter Details Date Type Department Care Team (Late st Contact Info) Description 01/28/2022 Telephone [facility] [address] [place] [phone] Di London CNA Social History Tobacco Use [...] hospital to home General Yes Laurie Villar, SUPERVISOR INTELLIGENCE ANALYST-DINKEY ENGINE MECHANIC Note: Evaluation of progress towards goal: discharge home with tenriism/friends support. <enter goal here> General Yes Sunita Tomlinson, ALANIS Note: Evaluation of progress towards goal: plan home self care SNF General Yes Cathryn Kapadia, PIPE FITTER SUPERVISOR MAINTENANCE Note: Evaluation of progress towards goal: Patient likely will discharge to a SNF documented as of this encounter Visit Diagnoses Not on filedocumented in this encounter Care Teams Warp Starter Relationship Specialty Start Date End Date [facility], [facility] [address] [place], [place] PCP - General Family Medicine 04/16/24 documented as of this encounter
--- OUTSIDE RECORDS SUMMARY | 2025-01-08 14:11 | XMS_ITS | Encounter Summary ---
Author Organization [facility] Address [facility]-[id number] [address] [place] [address] Care Team Providers Care Wellness Spa Manager Name Role Phone Services, [facility] Primary Care Provider Encounter Details Date Type Department Care Team (Late st Contact Info) Description 12/07/2021 Orders Only [facility] [address] [place] [phone] Janelle James CMA AICAlexa present, double chamber [...] hospital to home General Yes Laurie Villar, PSYCHOLOGY TECHNICIAN-WEB SITE DESIGNER Note: Evaluation of progress towards goal: discharge home with scientology/friends support. <enter goal here> General Yes Sunita Tomlinson LSW Note: Evaluation of progress towards goal: plan home self care SNF General Yes Cathryn Kapadia, HAND OR MACHINE PASTER Note: Evaluation of progress towards goal: Patient likely will discharge to a SNF documented as of this encounter Procedures Procedure Name Priority Date/Time Associated Diagnosis Comments DEVICE INTERROGATION Routine 12/07/2021 AICD present, double chamber documented in this encounter Results * Device Interrogation (12/07/2021) Anatomical Region Laterality Modality Other Mariana Wade APRN-WEB SITE DESIGNER CV CARDIAC SERVICES OR DERABLES Final Result documented in this encounter Visit Diagnoses Diagnosis AICD present, double chamber documented in this encounter Care Teams Wellness Spa Manager Relationship Specialty Start Date End Date Services, [facility] [address] [place], [place] PCP - General Family Medicine 04/16/24 documented as of this encounter
--- OUTSIDE RECORDS SUMMARY | 2025-01-08 14:11 | XMS_ITS | Encounter Summary ---
Author Organization [facility] Address [facility] [id number] [address] [place] [address] Care Team Providers Care Osteologist Name Role Phone Services, [facility] Primary Care Provider Reason for Visit * Reason Onset Date Comments Med Refill 11/25/2022 Encounter Details Date Type Department Care Team (Late st Contact Info) Description 11/25/2022 Refill [facility] [address] [place] [phone] Zac Sherman, RN Med Refill Social History [...] hospital to home General Yes Laurie Villar, IT PROGRAMMER-PHYSICIAN OFFICE SPECIALIST Note: Evaluation of progress towards goal: discharge home with confucianism/friends support. <enter goal here> General Yes Sunita Tomlinson, IT INFRASTRUCTURE SPECIALIST Note: Evaluation of progress towards goal: plan home self care SNF General Yes Cathryn Kapadia, IT INFRASTRUCTURE SPECIALIST Note: Evaluation of progress towards goal: Patient likely will discharge to a SNF documented as of this encounter Results * (ABNORMAL) CBC without diff (04/06/2023 12:40 PM EDT) White Blood Cells 8.1 4.0 - 11.0 X10E9/L 04/06/2023 8:17 PM EDT [facility] RBC count 4.49 4.10 - 5.70 X10E12/L 04/06/2023 8:17 PM EDT [facility] Hemoglobin 13.3 13.0 - 17.0 g/dL 04/06/2023 8:17 PM EDT [facility] Hematocrit 41.1 39 - 49 % 04/06/2023 8:17 PM EDT [facility] MCV 92 80 - 100 fL 04/06/2023 8:17 PM EDT [facility] MCH 29.5 27 - 34 pg 04/06/2023 8:17 PM EDT [facility] MCHC 32.3 32 - 36 g/dL 04/06/2023 8:17 PM EDT [facility] RDW 15.6(H) 11.5 - 15.0 % 04/06/2023 8:17 PM EDT [facility] Platelets 375 150 - 450 X10E9/L 04/06/2023 8:17 PM EDT [facility] MPV 7.9 7 - 12 fL 04/06/2023 8:17 PM EDT [facility] Blood / Unknown 04/06/2023 1 2:40 PM EDT 04/06/2023 12:41 PM EDT us Wilmer Conti IT PROGRAMMER-PHYSICIAN OFFICE SPECIALIST LAB BLOOD ORDERABLES Final Result [facility] [address] [facility] [place] [address] documented in this encounter Visit Diagnoses Diagnosis Atrial fibrillation with RVR (CMS-HCC)- Primary documented in this encounter Care Teams Osteologist Relationship Specialty Start Date End Date [facility], [facility] [address] [place], [place] PCP - General Family Medicine 04/16/24 documented as of this encounter
--- OUTSIDE RECORDS SUMMARY | 2025-01-08 14:11 | XMS_ITS | Clinical Summary ---
Author Organization [facility] Healthcare Address [address] [place] [address] Care Team Providers Care Chute Man Name Role Phone Bradley Bejarano Primary Care Provider [phone] Allergies No known active allergies Medications Xarelto [...] Active Active Problems No known active problems Social History Tobacco Use Types Packs/Day Years [...] PM EDT Procedure Visit [facility] [address] [place] [phone] Robert Guzman, DPEdvin [address] [place] [address] Health Maintenance Due Date Last Done Comments CT Colonography 1954 Colonoscopy 1954 Colorectal Cancer Screening 1954 FIT-DNA 1954 FIT 1954 FOBT 1954 Sigmoidoscopy 1954 Pneumococcal Vaccine: 65+ Ye ars (2 of 2 - PCV) 04/25/2023 04/25/2022 Influenza Vaccine (#1) 2025 3, 04/25/2022, 04/19/2021, Additional history exists Insurance MEDICARE MEDICAID [place] Care Teams Chute Man Relationship Specialty Start Date End Date Bradley Bejarano PA [address] [place] [place] [address] PCP - General Family Medicine 10/02/24
--- OUTSIDE RECORDS SUMMARY | 2025-01-08 14:11 | XMS_ITS | Encounter Summary ---
Author Organization [facility] Sys tem Address [id number] [address] [place] [address] Care Team Providers Care Lock Assembler Name Role Phone Services, [facility] Primary Care Provider Encounter Details Date Type Department Care Team (Late st Contact Info) Description 06/06/2022 Orders Only [facility] [address] [place] [phone] Mariana Wade, TUBE REPAIRER-TIER AND DETONATOR [address] [place], [place] [phone] ICD (implantable cardioverter-defibrill ator) in place Social [...] hospital to home General Yes Laurie Villar, TUBE REPAIRERINNA Note: Evaluation of progress towards goal: discharge home with hinduism/friends support. <enter goal here> General Yes Sunita [...] place documented in this encounter Care Teams Lock Assembler Relationship Specialty Start Date End Date [facility], [address] PCP - General Family Medicine 04/16/24 documented as of this encounter
--- OUTSIDE RECORDS SUMMARY | 2025-01-08 14:11 | XMS_ITS | Encounter Summary ---
Author Organization [facility] tem Address [id number] [address] [place] [address] Care Team Providers Care Access Coordinator Name Role Phone Services, [facility] Primary Care Provider Encounter Details Date Type Department Care Team (Late st Contact Info) Description 11/02/2021 Telephone [facility] [address] [place] [phone] Stacy Saldana, SANTY Social History Tobacco Use [...] hospital to home General Yes Laurie Villar, ENGINEERING DESIGN SUPERVISOR-DECK SCALER Note: Evaluation of progress towards goal: discharge home with methodist/friends support. <enter goal here> General Yes Sunita Tomlinson, CYBER DEFENSE FORENSICS ANALYST Note: Evaluation of progress towards goal: plan home self care SNF General Yes Cathryn Kapadia, CYBER DEFENSE FORENSICS ANALYST Note: Evaluation of progress towards goal: Patient likely will discharge to a SNF documented as of this encounter Visit Diagnoses Not on filedocumented in this encounter Care Teams Access Coordinator Relationship Specialty Start Date End Date [facility], [facility] [address] [place], [place] PCP - General Family Medicine 04/16/24 documented as of this encounter
--- OUTSIDE RECORDS SUMMARY | 2025-01-08 14:11 | XMS_ITS | Encounter Summary ---
Author Organization [facility] Address [id number] [address] [place] [address] Care Team Providers Care Inside Sales Director Name Role Phone Services, [facility] Primary Care Provider Encounter Details Date Type Department Care Team (Late st Contact Info) Description 11/05/2021 Telephone [facility] [address] [place] [address] Di London CNA Social History [...] hospital to home General Yes Laurie Villar, SPRING BENDER-PRINTING BINDERY ASSISTANT Note: Evaluation of progress towards goal: discharge home with sabianism/friends support. <enter goal here> General Yes Sunita Tomlinson, ALANIS Note: Evaluation of progress towards goal: plan home self care SNF General Yes Cathryn Kapadia, APARTMENT GROUNDSKEEPER Note: Evaluation of progress towards goal: Patient likely will discharge to a SNF documented as of this encounter Visit Diagnoses Not on filedocumented in this encounter Care Teams Inside Sales Director Relationship Specialty Start Date End Date [facility], [facility] [address] [place], [place] PCP - General Family Medicine 04/16/24 documented as of this encounter
--- OUTSIDE RECORDS SUMMARY | 2025-01-08 14:12 | XMS_ITS | Encounter Summary ---
Author Organization [employer] tem Address [id number] [address] [place] [address] Care Team Providers Care Paper Core Machine Operator Name Role Phone Services, [facility] Primary Care Provider Encounter Details Date Type Department Care Team (Latest Contact Info) Description 01/01/2025 Travel Social History Tobacco Use Types Packs/Day Years [...] hospital to home General Yes Laurie Villar, HYDROGEN OPERATOR-INSOLE STIFFENER Note: Evaluation of progress towards goal: discharge home with jew/friends support. <enter goal here> General Yes Sunita Tomlinson, ALANIS Note: Evaluation of progress towards goal: plan home self care SNF General Yes Cathryn Kapadia LSW Note: Evaluation of progress towards goal: Patient likely will discharge to a SNF documented as of this encounter Visit Diagnoses Not on filedocumented in this encounter Care Teams Paper Core Machine Operator Relationship Specialty Start Date End Date [facility], [facility] [address] [place], [place] PCP - General Family Medicine 04/16/24 documented as of this encounter
--- OUTSIDE RECORDS SUMMARY | 2025-01-08 14:12 | XMS_ITS | Encounter Summary ---
Author Organization [facility] Address [id number] [address] [place] [address] Care Team Providers Care Optoelectronics Engineer Name Role Phone Services, [facility] Primary Care Provider Encounter Details Date Type Department Care Team (Late st Contact Info) Description 09/27/2021 Telephone [facility] [address] [place] [phone] Stacy Saldana, SANTY Social History Tobacco Use [...] to home General Yes Villar, Laurie L, TERRAZZO LAYER HELPER-BOX TRUCK DRIVER Note: Evaluation of progress towards goal: discharge home with rastafarian/friends support. <enter goal here> General Yes Sunita Tomlinson, SUBSTATION MANAGER Note: Evaluation of progress towards goal: plan home self care SNF General Yes Cathryn Kapadia, SUBSTATION MANAGER Note: Evaluation of progress towards goal: Patient likely will discharge to a SNF documented as of this encounter Visit Diagnoses Not on filedocumented in this encounter Care Teams Optoelectronics Engineer Relationship Specialty Start Date End Date [facility], [facility] [address] [place], [place] PCP - General Family Medicine 04/16/24 documented as of this encounter
--- OUTSIDE RECORDS SUMMARY | 2025-01-08 14:12 | XMS_ITS | Encounter Summary ---
Author Organization [facility] tem Address [id number] [address] [place] [address] Care Team Providers Care Conservation Coordinator Name Role Phone Services, [facility] Primary Care Provider Reason for Visit * Reason Onset Date Comments Appointment 08/26/2024 Encounter Details Date Type Department Care Team (Late st Contact Info) Description 08/26/2024 [facility]phone [facility] [address] [place] [phone] Marisela Yi [facility] Appointment Social History Tobacco Use Types Packs/Day [...] hospital to home General Yes Laurie Villar, ENDOCRINOLOGY PHYSICIAN-SUPERVISOR FIBER LOCKING Note: Evaluation of progress towards goal: discharge home with confucianist/friends support. <enter goal here> General Yes Sunita Tomlinson, ALANIS Note: Evaluation of progress towards goal: plan home self care SNF General Yes Cathryn Kapadia, WATER INSPECTOR Note: Evaluation of progress towards goal: Patient likely will discharge to a SNF documented as of this encounter Visit Diagnoses Not on filedocumented in this encounter Care Teams Conservation Coordinator Relationship Specialty Start Date End Date [facility], [facility] [address] [facility] [place] [place] PCP - General Family Medicine 04/16/24 documented as of this encounter
--- OUTSIDE RECORDS SUMMARY | 2025-01-08 14:12 | XMS_ITS | Encounter Summary ---
Author Organization [facility] Sys tem Address [facility]-[id number] [address] [place] [address] Care Team Providers Care Field Care Coordinator Name Role Phone Services, [facility] Primary Care Provider Encounter Details Date Type Department Care Team (Late st Contact Info) Description 08/31/2021 Orders Only [facility] [address] [facility] [address] [place] [phone] External, Scanning Provider Social History Tobacco Use [...] hospital to home General Yes Laurie Villar, DESIGN ENG-CERTIFIED PEER SPECIALIST Note: Evaluation of progress towards goal: discharge home with caodaism/friends support. <enter goal here> General Yes Sunita Tomlinson, PERSONAL INJURY SPECIALIST Note: Evaluation of progress towards goal: plan home self care SNF General Yes Cathryn Kapadia, PERSONAL INJURY SPECIALIST Note: Evaluation of progress towards goal: [...] Edited Result - Final Performing Organization Address [facility] Co de Phone Number MANUALLY TRANSCRIBED RESULTS [...] on filedocumented in this encounter Care Teams Field Care Coordinator Relationship Specialty Start Date End Date Services, [facility] [address] [place], [place] PCP - General Family Medicine 04/16/24 documented as of this encounter
--- OUTSIDE RECORDS SUMMARY | 2025-01-08 14:12 | XMS_ITS | Encounter Summary ---
Author Organization [employer] Sys tem Address [id number] [address] [place] [address] Care Team Providers Care Senior Ui Software Engineer Name Role Phone Services, [facility] Primary Care Provider Encounter Details Date Type Department Care Team (Late st Contact Info) Description 09/04/2024 Orders Only [facility] [address] [place] [phone] Chula Santiago CMA AICD present, double chamber [...] to home General Yes Villar, Laurie L, CORN PRESS OPERATOR-ICT MANAGERS Note: Evaluation of progress towards goal: discharge home with hoahaoism/friends support. <enter goal here> General Yes Sunita Tomlinson, ALANIS Note: Evaluation of progress towards goal: plan home self care SNF General Yes Cathryn Kapadia, SHEET METAL CONTRACTOR Note: Evaluation of progress towards goal: Patient likely will discharge to a SNF documented as of this encounter Procedures Procedure Name Priority Date/Time Associated Diagnosis Comments DEVICE INTERROGATION Routine 09/04/2024 AICD present, double chamber documented in this encounter Results * Device Interrogation (09/04/2024) Anatomical Region Laterality Modality Other 09/04/2024 Vandana Brar APRN-ICT MANAGERS [facility] CARDI[facility] ORD ERABLES Final Result documented in this encounter Visit Diagnoses Diagnosis AICD present, double chamber documented in this encounter Care Teams Senior Ui Software Engineer Relationship Specialty Start Date End Date [facility] [address] [facility] [place], [place] PCP - General Family Medicine 04/16/24 documented as of this encounter
--- OUTSIDE RECORDS SUMMARY | 2025-01-08 14:12 | XMS_ITS | Encounter Summary ---
Author Organization [facility] Address [facility]-[id number] [address] 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 Procedures Nuc stress Lexiscan Vandana Brar APRN-CNP [address] [place] [address] Phone: tel: fax: Referral ID Status Reason Start Date Expiration Date V isits Requested Visits Authorized [id number] Pending Review 10/21/2024 10/21/2025 5 5 Encounter Details Date Type Department Care Team (Late st Contact Info) Description 10/21/2024 Orders Only [facility] [address] [place] [address] Vandana Brar APRN-CNP [address] [place] [address] Preoperative clearance (Primary Dx); 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
--- OUTSIDE RECORDS SUMMARY | 2025-01-08 14:12 | XMS_ITS | Patient Health Record ---
Author Organization [facility] vices Address [address] [place], [place] [id number] Care Team Providers Care Cad Engineer Name Role Phone Denys Bejaranoin Primary Care Provider [phone] Tatyana Pack Unavailable [phone] Kim Alison Unavailable [phone] ClarenceAnnmarie Matthew Unavailable [phone] zChandanazSheri masterson Unavailable [phone] Aris, Rocio Unavailable [phone] Allergies No Known Allergies Results Component Value Reference Range Notes POCT A1C Reviewed date:04/23/2024 10:10:14 AM Interpretation: Performing Lab: Notes/Report: POCT A1C Reviewed date:07/23/2024 01:32:43 PM Interpretation: Performing Lab: Notes/Report: POCT A1C Reviewed date:11/06/2024 01:47:29 PM Interpretation: Performing Lab: Notes/Report: XR foot LT min 3V Reviewed date:03/27/2024 04:25:21 PM Interpretation: Performing Lab: Notes/Report: Source Facility: [place] [address] [place] [address] XRay Report Signed Patient: RADHA QUIÑONES MR#: [id number] : 1955 Acct:[id number] Age/Sex: 68 / M ADM Date: 03/22/24 Loc: WC Attending Dr: Mariana Solomon D.P.M. Ordering Physician: Mariana Solomon D.P.M. Date of Service: 03/22/24 Procedure(s): XR foot LT min 3V Accession Number(s): [id number] cc: IZZY SAM ; Mariana Solomon D.P.M. [facility] [place] [id number] Patient Name: RADHA QUIÑONES MRN: [id number] date: 1955 Sex: M Assigned Patient Location: Current Patient Location: Accession/Order Number: [id number] Exam Date: 03/22/2024 10:16 Report Date: 03/25/2024 13:10 At the request of: MARIANA SOLOOMN Procedure: XR foot LT min 3V PROCEDURE: [...] Signed By: 03/25/24 1313 DD/ 1310 TD/TT: Statistical Clerk: ANKIT Pace Reviewed date:05/09/2024 12:13:11 PM Interpretation: Performing Lab: Notes/Report: Reported eGFR is based on the CKD-EPI 2020 equation that does not use a race coefficient. PERFORMED AT [address] [place] [address] SODIUM 135 134-146 mmol/L POTASSIUM 4.5 3.5-5.0 [...] High Risk CHOLESTEROL:HDL 4.3 1.0-5.0 PERFORMED AT [facility] [address] [facility],[place] [address] TSH WITH REFLEX FT4 Reviewed date:05/09/2024 12:13:05 PM Interpretation: Performing Lab: Notes/Report: TSH 4.67 0.49-4.67 uIU/mL PERFORMED A [address] [place] [address] Comprehensive Metabolic Pane l Reviewed date:07/31/2024 04:38:57 PM Interpretation: Performing Lab: Notes/Report: [facility] , Sodium 139 136-145 mmol/L Potassium 3.9 [...] 0.9 Performing Lab: see note ML - [facility] Lipid Panel Reviewed date:07/31/2024 04:38:45 PM Interpretation: Performing Lab: Notes/Report: [facility] , Triglycerides 276 <=150 mg/dL Cholesterol 163 [...] RISK Performing Lab: see note ML - [facility] Magnesium Reviewed date:07/31/2024 04:38:50 PM Interpretation: Performing Lab: Notes/Report: [facility] , Magnesium 1.9 1.8-2.4 mg/dL Performing Lab: see note ML - [facility] LB Reason For Referral Reason Worsening GFR Diagnosis 1 Chronic kidney disea se, stage 3 (N18.30) Referral Organization Main Referring Provider First Name Bradley Referring Provider Last Name Carlee Referring Provider Speciality Physician Mortgage Branch Manager Referred Provider Tristin Eduardo Referred Provider Specialty Nephrology General Notes Marisela Beard 08/03 11:28:13 AM >called patient and his authorized contact and gave the phone number and address for tristin eduardo. patient authorized contact states he will get patient scheduled for appt .Ez Aurora 08/20/2024 11:32:40 AM >Nilsa is scheduled for [...] Last Name Carlee Referring Provider Speciality Physician Mortgage Branch Manager Referred Provider [facility] Referred Provider Specialty Orthopedics General Notes Marisela Beard 08/2024 01:27:46 PM >{ {TOFIRSTNAME}} This is [facility] following up on an outstanding referral [...] 50 MG TAKE 1 TABLET BY MO [facility] EVERY DAY for 90 Active Lac-Hydrin 12 % 1 application Division Field Inspector ally Twice a day 11/02/2022 Active Pantoprazole Sodium 40 MG TAKE 1 TABLET BY MOUTH EVERY DAY FOR 90 DAYS for 90 Active Incontinence Brief Large - 1 brief for 90 days 09/26/2022 Active Xarelto 20 MG TAKE 1 TABLET BY YARELI EVERY DAY FOR 30 DAYS for 30 [...] work (ex. 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 No patient entered lisa a How often do you see or talk to people that you care about and feel close to? (For example: talking to friends on the phone, visiting friends or family, going to adventist or club meetings) More than 5 times a week patient entered data How stressed are you? Stress is when someone feels tense, nervous, anxious, or can't sleep at night because their mind is troubled Not at all patient entered data In the past year have you sp ent more than 2 nights in a row in a chcf, fpc, long term center, or juvenile correctional facility? No patient [...] Problem Status W/U Status Risk Notes Problem 06317957 Type 2 diabetes mellitus with diabetic chronic kidney disease (E11.22) Active confirmed Problem Hypomagnesemia (250767891) Hypomagnesemia (E83.42) Active confirmed Problem 97370657 Other chronic pain (G89.29) Active confirmed Problem 628808738 Lumbago with sciatica, right side (M54.41) Active confirmed Problem 017624439 Chronic kidney disease, stage 2 (mild) (N18.2) Active confirmed Problem 34496329 Urge incontinence (N39.41) Active confirmed Problem 132092927 Incontinence without sensory awareness (N39.42) Active confirmed Problem 282619815 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) Active confirmed Problem 900339859305502 Benign prostatic hyperplasia with lower urinary tract symptoms (N40.1) Active confirmed Problem 811256184 Primary osteoarthritis of both knees (M17.0) Active confirmed Problem Gastroesophageal reflux disease (364375092) GERD (gastroesophagea l reflux disease) (K21.9) Active confirmed Problem Overweight (809410920) Overweight (BMI 25.0-29.9) (E66.3) Active confirmed Problem Blood chemistry abnormal (455016554) Elevated TSH (R79.89) Active confirmed Problem Neck pain (54590467) Neck pain (M54.2) Active confirmed Problem 174716302 Lumbar spondylosis (M47.816) Active confirmed Problem 037152068 Ulcer of left foot, unspecified ulcer stage (L97.529) Active confirmed Problem 612058883 Amputation of toe of left foot (S98.132A) Active confirmed Problem Essential hypertension (67468132) Essential hypertension (I10) 2005 Active confirmed Comment:BP improved but still above goal range. asymptomatic . increase dose of lisinopril., Problem Atrial fibrillation (29809890) Paroxysmal atrial fibrillation with RVR (I48.0) Active confirmed Comment:keep follow-up as planned with cardiology heart rate/rhythm normal on exam today, patient asymptomatic take medications as prescribed (metoprolol) any concern with dizziness, fatigue, shortness of breath please seek immediate medical evaluation, Problem Hyperlipidemia (94903096) Hyperlipidemia (E78.5) 2005 Active confirmed Problem Dry skin (96016723) Dry skin (L85.3) Active confirmed Comment:-exc essively dry skin over feet & lower legs -is seeing inspector chief who prescribed salves -will check TSH as well to r/o any underlying issue, Problem Vitamin D deficiency (33335498) Vitamin D deficiency (E55.9) Active confirmed Comment:per recent labwork - mild deficiency. will start daily supplement, recheck prior to follow-up., Problem 55762576 Type 2 diabetes mellitus with other circulatory complications (E11.59) Inactive confirmed Problem 425310388 Type 2 diabetes mellitus with foot ulcer (E11.621) Inactive confirmed Problem Chronic renal disease, stage III (N18.30) Inactive confirmed Problem 909616580 Other sprain of unspecified shoulder joint, initial encounter (S43.499A) 2007 Problem resolved confirmed Problem 561795535 Anemia, unspecified type (D64.9) Problem resolved confirmed Problem Abrasion of scalp (685421450) Excoriation of scalp (S00.01XA) Problem resolved confirmed Comment:nonh ealing lesion on top of head since he hit it on his headboard of hie bed. derm referral please., Problem Orthostatic hypotension (60361896) Orthostatic syncope (I95.1) Problem resolved confirmed Comment:-pt has had 4 episodes so syncope in the last week -mostly in the morning right when he wakes up. thinking these are orthostatic sx -only medication that pt is on that could cause this is tamsulosin. has been on for a long time and pt needs it according to male fairing worker who comes with pt -no specific findings on PE -will order Echo to rule out heart cause -f/u in 3 weeks, Problem Neck pain (88190204) Neck pain, acute (M54.2) Problem resolved confirmed Comment:Neck pain resolved since taking medication. Advised to complete medication remaining. Should notify office if any recurrence of pain - can do a refill for medication if needed., Problem Wound, open, head (S01.90XA) Problem resolved confirmed Comment:scow hand zach issue with recurring sores on scalp. one has healed a new one has started, advised to continue using cream at home., Vital Signs Heart Rate 63 /min 12/05/2024 denies pain. Marisela Banks 12/05/2024 01:44:53 PM EDT > Temperature 97.4 degrees Fahrenheit 12/05/2024 lisbet es pain. Marisela Beard 12/05/2024 01:44:53 PM EDT > Respiratory Rate 18 /min 12/05/2024 denies pain . Marisela Beard 12/05/2024 01:44:53 PM EDT > Height-cm 171.45 cm 12/05/2024 denies pain. Tn Marisela gudino 12/05/2024 01:44:53 PM EDT > Oximetry 99 % 12/05/2024 denies pain. Tn Marisela gudino 12/05/2024 01:44:53 PM EDT > Blood pressure diastolic 67 mm Hg 12/05/2024 den ies pain. Marisela Beard 12/05/2024 01:44:53 PM EDT > Weight-kg 83.46 kg 11/06/2024 Marivel Decker 11/06/2024 01:22:43 PM EDT > Marisela Beard 11/06/2024 01:46:56 PM EDT > Height 67.50 in 12/05/2024 denies pain. Tn Marisela gudino 12/05/2024 01:44:53 PM EDT > [...] Location Date Provider Diagnosis Main [address] [place], [place] [id number] 01/16/2024 Alison Alvarez Lumbar spondylosis M47.816 and Other chronic pain G89.29 Main [address] [place] [id number] 04/23/2024 Rocio Aris Type 2 diabetes me llitus with diabetic chronic kidney disease E11.22 ; Elevated TSH R79.89 ; Hyperlipidemia E78.5 ; Essential hypertension I10 ; Dietary counseling Z71.3 ; Exercise counseling Z71.82 and Overweight (BMI 25.0-29.9) E66.3 Main [address] [place] [id number] 05/16/2024 Rocio Aris Hyperlipidemia E78 .5 ; Essential hypertension I10 ; Chronic kidney disease, stage 2 (mild) N18.2 ; GERD (gastroesophageal reflux disease) K21.9 and Hypomagnesemia E83.[address] [place], [place] [id number] 07/23/2024 Bradley Studd Type 2 diabetes me llitus with other circulatory complications E11.[address] [place], [place] [id number] 07/30/2024 Bradley Studd Essential hyperten esther I10 Main [address] [facility] [place] [id number] 08/06/2024 Bradley Studd Chronic kidney dis ease, stage 3 N18.30 and Nausea R11.0 Main [address] [place] [id number] 09/18/2024 Bradley Studd Primary osteoarthr itis of both knees M17.[address] [place], [place] [id number] 11/06/2024 Bradley Studd Type 2 diabetes me llitus with diabetic chronic kidney disease E11.22 and Essential hypertension I10 [address] [facility] [place] [id number] 12/05/2024 Bradley Studd Type 2 diabetes me llitus with diabetic chronic kidney disease E11.22 and Weakness R53.1 Main [address] [place], [place] [id number] 01/10/2024 Tatyana Pack Lumbar paraspinal muscle spasm M62.830 [address] [address] [facility] [place] [address] 01/16/2024 Alison Alvarez [address] [facility] [place] [address] 01/29/2024 Alison Alvarez [address] [facility] [place] [address] 01/29/2024 Alison Alvarez Main [address] [place], [place] [id number] 01/29/2024 Alison Alvarez Main [address] [facility] [place] [id number] 01/29/2024 Alison Alvarez [address] [facility] [place] [address] 02/01/2024 Alison Alvarez Main [address] [place], [place] [id number] 02/05/2024 Alison Somerss Type 2 diabetes me llitus with diabetic chronic kidney disease E11.[address] [place], [place] [id number] 03/06/2024 Alison Alvarez Type 2 diabetes me llitus with diabetic chronic kidney disease E11.22 [address] [facility] [place] [address] 03/14/2024 Alison Alvarez Main [address] [place], [place] [id number] 03/21/2024 Alison Alvarez Type 2 diabetes me llitus with diabetic chronic kidney disease E11.[address] [place], [place] [id number] 03/21/2024 Alisonailyn Somerss Main [address] [place], [place] [id number] 03/22/2024 Annmarie Clarence Vitamin D deficien cy E55.[address] [place], [place] [id number] 03/28/2024 Alison Alvarez [address] [facility] [place] [place] [address] 04/25/2024 Rocio Aris Main [address] [place], [place] [id number] 04/25/2024 Rocio Aris Main [address] [place], [place] [id number] 04/25/2024 Rocio Aris Main [address] [place], [place] [id number] 04/25/2024 Rocio Aris Main [address] [place], [place] [id number] 05/02/2024 Rocio Aris Main [address] [place], [place] [id number] 05/16/2024 Rocio Aris Main [address] [place], [place] [id number] 05/16/2024 Rocio Aris Hypomagnesemia E83 .[address] [place], [place] [id number] 05/22/2024 Rocio Aris Main [address] [place], [place] [id number] 06/05/2024 Rocio Aris Medication refill Z76.[address] [place], [place] [id number] 06/19/2024 Rocio Aris Type 2 diabetes me llitus with diabetic chronic kidney disease E11.[address] [place], [place] [id number] 07/12/2024 Rocio Aris Main [address] [place], [place] [id number] 07/15/2024 Rocio Aris Main [address] [place], [place] [id number] 07/15/2024 Rocio Aris Main [address] [place], [place] [id number] 07/30/2024 Bradley Studd Main [address] [place], [place] [id number] 08/05/2024 Bradley Studd Type 2 diabetes me llitus with other circulatory complications E11.[address] [place], [place] [id number] 08/07/2024 Bradley Studd Main [address] [place], [place] [id number] 08/07/2024 Bradley Studd Main [address] [place], [place] [id number] 09/02/2024 Bradley Studd Hyperlipidemia E78 .[address] [place], [place] [id number] 09/09/2024 Bradley Studd Main [address] [place], [place] [id number] 09/23/2024 Bradley Studd Main [address] [place], [place] [id number] 09/30/2024 Bradley Studd Hypomagnesemia E83 .42 and Type 2 diabetes mellitus with diabetic chronic kidney disease E11.[address] [place], [place] [id number] 10/14/2024 Bradley Studd Main [address] [place], [place] [id number] 10/21/2024 Bradley Studd Main [address] [place], [place] [id number] 10/31/2024 Bradley Studd Type 2 diabetes me llitus with other circulatory complications E11.59 Main [address] [place] [id number] 11/04/2024 Bradley Studd Main [address] [place], [place] [id number] 11/20/2024 Bradley Studd Medication refill Z76.0 and GERD (gastroesophageal reflux disease) K21.9 Main [address] [place], [place] [id number] 11/22/2024 Bradley Studd Main [address] [place] [id number] 12/04/2024 Bradley Studd Main [address] [place], [place] [id number] 12/05/2024 Bradley Studd Main [address] [place] [id number] 12/18/2024 Bradley Studd Type 2 diabetes me [...] referral for home OT or PT to [facility] with his strength 12/18/2024 Type 2 diabetes [...] on jardiance 09/02/2024 Hyperlipidemia (ICD-10 - E78.5) 01/10/2024 Lumbar paraspinal muscle spasm (ICD-10 - [...] montior if worsneing then will refer to Topography Technician 09/30/2024 Type 2 diabetes mellitus with [...] advised to schedule an appt with his group controller. Discussed having diet low in salt and exercise. 04/23/2024 Dietary counseling (ICD-10 - Z71.3) 05/16/2024 Hypomagnesemia (ICD-10 - E83.42) Needs refill. Will check labs 04/23/2024 Exercise counseling (ICD-10 - Z71.82) 04/23/2024 Overweight (BMI 25.0-29.9) (ICD-10 - E66.3) Plan Of Treatment Next Appt Details Provider Name:Bradley Bejarano, 02/04/2025 01:45:00 PM, [address] [place] [place], [id number], Insurance Providers Payer Name Payer Address Payer Phone Subscriber Number Group Number Insured Name Patient Relationship to Insured Coverage Start Date Coverage End Date Medicare NGS PPS [address] [place], [place] [id number] Radha Quiñones Self - patient is the insured 9 [employer] [address] [place], [place] [id number] Radha Quiñones Self - patient is the [...]
--- OUTSIDE RECORDS SUMMARY | 2025-01-08 14:12 | XMS_ITS | Encounter Summary ---
Author Organization [facility] Address [id number] [address] [place] [address] Care Team Providers Care Summer Babysitter Name Role Phone Services, [facility] Primary Care Provider Encounter Details Date Type Department Care Team (Late st Contact Info) Description 09/04/2024 Orders Only [facility] [address] [place] [phone] Vandana Brar, WORM SORTER-ON CAR SUPERVISOR [address] [place] [address] Social History Tobacco Use Types Packs/Day Years [...] hospital to home General Yes Laurie Villar, WORM SORTER-ON CAR SUPERVISOR Note: Evaluation of progress towards goal: [...] on filedocumented in this encounter Care Teams Summer Babysitter Relationship Specialty Start Date End Date [facility], [facility] [address] [place], [place] PCP - General Family Medicine 04/16/24 documented as of this encounter
--- OUTSIDE RECORDS SUMMARY | 2025-01-08 14:12 | XMS_ITS | Encounter Summary ---
Author Organization [facility] Address [id number] [address] [place] [address] Care Team Providers Care Cage Operator Name Role Phone Services, [facility] Primary Care Provider Encounter Details Date Type Department Care Team (Late st Contact Info) Description 08/31/2021 Orders Only [facility] [address] [place] [id number] Mariana Wade, CHIEF EMBALMER-CORONER FORENSIC TECHNICIAN [address] [place], [place] [id number] AICD present, double chamber- [employer]tr[employer] Social History [...] of progress towards goal: discharge home with yazidism/friends support. <enter goal here> General Yes Sunita [...] [employer] documented in this encounter Care Teams Cage Operator Relationship Specialty Start Date End Date Services, [facility] [address] [place], [place] PCP - General Family Medicine 04/16/24 documented as of this encounter
--- OUTSIDE RECORDS SUMMARY | 2025-01-08 14:29 | XMS_ITS | Clinical Summary ---
Author Organization [facility] Address [address] [place] [address] Care Team Providers Care Commercial Loan Processor Name Role Phone Unavailable Primary Care Provider [...]
--- OUTSIDE RECORDS SUMMARY | 2025-01-08 14:29 | XMS_ITS | Encounter Summary ---
Author Organization [facility] Address [id number] [address] [place] [address] Care Team Providers Care Range Scientist Name Role Phone Services, [facility] Primary Care Provider Encounter Details Date Type Department Care Team (Late st Contact Info) Description 07/28/2020 [facility] [address] [facility] [place] [phone] Dwain Lynn MD [address] [place] [address] Social History Tobacco Use Types Packs/Day Years [...] If that doesn't work, patient to call [facility] at . Marlene Nunez RN 07/28/20 1004 documented in this encounter Plan of Treatment Not on file documented as of this encounter Goals Goal Patient Goal Type Associated Problems Recent Progress Patient-Stated? Author safe transition from hospital to home General Yes Laurie Villar, FISHING TOOL OPERATOR-COLLEGE ADMISSIONS COUNSELOR Note: Evaluation of progress towards goal: discharge home with baptism/friends support. <enter goal here> General Yes Sunita Tomlinson LSW Note: Evaluation of progress towards goal: plan home self care documented as of this encounter Visit Diagnoses Not on filedocumented in this encounter Care Teams Range Scientist Relationship Specialty Start Date End Date Services, [facility] [address] [place], [place] PCP - General Family Medicine 04/16/24 documented as of this encounter
--- OUTSIDE RECORDS SUMMARY | 2025-01-08 14:29 | XMS_ITS | Encounter Summary ---
Author Organization [facility] Address [facility] [id number] [address] [place] [address] Care Team Providers Care Machinist Bench Name [facility] Provider Encounter Details Date Type Department Care Team (Late st Contact Info) Description 09/07/2016 Documentation [facility] [address] [place] [address] [address] [place] [phone] Frederic Thorne MD [address] [place] [address] Social History Tobacco Use Types Packs/Day Years [...] documented as of this encounter Care Teams Machinist Bench Relationship Specialty Start Date End Date Services, [facility] [address] [place], [place] PCP - General Family Medicine 04/16/24 documented as of this encounter
--- OUTSIDE RECORDS SUMMARY | 2025-01-08 14:29 | XMS_ITS | Encounter Summary ---
Author Organization [facility] Address [facility] [id number] [address] [place] [address] Care Team Providers Care Visual Merchandising Coordinator Name Role Phone Services, [facility] Primary Care Provider Encounter Details Date Type Department Care Team (Late st Contact Info) Description 09/21/2021 Telephone [facility] [address] [place] [phone] Stacy Saldana, SANTY Social History Tobacco Use [...] to home General Yes Villar, Laurie L, DIMPLING MACHINE OPERATOR-SALES CENTER ASSOCIATE Note: Evaluation of progress towards goal: discharge home with mandaen/friends support. <enter goal here> General Yes Sunita Tomlinson, FUNCTIONAL DIRECTOR Note: Evaluation of progress towards goal: plan home self care SNF General Yes Cathryn Kapadia, FUNCTIONAL DIRECTOR Note: Evaluation of progress towards goal: Patient likely will discharge to a SNF documented as of this encounter Visit Diagnoses Not on filedocumented in this encounter Care Teams Visual Merchandising Coordinator Relationship Specialty Start Date End Date [facility], [facility] [address] [place], [place] PCP - General Family Medicine 04/16/24 documented as of this encounter
--- OUTSIDE RECORDS SUMMARY | 2025-01-08 14:29 | XMS_ITS | Encounter Summary ---
Author Organization [employer] Sys tem Address [facility]-[id number] [address] [place] [address] Care Team Providers Care Animal Science Professor Name Role Phone Services, [facility] Primary Care Provider Encounter Details Date Type Department Care Team (Late st Contact Info) Description 07/28/2020 [facility]phone [facility] [address] [facility] [place] [phone] Dwain Lynn MD [address] [place] [address] Social History Tobacco Use Types Packs/Day Years [...] hospital to home General Yes Laurie Villar, LAWN AND GARDEN TECHNICIAN-TOOL CLERK Note: Evaluation of progress towards goal: discharge home with congregation/friends support. <enter goal here> General Yes Sunita Tomlinson LSW Note: Evaluation of progress towards goal: plan home self care documented as of this encounter Visit Diagnoses Not on filedocumented in this encounter Care Teams Animal Science Professor Relationship Specialty Start Date End Date Services, [facility] [address] [place], [place] PCP - General Family Medicine 04/16/24 documented as of this encounter
--- OUTSIDE RECORDS SUMMARY | 2025-01-08 14:29 | XMS_ITS | Encounter Summary ---
Author Organization [facility] [employer] [facility] tem Address [id number] [address] [place] [address] Care Team Providers Care Manager Validation Name Role Phone Services, [facility] Primary Care Provider Encounter Details Date Type Department Care Team (Late st Contact Info) Description 03/09/2023 Orders Only [facility] Cardiology [address] [place] [phone] Yoni Espinoza MD [address] [place] [address] Ventricular tachycardia ([facility]) Social History Tobacco Use Types Packs/Day [...] hospital to home General Yes Laurie Villar, HIDE SALTER-ART CONSERVATOR Note: Evaluation of progress towards goal: discharge home with islam/friends support. <enter goal here> General Yes Sunita Tomlinson, ALANIS Note: Evaluation of progress towards goal: plan home self care SNF General Yes Cathryn Kapadia, SUPERVISOR GELATIN PLANT Note: Evaluation of progress towards goal: Patient likely will discharge to a SNF documented as of this encounter Procedures Procedure Name Priority Date/Time Associated Diagnosis Comments DEVICE INTERROGATION Routine 03/08/2023 Ventricular tachycardia ([facility]) documented in this encounter Results * Device Interrogation (03/08/2023) Anatomical Region Laterality Modality Other us Yoni Espinoza MD CV CARDIAC SERVICES ORDERABLES Final Result documented in this encounter Visit Diagnoses Diagnosis Ventricular tachycardia ([facility]) Paroxysmal ventricular tachycardia documented in this encounter Care Teams Manager Validation Relationship Specialty Start Date End Date Services, [facility] [address] [place], [place] PCP - General Family Medicine 04/16/24 documented as of this encounter
--- OUTSIDE RECORDS SUMMARY | 2025-01-08 14:30 | XMS_ITS | Encounter Summary ---
Author Organization [facility] Sys tem Address [facility]-[id number] [address] [place] [address] Care Team Providers Care Rice Field Worker Name Role Phone Services, [facility] Primary Care Provider Encounter Details Date Type Department Care Team (Late st Contact Info) Description 09/04/2020 Orders Only [facility] Cardiology [address] [place] [phone] External, Scanning Provider Social History Tobacco Use [...] hospital to home General Yes Laurie Villar, GENERATOR MAN-FURNACE DOOR TENDER Note: Evaluation of progress towards goal: [...] on filedocumented in this encounter Care Teams Rice Field Worker Relationship Specialty Start Date End Date Services, [facility] [address] [place], [place] PCP - General Family Medicine 04/16/24 documented as of this encounter
--- OUTSIDE RECORDS SUMMARY | 2025-01-08 14:30 | XMS_ITS | Encounter Summary ---
Author Organization [facility] tem Address [facility]-[id number] [address] [place] [address] Care Team Providers Care Substation Operator Helper Generation Name Role Phone Services, [facility] Primary Care Provider Encounter Details Date Type Department Care Team (Late st Contact Info) Description 01/18/2024 Orders Only [facility] [address] [place] [phone] Emery Haq PA [address] [facility] [place], [place] [phone] Social History Tobacco Use Types Packs/Day Years [...] hospital to home General Yes Laurie Villar, HEAD COACH-CONCRETE PUMP OPERATOR Note: Evaluation of progress towards goal: [...] on filedocumented in this encounter Care Teams Substation Operator Helper Generation Relationship Specialty Start Date End Date Services, [facility] [address] [place], [place] PCP - General Family Medicine 04/16/24 documented as of this encounter
--- OUTSIDE RECORDS SUMMARY | 2025-01-08 14:30 | XMS_ITS | Encounter Summary ---
Author Organization [facility] tem Address [facility]-[id number] [address] [place] [address] Care Team Providers Care Dress Operator Name Role Phone Services, [facility] Primary Care Provider Encounter Details Date Type Department Care Team (Late st Contact Info) Description 09/07/2016 Documentation [facility] [address] [place] [phone] Frederic Thorne MD [address] [place] [phone] Social History Tobacco Use Types Packs/Day Years [...] documented as of this encounter Care Teams Dress Operator Relationship Specialty Start Date End Date Services, [facility] [address] [place], [place] PCP - General Family Medicine 04/16/24 documented as of this encounter
== END 2025-01-08 14:10 | disposition home or self-care (01) ==
LOC: WC 14:09
PROVIDERS: Visit Provider Podiatrist Foot & Ankle Surgery
DX: E11.621 Type 2 diabetes mellitus with foot ulcer (principal); L97.422 Non-pressure chronic ulcer of left heel and midfoot with fat layer exposed; S90.512A Abrasion, left ankle, initial encounter; L97.322 Non-pressure chronic ulcer of left ankle with fat layer exposed
CPT/HCPCS: A6213; G0463

== ENCOUNTER 2025-01-29 15:07 | Outpatient (OUT) | payer MEDICARE, MEDICAID, SELFPAY ==
--- OUTSIDE RECORDS SUMMARY | 2024-11-18 09:00 | XMS_ITS ---
Author Organization [facility] vices Address [address] [place] [id number] Care Team Providers Care Milk Tester Name Role Phone Bradley Bejarano Primary Care Provider REASON FOR VISIT DM & HTN Social History Sex Assigned At : Social History Observation Description Sex Assigned At Male Encounters Encounter Location Date Provider Diagnosis Main [address] [place] [id number] 11/18/2024 Bradley Bjearano Plan Of Treatment Next Appt Details Provider Name:Bradley Bejarano, 01/29/2025 04:15:00 PM, [address] [place], [place], [id number], Provider Name:Bradley Bejarano, 02/04/2025 01:45:00 PM, [address] [place], [id number], Progress Notes * Tomas QUIÑONESDOB:1955 (69 yo M)Acc No.[id number]:11/18/2024 Medical Note Patient: Nneka POLANCO Tomas Veras Provider: Eda Bejarano :1955 A ge:69 Y S ex:Male Date:11/18/2024 Address:[address] , [address], [place], [id number] Subjective: * Chief Complaints: * 1 . DM & HTN. * Medical History: Objective: * Vitals: Assessment: Plan: * Treatment: * Billing Information: * Visit Code: * Procedure Codes: * Electronic signature of EDWARD Parra on 01/29/2025 at 03:20 PM EDT Sign off status: Pending * Provider: Eda Bejarano Date: 0 11/18/2024 Generated for Camille clement/Malena/Bc on: 0 01/29/2025 03:20 PM EDT
--- OUTSIDE RECORDS SUMMARY | 2024-12-11 07:51 | XMS_ITS ---
Author Organization [facility] [place] Address [address] [place] [address] Care Team Providers Care Colorer Name Role Phone Tomas Thapa Primary Care Provider Juan Orantes Unavailable [phone] Allergies No Known Allergies REASON FOR VISIT Bio Medical Technician chart prep Medications Medication SIG (Take, Route, Frequency, Duration) Notes Start Date End Date Status metFORMIN HCl ER 500 MG 2 tablets orally BID Active Magnesium Oxide 400 MG 1 tablet with food Orally Once a day Active Pantoprazole Sodium 40 MG 1 tablet 1/2 to 1 hour before morning meal Orally Once a day Active Metoprolol Succinate ER 100 MG 1 tablet Orally Once a day Active Lac-Hydrin 12% lotion 1 application externally twice a day Active Amiodarone HCl 200 MG 1 tablet Orally Once a day Active Jardiance 25 MG 1 tablet Orally Once a day Active Basaglar KwikPen 100 UNIT/ML as directed Subcutaneous Active Atorvastatin Calcium 20 MG 1 tablet Orally Once a day Active Aspirin 81 81 MG 1 tablet Orally Once a day Active Tamsulosin HCl 0.4 MG 2 capsule Orally Once a day Active Acidophilus Probiotic 100 MG as directed Orally Activ e Sertraline HCl 50 MG 1 tablet Orally Onc e a day Active Xarelto 20 MG 1 tablet with food Orally Once a day Active Vitamin D3 25 MCG (1000 UT) 1 capsule Orally Once a day Active Encounters Encounter Location Date Provider Diagnosis [facility] [address] [place] [address] 12/11/2024 Juan Swain Plan Of Treatment Next Appt Details Provider Name:Juan Swain, 04/14/2025 12:20:00 PM, [address], [place], [address], Progress Notes * Tomas QUIÑONES JDOB:1955 (69 yo M)Acc No.[id number]:12/11/2024 Patient: Tomas PIPER :1955 A ge:69 Y S ex:Male Address:[address] [place] [address] , [address], [place] [address] Subjective: * Chief Complaints: * N p chart prep * Medical History: * Surgical History: c ataract extraction- bilateral skin cancer removal on right hand 12/2014cardiac pacemaker/ defibrillation three toes removed from left foot 2022 * Hospitalization/Major Diagno stic Procedure: b ack and foot pain * Family History: F ather: . M other: . B rother(s): . S ister(s): .?Paternal Grandfather: . P aternal Grandmother: . M aternal Grandfather: . M aternal Grandmother: . * Medications: T akingAcidophilus Probiotic(Lactobacillus) 100 MG Capsule as directed Orally Amiodarone HCl 200 MG Tablet 1 tablet Orally Once a day Aspirin 81(Aspirin) 81 MG Tablet Delayed Release 1 tablet Orally Once a day Atorvastatin Calcium 20 MG Tablet 1 tablet Orally Once a day Basaglar KwikPen(Insulin Glargine) 100 UNIT/ML Solution Pen-injector as directed Subcutaneous Jardiance(Empagliflozin) 25 MG Tablet 1 tablet Orally Once a day Cuauhtemoc , Notes to Pharmacist: 12% lotion 1 application externally twice a dayMagnesium Oxide 400 MG Tablet 1 tablet with food Orally Once a day metFORMIN HCl ER 500 MG Tablet Extended Release 24 Hour 2 tablets orally BID Metoprolol Succinate ER 100 MG Tablet Extended Release 24 Hour 1 tablet Orally Once a day Pantoprazole Sodium 40 MG Tablet Delayed Release 1 tablet 1/2 to 1 hour before morning meal Orally Once a day Sertraline HCl 50 MG Tablet 1 tablet Orally Once a day Tamsulosin HCl 0.4 MG Capsule 2 capsule Orally Once a day Vitamin D3 25 MCG (1000 UT) Capsule 1 capsule Orally Once a day Xarelto(Rivaroxaban) 20 MG Tablet 1 tablet with food Orally Once a day Medication List reviewed and reconciled with the patientTaking Acidophilus Probiotic(Lactobacillus) 100 MG Capsule as directed Orally Taking Amiodarone HCl 200 MG Tablet 1 tablet Orally Once a day Taking Aspirin 81(Aspirin) 81 MG Tablet Delayed Release 1 tablet Orally Once a day Taking Atorvastatin Calcium 20 MG Tablet 1 tablet Orally Once a day Taking Basaglar KwikPen(Insulin Glargine) 100 UNIT/ML Solution Pen-injector as directed Subcutaneous Taking Jardiance(Empagliflozin) 25 MG Tablet 1 tablet Orally Once a day Taking Lac- Hydrin , Notes to Pharmacist: 12% lotion 1 application externally twice a dayTaking Magnesium Oxide 400 MG Tablet 1 tablet with food Orally Once a day Taking metFORMIN HCl ER 500 MG Tablet Extended Release 24 Hour 2 tablets orally BID Taking Metoprolol Succinate ER 100 MG Tablet Extended Release 24 Hour 1 tablet Orally Once a day Taking Pantoprazole Sodium 40 MG Tablet Delayed Release 1 tablet 1/2 to 1 hour before morning meal Orally Once a day Taking Sertraline HCl 50 MG Tablet 1 tablet Orally Once a day Taking Tamsulosin HCl 0.4 MG Capsule 2 capsule Orally Once a day Taking Vitamin D3 25 MCG (1000 UT) Capsule 1 capsule Orally Once a day Taking Xarelto(Rivaroxaban) 20 MG Tablet 1 tablet with food Orally Once a day Medication List reviewed and reconciled with the patient * Allergies: N .K.D.A.no[Allergies Verified] Objective: * Vitals: * Physical Examination: Assessment: Plan: * Treatment: * Procedure Codes: * true * Date: Generated for Camille clement/Malena/Bc on: 0 01/29/2025 03:20 PM EDT
--- OUTSIDE RECORDS SUMMARY | 2025-01-29 15:18 | XMS_ITS | Encounter Summary ---
Author Organization [facility] tem Address [facility]-[id number] [address] [place] [address] Care Team Providers Care Storm Chaser Name Role Phone Services, [facility] Primary Care Provider Encounter Details Date Type Department Care Team (Late st Contact Info) Description 11/15/2021 Telephone [facility] [address] [place] [phone] Stacy Saldana, SANTY Social History Tobacco Use [...] to home General Yes Villar, Laurie L, PAINTINGS CONSERVATOR-APPLICATION PACKAGER Note: Evaluation of progress towards goal: discharge home with hinduism/friends support. <enter goal here> General Yes Sunita Tomlinson, APPARATUS REPAIR MECHANIC Note: Evaluation of progress towards goal: plan home self care SNF General Yes Cathryn Kapadia, APPARATUS REPAIR MECHANIC Note: Evaluation of progress towards goal: Patient likely will discharge to a SNF documented as of this encounter Visit Diagnoses Not on filedocumented in this encounter Care Teams Storm Chaser Relationship Specialty Start Date End Date [facility], [facility] [address] [place], [place] PCP - General Family Medicine 04/16/24 documented as of this encounter
--- OUTSIDE RECORDS SUMMARY | 2025-01-29 15:18 | XMS_ITS | Encounter Summary ---
Author Organization [facility] tem Address [facility]-[id number] [address] [place] [address] Care Team Providers Care Commercial Real Estate Sales Manager Name Role Phone Services, [facility] Primary Care Provider Encounter Details Date Type Department Care Team (Late st Contact Info) Description 11/12/2021 Telephone [facility] [address] [place] [address] Di London CNA Social History [...] hospital to home General Yes Laurie Villar, TAX DIRECTOR-TOBACCO DRUMMER Note: Evaluation of progress towards goal: discharge home with evangelical/friends support. <enter goal here> General Yes Sunita Tomlinson, ALANIS Note: Evaluation of progress towards goal: plan home self care SNF General Yes Cathryn Kapadia, GIS APPLICATION DEVELOPER Note: Evaluation of progress towards goal: Patient likely will discharge to a SNF documented as of this encounter Visit Diagnoses Not on filedocumented in this encounter Care Teams Commercial Real Estate Sales Manager Relationship Specialty Start Date End Date [facility], [facility] [address] [place], [place] PCP - General Family Medicine 04/16/24 documented as of this encounter
--- OUTSIDE RECORDS SUMMARY | 2025-01-29 15:18 | XMS_ITS | Encounter Summary ---
Author Organization [facility] tem Address [facility]-[id number] [address] [place] [address] Care Team Providers Care Broker Name Role Phone Services, [facility] Primary Care Provider Encounter Details Date Type Department Care Team (Late st Contact Info) Description 11/02/2021 Telephone [facility] [address] [place] [phone] Stacy Saldana, SANTY Social History Tobacco Use [...] hospital to home General Yes Laurie Villar, WAREHOUSE PICKER-MEDICAL CENTER DIRECTOR Note: Evaluation of progress towards goal: discharge home with sabianism/friends support. <enter goal here> General Yes Sunita Tomlinson, MANAGEMENT LIAISON Note: Evaluation of progress towards goal: plan home self care SNF General Yes Cathryn Kapadia, MANAGEMENT LIAISON Note: Evaluation of progress towards goal: Patient likely will discharge to a SNF documented as of this encounter Visit Diagnoses Not on filedocumented in this encounter Care Teams Broker Relationship Specialty Start Date End Date [facility], [facility] [address] [place], [place] PCP - General Family Medicine 04/16/24 documented as of this encounter
--- OUTSIDE RECORDS SUMMARY | 2025-01-29 15:18 | XMS_ITS | Encounter Summary ---
Author Organization [facility] tem Address [facility]-[id number] [address] [place] [address] Care Team Providers Care Bodily Injury Adjuster Name Role Phone Services, [facility] Primary Care Provider Encounter Details Date Type Department Care Team (Late st Contact Info) Description 11/05/2021 Telephone [facility] [address] [place] [address] Di London CNA Social History [...] hospital to home General Yes Laurie Villar, ROCKBOARD LATHER-VICE PRESIDENT BIOSTATISTICS Note: Evaluation of progress towards goal: discharge home with mandaen/friends support. <enter goal here> General Yes Sunita Tomlinson, ALNAIS Note: Evaluation of progress towards goal: plan home self care SNF General Yes Cathryn Kapadia, SHELL MOLD BONDER Note: Evaluation of progress towards goal: Patient likely will discharge to a SNF documented as of this encounter Visit Diagnoses Not on filedocumented in this encounter Care Teams Bodily Injury Adjuster Relationship Specialty Start Date End Date [facility], [facility] [address] [place], [place] PCP - General Family Medicine 04/16/24 documented as of this encounter
--- OUTSIDE RECORDS SUMMARY | 2025-01-29 15:18 | XMS_ITS | Encounter Summary ---
Author Organization [facility] [employer] tem Address [facility]-[id number] [address] [place] [address] Care Team Providers Care Handhole Machine Operator Name Role Phone Services, [facility] Primary Care Provider Encounter Details Date Type Department Care Team (Late st Contact Info) Description 10/11/2021 Abstract [facility] [address] [place] [phone] External, Scanning Provider Social History Tobacco Use [...] to home General Yes Laurie Villar, HEALTH CARE LEGAL ASSISTANT-ADVANCED ANALYTICS ASSOCIATE Note: Evaluation of progress towards goal: discharge home with islam/friends support. <enter goal here> General Yes Sunita Tomlinson LSW Note: Evaluation of progress towards goal: plan home self care SNF General Yes Cathryn Kapadia, CYLINDER INSPECTOR AND TESTER Note: Evaluation of progress towards goal: Patient [...] on filedocumented in this encounter Care Teams Handhole Machine Operator Relationship Specialty Start Date End Date [facility], [facility] [address] [place], [place] PCP - General Family Medicine 04/16/24 documented as of this encounter
--- OUTSIDE RECORDS SUMMARY | 2025-01-29 15:19 | XMS_ITS | Encounter Summary ---
Author Organization [facility] tem Address [facility]-[id number] [address] 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 Procedures Nuc stress Lexiscan Vandana Brar APRN-CNP [address] [place] [address] Phone: tel: fax: Referral ID Status Reason Start Date Expiration Date V isits Requested Visits Authorized [id number] Pending Review 10/21/2024 10/21/2025 5 5 Encounter Details Date Type Department Care Team (Late st Contact Info) Description 10/21/2024 Orders Only [facility] [address] [place] [address] Vandana Brar APRN-CNP [address] [place] [address] Preoperative clearance (Primary Dx); Coronary artery disease involving k[place]ina coronary artery of [place]ival[place] heart without angina pectoris Social History Tobacco [...] hospital to home General Yes Laurie Villar, TECHNICAL OPERATIONS SPECIALIST-BLANKER PRESS OPERATOR Note: Evaluation of progress towards goal: discharge home with mormonism/friends support. <enter goal here> General Yes Sunita [...] systolic cavity size is normal. Vandana Brar TECHNICAL OPERATIONS SPECIALIST-BLANKER PRESS OPERATOR CV STRESS ORDERABLES Fi nal Result documented in this encounter Visit Diagnoses Diagnosis Preoperative clearance- Primary Unspecified pre-operative examination Coronary artery disease involving kivalina coronary artery of k[place] heart without angina pectoris Preoperative clearance Unspecified pre-operative examination Coronary artery disease involving kivalina coronary artery of kival[place] heart without angina pectoris documented in this encounter Care Teams Senior Cyber Security Analyst Relationship Specialty Start Date End Date [facility], [facility] [address] [place], [place] PCP - General Family Medicine 04/16/24 documented as of this encounter
--- OUTSIDE RECORDS SUMMARY | 2025-01-29 15:19 | XMS_ITS | Encounter Summary ---
Author Organization [facility] Sys tem Address [facility]-[id number] [address] [place] [address] Care Team Providers Care French Binding Folder Name Role Phone Services, [facility] Primary Care Provider Encounter Details Date Type Department Care Team (Late st Contact Info) Description 08/31/2021 Orders Only [facility] Infectious Disease [address] [facility] [address] [place] [phone] External, Scanning Provider Social History Tobacco Use [...] hospital to home General Yes Laurie Villar, KENNEL MANAGER-APPRAISER LAND Note: Evaluation of progress towards goal: discharge home with synagogue/friends support. <enter goal here> General Yes Sunita Tomlinson, EQUIPMENT HIRE MANAGER Note: Evaluation of progress towards goal: plan home self care SNF General Yes Cathryn Kapadia, EQUIPMENT HIRE MANAGER Note: Evaluation of progress towards goal: [...] Edited Result - Final Performing Organization Address [facility] Co de Phone Number MANUALLY TRANSCRIBED [...] on filedocumented in this encounter Care Teams French Binding Folder Relationship Specialty Start Date End Date Services, [facility] [address] [place], [place] PCP - General Family Medicine 04/16/24 documented as of this encounter
--- OUTSIDE RECORDS SUMMARY | 2025-01-29 15:19 | XMS_ITS | Clinical Summary ---
Author Organization [facility] Address [address] [place] [address] Care Team Providers Care Mass Communications Professor Name Role Phone Bradley Bejarano Primary Care Provider [phone] Allergies No known active allergies Medications Xarelto 20 MG tablet Take 20 mg by mouth Daily 02/21/2024 Active tamsulosin (Flomax) 0.4 MG 24 hr capsule Active metFORMIN XR (Glucophage-XR) 500 MG 24 [...] Encounters Date Type Department Care Team Description 01/09/2025 1:30 PM EDT Procedure Visit [facility] [address] [place] [phone] Robert Guzman DPM Dermatophytosis of nail (Primary Dx); Dystrophic nail; Status post partial amputation of left foot (HCC); Angiopathy, diabetic (HCC); Diabetic polyneuropathy associated with type 2 diabetes mellitus (HCC) 01/09/2025 Bamboo flowsheet [facility] [address] [place] [phone] Robert Guzman DPM 01/09/2025 Travel from Last 3 Months Social History [...] - - Weight 81.6 kg (180 lb) 01/09/2025 1:25 PM EDT Height 175.3 cm (5' 9 ) 01/09/2025 1:25 PM EDT Body Mass Index 26.58 01/09/2025 1:25 PM EDT Plan of Treatment Upcoming Encounters Date Type Department Care Team (Late st Contact Info) Description 04/14/2025 1:15 PM EDT [facility] [address] [place] [phone] Robert Guzman DPM [address] [place], [place] [phone] Health Maintenance Due Date Last Done Comments CT Colonography 1954 Colonoscopy 1954 Colorectal Cancer Screening 1954 FIT-DNA 1954 FIT 1954 FOBT 1954 Sigmoidoscopy 1954 Pneumococcal Vaccine: 65+ Ye ars (2 of 2 - PCV) 04/25/2023 04/25/2022 Influenza Vaccine (#1) 2025 3, 04/25/2022, 04/19/2021, Additional history exists Insurance MEDICARE [place]ICAID [place] Care Teams Mass Communications Professor Relationship Specialty Start Date End Date Bradley Bejarano PA [address] [place], [place] [phone] PCP - General Family Medicine 10/02/24
--- OUTSIDE RECORDS SUMMARY | 2025-01-29 15:19 | XMS_ITS | Encounter Summary ---
Author Organization [facility] tem Address [facility]-[id number] [address] [place] [address] Care Team Providers Care Rn Case Manager Name Role Phone Services, [facility] Primary Care Provider Encounter Details Date Type Department Care Team (Late st Contact Info) Description 09/21/2021 Telephone [facility] - [facility] Care [facility] [address] [place] [phone] Stacy Saldana, SANTY Social History Tobacco Use [...] to home General Yes Villar, Laurie L, ROGUER-TRUSS BUILDER Note: Evaluation of progress towards goal: discharge home with lutheran/friends support. <enter goal here> General Yes Sunita Tomlinson, FAMILY COURT JUSTICE Note: Evaluation of progress towards goal: plan home self care SNF General Yes Cathryn Kapadia, FAMILY COURT JUSTICE Note: Evaluation of progress towards goal: Patient likely will discharge to a SNF documented as of this encounter Visit Diagnoses Not on filedocumented in this encounter Care Teams Rn Case Manager Relationship Specialty Start Date End Date [facility], [facility] [address] [place], [place] PCP - General Family Medicine 04/16/24 documented as of this encounter
--- OUTSIDE RECORDS SUMMARY | 2025-01-29 15:19 | XMS_ITS | Encounter Summary ---
Author Organization [facility] Sys tem Address [id number] [address] [place] [address] Care Team Providers Care Child Welfare Social Worker Name Role Phone Services, [facility] Primary Care Provider Encounter Details Date Type Department Care Team (Late st Contact Info) Description 06/06/2022 Orders Only [facility] [address] [place] [phone] Mariana Wade, SOFTWARE SYSTEMS ARCHITECT-CIRCULAR DISTRIBUTOR [address] [place], [place] [phone] ICD (implantable cardioverter-defibrill ator) in place Social [...] hospital to home General Yes Laurie Villar, SOFTWARE SYSTEMS ARCHITECTINNA Note: Evaluation of progress towards goal: discharge [...] place documented in this encounter Care Teams Child Welfare Social Worker Relationship Specialty Start Date End Date [facility], [address] PCP - General Family Medicine 04/16/24 documented as of this encounter
--- OUTSIDE RECORDS SUMMARY | 2025-01-29 15:19 | XMS_ITS | Encounter Summary ---
Author Organization [facility] tem Address [facility]-[id number] [address] [place] [address] Care Team Providers Care Office Technician Name Role Phone Services, [facility] Primary Care Provider Encounter Details Date Type Department Care Team (Late st Contact Info) Description 01/28/2022 Telephone [facility] - [facility] [address] [place] [phone] Di London CNA Social History Tobacco Use [...] hospital to home General Yes Laurie Villar, FLIGHT FOLLOWER-HEAD PAPER TESTER Note: Evaluation of progress towards goal: discharge home with temple/friends support. <enter goal here> General Yes Sunita Tomlinson, ALANIS Note: Evaluation of progress towards goal: plan home self care SNF General Yes Cathryn Kapadia, SENIOR PHARMACY TECHNICIAN Note: Evaluation of progress towards goal: Patient likely will discharge to a SNF documented as of this encounter Visit Diagnoses Not on filedocumented in this encounter Care Teams Office Technician Relationship Specialty Start Date End Date [facility], [facility] [address] [place], [place] PCP - General Family Medicine 04/16/24 documented as of this encounter
--- OUTSIDE RECORDS SUMMARY | 2025-01-29 15:19 | XMS_ITS | Encounter Summary ---
Author Organization [facility] The[facility] tem Address [id number] [address] [place] [address] Care Team Providers Care Microfilm Operator Name Role Phone Services, [facility] Primary Care Provider Encounter Details Date Type Department Care Team (Late st Contact Info) Description 12/07/2021 Orders Only [facility] [address] [place] [phone] Janelle James CMA AICAlexa present, double chamber [...] hospital to home General Yes Laurie Villar, FACILITIES PAINTER-DIAGNOSTIC ASSISTANT Note: Evaluation of progress towards goal: discharge home with yarsani/friends support. <enter goal here> General Yes Sunita Tomlinson LSW Note: Evaluation of progress towards goal: plan home self care SNF General Yes Cathryn Kapadia, HISTORICAL GUIDE Note: Evaluation of progress towards goal: Patient likely will discharge to a SNF documented as of this encounter Procedures Procedure Name Priority Date/Time Associated Diagnosis Comments DEVICE INTERROGATION Routine 12/07/2021 AICD present, double chamber documented in this encounter Results * Device Interrogation (12/07/2021) Anatomical Region Laterality Modality Other Mariana Wade APRN-DIAGNOSTIC ASSISTANT CV CARDIAC SERVICES OR DERABLES Final Result documented in this encounter Visit Diagnoses Diagnosis AICD present, double chamber documented in this encounter Care Teams Microfilm Operator Relationship Specialty Start Date End Date Services, [facility] [address] [place], [place] PCP - General Family Medicine 04/16/24 documented as of this encounter
--- OUTSIDE RECORDS SUMMARY | 2025-01-29 15:19 | XMS_ITS | Encounter Summary ---
Author Organization [facility] Address [id number] [address] [place] [address] Care Team Providers Care Mammalogist Name Role Phone Services, [facility] Primary Care Provider Encounter Details Date Type Department Care Team (Late st Contact Info) Description 09/27/2021 Telephone [facility] [address] [place] [phone] Stacy Saldana, SANTY Social History Tobacco Use [...] to home General Yes Villar, Laurie L, MOLD WORKER-POOL SERVICER Note: Evaluation of progress towards goal: discharge home with latter day/friends support. <enter goal here> General Yes Sunita Tomlinson, GINNER Note: Evaluation of progress towards goal: plan home self care SNF General Yes Cathryn Kapadia, GINNER Note: Evaluation of progress towards goal: Patient likely will discharge to a SNF documented as of this encounter Visit Diagnoses Not on filedocumented in this encounter Care Teams Mammalogist Relationship Specialty Start Date End Date [facility], [facility] [address] [place], [place] PCP - General Family Medicine 04/16/24 documented as of this encounter
--- OUTSIDE RECORDS SUMMARY | 2025-01-29 15:19 | XMS_ITS | Encounter Summary ---
Author Organization [facility] tem Address [id number] [address] [place] [address] Care Team Providers Care Senior Applications Engineer Name Role Phone Services, [facility] Primary Care Provider Encounter Details Date Type Department Care Team (Late st Contact Info) Description 09/04/2024 Orders Only [facility] [address] [place] [phone] Vandana Brar, TISSUE PACKER-SPRAY MACHINE TENDER [address] [place] [address] Social History Tobacco Use Types Packs/Day Years [...] hospital to home General Yes Laurie Villar, TISSUE PACKER-SPRAY MACHINE TENDER Note: Evaluation of progress towards goal: [...] filedocumented in this encounter Care Teams Senior Applications Engineer Relationship Specialty Start Date End Date [facility], [facility] [address] [place], [place] PCP - General Family Medicine 04/16/24 documented as of this encounter
--- OUTSIDE RECORDS SUMMARY | 2025-01-29 15:19 | XMS_ITS | Encounter Summary ---
Author Organization [facility] Sys tem Address [id number] [address] [place] [address] Care Team Providers Care Lathe Machinist Name Role Phone Services, [facility] Primary Care Provider Encounter Details Date Type Department Care Team (Late st Contact Info) Description 08/31/2021 Orders Only [facility] [address] [place] [phone] Mariana Wade, MOBILE NURSE-CHILD CARE TEACHER [address] [place], [place] [id number] AICD present, double chamber- Med[employer] Social History [...] [employer] documented in this encounter Care Teams Lathe Machinist Relationship Specialty Start Date End Date Services, [facility] [address] [place], [place] PCP - General Family Medicine 04/16/24 documented as of this encounter
--- OUTSIDE RECORDS SUMMARY | 2025-01-29 15:19 | XMS_ITS | Encounter Summary ---
Author Organization [employer] tem Address [id number] [address] [place] [address] Care Team Providers Care Trim Carpenter Name Role Phone Services, [facility] Primary Care Provider Encounter Details Date Type Department Care Team (Late st Contact Info) Description 09/04/2024 Orders Only [facility] [address] [place] [phone] Chula Santiago CMA AICD present, double chamber [...] to home General Yes Villar, Laurie L, DRILLING INSPECTOR-DATABASE SOFTWARE TECHNICIAN Note: Evaluation of progress towards goal: discharge home with sabianist/friends support. <enter goal here> General Yes Sunita Tomlinson, ALANIS Note: Evaluation of progress towards goal: plan home self care SNF General Yes Cathryn Kapadia, DRUM STOCK CLERK Note: Evaluation of progress towards goal: Patient likely will discharge to a SNF documented as of this encounter Procedures Procedure Name Priority Date/Time Associated Diagnosis Comments DEVICE INTERROGATION Routine 09/04/2024 AICD present, double chamber documented in this encounter Results * Device Interrogation (09/04/2024) Anatomical Region Laterality Modality Other 09/04/2024 Vandana Brar APRN-DATABASE SOFTWARE TECHNICIAN CV CARDIAC SERVICES ORD ERABLES Final Result documented in this encounter Visit Diagnoses Diagnosis AICD present, double chamber documented in this encounter Care Teams Trim Carpenter Relationship Specialty Start Date End Date [facility], [facility] [address] [place], [place] PCP - General Family Medicine 04/16/24 documented as of this encounter
--- OUTSIDE RECORDS SUMMARY | 2025-01-29 15:19 | XMS_ITS | Patient Health Record ---
Author Organization [facility] Address [address] [place], [place] [id number] Care Team Providers Care Vacuum Cleaner Repairer Name Role Phone Denys Bejaranoin Primary Care Provider Alison Alvarez Unavailable [phone] Annmarie Lima Unavailable [phone] Aris, Rocio Unavailable [phone] Allergies No Known Allergies Results Component Value Reference Range Notes POCT A1C Reviewed date:04/23/2024 10:10:14 AM Interpretation: Performing Lab: Notes/Report: POCT A1C Reviewed date:11/06/2024 01:47:29 PM Interpretation: Performing Lab: Notes/Report: POCT A1C Reviewed date:07/23/2024 01:32:43 PM Interpretation: Performing Lab: Notes/Report: XR foot LT min 3V Reviewed date:03/27/2024 04:25:21 PM Interpretation: Performing Lab: Notes/Report: Source Facility: [facility] [address] [place] [address] XRay Report Signed Patient: RADHA QUIÑONES MR#: [id number] : 1955 Acct:[id number] Age/Sex: 68 / M ADM Date: 03/22/24 Loc: WC Attending Dr: Mariana Solomon D.P.M. Ordering Physician: Mariana Solomon D.P.M. Date of Service: 03/22/24 Procedure(s): XR foot LT min 3V Accession Number(s): [id number] cc: IZZY SAM ; Mariana Solomon D.P.M. [facility] [place] [address] Patient Name: RADHA QUIÑONES MRN: [id number] date: 1955 Sex: M Assigned Patient Location: Current Patient Location: Accession/Order Number: [id number] Exam Date: 03/22/2024 10:16 Report Date: 03/25/2024 [...] Signed By: 03/25/24 1313 DD/ 1310 TD/TT: Media Theorist And Author Of: ANKIT Pace Reviewed date:05/09/2024 12:13:11 PM Interpretation: Performing Lab: Notes/Report: PERFORMED AT [address] [place] [address] not use a race coefficient. CKD-EPI 2020 [...] High Risk CHOLESTEROL:HDL 4.3 1.0-5.0 PERFORMED AT [facility] [address],[place] [address] TSH WITH REFLEX FT4 Reviewed date:05/09/2024 12:13:05 PM Interpretation: Performing Lab: Notes/Report: TSH 4.67 0.49-4.67 uIU/mL PERFORMED A [address] [place] [address] Comprehensive Metabolic Pane l Reviewed date:07/31/2024 04:38:57 PM Interpretation: Performing Lab: Notes/Report: , [facility] Sodium 139 136-145 mmol/L Potassium 3.9 3.5-5.1 [...] Performing Lab: see note ML - [facility] LB Lipid Panel Reviewed date:07/31/2024 04:38:45 PM Interpretation: Performing Lab: Notes/Report: [facility] , Triglycerides 276 <=150 mg/dL Cholesterol [...] RISK Performing Lab: see note ML - [facility] LB Magnesium Reviewed date:07/31/2024 04:38:50 PM Interpretation: Performing Lab: Notes/Report: [facility] , Magnesium 1.9 1.8-2.4 mg/dL Performing Lab: see note ML - [facility] LB Reason For Referral Reason Worsening GFR Diagnosis 1 Chronic kidney disea se, stage 3 (N18.30) Referral Organization Main Referring Provider First Name Bradley Referring Provider Last Name Carlee Referring Provider Speciality Physician Braid Maker Referred Provider [facility] Referred Provider Specialty Nephrology General Notes Marisela Beard 08/03 11:28:13 AM >called patient and his authorized contact and gave the phone number and address for tristin maloney. patient authorized contact states he will get patient scheduled for appt .Ez Aurora 08/20/2024 11:32:40 AM >Nilsa is scheduled for 12/23/2024 @ 1 Pm. If provider feels that he needs to be seen sooner please call and Stevenson will see what he can do., Jay Irene 12/23/2024 06:30:23 PM >Note in chart. ceb Referral Priority Routine Referral Appointment Date 12/23/2024 Reason osteoarthritis of kn ees Diagnosis 1 Primary osteoarthrit is of both knees (M17.0) Referral Organization Main Referring Provider First Name Bradley Referring Provider Last Name Carlee Referring Provider Speciality Physician Braid Maker Referred Provider [facility] Referred Provider Specialty Orthopedics General Notes Marisela Beard 08/2024 01:27:46 PM >{ {TOFIRSTNAME}} This is [facility] following up on an outstanding [...] 50 MG TAKE 1 TABLET BY MO ORH EVERY DAY for 90 Active Lac-Hydrin 12 % 1 application Stripe Marker ally Twice a day 11/02/2022 Active Pantoprazole [...] needed Orally every 8 hrs 05/24/2023 Active Acidophilus Probiotic 100 MG TAKE 1 CAPSULE BY MOUTH EVERY DAY for 30 Active metFORMIN HCl ER 500 MG TAKE 2 TABLETS B Y MOUTH TWICE A DAY Orally twice a day for 90 days Active Vitamin D3 125 MCG (5000 UT) TAKE 1 CAPSULE BY MOUTH EVERY DAY FOR 90 DAYS for 90 Active Aspirin Low Dose 81 MG TAKE 1 TABLET BY MOUTH EVERY DAY for 90 Active D3-1000 25 MCG (1000 UT) TAKE 1 CAPSULE BY MOUTH EVERY DAY FOR 90 DAYS for 90 Active Jardiance 25 MG 1 [...] work (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 No patient entered lisa a How often do you see or talk to people that you care about and feel close to? (For example: talking to friends on the phone, visiting friends or family, going to taoist or club meetings) More than 5 times a week patient entered data How stressed are you? Stress is when someone feels tense, nervous, anxious, or can't sleep at night because their mind is troubled Not at all patient entered data In the past year have you sp ent more than 2 nights in a row in a care home, retirement, penitentiary center, or juvenile correctional facility? No patient entered data Are you a refugee? No patient en tered data What country are you from? [place] leanne rivasnt entered data Do you feel physically and emotionally safe where you currently live? Yes patient entered data In the past year, have you b een afraid of your partner or ex-partner? No patient entered data PRAPARE Score: 3 Problems Problem Type SNOMED Code ICD Code Onset Dates Problem Status W/U Status Risk Notes Problem 54548360 Type 2 diabetes mellitus with diabetic chronic kidney disease (E11.22) Active confirmed Problem Hypomagnesemia (015933800) Hypomagnesemia (E83.42) Active confirmed Problem 02595161 Other chronic pain (G89.29) Active confirmed Problem 042728799 Lumbago with sciatica, right side (M54.41) Active confirmed Problem 413764027 Chronic kidney disease, stage 2 (mild) (N18.2) Active confirmed Problem 10389003 Urge incontinence (N39.41) Active confirmed Problem 603623081 Incontinence without sensory awareness (N39.42) Active confirmed Problem 551701160 terminal supervisor (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) use of insulin (Z79.4) Active confirmed Problem 324635662393298 Benign prostatic hyperplasia with lower urinary tract symptoms (N40.1) Active confirmed Problem 115875569 Primary osteoarthritis of both knees (M17.0) Active confirmed Problem Gastroesophageal reflux disease (991750519) GERD (gastroesophagea l reflux disease) (K21.9) Active confirmed Problem Overweight (506444237) Overweight (BMI 25.0-29.9) (E66.3) Active confirmed Problem Blood chemistry abnormal (920864707) Elevated TSH (R79.89) Active confirmed Problem Neck pain (55226840) Neck pain (M54.2) Active confirmed Problem 727496120 Lumbar spondylosis (M47.816) Active confirmed Problem 816045511 Ulcer of left foot, unspecified ulcer stage (L97.529) Active confirmed Problem 353548659 Amputation of toe of left foot (S98.132A) Active confirmed Problem Essential hypertension (48505263) Essential hypertension (I10) 2005 Active confirmed Comment:BP improved but still above goal range. asymptomatic . increase dose of lisinopril., Problem Atrial fibrillation (26197708) Paroxysmal atrial fibrillation with RVR (I48.0) Active confirmed Comment:keep follow-up as planned with cardiology heart rate/rhythm normal on exam today, patient asymptomatic take medications as prescribed (metoprolol) any concern with dizziness, fatigue, shortness of breath please seek immediate medical evaluation, Problem Hyperlipidemia (13206395) Hyperlipidemia (E78.5) 2005 Active confirmed Problem Dry skin (84763816) Dry skin (L85.3) Active confirmed Comment:-exc essively dry skin over feet & lower legs -is seeing emergency medicine physician assistant who prescribed salves -will check TSH as well to r/o any underlying issue, Problem Vitamin D deficiency (64230413) Vitamin D deficiency (E55.9) Active confirmed Comment:per recent labwork - mild deficiency. will start daily supplement, recheck prior to follow-up., Problem 36767042 Type 2 diabetes mellitus with other circulatory complications (E11.59) Inactive confirmed Problem 601096578 Type 2 diabetes mellitus with foot ulcer (E11.621) Inactive confirmed Problem Chronic renal disease, stage III (N18.30) Inactive confirmed Problem 989796162 Other sprain of unspecified shoulder joint, initial encounter (S43.499A) 2007 Problem resolved confirmed Problem 703620998 Anemia, unspecified type (D64.9) Problem resolved confirmed Problem Abrasion of scalp (069723923) Excoriation of scalp (S00.01XA) Problem resolved confirmed Comment:nonh ealing lesion on top of head since he hit it on his headboard of hie bed. derm referral please., Problem Orthostatic hypotension (10662742) Orthostatic syncope (I95.1) Problem resolved confirmed Comment:-pt has had 4 episodes so syncope in the last week -mostly in the morning right when he wakes up. thinking these are orthostatic sx -only medication that pt is on that could cause this is tamsulosin. has been on for a long time and pt needs it according to male facilities administrator who comes with pt -no specific findings on PE -will order Echo to rule out heart cause -f/u in 3 weeks, Problem Neck pain (30111851) Neck pain, acute (M54.2) Problem resolved confirmed Comment:Neck pain resolved since taking medication. Advised to complete medication remaining. Should notify office if any recurrence of pain - can do a refill for medication if needed., Problem Wound, open, head (S01.90XA) Problem resolved confirmed Comment:chrome tanning drum operator zach issue with recurring sores on scalp. [...] > Height-cm 171.45 cm 12/05/2024 denies pain. Me Marisela gudino 12/05/2024 01:44:53 PM EDT > Oximetry 99 % 12/05/2024 denies pain. Me gudinoMarisela 12/05/2024 01:44:53 PM EDT > Blood pressure diastolic 67 mm Hg 12/05/2024 den ies pain. Marisela Beard 12/05/2024 01:44:53 PM EDT > Weight-kg 83.46 kg 11/06/2024 Marivel Decker 11/06/2024 01:22:43 PM EDT > Marisela Beard 11/06/2024 01:46:56 PM EDT > Height 67.50 in 12/05/2024 denies pain. Il Marisela gudino 12/05/2024 01:44:53 PM EDT > [...] Location Date Provider Diagnosis Main [address] [id number] 04/23/2024 Rocio Hurst Type 2 diabetes me llitus with diabetic chronic kidney disease E11.22 ; Elevated TSH R79.89 ; Hyperlipidemia E78.5 ; Essential hypertension I10 ; Dietary counseling Z71.3 ; Exercise counseling Z71.82 and Overweight (BMI 25.0-29.9) E66.3 Main [address] [id number] 05/16/2024 Rocio Aris Hyperlipidemia E78 .5 ; Essential hypertension I10 ; Chronic kidney disease, stage 2 (mild) N18.2 ; GERD (gastroesophageal reflux disease) K21.9 and Hypomagnesemia E83.[address] [place], [place] [id number] 07/23/2024 Bradley Studd Type 2 diabetes me llitus with other circulatory complications E11.[address] [place], [place] [id number] 07/30/2024 Bradley Studd Essential hyperten esther I10 [address] [place], [place] [id number] 08/06/2024 Bradley Studd Chronic kidney dis ease, stage 3 N18.30 and Nausea R11.[address] [place], [place] [id number] 09/18/2024 Bradley Studd Primary osteoarthr itis of both knees M17.[address] [place], [place] [id number] 11/06/2024 Bradley Studd Type 2 diabetes me llitus with diabetic chronic kidney disease E11.22 and Essential hypertension I10 [address] [place], [place] [id number] 12/05/2024 Bradley Studd Type 2 diabetes me llitus with diabetic chronic kidney disease E11.22 and Weakness R53.[address] [place] [address] 02/01/2024 [facility] Main [address] [facility] [place] [id number] [facility] Type 2 diabetes me llitus with diabetic chronic kidney disease E11.[address] [place], [place] [id number] 03/06/2024 Alison Alvarez Type 2 diabetes me llitus with diabetic chronic kidney disease E11.[address] [place] [address] 03/14/2024 [facility] Main [address] [facility] [id number] 03/21/2024 Alison Alvarez Type 2 diabetes me llitus with diabetic chronic kidney disease E11.[address] [place], [place] [id number] 03/21/[facility] [address] [place] [id number] 03/22/2024 Annmarie Clarence Vitamin D deficien cy E55.[address] [place], [place] [id number] 03/28/2024 Alison Alvarez [place] [address] [place] [address] 04/25/2024 Rocio Aris Main [address] [place], [place] [id number] 04/25/2024 Rocio Aris Main [address] [place], [place] [id number] 04/25/2024 Rocio Aris Main [address] [place], [place] [id number] 04/25/2024 Rocio Aris Main [address] [place], [place] [id number] 05/02/2024 Rocio Aris Main [address] [place], [place] [id number] 05/16/2024 Rocio Aris Main [address] [place] [id number] 05/16/2024 Rocio Aris Hypomagnesemia E83 .[address] [place], [place] [id number] 05/22/2024 Rocio Aris Main [address] [place], [place] [id number] 06/05/2024 Rocio Aris Medication refill Z76.[address] [place], [place] [id number] 06/19/2024 Rocio Aris Type 2 diabetes me llitus with diabetic chronic kidney disease E11.[address] [place], [place] [id number] 07/12/2024 Rocio Aris Main [address] [place], [place] [id number] 07/15/2024 Rocio Aris Main [address] [place] [id number] 07/15/2024 Rocio Aris Main [address] [place], [place] [id number] 07/30/2024 Bradley Studd Main [address] [place] [id number] 08/05/2024 Bradley Studd Type 2 diabetes me llitus with other circulatory complications E11.[address] [place], [place] [id number] 08/07/2024 Bradley Studd Main [address] [place], [place] [id number] 08/07/2024 Bradley Studd Main [address] [place], [place] [id number] 09/02/2024 Bradley Studd Hyperlipidemia E78 .[address] [place], [place] [id number] 09/09/2024 Bradley Studd Main [address] [place] [id number] 09/23/2024 Bradley Studd Main [address] [place], [place] [id number] 09/30/2024 Bradley Studd Hypomagnesemia E83 .42 and Type 2 diabetes mellitus with diabetic chronic kidney disease E11.[address] [place], [place] [id number] 10/14/2024 Bradley Studd Main [address] [place], [place] [id number] 10/21/2024 Bradley Studd Main [address] [place] [id number] 10/31/2024 Bradley Studd Type 2 diabetes me llitus with other circulatory complications E11.[address] [place], [place] [id number] 11/04/2024 Bradley Studd Main [address] [place], [place] [id number] 11/20/2024 Bradley Studd Medication refill Z76.0 and GERD (gastroesophageal reflux disease) K21.[address] [place], [place] [id number] 11/22/2024 Bradley Studd Main [address] [place] [id number] 12/04/2024 Bradley Studd Main [address] [place], [place] [id number] 12/05/2024 Bradley Studd Main [address] [place], [place] [id number] 12/18/2024 Bradley Studd Type 2 diabetes me llitus with diabetic chronic kidney disease E11.22 and Hypomagnesemia E83.[address] [place], [place] [id number] 01/13/2025 Bradley Studd Vitamin D deficien cy E55.[address] [place], [place] [id number] 01/20/2025 Bradley Studd Assessments Encounter Date Diagnosis (ICD Code) Assessment [...] referral for home OT or PT to ep with his strength 12/18/2024 Type 2 diabetes [...] symtpoms 11/20/2024 Medication refill (ICD-10 - Z76.0) 01/13/2025 Vitamin D deficiency (ICD-10 - E55.9) 05/16/2024 Essential hypertension (ICD-10 - I10) BP [...] on jardiance 09/02/2024 Hyperlipidemia (ICD-10 - E78.5) 02/05/2024 Type 2 diabetes mellitus with diabetic [...] exercise as much as he can. PVU 04/23/2024 Hyperlipidemia (ICD-10 - E78.5) due for labs 05/16/2024 Chronic kidney disease, stage 2 (mild) (ICD-10 - N18.2) Will check albumin/Cr ratio. [facility] to [facility] if worsneing then will refer to [facility] 09/30/2024 Type 2 diabetes mellitus with diabetic [...] advised to schedule an appt with his relay operator. Discussed having diet low in salt and exercise. 04/23/2024 Dietary counseling (ICD-10 - Z71.3) 05/16/2024 Hypomagnesemia (ICD-10 - E83.42) Needs refill. Will check labs 04/23/2024 Exercise counseling (ICD-10 - Z71.82) 04/23/2024 Overweight (BMI 25.0-29.9) (ICD-10 - E66.3) Plan Of Treatment Next Appt Details Provider Name:Bradley Bejarano, 01/29/2025 04:15:00 PM, [address], [place], [id number], Provider Name:Bradley Bejarano, 02/04/2025 01:45:00 PM, [address], [place], [id number], Insurance Providers Payer Name Payer Address Payer Phone Subscriber Number Group Number Insured Name Patient Relationship to Insured Coverage Start Date Coverage End Date Medicare NGS PPS [address] [place], [place] [id number] Radha Quiñones Self - patient is the insured 9 [employer] [address] [place], [place] [id number] Radha Quiñones Self - patient is the [...]
--- OUTSIDE RECORDS SUMMARY | 2025-01-29 15:19 | XMS_ITS | Encounter Summary ---
Author Organization [employer] [facility] tem Address [id number] [address] [place] [address] Care Team Providers Care Manager Nursing Home Name Role Phone Services, [facility] Primary Care Provider Reason for Visit * Reason Onset Date Comments Appointment 08/26/2024 Encounter Details Date Type Department Care Team (Late st Contact Info) Description 08/26/2024 [facility] [address] [place] [phone] Marisela Yi [facility] Appointment Social History Tobacco Use [...] hospital to home General Yes Laurie Villar, HAND I CUTTER-PRINCIPAL CYBER ENGINEER Note: Evaluation of progress towards goal: discharge home with protestant/friends support. <enter goal here> General Yes Sunita Tomlinson, ALANIS Note: Evaluation of progress towards goal: plan home self care SNF General Yes Cathryn Kapadia, CLEAT BLANKER Note: Evaluation of progress towards goal: Patient likely will discharge to a SNF documented as of this encounter Visit Diagnoses Not on filedocumented in this encounter Care Teams Manager Nursing Home Relationship Specialty Start Date End Date [facility], [facility] [address] [place], [place] PCP - General Family Medicine 04/16/24 documented as of this encounter
--- OUTSIDE RECORDS SUMMARY | 2025-01-29 15:19 | XMS_ITS | Encounter Summary ---
Author Organization [facility] Address [facility]-[id number] [address] [place] [address] Care Team Providers Care Foundry Technician Name Role Phone Services, [facility] Primary Care Provider Reason for Visit * Reason Onset Date Comments Med Refill 11/25/2022 Encounter Details Date Type Department Care Team (Late st Contact Info) Description 11/25/2022 Refill [facility] [address] [place] [phone] Zac Sherman, RN Med Refill Social History [...] hospital to home General Yes Laurie Villar, ABRASIVE WHEEL MOLDER-CAN SOLDERER Note: Evaluation of progress towards goal: discharge home with congregational/friends support. <enter goal here> General Yes Sunita Tomlinson, POT WASHER Note: Evaluation of progress towards goal: plan home self care SNF General Yes Cathryn Kapadia, POT WASHER Note: Evaluation of progress towards goal: Patient likely will discharge to a SNF documented as of this encounter Results * (ABNORMAL) CBC without diff (04/06/2023 12:40 PM EDT) White Blood Cells 8.1 4.0 - 11.0 X10E9/L 04/06/2023 8:17 PM EDT [facility] RBC count 4.49 4.10 - 5.70 X10E12/L 04/06/2023 8:17 PM EDT [facility] Hemoglobin 13.3 13.0 - 17.0 g/dL 04/06/2023 8:17 PM EDT [facility] Hematocrit 41.1 39 - 49 % 04/06/2023 8:17 PM EDT [facility] MCV 92 80 - 100 fL 04/06/2023 8:17 PM EDT [facility] MCH 29.5 27 - 34 pg 04/06/2023 8:17 PM EDT [facility] MCHC 32.3 32 - 36 g/dL 04/06/2023 8:17 PM EDT [facility] RDW 15.6(H) 11.5 - 15.0 % 04/06/2023 8:17 PM EDT [facility] Platelets 375 150 - 450 X10E9/L 04/06/2023 8:17 PM EDT [facility] MPV 7.9 7 - 12 fL 04/06/2023 8:17 PM EDT [facility] Blood / Unknown 04/06/2023 1 2:40 PM EDT 04/06/2023 12:41 PM EDT us Wilmer Conti ABRASIVE WHEEL MOLDER-CAN SOLDERER LAB BLOOD ORDERABLES Final Result [facility] [address], [address] [place] [address] documented in this encounter Visit Diagnoses Diagnosis Atrial fibrillation with RVR (CMS-HCC)- Primary documented in this encounter Care Teams Foundry Technician Relationship Specialty Start Date End Date [facility], [facility] [address] [place], [place] PCP - General Family Medicine 04/16/24 documented as of this encounter
--- OUTSIDE RECORDS SUMMARY | 2025-01-29 15:19 | XMS_ITS | Encounter Summary ---
Author Organization [employer] [facility] tem Address [id number] [address] [place] [address] Care Team Providers Care Wrapper Hand Name Role Phone Services, [facility] Primary Care Provider Encounter Details Date Type Department Care Team (Late st Contact Info) Description 12/16/2021 Telephone [facility] [address] [place] [phone] Stacy Saldana, SANTY Social History Tobacco Use [...] to home General Yes Laurie Villar, ENGINEERING TEST MECHANIC-BEEF TAGGER Note: Evaluation of progress towards goal: discharge home with buddhism/friends support. <enter goal here> General Yes Sunita Tomlinson, ALANIS Note: Evaluation of progress towards goal: plan home self care SNF General Yes Cathryn Kapadia, SCIENTIFIC LINGUIST Note: Evaluation of progress towards goal: Patient likely will discharge to a SNF documented as of this encounter Visit Diagnoses Not on filedocumented in this encounter Care Teams Wrapper Hand Relationship Specialty Start Date End Date [facility] [address] [place], [place] PCP - General Family Medicine 04/16/24 documented as of this encounter
--- OUTSIDE RECORDS SUMMARY | 2025-01-29 15:20 | XMS_ITS | Encounter Summary ---
Author Organization [facility] tem Address [id number] [address] [place] [address] Care Team Providers Care Computer Repairer Name Role [facility] Primary Care Provider Encounter Details Date Type Department Care Team (Late st Contact Info) Description 09/07/2016 Documentation [facility] [address] [place] [address] [address] [place] [phone] Frederic Thorne MD [address] [place] [id number] Social History Tobacco Use Types Packs/Day Years [...] documented as of this encounter Care Teams Computer Repairer Relationship Specialty Start Date End Date Services, [facility] [address] [place], [place] PCP - General Family Medicine 04/16/24 documented as of this encounter
--- OUTSIDE RECORDS SUMMARY | 2025-01-29 15:20 | XMS_ITS | Encounter Summary ---
Author Organization [facility] Address [id number] [address] [place] [address] Care Team Providers Care Surveillance Investigator Name Role Phone Services, [facility] Primary Care Provider Encounter Details Date Type Department Care Team (Late st Contact Info) Description 03/09/2023 Orders Only [facility] [address] [place] [phone] Yoni Espinoza MD [address] [place] [address] Ventricular tachycardia ([facility]) Social History Tobacco Use Types Packs/Day [...] hospital to home General Yes Laurie Villar, 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 ENGINEERING TECHNICIAN-INVOICE CHECKER Note: Evaluation of progress towards goal: discharge home with oriental orthodox/friends support. <enter goal here> General Yes Sunita Tomlinson, ALANIS Note: Evaluation of progress towards goal: plan home self care SNF General Yes Cathryn Kapadia, ULTRASONIC SOLDERER Note: Evaluation of progress towards goal: Patient likely will discharge to a SNF documented as of this encounter Procedures Procedure Name Priority Date/Time Associated Diagnosis Comments DEVICE INTERROGATION Routine 03/08/2023 Ventricular tachycardia ([facility]) documented in this encounter Results * Device Interrogation (03/08/2023) Anatomical Region Laterality Modality Other us Yoni Espinoza MD [facility] ORDERABLES Final Result documented in this encounter Visit Diagnoses Diagnosis Ventricular tachycardia ([facility]) Paroxysmal ventricular tachycardia documented in this encounter Care Teams Surveillance Investigator Relationship Specialty Start Date End Date Services, [facility] [address] [place], [place] PCP - General Family Medicine 04/16/24 documented as of this encounter
--- OUTSIDE RECORDS SUMMARY | 2025-01-29 15:20 | XMS_ITS | Patient Health Record ---
Author Organization [facility] [place] Address [address] [place] [address] Care Team Providers Care Jamb Cutter Name Role Phone Radha Thapa Primary Care Provider UnavailJuan Lin Unavailable [phone] Allergies No Known Allergies Results Component Value Reference Range Notes CRP (Not yet reviewed by pro vider) Interpretation: Performing Lab:[facility], [address] [place] [address] [place]. [address] PH:[phone] Notes/Report: C REACTIVE PROTEIN 1.9 0.000-0.744 mg/dL PERF ORMED AT [address] [place] [address] ESR (Not yet reviewed by pro vider) Interpretation: Performing Lab:[facility]), [address] [place] [address]. [address] PH:[phone] Notes/Report: ESR, ERYTHROCYTE SEDIMENTATION RATE 47 0-20 mm/h PERFORMED AT [place] [address], [place] [address] CBC AND AUTO DIFF * (Not yet reviewed by provider) Interpretation: Performing Lab:[facility], [address] [place] [address] [place]. [address] PH:[phone] Notes/Report: WBC COUNT 5.9 4.0-11.0 X10E9/L RBC [...] BASOPHIL 0.0 0.0-0.2 X10E9/L PERFORM ED AT [address] [place] [address] HGB A1C (GLYCO-HGB) (Not yet reviewed by provider) Interpretation: Performing Lab:[facility] ([facility]), [facility], [place]. [address] PH:[phone] Notes/Report: HEMOGLOBIN A1C 8.7 4.4-5.6 % Result HgbA1c the half-life of red blood cells and in vivo glycation rates are Diabetes : > 6.4 % affected. Normal : less than 5.7 % Prediabetes : 5.7 % to 6.4 % Use with caution in patients with abnormal hemoglobin variants as NOTE ADA Guidelines AVERAGE GLUCOSE 203 PERFORMED AT [place] [address],[place] [address] VC SEGMENTAL PRESSURES (Not yet reviewed by provider) Interpretation: Performing Lab: Notes/Report: Source Facility: [facility]-[address] [place] [address] [place] [address] Vein Report Signed Patient: RADHA QUIÑONES MR#: [id number] : 1955 Acct:[id number] Age/Sex: 69 / M ADM Date: 08/01/24 Loc: VC Attending Dr: Mariana Solomon D.P.M. Ordering Physician: Mariana Solomon D.P.M. Date of Service: 08/01/24 Procedure(s): VC SEGMENTAL PRESSURES Accession Number(s): [id number] cc: IZZY SAM ; Mariana Solomon D.P.M. [place] [id number] Patient Name: RADHA QUIÑONES MRN: [id number] date: 1955 Sex: M Assigned Patient Location: VC Current Patient Location: VC Accession/Order Number: [id number] Exam Date: 08/01/2024 13:16 Report Date: 08/01/2024 [...] M.D. Signed By: 08/01/241617 DD/ 14 TD/TT: Microelectronics Technician: [place] [address] Vein Report Signed Patient: RADHA QUIÑONES MR#: [id number] : 1955 Acct:[id number] Age/Sex: 69 / M ADM Date: 08/01/24 Loc: VC Attending Dr: Mariana Solomon D.P.M. Ordering Physician: Mariana Solomon D.P.M. Date of Service: 08/01/24 Procedure(s): VC SEGMENTAL PRESSURES Accession Number(s): [id number] cc: IZZY SAM ; Mariana Solomon D.P.M. [address] [address] Patient Name: RADHA QUIÑONES MRN: [facility]:[id number] date: 1955 Sex: M Assigned Patient Location: VC Current Patient Location: VC Accession/Order Numb er: [id number] Exam Date: 08/01/2024 13:16 Report Date: 08/01/2024 [...] M.D. Signed By: 08/01/241617 DD/ 14 TD/TT: Microelectronics Technician: CBC AUTO DIFF (Not yet revie wed by provider) Interpretation: Performing Lab: Notes/Report: [facility] , White Blood Count 5.3 4.0-11.0 10 [...] Performing Lab: see note ML - [facility] LB PROF CHEM 8 (BAS METB) (Not yet reviewed by provider) Interpretation: Performing Lab: Notes/Report: [facility] , Sodium 134 136-145 mmol/L Potassium 4.3 [...] Performing Lab: see note ML - [facility] LB XR foot LT min 3V (Not yet r eviewed by provider) Interpretation: Performing Lab: Notes/Report: Source Facility: [facility]-[address] [place] [address] [place] [address] XRay Report Signed Patient: RADHA QUIÑONES MR#: [id number] : 1955 Acct:[id number] Age/Sex: 69 / M ADM Date: 11/12/24 Loc: SURGOUT Attending Dr: Mariana Solomon D.P.M. Ordering Physician: Mariana Solomon D.P.M. Date of Service: 11/12/24 Procedure(s): XR foot LT min 3V Accession Number(s): [id number] cc: IZZY SAM ; Mariana Solomon D.P.M. [place] [address] Patient Name: RADHA QUIÑONES MRN: [id number] date: 1955 Sex: M [facility]igned [facility] Location: [facility] Accession/Order Number: [id number] Exam Date: 11/12/2024 14:31 Report Date: 11/12/2024 [...] Aranda M.D. 11/12/2024 2:33 PM Dictation Location: [place] [address] Electronically authenticated by: [id number] Y Date: 11/12/2024 14:33 Dictated By: Rafita Aranda M.D. Signed By: 11/12/245 DD/ 32 TD/TT: Microelectronics Technician: [place] [address] XRay Report Signed Patient: RADHA QUIÑONES MR#: [id number] : 1955 Acct:[id number] Age/Sex: 69 / M ADM Date: 11/12/24 Loc: SURGOUT Attending Dr: Mariana Solomon D.P.M. Ordering Physician: Mariana Solomon D.P.M. Date of Service: 11/12/24 Procedure(s): XR shahid t LT min 3V Accession Number(s): [id number] cc: IZZY SAM ; Mariana Solomon D.P.M. [place] [address] Patient Name: RADHA QUIÑONES MRN: [id number] date: 1955 Sex: M Assigned Patient Location: [facility] Current Patient Location: [facility] Accession/Order Numb er: [id number] Exam Date: 11/12/2024 14:31 Report Date: 11/12/2024 [...] Aranda M.D. 11/12/2024 2:33 PM Dictation Location: [place] [address] Electronically authenticated by: [id number] Y Date: 11/12/2024 14:33 Dictated By: Rafita Aranda M.D. Signed By: 11/12/241434 DD/ 32 TD/TT: Microelectronics Technician: CT FOOT LT WO CON (Not yet r eviewed by provider) Interpretation: Performing Lab: Notes/Report: Source Facility: [place] [address] [place] [address] CT Scan Report Signed Patient: ARDHA QUIÑONES MR#: [id number] : 1955 Acct:[id number] Age/Sex: 69 / M ADM Date: 07/31/24 Loc: CT Attending Dr: Mariana Solomon D.P.M. Ordering Physician: Mariana Solomon D.P.M. Date of Service: 01/29/25 Procedure(s): CT foot LT wo con Accession Number(s): [id number] cc: IZZY SAM [place] [id number] Patient Name: RADHA QUIÑONES MRN: [id number] date: 1955 Sex: M Assigned Patient Location: CT Current Patient Location: Accession/Order Number: [id number] Exam Date: 07/31/2024 13:15 Report Date: 08/02/2024 [...] Dictated By: Robert Moore M.D. Signed By: 08/02/2435 DD/ 2 TD/TT: Microelectronics Technician: [place] [address] CT Scan Report Signed Patient: RADHA QUIÑONES MR#: [id number] : 1955 Acct:[id number] Age/Sex: 69 / M ADM Date: 07/31/24 Loc: CT Attending Dr: Mariana Solomon D.P.M. Ordering Physician: Mariana Solomon D.P.M. Date of Service: 07/31/24 Procedure(s): CT shahid t LT wo con Accession Number(s): [id number] cc: IZZY SAM [address] [address] Patient Name: RADHA QUIÑONES MRN: [id number] date: 1955 Sex: M Assigned Patient Location: CT Current Patient Location: Accession/Order Numb er: [id number] Exam Date: 07/31/2024 13:15 Report Date: 08/02/2024 [...] M.D. Signed By: 08/02/24534 DD/ 2 TD/TT: Microelectronics Technician: XR foot LT min 3V (Not yet r eviewed by provider) Interpretation: Performing Lab: Notes/Report: Source Facility: [place] [address] [place] [address] XRay Report Signed Patient: RADHA QUIÑONES MR#: [id number] : 1955 Acct:[id number] Age/Sex: 68 / M ADM Date: 03/22/24 Loc: Attending Dr: Mariana Solomon D.P.M. Ordering Physician: Mariana Solomon D.P.M. Date of Service: 03/22/24 Procedure(s): XR foot LT min 3V Accession Number(s): [id number] cc: IZZY SAM ; Mariana Solomon D.P.M. [place] [address] Patient Name: RADHA QUIÑONES MRN: [id number] date: 1955 Sex: M Assigned Patient Location: Current Patient Location: Accession/Order Number: [id number] Exam Date: 03/22/2024 10:16 Report Date: 03/25/2024 [...] M.D. Signed By: 03/25/241312 DD/ 09 TD/TT: Microelectronics Technician: [place] [address] XRay Report Signed Patient: RADHA QUIÑONES MR#: [id number] : 1955 Acct:[id number] Age/Sex: 68 / M ADM Date: 03/22/24 Loc: Attending Dr: Mariana Solomon D.P.M. Ordering Physician: Mariana Solomon D.P.M. Date of Service: 03/22/24 Procedure(s): XR shahid t LT min 3V Accession Number(s): [id number] cc: IZZY SAM ; Mariana Solomon D.P.M. [place] [address] Patient Name: RADHA QUIÑONES MRN: [id number] date: 1955 Sex: M Assigned Patient Location: Current Patient Location: Accession/Order Numb er: [id number] Exam Date: 03/22/2024 10:16 Report Date: 03/25/2024 [...] Dictated By: Jaylen Varner M.D. Signed By: 03/25/241312 DD/ 09 TD/TT: Microelectronics Technician: Prothrombin Time INR (Not ye t reviewed by provider) Interpretation: Performing Lab: Notes/Report: [facility] , Prothrombin Time 12.8 9.0-11.6 sec INR 1.23 2.5-3.5 FOR PROSTHETIC HEART VALVE REPLACEMENT DESIRED INR: 2.5-3.5 RECURRENT THROMBOSIS 2.0-3.0 CONDITIONS NOT LISTED BELOW Performing Lab: see note ML - [facility] LB PTT (Not yet reviewed by pro vider) Interpretation: Performing Lab: Notes/Report: [facility] , Partial Thromboplastin Time 35.8 22.3-36.2 sec Performing Lab: see note ML - [facility] LB XR chest 2V (Not yet reviewe d by provider) Interpretation: Performing Lab: Notes/Report: Source Facility: [facility]-[address] [place] [address] [place] [address] XRay Report Signed Patient: RADHA QUIÑONES MR#: [id number] : 1955 Acct:[id number] Age/Sex: 69 / M ADM Date: 10/23/24 Loc: [facility] Attending Dr: Mariana Solomon D.P.M. Ordering Physician: Mariana Solomon D.P.M. Date of Service: 10/23/24 Procedure(s): XR chest 2V Accession Number(s): [id number] cc: IZZY SAM ; Mariana Solomon D.P.M. [place] [address] Patient Name: RADHA QUIÑONES MRN: [id number] date: 1955 Sex: M Assigned Patient Location: [facility] Current Patient Location: [facility] Accession/Order Number: [id number] Exam Date: 10/23/2024 15:07 Report Date: 10/23/2024 [...] Rodri Shrestha M.D.10/23/2024 3:08 PM Dictation Location: [place] [address] Electronically authenticated by: [id number] Y Date: 10/23/2024 15:08 Dictated By: Rodri Shrestha D.O. Signed By: 10/23/24 1510 DD/ 1508 TD/TT: Microelectronics Technician: [place] [address] XRay Report Signed Patient: RADHA QUIÑONES MR#: [id number] : 1955 Acct:[id number] Age/Sex: 69 / M ADM Date: 10/23/24 Loc: [facility] Attending Dr: Mariana Solomon D.P.M. Ordering Physician: Mariana Solomon D.P.M. Date of Service: 10/23/24 Procedure(s): XR alex st 2V Accession Number(s): [id number] cc: IZZY SAM ; Mariana Solomon D.P.M. [place] [id number] Patient Name: RADHA QUIÑONES MRN: [id number] date: 1955 Sex: M Assigned Patient Location: [facility] Current Patient Location: [facility] Accession/Order Numb er: [id number] Exam Date: 10/23/2024 15:07 Report Date: 10/23/2024 [...] Rodri Shrestha M.D.10/23/2024 3:08 PM Dictation Location: [place] [address] Electronically authenticated by: [id number] Y Date: 10/23/2024 15:08 Dictated By: Rodri Shrestha D.O. Signed By: 10/23/24 1510 DD/ 1508 TD/TT: Microelectronics Technician: Reason For Referral No Information Medications Medication SIG (Take, Route, Frequency, Duration) Notes Start Date End Date Status Atorvastatin Calcium 20 MG 1 tablet Orally Once a day Active traMADol HCl 50 MG 1 tablet as needed Orally every 8 hours Active Cephalexin 500 MG 1 capsule Orally BID Active Acetaminophen Active Metoprolol Succinate ER 100 MG 1 tablet Orally Once a day Active Amiodarone HCl 200 MG 1 tablet Orally Once a day Active Ozempic (0.25 or 0.5 MG/DOSE) Active Ammonium Lactate 12 % 1 application Externally Twice a day Active Sertraline HCl 50 MG 1 tablet Orally Once a day Active Aspirin 81 81 MG 1 tablet Orally Once a day Active Tamsulosin HCl 0.4 MG 2 capsule Orally Once a day Active Jardiance 25 MG 1 tablet Orally Once a day Active Acidophilus Probiotic 100 MG as directed Orally Not-T aking Lactobacillus Active Basaglar KwikPen 100 UNIT/ML as directed Subcutaneous Not-Taking Magnesium Oxide 400 MG 1 tablet with food Orally Once a day Active Lac-Hydrin 12% lotion 1 application externally twice a day Not-Taking metFORMIN HCl ER 500 MG 2 tablets orally BID Active Pantoprazole Sodium 40 MG 1 tablet 1/2 to 1 hour before morning meal Orally Once a day Not-Taking Vitamin D3 25 MCG (1000 UT) 1 capsule Orally Once a day Active Insulin Glargine 100 UNIT/ML as directed Subcutaneous Active Xarelto 20 MG 1 tablet with food Orally Once a day Active Problems Problem Type SNOMED Code ICD Code Onset Dates Problem Status W/U Status Risk Notes Problem Foot ulcer due to type 2 diabetes mellitus (2828707933943) Type 2 diabetes mellitus with foot ulcer (E11.621) Active confirmed Problem Diabetes mellitus type 2 (disorder) (36361447) DM2 (diabetes mellitus, type 2) (E11.9) Active confirmed Problem Non-pressure chronic ulcer of left heel and midfoot limited to breakdown of skin (L97.421) Active confirmed Problem Chronic ulcer of foot (550002652) Non-pressure chronic ulcer of left heel and midfoot with fat layer exposed (L97.422) Active confirmed Problem Infected skin ulcer limited to breakdown of skin (L98.491) Active confirmed Problem Foot ulcer due to type 2 diabetes mellitus (4242986829936) Diabetes mellitus with foot ulcer due to multiple causes (E11.621) Active confirmed Problem Hyperglycemia due to type 2 diabetes mellitus (847364011384450) Controlled type 2 diabetes mellitus with hyperglycemia (E11.65) Active confirmed Problem Chronic foot ulcer, limited to breakdown of skin, left (L97.521) Active confirmed Problem Diabetic peripheral neuropathy associated with type 2 diabetes mellitus (2862160646238) Controlled type 2 diabetes mellitus with neuropathy (E11.40) Active confirmed Problem Essential hypertension (11830048) Asymptomatic hypertension (I10) Active confirmed Problem Peripheral vascular disease (880293405) Angiopathy, peripheral (I73.9) Active confirmed Problem 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) Active confirmed Problem Non-pressure chronic ulcer of left heel and midfoot with other specified severity (L97.428) Active confirmed Problem 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) Active confirmed Problem Chronic kidney disease stage 3B (disorder) (574615189) Chronic kidney disease, stage 3b (N18.32) Active confirmed Problem Chronic ulcer of left heel (disorder) (1227586432245576 5) Chronic ulcer of left heel limited to breakdown of skin (L97.421) Active confirmed Vital Signs Blood pressure diastolic 62 mm Hg 01/27/2025 Height 5 ft 9 in in 01/27/2025 Blood pressure systolic 102 mm Hg 01/27/2025 Encounters Encounter Location Date Provider Diagnosis [facility] [address] [place] [phone] 12/23/2024 Juan Swain Chronic kidney disease, stage 3b N18.32 ; DM2 (diabetes mellitus, type 2) E11.9 and Asymptomatic hypertension I10 [place] [address] [place] [phone] 01/27/2025 Juan Swain Type 2 diabetes mellitus with foot ulcer E11.621 ; Chronic kidney disease, stage 3b N18.32 and Asymptomatic hypertension I10 [facility] [address] [place] [address] 12/11/2024 Juan Swain Assessments Encounter Date Diagnosis [...] metformin if his GFR declines further Continue Ozempic and Jardiance for management of CKD and DM Avoid NSAIDs and IV contrast Encourage good daily oral hydration Return in a few weeks to review his results 12/23/2024 DM2 (diabetes mellitus, type 2) (ICD-10 - E11.9) 01/27/2025 Type 2 diabetes mellitus with foot ulcer (ICD-10 - E11.621) 01/27/2025 Chronic kidney disease, stage 3b (ICD-10 - N18.32) No labs available for review today Renal US was unremarkable BP is well controlled Euvolemic on exam today He is encourageed to hold metformin if he is concerned about dehydration Avoid all NSAID and iodinated contrast use Order labs again to be done before next visit May need to stop metformin if GFR declines further 01/27/2025 Asymptomatic hypertension (ICD-10 - I10) 12/23/2024 Asymptomatic hypertension (ICD-10 - I10) Plan Of Treatment Pending Test Test Name Order Date UA (URINALYSIS, COMPLETE) 12/23/2024 UA (URINALYSIS, COMPLETE) 01/27/2025 ALBUMIN, BLOOD 01/27/2025 ALBUMIN, BLOOD 12/23/2024 MAGNESIUM 12/23/2024 MAGNESIUM 01/27/2025 CBC NO DIFF 01/27/2025 CBC NO DIFF 12/23/2024 PHOSPHORUS 12/23/2024 PHOSPHORUS 01/27/2025 PTH INTACT (PARATHYROID HORMONE) 025 PTH INTACT (PARATHYROID HORMONE) 025 URIC ACID 12/23/2024 URIC ACID 01/27/2025 VITAMIN D, 25 LEVEL (TOTAL) 01/27/2025 VITAMIN D, 25 LEVEL (TOTAL) 12/23/2024 US [...] 10/23/2024 VC SEGMENTAL PRESSURES 08/01/2024 MICROALBUMIN w TUNNEL KILN FIRER RATIO 12/23/2024 BMP (BASIC MET PANEL) w/eGFR CKD-EPI BMP (BASIC MET PANEL) w/eGFR CKD-EPI MICROALBUMIN w CREAT RATIO 01/27/2025 Next Appt Details Provider Name:Juan Swain, 04/14/2025 12:20:00 PM, [address] [facility], [place], [address], Insurance Providers Payer Name Payer Address Payer Phone Subscriber Number Group Number Insured Name Patient Relationship to Insured Coverage Start Date Coverage End Date [place] [address] [place] [address] [id number] Radha Quiñones Self - patient is the insured 3 [place] 2ND INS [address] OFFICE OF [place], [place] [id number] Radha Quiñones Self - patient is the insured Medical (General) History Medical History History ICD Code cardiac pacemaker with defibrillator typre 2 DM urinary incontinence without sensory sameera reness excoriation of scalp HTN a fib anemia Surgical History Surgery Date(Month/Year) cardiac pacemaker/ defibrillation skin cancer removal on right hand cataract extraction- bilateral three toes removed from left foot 2022 Hospitalization History Reason Date(Month/Year) back and foot pain
--- OUTSIDE RECORDS SUMMARY | 2025-01-29 15:20 | XMS_ITS | Clinical Summary ---
Author Organization [facility] Address [address] [place] [address] Care Team Providers Care Independent Driver Name Role Phone Unavailable Primary Care Provider [...]
--- OUTSIDE RECORDS SUMMARY | 2025-01-29 15:20 | XMS_ITS | Encounter Summary ---
Author Organization [facility] Address [id number] [address] [place] [address] Care Team Providers Care Material Control Clerk Name Role Phone Services, [facility] Primary Care Provider Encounter Details Date Type Department Care Team (Late st Contact Info) Description 09/07/2016 Documentation [facility] [address] [place] [phone] Frederic Thorne MD [address] [place] [phone] Social History Tobacco Use Types Packs/Day Years [...] documented as of this encounter Care Teams Material Control Clerk Relationship Specialty Start Date End Date Services, [facility] [address] [place], [place] PCP - General Family Medicine 04/16/24 documented as of this encounter
--- OUTSIDE RECORDS SUMMARY | 2025-01-29 15:20 | XMS_ITS | Encounter Summary ---
Author Organization [facility] Address [id number] [address] [place] [address] Care Team Providers Care Grocery Packer Name Role Phone Services, Pending Sale To [facility] Primary Care Provider Encounter Details Date Type Department Care Team (Late st Contact Info) Description 09/04/2020 Orders Only [facility] [address] [place] [phone] External, Scanning Provider Social History Tobacco Use [...] hospital to home General Yes Laurie Villar, MID LEVEL CLINICIAN-BUSINESS INTELLIGENCE ETL DEVELOPER Note: Evaluation of progress towards goal: discharge [...] on filedocumented in this encounter Care Teams Grocery Packer Relationship Specialty Start Date End Date Services, Pending Sale To [facility] [address] [place], [place] PCP - General Family Medicine 04/16/24 documented as of this encounter
--- OUTSIDE RECORDS SUMMARY | 2025-01-29 15:20 | XMS_ITS | Encounter Summary ---
Author Organization [facility] tem Address [id number] [address] [place] [address] Care Team Providers Care Boxing Instructor Name Role Phone Services, [facility] Primary Care Provider Encounter Details Date Type Department Care Team (Late st Contact Info) Description 01/18/2024 Orders Only [facility] [address] [place] [phone] Emery Haq PA [address] [facility], [address] [place], [place] [phone] Social History Tobacco Use Types Packs/Day Years [...] hospital to home General Yes Laurie Villar, WIRE COATING OPERATOR METAL-RECORDS MANAGEMENT ENGINEER Note: Evaluation of progress towards goal: [...] on filedocumented in this encounter Care Teams Boxing Instructor Relationship Specialty Start Date End Date Services, [facility] [address] [place], [place] PCP - General Family Medicine 04/16/24 documented as of this encounter
--- OUTSIDE RECORDS SUMMARY | 2025-01-29 15:20 | XMS_ITS | Encounter Summary ---
Author Organization [employer] [facility] Address [id number] [address] [place] [address] Care Team Providers Care Casting And Locker Room Servicer Name Role Phone Services, [facility] Primary Care Provider Encounter Details Date Type Department Care Team (Late st Contact Info) Description 07/28/2020 [facility] [address] [place] [phone] Dwain Lynn MD [address] [place] [address] Social History Tobacco Use Types Packs/Day Years [...] hospital to home General Yes Laurie Villar, WEIGHT INSPECTOR-PROGRAM PROFESSIONAL Note: Evaluation of progress towards goal: discharge home with mormonism/friends support. <enter goal here> General Yes Sunita Tomlinson LSW Note: Evaluation of progress towards goal: plan home self care documented as of this encounter Visit Diagnoses Not on filedocumented in this encounter Care Teams Casting And Locker Room Servicer Relationship Specialty Start Date End Date Services, [facility] [address] [place], [place] PCP - General Family Medicine 04/16/24 documented as of this encounter
--- OUTSIDE RECORDS SUMMARY | 2025-01-29 15:20 | XMS_ITS | Encounter Summary ---
Author Organization [employer] [facility] Address [id number] [address] [place] [address] Care Team Providers Care Nozzle And Sleeve Worker Name Role Phone Services, [facility] Primary Care Provider Encounter Details Date Type Department Care Team (Late st Contact Info) Description 07/28/2020 Telephone [facility] Cardiology [address] [facility] [place] [phone] Dwain Lynn MD [address] [place] [address] Social History Tobacco Use Types Packs/Day Years [...] If that doesn't work, patient to call [facility] at . Marlene Nunez RN 07/28/20 1004 documented in this encounter Plan of Treatment Not on file documented as of this encounter Goals Goal Patient Goal Type Associated Problems Recent Progress Patient-Stated? Author safe transition from hospital to home General Yes Laurie Villar, FOOD SERVICE TRAY ATTENDANT-FOOD AND NUTRITION SERVICES ASSISTANT Note: Evaluation of progress towards goal: discharge home with congregation/friends support. <enter goal here> General Yes Sunita Tomlinson LSW Note: Evaluation of progress towards goal: plan home self care documented as of this encounter Visit Diagnoses Not on filedocumented in this encounter Care Teams Nozzle And Sleeve Worker Relationship Specialty Start Date End Date Services, [facility] [address] [place], [place] PCP - General Family Medicine 04/16/24 documented as of this encounter
--- OUTSIDE RECORDS SUMMARY | 2025-01-29 15:20 | XMS_ITS | Encounter Summary ---
Author Organization [facility] Address [id number] [address] [place] [address] Care Team Providers Care Activities Counselor Name Role Phone Services, [facility] Primary Care Provider Encounter Details Date Type Department Care Team (Late st Contact Info) Description 05/08/2020 Orders Only [facility] Cardiology [address] [place] [phone] External, Scanning Provider Social History Tobacco Use [...] hospital to home General Yes Laurie Villar, ELECTRONIC FUNDS TRANSFER COORDINATOR-BASE BRANDER Note: Evaluation of progress towards goal: discharge home with adventism/friends support. <enter goal here> General Yes Sunita [...] documented as of this encounter Care Teams Activities Counselor Relationship Specialty Start Date End Date Services, [facility] [address] [place], [place] PCP - General Family Medicine 04/16/24 documented as of this encounter
== END 2025-01-29 15:08 | disposition home or self-care (01) ==
LOC: WC 15:17
PROVIDERS: Visit Provider Podiatrist Foot & Ankle Surgery
DX: E11.621 Type 2 diabetes mellitus with foot ulcer (principal); L97.322 Non-pressure chronic ulcer of left ankle with fat layer exposed; L97.412 Non-pressure chronic ulcer of right heel and midfoot with fat layer exposed; E11.622 Type 2 diabetes mellitus with other skin ulcer; Z79.85 Long-term (current) use of injectable non-insulin antidiabetic drugs; Z79.84 Long term (current) use of oral hypoglycemic drugs
CPT/HCPCS: 11042

== ENCOUNTER 2025-02-19 10:04 | Outpatient (OUT) | payer MEDICARE, MEDICAID, SELFPAY ==
--- OUTSIDE RECORDS SUMMARY | 2025-02-19 10:15 | XMS_ITS | CCD ---
Author Organization [facility] Care Team Providers Care Associate Name Role Phone MARIANA GUTIÉRREZ Attending Unavailable MARIANA GUTIÉRREZ Admitting Unavailable MARIANA GUTIÉRREZ Attending Unavailable MARIANA GUTIÉRREZ Admitting Unavailable MARIANA GUTIÉRREZ Admitting Unavailable MARIANA GUTIÉRREZ Attending Unavailable CHET FOURNIER Admitting Unavailable CHET FOURNIER Attending Unavailable MARIANA GUTIÉRREZ Admitting Unavailable MARIANA GUTIÉRREZ Attending Unavailable MARIANA GUTIÉRREZ Admitting Unavailable DR EDILSON DON Consulting Unavailable MARIANA GUTIÉRREZ Attending Unavailable MARIANA GUTIÉRREZ Consulting Unavailable MARIANA GUTIÉRREZ Admitting Unavailable MARIANA GUTIÉRREZ Consulting Unavailable MARIANA GUTIÉRREZ Attending Unavailable Services, [facility] Primary [facility] Provider Services, [facility] Primary [facility] Provider Services, [facility] Primary Care Provider GRETTA WHITLOCK Admitting Unavailable GRETTA WHITLOCK Attending Unavailable GRETTA WHITLOCK Referring Unavailable SERVICES, [facility] Primary Care Unava ilable Bradley Saucedo Primary Care Provider GRETTA WHITLOCK Attending Unavailable SERVICES, [facility] Primary Care Unava ilable GRETTA WHITLOCK Attending Unavailable MARIANA GUTIÉRREZ Referring Unavailable SERVICES, [facility] Primary Care Unava ilable Mariana Gutiérrez DPM Attending Provider [phone] Mariana Gutiérrez Attending Unavailable Mariana Gutiérrez Admitting Unavailable BEBETO BEARD Attending Unavailable EDILSON GUZMAN Attending Unavailable EDILSON GUZMAN Attending Unavailable BEBETO ROMANO Attending Unavailable ALBER HYDE Referring Unavailable SERVICES, [facility] Primary Care Unava ilable BEBETO ROMANO Attending Unavailable BEBETO ROMANO Referring Unavailable SERVICES, [facility] Primary Care Unava ilable BEBETO ROMANO Attending Unavailable ALBER HYDE Referring Unavailable SERVICES, formerly [facility] Care Unava ilable SERVICES, formerly [facility] Care Unava ilable ALLENDIVYA SANDRESON Attending Unavailable ALBER HYDE Admitting Unavailable DIMITRI, ALBER Valera Attending Unavailable ALBER HYDE Referring Unavailable HDYE, ALBER Valera Attending Unavailable DIMITRI, ALBER Valera Referring Unavailable SERVICES, [facility] Unava ilable ROGELIOCARLOS, IZZY A Referring Unavailable SERVICES, [facility] Unava ilable KHADARCHAUNCEY, BEBETO Mera Attending Unavailable ALBER HYDE Referring Unavailable SERVICES, [facility] Unava ilable MARIANA GUTIÉRREZ Referring Unavailable SERVICES, [facility] Unava ilable SERVICES, [facility] Unava ilable VANDANA BRAR Attending Unavailable SERVICES, [facility] Unava ilable SERVICES, [facility] Unava ilable EDILSON FERNANDES Attending Unavailable VANDANA BRAR Attending Unavailable VANDANA BRAR Referring Unavailable SERVICES, [facility] Unava ilable VANDANA BRAR Attending Unavailable VANDANA BRAR Referring Unavailable SERVICES, [facility] Unava ilable VANDANA BRAR Attending Unavailable VANDANA BRAR Referring Unavailable SERVICES, [facility] Unava ilable VANDANA BRAR Attending Unavailable VANDANA BRAR Referring Unavailable SERVICES, [facility] Unava ilable SERVICES, [facility] Unava ilable JAIRO GARG Attending Unavailable SHERINE RAMIRES Referring Unavailable SERVICES, [facility] Unava ilable SHERINE RAMIRES Referring Unavailable SERVICES, [facility] Unava ilable Medications Current Medications Medication Drug Class(es) Dates Sig (Normalized) Sig (Original) 8 hr acetaminophen 650 mg extended release oral tablet (19 sources) take 1 tablet by mouth every [...] tablet by mouth in the morning amiodarone (Pacerone) 200 MG tablet Take 200 mg by mouth in the morning. 09/04/2024 Active aspirin 81 mg delayed release oral tablet (20 sources) Platelet Aggregation Inhibitor, Nonsteroidal Anti-inflammatory Drug take 1 tablet by mouth in the morning aspirin 81 MG EC tablet Take 81 mg by mouth in the morning. Active atorvastatin 20 mg oral tablet (11 sources) HMG-CoA Reductase Inhibitor Start: 09-02-2024 take 1 tablet by mouth in the morning atorvastatin (Lipitor) 20 MG tablet Take 20 mg by mouth in the morning. 09/02/2024 Active cephalexin 500 mg oral capsule (4 sources) Cephalosporin Antibacterial cephalexin (Keflex) 500 MG [...] tablet (20 sources) Sodium-Glucose Cotransporter 2 Inhibitor Jardiance 25 MG 1 (o ne) time each day at the same time Active take 1 tablet by mouth in the mo rning empagliflozin (JARDIANCE) 25 mg tablet tablet Take 1 tablet (25 mg total) by mouth in the morning. Active 3 ml insulin glargine 100 unt/ml [...] Active magnesium oxide 400 mg oral tablet (20 sources) Start: 09-30-2024 magnesium oxid e (Mag-Ox) [...] hours in the morning metoprolol succinate XL (Toprol-XL) 100 MG 24 hr tablet Take 100 mg by mouth in the morning. 07/22/2024 Active Start: 05-23-2024 take 1 tablet [...] tablet (20 sources) Factor Xa Inhibitor Start: 12-19-2024 take 1 tablet by mouth in the morning XARELTO 20 mg tablet tablet Indications: Atrial fibrillation, unspecified type (CMS-HCC) TAKE 1 TABLET (20 MG TOTAL) BY MOUTH IN THE MORNING 90 tablet 2 12/19/2024 Active Start: 05-19-2023 End: 12-19-2024 take 1 tablet by mouth once daily Xarelto 20 MG tablet Take 20 mg by mouth Daily 02/21/2024 Active sertraline 50 mg oral tablet (20 sources) Serotonin Reuptake Inhibitor take 1 tablet by mouth in the morning sertraline (Zoloft) 50 MG tablet Take 50 mg by mouth in the morning. Active take [...] instructed. 09/04/2024 Discontinued (Therapy completed) lactobacillus acidophilus [id number] unt / pectin 10 mg oral capsule [...] Active tamsulosin hydrochloride 0.4 mg oral capsule (20 sources) alpha-Adrenergic Elsi Start: 05-02-2020 End: 09-04-2024 take 1 capsule by mouth in the morning tamsulosin (FLOMAX) 0.4 mg capsule Take 1 capsule (0.4 mg total) by mouth in the morning. 05/02/2020 09/04/2024 Discontinued (Therapy completed) tamsulosin (Flom ax) 0.4 MG 24 hr capsule Active take 2 capsules by m outh once [...] 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: [BRADYCARDIA UNSPECIFIED] Onset: 08-26-2022 Episodic Chronic kidney disease (1 source) Chronic kidney disease; 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: [Chronic kidney disease, stage 3b] Onset: 01-01-2025 Chronic ulcer of skin (6 sources) Non-pressure [...] Coronary atherosclerosis; 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: [Atherosclerotic heart disease of [place] coronary artery without angina pectoris] Onset: 12-04-2018 12-04-2018 Chronic Diabetes mellitus with complications (20 sources) Type 2 diabetes mellitus with other skin ulcer; 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: [Type 2 diabetes mellitus with diabetic nephropathy] Onset: 04-18-2018 Chronic Disorders of lipid metabolism (19 sources) Pure hypercholesterolemia ; 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: [Pure hypercholesterolemia , unspecified] Onset: 12-04-2018 12-04-2018 Chronic E Codes: Fall (1 source) Fall Onset: 04-16-2024 Essential hypertension (20 sources) Essential (primary) hypertension; 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: [Essential hypertension] Onset: 11-17-2021 11-17-2021 Chronic Gangrene (7 sources) Critical lower limb ischemia ; 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: [Atherosclerosis of [place] arteries of extremities with gangrene, left leg] Onset: 09-26-2024 09-26-2024 Chronic Genitourinary symptoms and ill-defined conditions (18 sources) Functional urinary incontinence; Translations: [Functional urinary [...] caused by tuberculosis or sexually transmitted disease) (18 sources) Osteomyelitis; Translations: [Osteomyelitis, unspecified] Onset: 11-17-2021 11-17-2021 Chronic Mycoses (1 source) Onychomycosis due to dermatophyte ; Translations: [Tinea unguium] 01-09-2025 Episodic Nutritional deficiencies (1 source) Vitamin D deficiency, unspecified; Translations: [VITAMIN D DEFICIENCY UNSPECIFIED] Onset: 08-26-2022 Chronic Osteoarthritis (5 sources) Arthritis of right knee; Translations: [Unilateral primary osteoarthritis, right knee] Onset: 09-13-2024 10-02-2024 Chronic Other aftercare (1 source) Long-term current use of drug therapy; Translations: [Encounter for therapeutic drug level monitoring] 09-04-2024 Episodic Other bone disease and musculoskeletal deformities (3 sources) History of amputation of left foot; [...] Episodic Other nutritional; endocrine; and metabolic disorders (18 sources) Hypomagnesemia; Translations: [Hypomagnesemia] Onset: 11-17-2021 11-17-2021 Chronic Other skin disorders (1 source) Dystrophia unguium; Translations: [Nail dystrophy] 01-09-2025 Episodic Peripheral and visceral atherosclerosis (3 sources) Peripheral vascular disease, unspecified; Translations: [Peripheral vascular disease] Onset: 08-26-2022 09-26-2024 Chronic Skin and subcutaneous tissue infections (2 sources) Paronychia of toe of right foot; Translations: [Cellulitis of right toe] 10-04-2024 Episodic Spondylosis; intervertebral disc disorders; other back problems (18 sources) Lumbosacral spondylosis without myelopathy; Translations: [Spondylosis without myelopathy or radiculopathy, lumbosacral region] Onset: 02-22-2024 05-03-2024 Chronic Unclassified (1 source) CHRN KIDNEY DISEASE STG 3 UNSP; Translations: [CHRN KIDNEY DISEASE STG 3 UNSP] Onset: 09-21-2022 Unclassified (1 source) critical limb ischemia Onset: 09-27-2024 Unclassified (1 source) ANGIO 09-27-24 Onset: 10-10-2024 Unclassified (1 source) Weakness - Generalized Onset: 11-14-2024 Unclassified (1 source) Device Check Onset: 09-04-2024 Unclassified (1 source) Ventricular tachycardia, unspecified; Translations: [Ventricular tachycardia, unspecified] Onset: 12-16-2019 Unclassified (1 source) EMS Onset: 04-16-2024 Past or Other Problems Problem Classification Problem Date Documented Date Episodic/Chronic Complications of surgical procedures or medical care (18 sources) Non-healing surgical wound; Translations: [Other complications of procedures, not elsewhere classified, initial encounter] Onset: 10-01-2021 10-01-2021 Episodic E Codes: Fall (1 source) Unspecified fall, initial encounter; Translations: [Unspecified fall, initial encounter] Onset: 04-16-2024 Episodic Genitourinary symptoms and ill-defined conditions (18 sources) Scot hematuria; Translations: [Gross hematuria] Onset: 09-15-2021 09-15-2021 Episodic Malaise and fatigue (1 source) Weakness; Translations: [Weakness] Onset: 11-14-2024 Episodic Nonspecific chest pain (18 sources) Chest pain; Translations: [Chest pain, unspecified] Onset: 11-22-2017 11-22-2017 Episodic Open wounds of head; neck; and trunk (18 sources) Open wound of scalp ; Translations: [Unspecified open wound of scalp, initial encounter] Onset: 03-02-2018 03-02-2018 Episodic Other acquired deformities (1 source) Spondylolysis; Translations: [Spondylolysis, lumbar region] 01-09-2024 Episodic Other aftercare (1 source) Encounter for therapeutic drug level monitoring; Translations: [Encounter for therapeutic drug level monitoring] Onset: 09-04-2024 Episodic Other aftercare (1 source) Other termite control service representative (current) drug therapy; Translations: [Other senior care (current) drug therapy] Onset: 09-04-2024 Episodic Other connective tissue disease (18 sources) Myositis; Translations: [Myositis, unspecified] Onset: 08-10-2021 08-10-2021 Episodic Other eye disorders (18 sources) Degenerative changes of anterior chamber angle; Translations: [Degeneration of chamber angle, unspecified eye] Onset: 11-17-2021 11-17-2021 Episodic Other non-traumatic joint disorders (3 sources) Pain in right knee; Translations: [Pain in joint, lower leg] Onset: 09-13-2024 10-02-2024 Episodic Other non-traumatic joint disorders (1 source) Knee pain Onset: 09-13-2024 Episodic Other screening for suspected conditions (not mental disorders or infectious disease) (1 source) Other specified abnormal findings of blood chemistry; Translations: [Other specified abnormal findings of blood chemistry] Onset: 05-09-2024 Episodic Other upper respiratory disease (1 source) Epistaxis; Translations: [Epistaxis] Onset: 04-16-2024 Episodic Pleurisy; pneumothorax; pulmonary collapse (1 source) Pleural effusion, not elsewhere classified; Translations: [Pleural effusion, not elsewhere classified] Onset: 11-14-2024 Episodic Pneumonia (except that caused by tuberculosis or sexually transmitted disease) (1 source) Pneumonia, unspecified organism; Translations: [Pneumonia, unspecified organism] Onset: 11-14-2024 Episodic Skull and face fractures (1 source) Fracture of nasal bones, initial encounter for closed fracture; Translations: [Fracture of nasal bones, initial encounter for closed fracture] Onset: 04-16-2024 Episodic Spondylosis; intervertebral disc disorders; other back problems (3 sources) Lumbar radiculopathy; Translations: [Radiculopathy, lumbar region] Onset: 02-22-2024 02-22-2024 Episodic Results Test Name Value Interpretation Reference Range Facility ALBUMINon 02-13-2025 Albumin [Mass/Vol] 4.2 g/dL Normal 3.2-5.3 [facility] Comment on above: Performed By: #### B MP, CBCA, 05066-2, PINR #### [facility] ([id number]) [address] [place] [address] 14369 BASIC METABOLIC PANELon 01-31 Anion gap [Moles/Vol] 11 mmol/L Normal 5-15 [facility] Comment on above: Performed By: #### B MP, CBCA, 41731-3, PINR #### [facility] ([id number]) [address] [place] [address] 96260 Calcium [Mass/Vol] 9.1 mg/dL Normal 8.5-10.5 [facility] Comment on above: Performed By: #### B MP, CBCA, 97858-0, PINR #### [facility] ([id number]) [address] [place] [address] 61238 Chloride [Moles/Vol] 99 mmol/L Normal 98-109 [facility] Comment on above: Performed By: #### B MP, CBCA, 48755-7, PINR #### [facility] ([id number]) [address] [place] [address] 05946 CO2 [Moles/Vol] 28 mmol/L Normal 22-32 [facility] Comment on above: Performed By: #### B MARTHA HSIEH, 93783-2, PINR #### [facility] ([id number]) [address] [place] [address] 33454 Creatinine [Mass/Vol] 1.30 mg/dL Normal 0.60-1.30 [facility] Comment on above: Result Comment: METH OD TRACEABLE TO IDMS STANDARD Performed By: #### B MATRHA HSIEH, 82843-8, PINR #### [facility] ([id number]) [address] [place] [address] 93601 GFR/1.73 sq M.predicted among non-blacks MDRD (S/P/Bld) [Vol rate/Area] 59 mL/min/{1.73_m2} Low >=60 [facility] Comment on above: Result Comment: Repo rted eGFR is based on the CKD-EPI 2020 equation that does not use a race coefficient. Performed By: #### B MARTHA HSIEH, 39194-5, PINR #### [facility] ([id number]) [address] [place] [address] 48751 Glucose [Mass/Vol] 203 mg/dL High 65-99 [facility] Comment on above: Performed By: #### B MARTHA HSIEH, 22064-0, PINR #### [facility] ([id number]) [address] [place] [address] 05574 Potassium [Moles/Vol] 4.6 mmol/L Normal 3.5-5.0 [facility] Comment on above: Performed By: #### B MARTHA HSIEH, 17545-5, PINR #### [facility] ([id number]) [address] [place] [address] [place] [address] Sodium [Moles/Vol] 138 mmol/L Normal 134-146 [facility] Comment on above: Performed By: #### B MP, CBCA, 69460-0, PINR #### [facility] ([id number]) [address] [place] [address] 90990 Urea nitrogen [Mass/Vol] 16 mg/dL Normal 5-27 [facility] Comment on above: Performed By: #### B MP, CBCA, 49013-2, PINR #### [facility] ([id number]) [address] [place] [address] 71663 CBC (NO DIFF)on 02-13-2025 Erythrocyte distribution width (RBC) [Ratio] 16.2 % High 11.5-15 [facility] Comment on above: Performed By: #### B МАРИЯ, CBCA, 99166-1, PINR #### [facility] ([id number]) [address] [place] [address] 50434 Hematocrit (Bld) [Volume fraction] 36.1 % Low 39-50 [facility] Comment on above: Performed By: #### B МАРИЯ, CBCA, 93301-2, PINR #### [facility] ([id number]) [address] [place] [address] 02681 Hemoglobin (Bld) [Mass/Vol] 11.6 g/dL Low 13-17 [facility] Comment on above: Performed By: #### B MP, CBCA, 68796-8, PINR #### [facility] ([id number]) [address] [place] [address] 70007 MCH (RBC) [Entitic mass] 27.0 pg Normal 27-34 [facility] Comment on above: Performed By: #### B MP, CBCA, 90436-1, PINR #### [facility] ([id number]) [address] [place] [address] 91693 MCHC (RBC) [Mass/Vol] 32.2 g/dL Normal 32-36 [facility] Comment on above: Performed By: #### B MP, CBCA, 87798-2, PINR #### [facility] ([id number]) [address] [place] [address] 23870 MCV (RBC) [Entitic vol] 84 fL Normal 80-100 [facility] Comment on above: Performed By: #### B MP, CBCA, 95990-0, PINR #### [facility] ([id number]) [address] [place] [address] 06331 Platelet mean volume (Bld) [Entitic vol] 8.0 fL Normal 7-12 [facility] Comment on above: Performed By: #### B MP, CBCA, 62863-1, PINR #### [facility] ([id number]) [address] [place] [address] 98964 Platelets (Bld) [#/Vol] 266 10*3/uL Normal 150-450 [facility] Comment on above: Performed By: #### B MP, CBCA, 44100-3, PINR #### [facility] ([id number]) [address] [place] [address] 27106 RBC COUNT 4.29 X10E12/L Normal 4.1-5.7 [facility] Comment on above: Performed By: #### B MP, CBCA, 73232-7, PINR #### [facility] ([id number]) [address] [place] [address] 84936 WBC (Bld) [#/Vol] 6.3 10*3/uL Normal 4-11 [facility] Comment on above: Performed By: #### B MP, CBCA, 34327-8, PINR #### [facility] ([id number]) [address] [place] [address] 41829 MAGNESIUMon 02-13-2025 Magnesium [Mass/Vol] 2.1 mg/dL Normal 1.8-2.6 [facility] Comment on above: Performed By: #### B MARTHA HSIEH, 22666-5, PINR #### [facility] ([id number]) [address] [place] [address] 89703 MICROALBUMIN / CREATININE UR INE RATIOon 02-13-2025 Albumin DL <= 20 mg/L (U) [Mass/Vol] 9.9 mg/dL High 0.0-1.9 [facility] Comment on above: Performed By: #### B MARTHA HSIEH, 83981-7, PINR #### [facility] ([id number]) [address] [place] [address] 28947 MALB/CREAT RATIO 180.6 mg/g High 0.0-30.0 [facility] Comment on above: Performed By: #### B MARTHA HSIEH, 96974-4, PINR #### [facility] ([id number]) [address] [place] [address], [place] [address] URINE CREATININE,RDM 54.83 mg/dL Normal [facility] Comment on above: Performed By: #### B MARTHA HSIEH, 20536-7, PINR #### [facility] ([id number]) [address] [place] [address], [place] [address] PARATHYROID HORMOME, INTACTo n 02-13-2025 PTH INTACT 75 pg/mL Normal 12-88 [facility] Comment on above: Performed By: #### B MARTHA HSIEH, 81986-0, PINR #### [facility] ([id number]) [address] [place] [address] 39726 PHOSPHORUSon 02-13-2025 Phosphate [Mass/Vol] 3.5 mg/dL Normal 2.4-4.9 [facility] Comment on above: Performed By: #### B MARTHA HSIEH, 60722-6, PINR #### [facility] ([id number]) [address] [place] [address] 53748 URIC ACIDon 02-13-2025 Urate [Mass/Vol] 6.2 mg/dL Normal 2.6-7.2 [facility] Comment on above: Performed By: #### B MP, CBCA, 88481-6, PINR #### [facility] ([id number]) [address] [place] [address] [place] [address] URINALYSISon 02-13-2025 Bilirubin Ql (U) Negative Normal Negative [facility] Comment on above: Performed By: #### B MP, CBCA, 93599-5, PINR #### [facility] ([id number]) [address] [place] [address] [place] [address] BLOOD/HGB Negative Normal Negative [facility] Comment on above: Performed By: #### B MP, CBCA, 40076-3, PINR #### [facility] ([id number]) [address] [place] [address] 61070 Color (U) Yellow Normal Yellow [facility] Comment on above: Performed By: #### B MP, CBCA, 14882-9, PINR #### [facility] ([id number]) [address] [place] [address] [place] [address] Glucose Ql (U) >1000 mg/dL Abnormal Negative [facility] Comment on above: Performed By: #### B MP, CBCA, 50064-1, PINR #### [facility] ([id number]) [address] [place] [address] 61608 Ketones Ql (U) Negative Normal Negative [facility] Comment on above: Performed By: #### B MP, CBCA, 55380-3, PINR #### [facility] ([id number]) [address] [place] [address], [place] [address] Leukocyte esterase Test strip Ql (U) Small Abnormal Negative [facility] Comment on above: Result Comment: High Concentrations of Glucose May Decrease the Reactivity of the Dipstick Leukocyte Test Pad. Performed By: #### B MP, CBCA, 51679-5, PINR #### [facility] ([id number]) [address] [place] [address] [place] [address] MUCOUS Present Abnormal None [facility] Comment on above: Performed By: #### B MP, CBCA, 27162-1, PINR #### [facility] ([id number]) [address] [place] [address] 99211 Nitrite Ql (U) Positive Abnormal Negative [facility] Comment on above: Performed By: #### B MP, CBCA, 79691-9, PINR #### [facility] ([id number]) [address] [place] [address] [place] [address] PH,URINE 5.5 Normal 5.0-8.5 [facility] Comment on above: Performed By: #### B МАРИЯ, CBCA, 04853-0, PINR #### [facility] ([id number]) [address] [place] [address] 86919 Protein Ql (U) Trace Abnormal Negative [facility] Comment on above: Performed By: #### B MP, CBCA, 18100-9, PINR #### [facility] ([id number]) [address] [place] [address] [place] [address] R.B.CELLS 3 Normal 0-5 [facility] Comment on above: Performed By: #### B MP, CBCA, 34072-8, PINR #### [facility] ([id number]) [address] [place] [address] 65101 Specific gravity (U) [Rel density] 1.031 Normal 1.003-1.035 [facility] Comment on above: Performed By: #### B MP, CBCA, 51855-0, PINR #### [facility] ([id number]) [address] [place] [address] 58652 TURBIDITY Clear Normal Clear [facility] Comment on above: Performed By: #### B MP, CBCA, 09972-2, PINR #### [facility] ([id number]) [address] [place] [address] 96843 UROBILINOGEN <1.1 eu/dL Normal <1.1 eu/dL [facility] Comment on above: Performed By: #### B MP, CBCA, 79161-9, PINR #### [facility] ([id number]) [address] [place] [address] 57279 W.B.CELLS 9 High 0-5 [facility] Comment on above: Performed By: #### B MP, CBCA, 21901-0, PINR #### [facility] ([id number]) [address] [place] [address] 91761 VITAMIN D 25 HYDROXYon 02-13 VITAMIN D 25 HYD TOT 36.6 ng/mL Normal 30.0-100.0 [facility] Comment on above: Order Comment: Vitam in D status 25 [place] Vitamin D Deficiency <20 ng/mLInsufficiency 20-29 ng/mLSufficiency 30-100 ng/mLToxicity >100 ng/mLNOTE: A pediatric reference range has not been established by the procurement consultant of this kit. The [place] [employer] recommends a Vitamin D level of = or >20ng/mL in infants and children. Performed By: #### B MP, CBCA, 14437-9, PINR #### [facility] ([id number]) [address] [place] [address] 78775 US RETROPERITONEAL COMPLETEo n 01-06-2025 US RETROPERITONEAL COMPLETE US RETROPERITONEAL COMPLETE HISTORY: A 69-year-old male with a history [...] Kali Luevano MD on 01/06/2025 2:08 PM Normal [facility] BEDSIDE GLUCOSEon 11-14-2024 Glucose [Mass/Vol] 249 mg/dL High 65-99 [facility] Comment on above: Performed By: #### B MP, CBCA, 91719-6, PINR #### [facility] ([id number]) [address] [place] [address] 91750 CBC WITH AUTO DIFFERENTIALon 11-14-2024 BASOPHILS ABSOLUTE COUNT (10*3/UL) BY AUTOMATED COUNT 0.1 10*3/uL Normal 0.0-0.2 [facility] Comment on above: Performed By: #### B MP, CBCA, 43007-4, PINR #### [facility] ([id number]) [address] [place] [address] 81714 BASOPHILS RELATIVE PERCENT BY AUTOMATED COUNT 0.6 % Normal [facility] Comment on above: Performed By: #### B MP, CBCA, 60287-2, PINR #### [facility] ([id number]) [address] [place] [address] 29071 CELLAVISION DIFFERENTIAL TYPE AUTOMATED DIFFERENTIAL Normal [facility] Comment on above: Performed By: #### B MP, CBCA, 96775-1, PINR #### [facility] ([id number]) [address] [place] [address] 57261 Eosinophils (Bld) [#/Vol] 0.0 10*3/uL Normal 0.0-0.4 [facility] Comment on above: Performed By: #### B MP, CBCA, 29674-3, PINR #### [facility] ([id number]) [address] [place] [address] 56110 EOSINOPHILS RELATIVE PERCENT BY AUTOMATED COUNT 0.2 % Normal [facility] Comment on above: Performed By: #### B MP, CBCA, 17825-6, PINR #### [facility] ([id number]) [address] [place] [address] 20021 Erythrocyte distribution width (RBC) [Ratio] 16.3 % High 11.5-15 [facility] Comment on above: Performed By: #### B MP, CBCA, 00429-3, PINR #### [facility] ([id number]) [address] [place] [address] 51930 Hematocrit (Bld) [Volume fraction] 34.6 % Low 39-50 [facility] Comment on above: Performed By: #### B MP, CBCA, 17744-6, PINR #### [facility] ([id number]) [address] [place] [address] 26916 Hemoglobin (Bld) [Mass/Vol] 11.4 g/dL Low 13-17 [facility] Comment on above: Performed By: #### B MP, CBCA, 16508-9, PINR #### [facility] ([id number]) [address] [place] [address] 58924 LYMPHOCYTES ABSOLUTE COUNT (10*3/UL) BY AUTOMATED COUNT 1.5 10*3/uL Normal 1.0-3.5 [facility] Comment on above: Performed By: #### B MP, CBCA, 97173-1, PINR #### [facility] ([id number]) [address] [place] [address] 73112 LYMPHOCYTES RELATIVE PERCENT BY AUTOMATED COUNT 16.3 % Normal [facility] Comment on above: Performed By: #### B MP, CBCA, 27046-4, PINR #### [facility] ([id number]) [address] [place] [address] 84537 MCH (RBC) [Entitic mass] 29.6 pg Normal 27-34 [facility] Comment on above: Performed By: #### B MP, CBCA, 32927-2, PINR #### [facility] ([id number]) [address] [place] [address] 91793 MCHC (RBC) [Mass/Vol] 32.9 g/dL Normal 32-36 [facility] Comment on above: Performed By: #### B MP, CBCA, 51350-3, PINR #### [facility] ([id number]) [address] [place] [address] 22204 MCV (RBC) [Entitic vol] 90 fL Normal 80-100 [facility] Comment on above: Performed By: #### B MP, CBCA, 85903-4, PINR #### [facility] ([id number]) [address] [place] [address] 41319 MONOCYTES ABSOLUTE COUNT (10*3/UL) BY AUTOMATED COUNT 1.1 10*3/uL High 0.0-0.9 [facility] Comment on above: Performed By: #### B MP, CBCA, 45617-3, PINR #### [facility] ([id number]) [address] [place] [address] 47270 MONOCYTES RELATIVE PERCENT BY AUTOMATED COUNT 12.7 % Normal [facility] Comment on above: Performed By: #### B MP, CBCA, 26506-3, PINR #### [facility] ([id number]) [address] [place] [address] 34768 NEUTROPHILS ABSOLUTE COUNT BY AUTOMATED COUNT 6.4 10*3/uL Normal 1.5-6.6 [facility] Comment on above: Performed By: #### B MP, CBCA, 00058-1, PINR #### [facility] ([id number]) [address] [place] [address] 63356 NEUTROPHILS RELATIVE PERCENT BY AUTOMATED COUNT 70.2 % Normal [facility] Comment on above: Performed By: #### B MP, CBCA, 76601-2, PINR #### [facility] ([id number]) [address] [place] [address] 32083 Platelet mean volume (Bld) [Entitic vol] 7.6 fL Normal 7-12 [facility] Comment on above: Performed By: #### B MP, CBCA, 54642-1, PINR #### [facility] ([id number]) [address] [place] [address] 09763 Platelets (Bld) [#/Vol] 305 10*3/uL Normal 150-450 [facility] Comment on above: Performed By: #### B MP, CBCA, 00669-2, PINR #### [facility] ([id number]) [address] [place] [address] 06744 RBC COUNT 3.85 X10E12/L Low 4.1-5.7 [facility] Comment on above: Performed By: #### B MP, CBCA, 23095-1, PINR #### [facility] ([id number]) [address] [place] [address] 71833 WBC (Bld) [#/Vol] 9.0 10*3/uL Normal 4-11 [facility] Comment on above: Performed By: #### B MP, CBCA, 95248-7, PINR #### [facility] ([id number]) [address] [place] [address] 43920 COMPREHENSIVE METABOLIC PANE [facility] 11-14-2024 Albumin [Mass/Vol] 3.9 g/dL Normal 3.2-5.3 [facility] Comment on above: Performed By: #### B MP, CBCA, 87458-1, PINR #### [facility] ([id number]) [address] [place] [address] 83554 ALP [Catalytic activity/Vol] 43 U/L Normal 39-130 [facility] Comment on above: Performed By: #### B MP, CBCA, 80585-4, PINR #### [facility] ([id number]) [address] [place] [address] 15362 ALT [Catalytic activity/Vol] 11 U/L Normal <=40 [facility] Comment on above: Performed By: #### B MP, CBCA, 44187-1, PINR #### [facility] ([id number]) [address] [place] [address] 87227 Anion gap [Moles/Vol] 10 mmol/L Normal 5-15 [facility] Comment on above: Performed By: #### B MP, CBCA, 42054-7, PINR #### [facility] ([id number]) [address] [place] [address] 49813 AST [Catalytic activity/Vol] 19 U/L Normal <=41 [facility] Comment on above: Performed By: #### B MP, CBCA, 36953-1, PINR #### [facility] ([id number]) [address] [place] [address] 52757 Bilirubin [Mass/Vol] 0.5 mg/dL Normal 0.3-1.2 [facility] Comment on above: Performed By: #### B МАРИЯ, CBCA, 98013-8, PINR #### [facility] ([id number]) [address] [place] [address] 86215 Calcium [Mass/Vol] 8.8 mg/dL Normal 8.5-10.5 [facility] Comment on above: Performed By: #### B МАРИЯ, CBCA, 67617-8, PINR #### [facility] ([id number]) [address] [place] [address] 13578 Chloride [Moles/Vol] 100 mmol/L Normal 98-109 [facility] Comment on above: Performed By: #### B МАРИЯ, CBCA, 26065-7, PINR #### [facility] ([id number]) [address] [place] [address] 24809 CO2 [Moles/Vol] 24 mmol/L Normal 22-32 [facility] Comment on above: Performed By: #### B МАРИЯ, CBCA, 53828-6, PINR #### [facility] ([id number]) [address] [place] [address] 62354 Creatinine [Mass/Vol] 1.49 mg/dL High 0.70-1.20 [facility] Comment on above: Result Comment: METH OD TRACEABLE TO IDMS STANDARD Performed By: #### B МАРИЯ, CBCA, 94716-1, PINR #### [facility] ([id number]) [address] [place] [address] 76257 GFR/1.73 sq M.predicted among non-blacks MDRD (S/P/Bld) [Vol rate/Area] 50 mL/min/{1.73_m2} Low >=60 [facility] Comment on above: Result Comment: eGFR not reported due to non-numeric value for Creatinine. Reported eGFR is based on the CKD-EPI 2020 equation that does not use a race coefficient. Performed By: #### B МАРИЯ, CBCA, 03397-4, PINR #### [facility] ([id number]) [address] [place] [address] 41951 Glucose [Mass/Vol] 246 mg/dL High 65-99 [facility] Comment on above: Performed By: #### B МАРИЯ, CBCA, 89552-0, PINR #### [facility] ([id number]) [address] [place] [address] 94331 Potassium [Moles/Vol] 4.4 mmol/L Normal 3.5-5.0 [facility] Comment on above: Performed By: #### B МАРИЯ, CBCA, 47061-2, PINR #### [facility] ([id number]) [address] [place] [address] 07958 Protein [Mass/Vol] 7.2 g/dL Normal 6.0-8.0 [facility] Comment on above: Performed By: #### B МАРИЯ, CBCA, 70728-1, PINR #### [facility] ([id number]) [address] [place] [address] 69790 Sodium [Moles/Vol] 134 mmol/L Normal 134-146 [facility] Comment on above: Performed By: #### B МАРИЯ, CBCA, 27479-5, PINR #### [facility] ([id number]) [address] [place] [address] 77397 Urea nitrogen [Mass/Vol] 23 mg/dL Normal 5-27 [facility] Comment on above: Performed By: #### B МАРИЯ, CBCA, 30160-6, PINR #### [facility] ([id number]) [address] [place] [address] 63064 D-DIMERon 11-14-2024 D DIMER <^150 Normal 1-255 [facility] Comment on above: Result Comment: Resu lts <255 ng/mL DDU: The presensence of a VTE can safely be excluded with a negative D-Dimer result and Wells score. A negative result doesn't exclude the possibility of DIC. The test should be repeated along with other diagnostic tests if the patient's symptoms persist or worsen. Performed By: #### B MP, CBCA, 73783-9, PINR #### [facility] ([id number]) [address] [place] [address] 66643 LIPASEon 11-14-2024 Lipase [Catalytic activity/Vol] 36 U/L Normal 17-40 [facility] Comment on above: Performed By: #### B МАРИЯ, CBCA, 70876-6, PINR #### [facility] ([id number]) [address] [place] [address] 77355 MAGNESIUMon 11-14-2024 Magnesium [Mass/Vol] 2.1 mg/dL Normal 1.8-2.6 [facility] Comment on above: Performed By: #### B МАРИЯ, CBCA, 56966-7, PINR #### [facility] ([id number]) [address] [place] [address] 61435 TROP I, HIGH SENSITIVITY 1 H OURon 11-14-2024 TROPONIN I, HIGH SENSITIVITY 8 ng/L Normal <21 [facility] Comment on above: Performed By: #### B MP, CBCA, 93091-9, PINR #### [facility] ([id number]) [address] [place] [address] 40452 TROPONIN I, HIGH SENSITIVITY 0 HOURon 11-14-2024 TROPONIN I, HIGH SENSITIVITY 7 ng/L Normal <21 [facility] Comment on above: Performed By: #### B MP, CBCA, 86493-3, PINR #### [facility] ([id number]) [address] [place] [address], [place] [address] XR CHEST 1 VWon 11-14-2024 XR CHEST 1 VW XR CHEST 1 VW History: weakness Exam/Technique: Single AP view of [...] Fausto Angulo MD on 11/14/2024 1:19 AM Normal [facility] XR FOOT LT MIN 3 VWSon 11-14 XR FOOT LT MIN 3 VWS XR FOOT LT MIN 3 VW S History: Weakness Exam/Technique: 3 views of the left foot were obtained. Comparison: None Findings: Transmetatarsal amputation of the digits is seen. Extensive vascular calcifications are identified. No complicating processes are seen. There is no evidence for an acute osseous abnormality. IMPRESSION: Transmetatarsal amputations of the digits. Otherwise normal left foot. Finalized by Stan Jaramillo MD on 11/14/2024 1:31 AM Normal [facility] Alex 11-12-2024 L --- Specimen: [id number] Received: 11/13/24 Status: [place] Num: [id number] Spec Type: Surgical Subm Dr: Mariana Gutiérrez,NIKKI, [place] Tissues: A DIGIT AMPUTATION (LEFT FOREFOOT) Procedures: HE/5, Gross/Micro L4, Decalcification Age/ Patient Sex Location Account Attending Physician Radha Frausto/M LABELL [id number] Mariana Gutiérrez DPM, MS SPEC NUM: [id number] RECD: 11/13/24 STATUS: [place] ANNAMARIA NUM: [id number] EL: 11/12/[address] [facility] DR: Mariana Gutiérrez DPM, [place] ENTERED: 11/13/[address]: Christy,Lab SPEC TYPE: Surgical DEPT: YANIV HESTER ENTERED BY: [id number] RECV BY: [id number] ORDERED: HE/5, Gross/Micro L4, Decalcification ORDERED: HE/5, Gross/Micro L4, Decalcification Pathological Diagnosis Left forefoot, transmetatarsal amputation - Severe chronic nonhealing wound including focally infected crust over the third metatarsal bone with moderate serous degeneration in medullary space of the underneath bone - No osteomyelitis in all the examined bones - Viable proximal skin margin without acute inflammation, but with patchy nonspecific squamous acanthosis, and focal marked dermal fibrosis with mild chronic inflammation Clinical Information Acquired deformity status post partial 3rd through 5th amputation left foot Gross Description Part A is received in formalin labeled with the patients name, date of , and left forefoot is a transmetatarsal, left amputation specimen, consisting of the 1st and 2nd digits, with a portion of the third metatarsal bone. The proximal plantar surface is devoid of overlying skin, 6 x 6.3 cm and displays overlying pink-davenport to green, fibromembranous tissue, up to 0.8 cm in thickness. There is a crusted area, 0.8 x 0.9 cm that is situated 0.2 cm from the proximal skin margin and overlies the third metatarsal bone. The remainder the specimen is covered by rivera-davenport, wrinkled, focally sloughing skin. 10.5 x 6 x 3.5 cm en bloc. The dorsal distal aspect of the 2nd and 3rd displays a sheet of davenport-rivera keratinized nail, while the third metatarsal bone displays a blunted distal end, consistent with a previous resection. Specimen: [id number] Received: 11/13/24 Status: [place] Gordon Num: [id number] Spec Type: Surgical Subm Dr: Mariana Gutiérrez,NIKKI, MS Tissues: A DIGIT AMPUTATION (LEFT FOREFOOT) Procedures: MALLY/Shayan, Gross/Micro L4, Decalcification Patient: Radha Frausto [id number] (Continued) Specimen: [id number] Received: 11/13/24 (Continued) Gross Description (Continued) Signed (signature on file) Howie Up MD 11/19/24 1321 Specimen: [id number] Received: 11/13/24 Status: [place] Ashherber Num: [id number] Spec Type: Surgical Subm Dr: Mariana Gutiérrez,NIKKI, MS Tissues: A DIGIT AMPUTATION (LEFT FOREFOOT) Procedures: HE/5, Gross/Micro L4, Decalcification Patient: Radha Frausto [id number] (Continued) Specimen: [id number] Received: 11/13/24 (Continued) Gross Description (Continued) Cassettes: A1 Tangential sections of proximal skin margin A2 Crusted wound A3 Left third digit crusted area with underlying metatarsal bone, decalcified A4 Discolored soft tissue and underlying left, second proximal phalangeal bone, decalcified A5 Discolored soft tissue and underlying left, first metatarsal bone, decalcified (5, ss, [id number] A) Microscopic Description Microscopic examination is performed CPT Codes 52034 97019 Specimen: [id number] Received: 11/13/24 Status: [place] Annamaria Num: [id number] Spec Type: Surgical Subm Dr: Mariana Gutiérrez DPM, MS Tissues: A DIGIT AMPUTATION (LEFT FOREFOOT) Procedures: HE/5, Gross/Micro L4, Decalcification Patie (more content not included)... Normal [facility] No Panel Informationon 10-02 [facility] [place] 10/02/2024 [...] discussed. Consent was given by the patient. [facility] Glucose (Bld) [Mass/Vol]on 0 09-27-2024 Urea nitrogen [Mass/Vol] 19 mg/dL Normal 6-27 [facility] XR KNEE RT 3 VWSon 5 [...] on 09/13/2024 12:54 PM Normal [facility] Device Interrogationon 09-[address] [facility] Radiology Study observation (narrative) [facility] POCT EKGon 09-04-[address] [facility] CBC AND AUTO DIFFon 07-22-19 ABSOLUTE BASOPHIL 0.0 X10E9/L Normal 0.0-0.2 [facility] Comment on above: Performed By: #### B MP, CBCA, 65570-7, PINR #### [facility] ([id number]) [address] [place] [address] 62154 ABSOLUTE NEUTROPHIL 3.8 X10E9/L Normal 1.5-6.6 [facility] Comment on above: Performed By: #### B MP, CBCA, 78437-8, PINR #### [facility] ([id number]) [address] [place] [address] 90423 Basophils/100 WBC (Bld) 0.8 % Normal [facility] Comment on above: Performed By: #### B MP, CBCA, 95159-1, PINR #### [facility] ([id number]) [address] [place] [address] 96246 Eosinophils (Bld) [#/Vol] 0.0 10*3/uL Normal 0.0-0.4 [facility] Comment on above: Performed By: #### B MP, CBCA, 48937-0, PINR #### [facility] ([id number]) [address] [place] [address] 96372 Eosinophils/100 WBC (Bld) 0.7 % Normal [facility] Comment on above: Performed By: #### B MP, CBCA, 06799-0, PINR #### [facility] ([id number]) [address] [place] [address] 09249 Erythrocyte distribution width (RBC) [Ratio] 14.6 % Normal 11.5-15.0 [facility] Comment on above: Performed By: #### B MP, CBCA, 25964-5, PINR #### [facility] ([id number]) [address] [place] [address] 05874 Hematocrit (Bld) [Volume fraction] 42.0 % Normal 39-49 [facility] Comment on above: Performed By: #### B MP, CBCA, 00888-8, PINR #### [facility] ([id number]) [address] [place] [address] 76933 Hemoglobin (Bld) [Mass/Vol] 13.9 g/dL Normal 13.0-17.0 [facility] Comment on above: Performed By: #### B MP, CBCA, 07190-7, PINR #### [facility] ([id number]) [address] [place] [address] 61402 Lymphocytes (Bld) [#/Vol] 1.5 10*3/uL Normal 1.0-3.5 [facility] Comment on above: Performed By: #### B MP, CBCA, 79555-7, PINR #### [facility] ([id number]) [address] [place] [address] 76964 Lymphocytes/100 WBC (Bld) 24.7 % Normal [facility] Comment on above: Performed By: #### B MP, CBCA, 11541-4, PINR #### [facility] ([id number]) [address] [place] [address] 71113 MCH (RBC) [Entitic mass] 30.7 pg Normal 27-34 [facility] Comment on above: Performed By: #### B MP, CBCA, 20650-8, PINR #### [facility] ([id number]) [address] [place] [address] 29872 MCHC (RBC) [Mass/Vol] 33.0 g/dL Normal 32-36 [facility] Comment on above: Performed By: #### B MP, CBCA, 73616-4, PINR #### [facility] ([id number]) [address] [place] [address] 18392 MCV (RBC) [Entitic vol] 93 fL Normal 80-100 [facility] Comment on above: Performed By: #### B MP, CBCA, 04674-7, PINR #### [facility] ([id number]) [address] [place] [address] 97212 Monocytes (Bld) [#/Vol] 0.6 10*3/uL Normal 0-0.9 [facility] Comment on above: Performed By: #### B MP, CBCA, 45066-1, PINR #### [facility] ([id number]) [address] [place] [address] 54630 Monocytes/100 WBC (Bld) 9.7 % Normal [facility] Comment on above: Performed By: #### B MP, CBCA, 98560-4, PINR #### [facility] ([id number]) [address] [place] [address] 36569 Neutrophils/100 WBC (Bld) 64.1 % Normal [facility] Comment on above: Performed By: #### B MP, CBCA, 60227-2, PINR #### [facility] ([id number]) [address] [place] [address] 51889 Platelet mean volume (Bld) [Entitic vol] 8.2 fL Normal 7-12 [facility] Comment on above: Performed By: #### B MP, CBCA, 55024-4, PINR #### [facility] ([id number]) [address] [place] [address] 74203 Platelets (Bld) [#/Vol] 315 10*3/uL Normal 150-450 [facility] Comment on above: Performed By: #### B MP, CBCA, 11270-9, PINR #### [facility] ([id number]) [address] [place] [address] 89583 RBC COUNT 4.52 X10E12/L Normal 4.10-5.70 [facility] Comment on above: Performed By: #### B MP, CBCA, 33717-8, PINR #### [facility] ([id number]) [address] [place] [address] 72434 WBC (Bld) [#/Vol] 5.9 10*3/uL Normal 4.0-11.0 [facility] Comment on above: Performed By: #### B MP, CBCA, 52331-8, PINR #### [facility] ([id number]) [address] [place] [address] 08223 CRP [Mass/Vol]on 07-22-2024 C REACTIVE PROTEIN 1.9 mg/dL High 0.000-0.744 [facility] Comment on above: Performed By: #### B MP, CBCA, 79550-8, PINR #### [facility] ([id number]) [address] [place] [address] 17749 ESR Photometric method (Bld) [Velocity]on 07-22-2024 ESR, ERYTHROCYTE SEDIMENTATION RATE 47 mm/h High 0-20 [facility] Comment on above: Performed By: #### B MP, CBCA, 32520-6, PINR #### [facility] ([id number]) [address] [place] [address] 75508 HGB A1C (GLYCO-HGB)on 2024 Glucose [Mass/Vol] 203 mg/dL Normal [facility] Comment on above: Performed By: #### B MP, CBCA, 05763-9, PINR #### [facility] ([id number]) [address] [place], [place] [address] HbA1c (Bld) [Mass fraction] 8.7 % High 4.4-5.6 [facility] Comment on above: Result Comment: NOTE ADA Guidelines Result HgbA1c Normal : less than 5.7 % Prediabetes : 5.7 % to 6.4 % Diabetes : > 6.4 % Use with caution in patients with abnormal hemoglobin variants as the half-life of red blood cells and in vivo glycation rates are affected. Performed By: #### B MP, CBCA, 72278-2, PINR #### [facility] ([id number]) [address] [place] [address] 26067 COMPREHENSIVE METABOLIC PANE Alex 05-09-2024 Albumin [Mass/Vol] 4.2 g/dL Normal 3.2-5.3 [facility] Comment on above: Performed By: #### C МАРИЯ, TSHR #### [facility] ([id number]) [address] [place] [address] #### 49953-4 #### [facility] ([id number]) [address] [place] [address] ALP [Catalytic activity/Vol] 46 U/L Normal 39-130 [facility] Comment on above: Performed By: #### Jerry HSIEH TSHR #### [facility] ([id number]) [address] [place] [address] 58837 #### 72064-3 #### [facility] ([id number]) [address] [place] [address] ALT [Catalytic activity/Vol] 16 U/L Normal 0-40 [facility] Comment on above: Performed By: #### Jerry HSIEH TSHR #### [facility] ([id number]) [address] [place] [address] 32767 #### 34119-3 #### [facility] ([id number]) [address], [address] [place] [address] Anion gap [Moles/Vol] 10 mmol/L Normal 5-15 [facility] Comment on above: Performed By: #### Jerry HSIEH TSHR #### [facility] ([id number]) [address] [place] [address] 55215 #### 20167-6 #### [facility] ([id number]) [address] [place] [address] AST [Catalytic activity/Vol] 16 U/L Normal 0-41 [facility] Comment on above: Performed By: #### Jerry HSIEH TSHR #### [facility] ([id number]) [address] [place] [address] 30092 #### 28404-1 #### [facility] ([id number]) [address] [place] [address] Bilirubin [Mass/Vol] 0.5 mg/dL Normal 0.3-1.2 [facility] Comment on above: Performed By: #### Jerry HSIEH, TSHR #### [facility] ([id number]) [address] [place] [address] 61077 #### 33848-5 #### [facility] ([id number]) [address] [place] [address] Calcium [Mass/Vol] 9.3 mg/dL Normal 8.5-10.5 [facility] Comment on above: Performed By: #### Jerry HSIEH, TSHR #### [facility] ([id number]) [address] [place] [address] 14935 #### 82717-8 #### [facility] ([id number]) [address], [address] [place] [address] Chloride [Moles/Vol] 99 mmol/L Normal 98-109 [facility] Comment on above: Performed By: #### C МАРИЯ, TSHR #### [facility] ([id number]) [address] [place] [address] 63410 #### 46552-4 #### [facility] ([id number]) [address] [place] [address] CO2 [Moles/Vol] 26 mmol/L Normal 22-32 [facility] Comment on above: Performed By: #### Jerry HSIEH, TSHR #### [facility] ([id number]) [address] [place] [address] 32159 #### 78872-4 #### [facility] ([id number]) [address] [place] [address] Creatinine [Mass/Vol] 1.27 mg/dL High 0.70-1.20 [facility] Comment on above: Result Comment: METH OD TRACEABLE TO IDMS STANDARD Performed By: #### C МАРИЯ, TSHR #### [facility] ([id number]) [address] [place] [address] #### [id number] #### [facility] ([id number]) [address], [address] [place] [address] GFR/1.73 sq M.predicted among non-blacks MDRD (S/P/Bld) [Vol rate/Area] 61 mL/min/{1.73_m2} Normal >59 [facility] Comment on above: Result Comment: Reported eGFR is based on the CKD-EPI 2020 equation that does not use a race coefficient. Performed By: #### Jerry HSIEH TSHR #### [facility] ([id number]) [address] [place] [address] #### [id number] #### [facility] ([id number]) [address], [address] [place] [address] Glucose [Mass/Vol] 177 mg/dL High 65-99 [facility] Comment on above: Performed By: #### Jerry HSIEH TSHR #### [facility] ([id number]) [address] [place] [address] #### [id number] #### [facility] ([id number]) [address], [address] [place] [address] Potassium [Moles/Vol] 4.5 mmol/L Normal 3.5-5.0 [facility] Comment on above: Performed By: #### Jerry HSIEH TSHR #### [facility] ([id number]) [address] [place] [address] #### [id number] #### [facility] ([id number]) [address], [address] [place] [address] Protein [Mass/Vol] 7.6 g/dL Normal 6.0-8.0 [facility] Comment on above: Performed By: #### C МАРИЯ, TSHR #### [facility] ([id number]) [address] [place] [address] #### [id number] #### [facility] ([id number]) [address], [address] [place] [address] Sodium [Moles/Vol] 135 mmol/L Normal 134-146 [facility] [facility] Comment on above: Performed By: #### C МАРИЯ, TSHR #### [facility] ([id number]) [address] [place] [address] 24640 #### 90288-4 #### [facility] ([id number]) [address], [address] [place] [address] Urea nitrogen [Mass/Vol] 24 mg/dL Normal 5-27 [facility] Comment on above: Performed By: #### C МАРИЯ, TSHR #### [facility] ([id number]) [address] [place] [address] 17604 #### 43913-2 #### [facility] ([id number]) [address], [address] [place] [address] Lipid 1996 panelon 4 Cholesterol [Mass/Vol] 137 mg/dL Low 150-200 [facility] Comment on above: Performed By: #### B MP, CBCA, 60848-1, PINR #### [facility] ([id number]) [address] [place] [address] 83754 Cholesterol in HDL [Mass/Vol] 32 mg/dL Low >39 [facility] Comment on above: Result Comment: HDL <40 mg/dL - High Risk HDL > or = 40mg/dL- Desirable HDL >60 mg/dL - Negative Risk Performed By: #### B MP, CBCA, 30660-0, PINR #### [facility] ([id number]) [address] [place] [address] 94204 Cholesterol in LDL [Mass/Vol] 50 mg/dL Normal <130 [facility] Comment on above: Result Comment: LDL <100 mg/dL - Desirable LDL >160 mg/dL - High Risk Performed By: #### B MP, CBCA, 79214-5, PINR #### [facility] ([id number]) [address] [place] [address] 14740 Cholesterol in VLDL [Mass/Vol] 55 mg/dL High 0-30 [facility] Comment on above: Performed By: #### B MP, CBCA, 58749-5, PINR #### [facility] ([id number]) [address] [place] [address] 41603 CHOLESTEROL:HDL 4.3 Normal 1.0-5.0 [facility] Comment on above: Performed By: #### B MP, CBCA, 13702-3, PINR #### [facility] ([id number]) [address] [place] [address] 08587 Triglyceride [Mass/Vol] 275 mg/dL High 27-150 [facility] Comment on above: Performed By: #### B MP, CBCA, 23099-9, PINR #### [facility] ([id number]) [address] [place] [address] 29591 TSH WITH REFLEXon 05-09-2024 TSH 4.67 uIU/mL Normal 0.49-4.67 [facility] Comment on above: Performed By: #### C MP, TSHR #### [facility] ([id number]) [address] [place] [address] 63526 #### 74868-3 #### [facility] ([id number]) [address] [address], [address] [place] [address] BASIC METABOLIC PANLon 04-16 Anion gap [Moles/Vol] 10 mmol/L Normal 5-15 [facility] Comment on above: Performed By: #### B MP, CBCA, 03676-3, PINR #### [facility] ([id number]) [address] [place] [address] 81369 Calcium [Mass/Vol] 9.3 mg/dL Normal 8.5-10.5 [facility] Comment on above: Performed By: #### B МАРИЯ, CBCA, 79718-6, PINR #### [facility] ([id number]) [address] [place] [address] 75235 Chloride [Moles/Vol] 101 mmol/L Normal 98-109 [facility] Comment on above: Performed By: #### B МАРИЯ, CBCA, 61517-0, PINR #### [facility] ([id number]) [address] [place] [address] 63968 CO2 [Moles/Vol] 27 mmol/L Normal 22-32 [facility] Comment on above: Performed By: #### B MP, CBCA, 62344-4, PINR #### [facility] ([id number]) [address] [place] [address] 30405 Creatinine [Mass/Vol] 1.19 mg/dL Normal 0.70-1.20 [facility] Comment on above: Result Comment: METH OD TRACEABLE TO IDMS STANDARD Performed By: #### B МАРИЯ, CBCA, 92071-1, PINR #### [facility] ([id number]) [address] [place] [address] 83308 GFR/1.73 sq M.predicted among non-blacks MDRD (S/P/Bld) [Vol rate/Area] 66 mL/min/{1.73_m2} Normal >59 [facility] Comment on above: Result Comment: Reported eGFR is based on the CKD-EPI 2020 equation that does not use a race coefficient. Performed By: #### B MP, CBCA, 69338-6, PINR #### [facility] ([id number]) [address] [place] [address] 13557 Glucose [Mass/Vol] 165 mg/dL High 65-99 [facility] Comment on above: Performed By: #### B MP, CBCA, 94129-8, PINR #### [facility] ([id number]) [address] [place] [address] 18182 Potassium [Moles/Vol] 4.2 mmol/L Normal 3.5-5.0 [facility] Comment on above: Performed By: #### B MP, CBCA, 88010-6, PINR #### [facility] ([id number]) [address] [place] [address] 26485 Sodium [Moles/Vol] 138 mmol/L Normal 134-146 [facility] Comment on above: Performed By: #### B MP, CBCA, 97287-9, PINR #### [facility] ([id number]) [address] [place] [address] 10336 Urea nitrogen [Mass/Vol] 17 mg/dL Normal 5-27 [facility] Comment on above: Performed By: #### B MP, CBCA, 95521-4, PINR #### [facility] ([id number]) [address] [place] [address] 88348 CBC AND AUTO DIFFon 10-15-20 24 ABSOLUTE BASOPHIL 0.0 X10E9/L Normal 0.0-0.2 [facility] Comment on above: Performed By: #### B MP, CBCA, 28684-4, PINR #### [facility] ([id number]) [address] [place] [address] 46587 ABSOLUTE NEUTROPHIL 4.0 X10E9/L Normal 1.5-6.6 [facility] Comment on above: Performed By: #### B MP, CBCA, 65238-0, PINR #### [facility] ([id number]) [address] [place] [address] 34288 Basophils/100 WBC (Bld) 0.5 % Normal [facility] Comment on above: Performed By: #### B MP, CBCA, 63869-0, PINR #### [facility] ([id number]) [address] [place] [address] 51364 Eosinophils (Bld) [#/Vol] 0.0 10*3/uL Normal 0.0-0.4 [facility] Comment on above: Performed By: #### B MP, CBCA, 98023-9, PINR #### [facility] ([id number]) [address] [place] [address] 04994 Eosinophils/100 WBC (Bld) 0.4 % Normal [facility] Comment on above: Performed By: #### B MP, CBCA, 87338-8, PINR #### [facility] ([id number]) [address] [place] [address] 82990 Erythrocyte distribution width (RBC) [Ratio] 15.7 % High 11.5-15.0 [facility] Comment on above: Performed By: #### B MP, CBCA, 72326-8, PINR #### [facility] ([id number]) [address] [place] [address] 67286 Hematocrit (Bld) [Volume fraction] 39.9 % Normal 39-49 [facility] Comment on above: Performed By: #### B MP, CBCA, 25913-6, PINR #### [facility] ([id number]) [address] [place] [address] 96493 Hemoglobin (Bld) [Mass/Vol] 13.1 g/dL Normal 13.0-17.0 [facility] Comment on above: Performed By: #### B MP, CBCA, 95834-5, PINR #### [facility] ([id number]) [address] [place] [address] 20635 Lymphocytes (Bld) [#/Vol] 1.1 10*3/uL Normal 1.0-3.5 [facility] Comment on above: Performed By: #### B MP, CBCA, 38837-4, PINR #### [facility] ([id number]) [address] [place] [address] 45484 Lymphocytes/100 WBC (Bld) 18.2 % Normal [facility] Comment on above: Performed By: #### B MP, CBCA, 13906-8, PINR #### [facility] ([id number]) [address] [place] [address] 87517 MCH (RBC) [Entitic mass] 30.6 pg Normal 27-34 [facility] Comment on above: Performed By: #### B MP, CBCA, 17657-1, PINR #### [facility] ([id number]) [address] [place] [address] [place] [address] MCHC (RBC) [Mass/Vol] 32.8 g/dL Normal 32-36 [facility] Comment on above: Performed By: #### B MP, CBCA, 91116-9, PINR #### [facility] ([id number]) [address] [place] [address] 50924 MCV (RBC) [Entitic vol] 93 fL Normal 80-100 [facility] Comment on above: Performed By: #### B MP, CBCA, 83749-7, PINR #### [facility] ([id number]) [address] [place] [address] 87869 Monocytes (Bld) [#/Vol] 0.8 10*3/uL Normal 0-0.9 [facility] Comment on above: Performed By: #### B MP, CBCA, 79040-9, PINR #### [facility] ([id number]) [address] [place] [address] 14628 Monocytes/100 WBC (Bld) 13.5 % Normal [facility] Comment on above: Performed By: #### B MP, CBCA, 98008-1, PINR #### [facility] ([id number]) [address] [place] [address] 15493 Neutrophils/100 WBC (Bld) 67.4 % Normal [facility] Comment on above: Performed By: #### B MP, CBCA, 33656-6, PINR #### [facility] ([id number]) [address] [place] [address] 95966 Platelet mean volume (Bld) [Entitic vol] 7.4 fL Normal 7-12 [facility] Comment on above: Performed By: #### B MP, CBCA, 00575-6, PINR #### [facility] ([id number]) [address] [place] [address] 78924 Platelets (Bld) [#/Vol] 284 10*3/uL Normal 150-450 [facility] Comment on above: Performed By: #### B MP, CBCA, 16418-1, PINR #### [facility] ([id number]) [address] [place] [address] 42770 RBC COUNT 4.27 X10E12/L Normal 4.10-5.70 [facility] Comment on above: Performed By: #### B MP, CBCA, 93573-6, PINR #### [facility] ([id number]) [address] [place] [address] WBC (Bld) [#/Vol] 5.9 10*3/uL Normal 4.0-11.0 [facility] Comment on above: Performed By: #### B MP, CBCA, 95951-8, PINR #### [facility] ([id number]) [address] [place] [address] [address]RAIN WO CONTon CT BRAIN WO [...] on 04/16/2024 2:16 PM Normal [facility] CT CERVICAL SPINE WO CONTon 04-16-2024 CT [...] on 04/16/2024 2:24 PM Normal [facility] CT FACIAL BONES WO CONTon CT FACIAL [...] on 04/16/2024 2:30 PM Normal [facility] PROTIME AND INRon 04-16-2024 INR Coag (PPP) [Relative time] 2.1 {INR} High 0.8-1.1 [facility] Comment on above: Performed By: #### B MARTHA HSIEH, 16689-5, PINR #### [facility] ([id number]) [address] [place] [address] 26551 PT Coag (PPP) [Time] 23.7 s High 9.8-13.2 [facility] Comment on above: Result Comment: NEW REFERENCE RANGE Performed By: #### B МАРИЯ CBCA, 71745-5, PINR #### [facility] ([id number]) [address] [place] [address] 52957 aPTT Coag (PPP) [Time]on aPTT Coag (Bld) [Time] 48 s High 26-37 [facility] Comment on above: Result Comment: NEW REFERENCE RANGE Performed By: #### B [facility], 99541-4, PINR #### [facility] ([id number]) [address] [place] [address], [place] [address] MR LUMBAR SPINE WO CONTon MR LUMBAR [...] on 04/01/2024 10:47 PM Normal [facility] Vital Signs Date Time Vital Sign Value Performing Clinician Facility 01-09-2025 13:25-0400 Body height 175.3 cm Edilson Guzman DPM Work Phone: [facility] 01-09-2025 13:25-0400 Body mass index (BMI) [Ratio] 26.58 kg/m2 Edilson Guzman DPM Work Phone: [facility] 01-09-2025 13:25-0400 Body weight 81.65 kg Edilsonsb Guzman DPM Work Phone: [facility] 10-10-2024 10:53-0400 Body height 175.3 cm Gretta Whitlock MD Work Phone: [facility] 10-10-2024 10:53-0400 Body mass index (BMI) [Ratio] 26.58 kg/m2 Gretta Whitlock MD Work Phone: [facility] 10-10-2024 10:53-0400 Body weight 81.65 kg Gretta Whitlock MD Work Phone: [facility] 10-10-2024 10:53-0400 Diastolic blood pressure 72 mm[Hg] Gretta Whitlock MD Work Phone: [facility] 10-10-2024 10:53-0400 Heart rate 59 /min Gretta Whitlock MD Work Phone: [facility] 10-10-2024 10:53-0400 SaO2% (BldA) [Mass fraction] 99 % Gretta Whitlock MD Work Phone: [facility] 10-10-2024 10:53-0400 Systolic blood pressure 126 mm[Hg] Gretta Whitlock MD Work Phone: [facility] 10-04-2024 11:29-0400 Body height 175.3 cm Edilson Megan DPM Work Phone: [facility] 10-04-2024 11:29-0400 Body mass index (BMI) [Ratio] 26.58 kg/m2 Edilson Guzman DPM Work Phone: [facility] 10-04-2024 11:29-0400 Body temperature 97.7 [degF] Edilson Guzman DPM Work Phone: [facility] 10-04-2024 11:29-0400 Body weight 81.65 kg Edilson Megan DPM Work Phone: [facility] 10-02-2024 13:11-0400 Body height 175.3 cm Bebeto Beard PA Work Phone: [facility] 10-02-2024 13:11-0400 Body mass index (BMI) [Ratio] 26.58 kg/m2 Beebto Beard PA Work Phone: [facility] 10-02-2024 13:11-0400 Body weight 81.65 kg Bebeto Beard PA Work Phone: [facility] 09-26-2024 09:37-0400 Body height 175.3 cm Gretta Whitlock MD Work Phone: [facility] 09-26-2024 09:37-0400 Body mass index (BMI) [Ratio] 26.58 kg/m2 Gretta Whitlock MD Work Phone: [facility] 09-26-2024 09:37-0400 Body temperature 97.7 [degF] Gretta Whitlock MD Work Phone: [facility] 09-26-2024 09:37-0400 Body weight 81.65 kg Gretta Whitlock MD Work Phone: [facility] 09-26-2024 09:37-0400 Diastolic blood pressure 80 mm[Hg] Gretta Whitlock MD Work Phone: [facility] [employer] [facility] 09-26-2024 09:37-0400 Heart rate 60 /min Gretta Whitlock MD Work Phone: [facility] 09-26-2024 09:37-0400 SaO2% (BldA) [Mass fraction] 98 % Gretta Whitlock MD Work Phone: [facility] [employer] [facility] 09-26-2024 09:37-0400 Systolic blood pressure 130 mm[Hg] Gretta Whitlock MD Work Phone: [facility] [employer] [facility] 09-04-2024 12:58-0500 Body height 175.3 cm Vandanabebe Valdovinosley COLOR TESTER-MOLECULAR BIOLOGIST Work Phone: [facility] 09-04-2024 12:58-0500 Body mass index (BMI) [Ratio] 27.02 kg/m2 Vandana Brar COLOR TESTER-MOLECULAR BIOLOGIST Work Phone: [facility] [employer] [facility] 09-04-2024 12:58-0500 Body weight 83.01 kg Vandanabebe Valdovinosley COLOR TESTER-MOLECULAR BIOLOGIST Work Phone: [facility] [employer] [facility] 09-04-2024 12:58-0500 Diastolic blood pressure 72 mm[Hg] Vandana Brar COLOR TESTER-MOLECULAR BIOLOGIST Work Phone: [facility] [employer] [facility] 09-04-2024 12:58-0500 Heart rate 54 /min Vandana Brar COLOR TESTER-MOLECULAR BIOLOGIST Work Phone: [facility] [employer] [facility] 09-04-2024 12:58-0500 SaO2% (BldA) [Mass fraction] 97 % Vandana Brar COLOR TESTER-MOLECULAR BIOLOGIST Work Phone: [facility] [employer] [facility] 09-04-2024 12:58-0500 Systolic blood pressure 120 mm[Hg] Vandana Brar COLOR TESTER-MOLECULAR BIOLOGIST Work Phone: [facility] 05-23-2024 11:55-0500 Diastolic blood pressure 73 mm[Hg] Bebeto LEON Work Phone: [facility] [employer] [facility] 05-23-2024 11:55-0500 Heart rate 71 /min Bebeto Nienberg PA [facility] 05-23-2024 11:55-0500 Respiratory rate 20 /min Bebeto Nienberg PA Work Phone: [facility] [employer] 05-23-2024 11:55-0500 SaO2% (BldA) [Mass fraction] 100 % Bebeto Nienberg PA [facility] 05-23-2024 11:55-0500 Systolic blood pressure 145 mm[Hg] Bebeto Nienberg PA Work Phone: [facility] 04-09-2024 10:12-0400 Body height 175.3 cm Bebeto Nienberg PA [facility] Phone: [facility] Comment on above: stated 04-09-2024 10:12-0400 Body mass index (BMI) [Ratio] 27.62 kg/m2 Bebeto Nienberg PA Work [facility]: [facility] 04-09-2024 10:12-0400 Body weight 84.82 kg Bebeto Nienberg PA Work Phone[facility] 04-09-2024 10:12-0400 Diastolic blood pressure 97 mm[Hg] Bebeto Nienberg PA [facility] 04-09-2024 10:12-0400 Heart rate 63 /min Bebeto Nienberg PA [facility] 04-09-2024 10:12-0400 Respiratory rate 16 /min Bebeto Nienberg PA Work Phone[facility] 04-09-2024 10:12-0400 SaO2% (BldA) [Mass fraction] 100 % Bebeto Nienberg PA Work Phone: [facility] 04-09-2024 10:12-0400 Systolic blood pressure 141 mm[Hg] Bebeto Nienberg PA Work Phone: [facility] 02-22-2024 13:29-0400 Body height 175.3 cm Bebeto Nienberg PA Work Phone: [facility] [employer] [facility] 02-22-2024 13:29-0400 Body mass index (BMI) [Ratio] 26.73 kg/m2 Bebeto Nienberg PA Work Phone: [facility] [employer] [facility] 02-22-2024 13:29-0400 Body weight 82.1 kg Bebeto Nienberg PA Work Phone: [facility] [employer] [facility] 02-22-2024 13:29-0400 Diastolic blood pressure 79 mm[Hg] Bebeto Nienberg PA Work Phone: [facility] [employer] [facility] 02-22-2024 13:29-0400 Heart rate 65 /min Bebeto Nienberg PA Work Phone: [facility] [employer] [facility] 02-22-2024 13:29-0400 SaO2% (BldA) [Mass fraction] 99 % Bebeto Nienberg PA Work Phone: [facility] [employer] [facility] 02-22-2024 13:29-0400 Systolic blood pressure 115 mm[Hg] Bebeto Nienberg PA Work Phone: [facility] [employer] [facility] 01-09-2024 12:23-0400 Body height 175.3 cm Bebeto Nienberg PA Work Phone: [facility] [employer] [facility] 01-09-2024 12:23-0400 Body mass index (BMI) [Ratio] 27.02 kg/m2 Bebeto Nienberg PA Work Phone: [facility] [employer] [facility] 01-09-2024 12:23-0400 Body weight 83.01 kg Bebeto Nienberg PA Work Phone: [facility] [employer] [facility] 01-09-2024 12:23-0400 Diastolic blood pressure 84 mm[Hg] Bebeto Nienberg PA Work Phone: [facility] [employer] [facility] 01-09-2024 12:23-0400 Heart rate 65 /min Bebeto Nienberg PA Work Phone: [facility] [employer] [facility] 01-09-2024 12:23-0400 Respiratory rate 16 /min Bebeto LEON Work Phone: [facility] 01-09-2024 12:23-0400 SaO2% (BldA) [Mass fraction] 98 % Bebeto LEON Work Phone: [facility] 01-09-2024 12:23-0400 Systolic blood pressure 142 mm[Hg] Bebeto LEON Work Phone: [facility] Encounters Encounter Date Encounter Type Care Provider Facility Start: 02-13-2025 ambulatory [facility] Start: 01-09-2025 End: 01-09-2025 Bamboo flowsheet Edilson Guzman DPM Work Phone: [facility] Start: 01-09-2025 End: 01-09-2025 Bamboo flowsheet Edilson Guzman DPM Work Phone: [facility] Start: 01-09-2025 End: 01-09-2025 Patient encounter procedure Edilson Guzman DPM Work Phone: [facility] Comment on above: Dermatophytosis of n ail (Primary Dx); Dystrophic nail; Status post partial amputation of left foot (HCC); Angiopathy, diabetic (HCC); Diabetic polyneuropathy associated with type 2 diabetes mellitus (HCC) Start: 01-09-2025 End: 01-09-2025 ambulatory EDILSON GUZMAN Not Available Start: 01-01-2025 End: 01-01-2025 ambulatory [facility] Start: 12-19-2024 End: 12-19-2024 Refill Bebeto Espino COLOR TESTER-MOLECULAR BIOLOGIST Work Phone: [facility] Comment on above: Med Refill Start: 11-14-2024 End: 11-14-2024 Emergency department [facility] Start: 11-12-2024 End: 11-12-2024 ambulatory [facility] Work Phone: Start: 11-12-2024 End: 11-12-2024 Departed Referred Mariana Gutiérrez DPM Work Phone: [facility] Start: 11-04-2024 End: 11-04-2024 ambulatory [facility] Start: 11-04-2024 End: 11-04-2024 ambulatory [facility] Start: 11-04-2024 Encounter for other preprocedural examination [facility] Start: 10-15-2024 End: 10-21-2024 Telephone encounter Phylicia Torres LPN [facility] Comment on above: Surgical Or Dental C learance Start: 10-10-2024 End: 10-10-2024 Office outpatient visit 15 minutes Gretta Whitlock MD Work Phone: [facility] Comment on above: 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 ([facility]) (Primary Dx) Start: 10-10-2024 End: 10-10-2024 [facility] Start: 10-04-2024 End: 10-04-2024 Bamboo flowsrima Guzman DPM Work Phone: [facility] Start: 10-04-2024 End: 10-04-2024 Bamboo flowsrima Guzman DPM Work Phone: [facility] Start: 10-04-2024 End: 10-04-2024 Office outpatient new 45 minutes Edilson Guzman DPM Work Phone: [facility] Comment on above: Paronychia of great toe of right foot (Primary Dx); Angiopathy, diabetic (CMS/HCC); Diabetic polyneuropathy associated with type 2 diabetes mellitus (CMS/HCC); Status post partial amputation of left foot (CMS/HCC) Start: 10-04-2024 End: 10-04-2024 ambulatory EDILSON GUZMAN Not Available Start: 10-02-2024 End: 10-02-2024 Bamboo flowsheet Bebeto J Beard PA Work Phone: [facility] Start: 10-02-2024 End: 10-02-2024 Bamboo flowsheet Bebeto LEON Work Phone: [facility] Start: 10-02-2024 End: 10-02-2024 ambulatory BEBETO BEARD Not Available Start: 10-02-2024 End: 10-02-2024 Office outpatient new 45 minutes Bebeto LEON Work Phone: [facility] Comment on above: Acute pain of right knee (Primary Dx); Arthritis of right knee; Effusion of right knee Start: 09-27-2024 End: 09-27-2024 ambulatory [facility] Start: 09-26-2024 End: 09-26-2024 Office outpatient new 45 minutes Gretta Whitlock MD Work Phone: [facility] Comment on above: 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 ([facility]) (Primary Dx); PVD (peripheral vascular disease) ([facility]) Start: 09-26-2024 End: 09-26-2024 ambulatory [facility] Start: 09-23-2024 End: 09-23-2024 ambulatory [facility] Start: 09-13-2024 End: 09-13-2024 Emergency department patient visit [facility] Start: 09-04-2024 End: 09-04-2024 Office outpatient visit 15 minutes Vandana Brar COLOR TESTER-MOLECULAR BIOLOGIST Work Phone: [facility] Comment on above: Ventricular tachycar gaye ([facility]) (Primary Dx); AICD present, double chamber; Encounter for monitoring amiodarone therapy; Paroxysmal atrial fibrillation ([facility]); Typical atrial flutter ([facility]); V-tach ([facility]); Essential hypertension Start: 09-04-2024 End: 09-04-2024 Clinical Support [facility] Comment on above: AICD present, double chamber- [employer] (Primary Dx) Start: 09-03-2024 End: 09-03-2024 Telephone encounter Marisela Mcguire CMA [facility] Start: 07-22-2024 End: 07-22-2024 [facility] Start: 07-12-2024 End: 07-22-2024 Refill Liliana Rivera COLOR TESTER-MOLECULAR BIOLOGIST Work Phone: [facility] Comment on above: Med Change Request Start: 05-23-2024 End: 05-23-2024 Refill Bebeto Espino COLOR TESTER-MOLECULAR BIOLOGIST Work Phone: [facility] Comment on above: Med Refill Start: 05-23-2024 End: 05-23-2024 Office outpatient visit 15 minutes Bebeto LEON Work Phone: [facility] Comment on above: Lumbosacral 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 (Primary Dx) Start: 05-23-2024 End: 05-23-2024 ambulatory [facility] Start: 05-09-2024 End: 05-09-2024 ambulatory IZZY SAM [facility] Start: 05-03-2024 End: 05-03-2024 ambulatory ALBER Valera [facility] Start: 04-16-2024 End: 04-16-2024 Emergency department patient visit [facility] Start: 04-09-2024 End: 04-09-2024 Office outpatient visit 25 minutes Bebeto LEON Work Phone: [facility] Comment on above: Lumbosacral 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 (Primary Dx) Start: 04-09-2024 End: 04-09-2024 ambulatory [facility] Start: 04-01-2024 End: 04-01-2024 ambulatory [facility] Start: 02-22-2024 End: 02-22-2024 Office outpatient visit 25 minutes Bebeto LEON Work Phone: [facility] Comment on above: Lumbosacral 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 (Primary Dx); Disc displacement, lumbar; Lumbar radiculopathy, chronic Start: 02-22-2024 End: 02-22-2024 ambulatory BEBETO ROMANO [facility] Start: 02-21-2024 End: 02-21-2024 Refill Marsha Godinezmedardofran COLOR TESTER-MOLECULAR BIOLOGIST Work Phone: [facility] Comment on above: Med Refill Start: 01-17-2024 End: 01-17-2024 Telephone encounter Di London CNA [facility] Start: 01-11-2024 End: 01-11-2024 Telephone encounter Mariana Reyez RN [facility] Start: 01-09-2024 End: 01-09-2024 Office outpatient new 30 minutes Bebeto LEON Work Phone: [facility] Comment on above: Lumbar spondylolysis (Primary Dx) Start: 11-14-2022 End: 11-15-2022 ambulatory MARIANA Liu [facility] Facility:H1 Start: 10-24-2022 End: 10-25-2022 ambulatory MARIANA Liu [facility] Facility:H1 Start: 10-03-2022 End: 10-04-2022 ambulatory MARIANA Liu [facility] Facility:H1 Start: 09-12-2022 End: 09-13-2022 ambulatory CHET FOURNIER Facility:H1 Start: 08-23-2022 End: 08-24-2022 ambulatory MARIANA Liu [facility] Facility:H1 Start: 08-16-2022 End: 08-17-2022 ambulatory [facility] Alexa [facility] Facility:H1 Start: 08-09-2022 End: 08-10-2022 ambulatory MARIANA Liu [facility] Facility:H1 Procedures Date Procedure Procedure Detail Performing Clinician Start: 10-02-2024 Arthrocentesis aspir &/inj major jt/bursa w/o us Bebeto LEON Work Phone: Start: 09-04-2024 Ecg routine ecg w/le ast 12 lds w/i&r Vandana Brar COLOR TESTER-MOLECULAR BIOLOGIST Work Phone: Start: 09-04-2024 Follow-up visit Follow-up VANDANA RBAR Start: 04-06-2023 Microalbumin [Mass/v olume] in Urine by Test strip Bebeto LEON Work Phone: Plan of Treatment Date Care Activity Detail Author Start: 11-14-2025 Tobacco Screening Tobacco Screening [facility] Start: 11-04-2025 Adult BMI Screening Adult BMI Screen ing [facility] Start: 10-10-2025 Adult BMI Screening Adult BMI Screen ing [facility] Start: 10-10-2025 Tobacco Screening Tobacco Screening [facility] Start: 09-27-2025 Adult BMI Screening Adult BMI Screen ing [facility] Start: 09-27-2025 Tobacco Screening Tobacco Screening [facility] Start: 09-13-2025 Adult BMI Screening Adult BMI Screen ing [facility] Start: 09-13-2025 Tobacco Screening Tobacco Screening [facility] Start: 09-04-2025 Adult BMI Screening Adult BMI Screen ing [facility] Start: 09-04-2025 Tobacco Screening Tobacco Screening [facility] Start: 05-23-2025 Tobacco Screening Tobacco Screening [facility] Start: 04-16-2025 Adult BMI Screening Adult BMI Screen ing [facility] Start: 04-14-2025 End: 04-14-2025 Patient encounter procedure 04/14/2025 1:15 PM EDT Procedure Visit [facility] [address] [place] [phone] Edilson Guzman DPM [address] [place] [address] [facility] Start: 04-09-2025 Adult BMI Screening Adult BMI Screen ing [facility] Start: 04-09-2025 Tobacco Screening Tobacco Screening [facility] Start: 03-03-2025 Influenza vaccination [facility] Start: 02-21-2025 Adult BMI Screening Adult BMI Screen ing [facility] Start: 02-21-2025 Tobacco Screening Tobacco Screening [facility] Start: 01-09-2025 End: 01-09-2025 Patient encounter procedure [facility] Comment on above: Arrived Start: 01-08-2025 Adult BMI Screening Adult BMI Screen ing [facility] Start: 01-08-2025 Tobacco Screening Tobacco Screening [facility] Start: 11-04-2024 End: 11-04-2024 Patient encounter procedure [facility] Start: 10-04-2024 End: 10-04-2024 Patient encounter procedure [facility] Comment on above: Arrived Start: 09-26-2024 End: 09-26-2024 Patient encounter procedure 09/26/2024 9:40 AM EDT [facility] [address] [place] [phone] Gretta Whitlock MD [address], [address] [address] [facility] Danielle [facility] Start: 09-16-2024 End: 09-16-2024 Patient encounter procedure 09/16/2024 11:00 AM EDT Appointment [facility] [address] [place] [address] Vandana Brar, COLOR TESTER-MOLECULAR BIOLOGIST [address] [place] [address] [facility] Start: 09-04-2024 End: 09-04-2024 Patient encounter procedure 09/04/2024 2:30 PM EST Office Visit [facility] [address] [place] [address] Vandana Brar, COLOR TESTER-MOLECULAR BIOLOGIST [address] [place] [address] [facility] Start: 09-04-2024 End: 09-04-2024 Clinical Support 09/04/2024 1:15 PM EST Clinical Support [facility] [address] [address] [facility] Start: 07-24-2024 End: 07-24-2024 Clinical Support [facility] Start: 07-04-2024 End: 07-04-2024 Patient encounter procedure 07/04/2024 10:00 AM EST Office Visit [facility] [address] [place] [phone] Bebeto Romano PA [address] [place], [place] [phone] [facility] Start: 05-23-2024 End: 05-23-2024 Patient encounter procedure 05/23/2024 12:45 PM EST Office Visit [facility] [address] [phone] Bebeto Romano, PA [address], [address] [place] [phone] [facility] Start: 05-03-2024 End: 05-03-2024 Admission to same day surgery center 05/03/2024 8:58 AM EDT - 05/03/2024 9:06 AM EDT Surgery [facility] [address] [place] [phone] Alber Hyde MD [address] [place], [place] [phone] INJECTION BLOCK NERVE MEDIAL BRANCH: bilat L45 51 [11900 (CPT )] [facility] Comment on above: INJECTION BLOCK NERV E MEDIAL BRANCH: bilat L45 51 [23853 (CPT )] Start: 05-03-2024 End: 05-03-2024 Njx dx/ther agt pvrt facet jt lmbr/sac 1 level INJECTION BLOCK NERVE MEDIAL BRANCH Lumbosacral spondylosis without myelopathy 05/03/2024 8:58 AM EDT [facility] Start: 05-03-2024 Subsequent hospital visit by physician 05/03/2024 8:58 AM EDT Hospital Encounter [facility] [address] [place] [address] Alber Hyde MD [address] [place] [address] [facility] Start: 04-06-2024 Urine screening for protein Urine Microalbumin [facility] Start: 04-04-2024 End: 04-04-2024 Patient encounter procedure 04/04/2024 1:15 PM EDT Appointment [facility] [address] [phone] Bebeto Romano PA [address] [place], [place] [phone] [facility] Start: 03-03-2024 COVID-19 Vaccine ( season) COVID-19 Vaccine ( season) [facility] Start: 03-03-2024 COVID-19 Vaccine ( season) COVID-19 Vaccine ( season) [facility] Start: 03-03-2024 Influenza vaccination Influenza Vacc ine [facility] Start: 02-22-2024 End: 02-22-2024 Patient encounter procedure 02/22/2024 2:45 PM EDT Office Visit [facility] [address] [place] [phone] Bebeto Romano PA [address] [place] [address] [facility] Start: 04-25-2023 Pneumococcal Vaccine : 65+ Years (2 of 2 - PCV) Pneumococcal Vaccine: 65+ Years (2 of 2 - PCV) [facility] Start: 03-03-2023 COVID-19 Vaccine ( season) COVID-19 Vaccine ( season) [facility] Start: 2019 Abdominal aortic aneurysm screening Abdominal Aortic Aneurysm (AAA) Screen [facility] Start: 2019 Fall Risk Screening Fall Risk Screen ing [facility] Start: 2004 Administration of varicella zoster vaccine Zoster (Shingles) Vaccine (1 of 2) [facility] Start: 1973 DTaP,Tdap and Td Vaccines (1 - Tdap) DTaP,Tdap and Td Vaccines (1 - Tdap) [facility] Start: 1972 Adult BMI Follow Up Plan Adult BMI F ollow Up Plan [facility] Start: 1972 Diabetic foot examination Diabetic Foot Exam [facility] Start: 1966 Depression Screening Depression Scre ening [facility] Start: 1954 Glaucoma screening Diabetic Op hthalmology Exam [facility] Start: 1954 Medicare Annual Well ness Visit Medicare Annual Wellness Visit [facility] Start: 1954 Screening for malign ant neoplasm of colon [facility] End: 02-21-2025 MR Lumbar spine WO contrast MR lumbar spine without contrast Imaging Routine Lumbar radiculopathy, chronic 1 Occurrences starting 02/22/2024 until 02/21/2025 [facility] Work Phone: Comment on above: 1 Occurrences [...] therapy 1 Occurrences starting 09/04/2024 until 09/04/2025 [employer] Work Phone: Comment on above: 1 Occurrences starti ng 09/04/2024 until 09/04/2025 Immunizations Immunization Date Immunization Notes Care Provider Fa [facility] 04-11-2023 influenza virus vaccine, unspecified formulation [facility]ebeto LEON [facility] 04-19-2021 influenza, injectabl e, quadrivalent, preservative free Bebeto LEON Work Phone: [facility] 05-18-2018 Influenza, injectabl e, Madin Kristina Canine Kidney, preservative free, quadrivalent Bebeto LEON Work Phone: [facility] 05-10-2017 influenza, seasonal, injectable, preservative free Bebeto LEON Work Phone: [facility] 03-25-2015 influenza, seasonal, injectable, preservative free Bebeto LEON [facility] Phone: [facility] 04-15-2014 influenza, seasonal, injectable Bebeto LEON Work Phone: [facility] [employer] Payers Date Payer Category Payer Self-pay 2016 Medicaid [id number] 5.315 1992 Medicare [id number] 2.315 1959 Medicaid [id number] 1959 Medicare [id number] 1954 Unknown [id number] 2.16.84 0.1.265805.3.579.2.593 1954 Unknown [id number] 2.16.84 0.1.578251.3.579.2.593 1954 Unknown [id number] 2.16.84 0.1.475965.3.579.2.593 1954 Unknown [id number] 2.16.84 0.1.313488.3.579.2.593 1954 Unknown [id number] 2.16.84 0.1.611660.3.579.2.593 1954 Unknown [id number] 2.16.84 0.1.921781.3.579.2.593 1954 Unknown [id number] 2.16.84 0.1.489489.3.579.2.593 1954 Unknown [id number] 2.16.840.1.796755.3.579.2.1286 1954 Unknown [id number] 2.16.840.1.099079.3.579.2.1286 1954 Unknown [id number] 2.16.840.1.575858.3.579.2.1286 1954 Unknown [id number] 2.16.8 40.1.118990.3.579.2.1259 1954 Unknown [id number] 2.16.84 0.1.482479.3.579.2.1259 1954 Unknown [id number] 2.16.84 0.1.929439.3.579.2.1259 1954 Unknown [id number] 2.16.840.1.384629.3.579.2.1286 1954 Unknown [id number] 2.16.840.1.082716.3.579.2.1286 1954 Unknown [id number] 2.16.840.1.296466.3.579.2.1286 1954 Unknown [id number] 2.16.840.1.768864.3.579.2.1286 1954 Unknown [id number] 2.16.840.1.666686.3.579.2.1286 1954 Unknown [id number] 2.16.840.1.960093.3.579.2.1285 1954 Unknown [id number] 2.16.840.1.059778.3.579.2.1285 1954 Unknown [id number] 2.16.840.1.797870.3.579.2.1285 1954 Unknown [id number] 2.16.840.1.088679.3.579.2.1285 1954 Unknown [id number] 2.16.840.1.716226.3.579.2.1285 1954 Unknown [id number] 2.16.840.1.273645.3.579.2.1285 1954 Unknown [id number] 2.16.840.1.549045.3.579.2.1285 1954 Unknown [id number] 2.16.8 40.1.768065.3.579.2.1285 1954 Unknown [id number] 2.16.8 40.1.400997.3.579.2.1285 1954 Unknown [id number] 2.16.8 40.1.012511.3.579.2.1285 1954 Unknown [id number] 2.16.8 40.1.946254.3.579.2.1285 1954 Unknown [id number] 2.16.8 40.1.334440.3.579.2.1285 1954 Unknown [id number] 2.16.8 40.1.314192.3.579.2.1285 1954 Unknown [id number] 2.16.8 40.1.160050.3.579.2.1285 1954 Unknown [id number] 2.16.8 40.1.175350.3.579.2.1286 Medicare Medicare Nonpatient [id number] Unknown [id number] 2.16.8 40.1.357001.3.579.2.531 Social History Date Type Detail Facility Start: 01-09-2024 End: 01-09-2025 Tobacco smoking status ARIS Ex-smoker [facility] History of tobacco use Current smoker [facility] History of tobacco use Cigarette Smoker [facility] Start: 01-09-2024 End: 01-09-2025 Tobacco use and exposure Smokeless tobacco non-user [facility] Start: 05-23-2024 End: 11-14-2024 Alcoholic beverage intake Current non-drinker of alcohol (finding) [facility] Start: 05-23-2024 End: 01-09-2025 History of Social function [facility] Start: 05-23-2024 End: 01-09-2025 Tobacco use panel [facility] Childcare Unknown [facility] Start: 1955 Sex assigned at Not on file [facility] Start: 02-05-2015 End: 11-14-2024 Sex Male (finding) [facility] Tobacco smoking stat [facility] Tobacco smoking consumption unknown [facility] Start: 10-02-2024 End: 01-09-2025 Alcoholic beverage intake Ex-drinker (finding) [facility] Start: 1955 Sex Assigned At Male [facility] Medical Equipment Procedure Code Equipment Code Equipment Origin al Text Equipment Identifier Dates Ld Pcng 55cm Rv Sq Scr S Df-4 - [id number] - [id number] Start: 11-20-2018 Lead Capsure Fix Novus 5076-45 - [id number] - [id number] Start: 11-20-2018 Lead Capsure Fix Novus 5076-52 - [id number] - [id number] Start: 07-21-[address] - [id number] - [id number] Start: 11-20-2018 s Crd Rvl Linq Rpl [id number] - [id number] - [id number] Start: 11-16-2018 Start: 01-20-2018 Goals Date [...] to a SNF Clinical Notes 08-09-2022 to 01-09-2025 Edilson Guzman DPM - 01/09/2025 1:30 PM EDTPatient InstructionsTelephone Encounter - Mariana Interiano RN - 12/19/2024 10:52 AM EDTTelephone Encounter - Mariana Interiano RN - 12/19/2024 10:52 AM EDT Note Date & Type Note Facility 01-09-2025 History of Present illness Narrative Images from the original note were not included. Subjective Patient ID: Radha Frausto is a 69 y.o. male who presents for DM Foot Care (Established patient presents today for routine diabetic nail care. Patient would like to start the process for diabetic shoes, which they state will require toe filler insert. Patient has some wounds on BL feet/ankle, patient has HH come and care for these. Patient recently had amputation of the right hallux and left 2nd digit in october. PCP: Dr. Carlee MONTESINOS 09/30/24, A1C: 8.7, BS: 132). HPI Presents today for nail care for the at risk diabetic patient. Chronic toenail deformity of multiple years duration. Reports no associated discomfort, acknowledging diabetic neuropathy. Self care measures are difficult, ineffective and not practical; increasing risk exposure. Family members unable to provide effective care. Patient is status post TMA left foot (October 2024, Dr. Gutiérrez). Risk profile: Type II diabetes. Diabetic peripheral [...] tamsulosin (Flomax) 0.4 MG 24 hr capsule, , Disp: , Rfl: Xarelto 20 MG tablet, Take 20 mg by mouth Daily, Disp: , Rfl: Allergies Patient has no known allergies. Past Surgical History Past Surgical History: Procedure Laterality Date FOOT SURGERY Left Toes amputated TOE AMPUTATION Left 11/12/2024 right hallux, 2nd digit VENOUS CATH For blood clots in leg Family History No family history on file. Objective General Examination: GENERAL APPEARANCE: Alert and oriented. Pleasant disposition. Presents by way of wheelchair. Dr. Galeano footwear in place right foot. Accompanied by 2 friends. Date of Last Foot Exam: 01/09/2025 Sensory testing performed: sensations diminished Sensory and [...] each heel. NAIL PATHOLOGY: Right great toe: TDO deformity: Gross toenail dystrophy, hypertrophy, thickening, elongation, clubbing, crumbly texture, subtotal detachment, periungual hyperkeratosis, without drainage. All remaining digits right foot: Toenail dystrophy, elongation, thickening, discoloration, clubbing, subtotal onycholysis, periungual hyperkeratosis, without drainage. MYCOSIS SCALE: Total with debris multiple digits.. INTERDIGITAL MACERATION:clean, dry, non-inflamed. ULCER: No sign of ulceration or open wound. SKIN PATHOLOGY:texture, turgor, hair growth, within normal limits.. Orthopedic: JOINT RANGE OF MOTION: ankle joint and subtalar joint ROM are normal and pain free. DEFORMITIES: Left foot: Status post TMA (October 2024). MUSCLE STRENGTH: Generalized lower extremity weakness with no focal deficits. Radiology: Assessment/Plan Chronic, stable onychodystrophy/mycosis multiple digits right foot. 2. Type II diabetes. 3. Diabetic peripheral neuropathy (Q9). 4. Diabetic peripheral vasculopathy (Q8). 5. Status post TMA left (Q7). 6. History of DVT right lower extremity; currently on Xarelto and ASA therapy. Plan: Conservative and palliative care measures are indicated. We will proceed with therapeutic footwear and custom molded accommodative orthoses when the left foot is effectively healed and out of dressing. Diabetic education and assessment relative to the high-risk condition. Procedure: Toenail debridement: Right foot: Aseptic technique: Hand and power instrumentation: Onychodebridement in length and thickness, with curettage of any cryptotic margins, all periungual debris; providing effective symptom and pressure relief; reducing shoe and digital trauma; reducing potential risks associated with the high-risk diabetic neuropathic and vasculopathic condition, and related complications. This note was created with the assistance of a speech recognition program. While intending to generate a timely document that accurately reflects the content of the visit, no guarantee can be provided that every grammatical or spelling mistake has been or will be identified or corrected. Thank you for your understanding. Edilson Guzman DPM documented in this encounter [facility] 01-09-2025 Instructions Edilson Guzman DPM - 01/09/2025 1:30 PM EDT As noted documented in this encounter [facility] 12-19-2024 Miscellaneous Notes Images from the original note were not included. Last OV 09/04/2024 CMP and CBC 11/14/2024 documented in this encounter [facility] 12-19-2024 Telephone encounter Note Images from the original note were not included. Last OV 09/04/2024 CMP and CBC 11/14/[address] [facility] 10-15-2024 Miscellaneous Notes Surgeon: Dr Gutiérrez Type of surgery: lt transmetatarsal amputation with delayed primary closure of ulceration Date of surgery: pending Surgery location: [facility] [place] Type of anesthesia: general On a blood [...] Thank you Pt scheduled for lexiscan at [facility] 11/04/24 documented in this encounter [facility] 10-15-2024 Telephone encounter Note Surgeon: Dr Gutiérrez Type of surgery: lt transmetatarsal amputation with delayed primary closure of ulceration Date of surgery: pending Surgery location: [facility] [place] Type of anesthesia: general On a blood thinner?: xarelto Indication? At Fib On an antiplatelet?: asa Stent? no Date of last EK09/04/24 Last office visit date and who they saw: AM 09/04/24 Their preference of how long to hold blood thinners/antiplatelet: per cardiology recommendations History of CVA/TIA, DVT/PE? no [facility] 10-15-2024 Telephone encounter Note Can not complete at least 4 Mets of activity 2/2 mobility issues. Will need nuclear stress for cardiac clearance. If nuclear stress normal, can hold aspirin 3-5 days preop and Xarelto 48 hours preop with resumption of both medications as soon as possible postoperative once deemed safe by surgeon. Thank you [facility] 10-15-2024 Telephone encounter Note Pt scheduled for lexiscan at PM 11/04/[address] [facility] 10-10-2024 Evaluation + Plan note Associated Problem(s): Critical limb ischemia of left lower extremity with gangrene (CMS-HCC) PVR. Continue best medical therapy with aspirin and statin. [facility] 10-10-2024 Miscellaneous Notes Associated Problem(s): Critical limb ischemia of left lower extremity with gangrene (CMS-HCC) PVR. Continue best medical therapy with aspirin and statin. documented in this encounter [facility] 10-10-2024 History of Present illness Narrative Images from the original note were not included. To: [facility] HPI: Radha Frausto is a [...] Diagnosis Date Angina pectoris Arrhythmia Atrial fibrillation ([facility]) Atrial flutter ([facility]) Atrial flutter ([facility]-HCC) Benign prostatic hyperplasia BPH with urinary obstruction Cancer (CMS-HCC) skin cancer Cataract Constipation Coronary artery disease Dental disease no teeth Diabetes mellitus (CMS-HCC) Diabetes mellitus type 2, controlled ([facility]) Hypercholesterolemia Hypertension Myositis Peripheral neuropathy Rash Scalp wound Urinary incontinence Ventricular tachycardia ([facility]) Visual impairment glasses Past Surgical History: Past Surgical History: Procedure Laterality Date 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; excision and debridement Left 10/29/2021 Performed by Ambrosio Al MD at [facility] AMPUTATION TOE 4TH & 5TH/WIDE INCISIONAL DEBRIDEMENT LEFT DIABETIC FOOT NECROTIZING FASCITIS Left 08/12/2021 Performed by Ambrosio Al MD at [facility] ANGIO LOWER EXT Left 09/27/2024 Performed by Gretta Whitlock MD at [facility] CARDIAC CATH LABS CARDIAC DEFIBRILLATOR PLACEMENT [employer] CATARACT EXTRACTION Coronary angiogram and left ventricular gram/pressure N/A 11/19/2018 Performed by Sage Jay MD at [facility] CARDIAC CATH LABS Coronary fractional flow reserve N/A 11/19/2018 Performed by Sage aJy MD at [facility] CARDIAC CATH LABS CYSTOSCOPY [facility] SOLUTION N/A 10/27/2021 Performed by Frederic Thorne MD at [facility] DC ICD RA lead replace - MDT N/A 07/21/2020 Performed by Yoni Espinoza MD at [facility] (EP) EP - Device DC ICD Left 11/20/2018 Performed by Shayna Betancourt MD at [facility] (EP) EP - Diagnostic-- EP study Right 11/16/2018 Performed by Rafita Garcia MD at [facility] (EP) INJECTION BLOCK NERVE MEDIAL BRANCH: bilat L 10/05, 10/31 Bilateral 05/03/2024 Performed by Alber Hyde MD at [facility] Loop recorder implant N/A 11/16/2018 Performed by Rafita Garcia MD at [facility] (EP) Loop recorder removal N/A 07/21/2020 Performed by Yoni Espinoza MD at [facility] (EP) Percutaneous angioplasty tibia/per initial vessel left Left 09/27/2024 Performed by Gretta Whitlock MD at [facility] Percutaneous angioplasty tibia/per initial vessel/EACH ADDITIONAL Right 09/27/2024 Performed by Gretta Whitlock MD at [facility] SKIN CANCER EXCISION [...] Interpersonal Safety: Unknown (08/24/2023) Received from [facility] Safety & Environment Fear of Current [...] of left lower extremity with gangrene (CMS-HCC) - Primary Current Assessment & Plan PVR. Continue best medical therapy with aspirin and statin. Radha was seen today for angio 09-27-24. Diagnoses and all orders for this visit: Critical limb ischemia of left lower extremity with gangrene (CMS-HCC) Gretta Whitlock MD, RONNIE, RPVI, FSVS, FACS [facility] This note was created with the assistance of a speech recognition program. While intending to generate a timely document that accurately reflects the content of the visit, no guarantee can be provided that every grammatical or spelling mistake has been or will be identified or corrected. Thank you for your understanding. documented in this encounter [facility] 10-04-2024 History of Present illness Narrative Images from the original note were not included. Subjective Patient ID: Radha Frausto is a 69 y.o. male who presents for Toe Pain (Radha Frausto 69yo New Patient last seen 07/12/2021. Patient is diabetic. Concerns of Right great toenail infection, patient relates drainage, thick and painful. Patient is seeing wound care in [place] for possible partial amputation of left foot, due to non-healing after amputation surgery 3 years ago, in [place]. Currently taking cephalexin for left foot infection. [...] Edilson Guzman DPM documented in this encounter [facility] 10-04-2024 Instructions Edilson Guzman DPM - 10/04/2024 11:30 AM EDT As noted documented in this encounter [facility] 10-02-2024 History of Present illness Narrative Associated Order(s): L Inj/Asp: R knee Post-Procedure Diagnose(s): Arthritis of right knee; Effusion of right knee Images from the original note were not included. NAME: Radha Frausto : 1955 HISTORY OF PRESENT ILLNESS: NEW PT Radha Fruasto is an 69 y.o. @ male. (NEW PT) [facility] REFERRAL. RT KNEE PAIN 09/11/24 (3 WKS), WENT TO [facility] ER 09/13, HAD XR AND GIVEN KNEE IMMOBILIZER. XRAY [facility] 09/13/24 WORE KNEE IMMOBILIZER FOR A COUPLE DAYS. PRESENTS IN WC TODAY. USES WALKER AT HOME. USED WC FOR DISTANCE. PAIN DIFFUSE IN KNEE. DENIES RADIATION. INTERMITTENT PAIN. +TYL. USED ICE ONCE. DENIES N/T. +SWELLING. KNEE POPPED ONCE GOING UP THE STEPS. +GIVING OUT SENSATION. DOES NOT WAKE AT HS. *ON XARELTO PAST MEDICAL HISTORY: Past Medical History: Diagnosis Date Diabetes ([facility]) H/O blood clots PAST SURGICAL HISTORY: Past [...] and flexion. The x-ray from 09/13/2024 at [facility] shows tricompartmental arthritic changes. Treatment plan: A cortisone injection was discussed and administered today. Clinical decision making: Further treatment will be held until he is released from his left foot surgery. Right knee arthritis. The patient has been complaining of knee aching and pain consistent with arthritis. The x-ray from 09/13/2024 at [facility] shows tricompartmental arthritic changes. He has pain [...] Treatment plan: He follows with a local yoghurt maker and is recommended to have a prompt appointment for evaluation of his right great toe, likely needing nail trimming and potential antibiotics given his history of chronic wounds. Follow-up: Prompt appointment with local yoghurt maker for evaluation of right great toe. PROCEDURE [...] requiring urgent evaluation. documented in this encounter [facility] 09-26-2024 Evaluation + Plan note Associated Problem(s): Critical limb ischemia of left lower extremity with gangrene (CMS-HCC) Left lower extremity angiogram and intervention [facility] 09-26-2024 Miscellaneous Notes Associated Problem(s): Critical limb ischemia of left lower extremity with gangrene [place] Left lower extremity angiogram and intervention documented in this encounter [facility] 09-26-2024 History of Present illness Narrative Images from the original note were not included. To: [facility] HPI: Radha Frausto is a [...] Medical History: Diagnosis Date Angina pectoris ([facility]) Arrhythmia Atrial fibrillation ([facility]) Atrial flutter ([facility]) Atrial flutter ([facility]) Benign prostatic hyperplasia BPH with urinary obstruction Cancer ([facility]) skin cancer Cataract Constipation Coronary artery disease Dental disease no teeth Diabetes mellitus ([facility]) Diabetes mellitus type 2, controlled ([facility]) Hypercholesterolemia Hypertension Myositis Peripheral neuropathy Rash Scalp wound Urinary incontinence Ventricular tachycardia ([facility]) Visual impairment glasses Past Surgical History: Past Surgical History: Procedure Laterality Date 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; excision and debridement Left 10/29/2021 Performed by Ambrosio Al MD at [facility] AMPUTATION TOE 4TH & 5TH/WIDE INCISIONAL DEBRIDEMENT LEFT DIABETIC FOOT NECROTIZING FASCITIS Left 08/12/2021 Performed by Ambrosio Al MD at [facility] CARDIAC DEFIBRILLATOR PLACEMENT medtronic CATARACT EXTRACTION Coronary angiogram and left ventricular gram/pressure N/A 11/19/2018 Performed by Sage Jay MD at [facility] Coronary fractional flow reserve N/A 11/19/2018 Performed by Sage Jay MD at [facility] CYSTOSCOPY [facility] SOLUTION N/A 10/27/2021 Performed by Frederic Thorne MD at [facility] DC ICD RA lead replace - MDT N/A 07/21/2020 Performed by Yoni Espinoza MD at [facility] (EP) EP - Device DC ICD Left 11/20/2018 Performed by Shayna Betancourt MD at [facility] (EP) EP - Diagnostic-- EP study Right 11/16/2018 Performed by Rafita Garcia MD at [facility] (EP) INJECTION BLOCK NERVE MEDIAL BRANCH: bilat L 4/5, 10/31 Bilateral 05/03/2024 Performed by Alber Hyde MD at [facility] Loop recorder implant N/A 11/16/2018 Performed by Rafita Garcia MD at [facility] (EP) Loop recorder removal N/A 07/21/2020 Performed by Yoni Espinoza MD at [facility] (EP) SKIN CANCER EXCISION Social and Family [...] Interpersonal Safety: Unknown (08/24/2023) Received from [facility] [place] Safety & Environment Fear of Current [...] ischemia of left lower extremity with gangrene ([facility]) - Primary Current Assessment & Plan Left lower extremity angiogram and intervention Radha was seen today for new patient referral for bilateral lower extremities blood . Diagnoses and all orders for this visit: Critical limb ischemia of left lower extremity with gangrene ([facility]) PVD (peripheral vascular disease) ([facility] [facility] [place] [place] Gretta Whitlock MD, RONNIE, RPVI, FSVS, FACS [facility] This note was created with the assistance of a speech recognition program. While intending to generate a timely document that accurately reflects the content of the visit, no guarantee can be provided that every grammatical or spelling mistake has been or will be identified or corrected. Thank you for your understanding. documented in this encounter [facility] 09-04-2024 History of Present illness Narrative Radha Frausto Date of visit: 09/04/2024 Date of : 1955 Age: 69 y.o. 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, with long-term current use of insulin [place] Atrial fibrillation with RVR [place] V-tach [place] Atherosclerosis of [place] coronary artery of [place] heart without angina pectoris Pure hypercholesterolemia AICD present, double chamber- Medtronic Atrial flutter ([facility] Paroxysmal atrial fibrillation ([facility]) Myositis Diabetic peripheral neuropathy associated with type 2 diabetes mellitus ([facility] Hematuria, gross Non-healing surgical wound Degenerative changes of anterior chamber angle Diabetic autonomic neuropathy ([facility] Diabetic renal disease ([facility] Essential hypertension Hypomagnesemia Lower urinary tract symptoms due to benign prostatic hyperplasia Osteomyelitis ([facility] Angina pectoris ([facility] Lumbosacral spondylosis without myelopathy No Known Allergies [...] CAD, monomorphic VT s/p Medtronic dual-chamber ICD 2018 for secondary prevention with pod 1 RA [...] revision 07/21/2020 with loop explantation, amiodarone initiated. LHC 11/19/2018 showed single-vessel CAD (proximal LAD 60% stenosis) with negative FFR of 0.82, normal L SF TTE 02/19/2021 shows LVEF 50-55%, moderate LAE, mild RA AE, trace AI, [id number] MR, mild TR, RVSP 31 mm Hg Current cardiac medication regimen amiodarone 200 mg daily, aspirin 81 mg daily, Toprol 100 mg daily, Xarelto 20 mg daily Lives in [place] with friend. Retired - use to work [...] AF. Referred to Nephrology, appt in December. [employer] Dr. Gregg in [place] every 4-6 weeks. Gets shots for macular degeneration Past Medical History: Diagnosis Date Angina pectoris ([facility]) Arrhythmia Atrial fibrillation ([facility] Atrial flutter ([facility]) Atrial flutter ([facility]) Benign prostatic hyperplasia BPH with urinary obstruction Cancer ([facility]) skin cancer Cataract Constipation Coronary artery disease Dental disease no teeth Diabetes mellitus ([facility] Diabetes mellitus type 2, controlled ([facility]) Hypercholesterolemia Hypertension Myositis Peripheral neuropathy Rash Scalp wound Urinary incontinence Ventricular tachycardia ([facility] Visual impairment glasses No data recorded No data recorded No data recorded Past Surgical History: Procedure Laterality Date 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; excision and debridement Left 10/29/2021 Performed by Ambrosio Al MD at [facility] AMPUTATION TOE 4TH & 5TH/WIDE INCISIONAL DEBRIDEMENT LEFT DIABETIC FOOT NECROTIZING FASCITIS Left 08/12/2021 Performed by Ambrosio Al MD at [facility] CARDIAC DEFIBRILLATOR PLACEMENT medtronic CATARACT EXTRACTION Coronary angiogram and left ventricular gram/pressure N/A 11/19/2018 Performed by Sage Jay MD at [facility] Coronary fractional flow reserve N/A 11/19/2018 Performed by Sage Jay MD at [facility] CYSTOSCOPY [facility] SOLUTION N/A 10/27/2021 Performed by Frederic Thorne MD at [facility] DC ICD RA lead replace - MDT N/A 07/21/2020 Performed by Yoni Espinoza MD at [facility] (EP) EP - Device DC ICD Left 11/20/2018 Performed by Shayna Betancourt MD at [facility] (EP) EP - Diagnostic-- EP study Right 11/16/2018 Performed by Rafita Garcia MD at [facility] (EP) INJECTION BLOCK NERVE MEDIAL BRANCH: bilat L 10/05, 10/31 Bilateral 05/03/2024 Performed by Alber Hyde MD at [facility] Loop recorder implant N/A 11/16/2018 Performed by Rafita Garcia MD at [facility] () Loop recorder removal N/A 07/21/2020 Performed by Yoni Espinoza MD at [facility] () SKIN CANCER EXCISION Family History Problem Relation [...] Interpersonal Safety: Unknown (08/24/2023) Received from [facility] [place] Safety & Environment Fear of Current [...] a year later when he presented to [facility]. Suspected dislodged lead was causing AF [...] moderate LAE, mild RA AE, trace AI, uiwz-ms-zldfidue MR, mild TR, RVSP 31 mm Hg [...] in about 1 year (around 09/04/2025). PCP: CYADEN Armstrong Referring Physician: No referring provider defined for this encounter. JOSE MIGUEL Ribeiro 09/04/24 1453 documented in this encounter [facility] 09-04-2024 History of Present illness Narrative I agree with the findings in the scanned document. documented in this encounter [facility] 09-03-2024 Miscellaneous Notes Called patient to remind them to bring their most current copy of their medication list with them to their appt. Patient verbalizes understanding. documented in this encounter [facility] 09-03-2024 Telephone encounter Note Called patient to remind them to bring their most current copy of their medication list with them to their appt. Patient verbalizes understanding. [facility] 09-03-2024 Miscellaneous Notes Called patient to remind them to bring their most current copy of their medication list with them to their appt. Patient verbalizes understanding. documented in this encounter [facility] 09-03-2024 Telephone encounter Note Called patient to remind them to bring their most current copy of their medication list with them to their appt. Patient verbalizes understanding. [facility] 07-12-2024 Miscellaneous Notes Samantha 03/08/23 Pt has future appt 07/24/24 documented in this encounter [facility] 07-12-2024 Telephone encounter Note Samantha 03/08/23 Pt has future appt 07/24/[address] [facility] 05-23-2024 History of Present illness Narrative [facility] [address] [place] [address] Patient: Radha Frausto Sex: male : 1955 Age: 69 y.o. PCP: CAYDEN Armstrong 05/23/2024 Radha Frausto is here for a(n) [...] Medical History: Diagnosis Date Angina pectoris ([facility]) Arrhythmia Atrial fibrillation ([facility] Atrial flutter ([facility]) Atrial flutter ([facility]) Benign prostatic hyperplasia BPH with urinary obstruction Cancer ([facility]) skin cancer Cataract Constipation Coronary artery disease Dental disease no teeth Diabetes mellitus ([facility]) Diabetes mellitus type 2, controlled ([facility]) Hypercholesterolemia Hypertension Myositis Peripheral neuropathy Rash Scalp wound Urinary incontinence Ventricular tachycardia ([facility]) Visual impairment glasses Past Surgical History: Procedure Laterality Date 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; excision and debridement Left 10/29/2021 Performed by Ambrosio Al MD at [facility] AMPUTATION TOE 4TH & 5TH/WIDE INCISIONAL DEBRIDEMENT LEFT DIABETIC FOOT NECROTIZING FASCITIS Left 08/12/2021 Performed by Ambrosio Al MD at [facility] CARDIAC DEFIBRILLATOR PLACEMENT medtronic CATARACT EXTRACTION Coronary angiogram and left ventricular gram/pressure N/A 11/19/2018 Performed by Sage Jay MD at [facility] Coronary fractional flow reserve N/A 11/19/2018 Performed by Sage Jay MD at [facility] CYSTOSCOPY [facility] SOLUTION N/A 10/27/2021 Performed by Frederic Thorne MD at [facility] DC ICD RA lead replace - MDT N/A 07/21/2020 Performed by Yoni Espinoza MD at [facility] (EP) EP - Device DC ICD Left 11/20/2018 Performed by Shayna Betancourt MD at [facility] (EP) EP - Diagnostic-- EP study Right 11/16/2018 Performed by Rafita Garcia MD at [facility] (EP) INJECTION BLOCK NERVE MEDIAL BRANCH: bilat L 4/5, 5 Bilateral 05/03/2024 Performed by Alber Hyde MD at [facility] Loop recorder implant N/A 11/16/2018 Performed by Rafita Garcia MD at [facility] (EP) Loop recorder removal N/A 07/21/2020 Performed by Yoni Espinoza MD at [facility] (EP) SKIN CANCER EXCISION No Known Allergies [...] Interpersonal Safety: Unknown (08/24/2023) Received from [facility] Safety & Environment Fear of Current [...] Benavides 05/23/24 1347 documented in this encounter [facility] 05-23-2024 Miscellaneous Notes Last OV 03/08/23. Letter sent to pt 02/23. Attempted to call pt, no VM box set up. Letter sent. Pt will need appointment for future refills. documented in this encounter [facility] 05-23-2024 Telephone encounter Note Last OV 03/08/23. Letter sent to pt 02/23. Attempted to call pt, no VM box set up. Letter sent. Pt will need appointment for future refills. [facility] 04-09-2024 History of Present illness Narrative [facility] [address] [place] [address] Patient: Radha Frausto Sex: male : 1955 [...] 10/29/2021 Performed by Ambrosio Al MD at [facility] AMPUTATION TOE 4TH & 5TH/WIDE INCISIONAL DEBRIDEMENT LEFT DIABETIC FOOT NECROTIZING FASCITIS Left 08/12/2021 Performed by Ambrosio Al MD at [facility] CARDIAC DEFIBRILLATOR PLACEMENT medtronic CATARACT EXTRACTION Coronary angiogram and left ventricular gram/pressure N/A 11/19/2018 Performed by Sage Jay MD at [facility] Coronary fractional flow reserve N/A 11/19/2018 Performed by Sage aJy MD at [facility] CYSTOSCOPY [facility] SOLUTION N/A 10/27/2021 Performed by Frederic Thorne MD at [facility] DC ICD RA lead replace - MDT N/A 07/21/2020 Performed by Yoni Espinoza MD at [facility] (EP) EP - Device DC ICD Left 11/20/2018 Performed by Shayna Betancourt MD at [facility] (EP) EP - Diagnostic-- EP study Right 11/16/2018 Performed by Rafita Garcia MD at [facility] (EP) Loop recorder implant N/A 11/16/2018 Performed by Rafita Garcia MD at [facility] (EP) Loop recorder removal N/A 07/21/2020 Performed by Yoni Espinoza MD at [facility] (EP) SKIN CANCER EXCISION No Known Allergies [...] Interpersonal Safety: Unknown (08/24/2023) Received from [facility] [place] Safety & Environment Fear of Current [...] BLOCK NERVE MEDIAL BRANCH: bilat L45 51 Bilateral L4/5, 5/1 Facet Injection/Medial [...] these patients; however, close collaboration with a engineering and operations director or player services representative is recommended before initiating the RFN procedure, therefore prior to RFA we will consult with patient's engineering and operations director/player services representative for approval and recommendations to proceed with [...] Benavides 04/11/24 1226 documented in this encounter [facility] 04-09-2024 Instructions Chula BonillaFROILAN - 04/09/2024 10:45 AM EDT Facet Injection [...] nearest emergency room. documented in this encounter [facility] 02-22-2024 History of Present illness Narrative [facility] [address] [place] [address] Patient: Radha Frausto Sex: male : 1955 Age: 68 y.o. PCP: [facility] Nathaniel 02/22/2024 Radha Frausto is here for [...] Angina pectoris (CMS-HCC) Arrhythmia Atrial fibrillation ([facility]) Atrial flutter ([facility]) Atrial flutter ([facility]) Benign prostatic hyperplasia BPH with urinary obstruction Cancer ([facility]) skin cancer Cataract Constipation Coronary artery disease Dental disease no teeth Diabetes mellitus ([facility]) Diabetes mellitus type 2, controlled ([facility] Hypercholesterolemia Hypertension Myositis Peripheral neuropathy Rash Scalp wound Urinary incontinence Ventricular tachycardia ([facility] Visual impairment glasses Past Surgical History: Procedure Laterality Date 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; excision and debridement Left 10/29/2021 Performed by Ambrosio Al MD at [facility] AMPUTATION TOE 4TH & 5TH/WIDE INCISIONAL DEBRIDEMENT LEFT DIABETIC FOOT NECROTIZING FASCITIS Left 08/12/2021 Performed by Ambrosio Al MD at [facility] CARDIAC DEFIBRILLATOR PLACEMENT medtronic CATARACT EXTRACTION Coronary angiogram and left ventricular gram/pressure N/A 11/19/2018 Performed by Sage Jay MD at [facility] Coronary fractional flow reserve N/A 11/19/2018 Performed by Sage Jay MD at [facility] CYSTOSCOPY [facility] SOLUTION N/A 10/27/2021 Performed by Frederic Thorne MD at [facility] DC ICD RA lead replace - MDT N/A 07/21/2020 Performed by Yoni Espinoza MD at [facility] (EP) EP - Device DC ICD Left 11/20/2018 Performed by Shayna Betancourt MD at [facility] (EP) EP - Diagnostic-- EP study Right 11/16/2018 Performed by Rafita Garcia MD at [facility] (EP) Loop recorder implant N/A 11/16/2018 Performed by Rafita Garcia MD at [facility] (EP) Loop recorder removal N/A 07/21/2020 Performed by Yoni Espinoza MD at [facility] (EP) SKIN CANCER EXCISION No Known Allergies [...] Interpersonal Safety: Unknown (08/24/2023) Received from [facility] Safety & Environment Fear of Current [...] Mine Ruffin RN. Provider Statement: I, EDWARD BENAVIDSE, personally performed the services described in the documentation, as scribed by Mine Ruffin RN in my presence, and it is both accurate and complete. Mine Ruffin RN 02/22/24 1359 EDWARD Benavides 02/29/24 1218 documented in this encounter [facility] 02-21-2024 Miscellaneous Notes 02/21/24 Remember to arrange Mar 2024 annual offc appt. Please contact pt to arrange. documented in this encounter [facility] 02-21-2024 Miscellaneous Notes OV-03/08/2023 documented in this encounter [facility] 02-21-2024 Telephone encounter Note 02/21/24 Remember to arrange Mar 2024 annual offc appt. Please contact pt to arrange. [facility] 02-21-2024 Telephone encounter Note OV-03/08/[address] [facility] 01-17-2024 Miscellaneous Notes Radhaana Merlos RN states he is needing a prescription for Tramadol. She is requesting it as it was ordered while in the hospital because this has been effective for him. ( 50 mg every 8 hours ). 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 documented in this encounter [facility] 01-17-2024 Telephone encounter Note Sarahs Chelita RN states he is needing a prescription for Tramadol. She is requesting it as it was ordered while in the hospital because this has been effective for him. ( 50 mg every 8 hours ). 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 [facility] 01-11-2024 Miscellaneous Notes Patients friend came to window with request to get soma medication refilled. Provider stated we do not fill soma and friend instructed with information and to reach out pcp as they were the ones who provided patient with the rx. Friend verbalized understanding. documented in this encounter [facility] 01-11-2024 Telephone encounter Note Patients friend came to window with request to get soma medication refilled. Provider stated we do not fill soma and friend instructed with information and to reach out pcp as they were the ones who provided patient with the rx. Friend verbalized understanding. [facility] 01-09-2024 History of Present illness Narrative [facility] [address] [place] [address] Patient: Radha Frausto Sex: male : 1955 Age: 68 y.o. PCP: [facility] Nathaniel 01/09/2024 Radha Frausto is here for [...] Medical History: Diagnosis Date Angina pectoris ([facility]) Arrhythmia Atrial fibrillation ([facility]) Atrial flutter ([facility]) Atrial flutter ([facility]) Benign prostatic hyperplasia BPH with urinary obstruction Cancer ([facility]) skin cancer Cataract Constipation Coronary artery disease Dental disease no teeth Diabetes mellitus ([facility]) Diabetes mellitus type 2, controlled ([facility]) Hypercholesterolemia Hypertension Myositis Peripheral neuropathy Rash Scalp wound Urinary incontinence Ventricular tachycardia ([facility]) Visual impairment glasses Past Surgical History: Procedure Laterality Date 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; excision and debridement Left 10/29/2021 Performed by Ambrosio Al MD at [facility] AMPUTATION TOE 4TH & 5TH/WIDE INCISIONAL DEBRIDEMENT LEFT DIABETIC FOOT NECROTIZING FASCITIS Left 08/12/2021 Performed by Ambrosio Al MD at [facility] CARDIAC DEFIBRILLATOR PLACEMENT medtronic CATARACT EXTRACTION Coronary angiogram and left ventricular gram/pressure N/A 11/19/2018 Performed by Sage Jay MD at [facility] CARDIAC CATH LABS Coronary fractional flow reserve N/A 11/19/2018 Performed by Sage Jay MD at [facility] CARDIAC CATH LABS CYSTOSCOPY [facility] SOLUTION N/A 10/27/2021 Performed by Frederic Thorne MD at [facility] DC ICD RA lead replace - MDT N/A 07/21/2020 Performed by Yoni Espinoza MD at [facility] (EP) EP - Device DC ICD Left 11/20/2018 Performed by Shayna Betancourt MD at [facility] (EP) EP - Diagnostic-- EP study Right 11/16/2018 Performed by Rafita Garcia MD at [facility] () Loop recorder implant N/A 11/16/2018 Performed by Rafita Garcia MD at [facility] () Loop recorder removal N/A 07/21/2020 Performed by Yoni Espinoza MD at [facility] () SKIN CANCER EXCISION No Known Allergies [...] Interpersonal Safety: Unknown (08/24/2023) Received from [facility] Safety & Environment Fear of Current [...] BENAVIDES by Chula Bonilla CNA. Provider Statement: IBEBETO PA, personally performed the services described in the documentation, as scribed by Chula Bonilla CNA in my presence, and it is both accurate and complete. Chula Bonilla CNA 01/09/24 1308 Chula Bonilla CNA 01/09/24 1323 EDWARD Benavides 01/11/24 0917 documented in this encounter [facility] 08-09-2022 Note PROCEDURE: XR FOOT [...] by: EDILSON DON Date: 2022-08-09 15:44 [facility] [place] Evaluation note Diagnosis Enuresis- Primary Functional urinary [...] Paroxysmal ventricular tachycardia documented in this encounter [facility] System[facility] note* Diagnosis Lumbar spondylolysis- Primary Lumbosacral spondylosis without myelopathy documented in this encounter [facility]* Diagnosis Atrial fibrillation, unspecified type (CMS-HCC)- Primary documented in this encounter [facility]* Diagnosis Ventricular tachycardia (CMS-HCC) Paroxysmal ventricular tachycardia Atrial fibrillation with RVR (CMS-HCC) V-tach ([facility]) Paroxysmal ventricular tachycardia documented in this encounter [facility]* Diagnosis Lumbosacral spondylosis without myelopathy- Primary Disc displacement, lumbar Displacement of lumbar intervertebral disc without myelopathy Lumbar radiculopathy, chronic documented in this encounter [facility]* Diagnosis Lumbosacral spondylosis without myelopathy- Primary Lumbosacral spondylosis without myelopathy- Primary Lumbosacral spondylosis without myelopathy documented in this encounter [facility] note* Diagnosis Enuresis- Primary Functional urinary incontinence BPH (benign prostatic hypertrophy) with urinary obstruction- Primary Hypertrophy of prostate with urinary obstruction and other lower urinary tract symptoms (LUTS) Benign prostatic hyperplasia with urinary obstruction- Primary Urinary retention- Primary Unspecified retention of urine Benign prostatic hyperplasia with urinary obstruction Lumbosacral spondylosis without myelopathy- Primary documented in this encounter [facility] note* Diagnosis Enuresis- Primary Functional urinary incontinence BPH (benign prostatic hypertrophy) with urinary obstruction- Primary Hypertrophy of prostate with urinary obstruction and other lower urinary tract symptoms (LUTS) Benign prostatic hyperplasia with urinary obstruction- Primary Urinary retention- Primary Unspecified retention of urine Benign prostatic hyperplasia with urinary obstruction Ventricular tachycardia (CMS-HCC) Paroxysmal ventricular tachycardia Atrial fibrillation with RVR (CMS-HCC) V-tach ([facility]) Paroxysmal ventricular tachycardia documented in this encounter [facility]* Diagnosis Enuresis- Primary Functional urinary [...] for monitoring amiodarone therapy Paroxysmal atrial fibrillation ([facility]) Atrial fibrillation Typical atrial flutter ([facility]) V-tach ([facility]) Paroxysmal ventricular tachycardia Essential hypertension Unspecified essential hypertension documented in this encounter [facility]* Diagnosis Enuresis- Primary Functional urinary incontinence BPH (benign prostatic hypertrophy) with urinary obstruction- Primary Hypertrophy of prostate with urinary obstruction and other lower urinary tract symptoms (LUTS) Benign prostatic hyperplasia with urinary obstruction- Primary Urinary retention- Primary Unspecified retention of urine Benign prostatic hyperplasia with urinary obstruction AICD present, double chamber- Medtronic- Primary documented in this encounter [facility]* Diagnosis Enuresis- Primary Functional urinary incontinence BPH (benign prostatic hypertrophy) with urinary obstruction- Primary Hypertrophy of prostate with urinary obstruction and other lower urinary tract symptoms (LUTS) Benign prostatic hyperplasia with urinary obstruction- Primary Urinary retention- Primary Unspecified retention of urine Benign prostatic hyperplasia with urinary obstruction Critical limb ischemia of left lower extremity with gangrene ([facility])- Primary PVD (peripheral vascular disease) Unspecified peripheral vascular disease documented in this encounter [facility]* Diagnosis Acute pain of right knee- Primary Arthritis of right knee Effusion of right knee documented in this encounter [facility] HealthcareEvaluation note* Diagnosis Paronychia of great toe of right foot- Primary Angiopathy, diabetic ([facility]) Type II or unspecified type diabetes mellitus with peripheral circulatory disorders, not stated as uncontrolled Diabetic polyneuropathy associated with type 2 diabetes mellitus ([facility]/HCC) Status post partial amputation of left foot ([facility]) documented in this encounter [facility] HealthcareEvaluation note* Diagnosis Enuresis- Primary Functional urinary [...] ischemia of left lower extremity with gangrene ([facility])- Primary documented in this encounter [facility] System[facility] noteNo assessment information available [facility] Work Phone: Evaluation note* Diagnosis Enuresis- Primary Functional urinary incontinence [...] left lower extremity with gangrene (CMS-HCC)- Primary Atrial fibrillation, unspecified type ([facility]) documented in this encounter [facility] note* Diagnosis Dermatophytosis of nail- Primary Dystrophic nail Other specified disease of nail Status post partial amputation of left foot (HCC) Angiopathy, diabetic (HCC) Type II or unspecified type diabetes mellitus with peripheral circulatory disorders, not stated as uncontrolled Diabetic polyneuropathy associated with type 2 diabetes mellitus (HCC) documented in this encounter [facility] HealthcareInstructionsNot on filedocumented [facility] on filedocumented in this [facility] SystemInstructionsNot on filedocumented in this [facility] InstructionsNot on filedocumented in this [facility] InstructionsNot on filedocumented in this [facility] InstructionsNot on filedocumented in this [facility] InstructionsNot on filedocumented in this [facility] InstructionsNot on filedocumented in this [facility] InstructionsNot on filedocumented in this [facility] InstructionsNot on filedocumented in this [facility] InstructionsNot on filedocumented in this [facility] Summary Purpose Family History No [...] contrast Bebeto Romano PA [address] [address] [facility] [address] [place] [address] Phone: [phone] Referral ID Status Reason Start Date Expiration Date V isits Requested Visits Authorized [id number] Pending Review 02/22/2024 02/21/2025 1 1 Specialty Diagnoses / Procedures Referred By Contac t Referred To Contact Diagnoses Lumbosacral spondylosis without myelopathy Procedures Case request operating room: INJECTION BLOCK NERVE MEDIAL BRANCH: bilat L45 51 Bebeto Romano PA [address] [address] Referral ID Status Reason Start Date Expiration Date V isits Requested Visits Authorized [id number] Pending Review 04/09/2024 04/09/2025 1 1 Additional Source Comments (unrecognized sect ion and content) No Status Records FoundNo Status Records FoundNo Status Records FoundNo Status Records FoundNo Status Records FoundNo Status Records Found INFORMATION SOURCE (unrecogn ized section and content) DATE CREATED AUTHOR 11/16/2022 [facility] DATE CREATED AUTHOR AUTHOR'S ORGANIZ ATION 09/28/2024 [facility] DATE CREATED AUTHOR AUTHOR'S ORGANIZ ATION 10/12/2024 [facility] DATE CREATED AUTHOR AUTHOR'S ORGANIZ ATION 11/20/2024 [facility] DATE CREATED AUTHOR AUTHOR'S ORGANIZ ATION 01/13/2025 [facility] EPIC DATE CREATED AUTHOR AUTHOR'S ORGANIZ ATION 02/15/2025 [facility] Reason for Visit (unrecogniz ed [...] wound Specialty Diagnoses / Procedures Referred By Contamanda t Referred To Contact Vascular Surgery Diagnoses PVD (peripheral vascular disease) Mariana Gutiérrez, NIKKI [address] [place] [address] Phone: tel: fax: [facility] [address] [place] [address] Phone: tel:[phone] fax: Referral ID Status Reason Start Date Expiration Date Visits Requested Visits Authorized [id number] Pending Review Specialty Services Required 08/28/2024 08/28/2025 1 1 Reason Comments Pain Reason Comments Toe Pain aRdha Frausto 69yo New Patient last seen 07/12/2021. Patient is diabetic. Concerns of Right great toenail infection, patient relates drainage, thick and painful. Patient is seeing wound care in [place] for possible partial amputation of left foot, due to non-healing after amputation surgery 3 years ago, in [place]. Currently taking cephalexin for left foot infection. Left leg blood clot as of last week, patient is on aspirin and Xarelto. BS [address] Bejarano 09/30/2024 SS 10 Reason Comments ANGIO 09-27-24 Reason Onset Date Comments Surgical Or Dental Clearance 10/15/2024 Reason Comments DM Foot Care Established patient presents today for routine diabetic nail care. Patient would like to start the process for diabetic shoes, which they state will require toe filler insert. Patient has some wounds on BL feet/ankle, patient has HH come and care for these. Patient recently had amputation of the right hallux and left 2nd digit in october. PCP: Dr. Bejarano LV 11/06/24, A1C: 8.7, BS: 132 Care Teams (unrecognized sec tion and content) Associate Relationship Specialty Start Date End Date Services, [facility] [address] [place], [place] PCP - General Family Medicine 04/16/24 Associate Relationship Specialty Start Date End Date Services, [facility] [address] [place], [place] PCP - General Family Medicine 12/26/23 Associate Relationship Specialty Start Date End Date Services, [facility] [address] [place], [place] PCP - General Family Medicine 12/26/23 Associate Relationship Specialty Start Date End Date Services, [facility] [address] [place], [place] PCP - General Family Medicine 12/26/23 Associate Relationship Specialty Start Date End Date Services, [facility] [address] [place], [place] PCP - General Family Medicine 12/26/23 Associate Relationship Specialty Start Date End Date Services, [facility] [address] [place], [place] PCP - General Family Medicine 12/26/23 Associate Relationship Specialty Start Date End Date Services, [facility] [address] [place], [place] PCP - General Family Medicine 12/26/23 Associate Relationship Specialty Start Date End Date Services, [facility] [address] [place], [place] PCP - General Family Medicine 04/16/24 Associate Relationship Specialty Start Date End Date Services, [facility] [address] [place], [place] PCP - General Family Medicine 04/16/24 Associate Relationship Specialty Start Date End Date Services, [facility] [address] [place], [place] PCP - General Family Medicine 04/16/24 Associate Relationship Specialty Start Date End Date Services, [facility] [address] [place], [place] PCP - General Family Medicine 04/16/24 Associate Relationship Specialty Start Date End Date Services, [facility] [address] [place] PCP - General Family Medicine 04/16/24 Associate Relationship Specialty Start Date End Date Services, [facility] [address] [place] PCP - General Family Medicine 04/16/24 Associate Relationship Specialty Start Date End Date Bradley Bejarano PA [address] [place] [address] PCP - General Family Medicine 10/02/24 Associate Relationship Specialty Start Date End Date Bradley Bejarano PA [address] [place] [address] PCP - General Family Medicine 10/02/24 Associate Relationship Specialty Start Date End Date Bradley Bejarano PA [address] [place] [address] PCP - General Family Medicine 10/02/24 Associate Relationship Specialty Start Date End Date Bradley Bejarano PA [address] [place] [address] PCP - General Family Medicine 10/02/24 Associate Relationship Specialty Start Date End Date Services, [facility] [address] [place] PCP - General Family Medicine 04/16/24 Team Status: Inactive Member Role Status Dates Mariana Gutiérrez DPM MS Attending Provider Active Start: November 12, 2024 End: November 12, 2024 Associate Relationship Specialty Start Date End Date [facility] [address] [place], [place] PCP - General Family Medicine 04/16/24 Associate Relationship Specialty Start Date End Date Bradley Bejarano PA [address] [place], [place] [id number] PCP - General Family Medicine 10/02/24 Associate Relationship Specialty Start Date End Date Bradley Bejarano PA [address] [place], [place] [id number] PCP - General Family Medicine 10/02/24 Goals (unrecognized section and content) Goals may be documented in a n alternate section FOR RECORDS PERTAINING TO PATIENTS WHO ARE [...] BE BASED ON THE PRIMARY CLINICAL RECORDS. [facility] [employer] [facility]. provides no warranty or guarantee of the accuracy or completeness of information in this document.
== END 2025-02-19 10:05 | disposition home or self-care (01) ==
LOC: WC 10:05
PROVIDERS: Visit Provider Podiatrist Foot & Ankle Surgery
DX: E11.621 Type 2 diabetes mellitus with foot ulcer (principal); L97.322 Non-pressure chronic ulcer of left ankle with fat layer exposed; L97.412 Non-pressure chronic ulcer of right heel and midfoot with fat layer exposed; E11.622 Type 2 diabetes mellitus with other skin ulcer; L97.511 Non-pressure chronic ulcer of other part of right foot limited to breakdown of skin
CPT/HCPCS: G0463

== ENCOUNTER 2025-03-19 09:25 | Outpatient (OUT) | payer MEDICARE, MEDICAID, SELFPAY ==
--- OUTSIDE RECORDS SUMMARY | 2025-03-19 09:35 | XMS_ITS | CCD ---
Author Organization [facility] Care Team Providers Care Last Picker Name Role Phone MARIANA GUTIÉRREZ Attending Unavailable MARIANA GUTIÉRREZ Admitting Unavailable MARIANA GUTIÉRREZ Attending Unavailable MARIANA GUTIÉRREZ Admitting Unavailable MARIANA GUTIÉRREZ Admitting Unavailable MARIANA GUTIÉRREZ Attending Unavailable CHET FOURNIER Admitting Unavailable CHET FOURNIER Attending Unavailable MARIANA GUTIÉRREZ Admitting Unavailable MARIANA GUTIÉRREZ Attending Unavailable MARIANA GUTIÉRREZ Admitting Unavailable ZIEBDR EDILSON BONE Consulting Unavailable MARIANA GUTIÉRREZ Attending Unavailable MARIANA GUTIÉRREZ Consulting Unavailable MARIANA GUTIÉRREZ Admitting Unavailable MARIANA GUTIÉRREZ Consulting Unavailable MARIANA GUTIÉRREZ Attending Unavailable Services, [facility] Primary Care Provider Services, [facility] Primary Care Provider Services, [facility] Primary Care Provider GRETTA WHITLOCK Admitting Unavailable GRETTA WHITLOCK Attending Unavailable GRETTA WHITLOCK Referring Unavailable SERVICES, [facility] Primary Care Unava ilable Bradley Saucedo Primary Care Provider [phone] GRETTA WHITLOCK Attending Unavailable SERVICES, [facility] Primary Care Unava ilable GRETTA WHITLOCK Attending Unavailable MARIANA GUTIÉRREZ Referring Unavailable SERVICES, [facility] Primary Care Unava ilable Patander Mariana JORDAN Attending Provider Mariana Gutiérrez Attending Unavailable Mariana Gutiérrez Admitting Unavailable BEBETO ROMANO Attending Unavailable ALBER HYDE Referring Unavailable SERVICES, [facility] Primary Care Unava ilable BEBETO ROMANO Attending Unavailable BEBETO ROMANO Referring Unavailable SERVICES, [facility] Primary Care Unava ilable BEBETO ROMANO Attending Unavailable ALBER HYDE Referring Unavailable SERVICES, [facility] Primary Care Unava ilable SERVICES, [facility] Care Unava ilable CHRISTIAN, DIVYA Valera Attending Unavailable ALBER HYDE Admitting Unavailable ALBER HYDE Attending Unavailable ALBER HYDE Referring Unavailable DIMITRI, ALBER Valera Attending Unavailable ALBER HYDE Referring Unavailable SERVICES, [facility] Unava ilable CECY, IZZY Langford Referring Unavailable SERVICES, [facility] Unava ilable BEBETO ROMANO Attending Unavailable ALBER HYDE Referring Unavailable SERVICES, [facility] Unava ilable MARIANA GUTIÉRREZ Referring Unavailable SERVICES, [facility] Unava ilable SERVICES, [facility] Unava ilable VANDANA BRAR Attending Unavailable SERVICES, [facility] Unava ilable SERVICES, [facility] Unava ilable EDILSON FERNANDES Attending Unavailable BRARVANDANA N Attending Unavailable BRAR, VANDANA N Referring Unavailable SERVICES, [facility] Unava ilable TYRESE, VANDANA N Attending Unavailable BRAR, VANDANA N Referring Unavailable SERVICES, [facility] Unava ilable VANDANA BRAR N Attending Unavailable BRAR VANDANA N Referring Unavailable SERVICES, [facility] Unava ilable BRARVANDANA N Attending Unavailable BRAR, VANDANA N Referring Unavailable SERVICES, [facility] Unava ilable SERVICES, [facility] Unava ilable JAIRO GARG Attending Unavailable SHERINE RAMIRES Referring Unavailable SERVICES, [facility] Unava ilable SHERINE RAMIRES Referring Unavailable SERVICES, [facility] Unava ilable BEBETO BEARD Attending Unavailable EDILSON GUZMAN Attending Unavailable RUSEDILSON FOWLER Attending Unavailable RUSEDILSON FOWLER Attending Unavailable Medications Current Medications Medication Drug [...] morning. Active atorvastatin 20 mg oral tablet (14 sources) HMG-CoA Reductase Inhibitor Start: 09-02-2024 take 1 tablet by mouth in the morning atorvastatin (Lipitor) 20 MG tablet Take 20 mg by mouth in the morning. 09/02/2024 Active cephalexin 500 mg oral capsule (7 sources) Cephalosporin Antibacterial cephalexin (Keflex) 500 MG [...] instructed. 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, left leg] [...] Episodic Other bone disease and musculoskeletal deformities (5 sources) History of amputation of left foot; [...] 09-04-2024 Episodic Other aftercare (1 source) Other intermission coordinator (current) drug therapy; Translations: [Other retirement (current) drug therapy] Onset: 09-04-2024 Episodic Other [...] 02-13-2025 Albumin [Mass/Vol] 4.2 g/dL Normal 3.2-5.3 [facility] Comment on above: Performed By: #### B MP, CBCA, 88314-6, PINR #### [facility] ([id number]) [address] [place] [address] 88610 BASIC METABOLIC PANELon 01-31 Anion gap [Moles/Vol] 11 mmol/L Normal 5-15 [facility] Comment on above: Performed By: #### B MP, CBCA, 31006-3, PINR #### [facility] ([id number]) [address] [place] [address] 51206 Calcium [Mass/Vol] 9.1 mg/dL Normal 8.5-10.5 [facility] Comment on above: Performed By: #### B MP, CBCA, 30022-4, PINR #### [facility] ([id number]) [address] [place] [address] 30928 Chloride [Moles/Vol] 99 mmol/L Normal 98-109 [facility] Comment on above: Performed By: #### B MP, CBCA, 00852-9, PINR #### [facility] ([id number]) [address] [place] [address] 08450 CO2 [Moles/Vol] 28 mmol/L Normal 22-32 [facility] Comment on above: Performed By: #### B MARTHA HSIEH, 22069-1, PINR #### [facility] ([id number]) [address] [place] [address] 20518 Creatinine [Mass/Vol] 1.30 mg/dL Normal 0.60-1.30 [facility] Comment on above: Result Comment: METH OD TRACEABLE TO IDMS STANDARD Performed By: #### B MARTHA HSIEH, 07180-7, PINR #### [facility] ([id number]) [address] [place] [address] 83426 GFR/1.73 sq M.predicted among non-blacks MDRD (S/P/Bld) [Vol rate/Area] 59 mL/min/{1.73_m2} Low >=60 [facility] Comment on above: Result Comment: Repo rted eGFR is based on the CKD-EPI 2020 equation that does not use a race coefficient. Performed By: #### B GRETCHEN HSIEHA, 37849-3, PINR #### [facility] ([id number]) [address] [place] [address] 99961 Glucose [Mass/Vol] 203 mg/dL High 65-99 [facility] Comment on above: Performed By: #### B МАРИЯ, CBCA, 73089-3, PINR #### [facility] ([id number]) [address] [place] [address] 93251 Potassium [Moles/Vol] 4.6 mmol/L Normal 3.5-5.0 [facility] Comment on above: Performed By: #### B МАРИЯ, CBCA, 05053-9, PINR #### [facility] ([id number]) [address] [place] [address] Sodium [Moles/Vol] 138 mmol/L Normal 134-146 [facility] Comment on above: Performed By: #### B MP, CBCA, 92915-5, PINR #### [facility] ([id number]) [address] [place] [address] 79859 Urea nitrogen [Mass/Vol] 16 mg/dL Normal 5-27 [facility] Comment on above: Performed By: #### B MP, CBCA, 69945-9, PINR #### [facility] ([id number]) [address] [place] [address] 46632 CBC (NO DIFF)on 02-13-2025 Erythrocyte distribution width (RBC) [Ratio] 16.2 % High 11.5-15 [facility] Comment on above: Performed By: #### B МАРИЯ, CBCA, 81679-1, PINR #### [facility] ([id number]) [address] [place] [address] 52842 Hematocrit (Bld) [Volume fraction] 36.1 % Low 39-50 [facility] Comment on above: Performed By: #### B MP, CBCA, 40933-4, PINR #### [facility] ([id number]) [address] [place] [address] 73119 Hemoglobin (Bld) [Mass/Vol] 11.6 g/dL Low 13-17 [facility] Comment on above: Performed By: #### B MP, CBCA, 87702-6, PINR #### [facility] ([id number]) [address] [place] [address] 20458 MCH (RBC) [Entitic mass] 27.0 pg Normal 27-34 [facility] Comment on above: Performed By: #### B MP, CBCA, 86600-7, PINR #### [facility] ([id number]) [address] [place] [address], [place] [address] MCHC (RBC) [Mass/Vol] 32.2 g/dL Normal 32-36 [facility] Comment on above: Performed By: #### B MP, CBCA, 60880-8, PINR #### [facility] ([id number]) [address] [place] [address] 91775 MCV (RBC) [Entitic vol] 84 fL Normal 80-100 [facility] Comment on above: Performed By: #### B MP, CBCA, 32732-8, PINR #### [facility] ([id number]) [address] [place] [address] 36417 Platelet mean volume (Bld) [Entitic vol] 8.0 fL Normal 7-12 [facility] Comment on above: Performed By: #### B MP, CBCA, 13251-5, PINR #### [facility] ([id number]) [address] [place] [address] 40398 Platelets (Bld) [#/Vol] 266 10*3/uL Normal 150-450 [facility] Comment on above: Performed By: #### B MP, CBCA, 44304-0, PINR #### [facility] ([id number]) [address] [place] [address] 19952 RBC COUNT 4.29 X10E12/L Normal 4.1-5.7 [facility] Comment on above: Performed By: #### B MP, CBCA, 72924-7, PINR #### [facility] ([id number]) [address] [place] [address] 77662 WBC (Bld) [#/Vol] 6.3 10*3/uL Normal 4-11 [facility] Comment on above: Performed By: #### B MP, CBCA, 01342-0, PINR #### [facility] ([id number]) [address] [place] [address], [place] [address] MAGNESIUMon 02-13-2025 Magnesium [Mass/Vol] 2.1 mg/dL Normal 1.8-2.6 [facility] Comment on above: Performed By: #### B MARTHA HSIEH, 22869-6, PINR #### [facility] ([id number]) [address] [place] [address] 54226 MICROALBUMIN / CREATININE UR INE RATIOon 02-13-2025 Albumin DL <= 20 mg/L (U) [Mass/Vol] 9.9 mg/dL High 0.0-1.9 [facility] Comment on above: Performed By: #### B MARTHA HSIEH, 86110-4, PINR #### [facility] ([id number]) [address] [place] [address] 87217 MALB/CREAT RATIO 180.6 mg/g High 0.0-30.0 [facility] Comment on above: Performed By: #### B MARTHA HSIEH, 89596-7, PINR #### [facility] ([id number]) [address] [place] [address] 03423 URINE CREATININE,RDM 54.83 mg/dL Normal [facility] Comment on above: Performed By: #### B MARTHA HSIEH, 90536-2, PINR #### [facility] ([id number]) [address] [place] [address] 74450 PARATHYROID HORMOME, INTACTo n 02-13-2025 PTH INTACT 75 pg/mL Normal 12-88 [facility] Comment on above: Performed By: #### B MARTHA HSIEH, 74761-8, PINR #### [facility] ([id number]) [address] [place] [address] 67737 PHOSPHORUSon 02-13-2025 Phosphate [Mass/Vol] 3.5 mg/dL Normal 2.4-4.9 [facility] Comment on above: Performed By: #### B MP, CBCA, 94126-0, PINR #### [facility] ([id number]) [address] [place] [address] 70614 URIC ACIDon 02-13-2025 Urate [Mass/Vol] 6.2 mg/dL Normal 2.6-7.2 [facility] Comment on above: Performed By: #### B MP, CBCA, 86278-2, PINR #### [facility] ([id number]) [address] [place] [address], [place] [address] URINALYSISon 02-13-2025 Bilirubin Ql (U) Negative Normal Negative [facility] Comment on above: Performed By: #### B MP, CBCA, 80945-7, PINR #### [facility] ([id number]) [address] [place] [address] [place] [address] BLOOD/HGB Negative Normal Negative [facility] Comment on above: Performed By: #### B MP, CBCA, 10170-1, PINR #### [facility] ([id number]) [address] [place] [address], [place] [address] Color (U) Yellow Normal Yellow [facility] Comment on above: Performed By: #### B MP, CBCA, 61125-5, PINR #### [facility] ([id number]) [address] [place] [address], [place] [address] Glucose Ql (U) >1000 mg/dL Abnormal Negative [facility] Comment on above: Performed By: #### B MP, CBCA, 93682-7, PINR #### [facility] ([id number]) [address] [place] [address], [place] [address] Ketones Ql (U) Negative Normal Negative [facility] Comment on above: Performed By: #### B MP, CBCA, 30371-7, PINR #### [facility] ([id number]) [address] [place] [address] 65323 Leukocyte esterase Test strip Ql (U) Small Abnormal Negative [facility] Comment on above: Result Comment: High Concentrations of Glucose May Decrease the Reactivity of the Dipstick Leukocyte Test Pad. Performed By: #### B МАРИЯ, CBCA, 19537-7, PINR #### [facility] ([id number]) [address] [place] [address] [place] [address] MUCOUS Present Abnormal None [facility] Comment on above: Performed By: #### B MP, CBCA, 80154-8, PINR #### [facility] ([id number]) [address] [place] [address] 18111 Nitrite Ql (U) Positive Abnormal Negative [facility] Comment on above: Performed By: #### B МАРИЯ, CBCA, 12768-8, PINR #### [facility] ([id number]) [address] [place] [address] 72064 PH,URINE 5.5 Normal 5.0-8.5 [facility] Comment on above: Performed By: #### B МАРИЯ, CBCA, 91699-2, PINR #### [facility] ([id number]) [address] [place] [address] 98529 Protein Ql (U) Trace Abnormal Negative [facility] Comment on above: Performed By: #### B MP, CBCA, 94203-7, PINR #### [facility] ([id number]) [address] [place] [address] [place] [address] R.B.CELLS 3 Normal 0-5 [facility] Comment on above: Performed By: #### B МАРИЯ, CBCA, 01769-5, PINR #### [facility] ([id number]) [address] [place] [address] 87127 Specific gravity (U) [Rel density] 1.031 Normal 1.003-1.035 [facility] Comment on above: Performed By: #### B MP, CBCA, 43444-1, PINR #### [facility] ([id number]) [address] [place] [address] 92556 TURBIDITY Clear Normal Clear [facility] Comment on above: Performed By: #### B MP, CBCA, 40176-5, PINR #### [facility] ([id number]) [address] [place] [address] 49815 UROBILINOGEN <1.1 eu/dL Normal <1.1 eu/dL [facility] Comment on above: Performed By: #### B MP, CBCA, 51671-5, PINR #### [facility] ([id number]) [address] [place] [address] 20178 W.B.CELLS 9 High 0-5 [facility] Comment on above: Performed By: #### B MP, CBCA, 70497-7, PINR #### [facility] ([id number]) [address] [place] [address] 67214 VITAMIN D 25 HYDROXYon 02-13 VITAMIN D 25 HYD TOT 36.6 ng/mL Normal 30.0-100.0 [facility] Comment on above: Order Comment: Vitam in D status 25 [place] Vitamin D Deficiency <20 ng/mLInsufficiency 20-29 ng/mLSufficiency 30-100 ng/mLToxicity >100 ng/mLNOTE: A pediatric reference range has not been established by the survey operations director of this kit. The [place] [employer] recommends a Vitamin D level of = or >20ng/mL in infants and children. Performed By: #### B MP, CBCA, 06703-0, PINR #### [facility] ([id number]) [address] [place] [address] 08290 US RETROPERITONEAL COMPLETEo n 01-06-2025 US RETROPERITONEAL [...] Luevano MD on 01/06/2025 2:08 PM Normal [facility] BEDSIDE GLUCOSEon 11-14-2024 Glucose [Mass/Vol] 249 mg/dL High 65-99 [facility] Comment on above: Performed By: #### B MP, CBCA, 33774-0, PINR #### [facility] ([id number]) [address] [place] [address] 59943 CBC WITH AUTO DIFFERENTIALon 11-14-2024 BASOPHILS ABSOLUTE COUNT (10*3/UL) BY AUTOMATED COUNT 0.1 10*3/uL Normal 0.0-0.2 [facility] Comment on above: Performed By: #### B MP, CBCA, 27031-2, PINR #### [facility] ([id number]) [address] [place] [address] 72199 BASOPHILS RELATIVE PERCENT BY AUTOMATED COUNT 0.6 % Normal [facility] Comment on above: Performed By: #### B MP, CBCA, 40172-2, PINR #### [facility] ([id number]) [address] [place] [address] 21302 CELLAVISION DIFFERENTIAL TYPE AUTOMATED DIFFERENTIAL Normal [facility] Comment on above: Performed By: #### B MP, CBCA, 76576-8, PINR #### [facility] ([id number]) [address] [place] [address] 09057 Eosinophils (Bld) [#/Vol] 0.0 10*3/uL Normal 0.0-0.4 [facility] Comment on above: Performed By: #### B MP, CBCA, 37281-9, PINR #### [facility] ([id number]) [address] [place] [address] 17855 EOSINOPHILS RELATIVE PERCENT BY AUTOMATED COUNT 0.2 % Normal [facility] Comment on above: Performed By: #### B MP, CBCA, 42500-6, PINR #### [facility] ([id number]) [address] [place] [address] 38066 Erythrocyte distribution width (RBC) [Ratio] 16.3 % High 11.5-15 [facility] Comment on above: Performed By: #### B MP, CBCA, 38989-4, PINR #### [facility] ([id number]) [address] [place] [address] 59124 Hematocrit (Bld) [Volume fraction] 34.6 % Low 39-50 [facility] Comment on above: Performed By: #### B MP, CBCA, 56817-3, PINR #### [facility] ([id number]) [address] [place] [address] 03981 Hemoglobin (Bld) [Mass/Vol] 11.4 g/dL Low 13-17 [facility] Comment on above: Performed By: #### B MP, CBCA, 64380-1, PINR #### [facility] ([id number]) [address] [place] [address] 61494 LYMPHOCYTES ABSOLUTE COUNT (10*3/UL) BY AUTOMATED COUNT 1.5 10*3/uL Normal 1.0-3.5 [facility] Comment on above: Performed By: #### B MP, CBCA, 31346-9, PINR #### [facility] ([id number]) [address] [place] [address] 40406 LYMPHOCYTES RELATIVE PERCENT BY AUTOMATED COUNT 16.3 % Normal [facility] Comment on above: Performed By: #### B MP, CBCA, 87896-2, PINR #### [facility] ([id number]) [address] [place] [address] 94896 MCH (RBC) [Entitic mass] 29.6 pg Normal 27-34 [facility] Comment on above: Performed By: #### B MP, CBCA, 98347-0, PINR #### [facility] ([id number]) [address] [place] [address] 21976 MCHC (RBC) [Mass/Vol] 32.9 g/dL Normal 32-36 [facility] Comment on above: Performed By: #### B MP, CBCA, 88736-3, PINR #### [facility] ([id number]) [address] [place] [address] 78652 MCV (RBC) [Entitic vol] 90 fL Normal 80-100 [facility] Comment on above: Performed By: #### B MP, CBCA, 62810-6, PINR #### [facility] ([id number]) [address] [place] [address] 16034 MONOCYTES ABSOLUTE COUNT (10*3/UL) BY AUTOMATED COUNT 1.1 10*3/uL High 0.0-0.9 [facility] Comment on above: Performed By: #### B MP, CBCA, 76819-8, PINR #### [facility] ([id number]) [address] [place] [address] 75376 MONOCYTES RELATIVE PERCENT BY AUTOMATED COUNT 12.7 % Normal [facility] Comment on above: Performed By: #### B MP, CBCA, 36729-8, PINR #### [facility] ([id number]) [address] [place] [address] 10203 NEUTROPHILS ABSOLUTE COUNT BY AUTOMATED COUNT 6.4 10*3/uL Normal 1.5-6.6 [facility] Comment on above: Performed By: #### B MP, CBCA, 67401-5, PINR #### [facility] ([id number]) [address] [place] [address] 97805 NEUTROPHILS RELATIVE PERCENT BY AUTOMATED COUNT 70.2 % Normal [facility] Comment on above: Performed By: #### B MP, CBCA, 37669-9, PINR #### [facility] ([id number]) [address] [place] [address] 47173 Platelet mean volume (Bld) [Entitic vol] 7.6 fL Normal 7-12 [facility] Comment on above: Performed By: #### B MP, CBCA, 10762-8, PINR #### [facility] ([id number]) [address] [place] [address] 70019 Platelets (Bld) [#/Vol] 305 10*3/uL Normal 150-450 [facility] Comment on above: Performed By: #### B MP, CBCA, 97546-8, PINR #### [facility] ([id number]) [address] [place] [address] 38680 RBC COUNT 3.85 X10E12/L Low 4.1-5.7 [facility] Comment on above: Performed By: #### B MP, CBCA, 18381-4, PINR #### [facility] ([id number]) [address] [place] [address] 17881 WBC (Bld) [#/Vol] 9.0 10*3/uL Normal 4-11 [facility] Comment on above: Performed By: #### B MP, CBCA, 17943-6, PINR #### [facility] ([id number]) [address] [place] [address] 32860 COMPREHENSIVE METABOLIC PANE [facility] 11-14-2024 Albumin [Mass/Vol] 3.9 g/dL Normal 3.2-5.3 [facility] Comment on above: Performed By: #### B MP, CBCA, 33147-2, PINR #### [facility] ([id number]) [address] [place] [address] 88424 ALP [Catalytic activity/Vol] 43 U/L Normal 39-130 [facility] Comment on above: Performed By: #### B MP, CBCA, 94986-1, PINR #### [facility] ([id number]) [address] [place] [address] 25853 ALT [Catalytic activity/Vol] 11 U/L Normal <=40 [facility] Comment on above: Performed By: #### B MP, CBCA, 93130-9, PINR #### [facility] ([id number]) [address] [place] [address] [id number] Anion gap [Moles/Vol] 10 mmol/L Normal 5-15 [facility] Comment on above: Performed By: #### B MP, CBCA, 22068-2, PINR #### [facility] ([id number]) [address] [place] [address] [id number] AST [Catalytic activity/Vol] 19 U/L Normal <=41 [facility] Comment on above: Performed By: #### B MP, CBCA, 35979-6, PINR #### [facility] ([id number]) [address] [place], [place] [address] 88381 Bilirubin [Mass/Vol] 0.5 mg/dL Normal 0.3-1.2 [facility] Comment on above: Performed By: #### B МАРИЯ, CBCA, 73535-5, PINR #### [facility] ([id number]) [address] [place] [address] 41436 Calcium [Mass/Vol] 8.8 mg/dL Normal 8.5-10.5 [facility] Comment on above: Performed By: #### B МАРИЯ, CBCA, 72178-4, PINR #### [facility] ([id number]) [address] [place] [address] 56522 Chloride [Moles/Vol] 100 mmol/L Normal 98-109 [facility] Comment on above: Performed By: #### B МАРИЯ, CBCA, 21580-3, PINR #### [facility] ([id number]) [address] [place] [address] 09125 CO2 [Moles/Vol] 24 mmol/L Normal 22-32 [facility] Comment on above: Performed By: #### B МАРИЯ, CBCA, 56219-2, PINR #### [facility] ([id number]) [address] [place] [address] 47312 Creatinine [Mass/Vol] 1.49 mg/dL High 0.70-1.20 [facility] Comment on above: Result Comment: METH OD TRACEABLE TO IDMS STANDARD Performed By: #### B МАРИЯ, CBCA, 92958-7, PINR #### [facility] ([id number]) [address] [place] [address] 73578 GFR/1.73 sq M.predicted among non-blacks MDRD (S/P/Bld) [Vol rate/Area] 50 mL/min/{1.73_m2} Low >=60 [facility] Comment on above: Result Comment: eGFR not reported due to non-numeric value for Creatinine. Reported eGFR is based on the CKD-EPI 2021 equation that does not use a race coefficient. Performed By: #### B МАРИЯ, GRETCHENA, 52263-9, PINR #### [facility] ([id number]) [address] [place] [address] 68125 Glucose [Mass/Vol] 246 mg/dL High 65-99 [facility] Comment on above: Performed By: #### B МАРИЯ, CBCA, 20707-1, PINR #### [facility] ([id number]) [address] [place] [address] 94468 Potassium [Moles/Vol] 4.4 mmol/L Normal 3.5-5.0 [facility] Comment on above: Performed By: #### B МАРИЯ, CBCA, 12210-8, PINR #### [facility] ([id number]) [address] [place] [address] 16909 Protein [Mass/Vol] 7.2 g/dL Normal 6.0-8.0 [facility] Comment on above: Performed By: #### B МАРИЯ, CBCA, 99471-4, PINR #### [facility] ([id number]) [address] [place] [address] 24522 Sodium [Moles/Vol] 134 mmol/L Normal 134-146 [facility] Comment on above: Performed By: #### B МАРИЯ, CBCA, 54980-6, PINR #### [facility] ([id number]) [address] [place] [address] 17164 Urea nitrogen [Mass/Vol] 23 mg/dL Normal 5-27 [facility] Comment on above: Performed By: #### B МАРИЯ, CBCA, 98598-6, PINR #### [facility] ([id number]) [address] [place] [address] 82690 D-DIMERon 11-14-2024 D DIMER <^150 Normal 1-255 [facility] Comment on above: Result Comment: Resu lts <255 ng/mL DDU: The presensence of a VTE can safely be excluded with a negative D-Dimer result and Wells score. A negative result doesn't exclude the possibility of DIC. The test should be repeated along with other diagnostic tests if the patient's symptoms persist or worsen. Performed By: #### B MP, CBCA, 84910-9, PINR #### [facility] ([id number]) [address] [place] [address] 43131 LIPASEon 11-14-2024 Lipase [Catalytic activity/Vol] 36 U/L Normal 17-40 [facility] Comment on above: Performed By: #### B MP, CBCA, 14107-2, PINR #### [facility] ([id number]) [address] [place] [address] 11202 MAGNESIUMon 11-14-2024 Magnesium [Mass/Vol] 2.1 mg/dL Normal 1.8-2.6 [facility] Comment on above: Performed By: #### B MP, CBCA, 46370-6, PINR #### [facility] ([id number]) [address] [place] [address] 01426 TROP I, HIGH SENSITIVITY 1 H OURon 11-14-2024 TROPONIN I, HIGH SENSITIVITY 8 ng/L Normal <21 [facility] Comment on above: Performed By: #### B MP, CBCA, 27209-8, PINR #### [facility] ([id number]) [address] [place] [address] 59158 TROPONIN I, HIGH SENSITIVITY 0 HOURon 11-14-2024 TROPONIN I, HIGH SENSITIVITY 7 ng/L Normal <21 [facility] Comment on above: Performed By: #### B MP, CBCA, 21488-2, PINR #### [facility] ([id number]) [address] [place] [address], [place] [address] XR CHEST 1 VWon 11-14-2024 XR CHEST [...] Angulo MD on 11/14/2024 1:19 AM Normal [facility] XR FOOT LT MIN 3 VWSon 11-14 [...] Jaramillo MD on 11/14/2024 1:31 AM Normal [facility] Alex 11-12-2024 L --- Specimen: [id number] Received: 11/13/24 Status: [place]UST[place] Gordon Num: [id number] Spec Type: Surgical Subm Dr: Mariana Gutiérrez,NIKKI, [place] Tissues: A DIGIT AMPUTATION (LEFT FOREFOOT) Procedures: HE/5, Gross/Micro L4, Decalcification Age/ Patient Sex Location Account Attending Physician Tomas Frausto/M LABELL [id number] Mariana Gutiérrez DPM, MS SPEC NUM: [id number] RECD: 11/13/24 STATUS: [place] ANNAMARIA NUM: [id number] EL: 11/12/24-[address] [facility] [address]: Mariana Gutiérrez DPM, MS ENTERED: 11/13/24 [facility] DR: Christy,Lab SPEC TYPE: Surgical DEPT: YANIV HESTER ENTERED BY: [id number] RECV BY: [id number] ORDERED: HE/5, Gross/Micro L4, Decalcification ORDERED: HE/5, [...] end, consistent with a previous resection. Specimen: [id number] Received: 11/13/24 Status: [place] Gordon Num: [id number] Spec Type: Surgical Subm Dr: Mariana Gutiérrez,DPEdvin, MS Tissues: A DIGIT AMPUTATION (LEFT FOREFOOT) Procedures: MALLY/Shayan, Gross/Micro L4, Decalcification Patient: Tomas Frausto [id number] (Continued) Specimen: [id number] Received: 11/13/24 (Continued) Gross Description (Continued) Signed (signature on file) Howie Up MD 11/19/241320 Specimen: [id number] Received: 11/13/24 Status: [place] Gordon Num: [id number] Spec Type: Surgical Subm Dr: Mariana Gutiérrez,NIKKI, MS Tissues: A DIGIT AMPUTATION (LEFT FOREFOOT) Procedures: HE/5, Gross/Micro L4, Decalcification Patient: Tomas Frausto [id number] (Continued) Specimen: [id number] Received: 11/13/24 (Continued) Gross Description (Continued) Cassettes: A1 Tangential sections of proximal skin margin A2 Crusted wound A3 Left third digit crusted area with underlying metatarsal bone, decalcified A4 Discolored soft tissue and underlying left, second proximal phalangeal bone, decalcified A5 Discolored soft tissue and underlying left, first metatarsal bone, decalcified (5, ss, [id number] A)J Microscopic Description Microscopic examination is performed CPT Codes 52347 73273 Specimen: [id number] Received: 11/13/24 Status: [place] Gordon Num: [id number] Spec Type: Surgical Subm Dr: Mariana Gutiérrez DPM, MS Tissues: A DIGIT AMPUTATION (LEFT FOREFOOT) Procedures: HE/5, Gross/Micro L4, Decalcification Patie (more content not included)... Normal [facility] No Panel Informationon 10-02 EDWARD [...] discussed. Consent was given by the patient. [facility] Glucose (Bld) [Mass/Vol]on 0 09-27-2024 Urea nitrogen [Mass/Vol] 19 mg/dL Normal 6-27 [facility] XR KNEE RT 3 VWSon 5 [...] Alfonso MD on 09/13/2024 12:54 PM Normal [facility] Device Interrogationon 09-04 [facility] Radiology Study observation (narrative) [facility] POCT EKGon 09-04-2024 [facility] CBC AND AUTO DIFFon 07-22-19 ABSOLUTE BASOPHIL 0.0 X10E9/L Normal 0.0-0.2 [facility] Comment on above: Performed By: #### B МАРИЯ CBCA, 22899-8, PINR #### [facility] ([id number]) [address] [place] [address] 78432 ABSOLUTE NEUTROPHIL 3.8 X10E9/L Normal 1.5-6.6 [facility] Comment on above: Performed By: #### B MP, CBCA, 96371-2, PINR #### [facility] ([id number]) [address] [place] [address] 74603 Basophils/100 WBC (Bld) 0.8 % Normal [facility] Comment on above: Performed By: #### B MP, CBCA, 36396-8, PINR #### [facility] ([id number]) [address] [place] [address] 41927 Eosinophils (Bld) [#/Vol] 0.0 10*3/uL Normal 0.0-0.4 [facility] Comment on above: Performed By: #### B MP, CBCA, 27308-1, PINR #### [facility] ([id number]) [address] [place] [address] 49960 Eosinophils/100 WBC (Bld) 0.7 % Normal [facility] Comment on above: Performed By: #### B MP, CBCA, 27665-4, PINR #### [facility] ([id number]) [address] [place] [address] 83300 Erythrocyte distribution width (RBC) [Ratio] 14.6 % Normal 11.5-15.0 [facility] Comment on above: Performed By: #### B MP, CBCA, 76794-5, PINR #### [facility] ([id number]) [address] [place] [address] 75342 Hematocrit (Bld) [Volume fraction] 42.0 % Normal 39-49 [facility] Comment on above: Performed By: #### B MP, CBCA, 00170-7, PINR #### [facility] ([id number]) [address] [place] [address] 54995 Hemoglobin (Bld) [Mass/Vol] 13.9 g/dL Normal 13.0-17.0 [facility] Comment on above: Performed By: #### B MP, CBCA, 86409-6, PINR #### [facility] ([id number]) [address] [place] [address] 79375 Lymphocytes (Bld) [#/Vol] 1.5 10*3/uL Normal 1.0-3.5 [facility] Comment on above: Performed By: #### B MP, CBCA, 98425-2, PINR #### [facility] ([id number]) [address] [place] [address] 00479 Lymphocytes/100 WBC (Bld) 24.7 % Normal [facility] Comment on above: Performed By: #### B MP, CBCA, 18690-5, PINR #### [facility] ([id number]) [address] [place] [address] 80995 MCH (RBC) [Entitic mass] 30.7 pg Normal 27-34 [facility] Comment on above: Performed By: #### B MP, CBCA, 75928-0, PINR #### [facility] ([id number]) [address] [place] [address] 47722 MCHC (RBC) [Mass/Vol] 33.0 g/dL Normal 32-36 [facility] Comment on above: Performed By: #### B MP, CBCA, 35043-8, PINR #### [facility] ([id number]) [address] [place] [address] 11213 MCV (RBC) [Entitic vol] 93 fL Normal 80-100 [facility] Comment on above: Performed By: #### B MP, CBCA, 38847-7, PINR #### [facility] ([id number]) [address] [place] [address] 30061 Monocytes (Bld) [#/Vol] 0.6 10*3/uL Normal 0-0.9 [facility] Comment on above: Performed By: #### B MP, CBCA, 55267-6, PINR #### [facility] ([id number]) [address] [place] [address] 51841 Monocytes/100 WBC (Bld) 9.7 % Normal [facility] Comment on above: Performed By: #### B MP, CBCA, 60868-0, PINR #### [facility] ([id number]) [address] [place] [address] 87527 Neutrophils/100 WBC (Bld) 64.1 % Normal [facility] Comment on above: Performed By: #### B MP, CBCA, 61399-9, PINR #### [facility] ([id number]) [address] [place] [address] 47816 Platelet mean volume (Bld) [Entitic vol] 8.2 fL Normal 7-12 [facility] Comment on above: Performed By: #### B MP, CBCA, 92243-6, PINR #### [facility] ([id number]) [address] [place] [address] 97534 Platelets (Bld) [#/Vol] 315 10*3/uL Normal 150-450 [facility] Comment on above: Performed By: #### B MP, CBCA, 90972-2, PINR #### [facility] ([id number]) [address] [place] [address] 41688 RBC COUNT 4.52 X10E12/L Normal 4.10-5.70 [facility] Comment on above: Performed By: #### B MP, CBCA, 36916-1, PINR #### [facility] ([id number]) [address] [place] [address] 79467 WBC (Bld) [#/Vol] 5.9 10*3/uL Normal 4.0-11.0 [facility] Comment on above: Performed By: #### B MP, CBCA, 01627-3, PINR #### [facility] ([id number]) [address] [place] [address] 00805 CRP [Mass/Vol]on 07-22-2024 C REACTIVE PROTEIN 1.9 mg/dL High 0.000-0.744 [facility] Comment on above: Performed By: #### B МАРИЯ, CBCA, 46127-7, PINR #### [facility] ([id number]) [address] [place] [address] 65435 ESR Photometric method (Bld) [Velocity]on 07-22-2024 ESR, ERYTHROCYTE SEDIMENTATION RATE 47 mm/h High 0-20 [facility] Comment on above: Performed By: #### B МАРИЯ, CBCA, 18733-4, PINR #### [facility] ([id number]) [address] [place] [address] 43790 HGB A1C (GLYCO-HGB)on 2024 Glucose [Mass/Vol] 203 mg/dL Normal [facility] Comment on above: Performed By: #### B МАРИЯ, CBCA, 42283-3, PINR #### [facility] ([id number]) [address] [place] [address] 02197 HbA1c (Bld) [Mass fraction] 8.7 % High 4.4-5.6 [facility] Comment on above: Result Comment: NOTE ADA Guidelines Result HgbA1c Normal : less than 5.7 % Prediabetes : 5.7 % to 6.4 % Diabetes : > 6.4 % Use with caution in patients with abnormal hemoglobin variants as the half-life of red blood cells and in vivo glycation rates are affected. Performed By: #### B MP, CBCA, 31836-4, PINR #### [facility] ([id number]) [address] [place] [address] 92514 COMPREHENSIVE METABOLIC PANE Alex 05-09-2024 Albumin [Mass/Vol] 4.2 g/dL Normal 3.2-5.3 [facility] Comment on above: Performed By: #### C МАРИЯ, TSHR #### [facility] ([id number]) [address] [place] [address] #### 96383-5 #### [facility] ([id number]) [address], [address] [place] [address] ALP [Catalytic activity/Vol] 46 U/L Normal 39-130 [facility] Comment on above: Performed By: #### C МАРИЯ, TSHR #### [facility] ([id number]) [address] [place] [address] 22583 #### 83257-5 #### [facility] ([id number]) [address], [address] [place] [address] ALT [Catalytic activity/Vol] 16 U/L Normal 0-40 [facility] Comment on above: Performed By: #### C МАРИЯ TSHR #### [facility] ([id number]) [address] [place] [address] 75963 #### 42505-8 #### [facility] ([id number]) [address], [address] [place] [address] Anion gap [Moles/Vol] 10 mmol/L Normal 5-15 [facility] Comment on above: Performed By: #### Jerry HSIEH TSHR #### [facility] ([id number]) [address] [place] [address] 33850 #### 73871-5 #### [facility] ([id number]) [address], [address] [place] [address] AST [Catalytic activity/Vol] 16 U/L Normal 0-41 [facility] Comment on above: Performed By: #### Jerry HSIEH TSHR #### [facility] ([id number]) [address] [place] [address] 10369 #### 25806-9 #### [facility] ([id number]) [address], [address] [place] [address] Bilirubin [Mass/Vol] 0.5 mg/dL Normal 0.3-1.2 [facility] Comment on above: Performed By: #### Jerry HSIEH, TSHR #### [facility] ([id number]) [address] [place] [address] 56792 #### 01802-6 #### [facility] ([id number]) [address], [address] [place] [address] Calcium [Mass/Vol] 9.3 mg/dL Normal 8.5-10.5 [facility] Comment on above: Performed By: #### Jerry HSIEH TSHR #### [facility] ([id number]) [address] [place] [address] 92366 #### 13922-1 #### [facility] ([id number]) [address], [address] [place] [address] Chloride [Moles/Vol] 99 mmol/L Normal 98-109 [facility] Comment on above: Performed By: #### Jerry HSIEH TSHR #### [facility] ([id number]) [address] [place] [address] 34817 #### 21889-5 #### [facility] ([id number]) [address], [address] [place] [address] CO2 [Moles/Vol] 26 mmol/L Normal 22-32 [facility] Comment on above: Performed By: #### Jerry HSIEH, TSHR #### [facility] ([id number]) [address] [place] [address] 35570 #### 11003-3 #### [facility] ([id number]) [address], [address] [place] [address] Creatinine [Mass/Vol] 1.27 mg/dL High 0.70-1.20 [facility] Comment on above: Result Comment: METH OD TRACEABLE TO IDMS STANDARD Performed By: #### Jerry HSIEH TSHSolitario #### [facility] ([id number]) [address] [place] [address] 79095 #### 97989-8 #### [facility] ([id number]) [address], [address] [place] [address] GFR/1.73 sq M.predicted among non-blacks MDRD (S/P/Bld) [Vol rate/Area] 61 mL/min/{1.73_m2} Normal >59 [facility] Comment on above: Result Comment: Reported eGFR is based on the CKD-EPI 2020 equation that does not use a race coefficient. Performed By: #### NURIA Edwards MP #### [facility] ([id number]) [address] [place] [address] 80199 #### 74657-5 #### [facility] ([id number]) [address], [address] [place] [address] Glucose [Mass/Vol] 177 mg/dL High 65-99 [facility] Comment on above: Performed By: #### Jerry HSIEH TSHR #### [facility] ([id number]) [address] [place] [address] 82211 #### 57942-1 #### [facility] ([id number]) [address], [address] [place] [address] Potassium [Moles/Vol] 4.5 mmol/L Normal 3.5-5.0 [facility] Comment on above: Performed By: #### Jerry HSIEH TSHSolitario #### [facility] ([id number]) [address] [place] [address] 03415 #### 59032-8 #### [facility] ([id number]) [address], [address] [place] [address] Protein [Mass/Vol] 7.6 g/dL Normal 6.0-8.0 [facility] Comment on above: Performed By: #### C МАРИЯ, TSHR #### [facility] ([id number]) [address] [place] [address] 64662 #### 28275-7 #### [facility] ([id number]) [address], [address] [place] [address] Sodium [Moles/Vol] 135 mmol/L Normal 134-146 [facility] Comment on above: Performed By: #### C МАРИЯ, TSHR #### [facility] ([id number]) [address] [place] [address] 98266 #### 48274-7 #### [facility] ([id number]) [address], [address] [place] [address] Urea nitrogen [Mass/Vol] 24 mg/dL Normal 5-27 [facility] Comment on above: Performed By: #### C МАРИЯ, TSHR #### [facility] ([id number]) [address] [place] [address] 96722 #### 09619-7 #### [facility] ([id number]) [address], [address] [place] [address] Lipid 1996 panelon 4 Cholesterol [Mass/Vol] 137 mg/dL Low 150-200 [facility] Comment on above: Performed By: #### B MP, CBCA, 24053-9, PINR #### [facility] ([id number]) [address] [place] [address] 09116 Cholesterol in HDL [Mass/Vol] 32 mg/dL Low >39 [facility] Comment on above: Result Comment: HDL <40 mg/dL - High Risk HDL > or = 40mg/dL- Desirable HDL >60 mg/dL - Negative Risk Performed By: #### B МАРИЯ, CBCA, 89543-2, PINR #### [facility] ([id number]) [address] [place] [address] 34799 Cholesterol in LDL [Mass/Vol] 50 mg/dL Normal <130 [facility] Comment on above: Result Comment: LDL <100 mg/dL - Desirable LDL >160 mg/dL - High Risk Performed By: #### B МАРИЯ, CBCA, 25030-3, PINR #### [facility] ([id number]) [address] [place] [address] 90887 Cholesterol in VLDL [Mass/Vol] 55 mg/dL High 0-30 [facility] Comment on above: Performed By: #### B МАРИЯ, CBCA, 50676-9, PINR #### [facility] ([id number]) [address] [place] [address] 94671 CHOLESTEROL:HDL 4.3 Normal 1.0-5.0 [facility] Comment on above: Performed By: #### B МАРИЯ, CBCA, 36821-7, PINR #### [facility] ([id number]) [address] [place] [address] 41865 Triglyceride [Mass/Vol] 275 mg/dL High 27-150 [facility] Comment on above: Performed By: #### B МАРИЯ, CBCA, 58342-7, PINR #### [facility] ([id number]) [address] [place] [address] 00857 TSH WITH REFLEXon 05-09-2024 TSH 4.67 uIU/mL Normal 0.49-4.67 [facility] Comment on above: Performed By: #### C MP, TSHR #### [facility] ([id number]) [address] [place] [address] [id number] #### 69761-8 #### [facility] ([id number]) [address], [address] [place] [address] BASIC METABOLIC PANLon 04-16 Anion gap [Moles/Vol] 10 mmol/L Normal 5-15 [facility] Comment on above: Performed By: #### B MP, CBCA, 92810-6, PINR #### [facility] ([id number]) [address] [place] [address] [id number] Calcium [Mass/Vol] 9.3 mg/dL Normal 8.5-10.5 [facility] Comment on above: Performed By: #### B MP, CBCA, 71267-4, PINR #### [facility] ([id number]) [address] [place] [address] 51085 Chloride [Moles/Vol] 101 mmol/L Normal 98-109 [facility] Comment on above: Performed By: #### B MP, CBCA, 29606-0, PINR #### [facility] ([id number]) [address] [place] [address] 05780 CO2 [Moles/Vol] 27 mmol/L Normal 22-32 [facility] Comment on above: Performed By: #### B MP, CBCA, 48111-6, PINR #### [facility] ([id number]) [address] [place] [address] 00077 Creatinine [Mass/Vol] 1.19 mg/dL Normal 0.70-1.20 [facility] Comment on above: Result Comment: METH OD TRACEABLE TO IDMS STANDARD Performed By: #### B MP, CBCA, 38006-4, PINR #### [facility] ([id number]) [address] [place] [id number] GFR/1.73 sq M.predicted among non-blacks MDRD (S/P/Bld) [Vol rate/Area] 66 mL/min/{1.73_m2} Normal >59 [facility] Comment on above: Result Comment: Reported eGFR is based on the CKD-EPI 1 equation that does not use a race coefficient. Performed By: #### B МАРИЯ, CBCA, 71743-6, PINR #### [facility] ([id number]) [address] [place] [address] 27696 Glucose [Mass/Vol] 165 mg/dL High 65-99 [facility] Comment on above: Performed By: #### B МАРИЯ, CBCA, 28246-1, PINR #### [facility] ([id number]) [address] [place] [address] 79652 Potassium [Moles/Vol] 4.2 mmol/L Normal 3.5-5.0 [facility] Comment on above: Performed By: #### B МАРИЯ, CBCA, 99926-0, PINR #### [facility] ([id number]) [address] [place] [address] 33686 Sodium [Moles/Vol] 138 mmol/L Normal 134-146 [facility] Comment on above: Performed By: #### B МАРИЯ, CBCA, 48622-0, PINR #### [facility] ([id number]) [address] [place] [address] 93151 Urea nitrogen [Mass/Vol] 17 mg/dL Normal 5-27 [facility] Comment on above: Performed By: #### B МАРИЯ, CBCA, 41925-5, PINR #### [facility] ([id number]) [address] [place] [address] 69497 CBC AND AUTO DIFFon 10-15-20 24 ABSOLUTE BASOPHIL 0.0 X10E9/L Normal 0.0-0.2 [facility] Comment on above: Performed By: #### B MP, CBCA, 19731-6, PINR #### [facility] ([id number]) [address] [place] [address] 25658 ABSOLUTE NEUTROPHIL 4.0 X10E9/L Normal 1.5-6.6 [facility] Comment on above: Performed By: #### B MP, CBCA, 96476-9, PINR #### [facility] ([id number]) [address] [place] [address] 16334 Basophils/100 WBC (Bld) 0.5 % Normal [facility] Comment on above: Performed By: #### B MP, CBCA, 38360-9, PINR #### [facility] ([id number]) [address] [place] [address] 02470 Eosinophils (Bld) [#/Vol] 0.0 10*3/uL Normal 0.0-0.4 [facility] Comment on above: Performed By: #### B MP, CBCA, 96750-1, PINR #### [facility] ([id number]) [address] [place] [address] 06279 Eosinophils/100 WBC (Bld) 0.4 % Normal [facility] Comment on above: Performed By: #### B MP, CBCA, 29032-9, PINR #### [facility] ([id number]) [address] [place] [address] 10387 Erythrocyte distribution width (RBC) [Ratio] 15.7 % High 11.5-15.0 [facility] Comment on above: Performed By: #### B MP, CBCA, 43203-1, PINR #### [facility] ([id number]) [address] [place] [address] 09323 Hematocrit (Bld) [Volume fraction] 39.9 % Normal 39-49 [facility] Comment on above: Performed By: #### B MP, CBCA, 50633-6, PINR #### [facility] ([id number]) [address] [place] [address] 78867 Hemoglobin (Bld) [Mass/Vol] 13.1 g/dL Normal 13.0-17.0 [facility] Comment on above: Performed By: #### B MP, CBCA, 76099-5, PINR #### [facility] ([id number]) [address] [place] [address] 45896 Lymphocytes (Bld) [#/Vol] 1.1 10*3/uL Normal 1.0-3.5 [facility] Comment on above: Performed By: #### B MP, CBCA, 92962-3, PINR #### [facility] ([id number]) [address] [place] [address] 73697 Lymphocytes/100 WBC (Bld) 18.2 % Normal [facility] Comment on above: Performed By: #### B MP, CBCA, 24175-7, PINR #### [facility] ([id number]) [address] [place] [address] 45438 MCH (RBC) [Entitic mass] 30.6 pg Normal 27-34 [facility] Comment on above: Performed By: #### B МАРИЯ, CBCA, 46101-3, PINR #### [facility] ([id number]) [address] [place] [address] 91031 MCHC (RBC) [Mass/Vol] 32.8 g/dL Normal 32-36 [facility] Comment on above: Performed By: #### B MP, CBCA, 20335-7, PINR #### [facility] ([id number]) [address] [place] [address] 43110 MCV (RBC) [Entitic vol] 93 fL Normal 80-100 [facility] Comment on above: Performed By: #### B MP, CBCA, 15483-7, PINR #### [facility] ([id number]) [address] [place] [address] 89868 Monocytes (Bld) [#/Vol] 0.8 10*3/uL Normal 0-0.9 [facility] Comment on above: Performed By: #### B MP, CBCA, 15126-7, PINR #### [facility] ([id number]) [address] [place] [address] 25831 Monocytes/100 WBC (Bld) 13.5 % Normal [facility] Comment on above: Performed By: #### B MP, CBCA, 23538-3, PINR #### [facility] ([id number]) [address] [place] [address] 37001 Neutrophils/100 WBC (Bld) 67.4 % Normal [facility] Comment on above: Performed By: #### B MP, CBCA, 36892-8, PINR #### [facility] ([id number]) [address] [place] [address] 38771 Platelet mean volume (Bld) [Entitic vol] 7.4 fL Normal 7-12 [facility] Comment on above: Performed By: #### B MP, CBCA, 71690-4, PINR #### [facility] ([id number]) [address] [place] [address] 04014 Platelets (Bld) [#/Vol] 284 10*3/uL Normal 150-450 [facility] Comment on above: Performed By: #### B MP, CBCA, 99613-5, PINR #### [facility] ([id number]) [address] [place] [address] 47533 RBC COUNT 4.27 X10E12/L Normal 4.10-5.70 [facility] Comment on above: Performed By: #### B MP, CBCA, 29992-2, PINR #### [facility] ([id number]) [address] [place] [address] WBC (Bld) [#/Vol] 5.9 10*3/uL Normal 4.0-11.0 [facility] Comment on above: Performed By: #### B MP, CBCA, 75628-7, PINR #### [facility] ([id number]) [address] [place] [address] BRAIN WO CONTon CT BRAIN WO [...] Avila DO on 04/16/2024 2:16 PM Normal [facility] CT CERVICAL SPINE WO CONTon [...] Avila DO on 04/16/2024 2:24 PM Normal [facility] CT FACIAL BONES WO CONTon [...] Morris Lau on 04/16/2024 2:30 PM Normal [facility] PROTIME AND INRon 04-16-2024 INR Coag (PPP) [Relative time] 2.1 {INR} High 0.8-1.1 [facility] Comment on above: Performed By: #### B MARTHA HSIEH, 10039-7, PINR #### [facility] ([id number]) [address] [place] [address] 18181 PT Coag (PPP) [Time] 23.7 s High 9.8-13.2 [facility] Comment on above: Result Comment: NEW REFERENCE RANGE Performed By: #### B МАРИЯ CBCA, 08355-8, PINR #### [facility] ([id number]) [address] [place] [address] 45009 aPTT Coag (PPP) [Time]on aPTT Coag (Bld) [Time] 48 s High 26-37 [facility] Comment on above: Result Comment: NEW REFERENCE RANGE Performed By: #### B MP, CBCA, 47002-4, PINR #### [facility] ([id number]) [address] [place] [address], [place] [address] MR LUMBAR SPINE WO CONTon MR LUMBAR [...] Stephens MD on 04/01/2024 10:47 PM Normal [facility] Vital Signs Date Time Vital Sign Value Performing Clinician Facility 01-09-2025 13:25-0400 Body height 175.3 cm Edilson Guzman DPM Work Phone: [facility] 01-09-2025 13:25-0400 Body mass index (BMI) [Ratio] 26.58 kg/m2 Edilson Guzman DPM Work Phone: [facility] 01-09-2025 13:25-0400 Body weight 81.65 kg Edilson Guzman DPM Work Phone: [facility] 10-10-2024 10:53-0400 Body height 175.3 cm Gretta Whitlock MD Work Phone: [facility] 10-10-2024 10:53-0400 Body mass index (BMI) [Ratio] 26.58 kg/m2 Gretta Whitlock MD Work Phone: [facility] 10-10-2024 10:53-0400 Body weight 81.65 kg Gretta Whitlock MD Work Phone: [facility] 10-10-2024 10:53-0400 Diastolic blood pressure 72 mm[Hg] Gretta Whitlock MD Work Phone: [facility] 10-10-2024 10:53-0400 Heart rate 59 /min Gretta Whitlock MD Work Phone: [facility] 10-10-2024 10:53-0400 SaO2% (BldA) [Mass fraction] 99 % Gretta Whitlock MD Work Phone: [facility] 10-10-2024 10:53-0400 Systolic blood pressure 126 mm[Hg] Gretta Whitlock MD Work Phone: [facility] 10-04-2024 11:29-0400 Body height 175.3 cm Edilson Guzman DPM Work Phone: [facility] 10-04-2024 11:29-0400 Body mass index (BMI) [Ratio] 26.58 kg/m2 Edilson Guzman DPM Work Phone: [facility] 10-04-2024 11:29-0400 Body temperature 97.7 [degF] Edilson Megan DPM Work Phone: [facility] 10-04-2024 11:29-0400 Body weight 81.65 kg Edilson Lockett DPM Work Phone: [facility] 10-02-2024 13:11-0400 Body height 175.3 cm Bebeto LEON Work Phone: [facility] 10-02-2024 13:11-0400 Body mass index (BMI) [Ratio] 26.58 kg/m2 Bebeto Beard PA Work Phone: [facility] 10-02-2024 13:11-0400 Body weight 81.65 kg Bebeto Beard PA Work Phone: [facility] 09-26-2024 09:37-0400 Body height 175.3 cm Gretta Whitlock MD Work Phone: [facility] 09-26-2024 09:37-0400 Body mass index (BMI) [Ratio] 26.58 kg/m2 Gretta Whitlock MD Work Phone: [facility] 09-26-2024 09:37-0400 Body temperature 97.7 [degF] Gretta Whitlock MD Work Phone: [facility] 09-26-2024 09:37-0400 Body weight 81.65 kg Gretta Whitlock MD Work Phone: [facility] 09-26-2024 09:37-0400 Diastolic blood pressure 80 mm[Hg] Gretta Whitlock MD Work Phone: [facility] [employer] [facility] 09-26-2024 09:37-0400 Heart rate 60 /min Gretta Whitlock MD Work Phone: [facility] [employer] [facility] 09-26-2024 09:37-0400 SaO2% (BldA) [Mass fraction] 98 % Gretta Whitlock MD Work Phone: [facility] [employer] [facility] 09-26-2024 09:37-0400 Systolic blood pressure 130 mm[Hg] Gretta Whitlock MD Work Phone: [facility] [employer] [facility] 09-04-2024 12:58-0500 Body height 175.3 cm Vandana Brar [employer]CH[employer] Work Phone: [facility] [employer] [facility] 09-04-2024 12:58-0500 Body mass index (BMI) [Ratio] 27.02 kg/m2 Vandana Brar [employer]CH[employer] Work Phone: [facility] [employer] [facility] 09-04-2024 12:58-0500 Body weight 83.01 kg Vandana Brar [employer]CH[employer]ECT Work Phone: [facility] 09-04-2024 12:58-0500 Diastolic blood pressure 72 mm[Hg] Vandana Brar [employer]LED[employer] ARCHITECT Work Phone: [facility] [employer] [facility] 09-04-2024 12:58-0500 Heart rate 54 /min Vandana Valdovinosley [employer]LED[employer] ARCHITECT Work Phone: [facility] [employer] [facility] 09-04-2024 12:58-0500 SaO2% (BldA) [Mass fraction] 97 % Vandana Brar [employer] ARCHITECT Work Phone: [facility] 09-04-2024 12:58-0500 Systolic blood pressure 120 mm[Hg] Vandana Valdovinosley [employer]CH[employer] Work Phone: [facility] [employer] [facility] 05-23-2024 11:55-0500 Diastolic blood pressure 73 mm[Hg] Bebeto LEON Work Phone: [facility] [employer] [facility] 05-23-2024 11:55-0500 Heart rate 71 /min [facility] Nienberg [facility] 05-23-2024 11:55-0500 Respiratory rate 20 /min Bebeto Nienberg PA Work Phone: [facility] [employer] [facility] 05-23-2024 11:55-0500 SaO2% (BldA) [Mass fraction] 100 % Bebeto Nienberg PA Work Phone: [facility] [employer] [facility] 05-23-2024 11:55-0500 Systolic blood pressure 145 mm[Hg] Bebeto Nienberg PA [facility] 04-09-2024 10:12-0400 Body height 175.3 cm Bebeto Nienberg PA Work Phone: [facility] [employer] [facility] Comment on above: stated 04-09-2024 10:12-0400 Body mass index (BMI) [Ratio] 27.62 kg/m2 Bebeto Nienberg PA Work Phone: [facility] [employer] [facility] 04-09-2024 10:12-0400 Body weight 84.82 kg Bebeto Nienberg PA Work Phone: [facility] 04-09-2024 10:12-0400 Diastolic blood pressure 97 mm[Hg] Bebeto Nienberg PA Work Phone: [facility] 04-09-2024 10:12-0400 Heart rate 63 /min Bebeto Nienberg PA Work Phone: [facility] [employer] [facility] 04-09-2024 10:12-0400 Respiratory rate 16 /min Bebeto Nienberg PA [facility] 04-09-2024 10:12-0400 SaO2% (BldA) [Mass fraction] 100 % Bebeto Nienberg PA Work Phone: [facility] [employer] [facility] 04-09-2024 10:12-0400 Systolic blood pressure 141 mm[Hg] Bebeto Nienberg PA [facility] 02-22-2024 13:29-0400 Body height 175.3 cm Bebeto Nienberg PA Work Phone: [facility] 02-22-2024 13:29-0400 Body mass index (BMI) [Ratio] 26.73 kg/m2 Bebeto Nienberg PA Work Phone: [facility] [employer] [facility] 02-22-2024 13:29-0400 Body weight 82.1 kg Bebeto Nienberg PA Work Phone: [facility] [employer] [facility] 02-22-2024 13:29-0400 Diastolic blood pressure 79 mm[Hg] Bebeto Nienberg PA Work Phone: [facility] [employer] [facility] 02-22-2024 13:29-0400 Heart rate 65 /min Bebeto Nienberg PA Work Phone: [facility] [employer] [facility] 02-22-2024 13:29-0400 SaO2% (BldA) [Mass fraction] 99 % Bebeto Nienberg PA Work Phone: [facility] [employer] [facility] 02-22-2024 13:29-0400 Systolic blood pressure 115 mm[Hg] Bebeto Nienberg PA Work Phone: [facility] [employer] [facility] 01-09-2024 12:23-0400 Body height 175.3 cm Bebeto Nienberg PA Work Phone: [facility] [employer] [facility] 01-09-2024 12:23-0400 Body mass index (BMI) [Ratio] 27.02 kg/m2 Bebeto Nienberg PA Work Phone: [facility] [employer] [facility] 01-09-2024 12:23-0400 Body weight 83.01 kg Bebeto Nienberg PA Work Phone: [facility] [employer] [facility] 01-09-2024 12:23-0400 Diastolic blood pressure 84 mm[Hg] Bebeto Nienberg PA Work Phone: [facility] [employer] [facility] 01-09-2024 12:23-0400 Heart rate 65 /min Bebeto Nienberg PA Work Phone: [facility] [employer] [facility] 01-09-2024 12:23-0400 Respiratory rate 16 /min Bebeto LEON Work Phone: [facility] 01-09-2024 12:23-0400 SaO2% (BldA) [Mass fraction] 98 % Bebeto LEON Work Phone: [facility] 01-09-2024 12:23-0400 Systolic blood pressure 142 mm[Hg] Bebeto LEON Work Phone: [facility] Encounters Encounter Date Encounter Type Care Provider Facility Start: 03-11-2025 End: 03-11-2025 Office outpatient visit 15 minutes Edilson Guzman DPM Work Phone: [facility] Comment on above: Diabetic ulcer of to e associated with type 2 diabetes mellitus, with fat layer exposed, unspecified laterality (HCC) (Primary Dx); Status post partial amputation of left foot (HCC); Angiopathy, diabetic (HCC); Diabetic polyneuropathy associated with type 2 diabetes mellitus (HCC) Start: 03-11-2025 End: 03-11-2025 Bamboo flowsheet Edilson Guzman DPM Work Phone: [facility] Start: 03-11-2025 End: 03-11-2025 Bamboo flowsheet Edilson Guzman DPM Work Phone: [facility] Start: 03-11-2025 End: 03-11-2025 ambulatory EDILSON GUZMAN Not Available Start: 02-13-2025 ambulatory [facility] Start: 01-09-2025 End: 01-09-2025 Bamboo flowsheet Edilson Guzman DPM Work Phone: [facility] Start: 01-09-2025 End: 01-09-2025 Bamboo flowsheet Edilson Guzman DPM Work Phone: [facility] Start: 01-09-2025 End: 01-09-2025 Patient encounter procedure Edilson Guzman DPM Work Phone: [facility] Comment on above: Dermatophytosis of n ail (Primary Dx); Dystrophic nail; Status post partial amputation of left foot (HCC); Angiopathy, diabetic (HCC); Diabetic polyneuropathy associated with type 2 diabetes mellitus (HCC) Start: 01-09-2025 End: 01-09-2025 ambulatory EDILSON GUZMAN Not Available Start: 01-01-2025 End: 01-01-2025 ambulatory SHERINE RAMIRES [facility] Start: 12-19-2024 End: 12-19-2024 Refill Bebeto Espino [employer]CHITECT Work Phone: [facility] Comment on above: Med Refill Start: 11-14-2024 End: 11-14-2024 Emergency department patient visit [facility] Start: 11-12-2024 End: 11-12-2024 ambulatory Mariana Liu [facility] Work Phone: Start: 11-12-2024 End: 11-12-2024 Departed Referred Mariana [facility] DPM Work Phone: [facility] Start: 11-04-2024 End: 11-04-2024 ambulatory [facility] Start: 11-04-2024 End: 11-04-2024 ambulatory [facility] Start: 11-04-2024 Encounter for other preprocedural examination [facility] Start: 10-15-2024 End: 10-21-2024 Telephone encounter Phylicia Torres LPN [facility] Comment on above: Surgical Or Dental C learance Start: 10-10-2024 End: 10-10-2024 Office outpatient visit 15 minutes Gretta Whitlock MD Work Phone: [facility] Comment on above: 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 (CMS-HCC) (Primary Dx) Start: 10-10-2024 End: 10-10-2024 [facility] Start: 10-04-2024 End: 10-04-2024 Bamboo flowsheet Edilson Guzman DPM Work Phone: [facility] Start: 10-04-2024 End: 10-04-2024 Bamboo flowsheet Edilson Guzman DPM Work Phone: [facility] Start: 10-04-2024 End: 10-04-2024 Office outpatient new 45 minutes Edilson Guzman DPM Work Phone: [facility] Comment on above: Paronychia of great toe of right foot (Primary Dx); Angiopathy, diabetic ([facility]); Diabetic polyneuropathy associated with type 2 diabetes mellitus ([facility]); Status post partial amputation of left foot ([facility]) Start: 10-04-2024 End: 10-04-2024 ambulatory EDILSON GUZMAN Not Available Start: 10-02-2024 End: 10-02-2024 Bamboo flowsheet Bebeto LEON Work Phone: [facility] Start: 10-02-2024 End: 10-02-2024 Bamboo flowsheet Bebeto LEON Work Phone: [facility] Start: 10-02-2024 End: 10-02-2024 ambulatory BEBETO BEARD Not Available Start: 10-02-2024 End: 10-02-2024 Office outpatient new 45 minutes Bebeto LEON Work Phone: [facility] Comment on above: Acute pain of right knee (Primary Dx); Arthritis of right knee; Effusion of right knee Start: 09-27-2024 End: 09-27-2024 ambulatory GRETTA WHITLOCK [facility] Start: 09-26-2024 End: 09-26-2024 Office outpatient new 45 minutes Gretta Whitlock MD Work Phone: [facility] Comment on above: 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 ([facility]) (Primary Dx); PVD (peripheral vascular disease) ([facility]) Start: 09-26-2024 End: 09-26-2024 ambulatory GRETTA WHITLOCK [facility] Start: 09-23-2024 End: 09-23-2024 ambulatory VANDANA BRAR [facility] Start: 09-13-2024 End: 09-13-2024 Emergency department patient visit [facility] Start: 09-04-2024 End: 09-04-2024 Office outpatient visit 15 minutes Vandana Brar [employer]LED[employer] ARCHITECT Work Phone: [facility] Comment on above: Ventricular tachycar gaye ([facility]) (Primary Dx); AICD present, double chamber; Encounter for monitoring amiodarone therapy; Paroxysmal atrial fibrillation ([facility]); Typical atrial flutter ([facility]); V-tach ([facility]); Essential hypertension Start: 09-04-2024 End: 09-04-2024 Clinical Support Pm Ppc Pacer [facility] Comment on above: AICD present, double chamber- [employer] (Primary Dx) Start: 09-03-2024 End: 09-03-2024 Telephone encounter Marisela Mcguire CMA [facility] Start: 07-22-2024 End: 07-22[facility]2024 [facility] Start: 07-12-2024 End: 07-22-2024 Refill Liliana Rivera [employer]LED[employer]CHITECT Work Phone: [facility] Comment on above: Med Change Request Start: 05-23-2024 End: 05-23-2024 Refill Bebeto Espino [employer]LED[employer] ARCHITECT Work Phone: [facility] Comment on above: Med Refill Start: 05-23-2024 End: 05-23-2024 Office outpatient visit 15 minutes Bebeto LEON Work Phone: [facility] Comment on above: Lumbosacral 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 (Primary Dx) Start: 05-23-2024 End: 05-23-2024 ambulatory BEBETO S [facility] Start: 05-09-2024 End: 05-09-2024 ambulatory IZZY SAM [facility] Start: 05-03-2024 End: 05-03-2024 ambulatory ALBER HYDE [facility] Start: 04-16-2024 End: 04-16-2024 Emergency department patient visit [facility] Start: 04-09-2024 End: 04-09-2024 Office outpatient visit 25 minutes Bebeto LEON Work Phone: [facility] Comment on above: Lumbosacral 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 (Primary Dx) Start: 04-09-2024 End: 04-09-2024 ambulatory [facility] Start: 04-01-2024 End: 04-01-2024 ambulatory [facility] Start: 02-22-2024 End: 02-22-2024 Office outpatient visit 25 minutes Bebeto LEON Work Phone: [facility] Comment on above: Lumbosacral 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 (Primary Dx); Disc displacement, lumbar; Lumbar radiculopathy, chronic Start: 02-22-2024 End: 02-22-2024 ambulatory [facility] Start: 02-21-2024 End: 02-21-2024 Refill Marsha GILLESPIE Work Phone: [facility] Cardiology Comment on above: Med Refill Start: 01-17-2024 End: 01-17-2024 Telephone encounter Di London CNA [facility] Start: 01-11-2024 End: 01-11-2024 Telephone encounter Mariana Reyez RN [facility] Start: 01-09-2024 End: 01-09-2024 Office outpatient new 30 minutes Bebeto LEON Work Phone: [facility] Comment on above: Lumbar spondylolysis (Primary Dx) Start: 11-14-2022 End: 11-15-2022 ambulatory MARIANA Liu [facility] Facility:H1 Start: 10-24-2022 End: 10-25-2022 ambulatory MARIANA Liu [facility] Facility:H1 Start: 10-03-2022 End: 10-04-2022 ambulatory MARIANA GUTIÉRREZ Facility:H1 Start: 09-12-2022 End: 09-13-2022 ambulatory CHET FOURNIER Facility:H1 Start: 08-23-2022 End: 08-24-2022 ambulatory MARIANA Liu [facility] Facility:H1 Start: 08-16-2022 End: 08-17-2022 ambulatory MARIANA Liu [facility] Facility:H1 Start: 08-09-2022 End: 08-10-2022 ambulatory MARIANA Liu [facility] Facility:H1 Procedures Date Procedure Procedure Detail Performing Clinician Start: 10-02-2024 Arthrocentesis aspir &/inj major jt/bursa w/o us Bebeto LEON Work Phone: Start: 09-04-2024 Ecg routine ecg w/le ast 12 lds w/i&r Vandana Brar [employer] PULVER[employer]ER TENDER-KNOWLEDGE ARCHITECT Work Phone: Start: 09-04-2024 Follow-up visit Follow-up VANDANA BRAR Start: 04-06-2023 Microalbumin [Mass/v olume] in Urine by Test strip Bebeto LEON Work Phone: Plan of Treatment Date Care Activity Detail Author Start: 11-14-2025 Tobacco Screening Tobacco Screening [facility] Start: 11-04-2025 Adult BMI Screening Adult BMI Screen ing [facility] Start: 10-10-2025 Adult BMI Screening Adult BMI Screen ing [facility] Start: 10-10-2025 Tobacco Screening Tobacco Screening [facility] Start: 09-27-2025 Adult BMI Screening Adult BMI Screen ing [facility] Start: 09-27-2025 Tobacco Screening Tobacco Screening [facility] Start: 09-13-2025 Adult BMI Screening Adult BMI Screen ing [facility] Start: 09-13-2025 Tobacco Screening Tobacco Screening [facility] Start: 09-04-2025 Adult BMI Screening Adult BMI Screen ing [facility] Start: 09-04-2025 Tobacco Screening Tobacco Screening [facility] Start: 05-23-2025 Tobacco Screening Tobacco Screening [facility] Start: 04-16-2025 Adult BMI Screening Adult BMI Screen ing [facility] Start: 04-14-2025 End: 04-14-2025 Patient encounter procedure [facility] Start: 04-09-2025 Adult BMI Screening Adult BMI Screen ing [facility] Start: 04-09-2025 Tobacco Screening Tobacco Screening [facility] Start: 03-11-2025 End: 03-11-2025 Patient encounter procedure 03/11/2025 2:15 PM EDT Office Visit [facility] [address] [place] [phone] Edilson Guzman DPM [address] [place], [place] [id number] Arrived [facility] Comment on above: Arrived Start: 03-03-2025 Influenza vaccination [facility] Start: 02-21-2025 Adult BMI Screening Adult BMI Screen ing [facility] Start: 02-21-2025 Tobacco Screening Tobacco Screening [facility] Start: 01-09-2025 End: 01-09-2025 Patient encounter procedure [facility] Comment on above: Arrived Start: 01-08-2025 Adult BMI Screening Adult BMI Screen ing [facility] Start: 01-08-2025 Tobacco Screening Tobacco Screening [facility] Start: 11-04-2024 End: 11-04-2024 Patient encounter procedure [facility] Start: 10-04-2024 End: 10-04-2024 Patient encounter procedure [facility] Comment on above: Arrived Start: 09-26-2024 End: 09-26-2024 Patient encounter procedure 09/26/2024 9:40 AM EDT [facility] [address] [place] [phone] Gretta Whitlock MD [address], [address] [address] [facility] Start: 09-16-2024 End: 09-16-2024 Patient encounter procedure 09/16/2024 11:00 AM EDT Appointment [facility] [address] [place] [address] Vandana Brar, [employer] AND PUL[employer]ER TENDER-KNOWLEDGE ARCHITECT [address] [place] [address] [facility] Start: 09-04-2024 End: 09-04-2024 Patient encounter procedure 09/04/2024 2:30 PM EST Office Visit [facility] [address] [place] [phone] Vandana Brar, [employer] PUL[employer]ER TENDER-KNOWLEDGE ARCHITECT [address] [place] [address] [facility] Start: 09-04-2024 End: 09-04-2024 Clinical Support 09/04/2024 1:15 PM EST Clinical Support [facility] [address] [place] [phone] [facility] Start: 07-24-2024 End: 07-24-2024 Clinical Support [facility] Start: 07-04-2024 End: 07-04-2024 Patient encounter procedure 07/04/2024 10:00 AM EST Office Visit [facility] [address] [place] [phone] Bebeto Romano PA [address] [place] [address] [facility] Start: 05-23-2024 End: 05-23-2024 Patient encounter procedure 05/23/2024 12:45 PM EST Office Visit [facility] [address] [place] [address] Bebeto Romano PA [address] [place] [address] [facility] Start: 05-03-2024 End: 05-03-2024 Admission to same day surgery center 05/03/2024 8:58 AM EDT - 05/03/2024 9:06 AM EDT Surgery [facility] [address] [place] [phone] Alber Hyde MD [address] [place] [phone] INJECTION BLOCK NERVE MEDIAL BRANCH: bilat L45 51 [84492 (CPT )] [facility] Comment on above: INJECTION BLOCK NERV E MEDIAL BRANCH: bilat L45 51 [33915 (CPT )] Start: 05-03-2024 End: 05-03-2024 Njx dx/ther agt pvrt facet jt lmbr/sac 1 level INJECTION BLOCK NERVE MEDIAL BRANCH Lumbosacral spondylosis without myelopathy 05/03/2024 8:58 AM EDT [facility] Start: 05-03-2024 Subsequent hospital visit by physician 05/03/2024 8:58 AM EDT Hospital Encounter [facility] [address] [place] [phone] Alber Hyde MD [address] [facility], [place] [phone] [facility] Start: 04-06-2024 Urine screening for protein Urine Microalbumin [facility] Start: 04-04-2024 End: 04-04-2024 Patient encounter procedure 04/04/2024 1:15 PM EDT Appointment [facility] [address] [place] [phone] Bebeto Romano PA [address] [place], [place] [phone] [facility] Start: 03-03-2024 COVID-19 Vaccine ( season) COVID-19 Vaccine ( season) [facility] Start: 03-03-2024 COVID-19 Vaccine ( season) COVID-19 Vaccine () [facility] Start: 03-03-2024 Influenza vaccination Influenza Vacc ine [facility] Start: 02-22-2024 End: 02-22-2024 Patient encounter procedure 02/22/2024 2:45 PM EDT Office Visit [facility] [address] [place] [phone] Bebeto Romano PA [address] [place], [place] [phone] [facility] Start: 04-25-2023 Pneumococcal Vaccine : 65+ Years (2 of 2 - PCV) Pneumococcal Vaccine: 65+ Years (2 of 2 - PCV) [facility] Start: 03-03-2023 COVID-19 Vaccine ( season) COVID-19 Vaccine ( season) [facility] Start: 2019 Abdominal aortic aneurysm screening Abdominal Aortic Aneurysm (AAA) Screen [facility] Start: 2019 Fall Risk Screening Fall Risk Screen ing [facility] Start: 2004 Administration of varicella zoster vaccine Zoster (Shingles) Vaccine (1 of 2) [facility] Start: 1973 DTaP,Tdap and Td Vaccines (1 - Tdap) DTaP,Tdap and Td Vaccines (1 - Tdap) [facility] Start: 1972 Adult BMI Follow Up Plan Adult BMI F ollow Up Plan [facility] Start: 1972 Diabetic foot examination Diabetic Foot Exam [facility] Start: 1966 Depression Screening Depression Scre ening [facility] Start: 1954 Glaucoma screening Diabetic Op hthalmology Exam [facility] Start: 1954 Medicare Annual Well ness Visit Medicare Annual Wellness Visit [facility] Start: 1954 Screening for malign ant neoplasm of colon [facility] End: 02-21-2025 MR Lumbar spine WO contrast MR lumbar spine without contrast Imaging Routine Lumbar radiculopathy, chronic 1 Occurrences starting 02/22/2024 until 02/21/2025 [employer] Work Phone: Comment on above: 1 Occurrences [...] therapy 1 Occurrences starting 09/04/2024 until 09/04/2025 [employer] Work Phone: Comment on above: 1 Occurrences starti 09/04/2024 until 09/04/2025 Immunizations Immunization Date Immunization Notes Care Provider [facility] 04-11-2023 influenza virus vacc ine, unspecified formulation Bebeto LEON Work Phone: [facility] 04-25-2022 pneumococcal polysaccharide vaccine, 23 valent Edilson Guzman DPM Work Phone: [facility] 08-24-2021 tuberculin skin test ; purified protein derivative solution, intradermal Edilson Guzman DPM Work Phone: [facility] 08-17-2021 tuberculin skin test ; purified protein derivative solution, intradermal Edilson Guzman DPM Work Phone: [facility] 04-19-2021 influenza, injectabl e, quadrivalent, preservative free Bebeto LEON Work Phone: [facility] 12-05-2018 tuberculin skin test ; purified protein derivative solution, intradermal Edilson Rusher DPM Work Phone: [facility] 11-28-2018 tuberculin skin test ; purified protein derivative solution, intradermal Edilson Rusher DPM Work Phone: [facility] 11-22-2018 tuberculin skin test ; purified protein derivative solution, intradermal Edilson Rusher DPM Work Phone: [facility] 05-18-2018 Influenza, injectabl e, Madin Kristina Canine Kidney, preservative free, quadrivalent Bebeto LEON Work Phone: [facility] 05-10-2017 influenza, seasonal, injectable, preservative free Bebeto LEON Work Phone: [facility] 03-25-2015 influenza, seasonal, injectable, preservative free Bebeto LEON Work Phone: [facility] 04-15-2014 influenza, seasonal, injectable Bebeto LEON Work Phone: [facility] Payers Date Payer Category Payer Self-pay 2016 Medicaid [id number] [id number] 1992 Medicare [id number] 2.315 1959 Medicaid [id number] 1959 Medicare [id number] 1954 Unknown [id number] 2.16.84 0.1.385350.3.579.2.593 1954 Unknown [id number] 2.16.84 0.1.778703.3.579.2.593 1954 Unknown [id number] 2.16.84 0.1.401147.3.579.2.593 1954 Unknown [id number] 2.16.84 0.1.994075.3.579.2.593 1954 Unknown [id number] 2.16.84 0.1.398044.3.579.2.593 1954 Unknown [id number] 2.16.84 0.1.101006.3.579.2.593 1954 Unknown [id number] 2.16.84 0.1.449313.3.579.2.593 1954 Unknown [id number] 2.16.840.1.787164.3.579.2.1286 1954 Unknown [id number] 2.16840.1.908318.3.579.2.1286 1954 Unknown [id number] 2.16840.1.287742.3.579.2.1286 1954 Unknown [id number] 2.16.840.1.861831.3.579.2.1286 1954 Unknown [id number] 2.16.840.1.074193.3.579.2.1286 1954 Unknown [id number] 2.16840.1.641689.3.579.2.1286 1954 Unknown [id number] 2.16.840.1.580554.3.579.2.1286 1954 Unknown [id number] 2.16.840.1.707355.3.579.2.1286 1954 Unknown [id number] 2.16.840.1.423663.3.579.2.1286 1954 Unknown [id number] 2.16.840.1.237775.3.579.2.1286 1954 Unknown [id number] 2.16.840.1.572339.3.579.2.1286 1954 Unknown [id number] 2.16.840.1.815864.3.579.2.1286 1954 Unknown [id number] 2.16.840.1.038407.3.579.2.1286 1954 Unknown [id number] 2.16.840.1.337965.3.579.2.1286 1954 Unknown [id number] 2.16.840.1.655299.3.579.2.1286 1954 Unknown [id number] 2.16.8 40.1.510488.3.579.2.1285 1954 Unknown [id number] 2.16.8 40.1.351791.3.579.2.1285 1954 Unknown [id number] 2.16.8 40.1.463117.3.579.2.1285 1954 Unknown [id number] 2.16.8 40.1.031280.3.579.2.1285 1954 Unknown [id number] 2.16.8 40.1.541494.3.579.2.1285 1954 Unknown [id number] 2.16.8 40.1.947319.3.579.2.1285 1954 Unknown [id number] 2.16.8 40.1.303447.3.579.2.1286 1954 Unknown [id number] 2.16.8 40.1.718081.3.579.2.128 1954 Unknown [id number] 2.16.8 40.1.404117.3.579.2.9 1954 Unknown [id number] 2.16.8 40.1.026869.3.579.2.9 1954 Unknown [id number] 2.16.84 0.1.015257.3.579.2.1259 1954 Unknown [id number] 2.16.84 0.1.924218.3.579.2.1259 Medicare Medicare Nonpatient [id number] [id number] Unknown [id number] 2.16.8 40.1.522512.3.579.2.531 Social History Date Type Detail Facility Start: 01-09-2024 End: 01-09-2025 Tobacco smoking status GAIS Ex-smoker [facility] History of tobacco use Current smoker [facility] History of tobacco use Cigarette Smoker P [facility] Start: 01-09-2024 End: 01-09-2025 Tobacco use and exposure Smokeless tobacco non-user [facility] Start: 05-23-2024 End: 11-14-2024 Alcoholic beverage intake Current non-drinker of alcohol (finding) [facility] Start: 05-23-2024 End: 03-11-2025 History of Social function [facility] Start: 05-23-2024 End: 03-11-2025 Tobacco use panel [facility] Childcare Unknown [facility] Start: 1955 Sex assigned at Not on file [facility] Start: 02-05-2015 End: 11-14-2024 Sex Male (finding) [facility] Tobacco smoking stat [facility] Tobacco smoking consumption unknown [facility] Start: 10-02-2024 End: 03-11-2025 Alcoholic beverage intake Ex-drinker (finding) [facility] Start: 1955 Sex Assigned At Male F [facility] Medical Equipment Procedure Code Equipment Code Equipment Origin al Text Equipment Identifier Dates Ld Pcng 55cm Rv Sq Scr S Df-4 - [id number] - [id number] Start: 11-20-2018 Lead Capsure Fix [employer] 5076-45 - [id number] - [id number] Start: 11-20-2018 Lead Capsure Fix [employer] 5076-52 - [id number] - [id number] Start: 07-21-2020 [facility] Tootie dixon Xt - [id number] - [id number] Start: 11-20-2018 Sys Tootie Estebanl [facility] [id number] - [id number] - [id number] Start: 11-16-2018 Start: 01-20-2018 Goals Date Patient Goal Desired Activity /State Personal health goal Comment on above: Formatting of this n ote might be different from the original. Evaluation of progress towards goal: discharge home with muslim/friends support. Personal health goal Comment on above: Formatting of this n ote might be different from the original. Evaluation of progress towards goal: plan home self care Personal health goal Comment on above: Formatting of this n ote might be different from the original. Evaluation of progress towards goal: Patient likely will discharge to a SNF Clinical Notes 08-09-2022 to 03-11-2025 Edilson Guzman DPM - 03/11/2025 2:15 PM EDTPatient InstructionsStana Guzman DPM - 01/09/2025 1:30 PM EDTPatient InstructionsTelephone Encounter - Mariana Interiano RN - 12/19/2024 10:52 AM EDT Note Date & Type Note Facility 03-11-2025 History of Present illness Narrative Images from the original note were not included. Subjective Patient ID: Celio Frausto is a 69 y.o. male who presents for DM Foot Care (Established patient presents today originally as a shoe measure appointment, however no paperwork was started due to wound on left foot. Patient does appear to have a wound on RGT, patient has HH come for this, last visit was yesterday. PCP: Bradley Bejarano LV 12/2024, A1C: n/a, BS: 130). HPI Returns for assessment of ulceration of the left foot; in order to proceed with therapeutic footwear and accommodative orthoses. Patient is receiving wound care measures relative to right lower extremity; right great toe; anterior surface of the left ankle. Patient relates that all are making favorable progress towards closure. Patient is status post TMA left foot [...] footwear in place right foot. Accompanied by a friend. Date of Last Foot Exam: 03/11/2025 Sensory testing performed: sensations diminished Sensory and [...] drainage. MYCOSIS SCALE: Total with debris multiple digits. INTERDIGITAL MACERATION: clean, dry, non-inflamed. ULCER: Right great toe: Smith stage I ulcerative lesion dorsal-medial surface of the IP joint. The wound site appears dry, non-inflamed, well adhered eschar and thin callus tissue. The site is non fluctuant with no clinical signs of infection or ischemia. Right lower extremity: Several pre-tibial ulcerative lesions are noted; dressings in place. Left ankle: Small superficial ulcerative lesion is located at the anterior ankle joint line. Unremarkable for probing or tracking. Minimal serous exudate without pustular drainage or malodor. The site is non-tender, non-inflamed, non-fluctuant with no clinical signs of infection or ischemia. SKIN PATHOLOGY:texture, turgor, hair growth, within normal limits.. Orthopedic: JOINT RANGE OF MOTION: ankle joint and subtalar joint ROM are normal and pain free. DEFORMITIES: Left foot: Status post TMA (October 2024). MUSCLE STRENGTH: Generalized lower extremity weakness with no focal deficits. Radiology: Assessment/Plan Multiple shallow ulcerations bilateral. 2. Type II diabetes. 3. Diabetic peripheral neuropathy (Q9). 4. Diabetic peripheral vasculopathy (Q8). 5. Status post TMA left (Q7). 6. History of DVT right lower extremity; currently on Xarelto and ASA therapy. Plan: Stable condition. Proceed with pre-determination therapeutic footwear and accommodative orthoses. Diabetic education and assessment relative to the high-risk condition. Patient will continue wound care measures with [facility] wound care services. Follow up: Accordingly to proceed with appropriate measurements. Procedure: This note was created with the assistance of a speech recognition program. While intending to generate a timely document that accurately reflects the content of the visit, no guarantee can be provided that every grammatical or spelling mistake has been or will be identified or corrected. Thank you for your understanding. Edilson Guzman DPM documented in this encounter [facility] 03-11-2025 Instructions Edilson Guzman DPM - 03/11/2025 2:15 PM EDT As noted documented in this encounter [facility] 01-09-2025 History of Present illness Narrative Images [...] Guzman DPM documented in this encounter [facility] 01-09-2025 Instructions Edilson Guzman DPM - 01/09/2025 1:30 PM EDT As noted documented in this encounter [facility] 12-19-2024 Miscellaneous Notes Images from the original note were not included. Last OV 09/04/2024 CMP and CBC 11/14/2024 documented in this encounter [facility] 12-19-2024 Telephone encounter Note Images from the original note were not included. Last OV 09/04/2024 CMP and CBC 11/14/2024 [facility] 10-15-2024 Miscellaneous Notes Surgeon: Dr Gutiérrez Type of surgery: lt transmetatarsal amputation with delayed primary closure of ulceration Date of surgery: pending Surgery location: [facility] Type of anesthesia: general On a blood [...] Thank you Pt scheduled for lexiscan at [facility] 11/04/24 documented in this encounter [facility] [facility] 10-15-2024 Telephone encounter Note Surgeon: Dr Gutiérrez Type of surgery: lt transmetatarsal amputation with delayed primary closure of ulceration Date of surgery: pending Surgery location: [facility] Type of anesthesia: general On a blood thinner?: xarelto Indication? At Fib On an antiplatelet?: asa Stent? no Date of last EK09/04/24 Last office visit date and who they saw: AM 09/04/24 Their preference of how long to hold blood thinners/antiplatelet: per cardiology recommendations History of CVA/TIA, DVT/PE? [facility] Tele[facility] encounter Note Can not complete at least 4 Mets of activity 2/2 mobility issues. Will need nuclear stress for cardiac clearance. If nuclear stress normal, can hold aspirin 3-5 days preop and Xarelto 48 hours preop with resumption of both medications as soon as possible postoperative once deemed safe by surgeon. Thank you [facility] 10-15-2024 Telephone encounter Note Pt scheduled for lexiscan at PM 11/04/24 [facility] 10-10-2024 Evaluation + Plan note Associated Problem(s): Critical limb ischemia of left lower extremity with gangrene (CMS-HCC) PVR. Continue best medical therapy with aspirin and statin. [facility] 10-10-2024 Miscellaneous Notes Associated Problem(s): Critical limb ischemia of left lower extremity with gangrene (CMS-HCC) PVR. Continue best medical therapy with aspirin and statin. documented in this encounter [facility] 10-10-2024 History of Present illness Narrative Images from the original note were not included. To: [facility] HPI: Tomas Frausto is a [...] pectoris Arrhythmia Atrial fibrillation (CMS-HCC) Atrial flutter ([facility]-HCC) Atrial flutter ([facility]-HCC) Benign prostatic hyperplasia BPH with urinary obstruction Cancer (CMS-HCC) skin cancer Cataract Constipation Coronary artery disease Dental disease no teeth Diabetes mellitus (CMS-HCC) Diabetes mellitus type 2, controlled ([facility]) Hypercholesterolemia Hypertension Myositis Peripheral neuropathy Rash Scalp wound Urinary incontinence Ventricular tachycardia ([facility]) Visual impairment glasses Past Surgical History: Past Surgical History: Procedure Laterality Date 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; excision and debridement Left 10/29/2021 Performed by Ambrosio Al MD at [facility] AMPUTATION TOE 4TH & 5TH/WIDE INCISIONAL DEBRIDEMENT LEFT DIABETIC FOOT NECROTIZING FASCITIS Left 08/12/2021 Performed by Ambrosio Al MD at [facility] ANGIO LOWER EXT Left 09/27/2024 Performed by Gretta Whitlock MD at [facility] CARDIAC DEFIBRILLATOR PLACEMENT [employer] CATARACT EXTRACTION Coronary angiogram and left ventricular gram/pressure N/A 11/19/2018 Performed by Sage Jay MD at [facility] Coronary fractional flow reserve N/A 11/19/2018 Performed by Sage Jay MD at [facility] CYSTOSCOPY [facility] SOLUTION N/A 10/27/2021 Performed by Frederic Thorne MD at [place] [facility] DC ICD RA lead replace - MDT N/A 07/21/2020 Performed by Yoni Espinoza MD at [facility] (EP) EP - Device DC ICD Left 11/20/2018 Performed by Shayna Betancourt MD at [facility] (EP) EP - Diagnostic-- EP study Right 11/16/2018 Performed by Rafita Garcia MD at [facility] (EP) INJECTION BLOCK NERVE MEDIAL BRANCH: bilat L 10/05, 10/31 Bilateral 05/03/2024 Performed by Alber Hyde MD at [facility] Loop recorder implant N/A 11/16/2018 Performed by Rafita Garcia MD at [facility] (EP) Loop recorder removal N/A 07/21/2020 Performed by Yoni Espinoza MD at [facility] (EP) Percutaneous angioplasty tibia/per initial vessel left Left 09/27/2024 Performed by Gretta Whitlock MD at [facility] Percutaneous angioplasty tibia/per initial vessel/EACH ADDITIONAL Right 09/27/2024 Performed by Gretta Whitlock MD at [facility] SKIN CANCER EXCISION Social [...] Unknown (08/24/2023) Received from [facility] [place] Safety & Environment Fear of [...] Gretta Whitlock MD, RONNIE, RPVI, FSVS, FACS [facility] This note was created with the assistance of a speech recognition program. While intending to generate a timely document that accurately reflects the content of the visit, no guarantee can be provided that every grammatical or spelling mistake has been or will be identified or corrected. Thank you for your understanding. documented in this encounter [facility] 10-04-2024 History of Present illness Narrative Images from the original note were not included. Subjective Patient ID: Tomas Frausto is a 69 y.o. male who presents for Toe Pain (Tomas Frausto 69yo New Patient last seen 07/12/2021. Patient is diabetic. Concerns of Right great toenail infection, patient relates drainage, thick and painful. Patient is seeing wound care in [place] for possible partial amputation of left foot, due to non-healing after amputation surgery 3 years ago, in [place]. Currently taking cephalexin for left foot infection. [...] shoe gear; typically continues to wear Dr. Comfort therapeutic footwear. He does note some discomfort [...] Guzman DPM documented in this encounter [facility] 10-04-2024 Instructions Edilson Guzman DPM - 10/04/2024 11:30 AM EDT As noted documented in this encounter [facility] 10-02-2024 History of Present illness Narrative Associated Order(s): L Inj/Asp: R knee Post-Procedure Diagnose(s): Arthritis of right knee; Effusion of right knee Images from the original note were not included. NAME: Tomas Frausto : 1955 HISTORY OF PRESENT ILLNESS: NEW PT Tomas Frausto is an 69 y.o. @ male. (NEW PT) [facility] REFERRAL. RT KNEE PAIN 09/11/24 (3 WKS), WENT TO [facility] ER 09/13, HAD XR AND GIVEN KNEE IMMOBILIZER. XRAY [facility] 09/13/24 WORE KNEE IMMOBILIZER FOR A COUPLE DAYS. PRESENTS IN WC TODAY. USES WALKER AT HOME. USED WC FOR DISTANCE. PAIN DIFFUSE IN KNEE. DENIES RADIATION. INTERMITTENT PAIN. +TYL. USED ICE ONCE. DENIES N/T. +SWELLING. KNEE POPPED ONCE GOING UP THE STEPS. +GIVING OUT SENSATION. DOES NOT WAKE AT HS. *ON [place] PAST MEDICAL HISTORY: Past Medical History: Diagnosis Date Diabetes ([facility]) H/O blood clots PAST SURGICAL HISTORY: [...] and flexion. The x-ray from 09/13/2024 at [facility] shows tricompartmental arthritic changes. Treatment plan: A cortisone injection was discussed and administered today. Clinical decision making: Further treatment will be held until he is released from his left foot surgery. Right knee arthritis. The patient has been complaining of knee aching and pain consistent with arthritis. The x-ray from 09/13/2024 at [facility] shows tricompartmental arthritic changes. He [...] Treatment plan: He follows with a local senior mechanical technician and is recommended to have a prompt appointment for evaluation of his right great toe, likely needing nail trimming and potential antibiotics given his history of chronic wounds. Follow-up: Prompt appointment with local senior mechanical technician for evaluation of right great toe. PROCEDURE [...] urgent evaluation. documented in this encounter [facility] 09-26-2024 Evaluation + Plan note Associated Problem(s): Critical limb ischemia of left lower extremity with gangrene (CMS-HCC) Left lower extremity angiogram and intervention [facility] 09-26-2024 Miscellaneous Notes Associated Problem(s): Critical limb ischemia of left lower extremity with gangrene ([facility]) Left lower extremity angiogram and intervention documented in this encounter [facility] 09-26-2024 History of Present illness Narrative Images from the original note were not included. To: [facility] [place] HPI: Tomas Frausto is a 69 y.o. [...] Past Medical History: Diagnosis Date Angina pectoris ([facility]) Arrhythmia Atrial fibrillation ([facility] Atrial flutter ([facility]) Atrial flutter ([facility]) Benign prostatic hyperplasia BPH with urinary obstruction Cancer ([facility]) skin cancer Cataract Constipation Coronary artery disease Dental disease no teeth Diabetes mellitus ([facility]) Diabetes mellitus type 2, controlled ([facility]) Hypercholesterolemia Hypertension Myositis Peripheral neuropathy Rash Scalp wound Urinary incontinence Ventricular tachycardia ([facility]) Visual impairment glasses Past Surgical History: Past Surgical History: Procedure Laterality Date 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; excision and debridement Left 10/29/2021 Performed by Ambrosio Al MD at [facility] AMPUTATION TOE 4TH & 5TH/WIDE INCISIONAL DEBRIDEMENT LEFT DIABETIC FOOT NECROTIZING FASCITIS Left 08/12/2021 Performed by Ambrosio Al MD at [facility] CARDIAC DEFIBRILLATOR PLACEMENT medtronic CATARACT EXTRACTION Coronary angiogram and left ventricular gram/pressure N/A 11/19/2018 Performed by Sage Jay MD at [facility] Coronary fractional flow reserve N/A 11/19/2018 Performed by Sage Jay MD at [facility] CYSTOSCOPY [facility] SOLUTION N/A 10/27/2021 Performed by Frederic Thorne MD at [facility] DC ICD RA lead replace - MDT N/A 07/21/2020 Performed by Yoni Espinoza MD at [facility] (EP) EP - Device DC ICD Left 11/20/2018 Performed by Shayna Betancourt MD at [facility] (EP) EP - Diagnostic-- EP study Right 11/16/2018 Performed by Rafita Garcia MD at [facility] ([facility]) INJECTION BLOCK NERVE MEDIAL BRANCH: bilat L 4/5, 5 Bilateral 05/03/2024 Performed by Alber Hyde MD at [facility] Loop recorder implant N/A 11/16/2018 Performed by Rafita Garcia MD at [facility] ([facility]) Loop recorder removal N/A 07/21/2020 Performed by Yoni Espinoza MD at [facility] ([facility]) SKIN CANCER EXCISION [...] Unknown (08/24/2023) Received from [facility] [place] Safety [place] Environment Fear of [...] ischemia of left lower extremity with gangrene ([facility]) - Primary Current Assessment & Plan Left lower extremity angiogram and intervention Tomas was seen today for new patient referral for bilateral lower extremities blood . Diagnoses and all orders for this visit: Critical limb ischemia of left lower extremity with gangrene ([facility]) PVD (peripheral vascular disease) ([facility] [place] [place] Gretta Whitlock MD, RONNIE, RPVI, FSVS, FACS [facility] This note was created with the assistance of a speech recognition program. While intending to generate a timely document that accurately reflects the content of the visit, no guarantee can be provided that every grammatical or spelling mistake has been or will be identified or corrected. Thank you for your understanding. documented in this encounter [facility] 09-04-2024 History of Present illness Narrative Tomas Frausto Date of visit: 09/04/2024 Date of : 1955 Age: 69 y.o. 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, with long-term current use of insulin ([facility]) Atrial fibrillation with RVR ([facility]) V-tach ([facility]) Atherosclerosis of council coronary artery of council heart without angina pectoris Pure hypercholesterolemia AICD present, double chamber- Medtronic Atrial flutter ([facility]) Paroxysmal atrial fibrillation ([facility]) Myositis Diabetic peripheral neuropathy associated with type 2 diabetes mellitus ([facility]) Hematuria, gross Non-healing surgical wound Degenerative changes of anterior chamber angle Diabetic autonomic neuropathy ([facility]) Diabetic renal disease ([facility]) Essential hypertension Hypomagnesemia Lower urinary tract symptoms due to benign prostatic hyperplasia Osteomyelitis ([facility]) Angina pectoris ([facility]) Lumbosacral spondylosis without myelopathy No Known Allergies [...] moderate LAE, mild RA AE, trace AI, [id number] MR, mild TR, RVSP 31 mm Hg Current cardiac medication regimen amiodarone 200 mg daily, aspirin 81 mg daily, Toprol 100 mg daily, Xarelto 20 mg daily Lives in [place] with friend. Retired - use to work [...] AF. Referred to Nephrology, appt in December. 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 Gregg in [place] every 4-6 weeks. Gets shots for macular degeneration Past Medical History: Diagnosis Date Angina pectoris ([facility]) Arrhythmia Atrial fibrillation ([facility] Atrial flutter ([facility]) Atrial flutter ([facility]) Benign prostatic hyperplasia BPH with urinary obstruction Cancer ([facility]) skin cancer Cataract Constipation Coronary artery disease Dental disease no teeth Diabetes mellitus ([facility]) Diabetes mellitus type 2, controlled ([facility]) Hypercholesterolemia Hypertension Myositis Peripheral neuropathy Rash Scalp wound Urinary incontinence Ventricular tachycardia ([facility]) Visual impairment glasses No data recorded No data recorded No data recorded Past Surgical History: Procedure Laterality Date 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; excision and debridement Left 10/29/2021 Performed by Ambrosio Al MD at [facility] AMPUTATION TOE 4TH & 5TH/WIDE INCISIONAL DEBRIDEMENT LEFT DIABETIC FOOT NECROTIZING FASCITIS Left 08/12/2021 Performed by Ambrosio Al MD at [facility] CARDIAC DEFIBRILLATOR PLACEMENT medtronic CATARACT EXTRACTION Coronary angiogram and left ventricular gram/pressure N/A 11/19/2018 Performed by Sage Jay MD at [facility] Coronary fractional flow reserve N/A 11/19/2018 Performed by Sage Jay MD at [facility] CYSTOSCOPY [facility] SOLUTION N/A 10/27/2021 Performed by Frederic Thorne MD at [facility] DC ICD RA lead replace - MDT N/A 07/21/2020 Performed by Yoni Espinoza MD at [facility] (EP) EP - Device DC ICD Left 11/20/2018 Performed by Shayna Betancourt MD at [facility] (EP) EP - Diagnostic-- EP study Right 11/16/2018 Performed by Rafita Garcia MD at [facility] ([facility]) INJECTION BLOCK NERVE MEDIAL BRANCH: bilat L 10/05, 10/31 Bilateral 05/03/2024 Performed by Alber Hyde MD at [facility] Loop recorder implant N/A 11/16/2018 Performed by Rafita Garcia MD at [facility] () Loop recorder removal N/A 07/21/2020 Performed by Yoni Espinoza MD at [facility] () SKIN CANCER EXCISION Family History Problem [...] Unknown (08/24/2023) Received from [facility] [place] Safety & Environment Fear of [...] episodes on ILR S/p Medtronic dual-chamber ICD 2018 CXR revealed RA lead dislodgment pod 1. [...] moderate LAE, mild RA AE, trace AI, idma-[id number] MR, mild TR, RVSP 31 mm Hg [...] in about 1 year (around 09/04/2025). PCP: [facility] Referring Physician: No referring provider defined for this encounter. JOSE MIGUEL Ribeiro 09/04/24 1453 documented in this encounter [facility] 09-04-2024 History of Present illness Narrative I agree with the findings in the scanned document. documented in this encounter [facility] 09-03-2024 Miscellaneous Notes Called patient to remind them to bring their most current copy of their medication list with them to their appt. Patient verbalizes understanding. documented in this encounter [facility] 09-03-2024 Telephone encounter Note Called patient to remind them to bring their most current copy of their medication list with them to their appt. Patient verbalizes understanding. [facility] 09-03-2024 Miscellaneous Notes Called patient to remind them to bring their most current copy of their medication list with them to their appt. Patient verbalizes understanding. documented in this encounter [facility] 09-03-2024 Telephone encounter Note Called patient to remind them to bring their most current copy of their medication list with them to their appt. Patient verbalizes understanding. [facility] 07-12-2024 Miscellaneous Notes Samantha 03/08/23 Pt has future appt 07/24/24 documented in this encounter [facility] 07-12-2024 Telephone encounter Note Samantha 03/08/23 Pt has future appt 07/24/24 [facility] 05-23-2024 History of Present illness Narrative [facility] [address] [place] [address] Patient: Tomas Frausto Sex: male : 1955 [...] Past Medical History: Diagnosis Date Angina pectoris ([facility]) Arrhythmia Atrial fibrillation ([facility]) Atrial flutter ([facility]) Atrial flutter ([facility]) Benign prostatic hyperplasia BPH with urinary obstruction Cancer ([facility]) skin cancer Cataract Constipation Coronary artery disease Dental disease no teeth Diabetes mellitus ([facility]) Diabetes mellitus type 2, controlled ([facility]) Hypercholesterolemia Hypertension Myositis Peripheral neuropathy Rash Scalp wound Urinary incontinence Ventricular tachycardia ([facility]) Visual impairment glasses Past Surgical History: Procedure Laterality Date 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; excision and debridement Left 10/29/2021 Performed by Ambrosio Al MD at [facility] AMPUTATION TOE 4TH & 5TH/WIDE INCISIONAL DEBRIDEMENT LEFT DIABETIC FOOT NECROTIZING FASCITIS Left 08/12/2021 Performed by Ambrosio Al MD at [facility] CARDIAC DEFIBRILLATOR PLACEMENT medtronic CATARACT EXTRACTION Coronary angiogram and left ventricular gram/pressure N/A 11/19/2018 Performed by Sage Jay MD at [facility] Coronary fractional flow reserve N/A 11/19/2018 Performed by Sage Jay MD at [facility] CYSTOSCOPY [facility] SOLUTION N/A 10/27/2021 Performed by Frederic Thorne MD at [facility] DC ICD RA lead replace - MDT N/A 07/21/2020 Performed by Yoni Espinoza MD at [facility] (EP) EP - Device DC ICD Left 11/20/2018 Performed by Shayna Betancourt MD at [facility] (EP) EP - Diagnostic-- EP study Right 11/16/2018 Performed by Rafita Garcia MD at [facility] ([facility]) INJECTION BLOCK NERVE MEDIAL BRANCH: bilat L 4/, 10/31 Bilateral 05/03/2024 Performed by Alber Hyde MD at [facility] Loop recorder implant N/A 11/16/2018 Performed by Rafita Garcia MD at [facility] ([facility]) Loop recorder removal N/A 07/21/2020 Performed by Yoni Espinoza MD at [facility] ([facility]) SKIN CANCER EXCISION [...] Unknown (08/24/2023) Received from [facility] [place] Fear of [...] [place] 05/23/24 1347 [facility] 05-23-2024 Miscellaneous Notes Last OV 03/08/23. Letter sent to pt 02/23. Attempted to call pt, no VM box set up. Letter sent. Pt will need appointment for future refills. documented in this encounter [facility] 05-23-2024 Telephone encounter Note Last OV 03/08/23. Letter sent to pt 02/23. Attempted to call pt, no VM box set up. Letter sent. Pt will need appointment for future refills. [facility] 04-09-2024 History of Present illness Narrative [facility] [address] [place] [address] Patient: Tomas Frausto Sex: male : 1955 [...] 10/29/2021 Performed by Ambrosio Al MD at [facility] AMPUTATION TOE 4TH & 5TH/WIDE INCISIONAL DEBRIDEMENT LEFT DIABETIC FOOT NECROTIZING FASCITIS Left 08/12/2021 Performed by Ambrosio Al MD at [facility] CARDIAC DEFIBRILLATOR PLACEMENT medtronic CATARACT EXTRACTION Coronary angiogram and left ventricular gram/pressure N/A 11/19/2018 Performed by Sage Jay MD at [facility] Coronary fractional flow reserve N/A 11/19/2018 Performed by Sage Jay MD at [facility] CYSTOSCOPY [facility] SOLUTION N/A 10/27/2021 Performed by Frederic Thorne MD at [facility] DC ICD RA lead replace - MDT N/A 07/21/2020 Performed by Yoni Espinoza MD at [facility] (EP) EP - Device DC ICD Left 11/20/2018 Performed by Shayna Betancourt MD at [facility] (EP) EP - Diagnostic-- EP study Right 11/16/2018 Performed by Rafita Garcia MD at [facility] (EP) Loop recorder implant N/A 11/16/2018 Performed by Rafita Garcia MD at [facility] ([facility]) Loop recorder removal N/A 07/21/2020 Performed by Yoni Espinoza MD at [facility] ([facility]) SKIN CANCER EXCISION [...] Interpersonal Safety: Unknown (08/24/2023) Received from [facility] Safety & Environment Fear of Current or [...] these patients; however, close collaboration with a industrial maintenance mechanic or banjo repair person is recommended before initiating the RFN procedure, therefore prior to RFA we will consult with patient's industrial maintenance mechanic/banjo repair person for approval and recommendations to proceed with [...] 1226 documented in this encounter [facility] 04-09-2024 Instructions Chuladarren Bonilla CNA - 04/09/2024 10:45 AM EDT [...] room. [facility] History of Present illness Narrative [facility] [address] [place] [address] Patient: Tomas Frausto Sex: male : 1955 Age: 68 y.o. PCP: [facility] Nathaniel 02/22/2024 Tomas Frausto is here for [...] mellitus (CMS-HCC) Diabetes mellitus type 2, controlled ([facility]) Hypercholesterolemia Hypertension Myositis Peripheral neuropathy Rash Scalp wound Urinary incontinence Ventricular tachycardia ([facility]) Visual impairment glasses Past Surgical History: Procedure Laterality Date 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; excision and debridement Left 10/29/2021 Performed by Ambrosio Al MD at [facility] AMPUTATION TOE 4TH & 5TH/WIDE INCISIONAL DEBRIDEMENT LEFT DIABETIC FOOT NECROTIZING FASCITIS Left 08/12/2021 Performed by Ambrosio Al MD at [facility] CARDIAC DEFIBRILLATOR PLACEMENT medtronic CATARACT EXTRACTION Coronary angiogram and left ventricular gram/pressure N/A 11/19/2018 Performed by Sage Jay MD at [facility] Coronary fractional flow reserve N/A 11/19/2018 Performed by Sage Jay MD at [facility] CYSTOSCOPY [facility] SOLUTION N/A 10/27/2021 Performed by Frederic Thorne MD at [facility] DC ICD RA lead replace - MDT N/A 07/21/2020 Performed by Yoni Espinoza MD at [facility] (EP) EP - Device DC ICD Left 11/20/2018 Performed by Shayna Betancourt MD at [facility] (EP) EP - Diagnostic-- EP study Right 11/16/2018 Performed by Rafita Garcia MD at [facility] ([facility]) Loop recorder implant N/A 11/16/2018 Performed by Rafita Garcia MD at [facility] ([facility]) Loop recorder removal N/A 07/21/2020 Performed by Yoni Espinoza MD at [facility] ([facility]) SKIN CANCER EXCISION [...] Interpersonal Safety: Unknown (08/24/2023) Received from [facility] Safety & Environment Fear of Current or [...] [place] 02/29/24 1218 documented in this encounter [facility] 02-21-2024 Miscellaneous Notes 02/21/24 Remember to arrange Mar 2024 annual offc appt. Please contact pt to arrange. documented in this encounter [facility] 02-21-2024 Miscellaneous Notes OV-03/08/2023 documented in this encounter [facility] 02-21-2024 Telephone encounter Note 02/21/24 Remember to arrange Mar 2024 annual offc appt. Please contact pt to arrange. [facility] 02-21-2024 Telephone encounter Note OV-03/08/2023 [facility] 01-17-2024 Miscellaneous Notes Martha Merlos RN states he is needing a prescription for Tramadol. She is requesting it as it was ordered while in the hospital because this has been effective for him. ( 50 mg every 8 hours ). 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 documented in this encounter [facility] 01-17-2024 Telephone encounter Note Tomas's Chelita RN states he is needing a prescription for Tramadol. She is requesting it as it was ordered while in the hospital because this has been effective for him. ( 50 mg every 8 hours ). 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 [facility] 01-11-2024 Miscellaneous Notes Patients friend came to window with request to get soma medication refilled. Provider stated we do not fill soma and friend instructed with information and to reach out pcp as they were the ones who provided patient with the rx. Friend verbalized understanding. documented in this encounter [facility] 01-11-2024 Telephone encounter Note Patients friend came to window with request to get soma medication refilled. Provider stated we do not fill soma and friend instructed with information and to reach out pcp as they were the ones who provided patient with the rx. Friend verbalized understanding. [facility] 01-09-2024 History of Present illness Narrative [facility] [address] [place] [address] Patient: Tomas Frausto Sex: male : 1955 Age: 68 y.o. PCP: [facility] Nathaniel 01/09/2024 Tomas Frausto is here for a(n) initial consultation [...] Past Medical History: Diagnosis Date Angina pectoris ([facility]) Arrhythmia Atrial fibrillation ([facility]) Atrial flutter ([facility]) Atrial flutter ([facility]) Benign prostatic hyperplasia BPH with urinary obstruction Cancer ([facility]) skin cancer Cataract Constipation Coronary artery disease Dental disease no teeth Diabetes mellitus ([facility]) Diabetes mellitus type 2, controlled ([facility]) Hypercholesterolemia Hypertension Myositis Peripheral neuropathy Rash Scalp wound Urinary incontinence Ventricular tachycardia ([facility]) Visual impairment glasses Past Surgical History: Procedure Laterality Date 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; excision and debridement Left 10/29/2021 Performed by Ambrosio Al MD at [facility] AMPUTATION TOE 4TH & 5TH/WIDE INCISIONAL DEBRIDEMENT LEFT DIABETIC FOOT NECROTIZING FASCITIS Left 08/12/2021 Performed by Ambrosio Al MD at [facility] CARDIAC DEFIBRILLATOR PLACEMENT medtronic CATARACT EXTRACTION Coronary angiogram and left ventricular gram/pressure N/A 11/19/2018 Performed by Sage Jay MD at [facility] Coronary fractional flow reserve N/A 11/19/2018 Performed by Sage Jay MD at [facility] CYSTOSCOPY [facility] SOLUTION N/A 10/27/2021 Performed by Frederic Thorne MD at [facility] DC ICD RA lead replace - MDT N/A 07/21/2020 Performed by Yoni Espinoza MD at [facility] (EP) EP - Device DC ICD Left 11/20/2018 Performed by Shayna Betancourt MD at [facility] (EP) EP - Diagnostic-- EP study Right 11/16/2018 Performed by Rafita Garcia MD at [facility] (EP) Loop recorder implant N/A 11/16/2018 Performed by Rafita Garcia MD at [facility] (EP) Loop recorder removal N/A 07/21/2020 Performed by Yoni Espinoza MD at [facility] () SKIN CANCER EXCISION [...] Interpersonal Safety: Unknown (08/24/2023) Received from [facility] Safety & Environment Fear of Current or [...] Benavides 01/11/24 0917 documented in this encounter [facility] 08-09-2022 Note PROCEDURE: XR FOOT L T [...] by: EDILSON DON Date: 2022-08-09 15:44 [facility] Evaluation note Diagnosis Enuresis- Primary Functional [...] Paroxysmal ventricular tachycardia documented in this encounter [facility]* Diagnosis Lumbar spondylolysis- Primary Lumbosacral spondylosis without myelopathy documented in this encounter [facility]* Diagnosis Atrial fibrillation, unspecified type (CMS-HCC)- Primary documented in this encounter [facility]* Diagnosis Ventricular tachycardia (CMS-HCC) Paroxysmal ventricular tachycardia Atrial fibrillation with RVR (CMS-HCC) V-tach (CMS-HCC) Paroxysmal ventricular tachycardia documented in this encounter [facility]* Diagnosis Lumbosacral spondylosis without myelopathy- Primary Disc displacement, lumbar Displacement of lumbar intervertebral disc without myelopathy Lumbar radiculopathy, chronic documented in this encounter [facility]* Diagnosis Lumbosacral spondylosis without myelopathy- Primary Lumbosacral spondylosis without myelopathy- Primary Lumbosacral spondylosis without myelopathy documented in this encounter [facility]* Diagnosis Enuresis- Primary Functional urinary incontinence BPH (benign prostatic hypertrophy) with urinary obstruction- Primary Hypertrophy of prostate with urinary obstruction and other lower urinary tract symptoms (LUTS) Benign prostatic hyperplasia with urinary obstruction- Primary Urinary retention- Primary Unspecified retention of urine Benign prostatic hyperplasia with urinary obstruction Lumbosacral spondylosis without myelopathy- Primary documented in this encounter [facility]* Diagnosis Enuresis- Primary Functional urinary incontinence BPH (benign prostatic hypertrophy) with urinary obstruction- Primary Hypertrophy of prostate with urinary obstruction and other lower urinary tract symptoms (LUTS) Benign prostatic hyperplasia with urinary obstruction- Primary Urinary retention- Primary Unspecified retention of urine Benign prostatic hyperplasia with urinary obstruction Ventricular tachycardia (CMS-HCC) Paroxysmal ventricular tachycardia Atrial fibrillation with RVR (CMS-HCC) V-tach ([facility]) Paroxysmal ventricular tachycardia documented in this encounter [facility]* Diagnosis Enuresis- Primary Functional [...] for monitoring amiodarone therapy Paroxysmal atrial fibrillation (CMS-HCC) Atrial fibrillation Typical atrial flutter (CMS-HCC) V-tach (CMS-HCC) Paroxysmal ventricular tachycardia Essential hypertension Unspecified essential hypertension documented in this [facility]* Diagnosis Enuresis- Primary Functional urinary incontinence BPH (benign prostatic hypertrophy) with urinary obstruction- Primary Hypertrophy of prostate with urinary obstruction and other lower urinary tract symptoms (LUTS) Benign prostatic hyperplasia with urinary obstruction- Primary Urinary retention- Primary Unspecified retention of urine Benign prostatic hyperplasia with urinary obstruction AICD present, double chamber- Medtronic- Primary documented in this encounter [facility]* Diagnosis Enuresis- Primary Functional urinary incontinence BPH (benign prostatic hypertrophy) with urinary obstruction- Primary Hypertrophy of prostate with urinary obstruction and other lower urinary tract symptoms (LUTS) Benign prostatic hyperplasia with urinary obstruction- Primary Urinary retention- Primary Unspecified retention of urine Benign prostatic hyperplasia with urinary obstruction Critical limb ischemia of left lower extremity with gangrene ([facility])- Primary PVD (peripheral vascular disease) Unspecified peripheral vascular disease documented in this encounter [facility]* Diagnosis Acute pain of right knee- Primary Arthritis of right knee Effusion of right knee documented in this encounter [facility] HealthcareEvaluation note* Diagnosis Paronychia of great toe of right foot- Primary Angiopathy, diabetic ([facility]) Type II or unspecified type diabetes mellitus with peripheral circulatory disorders, not stated as uncontrolled Diabetic polyneuropathy associated with type 2 diabetes mellitus ([facility]) Status post partial amputation of left foot ([facility]) documented in this encounter [facility] HealthcareEvaluation note* Diagnosis Enuresis- Primary Functional [...] gangrene (CMS-HCC)- Primary documented in this encounter [facility] System[facility] noteNo assessment information available [facility] Work Phone: Evaluation note* Diagnosis Enuresis- Primary Functional urinary incontinence BPH (benign prostatic hypertrophy) with urinary obstruction- Primary Hypertrophy of prostate with urinary obstruction and other lower urinary tract symptoms (LUTS) Benign prostatic hyperplasia with urinary obstruction- Primary Urinary retention- Primary Unspecified retention of urine Benign prostatic hyperplasia with urinary obstruction Critical limb ischemia of left lower extremity with gangrene ([facility])- Primary PVD (peripheral vascular disease) Unspecified peripheral vascular disease Critical limb ischemia of left lower extremity with gangrene ([facility])- Primary Atrial fibrillation, unspecified type ([facility]) documented in this encounter [facility] SystemEvaluation note* Diagnosis Dermatophytosis of nail- Primary Dystrophic nail Other specified disease of nail Status post partial amputation of left foot (HCC) Angiopathy, diabetic (HCC) Type II or unspecified type diabetes mellitus with peripheral circulatory disorders, not stated as uncontrolled Diabetic polyneuropathy associated with type 2 diabetes mellitus (HCC) documented in this encounter [facility] HealthcareEvaluation note* Diagnosis Diabetic ulcer of toe associated with type 2 diabetes mellitus, with fat layer exposed, unspecified laterality (HCC)- Primary Status post partial amputation of left foot (HCC) Angiopathy, diabetic (HCC) Type II or unspecified type diabetes mellitus with peripheral circulatory disorders, not stated as uncontrolled Diabetic polyneuropathy associated with type 2 diabetes mellitus (HCC) documented in this encounter [facility] HealthcareInstructionsNot on filedocumented in this [facility] SystemInstructionsNot on filedocumented in this [facility] SystemInstructionsNot on filedocumented in this [facility] InstructionsNot on filedocumented in this [facility] InstructionsNot on filedocumented in this [facility] InstructionsNot on filedocumented in this [facility] InstructionsNot on filedocumented in this [facility] InstructionsNot on filedocumented in this [facility] InstructionsNot on filedocumented in this [facility] InstructionsNot on filedocumented in this [facility] InstructionsNot on filedocumented in this [facility] Summary Purpose Family History No Family [...] contrast Bebeto Romano PA [address] [address] [facility] [address] [place] [address] Phone: [phone] Referral ID Status Reason Start Date Expiration Date V isits Requested Visits Authorized [id number] Pending Review 02/22/2024 02/21/2025 1 1 Specialty Diagnoses / Procedures Referred By Contac t Referred To Contact Diagnoses Lumbosacral spondylosis without myelopathy Procedures Case request operating room: INJECTION BLOCK NERVE MEDIAL BRANCH: bilat L45 51 Bebeto Romano PA [address], [address] [place] [address] Referral ID Status Reason Start Date Expiration Date V isits Requested Visits Authorized [id number] Pending Review 04/09/2024 04/09/2025 1 1 Additional Source Comments (unrecognized sect ion and content) No Status Records FoundNo Status Records FoundNo Status Records FoundNo Status Records FoundNo Status Records FoundNo Status Records Found INFORMATION SOURCE (unrecogn ized section and content) DATE CREATED AUTHOR 11/16/2022 [facility] DATE CREATED AUTHOR AUTHOR'S ORGANIZ ATION 09/28/2024 [facility] DATE CREATED AUTHOR AUTHOR'S ORGANIZ ATION 10/12/2024 [facility] DATE CREATED AUTHOR AUTHOR'S ORGANIZ ATION 11/20/2024 [facility] DATE CREATED AUTHOR AUTHOR'S ORGANIZ ATION 02/15/2025 [facility] DATE CREATED AUTHOR AUTHOR'S ORGANIZ ATION 03/13/2025 [facility] EPIC Reason for Visit [...] Referred By Fly chowdhury Referred To Contact Vascular Surgery Diagnoses PVD (peripheral vascular disease) Mariana Gutiérrez, DPEdvin [address] [place] [address] Phone: tel: fax: [facility] [address] [place] [address] Phone: tel:[phone] fax: Referral ID Status Reason Start Date Expiration Date Visits Requested Visits Authorized [id number] Pending Review Specialty Services Required 08/28/2024 08/28/2025 1 1 Reason Comments Pain Reason Comments Toe Pain Tomas Starksolitario 69yo New Patient last seen 07/12/2021. Patient is diabetic. Concerns of Right great toenail infection, patient relates drainage, thick and painful. Patient is seeing wound care in [place] for possible partial amputation of left foot, due to non-healing after amputation surgery 3 years ago, in [place]. Currently taking cephalexin for left foot infection. [...] 2nd digit in october. PCP: Dr. Bejarano 11/06/24, A1C: 8.7, BS: 132 Reason Comments DM Foot Care Established patient presents today originally as a shoe measure appointment, however no paperwork was started due to wound on left foot. Patient does appear to have a wound on RGT, patient has HH come for this, last visit was yesterday. PCP: Bradley Bejarano 12/2024, A1C: n/a, BS: 130 Care Teams (unrecognized sec tion and content) Last Picker Relationship Specialty Start Date End Date Services, [facility] [address] [place], [place] PCP - General Family Medicine 04/16/24 Last Picker Relationship Specialty Start Date End Date Services, [facility] [address] [place] PCP - General Family Medicine 12/26/23 Last Picker Relationship Specialty Start Date End Date Services, [facility] [address] [place] PCP - General Family Medicine 12/26/23 Last Picker Relationship Specialty Start Date End Date Services, [facility] [address] [place] PCP - General Family Medicine 12/26/23 Last Picker Relationship Specialty Start Date End Date Services, [facility] [address] [place] PCP - General Family Medicine 12/26/23 Last Picker Relationship Specialty Start Date End Date Services, [facility] [address] [place] PCP - General Family Medicine 12/26/23 Last Picker Relationship Specialty Start Date End Date Services, [facility] [address] [place], [place] PCP - General Family Medicine 12/26/23 Last Picker Relationship Specialty Start Date End Date Services, [facility] [address] [place], [place] PCP - General Family Medicine 04/16/24 Last Picker Relationship Specialty Start Date End Date Services, [facility] [address] [place], [place] PCP - General Family Medicine 04/16/24 Last Picker Relationship Specialty Start Date End Date Services, [facility] [address] [place], [place] PCP - General Family Medicine 04/16/24 Last Picker Relationship Specialty Start Date End Date Services, [facility] [address] [place] PCP - General Family Medicine 04/16/24 Last Picker Relationship Specialty Start Date End Date Services, [facility] [address] [place], [place] PCP - General Family Medicine 04/16/24 Last Picker Relationship Specialty Start Date End Date Services, [facility] [address] [place], [place] PCP - General Family Medicine 04/16/24 Last Picker Relationship Specialty Start Date End Date Bradley Bejarano PA [address] [place] [address] PCP - General Family Medicine 10/02/24 Last Picker Relationship Specialty Start Date End Date Bradley Bejarano PA [address] [place] [address] PCP - General Family Medicine 10/02/24 Last Picker Relationship Specialty Start Date End Date Bradley Bejarano PA [address] [place] [address] PCP - General Family Medicine 10/02/24 Last Picker Relationship Specialty Start Date End Date Bradley Bejarano PA [address] [place] [address] PCP - General Family Medicine 10/02/24 Last Picker Relationship Specialty Start Date End Date [facility] [address] [place] PCP - General Family Medicine 04/16/24 Team Status: Inactive Member Role Status Zonia Gutiérrez DPM MS Attending Provider Active Start: November 12, 2024 End: November 12, 2024 Last Picker Relationship Specialty Start Date End Date [facility] [address] [place] PCP - General Family Medicine 04/16/24 Last Picker Relationship Specialty Start Date End Date Bradley Bejarano PA [address] [place] [address] PCP - General Family Medicine 10/02/24 Last Picker Relationship Specialty Start Date End Date Bradley Bejarano PA [address] [place] [address] PCP - General Family Medicine 10/02/24 Last Picker Relationship Specialty Start Date End Date Bradley Bejarano PA [address] [place] [address] PCP - General Family Medicine 10/02/24 Last Picker Relationship Specialty Start Date End Date Bradley Bejarano PA [address] [place] [address] PCP - General Family Medicine 10/02/24 Goals [...] BE BASED ON THE PRIMARY CLINICAL RECORDS. [employer] provides no warranty or guarantee of the accuracy or completeness of information in this document.
== END 2025-03-19 09:26 | disposition home or self-care (01) ==
LOC: WC 09:25
PROVIDERS: Visit Provider Podiatrist Foot & Ankle Surgery
DX: E11.621 Type 2 diabetes mellitus with foot ulcer (principal); L97.412 Non-pressure chronic ulcer of right heel and midfoot with fat layer exposed; L97.515 Non-pressure chronic ulcer of other part of right foot with muscle involvement without evidence of necrosis
CPT/HCPCS: 11043

== ENCOUNTER 2025-04-16 09:10 | Outpatient (OUT) | payer MEDICARE, MEDICAID, SELFPAY ==
--- OUTSIDE RECORDS SUMMARY | 2025-02-04 09:45 | XMS_ITS ---
Author Organization [facility] Address [address] [place] [id number] Care Team Providers Care [place] Name Role Phone Bradley Bejarano Primary Care Provider [phone] REASON FOR VISIT DM Social History Sex Assigned At : Social History Observation Description Sex Assigned At Male Encounters Encounter Location Date Provider Diagnosis Main [address] [place] [id number] 02/04/2025 Bradley Bejarano Plan Of Treatment No Information Progress Notes * Tomas QUIÑONES JDOB:1955 (69 yo M)Acc No.[id number]:02/04/2025 Medical Note Patient: Nneka POLANCO Tomas Veras Provider: Eda Bejarano :1955 A ge:69 Y S ex:Male Date:02/04/2025 [id number] Subjective: * Chief Complaints: * 1 . DM. * Medical History: Objective: * Vitals: Assessment: Plan: * Treatment: * Billing Information: * Visit Code: * Procedure Codes: * Electronic signature of EDWARD Parra on 04/16/2025 at 09:13 AM EDT Sign off status: Pending * Provider: Eda Bejarano Date: 0 02/04/2025 Generated for Camille ng/Faarturo/eTransmitting on: 1 09:13 AM EDT
--- OUTSIDE RECORDS SUMMARY | 2025-04-16 09:13 | XMS_ITS | Encounter Summary ---
Author Organization [facility] Address [id number] [address] [place] [address] Care Team Providers Care Proofreader Name Role Phone Services, [facility] Primary Care Provider Encounter Details Date Type Department Care Team (Late st Contact Info) Description 10/11/2021 Abstract [facility] [address] [place] [phone] External, Scanning Provider Social History Tobacco Use [...] hospital to home General Yes Laurie Villar, GIS PROFESSOR-CRYSTAL GROWING TECHNICIAN Note: Evaluation of progress towards goal: discharge home with rastafari/friends support. <enter goal here> General Yes Sunita Tomlinson LSW Note: Evaluation of progress towards goal: plan home self care SNF General Yes Cathryn Kapadia, SUCTION ROLLER Note: Evaluation of progress towards goal: Patient [...] on filedocumented in this encounter Care Teams Proofreader Relationship Specialty Start Date End Date [facility], [facility] [address] [place], [place] PCP - General Family Medicine 04/16/24 documented as of this encounter
--- OUTSIDE RECORDS SUMMARY | 2025-04-16 09:13 | XMS_ITS | Encounter Summary ---
Author Organization [facility] Address [id number] [address] [place] [address] Care Team Providers Care Last Pattern Grader Name Role Phone Services, [facility] Primary Care Provider Encounter Details Date Type Department Care Team (Late st Contact Info) Description 09/04/2024 Orders Only [facility] [address] [place] [id number] Chula Santiago CMA AICD present, double chamber [...] to home General Yes Villar, Laurie L, YOUTH CARE PROFESSIONAL-HYDROGEN CELL TENDER Note: Evaluation of progress towards goal: discharge home with religious/friends support. <enter goal here> General Yes Sunita Tomlinson, ALANIS Note: Evaluation of progress towards goal: plan home self care SNF General Yes Cathryn Kapadia, PRODUCTION SANITIZER Note: Evaluation of progress towards goal: Patient likely will discharge to a SNF documented as of this encounter Procedures Procedure Name Priority Date/Time Associated Diagnosis Comments DEVICE INTERROGATION Routine 09/04/2024 AICD present, double chamber documented in this encounter Results * Device Interrogation (09/04/2024) Anatomical Region Laterality Modality Other 09/04/2024 Vandana Brar APRN-HYDROGEN CELL TENDER [facility] ORD ERABLES Final Result documented in this encounter Visit Diagnoses Diagnosis AICD present, double chamber documented in this encounter Care Teams Last Pattern Grader Relationship Specialty Start Date End Date [facility], [facility] [address] [place], [place] PCP - General Family Medicine 04/16/24 documented as of this encounter
--- OUTSIDE RECORDS SUMMARY | 2025-04-16 09:13 | XMS_ITS | Encounter Summary ---
[facility] Address [id number] [address] [place] [address] Care Team Providers Care Medical Health Researcher Name Role Phone Services, [facility] Primary Care Provider Encounter Details Date Type Department Care Team (Late st Contact Info) Description 09/21/2021 Telephone [facility] [address] [place] [phone] Stacy Saldana, SANTY Social History Tobacco Use [...] to home General Yes Villar, Laurie L, EXPLOSIVES WORKER-CHICKEN FANCIER Note: Evaluation of progress towards goal: discharge home with bahai/friends support. <enter goal here> General Yes Sunita Tomlinson, MAIL SUPERINTENDENT Note: Evaluation of progress towards goal: plan home self care SNF General Yes Cathryn Kapadia, MAIL SUPERINTENDENT Note: Evaluation of progress towards goal: Patient likely will discharge to a SNF documented as of this encounter Visit Diagnoses Not on filedocumented in this encounter Care Teams Medical Health Researcher Relationship Specialty Start Date End Date [facility], [facility] [address] [place], [place] PCP - General Family Medicine 04/16/24 documented as of this encounter
--- OUTSIDE RECORDS SUMMARY | 2025-04-16 09:13 | XMS_ITS | Encounter Summary ---
Author Organization [facility] Address [id number] [address] [place] [address] Care Team Providers Care Computational Mathematician Name Role Phone Services, [facility] Primary Care Provider Encounter Details Date Type Department Care Team (Late st Contact Info) Description 09/27/2021 Telephone [facility] [address] [place] [phone] Stacy Saldana, SANTY Social History Tobacco Use [...] to home General Yes Villar, Laurie L, FIRE REGULATOR-HEALTH INFORMATION PROVIDER Note: Evaluation of progress towards goal: discharge home with amish/friends support. <enter goal here> General Yes Sunita Tomlinson, FOOD PROCESSING PLANT MANAGER Note: Evaluation of progress towards goal: plan home self care SNF General Yes Cathryn Kapadia, FOOD PROCESSING PLANT MANAGER Note: Evaluation of progress towards goal: Patient likely will discharge to a SNF documented as of this encounter Visit Diagnoses Not on filedocumented in this encounter Care Teams Computational Mathematician Relationship Specialty Start Date End Date [facility], [facility] [address] [place], [place] PCP - General Family Medicine 04/16/24 documented as of this encounter
--- OUTSIDE RECORDS SUMMARY | 2025-04-16 09:13 | XMS_ITS | Encounter Summary ---
Author Organization [facility] [email or web address] [facility] tem Address [id number] [address] [place] [address] Care Team Providers Care Circulating Nurse Name Role Phone Services, [facility] Primary Care Provider Encounter Details Date Type Department Care Team (Late st Contact Info) Description 11/02/[address] [facility] [address] [place] [phone] Stacy Saldana, SANTY Social History Tobacco Use [...] hospital to home General Yes Laurie Villar, LOCK UP WORKER-COTTON BAG SEWER Note: Evaluation of progress towards goal: discharge home with protestant/friends support. <enter goal here> General Yes Sunita Tomlinson, WORKSITE WELLNESS PRACTITIONER Note: Evaluation of progress towards goal: plan home self care SNF General Yes Cathryn Kapadia, WORKSITE WELLNESS PRACTITIONER Note: Evaluation of progress towards goal: Patient likely will discharge to a SNF documented as of this encounter Visit Diagnoses Not on filedocumented in this encounter Care Teams Circulating Nurse Relationship Specialty Start Date End Date [facility], [facility] [address] [place], [place] PCP - General Family Medicine 04/16/24 documented as of this encounter
--- OUTSIDE RECORDS SUMMARY | 2025-04-16 09:13 | XMS_ITS | Encounter Summary ---
Author Organization [facility] tem Address [id number] [address] [place] [address] Care Team Providers Care Environmental Services Aide Name Role Phone Services, [facility] Primary Care Provider Encounter Details Date Type Department Care Team (Late st Contact Info) Description 08/31/2021 Orders Only [facility]ious [facility] [address] [facility] [address] [place] [phone] External, Scanning Provider Social History Tobacco Use [...] hospital to home General Yes Laurie Villar, CHEMISTRY LECTURER-PORTFOLIO ARCHITECT Note: Evaluation of progress towards goal: discharge home with episcopal/friends support. <enter goal here> General Yes Sunita Tomlinson, FIRE TENDER Note: Evaluation of progress towards goal: plan home self care SNF General Yes Cathryn Kapadia, FIRE TENDER Note: Evaluation of progress towards goal: [...] Edited Result - Final Performing Organization Address [facility] Co de Phone Number MANUALLY [...] on filedocumented in this encounter Care Teams Environmental Services Aide Relationship Specialty Start Date End Date Services, [facility] [address] [place], [place] PCP - General Family Medicine 04/16/24 documented as of this encounter
--- OUTSIDE RECORDS SUMMARY | 2025-04-16 09:13 | XMS_ITS | Encounter Summary ---
Author Organization [facility] tem Address [id number] [address] [place] [address] Care Team Providers Care Sort Line Name Role Phone Services, [facility] Primary Care Provider Reason for Visit * Reason Onset Date Comments Appointment 08/26/2024 Encounter Details Date Type Department Care Team (Late st Contact Info) Description 08/26/2024 [facility]phone [facility] [address] [place] [phone] Marisela Yi [facility] Appointment [...] hospital to home General Yes Laurie Villar, PATIENT OFFICE REP-MUD ANALYSIS OPERATOR Note: Evaluation of progress towards goal: discharge home with zoroastrian/friends support. <enter goal here> General Yes Sunita Tomlinson, ALANIS Note: Evaluation of progress towards goal: plan home self care SNF General Yes Cathryn Kapadia, SUPERVISOR MICROFILM DUPLICATING UNIT Note: Evaluation of progress towards goal: Patient likely will discharge to a SNF documented as of this encounter Visit Diagnoses Not on filedocumented in this encounter Care Teams Sort Line Relationship Specialty Start Date End Date [facility], [facility] [address] [facility] [place] [place] PCP - General Family Medicine 04/16/24 documented as of this encounter
--- OUTSIDE RECORDS SUMMARY | 2025-04-16 09:13 | XMS_ITS | Encounter Summary ---
Author Organization [facility] tem Address [id number] [address] [place] [address] Care Team Providers Care Apartment Leasing Manager Name Role Phone Services, [facility] Primary Care Provider Encounter Details Date Type Department Care Team (Late st Contact Info) Description 01/18/2024 Orders Only [facility] [address] [place] [phone] Emery Haq PA [address] [facility], 2[address] [place], [place] [address] Social History Tobacco Use Types Packs/Day Years [...] hospital to home General Yes Laurie Villar, BELLMAN CAPTAIN-DIRECTOR OF CATERING SALES Note: Evaluation of progress towards goal: [...] on filedocumented in this encounter Care Teams Apartment Leasing Manager Relationship Specialty Start Date End Date Services, [facility] [address] [place], [place] PCP - General Family Medicine 04/16/24 documented as of this encounter
--- OUTSIDE RECORDS SUMMARY | 2025-04-16 09:13 | XMS_ITS | Clinical Summary ---
Author Organization [facility] Address [facility][id number] [address] [place] [address] Care Team Providers Care Tableau Administrator Name Role Phone Services, Pending [facility] Primary Care Provider Allergies No known active [...] by mouth in the morning. 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 pectoris 12/04/2018 Pure hypercholesterolemia 12/04/2018 AICD present, double chamber- Medtronic 12/05/19 19 Atrial fibrillation with RVR 11/14/2018 V-tach 11/14/2018 Overview (11/19/2018): Added automatically from request for surgery [id number] Type 2 diabetes mellitus wit h skin [...] Encounters Date Type Department Care Team Description 02/13/2025 Travel from Last 3 Months Immunizations Immunization [...] Zoster (Shingles) Vaccine (1 of 2) 2004 Fall Risk Screening 2019 COVID-19 Vaccine (4 2024-2 6 season) 2025 05/06/2021, 10/01/2020, 09/03/2020 Influenza Vaccine 03/03/2025 04/11/2023, , 04/19/2021, Additional history exists Adult BMI Screening 11/04/2025 11/04/2024 Tobacco Screening 11/14/2025 11/14/2024 Abdominal Aortic Aneurysm (A AA) Screen Completed 01/01/2025 Goals Goal Patient Goal Type Associated Problems Recent Progress Patient-Stated? Author safe transition from hospital to home General Yes Laurie Villar, EMAIL OPERATIONS MANAGER-TUFTER HAND Note: Evaluation of progress towards goal: discharge home with anglican/friends support. <enter goal here> General Yes Sunita Tomlinson, ALANIS Note: Evaluation of progress towards goal: plan home self care SNF General Yes Cathryn Kapadia, OPTOELECTRONIC TECHNICIAN Note: Evaluation of progress towards goal: Patient likely will discharge to a SNF Medical Devices Implanted Type Area Stitch Marker Device Identifier Shelf Expiration Date Model / Serial / Lot Ld Pcng 55cm Rv Sq Scr S Df-4 - [id number] - [id number] Implanted:Qty : 1 on 11/20/2018 by Shayna Betancourt MD at [facility] Implant Lead Left: Chest [employer] CARD RHYTHM DEVICES 09/11/2020 [id number] / [id number] / Lead Capsure Fix Novus 5076-45 - [id number] - [id number] Implanted:Qty : 1 on 11/20/2018 by Shayna Betancourt MD at [facility] Implant Lead Left: Chest [employer] [place] 09/17/2020 [id number] / [id number] / Lead Capsure Fix Novus 5076-52 - [id number] - [id number] Implanted:Qty : 1 on 07/21/2020 by Yoni Espinoza MD at [facility] Implant Lead Left: Chest [employer] CARD RHYTHM DEVICES 04/03/2022 5076-52 / [id number] / Dfbr Crd Evera Mri Xt Dr - [id number] - [id number] Implanted:Qty : 1 on 11/20/2018 by Shayna Betancourt MD at [facility] Other Implant Left: Chest [employer] CARD RHYTHM DEVICES 02/14/2020 [id number] / [id number] / Explanted Type Area Stitch Marker Device Identifier Shelf Expiration Date Model / Serial / Lot Sys Crd Rvl Linq Rpl [id number] - [id number] - [id number] Implanted:Qty : 1 on 11/16/2018 by Rafita Garcia MD at [facility] Other Implant Left: Chest [employer] CARD RHYTHM DEVICES 10/15/2019 [id number] / [id number] / Procedures Procedure Name Priority Date/Time Associated Diagnosis Comments MICROALBUMIN / CREATININE URINE RATIO Routine 02/13/2025 1:57 PM EDT Chronic kidney disease, stage 3b (CMS-HCC) BASIC METABOLIC PANEL Routine 02/13/2025 1:57 PM EDT Chronic kidney disease, stage 3b (CMS-HCC) URIC ACID Routine 02/13/2025 1:57 PM EDT Chronic kidney disease, stage 3b (CMS-HCC) CBC (NO DIFF) Routine 02/13/2025 1:57 PM EDT Chronic kidney disease, stage 3b (CMS-HCC) MAGNESIUM Routine 02/13/2025 1:57 PM EDT Chronic kidney disease, stage 3b (CMS-HCC) ALBUMIN Routine 02/13/2025 1:57 PM EDT Chronic kidney disease, stage 3b (CMS-HCC) VITAMIN D 25 HYDROXY Routine 02/13/2025 1:57 PM EDT Chronic kidney disease, stage 3b (CMS-HCC) PARATHYROID HORMOME, INTACT Routine 02/13/2025 1:57 PM EDT Chronic kidney disease, stage 3b (CMS-HCC) PHOSPHORUS Routine 02/13/2025 1:57 PM EDT Chronic kidney disease, stage 3b (CMS-HCC) URINALYSIS Routine 02/13/2025 1:57 PM EDT Chronic kidney disease, stage 3b ([facility]-HCC) MT INTERROGATION EVAL REMOTE </90 D 1/2/CLINICAL IMPLEMENTATION SPECIALIST LD DFB Routine 02/03/2025 9:53 AM EDT US RETROPERITONEAL COMPLETE Routine 01/01/2025 10:08 AM EDT Stage 3b chronic kidney disease (CMS-HCC) from Last 3 Months or Most Recently Relevant to Health Maintenance Results * Parathyroid Hormone, intact (02/13/2025 1:57 PM EDT) PTH INTACT 75 12 - 88 pg/mL 02/13/2025 6:39 PM EDT [facility] Blood Venous blood / Unknown Venipuncture / Unknown 02/13/2025 1:57 PM EDT 02/13/2025 1:57 PM EDT us Juan Swain MD LAB BLOOD ORDERABLES Final Resu lt [facility] [address] [place] [address], [place] [phone] * (ABNORMAL) Microalbumin - Albumin: Creatinine Urine Ratio (02/13/2025 1:57 PM EDT) URINE CREATININE,RDM 54.83 mg/dL 02/13/2025 6:40 PM EDT [facility] MALB/CREAT RATIO 180.6(H) 0.0 - 30.0 mg/g 02/13/2025 6:40 PM EDT [facility] MICROALBUMIN, URINE 9.9(H) 0.0 - 1.9 mg/dL 02/13/2025 6:40 PM EDT [facility] Urine Urine specimen collection, clean catch / Unknown Collection / Unknown 02/13/2025 1:57 PM EDT 02/13/2025 1:57 PM EDT us Juan Swain MD URINE ORDERABLES Final Result [facility] [address] [place] [address], [place] [phone] * Vitamin D 25 hydroxy (02/13/2025 1:57 PM EDT) VITAMIN D 25 HYD TOT 36.6 30.0 - 100.0 ng/mL 02/13/2025 6:46 PM EDT [facility] Blood Venous blood / Unknown Venipuncture / Unknown 02/13/2025 1:57 PM EDT 02/13/2025 1:57 PM EDT Narrative [facility] - 02/13/2025 6:46 PM EDT Vitamin D status 25 [place] Vitamin D Deficiency <20 ng/mL Insufficiency 20-29 ng/mL Sufficiency 30-100 ng/mL Toxicity >100 ng/mL NOTE: A pediatric reference range has not been established by the retail event assistant of this kit. The [place] [employer] recommends a Vitamin D level of = or >20ng/mL in infants and children. us Juan Swain MD LAB BLOOD ORDERABLES Final Resu lt [facility] [address] [place] [address], [place] [phone] * (ABNORMAL) Urinalysis (02/13/2025 1:57 PM EDT) COLOR Yellow Yellow 02/13/2025 6:24 PM EDT [facility] TURBIDITY Clear Clear 02/13/2025 6:24 PM EDT [facility] SPECIFIC GRAVITY 1.031 1.003 - 1.035 02/13/2025 6:24 PM EDT [facility] NITRITE Positive(A) Negative 02/13/2025 6:24 PM EDT [facility] PH,URINE 5.5 5.0 - 8.5 02/13/2025 6:24 PM EDT [facility] LEUKOCYTE ESTERASE Small(A) Negative 02/13/2025 6:24 PM EDT [facility] Comment:High Concentrations of Glucose May Decrease the Reactivity of the Dipstick Leukocyte Test Pad. PROTEIN Trace(A) Negative 02/13/2025 6:24 PM EDT [facility] KETONES (URINE) Negative Negative 6:24 PM EDT [facility] UROBILINOGEN <1.1 eu/dL <1.1 eu/dL 02/13/2025 6:24 PM EDT [facility] BILIRUBIN (URINE) Negative Negative 025 6:24 PM EDT [facility] BLOOD/HGB Negative Negative 02/13/2025 6:24 PM EDT [facility] MUCOUS Present(A) None 02/13/2025 6:24 PM EDT [facility] R.B.CELLS 3 0 - 5 02/13/2025 6:24 PM EDT [facility] W.B.CELLS 9(H) 0 - 5 02/13/2025 6:24 PM EDT [facility] GLUCOSE (URINE) >1000 mg/dL(A) Negative 02/13/2025 6:24 PM EDT [facility] Urine Urine / Unknown Collection / Unknown 02/13/2025 1:57 PM EDT 02/13/2025 1:57 PM EDT us Juan Swain MD URINE ORDERABLES Final Result [facility] [address] [place] [address], [place] [phone] * (ABNORMAL) CBC without diff (02/13/2025 1:57 PM EDT) WBC 6.3 4 - 11 x10E9/L 02/13/2025 6:10 PM EDT [facility] RBC Count 4.29 4.1 - 5.7 X10E12/L 02/13/2025 6:10 PM EDT [facility] Hemoglobin 11.6(L) 13 - 17 g/dL 02/13/2025 6:10 PM EDT [facility] Hematocrit 36.1(L) 39 - 50 % 02/13/2025 6:10 PM EDT [facility] MCV 84 80 - 100 fL 02/13/2025 6:10 PM EDT [facility] MCH 27.0 27 - 34 pg 02/13/2025 6:10 PM EDT [facility] MCHC 32.2 32 - 36 g/dL 02/13/2025 6:10 PM EDT [facility] RDW 16.2(H) 11.5 - 15 % 02/13/2025 6:10 PM EDT [facility] Platelet Count 266 150 - 450 X10E9/L 02/13/2025 6:10 PM EDT [facility] MPV 8.0 7 - 12 fL 02/13/2025 6:10 PM EDT [facility] Blood Venous blood / Unknown Venipuncture / Unknown 02/13/2025 1:57 PM EDT 02/13/2025 1:57 PM EDT Juan Swain MD LAB BLOOD ORDERABLES Final Resu lt [facility] [address] [place] [address], * Uric acid (02/13/2025 1:57 PM EDT) URIC ACID 6.2 2.6 - 7.2 mg/dL 02/13/2025 6:30 PM EDT [facility] Blood Venous blood / Unknown Venipuncture / Unknown 02/13/2025 1:57 PM EDT 02/13/2025 1:57 PM EDT us Juan Swain MD LAB BLOOD ORDERABLES Final Resu lt Performing Organization Address City/[facility]/ZIP Co de Phone Number [facility] [address] [place] [address], [place] [phone] * Phosphorus (02/13/2025 1:57 PM EDT) PHOSPHORUS 3.5 2.4 - 4.9 mg/dL 02/13/2025 6:30 PM EDT [facility] Blood Venous blood / Unknown Venipuncture / Unknown 02/13/2025 1:57 PM EDT 02/13/2025 1:57 PM EDT us Juan Swain MD LAB BLOOD ORDERABLES Final Resu lt Performing Organization Address City/[facility]/ZIP Co de Phone Number [facility] [address] [place] [address], [place] [phone] * Magnesium (02/13/2025 1:57 PM EDT) MAGNESIUM 2.1 1.8 - 2.6 mg/dL 02/13/2025 6:30 PM EDT [facility] Blood Venous blood / Unknown Venipuncture / Unknown 02/13/2025 1:57 PM EDT 02/13/2025 1:57 PM EDT us Juan Swain MD LAB BLOOD ORDERABLES Final Resu lt Performing Organization Address City/[facility]/ZIP Co de Phone Number [facility] [address] [place] [address], [place] [phone] * Albumin (02/13/2025 1:57 PM EDT) ALBUMIN 4.2 3.2 - 5.3 g/dL 02/13/2025 6:30 PM EDT [facility] Blood Venous blood / Unknown Venipuncture / Unknown 02/13/2025 1:57 PM EDT 02/13/2025 1:57 PM EDT us Juan Swain MD LAB BLOOD ORDERABLES Final Resu lt [facility] [address] [place] [address], * (ABNORMAL) Basic Metabolic Panel (02/13/2025 1:57 PM EDT) SODIUM 138 134 - 146 mmol/L 02/13/2025 6:30 PM EDT [facility] POTASSIUM 4.6 3.5 - 5.0 mmol/L 02/13/2025 6:30 PM EDT [facility] CHLORIDE 99 98 - 109 mmol/L 02/13/2025 6:30 PM EDT [facility] CARBON DIOXIDE 28 22 - 32 mmol/L 02/13/2025 6:30 PM EDT [facility] ANION GAP 11 5 - 15 mmol/L 02/13/2025 6:30 PM EDT [facility] BLOOD UREA NITROGEN 16 5 - 27 mg/dL 02/13/2025 6:30 PM EDT [facility] CREATININE 1.30 0.60 - 1.30 mg/dL 02/13/2025 6:30 PM EDT [facility] Comment:METHOD TRACEABLE TO IDMS STANDARD GLUCOSE 203(H) 65 - 99 mg/dL 02/13/2025 6:30 PM EDT [facility] CALCIUM 9.1 8.5 - 10.5 mg/dL 02/13/2025 6:30 PM EDT [facility] EGFR Non-Race Dependent 59(L) >=60 ml/min/1.7 3sq.m 02/13/2025 6:30 PM EDT [facility] Comment: Reported eGFR is based on the CKD-EPI 2020 equation that does not use a race coefficient. Blood Venous blood / Unknown Venipuncture / Unknown 02/13/2025 1:57 PM EDT 02/13/2025 1:57 PM EDT us Juan Swain MD LAB BLOOD ORDERABLES Final Resu lt [facility] [address] [place] [address], [place] [phone] * Remote Device Check (02/03/2025 9:53 AM EDT) Anatomical Region Laterality Modality Other 02/03/2025 9:53 AM EDT Matt Haskins MD HEALTH MAINTENANCE Final Result * Ultrasound retroperitoneal complete (01/01/2025 10:08 AM [...] on 01/06/2025 2:08 PM Juan Swain MD [facility] ORDERABLES Final Result from Last 3 Months or Most Recently Relevant to Health Maintenance Insurance MEDICARE MEDICAID [place] Advance Directives * [...] 1:57 PM 11/23/2017 5:15 PM Care Teams Tableau Administrator Relationship Specialty Start Date End Date [facility], [address] [place] PCP - General Family Medicine 04/16/24
--- OUTSIDE RECORDS SUMMARY | 2025-04-16 09:13 | XMS_ITS | Patient Health Record ---
Author Organization [facility] vices Address [address] [place], [place] [address] Care Team Providers Care Certified Prosthetist Vice President Name Role Phone Bradley Bejarano Primary Care Provider Rocio Hurst Unavailable [phone] Allergies No Known Allergies Results Component Value Reference Range Notes POCT A1C Reviewed date:07/23/2024 01:32:43 PM Interpretation: Performing Lab: Notes/Report: POCT A1C Reviewed date:04/23/2024 10:10:14 AM Interpretation: Performing Lab: Notes/Report: COMPREHENSIVE METABOLIC PANE L Reviewed date:05/09/2024 12:13:11 PM Interpretation: Performing Lab: Notes/Report: Reported eGFR is based on the CKD-EPI 2020 equation that does not use a race coefficient. PERFORMED AT [address] [place] [address] SODIUM 135 134-146 mmol/L POTASSIUM 4.5 3.5-5.0 [...] eGFR (CKD-EPI) NON-RACE DEPENDENT 61 >59 ml/min/1.73sq.m POCT A1C Reviewed date:02/13/2025 01:29:09 PM Interpretation: Performing Lab: Notes/Report: POCT A1C Reviewed date:11/06/2024 01:47:29 PM Interpretation: Performing Lab: Notes/Report: LIPID PROFILE Reviewed date:05/10/2024 08:04:36 AM Interpretation: [...] High Risk CHOLESTEROL:HDL 4.3 1.0-5.0 PERFORMED AT [facility] [address],[place] [address] TSH WITH REFLEX FT4 Reviewed date:05/09/2024 12:13:05 PM Interpretation: Performing Lab: Notes/Report: TSH 4.67 0.49-4.67 uIU/mL PERFORMED A T [address] [place] [address] Comprehensive Metabolic Pane l Reviewed date:07/31/2024 04:38:57 PM Interpretation: Performing Lab: Notes/Report: , [facility] Sodium 139 136-145 mmol/L Potassium 3.9 [...] 0.9 Performing Lab: see note ML - [facility] Lipid Panel Reviewed date:07/31/2024 04:38:45 PM Interpretation: Performing Lab: Notes/Report: [facility] , Triglycerides 276 <=150 mg/dL Cholesterol [...] RISK Performing Lab: see note ML - [facility] Magnesium Reviewed date:07/31/2024 04:38:50 PM Interpretation: Performing Lab: Notes/Report: [facility] , Magnesium 1.9 1.8-2.4 mg/dL Performing Lab: see note ML - [facility] Reason For Referral Reason Worsening GFR Diagnosis 1 Chronic kidney disea se, stage 3 (N18.30) Referral Organization Main Referring Provider First Name Bradley Referring Provider Last Name Carlee Referring Provider Speciality Physician Internet [employer] Commerce Specialist Referred Provider Tristin Eduardo Referred Provider Specialty [...] First Name Bradley Referring Provider Last Name [place] Referring Provider Speciality Physician Internet [employer] Specialist Referred Provider [facility] Referred Provider Specialty Orthopedics General Notes Marisela Beard 08/2024 01:27:46 PM >{ {TOFIRSTNAME}} This is [facility] following up on an outstanding referral that was ordered by your provider. Please call our office at , so we can _update our records., Destinee Leonard 10/08/2024 01:37:16 PM >no response with appt date, closing per protocol Referral Priority Routine Reason home health eval and treat Diagnosis 1 Type 2 diabetes lissy itus with diabetic chronic kidney disease (E11.22) Referral Organization Main Referring Provider First Name Bradley Referring Provider Last Name Carlee Referring Provider Speciality Physician Internet [employer] Commerce Specialist Referred Provider [facility] are Referred Provider Specialty [facility] General Notes Irene Thompson 12/2024 04:43:28 PM >Notes in chart. ceb Referral Priority Routine Medications Medication SIG (Take, Route, Frequency, Duration) Notes Start Date End Date Status Amiodarone HCl 200 MG 1 tablet Orally On ce a day; Duration: 30 days 07/22/2022 Active Sertraline HCl 50 MG TAKE 1 TABLET BY MO UTH EVERY DAY; Duration: 90 Active Lac-Hydrin 12 % 1 application Tree Worker ally Twice a day 11/02/2022 Active Magnesium Oxide -Mg Supplement 400 (240 Mg) MG TAKE 1 TABLET BY MOUTH EVERY DAY; Duration: 90 Active Tamsulosin HCl 0.4 MG TAKE 2 CAPSULES BY MOUTH 30 MINS AFTER MEAL DAILY; Duration: 90 Active D3-1000 25 MCG (1000 UT) TAKE 1 CAPSULE BY MOUTH EVERY DAY FOR 90 DAYS; Duration: 90 Active Tylenol 8 Hour Arthritis Pain 650 MG 2 tablets as needed Orally every 8 hrs 05/24/2023 Active Vitamin D3 125 MCG (5000 UT) TAKE 1 CAPSULE BY MOUTH EVERY DAY FOR 90 DAYS; Duration: 90 Active Metoprolol Succinate ER 100 MG TAKE 1 TABLET BY MOUTH EVERY DAY; Duration: 90 days Active Acidophilus Probiotic 100 MG TAKE 1 CAPSULE BY MOUTH EVERY DAY; Duration: 30 Active Ozempic (1 MG/DOSE) 4 MG/3ML as directed Subcutaneous weekly; Duration: 30 days increasing dose to 1mgweekly form 0.5 mg weekly 02/13/2025 Active Insulin Glargine-yfgn 100 UNIT/ML INJECT 36 UNITS DAILY SUBCUTANEOUSLY 30 DAYS; Duration: 90 Active Insulin Glargine 100 UNIT/ML as directed Subcutaneous 36 units evening Active Ozempic (0.25 or 0.5 MG/DOSE) 2 MG/3ML INJECT 0.5 MG SUBCUTANEOUSLY WEEKLY; Duration: 28 Active Pantoprazole Sodium 40 MG TAKE 1 TABLET BY MOUTH EVERY DAY; Duration: 90 Active Incontinence Brief Large - 1 brief; Duration: 90 days 09/26/2022 A ctive traMADol HCl 50 MG 1 tablet as needed O rally Once a day Active Jardiance 25 MG 1 tablet Orally Once a day; Duration: 90 days Active Atorvastatin Calcium 20 MG TAKE 1 TABLET BY MOUTH EVERY DAY FOR 90 DAYS; Duration: 90 Active Xarelto 20 MG 1 tablet with food O rally Once a day; Duration: 90 days Active Aspirin Low Dose 81 MG TAKE 1 TABLET BY MOUTH EVERY DAY; Duration: 90 Active Immunizations Vaccine Route Administration Date [...] 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 No patient entered lisa a How often do you see or talk to people that you care about and feel close to? (For example: talking to friends on the phone, visiting friends or family, going to holiness or club meetings) More than 5 times a week patient entered data How stressed are you? Stress is when someone feels tense, nervous, anxious, or can't sleep at night because their mind is troubled Not at all patient entered data In the past year have you sp ent more than 2 nights in a row in a penitentiary, longterm, chcf center, or juvenile correctional facility? No patient [...] Problem Status W/U Status Risk Notes Problem Diabetic renal disease (789424318) Type 2 diabetes mellitus with diabetic chronic kidney disease (E11.22) Active confirmed Problem Peripheral circulatory disorder associated with diabetes mellitus (286734206) Type 2 diabetes mellitus with other circulatory complications (E11.59) Inactive confirmed Problem Foot ulcer due to type 2 diabetes mellitus (1061539452716) Type 2 diabetes mellitus with foot ulcer (E11.621) Inactive confirmed Problem Hypomagnesemia (467464260) Hypomagnesemia (E83.42) Active confirmed Problem Chronic pain (98851111) Other chronic pain (G89.29) Active confirmed Problem Sciatica (01916991) Lumbago with sciatica, right side (M54.41) Active confirmed Problem Chronic kidney disease stage 2 (133904439) Chronic kidney disease, stage 2 (mild) (N18.2) Active confirmed Problem Urge incontinence of urine (37730027) Urge incontinence (N39.41) Active confirmed Problem Incontinence without sensory awareness (868558291) Incontinence without sensory awareness (N39.42) Active confirmed Problem Sprain of shoulder (7438719) Other sprain of unspecified shoulder joint, initial encounter (S43.499A) 2007 Problem resolved confirmed Problem Long-term current use of insulin (462813838) jail (current) use of insulin (Z79.4) Active confirmed Problem Essential hypertension (95172579) Essential hypertension (I10) 2005 Active confirmed Comment:BP improved but still above goal range. asymptomatic . increase dose of lisinopril., Problem Lower urinary tract symptoms due to benign prostatic hypertrophy (93750113849690) Benign prostatic hyperplasia with lower urinary tract symptoms (N40.1) Active confirmed Problem Osteoarthritis of knee (484467834) Primary osteoarthritis of both knees (M17.0) Active confirmed Problem Atrial fibrillation (71719204) Paroxysmal atrial fibrillation with RVR (I48.0) Active confirmed Comment:keep follow-up as planned with cardiology heart rate/rhythm normal on exam today, patient asymptomatic take medications as prescribed (metoprolol) any concern with dizziness, fatigue, shortness of breath please seek immediate medical evaluation, Problem Gastroesophageal reflux disease (454027610) GERD (gastroesophagea l reflux disease) (K21.9) Active confirmed Problem Hyperlipidemia (83012733) Hyperlipidemia (E78.5) 2005 Active confirmed Problem Chronic renal disease, stage III (N18.30) Inactive confirmed Problem Anemia (484753237) Anemia, unspecified type (D64.9) Problem resolved confirmed Problem Abrasion of scalp (413736247) Excoriation of scalp (S00.01XA) Problem resolved confirmed Comment:nonh ealing lesion on top of head since he hit it on his headboard of hie bed. derm referral please., Problem Overweight (207375828) Overweight (BMI 25.0-29.9) (E66.3) Active confirmed Problem Dry skin (16679795) Dry skin (L85.3) Active confirmed Comment:-exc essively dry skin over feet & lower legs -is seeing powerhouse laborer who prescribed salves -will check TSH as well to r/o any underlying issue, Problem Orthostatic hypotension (87801656) Orthostatic syncope (I95.1) Problem resolved confirmed Comment:-pt has had 4 episodes so syncope in the last week -mostly in the morning right when he wakes up. thinking these are orthostatic sx -only medication that pt is on that could cause this is tamsulosin. has been on for a long time and pt needs it according to male meat press operator who comes with pt -no specific findings on PE -will order Echo to rule out heart cause -f/u in 3 weeks, Problem Neck pain (60177938) Neck pain, acute (M54.2) Problem resolved confirmed Comment:Neck pain resolved since taking medication. Advised to complete medication remaining. Should notify office if any recurrence of pain - can do a refill for medication if needed., Problem Vitamin D deficiency (89113127) Vitamin D deficiency (E55.9) Active confirmed Comment:per recent labwork - mild deficiency. 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 one has healed a new one has started, advised to continue using cream at home., Problem Lumbar spondylosis (432009814) Lumbar spondylosis (M47.816) Active confirmed Problem Ulcer of left foot (disorder) (811792214) Ulcer of left foot, unspecified ulcer stage (L97.529) Active confirmed Problem Traumatic amputation of toe OR toes without complication (18116062) Amputation of toe of left foot (S98.132A) Active confirmed Vital Signs Heart Rate 75 /min 02/13/2025 Marlene Bonilla 01:06:09 PM EDT > Temperature 98.0 degrees Fahrenheit 02/13/2025 Marlene Bonilla 02/13/2025 01:06:09 PM EDT > Respiratory Rate 18 /min 02/13/2025 Med Bonilla 02/13/2025 01:06:09 PM EDT > Height-cm 171.45 cm 02/13/2025 Marlene Bonilla 01:06:09 PM EDT > Oximetry 98 % 02/13/2025 Marlene Bonilla 01:06:09 PM EDT > Blood pressure diastolic 60 mm Hg 02/13/2025 Marlene Babcock 02/13/2025 01:06:09 PM EDT > Weight-kg 83.46 kg 11/06/2024 Marivel Decker 11/06/2024 01:22:43 PM EDT > Marisela Beard 11/06/2024 01:46:56 PM EDT > Height 67.50 in 02/13/2025 Marlene Bonilla 01:06:09 PM EDT > Blood pressure systolic 113 mm Hg 02/13/2025 Marlene Bonilla 02/13/2025 01:06:09 PM EDT > Weight 184 lbs 11/06/2024 Marivel Decker 11/06/2024 01:22:43 PM EDT > Marisela Beard 11/06/2024 01:46:56 PM EDT > BMI 28.39 kg/m2 11/06/2024 JeronimoPoloy 11/06/2024 01:22:43 PM EDT > Marisela Beard 11/06/2024 01:46:56 PM EDT > Encounters Encounter Location Date Provider Diagnosis Main [address] [place] [id number] 04/23/2024 Rocio [facility] Type 2 diabetes me llitus with diabetic chronic kidney disease E11.22 ; Elevated TSH R79.89 ; Hyperlipidemia E78.5 ; Essential hypertension I10 ; Dietary counseling Z71.3 ; Exercise counseling Z71.82 and Overweight (BMI 25.0-29.9) E66.3 Main [address] [place], [place] [id number] 05/16/2024 Rocoi Rais Hyperlipidemia E78 .5 ; Essential hypertension I10 ; Chronic kidney disease, stage 2 (mild) N18.2 ; GERD (gastroesophageal reflux disease) K21.9 and Hypomagnesemia E83.42 Main [address] [place], [place] [id number] 07/23/2024 Bradley Studd Type 2 diabetes me llitus with other circulatory complications E11.59 Main [address] [place], [place] [id number] 07/30/2024 Bradley Studd Essential hyperten esther I10 Main [address] [place], [place] [id number] 08/06/2024 Bradley Studd Chronic kidney dis ease, stage 3 N18.30 and Nausea R11.0 Main [address] [place], [place] [id number] 09/18/2024 Bradley Studd Primary osteoarthr itis of both knees M17.0 Main [address] [place], [place] [id number] 11/06/2024 Bradley Studd Type 2 diabetes me llitus with diabetic chronic kidney disease E11.22 and Essential hypertension I10 Main [address] [place], [place] [id number] 12/05/2024 Bradley Studd Type 2 diabetes me llitus with diabetic chronic kidney disease E11.22 and Weakness R53.1 Main [address] [place], [place] [id number] 01/29/2025 Bradley Studd Type 2 diabetes me llitus with diabetic chronic kidney disease E11.[address] [place], [place] [id number] 02/13/2025 Bradley Studd Type 2 diabetes me llitus with diabetic chronic kidney disease E11.22 [place] [address] [place] [address] 04/25/2024 Rocio Aris Main [address] [place], [place] [id number] 04/25/2024 Rocio Aris Main [address] [place], [place] [id number] 04/25/2024 Rocio Aris Main [address] [place], [place] [id number] 04/25/2024 Rocio Aris [facility] [address] [place], [place] [id number] 05/02/2024 Rocio Aris Main [address] [place], [place] [id number] 05/16/2024 Rocio Aris Main [address] [place], [place] [id number] 05/16/2024 Rocio Aris Hypomagnesemia E83 .[address] [place], [place] [id number] 05/22/2024 Rocio Aris Main [address] [place], [place] [id number] 06/05/2024 Rocio Aris Medication refill Z76.[address] [place], [place] [id number] 06/19/2024 Rocio Aris Type 2 diabetes me llitus with diabetic chronic kidney disease E11.[address] [place], [place] [id number] 07/12/2024 Rocio Aris [facility] [address] [place], [place] [id number] 07/15/2024 Rocio Aris Main [address] [place], [place] [id number] 07/15/2024 Rocio Aris Main [address] [place], [place] [id number] 07/30/2024 Bradley Studd Main [address] [place], [place] [id number] 08/05/2024 Bradley Studd Type 2 diabetes me llitus with other circulatory complications E11.[address] [place], [place] [id number] 08/07/2024 Bradley Studd Main [address] [place], [place] [id number] 08/07/2024 Bradley Studd Main [address] [place], [place] [id number] 09/02/2024 Bradley Studd Hyperlipidemia E78 .[address] [place], [place] [id number] 09/09/2024 Bradley Studd Main [address] [place], [place] [id number] 09/23/2024 Bradley Studd Main [address] [place], [place] [id number] 09/30/2024 Bradley Studd Hypomagnesemia E83 .42 and Type 2 diabetes mellitus with diabetic chronic kidney disease E11.[address] [place], [place] [id number] 10/14/2024 Bradley Studd Main [address] [place], [place] [id number] 10/21/2024 Bradley Studd Main [address] [place], [place] [id number] 10/31/2024 Bradley Studd Type 2 diabetes me llitus with other circulatory complications E11.[address] [place], [place] [id number] 11/04/2024 Bradley Studd Main [address] [place], [place] [id number] 11/20/2024 Bradley Studd Medication refill Z76.0 and GERD (gastroesophageal reflux disease) K21.[address] [place], [place] [id number] 11/22/2024 Bradley Studd Main [address] [place], [place] [id number] 12/04/2024 Bradley Studd Main [address] [place], [place] [id number] 12/05/2024 Bradley Studd Main [address] [place], [place] [id number] 12/18/2024 Bradley Studd Type 2 diabetes me llitus with diabetic chronic kidney disease E11.22 and Hypomagnesemia E83.[address] [place], [place] [id number] 01/13/2025 Bradley Studd Vitamin D deficien cy E55.9 Main [address] [id number] 01/20/2025 Bradley Studd [facility] [address] [id number] 02/17/2025 Bradley Studd Medication refill Z76.0 [facility] [address] [id number] 02/24/2025 Bradley Studd Medication refill Z76.0 Main [address], [place] [id number] 03/05/2025 Bradley Studd Type 2 diabetes me llitus with diabetic chronic kidney disease E11.22 and Essential hypertension I10 Main [address] [id number] 03/17/2025 Braldey Studd [facility] [address] [id number] 03/24/2025 Bradley Studd Type 2 diabetes me llitus with diabetic chronic kidney disease E11.22 Assessments Encounter Date Diagnosis (ICD Code) Assessment [...] follwo with A1c recheck in 2 months 03/05/2025 Type 2 diabetes mellitus with diabetic chronic kidney disease (ICD-10 - E11.22) 03/05/2025 Essential hypertension (ICD-10 - I10) 03/24/2025 Type 2 diabetes mellitus with diabetic chronic kidney disease (ICD-10 - E11.22) 11/20/2024 Medication refill (ICD-10 - Z76.0) 12/05/2024 Weakness (ICD-10 - R53.1) pt needs referral for home OT or PT to [facility] with his strength 12/18/2024 Type 2 diabetes mellitus with diabetic chronic kidney disease (ICD-10 - E11.22) 01/13/2025 Vitamin D deficiency (ICD-10 - E55.9) 01/29/2025 Type 2 diabetes mellitus with diabetic chronic kidney disease (ICD-10 - E11.22) Stop the metformin follow in one week for scheduled DM appt if no more vomiting will D/c 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.] as much as he can. PVU 04/23/2024 Elevated TSH (ICD-10 - R79.89) due for labs 05/16/2024 Essential hypertension (ICD-10 - I10) BP reading in acceptable range from home and in office today. Pt should be on Lisinopril with his diabetes but Will hold on adding given his age and risk of hypotension and falls. 05/16/2024 Chronic kidney disease, stage 2 (mild) (ICD-10 - N18.2) Will check albumin/Cr ratio. 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 Discussed having diet low in salt and exercise. 05/16/2024 GERD (gastroesophageal reflux disease) (ICD-10 - K21.9) Needs refill 04/23/2024 Dietary counseling (ICD-10 - Z71.3) 05/16/2024 Hypomagnesemia (ICD-10 - E83.42) Needs refill. Will check labs 04/23/2024 Exercise counseling (ICD-10 - Z71.82) 04/23/2024 Overweight (BMI 25.0-29.9) (ICD-10 - E66.3) Plan Of Treatment No Information Insurance Providers Payer Name Payer Address Payer Phone Subscriber Number Group Number Insured Name Patient Relationship to Insured Coverage Start Date Coverage End Date Medicare NGS PPS [address] [place], [place] [id number] Tomas Frausto Self - patient is the insured 9 Medicaid [employer] [address] [place], [place] [id number] Tomas Frausto Self - patient is the insured 6 [...]
--- OUTSIDE RECORDS SUMMARY | 2025-04-16 09:13 | XMS_ITS | Encounter Summary ---
Author Organization [facility] Address [id number] [address] [place] [address] Care Team Providers Care Delivery Professional Name Role Phone Services, [facility] Primary Care Provider Encounter Details Date Type Department Care Team (Late st Contact Info) Description 09/04/2024 Orders Only [facility] [address] [place] [id number] Vandana Brar, [employer] POLISHER [address] [place] [address] Social History Tobacco Use Types Packs/Day Years [...] hospital to home General Yes Laurie Villar, [employer]ER Note: Evaluation of progress towards goal: discharge home with gnosticist/friends support. <enter goal here> General Yes Sunita Tomlinson LSW Note: Evaluation of progress towards goal: plan home self care SNF General Yes Cathryn Kapadia LSW Note: Evaluation of progress towards goal: Patient likely will discharge to a SNF documented as of this encounter Visit Diagnoses Not on filedocumented in this encounter Care Teams Delivery Professional Relationship Specialty Start Date End Date [facility], [facility] [address] [place] PCP - General Family Medicine 04/16/24 documented as of this encounter
--- OUTSIDE RECORDS SUMMARY | 2025-04-16 09:13 | XMS_ITS | Clinical Summary ---
Author Organization [facility] Address [address] [place] [address] Care Team Providers Care Keno Clerk Name Role Phone Bradley Bejarano Primary Care Provider [phone] Allergies No known active allergies Medications Xarelto [...] Encounters Date Type Department Care Team Description 03/11/2025 2:15 PM EDT Office Visit [facility] [address] [place] [address] Robert Guzman DPM Diabetic ulcer of toe associated with type 2 diabetes mellitus, with fat layer exposed, unspecified laterality (HCC) (Primary Dx); Status post partial amputation of left foot (HCC); Angiopathy, diabetic (HCC); Diabetic polyneuropathy associated with type 2 diabetes mellitus (HCC) 03/11/2025 Bamboo flowsheet [facility] [address] [facility] [address] Robert Guzman DPM 03/11/2025 Travel 03/10/2025 Travel from Last 3 Months Immunizations Immunization Administration Dates Next Due Influenza, seasonal, injectable 04/15/2014 PPD Test 08/24/2021, 2,12/05/2018,11/29/19 19,11/22/2018 Pneumococcal Polysaccharide PPSV23 04/25/2022 Social History Tobacco Use Types Packs/Day Years [...] Care Team (Late st Contact Info) Description 04/16/2025 1:45 PM EDT Office Visit [facility] [address] [place] [phone] Robert Guzman DPM [address] [place] [id number] 05/05/2025 2:15 PM EST Procedure Visit [facility] [address] [place] [phone] Robert Guzman DPM [address], [place] [id number] Health Maintenance Due Date Last Done Comments CT Colonography 1954 Colonoscopy 1954 Colorectal Cancer Screening 1954 FIT-DNA 1954 FIT 1954 FOBT 1954 Sigmoidoscopy 1954 Pneumococcal Vaccine: 65+ Ye ars (2 of 2 - PCV) 04/25/2023 04/25/2022 Influenza Vaccine (#1) 2025 3, 04/25/2022, 04/19/2021, Additional history exists Insurance MEDICARE [place]ICAID [place] Care Teams Keno Clerk Relationship Specialty Start Date End Date Bradley Bejarano PA [address] [place] [address] PCP - General Family Medicine 10/02/24
--- OUTSIDE RECORDS SUMMARY | 2025-04-16 09:13 | XMS_ITS | Encounter Summary ---
Author Organization [facility] tem Address [id number] [address] [place] [address] Care Team Providers Care Metal Welder Name Role Phone Services, [facility] Primary Care Provider Encounter Details Date Type Department Care Team (Late st Contact Info) Description 11/15/2021 Telephone [facility] [address] [place] [id number] Stacy Saldana, SANTY Social History Tobacco Use [...] to home General Yes Villar, Laurie L, SENIOR SOFTWARE TEST ENGINEER-LAY OUT DRAFTER Note: Evaluation of progress towards goal: discharge home with bahai/friends support. <enter goal here> General Yes Sunita Tomlinson, ARTILLERY OFFICER Note: Evaluation of progress towards goal: plan home self care SNF General Yes Cathryn Kapadia, ARTILLERY OFFICER Note: Evaluation of progress towards goal: Patient likely will discharge to a SNF documented as of this encounter Visit Diagnoses Not on filedocumented in this encounter Care Teams Metal Welder Relationship Specialty Start Date End Date [facility], [facility] [address] [place], [place] PCP - General Family Medicine 04/16/24 documented as of this encounter
--- OUTSIDE RECORDS SUMMARY | 2025-04-16 09:13 | XMS_ITS | Encounter Summary ---
Author Organization [facility] tem Address [id number] [address] [place] [address] Care Team Providers Care Coat Room Attendant Name Role Phone Services, [facility], [facility] Primary Care Provider Encounter Details Date Type Department Care Team (Late st Contact Info) Description 11/05/2021 Telephone [facility] [address] [place] [address] Di London CNA Social History [...] transition from hospital to home General Yes Lauire Villar, NEW ACCOUNTS REPRESENTATIVE-MAINTENANCE PIPEFITTER Note: Evaluation of progress towards goal: discharge home with scientology/friends support. <enter goal here> General Yes Sunita Tomlinson, ALANIS Note: Evaluation of progress towards goal: plan home self care SNF General Yes Cathryn Kapadia, DATA VISUALIZATION DEVELOPER Note: Evaluation of progress towards goal: Patient likely will discharge to a SNF documented as of this encounter Visit Diagnoses Not on filedocumented in this encounter Care Teams Coat Room Attendant Relationship Specialty Start Date End Date [facility], [facility], [facility] [address] [place], [place] PCP - General Family Medicine 04/16/24 documented as of this encounter
--- OUTSIDE RECORDS SUMMARY | 2025-04-16 09:13 | XMS_ITS | Encounter Summary ---
Author Organization [facility] tem Address [id number] [address] [place] [address] Care Team Providers Care Humidifier Maintenance Worker Name Role Phone Services, [facility] Primary Care Provider Reason for Referral * Cardiology (Routine) - Pending Review Specialty Diagnoses / Procedures Referred By Fly chowdhury Referred To Contact Diagnoses Preoperative clearance Coronary artery disease involving [place] coronary artery of [place] heart without angina pectoris Procedures Nuc stress Lexiscan Vandana Brar APRN-CNP [address] [place] [address] Phone: tel: fax: Referral ID Status Reason Start Date Expiration Date V isits Requested Visits Authorized [id number] Pending Review 10/21/2024 10/21/2025 5 5 Encounter Details Date Type Department Care Team (Late st Contact Info) Description 10/21/2024 Orders Only [facility] [address] [place] [address] Vandana Brar APRN-CNP [address] [place] [address] Preoperative clearance (Primary Dx); Coronary artery disease involving [place] coronary artery of [place] heart without angina pectoris Social History Tobacco [...] to home General Yes Laurie Villar, HEAD STRENGTH AND CONDITIONING COACH-ARMHOLE RAISER LOCKSTITCH Note: Evaluation of progress towards goal: discharge [...] systolic cavity size is normal. Vandana Brar HEAD STRENGTH AND CONDITIONING COACH-ARMHOLE RAISER LOCKSTITCH CV STRESS ORDERABLES Fi nal Result documented in this encounter Visit Diagnoses Diagnosis Preoperative clearance- Primary Unspecified pre-operative examination Coronary artery disease involving [place] coronary artery of [place] heart without angina pectoris Preoperative clearance Unspecified pre-operative examination Coronary artery disease involving [place] coronary artery of [place] heart without angina pectoris documented in this encounter Care Teams Humidifier Maintenance Worker Relationship Specialty Start Date End Date [facility], [facility] [address] [place], [place] PCP - General Family Medicine 04/16/24 documented as of this encounter
--- OUTSIDE RECORDS SUMMARY | 2025-04-16 09:13 | XMS_ITS | Encounter Summary ---
Author Organization [facility] tem Address [facility]-[id number] [address] [place] [address] Care Team Providers Care Crusher Assembler Name Role Phone Services, [facility] Primary Care Provider Encounter Details Date Type Department Care Team (Late st Contact Info) Description 11/12/2021 Telephone [facility] [address] [place] [address] Di London CNA Social History [...] hospital to home General Yes Laurie Villar, GIMP BUTTONHOLE MACHINE OPERATOR-LICENSED NUCLEAR OPERATOR Note: Evaluation of progress towards goal: discharge home with advent/friends support. <enter goal here> General Yes Sunita Tomlinson, ALANIS Note: Evaluation of progress towards goal: plan home self care SNF General Yes Cathryn Kapadia, CHANGE ROOM ATTENDANT Note: Evaluation of progress towards goal: Patient likely will discharge to a SNF documented as of this encounter Visit Diagnoses Not on filedocumented in this encounter Care Teams Crusher Assembler Relationship Specialty Start Date End Date [facility], [facility] [address] [place], [place] PCP - General Family Medicine 04/16/24 documented as of this encounter
--- OUTSIDE RECORDS SUMMARY | 2025-04-16 09:13 | XMS_ITS | Encounter Summary ---
Author Organization [facility] tem Address [id number] [address] [place] [address] Care Team Providers Care Instructor Adjunct Pharmacy Technician Name Role Phone Services, [facility] Primary Care Provider Encounter Details Date Type Department Care Team (Late st Contact Info) Description 08/31/2021 Orders Only [facility] [address] [place] [phone] Mariana Wade, SHAKER REPAIRER-LINE MAINTAINER SECTION [address] [place], [place] [address] AICD present, double chamber- [employer] Social History [...] of progress towards goal: discharge home with jain/friends support. <enter goal here> General Yes Sunita [...] [employer] documented in this encounter Care Teams Instructor Adjunct Pharmacy Technician Relationship Specialty Start Date End Date Services, [facility] [address] [place], [place] PCP - General Family Medicine 04/16/24 documented as of this encounter
--- OUTSIDE RECORDS SUMMARY | 2025-04-16 09:14 | XMS_ITS | Patient Health Record ---
Author Organization [facility] in [place] Address [address] [place] [address] Care Team Providers Care Title Checker Name Role Phone Radha Thapa Primary Care Provider Unavailreg Swain Juan Unavailable [phone] Allergies No Known Allergies Results Component Value Reference Range Notes CBC AND AUTO DIFF * (Not yet reviewed by provider) Interpretation: Performing Lab:[address] [place]. [address] PH:[phone] Notes/Report: WBC COUNT 5.9 4.0-11.0 X10E9/L RBC [...] BASOPHIL 0.0 0.0-0.2 X10E9/L PERFORM ED AT [address] [place] [address] CT FOOT LT WO CON (Not yet r eviewed by provider) Interpretation: Performing Lab: Notes/Report: Source Facility: [place] [address] CT Scan Report Signed Patient: RADHA QUIÑONES MR#: [id number] : 1955 Acct:[id number] Age/Sex: 69 / M ADM Date: 07/31/24 Loc: CT Attending Dr: Mariana Solomon D.P.M. Ordering Physician: Mariana Solomon D.P.M. Date of Service: 07/31/24 Procedure(s): CT foot LT wo con Accession Number(s): [id number] cc: IZZY SAM [place] [address] Patient Name: RADAH QUIÑONES MRN: [id number] date: 1955 Sex: M Assigned Patient Location: CT Current Patient Location: Accession/Order Number: [id number] Exam Date: 07/31/2024 13:15 Report Date: 08/02/2024 [...] Robert Moore M.D. Signed By: 08/02/2435 DD/ TD/TT: Sheep Sticker: CBC AUTO DIFF (Not yet revie wed by provider) Interpretation: Performing Lab: Notes/Report: [facility] , White Blood Count 5.3 4.0-11.0 [...] Lab: see note ML - The [facility] LB PTT (Not yet reviewed by pro vider) Interpretation: Performing Lab: Notes/Report: [facility] , Partial Thromboplastin Time 35.8 22.3-36.2 sec Performing Lab: see note - [facility] LB Prothrombin Time INR (Not ye t reviewed by provider) Interpretation: Performing Lab: Notes/Report: [facility] , Prothrombin Time 12.8 9.0-11.6 sec INR 1.23 2.5-3.5 FOR PROSTHETIC HEART VALVE REPLACEMENT DESIRED INR: 2.5-3.5 RECURRENT THROMBOSIS 2.0-3.0 CONDITIONS NOT LISTED BELOW Performing Lab: see note ML - [facility] LB XR chest 2V (Not yet reviewe d by provider) Interpretation: Performing Lab: Notes/Report: Source Facility: [facility]-[address] [place] [address] [place] [address] XRay Report Signed Patient: RADHA QUIÑONES MR#: [id number] : 1955 Acct:[id number] Age/Sex: 69 / M ADM Date: 10/23/24 Loc: [facility] Attending Dr: Mariana Solomon D.P.M. Ordering Physician: Mariana Solomon D.P.M. Date of Service: 10/23/24 Procedure(s): XR chest 2V Accession Number(s): [id number] cc: IZZY SAM ; Mariana Solomon D.P.M. The [place] [address] Patient Name: RADHA QUIÑONES MRN: [id number] date: 1955 Sex: M Assigned Patient Location: [facility] Current Patient Location: [facility] Accession/Order Number: [id number] Exam Date: 10/23/2024 15:07 Report Date: 10/23/2024 [...] Rodri Shrestha M.D.10/23/2024 3:08 PM Dictation Location: [place] [address] Electronically authenticated by: [id number] Y Date: 10/23/2024 15:08 Dictated By: Rodri Shrestha D.O. Signed By: 10/23/24 1510 DD/ 1508 TD/TT: Sheep Sticker: MICROALBUMIN WITH RATIO Reviewed date:02/17/2025 03:33:23 PM Interpretation: Performing Lab: Notes/Report: URINE CREATININE,RDM 54.83 MALB/CREAT RATIO 180.6 0.0-30.0 mg/g MICROALBUMIN, URINE 9.9 0.0-1.9 mg/dL PERFORM ED AT [address] [place] [address] PTHI ([facility]) Reviewed date:02/17/2025 03:33:26 PM Interpretation: Performing Lab: Notes/Report: PTH INTACT 75 12-88 pg/mL PERFORMED AT [address] [place], [place] [id number] VITAMIN D 25 HYD TOT Reviewed date:02/17/2025 03:33:18 PM Interpretation: Performing Lab: Notes/Report: VITAMIN D 25 HYD TOT 36.6 30.0-100.0 ng/mL Deficiency <20 ng/mL Vitamin D status 25 [place] Vitamin D NOTE: A pediatric reference range has not been established by the dynamic balancer of this kit. The [place] [employer] recommends a Vitamin D level of = or >20ng/mL in infants and children. -- Toxicity >100 ng/mL PERFORMED AT [address], [place] [address] Sufficiency 30-100 ng/mL Insufficiency 20-29 ng/mL URINALYSIS Reviewed date:02/17/2025 04:08:42 PM Interpretation: Performing Lab: Notes/Report: COLOR Yellow Yellow TURBIDITY Clear Clear SPECIFIC GRAVITY 1.031 1.003-1.035 NA NITRITE Positive Negative PH,URINE 5.5 5.0-8.5 NA LEUKOCYTE ESTERASE Small Negative High Conc entrations of Glucose May Decrease the Reactivity of the Dipstick Leukocyte Test Pad. PROTEIN Trace Negative KETONES (URINE) Negative Negative UROBILINOGEN <1.1 eu/dL <1.1 eu/dL BILIRUBIN (URINE) Negative Negative BLOOD/HGB Negative Negative MUCOUS Present None R.B.CELLS 3 0-5 NA W.B.CELLS 9 0-5 NA GLUCOSE (URINE) >1000 mg/[place] [address] URIC ACID Reviewed date:02/17/2025 04:04:25 PM Interpretation: Performing Lab: Notes/Report: URIC ACID 6.2 2.6-7.2 mg/dL PERFORMED AT [address] [address] PHOSPHORUS Reviewed date:02/17/2025 04:04:35 PM Interpretation: Performing Lab: Notes/Report: PHOSPHORUS 3.5 2.4-4.9 mg/dL PERFORMED AT [address] [address] MAGNESIUM Reviewed date:02/17/2025 04:04:44 PM Interpretation: Performing Lab: Notes/Report: MAGNESIUM 2.1 1.8-2.6 mg/dL PERFORMED AT [address] [address] ALBUMIN Reviewed date:02/17/2025 03:33:33 PM Interpretation: Performing Lab: Notes/Report: ALBUMIN 4.2 3.2-5.3 g/dL PERFORMED AT [address] [address] CBC (COMPLETE BLOOD COUNT) * Reviewed date:02/17/2025 04:05:28 PM Interpretation: Performing Lab: Notes/Report: WBC 6.3 4-11 x10E9/L RBC COUNT 4.29 4.1-5.7 X10E12/L HEMOGLOBIN 11.6 13-17 g/dL HEMATOCRIT 36.1 39-50 % MCV 84 80-100 fL MCH 27.0 27-34 pg MCHC 32.2 32-36 g/dL RDW 16.2 11.5-15 % PLATELET COUNT 266 150-450 X10E9/L MPV 8.0 7-12 fL PERFORMED AT [address], [place] [address] BMP w/GFR Reviewed date:02/17/2025 04:07:21 PM Interpretation: Performing Lab: Notes/Report: SODIUM 138 134-146 mmol/L POTASSIUM 4.6 3.5-5.0 mmol/L CHLORIDE 99 98-109 mmol/L CARBON DIOXIDE 28 22-32 mmol/L ANION GAP 11 5-15 mmol/L BLOOD UREA NITROGEN 16 5-27 mg/dL CREATININE 1.30 0.60-1.30 mg/dL METHOD TRACE ABLE TO IDMS STANDARD GLUCOSE 203 65-99 mg/dL CALCIUM 9.1 8.5-10.5 mg/dL EGFR (CKD-EPI) NON-RACE DEPENDENT 59 >=60 ml/min/1.73sq.m CKD-EPI 2020 equation [place] [address] Reported eGFR is based on the not use a race coefficient. XR foot LT min 3V (Not yet r eviewed by provider) Interpretation: Performing Lab: Notes/Report: Source Facility: [place] [address] [place] [address] XRay Report Signed Patient: RADHA QUIÑONES MR#: [id number] : 1955 Acct:[id number] Age/Sex: 69 / M ADM Date: 11/12/24 Loc: SURGOUT Attending Dr: Mariana Solomon D.P.M. Ordering Physician: Mariana Solomon D.P.M. Date of Service: 11/12/24 Procedure(s): XR foot LT min 3V Accession Number(s): [id number] cc: IZZY SAM ; Mariana Solomon D.P.M. [place] [address] Patient Name: RADHA QUIÑONES MRN: [id number] date: 1955 Sex: M Assigned Patient Location: [facility] Current Patient Location: [facility] Accession/Order Number: [id number] Exam Date: 11/12/2024 14:31 Report Date: 11/12/2024 [...] Aranda M.D. 11/12/2024 2:33 PM Dictation Location: [place] [address] Electronically authenticated by: [id number] Y Date: 11/12/2024 14:33 Dictated By: Rafita Aranda M.D. Signed By: 11/12/24 1435 DD/ 32 TD/TT: Sheep Sticker: PROF KAYODE Antunez ([facility]) (Not yet reviewed by provider) Interpretation: Performing Lab: Notes/Report: [facility] , Sodium 134 136-145 mmol/L Potassium [...] Lab: see note ML - [facility] LB VC SEGMENTAL PRESSURES (Not yet reviewed by provider) Interpretation: Performing Lab: Notes/Report: Source Facility: [facility]-[address] [place] [address] [place] [address] Vein Report Signed Patient: RADHA QUIÑONES MR#: [id number] : 1955 Acct:[id number] Age/Sex: 69 / M ADM Date: 08/01/24 Loc: VC Attending Dr: Mariana Solomon D.P.M. Ordering Physician: Mariana Solomon D.P.M. Date of Service: 08/01/24 Procedure(s): VC SEGMENTAL PRESSURES Accession Number(s): [id number] cc: IZZY SAM ; Mariana Solomon D.P.M. The [place] [address] Patient Name: RADHA QUIÑONES MRN: [id number] date: 1955 Sex: M Assigned Patient Location: Current Patient Location: VC Accession/Order Number: [id number] Exam Date: 08/01/2024 13:16 Report Date: 08/01/2024 [...] M.D. Signed By: 08/01/241617 DD/ 14 TD/TT: Sheep Sticker: HGB A1C (GLYCO-HGB) (Not yet reviewed by provider) Interpretation: Performing Lab:[facility]), [address] [place] [address] AVE[address] SUITE [facility], [place]. [address] PH:[phone] Notes/Report: HEMOGLOBIN A1C 8.7 4.4-5.6 % Result HgbA1c the half-life of red blood cells and in vivo glycation rates are Diabetes : > 6.4 % affected. Normal : less than 5.7 % Use with caution in patients with abnormal hemoglobin variants as Prediabetes : 5.7 % to 6.4 % NOTE ADA Guidelines AVERAGE GLUCOSE 203 PERFOR[address] [address] ESR (Not yet reviewed by pro vider) Interpretation: Performing Lab:[facility]), [address] [place], [place] [address]E., [place] [address], [place]. [address] PH:[phone] Notes/Report: ESR, ERYTHROCYTE SEDIMENTATION RATE 47 0-20 mm/h PERFORMED AT [address] [place] [address],[place] [address] CRP (Not yet reviewed by pro vider) Interpretation: Performing Lab:[facility], [address] [place] [address]. [address] PH:[phone] Notes/Report: C REACTIVE PROTEIN 1.9 0.000-0.744 mg/dL PERF ORMED AT [address] [place] [address] Reason For Referral No Information Medications Medication SIG (Take, Route, Frequency, Duration) Notes Start Date End Date Status Lactobacillus Active Jardiance 25 MG 1 tablet Orally Once a day Active Acidophilus Probiotic 100 MG as directed Orally Not-T aking Insulin Glargine 100 UNIT/ML as directed Subcutaneous Active Xarelto 20 MG 1 tablet with food Orally Once a day Active Cephalexin 500 MG 1 capsule Orally BID Active Vitamin D3 25 MCG (1000 UT) 1 capsule Orally Once a day Active Atorvastatin Calcium 20 MG 1 tablet Orally Once a day Active traMADol HCl 50 MG 1 tablet as needed Orally every 8 hours Active Aspirin 81 81 MG 1 tablet Orally Once a day Active Tamsulosin HCl 0.4 MG 2 capsule Orally Once a day Active Ammonium Lactate 12 % 1 application Externally Twice a day Active Sertraline HCl 50 MG 1 tablet Orally Once a day Active Amiodarone HCl 200 MG 1 tablet Orally Once a day Active Ozempic (0.25 or 0.5 MG/DOSE) Active Acetaminophen Active Metoprolol Succinate ER 100 MG 1 tablet Orally Once a day Active metFORMIN HCl ER 500 MG 2 tablets orally BID Not-Taking Pantoprazole Sodium 40 MG 1 tablet 1/2 to 1 hour before morning meal Orally Once a day Not-Taking Magnesium Oxide 400 MG 1 tablet with food Orally Once a day Active Lac-Hydrin 12% lotion 1 application externally twice a day Not-Taking Basaglar KwikPen 100 UNIT/ML as directed Subcutaneous Not-Taking Problems Problem Type SNOMED Code ICD Code Onset Dates Problem Status W/U Status Risk Notes Problem Foot ulcer due to type 2 diabetes mellitus (9105035633939) Type 2 diabetes mellitus with foot ulcer (E11.621) Active confirmed Problem Urinary incontinence (074464436) Urinary incontinence (R32) Active confirmed Problem Diabetes mellitus type 2 (disorder) (38772033) DM2 (diabetes mellitus, type 2) (E11.9) Active confirmed Problem Non-pressure chronic ulcer of left heel and midfoot limited to breakdown of skin (L97.421) Active confirmed Problem Chronic ulcer of foot (729755646) Non-pressure chronic ulcer of left heel and midfoot with fat layer exposed (L97.422) Active confirmed Problem Infected skin ulcer limited to breakdown of skin (L98.491) Active confirmed Problem Foot ulcer due to type 2 diabetes mellitus (1364113152909) Diabetes mellitus with foot ulcer due to multiple causes (E11.621) Active confirmed Problem Hyperglycemia due to type 2 diabetes mellitus (485742163443599) Controlled type 2 diabetes mellitus with hyperglycemia (E11.65) Active confirmed Problem Chronic foot ulcer, limited to breakdown of skin, left (L97.521) Active confirmed Problem Diabetic peripheral neuropathy associated with type 2 diabetes mellitus (6023282553700) Controlled type 2 diabetes mellitus with neuropathy (E11.40) Active confirmed Problem Essential hypertension (09649413) Asymptomatic hypertension (I10) Active confirmed Problem Peripheral vascular disease (654557770) Angiopathy, peripheral (I73.9) Active confirmed Problem 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) Active confirmed Problem Non-pressure chronic ulcer of left heel and midfoot with other specified severity (L97.428) Active confirmed Problem 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) Active confirmed Problem Chronic kidney disease stage 3B (disorder) (237146908) Chronic kidney disease, stage 3b (N18.32) Active confirmed Problem Chronic kidney disease stage 3A (disorder) (876464502) Chronic kidney disease (CKD) stage G3a/A2, moderately decreased glomerular filtration rate (GFR) between 45-59 mL/min/1.73 square meter and albuminuria creatinine ratio between 30-299 mg/g (N18.31) Active confirmed Problem Chronic ulcer of left heel (disorder) (3694047476035636 5) Chronic ulcer of left heel limited to breakdown of skin (L97.421) Active confirmed Vital Signs Blood pressure diastolic 80 mm Hg 04/14/2025 Height 5 ft 9 in in 04/14/2025 Blood pressure systolic 122 mm Hg 04/14/2025 Encounters Encounter Location Date Provider Diagnosis [facility] [address] [place] [phone] 12/23/2024 Juan Swain Chronic kidney disease, stage 3b N18.32 ; DM2 (diabetes mellitus, type 2) E11.9 and Asymptomatic hypertension I10 [facility] [address] [place] [phone] 01/27/2025 Juan Swain Type 2 diabetes mellitus with foot ulcer E11.621 ; Chronic kidney disease, stage 3b N18.32 and Asymptomatic hypertension I10 [facility] [address] [place] [phone] 04/14/2025 Juan Swain Type 2 diabetes mellitus with foot ulcer E11.621 ; Asymptomatic hypertension I10 ; Chronic kidney disease (CKD) stage G3a/A2, moderately decreased glomerular filtration rate (GFR) between 45-59 mL/min/1.73 square meter and albuminuria creatinine ratio between 30-299 mg/g N18.31 and Urinary incontinence R32 [facility] [address] [place] [address] 12/11/2024 Juan Swain [facility] [address] [place] [phone] 04/14/2025 Juan Swain Assessments Encounter Date Diagnosis (ICD [...] to stop metformin if GFR declines further 04/14/2025 Type 2 diabetes mellitus with foot ulcer (ICD-10 - E11.621) 04/14/2025 Asymptomatic hypertension (ICD-10 - I10) 04/14/2025 Chronic kidney disease (CKD) stage G3a/A2, moderately decreased glomerular filtration rate (GFR) between 45-59 mL/min/1.73 square meter and albuminuria creatinine ratio between 30-299 mg/g (ICD-10 - N18.31) Cr is stable in the CKD 3 range, at 1.3 CBC and electrolytes are OK Continue SGLT2 for management of CKD and DM He is requesting urology evaluation for his incontinence issues, currently wearing a brief He deneis any UTI symptoms at this time No edema present on exam today Albuminuria remains mild No edema present on exam today F/U labs and BP check in 1 year Encourage good DM control Avoid all NSAID use 01/27/2025 Asymptomatic hypertension (ICD-10 - I10) 12/23/2024 Asymptomatic hypertension (ICD-10 - I10) 04/14/2025 Urinary incontinence (ICD-10 - R32) Plan Of Treatment Pending Test Test Name Order Date UA (URINALYSIS, COMPLETE) 12/23/2024 UA (URINALYSIS, COMPLETE) 01/27/2025 UA (URINALYSIS, COMPLETE) 04/14/2025 ALBUMIN, BLOOD 04/14/2025 ALBUMIN, BLOOD 01/27/2025 ALBUMIN, BLOOD 12/23/2024 MAGNESIUM 12/23/2024 MAGNESIUM 01/27/2025 MAGNESIUM 04/14/2025 CBC NO DIFF 04/14/2025 CBC NO DIFF 01/27/2025 CBC NO DIFF 12/23/2024 PHOSPHORUS 12/23/2024 PHOSPHORUS 01/27/2025 PHOSPHORUS 04/14/2025 PTH INTACT (PARATHYROID HORMONE) 025 PTH INTACT (PARATHYROID HORMONE) 025 PTH INTACT (PARATHYROID HORMONE) 025 URIC ACID 12/23/2024 URIC ACID 01/27/2025 URIC ACID 04/14/2025 VITAMIN D, 25 LEVEL (TOTAL) 04/14/2025 VITAMIN D, 25 LEVEL (TOTAL) 01/27/2025 VITAMIN [...] 10/23/2024 VC SEGMENTAL PRESSURES 08/01/2024 MICROALBUMIN w PULP MIXER RATIO 12/23/2024 BMP (BASIC MET PANEL) w/eGFR CKD-EPI BMP (BASIC MET PANEL) w/eGFR CKD-EPI BMP (BASIC MET PANEL) w/eGFR CKD-EPI MICROALBUMIN w CREAT RATIO 01/27/2025 MICROALBUMIN w CREAT RATIO 04/14/2025 Next Appt Details Provider Name:Juan Gottlieb Wiliam, 04/13/2026 12:00:00 PM, [address], [place], [address], Insurance Providers Payer Name Payer Address Payer Phone Subscriber Number Group Number Insured Name Patient Relationship to Insured Coverage Start Date Coverage End Date [place] [address] [place] [address] [id number] Lincolndavon Radha Self - patient is the insured 3 [place] 2ND INS [address] OFF[place] OF [place], [place] [id number] LincolnRadha mays Self - patient is the insured Medical (General) History Medical History History ICD Code cardiac pacemaker with defibrillator typre 2 DM urinary incontinence without sensory sameera reness excoriation of scalp HTN a fib anemia Surgical History Surgery Date(Month/Year) cataract extraction- bilateral skin cancer removal on right hand 5 cardiac pacemaker/ defibrillation three toes removed from left foot 2022 Hospitalization History Reason Date(Month/Year) back and foot pain
--- OUTSIDE RECORDS SUMMARY | 2025-04-16 09:14 | XMS_ITS | Encounter Summary ---
Author Organization [facility] tem Address [id number] [address] [place] [address] Care Team Providers Care Commercial Sales Consultant Name Role Phone Services, [facility] Primary Care Provider Encounter Details Date Type Department Care Team (Late st Contact Info) Description 01/28/2022 Telephone [facility] [address] [place] [phone] Di London CNA Social History Tobacco Use [...] hospital to home General Yes Laurie Villar, WAFER FAB OPERATOR-VISITING HOUSEKEEPER Note: Evaluation of progress towards goal: discharge home with judaism/friends support. <enter goal here> General Yes Sunita Tomlinson, ALANIS Note: Evaluation of progress towards goal: plan home self care SNF General Yes Cathryn Kapadia, CARE PROFESSIONALS Note: Evaluation of progress towards goal: Patient likely will discharge to a SNF documented as of this encounter Visit Diagnoses Not on filedocumented in this encounter Care Teams Commercial Sales Consultant Relationship Specialty Start Date End Date [facility], [facility] [address] [place], [place] PCP - General Family Medicine 04/16/24 documented as of this encounter
--- OUTSIDE RECORDS SUMMARY | 2025-04-16 09:14 | XMS_ITS | Encounter Summary ---
Author Organization [facility] Address [id number] [address] [place] [address] Care Team Providers Care Lay Up Operator Name Role Phone Services, [facility] Primary Care Provider Encounter Details Date Type Department Care Team (Late st Contact Info) Description 09/07/2016 Documentation [facility] [address] [place] [phone] Frederic Thorne MD [address] [place] [address] Social History Tobacco Use Types Packs/Day Years [...] documented as of this encounter Care Teams Lay Up Operator Relationship Specialty Start Date End Date Services, [facility] [address] [place], [place] PCP - General Family Medicine 04/16/24 documented as of this encounter
--- OUTSIDE RECORDS SUMMARY | 2025-04-16 09:14 | XMS_ITS | Encounter Summary ---
Author Organization [facility] Address [id number] [address] [place] [address] Care Team Providers Care Melter Clerk Name Role [facility] Provider Encounter Details Date Type Department Care Team (Late st Contact Info) Description 09/07/2016 Documentation [facility] [address] [place] [address] [address] [place] [phone] Frederic Thorne MD [address] [place] [address] Social History Tobacco Use Types Packs/Day Years [...] documented as of this encounter Care Teams Melter Clerk Relationship Specialty Start Date End Date Services, [facility], [facility] [address] [place], [place] PCP - General Family Medicine 04/16/24 documented as of this encounter
--- OUTSIDE RECORDS SUMMARY | 2025-04-16 09:14 | XMS_ITS | Encounter Summary ---
Author Organization [employer] [facility] tem Address [id number] [address] [place] [address] Care Team Providers Care Elevated Motorman Name Role Phone Services, [facility] Primary Care Provider Encounter Details Date Type Department Care Team (Late st Contact Info) Description 12/16/2021 Telephone [facility] [address] [place] [phone] Stacy Saldana, SANTY Social History Tobacco Use [...] hospital to home General Yes Laurie Villar, PACKAGING COORDINATOR-SKATES OPERATOR Note: Evaluation of progress towards goal: discharge home with christianity/friends support. <enter goal here> General Yes Sunita Tomlinson, ALANIS Note: Evaluation of progress towards goal: plan home self care SNF General Yes Cathryn Kapadia, VESSEL ORDINARY SEAMAN Note: Evaluation of progress towards goal: Patient likely will discharge to a SNF documented as of this encounter Visit Diagnoses Not on filedocumented in this encounter Care Teams Elevated Motorman Relationship Specialty Start Date End Date [facility], [facility] [address] [place], [place] PCP - General Family Medicine 04/16/24 documented as of this encounter
--- OUTSIDE RECORDS SUMMARY | 2025-04-16 09:14 | XMS_ITS | Encounter Summary ---
Author Organization [facility] Sys tem Address [id number] [address] [place] [address] Care Team Providers Care Intrusion Analyst Name Role Phone Services, [facility] Primary Care Provider Encounter Details Date Type Department Care Team (Late st Contact Info) Description 12/07/2021 Orders Only [facility] [address] [place] [phone] Janelle James CMA AICAlexa present, double chamber [...] hospital to home General Yes Laurie Villar, CLINICAL RESOURCE MANAGER-PROOFER PREPRESS Note: Evaluation of progress towards goal: discharge home with islam/friends support. <enter goal here> General Yes Sunita Tomlinson LSW Note: Evaluation of progress towards goal: plan home self care SNF General Yes Cathryn Kapadia, CLINIC SCHEDULER Note: Evaluation of progress towards goal: Patient likely will discharge to a SNF documented as of this encounter Procedures Procedure Name Priority Date/Time Associated Diagnosis Comments DEVICE INTERROGATION Routine 12/07/2021 AICD present, double chamber documented in this encounter Results * Device Interrogation (12/07/2021) Anatomical Region Laterality Modality Other Mariana Wade APRN-PROOFER PREPRESS CV CARDIAC SERVICES OR DERABLES Final Result documented in this encounter Visit Diagnoses Diagnosis AICD present, double chamber documented in this encounter Care Teams Intrusion Analyst Relationship Specialty Start Date End Date Services, [facility] [address] [place], [place] PCP - General Family Medicine 04/16/24 documented as of this encounter
--- OUTSIDE RECORDS SUMMARY | 2025-04-16 09:14 | XMS_ITS | Encounter Summary ---
Author Organization [facility] Sys tem Address [facility] [place]-[id number] [address] [place] [address] Care Team Providers Care Barrel Coater Name Role Phone Services, [facility] Primary Care Provider Encounter Details Date Type Department Care Team (Late st Contact Info) Description 06/06/2022 Orders Only [facility] [address] [place] [phone] Mariana Wade, TOBACCO STRIPPER HAND-ODD JOB WORKER [address] [place], [place] [id number] ICD (implantable cardioverter-defibrill ator) in place Social [...] hospital to home General Yes Laurie Villar, TOBACCO STRIPPER HANDINNA Note: Evaluation of progress towards goal: discharge [...] place documented in this encounter Care Teams Barrel Coater Relationship Specialty Start Date End Date [facility], [address] PCP - General Family Medicine 04/16/24 documented as of this encounter
--- OUTSIDE RECORDS SUMMARY | 2025-04-16 09:14 | XMS_ITS | Encounter Summary ---
Author Organization [facility] Sys tem Address [id number] [address] [place] [address] Care Team Providers Care Automotive Technology Instructor Name Role Phone Services, [facility] Primary Care Provider Encounter Details Date Type Department Care Team (Late st Contact Info) Description 09/04/2020 Orders Only [facility] [address] [place] [phone] External, Scanning Provider Social History Tobacco Use [...] hospital to home General Yes Laurie Villar, CLIP AND HANGER ATTACHER-SALON SUPERVISOR Note: Evaluation of progress towards goal: [...] on filedocumented in this encounter Care Teams Automotive Technology Instructor Relationship Specialty Start Date End Date Services, [facility] [address] [place], [place] PCP - General Family Medicine 04/16/24 documented as of this encounter
--- OUTSIDE RECORDS SUMMARY | 2025-04-16 09:14 | XMS_ITS | Encounter Summary ---
Author [facility] Address [facility] [id number] [address] [place] [address] Care Team Providers Care Drawing Box Tender Name Role Phone Services, [facility] Primary Care Provider Reason for Visit * Reason Onset Date Comments Med Refill 11/25/2022 Encounter Details Date Type Department Care Team (Late st Contact Info) Description 11/25/2022 Refill [facility] [address] [place] [phone] Zac Sherman, RN Med Refill Social History [...] hospital to home General Yes Laurie Villar, WEB OFFSET PRESS FEEDER-OPEN TENTER OPERATOR Note: Evaluation of progress towards goal: discharge home with muslim/friends support. <enter goal here> General Yes Sunita Tomlinson, PROOF CLERK Note: Evaluation of progress towards goal: plan home self care SNF General Yes Cathryn Kapadia, PROOF CLERK Note: Evaluation of progress towards goal: Patient likely will discharge to a SNF documented as of this encounter Results * (ABNORMAL) CBC without diff (04/06/2023 12:40 PM EDT) White Blood Cells 8.1 4.0 - 11.0 X10E9/L 04/06/2023 8:17 PM EDT [facility] RBC count 4.49 4.10 - 5.70 X10E12/L 04/06/2023 8:17 PM EDT [facility] Hemoglobin 13.3 13.0 - 17.0 g/dL 04/06/2023 8:17 PM EDT [facility] Hematocrit 41.1 39 - 49 % 04/06/2023 8:17 PM EDT [facility] MCV 92 80 - 100 fL 04/06/2023 8:17 PM EDT [facility] MCH 29.5 27 - 34 pg 04/06/2023 8:17 PM EDT [facility] MCHC 32.3 32 - 36 g/dL 04/06/2023 8:17 PM EDT [facility] RDW 15.6(H) 11.5 - 15.0 % 04/06/2023 8:17 PM EDT [facility] Platelets 375 150 - 450 X10E9/L 04/06/2023 8:17 PM EDT [facility] MPV 7.9 7 - 12 fL 04/06/2023 8:17 PM EDT [facility] Blood / Unknown 04/06/2023 1 2:40 PM EDT 04/06/2023 12:41 PM EDT us Wilmer Conti WEB OFFSET PRESS FEEDER-OPEN TENTER OPERATOR LAB BLOOD ORDERABLES Final Result [facility] [address] [facility], [address] [place] [address] documented in this encounter Visit Diagnoses Diagnosis Atrial fibrillation with RVR (CMS-HCC)- Primary documented in this encounter Care Teams Drawing Box Tender Relationship Specialty Start Date End Date [facility], [facility] [address] [place], [place] PCP - General Family Medicine 04/16/24 documented as of this encounter
--- OUTSIDE RECORDS SUMMARY | 2025-04-16 09:14 | XMS_ITS | Encounter Summary ---
Author Organization [facility] Sys tem Address [id number] [address] [place] [address] Care Team Providers Care Code Clerk Name Role Phone Services, [facility] Primary Care Provider Encounter Details Date Type Department Care Team (Late st Contact Info) Description 05/08/2020 Orders Only [facility] [address] [place] [phone] External, Scanning Provider Social History Tobacco Use [...] hospital to home General Yes Laurie Villar, MEDICAL BILLING ASSISTANT-EMBROIDERY CUTTER Note: Evaluation of progress towards goal: discharge [...] documented as of this encounter Care Teams Code Clerk Relationship Specialty Start Date End Date Services, [facility] [address] [place], [place] PCP - General Family Medicine 04/16/24 documented as of this encounter
--- OUTSIDE RECORDS SUMMARY | 2025-04-16 09:15 | XMS_ITS | Encounter Summary ---
Author Organization [employer] [facility] [employer] Address [id number] [address] [place] [address] Care Team Providers Care Electric Welder Name Role Phone Services, [facility] Primary Care Provider Encounter Details Date Type Department Care Team (Late st Contact Info) Description 07/28/2020 [facility] [address] [facility] [place] [place] [phone] Dwain Lynn MD [address] [place] [address] Social History Tobacco Use Types Packs/Day Years [...] If that doesn't work, patient to call [facility] [facility] [employer] at . Marlene Nunez RN 07/28/20 1004 documented in this encounter Plan of Treatment Not on file documented as of this encounter Goals Goal Patient Goal Type Associated Problems Recent Progress Patient-Stated? Author safe transition from hospital to home General Yes Laurie Villar, PATIENT SUPPORT REPRESENTATIVE-BACK CLOSER Note: Evaluation of progress towards goal: discharge home with hinduism/friends support. <enter goal here> General Yes Sunita Tomlinson LSW Note: Evaluation of progress towards goal: plan home self care documented as of this encounter Visit Diagnoses Not on filedocumented in this encounter Care Teams Electric Welder Relationship Specialty Start Date End Date Services, [facility] [address] [place], [place] PCP - General Family Medicine 04/16/24 documented as of this encounter
--- OUTSIDE RECORDS SUMMARY | 2025-04-16 09:15 | XMS_ITS | Encounter Summary ---
Author Organization [employer] Sys [employer] Address [facility] [place]-[id number] [address] [place] [address] Care Team Providers Care Hydrate Thickener Operator Name Role Phone Services, [facility] Primary Care Provider Encounter Details Date Type Department Care Team (Late st Contact Info) Description 07/28/[address] [facility] [facility] [address] [facility] [place] [phone] Dwain Lynn MD [address] [place] [address] Social History Tobacco Use Types Packs/Day Years [...] hospital to home General Yes Laurie Villar, VACUUM SYSTEM TESTER-BARBER SHOP MANAGER Note: Evaluation of progress towards goal: discharge home with tenriism/friends support. <enter goal here> General Yes Sunita Tomlinson LSW Note: Evaluation of progress towards goal: plan home self care documented as of this encounter Visit Diagnoses Not on filedocumented in this encounter Care Teams Hydrate Thickener Operator Relationship Specialty Start Date End Date Services, [facility] [address] [place], [place] PCP - General Family Medicine 04/16/24 documented as of this encounter
--- OUTSIDE RECORDS SUMMARY | 2025-04-16 09:15 | XMS_ITS | CCD ---
Author Organization [facility] Care Team Providers Care Rn Travel Name Role Phone MARIANA GUTIÉRREZ Attending Unavailable [...] Consulting Unavailable MARIANA GUTIÉRREZ Attending Unavailable Services, [facility] Primary Care Provider Services, [facility] Primary Care Provider Services, [facility] Primary Care Provider GRETTA WHITLOCK Admitting Unavailable GRETTA WHITLOCK Attending Unavailable GRETTA WHITLOCK Referring Unavailable SERVICES, [facility] Primary Care Unava ilable Bradley Saucedo Primary Care Provider [phone] GRETTA WHITLOCK Attending Unavailable SERVICES, [facility] Primary Care Unava ilable GRETTA WHITLOCK Attending Unavailable MARIANA GUTIÉRREZ Referring Unavailable SERVICES, [facility] Primary Care Unava ilable Patander Mariana JORDAN Attending Provider Mariana Gutiérrez Attending Unavailable Mariana Gutiérrez Admitting Unavailable BEBETO ROMANO Attending Unavailable ALBER HYDE Referring Unavailable SERVICES, [facility] Primary Care Unava ilable BEBETO ROMANO Attending Unavailable BEBETO ROMANO Referring Unavailable SERVICES, [facility] Primary Care Unava ilable BEBETO ROMANO Attending Unavailable ALBER HYDE Referring Unavailable SERVICES, [facility] Primary Care Unava ilable SERVICES, [facility] Care Unava ilable CHRISTIAN, DIVYA Valera Attending Unavailable ALBER HYDE Admitting Unavailable ALBER HYDE Attending Unavailable ALBER HYDE Referring Unavailable DIMITRI, ALBER Valera Attending Unavailable ALBER HYDE Referring Unavailable SERVICES, [facility] Unava ilable CECY, IZZY Langford Referring Unavailable SERVICES, [facility] Unava ilable BEBETO ROMANO Attending Unavailable ALBER HYDE Referring Unavailable SERVICES, [facility] Unava ilable MARIANA GUTIÉRREZ Referring Unavailable SERVICES, [facility] Unava ilable SERVICES, [facility] Unava ilable VANDANA BRAR Attending Unavailable SERVICES, [facility] Unava ilable SERVICES, [facility] Unava ilable EDILSON FERNANDES Attending Unavailable BRARVANDANA N Attending Unavailable BRAR, VANDANA N Referring Unavailable SERVICES, [facility] Unava ilable TYRESE, VANDANA N Attending Unavailable BRAR, VANDANA N Referring Unavailable SERVICES, [facility] Unava ilable VANDANA BRAR N Attending Unavailable BRAR VANDANA N Referring Unavailable SERVICES, [facility] Unava ilable BRARVANDANA N Attending Unavailable BRAR, VANDANA N Referring Unavailable SERVICES, [facility] Unava ilable SERVICES, [facility] Unava ilable JAIRO GARG Attending Unavailable SHERINE RAMIRES Referring Unavailable SERVICES, [facility] Unava ilable SHERINE RAMIRES Referring Unavailable SERVICES, [facility] Unava ilable BEBETO BEARD Attending Unavailable [...] instructed. 09/04/2024 Discontinued (Therapy completed) lactobacillus acidophilus [id number] unt / pectin 10 mg oral capsule [...] Coronary atherosclerosis; Translations: [Atherosclerotic heart disease of [place] coronary artery without angina pectoris] Onset: 12-04-2018 [...] lower limb ischemia ; Translations: [Atherosclerosis of [place] arteries of extremities with gangrene, left leg] [...] 09-04-2024 Episodic Other aftercare (1 source) Other mcfp (current) drug therapy; Translations: [Other long chain beamer (current) drug therapy] Onset: 09-04-2024 Episodic Other [...] 02-13-2025 Albumin [Mass/Vol] 4.2 g/dL Normal 3.2-5.3 [facility] Comment on above: Performed By: #### B MP, CBCA, 23361-9, PINR #### [facility] ([id number]) [address] [place] [address] 34227 BASIC METABOLIC PANELon 01-31 Anion gap [Moles/Vol] 11 mmol/L Normal 5-15 [facility] Comment on above: Performed By: #### B MP, CBCA, 44354-4, PINR #### [facility] ([id number]) [address] [place] [address] 06577 Calcium [Mass/Vol] 9.1 mg/dL Normal 8.5-10.5 [facility] Comment on above: Performed By: #### B MP, CBCA, 88111-1, PINR #### [facility] ([id number]) [address] [place] [address] 95173 Chloride [Moles/Vol] 99 mmol/L Normal 98-109 [facility] Comment on above: Performed By: #### B MP, CBCA, 19604-7, PINR #### [facility] ([id number]) [address] [place] [address] 23993 CO2 [Moles/Vol] 28 mmol/L Normal 22-32 [facility] Comment on above: Performed By: #### B MARTHA HSIEH, 93799-1, PINR #### [facility] ([id number]) [address] [place] [address] 54959 Creatinine [Mass/Vol] 1.30 mg/dL Normal 0.60-1.30 [facility] Comment on above: Result Comment: METH OD TRACEABLE TO IDMS STANDARD Performed By: #### B MARTHA HSIEH, 09711-8, PINR #### [facility] ([id number]) [address] [place] [address] 94672 GFR/1.73 sq M.predicted among non-blacks MDRD (S/P/Bld) [Vol rate/Area] 59 mL/min/{1.73_m2} Low >=60 [facility] Comment on above: Result Comment: Repo rted eGFR is based on the CKD-EPI 2020 equation that does not use a race coefficient. Performed By: #### B GRETCHEN HSIEHA, 67717-0, PINR #### [facility] ([id number]) [address] [place] [address] 21873 Glucose [Mass/Vol] 203 mg/dL High 65-99 [facility] Comment on above: Performed By: #### B МАРИЯ, CBCA, 32222-6, PINR #### [facility] ([id number]) [address] [place] [address] 67735 Potassium [Moles/Vol] 4.6 mmol/L Normal 3.5-5.0 [facility] Comment on above: Performed By: #### B МАРИЯ, CBCA, 74394-3, PINR #### [facility] ([id number]) [address] [place] [address] Sodium [Moles/Vol] 138 mmol/L Normal 134-146 [facility] Comment on above: Performed By: #### B MP, CBCA, 39452-5, PINR #### [facility] ([id number]) [address] [place] [address] 03768 Urea nitrogen [Mass/Vol] 16 mg/dL Normal 5-27 [facility] Comment on above: Performed By: #### B MP, CBCA, 60920-8, PINR #### [facility] ([id number]) [address] [place] [address] 19923 CBC (NO DIFF)on 02-13-2025 Erythrocyte distribution width (RBC) [Ratio] 16.2 % High 11.5-15 [facility] Comment on above: Performed By: #### B МАРИЯ, CBCA, 78207-5, PINR #### [facility] ([id number]) [address] [place] [address] 56602 Hematocrit (Bld) [Volume fraction] 36.1 % Low 39-50 [facility] Comment on above: Performed By: #### B MP, CBCA, 26021-0, PINR #### [facility] ([id number]) [address] [place] [address] 24686 Hemoglobin (Bld) [Mass/Vol] 11.6 g/dL Low 13-17 [facility] Comment on above: Performed By: #### B MP, CBCA, 29002-3, PINR #### [facility] ([id number]) [address] [place] [address] 48918 MCH (RBC) [Entitic mass] 27.0 pg Normal 27-34 [facility] Comment on above: Performed By: #### B MP, CBCA, 41849-7, PINR #### [facility] ([id number]) [address] [place] [address], [place] [address] MCHC (RBC) [Mass/Vol] 32.2 g/dL Normal 32-36 [facility] Comment on above: Performed By: #### B MP, CBCA, 16002-7, PINR #### [facility] ([id number]) [address] [place] [address] 40658 MCV (RBC) [Entitic vol] 84 fL Normal 80-100 [facility] Comment on above: Performed By: #### B MP, CBCA, 42589-3, PINR #### [facility] ([id number]) [address] [place] [address] 85581 Platelet mean volume (Bld) [Entitic vol] 8.0 fL Normal 7-12 [facility] Comment on above: Performed By: #### B MP, CBCA, 60795-4, PINR #### [facility] ([id number]) [address] [place] [address] 22627 Platelets (Bld) [#/Vol] 266 10*3/uL Normal 150-450 [facility] Comment on above: Performed By: #### B MP, CBCA, 77617-4, PINR #### [facility] ([id number]) [address] [place] [address] 27267 RBC COUNT 4.29 X10E12/L Normal 4.1-5.7 [facility] Comment on above: Performed By: #### B MP, CBCA, 12005-5, PINR #### [facility] ([id number]) [address] [place] [address] 03368 WBC (Bld) [#/Vol] 6.3 10*3/uL Normal 4-11 [facility] Comment on above: Performed By: #### B MP, CBCA, 96828-7, PINR #### [facility] ([id number]) [address] [place] [address], [place] [address] MAGNESIUMon 02-13-2025 Magnesium [Mass/Vol] 2.1 mg/dL Normal 1.8-2.6 [facility] Comment on above: Performed By: #### B MARTHA HSIEH, 24496-0, PINR #### [facility] ([id number]) [address] [place] [address] 43230 MICROALBUMIN / CREATININE UR INE RATIOon 02-13-2025 Albumin DL <= 20 mg/L (U) [Mass/Vol] 9.9 mg/dL High 0.0-1.9 [facility] Comment on above: Performed By: #### B MARTHA HSIEH, 24926-4, PINR #### [facility] ([id number]) [address] [place] [address] 80376 MALB/CREAT RATIO 180.6 mg/g High 0.0-30.0 [facility] Comment on above: Performed By: #### B MARTHA HSIEH, 54308-9, PINR #### [facility] ([id number]) [address] [place] [address] 89860 URINE CREATININE,RDM 54.83 mg/dL Normal [facility] Comment on above: Performed By: #### B MARTHA HSIEH, 29254-3, PINR #### [facility] ([id number]) [address] [place] [address] 77090 PARATHYROID HORMOME, INTACTo n 02-13-2025 PTH INTACT 75 pg/mL Normal 12-88 [facility] Comment on above: Performed By: #### B MARTHA HSIEH, 17104-1, PINR #### [facility] ([id number]) [address] [place] [address] 21352 PHOSPHORUSon 02-13-2025 Phosphate [Mass/Vol] 3.5 mg/dL Normal 2.4-4.9 [facility] Comment on above: Performed By: #### B MP, CBCA, 80336-9, PINR #### [facility] ([id number]) [address] [place] [address] 98817 URIC ACIDon 02-13-2025 Urate [Mass/Vol] 6.2 mg/dL Normal 2.6-7.2 [facility] Comment on above: Performed By: #### B MP, CBCA, 99492-2, PINR #### [facility] ([id number]) [address] [place] [address], [place] [address] URINALYSISon 02-13-2025 Bilirubin Ql (U) Negative Normal Negative [facility] Comment on above: Performed By: #### B MP, CBCA, 03617-5, PINR #### [facility] ([id number]) [address] [place] [address] [place] [address] BLOOD/HGB Negative Normal Negative [facility] Comment on above: Performed By: #### B MP, CBCA, 67517-1, PINR #### [facility] ([id number]) [address] [place] [address], [place] [address] Color (U) Yellow Normal Yellow [facility] Comment on above: Performed By: #### B MP, CBCA, 33690-4, PINR #### [facility] ([id number]) [address] [place] [address], [place] [address] Glucose Ql (U) >1000 mg/dL Abnormal Negative [facility] Comment on above: Performed By: #### B MP, CBCA, 73496-3, PINR #### [facility] ([id number]) [address] [place] [address], [place] [address] Ketones Ql (U) Negative Normal Negative [facility] Comment on above: Performed By: #### B MP, CBCA, 61729-7, PINR #### [facility] ([id number]) [address] [place] [address] 48064 Leukocyte esterase Test strip Ql (U) Small Abnormal Negative [facility] Comment on above: Result Comment: High Concentrations of Glucose May Decrease the Reactivity of the Dipstick Leukocyte Test Pad. Performed By: #### B МАРИЯ, CBCA, 98703-6, PINR #### [facility] ([id number]) [address] [place] [address] [place] [address] MUCOUS Present Abnormal None [facility] Comment on above: Performed By: #### B MP, CBCA, 94157-3, PINR #### [facility] ([id number]) [address] [place] [address] 76832 Nitrite Ql (U) Positive Abnormal Negative [facility] Comment on above: Performed By: #### B МАРИЯ, CBCA, 65832-8, PINR #### [facility] ([id number]) [address] [place] [address] 81223 PH,URINE 5.5 Normal 5.0-8.5 [facility] Comment on above: Performed By: #### B МАРИЯ, CBCA, 21269-6, PINR #### [facility] ([id number]) [address] [place] [address] 79224 Protein Ql (U) Trace Abnormal Negative [facility] Comment on above: Performed By: #### B MP, CBCA, 06088-4, PINR #### [facility] ([id number]) [address] [place] [address] [place] [address] R.B.CELLS 3 Normal 0-5 [facility] Comment on above: Performed By: #### B МАРИЯ, CBCA, 76424-2, PINR #### [facility] ([id number]) [address] [place] [address] 29787 Specific gravity (U) [Rel density] 1.031 Normal 1.003-1.035 [facility] Comment on above: Performed By: #### B MP, CBCA, 57923-0, PINR #### [facility] ([id number]) [address] [place] [address] 53916 TURBIDITY Clear Normal Clear [facility] Comment on above: Performed By: #### B MP, CBCA, 14973-2, PINR #### [facility] ([id number]) [address] [place] [address] 09821 UROBILINOGEN <1.1 eu/dL Normal <1.1 eu/dL [facility] Comment on above: Performed By: #### B MP, CBCA, 35956-9, PINR #### [facility] ([id number]) [address] [place] [address] 70131 W.B.CELLS 9 High 0-5 [facility] Comment on above: Performed By: #### B MP, CBCA, 68703-4, PINR #### [facility] ([id number]) [address] [place] [address] 31301 VITAMIN D 25 HYDROXYon 02-13 VITAMIN D 25 HYD TOT 36.6 ng/mL Normal 30.0-100.0 [facility] Comment on above: Order Comment: Vitam in D status 25 [place] Vitamin D Deficiency <20 ng/mLInsufficiency 20-29 ng/mLSufficiency 30-100 ng/mLToxicity >100 ng/mLNOTE: A pediatric reference range has not been established by the muffle worker of this kit. The [place] [employer] recommends a Vitamin D level of = or >20ng/mL in infants and children. Performed By: #### B MP, CBCA, 51219-3, PINR #### [facility] ([id number]) [address] [place] [address] 39136 US RETROPERITONEAL COMPLETEo n 01-06-2025 US RETROPERITONEAL [...] Luevano MD on 01/06/2025 2:08 PM Normal [facility] BEDSIDE GLUCOSEon 11-14-2024 Glucose [Mass/Vol] 249 mg/dL High 65-99 [facility] Comment on above: Performed By: #### B MP, CBCA, 10901-1, PINR #### [facility] ([id number]) [address] [place] [address] 12350 CBC WITH AUTO DIFFERENTIALon 11-14-2024 BASOPHILS ABSOLUTE COUNT (10*3/UL) BY AUTOMATED COUNT 0.1 10*3/uL Normal 0.0-0.2 [facility] Comment on above: Performed By: #### B MP, CBCA, 79209-5, PINR #### [facility] ([id number]) [address] [place] [address] 88331 BASOPHILS RELATIVE PERCENT BY AUTOMATED COUNT 0.6 % Normal [facility] Comment on above: Performed By: #### B MP, CBCA, 18735-1, PINR #### [facility] ([id number]) [address] [place] [address] 90486 CELLAVISION DIFFERENTIAL TYPE AUTOMATED DIFFERENTIAL Normal [facility] Comment on above: Performed By: #### B MP, CBCA, 64896-3, PINR #### [facility] ([id number]) [address] [place] [address] 79897 Eosinophils (Bld) [#/Vol] 0.0 10*3/uL Normal 0.0-0.4 [facility] Comment on above: Performed By: #### B MP, CBCA, 46302-2, PINR #### [facility] ([id number]) [address] [place] [address] 83304 EOSINOPHILS RELATIVE PERCENT BY AUTOMATED COUNT 0.2 % Normal [facility] Comment on above: Performed By: #### B MP, CBCA, 60720-6, PINR #### [facility] ([id number]) [address] [place] [address] 03822 Erythrocyte distribution width (RBC) [Ratio] 16.3 % High 11.5-15 [facility] Comment on above: Performed By: #### B MP, CBCA, 62294-0, PINR #### [facility] ([id number]) [address] [place] [address] 81073 Hematocrit (Bld) [Volume fraction] 34.6 % Low 39-50 [facility] Comment on above: Performed By: #### B MP, CBCA, 58766-4, PINR #### [facility] ([id number]) [address] [place] [address] 99993 Hemoglobin (Bld) [Mass/Vol] 11.4 g/dL Low 13-17 [facility] Comment on above: Performed By: #### B MP, CBCA, 01809-3, PINR #### [facility] ([id number]) [address] [place] [address] 51949 LYMPHOCYTES ABSOLUTE COUNT (10*3/UL) BY AUTOMATED COUNT 1.5 10*3/uL Normal 1.0-3.5 [facility] Comment on above: Performed By: #### B MP, CBCA, 03772-2, PINR #### [facility] ([id number]) [address] [place] [address] 01748 LYMPHOCYTES RELATIVE PERCENT BY AUTOMATED COUNT 16.3 % Normal [facility] Comment on above: Performed By: #### B MP, CBCA, 22952-6, PINR #### [facility] ([id number]) [address] [place] [address] 24641 MCH (RBC) [Entitic mass] 29.6 pg Normal 27-34 [facility] Comment on above: Performed By: #### B MP, CBCA, 50388-2, PINR #### [facility] ([id number]) [address] [place] [address] 32492 MCHC (RBC) [Mass/Vol] 32.9 g/dL Normal 32-36 [facility] Comment on above: Performed By: #### B MP, CBCA, 22497-6, PINR #### [facility] ([id number]) [address] [place] [address] 66846 MCV (RBC) [Entitic vol] 90 fL Normal 80-100 [facility] Comment on above: Performed By: #### B MP, CBCA, 92405-3, PINR #### [facility] ([id number]) [address] [place] [address] 22658 MONOCYTES ABSOLUTE COUNT (10*3/UL) BY AUTOMATED COUNT 1.1 10*3/uL High 0.0-0.9 [facility] Comment on above: Performed By: #### B MP, CBCA, 34067-8, PINR #### [facility] ([id number]) [address] [place] [address] 96779 MONOCYTES RELATIVE PERCENT BY AUTOMATED COUNT 12.7 % Normal [facility] Comment on above: Performed By: #### B MP, CBCA, 84621-7, PINR #### [facility] ([id number]) [address] [place] [address] 28467 NEUTROPHILS ABSOLUTE COUNT BY AUTOMATED COUNT 6.4 10*3/uL Normal 1.5-6.6 [facility] Comment on above: Performed By: #### B MP, CBCA, 81714-1, PINR #### [facility] ([id number]) [address] [place] [address] 79192 NEUTROPHILS RELATIVE PERCENT BY AUTOMATED COUNT 70.2 % Normal [facility] Comment on above: Performed By: #### B MP, CBCA, 38680-5, PINR #### [facility] ([id number]) [address] [place] [address] 97076 Platelet mean volume (Bld) [Entitic vol] 7.6 fL Normal 7-12 [facility] Comment on above: Performed By: #### B MP, CBCA, 46303-4, PINR #### [facility] ([id number]) [address] [place] [address] 98048 Platelets (Bld) [#/Vol] 305 10*3/uL Normal 150-450 [facility] Comment on above: Performed By: #### B MP, CBCA, 52827-4, PINR #### [facility] ([id number]) [address] [place] [address] 49434 RBC COUNT 3.85 X10E12/L Low 4.1-5.7 [facility] Comment on above: Performed By: #### B MP, CBCA, 59939-5, PINR #### [facility] ([id number]) [address] [place] [address] 31745 WBC (Bld) [#/Vol] 9.0 10*3/uL Normal 4-11 [facility] Comment on above: Performed By: #### B MP, CBCA, 62213-9, PINR #### [facility] ([id number]) [address] [place] [address] 53769 COMPREHENSIVE METABOLIC PANE [facility] 11-14-2024 Albumin [Mass/Vol] 3.9 g/dL Normal 3.2-5.3 [facility] Comment on above: Performed By: #### B MP, CBCA, 93163-1, PINR #### [facility] ([id number]) [address] [place] [address] 03350 ALP [Catalytic activity/Vol] 43 U/L Normal 39-130 [facility] Comment on above: Performed By: #### B MP, CBCA, 50110-8, PINR #### [facility] ([id number]) [address] [place] [address] 31825 ALT [Catalytic activity/Vol] 11 U/L Normal <=40 [facility] Comment on above: Performed By: #### B MP, CBCA, 18009-2, PINR #### [facility] ([id number]) [address] [place] [address] 78481 Anion gap [Moles/Vol] 10 mmol/L Normal 5-15 [facility] Comment on above: Performed By: #### B MP, CBCA, 33920-8, PINR #### [facility] ([id number]) [address] [place] [address] 21928 AST [Catalytic activity/Vol] 19 U/L Normal <=41 [facility] Comment on above: Performed By: #### B MP, CBCA, 43245-4, PINR #### [facility] ([id number]) [address] [place] [address] 88625 Bilirubin [Mass/Vol] 0.5 mg/dL Normal 0.3-1.2 [facility] Comment on above: Performed By: #### B МАРИЯ, CBCA, 75753-8, PINR #### [facility] ([id number]) [address] [place] [address] 39547 Calcium [Mass/Vol] 8.8 mg/dL Normal 8.5-10.5 [facility] Comment on above: Performed By: #### B МАРИЯ, CBCA, 54014-5, PINR #### [facility] ([id number]) [address] [place] [address] 81396 Chloride [Moles/Vol] 100 mmol/L Normal 98-109 [facility] Comment on above: Performed By: #### B МАРИЯ, CBCA, 48911-5, PINR #### [facility] ([id number]) [address] [place] [address] 23219 CO2 [Moles/Vol] 24 mmol/L Normal 22-32 [facility] Comment on above: Performed By: #### B МАРИЯ, CBCA, 69165-1, PINR #### [facility] ([id number]) [address] [place] [address] 95336 Creatinine [Mass/Vol] 1.49 mg/dL High 0.70-1.20 [facility] Comment on above: Result Comment: METH OD TRACEABLE TO IDMS STANDARD Performed By: #### B МАРИЯ, CBCA, 50297-2, PINR #### [facility] ([id number]) [address] [place] [address] 55915 GFR/1.73 sq M.predicted among non-blacks MDRD (S/P/Bld) [Vol rate/Area] 50 mL/min/{1.73_m2} Low >=60 [facility] Comment on above: Result Comment: eGFR not reported due to non-numeric value for Creatinine. Reported eGFR is based on the CKD-EPI 2021 equation that does not use a race coefficient. Performed By: #### B МАРИЯ, [place], 02734-7, PINR #### [facility] ([id number]) [address] [place] [address] 67760 Glucose [Mass/Vol] 246 mg/dL High 65-99 [facility] Comment on above: Performed By: #### B МАРИЯ, CBCA, 71300-2, PINR #### [facility] ([id number]) [address] [place] [address] 32771 Potassium [Moles/Vol] 4.4 mmol/L Normal 3.5-5.0 [facility] Comment on above: Performed By: #### B МАРИЯ, CBCA, 76492-9, PINR #### [facility] ([id number]) [address] [place] [address] 01338 Protein [Mass/Vol] 7.2 g/dL Normal 6.0-8.0 [facility] Comment on above: Performed By: #### B МАРИЯ, CBCA, 19569-0, PINR #### [facility] ([id number]) [address] [place] [address] 06912 Sodium [Moles/Vol] 134 mmol/L Normal 134-146 [facility] Comment on above: Performed By: #### B МАРИЯ, CBCA, 87658-1, PINR #### [facility] ([id number]) [address] [place] [address] 04414 Urea nitrogen [Mass/Vol] 23 mg/dL Normal 5-27 [facility] Comment on above: Performed By: #### B МАРИЯ, CBCA, 51105-4, PINR #### [facility] ([id number]) [address] [place] [address] 55556 D-DIMERon 11-14-2024 D DIMER <^150 Normal 1-255 [facility] Comment on above: Result Comment: Resu lts <255 ng/mL DDU: The presensence of a VTE can safely be excluded with a negative D-Dimer result and Wells score. A negative result doesn't exclude the possibility of DIC. The test should be repeated along with other diagnostic tests if the patient's symptoms persist or worsen. Performed By: #### B MP, CBCA, 09081-2, PINR #### [facility] ([id number]) [address] [place] [address] [id number] LIPASEon 11-14-2024 Lipase [Catalytic activity/Vol] 36 U/L Normal 17-40 [facility] Comment on above: Performed By: #### B MP, CBCA, 66055-1, PINR #### [facility] ([id number]) [address] [place] [address] 05697 MAGNESIUMon 11-14-2024 Magnesium [Mass/Vol] 2.1 mg/dL Normal 1.8-2.6 [facility] Comment on above: Performed By: #### B MP, CBCA, 57143-7, PINR #### [facility] ([id number]) [address] [place] [address] 32815 TROP I, HIGH SENSITIVITY 1 H OURon 11-14-2024 TROPONIN I, HIGH SENSITIVITY 8 ng/L Normal <21 [facility] Comment on above: Performed By: #### B MP, CBCA, 60136-5, PINR #### [facility] ([id number]) [address] [place] [address] 55610 TROPONIN I, HIGH SENSITIVITY 0 HOURon 11-14-2024 TROPONIN I, HIGH SENSITIVITY 7 ng/L Normal <21 [facility] Comment on above: Performed By: #### B MP, CBCA, 94223-7, PINR #### [facility] ([id number]) [address] [place] [address], [place] [address] XR CHEST 1 VWon 11-14-2024 XR CHEST [...] Angulo MD on 11/14/2024 1:19 AM Normal [facility] XR FOOT LT MIN 3 VWSon 11-14 [...] Jaramillo MD on 11/14/2024 1:31 AM Normal [facility] Alex 11-12-2024 L --- Specimen: [id number] Received: 11/13/24 Status: AUSTIN Gordon Num: [id number] Spec Type: Surgical Subm Dr: Mariana Gutiérrez,NIKKI, MS Tissues: A DIGIT AMPUTATION (LEFT FOREFOOT) Procedures: HE/5, Gross/Micro L4, Decalcification Age/ Patient Sex Location Account Attending Physician Tomas Frausto/M LABELL [id number] Mariana Gutiérrez DPM, MS SPEC NUM: [id number] RECD: 11/13/24 STATUS: AUSTIN ANNAMARIA NUM: [id number] EL: 11/12/24-[address] [facility] [address]: Mariana Gutiérrez DPM, MS ENTERED: 11/13/24 [facility] DR: Christy,Lab SPEC TYPE: Surgical DEPT: YANIV HESTER ENTERED BY: [id number] RECV BY: [id number] ORDERED: HE/5, Gross/Micro L4, Decalcification ORDERED: HE/5, [...] end, consistent with a previous resection. Specimen: [id number] Received: 11/13/24 Status: AUSTIN Gordon Num: [id number] Spec Type: Surgical Subm Dr: Mariana Gutiérrez,DPEdvin, MS Tissues: A DIGIT AMPUTATION (LEFT FOREFOOT) Procedures: MALLY/Shayan, Gross/Micro L4, Decalcification Patient: Tomas Frausto [id number] (Continued) Specimen: [id number] Received: 11/13/24 (Continued) Gross Description (Continued) Signed (signature on file) Howie Up MD 11/19/241320 Specimen: [id number] Received: 11/13/24 Status: AUSTIN Gordon Num: [id number] Spec Type: Surgical Subm Dr: Mariana Gutiérrez,NIKKI, MS Tissues: A DIGIT AMPUTATION (LEFT FOREFOOT) Procedures: HE/5, Gross/Micro L4, Decalcification Patient: Tomas Frausto [id number] (Continued) Specimen: [id number] Received: 11/13/24 (Continued) Gross Description (Continued) Cassettes: A1 Tangential sections of proximal skin margin A2 Crusted wound A3 Left third digit crusted area with underlying metatarsal bone, decalcified A4 Discolored soft tissue and underlying left, second proximal phalangeal bone, decalcified A5 Discolored soft tissue and underlying left, first metatarsal bone, decalcified (5, ss, IM51-400 A)J Microscopic Description Microscopic examination is performed CPT Codes 82620 14949 Specimen: [id number] Received: 11/13/24 Status: AUSTIN Gordon Num: [id number] Spec Type: Surgical Subm Dr: Mariana Gutiérrez DPM, MS Tissues: A DIGIT AMPUTATION (LEFT FOREFOOT) Procedures: HE/5, Gross/Micro L4, Decalcification Patie (more content not included)... Normal [facility] No Panel Informationon 10-02 EDWARD [...] Consent was given by the patient. [facility] Glucose (Bld) [Mass/Vol]on 0 09-27-2024 Urea nitrogen [Mass/Vol] 19 mg/dL Normal 6-27 [facility] XR KNEE RT 3 VWSon 5 [...] Alfonso MD on 09/13/2024 12:54 PM Normal [facility] Device Interrogationon 09-04 [facility] Radiology Study observation (narrative) [facility] POCT EKGon 09-04-2024 [facility] CBC AND AUTO DIFFon 07-22-19 ABSOLUTE BASOPHIL 0.0 X10E9/L Normal 0.0-0.2 [facility] Comment on above: Performed By: #### B МАРИЯ CBCA, 61403-8, PINR #### [facility] ([id number]) [address] [place] [address] 64292 ABSOLUTE NEUTROPHIL 3.8 X10E9/L Normal 1.5-6.6 [facility] Comment on above: Performed By: #### B MP, CBCA, 44086-0, PINR #### [facility] ([id number]) [address] [place] [address] 91826 Basophils/100 WBC (Bld) 0.8 % Normal [facility] Comment on above: Performed By: #### B MP, CBCA, 44927-2, PINR #### [facility] ([id number]) [address] [place] [address] 54431 Eosinophils (Bld) [#/Vol] 0.0 10*3/uL Normal 0.0-0.4 [facility] Comment on above: Performed By: #### B MP, CBCA, 71239-4, PINR #### [facility] ([id number]) [address] [place] [address] 49727 Eosinophils/100 WBC (Bld) 0.7 % Normal [facility] Comment on above: Performed By: #### B MP, CBCA, 30437-9, PINR #### [facility] ([id number]) [address] [place] [address] 43955 Erythrocyte distribution width (RBC) [Ratio] 14.6 % Normal 11.5-15.0 [facility] Comment on above: Performed By: #### B MP, CBCA, 10270-6, PINR #### [facility] ([id number]) [address] [place] [address] 30174 Hematocrit (Bld) [Volume fraction] 42.0 % Normal 39-49 [facility] Comment on above: Performed By: #### B MP, CBCA, 33595-9, PINR #### [facility] ([id number]) [address] [place] [address] 80878 Hemoglobin (Bld) [Mass/Vol] 13.9 g/dL Normal 13.0-17.0 [facility] Comment on above: Performed By: #### B MP, CBCA, 47286-4, PINR #### [facility] ([id number]) [address] [place] [address] 11752 Lymphocytes (Bld) [#/Vol] 1.5 10*3/uL Normal 1.0-3.5 [facility] Comment on above: Performed By: #### B MP, CBCA, 96330-5, PINR #### [facility] ([id number]) [address] [place] [address] 04871 Lymphocytes/100 WBC (Bld) 24.7 % Normal [facility] Comment on above: Performed By: #### B MP, CBCA, 90684-8, PINR #### [facility] ([id number]) [address] [place] [address] 57419 MCH (RBC) [Entitic mass] 30.7 pg Normal 27-34 [facility] Comment on above: Performed By: #### B MP, CBCA, 71612-0, PINR #### [facility] ([id number]) [address] [place] [address] 75401 MCHC (RBC) [Mass/Vol] 33.0 g/dL Normal 32-36 [facility] Comment on above: Performed By: #### B MP, CBCA, 47196-4, PINR #### [facility] ([id number]) [address] [place] [address] 08322 MCV (RBC) [Entitic vol] 93 fL Normal 80-100 [facility] Comment on above: Performed By: #### B MP, CBCA, 25903-3, PINR #### [facility] ([id number]) [address] [place] [address] 09219 Monocytes (Bld) [#/Vol] 0.6 10*3/uL Normal 0-0.9 [facility] Comment on above: Performed By: #### B MP, CBCA, 66446-1, PINR #### [facility] ([id number]) [address] [place] [address] 25078 Monocytes/100 WBC (Bld) 9.7 % Normal [facility] Comment on above: Performed By: #### B MP, CBCA, 29074-8, PINR #### [facility] ([id number]) [address] [place] [address] 63421 Neutrophils/100 WBC (Bld) 64.1 % Normal [facility] Comment on above: Performed By: #### B MP, CBCA, 13693-8, PINR #### [facility] ([id number]) [address] [place] [address] 02201 Platelet mean volume (Bld) [Entitic vol] 8.2 fL Normal 7-12 [facility] Comment on above: Performed By: #### B MP, CBCA, 03968-9, PINR #### [facility] ([id number]) [address] [place] [address] 70414 Platelets (Bld) [#/Vol] 315 10*3/uL Normal 150-450 [facility] Comment on above: Performed By: #### B MP, CBCA, 79703-9, PINR #### [facility] ([id number]) [address] [place] [address] 25520 RBC COUNT 4.52 X10E12/L Normal 4.10-5.70 [facility] Comment on above: Performed By: #### B MP, CBCA, 55404-5, PINR #### [facility] ([id number]) [address] [place] [address] 92015 WBC (Bld) [#/Vol] 5.9 10*3/uL Normal 4.0-11.0 [facility] Comment on above: Performed By: #### B MP, CBCA, 06419-7, PINR #### [facility] ([id number]) [address] [place] [address] 27020 CRP [Mass/Vol]on 07-22-2024 C REACTIVE PROTEIN 1.9 mg/dL High 0.000-0.744 [facility] Comment on above: Performed By: #### B МАРИЯ, CBCA, 24708-7, PINR #### [facility] ([id number]) [address] [place] [address] 57688 ESR Photometric method (Bld) [Velocity]on 07-22-2024 ESR, ERYTHROCYTE SEDIMENTATION RATE 47 mm/h High 0-20 [facility] Comment on above: Performed By: #### B МАРИЯ, CBCA, 15020-3, PINR #### [facility] ([id number]) [address] [place] [address] 62968 HGB A1C (GLYCO-HGB)on 2024 Glucose [Mass/Vol] 203 mg/dL Normal [facility] Comment on above: Performed By: #### B МАРИЯ, CBCA, 61067-5, PINR #### [facility] ([id number]) [address] [place] [address] 89331 HbA1c (Bld) [Mass fraction] 8.7 % High 4.4-5.6 [facility] Comment on above: Result Comment: NOTE ADA Guidelines Result HgbA1c Normal : less than 5.7 % Prediabetes : 5.7 % to 6.4 % Diabetes : > 6.4 % Use with caution in patients with abnormal hemoglobin variants as the half-life of red blood cells and in vivo glycation rates are affected. Performed By: #### B MP, CBCA, 93661-7, PINR #### [facility] ([id number]) [address] [place] [address] 26041 COMPREHENSIVE METABOLIC PANE Alex 05-09-2024 Albumin [Mass/Vol] 4.2 g/dL Normal 3.2-5.3 [facility] Comment on above: Performed By: #### C МАРИЯ, TSHR #### [facility] ([id number]) [address] [place] [address] #### 21147-3 #### [facility] ([id number]) [address], [address] [place] [address] ALP [Catalytic activity/Vol] 46 U/L Normal 39-130 [facility] Comment on above: Performed By: #### C МАРИЯ, TSHR #### [facility] ([id number]) [address] [place] [address] 00916 #### 89489-5 #### [facility] ([id number]) [address], [address] [place] [address] ALT [Catalytic activity/Vol] 16 U/L Normal 0-40 [facility] Comment on above: Performed By: #### C МАРИЯ TSHR #### [facility] ([id number]) [address] [place] [address] 35836 #### 33269-6 #### [facility] ([id number]) [address], [address] [place] [address] Anion gap [Moles/Vol] 10 mmol/L Normal 5-15 [facility] Comment on above: Performed By: #### Jerry HSIEH TSHR #### [facility] ([id number]) [address] [place] [address] 41052 #### 47206-0 #### [facility] ([id number]) [address], [address] [place] [address] AST [Catalytic activity/Vol] 16 U/L Normal 0-41 [facility] Comment on above: Performed By: #### Jerry HSIEH TSHR #### [facility] ([id number]) [address] [place] [address] 02839 #### 24592-2 #### [facility] ([id number]) [address], [address] [place] [address] Bilirubin [Mass/Vol] 0.5 mg/dL Normal 0.3-1.2 [facility] Comment on above: Performed By: #### Jerry HSIEH, TSHR #### [facility] ([id number]) [address] [place] [address] 56513 #### 24993-3 #### [facility] ([id number]) [address], [address] [place] [address] Calcium [Mass/Vol] 9.3 mg/dL Normal 8.5-10.5 [facility] Comment on above: Performed By: #### Jerry HSIEH TSHR #### [facility] ([id number]) [address] [place] [address] 38526 #### 50236-8 #### [facility] ([id number]) [address], [address] [place] [address] Chloride [Moles/Vol] 99 mmol/L Normal 98-109 [facility] Comment on above: Performed By: #### Jerry HSIEH TSHR #### [facility] ([id number]) [address] [place] [address] 13109 #### 52719-8 #### [facility] ([id number]) [address], [address] [place] [address] CO2 [Moles/Vol] 26 mmol/L Normal 22-32 [facility] Comment on above: Performed By: #### Jerry HSIEH, TSHR #### [facility] ([id number]) [address] [place] [address] 87341 #### 31059-4 #### [facility] ([id number]) [address], [address] [place] [address] Creatinine [Mass/Vol] 1.27 mg/dL High 0.70-1.20 [facility] Comment on above: Result Comment: METH OD TRACEABLE TO IDMS STANDARD Performed By: #### Jerry HSIEH TSHSolitario #### [facility] ([id number]) [address] [place] [address] 56517 #### 26779-6 #### [facility] ([id number]) [address], [address] [place] [address] GFR/1.73 sq M.predicted among non-blacks MDRD (S/P/Bld) [Vol rate/Area] 61 mL/min/{1.73_m2} Normal >59 [facility] Comment on above: Result Comment: Reported eGFR is based on the CKD-EPI 2020 equation that does not use a race coefficient. Performed By: #### NURIA Edwards MP #### [facility] ([id number]) [address] [place] [address] 62582 #### 76772-2 #### [facility] ([id number]) [address], [address] [place] [address] Glucose [Mass/Vol] 177 mg/dL High 65-99 [facility] Comment on above: Performed By: #### Jerry HSIEH TSHR #### [facility] ([id number]) [address] [place] [address] 35545 #### 57195-6 #### [facility] ([id number]) [address], [address] [place] [address] Potassium [Moles/Vol] 4.5 mmol/L Normal 3.5-5.0 [facility] Comment on above: Performed By: #### Jerry HSIEH TSHSolitario #### [facility] ([id number]) [address] [place] [address] 75521 #### 70731-0 #### [facility] ([id number]) [address], [address] [place] [address] Protein [Mass/Vol] 7.6 g/dL Normal 6.0-8.0 [facility] Comment on above: Performed By: #### C МАРИЯ, TSHR #### [facility] ([id number]) [address] [place] [address] 01791 #### 83592-4 #### [facility] ([id number]) [address], [address] [place] [address] Sodium [Moles/Vol] 135 mmol/L Normal 134-146 [facility] Comment on above: Performed By: #### C МАРИЯ, TSHR #### [facility] ([id number]) [address] [place] [address] 46700 #### 70425-8 #### [facility] ([id number]) [address], [address] [place] [address] Urea nitrogen [Mass/Vol] 24 mg/dL Normal 5-27 [facility] Comment on above: Performed By: #### C МАРИЯ, TSHR #### [facility] ([id number]) [address] [place] [address] 46425 #### 60608-3 #### [facility] ([id number]) [address], [address] [place] [address] Lipid 1996 panelon 4 Cholesterol [Mass/Vol] 137 mg/dL Low 150-200 [facility] Comment on above: Performed By: #### B MP, CBCA, 01556-9, PINR #### [facility] ([id number]) [address] [place] [address] 04105 Cholesterol in HDL [Mass/Vol] 32 mg/dL Low >39 [facility] Comment on above: Result Comment: HDL <40 mg/dL - High Risk HDL > or = 40mg/dL- Desirable HDL >60 mg/dL - Negative Risk Performed By: #### B МАРИЯ, CBCA, 27904-6, PINR #### [facility] ([id number]) [address] [place] [address] 71715 Cholesterol in LDL [Mass/Vol] 50 mg/dL Normal <130 [facility] Comment on above: Result Comment: LDL <100 mg/dL - Desirable LDL >160 mg/dL - High Risk Performed By: #### B МАРИЯ, CBCA, 95721-8, PINR #### [facility] ([id number]) [address] [place] [address] 23773 Cholesterol in VLDL [Mass/Vol] 55 mg/dL High 0-30 [facility] Comment on above: Performed By: #### B МАРИЯ, CBCA, 51522-4, PINR #### [facility] ([id number]) [address] [place] [address] 42992 CHOLESTEROL:HDL 4.3 Normal 1.0-5.0 [facility] Comment on above: Performed By: #### B МАРИЯ, CBCA, 70361-1, PINR #### [facility] ([id number]) [address] [place] [address] 97279 Triglyceride [Mass/Vol] 275 mg/dL High 27-150 [facility] Comment on above: Performed By: #### B МАРИЯ, CBCA, 33563-1, PINR #### [facility] ([id number]) [address] [place] [address] 99147 TSH WITH REFLEXon 05-09-2024 TSH 4.67 uIU/mL Normal 0.49-4.67 [facility] Comment on above: Performed By: #### C MP, TSHR #### [facility] ([id number]) [address] [place] [address] 64191 #### 04742-4 #### [facility] ([id number]) [address], [address] [place] [address] BASIC METABOLIC PANLon 04-16 Anion gap [Moles/Vol] 10 mmol/L Normal 5-15 [facility] Comment on above: Performed By: #### B MP, CBCA, 41517-9, PINR #### [facility] ([id number]) [address] [place] [address] 21899 Calcium [Mass/Vol] 9.3 mg/dL Normal 8.5-10.5 [facility] Comment on above: Performed By: #### B MP, CBCA, 20623-5, PINR #### [facility] ([id number]) [address] [place] [address] 49824 Chloride [Moles/Vol] 101 mmol/L Normal 98-109 [facility] Comment on above: Performed By: #### B MP, CBCA, 82226-3, PINR #### [facility] ([id number]) [address] [place] [address] 94364 CO2 [Moles/Vol] 27 mmol/L Normal 22-32 [facility] Comment on above: Performed By: #### B MP, CBCA, 58000-2, PINR #### [facility] ([id number]) [address] [place] [address] 86464 Creatinine [Mass/Vol] 1.19 mg/dL Normal 0.70-1.20 [facility] Comment on above: Result Comment: METH OD TRACEABLE TO IDMS STANDARD Performed By: #### B MP, CBCA, 22270-2, PINR #### [facility] ([id number]) [address] [place] [address] 08462 GFR/1.73 sq M.predicted among non-blacks MDRD (S/P/Bld) [Vol rate/Area] 66 mL/min/{1.73_m2} Normal >59 [facility] Comment on above: Result Comment: Reported eGFR is based on the CKD-EPI 1 equation that does not use a race coefficient. Performed By: #### B МАРИЯ, CBCA, 84351-3, PINR #### [facility] ([id number]) [address] [place] [address] 24014 Glucose [Mass/Vol] 165 mg/dL High 65-99 [facility] Comment on above: Performed By: #### B МАРИЯ, CBCA, 61431-7, PINR #### [facility] ([id number]) [address] [place] [address] 35728 Potassium [Moles/Vol] 4.2 mmol/L Normal 3.5-5.0 [facility] Comment on above: Performed By: #### B МАРИЯ, CBCA, 18639-9, PINR #### [facility] ([id number]) [address] [place] [address] 38894 Sodium [Moles/Vol] 138 mmol/L Normal 134-146 [facility] Comment on above: Performed By: #### B МАРИЯ, CBCA, 08157-0, PINR #### [facility] ([id number]) [address] [place] [address] 50272 Urea nitrogen [Mass/Vol] 17 mg/dL Normal 5-27 [facility] Comment on above: Performed By: #### B МАРИЯ, CBCA, 22369-2, PINR #### [facility] ([id number]) [address] [place] [address] 86757 CBC AND AUTO DIFFon 10-15-20 24 ABSOLUTE BASOPHIL 0.0 X10E9/L Normal 0.0-0.2 [facility] Comment on above: Performed By: #### B MP, CBCA, 34747-2, PINR #### [facility] ([id number]) [address] [place] [address] 80687 ABSOLUTE NEUTROPHIL 4.0 X10E9/L Normal 1.5-6.6 [facility] Comment on above: Performed By: #### B MP, CBCA, 11592-7, PINR #### [facility] ([id number]) [address] [place] [address] 59218 Basophils/100 WBC (Bld) 0.5 % Normal [facility] Comment on above: Performed By: #### B MP, CBCA, 81922-1, PINR #### [facility] ([id number]) [address] [place] [address] 64205 Eosinophils (Bld) [#/Vol] 0.0 10*3/uL Normal 0.0-0.4 [facility] Comment on above: Performed By: #### B MP, CBCA, 87188-6, PINR #### [facility] ([id number]) [address] [place] [address] 16004 Eosinophils/100 WBC (Bld) 0.4 % Normal [facility] Comment on above: Performed By: #### B MP, CBCA, 23726-5, PINR #### [facility] ([id number]) [address] [place] [address] 13713 Erythrocyte distribution width (RBC) [Ratio] 15.7 % High 11.5-15.0 [facility] Comment on above: Performed By: #### B MP, CBCA, 18853-3, PINR #### [facility] ([id number]) [address] [place] [address] 86522 Hematocrit (Bld) [Volume fraction] 39.9 % Normal 39-49 [facility] Comment on above: Performed By: #### B MP, CBCA, 63386-9, PINR #### [facility] ([id number]) [address] [place] [address] 31477 Hemoglobin (Bld) [Mass/Vol] 13.1 g/dL Normal 13.0-17.0 [facility] Comment on above: Performed By: #### B MP, CBCA, 18074-2, PINR #### [facility] ([id number]) [address] [place] [address] 05885 Lymphocytes (Bld) [#/Vol] 1.1 10*3/uL Normal 1.0-3.5 [facility] Comment on above: Performed By: #### B MP, CBCA, 16646-8, PINR #### [facility] ([id number]) [address] [place] [address] 74775 Lymphocytes/100 WBC (Bld) 18.2 % Normal [facility] Comment on above: Performed By: #### B MP, CBCA, 65407-6, PINR #### [facility] ([id number]) [address] [place] [address] 99666 MCH (RBC) [Entitic mass] 30.6 pg Normal 27-34 [facility] Comment on above: Performed By: #### B МАРИЯ, CBCA, 46703-1, PINR #### [facility] ([id number]) [address] [place] [address] 18525 MCHC (RBC) [Mass/Vol] 32.8 g/dL Normal 32-36 [facility] Comment on above: Performed By: #### B MP, CBCA, 94886-3, PINR #### [facility] ([id number]) [address] [place] [address] 49635 MCV (RBC) [Entitic vol] 93 fL Normal 80-100 [facility] Comment on above: Performed By: #### B MP, CBCA, 13678-7, PINR #### [facility] ([id number]) [address] [place] [address] 77571 Monocytes (Bld) [#/Vol] 0.8 10*3/uL Normal 0-0.9 [facility] Comment on above: Performed By: #### B MP, CBCA, 39483-8, PINR #### [facility] ([id number]) [address] [place] [address] 97790 Monocytes/100 WBC (Bld) 13.5 % Normal [facility] Comment on above: Performed By: #### B MP, CBCA, 87463-1, PINR #### [facility] ([id number]) [address] [place] [address] 30920 Neutrophils/100 WBC (Bld) 67.4 % Normal [facility] Comment on above: Performed By: #### B MP, CBCA, 38773-9, PINR #### [facility] ([id number]) [address] [place] [address] 98858 Platelet mean volume (Bld) [Entitic vol] 7.4 fL Normal 7-12 [facility] Comment on above: Performed By: #### B MP, CBCA, 67701-0, PINR #### [facility] ([id number]) [address] [place] [address] 98690 Platelets (Bld) [#/Vol] 284 10*3/uL Normal 150-450 [facility] Comment on above: Performed By: #### B MP, CBCA, 51936-4, PINR #### [facility] ([id number]) [address] [place] [address] 10606 RBC COUNT 4.27 X10E12/L Normal 4.10-5.70 [facility] Comment on above: Performed By: #### B MP, CBCA, 77077-1, PINR #### [facility] ([id number]) [address] [place] [address] WBC (Bld) [#/Vol] 5.9 10*3/uL Normal 4.0-11.0 [facility] Comment on above: Performed By: #### B MP, CBCA, 20646-1, PINR #### [facility] ([id number]) [address] [place] [address] BRAIN WO CONTon CT BRAIN WO [...] Avila DO on 04/16/2024 2:16 PM Normal [facility] CT CERVICAL SPINE WO CONTon 04-16-2024 [...] Avila DO on 04/16/2024 2:24 PM Normal [facility] CT FACIAL BONES WO CONTon CT [...] Morris Lau on 04/16/2024 2:30 PM Normal [facility] PROTIME AND INRon 04-16-2024 INR Coag (PPP) [Relative time] 2.1 {INR} High 0.8-1.1 [facility] Comment on above: Performed By: #### B MARTHA HSIEH, 57461-6, PINR #### [facility] ([id number]) [address] [place] [address] PT Coag (PPP) [Time] 23.7 s High 9.8-13.2 [facility] Comment on above: Result Comment: NEW REFERENCE RANGE Performed By: #### B МАРИЯ CBCA, 43812-1, PINR #### [facility] ([id number]) [address] [place] [address] 06959 aPTT Coag (PPP) [Time]on aPTT Coag (Bld) [Time] 48 s High 26-37 [facility] Comment on above: Result Comment: NEW REFERENCE RANGE Performed By: #### B MP, CBCA, 09103-6, PINR #### [facility] ([id number]) [address] [place] [address], [place] [address] MR LUMBAR SPINE WO CONTon MR LUMBAR [...] Stephens MD on 04/01/2024 10:47 PM Normal [facility] Vital Signs Date Time Vital Sign Value Performing Clinician Facility 01-09-2025 13:25-0400 Body height 175.3 cm Edilson Guzman DPM Work Phone: [facility] 01-09-2025 13:25-0400 Body mass index (BMI) [Ratio] 26.58 kg/m2 Edilson Guzman DPM Work Phone: [facility] 01-09-2025 13:25-0400 Body weight 81.65 kg Edilson Guzman DPM Work Phone: [facility] 10-10-2024 10:53-0400 Body height 175.3 cm Gretta Whitlock MD Work Phone: [facility] 10-10-2024 10:53-0400 Body mass index (BMI) [Ratio] 26.58 kg/m2 Gretta Whitlock MD Work Phone: [facility] 10-10-2024 10:53-0400 Body weight 81.65 kg Gretta Whitlock MD Work Phone: [facility] 10-10-2024 10:53-0400 Diastolic blood pressure 72 mm[Hg] Gretta Whitlock MD Work Phone: [facility] 10-10-2024 10:53-0400 Heart rate 59 /min Gretta Whitlock MD Work Phone: [facility] 10-10-2024 10:53-0400 SaO2% (BldA) [Mass fraction] 99 % Gretta Whitlock MD Work Phone: [facility] 10-10-2024 10:53-0400 Systolic blood pressure 126 mm[Hg] Gretta Whitlock MD Work Phone: [facility] 10-04-2024 11:29-0400 Body height 175.3 cm Edilson Guzamn DPM Work Phone: [facility] 10-04-2024 11:29-0400 Body mass index (BMI) [Ratio] 26.58 kg/m2 Edilson Guzman DPM Work Phone: [facility] 10-04-2024 11:29-0400 Body temperature 97.7 [degF] Edilson Megan DPM Work Phone: [facility] 10-04-2024 11:29-0400 Body weight 81.65 kg Edilson Lockett DPM Work Phone: [facility] 10-02-2024 13:11-0400 Body height 175.3 cm Bebeto LEON Work Phone: [facility] 10-02-2024 13:11-0400 Body mass index (BMI) [Ratio] 26.58 kg/m2 Bebeto Beard PA Work Phone: [facility] 10-02-2024 13:11-0400 Body weight 81.65 kg Bebeto Beard PA Work Phone: [facility] 09-26-2024 09:37-0400 Body height 175.3 cm Gretta Whitlock MD Work Phone: [facility] 09-26-2024 09:37-0400 Body mass index (BMI) [Ratio] 26.58 kg/m2 Gretta Whitlock MD Work Phone: [facility] 09-26-2024 09:37-0400 Body temperature 97.7 [degF] Gretta Whitlock MD Work Phone: [facility] 09-26-2024 09:37-0400 Body weight 81.65 kg Gretta Whitlock MD Work Phone: [facility] 09-26-2024 09:37-0400 Diastolic blood pressure 80 mm[Hg] Gretta Whitlock MD Work Phone: [facility] 09-26-2024 09:37-0400 Heart rate 60 /min Gretta Whitlock MD Work Phone: [facility] 09-26-2024 09:37-0400 SaO2% (BldA) [Mass fraction] 98 % Gretta Whitlock MD Work Phone: [facility] 09-26-2024 09:37-0400 Systolic blood pressure 130 mm[Hg] Gretta Whitlock MD Work Phone: [facility] 09-04-2024 12:58-0500 Body height 175.3 cm Vandana Brar SUPERVISOR [employer]-GENERAL CLERK Work Phone: [facility] 09-04-2024 12:58-0500 Body mass index (BMI) [Ratio] 27.02 kg/m2 Vandana Brar SUPERVISOR [employer]-GENERAL CLERK Work Phone: [facility] 09-04-2024 12:58-0500 Body weight 83.01 kg Vandana Brar SUPERVISOR [employer]OR[employer]-GENERAL CLERK Work Phone: [facility] 09-04-2024 12:58-0500 Diastolic blood pressure 72 mm[Hg] Vandana Brar SUPERVISOR [employer]OR[employer]-GENERAL CLERK Work Phone: [facility] 09-04-2024 12:58-0500 Heart rate 54 /min Vandana Valdovinosley SUPERVISOR [employer]-GENERAL CLERK Work Phone: [facility] 09-04-2024 12:58-0500 SaO2% (BldA) [Mass fraction] 97 % Vandana Brar SUPERVISOR [employer]-GENERAL CLERK Work Phone: [facility] [place] 09-04-2024 12:58-0500 Systolic blood pressure 120 mm[Hg] Vandana Valdovinosley SUPERVISOR [employer]OR[employer]-GENERAL CLERK Work Phone: [facility] 05-23-2024 11:55-0500 Diastolic blood pressure 73 mm[Hg] Bebeto LEON Work Phone: [facility] 05-23-2024 11:55-0500 Heart rate 71 /min Bebeto Nienberg PA [facility] 05-23-2024 11:55-0500 Respiratory rate 20 /min Bebeto Nienberg PA Work Phone: [facility] 05-23-2024 11:55-0500 SaO2% (BldA) [Mass fraction] 100 % Beebto Nienberg PA Work Phone: [facility] 05-23-2024 11:55-0500 Systolic blood pressure 145 mm[Hg] Bebeto Nienberg PA Work Phone: [facility] 04-09-2024 10:12-0400 Body height 175.3 cm Bebeto Nienberg PA Work Phone: [facility] Comment on above: stated 04-09-2024 10:12-0400 Body mass index (BMI) [Ratio] 27.62 kg/m2 Bebeto Nienberg PA Work Phone: [facility] 04-09-2024 10:12-0400 Body weight 84.82 kg Bebeto Nienberg PA Work Phone: [facility] [place] 04-09-2024 10:12-0400 Diastolic blood pressure 97 mm[Hg] Bebeto Nienberg PA Work Phone: [facility] [place] 04-09-2024 10:12-0400 Heart rate 63 /min Bebeto Nienberg PA Work Phone: [facility] 04-09-2024 10:12-0400 Respiratory rate 16 /min Bebeto Nienberg PA Work [facility]: [facility] 04-09-2024 10:12-0400 SaO2% (BldA) [Mass fraction] 100 % Bebeto Nienberg PA Work Phone: [facility] 04-09-2024 10:12-0400 Systolic blood pressure 141 mm[Hg] Bebeto Nienberg PA Work [facility] 02-22-2024 13:29-0400 Body height 175.3 cm Bebeto Nienberg PA Work Phone: [facility] [place] 02-22-2024 13:29-0400 Body mass index (BMI) [Ratio] 26.73 kg/m2 Bebeto Nienberg PA Work Phone: [facility] 02-22-2024 13:29-0400 Body weight 82.1 kg Bebeto Nienberg PA Work Phone: [facility] 02-22-2024 13:29-0400 Diastolic blood pressure 79 mm[Hg] Bebeto Nienberg PA Work Phone: [facility] 02-22-2024 13:29-0400 Heart rate 65 /min Bebeto Nienberg PA Work Phone: [facility] 02-22-2024 13:29-0400 SaO2% (BldA) [Mass fraction] 99 % Bebeto Nienberg PA Work Phone: [facility] 02-22-2024 13:29-0400 Systolic blood pressure 115 mm[Hg] Bebeto Nienberg PA Work Phone: [facility] 01-09-2024 12:23-0400 Body height 175.3 cm Bebeto Nienberg PA Work Phone: [facility] 01-09-2024 12:23-0400 Body mass index (BMI) [Ratio] 27.02 kg/m2 Bebeto Nienberg PA Work Phone: [facility] 01-09-2024 12:23-0400 Body weight 83.01 kg Bebeto Nienberg PA Work Phone: [facility] 01-09-2024 12:23-0400 Diastolic blood pressure 84 mm[Hg] Bebeto Nienberg PA Work Phone: [facility] 01-09-2024 12:23-0400 Heart rate 65 /min Bebeto Nienberg PA Work Phone: [facility] 01-09-2024 12:23-0400 Respiratory rate 16 /min Bebeto LEON Work Phone: [facility] 01-09-2024 12:23-0400 SaO2% (BldA) [Mass fraction] 98 % Bebeto LEON Work Phone: [facility] 01-09-2024 12:23-0400 Systolic blood pressure 142 mm[Hg] Bebeto LEON Work Phone: [facility] Encounters Encounter Date Encounter Type Care Provider Facility Start: 03-11-2025 End: 03-11-2025 Office outpatient visit 15 minutes Edilson Guzman DPM Work Phone: [facility] Comment on above: Diabetic ulcer of to e associated with type 2 diabetes mellitus, with fat layer exposed, unspecified laterality (HCC) (Primary Dx); Status post partial amputation of left foot (HCC); Angiopathy, diabetic (HCC); Diabetic polyneuropathy associated with type 2 diabetes mellitus (HCC) Start: 03-11-2025 End: 03-11-2025 Bamboo flowsheet Edilson Guzman DPM Work Phone: [facility] Start: 03-11-2025 End: 03-11-2025 Bamboo flowsheet Edilson Guzman DPM Work Phone: [facility] Start: 03-11-2025 End: 03-11-2025 ambulatory EDILSON GUZMAN Not Available Start: 02-13-2025 ambulatory [facility] Start: 01-09-2025 End: 01-09-2025 Bamboo flowsheet Edilson Guzman DPM Work Phone: [facility] Start: 01-09-2025 End: 01-09-2025 Bamboo flowsheet Edilson Guzman DPM Work Phone: [facility] Start: 01-09-2025 End: 01-09-2025 Patient encounter procedure Edilson Guzman DPM Work Phone: [facility] Comment on above: Dermatophytosis of n ail (Primary Dx); Dystrophic nail; Status post partial amputation of left foot (HCC); Angiopathy, diabetic (HCC); Diabetic polyneuropathy associated with type 2 diabetes mellitus (HCC) Start: 01-09-2025 End: 01-09-2025 ambulatory EDILSON GUZMAN Not Available Start: 01-01-2025 End: 01-01-2025 ambulatory SHERINE RAMIRES [facility] Start: 12-19-2024 End: 12-19-2024 Refill Bebeto Espino SUPERVISOR [employer]-GENERAL CLERK Work Phone: [facility] Comment on above: Med Refill Start: 11-14-2024 End: 11-14-2024 Emergency department patient visit [facility] Start: 11-12-2024 End: 11-12-2024 ambulatory Mariana Liu [facility] Work Phone: Start: 11-12-2024 End: 11-12-2024 Departed Referred Mariana [facility] DPM Work Phone: [facility] Start: 11-04-2024 End: 11-04-2024 ambulatory [facility] Start: 11-04-2024 End: 11-04-2024 ambulatory [facility] Start: 11-04-2024 Encounter for other preprocedural examination [facility] Start: 10-15-2024 End: 10-21-2024 Telephone encounter Phylicia Torres LPN [facility] Comment on above: Surgical Or Dental C learance Start: 10-10-2024 End: 10-10-2024 Office outpatient visit 15 minutes Gretta Whitlock MD Work Phone: [facility] Comment on above: 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 (CMS-HCC) (Primary Dx) Start: 10-10-2024 End: 10-10-2024 [facility] Start: 10-04-2024 End: 10-04-2024 Bamboo flowsheet Edilson Guzman DPM Work Phone: [facility] Start: 10-04-2024 End: 10-04-2024 Bamboo flowsheet Edilson Guzman DPM Work Phone: [facility] Start: 10-04-2024 End: 10-04-2024 Office outpatient new 45 minutes Edilson Guzman DPM Work Phone: [facility] Comment on above: Paronychia of great toe of right foot (Primary Dx); Angiopathy, diabetic ([facility]); Diabetic polyneuropathy associated with type 2 diabetes mellitus ([facility]); Status post partial amputation of left foot ([facility]) Start: 10-04-2024 End: 10-04-2024 ambulatory EDILSON GUZMAN Not Available Start: 10-02-2024 End: 10-02-2024 Bamboo flowsheet Bebeto LEON Work Phone: [facility] Start: 10-02-2024 End: 10-02-2024 Bamboo flowsheet Bebeto LEON Work Phone: [facility] Start: 10-02-2024 End: 10-02-2024 ambulatory BEBETO BEARD Not Available Start: 10-02-2024 End: 10-02-2024 Office outpatient new 45 minutes Bebeto LEON Work Phone: [facility] Comment on above: Acute pain of right knee (Primary Dx); Arthritis of right knee; Effusion of right knee Start: 09-27-2024 End: 09-27-2024 ambulatory GRETTA WHITLOCK [facility] Start: 09-26-2024 End: 09-26-2024 Office outpatient new 45 minutes Gretta Whitlock MD Work Phone: [facility] Comment on above: 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 ([facility]) (Primary Dx); PVD (peripheral vascular disease) ([facility]) Start: 09-26-2024 End: 09-26-2024 ambulatory GRETTA WHITLOCK [facility] Start: 09-23-2024 End: 09-23-2024 ambulatory VANDANA BRAR [facility] Start: 09-13-2024 End: 09-13-2024 Emergency department patient visit PENDING S[facility] TO [facility] Start: 09-04-2024 End: 09-04-2024 Office outpatient visit 15 minutes Vandana Brar SUPERVISOR [employer]-GENERAL CLERK Work Phone: [facility] Comment on above: Ventricular tachycar gaye ([facility]) (Primary Dx); AICD present, double chamber; Encounter for monitoring amiodarone therapy; Paroxysmal atrial fibrillation ([facility]); Typical atrial flutter ([facility]); V-tach ([facility]); Essential hypertension Start: 09-04-2024 End: 09-04-2024 Clinical Support Pm P[facility] Pac[facility] Comment on above: AICD present, double chamber- [employer] (Primary Dx) Start: 09-03-2024 End: 09-03-2024 Telephone encounter Marisela Mcguire CMA [facility] Start: 07-22-2024 End: 07-22-2024 [facility] Start: 07-12-2024 End: 07-22-2024 Refill Lilaina Rivera SUPERVISOR [employer]-GENERAL CLERK Work Phone: [facility] Comment on above: Med Change Request Start: 05-23-2024 End: 05-23-2024 Refill Bebeto Espino SUPERVISOR [employer]OR[employer]-GENERAL CLERK Work Phone: [facility] Comment on above: Med Refill Start: 05-23-2024 End: 05-23-2024 Office outpatient visit 15 minutes Bebeto LEON Work Phone: [facility] Comment on above: Lumbosacral 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 (Primary Dx) Start: 05-23-2024 End: 05-23-2024 ambulatory BEBETO S [facility] Start: 05-09-2024 End: 05-09-2024 ambulatory IZZY SAM [facility] Start: 05-03-2024 End: 05-03-2024 ambulatory ALBER HYED [facility] Start: 04-16-2024 End: 04-16-2024 Emergency department patient visit PENDING SALE TO [facility] Start: 04-09-2024 End: 04-09-2024 Office outpatient visit 25 minutes Bebeto LEON Work Phone: [facility] Comment on above: Lumbosacral 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 (Primary Dx) Start: 04-09-2024 End: 04-09-2024 ambulatory [facility] Start: 04-01-2024 End: 04-01-2024 ambulatory [facility] Start: 02-22-2024 End: 02-22-2024 Office outpatient visit 25 minutes Bebeto LEON Work Phone: [facility] Comment on above: Lumbosacral 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 (Primary Dx); Disc displacement, lumbar; Lumbar radiculopathy, chronic Start: 02-22-2024 End: 02-22-2024 ambulatory [facility] Start: 02-21-2024 End: 02-21-2024 Refill Marsha GILLESPIE Work Phone: [facility] Comment on above: Med Refill Start: 01-17-2024 End: 01-17-2024 Telephone encounter Di London CNA [facility] Start: 01-11-2024 End: 01-11-2024 Telephone encounter Mariana Reyez RN [facility] Start: 01-09-2024 End: 01-09-2024 Office outpatient new 30 minutes Bebeto LEON Work Phone: [facility] Comment on above: Lumbar spondylolysis (Primary Dx) Start: 11-14-2022 End: 11-15-2022 ambulatory MARIANA Liu [facility] Facility:H1 Start: 10-24-2022 End: 10-25-2022 ambulatory MARIANA Liu [facility] Facility:H1 Start: 10-03-2022 End: 10-04-2022 ambulatory MARIANA GUTIÉRREZ Facility:H1 Start: 09-12-2022 End: 09-13-2022 ambulatory CHET FOURNIER Facility:H1 Start: 08-23-2022 End: 08-24-2022 ambulatory MARIANA Liu [facility] Facility:H1 Start: 08-16-2022 End: 08-17-2022 ambulatory MARIANA Liu [facility] Facility:H1 Start: 08-09-2022 End: 08-10-2022 ambulatory MARIANA Liu [facility] Facility:H1 Procedures Date Procedure Procedure Detail Performing Clinician Start: 10-02-2024 Arthrocentesis aspir &/inj major jt/bursa w/o us Bebeto LEON Work Phone: Start: 09-04-2024 Ecg routine ecg w/le ast 12 lds w/i&r Vandana Brar SUPERVISOR [employer]-GENERAL CLERK Work Phone: Start: 09-04-2024 Follow-up visit Follow-up VANDANA RBAR Start: 04-06-2023 Microalbumin [Mass/v olume] in Urine by Test strip Bebeto LEON Work Phone: Plan of Treatment Date Care Activity Detail Author Start: 11-14-2025 Tobacco Screening Tobacco Screening [facility] Start: 11-04-2025 Adult BMI Screening Adult BMI Screen ing [facility] Start: 10-10-2025 Adult BMI Screening Adult BMI Screen ing [facility] Start: 10-10-2025 Tobacco Screening Tobacco Screening [facility] Start: 09-27-2025 Adult BMI Screening Adult BMI Screen ing [facility] Start: 09-27-2025 Tobacco Screening Tobacco Screening [facility] Start: 09-13-2025 Adult BMI Screening Adult BMI Screen ing [facility] Start: 09-13-2025 Tobacco Screening Tobacco Screening [facility] Start: 09-04-2025 Adult BMI Screening Adult BMI Screen ing [facility] Start: 09-04-2025 Tobacco Screening Tobacco Screening [facility] Start: 05-23-2025 Tobacco Screening Tobacco Screening [facility] Start: 04-16-2025 Adult BMI Screening Adult BMI Screen ing [facility] Start: 04-14-2025 End: 04-14-2025 Patient encounter procedure [facility] Start: 04-09-2025 Adult BMI Screening Adult BMI Screen ing [facility] Start: 04-09-2025 Tobacco Screening Tobacco Screening [facility] Start: 03-11-2025 End: 03-11-2025 Patient encounter procedure 03/11/2025 2:15 PM EDT Office Visit [facility] [address] [place] [phone] Edilson Guzman DPM [address] [place], [place] [id number] Arrived [facility] Comment on above: Arrived Start: 03-03-2025 Influenza vaccination [facility] Start: 02-21-2025 Adult BMI Screening Adult BMI Screen ing [facility] Start: 02-21-2025 Tobacco Screening Tobacco Screening [facility] Start: 01-09-2025 End: 01-09-2025 Patient encounter procedure [facility] Comment on above: Arrived Start: 01-08-2025 Adult BMI Screening Adult BMI Screen ing [facility] Start: 01-08-2025 Tobacco Screening Tobacco Screening [facility] Start: 11-04-2024 End: 11-04-2024 Patient encounter procedure [facility] Start: 10-04-2024 End: 10-04-2024 Patient encounter procedure [facility] Comment on above: Arrived Start: 09-26-2024 End: 09-26-2024 Patient encounter procedure 09/26/2024 9:40 AM EDT [facility] [address] [place] [phone] Gretta Whitlock MD [address], [address] [address] [facility] Start: 09-16-2024 End: 09-16-2024 Patient encounter procedure 09/16/2024 11:00 AM EDT Appointment [facility] [address] [place] [address] Vandana Brar, SUPERVISOR [employer]-GENERAL CLERK [address] [place] [address] [facility] Start: 09-04-2024 End: 09-04-2024 Patient encounter procedure 09/04/2024 2:30 PM EST Office Visit [facility] [address] [place] [phone] Vandana Brar, SUPERVISOR [employer]-GENERAL CLERK [address] [place] [address] [facility] Start: 09-04-2024 End: 09-04-2024 Clinical Support 09/04/2024 1:15 PM EST Clinical Support [facility] [address] [place] [phone] [facility] Start: 07-24-2024 End: 07-24-2024 Clinical Support [facility] Start: 07-04-2024 End: 07-04-2024 Patient encounter procedure 07/04/2024 10:00 AM EST Office Visit [facility] [address] [place] [phone] Bebeto Romano PA [address] [place] [address] [facility] Start: 05-23-2024 End: 05-23-2024 Patient encounter procedure 05/23/2024 12:45 PM EST Office Visit [facility] [address] [place] [address] Bebeto Romano PA [address] [place] [address] [facility] Start: 05-03-2024 End: 05-03-2024 Admission to same day surgery center 05/03/2024 8:58 AM EDT - 05/03/2024 9:06 AM EDT Surgery [facility] [address] [place] [phone] Alber Hyde MD [address] [place] [id number] INJECTION BLOCK NERVE MEDIAL BRANCH: bilat L45 51 [31758 (CPT )] [facility] Comment on above: INJECTION BLOCK NERV E MEDIAL BRANCH: bilat L45 51 [71341 (CPT )] Start: 05-03-2024 End: 05-03-2024 Njx dx/ther agt pvrt facet jt lmbr/sac 1 level INJECTION BLOCK NERVE MEDIAL BRANCH Lumbosacral spondylosis without myelopathy 05/03/2024 8:58 AM EDT [facility] Start: 05-03-2024 Subsequent hospital visit by physician 05/03/2024 8:58 AM EDT Hospital Encounter [facility] [address] [place] [phone] Alber Hyde MD [address] [facility] [place] [id number] [facility] Start: 04-06-2024 Urine screening for protein Urine Microalbumin [facility] [facility] Start: 04-04-2024 End: 04-04-2024 Patient encounter procedure 04/04/2024 1:15 PM EDT Appointment [facility] [address] [place] [id number] Bebeto Romano PA [address] [place], [place] [phone] [facility] Start: 03-03-2024 COVID-19 Vaccine ( season) COVID-19 Vaccine ( season) [facility] Start: 03-03-2024 COVID-19 Vaccine ( season) COVID-19 Vaccine () [facility] Start: 03-03-2024 Influenza vaccination Influenza Vacc ine [facility] Start: 02-22-2024 End: 02-22-2024 Patient encounter procedure 02/22/2024 2:45 PM EDT Office Visit [facility] [address] [place] [phone] Bebeto Romano PA [address] [place], [place] [phone] [facility] Start: 04-25-2023 Pneumococcal Vaccine : 65+ Years (2 of 2 - PCV) Pneumococcal Vaccine: 65+ Years (2 of 2 - PCV) [facility] Start: 03-03-2023 COVID-19 Vaccine ( season) COVID-19 Vaccine ( season) [facility] Start: 2019 Abdominal aortic aneurysm screening Abdominal Aortic Aneurysm (AAA) Screen [facility] Start: 2019 Fall Risk Screening Fall Risk Screen ing [facility] Start: 2004 Administration of varicella zoster vaccine Zoster (Shingles) Vaccine (1 of 2) [facility] Start: 1973 DTaP,Tdap and Td Vaccines (1 - Tdap) DTaP,Tdap and Td Vaccines (1 - Tdap) [facility] Start: 1972 Adult BMI Follow Up Plan Adult BMI F ollow Up Plan [facility] Start: 1972 Diabetic foot examination Diabetic Foot Exam [facility] Start: 1966 Depression Screening Depression Scre ening [facility] Start: 1954 Glaucoma screening Diabetic Op hthalmology Exam [facility] Start: 1954 Medicare Annual Well ness Visit Medicare Annual Wellness Visit [facility] Start: 1954 Screening for malign ant neoplasm of colon [facility] End: 02-21-2025 MR Lumbar spine WO contrast MR lumbar spine without contrast Imaging Routine Lumbar radiculopathy, chronic 1 Occurrences starting 02/22/2024 until 02/21/2025 [employer] Work Phone: Comment on above: 1 Occurrences [...] therapy 1 Occurrences starting 09/04/2024 until 09/04/2025 [employer] Work Phone: Comment on above: 1 Occurrences starti 09/04/2024 until 09/04/2025 Immunizations Immunization Date Immunization Notes Care Provider Fa [facility] 04-11-2023 influenza virus vacc ine, unspecified formulation Bebeto LEON Work Phone: [facility] 04-25-2022 pneumococcal polysaccharide vaccine, 23 valent Edilson Guzman DPM Work Phone: [facility] 08-24-2021 tuberculin skin test ; purified protein derivative solution, intradermal Edilson Guzman DPM Work Phone: [facility] 08-17-2021 tuberculin skin test ; purified protein derivative solution, intradermal Edilson Guzman DPM Work Phone: [facility] 04-19-2021 influenza, injectabl e, quadrivalent, preservative free Bebeto LEON Work Phone: [facility] 12-05-2018 tuberculin skin test ; purified protein derivative solution, intradermal Edilson Rusher DPM Work Phone: [facility] 11-28-2018 tuberculin skin test ; purified protein derivative solution, intradermal Edilson Rusher DPM Work Phone: [facility] 11-22-2018 tuberculin skin test ; purified protein derivative solution, intradermal Edilson Rusher DPM Work Phone: [facility] 05-18-2018 Influenza, injectabl e, Madin [place] Canine Kidney, preservative free, quadrivalent Bebeto LEON Work Phone: [facility] 05-10-2017 influenza, seasonal, injectable, preservative free Bebeto LEON Work Phone: [facility] 03-25-2015 influenza, seasonal, injectable, preservative free Bebeto LEON Work Phone: [facility] 04-15-2014 influenza, seasonal, injectable Bebeto LEON Work Phone: [facility] Payers Date Payer Category Payer Self-pay 2016 Medicaid [id number] 5.315 1992 Medicare [id number] 2.315 1959 Medicaid [id number] 1959 Medicare [id number] 1954 Unknown [id number] 2.16.84 0.1.746366.3.579.2.593 1954 Unknown [id number] 2.16.84 0.1.049889.3.579.2.593 1954 Unknown [id number] 2.16.84 0.1.186008.3.579.2.593 1954 Unknown [id number] 2.16.84 0.1.374849.3.579.2.593 1954 Unknown [id number] 2.16.84 0.1.221977.3.579.2.593 1954 Unknown [id number] 2.16.84 0.1.037827.3.579.2.593 1954 Unknown [id number] 2.16.84 0.1.911342.3.579.2.593 1954 Unknown [id number] 2.16.840.1.872315.3.579.2.1286 1954 Unknown [id number] 2.16840.1.303516.3.579.2.1286 1954 Unknown [id number] 2.16840.1.567586.3.579.2.1286 1954 Unknown [id number] 2.16.840.1.920078.3.579.2.1286 1954 Unknown [id number] 2.16.840.1.066616.3.579.2.1286 1954 Unknown [id number] 2.16840.1.854709.3.579.2.1286 1954 Unknown [id number] 2.16.840.1.982957.3.579.2.1286 1954 Unknown [id number] 2.16.840.1.673818.3.579.2.1286 1954 Unknown [id number] 2.16.840.1.873289.3.579.2.1286 1954 Unknown [id number] 2.16.840.1.590514.3.579.2.1286 1954 Unknown [id number] 2.16.840.1.769901.3.579.2.1286 1954 Unknown [id number] 2.16.840.1.481498.3.579.2.1286 1954 Unknown [id number] 2.16.840.1.362744.3.579.2.1286 1954 Unknown [id number] 2.16.840.1.250980.3.579.2.1286 1954 Unknown [id number] 2.16.840.1.121045.3.579.2.1286 1954 Unknown [id number] 2.16.8 40.1.057288.3.579.2.1285 1954 Unknown [id number] 2.16.8 40.1.690703.3.579.2.1285 1954 Unknown [id number] 2.16.8 40.1.358516.3.579.2.1285 1954 Unknown [id number] 2.16.8 40.1.161566.3.579.2.1285 1954 Unknown [id number] 2.16.8 40.1.169363.3.579.2.1285 1954 Unknown [id number] 2.16.8 40.1.886140.3.579.2.1285 1954 Unknown [id number] 2.16.8 40.1.355301.3.579.2.1286 1954 Unknown [id number] 2.16.8 40.1.079296.3.579.2.128 1954 Unknown [id number] 2.16.8 40.1.471047.3.579.2.9 1954 Unknown [id number] 2.16.8 40.1.191881.3.579.2.9 1954 Unknown [id number] 2.16.84 0.1.620169.3.579.2.1259 1954 Unknown [id number] 2.16.84 0.1.331471.3.579.2.1259 Medicare Medicare Nonpatient [id number] Unknown [id number] 2.16.8 40.1.109163.3.579.2.531 Social History Date Type Detail Facility Start: 01-09-2024 End: 01-09-2025 Tobacco smoking status KSIS Ex-smoker [facility] History of tobacco use Current smoker [facility] History of tobacco use Cigarette Smoker P [facility] Start: 01-09-2024 End: 01-09-2025 Tobacco use and exposure Smokeless tobacco non-user [facility] Start: 05-23-2024 End: 11-14-2024 Alcoholic beverage intake Current non-drinker of alcohol (finding) [facility] Start: 05-23-2024 End: 03-11-2025 History of Social function [facility] Start: 05-23-2024 End: 03-11-2025 Tobacco use panel [facility] Childcare Unknown [facility] Start: 1955 Sex assigned at Not on file [facility] Start: 02-05-2015 End: 11-14-2024 Sex Male (finding) [facility] Tobacco smoking stat [facility] Tobacco smoking consumption unknown [facility] Start: 10-02-2024 End: 03-11-2025 Alcoholic beverage intake Ex-drinker (finding) [facility] Start: 1955 Sex Assigned At Male F [facility] Medical Equipment Procedure Code Equipment Code Equipment Origin al Text Equipment Identifier Dates Ld Pcng 55cm Rv Sq Scr S Df-4 - [id number] - [id number] Start: 11-20-2018 Lead Capsure Fix Novus 5076-45 - [id number] - [id number] Start: 11-20-2018 Lead Capsure Fix Novus 5076-52 - [id number] - [id number] Start: 07-21-2020 [facility] Tootie dixon Xt - [id number] - [id number] Start: 11-20-2018 Sys Tootie Estebanl Linq [facility] [id number] - [id number] - [id number] Start: 11-16-2018 Start: 01-20-2018 Goals Date Patient Goal Desired Activity /State Personal health goal Comment on above: Formatting of this n ote might be different from the original. Evaluation of progress towards goal: discharge home with religious/friends support. Personal health goal Comment on above: [...] Patient will continue wound care measures with [facility] wound care services. Follow up: Accordingly [...] Edilson Guzman DPM documented in this encounter [facility] 03-11-2025 Instructions Edilson Guzman DPM - 03/11/2025 2:15 PM EDT As noted documented in this encounter [facility] 01-09-2025 History of Present illness Narrative [...] Edilson Guzman DPM documented in this encounter [facility] 01-09-2025 Instructions Edilson Guzman DPM - 01/09/2025 1:30 PM EDT As noted documented in this encounter [facility] 12-19-2024 Miscellaneous Notes Images from the original note were not included. Last OV 09/04/2024 CMP and CBC 11/14/2024 documented in this encounter [facility] 12-19-2024 Telephone encounter Note Images from the original note were not included. Last OV 09/04/2024 CMP and CBC 11/14/2024 [facility] 10-15-2024 Miscellaneous Notes Surgeon: Dr Gutiérrez Type of surgery: lt transmetatarsal amputation with delayed primary closure of ulceration Date of surgery: pending Surgery location: [facility] Type of anesthesia: general On a [...] Thank you Pt scheduled for lexiscan at [facility] 11/04/24 documented in this encounter [facility] 10-15-2024 Telephone encounter Note Surgeon: Dr Gutiérrez Type of surgery: lt transmetatarsal amputation with delayed primary closure of ulceration Date of surgery: pending Surgery location: [facility] Type of anesthesia: general On a blood thinner?: xarelto Indication? At Fib On an antiplatelet?: asa Stent? no Date of last EK09/04/24 Last office visit date and who they saw: AM 09/04/24 Their preference of how long to hold blood thinners/antiplatelet: per cardiology recommendations History of CVA/TIA, DVT/PE? [facility] Tele[facility] encounter Note Can not complete at least 4 Mets of activity 2/2 mobility issues. Will need nuclear stress for cardiac clearance. If nuclear stress normal, can hold aspirin 3-5 days preop and Xarelto 48 hours preop with resumption of both medications as soon as possible postoperative once deemed safe by surgeon. Thank you [facility] 10-15-2024 Telephone encounter Note Pt scheduled for lexiscan at PM 11/04/24 [facility] 10-10-2024 Evaluation + Plan note Associated Problem(s): Critical limb ischemia of left lower extremity with gangrene (CMS-HCC) PVR. Continue best medical therapy with aspirin and statin. [facility] 10-10-2024 Miscellaneous Notes Associated Problem(s): Critical limb ischemia of left lower extremity with gangrene (CMS-HCC) PVR. Continue best medical therapy with aspirin and statin. documented in this encounter [facility] 10-10-2024 History of Present illness Narrative Images from the original note were not included. To: [facility] HPI: Tomas Frausto is a 69 [...] pectoris Arrhythmia Atrial fibrillation (CMS-HCC) Atrial flutter ([facility]) Atrial flutter ([facility]) Benign prostatic hyperplasia BPH with urinary obstruction Cancer (CMS-HCC) skin cancer Cataract Constipation Coronary artery disease Dental disease no teeth Diabetes mellitus (CMS-HCC) Diabetes mellitus type 2, controlled ([facility]) Hypercholesterolemia Hypertension Myositis Peripheral neuropathy Rash Scalp wound Urinary incontinence Ventricular tachycardia ([facility]) Visual impairment glasses Past Surgical History: Past Surgical History: Procedure Laterality Date 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; excision and debridement Left 10/29/2021 Performed by Ambrosio Al MD at [facility] AMPUTATION TOE 4TH & 5TH/WIDE INCISIONAL DEBRIDEMENT LEFT DIABETIC FOOT NECROTIZING FASCITIS Left 08/12/2021 Performed by Ambrosio Al MD at [facility] ANGIO LOWER EXT Left 09/27/2024 Performed by Gretta Whitlock MD at [facility] CARDIAC DEFIBRILLATOR PLACEMENT medtronic CATARACT EXTRACTION Coronary angiogram and left ventricular gram/pressure N/A 11/19/2018 Performed by Sage Jay MD at [facility] Coronary fractional flow reserve N/A 11/19/2018 Performed by Sage Jay MD at [facility] CYSTOSCOPY [facility] SOLUTION N/A 10/27/2021 Performed by Frederic Thorne MD at [place] [facility] DC ICD RA lead replace - MDT N/A 07/21/2020 Performed by Yoni Espinoza MD at [facility] (EP) EP - Device DC ICD Left 11/20/2018 Performed by Shayna Betancourt MD at [facility] (EP) EP - Diagnostic-- EP study Right 11/16/2018 Performed by Rafita Garcia MD at [facility] (EP) INJECTION BLOCK NERVE MEDIAL BRANCH: bilat L 10/05, 10/31 Bilateral 05/03/2024 Performed by Alber Hyde MD at [place] [facility] Loop recorder implant N/A 11/16/2018 Performed by Rafita Garcia MD at [facility] (EP) Loop recorder removal N/A 07/21/2020 Performed by Yoni Espinoza MD at [facility] (EP) Percutaneous angioplasty tibia/per initial vessel left Left 09/27/2024 Performed by Gretta Whitlock MD at [facility] Percutaneous angioplasty tibia/per initial vessel/EACH ADDITIONAL Right 09/27/2024 Performed by Gretta Whitlock MD at [facility] SKIN CANCER EXCISION [...] Interpersonal Safety: Unknown (08/24/2023) Received from [facility] [place] [facility] Fear of [...] Gretta Whitlock MD, RONNIE, RPVI, FSVS, FACS [facility] [employer] [facility] This note was created with the assistance of a speech recognition program. While intending to generate a timely document that accurately reflects the content of the visit, no guarantee can be provided that every grammatical or spelling mistake has been or will be identified or corrected. Thank you for your understanding. documented in this encounter [facility] 10-04-2024 History of Present illness Narrative Images from the original note were not included. Subjective Patient ID: Tomas Frausto is a 69 y.o. male who presents for Toe Pain (Tomas Frausto 69yo New Patient last seen 07/12/2021. Patient is diabetic. Concerns of Right great toenail infection, patient relates drainage, thick and painful. Patient is seeing wound care in [place] for possible partial amputation of left foot, due to non-healing after amputation surgery 3 years ago, in [place]. Currently taking cephalexin for left foot infection. [...] Edilson Guzman DPM documented in this encounter [facility] 10-04-2024 Instructions Edilson Guzman DPM - 10/04/2024 11:30 AM EDT As noted documented in this encounter [facility] 10-02-2024 History of Present illness Narrative Associated Order(s): L Inj/Asp: R knee Post-Procedure Diagnose(s): Arthritis of right knee; Effusion of right knee Images from the original note were not included. NAME: Tomas Frausto : 1955 HISTORY OF PRESENT ILLNESS: NEW PT Tomas Frausto is an 69 y.o. @ male. (NEW PT) [facility] REFERRAL. RT KNEE PAIN 09/11/24 (3 WKS), WENT TO [facility] ER 09/13, HAD XR AND GIVEN KNEE IMMOBILIZER. XRAY [facility] 09/13/24 WORE KNEE IMMOBILIZER FOR A COUPLE DAYS. PRESENTS IN WC TODAY. USES WALKER AT HOME. USED WC FOR DISTANCE. PAIN DIFFUSE IN KNEE. DENIES RADIATION. INTERMITTENT PAIN. +TYL. USED ICE ONCE. DENIES N/T. +SWELLING. KNEE POPPED ONCE GOING UP THE STEPS. +GIVING OUT SENSATION. DOES NOT WAKE AT HS. *ON XARELTO PAST MEDICAL HISTORY: Past Medical History: Diagnosis Date Diabetes ([facility]) H/O blood clots PAST SURGICAL HISTORY: Past [...] and flexion. The x-ray from 09/13/2024 at [facility] shows tricompartmental arthritic changes. Treatment plan: A cortisone injection was discussed and administered today. Clinical decision making: Further treatment will be held until he is released from his left foot surgery. Right knee arthritis. The patient has been complaining of knee aching and pain consistent with arthritis. The x-ray from 09/13/2024 at [facility] shows tricompartmental arthritic changes. He has [...] Treatment plan: He follows with a local body builder apprentice and is recommended to have a prompt appointment for evaluation of his right great toe, likely needing nail trimming and potential antibiotics given his history of chronic wounds. Follow-up: Prompt appointment with local body builder apprentice for evaluation of right great toe. PROCEDURE [...] requiring urgent evaluation. documented in this encounter [facility] 09-26-2024 Evaluation + Plan note Associated Problem(s): Critical limb ischemia of left lower extremity with gangrene (CMS-HCC) Left lower extremity angiogram and intervention [facility] 09-26-2024 Miscellaneous Notes Associated Problem(s): Critical limb ischemia of left lower extremity with gangrene ([facility]) Left lower extremity angiogram and intervention documented in this encounter [facility] 09-26-2024 History of Present illness Narrative Images from the original note were not included. To: [facility] [place] HPI: Tomas Frausto is a 69 y.o. [...] Past Medical History: Diagnosis Date Angina pectoris ([facility]) Arrhythmia Atrial fibrillation ([facility]) Atrial flutter ([facility]) Atrial flutter ([facility]) Benign prostatic hyperplasia BPH with urinary obstruction Cancer ([facility]) skin cancer Cataract Constipation Coronary artery disease Dental disease no teeth Diabetes mellitus ([facility]) Diabetes mellitus type 2, controlled ([facility]) Hypercholesterolemia Hypertension Myositis Peripheral neuropathy Rash Scalp wound Urinary incontinence Ventricular tachycardia ([facility]) Visual impairment glasses Past Surgical [...] 11/19/2018 Performed by Sage Jay MD at [facility] Coronary fractional flow reserve N/A 11/19/2018 Performed by Sage Jay MD at [facility] CYSTOSCOPY [facility] SOLUTION N/A 10/27/2021 Performed by Frederic Thorne MD at [facility] DC ICD RA lead replace - MDT N/A 07/21/2020 Performed by Yoni Espinoza MD at [facility] (EP) EP - Device DC ICD Left 11/20/2018 Performed by Shayna Betancourt MD at [facility] (EP) EP - Diagnostic-- EP study Right 11/16/2018 Performed by Rafita Garcia MD at [facility] (EP) INJECTION BLOCK NERVE MEDIAL BRANCH: bilat L 4/5, 5 Bilateral 05/03/2024 Performed by Alber Hyde MD at [facility] Loop recorder implant N/A 11/16/2018 Performed by Rafita Garcia MD at [facility] (EP) Loop recorder removal N/A 07/21/2020 Performed by Yoni Espinoza MD at [facility] (EP) SKIN CANCER EXCISION Social and Family [...] Interpersonal Safety: Unknown (08/24/2023) Received from [facility] [place] [facility] Fear of [...] ischemia of left lower extremity with gangrene ([facility]) - Primary Current Assessment & Plan Left lower extremity angiogram and intervention Tomas was seen today for new patient referral for bilateral lower extremities blood . Diagnoses and all orders for this visit: Critical limb ischemia of left lower extremity with gangrene ([facility]) PVD (peripheral vascular disease) ([facility] [place], [place] Gretta Whitlock MD, RONNIE, RPVI, FSVS, FACS [facility] This note was created with the assistance of a speech recognition program. While intending to generate a timely document that accurately reflects the content of the visit, no guarantee can be provided that every grammatical or spelling mistake has been or will be identified or corrected. Thank you for your understanding. documented in this encounter [facility] 09-04-2024 History of Present illness Narrative Tomas Frausto Date of visit: 09/04/2024 Date of : 1955 Age: 69 y.o. 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, with long-term current use of insulin ([facility]) Atrial fibrillation with RVR ([facility]) V-tach ([facility]) Atherosclerosis of [place] coronary artery of [place] heart without angina pectoris Pure hypercholesterolemia AICD present, double chamber- Medtronic Atrial flutter ([facility]) Paroxysmal atrial fibrillation ([facility]) Myositis Diabetic peripheral neuropathy associated with type 2 diabetes mellitus ([facility]) Hematuria, gross Non-healing surgical wound Degenerative changes of anterior chamber angle Diabetic autonomic neuropathy ([facility]) Diabetic renal disease ([facility]) Essential hypertension Hypomagnesemia Lower urinary tract symptoms due to benign prostatic hyperplasia Osteomyelitis ([facility]) Angina pectoris ([facility]) Lumbosacral spondylosis without myelopathy No Known Allergies [...] moderate LAE, mild RA AE, trace AI, [id number] MR, mild TR, RVSP 31 mm Hg Current cardiac medication regimen amiodarone 200 mg daily, aspirin 81 mg daily, Toprol 100 mg daily, Xarelto 20 mg daily Lives in [place] with friend. Retired - use to work [...] AF. Referred to Nephrology, appt in December. [employer] Dr. Gregg in [place] every 4-6 weeks. Gets shots for macular degeneration Past Medical History: Diagnosis Date Angina pectoris ([facility]) Arrhythmia Atrial fibrillation ([facility]) Atrial flutter ([facility]) Atrial flutter ([facility] [facility]) Benign prostatic hyperplasia BPH with urinary obstruction Cancer ([facility]) skin cancer Cataract Constipation Coronary artery disease Dental disease no teeth Diabetes mellitus ([facility]) Diabetes mellitus type 2, controlled ([facility]) Hypercholesterolemia Hypertension Myositis Peripheral neuropathy Rash Scalp wound Urinary incontinence Ventricular tachycardia ([facility]) Visual impairment glasses No data [...] 11/19/2018 Performed by Sage Jay MD at [facility] Coronary fractional flow reserve N/A 11/19/2018 Performed by Sage Jay MD at [facility] CYSTOSCOPY [facility] SOLUTION N/A 10/27/2021 Performed by Frederic Thorne MD at [facility] DC ICD RA lead replace - MDT N/A 07/21/2020 Performed by Yoni Espinoza MD at [facility] (EP) EP - Device DC ICD Left 11/20/2018 Performed by Shayna Betancourt MD at [facility] (EP) EP - Diagnostic-- EP study Right 11/16/2018 Performed by Rafita Garcia MD at [facility] (EP) INJECTION BLOCK NERVE MEDIAL BRANCH: bilat L 10/05, 10/31 Bilateral 05/03/2024 Performed by Alber Hyde MD at [facility] Loop recorder implant N/A 11/16/2018 Performed by Rafita Garcia MD at [facility] () Loop recorder removal N/A 07/21/2020 Performed by Yoni Espinoza MD at [facility] () SKIN CANCER EXCISION Family History Problem [...] Interpersonal Safety: Unknown (08/24/2023) Received from [facility] [place] Safety & Environment Fear of [...] moderate LAE, mild RA AE, trace AI, [id number] MR, mild TR, RVSP 31 mm Hg [...] Ribeiro 09/04/24 1453 documented in this encounter [facility] 09-04-2024 History of Present illness Narrative I agree with the findings in the scanned document. documented in this encounter [facility] 09-03-2024 Miscellaneous Notes Called patient to remind them to bring their most current copy of their medication list with them to their appt. Patient verbalizes understanding. documented in this encounter [facility] 09-03-2024 Telephone encounter Note Called patient to remind them to bring their most current copy of their medication list with them to their appt. Patient verbalizes understanding. [facility] 09-03-2024 Miscellaneous Notes Called patient to remind them to bring their most current copy of their medication list with them to their appt. Patient verbalizes understanding. documented in this encounter [facility] 09-03-2024 Telephone encounter Note Called patient to remind them to bring their most current copy of their medication list with them to their appt. Patient verbalizes understanding. [facility] 07-12-2024 Miscellaneous Notes Samantha 03/08/23 Pt has future appt 07/24/24 documented in this encounter [facility] 07-12-2024 Telephone encounter Note Samantha 03/08/23 Pt has future appt 07/24/24 [facility] 05-23-2024 History of Present illness Narrative [facility] [address] [place] [address] Patient: Tomas Frausto Sex: male : 1955 [...] Past Medical History: Diagnosis Date Angina pectoris ([facility]) Arrhythmia Atrial fibrillation ([facility]) Atrial flutter ([facility]) Atrial flutter ([facility]) Benign prostatic hyperplasia BPH with urinary obstruction Cancer ([facility]) skin cancer Cataract Constipation Coronary artery disease Dental disease no teeth Diabetes mellitus ([facility]) Diabetes mellitus type 2, controlled ([facility]) Hypercholesterolemia Hypertension Myositis Peripheral neuropathy Rash Scalp wound Urinary incontinence Ventricular tachycardia ([facility]) Visual impairment glasses Past Surgical [...] 11/19/2018 Performed by Sage Jay MD at [facility] Coronary fractional flow reserve N/A 11/19/2018 Performed by Sage Jay MD at [facility] CYSTOSCOPY [facility] SOLUTION N/A 10/27/2021 Performed by Frederic Thorne MD at [facility] DC ICD RA lead replace - MDT N/A 07/21/2020 Performed by Yoni Espinoza MD at [facility] (EP) EP - Device DC ICD Left 11/20/2018 Performed by Shayna Betancourt MD at [facility] (EP) EP - Diagnostic-- EP study Right 11/16/2018 Performed by Rafita Garcia MD at [facility] (EP) INJECTION BLOCK NERVE MEDIAL BRANCH: bilat L 4/, 10/31 Bilateral 05/03/2024 Performed by Alber Hyde MD at [facility] Loop recorder implant N/A 11/16/2018 Performed by Rafita Garcia MD at [facility] (EP) Loop recorder removal N/A 07/21/2020 Performed by Yoni Espinoza MD at [facility] (EP) SKIN CANCER EXCISION No Known [...] Interpersonal Safety: Unknown (08/24/2023) Received from [facility] [place] Safety & Environment Fear of [...] Benavides 05/23/24 1347 [facility]24 Miscellaneous Notes Last OV 03/08/23. Letter sent to pt 02/23. Attempted to call pt, no VM box set up. Letter sent. Pt will need appointment for future refills. documented in this encounter [facility] 05-23-2024 Telephone encounter Note Last OV 03/08/23. Letter sent to pt 02/23. Attempted to call pt, no VM box set up. Letter sent. Pt will need appointment for future refills. [facility] 04-09-2024 History of Present illness Narrative [facility] [address] [place] [address] Patient: Tomas Frausto Sex: male : 1955 [...] 11/19/2018 Performed by Sage Jay MD at [facility] Coronary fractional flow reserve N/A 11/19/2018 Performed by Sage Jay MD at [facility] CYSTOSCOPY [facility] SOLUTION N/A 10/27/2021 Performed by Frederic Thorne MD at [facility] DC ICD RA lead replace - MDT N/A 07/21/2020 Performed by Yoni Espinoza MD at [facility] (EP) EP - Device DC ICD Left 11/20/2018 Performed by Shayna Betancourt MD at [facility] (EP) EP - Diagnostic-- EP study Right 11/16/2018 Performed by Rafita Garcia MD at [facility] (EP) Loop recorder implant N/A 11/16/2018 Performed by Rafita Garcia MD at [facility] (EP) Loop recorder removal N/A 07/21/2020 Performed by Yoni Espinoza MD at [facility] (EP) SKIN CANCER EXCISION No Known [...] Interpersonal Safety: Unknown (08/24/2023) Received from [facility] Safety & Environment Fear of [...] these patients; however, close collaboration with a consulting engineer or brick tosser is recommended before initiating the RFN procedure, therefore prior to RFA we will consult with patient's consulting engineer/brick tosser for approval and recommendations to proceed with [...] Benavides 04/11/24 1226 documented in this encounter [facility] 04-09-2024 Instructions Chuladarren Bonilla CNA - [...] nearest emergency room. [facility]-22-[facility]24 History of Present illness Narrative [facility] [address] [place] [address] Patient: Tomas Frausto Sex: male : 1955 Age: 68 y.o. PCP: [facility] Nathaniel 02/22/2024 Tomas Frausto is here for [...] mellitus (CMS-HCC) Diabetes mellitus type 2, controlled ([facility]) Hypercholesterolemia Hypertension Myositis Peripheral neuropathy Rash Scalp wound Urinary incontinence Ventricular tachycardia ([facility]) Visual impairment glasses Past Surgical History: Procedure [...] 11/19/2018 Performed by Sage Jay MD at [facility] Coronary fractional flow reserve N/A 11/19/2018 Performed by Sage Jay MD at [facility] CYSTOSCOPY [facility] SOLUTION N/A 10/27/2021 Performed by Frederic Thorne MD at [facility] DC ICD RA lead replace - MDT N/A 07/21/2020 Performed by Yoni Espinoza MD at [facility] (EP) EP - Device DC ICD Left 11/20/2018 Performed by Shayna Betancourt MD at [facility] (EP) EP - Diagnostic-- EP study Right 11/16/2018 Performed by Rafita Garcia MD at [facility] (EP) Loop recorder implant N/A 11/16/2018 Performed by Rafita Garcia MD at [facility] (EP) Loop recorder removal N/A 07/21/2020 Performed by Yoni Espinoza MD at [facility] (EP) SKIN CANCER EXCISION No Known [...] Interpersonal Safety: Unknown (08/24/2023) Received from [facility] Safety & Environment Fear of [...] Benavides 02/29/24 1218 documented in this encounter [facility] 02-21-2024 Miscellaneous Notes 02/21/24 Remember to arrange Mar 2024 annual offc appt. Please contact pt to arrange. documented in this encounter [facility] 02-21-2024 Miscellaneous Notes OV-03/08/2023 documented in this encounter [facility] 02-21-2024 Telephone encounter Note 02/21/24 Remember to arrange Mar 2024 annual offc appt. Please contact pt to arrange. [facility] 02-21-2024 Telephone encounter Note OV-03/08/2023 [facility] 01-17-2024 Miscellaneous Notes Martha Merlos RN states he is needing a prescription for Tramadol. She is requesting it as it was ordered while in the hospital because this has been effective for him. ( 50 mg every 8 hours ). 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 documented in this encounter [facility] 01-17-2024 Telephone encounter Note Tomas's Chelita RN states he is needing a prescription for Tramadol. She is requesting it as it was ordered while in the hospital because this has been effective for him. ( 50 mg every 8 hours ). 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 [facility] 01-11-2024 Miscellaneous Notes Patients friend came to window with request to get soma medication refilled. Provider stated we do not fill soma and friend instructed with information and to reach out pcp as they were the ones who provided patient with the rx. Friend verbalized understanding. documented in this encounter [facility] 01-11-2024 Telephone encounter Note Patients friend came to window with request to get soma medication refilled. Provider stated we do not fill soma and friend instructed with information and to reach out pcp as they were the ones who provided patient with the rx. Friend verbalized understanding. [facility] 01-09-2024 History of Present illness Narrative [facility] [address] [place] [address] Patient: Tomas Frausto Sex: male : 1955 Age: 68 y.o. PCP: [facility] Nathaniel 01/09/2024 Tomas Frausto is here for [...] Past Medical History: Diagnosis Date Angina pectoris ([facility]) Arrhythmia Atrial fibrillation ([facility]) Atrial flutter ([facility]) Atrial flutter ([facility]) Benign prostatic hyperplasia BPH with urinary obstruction Cancer ([facility]) skin cancer Cataract Constipation Coronary artery disease Dental disease no teeth Diabetes mellitus ([facility]) Diabetes mellitus type 2, controlled ([facility]) Hypercholesterolemia Hypertension Myositis Peripheral neuropathy Rash Scalp wound Urinary incontinence Ventricular tachycardia ([facility]) Visual impairment glasses Past Surgical [...] 11/19/2018 Performed by Sage Jay MD at [facility] Coronary fractional flow reserve N/A 11/19/2018 Performed by Sage Jay MD at [facility] CYSTOSCOPY [facility] SOLUTION N/A 10/27/2021 Performed by Frederic Thorne MD at [facility] DC ICD RA lead replace - MDT N/A 07/21/2020 Performed by Yoni Espinoza MD at [facility] (EP) EP - Device DC ICD Left 11/20/2018 Performed by Shayna Betancourt MD at [facility] (EP) EP - Diagnostic-- EP study Right 11/16/2018 Performed by Rafita Garcia MD at [facility] (EP) Loop recorder implant N/A 11/16/2018 Performed by Rafita Garcia MD at [facility] (EP) Loop recorder removal N/A 07/21/2020 Performed by Yoni Espinoza MD at [facility] () SKIN CANCER EXCISION No Known Allergies [...] Interpersonal Safety: Unknown (08/24/2023) Received from [facility] Safety & Environment Fear of [...] Scribed for and in the presence of EDWADR BENAVIDES by Chula Bonilla CNA. Provider Statement: I, EDWARD BENAVIDES, personally performed the services described in the documentation, as scribed by Chula Bonilla CNA in my presence, and it is both accurate and complete. Chula Bonilla CNA 01/09/24 1308 Chula Bonilla CNA 01/09/24 1323 EDWARD Benavides 01/11/24 0917 documented in this encounter [facility] 08-09-2022 Note PROCEDURE: XR FOOT L [...] DON Date: 2022-08-09 15:44 [facility] Evaluation note Diagnosis Enuresis- Primary Functional [...] Paroxysmal ventricular tachycardia [facility] Diagnosis Lumbar spondylolysis- Primary Lumbosacral spondylosis without myelopathy [facility] Diagnosis Atrial fibrillation, unspecified type (CMS-HCC)- Primary [facility] Diagnosis Ventricular tachycardia (CMS-HCC) Paroxysmal ventricular tachycardia Atrial fibrillation with RVR (CMS-HCC) V-tach (CMS-HCC) Paroxysmal ventricular tachycardia [facility] Diagnosis Lumbosacral spondylosis without myelopathy- Primary Disc displacement, lumbar Displacement of lumbar intervertebral disc without myelopathy Lumbar radiculopathy, chronic [facility]* Diagnosis Lumbosacral spondylosis without myelopathy- Primary Lumbosacral spondylosis without myelopathy- Primary Lumbosacral spondylosis without myelopathy [facility]* Diagnosis Enuresis- Primary Functional urinary incontinence BPH (benign prostatic hypertrophy) with urinary obstruction- Primary Hypertrophy of prostate with urinary obstruction and other lower urinary tract symptoms (LUTS) Benign prostatic hyperplasia with urinary obstruction- Primary Urinary retention- Primary Unspecified retention of urine Benign prostatic hyperplasia with urinary obstruction Lumbosacral spondylosis without myelopathy- Primary [facility] Diagnosis Enuresis- Primary Functional urinary incontinence BPH (benign prostatic hypertrophy) with urinary obstruction- Primary Hypertrophy of prostate with urinary obstruction and other lower urinary tract symptoms (LUTS) Benign prostatic hyperplasia with urinary obstruction- Primary Urinary retention- Primary Unspecified retention of urine Benign prostatic hyperplasia with urinary obstruction Ventricular tachycardia (CMS-HCC) Paroxysmal ventricular tachycardia Atrial fibrillation with RVR (CMS-HCC) V-tach ([facility]) Paroxysmal ventricular tachycardia [facility] Diagnosis Enuresis- Primary Functional [...] Unspecified essential hypertension [facility] Diagnosis Enuresis- Primary Functional urinary incontinence BPH (benign prostatic hypertrophy) with urinary obstruction- Primary Hypertrophy of prostate with urinary obstruction and other lower urinary tract symptoms (LUTS) Benign prostatic hyperplasia with urinary obstruction- Primary Urinary retention- Primary Unspecified retention of urine Benign prostatic hyperplasia with urinary obstruction AICD present, double chamber- [employer]- Primary [facility] Diagnosis Enuresis- Primary Functional urinary incontinence BPH (benign prostatic hypertrophy) with urinary obstruction- Primary Hypertrophy of prostate with urinary obstruction and other lower urinary tract symptoms (LUTS) Benign prostatic hyperplasia with urinary obstruction- Primary Urinary retention- Primary Unspecified retention of urine Benign prostatic hyperplasia with urinary obstruction Critical limb ischemia of left lower extremity with gangrene ([facility])- Primary PVD (peripheral vascular disease) Unspecified peripheral vascular disease [facility] Diagnosis Acute pain of right knee- Primary Arthritis of right knee Effusion of right knee documented in this encounter [facility]* Diagnosis Paronychia of great toe of right foot- Primary Angiopathy, diabetic ([facility]) Type II or unspecified type diabetes mellitus with peripheral circulatory disorders, not stated as uncontrolled Diabetic polyneuropathy associated with type 2 diabetes mellitus ([facility]) Status post partial amputation of left foot ([facility]) documented in this encounter [facility]* Diagnosis Enuresis- Primary Functional [...] gangrene (CMS-HCC)- Primary [facility] note[facility] assessment information available [facility] Work Phone: Evaluation note* Diagnosis Enuresis- Primary Functional urinary incontinence BPH (benign prostatic hypertrophy) with urinary obstruction- Primary Hypertrophy of prostate with urinary obstruction and other lower urinary tract symptoms (LUTS) Benign prostatic hyperplasia with urinary obstruction- Primary Urinary retention- Primary Unspecified retention of urine Benign prostatic hyperplasia with urinary obstruction Critical limb ischemia of left lower extremity with gangrene ([facility])- Primary PVD (peripheral vascular disease) Unspecified peripheral vascular disease Critical limb ischemia of left lower extremity with gangrene ([facility])- Primary Atrial fibrillation, unspecified type ([facility]) documented [facility] encounter [facility]* Diagnosis Dermatophytosis of nail- Primary Dystrophic nail Other specified disease of nail Status post partial amputation of left foot (HCC) Angiopathy, diabetic (HCC) Type II or unspecified type diabetes mellitus with peripheral circulatory disorders, not stated as uncontrolled Diabetic polyneuropathy associated with type 2 diabetes mellitus (HCC) documented in this encounter [facility]* Diagnosis Diabetic ulcer of toe associated with type 2 diabetes mellitus, with fat layer exposed, unspecified laterality (HCC)- Primary Status post partial amputation of left foot (HCC) Angiopathy, diabetic (HCC) Type II or unspecified type diabetes mellitus with peripheral circulatory disorders, not stated as uncontrolled Diabetic polyneuropathy associated with type 2 diabetes mellitus (HCC) documented in this encounter [facility] HealthcareInstructionsNot on filedocumented in this [facility] filedocumented in this [facility] filedocumented in this [facility] InstructionsNot on filedocumented in this [facility] InstructionsNot on filedocumented in this [facility] InstructionsNot on filedocumented in this [facility] InstructionsNot on filedocumented in this [facility] InstructionsNot on filedocumented in this [facility] InstructionsNot on filedocumented in this [facility] InstructionsNot on filedocumented in this [facility] InstructionsNot on filedocumented in this [facility] Summary Purpose Family History [...] contrast Bebeto Romano PA [address] [address] [facility] [address] [place] [address] Phone: [phone] Referral ID Status Reason Start Date Expiration Date V isits Requested Visits Authorized [id number] Pending Review 02/22/2024 02/21/2025 1 1 Specialty Diagnoses / Procedures Referred By Contac t Referred To Contact Diagnoses Lumbosacral spondylosis without myelopathy Procedures Case request operating room: INJECTION BLOCK NERVE MEDIAL BRANCH: bilat L45 51 Bebeto Romano PA [address], [address] [place] [id number] Referral ID Status Reason Start Date Expiration Date V isits Requested Visits Authorized [id number] Pending Review 04/09/2024 04/09/2025 1 1 Additional Source Comments (unrecognized sect ion and content) No Status Records FoundNo Status Records FoundNo Status Records FoundNo Status Records FoundNo Status Records FoundNo Status Records Found INFORMATION SOURCE (unrecogn ized section and content) DATE CREATED AUTHOR 11/16/2022 [facility] DATE CREATED AUTHOR AUTHOR'S ORGANIZ ATION 09/28/2024 [facility] DATE CREATED AUTHOR AUTHOR'S ORGANIZ ATION 10/12/2024 [facility] DATE CREATED AUTHOR AUTHOR'S ORGANIZ ATION 11/20/2024 [facility] DATE CREATED AUTHOR AUTHOR'S ORGANIZ ATION 02/15/2025 [facility] DATE CREATED AUTHOR AUTHOR'S ORGANIZ ATION 03/13/2025 [facility] EPIC Reason for Visit [...] (peripheral vascular disease) Mariana Gutiérrez, DPEdvin [address] [place] [address] Phone: tel: fax: [facility] Vascular Surgery [facility] [address] [place] [address] Phone: tel:[phone] fax: Referral ID Status Reason Start Date Expiration Date Visits Requested Visits Authorized [id number] Pending Review Specialty Services Required 08/28/2024 08/28/2025 1 1 Reason Comments Pain Reason Comments Toe Pain Tomas Starksolitario 69yo New Patient last seen 07/12/2021. Patient is diabetic. Concerns of Right great toenail infection, patient relates drainage, thick and painful. Patient is seeing wound care in [place] for possible partial amputation of left foot, due to non-healing after amputation surgery 3 years ago, in [place]. Currently taking cephalexin for left foot infection. [...] Care Teams (unrecognized sec tion and content) Rn Travel Relationship Specialty Start Date End Date Services, [facility] [address] [place], [place] PCP - General Family Medicine 04/16/24 Rn Travel Relationship Specialty Start Date End Date Services, [facility] [address] [place] PCP - General Family Medicine 12/26/23 Rn Travel Relationship Specialty Start Date End Date Services, [facility] [address] [place] PCP - General Family Medicine 12/26/23 Rn Travel Relationship Specialty Start Date End Date Services, [facility] [address] [place] PCP - General Family Medicine 12/26/23 Rn Travel Relationship Specialty Start Date End Date Services, [facility] [address] [place] PCP - General Family Medicine 12/26/23 Rn Travel Relationship Specialty Start Date End Date Services, [facility] [address] [place] PCP - General Family Medicine 12/26/23 Rn Travel Relationship Specialty Start Date End Date Services, [facility] [address] [place], [place] PCP - General Family Medicine 12/26/23 Rn Travel Relationship Specialty Start Date End Date Services, [facility] [address] [place], [place] PCP - General Family Medicine 04/16/24 Rn Travel Relationship Specialty Start Date End Date Services, [facility] [address] [place], [place] PCP - General Family Medicine 04/16/24 Rn Travel Relationship Specialty Start Date End Date Services, [facility] [address] [place], [place] PCP - General Family Medicine 04/16/24 Rn Travel Relationship Specialty Start Date End Date Services, [facility] [address] [place] PCP - General Family Medicine 04/16/24 Rn Travel Relationship Specialty Start Date End Date Services, [facility] [address] [place], [place] PCP - General Family Medicine 04/16/24 Rn Travel Relationship Specialty Start Date End Date Services, [facility] [address] [place], [place] PCP - General Family Medicine 04/16/24 Rn Travel Relationship Specialty Start Date End Date Bradley Bejarano PA [address] [place] [address] PCP - General Family Medicine 10/02/24 Rn Travel Relationship Specialty Start Date End Date Bradley Bejarano PA [address] [place] [address] PCP - General Family Medicine 10/02/24 Rn Travel Relationship Specialty Start Date End Date Bradley Bejarano PA [address] [place] [address] PCP - General Family Medicine 10/02/24 Rn Travel Relationship Specialty Start Date End Date Bradley Bejarano PA [address] [place] [address] PCP - General Family Medicine 10/02/24 Rn Travel Relationship Specialty Start Date End Date [facility] [address] [place], [place] PCP - General Family Medicine 04/16/24 Team Status: Inactive Member Role Status Zonia Gutiérrez DPM MS Attending Provider Active Start: November 12, 2024 End: November 12, 2024 Rn Travel Relationship Specialty Start Date End Date [facility] [address] [place] PCP - General Family Medicine 04/16/24 Rn Travel Relationship Specialty Start Date End Date Bradley Bejarano PA [address] [place] [address] PCP - General Family Medicine 10/02/24 Rn Travel Relationship Specialty Start Date End Date Bradley Bejarano PA [address] [place] [address] PCP - General Family Medicine 10/02/24 Rn Travel Relationship Specialty Start Date End Date Bradley Bejarano PA [address] [place] [address] PCP - General Family Medicine 10/02/24 Rn Travel Relationship Specialty Start Date End Date Bradley Bejarano PA [address] [place] [address] PCP - General Family Medicine 10/02/24 Goals [...] BE BASED ON THE PRIMARY CLINICAL RECORDS. [employer] provides no warranty or guarantee of the accuracy or completeness of information in this document.
--- OUTSIDE RECORDS SUMMARY | 2025-04-16 09:15 | XMS_ITS | Encounter Summary ---
[id number] [address] [place] [address] Care Team Providers Care Cashier Self Service Gasoline Name Role Phone Services, [facility] Primary Care Provider Encounter Details Date Type Department Care Team (Late st Contact Info) Description 03/09/2023 Orders Only [facility] [address] [place] [id number] Yoni Espinoza MD [address] [place] [address] Ventricular tachycardia ([facility]) Social History Tobacco Use Types Packs/Day [...] hospital to home General Yes Laurie Villar, PARTS COUNTERMAN-CABLE SUPERVISOR Note: Evaluation of progress towards goal: discharge home with confucianism/friends support. <enter goal here> General Yes Sunita Tomlinson, ALANIS Note: Evaluation of progress towards goal: plan home self care SNF General Yes Cathryn Kapadia, MANAGER HOME Note: Evaluation of progress towards goal: Patient likely will discharge to a SNF documented as of this encounter Procedures Procedure Name Priority Date/Time Associated Diagnosis Comments DEVICE INTERROGATION Routine 03/08/2023 Ventricular tachycardia ([facility]) documented in this encounter Results * Device Interrogation (03/08/2023) Anatomical Region Laterality Modality Other us Yoni Espinoza MD [facility] ORDERABLES Final Result documented in this encounter Visit Diagnoses Diagnosis Ventricular tachycardia ([facility]) Paroxysmal ventricular tachycardia documented in this encounter Care Teams Cashier Self Service Gasoline Relationship Specialty Start Date End Date Services, [facility] [address], [place] PCP - General Family Medicine 04/16/24 documented as of this encounter
== END 2025-04-16 09:11 | disposition home or self-care (01) ==
LOC: WC 09:10
PROVIDERS: Visit Provider Physician Assistant
DX: L97.322 Non-pressure chronic ulcer of left ankle with fat layer exposed (principal); E11.621 Type 2 diabetes mellitus with foot ulcer; L97.412 Non-pressure chronic ulcer of right heel and midfoot with fat layer exposed; L97.515 Non-pressure chronic ulcer of other part of right foot with muscle involvement without evidence of necrosis
CPT/HCPCS: G0463

== ENCOUNTER 2025-04-30 09:17 | Outpatient (OUT) | payer MEDICARE, MEDICAID, SELFPAY ==
--- OUTSIDE RECORDS SUMMARY | 2025-04-16 15:30 | XMS_ITS | Encounter Summary ---
Author Organization [facility] Address [address] [place] [address] Care Team Providers Care Salesperson [employer] Name Role Phone Bradley Bejarano Primary Care Provider [phone] Reason for Visit * ReasonCommentsShoe Abida Frausto is a 69 y.o. male who presents for DM Foot Care. PCP: Bradley Bejarano 12/2024, A1C: n/a,BS: 130. 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) Social History Tobacco UseTypesPacks/DayYears UsedDateSmoking Tobacco: [id number] Smokeless Tobacco: NeverAlcohol UseStandard Drinks/WeekCommentsNot Currently0 (1 standard drink = 0.6 oz pure alcohol)Sex and Gender InformationValueDate RecordedSex Assigned at BirthNot on fileLegal GpkWwfk5709/14/2022 6:59 PM EDT Gender IdentityNot on fileSexual OrientationNot on filedocumented as of this encounter Last Filed Vital Signs Vital SignReadingTime TakenCommentsBlood Pressure--Pulse--Temperature-- Respiratory Rate--Oxygen Saturation--Inhaled Oxygen Concentration--Bswtov12.6 kg (180 lb)04/16/2025 3:38 PM WHWSjuhsl119.3 cm (5' 9 )04/16/2025 3:38 PM EDTBody Mass Index26.5810 3:38 PM EDTdocumented in this encounter Progress Notes * Robert Guzman, NIKKI - 04/16/2025 3:30 PM EDT Images from the original note were not included. Subjective Patient ID: Celio Frausto is a 69 y.o. male who presents for Shoe Measure (Celio Frausto is a 69 y.o. male who presents for DM Foot Care. PCP: Bradley MONTESINOS 12/2024, A1C: n/a, BS: 130. ). HPI Presents for measurements, impressions and tracings; stating intention to proceed with therapeutic footwear and accommodative orthoses. Reports progressive healing of all wounds. Patient is status post TMA left foot (October 2024, Dr. Solomon). Risk profile: Type II diabetes. Diabetic peripheral [...] lesion sub sesamoid and 5th metatarsal condyle; non-inflamed,without ulcerative changes. HYPERKERATOSIS: Mild hyperkeratosis along the [...] lesion dorsal-medial surface of the IP joint. Thewound site appears dry, non-inflamed, well adhered eschar [...] or malodor. The site is non-tender, non-inflamed, non- fluctuant with no clinical signs of infection or ischemia. SKIN PATHOLOGY:texture, turgor, hair growth, within normal limits.. Orthopedic: JOINT RANGE OF MOTION: ankle joint and subtalar joint ROM are normal and pain free. DEFORMITIES: Left foot: Status post TMA (October 2024). MUSCLE STRENGTH: Generalized lower extremity weakness with no focal deficits. Radiology: Assessment/Plan Multiple shallow ulcerations bilateral; various stages of effective healing. 2. Type II diabetes. 3. Diabetic peripheral neuropathy (Q9). 4. Diabetic peripheral vasculopathy (Q8). 5. Status post TMA left (October of 2024). (Q7). 6. History of DVT right lower extremity; currently on Xarelto and ASA therapy. Plan: Stable condition. Indications for therapeutic footwear and accommodative orthoses: As noted above. Accommodate forefoot and digital deformities of the right foot. Offloading of forefoot and digital deformities of the right foot; dispersion of peak plantar pressures bilateral; reducing the potential for skin breakdown, neuropathic and/or vasculopathic ulceration and related complications. Accommodate swelling as indicated. Allow patient to maintain ADLs and walking activity, minimizing risk profile. Measurements of the right foot obtained in the weight-bearing position, utilizing [employer] device. Foam impressions and tracings of the left foot simulated weight-bearing. Documentation and Rx complete. Review of goals, objectives and rationale. Follow up: For fitting Procedure: This note was created with the assistance of a speech recognition program. While intending to generate a timely document that accurately reflects the content of the visit, no guarantee can be provided that every grammatical or spelling mistake has been or will be identified or corrected. Thank you for your understanding. Robert Guzman DPM documented in this encounter Plan of Treatment DateTypeDepartmentCare Team (Latest Contact Info)Dodubdmgepl48/03/2025 2:15 PM ESTProcedure Visit [facility] [address] [place] [phone] Robert Guzman DPM [address] [place], [place] [id number] documented as of this encounter Visit Diagnoses Diagnosis Status post partial amputation of left foot (HCC)- Primary Angiopathy, diabetic (HCC) Type II or unspecified type diabetes mellitus with peripheral circulatory disorders, not stated as uncontrolled Diabetic polyneuropathy associated with type 2 diabetes mellitus (HCC) 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
--- OUTSIDE RECORDS SUMMARY | 2025-04-30 09:20 | XMS_ITS | Clinical Summary ---
Author Organization [facility] Address [id number] [address] [place] [address] Care Team Providers Care [employer] Systems Worker Name Role Phone Services, [facility] Primary Care Provider Allergies No known active allergies Medications MedicationSigDispense QuantityRefillsLast FilledStart DateEnd DateStatus EASY TOUCH 31 gauge x 5/16 needle 01/20/2018Active metFORMIN XR (GLUCOPHAGE-XR) 500 mg 24 hr tablet Take 2 tablets (1,000 mg total) by mouth in the morning and 2 tablets (1,000 mg total) before bedtime.01/23/2018Active aspirin 81 mg Take 1 tablet (81 mg total) by mouth in the morning.Active sertraline (ZOLOFT) 50 mg tablet Take 1 tablet (50 mg total) by mouth in the morning.Active empagliflozin (JARDIANCE) 25 mg tablet tablet Take 1 tablet (25 mg total) by mouth in the morning.Active acetaminophen (TYLENOL ARTHRITIS) 650 mg 8 hr tablet Take 1 tablet (650 mg total) by mouth every 8 (eight) hours as needed for pain. Active metoprolol succinate XL (TOPROL XL) 100 mg 24 hr tablet Indications:Ventricular tachycardia (CMS-HCC),Atrial fibrillation with RVR (CMS-HCC),V-tach (CMS-HCC)TAKE 1 TABLET (100 MG TOTAL) BY MOUTH IN THE MORNING 90 tablet 5Active amiodarone (PACERONE) 200 mg tablet Take 1 tablet (200 mg total) by mouth in the morning. 90 tablet 5Active atorvastatin (LIPITOR) 20 mg tablet Take 1 tablet (20 mg total) by mouth in the morning.5Active XARELTO 20 mg tablet tablet Indications:Atrial fibrillation, unspecified type (CMS-HCC)TAKE 1 TABLET (20 MG TOTAL) BY MOUTH IN THE MORNING 90 tablet 5Active Active Problems ProblemNoted DateDiagnosed DateCritical limb ischemia of left lower extremity with sxurscjt83/27/2025 Assessment & Plan (10/10/2024 11:08 AM EDT): PVR. Continue best medical therapy with aspirin and statin. Assessment & Plan (09/26/2024 9:53 AM EDT): Left lower extremity angiogram and intervention Lumbosacral spondylosis without taqxpwyrwn49/08/2024egenerative changes of anterior chamber angle11/17/2021iabetic autonomic ndmiuyzacz25/18/2022iabetic renal ohilvqb3011/17/2021Essential kjjpuwyygdfo72/18/0411Lzngfbqbhazosk67/18/2022 Lower urinary tract symptoms due to benign prostatic rzjunuokgjt80/18/2022 Wygxgbxlwtrzm56/18/2022ngina /18/2022Non-healing surgical wound 10/01/2021Hematuria, gross09/15/2021 Overview (09/15/2021): ==== 09/15/2021 ==== hospitalize for gangrenous toe. Status post toe amp x2. Is on Xarelto. Did havea negative urine culture with gross hematuria. Negative CT urogram. Cytology was negatvie PLAN: cystoscopy. 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 Patient did have some urinary retention of 406 cc and then down to 179.Obtain renal bladder ultrasound as well. CMG flow study. Encounters DateTypeDepartmentCare NwcsCwkhntahuxh35/14/2025Travelfrom Last 3 Months Immunizations ImmunizationAdministration DatesNext DueInfluenza (IM) Preservative Free 05/10/2017,03/25/2015Influenza, Im Trivalent Fiwcaptlcjdy35/14/2014Influenza, Injectable, Mdck, Preservative Free, Quad05/18/2018Influenza, Injectable, quadrivalent (PF)04/19/2021 Family History Medical HistoryRelationNameCommentsCOPDFatherEarly deathFatherDiabetesMother RelationNameStatusCommentsFatherDeceasedMotherDeceased Social History Tobacco UseTypesPacks/DayYears UsedDateSmoking Tobacco: FormerCigarettes Smokeless Tobacco: Never Tobacco Cessation:Counseling Given: Not Answered Alcohol UseStandard Drinks/WeekCommentsNo0 (1 standard drink = 0.6 oz pure alcohol)ChildcareAnswerDate HpyrgqdvIqgcilnabOgqmbia58/03/2019EmploymentAnswer Date DngshtnlIlstelmptpWychodg29/03/2019Hunger ScreeningAnswerDate Recorded Within the past 12 months we worried whether our food would run out before we got money to buy more.Never True10/10/2024Within the past 12 months the food we bought just didn't last and we didn't have money to get more.Never True 10/10/2024Purpose - LifeAnswerDate RecordedPurpose and direction in lifeUnknown 07/18/2020ex and Gender InformationValueDate RecordedSex Assigned at BirthNot on fileLegal LydEvbo7902/05/2015 11:39 AM EDTGender IdentityNot on fileSexual OrientationNot on file Last Filed Vital Signs Vital SignReadingTime TakenCommentsBlood Kcyhumvk559/7911/14/2024 2:30 AM EDT Whlkx200411/14/2024 2:30 AM KRYOttdzjnrjtv18.8 ??C (98.3 ??F)11/14/2024 12:17 AM EDTRespiratory Tebm1052 2:30 AM EDTOxygen Mqzpseakqb92%11/14/2024 2:30 AM EDTInhaled Oxygen Concentration--Zzwohc84.6 kg (180 lb)11/04/2024 7:20 AM EDT Ffokvi707.3 cm (5' 9 )11/04/2024 7:20 AM EDTBody Mass Index26.58011/04/2024 7:20 AM EDT Plan of Treatment DateTypeDepartmentCare Team (Latest Contact Info)Smrxlafzxkb56/13/2026 2:30 PM ESTOffice Visit [facility] [address] [place] [address] [place] [address] [place] [address] Rickey Segovia MD [address] [place] [address] Health MaintenanceDue DateLast DoneCommentsDiabetic Ophthalmology Exam1954 Depression Uqiqeoqmz05/19/1966Adult BMI Follow Up Plan1972Diabetic Foot Exam1972DTaP,Tdap and Td Vaccines (1 - Tdap)1973Zoster (Shingles) Vaccine (1 of 2)2004Fall Risk Unwdomooj98/19/2019COVID-19 Vaccine (4 - 2024- season)/10/2020, 10/01/2020, 09/03/2020Influenza Vaccine /04/2023, 04/25/2022, 04/19/2021, Additional history existsAdult BMI Hwpsrajdi66/10/2024Tobacco Ptmfqkqzy25/bdominal Aortic Aneurysm (AAA) AqmcisHvvxqzxxi73/02/2025 Goals GoalPatient Goal TypeAssociated ProblemsRecent ProgressPatient-Stated?Author safe transition from hospital to home Laurie Pascal, HOSPITAL SECRETARY-NETWORK AND THREAT SUPPORT SPECIALIST Note: Evaluation of progress towards goal: discharge home with uatsdin/friends support. <enter goal here> Sunita Acevedo LSW Note: Evaluation of progress towards goal: plan home self care SNF Cathryn Subramanian LSW Note: Evaluation of progress towards goal: Patient likely will discharge to a SNF Medical Devices ImplantedTypeAreaManufacturerDevice IdentifierShelf Expiration DateModel / Serial / LotLd Pcng 55cm Rv Sq Scr S Df-4 - [id number] - [id number] Implanted:Qty: 1 on 11/20/2018 [facility] LeadLeft: ChestMEDTRONIC CARD RHYTHM LOYFCEO48/12/[id number] / [id number] / Lead Capsure Fix Novus 5076-45 - [id number] - [id number] Implanted:Qty: 1 on 11/20/2018 [facility] LeadLeft: ChestMEDTRONIC [place]09/17/[id number] / [id number] / Lead Capsure Fix Novus 5076-52 - [id number] - [id number] Implanted:Qty: 1 on 07/21/2020 [facility] LeadLeft: ChestMEDTRONIC CARD RHYTHM RNOSFHB75/02/22155523-08 / [id number] / Dfbr Crd Evera Mri Xt Dr - [id number] - [id number] Implanted:Qty: 1 on 11/20/2018 by [facility]ourt [facility] ImplantLeft: ChestMEDTRONIC CARD RHYTHM NWKWSQH9702/14/[id number] / [id number] / ExplantedTypeAreaManufacturerDevice IdentifierShelf Expiration DateModel / Serial / LotSys Crd Rvl Linq Rpl [id number] - [id number] - [id number] Implanted:Qty: 1 on 11/16/2018 [facility] ImplantLeft: ChestMEDTRONIC CARD RHYTHM GATFFRB4610/15/2019LINQSYS / [id number] / Procedures Procedure NamePriorityDate/TimeAssociated DiagnosisCommentsMICROALBUMIN / CREATININE URINE WNGRJJynssuu36/14/2025 1:57 PM EDT Chronic kidney disease, stage 3b (CMS-HCC) BASIC METABOLIC YTNXWTrbssuc53/14/2025 1:57 PM EDT Chronic kidney disease, stage 3b (CMS-HCC) URIC KPGNOxlsery13/14/2025 1:57 PM EDT Chronic kidney disease, stage 3b (CMS-HCC) CBC (NO DIFF)Sxrehtz9602/13/2025 1:57 PM EDT Chronic kidney disease, stage 3b (CMS-HCC) PPFSYWMUYFgjesvd49/14/2025 1:57 PM EDT Chronic kidney disease, stage 3b (CMS-HCC) PMEMPFBLdkoqce57/14/2025 1:57 PM EDT Chronic kidney disease, stage 3b (CMS-HCC) VITAMIN D 25 WUTHDUMAekjpng81/14/2025 1:57 PM EDT Chronic kidney disease, stage 3b (CMS-HCC) PARATHYROID HORMOME, OMASNRAdduvdr22/14/2025 1:57 PM EDT Chronic kidney disease, stage 3b (CMS-HCC) WKFOFWDFLYDxlnqbl52/14/2025 1:57 PM EDT Chronic kidney disease, stage 3b (CMS-HCC) BJJTKGFBMIOspdmho65/14/2025 1:57 PM EDT Chronic kidney disease, stage 3b (CMS-HCC) ME INTERROGATION EVAL REMOTE </90 D 1/2/ASSISTANT OPERATOR LD LGTQvdyxkw93/04/2025 9:53 AM EDT US RETROPERITONEAL FSXNSSONIwjqxxw30/02/2025 10:08 AM EDT Stage 3b chronic kidney disease (CMS-HCC) from Last 3 Months or Most Recently Relevant to Health Maintenance Results * Parathyroid Hormone, intact (02/13/2025 1:57 PM EDT)ComponentValueRef Range Test MethodAnalysis TimePerformed AtPathologist SignaturePTH URXMUY1608 - 88 pg/mL02/13/2025 6:39 PM [facility] LABORATORYSpecimen (Source)Anatomical Location / LateralityCollection Method / VolumeCollection TimeReceived TimeBloodVenous blood / UnknownVenipuncture / Oldvgxr5302/13/2025 1:57 PM EDT02/13/2025 1:57 PM EDT Narrative Authorizing ProviderResult TypeResult StatusJuan Swain MDLAB BLOOD ORDERABLES Final ResultPerforming OrganizationAddressCity/State/ZIP CodePhone Number [facility] [address] [place] [address], * (ABNORMAL) Microalbumin - Albumin: Creatinine Urine Ratio (02/13/2025 1:57 PM EDT)ComponentValueRef RangeTest MethodAnalysis TimePerformed AtPathologist SignatureURINE CREATININE,RDM54.83mg/dL02/13/2025 6:40 PM [facility] LABORATORYMALB/CREAT VHQVN570.6(H)0.0 - 30.0 mg/g002/13/2025 6:40 PM EDT [facility] LABORATORYMICROALBUMIN, URINE9.9(H)0.0 - 1.9 mg/dL 02/13/2025 6:40 PM [facility] LABORATORYSpecimen (Source) Anatomical Location / LateralityCollection Method / VolumeCollection Time Received TimeUrineUrine specimen collection, clean catch / UnknownCollection / Erkuxen3302/13/2025 1:57 PM EDT02/13/2025 1:57 PM EDT Narrative Authorizing ProviderResult TypeResult StatusJuan Swain MDURINE ORDERABLES Final ResultPerforming OrganizationAddressCity/State/ZIP CodePhone Number [facility] [address] [place] [address], * Vitamin D 25 hydroxy (02/13/2025 1:57 PM EDT)ComponentValueRef RangeTest MethodAnalysis TimePerformed AtPathologist SignatureVITAMIN D 25 HYD TOT36.6 30.0 - 100.0 ng/mL02/13/2025 6:46 PM [facility] Specimen (Source)Anatomical Location / LateralityCollection Method / Volume Collection TimeReceived TimeBloodVenous blood / UnknownVenipuncture / Unknown 02/13/2025 1:57 PM EDT02/13/2025 1:57 PM EDT Narrative [facility] - 02/13/2025 6:46 PM EDT Vitamin D status 25 [place] Vitamin D Deficiency <20 ng/mL Insufficiency ? 20-29 ng/mL Sufficiency ? 30-100 ng/mL Toxicity >100 ng/mL NOTE: A pediatric reference range has not been established by the department store manager of this kit. The [place] [employer] recommends a Vitamin D level of = or >20ng/mL in infants and children. Authorizing ProviderResult TypeResult StatusJuan Swain MDLAB BLOOD ORDERABLES Final ResultPerforming OrganizationAddressCity/State/ZIP CodePhone Number [facility] [address] [place] [address], * (ABNORMAL) Urinalysis (02/13/2025 1:57 PM EDT)ComponentValueRef RangeTest MethodAnalysis TimePerformed AtPathologist SignatureCOLORYellowYellow 02/13/2025 6:24 PM [facility] LABORATORYTURBIDITYClearClear 02/13/2025 6:24 PM [facility] LABORATORYSPECIFIC GRAVITY1.031 1.003 - 1.6404002/13/2025 6:24 PM [facility] LABORATORYNITRITE Positive(A)Lmtmzinu86/14/2025 6:24 PM [facility] PH,URINE5.55.0 - 8.508 6:24 PM [facility] LEUKOCYTE ESTERASESmall(A)Zpmqxycw33/14/2025 6:24 PM [facility] LABORATORYComment:High Concentrations of Glucose May Decrease the Reactivity of the Dipstick Leukocyte Test Pad.PROTEINTrace(A)Negative 02/13/2025 6:24 PM [facility] LABORATORYKETONES (URINE) GehlmoujPhocgasz27/14/2025 6:24 PM [facility] UROBILINOGEN<1.1 eu/dL<1.1 eu/dL02/13/2025 6:24 PM [facility] LABORATORYBILIRUBIN (URINE)UdtbqcwvNcubrhnq79/14/2025 6:24 PM [facility] LABORATORYBLOOD/GUQNdfkdkyoVprbntuw57/14/2025 6:24 PM EDT [facility] LABOR[facility]ORYMUCOUSPresent(A)None02/13/2025 6:24 PM EDT [facility] LABORATORYR.B.CELLS30 - 5002/13/2025 6:24 PM [facility] LABORATORYW.B.CELLS9(H)0 - 6:24 PM [facility] LABORATORYGLUCOSE (URINE)>1000 mg/dL(A)Xingsjxk60/14/2025 6:24 PM [facility] LABORATORYSpecimen (Source)Anatomical Location / LateralityCollection Method / VolumeCollection TimeReceived Time UrineUrine / UnknownCollection / Lwutyzx1302/13/2025 1:57 PM EDT02/13/2025 1:57 PM EDT Narrative Authorizing ProviderResult TypeResult StatusJohn Chery Swain MDURINE ORDERABLES Final ResultPerforming OrganizationAddressCity/State/ZIP CodePhone Number [facility] [address] [place] [address], * (ABNORMAL) CBC without diff (02/13/2025 1:57 PM EDT)ComponentValueRef Range Test MethodAnalysis TimePerformed AtPathologist SignatureWBC6.34 - 11 x10E9/L 02/13/2025 6:10 PM [facility] LABORATORYRBC Count4.294.1 - 5.7 X10E12/L02/13/2025 6:10 PM [facility] Psqacisgls66.6(L)13 - 17 g/dL02/13/2025 6:10 PM [facility] RYPMEFDEZFXhauthsdnj50.1(L)39 - 50 %02/13/2025 6:10 PM [facility] JPHSKAQGYWDIH8467 - 100 fL02/13/2025 6:10 PM [facility] EOYVUXOGHDZEK41.027 - 34 pg02/13/2025 6:10 PM [facility] MCMZETFJLBKVJJ45.232 - 36 g/dL02/13/2025 6:10 PM [facility] EBHEAAWKKHMIQ82.2(H)11.5 - 15 %02/13/2025 6:10 PM [facility] LABORATORYPlatelet Cdmzk880232 - 450 X10E9/L02/13/2025 6:10 PM EDT [facility] LABOR[facility]ORYMPV8.07 - 12 fL02/13/2025 6:10 PM [facility] LABORATORYSpecimen (Source)Anatomical Location / Laterality Collection Method / VolumeCollection TimeReceived TimeBloodVenous blood / UnknownVenipuncture / Pmjkmdz3702/13/2025 1:57 PM EDT02/13/2025 1:57 PM EDT Narrative Authorizing ProviderResult TypeResult StatusJuan JIMENES BLOOD ORDERABLES Final ResultPerforming OrganizationAddressCity/State/ZIP CodePhone Number [facility] [address] [place] [address], * Uric acid (02/13/2025 1:57 PM EDT)ComponentValueRef RangeTest MethodAnalysis TimePerformed AtPathologist SignatureURIC ACID6.22.6 - 7.2 mg/dL02/13/2025 6:30 PM [facility] LABORATORYSpecimen (Source)Anatomical Location / LateralityCollection Method / VolumeCollection TimeReceived Time BloodVenous blood / UnknownVenipuncture / Vejvnfa2502/13/2025 1:57 PM EDT 02/13/2025 1:57 PM EDT Narrative Authorizing ProviderResult TypeResult StatusJuan JIMENES BLOOD ORDERABLES Final ResultPerforming OrganizationAddressCity/State/ZIP CodePhone Number [facility] [address] [place] [address], * Phosphorus (02/13/2025 1:57 PM EDT)ComponentValueRef RangeTest MethodAnalysis TimePerformed AtPathologist SignaturePHOSPHORUS3.52.4 - 4.9 mg/dL02/13/2025 6:30 PM [facility] LABORATORYSpecimen (Source)Anatomical Location / LateralityCollection Method / VolumeCollection TimeReceived Time BloodVenous blood / UnknownVenipuncture / Ikkjdni2802/13/2025 1:57 PM EDT 02/13/2025 1:57 PM EDT Narrative Authorizing ProviderResult TypeResult StatusJuan JIMENES BLOOD ORDERABLES Final ResultPerforming OrganizationAddressCity/State/ZIP CodePhone Number [facility] [place] [address], * Magnesium (02/13/2025 1:57 PM EDT)ComponentValueRef RangeTest MethodAnalysis TimePerformed AtPathologist SignatureMAGNESIUM2.11.8 - 2.6 mg/dL02/13/2025 6:30 PM [facility] LABORATORYSpecimen (Source)Anatomical Location / LateralityCollection Method / VolumeCollection TimeReceived Time BloodVenous blood / UnknownVenipuncture / Pjdagbj1802/13/2025 1:57 PM EDT 02/13/2025 1:57 PM EDT Narrative Authorizing ProviderResult TypeResult StatusJuan JIMENES BLOOD ORDERABLES Final ResultPerforming OrganizationAddressCity/State/ZIP CodePhone Number [facility] [address] [place] [address], * Albumin (02/13/2025 1:57 PM EDT)ComponentValueRef RangeTest MethodAnalysis TimePerformed AtPathologist SignatureALBUMIN4.23.2 - 5.3 g/dL02/13/2025 6:30 PM [facility]ATORYSpecimen (Source)Anatomical Location / LateralityCollection Method / VolumeCollection TimeReceived TimeBloodVenous blood / UnknownVenipuncture / Aidjdyb9302/13/2025 1:57 PM EDT02/13/2025 1:57 PM EDT Narrative Authorizing ProviderResult TypeResult StatusJuan JIMENES BLOOD ORDERABLES Final ResultPerforming OrganizationAddressCity/State/ZIP CodePhone Number [facility] [address] [place] [address], * (ABNORMAL) Basic Metabolic Panel (02/13/2025 1:57 PM EDT)ComponentValueRef RangeTest MethodAnalysis TimePerformed AtPathologist TfgujxwiwDXJWWH786255 - 146 mmol/L02/13/2025 6:30 PM [facility] LABORATORYPOTASSIUM 4.63.5 - 5.0 mmol/L02/13/2025 6:30 PM [facility] JYAOPKRO7221 - 109 mmol/L02/13/2025 6:30 PM [facility] LABORATORYCARBON BCFCHTX7050 - 32 mmol/L02/13/2025 6:30 PM [facility] LABORATORYANION FSS424 - 15 mmol/L02/13/2025 6:30 PM [facility] LABORATORYBLOOD UREA CIFYCFLN447 - 27 mg/dL02/13/2025 6:30 PM [facility] LABORATORYCREATININE1.300.60 - 1.30 mg/dL 02/13/2025 6:30 PM [facility] LABORATORYComment:METHOD TRACEABLE TO IDMS LIJFRLHGPJUDXEF987(H)65 - 99 mg/dL02/13/2025 6:30 PM EDT [facility] LABORATORYCALCIUM9.18.5 - 10.5 mg/dL02/13/2025 6:30 PM [facility]ORYEGFR Non-Race Mdeopphia44(L)>=60 ml/min/1.73sq.m002/13/2025 6:30 PM [facility] Comment: Reported eGFR is based on the CKD-EPI 2020 equation that does not use a race coefficient. Specimen (Source)Anatomical Location / LateralityCollection Method / Volume Collection TimeReceived TimeBloodVenous blood / UnknownVenipuncture / Unknown 02/13/2025 1:57 PM EDT02/13/2025 1:57 PM EDT Narrative Authorizing ProviderResult TypeResult StatusJuan JIMENES BLOOD ORDERABLES Final ResultPerforming OrganizationAddressCity/State/ZIP CodePhone Number [facility] [address] [place] [address], [place] [phone] * Remote Device Check (02/03/2025 9:53 AM EDT)Anatomical RegionLaterality ModalityOtherSpecimen (Source)Anatomical Location / LateralityCollection Method / VolumeCollection TimeReceived Time02/03/2025 9:53 AM EDT Narrative Authorizing ProviderResult TypeResult StatusMuhamgreg Haskins MDHEALTH MAINTENANCEFinal Result * Ultrasound retroperitoneal complete (01/01/2025 10:08 AM EDT)Anatomical Region LateralityModalityBodyUltrasoundSpecimen (Source)Anatomical Location / LateralityCollection Method / VolumeCollection TimeReceived Time01/06/2025 2:06 PM EDT Narrative 01/06/2025 2:08 PM EDT HISTORY: A 69-year-old male with a history of the stage III chronic renal disease. TECHNIQUE: ??Multiple real-time images of both kidneys and the urinary bladder are obtained. Color Doppler study is performed. COMPARISON: ??Comparison is made with prior renal ultrasound examination of 08/12/[address] urogram of the 08/15/2021. FINDINGS: ??Both kidneys are normal in position and configuration. ??Right kidney measures 10.9 x 4.3 x 4.6 Cms. ??Right renal cortical thickness measures 0.7 Cms . ??Left kidney measures 11.5 x 3.4 x 4.3 ??Cms. ??Left renal cortical thickness measures 0.9 Cms. There is no evidence of hydronephrosis in the either kidney. Renal cortical echoes are within normal limits. ??No evidence of cystic or solid renal mass. Prevoid urinary bladder volume is 491 mL. ??Bilateral ureteric jets are visualized. ??No intraluminal abnormality seen. IMPRESSION: * ?? No evidence of echogenic calculi or hydronephrosis in the either kidney. * ??No evidence of cystic or solid renal mass. * ??Urinary bladder is unremarkable. Finalized by Kali Luevano [...] Kali Luevano MD on 01/06/2025 2:08 PM Authorizing ProviderResult TypeResult StatusJuan Swain [facility] ORDERABLES Final Result from Last 3 Months or Most Recently Relevant to Health Maintenance Insurance Advance Directives * Full Code (Latest Code Status on File) Date ActivatedDate InactivatedComments08/10/2021 3:58 AM08/16/2021 6:41 PM * Full Code Date ActivatedDate InactivatedComments12/16/2019 11:02 AM12/17/2019 5:52 PM * Full Code Date ActivatedDate InactivatedComments11/14/2018 8:21 PM11/21/2018 9:34 PM * Full Code Date ActivatedDate InactivatedComments11/23/2017 1:57 PM11/23/2017 5:15 PM Care Teams Team MemberRelationshipSpecialtyStart DateEnd [facility], [place] [address] [facility] [place], [place] [facility]04/16/24
--- OUTSIDE RECORDS SUMMARY | 2025-04-30 09:21 | XMS_ITS | Clinical Summary ---
Author Organization [facility] Address [address] [place] [address] Care Team Providers Care Adult Parole Officer Name Role Phone Bradley Bejarano Primary Care Provider Allergies No known active allergies Medications MedicationSigDispense QuantityRefillsLast FilledStart DateEnd DateStatus Xarelto 20 MG tablet Take 20 mg by mouth Daily4Active tamsulosin (Flomax) 0.4 MG 24 hr capsule Active metFORMIN XR (Glucophage-XR) 500 MG 24 hr tablet Take 1,000 mg by mouth in the morning and 1,000 mg before bedtime.Active Jardiance 25 MG 1 (one) time each day at the same timeActive atorvastatin (Lipitor) 20 MG tablet Take 20 mg by mouth in the morning.5Active aspirin 81 MG EC tablet Take 81 mg by mouth in the morning.Active metoprolol succinate XL (Toprol-XL) 100 MG 24 hr tablet Take 100 mg by mouth in the morning.5Active magnesium oxide (Mag-Ox) 400 MG tablet 5Active sertraline (Zoloft) 50 MG tablet Take 50 mg by mouth in the morning.Active amiodarone (Pacerone) 200 MG tablet Take 200 mg by mouth in the morning.5Active D3-1000 25 MCG (1000 UT) capsule Take 25 mcg by mouth Daily5Active cephalexin (Keflex) 500 MG capsule Take 500 mg by mouth in the morning and 500 mg at noon and 500 mg in the evening and 500 mg before bedtime.Active Active Problems No known active problems Encounters DateTypeDepartmentCare XjhpLmqdstlrefm76/15/2025 3:30 PM EDTOffice Visit [facility] [address] [place] [address] Robert Guzman DPM 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); Angiopathy, diabetic (HCC); Diabetic polyneuropathy associated with type 2 diabetes mellitus (HCC); 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)04/16/2025 Bamboo flowsheet [facility] [address] [place] [address] Robert Guzman DPM 04/16/20256788Awwlwi50/09/2025 2:15 PM EDTOffice Visit [facility] [address] [place] [address] Robert Guzman DPM Diabetic ulcer of toe associated with type 2 diabetes mellitus, with fat layer exposed, unspecifiedlaterality (HCC) (Primary Dx); Status post partial amputation of left foot (HCC); Angiopathy, diabetic (HCC); Diabetic polyneuropathy associated with type 2 diabetes mellitus (HCC)03/11/2025 Bamboo flowsheet [facility] [address] [place] [address] Robert Guzman DPM 03/11/20253855Ubfjcs91/08/2025Travelfrom Last 3 Months Immunizations ImmunizationAdministration DatesNext DueInfluenza, seasonal, injectable 04/15/2014PPD Test08/24/2021,08/17/2021,12/05/2018,11/28/2018,11/22/2018 Pneumococcal Polysaccharide [id number] Social History Tobacco UseTypesPacks/DayYears UsedDateSmoking Tobacco: GpegmhIuctwozsbg165 Smokeless Tobacco: Never Tobacco Cessation:Counseling Given: Not Answered Alcohol UseStandard Drinks/WeekCommentsNot Currently0 (1 standard drink = 0.6 oz pure alcohol)Sex and Gender InformationValueDate RecordedSex Assigned at Not on fileLegal CqqHkbc9209/14/2022 6:59 PM EDTGender IdentityNot on fileSexual OrientationNot on file Last Filed Vital Signs Vital SignReadingTime TakenCommentsBlood Yuvfzlhl646/9109/03/2019 12:00 PM EST Pulse--Spetjantoji78.5 ??C (97.7 ??F)10/04/2024 11:29 AM EDTRespiratory Rate-- Oxygen Saturation--Inhaled Oxygen Concentration--Obxefc85.6 kg (180 lb) 04/16/2025 3:38 PM GLOGuusqv425.3 cm (5' 9 )04/16/2025 3:38 PM EDTBody Mass Index26.5804/16/2025 3:38 PM EDT Plan of Treatment DateTypeDepartmentCare Team (Latest Contact Info)Nqozkhbfldy34/03/2025 2:15 PM ESTProcedure Visit [facility] [address] [place] [address] Robert Guzman DPEdvin [address] [place] [address] Health MaintenanceDue DateLast DoneCommentsCT Xauhzztxvdav1954Colonoscopy 4Colorectal Cancer Dqqrptgzp1954FIT-DNA1954FIT1954 FOBT1954 5685Qqqaegprqribf1954Pneumococcal Vaccine: 65+ Years (2 of 2 - PCV)/Influenza Vaccine (#1)/04/2023, 04/25/2022, 04/19/2021, Additional history exists Insurance Care Teams Team MemberRelationshipSpecialtyStart DateEnd Bradley Bejarano PA [address] [place] [address] PCP - GeneralFamily Medicine10/02/24
--- OUTSIDE RECORDS SUMMARY | 2025-04-30 09:21 | XMS_ITS | Clinical Summary ---
Author Organization [facility] Address [address] [place] [address] Care Team Providers Care Community Relations Representative Name Role Phone Unavailable Primary Care Provider Unavailabl e Social History Tobacco UseTypesPacks/DayYears UsedDateSmoking Tobacco: Never AssessedUT Safety & EnvironmentAnswerDate RecordedFear of Current or Ex-PartnerNot on file 08/24/2023Emotionally AbusedNot on file08/24/2023hysically AbusedNot on file 08/24/2023Sexually AbusedNot on file08/24/2023hysically or Sexually AbusedNot on file08/24/2023Sex and Gender InformationValueDate RecordedSex Assigned at BirthNot on fileLegal VjkNvpg8212/29/2021 9:00 PM EDTGender IdentityNot on file Sexual OrientationNot on file Plan of Treatment Not on file
--- OUTSIDE RECORDS SUMMARY | 2025-04-30 09:21 | XMS_ITS | Encounter Summary ---
Author Organization [facility] Address [address] [place] [address] Care Team Providers Care Port Purser Name Role Phone Bradley Bejarano Primary Care Provider [phone] Encounter Details DateTypeDepartmentCare Team (Latest Contact Info)Jcibxwwecri59/15/2025Travel Social History Tobacco UseTypesPacks/DayYears UsedDateSmoking Tobacco: SiknfdPqafoqfbty157 Smokeless Tobacco: NeverAlcohol UseStandard Drinks/WeekCommentsNot Currently0 (1 standard drink = 0.6 oz pure alcohol)Sex and Gender InformationValueDate RecordedSex Assigned at BirthNot on fileLegal BfdRkpq4909/14/2022 6:59 PM EDT Gender IdentityNot on fileSexual OrientationNot on filedocumented as of this encounter Plan of Treatment DateTypeDepartmentCare Team (Latest Contact Info)Ofdzsrfkhih05/03/2025 2:15 PM ESTProcedure Visit [facility] [address] [place] [id number] Robert Guzman DPM [address] [place] [address] documented as of this encounter Visit Diagnoses Not on filedocumented in this encounter Care Teams Team MemberRelationshipSpecialtyStart DateEnd Date Bradley Bejarano PA [address] [place] [address] PCP - GeneralFamily Medicine10/02/24documented as of this encounter
--- OUTSIDE RECORDS SUMMARY | 2025-04-30 09:21 | XMS_ITS | Encounter Summary ---
Author Organization [facility] Address [address] [place] [address] Care Team Providers Care Stopboard Assembler Name Role Phone Bradley Bejarano Primary Care Provider [phone] Encounter Details DateTypeDeguadalupe county hospitalmentCare Team (Latest Contact Info)Qamuswrypgh33/15/2025amboo flowsheet [facility] [address] [place] [address] Robert Guzman DPM [address] [facility] [place], [place] [id number] Social History Tobacco UseTypesPacks/DayYears UsedDateSmoking Tobacco: MemdvaJdqntsufwv821 Smokeless Tobacco: NeverAlcohol UseStandard Drinks/WeekCommentsNot Currently0 (1 standard drink = 0.6 oz pure alcohol)Sex and Gender InformationValueDate RecordedSex Assigned at BirthNot on fileLegal LnzWoob8209/14/2022 6:59 PM EDT Gender IdentityNot on fileSexual OrientationNot on filedocumented as of this encounter Plan of Treatment DateTypeDeguadalupe county hospitalmentCare Team (Latest Contact Info)Lmlpsutdvty72/03/2025 2:15 PM ESTProcedure Visit [facility] [address] [place] [address] Robert Guzman DPM [address] [place], [place] [id number] documented as of this encounter Visit Diagnoses Not on filedocumented in this encounter Care Teams Team MemberRelationshipSpecialtyStart DateEnd Date Bradley Bejarano PA [address] [place] [address] PCP - GeneralFamily Medicine10/02/24documented as of this encounter
--- OUTSIDE RECORDS SUMMARY | 2025-04-30 09:26 | XMS_ITS | CCD ---
Author Organization [facility] Care Team Providers Care E Commerce Architect Name Role Phone MARIANA GUTIÉRREZ Attending Unavailable MARIANA GUTIÉRREZ Admitting Unavailable MARIANA GUTIÉRREZ Attending Unavailable MARIANA GUTIÉRREZ Admitting Unavailable MARIANA GUTIÉRREZ Admitting Unavailable MARIANA GUTIÉRREZ Attending Unavailable CHET FOURNIER Admitting Unavailable CHET FOURNIER Attending Unavailable MARIANA GUTIÉRREZ Admitting Unavailable MARIANA GUTIÉRREZ Attending Unavailable MARIANA GUTIÉRREZ Admitting Unavailable ZIEBDR EDILSON BONE Consulting Unavailable MARIANA GUTIÉRREZ Attending Unavailable MARIANA GUTIRÉREZ Consulting Unavailable MARIANA GUTIÉRREZ Admitting Unavailable MARIANA GUTIÉRREZ Consulting Unavailable MARIANA GUTIÉRREZ Attending Unavailable Services, [facility] Primary Care Provider Services, [facility] Provider Services, [facility] Primary Care Provider GRETTA WHITLOCK Admitting Unavailable GRETTA WHITLOCK Attending Unavailable GRETTA WHITLOCK Referring Unavailable SERVICES, [facility] Primary Care Unava ilable Bradley Saucedo Primary Care Provider GRETTA WHITLOCK Attending Unavailable SERVICES, [facility] Primary Care Unava ilable GRETTA WHITLOCK Attending Unavailable MARIANA GUTIÉRREZ Referring Unavailable SERVICES, [facility] Primary Care Unava ilable Patander Mariana JORDAN Attending Provider Mariana Gutiérrez Attending Unavailable Mariana Gutiérrez Admitting Unavailable BEBETO ROMANO Attending Unavailable ALBER HYDE Referring Unavailable SERVICES, [facility] Primary Care Unava ilable BEBETO ROMANO Attending Unavailable EBBETO ROMANO Referring Unavailable SERVICES, [facility] Primary Care Unava ilable BEBETO ROMANO Attending Unavailable ALBER HYDE Referring Unavailable SERVICES, [facility] Primary Care Unava ilable SERVICES, [facility] Care Unava ilable CHRISTIAN, DIVYA Valera Attending Unavailable ALBER HYDE Admitting Unavailable ALBER HYDE Attending Unavailable ALBER HYDE Referring Unavailable DIMITRI, ALBER Valera Attending Unavailable ALBER HYDE Referring Unavailable SERVICES, [facility] Unava ilable CECY, IZZY Langford Referring Unavailable SERVICES, [facility] Unava ilable BEBETO ROMANO Attending Unavailable ALBER HYDE Referring Unavailable SERVICES, [facility] Unava ilable MARIANA GUTIÉRREZ Referring Unavailable SERVICES, [facility] Unava ilable SERVICES, [facility] Unava ilable VANDANA BRAR Attending Unavailable SERVICES, [facility] Unava ilable SERVICES, [facility] Unava ilable EDILSON FERNANDES Attending Unavailable BRARVANDANA N Attending Unavailable BRARVANDANA N Referring Unavailable SERVICES, [facility] Unava ilable TYRESE, VANDANA N Attending Unavailable BRAR, VANDANA N Referring Unavailable SERVICES, [facility] Unava ilable VANDANA BRAR N Attending Unavailable BRAR VANDANA N Referring Unavailable SERVICES, [facility] Unava ilable BRARVANDANA N Attending Unavailable BRAR, VANDANA N Referring Unavailable SERVICES, [facility] Unava ilable SERVICES, [facility] Unava ilable JAIRO GARG Attending Unavailable SHERINE RAMIRES Referring Unavailable SERVICES, [facility] Unava ilable SHERINE RAMIRES Referring Unavailable SERVICES, [facility] Unava ilable BEBETO BEARD Attending Unavailable RUS, EDILSON Langford Attending Unavailable RUS, EDILSON Langford Attending Unavailable RUSHER, EDILSON Langford Attending Unavailable RUSEDILSON FOWLER Attending Unavailable Medications Current Medications MedicationDrug Class(es)DatesSig (Normalized)Sig (Original)8 hr acetaminophen 650 mg extended release oral tablet (19 sources)take 1 tablet by mouth every eight hours as needed for pain acetaminophen (TYLENOL ARTHRITIS) 650 mg 8 hr tablet Take 1 tablet (650 mg total) by mouth every 8 (eight) hours as needed for pain. Active End: 36-58-2820kogo 2 tablets by mouth every six hours as needed for pain acetaminophen (TYLENOL) 325 mg tablet Take 2 tablets (650 mg total) by mouth every 6 (six) hours asneeded for pain. 04/09/2024 Expiredamiodarone hydrochloride 200 mg oral tablet (20 sources)AntiarrhythmicStart: 03-08-2023 End: 61-00-6913lzvx 1 tablet by mouth in the morningamiodarone (Pacerone) 200 MG tablet Take 200 mg by mouth in the morning. 09/04/2024 Activeaspirin 81 mg delayed release oral tablet (20 sources)Platelet Aggregation Inhibitor, Nonsteroidal Anti-inflammatory Drug take 1 tablet by mouth in the morningaspirin 81 MG EC tablet Take 81 mg by mouth in the morning. Activeatorvastatin 20 mg oral tablet (17 sources)HMG-CoA Reductase InhibitorStart: 87-56-4376dltm 1 tablet by mouth in the morningatorvastatin (Lipitor) 20 MG tablet Take 20 mg by mouth in the morning. 09/02/2024 Activecephalexin 500 mg oral capsule (10 sources)Cephalosporin Antibacterialcephalexin (Keflex) 500 MG capsule Take 500 mg by mouth in the morning and 500 mg at noon and 500 mg in the evening and 500 mg before bedtime. Activecholecalciferol 0.025 mg oral capsule (20 sources)Vitamin DStart: 55-98-3135vykz 1 capsule by mouth once dailyD3-1000 25 MCG (1000 UT) capsule Take 25 mcg by mouth Daily 09/09/2024 ActiveStart: 11-02-2023 End: 46-98-1276gckc 1 capsule by mouth in the morningVITAMIN D3 25 mcg (1,000 unit) capsule Take 1 capsule (1,000 Units total) by mouth in the morning. 0 11/02/2023 09/04/2024 Discontinued (Therapy completed) End: 84-15-6581yway 1 tablet by mouth in the morningcholecalciferol (VITAMIN D3) 1,000 units tablet Take 1 tablet (1,000 Units total) by mouth in the morning. 09/04/2024 Discontinued (Therapy completed)take 1 tablet by mouth in the morning cholecalciferol, vitamin D3, 5,000 units tablet Take 1 tablet (5,000 Units total) by mouth in the morning. Activeempagliflozin 25 mg oral tablet (20 sources)Sodium-Glucose Cotransporter 2 InhibitorJardiance 25 MG 1 (one) time each day at the same time Activetake 1 tablet by mouth in the morning empagliflozin (JARDIANCE) 25 mg tablet tablet Take 1 tablet (25 mg total) by mouth in the morning. Active3 ml insulin glargine 100 unt/ml pen injector (15 sources)Insulin Analoginject 32 [IU] by subcutaneous injection once daily insulin glargine (LANTUS, BASAGLAR) 100 unit/mL (3 mL) insulin pen Inject 32 Units under the skin nightly. Activeinject 32 [IU] by subcutaneous injection in the morninginsulin glargine (LANTUS, BASAGLAR) 100 unit/mL (3 mL) insulin pen Inject 32 Units under the skin in the morning. Activemagnesium oxide 400 mg oral tablet (20 sources)Start: 03-10-8579byrzpfjep oxide (Mag-Ox) 400 MG tablet 09/30/2024 ActiveStart: 06-16-2021 End: 61-12-9009oiva 1 tablet by mouth three times daily at mealtimemagnesium oxide (MAG-OX) 400 mg tablet Indications: Hypomagnesemia Take 1 tablet (400 mg total) by mouth 3 (three) times a day with meals. 90 tablet 5 06/16/2021 09/04/2024 Discontinued (Therapy completed)24 hr metFORMIN hydrochloride 500 mg extended release oral tablet (20 sources)BiguanideStart: 70-31-2821dpep 2 tablets by mouth every twenty-four hours in the morning, then take 2 tablets by mouth at bedtimemetFORMIN XR (GLUCOPHAGE-XR) 500 mg 24 hr tablet Take 2 tablets (1,000 mg total) by mouth in the morning and 2 tablets (1,000 mg total) before bedtime. 01/23/2018 Activetake 1 tablet by mouth every twenty-four hours in the morningmetFORMIN XR (Glucophage-XR) 500 MG 24 hr tablet Take 1,000 mg by mouth in the morning and 1,000 mgbefore bedtime. Zqnvtx91 hr metoprolol succinate 100 mg extended release oral tablet (20 sources)beta-Adrenergic BlockerStart: 06-19-2024 End: 01-78-3174zbzr 1 tablet by mouth every twenty-four hours in the morning metoprolol succinate XL (Toprol-XL) 100 MG 24 hr tablet Take 100 mg by mouth in the morning. 07/22/2024 ActiveStart: 97-78-0966pbtl 1 tablet by mouth every twenty-four hours in the morningmetoprolol succinate XL (TOPROL XL) 100 mg 24 hr tablet Indications: Ventricular tachycardia (CMS-HCC) , Atrial fibrillation with RVR (CMS-HCC) , V-tach (CMS-HCC) TAKE 1 TABLET (100 MG TOTAL) BY MOUTH IN THE MORNING 30 tablet 05/23/2024 ActiveStart: 03-16-2023 End: 19-48-4533rboq 1 tablet by mouth every twenty-four hours in the morning metoprolol succinate XL (TOPROL XL) 100 mg 24 hr tablet Indications: Ventricular tachycardia (CMS-HCC) , Atrial fibrillation with RVR (CMS-HCC) , V-tach (CMS- HCC) TAKE 1 TABLET (100 MG TOTAL) BY MOUTH IN THE MORNING 30 tablet 05/23/2024 Activepantoprazole 40 mg delayed release oral tablet (15 sources)Proton Pump InhibitorStart: 55-58-3292ivaa 1 tablet by mouth once daily before breakfastpantoprazole (PROTONIX) 40 mg EC tablet Take 1 tablet (40 mg total) by mouth every morning before breakfast. 30 tablet 3 08/16/2021 Active rivaroxaban 20 mg oral tablet (20 sources)Factor Xa InhibitorStart: 55-04-9659ovta 1 tablet by mouth in the morningXARELTO 20 mg tablet tablet Indications: Atrial fibrillation, unspecified type (CMS-HCC) TAKE 1 TABLET (20 MG TOTAL) BY MOUTH IN THE MORNING 90 tablet 2 12/19/2024 ActiveStart: 05-19-2023 End: 52-33-0167bksu 1 tablet by mouth once dailyXarelto 20 MG tablet Take 20 mg by mouth Daily 02/21/2024 Activesertraline 50 mg oral tablet (20 sources)Serotonin Reuptake Inhibitortake 1 tablet by mouth in the morning sertraline (Zoloft) 50 MG tablet Take 50 mg by mouth in the morning. Activetake 1 tablet by mouth in the morningsertraline (ZOLOFT) 25 mg tablet Take 1 tablet (25 mg total) by mouth in the morning. Active Completed/Discontinued Medications MedicationDrug Class(es)DatesSig (Normalized)Sig (Original)acetaminophen 325 mg / HYDROcodone bitartrate 5 mg oral tablet (14 sources)Opioid Agonist End: 98-83-3814bzxc 1 tablet by mouth every six hours as needed for pain HYDROcodone-acetaminophen (NORCO) 5-325 mg per tablet Take 1 tablet by mouth every 6 (six) hours asneeded for pain. 09/04/2024 Discontinued (Therapy completed)carisoprodol 350 mg oral tablet (14 sources)Muscle RelaxantStart: 12-28-2023 End: 30-73-3640zruk 1 tablet by mouth three times daily as needed for muscle spasmscarisoprodoL (SOMA) 350 mg tablet Take 1 tablet (350 mg total) by mouth 3 (three) times a day as needed for muscle spasms. 12/28/2023 09/04/2024 Discontinued (Therapy completed)sodium hypochlorite 2.5 mg/ml topical solution (14 sources) End: 98-37-1104ggvmxn hypochlorite (DAKIN'S, HALF-STRENGTH,) 0.25 % external solution Apply 1 Application topically daily as needed for wound care (Use to clean left foot wound as instructed.). Use to clean left foot wound as instructed. 09/04/2024 Discontinued (Therapy completed)lactobacillus acidophilus [id number] unt / pectin 10 mg oral capsule (14 sources) End: 04-48-3703yzif 1 capsule by mouth once daily at breakfastacidophilus- pectin, citrus 100 million cell-10 mg capsule Take by mouth daily with breakfast. 09/04/2024 Discontinued (Therapy completed)1 ml methylPREDNISolone acetate 40 mg/ml injection (4 sources)CorticosteroidStart: 10-02-2024 End: 43-00-2871pwcwpyMTWAAHQwdyci acetate (DEPO-Medrol) injection 40 mgStart: 10-02-2024 End: 19-67-480350 mg, Intra-articular, Once PRN Procedure, Starting on Mon10/02/24 at 1335, For 1 doseOZEMPIC 0.25 mg or 0.5 mg (2 mg/3 mL) pen injector (14 sources)Start: 11-28-2023 End: 05-29-8428ixjfxd 0.5 mg by subcutaneous injection every weekOZEMPIC 0.25 mg or 0.5 mg (2 mg/3 mL) pen injector Inject 0.5 mg under the skin once a week. 11/28/2023 09/04/2024 Discontinued (Therapy completed)Start: 75-75-9330eeuxzu 0.5 mg by subcutaneous injection every weekOZEMPIC 0.25 mg or 0.5 mg (2 mg/3 mL) pen injector Inject 0.5 mg under the skin once a week. 11/28/2023 Active tamsulosin hydrochloride 0.4 mg oral capsule (20 sources)alpha-Adrenergic BlockerStart: 05-02-2020 End: 70-05-9847jvkj 1 capsule by mouth in the morningtamsulosin (FLOMAX) 0.4 mg capsule Take 1 capsule (0.4 mg total) by mouth in the morning. 05/02/2020 09/04/2024 Discontinued (Therapy completed)tamsulosin (Flomax) 0.4 MG 24 hr capsule Activetake 2 capsules by mouth once daily 30 minutes after mealtime tamsulosin (Flomax) 0.4 MG 24 hr capsule TAKE 2 CAPSULES BY MOUTH 30 MINS AFTER MEAL DAILY 90 Active Problems Active Problems Problem ClassificationProblemDateDocumented DateEpisodic/ChronicAcquired foot deformities (1 source)Other acquired deformities of left foot; Translations: [OTHER ACQUIRED DEFORMITIES LT FOOT]Onset: 72-34-3287EwpvcpczNmxisdbje infection; unspecified site (1 source)Bacteremia; Translations: [BACTEREMIA]Onset: 20-77-7866VhlfctsvGgesyws dysrhythmias (20 sources)Unspecified atrial fibrillation; Translations: [Paroxysmal atrial fibrillation]Onset: 187506-45-1172GddxftrIpswfma dysrhythmias (1 source)Bradycardia, unspecified; Translations: [BRADYCARDIA UNSPECIFIED] Onset: 28-28-6757RqrpyftyGdaxmcj kidney disease (1 source)Chronic kidney disease; Translations: [Chronic kidney disease, stage 3b]Onset: 37-71-6952Bsdxodx ulcer of skin (6 sources)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 breakdown of skin; Translations: [Non-pressure chronic ulcer of left heel and midfoot limited to breakdown of skin]Onset: 43-43-3641QwmwzjjLxmendxgwh disorders (20 sources)Automatic implantable cardiac defibrillator in situ; Translations: [Presence of automatic (implantable) cardiac defibrillator]Onset: 12-04-2018 45-12-1587NoqnhtvVdsbwksd atherosclerosis and other heart disease (20 sources)Coronary atherosclerosis; Translations: [Atherosclerotic heart disease of knik coronary artery without angina pectoris]Onset: 12-04-2018 93-42-5378GgxgnupBpppbele mellitus with complications (20 sources)Type 2 diabetes mellitus with other skin ulcer; Translations: [Type 2 diabetes mellitus with diabetic nephropathy]Onset: 13-64-0825PxauoxrDcehapbnh of lipid metabolism (19 sources)Pure hypercholesterolemia; Translations: [Pure hypercholesterolemia, unspecified]Onset: 458515-27-0595LifjsnlE Codes: Fall (1 source)FallOnset: 94-07-7322Crnjmqibg hypertension (20 sources)Essential (primary) hypertension; Translations: [Essential hypertension]Onset: 151461-09-0660FihijcaHnutedrv (7 sources)Critical lower limb ischemia ; Translations: [Atherosclerosis of knik arteries of extremities with gangrene, left leg]Onset: 09-26-2024 88-16-2480VgrzukaImpkjqggdunkr symptoms and ill-defined conditions (18 sources)Functional urinary incontinence; Translations: [Functional urinary incontinence]Onset: 729803-62-1728NvzbitgFbjszfjcikw of prostate (20 sources)Benign prostatic hypertrophy with outflow obstruction; Translations: [Benign prostatic hyperplasia with lower urinary tract symptoms]Onset: 591343-88-3769XoxkkhaZaijevkqhoul with complications and secondary hypertension (1 source)Hypertensive chronic kidney disease with stage 1 through stage 4 chronic kidney disease, or unspecified chronic kidney disease; Translations: [HTN CKD W/STAGE 1-4 CKD/UNS CKD]Onset: 93-90-2622WfpeawrWfrzgacgs arthritis and osteomyelitis (except that caused by tuberculosis or sexually transmitted di sease) (18 sources)Osteomyelitis; Translations: [Osteomyelitis, unspecified]Onset: 693628-46-7598YakebdkZsihivm (1 source)Onychomycosis due to dermatophyte ; Translations: [Tinea unguium] 37-67-4375MzcwohikKaccrmpxads deficiencies (1 source)Vitamin D deficiency, unspecified; Translations: [VITAMIN D DEFICIENCY UNSPECIFIED]Onset: 38-20-0504JiuvgkmPwxdbntuuenxex (5 sources)Arthritis of right knee; Translations: [Unilateral primary osteoarthritis, right knee]Onset: 345899-58-6813DokuotzMwcsq aftercare (1 source)Long-term current use of drug therapy; Translations: [Encounter for therapeutic drug level monitoring]30-61-7493QdxsvcoxAxkyv bone disease and musculoskeletal deformities (7 sources)History of amputation of left foot; Translations: [Acquired absence of left foot]58-67-8896UmcjzplSauye circulatory disease (4 sources)Other disorder of circulatory system; Translations: [OTHER DISORDER CIRCULATORY SYSTEM]Onset: 77-87-2614TjrschlfTlnfu circulatory disease (1 source)Other specified symptoms and signs involving the circulatory and respiratory systems; Translations:[OTH SPEC SX SIGNS INVLV CIRC RS]Onset: 05-00-3401QeagaaxyHzwbg connective tissue disease (4 sources)Pain in left foot; Translations: [PAIN IN LEFT FOOT]Onset: 08-09-2022 EpisodicOther non-traumatic joint disorders (4 sources)Effusion of right knee joint; Translations: [Effusion, right knee] 51-33-1245YybrcsjlBdbsv nutritional; endocrine; and metabolic disorders (18 sources)Hypomagnesemia; Translations: [Hypomagnesemia]Onset: 11-17-2021 53-73-0268CxalgiqGfjgg skin disorders (1 source)Dystrophia unguium; Translations: [Nail dystrophy]75-03-2600Xwyfafai Peripheral and visceral atherosclerosis (3 sources)Peripheral vascular disease, unspecified; Translations: [Peripheral vascular disease]Onset: 029442-93-6698HmgloyaGjdy and subcutaneous tissue infections (2 sources)Paronychia of toe of right foot; Translations: [Cellulitis of right toe]85-00-7018ImqmqqrfTsjyuxfueop; intervertebral disc disorders; other back problems (18 sources)Lumbosacral spondylosis without myelopathy; Translations: [Spondylosis without myelopathy or radiculopathy, lumbosacral region]Onset: 990207-94-2039UupuskmKlcghwkvoxne (1 source)CHRN KIDNEY DISEASE STG 3 UNSP; Translations: [CHRN KIDNEY DISEASE STG 3 UNSP]Onset: 01-55-4549Vdhsqennrrxh (1 source)critical limb ischemiaOnset: 25-92-8099Hppgludrqnho (1 source)ANGIO 7-21-80Wfpxl: 61-27-4545Zjhiefwtuwus (1 source)Weakness - GeneralizedOnset: 76-81-2481Vqsqyvncubhj (1 source)Device CheckOnset: 57-61-2200Lyfijskkkjxj (1 source)Ventricular tachycardia, unspecified; Translations: [Ventricular tachycardia, unspecified]Onset: 48-55-0820Icicvzudjovz (1 source)EMSOnset: 04-16-2024 Past or Other Problems Problem ClassificationProblemDateDocumented DateEpisodic/ChronicComplications of surgical procedures or medical care (18 sources)Non-healing surgical wound; Translations: [Other complications of procedures, not elsewhere classified, initial encounter]Onset: 10-01-2021 60-46-2285DmxjvvcpO Codes: Fall (1 source)Unspecified fall, initial encounter; Translations: [Unspecified fall, initial encounter]Onset: 52-75-3550JjncneqgQotqjyrfkdexu symptoms and ill- defined conditions (18 sources)Scot hematuria; Translations: [Gross hematuria]Onset: 09-15-2021 67-55-5993WdtpkvtvLlbwvhk and fatigue (1 source)Weakness; Translations: [Weakness]Onset: 52-56-7984WpoomnijBxogkfugbgj chest pain (18 sources)Chest pain; Translations: [Chest pain, unspecified]Onset: 11-22-2017 74-21-9750SklqafyqQyjn wounds of head; neck; and trunk (18 sources)Open wound of scalp ; Translations: [Unspecified open wound of scalp, initial encounter]Onset: 532902-56-5630NxkfndpyUhlea acquired deformities (1 source)Spondylolysis; Translations: [Spondylolysis, lumbar region]01-09-2024 EpisodicOther aftercare (1 source)Encounter for therapeutic drug level monitoring; Translations: [Encounter for therapeutic drug level monitoring]Onset: 04-51-8411NlqkrlovEjhdd aftercare (1 source)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; Translations: [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]Onset: 25-68-6000QezlgaplPspmt connective tissue disease (18 sources)Myositis; Translations: [Myositis, unspecified]Onset: 08-10-2021 56-00-8270HsvsrqeaMtodn eye disorders (18 sources)Degenerative changes of anterior chamber angle; Translations: [Degeneration of chamber angle, unspecified eye]Onset: 973404-94-1397 EpisodicOther non-traumatic joint disorders (3 sources)Pain in right knee; Translations: [Pain in joint, lower leg]Onset: 459914-34-7179HwlrgvdgPnrwb non-traumatic joint disorders (1 source)Knee painOnset: 50-81-3428RfjfwvjsEysve screening for suspected conditions (not mental disorders or infectious disease) (1 source)Other specified abnormal findings of blood chemistry; Translations: [Other specified abnormal findings of blood chemistry]Onset: 84-81-9024Kcbpjdri Other upper respiratory disease (1 source)Epistaxis; Translations: [Epistaxis]Onset: 92-37-9203BsdrxdxiJvmgkpce; pneumothorax; pulmonary collapse (1 source)Pleural effusion, not elsewhere classified; Translations: [Pleural effusion, not elsewhere classified]Onset: 90-50-6492GhhsabdiEgcmworwi (except that caused by tuberculosis or sexually transmitted disease) (1 source)Pneumonia, unspecified organism; Translations: [Pneumonia, unspecified organism]Onset: 30-69-2807KksatxzzBmcpq and face fractures (1 source)Fracture of nasal bones, initial encounter for closed fracture; Translations: [Fracture of nasal bones, initial encounter for closed fracture] Onset: 23-43-4645WnnajqpoEzaustmxmoz; intervertebral disc disorders; other back problems (3 sources)Lumbar radiculopathy; Translations: [Radiculopathy, lumbar region] Onset: 321299-06-8051Taagvues Results Test NameValueInterpretationReference RangeFacilityALBUMINon 41-93-8897Fadwhsp [Mass/Vol]4.2 g/dLNormal3.2-5.3ProMedica Glend[facility] Research HospitalComment on above: Performed By: #### BMP, CBCA, 92059-0, PINR #### [facility] ([id number]) [address] [place] [address], FIRST FLOOR [place], [place] [address]BASIC METABOLIC PANELon 21-40-5084Flscg gap [Moles/Vol]11 mmol/LNormal5-15AC[facility] Healthcare SystemComment on above:Performed By: #### MARTHA DAS, 89583-3, PINR #### [facility] ([id number]) [address] [place] [address] 04926Dkwzqrv [Mass/Vol]9.1 mg/dLNormal8.5-10.5POhioHealth Berger HospitalComment on above:Performed By: #### MARTHA DAS, 35826-2, PINR #### [facility] ([id number]) [address] [place] [address] 37253Sddbwjnd [Moles/Vol]99 mmol/GPriufc11-402IxnOyzsxhACMC Healthcare SystemComment on above:Performed By: #### MARTHA DAS, 86690-6, PINR #### [facility] ([id number]) [address] [place] [address] 18442BA9 [Moles/Vol]28 mmol/HXosypf49-15OfeDhqcsiOhioHealth Berger Hospital Comment on above:Performed By: #### MARTHA DAS, 40077-1, PINR #### [facility] ([id number]) [address] [place] [address] 39246Eaujbontjj [Mass/Vol]1.30 mg/dLNormal0.60-1.30AC[facility] Healthcare SystemComment on above:Result Comment: METHOD TRACEABLE TO IDMS STANDARD Performed By: #### MARTHA DAS, 71791-3, PINR #### [facility] ([id number]) [address] [place] [address] 01961OSI/1.73 sq M.predicted among non-blacks MDRD (S/P/Bld) [Vol rate/Area]59 mL/min/{1.73_m2}Low>=60ProBaylor Scott & White Medical Center – MckinneyComment on above: Result Comment: Reported eGFR is based on the CKD-EPI 2020 equation that does not use a race coefficient.Performed By: #### THIAGO, CBCA, 73446-4, PINR #### [facility] ([id number]) [address] [place] [address] 78589Xvowvan [Mass/Vol]203 mg/aNYege84-02MwbJbgibhACMC Healthcare System Comment on above:Performed By: #### MARTHA DAS, 28285-1, PINR #### [facility] ([id number]) [address] [place] [address] 77101Ojhnkbjhw [Moles/Vol]4.6 mmol/LNormal3.5-5.0ProBaylor Scott & White Medical Center – MckinneyComment on above:Performed By: #### MARTHA DAS, 18378-1, PINR #### [facility] ([id number]) [address] [place] [address] 70541Qbmlxw [Moles/Vol]138 mmol/WXfauhu514-541AfzKxceeq [facility]remont HospitalComment on above:Performed By: #### MARTHA DAS, 10638-4, PINR #### [facility] ([id number]) [address] [place] [address] 40248Mjwj nitrogen [Mass/Vol]16 mg/dLNormal5-27AC[facility] Healthcare SystemComment on above:Performed By: #### MARTHA DAS, 17298-9, PINR #### [facility] ([id number]) [address] [place] [address]3694YAY (NO DIFF)on 41-12-6634Litbkcwjfcc distribution width (RBC) [Ratio]16.2 %High11.5-15ProBaylor Scott & White Medical Center – MckinneyComment on above:Performed By: #### THIAGO, MARTHA, 74034-2, PINR #### [facility] ([id number]) [address] [place], [place] [address] 85418Ijemlpumfg (Bld) [Volume fraction]36.1 %Kch18-75HtnMfokyaBaylor Scott & White Medical Center – MckinneyComment on above:Performed By: #### MARTHA DAS, 59677-4, PINR #### [facility] ([id number]) [address] [place] [address] 56738Vhnrnztlmo (Bld) [Mass/Vol]11.6 g/wXQgc93-55QthGhukxmACMC Healthcare SystemComment on above:Performed By: #### MARTHA DAS, 96751-8, PINR #### [facility] ([id number]) [address] [place] [address] 79741REU (RBC) [Entitic mass]27.0 osRxdlit25-88DgpMxaotiACMC Healthcare SystemComment on above:Performed By: #### MARTHA DAS, 14428-3, PINR #### [facility] ([id number]) [address] [place] [address] 03869RDJG (RBC) [Mass/Vol]32.2 g/eAZyzyyq51-61ZqpJomlplBaylor Scott & White Medical Center – MckinneyComment on above:Performed By: #### MARTHA DAS, 52977-4, PINR #### [facility] ([id number]) [address] [place] [address] 20001JDK (RBC) [Entitic vol]84 bBFertpr03-551FguMjziseACMC Healthcare SystemComment on above:Performed By: #### MARTHA DAS, 56129-0, PINR #### [facility] ([id number]) [address] [place] [address] 03665Mpfhbicl mean volume (Bld) [Entitic vol]8.0 fLNormal7-12 ACMC Healthcare SystemComment on above:Performed By: #### THIAGO, MARTHA, 33215- 9, PINR #### [facility] ([id number]) [address] [place] [address] 24373Jiqhpnngg (Bld) [#/Vol]266 10*3/dJGqjove759-165EutBhkuowACMC Healthcare SystemComment on above:Performed By: #### MARTHA DAS, 07342-2, PINR #### [facility] ([id number]) [address] [place] [address] 68146DDU COUNT4.29 X10E12/LNormal4.1-5.7ProChi St[facility] on above:Performed By: #### MARTHA DAS, 73525-4, PINR #### [facility] ([id number]) [address] [place] [address] 18576NSS (Bld) [#/Vol]6.3 10*3/uLNormal4-11ProBaylor Scott & White Medical Center – MckinneyComment on above:Performed By: #### MARTHA DAS, 98829-8, PINR #### [facility] ([id number]) [address] [place] [address] 76319MRKLJRJRTzk 94-88-4326Cgmdbqewp [Mass/Vol]2.1 mg/dLNormal 1.8-2.6ProBaylor Scott & White Medical Center – MckinneyComment on above:Performed By: #### THIAGO, MARTHA, 93129-4, PINR #### [facility] ([id number]) [address] [place] [address] 24108XQZVGGKUOXSS / CREATININE URINE RATIOon 63-19-9948Iddfryo DL <= 20 mg/L (U) [Mass/Vol]9.9 mg/dLHigh0.0-1.9ACMC Healthcare SystemComment on above:Performed By: #### THIAGO, MARTHA, 96743-7, PINR #### [facility] ([id number]) [address] [place] [address] 94612WNDX/CREAT YHVSZ877.6 mg/gHigh0.0-30.0ProBaylor Scott & White Medical Center – MckinneyComment on above:Performed By: #### THIAGO, MARTHA, 33265-8, PINR #### [facility] ([id number]) [address] [place] [address] 04889RWYQY CREATININE,RDM54.83 mg/dLSaint Luke'S HospitalalACMC Healthcare System Comment on above:Performed By: #### THIAGO, CBCA, 29162-5, PINR #### [facility] ([id number]) [address] [place] [address] 77597UXXPUNVLILX HORMOME, INTACTon 58-20-2175IAB XMDHWC41 pg/mL Ebidzu04-56GhvJzdyhaBaylor Scott & White Medical Center – MckinneyComment on above:Performed By: #### THIAGO, MARTHA, 21824-5, PINR #### [facility] ([id number]) [address] [place] [address], [place] [address]TODYNTAWOYkb 86-98-2434Idtpchiey [Mass/Vol]3.5 mg/dLNormal 2.4-4.9ACMC Healthcare SystemComment on above:Performed By: #### THIAGO, CBCA, 59968-5, PINR #### [facility] ([id number]) [address] [place] [address], [place] [address]VVCS ACIDon 38-33-9028Izlcw [Mass/Vol]6.2 mg/dLNormal2.6-7.2 ACMC Healthcare SystemComment on above:Performed By: #### MARTHA DAS, 63149- 9, PINR #### [facility] ([id number]) [address] [place] [address], [place] [address]IKYTVZNHRRhd 77-02-4021Zkqbpeshe Ql (U)NegativeNormalNegative ACMC Healthcare SystemComment on above:Performed By: #### THIAGO, CBCA, 77343- 9, PINR #### [facility] ([id number]) [address] [place] [address] 39136AKUDL/HGBNegativeNormalNegativeACMC Healthcare System Comment on above:Performed By: #### THIAGO, CBCA, 26445-1, PINR #### [facility] ([id number]) [address] [place] [address], [place] [address]Vlmnt (U)YellowNormalYellowACMC Healthcare SystemComment on above:Performed By: #### BMP, CBCA, 33657-2, PINR #### [facility] ([id number]) [address] [place] [address], [place] [address]Iqggqqj Ql (U)>1000 mg/dLAbnormalNegativeProBaylor Scott & White Medical Center – MckinneyComment on above:Performed By: #### THIAGO, CBCA, 03284-5, PINR #### [facility] ([id number]) [address] [place] [address] 70797Toqjyxg Ql (U)NegativeNormalNegOhioHealth Dublin Methodist Hospital Comment on above:Performed By: #### THIAGO, CBCA, 55708-9, PINR #### [facility] ([id number]) [address] [place] [address], [place] [address]Ftvwyryaf esterase Test strip Ql (U)SmallAbnormalNegative [facility] HospitalComment on above:Result Comment: High Concentrations of Glucose May Decrease the Reactivity of the Dipstick Leukocyte Test Pad. Performed By: #### THIAGO, CBCA, 16621-8, PINR #### [facility] ([id number]) [address] [place] [address], [place] [address]JGWRDCAfgwnliEggibymiZmxfVrlCcieaz [facility] HospitalComment on above:Performed By: #### BMP, CBCA, 08838-3, PINR #### [facility] ([id number]) [address] [place] [address] 45977Tyevmin Ql (U)PositiveAbnormalNegativeACMC Healthcare SystemComment on above:Performed By: #### BMP, CBCA, 35496-5, PINR #### [facility] ([id number]) [address] [place] [address] 52735RO,URINE5.5Lbqgnn9.0-8.5POhioHealth Berger HospitalComment on above:Performed By: #### MARTHA DAS, 89384-8, PINR #### [facility] ([id number]) [address] [place] [address] 63194Enqwcgj Ql (U)TraceAbnormalNegativeACMC Healthcare System Comment on above:Performed By: #### MARTHA DAS, 66675-5, PINR #### [facility] ([id number]) [address] [place] [address] 86332H.B.GUPBO7Vtrfrx0-1DgmNvbxctOhioHealth Berger HospitalComment on above: Performed By: #### MARTHA DAS, 96084-2, PINR #### [facility] ([id number]) [address] [place] [address] 44550Wdhosfsh gravity (U) [Rel density]1.175Jfljmf6.003-1.035 [facility] HospitalComment on above:Performed By: #### MARTHA DAS, 15300- 9, PINR #### [facility] ([id number]) [address] [place] [address] 23921QNRIMIXXZTsiivLpqnapUluzfZshLlrsur [facility] HospitalComment on above:Performed By: #### MARTHA DAS, 88196-9, PINR #### [facility] ([id number]) [address] [place] [address] 51862WPNUNCJUNHPV<1.1 eu/dLNormal<1.1 eu/dLACMC Healthcare SystemComment on above:Performed By: #### MARTHA DAS, 30578-4, PINR #### [facility] ([id number]) [address] [place] [address] 60357P.B.CVXUV2Qcrx8-5KvcUdxnhb [facility] HospitalComment on above: Performed By: #### THIAGO, CBCA, 38137-9, PINR #### [facility] ([id number]) [address] [place] [address] 25582XDIYWXF D 25 HYDROXYon 74-46-4670MZSHFDL D 25 HYD TOT36.6 ng/mL Bailpb82.0-100.0Pro[facility] Research HospitalComment on above:Order Comment: Vitamin D status 25 OH Vitamin D Deficiency <20 ng/mLInsufficiency 20-29 ng/mLSufficiency 30-100 ng/mLToxicity >100 ng/mLNOTE: A pediatric reference range has not been established by the certification engineer of this kit. The [place] [employer] recommends a Vitamin D level of = or >20ng/mL in infants and children.Performed By: #### THIAGO, CBCA, 80493-2, PINR #### [facility] ([id number]) [address] [place] [address] 12513UU RETROPERITONEAL COMPLETEon 20-11-1257WS RETROPERITONEAL COMPLETEUS RETROPERITONEAL COMPLETE HISTORY: A 69-year-old male with [...] configuration. Right kidney measures 10.9 x 4.3 x4.6 Cms. Right renal cortical thickness measures 0.7 [...] by Kali Luevano MD on 01/06/2025 2:08 PMNormalACMC Healthcare SystemBEDSIDE GLUCOSEon 88-58-3099Qrefhyy [Mass/Vol]249 mg/pQEgfj28-66 ACMC Healthcare SystemComment on above:Performed By: #### BMP, CBCA, 06408- 9, PINR #### [facility] ([id number]) [address] [place] [address] 32748LEY WITH AUTO DIFFERENTIALon 12-48-4813KILAWZCXC ABSOLUTE COUNT (10*3/UL) BY AUTOMATED COUNT0.1 10*3/uLNormal0.0-0.2POhioHealth Berger Hospital Comment on above:Performed By: #### THIAGO, CBCA, 24928-5, PINR #### [facility] ([id number]) [address] [place] [address] 58281JGFYHFSLS RELATIVE PERCENT BY AUTOMATED COUNT0.6 %Normal ACMC Healthcare SystemComment on above:Performed By: #### THIAGO, CBCA, 32414- 9, PINR #### [facility] ([id number]) [address] [place] [address] 56903NOFDZFZPOVL DIFFERENTIAL TYPEAUTOMATED DIFFERENTIALNormal ACMC Healthcare SystemComment on above:Performed By: #### BMP, CBCA, 99628- 9, PINR #### [facility] ([id number]) [address] [place] [address] 60510Jybefuqdkli (Bld) [#/Vol]0.0 10*3/uLNormal0.0-0.4ACMC Healthcare SystemComment on above:Performed By: #### BMP, CBCA, 80821-9, PINR #### [facility] ([id number]) [address] [place] [address] 14946IGKSFXVTMMP RELATIVE PERCENT BY AUTOMATED COUNT0.2 %Normal ACMC Healthcare SystemComment on above:Performed By: #### THIAGO CBCAnastasiya, 56924- 9, PINR #### [facility] ([id number]) [address] [place] [address] 63984Ukugfwyqzga distribution width (RBC) [Ratio]16.3 %High11.5-15 ACMC Healthcare SystemComment on above:Performed By: #### THIAGO CBCAnastasiya, 98210- 9, PINR #### [facility] ([id number]) [address] [place] [address] 90358Mlhbtzulvd (Bld) [Volume fraction]34.6 %Gro31-14UxaLvaxofACMC Healthcare SystemComment on above:Performed By: #### MARTHA DAS, 71866-5, PINR #### [facility] ([id number]) [address] [place] [address] 35540Rxjpoetfwm (Bld) [Mass/Vol]11.4 g/mBNvc31-02HjdKattaxACMC Healthcare SystemComment on above:Performed By: #### THIAGO, CBCA, 06981-7, PINR #### [facility] ([id number]) [address] [place] [address] 83248REIBAETJLKQ ABSOLUTE COUNT (10*3/UL) BY AUTOMATED COUNT1.5 10*3/uLNormal1.0-3.5POhioHealth Berger HospitalComment on above:Performed By: #### THIAGO, CBCA, 92493-6, PINR #### [facility] ([id number]) [address] [place] [address] 46443JYFNVRGKDGJ RELATIVE PERCENT BY AUTOMATED COUNT16.3 %Normal ACMC Healthcare SystemComment on above:Performed By: #### THIAGO, CBCA, 52205- 9, PINR #### [facility] ([id number]) [address] [place] [address] 14114CLY (RBC) [Entitic mass]29.6 qsFgtpll84-13RqdDoyyzxBaylor Scott & White Medical Center – MckinneyComment on above:Performed By: #### BMP, CBCA, 02448-7, PINR #### [facility] ([id number]) [address] [place] [address] 76022IORY (RBC) [Mass/Vol]32.9 g/uWTqknrz11-77NooLnyogeBaylor Scott & White Medical Center – MckinneyComment on above:Performed By: #### THIAGO, CBCA, 14866-5, PINR #### [facility] ([id number]) [address] [place] [address] 03439NLI (RBC) [Entitic vol]90 qTVgdvfn09-230PomAydwnc [facility]remont HospitalComment on above:Performed By: #### THIAGO, CBCA, 03721-8, PINR #### [facility] ([id number]) [address] [place] [address] 69344TNBIXLQOX ABSOLUTE COUNT (10*3/UL) BY AUTOMATED COUNT1.1 10*3/uLHigh0.0-0.9ACMC Healthcare SystemCommunson healthcare cadillac hospital on above:Performed By: #### THIAGO, CBCA, 53320-4, PINR #### [facility] ([id number]) [address] [place] [address] 53449VQNMLJTRI RELATIVE PERCENT BY AUTOMATED COUNT12.7 %Normal ProMMission Bay campusComment on above:Performed By: #### BMP, CBCA, 21855- 9, PINR #### [facility] ([id number]) [address] [place] [address] 03006FMNXACEJCDL ABSOLUTE COUNT BY AUTOMATED COUNT6.4 10*3/uLNormal 1.5-6.6ProBaylor Scott & White Medical Center – MckinneyComment on above:Performed By: #### BMP, CBCA, 79155-2, PINR #### [facility] ([id number]) [address] [place] [address] 51779YGDYCBHCDTC RELATIVE PERCENT BY AUTOMATED COUNT70.2 %Normal [facility] Healthcare SystemComment on above:Performed By: #### THIAGO, CBCA, 28210- 9, PINR #### [facility] ([id number]) [address] [place] [address] 16014Gpuccszf mean volume (Bld) [Entitic vol]7.6 fLNormal7-12 [facility] Healthcare SystemComment on above:Performed By: #### THIAGO, GRETCHENA, 87091- 9, PINR #### [facility] ([id number]) [address] [place] [address] 98866Wpgpgmiqn (Bld) [#/Vol]305 10*3/cGOlcbhi112-067ZukVklihp [facility] HospitalComment on above:Performed By: #### THIAGO, CBCA, 66285-3, PINR #### [facility] ([id number]) [address] [place] [address] 84427WDF COUNT3.85 X10E12/LLow4.1-5.7[facility] Comment on above:Performed By: #### THIAGO, CBCA, 98893-8, PINR #### [facility] ([id number]) [address] [place] [address] 17240PKO (Bld) [#/Vol]9.0 10*3/uLNormal4-11ACMC Healthcare SystemComment on above:Performed By: #### THIAGO, CBCA, 50355-7, PINR #### [facility] ([id number]) [address] [place] [address] 77272EUGKBFOBNJWIR METABOLIC PANELon 56-44-3838Wbbdvdo [Mass/Vol]3.9 g/dLNormal3.2-5.3ProMedica Gold Canyon HospitalComment on above:Performed By: #### THIAGO, MARTHA, 00945-5, PINR #### [facility] ([id number]) [address] [place] [address], [place] [address]YMP [Catalytic activity/Vol]43 U/RNelpbp16-232KjsTztyhjBaylor Scott & White Medical Center – MckinneyComment on above:Performed By: #### THIAGO, MARTHA, 76270-5, PINR #### [facility] ([id number]) [address] [place] [address], [place] [address]LDM [Catalytic activity/Vol]11 U/LNormal<=40ProBaylor Scott & White Medical Center – MckinneyComment on above:Performed By: #### THIAGO, GRETCHENA, 29386-2, PINR #### [facility] ([id number]) [address] [place] [address], [place] [address]Fsqla gap [Moles/Vol]10 mmol/LNormal5-15ProBaylor Scott & White Medical Center – MckinneyComment on above:Performed By: #### THIAGO, MARTHA, 71374-5, PINR #### [facility] ([id number]) [address] [place] [address], [place] [address]JAU [Catalytic activity/Vol]19 U/LNormal<=41ProBaylor Scott & White Medical Center – MckinneyComment on above:Performed By: #### THIAGO, MRATHA, 61487-0, PINR #### [facility] ([id number]) [address] [place] [address], [place] [address]Tndbhjxnl [Mass/Vol]0.5 mg/dLNormal0.3-1.2POhioHealth Berger HospitalComment on above:Performed By: #### THIAGO, GRETCHENA, 00630-1, PINR #### [facility] ([id number]) [address] [place] [address], [place] [address]Jbeephk [Mass/Vol]8.8 mg/dLNormal8.5-10.5PNorth Suburban Medical Center HospitalComment on above:Performed By: #### THIAGO, MARTHA, 95807-5, PINR #### [facility] ([id number]) [address] [place] [address] 29721Zzocptiv [Moles/Vol]100 mmol/AHjpnjv99-412WmuJpiayhACMC Healthcare SystemComment on above:Performed By: #### THIAGO, MARTHA, 71359-3, PINR #### [facility] ([id number]) [address] [place] [address] 40787FF4 [Moles/Vol]24 mmol/FQnzsgq54-62EfsHzzdsfOhioHealth Berger Hospital Comment on above:Performed By: #### MARTHA DAS, 45860-1, PINR #### [facility] ([id number]) [address] [place] [address] 86023Dmmyfnmehz [Mass/Vol]1.49 mg/dLHigh0.70-1.20ACMC Healthcare SystemComment on above:Result Comment: METHOD TRACEABLE TO IDMS STANDARD Performed By: #### MARTHA DAS, 24568-0, PINR #### [facility] ([id number]) [address] [place] [address] 15218SGT/1.73 sq M.predicted among non-blacks MDRD (S/P/Bld) [Vol rate/Area]50 mL/min/{1.73_m2}Low>=60ACMC Healthcare SystemComment on above: Result Comment: eGFR not reported due to non-numeric value for Creatinine. Reported eGFR is based on the CKD-EPI 2021 equation that does not use a race coefficient.Performed By: #### THIAGO, MARTHA, 69879-8, PINR #### [facility] ([id number]) [address] [place] [address] 45709Hvsmiya [Mass/Vol]246 mg/cFPkjt34-85KsvFwqgmbACMC Healthcare System Comment on above:Performed By: #### THIAGO, CBCA, 62138-0, PINR #### [facility] ([id number]) [address] [place] [address] 13972Uqhpiutfx [Moles/Vol]4.4 mmol/LNormal3.5-5.0ProBaylor Scott & White Medical Center – MckinneyComment on above:Performed By: #### THIAGO, CBCA, 79392-2, PINR #### [facility] ([id number]) [address] [place] [address] 44862Zgmwdro [Mass/Vol]7.2 g/dLNormal6.0-8.0ProBaylor Scott & White Medical Center – MckinneyComment on above:Performed By: #### THIAGO CBCA, 20117-5, PINR #### [facility] ([id number]) [address] [place] [address] 89869Ynovcj [Moles/Vol]134 mmol/GPvciqb164-510OjqBurdsv [facility] HospitalComment on above:Performed By: #### THIAGO, CBCA, 94732-1, PINR #### [facility] ([id number]) [address] [place] [address] 52396Bund nitrogen [Mass/Vol]23 mg/dLNormal5-27ProBaylor Scott & White Medical Center – MckinneyComment on above:Performed By: #### THIAGO, CBCA, 76455-7, PINR #### [facility] ([id number]) [address] [place] [address] 80322R-DGIKFao 11-14-2024D DIMER<^438Crfvef4-651TfpVrogpv [facility] HospitalComment on above:Result Comment: Results <255 ng/mL DDU: The presensence of a VTE can safely be excluded with a negative D-Dimer result and Wells score. A negative result doesn't exclude the possibility of DIC. The test should be repeated along with other diagnostic tests if the patient's symptoms persist or worsen.Performed By: #### THIAGO, CBCA, 49182-3, PINR #### [facility] ([id number]) [address] [place] [address] 11120NMIOUTrd 78-91-8712Ajfwdp [Catalytic activity/Vol]36 U/LNormal 17-40ProBaylor Scott & White Medical Center – MckinneyComment on above:Performed By: #### GRETCHEN DASA, 23206-8, PINR #### [facility] ([id number]) [address] [place] [address] 45968ESXDSZZTIyw 28-04-4039Eompvgqdd [Mass/Vol]2.1 mg/dLNormal 1.8-2.6ProBaylor Scott & White Medical Center – MckinneyComment on above:Performed By: #### MARTHA DAS, 28415-9, PINR #### [facility] ([id number]) [address] [place] [address] 36088ZSSS I, HIGH SENSITIVITY 1 HOURon 78-95-3885BWHOQTYY I, HIGH SENSITIVITY8 ng/LNormal<21ProBaylor Scott & White Medical Center – MckinneyComment on above:Performed By: #### GRETCHEN DASA, 00175-3, PINR #### [facility] ([id number]) [address] [place] [address] 52071ADMAKFQB I, HIGH SENSITIVITY 0 HOURon 74-51-3039MPEFJCCV I, HIGH SENSITIVITY7 ng/LNormal<21ProBaylor Scott & White Medical Center – MckinneyComment on above: Performed By: #### GRETCHEN DASA, 32634-1, PINR #### [facility] ([id number]) [address] [place] [address], [place] [address]MU CHEST 1 VWon 17-85-7627PQ CHEST 1 VWXR CHEST 1 VW History: weakness Exam/Technique: Single [...] by Fausto Angulo MD on 11/14/2024 1:19 [facility]XR [facility] 3 VWSon 38-22-9182BH FOOT LT MIN 3 VWSXR FOOT LT MIN 3 VWS History: Weakness Exam/Technique: 3 views of the left foot were obtained. Comparison: None Findings: Transmetatarsal amputation of the digits is seen. Extensive vascular calcifications are identified. No complicating processes are seen. There is no evidence for an acute osseous abnormality. IMPRESSION: Transmetatarsal amputations of the digits. Otherwise normal left foot. Finalized by Stan Jaramillo MD on 11/14/2024 1:31 [facility] 11-12-2024L Specimen: [id number] Received: 11/13/24 Status: [place] Yin Num: [id number] Spec Type: Surgical Subm Dr: Mariana Gutiérrez,NIKKI, MS Tissues: A DIGIT AMPUTATION (LEFT FOREFOOT) Procedures: HE/5, Gross/Micro L4, Decalcification Age/ Patient Sex Location Account Attending Physician Tomas Frausto 69/M [place] [id number] Mariana Gutiérrez DPM, MS SPEC NUM: [id number] RECD: 11/13/24 STATUS: [place] YIN NUM: [id number] EL: 11/12/[address]: Mariana Gutiérrez DPM, MS ENTERED: 11/13/[address]: Christy,Leonor SPEC TYPE: Surgical DEPT: YANIV HESTER ENTERED BY: [id number] RECV BY: [id number] ORDERED: HE/5, Gross/Micro L4, Decalcification ORDERED: HE/5, [...] end, consistent with a previous resection. Specimen: [id number] Received: 11/13/24 Status: [place] Yin Num: [id number] Spec Type: Surgical Subm Dr: Mariana Gutiérrez,DPEdvin, MS Tissues: A DIGIT AMPUTATION (LEFT FOREFOOT) Procedures: HE/5, Gross/Micro L4, Decalcification Patient: Tomas Frausto [id number] (Continued) Specimen: [id number] Received: 11/13/24 (Continued) Gross Description (Continued) Signed (signature on file) Howie Up MD 11/19/24 1325 Specimen: [id number] Received: 11/13/24 Status: [place] Yin Num: [id number] Spec Type: Surgical Subm Dr: Mariana Gutiérrez,NIKKI, MS Tissues: A DIGIT AMPUTATION (LEFT FOREFOOT) Procedures: HE/5, Gross/Micro L4, Decalcification Patient: Tomas Frausto [id number] (Continued) Specimen: [id number] Received: 11/13/24 (Continued) Gross Description (Continued) Cassettes: A1 Tangential sections of proximal skin margin A2 Crusted wound A3 Left third digit crusted area with underlying metatarsal bone, decalcified A4 Discolored soft tissue and underlying left, second proximal phalangeal bone, decalcified A5 Discolored soft tissue and underlying left, first metatarsal bone, decalcified (5, , NL74-700 A)Eda Microscopic Description Microscopic examination is performed CPT Codes 32895 71268 Specimen: [id number] Received: 11/13/24 Status: [place] Yin Num: [id number] Spec Type: Surgical Subm Dr: Mariana Gutiérrez,NIKKI, MS Tissues: A DIGIT AMPUTATION (LEFT FOREFOOT) Procedures: HE/5, Gross/Micro L4, Decalcification Patie (more content not included)...[facility] Physician GroupNo Panel Informationon [id number] Hills 10/02/2024 2:10 PM L Inj/Asp: R [...] discussed. Consent was given by the patient. [facility] HealthcareNONE HealthcareGlucose (Bld) [Mass/Vol]on [id number] nitrogen [Mass/Vol]19 mg/dLNormal6-27[facility] CenterXR KNEE RT 3 VWSon 24-06-5442DV KNEE RT 3 VWSXR KNEE RT 3 VWS XR KNEE RT 3 VWS INDICATION: pain, effusion. Right knee pain FINDINGS: Atherosclerotic vascular calcification. Suprapatellar joint effusion. Bipartite patella. No acute fracture or dislocation. Tricompartmental degenerative changes with joint space narrowing, sclerosis,spur formation, and chondrocalcinosis. IMPRESSION: 1. No acute fracture or dislocation. 2. Small suprapatellar joint effusion with moderate tricompartmental degenerative changes as above. Finalized by Sandro Alfonso MD on 09/13/2024 12:54 PMNormalProBaylor Scott & White Medical Center – MckinneyDevice Interrogationon [id number] Health System Galion HospitalRadiology Study observation (narrative)[facility] SystemPOCT EKGon [id number] Toledo Hospital AND AUTO DIFFon 90-24-5570WSNLWYNV BASOPHIL0.0 X10E9/LNormal 0.0-0.2POhioHealth Berger HospitalComment on above:Performed By: #### MARTHA DAS, 23379-7, PINR #### [facility] ([id number]) [address] [place] [address] 07789QUGZUGYW NEUTROPHIL3.8 X10E9/LNormal1.5-6.6[facility] SystemComment on above:Performed By: #### MARTHA DAS, 33841-7, PINR #### [facility] ([id number]) [address] [place] [address] 09690Bfipcsvbg/100 WBC (Bld)0.8 %NormalACMC Healthcare System Comment on above:Performed By: #### MARTHA DAS, 55930-8, PINR #### [facility] ([id number]) [address] [place] [address] 58052Tsyomrssegb (Bld) [#/Vol]0.0 10*3/uLNormal0.0-0.4[facility] Healthcare SystemComment on above:Performed By: #### MARTHA DAS, 50186-7, PINR #### [facility] ([id number]) [address] [place] [address] 08185Jreuxmnldkv/100 WBC (Bld)0.7 %NormalACMC Healthcare System Comment on above:Performed By: #### THIAGO, CBCA, 43762-0, PINR #### [facility] ([id number]) [address] [place] [address] 47503Malbvwonpvt distribution width (RBC) [Ratio]14.6 %Normal 11.5-15.0ACMC Healthcare SystemComment on above:Performed By: #### THIAGO, CBCA, 71031-5, PINR #### [facility] ([id number]) [address] [place] [address] 17003Bkvqblezlf (Bld) [Volume fraction]42.0 %Nhflae45-11MrfZwovgdBaylor Scott & White Medical Center – MckinneyComment on above:Performed By: #### THIAGO, CBCA, 85419-5, PINR #### [facility] ([id number]) [address] [place] [address] 50142Avbenyejvt (Bld) [Mass/Vol]13.9 g/oRLlgmqm52.0-17.0ACMC Healthcare SystemComment on above:Performed By: #### THIAGO, CBCA, 04595-6, PINR #### [facility] ([id number]) [address] [place] [address] 72841Lgphefcdnjp (Bld) [#/Vol]1.5 10*3/uLNormal1.0-3.5POhioHealth Berger HospitalComment on above:Performed By: #### THIAGO, CBCA, 40419-9, PINR #### [facility] ([id number]) [address] [place] [address] 36917Avgwbbfshcw/100 WBC (Bld)24.7 %NormalACMC Healthcare System Comment on above:Performed By: #### BMP, CBCA, 26941-3, PINR #### [facility] ([id number]) [address] [place] [address] 68331FWC (RBC) [Entitic mass]30.7 ejUkhoti70-40YryFxoxvbBaylor Scott & White Medical Center – MckinneyComment on above:Performed By: #### BMP, CBCA, 74729-5, PINR #### [facility] ([id number]) [address] [place] [address] 89735XABB (RBC) [Mass/Vol]33.0 g/mGRqadmy60-64XnuHtyyglBaylor Scott & White Medical Center – MckinneyComment on above:Performed By: #### THIAGO, CBCA, 90655-5, PINR #### [facility] ([id number]) [address] [place] [address] 92088FCP (RBC) [Entitic vol]93 eNHxiosv25-473QuzHvdpdp [facility]ont HospitalComment on above:Performed By: #### BMP, CBCA, 91247-4, PINR #### [facility] ([id number]) [address] [place] [address] 04375Ldqiknmpi (Bld) [#/Vol]0.6 10*3/uLNormal0-0.9ACMC Healthcare SystemComment on above:Performed By: #### BMP, CBCA, 97129-8, PINR #### [facility] ([id number]) [address] [place] [address] 72513Uyfliiklr/100 WBC (Bld)9.7 %[facility] Comment on above:Performed By: #### BMP, CBCA, 39911-7, PINR #### [facility] ([id number]) [address] [place] [address] 92931Wafjvrzxrql/100 WBC (Bld)64.1 %[facility] Comment on above:Performed By: #### BMP, CBCA, 75589-8, PINR #### [facility] ([id number]) [address] [place] [address], [place] [address]Letdwjgm mean volume (Bld) [Entitic vol]8.2 fLNormal7-12 ProMMission Bay campusComment on above:Performed By: #### MARTHA DAS, 09452- 9, PINR #### [facility] ([id number]) [address] [place] [address] 82188Mftsskomo (Bld) [#/Vol]315 10*3/cWKlwsop242-175ShwEouxfs [facility] HospitalComment on above:Performed By: #### MARTHA DAS, 25852-1, PINR #### [facility] ([id number]) [address] [place] [address] 51643PRA COUNT4.52 X10E12/LNormal4.10-5.70[facility] Comment on above:Performed By: #### MARTHA DAS, 51618-3, PINR #### [facility] ([id number]) [address] [place] [address] 70282NEP (Bld) [#/Vol]5.9 10*3/uLNormal4.0-11.0ACMC Healthcare SystemComment on above:Performed By: #### MARTHA DAS, 09663-0, PINR #### [facility] ([id number]) [address] [place] [address] 64820AEP [Mass/Vol]on 07-22-2024 REACTIVE PROTEIN1.9 mg/dLHigh 0.000-0.744POhioHealth Berger HospitalComment on above:Performed By: #### MARTHA DAS, 44396-2, PINR #### [facility] ([id number]) [address] [place] [address] 43889WZN Photometric method (Bld) [Velocity]on 28-79-3304YLY, ERYTHROCYTE SEDIMENTATION RATE47 mm/hHigh0-20ProBaylor Scott & White Medical Center – MckinneyComment on above:Performed By: #### THIAGO, CBCA, 21534-9, PINR #### [facility] ([id number]) [address] [place] [address] 48801EMO A1C (GLYCO-HGB)on 83-96-7283Xnshcxe [Mass/Vol]203 mg/dL NormalProBaylor Scott & White Medical Center – MckinneyComment on above:Performed By: #### THIAGO, CBCA, 74652-6, PINR #### [facility] ([id number]) [address] [place] [address] 39054UfF4m (Bld) [Mass fraction]8.7 %High4.4-5.6ACMC Healthcare SystemComment on above:Result Comment: NOTE ADA Guidelines Result HgbA1c Normal : less than 5.7 % Prediabetes : 5.7 % to 6.4 % Diabetes : > 6.4 % Use with caution in patients with abnormal hemoglobin variants as the half-life of red blood cells and in vivo glycation rates are affected.Performed By: #### THIAGO, CBCA, 64278-9, PINR #### [facility] ([id number]) [address] [place] [address] 29969GDEGJSRJPVWON METABOLIC PANELon 46-14-6199Ibaavfg [Mass/Vol]4.2 g/dLNormal3.2-5.3ProMedCommunity Memorial Hospital of San BuenaventuraComment on above:Performed By: #### CMP, TSHR #### [facility] ([id number]) [address] [place] [address] 61370 #### 16157-5 #### [facility] ([id number]) [address] [place], [place] [address]KXB [Catalytic activity/Vol]46 U/LEgmuel89-370PewOwfiimBaylor Scott & White Medical Center – MckinneyComment on above:Performed By: #### CMP, TSHR #### [facility] ([id number]) [address] [place] [address] 90580 #### 44489-7 #### [facility] ([id number]) [address] [place], [place] [address]VBB [Catalytic activity/Vol]16 U/LNormal0-40ProBaylor Scott & White Medical Center – MckinneyComment on above:Performed By: #### CMP, TSHR #### [facility] ([id number]) [address] [place] [address] 02955 #### 81234-8 #### [facility] ([id number]) [address], [address] [place], [place] [address]Acwvs gap [Moles/Vol]10 mmol/LNormal5-15ProBaylor Scott & White Medical Center – MckinneyComment on above:Performed By: #### CMP, TSHR #### [facility] ([id number]) [address] [place] [address] 81105 #### 13567-8 #### [facility] ([id number]) [address], [address] [place], [place] [address]RYO [Catalytic activity/Vol]16 U/LNormal0-41ProBaylor Scott & White Medical Center – MckinneyComment on above:Performed By: #### CMP, TSHR #### [facility] ([id number]) [address] [place] [address] 37173 #### 88139-9 #### [facility] ([id number]) [address], [address] [place], [place] [address]Fblexlxfm [Mass/Vol]0.5 mg/dLNormal0.3-1.2ProMedica Glendale Research HospitalComment on above:Performed By: #### CMP, TSHR #### [facility] ([id number]) [address] [place] [address] 70937 #### 60637-7 #### [facility] ([id number]) [address] [place] [address]Sirguys [Mass/Vol]9.3 mg/dLNormal8.5-10.5POhioHealth Berger HospitalComment on above:Performed By: #### CMP, TSHR #### [facility] ([id number]) [address] [place] [address] 85066 #### 93231-0 #### [facility] ([id number]) [address] [place], [place] [address]Icarihlc [Moles/Vol]99 mmol/JAkehgj66-422VulLfzwyqBaylor Scott & White Medical Center – MckinneyComment on above:Performed By: #### CMP, TSHR #### [facility] ([id number]) [address] [place] [address] 39207 #### 81262-7 #### [facility] ([id number]) [address] [place], [place] [address]VN9 [Moles/Vol]26 mmol/AVjwyaf57-13EglBvjpfnOhioHealth Berger Hospital Comment on above:Performed By: #### CMP, TSHR #### [facility] ([id number]) [address] [place] [address] 06119 #### 49532-0 #### [facility] ([id number]) [address], [address] [place], [place] [address]Gcfomzseoz [Mass/Vol]1.27 mg/dLHigh0.70-1.20ACMC Healthcare SystemComment on above:Result Comment: METHOD TRACEABLE TO IDMS STANDARD Performed By: #### CMP, TSHR #### [facility] ([id number]) [address] [place] [address] 89175 #### 63096-0 #### [facility] ([id number]) [address], [address] [place], [place] [address]NMY/1.73 sq M.predicted among non-blacks MDRD (S/P/Bld) [Vol rate/Area]61 mL/min/{1.73_m2}Normal>59ProBaylor Scott & White Medical Center – MckinneyComment on above:Result Comment: Reported eGFR is based on the CKD-EPI 2020 equation that does not use a race coefficient.Performed By: #### ANNE, TSHR #### [facility] ([id number]) [address] [place] [address] 03022 #### 27726-9 #### [facility] ([id number]) [address] [place], [place] [address]Ymdzfbm [Mass/Vol]177 mg/nBYxxj46-41VxwKfjtyoBaylor Scott & White Medical Center – Mckinney Comment on above:Performed By: #### ANNE, TSHR #### [facility] ([id number]) [address] [place] [address] 31595 #### 35559-5 #### [facility] ([id number]) [address], [address] [place], [place] [address]Vrubedzsz [Moles/Vol]4.5 mmol/LNormal3.5-5.0ProBaylor Scott & White Medical Center – MckinneyComment on above:Performed By: #### CMP, TSHR #### [facility] ([id number]) [address] [place] [address] 98607 #### 22499-0 #### [facility] ([id number]) [address], [address] [place], [place] [address]Tzpcoyo [Mass/Vol]7.6 g/dLNormal6.0-8.0ProBaylor Scott & White Medical Center – MckinneyComment on above:Performed By: #### CMP, TSHR #### [facility] ([id number]) [address] [place] [address] #### 33348-2 #### [facility] ([id number]) [address], [address] [place], [place] [address]Mcjsnu [Moles/Vol]135 mmol/BVovdcg433-479WerFqhbbc Fremont HospitalComment on above:Performed By: #### CMP, TSHR #### [facility] ([id number]) [address] [place] [address] 77813 #### 91573-8 #### [facility] ([id number]) [address] [place], [place] [address]Frdx nitrogen [Mass/Vol]24 mg/dLNormal5-27ProBaylor Scott & White Medical Center – MckinneyComment on above:Performed By: #### ANNE, TSHR #### [facility] ([id number]) [address] [place] [address] 15361 #### 38743-9 #### [facility] ([id number]) [address] [place], [place] [address]Wedjv 1995 panelon 71-22-8110Bexgbrfnoqo [Mass/Vol]137 mg/dLLow 150-200ProBaylor Scott & White Medical Center – MckinneyComment on above:Performed By: #### THIAGO, CBCA, 80470-8, PINR #### [facility] ([id number]) [address] [place] [address] 975[address]Iyloqwlgmtz in HDL [Mass/Vol]32 mg/dLLow>39ProBaylor Scott & White Medical Center – MckinneyComment on above:Result Comment: HDL <40 mg/dL - High Risk HDL > or = 40mg/dL- Desirable HDL >60 mg/dL - Negative Risk Performed By: #### THIAGO, CBCA, 54915-4, PINR #### [facility] ([id number]) [address] [place] [address] 98373Eenilpjwmqv in LDL [Mass/Vol]50 mg/dLNormal<130ProBaylor Scott & White Medical Center – MckinneyComment on above:Result Comment: LDL <100 mg/dL - Desirable LDL >160 mg/dL - High Risk Performed By: #### GRETCHEN DASA, 63611-4, PINR #### [facility] ([id number]) [address] [place] [address] 69039Thvljdkygcj in VLDL [Mass/Vol]55 mg/dLHigh0-30ProBaylor Scott & White Medical Center – MckinneyComment on above:Performed By: #### GRETCHEN DASA, 93086-5, PINR #### [facility] ([id number]) [address] [place] [address] 67675KVDBGXMBCIK:HDL4.7Qwnzna3.0-5.0[facility] Comment on above:Performed By: #### THIAGO, CBCA, 22610-6, PINR #### [facility] ([id number]) [address] [place] [address] 52775Rvrwmxdckrqs [Mass/Vol]275 mg/bKPswy23-173VcsAlcnrsBaylor Scott & White Medical Center – MckinneyComment on above:Performed By: #### THIAGO, CBCA, 40980-6, PINR #### [facility] ([id number]) [address] [place] [address] 63347BZQ WITH REFLEXon 01-19-7320GOG9.67 uIU/mLNormal0.49-4.67 ACMC Healthcare SystemComment on above:Performed By: #### CMP, TSHR #### [facility] ([id number]) [address] [place] [address] 46986 #### 60039-1 #### [facility] ([id number]) [address], [address] [place], [place] [address]WYJIT METABOLIC PANLon 39-69-7473Rayzg gap [Moles/Vol]10 mmol/L Normal5-15ProBaylor Scott & White Medical Center – MckinneyComment on above:Performed By: #### MARTHA DAS, 27017-5, PINR #### [facility] ([id number]) [address] [place] [address] 32627Zysnipx [Mass/Vol]9.3 mg/dLNormal8.5-10.5POhioHealth Berger HospitalComment on above:Performed By: #### MARTHA DAS, 58182-3, PINR #### [facility] ([id number]) [address] [place] [address] 42726Bohlempc [Moles/Vol]101 mmol/UPklcnc53-077KohKgjkrfBaylor Scott & White Medical Center – MckinneyComment on above:Performed By: #### MARTHA DAS, 57832-0, PINR #### [facility] ([id number]) [address] [place] [address] 01892AY8 [Moles/Vol]27 mmol/ZOljjzk33-76TzuIqegpfOhioHealth Berger Hospital Comment on above:Performed By: #### MARTHA DAS, 65845-7, PINR #### [facility] ([id number]) [address] [place] [address] 43631Isqzcigisj [Mass/Vol]1.19 mg/dLNormal0.70-1.20ACMC Healthcare SystemComment on above:Result Comment: METHOD TRACEABLE TO IDMS STANDARD Performed By: #### GRETCHEN DASA, 30272-7, PINR #### [facility] ([id number]) [address] [place] [address] 52721LGO/1.73 sq M.predicted among non-blacks MDRD (S/P/Bld) [Vol rate/Area]66 mL/min/{1.73_m2}Normal>59ProBaylor Scott & White Medical Center – MckinneyComment on above:Result Comment: Reported eGFR is based on the CKD-EPI 2020 equation that does not use a race coefficient.Performed By: #### MARTHA DAS, 15857-8, PINR #### [facility] ([id number]) [address] [place] [address] 49250Abjaxry [Mass/Vol]165 mg/rJRxts73-76KhlKhqtfcACMC Healthcare System Comment on above:Performed By: #### MARTHA DAS, 63772-9, PINR #### [facility] ([id number]) [address] [place] [address] 52169Housyqwrq [Moles/Vol]4.2 mmol/LNormal3.5-5.0ProBaylor Scott & White Medical Center – MckinneyComment on above:Performed By: #### MARTHA DAS, 22361-6, PINR #### [facility] ([id number]) [address] [place] [address] 90752Zxxgny [Moles/Vol]138 mmol/JIhcwrj252-816GacMrhqyeACMC Healthcare SystemComment on above:Performed By: #### MARTHA DAS, 75301-9, PINR #### [facility] ([id number]) [address] [place] [address] 46842Rhyr nitrogen [Mass/Vol]17 mg/dLNormal5-27ProBaylor Scott & White Medical Center – MckinneyComment on above:Performed By: #### MARTHA DAS, 79567-3, PINR #### [facility] ([id number]) [address] [place] [address] 07427CJH AND AUTO DIFFon 71-79-0208SNKLFKFI BASOPHIL0.0 X10E9/L Normal0.0-0.2ProMedCommunity Memorial Hospital of San BuenaventuraComment on above:Performed By: #### MARTHA DAS, 62387-4, PINR #### [facility] ([id number]) [address] [place] [address] 93476NBCHVMHM NEUTROPHIL4.0 X10E9/LNormal1.5-6.6ACMC Healthcare SystemComment on above:Performed By: #### THIAGO, CBCA, 83905-8, PINR #### [facility] ([id number]) [address] [place] [address] 75903Vzrzbjmdj/100 WBC (Bld)0.5 %[facility] Comment on above:Performed By: #### THIAGO, CBCA, 78301-4, PINR #### [facility] ([id number]) [address] [place] [address] 78680Usutxwgnfin (Bld) [#/Vol]0.0 10*3/uLNormal0.0-0.4ProBaylor Scott & White Medical Center – MckinneyComment on above:Performed By: #### THIAGO, CBCA, 28571-6, PINR #### [facility] ([id number]) [address] [place] [address] 43668Soouuzplrod/100 WBC (Bld)0.4 %[facility] Comment on above:Performed By: #### THIAGO, CBCA, 18075-8, PINR #### [facility] ([id number]) [address] [place] [address] 56165Vwjnkehzkcr distribution width (RBC) [Ratio]15.7 %High11.5-15.0 ACMC Healthcare SystemComment on above:Performed By: #### THIAGO, CBCA, 74527- 9, PINR #### [facility] ([id number]) [address] [place] [address] 49699Ztpielkxlu (Bld) [Volume fraction]39.9 %Dwvmoe86-41OtmAfnevzBaylor Scott & White Medical Center – MckinneyComment on above:Performed By: #### THIAGO, CBCA, 19266-6, PINR #### [facility] ([id number]) [address] [place] [address] 26878Vuejbfooll (Bld) [Mass/Vol]13.1 g/gJEtcddx97.0-17.0ACMC Healthcare SystemComment on above:Performed By: #### THIAGO, CBCA, 23431-3, PINR #### [facility] ([id number]) [address] [place] [address] 42468Dbznonjoekn (Bld) [#/Vol]1.1 10*3/uLNormal1.0-3.5POhioHealth Berger HospitalComment on above:Performed By: #### THIAGO, CBCA, 22572-6, PINR #### [facility] ([id number]) [address] [place] [address] 54641Phkowkqgzqi/100 WBC (Bld)18.2 %NormalProBaylor Scott & White Medical Center – Mckinney Comment on above:Performed By: #### THIAGO, CBCA, 11195-3, PINR #### [facility] ([id number]) [address] [place] [address] 71146BBO (RBC) [Entitic mass]30.6 utHlqfhs92-48WdjLvurigACMC Healthcare SystemComment on above:Performed By: #### THIAGO, CBCA, 58486-9, PINR #### [facility] ([id number]) [address] [place] [address] 99533ILTH (RBC) [Mass/Vol]32.8 g/tDIltyud95-47MksApfmfgBaylor Scott & White Medical Center – MckinneyComment on above:Performed By: #### THIAGO, CBCA, 92719-7, PINR #### [facility] ([id number]) [address] [place] [address] 25373OZJ (RBC) [Entitic vol]93 aSRxqkcz41-552MemPjlgzp [facility] HospitalComment on above:Performed By: #### THIAGO, CBCA, 52186-1, PINR #### [facility] ([id number]) [address] [place] [address] 29279Nbosfcpxb (Bld) [#/Vol]0.8 10*3/uLNormal0-0.9ACMC Healthcare SystemComment on above:Performed By: #### THIAGO, CBCA, 06434-0, PINR #### [facility] ([id number]) [address] [place] [address] 15475Oiouicxrn/100 WBC (Bld)13.5 %[facility] Comment on above:Performed By: #### THIAGO, CBCA, 69451-5, PINR #### [facility] ([id number]) [address] [place] [address] 81962Oalyqrcyhtl/100 WBC (Bld)67.4 %[facility] Comment on above:Performed By: #### THIAGO, CBCA, 45351-3, PINR #### [facility] ([id number]) [address] [place] [address] 01581Iidcruwv mean volume (Bld) [Entitic vol]7.4 fLNormal7-12 ACMC Healthcare SystemComment on above:Performed By: #### THIAGO, CBCA, 08111- 9, PINR #### [facility] ([id number]) [address] [place] [address] 32030Jkwoavsmj (Bld) [#/Vol]284 10*3/hKFebccy612-157OgeZlghiz [facility] HospitalComment on above:Performed By: #### THIAGO, CBCA, 36597-7, PINR #### [facility] ([id number]) [address] [place] [address] 63581CZI COUNT4.27 X10E12/LNormal4.10-5.70[facility] Comment on above:Performed By: #### THIAGO, CBCA, 70348-7, PINR #### [facility] ([id number]) [address] [place] [address] 79024LQB (Bld) [#/Vol]5.9 10*3/uLNormal4.0-11.0ACMC Healthcare SystemComment on above:Performed By: #### THIAGO, CBCA, 68701-1, PINR #### [facility] ([id number]) [address] [place] [address] 32801SS BRAIN WO CONTon 78-40-4090WN BRAIN WO CONTCT BRAIN WO CONT CT BRAIN WITHOUT CONTRAST COMPARISON: 12/28/2020 HISTORY: Injury and pain. TECHNIQUE: Unenhanced axial images of the brain were obtained. Automatic exposure control (AEC) wasutilized. FINDINGS: There is no evidence for acute [...] by Gayatri Avila DO on 04/16/2024 2:16 PMNormalACMC Healthcare SystemCT CERVICAL SPINE WO CONTon 82-94-3364IC CERVICAL SPINE WO CONTCT CERVICAL SPINE WO CONT CT CERVICAL SPINE [...] by Gayatri Avila DO on 04/16/2024 2:24 PMNormalSelect Medical [facility], Beachwood HospitalCT FACIAL BONES WO CONTon 18-22-0341WO FACIAL BONES WO CONTCT FACIAL BONES WO CONT CT FACIAL BONES [...] Finalized by Morris Lau on 04/16/2024 2:30 PMNormalACMC Healthcare System PROTIME AND INRon [id number] Coag (PPP) [Relative time]2.1 {INR}High0.8-1.1 ProMedicCedars-Sinai Medical CenterComment on above:Performed By: #### MARTHA DAS, 11497- 9, PINR #### [facility] ([id number]) [address] [place] [address] [id number] Coag (PPP) [Time]23.7 sHigh9.8-13.2ProMedCommunity Memorial Hospital of San BuenaventuraComment on above:Result Comment: NEW REFERENCE RANGEPerformed By: #### MARTHA DAS, 14628-5, PINR #### [facility] ([id number]) [address] [place] [address] [id number] Coag (PPP) [Time]on 75-33-2887pOYR Coag (Bld) [Time]48 s Nqlu53-36NpsRkqaig [facility] HospitalComment on above:Result Comment: NEW REFERENCE RANGEPerformed By: #### BMP, CBCA, 28609-8, PINR #### [facility] ([id number]) [address] [facility]LO[address] [place], [place] [address]IH LUMBAR SPINE WO CONTon 79-29-5078UV LUMBAR SPINE WO CONTMR LUMBAR SPINE WO CONT EXAM: MRI LUMBAR [...] protrusion. There is moderate narrowing of the neuralforamina. There is mild facet osteoarthropathy. L3-L4: There [...] by Baldo Stephens MD on 04/01/2024 10:47 [facility] Vital Signs Date TimeVital SignValuePerforming [id number] 15:38-0400Body myhgvl611.3 cmSteven Rusher DPM Work Phone: [phone] [place], [place] 1834410-15-2025 15:38-0400Body mass index (BMI) [Ratio]26.58 kg/q5Nemszi Rusher DPM Work Phone: [phone])[address] [place], [place] 1834410-15-2025 15:38-0400Body mkwcbi86.65 kgSteven Rusher DPM Work Phone: [phone])[address] [place], [place] 1834407-10-2025 13:25-0400Body peunmb880.3 cmSteven Rusher DPM Work Phone: [phone])[facility] [place], [place] [address]Myidpkwkub57-45-6360 13:25-0400Body mass index (BMI) [Ratio]26.58 kg/s3Rdgmkq Rusher DPM Work Phone: [phone])[address] [place], [place] 1834407-10-2025 13:25-0400Body yskhmj55.65 kgSteven Rusher DPM Work Phone: [phone])[address] [place], [place] 1834404-10-2025 10:53-0400Body gukieg801.3 Desiree Whitlock MD Work Phone: [facility]04-10-2025 10:53-0400Body mass index (BMI) [Ratio]26.58 kg/y2KzzncmqGretta Whitlock MD Work Phone: [facility]04-10-2025 10:53-0400Body yyzrct09.65 kgGretta Whitlock MD Work Phone: [phone])[facility]04-10-2025 10:53-0400Diastolic blood yxasnbft38 mm[Hg]Gretta Whitlock MD Work Phone: [phone]04-10-2025 10:53-0400Heart rate 59 /minGretta Whitlock MD Work Phone: [phone])[facility]04-10-2025 10:53-0442IfQ8% (BldA) [Mass fraction]99 %Gretta Whitlock MD Work Phone: [phone])[facility]04-10-2025 10:53-0400Systolic blood aztxccay494 mm[Hg]Gretta Whitlock MD Work Phone: [phone])[facility]04-04-2025 11:29-0400Body qbwbuw879.3 cmSteven Rusher DPM Work Phone: [phone] [place], [place] [address]Hgpiidkjcy29-27-1241 11:29-0400Body mass index (BMI) [Ratio]26.58 kg/s3Okhrcd Rusher DPM Work Phone: [phone] [place], [place] [address]Yqaoehmeii84-57-4964 11:29-0400Body temperature 97.7 [degF]Edilson Levyher DPM Work Phone: [phone] [place], [place] [address]Wzyeuhjbsf15-34-8808 11:29-0400Body eixrmw24.65 kgSteven Rusher DPM Work Phone: [phone] [place], [place] [address]Jndeevvguo10-10-6581 13:11-0400Body ljyaan741.3 cmMattcharanjit Beard PA Work Phone: [facility] NorthHmujndvmkm47-31-0973 13:11-0400Body mass index (BMI) [Ratio]26.58 kg/r0Oxxtrnv Meyer PA Work Phone: [facility] NorthMhlawystkk06-92-4178 13:11-0400Body .65 kgMatthew Chirag PA Work Phone: [facility] NorthLfyqshvawv01-35-6889 09:37-0400Body aqenin232.3 cmGretta Whitlock MD Work Phone: 1(708)[facility]03-27-2025 09:37-0400Body mass index (BMI) [Ratio]26.58 kg/z9KdhfxiiGretta Whitlock MD Work Phone: 1(775)[facility]03-27-2025 09:37-0400Body hlclowxlhcz50.7 [degF]Gretta Whitlock MD Work Phone: 1(695)[facility]03-27-2025 09:37-0400Body .65 kgGretta Whitlock MD Work Phone: 1(137)[facility]03-27-2025 09:37-0400Diastolic blood xtamwipo60 mm[Hg]Gretta Whitlock MD Work Phone: 1(089)[facility]03-27-2025 09:37-0400Heart rate 60 /minGretta Whitlock MD Work Phone: 1(657)[facility]03-27-2025 09:37-6065ChO0% (BldA) [Mass fraction]98 %Gretta Whitlock MD Work Phone: 1([phone])[facility]03-27-2025 09:37-0400Systolic blood jjdpkpoi159 mm[Hg]Gretta Whitlock MD Work Phone: 1(038)[facility]03-05-2025 12:58-0500Body nnnorn052.3 cmAjayro Brar INSTRUMENTATION SUPERVISOR-GAS APPLIANCE REPAIRER Work Phone: [facility]03-05-2025 12:58-0500Body mass index (BMI) [Ratio]27.02 kg/f9BkhbhwVandana Brar INSTRUMENTATION SUPERVISOR-GAS APPLIANCE REPAIRER Work Phone: [facility]03-05-2025 12:58-0500Body .01 kgVandana Brar INSTRUMENTATION SUPERVISOR-GAS APPLIANCE REPAIRER Work Phone: [facility]03-05-2025 12:58-0500Diastolic blood ipnpnomc70 mm[Hg]Vandana Brar INSTRUMENTATION SUPERVISOR-GAS APPLIANCE REPAIRER Work Phone: [facility] Kaurgs61-91-4342 12:58-0500Heart rate 54 /minVandana Brar INSTRUMENTATION SUPERVISOR-GAS APPLIANCE REPAIRER Work Phone: [facility] Zydwnj23-38-8056 12:58-0165IeH8% (BldA) [Mass fraction]97 %Vandana Brar INSTRUMENTATION SUPERVISOR-GAS APPLIANCE REPAIRER Work Phone: [facility] Xskenh11-17-0827 12:58-0500Systolic blood gxcrgpav859 mm[Hg]Vandana Brar INSTRUMENTATION SUPERVISOR-GAS APPLIANCE REPAIRER Work Phone: [facility] Thkdvo42-47-2775 11:55-0500Diastolic blood tunnxiiw67 mm[Hg]Bebeto Romano PA Work Phone: [facility] Bhjfzo19-23-7561 11:55-0500Heart rate 71 /minMatthew Nienberg PA Work Phone: [facility] Qqgelm07-92-8271 11:55-0500 Respiratory rate20 /minMatthew Nienberg PA Work Phone: [facility] Dxcblk19-90-2375 11:55-3861HjN8% (BldA) [Mass fraction]100 %Bebeto Josephenberg PA Work Phone: [facility] Pkihwx52-39-2147 11:55-0500Systolic blood smoqlzbb328 mm[Hg]Bebeto Romano PA Work Phone: [facility] Inlfwk85-79-5800 10:12-0400Body iznjyj388.3 cmMatthew Nienberg PA Work Phone: [facility] HospitalFuton [facility] HospitalComment on above:stated 04-09-2024 10:12-0400Body mass index (BMI) [Ratio]27.62 kg/u3Yfbxhpj Nienberg PA Work Phone: [facility] Vtbhtk15-49-2138 10:12-0400Body ddytre74.82 kgMatthew Nienberg PA Work Phone: [facility] Puunsd88-62-0280 10:120400Diastolic blood lhorklme82 mm[Hg]Bebeto Romano PA Work Phone: [facility] Yayixu81-42-4976 10:120400Heart rate 63 /minMatthew Nienberg PA Work Phone: [facility] Kjhejr38-09-6802 10:120400 Respiratory rate16 /minMatthew Nienberg PA Work Phone: [facility]10-08-2024 10:129300MhO8% (BldA) [Mass fraction]100 %Bebeto Romano PA Work Phone: [facility]10-08-2024 10:120400Systolic blood fbadcmqh285 mm[Hg]Bebeto Romano PA Work Phone: [facility] Ejxaqq92-11-6346 13:29-0400Body .3 cmMatthew Nienberg PA Work Phone: [facility] Ewdsvi80-48-8189 13:29-0400Body mass index (BMI) [Ratio]26.73 kg/a9Cdcnzyf Nienberg PA Work Phone: [facility] Nenrrr00-78-9524 13:29-0400Body dmawll86.1 kgMatthew Nienberg PA Work Phone: [facility] Oaslcn97-04-4886 13:29-0400Diastolic blood mm[Hg]Bebeto Josephenberg PA Work Phone: [facility] Squrxy14-96-1920 13:29-0400Heart rate 65 /minMatthew Nienberg PA Work Phone: [facility] Xiqdtt50-98-5236 13:29-9628GhF7% (BldA) [Mass fraction]99 %Bebeto Nienberg PA Work Phone: [facility] Bqtoes15-74-2565 13:29-0400Systolic blood qbyraklu989 mm[Hg]Bebeto Romano PA Work Phone: [facility]Speed[facility]07-09-2024 12:23-0400Body .3 cmMattkyew Juan Antonio PA Work Phone: [facility] Abnjil72-16-1313 12:23-0400Body mass index (BMI) [Ratio]27.02 kg/q5Uysgpuu Nienberg PA Work Phone: [facility] HospitalYapmo07-09-2024 12:23-0400Body qdjoyv76.01 kgMatthew Opalenberg PA Work Phone: [facility]07-09-2024 12:23-0400Diastolic blood qzucsluo00 mm[Hg]Bebeto Romano PA Work Phone: [facility] Jdnowz57-71-7796 12:23-0400Heart rate 65 /minMatthew Nienberg PA Work Phone: [facility] HospitalYapmo07-09-2024 12:23-0400 Respiratory rate16 /minMatthew Nienberg PA Work Phone: [facility] HospitalFuton Epqqvw92-03-1411 12:23-7319MhG0% (BldA) [Mass fraction]98 %Bebeto Romano PA Work Phone: [facility]07-09-2024 12:23-0400Systolic blood vdrmobmk803 mm[Hg]Bebeto Romano PA Work Phone: [facility] Encounters Encounter DateEncounter TypeCare ProviderFacilityStart: 04-16-2025 End: 18-12-2336Emkhwr follow up visit related to original Kesha Guzman DPM Work Phone: NONE [place] PodiatryComment on above: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); Angiopathy, diabetic (HCC); Diabetic polyneuropathy associated with type 2 diabetes mellitus (HCC); 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)Start: 04-16-2025 End: 27-51-5984wrdgojaifqMQXERA A RUSHERNot AvailableStart: 04-16-2025 End: 50-39-0463Ikdgfy flowsheetSteven A Rusher DPM Work Phone: [facility] PodiatryStart: 04-16-2025 End: 15-57-6281Fqpnoa flowsheetSteven A Rusher DPM Work Phone: [facility] PodiatryStart: 03-11-2025 End: 71-82-1013Tqshdq outpatient visit 15 minutesSteven A Rusher DPM Work Phone: [facility] PodiatryComment on above:Diabetic ulcer of toe associated with type 2 diabetes mellitus, with fat layer exposed, unspecifiedlaterality (HCC) (Primary Dx); Status post partial amputation of left foot (HCC); Angiopathy, diabetic (HCC); Diabetic polyneuropathy associated with type 2 diabetes mellitus (HCC)Start: 03-11-2025 End: 86-11-0726Svwtmu flowsheetSteven A Rusher DPM Work Phone: [facility] PodiatryStart: 03-11-2025 End: 82-70-3818Sxbchi flowsheetSteven A Rusher DPM Work Phone: [facility] PodiatryStart: 03-11-2025 End: 51-23-6058htrdvqlosyRFSASG A RUSHERNot AvailableStart: 78-38-9289cuioshkrjk [facility]ca [facility] HospitalStart: 01-09-2025 End: 00-76-9532Fxtjtj flowsheetSteven A Rusher DPM Work Phone: [facility] PODIATRYStart: 01-09-2025 End: 23-45-1788Hszxnq flowsheetSteven A Rusher DPM Work Phone: [facility] PODIATRYStart: 01-09-2025 End: 49-89-3327Vtumwkc encounter procedureSteven A Rusher DPM Work Phone: [facility] PODIATRYComment on above:Dermatophytosis of nail (Primary Dx); Dystrophic nail; Status post partial amputation of left foot (HCC); Angiopathy, diabetic (HCC); Diabetic polyneuropathy associated with type 2 diabetes mellitus (HCC)Start: 01-09-2025 End: 09-15-8992yvzffzayryNSZMDS A RUSHERNot AvailableStart: 01-01-2025 End: 19-92-5127lqmshyqhibGZQD O RANKERSelect Medical [facility], [facility] HospitalStart: 12-19-2024 End: 61-20-0575FglvbcZvmrkbvAlen GILLESPIE Work Phone: [facility] CardiologyComment on above:Med RefillStart: 11-14-2024 End: 01-71-4490Nahxjkkma department patient visitCOMMUNCHERRINGTON HOSPITAL HEALTH SERVICES ProMJohn F. Kennedy Memorial Hospitaltart: 11-12-2024 End: 11-73-2388ndgezkjceiJqnefMadison Health Ctr Work Phone: Start: 11-12-2024 End: 80-89-8048Etquaemy ReferredTemple University Health System DPM Work Phone: [facility]-LAB Path Spec [facility] HospStart: 11-04-2024 End: 84-31-0288mwurwawsodTLFCIY N [facility] HospitalStart: 11-04-2024 End: 82-34-0077lqtjaccqfeWCXWGW N MOSLEYSelect Medical [facility] Hospital, [facility] HospitalStart: 64-44-0783Anfjvhhyv for other preprocedural examinationVANDANA Awad [facility] Northtart: 10-15-2024 End: 70-93-7060Lxutakfxa encounterPhylicia Guo Physicians CardiologyComment on above:Surgical Or Dental ClearanceStart: 10-10-2024 End: 38-12-0494Edsytc outpatient visit 15 minutesMoagustin Whitlock MD Work Phone: [facility] Jobst Vascular SurgeryComment on above:Critical limb ischemia of left lower extremity with gangrene (CMS-HCC) (Primary Dx)Start: 10-10-2024 End: 29-13-4883lzgwiyovxbLFTNSFY [facility]ulatory PPGStart: 10-04-2024 End: 31-06-1989Spyjrw flowsheetSteven A Rusher DPM Work Phone: [facility]oms PODIATRYStart: 10-04-2024 End: 79-46-3895Dgjelo flowsheetSteven A Rusher DPM Work Phone: [facility] PODIATRYStart: 10-04-2024 End: 70-06-0314Pebsnj outpatient new 45 minutesSteven A Rusher DPM Work Phone: noms PODIATRYComment on above:Paronychia of great toe of right foot (Primary Dx); Angiopathy, diabetic (CMS/HCC); Diabetic polyneuropathy associated with type 2 diabetes mellitus (CMS/HCC); Status post partial amputation of left foot (CMS/HCC)Start: 10-04-2024 End: 84-60-6714clzriwfofmGMILCZ A RUSHERNot AvailableStart: 10-02-2024 End: 64-47-1137Tlzexi Priti LEON Work Phone: [facility] FB ORTHOPAEDICSStart: 10-02-2024 End: 58-63-9373Opxkct Priti LEON Work Phone: [facility] FB ORTHOPAEDICSStart: 10-02-2024 End: 41-24-5413sucwddvphvKQDQDEZ J MEYERNot AvailableStart: 10-02-2024 End: 35-69-6741Ocyiin outpatient new 45 minutesBebeto LEON Work Phone: n[facility] FB ORTHOPAEDICSComment on above:Acute pain of right knee (Primary Dx); Arthritis of right knee; Effusion of right kneeStart: 09-27-2024 End: 29-59-2375pdhuamrcynQZEGSLSBarney Children's Medical Center HospitalStart: 09-26-2024 End: 09-52-9041Igjhwy outpatient new 45 minutesMohamed Remigio Whitlock MD Work Phone: [facility] Vascular SurgeryComment on above:Critical limb ischemia of left lower extremity with gangrene ([facility]-HCC) (Primary Dx); PVD (peripheral vascular disease) ([facility]-HCC)Start: 09-26-2024 End: 28-88-8603yfedrjiirmFBCUVOG F [facility] PPGStart: 09-23-2024 End: 48-31-4561azszljmepxEPWYHC N MOSLEYSelect Medical [facility], [facility] HospitalStart: 09-13-2024 End: 38-43-7777Dpsvhtfvz department patient visitCOMATRIUM HEALTH UNION WEST HEALTH SERVICES [facility] Centertart: 09-04-2024 End: 11-87-8866Ztqqiz outpatient visit 15 minutesVandana Brar INSTRUMENTATION SUPERVISOR-GAS APPLIANCE REPAIRER Work Phone: [facility] Physicians CardiologyComment on above: Ventricular tachycardia ([facility]) (Primary Dx); AICD present, double chamber; Encounter for monitoring amiodarone therapy; Paroxysmal atrial fibrillation ([facility]); Typical atrial flutter ([facility]); V-tach ([facility]); Essential hypertensionStart: 09-04-2024 End: 95-68-2475Ghbkxzbf SupportUniversity Of Pennsylvania Health System PacerProMedica Physicians Cardiology Comment on above:AICD present, double chamber- Medtr[employer] (Primary Dx)Start: 09-03-2024 End: 32-59-7453Gesaalovo encounterMarisela Mcguire [facility] HEALTHProMedica Physicians CardiologyStart: 07-22-2024 End: 06-92-8675azyruikowzETQKT D [facility] HospitalStart: 07-12-2024 End: 73-94-9922WincigDkqy R Gray INSTRUMENTATION SUPERVISOR-GAS APPLIANCE REPAIRER Work Phone: [facility] CardiologyComment on above:Med Change RequestStart: 05-23-2024 End: 53-01-5572JnxavgVcrlhkk Fischer INSTRUMENTATION SUPERVISOR-GAS APPLIANCE REPAIRER Work Phone: Pro[facility] Clinicca Physicians CardiologyComment on above:Med RefillStart: 05-23-2024 End: 86-79-1587Dknnuv outpatient visit 15 minutesDillonmatilda LEON Work Phone: [facility] Pain Management ClinicComment on above:Lumbosacral spondylosis without myelopathy (Primary Dx) Start: 05-23-2024 End: 83-58-1714aidfwlpphcDUWXHQR S JUAN ANTONIOBarney Children's Medical Centertart: 05-09-2024 End: 40-25-0803pkrtezsniyLKYWP A ANGLIMSelect Medical [facility] Rehabilitation Hospital, [facility] HospitalStart: 05-03-2024 End: 38-84-5427jrczrezcxtUYVMIWM E HOGANSelect Medical [facility] Clinic Rehabilitation [facility], [facility] HospitalStart: 04-16-2024 End: 73-67-3717Xsjztlauo department patient visitCOMMUNCHERRINGTON HOSPITAL HEALTH SERVICES ProMJohn F. Kennedy Memorial Hospitaltart: 04-09-2024 End: 32-90-6087Wughig outpatient visit 25 minutesBebeto LEON Work Phone: [facility] - Pain Management ClinicComment on above:Lumbosacral spondylosis without myelopathy (Primary Dx) Start: 04-09-2024 End: 64-06-1223jmhgmgauvzZTWOIEU S JUAN ANTONIOBarney Children's Medical Centertart: 04-01-2024 End: 91-32-0434apumhwnhcvONBVWKH S [facility] Hospitaltart: 02-22-2024 End: 59-70-9492Eigakc outpatient visit 25 minutesBebeto LEON Work Phone: [facility] Pain Management ClinicComment on above:Lumbosacral spondylosis without myelopathy (Primary Dx); Disc displacement, lumbar; Lumbar radiculopathy, chronicStart: 02-22-2024 End: 38-98-4339bkzckybnlcXGDRYZG S CHAUNCEYSelect Medical [facility], [facility] HospitalStart: 02-21-2024 End: 38-18-2203GhtzhkSrlvcanc Bialecki INSTRUMENTATION SUPERVISOR-GAS APPLIANCE REPAIRER Work Phone: [facility] Physicians CardiologyComment on above:Med RefillStart: 01-17-2024 End: 72-31-9471Jaxywldfp encounterDi [facility] Pain [facility] ClinicStart: 01-11-2024 End: 51-93-0253Rhfbuqedm encounterSbolivar Reyez [facility] ClinicStart: 01-09-2024 End: 34-46-8040Rhrpvf outpatient new 30 minutesBebeto LEON Work Phone: [facility] Pain Management ClinicComment on above:Lumbar spondylolysis (Primary Dx)Start: 11-14-2022 End: 55-29-6633kfjyhnorugPRFTF D HIGHLANDERFacility:B0Jnbma: 10-24-2022 End: 27-82-4471iofewmmthrLTVME D HIGHLANDERFacility:G6Apwgv: 10-03-2022 End: 66-19-1823zvfugzobwxFZZFN D HIGHLANDERFacility:W0Kslqe: 09-12-2022 End: 43-91-8255klzlniphihBJWAOZBG CULLENFacility:K1Vzueo: 08-23-2022 End: 39-88-9957xzuhdgzqnsOBXQJ D HIGHLANDERFacility:S7Xhsvt: 08-16-2022 End: 58-08-0736gyujbbkcyoFZZNX D HIGHLANDERFacility:Z1Pwdfu: 08-09-2022 End: 96-74-6388zpfxilyggbFBSMI D HIGHLANDERFacility:H1 Procedures DateProcedureProcedure DetailPerforming ClinicianStart: 69-08-8893Vshdoukgwxdfsv aspir&/inj major jt/bursa w/o usMamatilda LEON Work Phone: Start: 87-35-5916Jmf routine ecg w/least 12 lds w/i&r Vandana Brar INSTRUMENTATION SUPERVISOR-GAS APPLIANCE REPAIRER Work Phone: Start: 63-81-4418Ogbuot-up visitFollow-Darrian BRARStart: 60-42-1729Lsluztqvmhnm [Mass/volume] in Urine by Test Ronn LEON Work Phone: Plan of Treatment DateCare ActivityDetailAuthorStart: 43-44-8837Tpsinxq ScreeningTobacco Screening [facility] Centertart: 78-45-6491Eltla BMI ScreeningAdult BMI Screening [facility] Centertart: 62-09-1308Byjlx BMI ScreeningAdult BMI Screening [facility] Centertart: 66-12-5836Hdhdzmv ScreeningTobacco Screening [facility] Centertart: 11-92-3842Kgeob BMI ScreeningAdult BMI Screening [facility] Centertart: 43-57-3937Kiesoej ScreeningTobacco Screening [facility] Centertart: 96-27-1756Tjiid BMI ScreeningAdult BMI Screening [facility] Centertart: 99-20-5590Sfdvlqi ScreeningTobacco Screening [facility] Centertart: 12-98-4017Hkuqn BMI ScreeningAdult BMI Screening [facility] Centertart: 01-87-8771Qejarpi ScreeningTobacco Screening [facility] Centertart: 15-02-8424Zrtctzb ScreeningTobacco Screening [facility] Centertart: 05-05-2025 End: 67-85-6240Xlimwcu encounter /03/2025 2:15 PM EST Procedure Visit [facility] [address] [place] [place] [phone] Edilson Guzman DPM [address] [place] [address] [facility]iatryStart: 04-16-2025 End: 2272Hhlsrbk encounter /15/2025 3:30 PM EDT Office Visit [facility] [address] [place] [address] Edilson Guzman DPM [address] [place] [address] [facility] PodiatryComment on above:ArrivedStart: 04-16-2025 Adult BMI ScreeningAdult BMI ScreeningDayton [facility] SystemStart: 04-14-2025 End: 85-29-2571Qvpopmm encounter procedureNOPEMISCOT MEMORIAL HEALTH SYSTEMS PODIATRYStart: 38-91-7751Bhinu BMI ScreeningAdult BMI ScreeningDayton VA Medical Center SystemStart: 18-98-5991Rjxvpqo ScreeningTobacco ScreeningCommunity Memorial Hospitalca [facility] SystemStart: 03-11-2025 End: 07-54-9958Ujtfydo encounter zluzdbajd51/09/2025 2:15 PM EDT Office Visit [facility] [address] [place] [phone] Edilson Guzman DPM [address] [place], [place] [id number] ArrivedNOBrown County Hospital PodiatryComment on above:ArrivedStart: 03-03-2025 Influenza vaccinationPRIMARY CHILDR[facility] HealthcareStart: 20-72-6177Zxade BMI ScreeningAdult BMI ScreeningDayton VA Medical Center SystemStart: 41-04-1401Cgjbmya ScreeningTobacco ScreeningDayton VA Medical Center SystemStart: 01-09-2025 End: 40-67-1355Tciwwrd encounter procedureNOPEMISCOT MEMORIAL HEALTH SYSTEMS PODIATRYComment on above: ArrivedStart: 53-71-0050Lqfvc BMI ScreeningAdult BMI ScreeningDayton VA Medical Center SystemStart: 32-18-4177Blujcyo ScreeningTobacco ScreeningPeoples Hospital Health System Start: 11-04-2024 End: 48-96-3502Jcxxlik encounter procedureProMercy Health [facility] - Stress ImagingStart: 10-04-2024 End: 42-33-8541Etoplfe encounter procedureNOPEMISCOT MEMORIAL HEALTH SYSTEMS PODIATRYComment on above: ArrivedStart: 09-26-2024 End: 49-66-8635Syilxju encounter vahrsxtfu47/27/2025 9:40 AM EDT Office [facility] [address] [place] [phone] Gretta Whitlock MD [address], [address] [address] [facility] Vascular SurgeryStart: 09-16-2024 End: 92-47-3894Ntemzda encounter uwrjqcnqa06/17/2025 11:00 AM EDT Appointment [facility] [address] [place] [address] Vandana Brar, INSTRUMENTATION SUPERVISOR-GAS APPLIANCE REPAIRER [address] [place] [address] [facility] - Pulmonary FunctionStart: 09-04-2024 End: 54-44-2727Uwcuuzg encounter lbjyivwzb16/05/2025 2:30 PM EST Office Visit [facility] [address] [place] [address] Vandana Brar, INSTRUMENTATION SUPERVISOR-GAS APPLIANCE REPAIRER [address] [place] [address] [facility] CardiologyStart: 09-04-2024 End: 03-99-2423Fzrckwes Kdzbxen4709/04/2024 1:15 PM EST Clinical Support [facility] [address] [place] [address] [facility] CardiologyStart: 07-24-2024 End: 58-31-1002Svqjwbqh SupportProMedica Physicians CardiologyStart: 07-04-2024 End: 11-38-9585Lfbusgr encounter uxuthkcog06/02/2025 10:00 AM EST Office Visit [facility] [address] [place] [phone] Bebeto Romano, EDWARD [address] [place], [place] [phone] [facility] ClinicStart: 05-23-2024 End: 29-16-3248Lqrojzb encounter emluccvjk16/21/2024 12:45 PM EST Office Visit [facility] [address] [facility] [address] Bebeto Romano PA [address] [place] [address] [facility] ClinicStart: 05-03-2024 End: 17-03-3928Vvlrgpbxg to same day surgery cynlfe5305/03/2024 8:58 AM EDT - 05/03/2024 9:06 AM EDT Surgery [facility] Pain P rocedures [address] [facility] [phone] Alber Hyde MD [address] [place] [phone] INJECTION BLOCK NERVE MEDIAL BRANCH: bilat L45 51 [95809 (CPT )][facility] - Pain ProceduresComment on above:INJECTION BLOCK NERVE MEDIAL BRANCH: bilat L45 51 [04250 (CPT )]Start: 05-03-2024 End: 73-70-4492Eoo dx/ther agt pvrt facet jt lmbr/sac 1 levelINJECTION BLOCK NERVE MEDIAL BRANCH Lumbosacral spondylosis without myelopathy 05/03/2024 8:58 AM EDTFREMONT PAINStart: 51-91-8186Oflmcafzzq hospital visit by physician 05/03/2024 8:58 AM EDT Hospital Encounter [facility] Procedures [address] [place] [address] Alber Hyde MD [address] [place], [place] [phone] [facility] Pain ProceduresStart: 21-66-2038Yesnu screening for proteinUrine MicroalbuminCommunity Memorial Hospitalca [facility] SystemStart: 04-04-2024 End: 09-07-6767Hfcxrvk encounter uhzlcnivd91/03/2024 1:15 PM EDT Appointment [facility] Imaging [address] [place] [address] Bebeto Romano PA [address] [place], [place] [address] [facility] MRI ImagingStart: 81-23-6195FSCQC-19 Vaccine ( season)COVID-19 Vaccine ()[facility] SystemStart: 57-56-2177JCNIM-19 Vaccine ()COVID-19 Vaccine ()[facility] SystemStart: 94-82-1809Aavnwpzju vaccinationInfluenza VaccineDayton VA Medical Center SystemStart: 02-22-2024 End: 08-87-9107Khoclsz encounter lzdvqsify00/22/2024 2:45 PM EDT Office Visit [facility] [address] [place] [address] Bebeto Romano PA [address] [place], [place] [address] [facility] ClinicStart: 56-72-0442Luoczbkxjggb Vaccine: 65+ Years (2 of 2 - PCV)Pneumococcal Vaccine: 65+ Years (2 of 2 - PCV)[facility] HealthcareStart: 69-03-3332RDFJC-19 Vaccine ( season)COVID-19 Vaccine ( season)[facility] SystemStart: 64-64-7794Vhcmqgewf aortic aneurysm screeningAbdominal Aortic Aneurysm (AAA) ScreenDayton VA Medical Center System Start: 83-54-9190Kdpr Risk ScreeningFall Risk ScreeningAv[facility] Start: 20-24-2954Tvmucrthfwrdmw of varicella zoster vaccineZoster (Shingles) Vaccine (1 of 2)[facility] SystemStart: 84-66-7450ONwH,Tdap and Td Vaccines (1 - Tdap)DTaP,Tdap and Td Vaccines (1 - Tdap)[facility] Start: 62-97-8876Tbesl BMI Follow Up PlanAdult BMI Follow Up PlanProAdena Fayette Medical Centertart: 39-74-5693Civdnuer foot examinationDiabetic Foot Exam [facility]: 52-16-1345Pvbdatnadl ScreeningDepression Screening [facility]: 47-12-5862Ptxyvxch screeningDiabetic Ophthalmology ExamNovant Health [facility] Medical Centertart: 1955Medicare Annual Wellness Visit Medicare Annual Wellness VisitNovant Health [facility] Medical Centertart: 11-75-3878Coaihcygq for malignant neoplasm of colonCox North End: 48-26-3594BS Lumbar spine WO contrastMR lumbar spine without contrast Imaging Routine Lumbar radiculopathy, chronic 1 Occurrences starting 02/22/2024 until 02/21/2025[facility] Work Phone: Comment on above:1 Occurrences starting 02/22/2024 until 02/21/2025 End: 52-11-2077Wufvsxbpw function test Complete PFT w/ BD (Spirometry (Flow Volume Loop) pre/post short acting bronchodilator w/ DLCO (diffusion study) and Lung Volume)Pulmonary function test Complete PFT w/ BD (Spirometry (Flow Volume Loop) pre/post short acting bronchodilator w/ DLCO (diffusion study) and Lung Volume) PFT Routine Encounter for monitoring amiodarone therapy 1 Occurrences starting 09/04/2024 until 09/04/2025[facility] Work Phone: Comment on above:1 Occurrences starting 09/04/2024 until 09/04/2025 Immunizations Immunization DateImmunizationNotesCare GvvyorybZoazafpg31-47-6754efyiwdlim virus vaccine, unspecified formulationMamatilda LEON Work Phone: [facility] HospitalZujimg27-25-0743ezabtfqfxfcf polysaccharide vaccine, 23 valentSteven Megan DP Work Phone: [facility] NorthNnausqpkss36-78-9950oiqqpswhgv skin test; purified protein derivative solution, intradermalStevsb Guzman DP Work Phone: [phone] [place], [place] [address]Vtgeybwzuk25-25-1341jfkxfvsfad skin test; purified protein derivative solution, intradermalSteven Rusher DPM Work Phone: [phone] NorthHkshakvext92-14-4560kggunkrct, injectable, quadrivalent, preservative freeMatthew Nienberg PA Work Phone: [facility] HospitalRmwatr77-12-0708zrhwbbzyaa skin test; purified protein derivative solution, intradermalSteven Rusher DPM Work Phone: [phone] [place], [place] [address]Tfiochzgxl27-14-7461ylmvgdomss skin test; purified protein derivative solution, intradermalSteven Rusher DPM Work Phone: [phone] NorthYxeqtwscel31-49-3348byjgeykzqn skin test; purified protein derivative solution, intradermalSteven Rusher DPM Work Phone: [phone] NorthFnbenjccrg46-59-3726Qfvjusyrq, injectable, Madin Kristina Canine Kidney, preservative free, quadrivalentMatthew Nienberg PA Work Phone: [facility] HospitalSigdbe92-78-8859bnynwejzs, seasonal, injectable, preservative freeMatthew Nienberg PA Work Phone: [facility] HospitalAmenuk41-47-7923mmgswpmqf, seasonal, injectable, preservative freeMatthew Nienberg PA Work Phone: [facility] HospitalPayxej64-80-3719njlsfatdq, seasonal, injectableMatthew Nienberg PA Work Phone: [facility] Payers DatePayer CategoryPayerPolicy [id number]-pay2017Medicaid [id number] 1993Medicare [id number] [id number] [id number] [id number] 2.16.840.1.651863.3.57[id number] 2.16.840.1.518040.3.57[id number] 2.16.840.1.816620.3.57[id number] 2.16.840.1.171384.3.57[id number] 2.16.840.1.590510.3.57[id number] 2.16.840.1.637337.3.57[id number] 2.16.840.1.415305.3.57[id number] 2.16.840.1.342106.3.57[id number] 2..840.1.663009.3.57[id number] 2.16.840.1.610574.3.57[id number] 2..840.1.932433.3.57[id number] 2.16.840.1.621099.3.57[id number] 2.16.840.1.517326.3.579.2.[id number] 2.16.840.1.815990.3.579.[id number] 2.16.840.1.719556.3.57[id number] 2.16.840.1.275789.3.579.2.49[id number] 2.16.840.1.701063.3.57[id number] 2.16.840.1.886986.3.579.2.56[id number] 2..840.1.358835.3.579.2.630963-87-8701Ypzdizv760263879 2.16840.1.792906.3.579.2.35[id number] 2.840.1.792941.3.579.[id number] 2.840.1.813407.3.57[id number] 2.840.1.101201.3.579.2.356841-46-1580Lrqzbtw24067548 2.840.1.979661.3.57[id number] 2.840.1.228950.3.579.2.756495-37-0981Kujxkkb89056735 2.840.1.289544.3.57[id number] 2.16840.1.231507.3.579.2.276175-37-0770Reeekky35136467 2.16840.1.240005.3.57[id number] 2.16.840.1.504618.3.57[id number] 2.16.840.1.394925.3.579.2.232399-19-0920Jajwghh06018084 2.16.840.1.872349.3.57[id number] 2.16.840.1.989694.3.579.2.665719-09-2420Kahacqk95721166 2.16.840.1.159299.3.57[id number] 2.16.840.1.444126.3.579.2.682202-07-3188Pltwkpd7340928 2.16.840.1.040449.3.579.2.1259MedicareMedicare [id number] s0914sc5-t75r-[id number] 2.16.840.1.114591.3.579.2.531 Social History DateTypeDetailFacilityStart: 01-09-2024 End: 76-25-9247Wxkejih smoking status NHISEx-smokerDay[facility] System History of tobacco useCurrent smokerDayton VA Medical Center SystemHistory of tobacco useCigarette SmokerDayton [facility] Medical Center SystemStart: 01-09-2024 End: 80-13-1683Teyrnsg use and exposureSmokeless tobacco non-userDayton VA Medical Center SystemStart: 05-23-2024 End: 98-97-3401Iatelauul beverage intakeCurrent non-drinker of alcohol (finding) [facility] SystemStart: 05-23-2024 End: 05-67-1070Yohpvwn of Social functionDayton VA Medical Center SystemStart: 05-23-2024 End: 06-87-2448Ahcqkut use panelNov[facility] Medical Centertart: 09-14-2022 ChildcareUnknownPKimberlyn [facility] SystemStart: 32-76-4378Rof assigned at birthNot on fileDayton VA Medical Center SystemStart: 02-05-2015 End: 92-91-6399GmoQmoc (finding)[facility] SystemTobacco smoking status NHISTobacco smoking consumption unknownNOMS HealthcareStart: 10-02-2024 End: 19-63-7274Ssuenvytd beverage intakeEx-drinker (finding)[facility] Start: 08-52-5559Tvt Assigned At [facility] Medical Equipment Procedure CodeEquipment CodeEquipment Original TextEquipment IdentifierDatesLd Pcng 55cm Rv Sq Scr S Df-4 - [id number] - [id number]: 11-20-2018 Lead Capsure Fix Novus 5076-45 - [id number] - [id number]: 58-18-8674Gcqm Capsure Fix Novus 5076-52 - [id number] - [id number] Start: 78-40-8455Uind Crd Evera Mri Xt Dr - [id number] - [id number] Start: 76-27-2355Tvu Crd Rvl Linq Rpl [id number] - [id number] - [id number]: 76-50-6820Tawaf: 01-20-2018 Goals DatePatient GoalDesired Activity/StatePersonal health goalComment on above: Evaluation of progress towards goal: discharge home with roman catholic/friends support. Personal health goalComment on above: Evaluation of progress towards goal: plan home self carePersonal health goal Comment on above: Evaluation of progress towards goal: Patient likely will discharge to a SNF Clinical Notes 08-09-2022 to 04-16-2025 Note Date & MsixMsumEbhrjzak47-43-9807 History of Present illness Narrative* Edilson Guzman DPM - 04/16/2025 3:30 PM EDT Images from [...] foot obtained in the weight-bearing position, utilizing [place]annock device. Foam impressions and tracings of the [...] understanding. Edilson Guzman DPM documented in this encounterCox NorthLdvzwsgcsl21-22-5678 History of Present illness Narrative* Edilson Guzman DPM - 03/11/2025 2:15 PM EDT Images from the original note [...] this, last visit was yesterday. PCP: Bradley MONTESINOS 12/2024, A1C: n/a, BS: 130). HPI Returns [...] Patient will continue wound care measures with [facility] care services. Follow up: Accordingly to [...] understanding. Edilson Guzman DPM documented in this [facility]09-09-2025 Instructions* Patient Instructions* Edilson Guzman DPM - 03/11/2025 2:15 PM EDT As noted documented in this [facility]07-10-2025 History of Present illness Narrative* Edilson Guzman DPM - 01/09/2025 1:30 PM EDT Images from the original note [...] digit in october. PCP: Dr. Bejarano LV 09/30/24, A1C: 8.7, BS: 132). HPI Presents [...] understanding. Edilson Guzman DPM documented in this [facility]07-10-2025 Instructions* Patient Instructions* Edilson Guzman DPM - 01/09/2025 1:30 PM EDT As noted documented in this [facility]06-19-2025 Miscellaneous Notes* Telephone Encounter - Mariana Interiano RN - 12/19/2024 10:52 AM EDT Images from the original note were not included. Last OV 09/04/2024 CMP and CBC 11/14/2024 documented in this encounterCommunity Memorial HospitalYapmo06-19-2025 Telephone encounter Note* Telephone Encounter - Mariana Interiano RN - 12/19/2024 10:52 AM EDT Images from the original note were not included. Last OV 09/04/2024 CMP and CBC 11/14/2024 [facility] HealthcareLifeline BiotechnologiesRaaqyr89-28-9382 Miscellaneous Notes* Telephone Encounter - Phylicia Torres LPN - 10/15/2024 11:55 AM EDT Surgeon: Dr Gutiérrez Type of surgery: lt transmetatarsal amputation with delayed primary closure of ulceration Date of surgery: pending Surgery location: [facility] Type of anesthesia: general On a blood thinner?: xarelto Indication? At Fib On an antiplatelet?: asa Stent? no Date of last EK09/04/24 Last office visit date and who they saw: AM 09/04/24 Their preference of how long to hold blood thinners/antiplatelet: per cardiology recommendations History of CVA/TIA, DVT/PE? no * Telephone Encounter - JOSE MIGUEL Ribeiro - 10/15/2024 11:55 AM EDT Can not complete at least 4 Mets of activity 2/2 mobility issues. Will need nuclear stress for cardiac clearance. If nuclear stress normal, can hold aspirin 3-5 days preop and Xarelto 48 hours preop with resumption of both medications as soon as possible postoperative once deemed safe by surgeon. Thank you * Telephone Encounter - Phylicia Torres LPN - 10/15/2024 11:55 AM EDT Pt scheduled for lexiscan at PM 11/04/24 documented in this [facility]Av[facility]-15-2025 Telephone encounter Note* Telephone Encounter - Phylicia Torres LPN - 10/15/2024 11:55 AM EDT Surgeon: Dr Gutiérrez Type of surgery: lt transmetatarsal amputation with delayed primary closure of ulceration Date of surgery: pending Surgery location: [facility] Type of anesthesia: general On a blood thinner?: xarelto Indication? At Fib On an antiplatelet?: asa Stent? no Date of last EK09/04/24 Last office visit date and who they saw: AM 09/04/24 Their preference of how long to hold blood thinners/antiplatelet: per cardiology recommendations History of CVA/TIA, DVT/PE? no [facility]04-15-2025 Telephone encounter Note* Telephone Encounter - JOSE MIGUEL Ribeiro - 10/15/2024 11:55 AM EDT Can not complete at least 4 Mets of activity 2/2 mobility issues. Will need nuclear stress for cardiac clearance. If nuclear stress normal, can hold aspirin 3-5 days preop and Xarelto 48 hours preop with resumption of both medications as soon as possible postoperative once deemed safe by surgeon. Thank you [facility]04-15-2025 Telephone encounter Note* Telephone Encounter - Phylicia Torres LPN - 10/15/2024 11:55 AM EDT Pt scheduled for lexiscan at PM 11/04/24 [facility]04-10-2025 Evaluation + Plan note* Assessment & Plan Note - Gretta Whitlock MD - 10/10/2024 11:08 AM EDTAssociated Problem(s): Critical limb ischemia of left lower extremity with gangrene ([facility]-HCC) PVR. Continue best medical therapy with aspirin and statin. [facility]04-10-2025 Miscellaneous Notes* Assessment & Plan Note - Gretta Whitlock MD - 10/10/2024 11:08 AM EDTAssociated Problem(s): Critical limb ischemia of left lower extremity with gangrene ([facility]-HCC) PVR. Continue best medical therapy with aspirin and statin. documented in this encounterAvita [facility]04-10-2025 History of Present illness Narrative* Gretta Whitlock MD - 10/10/2024 11:00 AM EDT Images from the original note were not included. To: [facility] HPI: Tomas Frausto is a 69 [...] I discussed with him that he might notneed a TMA however I defer to podiatry.. [...] total) by mouth in the morning. 90 tablet3 aspirin 81 mg Take 1 tablet (81 [...] pectoris Arrhythmia Atrial fibrillation (CMS-HCC) Atrial flutter ([facility]-HCC) Atrial flutter ([facility]-HCC) Benign prostatic hyperplasia BPH with urinary obstruction Cancer (CMS-HCC) skin cancer Cataract Constipation Coronary artery disease Dental disease no teeth Diabetes mellitus (CMS-HCC) Diabetes mellitus type 2, controlled ([facility]-HCC) Hypercholesterolemia Hypertension Myositis Peripheral neuropathy Rash Scalp wound Urinary incontinence Ventricular tachycardia ([facility]-HCC) Visual impairment glasses Past Surgical History: Past Surgical History: Procedure Laterality Date 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; excision and debridement Left 10/29/2021 Performed by Ambrosio Al MD at [facility] AMPUTATION TOE 4TH & 5TH/WIDE INCISIONAL DEBRIDEMENT LEFT DIABETIC FOOT NECROTIZING FASCITIS Left 08/12/2021 Performed by Ambrosio Al MD at [facility] ANGIO LOWER EXT Left 09/27/2024 Performed by Gretta Whitlock MD at [facility] CARDIAC DEFIBRILLATOR PLACEMENT medtronic CATARACT EXTRACTION Coronary angiogram and left ventricular gram/pressure N/A 11/19/2018 Performed by Sage Jay MD at [facility] Coronary fractional flow reserve N/A 11/19/2018 Performed by Sage Jay MD at [facility] CYSTOSCOPY [facility] SOLUTION N/A 10/27/2021 Performed by Frederic Thorne MD at [facility] DC ICD RA lead replace - MDT N/A 07/21/2020 Performed by Yoni Espinoza MD at [facility] (EP) EP - Device DC ICD Left 11/20/2018 Performed by Shayna Betancourt MD at [facility] (EP) EP - Diagnostic-- EP study Right 11/16/2018 Performed by Rafita Garcia MD at [facility] (EP) INJECTION BLOCK NERVE MEDIAL BRANCH: bilat L 10/05, 10/31 Bilateral 05/03/2024 Performed by Alber Hyde MD at [facility] Loop recorder implant N/A 11/16/2018 Performed by Rafita Garcia MD at [facility] (EP) Loop recorder removal N/A 07/21/2020 Performed by Yoni Espinoza MD at [facility] (EP) Percutaneous angioplasty tibia/per initial vessel left Left 09/27/2024 Performed by Gretta Whitlock MD at [facility] Percutaneous angioplasty tibia/per initial vessel/EACH ADDITIONAL Right 09/27/2024 Performed by Gretta Whitlock MD at [facility] SKIN CANCER EXCISION [...] Interpersonal Safety: Unknown (08/24/2023) Received from [facility] [place] [facility] Environment Fear of [...] CUFF SIZE: M (9-13 inches)) Pulse 59 Ht175.3 cm (5' 9 ) Wt 81.6 kg [...] Gretta Whitlock MD, RONNIE, RPVI, FSVS, FACS [facility] This note was created with the assistance of a speech recognition program. While intending to generate a timely document that accurately reflects the content of the visit, no guarantee can be provided that every grammatical or spelling mistake has been or will be identified or corrected. Thank you for your understanding. documented in this encounterProMedica Health Ytjvaw69-74-9957 History of Present illness Narrative* Edilson Guzman, DOUGM - 10/04/2024 11:30 AM EDT Images from the original note were not included. Subjective Patient ID: Tomas Frausto is a 69 y.o. male who presents for Toe Pain (Tomas Frausto 69yo New Patientlast seen 07/12/2021. Patient is diabetic. Concerns of Right great toenail infection, patient relates drainage, thick and painful. Patient is seeing wound care in [place] for possible partial amputation of left foot, due to non-healing after amputation surgery 3 years ago, in [place]. Currently taking cephalexin for left foot infection. [...] understanding. Edilson Guzman DPM documented in this [facility]04-04-2025 Instructions* Patient Instructions* Edilson Guzman DPM - 10/04/2024 11:30 AM EDT As noted documented in this [facility]04-02-2025 History of Present illness Narrative* EDWARD Hills - 10/02/2024 1:00 PM EDTAssociated Order(s): L Inj/Asp: R knee Post-Procedure Diagnose(s): Arthritis of right knee; Effusion of right knee Images from the original note were not included. NAME: Tomas Frausto : 1955 HISTORY OF PRESENT ILLNESS: NEW PT Tomas Frausto is an 69 y.o. @ male. (NEW PT) [facility] BEJARANO REFERRAL. RT KNEE PAIN 09/11/24 (3 WKS), WENT TO [facility] ER 09/13, HAD XR AND GIVENKNEE IMMOBILIZER. XRAY [facility] 09/13/24 WORE KNEE IMMOBILIZER FOR A COUPLE DAYS. PRESENTS IN WC TODAY. USES WALKER AT HOME. USED WC FOR DISTANCE. PAIN DIFFUSE IN KNEE. DENIES RADIATION. INTERMITTENT PAIN. +TYL. USED ICE ONCE. DENIES N/T. +SWELLING. KNEE POPPED ONCE GOING UP THE STEPS. +GIVING OUT SENSATION. DOES NOT WAKE AT HS. *ON XARELTO PAST MEDICAL HISTORY: Past Medical History: Diagnosis Date Diabetes ([facility]) H/O blood clots PAST SURGICAL HISTORY: [...] as the nail is pushing from shoe li marlyn overgrown. No evidence of streaking or ulcer. Skin: Warm and dry, no rash. Neurological: Notable paresthesias in bilateral feet, right noted for diabetic neuropathy. Other observations: Pain is present with standing and overuse. Patient localizes pain to the medialjoint line. The left foot was not examined. [...] IN RIGHT KNEE, NEUROVASC INTACT S/P INJ, TOLERATEDWELL Procedure, treatment alternatives, risks and benefits explained, [...] and flexion. The x-ray from 09/13/2024 at [facility] shows tricompartmental arthritic changes. Treatment plan: A cortisone injection was discussed and administered today. Clinical decision making: Further treatment will be held until he is released from his left foot surgery. Right knee arthritis. The patient has been complaining of knee aching and pain consistent with arthritis. The x-ray from 09/13/2024 at [facility] shows tricompartmental arthritic changes. He has pain on end range ofmotion with terminal flexion and extension, and limited 4 degrees in terminal extension and flexionto approximately 115 degrees. Treatment plan: A cortisone injection was administered today. Clinical decision making: Further treatment will be held until he is released from his left foot surgery. Paronychia. Inspection of his foot revealed a chronically thickened nail on the great toe with slight erythema and purulent drainage, concerning for paronychia. Treatment plan: He follows with a local community coordinator for high school and is recommended to have a prompt appointment for evaluation of his right great toe, likely needing nail trimming and potential antibiotics given his history of chronic wounds. Follow-up: Prompt appointment with local community coordinator for high school for evaluation of right great toe. PROCEDURE [...] for requiring urgent evaluation. documented in this encounterCox NorthOvhfdvwuie61-20-3903 Evaluation + Plan note* Assessment & Plan Note - Gretta Whitlock MD - 09/26/2024 9:53 AM EDT Associated Problem(s): Critical limb ischemia of left lower extremity with gangrene (CMS-HCC) Left lower extremity angiogram and intervention [facility]03-27-2025 Miscellaneous Notes* Assessment & Plan Note - Gretta Whitlock MD - 09/26/2024 9:53 AM EDTAssociated Problem(s): Critical limb ischemia of left lower extremity with gangrene ([facility]-HCC) Left lower extremity angiogram and intervention documented in this encounterAvita [facility]03-27-2025 History of Present illness Narrative* Gretta Whitlock MD - 09/26/2024 9:40 AM EDT Images from the original note were not included. To: [facility] HPI: Tomas Frausto is a 69 y.o. male with Left lower extremity critical limb ischemia with nonhealing toe amputation sites and noninvasive testing shows multilevel occlusive disease mostly at the level ofthe SFA and the tibial vessels. He has [...] total) by mouth in the morning. 90 tablet3 aspirin 81 mg Take 1 tablet (81 [...] Past Medical History: Diagnosis Date Angina pectoris ([facility]) Arrhythmia Atrial fibrillation ([facility]-HCC) Atrial flutter ([facility]-HCC) Atrial flutter ([facility]-HCC) Benign prostatic hyperplasia BPH with urinary obstruction Cancer (CMS-HCC) skin cancer Cataract Constipation Coronary artery disease Dental disease no teeth Diabetes mellitus (CMS-[facility]) Diabetes mellitus type 2, controlled ([facility]) Hypercholesterolemia Hypertension Myositis Peripheral neuropathy Rash Scalp wound Urinary incontinence Ventricular tachycardia ([facility]) Visual impairment glasses Past Surgical History: Past Surgical History: Procedure Laterality Date 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; excision and debridement Left 10/29/2021 Performed by Ambrosio Al MD at [facility] AMPUTATION TOE 4TH & 5TH/WIDE INCISIONAL DEBRIDEMENT LEFT DIABETIC FOOT NECROTIZING FASCITIS Left 08/12/2021 Performed by Ambrosio Al MD at [facility] CARDIAC DEFIBRILLATOR PLACEMENT medtronic CATARACT EXTRACTION Coronary angiogram and left ventricular gram/pressure N/A 11/19/2018 Performed by Sage Jay MD at [facility]ATH [facility] Coronary fractional flow reserve N/A 11/19/2018 Performed by Sage Jay MD at [facility] CYSTOSCOPY [facility] SOLUTION N/A 10/27/2021 Performed by Frederic Thorne MD at [facility] DC ICD RA lead replace - MDT N/A 07/21/2020 Performed by Yoni Espinoza MD at [facility] (EP) EP - Device DC ICD Left 11/20/2018 Performed by Shayna Betancourt MD at [facility] (EP) EP - Diagnostic-- EP study Right 11/16/2018 Performed by Rafita Garcia MD at [facility] (EP) INJECTION BLOCK NERVE MEDIAL BRANCH: bilat L 4/, 10/31 Bilateral 05/03/2024 Performed by Alber Hyde MD at [facility] Loop recorder implant N/A 11/16/2018 Performed by Rafita Garcia MD at [facility] (EP) Loop recorder removal N/A 07/21/2020 Performed by Yoni Espinoza MD at [facility] (EP) SKIN CANCER EXCISION Social [...] Interpersonal Safety: Unknown (08/24/2023) Received from [facility] [place] [facility] Fear of [...] ischemia of left lower extremity with gangrene ([facility]) - Primary Current Assessment & Plan Left lower extremity angiogram and intervention Tomas was seen today for new patient referral for bilateral lower extremities blood . Diagnoses and all orders for this visit: Critical limb ischemia of left lower extremity with gangrene ([facility]) PVD (peripheral vascular disease) ([facility]) - [facility] [place] Gretta Whitlock MD, RONNIE, RPVI, FSVS, FACS [facility] This note was created with the assistance of a speech recognition program. While intending to generate a timely document that accurately reflects the content of the visit, no guarantee can be provided that every grammatical or spelling mistake has been or will be identified or corrected. Thank you for your understanding. documented in this encounterAvita Health [facility]03-05-[facility]25 History of Present illness Narrative* Vandana Brar, INSTRUMENTATION SUPERVISOR-GAS APPLIANCE REPAIRER - 09/04/2024 2:30 PM EST Tomas Frausto Date of visit: 09/04/2024 Date of : 1955 Age: 69 y.o. 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, with long-term current use of insulin [place] Atrial fibrillation with RVR ([facility]) V-tach ([facility]) Atherosclerosis of knik coronary artery of knik heart without angina pectoris Pure hypercholesterolemia AICD present, double chamber- Medtronic Atrial flutter ([facility] Paroxysmal atrial fibrillation ([facility]) Myositis Diabetic peripheral neuropathy associated with type 2 diabetes mellitus ([facility] Hematuria, gross Non-healing surgical wound Degenerative changes of anterior chamber angle Diabetic autonomic neuropathy ([facility]) Diabetic renal disease ([facility]) Essential hypertension Hypomagnesemia Lower urinary tract symptoms due to benign prostatic hyperplasia Osteomyelitis ([facility]) Angina pectoris ([facility]) Lumbosacral spondylosis without myelopathy No Known Allergies Current Outpatient Medications Medication Sig Dispense Refill acetaminophen (TYLENOL ARTHRITIS) 650 mg 8 hr tablet Take 1 tablet (650 mg total) by mouth every 8 (eight) hours as needed for pain. amiodarone (PACERONE) 200 mg tablet Take 1 tablet (200 mg total) by mouth in the morning. 90 tablet3 aspirin 81 mg Take 1 tablet (81 [...] was not recognized until a year later whenhe presented to [facility]. Suspected dislodged lead was causing AF which would stimulate monomorphic VT with subsequent ICD shocks. RA lead revision 07/21/2020 with loop explantation, amiodarone initiated. LHC 11/19/2018 showed single-vessel CAD (proximal LAD 60% stenosis) with negative FFR of 0.82, normal L SF TTE 02/19/2021 shows LVEF 50-55%, moderate LAE, mild RA AE, trace AI, [id number] MR, mild TR,RVSP 31 mm Hg Current cardiac medication regimen amiodarone 200 mg daily, aspirin 81 mg daily, Toprol 100 mg daily, Xarelto 20 mg daily Lives in [place] with friend. Retired - use to work [...] AF. Referred to Nephrology, appt in December. Direct Response Consultant Dr. Gregg in [place] every 4-6 weeks. Gets shots for macular degeneration Past Medical History: Diagnosis Date Angina pectoris ([facility]) Arrhythmia Atrial fibrillation ([facility] Atrial flutter ([facility]) Atrial flutter ([facility]) Benign prostatic hyperplasia BPH with urinary obstruction Cancer ([facility]) skin cancer Cataract Constipation Coronary artery disease Dental disease no teeth Diabetes mellitus ([facility]) Diabetes mellitus type 2, controlled ([facility]) Hypercholesterolemia Hypertension Myositis Peripheral neuropathy Rash Scalp wound Urinary incontinence Ventricular tachycardia ([facility]) Visual impairment glasses No data recorded No data recorded No data recorded Past Surgical History: Procedure Laterality Date 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; excision and debridement Left 10/29/2021 Performed by Ambrosio Al MD at [facility] AMPUTATION TOE 4TH & 5TH/WIDE INCISIONAL DEBRIDEMENT LEFT DIABETIC FOOT NECROTIZING FASCITIS Left 08/12/2021 Performed by Ambrosio Al MD at [facility] CARDIAC DEFIBRILLATOR PLACEMENT medtronic CATARACT EXTRACTION Coronary angiogram and left ventricular gram/pressure N/A 11/19/2018 Performed by Sage Jay MD at [facility] C[facility] CATH [facility] Coronary fractional flow reserve N/A 11/19/2018 Performed by Sage Jay MD at [facility]ATH [facility] CYSTOSCOPY [facility] SOLUTION N/A 10/27/2021 Performed by Frederic Thorne MD at [facility] DC ICD RA lead replace - MDT N/A 07/21/2020 Performed by Yoni Espinoza MD at [facility] (EP) EP - Device DC ICD Left 11/20/2018 Performed by Shayna Betancourt MD at [facility] (EP) EP - Diagnostic-- EP study Right 11/16/2018 Performed by Rafita Garcia MD at [facility] (EP) INJECTION BLOCK NERVE MEDIAL BRANCH: bilat L 10/05, 10/31 Bilateral 05/03/2024 Performed by Alber Hyde MD at [facility] Loop recorder implant N/A 11/16/2018 Performed by Rafita Garcia MD at [facility] (EP) Loop recorder removal N/A 07/21/2020 Performed by Yoni Espinoza MD at [facility] (EP) SKIN CANCER EXCISION Family [...] - Device Interrogation; Future 2. Ventricular tachycardia ([facility]) - POCT EKG 3. Encounter for monitoring amiodarone therapy - Pulmonary function test Complete PFT w/ BD (Spirometry (Flow Volume Loop) pre/post short acting bronchodilator w/ DLCO (diffusion study) and Lung Volume); Future - albuterol (PROVENTIL,VENTOLIN) nebulizer solution 2.5 mg 4. Paroxysmal atrial fibrillation (CMS-HCC) 5. Typical atrial flutter (CMS-HCC) 6. V-tach ([facility]) 7. Essential hypertension Sustained monomorphic VT Initial [...] moderate LAE, mild RA AE, trace AI, hekl-zl-[id number] MR, mild TR,RVSP 31 mm Hg Nonobstructive CAD LHC 11/19/2018 [...] in about 1 year (around 09/04/2025). PCP: [facility]iel Referring Physician: No referring provider defined for this encounter. JOSE MIGUEL Ribeiro 09/04/24 1453 documented in this encounterAvita Health System [facility]03-05-2025 History of Present illness Narrative* Phan Calderon MD - 09/04/2024 1:15 PM EST I agree with the findings in the scanned document. documented in this encounterAvita Health System [facility]03-04-2025 Miscellaneous Notes* Telephone Encounter - Marisela Mcguire CMA - 09/03/2024 10:36 AM EST Called patient to remind them to bring their most current copy of their medication list with them to their appt. Patient verbalizes understanding. documented in this encounterAvita Health System [facility]03-04-2025 Telephone encounter Note* Telephone Encounter - Marisela Mcguire CMA - 09/03/2024 10:36 AM EST Called patient to remind them to bring their most current copy of their medication list with them to their appt. Patient verbalizes understanding. [facility]03-04-2025 Miscellaneous Notes* Telephone Encounter - Marisela Mcguire CMA - 09/03/2024 10:30 AM EST Called patient to remind them to bring their most current copy of their medication list with them to their appt. Patient verbalizes understanding. documented in this encounterAvita Health [facility]03-04-2025 Telephone encounter Note* Telephone Encounter - Marisela Mcguire CMA - 09/03/2024 10:30 AM EST Called patient to remind them to bring their most current copy of their medication list with them to their appt. Patient verbalizes understanding. [facility]01-10-2025 Miscellaneous Notes* Telephone Encounter - Shannan Castellanos LPN - 07/12/2024 9:31 AM EST Samantha 03/08/23 Pt has future appt 07/24/[address] [facility]01-10-2025 Telephone encounter Note* Telephone Encounter - Shannan Castellanos LPN - 07/12/2024 9:31 AM EST Samantha 03/08/23 Pt has future appt 07/24/24 [facility]11-21[facility] History of Present illness Narrative* EDWARD Benavides - 05/23/2024 12:45 PM EST [facility] [address] [place] [address] Patient: Tomas Frausto Sex: male : 1955 Age: 69 y.o. PCP: [facility]iel 05/23/2024 Tomas Frausto is here for [...] with 100% releif. Pre proc 5/10 post proc0/10 continued Back Pain This is a chronic problem. The current episode started more than 1 year ago (5 years). The problem occurs intermittently. The problem has been gradually improving since onset. The quality of the painis described as aching (thumping). The pain radiates to the right thigh and right knee. The pain isat a severity of 4/10 (0/10 back pain [...] (BLE, wheelchair). Pertinent negatives include no bowel incontinence,chest pain, fever, headaches or tingling. Risk factors include history of cancer. He has tried muscle relaxant, analgesics and heat (Tylenol ES, carisopradol (causes nausea) with mod relief) for the symptoms. The treatment provided mild relief. The effect of pain on patient's ADLS: Mild Impairment. Past Medical History: Diagnosis Date Angina pectoris ([facility]) Arrhythmia Atrial fibrillation ([facility] Atrial flutter ([facility]) Atrial flutter ([facility]) Benign prostatic hyperplasia BPH with urinary obstruction Cancer ([facility]) skin cancer Cataract Constipation Coronary artery disease Dental disease no teeth Diabetes mellitus ([facility]) Diabetes mellitus type 2, controlled ([facility] Hypercholesterolemia Hypertension Myositis Peripheral neuropathy Rash Scalp wound Urinary incontinence Ventricular tachycardia ([facility]) Visual impairment glasses Past Surgical History: Procedure Laterality Date 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; excision and debridement Left 10/29/2021 Performed by Ambrosio Al MD at [facility] AMPUTATION TOE 4TH & 5TH/WIDE INCISIONAL DEBRIDEMENT LEFT DIABETIC FOOT NECROTIZING FASCITIS Left 08/12/2021 Performed by Ambrosio Al MD at [facility] CARDIAC DEFIBRILLATOR PLACEMENT medtronic CATARACT EXTRACTION Coronary angiogram and left ventricular gram/pressure N/A 11/19/2018 Performed by Sage Jay MD at [facility]ATH [facility] Coronary fractional flow reserve N/A 11/19/2018 Performed by Sage Jay MD at [facility]ATH [facility] CYSTOSCOPY [facility] SOLUTION N/A 10/27/2021 Performed by Frederic Thorne MD at [facility] DC ICD RA lead replace - MDT N/A 07/21/2020 Performed by Yoni Espinoza MD at [facility] (EP) EP - Device DC ICD Left 11/20/2018 Performed by Shayna Betancourt MD at [facility] (EP) EP - Diagnostic-- EP study Right 11/16/2018 Performed by Rafita Garcia MD at [facility] (EP) INJECTION BLOCK NERVE MEDIAL BRANCH: bilat L 10/05, 10/31 Bilateral 05/03/2024 Performed by Alber Hyde MD at [facility] Loop recorder implant N/A 11/16/2018 Performed by Rafita Garcia MD at [facility] (EP) Loop recorder removal N/A 07/21/2020 Performed by Yoni Espinoza MD at [facility] (EP) SKIN CANCER EXCISION No [...] during discussion, demonstrated appropriate cognitive reasoning and understandingof the medical condition by asking appropriate questions [...] spine and paraspinal musculature. Pain is elicited withflexion, extension, and lateral rotation of the lumbar [...] monitoring for toxicity We do not currently prescribeany controlled substance from this practice. Treatment plans [...] EDWARD Benavides 05/23/24 1347 documented in this encounterAvita Health System [facility]11-21-2024 Miscellaneous Notes* Telephone Encounter - Tory Hoover RN - 05/23/2024 1:59 AM EST Last OV 03/08/23. Letter sent to pt 02/23. Attempted to call pt, no VM box set up. Letter sent. Pt will need appointment for future refills. documented in this encounterAvita Health [facility]11-21-2024 Telephone encounter Note* Telephone Encounter - Tory Hoover RN - 05/23/2024 1:59 AM EST Last OV 03/08/23. Letter sent to pt 02/23. Attempted to call pt, no VM box set up. Letter sent. Pt will need appointment for future refills. [facility]10-08-[facility] History of Present illness Narrative* EDWARD Benavides - 04/09/2024 10:45 AM EDT [facility] [address] [place] [address] Patient: Tomas Frausto Sex: male : 1955 Age: 68 y.o. PCP: [facility] 04/09/2024 Tomas Frausto is here for a(n) [...] the right thigh and right knee. The painis at a severity of 5/10. The pain [...] Past Medical History: Diagnosis Date Angina pectoris ([facility]) Arrhythmia Atrial fibrillation ([facility] Atrial flutter ([facility]) Atrial flutter ([facility]) Benign prostatic hyperplasia BPH with urinary obstruction Cancer ([facility]) skin cancer Cataract Constipation Coronary artery disease Dental disease no teeth Diabetes mellitus ([facility]) Diabetes mellitus type 2, controlled ([facility]) Hypercholesterolemia Hypertension Myositis Peripheral neuropathy Rash Scalp wound Urinary incontinence Ventricular tachycardia ([facility]) Visual impairment glasses Past Surgical History: Procedure Laterality Date 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; excision and debridement Left 10/29/2021 Performed by Ambrosio Al MD at [facility] AMPUTATION TOE 4TH & 5TH/WIDE INCISIONAL DEBRIDEMENT LEFT DIABETIC FOOT NECROTIZING FASCITIS Left 08/12/2021 Performed by Ambrosio Al MD at [facility] CARDIAC DEFIBRILLATOR PLACEMENT medtronic CATARACT EXTRACTION Coronary angiogram and left ventricular gram/pressure N/A 11/19/2018 Performed by Sage Jay MD at [facility] CATH [facility]S Coronary fractional flow reserve N/A 11/19/2018 Performed by Sage Jay MD at [facility]ATH [facility] CYSTOSCOPY [facility] SOLUTION N/A 10/27/2021 Performed by Frederic Thorne MD at [facility] DC ICD RA lead replace - MDT N/A 07/21/2020 Performed by Yoni Espinoza MD at [facility] (EP) EP - Device DC ICD Left 11/20/2018 Performed by Shayna Betancourt MD at [facility] (EP) EP - Diagnostic-- EP study Right 11/16/2018 Performed by Rafita Garcia MD at [facility] (EP) Loop recorder implant N/A 11/16/2018 Performed by Rafita Garcia MD at [facility] (EP) Loop recorder removal N/A 07/21/2020 Performed by Yoni Espinoza MD at [facility] (EP) SKIN CANCER EXCISION No [...] during discussion, demonstrated appropriate cognitive reasoning and understandingof the medical condition by asking appropriate questions [...] spine and paraspinal musculature. Pain is elicited withflexion, extension, and lateral rotation of the lumbar [...] procedure was described in detail to the patientas well as the potential benefits of pain [...] blocks should provide information to confirm that thenoted facet arthropathy is the patient s most [...] monitoring for toxicity We do not currently prescribeany controlled substance from this practice. Treatment plans [...] as a result. Additional consideration will need pa given to timing the procedure early in [...] is safe to discontinue this therapy for anyplanned procedure. If it is determined that discontinuation [...] medicine for the treatment of painful conditions includingfacet joint pain. Patients with facet (z-joint) pain may have unrelated comorbidities that require implanted permanent pacemaker (PPM) or implantable cardiac defibrillator (ICD). Both of these devices rely on the detection of electrical cardiac activity, rhythm, and rate to function properly. Radiofrequency neurotomy can be safely performed in these patients; however, close collaboration with a ic design engineer or front office representative is recommended before initiating the RFN procedure, therefore prior to RFA we will consult with patient's ic design engineer/front office representative for approval and recommendations to proceed [...] EDWARD Benavides 04/11/24 1226 documented in this encounterCommunity Memorial HospitalYapmo10-08-2024 Instructions* Patient Instructions* Chula Bonilla CNA - 04/09/2024 10:45 AM [...] take you to the nearest emergency room. Tellthe emergency room staff that you recently had a spine injection. A doctor must evaluate you for bleeding and injection complications. If you lose control over bowel, bladder, or legs: Go to the nearest emergency room. documented in this encounterCommunity Memorial HospitalFuton [id number] History of Present illness Narrative* EDWARD Benavides - 02/22/2024 2:45 PM EDT [facility] [address] [place] [place] [address] Patient: Tomas Frausto Sex: male : 1955 Age: 68 y.o. PCP: [facility] 02/22/2024 Tomas Frausto is here [...] include bladder incontinence, leg pain (Rt thigh) andweakness (BLE, wheelchair). Pertinent negatives include no bowel incontinence, chest pain, fever, headaches, numbness or tingling. Risk factors include obesity and history of cancer. He has tried muscle relaxant, analgesics and heat (Tylenol ES, carisopradol (causes nausea) with mod relief) for thesymptoms. The treatment provided mild relief. The effect [...] 10/29/2021 Performed by Ambrosio Al MD at [facility] AMPUTATION TOE 4TH & 5TH/WIDE INCISIONAL DEBRIDEMENT LEFT DIABETIC FOOT NECROTIZING FASCITIS Left 08/12/2021 Performed by Ambrosio Al MD at [facility] CARDIAC DEFIBRILLATOR PLACEMENT medtronic CATARACT EXTRACTION Coronary angiogram and left ventricular gram/pressure N/A 11/19/2018 Performed by Sage Jay MD at [facility]ATH [facility] Coronary fractional flow reserve N/A 11/19/2018 Performed by Sage Jay MD at [facility] CYSTOSCOPY [facility] SOLUTION N/A 10/27/2021 Performed by Frederic Thorne MD at [facility] DC ICD RA lead replace - MDT N/A 07/21/2020 Performed by Yoni Espinoza MD at [facility] (EP) EP - Device DC ICD Left 11/20/2018 Performed by Shayna Betancourt MD at [facility] (EP) EP - Diagnostic-- EP study Right 11/16/2018 Performed by Rafita Garcia MD at [facility] (EP) Loop recorder implant N/A 11/16/2018 Performed by Rafita Garcia MD at [facility] (EP) Loop recorder removal N/A 07/21/2020 Performed by Yoni Espinoza MD at [facility] (EP) SKIN CANCER EXCISION No [...] during discussion, demonstrated appropriate cognitive reasoning and understandingof the medical condition by asking appropriate questions [...] spine and paraspinal musculature. Pain is elicited withflexion, extension, and lateral rotation of the lumbar [...] is necessary to further evaluate the patients currentpain pathology. For this reason, we will order [...] EDWARD Benavides 02/29/[address] [facility]08-21-2024 Miscellaneous Notes* Telephone Encounter - Macarena Sanchez RN - 02/21/2024 10:04 AM EDT 02/21/24 Remember to arrange Mar 2024 annual offc appt. Please contact pt to arrange. documented in this encounterAvita Health System [facility] Hospital08-21-2024 Miscellaneous Notes* Telephone Encounter - Rochelle Goldman RN - 02/21/2024 10:04 AM EDT OV-03/08/2023 documented in this encounterAvita Health System [facility] Hospital08-21-2024 Telephone encounter Note* Telephone Encounter - Macarena Sanchez RN - 02/21/2024 10:04 AM EDT 02/21/24 Remember to arrange Mar 2024 annual offc appt. Please contact pt to arrange. [facility]08-[facility] Telephone encounter Note* Telephone Encounter - Rochelle Goldman RN - 02/21/2024 10:04 AM EDT OV-03/08/2023 [facility]07-17-2024 Miscellaneous Notes* Telephone Encounter - Di London CNA - 01/17/2024 11:48 AM EDT [facility] [employer] RN states he is needing a prescription for Tramadol. She is requesting it as it wasordered while in the hospital because this has been effective for him. ( 50 mg every 8 hours ). 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 documented in this encounterAvita Health System [facility] Hospital07-17-2024 Telephone encounter Note* Telephone Encounter - Di London CNA - 01/17/2024 11:48 AM EDT Martha Chelita RN states he is needing a prescription for Tramadol. She is requesting it as it wasordered while in the hospital because this has been effective for him. ( 50 mg every 8 hours ). 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 [facility]07-11-2024 Miscellaneous Notes* Telephone Encounter - Mariana Reyez RN - 01/11/2024 2:42 PM EDT Patients friend came to window with request to get soma medication refilled. Provider stated we do not fill soma and friend instructed with information and to reach out pcp as they were the ones who provided patient with the rx. Friend verbalized understanding. documented in this encounterAvita Health System [facility] Hospital07-11-2024 Telephone encounter Note* Telephone Encounter - Mariana Reyez RN - 01/11/2024 2:42 PM EDT Patients friend came to window with request to get soma medication refilled. Provider stated we do not fill soma and friend instructed with information and to reach out pcp as they were the ones who provided patient with the rx. Friend verbalized understanding. [facility]07-09-2024 History of Present illness Narrative* EDWARD Benavides - 01/09/2024 1:00 PM EDT [facility] [address] [place] [address] Patient: Tomas Frausto Sex: male : 1955 Age: 68 y.o. PCP: [facility] 01/09/2024 Tomas Frausto is here for a(n) [...] a severity of 5/10 (up 7/10 with agg revating movements). The pain is moderate. The pain is Worse during the night. The symptoms are aggravated by lying down, bending and twisting. Stiffness is present All day. Associated symptoms include bladder incontinence, leg pain (posterior aspect of BLE to mid calf) and weakness (uses walking).Pertinent negatives include no bowel incontinence, headaches or numbness. Risk factors include obesity and history of cancer. He has tried muscle relaxant, analgesics and heat (Tylenol ES, carisopradol (causes nausea) with mod relief) for the symptoms. The effect of pain on patient's ADLS: Moderate Impairment. Past Medical History: Diagnosis Date Angina pectoris ([facility]-HCC) Arrhythmia Atrial fibrillation ([facility]-HCC) Atrial flutter (CMS-HCC) Atrial flutter (CMS-HCC) Benign prostatic hyperplasia BPH with urinary obstruction Cancer (CMS-HCC) skin cancer Cataract Constipation Coronary artery disease Dental disease no teeth Diabetes mellitus (CMS-HCC) Diabetes mellitus type 2, controlled ([facility]) Hypercholesterolemia Hypertension Myositis Peripheral neuropathy Rash Scalp wound Urinary incontinence Ventricular tachycardia (CMS-HCC) Visual impairment glasses Past Surgical History: Procedure Laterality Date 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; excision and debridement Left 10/29/2021 Performed by Ambrosio Al MD at [facility] AMPUTATION TOE 4TH & 5TH/WIDE INCISIONAL DEBRIDEMENT LEFT DIABETIC FOOT NECROTIZING FASCITIS Left 08/12/2021 Performed by Ambrosio Al MD at [facility] CARDIAC DEFIBRILLATOR PLACEMENT medtronic CATARACT EXTRACTION Coronary angiogram and left ventricular gram/pressure N/A 11/19/2018 Performed by Sage Jay MD at [facility] CARDIAC CATH LABS Coronary fractional flow reserve N/A 11/19/2018 Performed by Sage Jay MD at [facility] CARDIAC CATH LABS CYSTOSCOPY [facility] SOLUTION N/A 10/27/2021 Performed by Frederic Thorne MD at [facility] DC ICD RA lead replace - MDT N/A 07/21/2020 Performed by Yoni Espinoza MD at [facility] (EP) EP - Device DC ICD Left 11/20/2018 Performed by Shayna Betancourt MD at [facility] (EP) EP - Diagnostic-- EP study Right 11/16/2018 Performed by Rafita Garcia MD at [facility] (EP) Loop recorder implant N/A 11/16/2018 Performed by Rafita Garcia MD at [facility] (EP) Loop recorder removal N/A 07/21/2020 Performed by Yoni Espinoza MD at [facility] (EP) SKIN CANCER EXCISION No [...] Interpersonal Safety: Unknown (08/24/2023) Received from [facility] [place] [facility] Environment Fear of [...] during discussion, demonstrated appropriate cognitive reasoning and understandingof the medical condition by asking appropriate questions [...] spine and paraspinal musculature. Pain is elicited withflexion, extension, and lateral rotation of the lumbar [...] for the condition being treated. This may i nclude modalities of comfort including moist heat, ultrasound, [...] monitoring for toxicity We do not currently prescribeany controlled substance from this practice. Treatment plans [...] EDWARD Benavides 01/11/24 0917 [facility] NotePROCEDURE: XR FOOT LT MIN 3 VIEWS HISTORY: Pain in left [...] Electronically authenticated by: EDILSON DON Date: 2022-08-09 15:44[facility]* Diagnosis Enuresis- Primary Functional urinary incontinence [...] Paroxysmal ventricular tachycardia documented [facility]* Diagnosis Lumbar spondylolysis- Primary Lumbosacral spondylosis without myelopathy documented in this encounter [facility]* Diagnosis Atrial fibrillation, unspecified type (CMS-HCC)- Primary documented in this encounter [facility]* Diagnosis Ventricular tachycardia (CMS-HCC) Paroxysmal ventricular tachycardia Atrial fibrillation with RVR (CMS-HCC) V-tach (CMS-HCC) Paroxysmal ventricular tachycardia documented in this encounter [facility]* Diagnosis Lumbosacral spondylosis without myelopathy- Primary Disc displacement, lumbar Displacement of lumbar intervertebral disc without myelopathy Lumbar radiculopathy, chronic documented in this encounter [facility]* Diagnosis Lumbosacral spondylosis without myelopathy- Primary Lumbosacral spondylosis without myelopathy- Primary Lumbosacral spondylosis without myelopathy documented in this encounter [facility]* Diagnosis Enuresis- Primary Functional urinary incontinence BPH (benign prostatic hypertrophy) with urinary obstruction- Primary Hypertrophy of prostate with urinary obstruction and other lower urinary tract symptoms (LUTS) Benign prostatic hyperplasia with urinary obstruction- Primary Urinary retention- Primary Unspecified retention of urine Benign prostatic hyperplasia with urinary obstruction Lumbosacral spondylosis without myelopathy- Primary documented in this encounter [facility]* Diagnosis Enuresis- Primary Functional urinary incontinence BPH (benign prostatic hypertrophy) with urinary obstruction- Primary Hypertrophy of prostate with urinary obstruction and other lower urinary tract symptoms (LUTS) Benign prostatic hyperplasia with urinary obstruction- Primary Urinary retention- Primary Unspecified retention of urine Benign prostatic hyperplasia with urinary obstruction Ventricular tachycardia ([facility]) Paroxysmal ventricular tachycardia Atrial fibrillation with RVR ([facility]) V-tach ([facility]) Paroxysmal ventricular tachycardia documented in this encounter [facility]* Diagnosis Enuresis- Primary Functional urinary incontinence BPH (benign prostatic hypertrophy) with urinary obstruction- Primary Hypertrophy of prostate with urinary obstruction and other lower urinary tract symptoms (LUTS) Benign prostatic hyperplasia with urinary obstruction- Primary Urinary retention- Primary Unspecified retention of urine Benign prostatic hyperplasia with urinary obstruction Ventricular tachycardia ([facility])- Primary Paroxysmal ventricular tachycardia AICD present, double chamber Encounter for monitoring amiodarone therapy Paroxysmal atrial fibrillation ([facility]) Atrial fibrillation Typical atrial flutter ([facility]) V-tach ([facility]) Paroxysmal ventricular tachycardia Essential hypertension Unspecified essential hypertension documented in this encounter [facility]* Diagnosis Enuresis- Primary Functional urinary incontinence BPH (benign prostatic hypertrophy) with urinary obstruction- Primary Hypertrophy of prostate with urinary obstruction and other lower urinary tract symptoms (LUTS) Benign prostatic hyperplasia with urinary obstruction- Primary Urinary retention- Primary Unspecified retention of urine Benign prostatic hyperplasia with urinary obstruction AICD present, double chamber- Medtronic- Primary documented in this encounter [facility]* Diagnosis Enuresis- Primary Functional urinary incontinence BPH (benign prostatic hypertrophy) with urinary obstruction- Primary Hypertrophy of prostate with urinary obstruction and other lower urinary tract symptoms (LUTS) Benign prostatic hyperplasia with urinary obstruction- Primary Urinary retention- Primary Unspecified retention of urine Benign prostatic hyperplasia with urinary obstruction Critical limb ischemia of left lower extremity with gangrene ([facility])- Primary PVD (peripheral vascular disease) Unspecified peripheral vascular disease documented in this encounter [facility]* Diagnosis Acute pain of right knee- Primary Arthritis of right knee Effusion of right knee documented in this encounter [facility]* Diagnosis Paronychia of great toe of right foot- Primary Angiopathy, diabetic ([facility]) Type II or unspecified type diabetes mellitus with peripheral circulatory disorders, not stated as uncontrolled Diabetic polyneuropathy associated with type 2 diabetes mellitus (CMS/HCC) Status post partial amputation of left foot (CMS/HCC) documented in this encounter [facility]* Diagnosis Enuresis- Primary Functional [...] gangrene (CMS-HCC)- Primary documented in this encounter [facility] noteNo assessment information available [facility] Work Phone: Evaluation note* Diagnosis Enuresis- [...] gangrene (CMS-HCC)- Primary Atrial fibrillation, unspecified type (CMS-HCC) documented in this encounter [facility]* Diagnosis Dermatophytosis of nail- Primary Dystrophic nail Other specified disease of nail Status post partial amputation of left foot (HCC) Angiopathy, diabetic (HCC) Type II or unspecified type diabetes mellitus with peripheral circulatory disorders, not stated as uncontrolled Diabetic polyneuropathy associated with type 2 diabetes mellitus (HCC) documented in this encounter [facility]* Diagnosis Diabetic ulcer of toe associated with type 2 diabetes mellitus, with fat layer exposed, unspecifiedlaterality (HCC)- Primary Status post partial amputation of left foot (HCC) Angiopathy, diabetic (HCC) Type II or unspecified type diabetes mellitus with peripheral circulatory disorders, not stated as uncontrolled Diabetic polyneuropathy associated with type 2 diabetes mellitus (HCC) documented in this encounter [facility] note* Diagnosis Status post partial amputation of left foot (HCC)- Primary Angiopathy, diabetic (HCC) Type II or unspecified type diabetes mellitus with peripheral circulatory disorders, not stated as uncontrolled Diabetic polyneuropathy associated with type 2 diabetes mellitus (HCC) 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) documented in this encounter [facility] HealthcareInstructionsNot on filedocumented in this encounterProPremier [facility] SystemInstructionsNot on filedocumented in this encounterProPremier [facility] SystemInstructionsNot on filedocumented in this encounterProC[facility] InstructionsNot on filedocumented in this encounterProCrest[facility] InstructionsNot on filedocumented in this encounterProCrest[facility] InstructionsNot on filedocumented in this encounterProCrest[facility] InstructionsNot on filedocumented in this encounterProCrest[facility] InstructionsNot on filedocumented in this encounter[facility] InstructionsNot on filedocumented in this encounter[facility] InstructionsNot on filedocumented in this encounterDay[facility] InstructionsNot on filedocumented in this encounterDay[facility] Summary Purpose Family History No Family History Records FoundNo Family History Records FoundNo Family History Records FoundNo Family History Records FoundNo Family History Records FoundNo Family History Records Found Advance Directives No Advanced Directives Records Found Date ActivatedDate InactivatedComments08/10/2021 3:58 AM08/16/2021 6:41 PMDate ActivatedDate InactivatedComments12/16/2019 11:02 AM12/17/2019 5:52 PMDate ActivatedDate InactivatedComments11/14/2018 8:21 PM11/21/2018 9:34 PMDate ActivatedDate InactivatedComments11/23/2017 1:57 PM11/23/2017 5:15 PMDate ActivatedDate InactivatedComments08/10/2021 3:58 AM08/16/2021 6:41 PMDate Activated Date InactivatedComments12/16/2019 11:02 AM12/17/2019 5:52 PMDate ActivatedDate InactivatedComments11/14/2018 8:21 PM11/21/2018 9:34 PMDate ActivatedDate InactivatedComments11/23/2017 1:57 PM11/23/2017 5:15 PM Reason for Referral SpecialtyDiagnoses / ProceduresReferred By ContactReferred To ContactRadiology Diagnoses Lumbar radiculopathy, chronic Procedures MR lumbar spine without contrast Bebeto Romano PA [address] [place] [address] [facility] [address] [address] Phone: [phone] Referral IDStatusReasonStart DateExpiration DateVisits RequestedVisits [id number] Review/[id number] / ProceduresReferred By ContactReferred To Contact Diagnoses Lumbosacral spondylosis without myelopathy Procedures Case request operating room: INJECTION BLOCK NERVE MEDIAL BRANCH: bilat L45 51 Bebeto Romano PA [address], [address] [place] [id number] Referral IDStatusReasonStart DateExpiration DateVisits RequestedVisits [id number] Additional Source Comments (unrecognized sect ion and content) No Status Records FoundNo Status Records FoundNo Status Records FoundNo Status Records FoundNo Status Records FoundNo Status Records Found INFORMATION SOURCE (unrecogn ized section and content) DATE CREATED AUTHOR 11/16/2022 [facility] DATE CREATED AUTHOR AUTHOR'S ORGANIZ ATION 09/28/2024 [facility] DATE CREATED AUTHOR AUTHOR'S ORGANIZ ATION 10/12/2024 [facility] DATE CREATED AUTHOR AUTHOR'S ORGANIZ ATION 11/20/2024 [facility] DATE CREATED AUTHOR AUTHOR'S ORGANIZ ATION 02/15/2025 [facility] DATE CREATED AUTHOR AUTHOR'S ORGANIZ ATION 04/18/2025 [facility] EPIC Reason for Visit (unrecogniz ed section and content) ReasonCommentsMed Change RequestReasonCommentsBack PainReasonCommentsMed Refill ReasonCommentsBack PainReasonCommentsFollow-upov/pm need for med refills hemalatha w pt friend Don r/s w pt friend Stevenson fromk 08/27ReasonCommentsDevice CheckReason CommentsNew patient Referral for bilateral lower extremities bloodNew patient Referral for bilateral lower extremities blood flow issues, Pvd chronic left foot woundSpecialtyDiagnoses / ProceduresReferred By ContactReferred To Contact Vascular Surgery Diagnoses PVD (peripheral vascular disease) Mariana Gutiérrez, DPM [address] [place] [address] Phone: tel: fax: [facility] [address] [place] [address] Phone: tel:[phone] fax: Referral IDStatusReasonStart DateExpiration DateVisits RequestedVisits [id number] Review Specialty Services Required /[id number]GwdwlhipCgn PainJames Borer 69yo New Patient last seen 07/12/2021. Patient is diabetic. Concerns of Right great toena il infection, patient relates drainage, thick and painful. [place] due to non- healing after amputation surgery 3 years ago, [place]. Currently taking cephalexin for left foot infection. Left leg blood clot as of last week, patient is on aspirin and Xarelto. BS [address] Bejarano 09/30/2024 10Reason CommentsANGIO [id number] DateCommentsSurgical Or Dental Clearance 10/15/2024ReasonCommentsDM Foot CareEstablished patient presents today for routine diabetic nail care. Patient would like to start the process for diabetic shoes, which they state will require toe filler insert. Patient has some wounds on BL feet/ankle, patient has HH come and care for these. Patient recently had amputation of the right hallux and left 2nd digit in october. PCP: Dr. Bejarano 11/06/24, A1C: 8.7, BS: 132ReasonCommentsDM Foot CareEstablished patient presents today originally as a shoe measure appointment, however no paperwork was started due to wound on left foot. Patient does appear to have a wound on RGT, patient has HH come for this, last visit was yesterday. PCP: Bradley Bejarano 12/2024, A1C: n/a, BS: 130Julieta Abida Frausto is a 69 y.o. male who presents for DM Foot Care. PCP: Bradley Bejarano 12/2024, A1C: n/a,BS: 130. Care Teams (unrecognized sec tion and content) Team MemberRelationshipSpecialtyStart DateEnd Date Services, [facility] [address] [place] PCP - GeneralFamily Zoxlyerb45/15/24Team MemberRelationshipSpecialtyStart Date End Date [facility] [address] [place] PCP - GeneralFamily Medicine12/26/23Team MemberRelationshipSpecialtyStart DateEnd Date [facility] [address] [place] PCP - GeneralFamily Medicine12/26/23Team MemberRelationshipSpecialtyStart DateEnd Date [facility] [address] [place] PCP - GeneralFamily Medicine12/26/23Team MemberRelationshipSpecialtyStart DateEnd Date [facility] [address] [place] PCP - GeneralFamily Medicine12/26/23Team MemberRelationshipSpecialtyStart DateEnd Date [facility] [address] [place] PCP - GeneralFamily Medicine12/26/23Team MemberRelationshipSpecialtyStart DateEnd Date [facility] [address] [place] PCP - GeneralFamily Medicine12/26/23am MemberRelationshipSpecialtyStart DateEnd Date Services, [facility] [address] [place] PCP - GeneralFamily Jilrjjjz53/15/24am MemberRelationshipSpecialtyStart Date End Date Services, [facility] [address] [place] PCP - GeneralFamily Qmibylwl66/15/24am MemberRelationshipSpecialtyStart Date End Date Services, [facility] [address] [place] PCP - GeneralFamily Howhrzod11/15/24am MemberRelationshipSpecialtyStart Date End Date Services, [facility] [address] [place] PCP - GeneralFamily Facifndh59/15/24am MemberRelationshipSpecialtyStart Date End Date Services, [facility] [address] [place] PCP - GeneralFamily Eutllays82/15/24am MemberRelationshipSpecialtyStart Date End Date Services, [facility] [address] [place] PCP - GeneralFamily Ptcgghcf90/15/24am MemberRelationshipSpecialtyStart Date End Date Bradley Bejarano PA [address] [place] [address] PCP - GeneralFamily Medicine10/02/24 MemberRelationshipSpecialtyStart DateEnd Date Bradley Bejarano PA [address] [place] [address] PCP - GeneralFamily Medicine4/2/25Team MemberRelationshipSpecialtyStart DateEnd Date Bradley Bejarano PA [address] [place] [address] PCP - GeneralFamily Medicine10/02/24Team MemberRelationshipSpecialtyStart DateEnd Date Bradley Bejarano PA [address] [place] [address] PCP - Generalmily Medicine10/02/24Team MemberRelationshipSpecialtyStart DateEnd Date [facility] [address] [place] PCP - Generalmily Xvsxrhwk16/15/24 Team Status: Inactive Member Role Status Dates Mariana Gutiérrez DPM MS Attending Provider Active Start: November 12, 2024 End: November 12, 2024Team MemberRelationshipSpecialtyStart DateEnd Date [facility] [address] [place] PCP - Generalmily Wzysnwlv76/15/24Team MemberRelationshipSpecialtyStart Date End Bradley Bejarano PA [address] [place] [address] PCP - Generalmily Medicine10/02/24Team MemberRelationshipSpecialtyStart DateEnd Date Bradley Bejarano PA [address] [place] [address] PCP - Generalmily Medicine10/02/24Team MemberRelationshipSpecialtyStart DateEnd Date Bradley Bejarano PA [address] [place] [address] PCP - GeneralFamily Medicine10/02/24Team MemberRelationshipSpecialtyStart DateEnd Date Bradley Bejarano PA [address] [place] [address] PCP - [facility]10/02/24Team MemberRelationshipSpecialtyElkins DateEnd Date Bradley Bejarano PA [address] [facility] [place] [id number] PCP - [facility]10/02/24 Goals (unrecognized section and content) Goals may [...] BE BASED ON THE PRIMARY CLINICAL RECORDS. [facility] [employer] provides no warranty or guarantee of the accuracy or completeness of information in this document.
== END 2025-04-30 09:18 | disposition home or self-care (01) ==
LOC: WC 09:17
PROVIDERS: Visit Provider Podiatrist Foot & Ankle Surgery
DX: E11.621 Type 2 diabetes mellitus with foot ulcer (principal); L97.322 Non-pressure chronic ulcer of left ankle with fat layer exposed; L97.412 Non-pressure chronic ulcer of right heel and midfoot with fat layer exposed; L97.515 Non-pressure chronic ulcer of other part of right foot with muscle involvement without evidence of necrosis
CPT/HCPCS: G0463

== ENCOUNTER 2025-05-21 09:36 | Outpatient (OUT) | payer MEDICARE, MEDICAID, SELFPAY ==
--- OUTSIDE RECORDS SUMMARY | 2025-05-21 09:44 | XMS_ITS | CCD ---
Author Organization [facility] Care Team Providers Care Cheese Wrapper Name Role Phone MARIANA GUTIÉRREZ Attending Unavailable [...] MARIANA GUTIÉRREZ Attending Unavailable Services, [facility] Primary Care Provider Services, [facility] Primary Care Provider Services, [facility] Primary Care Provider GRETTA WHITLOCK Admitting Unavailable GRETTA WHITLOCK Attending Unavailable GRETTA WHITLOCK Referring Unavailable SERVICES, [facility] Primary Care Unava ilable Bradley Saucedo Primary Care Provider GRETTA WHITLOCK Attending Unavailable SERVICES, [facility] Primary Care Unava ilable GRETTA WHITLOCK Attending Unavailable MARIANA GUTIÉRREZ Referring Unavailable SERVICES, [facility] Primary Care Unava ilable Patander aMriana JORDAN Attending Provider [phone] Mariana Gutiérrez Attending Unavailable Mariana Gutiérrez Admitting Unavailable BEBETO ROMANO Attending Unavailable ALBER HYDE Referring Unavailable SERVICES, [facility] Primary Care Unava ilable BEBETO ROMANO Attending Unavailable BEBETO ROMANO Referring Unavailable SERVICES, [facility] Primary Care Unava ilable BEBETO ROMANO Attending Unavailable ALBER HYDE Referring Unavailable SERVICES, [facility] Primary Care Unava ilable SERVICES, [facility] Care Unava ilable CHRISTIAN, DIVYA Valera Attending Unavailable ALBER HYDE Admitting Unavailable ALBER HYDE Attending Unavailable ALBER HYDE Referring Unavailable DIMITRI, ALBER Valera Attending Unavailable ALBER HYDE Referring Unavailable SERVICES, [facility] Unava ilable CECY, IZZY Anastasiya Referring Unavailable SERVICES, [facility] Unava ilable BEBETO ROMANO Attending Unavailable ALBER HYDE Referring Unavailable SERVICES, [facility] Unava ilable MARIANA GUTIÉRREZ Referring Unavailable SERVICES, [facility] Unava ilable SERVICES, [facility] Unava ilable VANDANA BRAR Attending Unavailable SERVICES, [facility] Unava ilable SERVICES, [facility] Unava ilable EDILSON FERNANDES Attending Unavailable BRAR, VANDANA N Attending Unavailable BRARVANDANA N Referring Unavailable SERVICES, [facility] Unava ilable TYRESE, VANDANA N Attending Unavailable BRAR, VANDANA N Referring Unavailable SERVICES, [facility] Unava ilable TYRESE, VANDANA N Attending Unavailable BRAR VANDANA N Referring Unavailable SERVICES, [facility] Unava ilable BRARDONVANDANA N Attending Unavailable BRAR, VANDANA N Referring Unavailable SERVICES, [facility] Unava ilable SERVICES, [facility] Unava ilable JAIRO GARG Attending Unavailable SHERINE RAMIRES Referring Unavailable SERVICES, [facility] Unava ilable SHERINE RAMIRES Referring Unavailable SERVICES, [facility] Unava ilable BEBETO BEARD Attending Unavailable RUSHER, EDILSON Langford Attending Unavailable RUSHER, EDILSON Langford Attending Unavailable RUSHER, EDILSON Langford Attending Unavailable RUSHER, EDILSON Langford Attending Unavailable RUSHER, EDILSON Langford Attending Unavailable RUSHEREDILSON Attending Unavailable Medications Current Medications MedicationDrug Class(es)DatesSig (Normalized)Sig (Original)8 hr acetaminophen 650 mg extended release oral tablet (19 sources)take 1 tablet by mouth every eight hours as needed for pain acetaminophen (TYLENOL ARTHRITIS) 650 mg 8 hr tablet Take 1 tablet (650 mg total) by mouth every 8 (eight) hours as needed for pain. Active End: 30-11-0292wqrc 2 tablets by mouth every six hours as needed for pain acetaminophen (TYLENOL) 325 mg tablet Take 2 tablets (650 mg total) by mouth every 6 (six) hours asneeded for pain. 04/09/2024 Expiredamiodarone hydrochloride 200 mg oral tablet (20 sources)AntiarrhythmicStart: 03-08-2023 End: 03-36-6621ipbv 1 tablet by mouth in the morningamiodarone (Pacerone) 200 MG tablet Take 200 mg by mouth in the morning. 09/04/2024 Activeaspirin 81 mg delayed release oral tablet (20 sources)Platelet Aggregation Inhibitor, Nonsteroidal Anti-inflammatory Drug take 1 tablet by mouth in the morningaspirin 81 MG EC tablet Take 81 mg by mouth in the morning. Activeatorvastatin 20 mg oral tablet (20 sources)HMG-CoA Reductase InhibitorStart: 85-79-0929teff 1 tablet by mouth in the morningatorvastatin (Lipitor) 20 MG tablet Take 20 mg by mouth in the morning. 09/02/2024 Activecephalexin 500 mg oral capsule (13 sources)Cephalosporin Antibacterialcephalexin (Keflex) 500 MG capsule Take 500 mg by mouth in the morning and 500 mg at noon and 500 mg in the evening and 500 mg before bedtime. Activecholecalciferol 0.025 mg oral capsule (20 sources)Vitamin DStart: 74-17-8115wgrz 1 capsule by mouth once dailyD3-1000 25 MCG (1000 UT) capsule Take 25 mcg by mouth Daily 09/09/2024 ActiveStart: 11-02-2023 End: 21-21-6452wswd 1 capsule by mouth in the morningVITAMIN D3 25 mcg (1,000 unit) capsule Take 1 capsule (1,000 Units total) by mouth in the morning. 0 11/02/2023 09/04/2024 Discontinued (Therapy completed) End: 23-73-3244qomt 1 tablet by mouth in the morningcholecalciferol [...] oxide 400 mg oral tablet (20 sources)Start: 46-59-7924qvpsorrkr oxide (Mag-Ox) 400 MG tablet 09/30/2024 ActiveStart: 06-16-2021 End: 02-93-0601ipuk 1 tablet by mouth three times daily at mealtimemagnesium oxide (MAG-OX) 400 mg tablet Indications: Hypomagnesemia Take 1 tablet (400 mg total) by mouth 3 (three) times a day with meals. 90 tablet 5 06/16/2021 09/04/2024 Discontinued (Therapy completed)24 hr metFORMIN hydrochloride 500 mg extended release oral tablet (20 sources)BiguanideStart: 58-35-1783catj 2 tablets by mouth every twenty-four hours [...] in the morning and 1,000 mgbefore bedtime. Kqzkso83 hr metoprolol succinate 100 mg extended release oral tablet (20 sources)beta-Adrenergic BlockerStart: 06-19-2024 End: 93-86-3271puwu 1 tablet by mouth every twenty-four hours in the morning metoprolol succinate XL (Toprol-XL) 100 MG 24 hr tablet Take 100 mg by mouth in the morning. 07/22/2024 ActiveStart: 35-50-9270pcbi 1 tablet by mouth every twenty-four hours in the morningmetoprolol succinate XL (TOPROL XL) 100 mg 24 hr tablet Indications: Ventricular tachycardia (CMS-HCC) , Atrial fibrillation with RVR (CMS-HCC) , V-tach (CMS-HCC) TAKE 1 TABLET (100 MG TOTAL) BY MOUTH IN THE MORNING 30 tablet 05/23/2024 ActiveStart: 03-16-2023 End: 08-47-2487jwor 1 tablet by mouth every twenty-four hours in the morning metoprolol succinate XL (TOPROL XL) 100 mg 24 hr tablet Indications: Ventricular tachycardia (CMS-HCC) , Atrial fibrillation with RVR (CMS-HCC) , V-tach (CMS- HCC) TAKE 1 TABLET (100 MG TOTAL) BY MOUTH IN THE MORNING 30 tablet 05/23/2024 Activepantoprazole 40 mg delayed release oral tablet (15 sources)Proton Pump InhibitorStart: 47-30-3481mkie 1 tablet by mouth once daily before breakfastpantoprazole (PROTONIX) 40 mg EC tablet Take 1 tablet (40 mg total) by mouth every morning before breakfast. 30 tablet 3 08/16/2021 Active rivaroxaban 20 mg oral tablet (20 sources)Factor Xa InhibitorStart: 82-99-5552zzar 1 tablet by mouth in the morningXARELTO 20 mg tablet tablet Indications: Atrial fibrillation, unspecified type (CMS-HCC) TAKE 1 TABLET (20 MG TOTAL) BY MOUTH IN THE MORNING 90 tablet 2 12/19/2024 ActiveStart: 05-19-2023 End: 47-85-6917hvbb 1 tablet by mouth once dailyXarelto 20 [...] mg oral tablet (14 sources)Opioid Agonist End: 99-50-4502cdtz 1 tablet by mouth every six hours as needed for pain HYDROcodone-acetaminophen (NORCO) 5-325 mg per tablet Take 1 tablet by mouth every 6 (six) hours asneeded for pain. 09/04/2024 Discontinued (Therapy completed)carisoprodol 350 mg oral tablet (14 sources)Muscle RelaxantStart: 12-28-2023 End: 68-57-3204fyju 1 tablet by mouth three times daily as needed for muscle spasmscarisoprodoL (SOMA) 350 mg tablet Take 1 tablet (350 mg total) by mouth 3 (three) times a day as needed for muscle spasms. 12/28/2023 09/04/2024 Discontinued (Therapy completed)sodium hypochlorite 2.5 mg/ml topical solution (14 sources) End: 35-71-7553ayngsn hypochlorite (DAKIN'S, HALF-STRENGTH,) 0.25 % external solution Apply 1 Application topically daily as needed for wound care (Use to clean left foot wound as instructed.). Use to clean left foot wound as instructed. 09/04/2024 Discontinued (Therapy completed)lactobacillus acidophilus [id number] unt / pectin 10 mg oral capsule (14 sources) End: 76-85-9145fxcb 1 capsule by mouth once daily at breakfastacidophilus- pectin, citrus 100 million cell-10 mg capsule Take by mouth daily with breakfast. 09/04/2024 Discontinued (Therapy completed)1 ml methylPREDNISolone acetate 40 mg/ml injection (4 sources)CorticosteroidStart: 10-02-2024 End: 69-98-7466zkoudnVZXJPUCeragv acetate (DEPO-Medrol) injection 40 mgStart: 10-02-2024 End: 84-48-089359 mg, Intra-articular, Once PRN Procedure, Starting on Mon10/02/24 at 1335, For 1 doseOZEMPIC 0.25 mg or 0.5 mg (2 mg/3 mL) pen injector (14 sources)Start: 11-28-2023 End: 06-24-2559cufwpz 0.5 mg by subcutaneous injection every weekOZEMPIC 0.25 mg or 0.5 mg (2 mg/3 mL) pen injector Inject 0.5 mg under the skin once a week. 11/28/2023 09/04/2024 Discontinued (Therapy completed)Start: 23-99-3379gxmyhw 0.5 mg by subcutaneous injection every weekOZEMPIC 0.25 mg or 0.5 mg (2 mg/3 mL) pen injector Inject 0.5 mg under the skin once a week. 11/28/2023 Active tamsulosin hydrochloride 0.4 mg oral capsule (20 sources)alpha-Adrenergic BlockerStart: 05-02-2020 End: 69-22-8900uyzy 1 capsule by mouth in the morningtamsulosin [...] foot; Translations: [OTHER ACQUIRED DEFORMITIES LT FOOT]Onset: 30-08-2901XrnzbmynGkypdfkpl infection; unspecified site (1 source)Bacteremia; Translations: [BACTEREMIA]Onset: 02-90-0162MugrpjfsFufdpvf dysrhythmias (20 sources)Unspecified atrial fibrillation; Translations: [Paroxysmal atrial fibrillation]Onset: 168010-35-0274VxlzwefLalnwax dysrhythmias (1 source)Bradycardia, unspecified; Translations: [BRADYCARDIA UNSPECIFIED] Onset: 50-96-6542IthaawnmDzgnosh kidney disease (1 source)Chronic kidney disease; Translations: [Chronic kidney disease, stage 3b]Onset: 79-60-3050Vxxglgu ulcer of skin (6 sources)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 breakdown of skin; Translations: [Non-pressure chronic ulcer of left heel and midfoot limited to breakdown of skin]Onset: 30-90-6089YtolthpUcpvjqspql disorders (20 sources)Automatic implantable cardiac defibrillator in situ; Translations: [Presence of automatic (implantable) cardiac defibrillator]Onset: 12-04-2018 75-73-4233AmxmkhnAdznhqjd atherosclerosis and other heart disease (20 sources)Coronary atherosclerosis; Translations: [Atherosclerotic heart disease of zuni coronary artery without angina pectoris]Onset: 12-04-2018 36-33-6844UqlpfdsQqtnuufl mellitus with complications (20 sources)Type 2 diabetes mellitus with other skin ulcer; Translations: [Type 2 diabetes mellitus with diabetic nephropathy]Onset: 41-66-7338SilgizpGgjwjhetw of lipid metabolism (19 sources)Pure hypercholesterolemia; Translations: [Pure hypercholesterolemia, unspecified]Onset: 588084-01-9387AceyzqqF Codes: Fall (1 source)FallOnset: 87-96-7585Uialyspnr hypertension (20 sources)Essential (primary) hypertension; Translations: [Essential hypertension]Onset: 330594-87-1079FmvjxyuDqwccaiq (7 sources)Critical lower limb ischemia ; Translations: [Atherosclerosis of zuni arteries of extremities with gangrene, left leg]Onset: 09-26-2024 89-76-6500XvmpkufAmmecakmrrixx symptoms and ill-defined conditions (18 sources)Functional urinary incontinence; Translations: [Functional urinary incontinence]Onset: 142556-43-2491QsdpeadWorpsbeulfw of prostate (20 sources)Benign prostatic hypertrophy with outflow obstruction; Translations: [Benign prostatic hyperplasia with lower urinary tract symptoms]Onset: 188981-12-4665VvkirasMssyniiihbta with complications and secondary hypertension (1 source)Hypertensive chronic kidney disease with stage 1 through stage 4 chronic kidney disease, or unspecified chronic kidney disease; Translations: [HTN CKD W/STAGE 1-4 CKD/UNS CKD]Onset: 99-67-3177OyifqrbBbcivpzar arthritis and osteomyelitis (except that caused by tuberculosis or sexually transmitted di sease) (18 sources)Osteomyelitis; Translations: [Osteomyelitis, unspecified]Onset: 169538-17-9186QwnnrleUxmxsgc (2 sources)Onychomycosis due to dermatophyte ; Translations: [Tinea unguium] 37-60-5177PuaqmcxuAruzrjlgtxq deficiencies (1 source)Vitamin D deficiency, unspecified; Translations: [VITAMIN D DEFICIENCY UNSPECIFIED]Onset: 81-08-6421FlqnhocVymfnsyqyuovmh (5 sources)Arthritis of right knee; Translations: [Unilateral primary osteoarthritis, right knee]Onset: 033184-42-1157AlztzlkKthhr aftercare (1 source)Long-term current use of drug therapy; Translations: [Encounter for therapeutic drug level monitoring]33-59-8757MmutcdwtVacmv bone disease and musculoskeletal deformities (8 sources)History of amputation of left foot; Translations: [Acquired absence of left foot]84-69-6479XtfsgpbThjya circulatory disease (4 sources)Other disorder of circulatory system; Translations: [OTHER DISORDER CIRCULATORY SYSTEM]Onset: 90-21-9639VbiuhipoQfcfj circulatory disease (1 source)Other specified symptoms and signs involving the circulatory and respiratory systems; Translations:[OTH SPEC SX SIGNS INVLV CIRC RS]Onset: 71-31-5214JevhegmoEecco connective tissue disease (4 sources)Pain in left foot; Translations: [PAIN IN LEFT FOOT]Onset: 08-09-2022 EpisodicOther non-traumatic joint disorders (4 sources)Effusion of right knee joint; Translations: [Effusion, right knee] 84-72-8565OaburfpdGtndh nutritional; endocrine; and metabolic disorders (18 sources)Hypomagnesemia; Translations: [Hypomagnesemia]Onset: 11-17-2021 48-79-6504CjzgbeqXkehv skin disorders (2 sources)Dystrophia unguium; Translations: [Nail dystrophy]78-70-9663Chcrzjwu Peripheral and visceral atherosclerosis (3 sources)Peripheral vascular disease, unspecified; Translations: [Peripheral vascular disease]Onset: 357092-28-1521FeyzqbtRkeb and subcutaneous tissue infections (2 sources)Paronychia of toe of right foot; Translations: [Cellulitis of right toe]45-04-3859IubkveazTbqkwlsdkxd; intervertebral disc disorders; other back problems (18 sources)Lumbosacral spondylosis without myelopathy; Translations: [Spondylosis without myelopathy or radiculopathy, lumbosacral region]Onset: 268707-95-4511BicrycwPmhzqndxxohg (1 source)CHRN KIDNEY DISEASE STG 3 UNSP; Translations: [CHRN KIDNEY DISEASE STG 3 UNSP]Onset: 05-88-7690Hizovmjrueqn (1 source)critical limb ischemiaOnset: 07-12-8509Nqwxjpjxipzb (1 source)ANGIO 0-69-23Uhzhg: 51-37-6687Mrxkifgvubiy (1 source)Weakness - GeneralizedOnset: 02-70-5569Eqsfapxvpfrr (1 source)Device CheckOnset: 70-84-9405Ncabexlwoobx (1 source)Ventricular tachycardia, unspecified; Translations: [Ventricular tachycardia, unspecified]Onset: 95-90-2367Qrkvyapcxtaw (1 source)EMSOnset: 04-16-2024 Past or Other Problems Problem ClassificationProblemDateDocumented DateEpisodic/ChronicComplications of surgical procedures or medical care (18 sources)Non-healing surgical wound; Translations: [Other complications of procedures, not elsewhere classified, initial encounter]Onset: 10-01-2021 81-33-2953PlvzztqrS Codes: Fall (1 source)Unspecified fall, initial encounter; Translations: [Unspecified fall, initial encounter]Onset: 15-95-1576UwsiuhefTauzitvwrtjxa symptoms and ill- defined conditions (18 sources)Scot hematuria; Translations: [Gross hematuria]Onset: 09-15-2021 50-35-6126OxmhmeobJfdygbv and fatigue (1 source)Weakness; Translations: [Weakness]Onset: 28-85-7727OjomdefxPscphfchycu chest pain (18 sources)Chest pain; Translations: [Chest pain, unspecified]Onset: 11-22-2017 38-39-8925TuwleajuXzor wounds of head; neck; and trunk (18 sources)Open wound of scalp ; Translations: [Unspecified open wound of scalp, initial encounter]Onset: 327515-69-0158TqtbhaudFoebw acquired deformities (1 source)Spondylolysis; Translations: [Spondylolysis, lumbar region]01-09-2024 EpisodicOther aftercare (1 source)Encounter for therapeutic drug level monitoring; Translations: [Encounter for therapeutic drug level monitoring]Onset: 85-06-7959GrravrcgBarbs aftercare (1 source)Other custodial (current) drug therapy; Translations: [Other termite control representative (current) drug therapy]Onset: 35-78-1738VlxkfaxuQlgmt connective tissue disease (18 sources)Myositis; Translations: [Myositis, unspecified]Onset: 08-10-2021 47-53-0676JtfxcuniVvnhi eye disorders (18 sources)Degenerative changes of anterior chamber angle; Translations: [Degeneration of chamber angle, unspecified eye]Onset: 812684-86-9876 EpisodicOther non-traumatic joint disorders (3 sources)Pain in right knee; Translations: [Pain in joint, lower leg]Onset: 498101-87-6753VtgupvmcPmzoz non-traumatic joint disorders (1 source)Knee painOnset: 92-65-9642TbqeuhauFqrop screening for suspected conditions (not mental disorders or infectious disease) (1 source)Other specified abnormal findings of blood chemistry; Translations: [Other specified abnormal findings of blood chemistry]Onset: 91-25-9953Rwgpawei Other upper respiratory disease (1 source)Epistaxis; Translations: [Epistaxis]Onset: 69-33-0061OxolenfaErkrpijn; pneumothorax; pulmonary collapse (1 source)Pleural effusion, not elsewhere classified; Translations: [Pleural effusion, not elsewhere classified]Onset: 57-51-2098SmgegxdwYntqrdxru (except that caused by tuberculosis or sexually transmitted disease) (1 source)Pneumonia, unspecified organism; Translations: [Pneumonia, unspecified organism]Onset: 57-56-3079GyigokmaVocqe and face fractures (1 source)Fracture of nasal bones, initial encounter for closed fracture; Translations: [Fracture of nasal bones, initial encounter for closed fracture] Onset: 36-28-4242YzglzztbSqqfgyylrht; intervertebral disc disorders; other back problems (3 sources)Lumbar radiculopathy; Translations: [Radiculopathy, lumbar region] Onset: 248464-94-7840Csdijmhy Results Test NameValueInterpretationReference RangeFacilityALBUMINon 47-73-2452Ksswjgk [Mass/Vol]4.2 g/dLNormal3.2-5.3ProMedKaiser Medical CenterComment on above: Performed By: #### BMP, CBCA, 13227-1, PINR #### [facility] ([id number]) [address] [place] [address], FIRST FLOOR [place], [place] [address]BASIC METABOLIC PANELon 06-73-3174Uveta gap [Moles/Vol]11 mmol/LNormal5-15[facility], IncComment on above:Performed By: #### THIAGO, GRETCHENA, 63598-3, PINR #### [facility] ([id number]) [address] [place] [address] 54854Pcrjbvl [Mass/Vol]9.1 mg/dLNormal8.5-10.5PMarietta Osteopathic ClinicComment on above:Performed By: #### THIAGO, GRETCHENA, 32293-6, PINR #### [facility] ([id number]) [address] [place] [address], [place] [address]Daytmduj [Moles/Vol]99 mmol/EUyibdd99-032MmiWvsjtkValley Regional Medical CenterComment on above:Performed By: #### MARTHA DAS, 24109-7, PINR #### [facility] ([id number]) [address] [place] [address] 30452JX6 [Moles/Vol]28 mmol/LRlivbw71-09TcxAhhuesMarietta Osteopathic Clinic Comment on above:Performed By: #### THIAGO, GRETCHENA, 50003-6, PINR #### [facility] ([id number]) [address] [place] [address] 09938Hfjewmwnmy [Mass/Vol]1.30 mg/dLNormal0.60-1.30ProValley Regional Medical CenterComment on above:Result Comment: METHOD TRACEABLE TO IDMS STANDARD Performed By: #### THIAGO, MARTHA, 03851-1, PINR #### [facility] ([id number]) [address] [place] [address] 03263RTA/1.73 sq M.predicted among non-blacks MDRD (S/P/Bld) [Vol rate/Area]59 mL/min/{1.73_m2}Low>=60ProValley Regional Medical CenterComment on above: Result Comment: Reported eGFR is based on the CKD-EPI 2020 equation that does not use a race coefficient.Performed By: #### MARTHA DAS, 14028-5, PINR #### [facility] ([id number]) [address] [place] [address] 09469Pyhhtqf [Mass/Vol]203 mg/nKFlte55-68AvtSefxidValley Regional Medical Center Comment on above:Performed By: #### MARTHA DAS, 79214-1, PINR #### [facility] ([id number]) [address] [place] [address] 04956Cgextgjzl [Moles/Vol]4.6 mmol/LNormal3.5-5.0ProValley Regional Medical CenterComment on above:Performed By: #### MARTHA DAS, 97951-2, PINR #### [facility] ([id number]) [address] [place] [address] 85731Dwjyxt [Moles/Vol]138 mmol/FFdgaft911-876DypLlejbi [facility]remont HospitalComment on above:Performed By: #### MARTHA DAS, 43264-7, PINR #### [facility] ([id number]) [address] [place] [address] 55900Bxpw nitrogen [Mass/Vol]16 mg/dLNormal5-27ProValley Regional Medical CenterComment on above:Performed By: #### MARTHA DAS, 13926-0, PINR #### [facility] ([id number]) [address] [place] [address] 05084IJC (NO DIFF)on 28-27-4233Zudsyuvdxej distribution width (RBC) [Ratio]16.2 %High11.5-15ProValley Regional Medical CenterComment on above:Performed By: #### GRETCHEN DASA, 07644-2, PINR #### [facility] ([id number]) [address] [place] [address] 36156Assqijcdwj (Bld) [Volume fraction]36.1 %Vpw73-58ZvjTvhtunValley Regional Medical CenterComment on above:Performed By: #### THIAGO, MARTHA, 29927-1, PINR #### [facility] ([id number]) [address] [place] [address] 87846Inmmhrvvwu (Bld) [Mass/Vol]11.6 g/wKUtr93-56EpkOwkqdzSelect Medical Specialty Hospital [facility], IncComment on above:Performed By: #### THIAGO, CBCA, 56518-4, PINR #### [facility] ([id number]) [address] [place] [address] 17699ZWF (RBC) [Entitic mass]27.0 quOuhgsh14-98NeaLynxnuSelect Medical Specialty Hospital - [facility], IncComment on above:Performed By: #### THIAGO, CBCA, 49610-7, PINR #### [facility] ([id number]) [address] [place] [address] 28361PMIF (RBC) [Mass/Vol]32.2 g/iKSierxj09-70TwlVdtbwzValley Regional Medical CenterComment on above:Performed By: #### THIAGO, GRETCHENA, 69939-4, PINR #### [facility] ([id number]) [address] [place] [address] 18201XNW (RBC) [Entitic vol]84 kSYttcfo51-023MakDdkkgzSelect Medical Specialty [facility], IncComment on above:Performed By: #### THIAGO, CBCA, 55973-1, PINR #### [facility] ([id number]) [address] [place] [address] 24309Axvzjiie mean volume (Bld) [Entitic vol]8.0 fLNormal7-12 [facility], IncComment on above:Performed By: #### THIAGO, CBCA, 57235- 9, PINR #### [facility] ([id number]) [address] [place] [address] 51820Spyquiaws (Bld) [#/Vol]266 10*3/dPScgqiu891-361ByuUgqdos [facility] HospitalComment on above:Performed By: #### MARTHA DAS, 78772-7, PINR #### [facility] ([id number]) [address] [place] [address] 46516TTP COUNT4.29 X10E12/LNormal4.1-5.7ProValley Regional Medical Center Comment on above:Performed By: #### MARTHA DAS, 42971-9, PINR #### [facility] ([id number]) [address] [place] [address] 63083SXJ (Bld) [#/Vol]6.3 10*3/uLNormal4-11ProValley Regional Medical CenterComment on above:Performed By: #### MARTHA DAS, 90649-8, PINR #### [facility] ([id number]) [address] [place] [address] 06252PYCXYMAGQfs 68-82-2293Mgwpiewgr [Mass/Vol]2.1 mg/dLNormal 1.8-2.6ProValley Regional Medical CenterComment on above:Performed By: #### MARTHA DAS, 76597-3, PINR #### [facility] ([id number]) [address] [place] [address] 96533KVIANGMVBZWO / CREATININE URINE RATIOon 18-13-6644Qoqgpzp DL <= 20 mg/L (U) [Mass/Vol]9.9 mg/dLHigh0.0-1.9ProValley Regional Medical CenterComment on above:Performed By: #### MARTHA DAS, 59579-1, PINR #### [facility] ([id number]) [address] [place] [address] 22858IHUB/CREAT TANYB432.6 mg/gHigh0.0-30.0ProValley Regional Medical CenterComment on above:Performed By: #### MARTHA DAS, 79384-4, PINR #### [facility] ([id number]) [address] [place] [address], [place] [address]EGFNJ CREATININE,RDM54.83 mg/dLProMedica [facility]ost[facility] Comment on above:Performed By: #### THIAGO, CBCA, 73215-9, PINR #### [facility] ([id number]) [address] [place] [address], [place] [address]GMNUFQXGYIF HORMOME, INTACTon 71-94-1352DSC RIBMYO33 pg/mL Oaaobs24-08PjtSfkbphValley Regional Medical CenterComment on above:Performed By: #### THIAGO, CBCA, 43373-0, PINR #### [facility] ([id number]) [address] [place] [address], [place] [address]BEXGDHJYLWuw 67-64-1633Stgfseekj [Mass/Vol]3.5 mg/dLNormal 2.4-4.9ProValley Regional Medical CenterComment on above:Performed By: #### THIAGO, CBCA, 42587-8, PINR #### [facility] ([id number]) [address] [place] [address], [place] [address]RAKL ACIDon 79-94-6718Bgnsh [Mass/Vol]6.2 mg/dLNormal2.6-7.2 [facility], IncComment on above:Performed By: #### THIAGO, CBCA, 93439- 9, PINR #### [facility] ([id number]) [address] [place] [address], [place] [address]PJIGTFACMWwa 99-65-3491Nptilsqch Ql (U)NegativeNormalNegative [facility], IncComment on above:Performed By: #### THIAGO, CBCA, 01592- 9, PINR #### [facility] ([id number]) [address] [place] [address], [place] [address]NMDGX/HGBNegativeNormalNegativeSelect [facility], Inc Comment on above:Performed By: #### THIAGO, CBCA, 30825-7, PINR #### [facility] ([id number]) [address] [place] [address], [place] [address]Zsswl (U)YellowNormalYellowSelect Medical Specialty [facility], IncComment on above:Performed By: #### THIAGO, CBCA, 58067-2, PINR #### [facility] ([id number]) [address] [place] [address], [place] [address]Taempbr Ql (U)>1000 mg/dLAbnormalNegativeSelect Medical [facility], IncComment on above:Performed By: #### THIAGO, CBCA, 41839-0, PINR #### [facility] ([id number]) [address] [place] [address], [place] [address]Sczsxjf Ql (U)NegativeNormalNegFlower Hospital Comment on above:Performed By: #### THIAGO, CBCA, 87237-0, PINR #### [facility] ([id number]) [address] [place] [address], [place] [address]Xmgisaytj esterase Test strip Ql (U)SmallAbnormalNegative ProMAdventist Health TulareComment on above:Result Comment: High Concentrations of Glucose May Decrease the Reactivity of the Dipstick Leukocyte Test Pad. Performed By: #### THIAGO, CBCA, 26191-0, PINR #### [facility] ([id number]) [address] [place] [address], [place] [address]RIQKLEGrajtgtZxaddvdgWivfEhzXrottm [facility] HospitalComment on above:Performed By: #### THIAGO, CBCA, 89097-2, PINR #### [facility] ([id number]) [address] [place] [address], [place] [address]Lwgoboc Ql (U)PositiveAbnormalNegativeSelect Medical [facility], IncComment on above:Performed By: #### BMP, CBCA, 53257-1, PINR #### [facility] ([id number]) [address] [place] [address] 28973WA,URINE5.7Mprwwu5.0-8.5PMarietta Osteopathic ClinicComment on above:Performed By: #### MARTHA DAS, 92046-8, PINR #### [facility] ([id number]) [address] [place] [address] 30371Zdkqwyo Ql (U)TraceAbnormalNegativeProValley Regional Medical Center Comment on above:Performed By: #### MARTHA DAS, 32410-3, PINR #### [facility] ([id number]) [address] [place] [address] 36464N.B.OYKMI0Tiboqc3-8DzwAoagslMarietta Osteopathic ClinicComment on above: Performed By: #### MARTHA DAS, 70833-6, PINR #### [facility] ([id number]) [address] [place] [address] 65544Guschaxb gravity (U) [Rel density]1.174Jagfjn9.003-1.035 ProMAdventist Health TulareComment on above:Performed By: #### MARTHA DAS, 63284- 9, PINR #### [facility] ([id number]) [address] [place] [address] 18647XIFAYRIQMEiwfeJrtugcPxnddTmlYeaeml [facility]remont HospitalComment on above:Performed By: #### MARTHA DAS, 52036-5, PINR #### [facility] ([id number]) [address] [place] [address] 57301QLWVTJNUOFCA<1.1 eu/dLNormal<1.1 eu/dLSelect [facility], IncComment on above:Performed By: #### THIAGO, MARTHA, 03418-0, PINR #### [facility] ([id number]) [address], [place] [address]A.B.EOHRY2Gfrw3-9WjcCdzxba [facility] HospitalComment on above: Performed By: #### THIAGO, GRETCHENA, 98572-0, PINR #### [facility] ([id number]) [address] [place] [address] 24619PAQAKEY D 25 HYDROXYon 01-98-6079WEOMBXU D 25 HYD TOT36.6 ng/mL Wsqtff29.0-100.0ProMedica [facility] Foundation HospitalComment on above:Order Comment: Vitamin D status 25 [place] Vitamin D Deficiency <20 ng/mLInsufficiency 20-29 ng/mLSufficiency 30-100 ng/mLToxicity >100 ng/mLNOTE: A pediatric reference range has not been established by the jalousies installer of this kit. The [place] [employer] recommends a Vitamin D level of = or >20ng/mL in infants and children.Performed By: #### GRETCHEN DASA, 77090-2, PINR #### [facility] ([id number]) [address] [place] [address] 21681PC RETROPERITONEAL COMPLETEon 94-16-9202AF RETROPERITONEAL COMPLETEUS RETROPERITONEAL COMPLETE HISTORY: A 69-year-old [...] by Kali Luevano MD on 01/06/2025 2:08 PMNormalProValley Regional Medical CenterBEDSIDE GLUCOSEon 20-98-2724Syohnug [Mass/Vol]249 mg/xRClvf48-61 [facility], IncComment on above:Performed By: #### BMP, CBCA, 36139- 9, PINR #### [facility] ([id number]) [address] [place] [address] 67830JKU WITH AUTO DIFFERENTIALon 76-51-5169ISRDGCPVJ ABSOLUTE COUNT (10*3/UL) BY AUTOMATED COUNT0.1 10*3/uLNormal0.0-0.2PMarietta Osteopathic Clinic Comment on above:Performed By: #### BMP, CBCA, 01704-1, PINR #### [facility] ([id number]) [address] [place] [address] 63609KGGDTLPFH RELATIVE PERCENT BY AUTOMATED COUNT0.6 %Normal [facility], IncComment on above:Performed By: #### BMP, CBCA, 54935- 9, PINR #### [facility] ([id number]) [address] [place] [address] 79998YGKZLSBMAWM DIFFERENTIAL TYPEAUTOMATED DIFFERENTIALNormal [facility], IncComment on above:Performed By: #### BMP, CBCA, 91687- 9, PINR #### [facility] ([id number]) [address] [place] [address] 22299Bjsivgxhsrx (Bld) [#/Vol]0.0 10*3/uLNormal0.0-0.4[facility], IncComment on above:Performed By: #### BMP, CBCA, 51936-1, PINR #### [facility] ([id number]) [address] [place] [address] 57518ZWUFLDHNUJJ RELATIVE PERCENT BY AUTOMATED COUNT0.2 %Normal [facility], IncComment on above:Performed By: #### THIAGO, MARTHA, 04764- 9, PINR #### [facility] ([id number]) [address] [place] [address] 32107Bgnlfgotpaa distribution width (RBC) [Ratio]16.3 %High11.5-15 [facility], IncComment on above:Performed By: #### MARTHA DAS, 40420- 9, PINR #### [facility] ([id number]) [address] [place] [address] 24196Oguifgpedt (Bld) [Volume fraction]34.6 %Nxf69-43WsoRenfbzSelect Medical Specialty [facility], IncComment on above:Performed By: #### MARTHA DAS, 52571-4, PINR #### [facility] ([id number]) [address] [place] [address] 78447Gframybplc (Bld) [Mass/Vol]11.4 g/nVPcl38-67JpeXpzjoaSelect Medical Specialty Hospital - [facility], IncComment on above:Performed By: #### MARTHA DAS, 21462-3, PINR #### [facility] ([id number]) [address] [place] [address] 16519MVGBDPLQSAY ABSOLUTE COUNT (10*3/UL) BY AUTOMATED COUNT1.5 10*3/uLNormal1.0-3.5ProMedica [facility] Foundation HospitalComment on above:Performed By: #### THIAGO, CBCA, 37592-5, PINR #### [facility] ([id number]) [address] [place] [address] 11839XENKNPDRAGF RELATIVE PERCENT BY AUTOMATED COUNT16.3 %Normal [facility], IncComment on above:Performed By: #### BMP, CBCA, 86775- 9, PINR #### [facility] ([id number]) [address] [place] [address] 56107BIE (RBC) [Entitic mass]29.6 ywCbquep26-78MfmAydzodSelect Medical Specialty Hospital - [facility], IncComment on above:Performed By: #### BMP, CBCA, 37761-4, PINR #### [facility] ([id number]) [address] [place] [address] 27486EMKX (RBC) [Mass/Vol]32.9 g/tEQfiiwf05-73MjfJavpsdValley Regional Medical CenterComment on above:Performed By: #### THIAGO, CBCA, 80430-5, PINR #### [facility] ([id number]) [address] [place] [address] 43854BZO (RBC) [Entitic vol]90 cMEqebtx57-616JqaRilgmm [facility]rem[facility] HospitalComment on above:Performed By: #### THIAGO, CBCA, 51324-5, PINR #### [facility] ([id number]) [address] [place] [address] 90000ONJSMOHLZ ABSOLUTE COUNT (10*3/UL) BY AUTOMATED COUNT1.1 10*3/uLHigh0.0-0.9[facility], IncCommemorial healthcare on above:Performed By: #### THIAGO, CBCA, 39120-7, PINR #### [facility] ([id number]) [address] [place] [address] 80575TPRTWVGZG RELATIVE PERCENT BY AUTOMATED COUNT12.7 %Normal ProMAdventist Health TulareComment on above:Performed By: #### BMP, CBCA, 31296- 9, PINR #### [facility] ([id number]) [address] [place] [address] 94379KRHPFDAKSVH ABSOLUTE COUNT BY AUTOMATED COUNT6.4 10*3/uLNormal 1.5-6.6ProMedica North Slope HospitalComment on above:Performed By: #### THIAGO, CBCA, 47460-2, PINR #### [facility] ([id number]) [address] [place] [address] 53057YNYIDCMCVMT RELATIVE PERCENT BY AUTOMATED COUNT70.2 %Normal [facility], IncComment on above:Performed By: #### THIAGO, CBCA, 72462- 9, PINR #### [facility] ([id number]) [address] [place] [address] 44773Rphtitnv mean volume (Bld) [Entitic vol]7.6 fLNormal7-12 [facility], IncComment on above:Performed By: #### THIAGO, CBCA, 83033- 9, PINR #### [facility] ([id number]) [address] [place] [address] 75342Fnmgmejpw (Bld) [#/Vol]305 10*3/fUIfjcuq563-835DyeJadkex [facility] HospitalComment on above:Performed By: #### THIAGO, CBCA, 64017-3, PINR #### [facility] ([id number]) [address] [place] [address] 80590XHL COUNT3.85 X10E12/LLow4.1-5.7[facility] Comment on above:Performed By: #### THIAGO, CBCA, 56027-0, PINR #### [facility] ([id number]) [address] [place] [address] 88860HJE (Bld) [#/Vol]9.0 10*3/uLNormal4-11[facility], IncComment on above:Performed By: #### THIAGO, CBCA, 72693-4, PINR #### [facility] ([id number]) [address] [place] [address] 83863HLYIJPRJWWGWL METABOLIC PANELon 74-67-5322Hapjvif [Mass/Vol]3.9 g/dLNormal3.2-5.3PMarietta Osteopathic ClinicComment on above:Performed By: #### MARTHA DAS, 66593-4, PINR #### [facility] ([id number]) [address] [place] [address], [place] [address]EHY [Catalytic activity/Vol]43 U/NKiipzu89-145KfzIospvsValley Regional Medical CenterComment on above:Performed By: #### MARTHA DAS, 84165-4, PINR #### [facility] ([id number]) [address] [place] [address], [place] 239[address]AVG [Catalytic activity/Vol]11 U/LNormal<=40ProValley Regional Medical CenterComment on above:Performed By: #### MARTHA DAS, 34513-3, PINR #### [facility] ([id number]) [address] [place] [address], [place] 113[address]Uhhla gap [Moles/Vol]10 mmol/LNormal5-15ProValley Regional Medical CenterComment on above:Performed By: #### MARTHA DAS, 82166-5, PINR #### [facility] ([id number]) [address] [place] [address], [place] [address]KWW [Catalytic activity/Vol]19 U/LNormal<=41ProValley Regional Medical CenterComment on above:Performed By: #### MARTHA DAS, 75712-7, PINR #### [facility] ([id number]) [address] [place] [address], [place] 17[address]Nqwnhbqnb [Mass/Vol]0.5 mg/dLNormal0.3-1.2PMarietta Osteopathic ClinicComment on above:Performed By: #### MARTHA DAS, 50386-6, PINR #### [facility] ([id number]) [address] [place] [address], [place] 00[address]Yblrxbx [Mass/Vol]8.8 mg/dLNormal8.5-10.5PMarietta Osteopathic ClinicComment on above:Performed By: #### MARTHA DAS, 76050-7, PINR #### [facility] ([id number]) [address] [place] [address] 19733Epoonlxt [Moles/Vol]100 mmol/KIduioa77-433RxkWzcgppSelect Medical Specialty [facility], IncComment on above:Performed By: #### MARTHA DAS, 59882-2, PINR #### [facility] ([id number]) [address] [place] [address] 93103JY4 [Moles/Vol]24 mmol/QQtkgju55-06KfyGqktyjMarietta Osteopathic Clinic Comment on above:Performed By: #### MARTHA DAS, 84893-5, PINR #### [facility] ([id number]) [address] [place] [address] 26216Gabkdnnegr [Mass/Vol]1.49 mg/dLHigh0.70-1.20[facility], IncComment on above:Result Comment: METHOD TRACEABLE TO IDMS STANDARD Performed By: #### MARTHA DAS, 72867-8, PINR #### [facility] ([id number]) [address] [place] [address] 50840PJL/1.73 sq M.predicted among non-blacks MDRD (S/P/Bld) [Vol rate/Area]50 mL/min/{1.73_m2}Low>=60ProValley Regional Medical CenterComment on above: Result Comment: eGFR not reported due to non-numeric value for Creatinine. Reported eGFR is based on the CKD-EPI 202 equation that does not use a race coefficient.Performed By: #### MARTHA DAS, 18178-8, PINR #### [facility] ([id number]) [address] [place] [address] 15166Hsfsmcc [Mass/Vol]246 mg/iLTkuj11-35UmbDbopjfSelect Medical Specialty Hospital [facility], Inc Comment on above:Performed By: #### MARTHA DAS, 83670-3, PINR #### [facility] ([id number]) [address] [place] [address] 84559Iruvgzjto [Moles/Vol]4.4 mmol/LNormal3.5-5.0ProValley Regional Medical CenterComment on above:Performed By: #### THIAGO, CBCA, 41275-1, PINR #### [facility] ([id number]) [address] [place] [address] 43942Suriamz [Mass/Vol]7.2 g/dLNormal6.0-8.0ProValley Regional Medical CenterComment on above:Performed By: #### THIAGO, CBCA, 18960-4, PINR #### [facility] ([id number]) [address] [place] [address] 13637Ctexse [Moles/Vol]134 mmol/RBrtiwu390-653JfuFfjzch [facility] HospitalComment on above:Performed By: #### THIAGO, CBCA, 28267-3, PINR #### [facility] ([id number]) [address] [place] [address] 24183Dmhf nitrogen [Mass/Vol]23 mg/dLNormal5-27ProValley Regional Medical CenterComment on above:Performed By: #### THIAGO, CBCA, 42068-5, PINR #### [facility] ([id number]) [address] [place] [address] 73699S-OLEBSto 11-14-2024D DIMER<^133Nglqtu3-224StiRfzpel [facility]ont HospitalComment on above:Result Comment: Results <255 ng/mL DDU: The presensence of a VTE can safely be excluded with a negative D-Dimer result and Wells score. A negative result doesn't exclude the possibility of DIC. The test should be repeated along with other diagnostic tests if the patient's symptoms persist or worsen.Performed By: #### BMP, CBCA, 91071-7, PINR #### [facility] ([id number]) [address] [place] [address] 23173WHNNWVeo 59-43-5316Zheitk [Catalytic activity/Vol]36 U/LNormal 17-40ProValley Regional Medical CenterComment on above:Performed By: #### GRETCHEN DASA, 96565-3, PINR #### [facility] ([id number]) [address] [place] [address] 17333ZQMXUGNUUks 89-63-5902Xjujvakys [Mass/Vol]2.1 mg/dLNormal 1.8-2.6ProValley Regional Medical CenterComment on above:Performed By: #### GRETCHEN DASA, 06609-8, PINR #### [facility] ([id number]) [address] [place] [address] 85913CPZV I, HIGH SENSITIVITY 1 HOURon 60-19-7241BUVFAIDZ I, HIGH SENSITIVITY8 ng/LNormal<21ProValley Regional Medical CenterComment on above:Performed By: #### THIAGO, CBCA, 26131-2, PINR #### [facility] ([id number]) [address] [place] [address] 69594UFXYCKYG I, HIGH SENSITIVITY 0 HOURon 87-16-8375DXHHKZIV I, HIGH SENSITIVITY7 ng/LNormal<21ProValley Regional Medical CenterComment on above: Performed By: #### THIAGO, CBCA, 66903-0, PINR #### [facility] ([id number]) [address] [place] [address] 99054WN CHEST 1 VWon 35-24-4927ZK CHEST 1 VWXR CHEST 1 VW History: [...] by Fausto Angulo MD on 11/14/2024 1:19 [facility] HospitalXR FO[facility] MIN 3 VWSon 25-98-2857XX FOOT LT MIN 3 VWSXR FOOT LT [...] by Stan Jaramillo MD on 11/14/2024 1:31 [facility] 11-12-2024L Specimen: [id number] Received: 11/13/24 Status: AUSTIN Yin Num: [id number] Spec Type: Surgical Subm Dr: Mariana Gutiérrez,NIKKI, MS Tissues: A DIGIT AMPUTATION (LEFT FOREFOOT) Procedures: HE/5, Gross/Micro L4, Decalcification Age/ Patient Sex Location Account Attending Physician Tomas Frausto 69/M LABELL [id number] Mariana Gutiérrez DPM, MS SPEC NUM: [id number] RECD: 11/13/24 STATUS: AUST[place] YIN NUM: [id number] EL: 11/12/[address]: Mariana Gutiérrez DPM, MS ENTERED: 11/13/[address]: Christy,Lab SPEC TYPE: Surgical DEPT: YANIV HESTER ENTERED BY: [id number] RECV BY: [id number] ORDERED: HE/5, Gross/Micro L4, Decalcification ORDERED: HE/5, [...] end, consistent with a previous resection. Specimen: [id number] Received: 11/13/24 Status: AUSTIN Yin Num: [id number] Spec Type: Surgical Subm Dr: Mariana Gutiérrez,DPEdvin, MS Tissues: A DIGIT AMPUTATION (LEFT FOREFOOT) Procedures: /Shayan, Gross/Micro L4, Decalcification Patient: Tomas Frausto [id number] (Continued) Specimen: [id number] Received: 11/13/24 (Continued) Gross Description (Continued) Signed (signature on file) Howie Up MD 11/19/24 6314 Specimen: [id number] Received: 11/13/24 Status: AUSTIN Yin Num: [id number] Spec Type: Surgical Subm Dr: Mariana Gutiérrez,DPEdvin, MS Tissues: A DIGIT AMPUTATION (LEFT FOREFOOT) Procedures: HE/5, Gross/Micro L4, Decalcification Patient: LisbetTomas [id number] (Continued) Specimen: [id number] Received: 11/13/24 (Continued) Gross Description (Continued) Cassettes: A1 Tangential sections of proximal skin margin A2 Crusted wound A3 Left third digit crusted area with underlying metatarsal bone, decalcified A4 Discolored soft tissue and underlying left, second proximal phalangeal bone, decalcified A5 Discolored soft tissue and underlying left, first metatarsal bone, decalcified (5, , LX89-950 A)Eda Microscopic Description Microscopic examination is performed CPT Codes 90938 42411 Specimen: [id number] Received: 11/13/24 Status: AUSTIN Ashherber Num: [id number] Spec Type: Surgical Subm Dr: Mariana Gutiérrez,NIKKI, MS Tissues: A DIGIT AMPUTATION (LEFT FOREFOOT) Procedures: HE/5, Gross/Micro L4, Decalcification Patie (more content not included)...[facility] Physician GroupNo Panel Informationon 27-49-2124KahileiEDWARD Hills 10/02/2024 2:10 PM L Inj/Asp: R [...] discussed. Consent was given by the patient. [facility] Genesis HospitalNOTX HealthcareGlucose (Bld) [Mass/Vol]on 96-40-9859Fogq nitrogen [Mass/Vol]19 mg/dLNormal6-27Memorial Hospitalca [facility] Health SystemXR KNEE RT 3 VWSon 42-21-2452UM KNEE RT 3 VWSXR KNEE RT 3 [...] by Sandro Alfonso MD on 09/13/2024 12:54 PMNormalProValley Regional Medical CenterDevice Interrogationon 95-68-8101XxuGvbgzqOhioHealth Berger HospitalRadiology Study observation (narrative)[facility] SystemPOCT EKGon 44-84-6633ItbWbhqupCleveland Clinic Lutheran Hospital AND AUTO DIFFon 38-80-3765GYSXQKBJ BASOPHIL0.0 X10E9/LNormal 0.0-0.2PMarietta Osteopathic ClinicComment on above:Performed By: #### THIAGO CBCA, 51975-7, PINR #### [facility] ([id number]) [address] [place] [address] 71383KLEWUKTJ NEUTROPHIL3.8 X10E9/LNormal1.5-6.6[facility], IncComment on above:Performed By: #### GRETCHEN DASA, 19125-3, PINR #### [facility] ([id number]) [address] [place] [address] 40615Amghzymhl/100 WBC (Bld)0.8 %NormalProValley Regional Medical Center Comment on above:Performed By: #### THIAGO CBCA, 66673-9, PINR #### [facility] ([id number]) [address] [place] [address] 58678Ubdwhnxhsam (Bld) [#/Vol]0.0 10*3/uLNormal0.0-0.4[facility], IncComment on above:Performed By: #### BMP, CBCA, 64934-9, PINR #### [facility] ([id number]) [address] [place] [address] 02292Qkqvoprwnrp/100 WBC (Bld)0.7 %NormalSelect Medical Specialty Hospital [facility], Inc Comment on above:Performed By: #### THIAGO, CBCA, 94938-0, PINR #### [facility] ([id number]) [address] [place] [address] [id number] distribution width (RBC) [Ratio]14.6 %Normal 11.5-15.0[facility], IncComment on above:Performed By: #### THIAGO, CBCA, 56357-4, PINR #### [facility] ([id number]) [address] [place] [address] 93749Ygkhqrbxdi (Bld) [Volume fraction]42.0 %Cpofkj51-84AibUulbltValley Regional Medical CenterComment on above:Performed By: #### THIAGO, CBCA, 81195-8, PINR #### [facility] ([id number]) [address] [place] [address] [id number] (Bld) [Mass/Vol]13.9 g/mFOqprwp21.0-17.0[facility], IncComment on above:Performed By: #### THIAGO, CBCA, 52221-2, PINR #### [facility] ([id number]) [address] [place] [address] 63708Mpsdduxsmbq (Bld) [#/Vol]1.5 10*3/uLNormal1.0-3.5PMarietta Osteopathic ClinicComment on above:Performed By: #### THIAGO, CBCA, 69509-4, PINR #### [facility] ([id number]) [address] [place] [address] [id number]/100 WBC (Bld)24.7 %NormalSelect Medical Specialty [facility], Inc Comment on above:Performed By: #### BMP, CBCA, 93831-0, PINR #### [facility] ([id number]) [address] [place] [address] [id number] (RBC) [Entitic mass]30.7 ocXbxnnw35-78ExtWoovewValley Regional Medical CenterComment on above:Performed By: #### BMP, CBCA, 65019-3, PINR #### [facility] ([id number]) [address] [place] [address] 39850XAOC (RBC) [Mass/Vol]33.0 g/nPYrrpxv53-82RpqBsiipxValley Regional Medical CenterComment on above:Performed By: #### BMP, CBCA, 65269-7, PINR #### [facility] ([id number]) [address] [place] [address] [id number] (RBC) [Entitic vol]93 zGXcbeiy04-396MoaBtrjtu Fremont HospitalComment on above:Performed By: #### BMP, CBCA, 80526-9, PINR #### [facility] ([id number]) [address] [place] [address] 61261Vcncqkvfz (Bld) [#/Vol]0.6 10*3/uLNormal0-0.9[facility], IncComment on above:Performed By: #### BMP, CBCA, 59887-8, PINR #### [facility] ([id number]) [address] [place] [address] 79982Mxifkxmet/100 WBC (Bld)9.7 %[facility] Comment on above:Performed By: #### BMP, CBCA, 17342-4, PINR #### [facility] ([id number]) [address] [place] [address] 08946Xevfbabnnop/100 WBC (Bld)64.1 %[facility] Comment on above:Performed By: #### THIAGO, MARTHA, 89009-8, PINR #### [facility] ([id number]) [address] [place] [address] 48610Mzuwxepl mean volume (Bld) [Entitic vol]8.2 fLNormal7-12 [facility], IncComment on above:Performed By: #### THIAGO, MARTHA, 48818- 9, PINR #### [facility] ([id number]) [address] [place] [address] 79245Ibbqwafgp (Bld) [#/Vol]315 10*3/eZGikouc526-163AsvOiqxgsSelect Medical Specialty Hospital [facility], IncComment on above:Performed By: #### THIAGO, MARTHA, 54902-8, PINR #### [facility] ([id number]) [address] [place] [address] 92115TZU COUNT4.52 X10E12/LNormal4.10-5.70[facility] Comment on above:Performed By: #### THIAGO, MARTHA, 02446-0, PINR #### [facility] ([id number]) [address] [place] [address] 95142IFL (Bld) [#/Vol]5.9 10*3/uLNormal4.0-11.0[facility], IncComment on above:Performed By: #### MARTHA DAS, 77011-1, PINR #### [facility] ([id number]) [address] [place] [address] 01934GSM [Mass/Vol]on 07-22-2024 REACTIVE PROTEIN1.9 mg/dLHigh 0.000-0.744PMarietta Osteopathic ClinicComment on above:Performed By: #### THIAGO, GRETCHENA, 06039-3, PINR #### [facility] ([id number]) [address] [place] [address] 06057LCY Photometric method (Bld) [Velocity]on 90-91-6077TYS, ERYTHROCYTE SEDIMENTATION RATE47 mm/hHigh0-20[facility], IncComment on above:Performed By: #### THIAGO, CBCA, 26760-9, PINR #### [facility] ([id number]) [address] [place] [address] 83899NOC A1C (GLYCO-HGB)on 13-59-7774Duxcokq [Mass/Vol]203 mg/dL NormalProValley Regional Medical CenterComment on above:Performed By: #### THIAGO, CBCA, 35607-5, PINR #### [facility] ([id number]) [address] [place] [address] 75806FcL2e (Bld) [Mass fraction]8.7 %High4.4-5.6[facility], IncComment on above:Result Comment: NOTE ADA Guidelines Result HgbA1c Normal : less than 5.7 % Prediabetes : 5.7 % to 6.4 % Diabetes : > 6.4 % Use with caution in patients with abnormal hemoglobin variants as the half-life of red blood cells and in vivo glycation rates are affected.Performed By: #### THIAGO, CBCA, 96101-3, PINR #### [facility] ([id number]) [address] [place] [address] 84655VOSBVPPUKUHBS METABOLIC PANELon 45-53-3236Kpnlpvr [Mass/Vol]4.2 g/dLNormal3.2-5.3ProMedica Kaiser Foundation HospitalComment on above:Performed By: #### CMP, TSHR #### [facility] ([id number]) [address] [place] [address] 79549 #### 32505-4 #### [facility] ([id number]) [address] [place] [address], [address] [place], [place] [address]DCU [Catalytic activity/Vol]46 U/WWeryte13-496IyiHoiejcValley Regional Medical CenterComment on above:Performed By: #### CMP, TSHR #### [facility] ([id number]) [address] [place] [address] 76523 #### 90020-8 #### [facility] ([id number]) [address], [address] [place], [place] [address]TAN [Catalytic activity/Vol]16 U/LNormal0-40ProValley Regional Medical CenterComment on above:Performed By: #### CMP, TSHR #### [facility] ([id number]) [address] [place] [address] 99880 #### 73395-8 #### [facility] ([id number]) [address], [address] [place], [place] [address]Aobuh gap [Moles/Vol]10 mmol/LNormal5-15ProValley Regional Medical CenterComment on above:Performed By: #### CMP, TSHR #### [facility] ([id number]) [address] [place] [address] 73359 #### 44456-9 #### [facility] ([id number]) [address], [address] [place] [address]YGB [Catalytic activity/Vol]16 U/LNormal0-41[facility], IncComment on above:Performed By: #### CMP, TSHR #### [facility] ([id number]) [address] [place] [address] 85647 #### 45547-3 #### [facility] ([id number]) [address], [address] [place], [place] [address]Zxgitvbjh [Mass/Vol]0.5 mg/dLNormal0.3-1.2ProMedKaiser Medical CenterComment on above:Performed By: #### CMP, TSHR #### [facility] ([id number]) [address] [place] [address] 90158 #### 62030-6 #### [facility] ([id number]) [address], [address] [place] [address]Tfonels [Mass/Vol]9.3 mg/dLNormal8.5-10.5PMarietta Osteopathic ClinicComment on above:Performed By: #### CMP, TSHR #### [facility] ([id number]) [address] [place] [address] 88961 #### 45473-9 #### [facility] ([id number]) [address] [facility], [address] [place], [place] [address]Kllvghfh [Moles/Vol]99 mmol/TNbclwu10-658AbnNcfomxValley Regional Medical CenterComment on above:Performed By: #### CMP, TSHR #### [facility] ([id number]) [address] [place] [address] 75164 #### 40976-2 #### [facility] ([id number]) [address] [facility], [address] [place], [place] [address]UJ8 [Moles/Vol]26 mmol/OZovqyt39-49KhvEeumocMarietta Osteopathic Clinic Comment on above:Performed By: #### CMP, TSHR #### [facility] ([id number]) [address] [place] [address] 35225 #### 34465-1 #### [facility] ([id number]) [address], [address] [place], [place] [address]Twtepomvos [Mass/Vol]1.27 mg/dLHigh0.70-1.20[facility], IncComment on above:Result Comment: METHOD TRACEABLE TO IDMS STANDARD Performed By: #### CMP, TSHR #### [facility] ([id number]) [address] [place] [address] [place] [address] #### 83814-5 #### [facility] ([id number]) [address], [address] [place], [place] [address]JUP/1.73 sq M.predicted among non-blacks MDRD (S/P/Bld) [Vol rate/Area]61 mL/min/{1.73_m2}Normal>59ProValley Regional Medical CenterComment on above:Result Comment: Reported eGFR is based on the CKD-EPI 2020 equation that does not use a race coefficient.Performed By: #### CMP, TSHR #### [facility] ([id number]) [address] [place] [address] 11697 #### 46038-4 #### [facility] ([id number]) [address], [address] [place], [place] [address]Wavpwgu [Mass/Vol]177 mg/oNVfrc47-39MqnBstdqhValley Regional Medical Center Comment on above:Performed By: #### CMP, TSHR #### [facility] ([id number]) [address] [place] [address] 57777 #### 05827-6 #### [facility] ([id number]) [address], [address] [place], [place] [address]Piwlgcarz [Moles/Vol]4.5 mmol/LNormal3.5-5.0ProValley Regional Medical CenterComment on above:Performed By: #### CMP, TSHR #### [facility] ([id number]) [address] [place] [address] 69134 #### 28692-4 #### [facility] ([id number]) [address], [address] [place], [place] [address]Jvaskut [Mass/Vol]7.6 g/dLNormal6.0-8.0ProValley Regional Medical CenterComment on above:Performed By: #### CMP, TSHR #### [facility] ([id number]) [address] [place] [address] 61976 #### 20327-6 #### [facility] ([id number]) [address], [address] [place], [place] [address]Bhazmq [Moles/Vol]135 mmol/RYpwsqh353-914EyaBebsfi Fremont HospitalComment on above:Performed By: #### CMP, TSHR #### [facility] ([id number]) [address] [place] [address] 99750 #### 58556-0 #### [facility] ([id number]) [address] [facility], [address] [place], [place] [address]Vgzg nitrogen [Mass/Vol]24 mg/dLNormal5-27ProValley Regional Medical CenterComment on above:Performed By: #### ANNE, TSHR #### [facility] ([id number]) [address] [place] [address] 49231 #### 52139-7 #### [facility] ([id number]) [address] [facility], [address] [place], [place] [address]Kcsbk 1995 panelon 88-14-2520Yqofqgwwjlc [Mass/Vol]137 mg/dLLow 150-200ProValley Regional Medical CenterComment on above:Performed By: #### MARTHA DAS, 39220-9, PINR #### [facility] ([id number]) [address] [place] [address] 83752Rzrtqckjpwo in HDL [Mass/Vol]32 mg/dLLow>39ProValley Regional Medical CenterComment on above:Result Comment: HDL <40 mg/dL - High Risk HDL > or = 40mg/dL- Desirable HDL >60 mg/dL - Negative Risk Performed By: #### BMP, CBCA, 94962-1, PINR #### [facility] ([id number]) [address] [place] [address] 48052Wkfupoztnpw in LDL [Mass/Vol]50 mg/dLNormal<130ProValley Regional Medical CenterComment on above:Result Comment: LDL <100 mg/dL - Desirable LDL >160 mg/dL - High Risk Performed By: #### THIAGO, CBCA, 24818-4, PINR #### [facility] ([id number]) [address] [place] [address] 23357Lzzvanujgiv in VLDL [Mass/Vol]55 mg/dLHigh0-30ProValley Regional Medical CenterComment on above:Performed By: #### THIAGO, GRETCHENA, 21717-0, PINR #### [facility] ([id number]) [address] [place] [address] 95592HLTCJLIPMUR:HDL4.5Azmzyb2.0-5.0[facility] Comment on above:Performed By: #### THIAGO, CBCA, 22561-5, PINR #### [facility] ([id number]) [address] [place] [address] 00245Tfehymzybhqa [Mass/Vol]275 mg/rHCyia14-739HysBjjoomValley Regional Medical CenterComment on above:Performed By: #### THIAGO, CBCA, 69721-4, PINR #### [facility] ([id number]) [address] [place] [address] 44952SDG WITH REFLEXon 35-58-4774XZM0.67 uIU/mLNormal0.49-4.67 [facility], IncComment on above:Performed By: #### CMP, TSHR #### [facility] ([id number]) [address] [place] [address], [place] [address] #### 68379-2 #### [facility] ([id number]) [address] [place] [address], [address] [place], [place] [address]DORCI METABOLIC PANLon 39-39-8988Enyem gap [Moles/Vol]10 mmol/L Normal5-15ProValley Regional Medical CenterComment on above:Performed By: #### THIAGO CBCA, 33425-7, PINR #### [facility] ([id number]) [address] [place] [address], [place] [address]Mblxbtr [Mass/Vol]9.3 mg/dLNormal8.5-10.5PMarietta Osteopathic ClinicComment on above:Performed By: #### THIAGO CBCA, 86771-7, PINR #### [facility] ([id number]) [address] [place] [address], [place] [address]Kluzdosb [Moles/Vol]101 mmol/OYvfeej05-563TrbGoftsxValley Regional Medical CenterComment on above:Performed By: #### THIAGO, CBCA, 28786-3, PINR #### [facility] ([id number]) [address] [place] [address], [place] [address]HY2 [Moles/Vol]27 mmol/BHjpjhk88-22AisGoyxgkMarietta Osteopathic Clinic Comment on above:Performed By: #### THIAGO, CBCA, 53585-6, PINR #### [facility] ([id number]) [address] [place] [address], [place] [address]Xsqmptyalm [Mass/Vol]1.19 mg/dLNormal0.70-1.20[facility], IncComment on above:Result Comment: METHOD TRACEABLE TO IDMS STANDARD Performed By: #### THIAGO, CBCA, 57294-8, PINR #### [facility] ([id number]) [address] [place] [address], [place] [address]DAB/1.73 sq M.predicted among non-blacks MDRD (S/P/Bld) [Vol rate/Area]66 mL/min/{1.73_m2}Normal>59ProValley Regional Medical CenterComment on above:Result Comment: Reported eGFR is based on the CKD-EPI 2020 equation that does not use a race coefficient.Performed By: #### MARTHA DAS, 78424-5, PINR #### [facility] ([id number]) [address] [place] [address] 52613Uufglsx [Mass/Vol]165 mg/iAPdaj91-02EynFclqkpSelect Medical Specialty [facility], Inc Comment on above:Performed By: #### MARTHA DSA, 88185-6, PINR #### [facility] ([id number]) [address] [place] [address] 05890Zuqzfuiez [Moles/Vol]4.2 mmol/LNormal3.5-5.0ProValley Regional Medical CenterComment on above:Performed By: #### MARTHA DAS, 46333-4, PINR #### [facility] ([id number]) [address] [place] [address] 85934Xjkcje [Moles/Vol]138 mmol/YSdohfs725-653DidOlvowr Fremont HospitalComment on above:Performed By: #### MARTHA DAS, 38250-6, PINR #### [facility] ([id number]) [address] [place] [address] 04062Ltwo nitrogen [Mass/Vol]17 mg/dLNormal5-27ProValley Regional Medical CenterComment on above:Performed By: #### MARTHA DAS, 47710-1, PINR #### [facility] ([id number]) [address] [place] [address] 10169EJQ AND AUTO DIFFon 73-79-0291EHBJBTZT BASOPHIL0.0 X10E9/L Normal0.0-0.2ProMedKaiser Medical CenterComment on above:Performed By: #### THIAGO, CBCA, 72956-0, PINR #### [facility] ([id number]) [address] [place] [address] 06842TWFCAZHT NEUTROPHIL4.0 X10E9/LNormal1.5-6.6[facility], IncComment on above:Performed By: #### THIAGO, CBCA, 65278-1, PINR #### [facility] ([id number]) [address] [place] [address] 21975Rbobynnln/100 WBC (Bld)0.5 %[facility] Comment on above:Performed By: #### THIAGO, CBCA, 03834-2, PINR #### [facility] ([id number]) [address] [place] [address] 06889Tvdxkuxttjc (Bld) [#/Vol]0.0 10*3/uLNormal0.0-0.4ProValley Regional Medical CenterComment on above:Performed By: #### THIAGO, CBCA, 95786-4, PINR #### [facility] ([id number]) [address] [place] [address] 68953Zcmhdcgaxal/100 WBC (Bld)0.4 %[facility] Comment on above:Performed By: #### THIAGO, CBCA, 09788-2, PINR #### [facility] ([id number]) [address] [place] [address] 43235Zoaitxfwrpa distribution width (RBC) [Ratio]15.7 %High11.5-15.0 [facility], IncComment on above:Performed By: #### THIAGO, CBCA, 44493- 9, PINR #### [facility] ([id number]) [address] [place] [address] 80740Jeltncttze (Bld) [Volume fraction]39.9 %Hsrnvk16-80TlbDyniisValley Regional Medical CenterComment on above:Performed By: #### THIAGO, CBCA, 72600-5, PINR #### [facility] ([id number]) [address] [place] [address] 50363Rnyelaterl (Bld) [Mass/Vol]13.1 g/tRUwfaii33.0-17.0[facility], IncComment on above:Performed By: #### THIAGO, CBCA, 77539-7, PINR #### [facility] ([id number]) [address] [place] [address] 62116Nsxmeczhspq (Bld) [#/Vol]1.1 10*3/uLNormal1.0-3.5PMarietta Osteopathic ClinicComment on above:Performed By: #### THIAGO, CBCA, 07778-7, PINR #### [facility] ([id number]) [address] [place] [address] 81403Zmmfedrrbvs/100 WBC (Bld)18.2 %NormalSelect Medical Specialty Hospital - [facility], Inc Comment on above:Performed By: #### THIAGO, CBCA, 20704-5, PINR #### [facility] ([id number]) [address] [place] [address] 71985UYG (RBC) [Entitic mass]30.6 uiUevhrd31-84LsoXipdpvValley Regional Medical CenterComment on above:Performed By: #### THIAGO, CBCA, 11484-3, PINR #### [facility] ([id number]) [address] [place] [address] 58312TPKP (RBC) [Mass/Vol]32.8 g/oFBbohnm44-41TenYzofwkValley Regional Medical CenterComment on above:Performed By: #### BMP, CBCA, 91951-8, PINR #### [facility] ([id number]) [address] [place] [address] 47809FDQ (RBC) [Entitic vol]93 mEOoqpwg46-026RmsEgtdts [facility]rem[facility] HospitalComment on above:Performed By: #### THIAGO, CBCA, 90917-7, PINR #### [facility] ([id number]) [address] [place] [address] 66791Tejnzmlvz (Bld) [#/Vol]0.8 10*3/uLNormal0-0.9[facility], IncComment on above:Performed By: #### THIAGO, CBCA, 48723-7, PINR #### [facility] ([id number]) [address] [place] [address] 67763Bmufohcox/100 WBC (Bld)13.5 %NormalSelect Medical Specialty Hospital - [facility], Inc Comment on above:Performed By: #### THIAGO, CBCA, 32444-1, PINR #### [facility] ([id number]) [address] [place] [address] 65663Kjgukzplvtf/100 WBC (Bld)67.4 %NormalSelect Medical Specialty Hospital - [facility], Inc Comment on above:Performed By: #### THIAGO, CBCA, 97553-4, PINR #### [facility] ([id number]) [address] [place] [address] 24609Binwbron mean volume (Bld) [Entitic vol]7.4 fLNormal7-12 [facility], IncComment on above:Performed By: #### THIAGO, CBCA, 73904- 9, PINR #### [facility] ([id number]) [address] [place] [address] 37514Qxpbxebxz (Bld) [#/Vol]284 10*3/aUOqdhky955-205XvuJtwufg [facility] HospitalComment on above:Performed By: #### THIAGO, CBCA, 96228-6, PINR #### [facility] ([id number]) [address] [place] [address] 13306KLU COUNT4.27 X10E12/LNormal4.10-5.70[facility] Comment on above:Performed By: #### THIAGO GRETCHENA, 47756-8, PINR #### [facility] ([id number]) [address] [place], [place] [address]GAO (Bld) [#/Vol]5.9 10*3/uLNormal4.0-11.0[facility], IncComment on above:Performed By: #### THIAGO, CBCA, 72031-6, PINR #### [facility] ([id number]) [address] [place], [place] [address]BM BRAIN WO CONTon 74-53-9658KP BRAIN WO CONTCT BRAIN WO CONT CT [...] as low as reasonably achievable. Finalized by Gyaatri Avila DO on 04/16/2024 2:16 PMNormalProValley Regional Medical CenterCT CERVICAL SPINE WO CONTon 91-29-5749UL CERVICAL SPINE WO CONTCT CERVICAL SPINE WO [...] by Gayatri Avila DO on 04/16/2024 2:24 PMNProvidence Holy Cross Medical Center HospitalCT FACIAL BONES WO CONTon 39-20-7502LY FACIAL BONES WO CONTCT FACIAL BONES WO [...] Finalized by Morris Lau on 04/16/2024 2:30 PMNThe [facility] PROTIME AND INRon 22-32-0383CGO Coag (PPP) [Relative time]2.1 {INR}High0.8-1.1 ProMedicSt. Mary Medical CenterComment on above:Performed By: #### MARTHA DAS, 36686- 9, PINR #### [facility] ([id number]) [address] [place] [address] 60175XY Coag (PPP) [Time]23.7 sHigh9.8-13.2ProMedica Kaiser Foundation HospitalComment on above:Result Comment: NEW REFERENCE RANGEPerformed By: #### GRETCHEN DASA, 37635-9, PINR #### [facility] ([id number]) [address] [place] [address] 82599mLYU Coag (PPP) [Time]on 51-62-5433yWMS Coag (Bld) [Time]48 s Xbva41-11IznHifykr Kaiser Foundation HospitalComment on above:Result Comment: NEW REFERENCE RANGEPerformed By: #### BMP, CBCA, 45460-0, PINR #### [facility] ([id number]) [address] [place] [address], FIRST FLOOR [place], [place] [address]LE LUMBAR SPINE WO CONTon 82-52-0057DF LUMBAR SPINE WO CONTMR LUMBAR SPINE WO [...] 04/01/2024 10:47 [facility] Vital Signs Date TimeVital SignValuePerforming QpqbjhvehUmtacrid71-03-2341 13:54-0500Body .3 cmSteven Rusher DPM Work Phone: [phone] [place], [place] 6755311-03-2025 13:54-0500Body mass index (BMI) [Ratio]26.58 kg/a4Rnnfzy Rusher DPM Work Phone: [phone] [place], [place] 6755311-03-2025 13:54-0500Body jwopey42.65 kgSteven Rusher DPM Work Phone: [phone] [place], [place] [address]Ogdiqgitlw17-94-8779 15:38-0400Body rdalea221.3 cmSteven Rusher DPM Work Phone: [phone])[facility] [place], [place] [address]Fgsdwyhiyn34-87-8542 15:38-0400Body mass index (BMI) [Ratio]26.58 kg/v8Lesmfb Rusher DPM Work Phone: [phone] [place], [place] [address]Euqrldtqyf84-54-9581 15:38-0400Body icoizf36.65 kgSteven Rusher DPM Work Phone: [phone] [place], [place] 6755307-10-2025 13:25-0400Body vkaqpa402.3 cmSteven Rusher DPM Work Phone: [phone] [place], [place] 6755307-10-2025 13:25-0400Body mass index (BMI) [Ratio]26.58 kg/d6Edatnh Rusher DPM Work Phone: [phone] [place], [place] [address]Vdceiecjhe97-77-2358 13:25-0400Body mioojg54.65 kgSteven Rusher DPM Work Phone: [phone] [place], [place] [address]Ymqirkspyp18-71-5439 10:53-0400Body .3 cmGretta Whitlock MD Work Phone: [phone])[facility]04-10-2025 10:53-0400Body mass index (BMI) [Ratio]26.58 kg/g4TfnxakyGretta Whitlock MD Work Phone: [phone])[facility]04-10-2025 10:53-0400Body nyxidz59.65 kgGretta Whitlock MD Work Phone: [phone])[facility]04-10-2025 10:53-0400Diastolic blood sgqfuwpe52 mm[Hg]Gretta Whitlock MD Work Phone: [phone]04-10-2025 10:53-0400Heart rate 59 /minGretta Whitlock MD Work Phone: 1(007)[facility]04-10-2025 10:53-6731HbT0% (BldA) [Mass fraction]99 %Gretta Whitlock MD Work Phone: [phone])[facility]04-10-2025 10:53-0400Systolic blood rswywqut311 mm[Hg]Gretta Whitlock MD Work Phone: [phone])[facility]04-04-2025 11:29-0400Body smnijy197.3 cmSteven Rusher DPM Work Phone: [phone] [place], [place] [address]Gcxogahszq81-91-0014 11:29-0400Body mass index (BMI) [Ratio]26.58 kg/g6Osmbub Rusher DPM Work Phone: [phone] [place], [place] [address]Xvxpfhmmvj76-40-4227 11:29-0400Body temperature 97.7 [degF]Edilson Rusher DPM Work Phone: [phone] [place], [place] [address]Zcxanhbevu21-41-8478 11:29-0400Body ntmupo70.65 kgSteven Rusher DPM Work Phone: [facility]Xyhucnxzck30-13-2527 13:11-0400Body ebnhuw836.3 cmMamatilda Beard PA Work Phone: NO[facility] CenterVcfjzmnste29-96-1967 13:11-0400Body mass index (BMI) [Ratio]26.58 kg/s2Unntuhj Meyer PA Work Phone: noAud[facility] CenterBbpalvvqsp60-39-7920 13:11-0400Body ehmdlo81.65 kgMattcharanjit Beard PA Work Phone: [facility] HospitalHnglzlfumt11-79-6528 09:37-0400Body makefj292.3 cmGretta Whitlock MD Work Phone: [phone]03-27-2025 09:37-0400Body mass index (BMI) [Ratio]26.58 kg/t8OrffqrgGretta Whitlock MD Work Phone: [phone])[facility]03-27-2025 09:37-0400Body nuhvuahoqnx90.7 [degF]Gretta Whitlock MD Work Phone: 1(666)[facility]03-27-2025 09:37-0400Body cqzigo90.65 kgGretta Whitlock MD Work Phone: 1(150)[facility]03-27-2025 09:37-0400Diastolic blood sjlublvh89 mm[Hg]Gretta Whitlock MD Work Phone: 1(254)[facility]03-27-2025 09:37-0400Heart rate 60 /minMoagustin Whitlock MD Work Phone: 1(799)[facility]03-27-2025 09:37-0274RqN2% (BldA) [Mass fraction]98 %Gretta Whitlock MD Work Phone: [phone])[facility]03-27-2025 09:37-0400Systolic blood mm[Hg]Gretta Whitlock MD Work Phone: [phone]03-05-2025 12:58-0500Body belfaa505.3 Dov GILLESPIE Work Phone: [facility] Hdfwkc43-33-1037 12:58-0500Body mass index (BMI) [Ratio]27.02 kg/v6JyckmrVandana Brar HOME ECONOMIST-ASSISTANT KITCHEN MANAGER Work Phone: [facility] [employer] Pyuapx31-39-2552 12:58-0500Body .01 kgVandana Brar HOME ECONOMIST-ASSISTANT KITCHEN MANAGER Work Phone: [facility] [employer] Iqjwas96-19-7407 12:58-0500Diastolic blood npszxqyu87 mm[Hg]Vandana Brar HOME ECONOMIST-ASSISTANT KITCHEN MANAGER Work Phone: [facility] Lqinbv41-42-0987 12:58-0500Heart rate 54 /minVandana Brar HOME ECONOMIST-ASSISTANT KITCHEN MANAGER Work Phone: [facility]03-05-2025 12:58-9453UdA2% (BldA) [Mass fraction]97 %Vandana Brar HOME ECONOMIST-ASSISTANT KITCHEN MANAGER Work Phone: [facility] [employer] Otbzuc32-00-5490 12:58-0500Systolic blood mm[Hg]Vandana Brar HOME ECONOMIST-ASSISTANT KITCHEN MANAGER Work Phone: [facility]11-21-2024 11:55-0500Diastolic blood arykefxx78 mm[Hg]Bebeto LEON Work Phone: [facility]11-21-2024 11:55-0500Heart rate 71 /minMatthew Juan Antonio PA Work Phone: [facility]11-21-2024 11:55-0500 Respiratory rate20 /minMatthew Nienberg PA Work Phone: [facility] [employer] Qxvlri96-71-9170 11:55-5439KyX1% (BldA) [Mass fraction]100 %Bebeto Romano PA Work Phone: [facility]11-21-2024 11:55-0500Systolic blood qrasphzc530 mm[Hg]Bebeto LEON Work Phone: [facility] Anqsap70-09-5879 10:120400Body xxtkny977.3 cmMatthew Nienberg PA Work Phone: [facility] [employer] [facility] MichiganComment on above:stated 04-09-2024 10:12-0400Body mass index (BMI) [Ratio]27.62 kg/g7Ckrpodm Nienberg PA Work Phone: [facility] Vztcji12-16-3372 10:120400Body wiwpjj58.82 kgMatthew Nienberg PA Work Phone: [facility] Fmzmlw13-06-7260 10:12-0400Diastolic blood scjndtao42 mm[Hg]Bebeto Nienberg PA Work Phone: [facility] Rdhjnn02-41-8391 10:120400Heart rate 63 /minMatthew Nienberg PA Work Phone: [facility] Nwgqkd41-81-6888 10:120400 Respiratory rate16 /minMatthew Nienberg PA Work Phone: [facility] Pqiqnf29-68-9895 10:120875EgQ0% (BldA) [Mass fraction]100 %Bebeto Nienberg PA Work Phone: [facility] Frbhpw77-96-4090 10:12040Systolic blood gashnbxa891 mm[Hg]Bebeto Nienberg PA Work Phone: [facility] Zgzzmc96-30-5647 13:29-0400Body uklgpo800.3 cmMatthew Nienberg PA Work Phone: [facility] Cvumxo94-33-3456 13:29-0400Body mass index (BMI) [Ratio]26.73 kg/v7Uhrqhpo Nienberg PA Work Phone: [facility] Gsgmtu70-04-1505 13:29-0400Body .1 kgMatthew Nienberg PA Work Phone: [facility] Pakrvm68-47-4059 13:29-0400Diastolic blood rylkcohl08 mm[Hg]Bebeto Nienberg PA Work Phone: [facility] [employer] Njmrbh47-57-5497 13:29-0400Heart rate 65 /minMatthew Nienberg PA Work Phone: [facility]08-22-2024 13:29-1007WoH6% (BldA) [Mass fraction]99 %Bebeto Nienberg PA Work Phone: [facility]08-22-2024 13:29-0400Systolic blood mm[Hg]Bebeto Nienberg PA Work Phone: [facility]07-09-2024 12:23-0400Body ijdacu379.3 cmMatthew Nienberg PA Work Phone: [facility]07-09-2024 12:23-0400Body mass index (BMI) [Ratio]27.02 kg/h8Ridmpzf Nienberg PA Work Phone: [facility]07-09-2024 12:23-0400Body ugoilw55.01 kgMatthew Nienberg PA Work Phone: [facility]07-09-2024 12:23-0400Diastolic blood gsgsgepj09 mm[Hg]Bebeto Nienberg PA Work Phone: [facility]07-09-2024 12:23-0400Heart rate 65 /minMatthew Nienberg PA Work Phone: [facility]07-09-2024 12:23-0400 Respiratory rate16 /minMatthew Nienberg PA Work Phone: [facility]07-09-2024 12:23-3665IoU8% (BldA) [Mass fraction]98 %Bebeto Nienberg PA Work Phone: [facility]07-09-2024 12:23-0400Systolic blood rekdyroo534 mm[Hg]Bebeto Nienberg PA Work Phone: [facility] Encounters Encounter DateEncounter TypeCare ProviderFacilityStart: 05-14-2025 End: 61-50-2903Upsnhj flowsheetSteven A Rusher DPM Work Phone: [facility] PodiatryStart: 05-14-2025 End: 19-01-2419Xkdqjs flowsheetSteven A Rusher DPM Work Phone: [facility] PodiatryStart: 05-14-2025 End: 84-26-7544mjumndwikiILTHBV A RUSHERNot AvailableStart: 05-05-2025 End: 16-30-3542Vyldyzd encounter procedureSteven A Rusher DPM Work Phone: [facility] PodiatryComment on above:Dermatophytosis of nail (Primary Dx); Dystrophic nail; Status post partial amputation of left foot (HCC); Angiopathy, diabetic (HCC); Diabetic polyneuropathy associated with type 2 diabetes mellitus (HCC)Start: 05-05-2025 End: 61-91-3701Dqxtsm flowsheetSteven A Rusher DPM Work Phone: [facility] PodiatryStart: 05-05-2025 End: 23-29-0948Uffjmx flowsheetSteven A Rusher DPM Work Phone: [facility] PodiatryStart: 05-05-2025 End: 85-51-6997bxzqjdklwrYSEWXR A RUSHERNot AvailableStart: 04-16-2025 End: 46-76-5983Fhwxez follow up visit related to original pxSteven A Rusher DPM Work Phone: [facility] PodiatryComment on above: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); Angiopathy, diabetic (HCC); Diabetic polyneuropathy associated with type 2 diabetes mellitus (HCC); 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)Start: 04-16-2025 End: 58-26-7265aghufugcywXMHLAC A RUSHERNot AvailableStart: 04-16-2025 End: 36-80-8652Ityjzu flowsheetSteven A Rusher DPM Work Phone: [facility] PodiatryStart: 04-16-2025 End: 98-86-1787Nldjgf flowsheetSteven A Rusher DPM Work Phone: [facility] PodiatryStart: 03-11-2025 End: 22-72-3597Fgzskr outpatient visit 15 minutesSteven A Rusher DPM Work Phone: [facility] PodiatryComment on above:Diabetic ulcer of toe associated with type 2 diabetes mellitus, with fat layer exposed, unspecifiedlaterality (HCC) (Primary Dx); Status post partial amputation of left foot (HCC); Angiopathy, diabetic (HCC); Diabetic polyneuropathy associated with type 2 diabetes mellitus (HCC)Start: 03-11-2025 End: 55-37-0268Mqnoxh flowsheetSteven A Rusher DPM Work Phone: [facility] PodiatryStart: 03-11-2025 End: 91-32-0907Tqcmcf flowsheetSteven A Rusher DPM Work Phone: [facility] PodiatryStart: 03-11-2025 End: 06-16-7945evhxbnpqrrTDJWOF A RUSHERNot AvailableStart: 71-88-6349vzrczfqkfd [facility] Monicatart: 01-09-2025 End: 33-55-2702Sjnxvi flowsheetSteven A Rusher DPM Work Phone: [facility]ODIATRYStart: 01-09-2025 End: 15-50-0911Vgtnwl flowsheetSteven A Rusher DPM Work Phone: [facility]ODIATRYStart: 01-09-2025 End: 30-57-4479Jzyyahv encounter procedureSteven A Rusher DPM Work Phone: [facility] PODIATRYComment on above:Dermatophytosis of nail (Primary Dx); Dystrophic nail; Status post partial amputation of left foot (HCC); Angiopathy, diabetic (HCC); Diabetic polyneuropathy associated with type 2 diabetes mellitus (HCC)Start: 01-09-2025 End: 63-18-8516lcytoovrnsUXBDBW A RUSHERNot AvailableStart: 01-01-2025 End: 30-94-9765cewtmpldizTTFV O [facility] MEDICAL CENTERLIZANDROCleveland Clinic Luther[facility] Hospital HospitalStart: 12-19-2024 End: 68-26-5697LrzlfmFmdmoinAlen GILLESPIE Work Phone: [facility] CardiologyComment on above:Med RefillStart: 11-14-2024 End: 64-84-5583Stuurbjwy department patient visitCOMMUNITY HEALTH SERVICES ProMElyria Memorial Hospital HospitalStart: 11-12-2024 End: 29-65-4254rwdbcfvvvqVltyvUC Health Ctr Work Phone: Start: 11-12-2024 End: 76-60-5805Gcuxjylv ReferredLehigh Valley Hospital - Pocono Work Phone: [facility]-LAB Path Spec Christy HospStart: 11-04-2024 End: 87-65-8521cvqvtuzdvpNPWQKQ N [facility] HospitalStart: 11-04-2024 End: 47-79-9949mlgwmouzrdITTSCG N [facility] HospitalStart: 52-10-1197Adpwkykrz for other preprocedural examinationVANDANA Awad [facility] Hospitaltart: 10-15-2024 End: 55-93-4380Dmaxtrmiv encounterMelandre Torres LPNProMedrigoberto Physicians CardiologyComment on above:Surgical Or Dental ClearanceStart: 10-10-2024 End: 51-53-7683Vinduy outpatient visit 15 minutesMoagustin Whitlock MD Work Phone: [facility] Jobst Vascular SurgeryComment on above:Critical limb ischemia of left lower extremity with gangrene (CMS-HCC) (Primary Dx)Start: 10-10-2024 End: 57-91-2292cijlwmfljzHUKCKFV F OSMANRiverview Health Institute Ambulatory PPGStart: 10-04-2024 End: 93-41-7123Tphxmy flowsheetSteven A Rusher DPM Work Phone: noms PODIATRYStart: 10-04-2024 End: 80-82-7085Ffuydf flowsheetSteven A Rusher DPM Work Phone: [facility] PODIATRYStart: 10-04-2024 End: 63-05-2369Docikg outpatient new 45 minutesSteven A Rusher DPM Work Phone: noms PODIATRYComment on above:Paronychia of great toe of right foot (Primary Dx); Angiopathy, diabetic (CMS/HCC); Diabetic polyneuropathy associated with type 2 diabetes mellitus (CMS/HCC); Status post partial amputation of left foot (CMS/HCC)Start: 10-04-2024 End: 39-36-8625fwbqfhhszaWUOXOM A RUSHERNot AvailableStart: 10-02-2024 End: 92-83-5627Ztplyi Priti LEON Work Phone: [facility] FB ORTHOPAEDICSStart: 10-02-2024 End: 10-87-1681Twhugbwayne LEON Work Phone: [facility] FB ORTHOPAEDICSStart: 10-02-2024 End: 56-27-2699jjocjsmccqQUVVBLU J MEYERNot AvailableStart: 10-02-2024 End: 47-25-7168Wujviv outpatient new 45 minutesBebeto LEON Work Phone: noms FB ORTHOPAEDICSComment on above:Acute pain of right knee (Primary Dx); Arthritis of right knee; Effusion of right kneeStart: 09-27-2024 End: 03-13-8166ohlneczmhtRXPSULQ F OSMANShelby [facility] Hospital HospitalStart: 09-26-2024 End: 78-71-9728Alqjgj outpatient new 45 minutesMohamed Remigio Whitlock MD Work Phone: [facility] Vascular SurgeryComment on above:Critical limb ischemia of left lower extremity with gangrene ([facility]) (Primary Dx); PVD (peripheral vascular disease) ([facility])Start: 09-26-2024 End: 55-07-8269vtznxoitisMEXCQRE F [facility] Ambulatory PPGStart: 09-23-2024 End: 78-50-8370qtfkjinbgzHZKQYI N MOSLEYCleveland Clinic Luther[facility] Hospital HospitalStart: 09-13-2024 End: 25-05-6767Wnqvlpzxs department patient visitCOMFORMERLY [facility] HospitalStart: 09-04-2024 End: 65-69-6117Morhce outpatient visit 15 minutesVandana Brar HOME ECONOMIST-ASSISTANT KITCHEN MANAGER Work Phone: [facility] Physicians CardiologyComment on above: Ventricular tachycardia ([facility]-HCC) (Primary Dx); AICD present, double chamber; Encounter for monitoring amiodarone therapy; Paroxysmal atrial fibrillation ([facility]); Typical atrial flutter ([facility]); V-tach ([facility]); Essential hypertensionStart: 09-04-2024 End: 68-49-5767Okacropp SupportValley Forge Medical Center & Hospital PacerProMedica Physicians Cardiology Comment on above:AICD present, double chamber- [employer] (Primary Dx)Start: 09-03-2024 End: 27-74-7921Zfejzveev encounterMarisela Mcguire CMAProMedica Physicians CardiologyStart: 07-22-2024 End: 65-88-1449omnmbephhsXAJKD D [facility] HospitalStart: 07-12-2024 End: 24-91-6827ImyznvZcwsAugustus Rivera APRN-ASSISTANT KITCHEN MANAGER Work Phone: [facility] Physicians CardiologyComment on above:Med Change RequestStart: 05-23-2024 End: 90-52-6070AxbogrJdoxktnMichelet Espino APRN-ASSISTANT KITCHEN MANAGER Work Phone: [facility] Physicians CardiologyComment on above:Med RefillStart: 05-23-2024 End: 63-65-6642Vcngxd outpatient visit 15 minutesBebeto LEON Work Phone: [facility] ClinicComment on above:Lumbosacral spondylosis without myelopathy (Primary Dx) Start: 05-23-2024 End: 99-89-6005jjpedmfdfcVXCSHDU S KHADARCHAUNCEYCleveland Clinic Lutheran Hospital HospitalStart: 05-09-2024 End: 33-14-1387ypckvshfvpVXPYU A ANGLIMCleveland Clinic Lutheran Hospital HospitalStart: 05-03-2024 End: 68-33-9151ehkwdxkkwqDKEOQIQ E HOGANProParkview Health HospitalStart: 04-16-2024 End: 10-89-7686Sffstnhix department patient visitCOMMUNADENA REGIONAL [facility] HEALTH SERVICES ProMBarstow Community Hospitaltart: 04-09-2024 End: 16-01-5758Lshtwj outpatient visit 25 Anayeli LEON Work Phone: [facility] Pain Management ClinicComment on above:Lumbosacral spondylosis without myelopathy (Primary Dx) Start: 04-09-2024 End: 23-49-9304zxyevjiwveJADQTRC S JUAN ANTONIOCleveland Clinic Lutheran Hospital HospitalStart: 04-01-2024 End: 08-91-2906gnsrxhzfhjFSJESFN S KHADARCHAUNCEYCleveland Clinic Lutheran Hospital HospitalStart: 02-22-2024 End: 17-77-5487Zleqxl outpatient visit 25 Anayeli LEON Work Phone: [facility] Pain Management ClinicComment on above:Lumbosacral spondylosis without myelopathy (Primary Dx); Disc displacement, lumbar; Lumbar radiculopathy, chronicStart: 02-22-2024 End: 40-01-1992jiiqvwutmyQOMXFDU S JUAN ANTONIOCleveland Clinic Lutheran Hospital HospitalStart: 02-21-2024 End: 67-03-3278AxxigkRosdkcfjEmely GILLESPIE Work Phone: [facility] CardiologyComment on above:Med RefillStart: 01-17-2024 End: 38-42-4682Hsiwhhkxi Anneliese MATHISMercy Hospital - Pain Management ClinicStart: 01-11-2024 End: 85-97-6527Vfcbjltzi encounterSDunlap Memorial Hospital - Pain Management ClinicStart: 01-09-2024 End: 38-13-5315Tzpbpp outpatient new 30 minutesMattcharanjit LEON Work Phone: [facility] ClinicComment on above:Lumbar spondylolysis (Primary Dx)Start: 11-14-2022 End: 54-13-1975ksddngbcfaNCIII D HIGHLANDERFacility:E3Svvdj: 10-24-2022 End: 60-84-4411cyecydwsowWHUKK D HIGHLANDERFacility:Y2Ecrde: 10-03-2022 End: 44-65-0670bgececqutrGHAPB D HIGHLANDERFacility:X3Khyui: 09-12-2022 End: 65-32-9497nqsxyklfqpOJXJKGYG CULLENFacility:K6Tzbcj: 08-23-2022 End: 99-87-2566prghyedikvYCIWB D HIGHLANDERFacility:A1Muymo: 08-16-2022 End: 02-28-8455mygawszouhCWWDU D HIGHLANDERFacility:F5Lfmnw: 08-09-2022 End: 75-52-3602mgyqcofkqtSAZNC D HIGHLANDERFacility:H1 Procedures DateProcedureProcedure DetailPerforming ClinicianStart: 90-04-0679Kxumamlwemdvcy aspir&/inj major jt/bursa w/o usMamatilda LEON Work Phone: Start: 44-19-6088Akf routine ecg w/least 12 lds w/i&r Vandana Brar HOME ECONOMIST-ASSISTANT KITCHEN MANAGER Work Phone: Start: 70-77-0236Syavth-up visitFollow-upAMANJU BRARStart: 78-33-1448Bgvzrnculsnk [Mass/volume] in Urine by Test stripBebeot LEON Work Phone: Plan of Treatment DateCare ActivityDetailAuthorStart: 56-98-4405Wfwceqv ScreeningTobacco Screening [facility] SystemStart: 37-95-1141Eaqoi BMI ScreeningAdult BMI Screening [facility]aretart: 10-73-7478Bimna BMI ScreeningAdult BMI Screening [facility]: 66-93-3342Ccguxkg ScreeningTobacco Screening [facility]: 98-76-6814Mmkwd BMI ScreeningAdult BMI Screening [facility]: 25-91-9750Shsuvgw ScreeningTobacco Screening [facility] SystemStart: 84-92-7834Hchgn BMI ScreeningAdult BMI Screening [facility]: 76-96-5403Hivjtkk ScreeningTobacco Screening [facility]: 36-49-4248Gosxk BMI ScreeningAdult BMI Screening [facility]: 35-54-2631Ofvrmti ScreeningTobacco Screening [facility]: 06-03-2025 End: 69-50-8339Jsvomtf encounter ignkaeloh63/02/2025 3:15 PM EST Office Visit [facility] [address] [place] [id number] Edilson Guzman DPM [address] [place] [address] [facility] PodiatryStart: 34-56-9913Siobfhj ScreeningTobacco Screening [facility]art: 05-14-2025 End: 30-45-2713Olcboib encounter mrxqluzrb74/12/2025 11:15 AM EST Office Visit [facility] [address] [place] [address] Edilson Guzman DPM [address] [place] [address] ArrivedNOMS [place] PodiatryComment on above:ArrivedStart: 05-05-2025 End: 17-98-1289Ycmzjhr encounter procedureNOMS [place]ope PodiatryComment on above: ArrivedStart: 04-16-2025 End: 89-89-4473Bbrqziu encounter imrfymcdn11/15/2025 3:30 PM EDT Office Visit [facility] [address] [place] [address] Edilson Guzman DPM [address] [place] [address] ArrivedNOSaunders County Community Hospital PodiatryComment on above:ArrivedStart: 04-16-2025 Adult BMI ScreeningAdult BMI ScreeningProMemorial Hospitalca [facility] SystemStart: 04-14-2025 End: 56-73-4457Ybohzme encounter procedureNOMS PODIATRYStart: 96-20-2589Ryvqv BMI ScreeningAdult BMI ScreeningProMemorial Hospitalca [facility] SystemStart: 76-05-4033Ndelcbm ScreeningTobacco ScreeningProOhiohealth [facility] SystemStart: 03-11-2025 End: 39-93-6816Mdokjhs encounter lfcvbnyki40/09/2025 2:15 PM EDT Office Visit [facility] [address] [place] [address] Edilson Guzman DPM [address] [place] [address] ArrivedNOSaunders County Community Hospital PodiatryComment on above:ArrivedStart: 03-03-2025 COVID-19 Vaccine ( season)COVID-19 Vaccine ( season)[facility] HealthcareStart: 56-40-9035Yxvieoikt vaccinationNOMS HealthcareStart: 02-21-2025 Adult BMI ScreeningAdult BMI ScreeningProMemorial Hospitalca Health SystemStart: 02-21-2025 Tobacco ScreeningTobacco ScreeningProMemorial Hospitalca [facility] SystemStart: 01-09-2025 End: 66-56-6031Yqbjdrh encounter procedureNOMS PODIATRYComment on above: ArrivedStart: 17-44-4771Brrxh BMI ScreeningAdult BMI ScreeningProMemorial Hospitalca [facility] SystemStart: 43-93-7301Qxrepwg ScreeningTobacco ScreeningProMedica Health System Start: 11-04-2024 End: 89-53-5758Jilowsz encounter procedureProMemorial Hospitalca [facility] - Stress ImagingStart: 10-04-2024 End: 25-91-8177Euuqosm encounter procedureNOMS FH PODIATRYComment on above: ArrivedStart: 09-26-2024 End: 35-61-1592Euujkjx encounter gltkvheeh39/27/2025 9:40 AM EDT Office Visit Carledicanastasiya Santos [facility] [address] [place] [address] Gretta Whitlock MD [address], [address] [place] [address] Alex Santos [facility] Er Vascular SurgeryStart: 09-16-2024 End: 18-38-5398Guzyzfh encounter hlnlevtwm80/17/2025 11:00 AM EDT Appointment [facility] [address] [place] [address] Vandana Brar, HOME ECONOMIST-ASSISTANT KITCHEN MANAGER [address] [place] [address] [facility] Pulmonary FunctionStart: 09-04-2024 End: 45-65-3472Ojcrzxq encounter upbsfkibm68/05/2025 2:30 PM EST [facility] [address] [place] [address] Vandana Brar, HOME ECONOMIST-ASSISTANT KITCHEN MANAGER [address] [place] [address] [facility] CardiologyStart: 09-04-2024 End: 32-54-9572Mkrypmtp Cixagxw4609/04/2024 1:15 PM EST Clinical Support [facility] [address] [place] [address] [facility] CardiologyStart: 07-24-2024 End: 49-60-7536Eaagksne SupportProMedica Physicians CardiologyStart: 07-04-2024 End: 34-82-0249Giwwvob encounter rpqndtdge10/02/2025 10:00 AM EST Office Visit [facility] [address] [place] [address] Bebeto Romano, PA [address] [place] [address] [facility] ClinicStart: 05-23-2024 End: 65-26-0939Jnmwjju encounter lkhkbuxax38/21/2024 12:45 PM EST Office Visit [facility] [address] [place] [address] Bebeto Romano, PA [address] [place] [address] [facility] ClinicStart: 05-03-2024 End: 95-96-4919Vlkmbmewt to same day surgery ynjfzo1305/03/2024 8:58 AM EDT - 05/03/2024 9:06 AM EDT Surgery [facility] P rocedures [address] [place] [address] Alber Hyde MD [address] [place] [address] INJECTION BLOCK NERVE MEDIAL BRANCH: bilat L45 51 [64835 (CPT )][facility] - Pain ProceduresComment on above:INJECTION BLOCK NERVE MEDIAL BRANCH: bilat L45 51 [66504 (CPT )]Start: 05-03-2024 End: 93-40-4464Ure dx/ther agt pvrt facet jt lmbr/sac 1 levelINJECTION BLOCK NERVE MEDIAL BRANCH Lumbosacral spondylosis without myelopathy 05/03/2024 8:58 AM EDTFREMONT PAINStart: 48-95-8674Qjlfnwxkwi hospital visit by physician 05/03/2024 8:58 AM EDT Hospital Encounter [facility] Procedures [address] [place] [address] Alber Hyde MD [address] [place] [address] [facility] - Pain ProceduresStart: 20-74-1802Fucvs screening for proteinUrine MicroalbuminFairfield Medical Center SystemStart: 04-04-2024 End: 41-96-3509Udibubv encounter loyyijlia58/03/2024 1:15 PM EDT Appointment [facility] Imaging [address] [facility] [place] [address] Bebeto Romano, PA [address] [place], [place] [address] [facility] MRI ImagingStart: 48-45-6941GOWBK-19 Vaccine ( season)COVID-19 Vaccine ( season)[facility] SystemStart: 68-95-6966KBZQV-19 Vaccine ( season)COVID-19 Vaccine ( season)[facility] SystemStart: 35-98-6938Ntqvuiqjt vaccinationInfluenza VaccineProOhiohealth Riverside Methodist Hospital SystemStart: 02-22-2024 End: 49-77-8657Zfricsv encounter /22/2024 2:45 PM EDT Office Visit [facility] [address] [place] [address] Bebeto Romano PA [address] [place] [address] [facility] ClinicStart: 90-89-1405Whvixhlsegjc Vaccine: 65+ Years (2 of 2 - PCV)Pneumococcal Vaccine: 65+ Years (2 of 2 - PCV)[facility] HealthcareStart: 51-59-3653DNMWB-19 Vaccine ( season)COVID-19 Vaccine ( season)[facility] [employer] [facility] Systemtart: 93-23-7834Cafpuczfn aortic aneurysm screeningAbdominal Aortic Aneurysm (AAA) ScreenProCommunity Memorial Hospital Start: 00-21-1630Vgru Risk ScreeningFall Risk ScreeningOhioHealth Berger Hospital Start: 22-58-5407Kocdradepoedof of varicella zoster vaccineZoster (Shingles) Vaccine (1 of 2)[facility] [employer] [facility] Systemtart: 60-46-8497YMyW,Tdap and Td Vaccines (1 - Tdap)DTaP,Tdap and Td Vaccines (1 - Tdap)[facility] [employer] [facility] Start: 73-99-6195Kdsms BMI Follow Up PlanAdult BMI Follow Up PlanProMemorial HospitalGenera Energy [facility] Systemtart: 23-19-0257Sfgnqtpo foot examinationDiabetic Foot Exam [facility] HospitalGinitart: 50-60-0374Ovnvlmtqph ScreeningDepression Screening [facility] [employer] [facility] Systemtart: 62-71-8980Cfuozoxp screeningDiabetic Ophthalmology ExamMemorial HospitalCode71tart: 1954Medicare Annual Wellness Visit Medicare Annual Wellness VisitMercy Health Perrysburg Hospital [employer] [facility] Systemtart: 59-86-8709Obfofpyfs for malignant neoplasm of colonST. MARK'S [facility]ITAL Healthcare End: 94-29-3150IP Lumbar spine WO contrastMR lumbar spine without contrast Imaging Routine Lumbar radiculopathy, chronic 1 Occurrences starting 02/22/2024 until 02/21/2025[employer] Work Phone: Comment on above:1 Occurrences starting 02/22/2024 until 02/21/2025 End: 68-26-2656Nprjjwdxt function test Complete PFT w/ BD (Spirometry (Flow Volume Loop) pre/post short acting bronchodilator w/ DLCO (diffusion study) and Lung Volume)Pulmonary function test Complete PFT w/ BD (Spirometry (Flow Volume Loop) pre/post short acting bronchodilator w/ DLCO (diffusion study) and Lung Volume) PFT Routine Encounter for monitoring amiodarone therapy 1 Occurrences starting 09/04/2024 until 09/04/2025[facility] CenterMediprettysecrets Work Phone: Comment on above:1 Occurrences starting 09/04/2024 until 09/04/2025 Immunizations Immunization DateImmunizationNotesCare MurqnqjeYqziavwl94-49-0323khjyniezd virus vaccine, unspecified formulationMattkyew Nienberg PA Work Phone: [facility] HospitalHlppgs20-17-8222thocilkxdzlw polysaccharide vaccine, 23 valentSteven Rusher DPM Work Phone: [phone] HospitalJasqsxbfws02-46-7488nodudmymrp skin test; purified protein derivative solution, intradermalSteven Rusher DPM Work Phone: [phone] HospitalYutvvqswil52-58-4939ieleznhiyx skin test; purified protein derivative solution, intradermalSteven Rusher DPM Work Phone: [facility] HospitalXfnmzbpxxu39-23-9476hjxnsjovl, injectable, quadrivalent, preservative freeMatthew Nienberg PA Work Phone: [facility] HospitalKzgvnt23-52-6752ahbltoiwuh skin test; purified protein derivative solution, intradermalSteven Rusher DPM Work Phone: [phone] HospitalKrjeypfgsg12-54-7695tohtiicjvr skin test; purified protein derivative solution, intradermalSteven Rusher DPM Work Phone: [facility] HospitalPfowijqozy57-12-8301apwensoabu skin test; purified protein derivative solution, intradermalSteven Rusher DPM Work Phone: [phone] HospitalBhssmmbmnl93-10-0952Ryqiyxyff, injectable, Madin Kristina Canine Kidney, preservative free, quadrivalentMatthew Nienberg PA Work Phone: [facility] [employer] Euxpby60-93-8716atgagahds, seasonal, injectable, preservative freeMatthew Nienberg PA Work Phone: [facility] HospitalCteyar65-75-1396hrkyoucac, seasonal, injectable, preservative freeMatthew Nienberg PA Work Phone: [facility] HospitalEqsgrt48-94-6218qzeoyvyeinia arroyo injectableMatthew Nienberg PA Work Phone: [facility] Payers DatePayer CategoryPayerPolicy [id number]-pay2017Medicaid [id number] 1993Medicare [id number] [id number] [id number] [id number] 2.16.840.1.461135.3.57[id number] 2.16.840.1.404653.3.57[id number] 2.16.840.1.846260.3.57[id number] 2.16.840.1.452054.3.579.[id number] 2.16.840.1.666062.3.579.2.10058-15-8455Fmmvbpv5840147 2.16.840.1.668981.3.579.2.64060-85-3316Remgaaa3383048 2.16.840.1.579849.3.579.2.[id number] 2.16.840.1.242680.3.579.2.499545-14-0243Knbqkfj879733695 2.16.840.1.683005.3.579.2.1[id number] 2.16.840.1.507656.3.579.2.1[id number] 2.16.840.1.046958.3.57[id number] 2.16840.1.919457.3.579.[id number] 2.16840.1.230045.3.57[id number] 2.16840.1.851917.3.57[id number] 2.16840.1.547229.3.579.[id number] 2.840.1.472026.3.57[id number] 2.16840.1.916081.3.57[id number] 2.16840.1.674947.3.579.[id number] 2.840.1.880698.3.57[id number] 2.840.1.251648.3.579.2.146655-05-5655Zsjvhhm105786501 2.16840.1.717393.3.57[id number] 2.16840.1.837324.3.579.2.[id number] 2.16840.1.378891.3.57[id number] 2.16.840.1.896423.3.57[id number] 2.16.840.1.952416.3.579.2.174157-82-5802Sezwgyz21032154 2.16.840.1.073299.3.579.2.524825-29-3856Uaepnpv40663845 2.16.840.1.639626.3.57[id number] 2.16.840.1.440549.3.579.2.820209-33-2929Qpiizfc44121224 2.16.840.1.564141.3.579.2.513960-80-8810Qauaiuv91291926 2.16.840.1.640831.3.579.2.5[id number] 2.16.840.1.218079.3.579.2.454835-15-3259Fvyzhnz11141623 2.16.840.1.076061.3.579.2.851659-26-7490Nwfgazh15862717 2.16.840.1.795387.3.579.2.717139-58-7430Ctzzrut14481695 2.840.1.584127.3.579.2.069858-38-3627Hhbtpdw97723337 2.16.840.1.337195.3.579.2.369696-80-3123Srdhebz7385971 2.16840.1.911283.3.579.2.860074-29-0984Ovwjyjb8175338 2.16.840.1.601509.3.579.2.1259MedicareMedicare [id number] 2.16.840.1.586068.3.579.2.531 Social History DateTypeDetailFacilityStart: 01-09-2024 End: 75-38-2607Ikwnatf smoking status NHISEx-smokerOhioHealth Berger Hospital History of tobacco useCurrent smokerOhioHealth Berger HospitalHistory of tobacco useCigarette SmokerFairfield Medical Center SystemStart: 01-09-2024 End: 80-62-8825Zvgfkny use and exposureSmokeless tobacco non-userFairfield Medical Center SystemStart: 05-23-2024 End: 60-84-4734Yzapxswnb beverage intakeCurrent non-drinker of alcohol (finding) [facility] SystemStart: 05-23-2024 End: 97-24-1073Dabrhtz of Social functionFairfield Medical Center SystemStart: 05-23-2024 End: 97-60-3440Ofhtgub use panelFairfield Medical Center SystemStart: 09-14-2022 ChildcareUnknowTrumbull Regional Medical Center SystemStart: 12-26-6660Ulj assigned at birthNot on [facility] SystemStart: 02-05-2015 End: 24-72-8765SjmCgxm (finding)[facility] HospitalTobabailey medical center [facility] [place] smoking status NHISTobacco smoking consumption unknownNOMS HealthcareStart: 10-02-2024 End: 47-90-0818Mufhrcnyt beverage intakeEx-drinker (finding)[facility] Healthcare Start: 02-95-8480Rvy Assigned At BirthChildren's Hospital for Rehabilitation Medical Equipment Procedure CodeEquipment CodeEquipment Original TextEquipment IdentifierDatesLd Pcng 55cm Rv Sq Scr S Df-4 - [id number] - [id number]: 11-20-2018 Lead Capsure Fix Novus 5076-45 - [id number] - [id number]: 22-36-9881Buil Capsure Fix Novus 5076-52 - [id number] - [id number] Start: 36-54-9031Gsgd Crd Ana Alcaraz Xt - [id number] - [id number] Start: 83-34-1965Uvu Crd Gustabo Prater [facility] 145337 - [id number] - [id number]: 35-85-0555Dpyyu: 01-20-2018 Goals DatePatient GoalDesired Activity/StatePersonal health goalComment on above: Evaluation of progress towards goal: discharge home with shinto/friends support. Personal health goalComment on above: Evaluation of progress towards goal: plan home self carePersonal health goal Comment on above: Evaluation of progress towards goal: Patient likely will discharge to a SNF Clinical Notes 08-09-2022 to 05-05-2025 Note Date & ApvxQmyzKphzwpvv09-52-9198 History of Present illness Narrative* Edilson Guzman, NIKKI - 05/05/2025 2:15 PM EST Images from the original note were not included. Subjective Patient ID: Celio Frausto is a 69 y.o. male who presents for Nail care (Celio Frausto is a 69 y.o. malewho presents for DM Foot Care. Patient relates Ulcer right great toe, started about 2 weeks ago, patient is seeing Dr. Gutiérrez for this Ulcer. PCP: Bradley MONTESINOS 12/2024, A1C: n/a, BS: 130. ). HPI Presents today for nail care for [...] a friend. Date of Last Foot Exam: 05/05/2025 Sensory testing performed: sensations diminished Sensory and [...] SCALE: Total with debris multiple digits. INTERDIGITAL MACERATION:clean, dry, non-inflamed. ULCER: Right great toe: Smith stage II neuropathic wound located dorsal-medial area of the IP joint line. The wound bed is fairly dry without drainage or malodor. There are no clinical signs of cellulitis or wound infection. There are no clinical signs of ischemic necrosis. SKIN PATHOLOGY:texture, turgor, hair growth, within normal [...] assessment relative to the high-risk condition. Patient has scheduled follow up with Dr. Gutiérrez within the next 1-2 weeks for evaluation of wound right great toe. Awaiting fitting of therapeutic footwear and custom molded accommodative orthoses. Procedure: Toenail debridement: Right foot: Aseptic technique: [...] understanding. Edilson Guzman DPM documented in this encounterSainte Genevieve County Memorial HospitalPlmzoljgms07-87-5381 History of Present illness Narrative* Edilson Guzman [...] foot obtained in the weight-bearing position, utilizing Blue Photo Storiesnock device. Foam impressions and tracings of the [...] understanding. Edilson Guzman DPM documented in this encounterSainte Genevieve County Memorial HospitalUxicinmpjc76-11-5536 History of Present illness Narrative* Edilson Guzman [...] Patient will continue wound care measures with [facility] wound care services. Follow up: Accordingly [...] understanding. Edilson Guzman DPM documented in this [facility]09-09-2025 Instructions* Patient Instructions* Edilson Guzman DPM - 03/11/2025 2:15 PM EDT As noted documented in this encounterSainte Genevieve County Memorial HospitalYnnzzvggmz23-16-2455 History of Present illness Narrative* Edilson Guzman [...] understanding. Edilson Guzman DPM documented in this [facility]07-10-2025 Instructions* Patient Instructions* Edilson Guzman DPM - 01/09/2025 1:30 PM EDT As noted documented in this [facility]06-19-2025 Miscellaneous Notes* Telephone Encounter - Mariana Interiano RN - 12/19/2024 10:52 AM EDT Images from the original note were not included. Last OV 09/04/2024 CMP and CBC 11/14/2024 documented in this [facility]06-19-2025 Telephone encounter Note* Telephone Encounter - Mariana Interiano RN - 12/19/2024 10:52 AM EDT Images from the original note were not included. Last OV 09/04/2024 CMP and CBC 11/14/2024 [facility]04-15-2025 Miscellaneous Notes* Telephone Encounter - Phylicia Torres LPN - 10/15/2024 11:55 AM EDT Surgeon: Dr Gutiérrez Type of surgery: lt transmetatarsal amputation with delayed primary closure of ulceration Date of surgery: pending Surgery location: [facility] Type of anesthesia: general On a [...] AM EDT Pt scheduled for lexiscan at [facility] 11/04/24 documented in this encounterMemorial HospitalSmart [facility]04-15-2025 Telephone encounter Note* Telephone Encounter - Phylicia Torres LPN - 10/15/2024 11:55 AM EDT Surgeon: Dr Gutiérrez Type of surgery: lt transmetatarsal amputation with delayed primary closure of ulceration Date of surgery: pending Surgery location: [facility] Type of anesthesia: general On a blood thinner?: xarelto Indication? At Fib On an antiplatelet?: asa Stent? no Date of last EK09/04/24 Last office visit date and who they saw: AM 09/04/24 Their preference of how long to hold blood thinners/antiplatelet: per cardiology recommendations History of CVA/TIA, DVT/PE? no [facility] SyrenaicaSktonv15-00-2352 Telephone encounter Note* Telephone Encounter - JOSE [...] once deemed safe by surgeon. Thank you [facility]04-15-2025 Telephone encounter Note* Telephone Encounter - Phylicia Torres LPN - 10/15/2024 11:55 AM EDT Pt scheduled for lexiscan at PM 11/04/24 [facility]04-10-2025 Evaluation + Plan note* Assessment & Plan Note - Gretta Whitlock MD - 10/10/2024 11:08 AM EDTAssociated Problem(s): Critical limb ischemia of left lower extremity with gangrene ([facility]) PVR. Continue best medical therapy with aspirin and statin. [facility]04-10-2025 Miscellaneous Notes* Assessment & Plan Note - Gretta Whitlock MD - 10/10/2024 11:08 AM EDTAssociated Problem(s): Critical limb ischemia of left lower extremity with gangrene ([facility]) PVR. Continue best medical therapy with aspirin and statin. documented in this encounterOhioHealth Berger Hospital04-10-2025 History of Present illness Narrative* Gretta Whitlock MD - 10/10/2024 11:00 AM EDT Images from the original note were not included. To: [facility] HPI: Tomas Frausto is a 69 y.o. [...] pectoris Arrhythmia Atrial fibrillation (CMS-HCC) Atrial flutter (CMS-HCC) Atrial flutter (CMS-HCC) Benign prostatic hyperplasia BPH with urinary obstruction Cancer (CMS-HCC) skin cancer Cataract Constipation Coronary artery disease Dental disease no teeth Diabetes mellitus (CMS-HCC) Diabetes mellitus type 2, controlled [place] Hypercholesterolemia Hypertension Myositis Peripheral neuropathy Rash Scalp wound Urinary incontinence Ventricular tachycardia ([facility]) Visual impairment glasses Past Surgical History: Past Surgical History: Procedure Laterality Date 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; excision and debridement Left 10/29/2021 Performed by Ambrosio Al MD at [facility] AMPUTATION TOE 4TH & 5TH/WIDE INCISIONAL DEBRIDEMENT LEFT DIABETIC FOOT NECROTIZING FASCITIS Left 08/12/2021 Performed by Ambrosio Al MD at [facility] ANGIO LOWER EXT Left 09/27/2024 Performed by Gretta Whitlock MD at [facility] CARDIAC CATH LABS CARDIAC DEFIBRILLATOR PLACEMENT medtronic CATARACT EXTRACTION Coronary angiogram and left ventricular gram/pressure N/A 11/19/2018 Performed by Sage Jay MD at [facility] CARDIAC CATH LABS Coronary fractional flow reserve N/A 11/19/2018 Performed by Sage Jay MD at [facility] CARDIAC CATH LABS CYSTOSCOPY [facility] SOLUTION N/A 10/27/2021 Performed by Frederic Thorne MD at [facility] DC ICD RA lead replace - MDT N/A 07/21/2020 Performed by Yoni Espinoza MD at [facility] (EP) EP - Device DC ICD Left 11/20/2018 Performed by Shayna Betancourt MD at [facility] (EP) EP - Diagnostic-- EP study Right 11/16/2018 Performed by Rafita Garcia MD at [facility] (EP) INJECTION BLOCK NERVE MEDIAL BRANCH: bilat L 4/5, 5/ Bilateral 05/03/2024 Performed by Alber Hyde MD at [facility] Loop recorder implant N/A 11/16/2018 Performed by Rafita Garcia MD at [facility] (EP) Loop recorder removal N/A 07/21/2020 Performed by Yoni Espinoza MD at [facility] (EP) Percutaneous angioplasty tibia/per initial vessel left Left 09/27/2024 Performed by Gretta Whitlock MD at [facility] CARDIAC CATH LABS Percutaneous angioplasty tibia/per initial vessel/EACH ADDITIONAL Right 09/27/2024 Performed by Gretta Whitlock MD at [facility] CARDIAC CATH LABS SKIN CANCER EXCISION Social [...] Interpersonal Safety: Unknown (08/24/2023) Received from [facility] Safety & Environment Fear of Current or [...] ischemia of left lower extremity with gangrene ([facility]) - Primary Current Assessment & Plan PVR. Continue best medical therapy with aspirin and statin. Tomas was seen today for angio 09-27-24. Diagnoses and all orders for this visit: Critical limb ischemia of left lower extremity with gangrene ([facility]) Gretta Whitlock MD, RONNIE, RPVI, FSVS, FACS [...] you for your understanding. documented in this encounterOhioHealth Berger Hospital04-04-2025 History of Present illness Narrative* Edilson Guzman DPM - 10/04/2024 11:30 AM EDT Images from the original note were not included. Subjective Patient ID: Tomas Frausto is a 69 y.o. male who presents for Toe Pain (Tomas Frausto 69yo New Patientlast seen 07/12/2021. Patient is diabetic. Concerns of Right great toenail infection, patient relates drainage, thick and painful. Patient is seeing wound care in [place] for possible partial amputation of left foot, due to non-healing after amputation surgery 3 years ago, in [place]. Currently taking cephalexin for left foot infection. [...] understanding. Edilson Guzman DPM documented in this [facility]04-04-2025 Instructions* Patient Instructions* Edilson Guzman DPM - 10/04/2024 11:30 AM EDT As noted documented in this [facility]04-02-2025 History of Present illness Narrative* EDWARD Hills - 10/02/2024 1:00 PM EDTAssociated Order(s): L Inj/Asp: R knee Post-Procedure Diagnose(s): Arthritis of right knee; Effusion of right knee Images from the original note were not included. NAME: Tomas Frausto : 1955 HISTORY OF PRESENT ILLNESS: NEW PT Tomas Eda Frausto is an 69 y.o. @ male. (NEW PT) [facility] REFERRAL. RT KNEE PAIN 09/11/24 (3 WKS), WENT TO [facility] ER 09/13, HAD XR AND GIVENKNEE IMMOBILIZER. XRAY [facility] 09/13/24 WORE KNEE IMMOBILIZER FOR A COUPLE DAYS. PRESENTS IN WC TODAY. USES WALKER AT HOME. USED WC FOR DISTANCE. PAIN DIFFUSE IN KNEE. DENIES RADIATION. INTERMITTENT PAIN. +TYL. USED ICE ONCE. DENIES N/T. +SWELLING. KNEE POPPED ONCE GOING UP THE STEPS. +GIVING OUT SENSATION. DOES NOT WAKE AT HS. *ON XARELTO PAST MEDICAL HISTORY: Past Medical History: Diagnosis Date Diabetes ([facility]) H/O blood clots PAST SURGICAL [...] and flexion. The x-ray from 09/13/2024 at [facility] shows tricompartmental arthritic changes. Treatment plan: A cortisone injection was discussed and administered today. Clinical decision making: Further treatment will be held until he is released from his left foot surgery. Right knee arthritis. The patient has been complaining of knee aching and pain consistent with arthritis. The x-ray from 09/13/2024 at [facility] shows tricompartmental arthritic changes. He has [...] Treatment plan: He follows with a local child care attendant and is recommended to have a prompt appointment for evaluation of his right great toe, likely needing nail trimming and potential antibiotics given his history of chronic wounds. Follow-up: Prompt appointment with local child care attendant for evaluation of right great toe. PROCEDURE [...] for requiring urgent evaluation. documented in this encounterSainte Genevieve County Memorial HospitalLodwwttcvk15-55-3684 Evaluation + Plan note* Assessment & Plan Note - Gretta Whitlock MD - 09/26/2024 9:53 AM EDT Associated Problem(s): Critical limb ischemia of left lower extremity with gangrene (CMS-HCC) Left lower extremity angiogram and intervention [facility]03-27-2025 Miscellaneous Notes* Assessment & Plan Note - Gretta Whitlock MD - 09/26/2024 9:53 AM EDTAssociated Problem(s): Critical limb ischemia of left lower extremity with gangrene (CMS-HCC) Left lower extremity angiogram and intervention documented in this encounterOhioHealth Berger Hospital03-27-2025 History of Present illness Narrative* Gretta Whitlock MD - 09/26/2024 9:40 AM EDT Images from the original note were not included. To: [facility] HPI: Tomas Frausto is a 69 y.o. [...] Past Medical History: Diagnosis Date Angina pectoris ([facility]) Arrhythmia Atrial fibrillation ([facility] Atrial flutter ([facility]) Atrial flutter ([facility]) Benign prostatic hyperplasia BPH with urinary obstruction Cancer ([facility]) skin cancer Cataract Constipation Coronary artery disease Dental disease no teeth Diabetes mellitus ([facility]) Diabetes mellitus type 2, controlled ([facility]) Hypercholesterolemia Hypertension Myositis Peripheral neuropathy Rash Scalp wound Urinary incontinence Ventricular tachycardia ([facility]) Visual impairment glasses Past Surgical History: Past Surgical History: Procedure Laterality Date 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; excision and debridement Left 10/29/2021 Performed by Ambrosio Al MD at [facility] AMPUTATION TOE 4TH & 5TH/WIDE INCISIONAL DEBRIDEMENT LEFT DIABETIC FOOT NECROTIZING FASCITIS Left 08/12/2021 Performed by Ambrosio Al MD at [facility] CARDIAC DEFIBRILLATOR PLACEMENT medtronic CATARACT EXTRACTION Coronary angiogram and left ventricular gram/pressure N/A 11/19/2018 Performed by Sage Jay MD at [facility] CARDIAC CATH LABS Coronary fractional flow reserve N/A 11/19/2018 Performed by Sage Jay MD at [facility] CARDIAC CATH LABS CYSTOSCOPY [facility] SOLUTION N/A 10/27/2021 Performed by Frederic Thorne MD at [facility] DC ICD RA lead replace - MDT [...] 05/03/2024 Performed by Alber Hyde MD at [facility] Loop recorder implant N/A 11/16/2018 Performed [...] Interpersonal Safety: Unknown (08/24/2023) Received from [facility] Safety & Environment Fear of Current or [...] ischemia of left lower extremity with gangrene ([facility]) - Primary Current Assessment & Plan Left lower extremity angiogram and intervention Tomas was seen today for new patient referral for bilateral lower extremities blood . Diagnoses and all orders for this visit: Critical limb ischemia of left lower extremity with gangrene ([facility]) PVD (peripheral vascular disease) ([facility] [place], [place] Gretta Whitlock MD, RONNIE, RPVI, FSVS, FACS [facility] This note was created with the assistance of a speech recognition program. While intending to generate a timely document that accurately reflects the content of the visit, no guarantee can be provided that every grammatical or spelling mistake has been or will be identified or corrected. Thank you for your understanding. documented in this encounterOhioHealth Berger Hospital03-05-2025 History of Present illness Narrative* Vandana Brar APRN-[facility] - 09/04/2024 2:30 PM EST Tomas Frausto Date of visit: 09/04/2024 Date of : 1955 Age: 69 y.o. 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, with long-term current use of insulin [place] Atrial fibrillation with RVR [place] V-tach [place] [place] Atherosclerosis of zuni coronary artery of zuni heart without angina pectoris Pure hypercholesterolemia AICD present, double chamber- Medtronic Atrial flutter ([facility] Paroxysmal atrial fibrillation [place] Myositis Diabetic peripheral neuropathy associated with type 2 diabetes mellitus [place] Hematuria, gross Non-healing surgical wound Degenerative changes of anterior chamber angle Diabetic autonomic neuropathy ([facility]) Diabetic renal disease ([facility]) Essential hypertension Hypomagnesemia Lower urinary tract symptoms due to benign prostatic hyperplasia Osteomyelitis ([facility]) Angina pectoris ([facility]) Lumbosacral spondylosis without myelopathy No Known Allergies [...] moderate LAE, mild RA AE, trace AI, vfje-fb-jmdwgbkf MR, mild TR,RVSP 31 mm Hg Current cardiac medication regimen amiodarone 200 mg daily, aspirin 81 mg daily, Toprol 100 mg daily, Xarelto 20 mg daily Lives in [place] with friend. Retired - use to work [...] AF. Referred to Nephrology, appt in December. 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 Gets shots for macular degeneration Past Medical History: Diagnosis Date Angina pectoris (CMS-HCC) Arrhythmia Atrial fibrillation (CMS-HCC) Atrial flutter (CMS-HCC) Atrial flutter (CMS-HCC) Benign prostatic hyperplasia BPH with urinary obstruction Cancer (CMS-HCC) skin cancer Cataract Constipation Coronary artery disease Dental disease no teeth Diabetes [place] [place] Diabetes mellitus type 2, controlled [place] [place] Hypercholesterolemia Hypertension Myositis Peripheral neuropathy Rash Scalp wound Urinary incontinence Ventricular tachycardia [place] [place] Visual impairment glasses No data recorded No data recorded No data recorded Past Surgical History: Procedure Laterality Date 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; excision and debridement Left 10/29/2021 Performed by Ambrosio Al MD at [facility] AMPUTATION TOE 4TH & 5TH/WIDE INCISIONAL DEBRIDEMENT LEFT DIABETIC FOOT NECROTIZING FASCITIS Left 08/12/2021 Performed by Ambrosio Al MD at [facility] CARDIAC DEFIBRILLATOR PLACEMENT medtronic CATARACT EXTRACTION Coronary angiogram and left ventricular gram/pressure N/A 11/19/2018 Performed by Sage Jay MD at [facility] CARDIAC CATH LABS Coronary fractional flow reserve N/A 11/19/2018 Performed by Sage Jay MD at [facility] CARDIAC CATH LABS CYSTOSCOPY [facility] SOLUTION N/A 10/27/2021 Performed by Frederic Thorne MD at [facility] DC ICD RA lead replace - MDT [...] 05/03/2024 Performed by Alber Hyde MD at [facility] Loop recorder implant N/A 11/16/2018 Performed by Rafita Garcia MD at [facility] (EP) Loop recorder removal N/A 07/21/2020 Performed by Yoni Espinoza MD at [facility] (EP) SKIN CANCER EXCISION Family History Problem [...] Interpersonal Safety: Unknown (08/24/2023) Received from [facility] Safety & Environment Fear of Current or [...] - Device Interrogation; Future 2. Ventricular tachycardia ([facility]) - POCT EKG 3. Encounter for monitoring amiodarone therapy - Pulmonary function test Complete PFT w/ BD (Spirometry (Flow Volume Loop) pre/post short acting bronchodilator w/ DLCO (diffusion study) and Lung Volume); Future - albuterol (PROVENTIL,VENTOLIN) nebulizer solution 2.5 mg 4. Paroxysmal atrial fibrillation (CMS-HCC) 5. Typical atrial flutter (CMS-HCC) 6. V-tach ([facility]) 7. Essential hypertension Sustained monomorphic VT Initial episodes with EP study 2019, recurrent episodes on ILR S/p Medtronic dual-chamber ICD 2019 CXR revealed RA lead dislodgment pod 1. This was not recognized until a year later when he presented to [facility] EP. Suspected dislodged lead was causing [...] moderate LAE, mild RA AE, trace AI, [id number] MR, mild TR,RVSP 31 mm Hg Nonobstructive CAD [facility] 11/19/2018 showed single-vessel CAD (proximal LAD 60% [...] in about 1 year (around 09/04/2025). PCP: [facility] Nathaniel Referring Physician: No referring provider defined for this encounter. Vandana Brar, HOME ECONOMISTELODIA 09/04/24 0426 documented in this [facility]03-05-2025 History of Present illness Narrative* Phan Calderon MD - 09/04/2024 1:15 PM EST I agree with the findings in the scanned document. documented in this [facility]03-04-2025 Miscellaneous Notes* Telephone Encounter - Marisela Mcguire CMA - 09/03/2024 10:36 AM EST Called patient to remind them to bring their most current copy of their medication list with them to their appt. Patient verbalizes understanding. documented in this [facility]03-04-2025 Telephone encounter Note* Telephone Encounter - Marisela Mcguire CMA - 09/03/2024 10:36 AM EST Called patient to remind them to bring their most current copy of their medication list with them to their appt. Patient verbalizes understanding. [facility]03-04-2025 Miscellaneous Notes* Telephone Encounter - Marisela Mcguire CMA - 09/03/2024 10:30 AM EST Called patient to remind them to bring their most current copy of their medication list with them to their appt. Patient verbalizes understanding. documented in this [facility]03-04-2025 Telephone encounter Note* Telephone Encounter - Marisela Mcguire CMA - 09/03/2024 10:30 AM EST Called patient to remind them to bring their most current copy of their medication list with them to their appt. Patient verbalizes understanding. [facility]01-10-2025 Miscellaneous Notes* Telephone Encounter - Shannan Castellanos LPN - 07/12/2024 9:31 AM EST [facility] 03/08/23 Pt has future appt 07/24/24 [facility] Telephone encounter Note* Telephone Encounter - Shannan Castellanos LPN - 07/12/2024 9:31 AM EST [facility] 03/08/23 Pt has future appt 07/24/24 [facility]11-21-2024 History of Present illness Narrative* EDWARD Benavides - 05/23/2024 12:45 PM EST [facility] [address] [place] [address] Patient: Tomas Frausto Sex: male : 1955 [...] block injection with 100% releif. Pre proc 11/09 post proc continued Back Pain This is a chronic [...] Past Medical History: Diagnosis Date Angina pectoris ([facility]) Arrhythmia Atrial fibrillation ([facility] Atrial flutter ([facility]) Atrial flutter ([facility]) Benign prostatic hyperplasia BPH with urinary obstruction Cancer ([facility]) skin cancer Cataract Constipation Coronary artery disease Dental disease no teeth Diabetes mellitus ([facility]) Diabetes mellitus type 2, controlled ([facility]) Hypercholesterolemia Hypertension Myositis Peripheral neuropathy Rash Scalp wound Urinary incontinence Ventricular tachycardia ([facility]) Visual impairment glasses Past Surgical History: Procedure Laterality Date 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; excision and debridement Left 10/29/2021 Performed by Ambrosio Al MD at [facility] AMPUTATION TOE 4TH & 5TH/WIDE INCISIONAL DEBRIDEMENT LEFT DIABETIC FOOT NECROTIZING FASCITIS Left 08/12/2021 Performed by Ambrosio Al MD at [facility] CARDIAC DEFIBRILLATOR PLACEMENT medtronic CATARACT EXTRACTION Coronary angiogram and left ventricular gram/pressure N/A 11/19/2018 Performed by Sage Jay MD at [facility] CARDIAC CATH LABS Coronary fractional flow reserve N/A 11/19/2018 Performed by Sage Jay MD at [facility] CARDIAC CATH LABS CYSTOSCOPY [facility] SOLUTION N/A 10/27/2021 Performed by Frederic Thorne MD at [facility] DC ICD RA lead replace - [...] 05/03/2024 Performed by Alber Hyde MD at [facility] Loop recorder implant N/A 11/16/2018 Performed [...] Interpersonal Safety: Unknown (08/24/2023) Received from [facility] Safety & Environment Fear of Current or [...] EDWARD Benavides 05/23/24 1347 [facility] Miscellaneous Notes* Telephone Encounter - Tory Hoover RN - 05/23/2024 1:59 AM EST Last OV 03/08/23. Letter sent to pt 02/23. Attempted to call pt, no VM box set up. Letter sent. Pt will need appointment for future refills. [facility] Telephone encounter Note* Telephone Encounter - Tory Hoover RN - 05/23/2024 1:59 AM EST Last OV 03/08/23. Letter sent to pt 02/23. Attempted to call pt, no VM box set up. Letter sent. Pt will need appointment for future refills. [facility]10-08-2024 History of Present illness Narrative* EDWARD Benavides - 04/09/2024 10:45 AM EDT [facility] [address] [place] [address] Patient: Tomas Frausto Sex: male : 1955 [...] Past Medical History: Diagnosis Date Angina pectoris ([facility]) Arrhythmia Atrial fibrillation ([facility]) Atrial flutter [place] [place] Atrial flutter [place] [place] Benign prostatic hyperplasia BPH with urinary obstruction Cancer ([facility]) skin cancer Cataract Constipation Coronary artery disease Dental disease no teeth Diabetes mellitus [place] [place] Diabetes mellitus type 2, controlled [place] [place] Hypercholesterolemia Hypertension Myositis Peripheral neuropathy Rash Scalp wound Urinary incontinence Ventricular tachycardia [place] [place] Visual impairment glasses Past Surgical History: Procedure Laterality Date 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; excision and debridement Left 10/29/2021 Performed by Ambrosio Al MD at [facility] AMPUTATION TOE 4TH & 5TH/WIDE INCISIONAL DEBRIDEMENT LEFT DIABETIC FOOT NECROTIZING FASCITIS Left 08/12/2021 Performed by Ambrosio Al MD at [facility] CARDIAC DEFIBRILLATOR PLACEMENT medtronic CATARACT EXTRACTION Coronary angiogram and left ventricular gram/pressure N/A 11/19/2018 Performed by Sage Jay MD at [facility] CARDIAC CATH LABS Coronary fractional flow reserve N/A 11/19/2018 Performed by Sage Jay MD at [facility] CARDIAC CATH LABS CYSTOSCOPY [facility] SOLUTION N/A 10/27/2021 Performed by Frederic Thorne MD at [facility] DC ICD RA lead replace - MDT [...] Interpersonal Safety: Unknown (08/24/2023) Received from [facility] Safety & Environment Fear of Current or [...] these patients; however, close collaboration with a assembler flexible leads or photo mask cleaner is recommended before initiating the RFN procedure, therefore prior to RFA we will consult with patient's assembler flexible leads/photo mask cleaner for approval and recommendations to proceed with [...] EDWARD Benavides 04/11/24 1226 documented in this [facility] Instructions* Patient Instructions* Chula Bonilla CNA - [...] the nearest emergency room. documented in this encounterMem[facility]pretty[facility] [id number] History of Present illness Narrative* EDWARD Benavides - 02/22/2024 2:45 PM EDT [facility] [address] [place] [address] Patient: Tomas Frausto Sex: male : 1955 Age: 68 y.o. PCP: [facility] Nathaniel 02/22/2024 Tomas Frausto is [...] Past Medical History: Diagnosis Date Angina pectoris ([facility]) Arrhythmia Atrial fibrillation ([facility] Atrial flutter ([facility]) Atrial flutter ([facility]) Benign prostatic hyperplasia BPH with urinary obstruction Cancer ([facility]) skin cancer Cataract Constipation Coronary artery disease Dental disease no teeth Diabetes mellitus ([facility]) Diabetes mellitus type 2, controlled ([facility]) Hypercholesterolemia Hypertension Myositis Peripheral neuropathy Rash Scalp wound Urinary incontinence Ventricular tachycardia ([facility]) Visual impairment glasses Past Surgical History: Procedure Laterality Date 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; excision and debridement Left 10/29/2021 Performed by Ambrosio Al MD at [facility] AMPUTATION TOE 4TH & 5TH/WIDE INCISIONAL DEBRIDEMENT LEFT DIABETIC FOOT NECROTIZING FASCITIS Left 08/12/2021 Performed by Ambrosio Al MD at [facility] CARDIAC DEFIBRILLATOR PLACEMENT medtronic CATARACT EXTRACTION Coronary angiogram and left ventricular gram/pressure N/A 11/19/2018 Performed by Sage Jay MD at [facility] CARDIAC CATH LABS Coronary fractional flow reserve N/A 11/19/2018 Performed by Sage Jay MD at [facility] CARDIAC CATH LABS CYSTOSCOPY [facility] SOLUTION N/A 10/27/2021 Performed by Frederic Thorne MD at [facility] DC ICD RA lead replace - MDT [...] Interpersonal Safety: Unknown (08/24/2023) Received from [facility] Safety & Environment Fear of Current or [...] EDWARD Benavides 02/29/24 1218 documented in this [facility]08-21-2024 Miscellaneous Notes* Telephone Encounter - Macarena Sanchez RN - 02/21/2024 10:04 AM EDT 02/21/24 Remember to arrange Mar 2024 annual [facility] appt. Please contact pt to arrange. documented in this [facility]08-21-2024 Miscellaneous Notes* Telephone Encounter - Rochelle Goldman RN - 02/21/2024 10:04 AM EDT OV-03/08/2023 documented in this [facility]08-21-2024 Telephone encounter Note* Telephone Encounter - Macarena Sanchez RN - 02/21/2024 10:04 AM EDT 02/21/24 Remember to arrange Mar 2024 annual off appt. Please contact pt to arrange. [facility]08-21-2024 Telephone encounter Note* Telephone Encounter - Rochelle Goldman RN - 02/21/2024 10:04 AM EDT OV-03/08/2023 [facility]07-17-2024 Miscellaneous Notes* Telephone Encounter - Di London CNA - 01/17/2024 11:48 AM EDT Martha Merlos RN states he is needing a prescription for Tramadol. She is requesting it as it wasordered while in the hospital because this has been effective for him. ( 50 mg every 8 hours ). 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 documented in this encounter[facility]07-[facility]-2024 Telephone encounter Note* Telephone Encounter - Di London CNA - 01/17/2024 11:48 AM EDT Martha Merlos RN states he is needing a prescription for Tramadol. She is requesting it as it wasordered while in the hospital because this has been effective for him. ( 50 mg every 8 hours ). 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 [facility]07-11-2024 Miscellaneous Notes* Telephone Encounter - Mariana Reyez RN - 01/11/2024 2:42 PM EDT Patients friend came to window with request to get soma medication refilled. Provider stated we do not fill soma and friend instructed with information and to reach out pcp as they were the ones who provided patient with the rx. Friend verbalized understanding. documented in this encounterOhio[facility]07-[facility]-2024 Telephone encounter Note* Telephone Encounter - Mariana Reyez RN - 01/11/2024 2:42 PM EDT Patients friend came to window with request to get soma medication refilled. Provider stated we do not fill soma and friend instructed with information and to reach out pcp as they were the ones who provided patient with the rx. Friend verbalized understanding. [facility]07-09-2024 History of Present illness Narrative* EDWARD Benavides - 01/09/2024 1:00 PM EDT [facility] [address] [place] [address] Patient: Tomas Frausto Sex: male : 1955 Age: 68 y.o. PCP: [facility] Nathaniel 01/09/2024 Tomas Frausto is [...] Past Medical History: Diagnosis Date Angina pectoris ([facility]) Arrhythmia Atrial fibrillation ([facility] Atrial flutter ([facility]) Atrial flutter ([facility]) Benign prostatic hyperplasia BPH with urinary obstruction Cancer ([facility]) skin cancer Cataract Constipation Coronary artery disease Dental disease no teeth Diabetes mellitus ([facility]) Diabetes mellitus type 2, controlled ([facility]) Hypercholesterolemia Hypertension Myositis Peripheral neuropathy Rash Scalp wound Urinary incontinence Ventricular tachycardia ([facility]) Visual impairment glasses Past Surgical History: Procedure Laterality Date 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; excision and debridement Left 10/29/2021 Performed by Ambrosio Al MD at [facility] AMPUTATION TOE 4TH & 5TH/WIDE INCISIONAL DEBRIDEMENT LEFT DIABETIC FOOT NECROTIZING FASCITIS Left 08/12/2021 Performed by Ambrosio Al MD at [facility] CARDIAC DEFIBRILLATOR PLACEMENT medtronic CATARACT EXTRACTION Coronary angiogram and left ventricular gram/pressure N/A 11/19/2018 Performed by Sage Jay MD at [facility] CARDIAC CATH LABS Coronary fractional flow reserve N/A 11/19/2018 Performed by Sage Jay MD at [facility] CARDIAC CATH LABS CYSTOSCOPY [facility] SOLUTION N/A 10/27/2021 Performed by Frederic Thorne MD at [facility] DC ICD RA lead replace - MDT [...] Interpersonal Safety: Unknown (08/24/2023) Received from [facility] Safety & Environment Fear of Current or [...] EDWARD Benavides 01/11/24 0917 documented in this [facility]-2023 NotePROCEDURE: XR FOOT LT MIN 3 [...] Electronically authenticated by: EDILSON DON Date: 2022-08-09 15:44[facility]* Diagnosis Enuresis- Primary Functional urinary incontinence BPH (benign prostatic hypertrophy) with urinary obstruction- Primary Hypertrophy of prostate with urinary obstruction and other lower urinary tract symptoms (LUTS) Benign prostatic hyperplasia with urinary obstruction- Primary Urinary retention- Primary Unspecified retention of urine Benign prostatic hyperplasia with urinary obstruction Ventricular tachycardia (CMS-HCC) Paroxysmal ventricular tachycardia Atrial fibrillation with RVR ([facility]) V-tach ([facility]) Paroxysmal ventricular tachycardia documented in this encounter [facility]* Diagnosis Lumbar spondylolysis- Primary Lumbosacral spondylosis without myelopathy documented in this encounter [facility]* Diagnosis Atrial fibrillation, unspecified type (CMS-HCC)- Primary documented in this encounter [facility]* Diagnosis Ventricular tachycardia (CMS-HCC) Paroxysmal ventricular tachycardia Atrial fibrillation with RVR ([facility]) V-tach ([facility]) Paroxysmal ventricular tachycardia documented in this encounter [facility]* Diagnosis Lumbosacral spondylosis without myelopathy- Primary Disc displacement, lumbar Displacement of lumbar intervertebral disc without myelopathy Lumbar radiculopathy, chronic documented in this encounter [facility]* Diagnosis Lumbosacral spondylosis without myelopathy- Primary Lumbosacral spondylosis without myelopathy- Primary Lumbosacral spondylosis without myelopathy documented in this encounter [facility]* Diagnosis Enuresis- Primary Functional urinary incontinence BPH (benign prostatic hypertrophy) with urinary obstruction- Primary Hypertrophy of prostate with urinary obstruction and other lower urinary tract symptoms (LUTS) Benign prostatic hyperplasia with urinary obstruction- Primary Urinary retention- Primary Unspecified retention of urine Benign prostatic hyperplasia with urinary obstruction Lumbosacral spondylosis without myelopathy- Primary documented in this encounter [facility]* Diagnosis Enuresis- Primary Functional urinary incontinence BPH (benign prostatic hypertrophy) with urinary obstruction- Primary Hypertrophy of prostate with urinary obstruction and other lower urinary tract symptoms (LUTS) Benign prostatic hyperplasia with urinary obstruction- Primary Urinary retention- Primary Unspecified retention of urine Benign prostatic hyperplasia with urinary obstruction Ventricular tachycardia ([facility]) Paroxysmal ventricular tachycardia Atrial fibrillation with RVR ([facility]) V-tach ([facility]) Paroxysmal ventricular tachycardia documented in this encounter [facility]* Diagnosis Enuresis- Primary [...] Atrial fibrillation Typical atrial flutter (CMS-HCC) V-tach ([facility]) Paroxysmal ventricular tachycardia Essential hypertension Unspecified essential hypertension documented in this encounter [facility]* Diagnosis Enuresis- Primary Functional urinary incontinence BPH (benign prostatic hypertrophy) with urinary obstruction- Primary Hypertrophy of prostate with urinary obstruction and other lower urinary tract symptoms (LUTS) Benign prostatic hyperplasia with urinary obstruction- Primary Urinary retention- Primary Unspecified retention of urine Benign prostatic hyperplasia with urinary obstruction AICD present, double chamber- Medtronic- Primary documented in this encounter [facility]* Diagnosis Enuresis- Primary [...] peripheral vascular disease documented in this encounter [facility]* Diagnosis Acute pain of right knee- Primary Arthritis of right knee Effusion of right knee documented in this encounter [facility] HealthcareEvaluation [facility]* Diagnosis Paronychia of great toe of right foot- Primary Angiopathy, diabetic ([facility]) Type II or unspecified type diabetes mellitus with peripheral circulatory disorders, not stated as uncontrolled Diabetic polyneuropathy associated with type 2 diabetes mellitus ([facility]) Status post partial amputation of left foot ([facility]) documented in this encounter [facility] HealthcareEvaluation note* Diagnosis Enuresis- Primary Functional [...] gangrene (CMS-HCC)- Primary documented in this encounter [facility] System[facility] noteNo assessment information available [facility] Work Phone: Evaluation note* Diagnosis [...] gangrene (CMS-HCC)- Primary Atrial fibrillation, unspecified type ([facility] Diagnosis Dermatophytosis of nail- Primary Dystrophic nail Other specified disease of nail Status post partial amputation of left foot (HCC) Angiopathy, diabetic (HCC) Type II or unspecified type diabetes mellitus with peripheral circulatory disorders, not stated as uncontrolled Diabetic polyneuropathy associated with type 2 diabetes mellitus (HCC) documented [facility] encounter [facility] Diagnosis Diabetic ulcer of toe associated with type 2 diabetes mellitus, with fat layer exposed, unspecifiedlaterality (HCC)- Primary Status post partial amputation of left foot (HCC) Angiopathy, diabetic (HCC) Type II or unspecified type diabetes mellitus with peripheral circulatory disorders, not stated as uncontrolled Diabetic polyneuropathy associated with type 2 diabetes mellitus (HCC) [facility] Diagnosis Status post partial amputation of left foot (HCC)- Primary Angiopathy, diabetic (HCC) Type II or unspecified type diabetes mellitus with peripheral circulatory disorders, not stated as uncontrolled Diabetic polyneuropathy associated with type 2 diabetes mellitus (HCC) 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 HealthcareInstructionsNot on filedocumented in this encounterFair[facility] SystemInstructionsNot on filedocumented in this encounterFairfield Medical Center SystemInstructionsNot on filedocumented in this encounterUniversity [facility] Center[facility] InstructionsNot on filedocumented in this encounterProMedica Health System InstructionsNot on filedocumented in this encounterProMedica [facility] System InstructionsNot on filedocumented in this encounterProMedica [facility] System InstructionsNot on filedocumented in this encounterProMedica [facility] System InstructionsNot on filedocumented in this encounterProOhiohealth [facility] System InstructionsNot on filedocumented in this encounterProOhiohealth [facility] System InstructionsNot on filedocumented in this encounterProOhiohealth [facility] System InstructionsNot on filedocumented in this encounterProMedica Main [facility] System Summary Purpose Family History No Family History Records FoundNo Family History Records FoundNo Family History Records FoundNo Family History Records FoundNo Family History Records FoundNo Family History Records Found Advance Directives Date ActivatedDate InactivatedComments08/10/2021 3:58 AM08/16/2021 6:41 PMDate [...] contrast Bebeto Romano PA [address], [address] [place] [id number] [facility] [address] [place] [address] Phone: [phone] Referral IDStatusReasonKilauea DateExpiration DateVisits RequestedVisits [id number] Review/[id number] / ProceduresReferred By ContactReferred To Contact Diagnoses Lumbosacral spondylosis without myelopathy Procedures Case request operating room: INJECTION BLOCK NERVE MEDIAL BRANCH: bilat L45 51 Bebeto Romano PA [address], [address] [place] [address] Referral IDStatusReasonStart DateExpiration DateVisits RequestedVisits [id number] [id number] Additional Source Comments (unrecognized sect ion and content) No Status Records FoundNo Status Records FoundNo Status Records FoundNo Status Records FoundNo Status Records FoundNo Status Records Found INFORMATION SOURCE (unrecogn ized section and content) DATE CREATED AUTHOR 11/16/2022 [facility] DATE CREATED AUTHOR AUTHOR'S ORGANIZ ATION 09/28/2024 [facility] DATE CREATED AUTHOR AUTHOR'S ORGANIZ ATION 10/12/2024 [facility] DATE CREATED AUTHOR AUTHOR'S ORGANIZ ATION 11/20/2024 [facility] DATE CREATED AUTHOR AUTHOR'S ORGANIZ ATION 02/15/2025 [facility] DATE CREATED AUTHOR AUTHOR'S ORGANIZ ATION 05/15/2025 [facility] EPIC Reason for Visit (unrecogniz ed section and content) ReasonCommentsMed Change RequestReasonCommentsBack PainReasonCommentsMed Refill ReasonCommentsBack PainReasonCommentsFollow-upov/pm need for med refills hemalatha w pt friend Don r/s w pt friend Stevenson gil 08/27ReasonCommentsDevice CheckReason CommentsNew patient Referral for bilateral lower extremities bloodNew patient Referral for bilateral lower extremities blood flow issues, Pvd chronic left foot woundSpecialtyDiagnoses / ProceduresReferred By ContactReferred To Contact Vascular Surgery Diagnoses PVD (peripheral vascular disease) Mariana Gutiérrez, DPEdvin [address] [place] [address] Phone: tel: fax: [facility] [address] [place] [address] Phone: tel:[phone] fax: Referral IDStatusReasonStart DateExpiration DateVisits RequestedVisits [id number] Review Specialty Services Required /[id number]OiscjqfjWcn PainJames Borer 69yo New Patient last seen 07/12/2021. Patient is diabetic. Concerns of Right great toena il infection, patient relates drainage, thick and painful. [place] due to non- healing after amputation surgery 3 years ago, in [place]. Currently taking cephalexin for left foot infection. Left leg blood clot as of last week, patient is on aspirin and Xarelto. BS [address] Bejarano 09/30/2024 SS 10Reason CommentsANGIO [id number] DateCommentsSurgical Or Dental Clearance 10/15/2024ReasonCommentsDM Foot CareEstablished [...] PCP: Bradley Bejarano 12/2024, A1C: n/a, BS: 130ReasonCommentsDawit Frausto is a 69 y.o. male who presents for DM Foot Care. PCP: Bradley Bejarano 12/2024, A1C: n/a,BS: 130.Reason CommentsNail Lise Frausto is a 69 y.o. male who presents for DM Foot Care. Patient relates Ulcer right great toe,started about 2 weeks ago, patient is seeing Dr. Gutiérrez for this Ulcer. PCP: Bradley Bejaraon 12/2024, A1C: n/a, BS: 130. Care Teams (unrecognized sec tion and content) Team MemberRelationshipSpecialtyStart DateEnd Date [facility], [facility] [address] [place], [place] PCP - GeneralFamily Lbivctfh67/15/24Team MemberRelationshipSpecialtyStart Date End Date Services, [facility] [address] [place], [place] PCP - GeneralFamily Medicine12/26/23Team MemberRelationshipSpecialtyStart DateEnd Date [facility] [address], [place] PCP - GeneralFamily Medicine12/26/23Team MemberRelationshipSpecialtyStart DateEnd Date [facility] [address] [place], [place] PCP - GeneralFamily Medicine12/26/23Team MemberRelationshipSpecialtyStart DateEnd Date [facility] [address] [place] PCP - GeneralFamily Medicine12/26/23Team MemberRelationshipSpecialtyStart DateEnd Date [facility] [address] [place] PCP - GeneralFamily Medicine12/26/23Team MemberRelationshipSpecialtyStart DateEnd Date [facility] [address] [place] PCP - GeneralFamily Medicine12/26/23Team MemberRelationshipSpecialtyStart DateEnd Date Services, [facility] [address], [place] PCP - GeneralFamily Jfpbjzrv24/15/24Team MemberRelationshipSpecialtyStart Date End Date Services, [facility] [address] [place], [place] PCP - GeneralFamily Uzsyzonw32/15/24Team MemberRelationshipSpecialtyStart Date End Date Services, [facility] [address] [place] PCP - GeneralFamily Uahqpzwa78/15/24Team MemberRelationshipSpecialtyStart Date End Date Services, [facility] [address] [place] PCP - GeneralFamily Bcmjoxda13/15/24Team MemberRelationshipSpecialtyStart Date End Date Services, [facility] [address] [place] PCP - GeneralFamily Wumldrdk70/15/24Team MemberRelationshipSpecialtyStart Date End Date Services, [facility] [address] [place] PCP - GeneralFamily Jzrlpruf17/15/24Team MemberRelationshipSpecialtyStart Date End Date Bradley Bejarano PA [address] [place] [address] PCP - GeneralFamily Medicine10/02/24Team MemberRelationshipSpecialtyStart DateEnd Date StudBradley esparza PA [address] [place] [address] PCP - GeneralFamily Medicine10/02/24Team MemberRelationshipSpecialtyStart DateEnd Date StudBradley esparza PA [address] [place] [address] PCP - GeneralFamily Medicine10/02/24Team MemberRelationshipSpecialtyStart DateEnd Date Bradley Bejarano PA [address] [place] [address] PCP - GeneralFamily Medicine10/02/24Team MemberRelationshipSpecialtyStart DateEnd Date Services, [facility] [address] [place] PCP - GeneralFamily Laftygfw20/15/24 Team Status: Inactive Member Role Status Zonia Gutiérrez DPM MS Attending Provider Active Start: November 12, 2024 End: November 12, 2024Team MemberRelationshipSpecialtyStart DateEnd Date [facility] [address] [place] PCP - GeneralFamily Bycctgcn07/15/24Team MemberRelationshipSpecialtyStart Date End Date Bradley Bejarano PA [address] [place] [address] PCP - GeneralFamily Medicine10/02/24Team MemberRelationshipSpecialtyStart DateEnd Date Bradley Bejarano PA [address] [place] [address] PCP - GeneralFamily Medicine10/02/24Team MemberRelationshipSpecialtyStart DateEnd Date Bradley Bejarano PA [address] [place] [address] PCP - GeneralFamily Medicine10/02/24Team MemberRelationshipSpecialtyStart DateEnd Date Bradley Bejarano PA [address] [place] [address] PCP - GeneralFamily Medicine10/02/24Team MemberRelationshipSpecialtyStart DateEnd Date Bradlye Bejarano PA [address] [place] [address] PCP - GeneralFamily Medicine10/02/24 Goals (unrecognized section and content) Goals may [...] BE BASED ON THE PRIMARY CLINICAL RECORDS. [facility] [employer] [facility]. provides no warranty or guarantee of the accuracy or completeness of information in this document.
== END 2025-05-21 09:37 | disposition home or self-care (01) ==
LOC: WC 09:37
PROVIDERS: Visit Provider Podiatrist Foot & Ankle Surgery
DX: E11.621 Type 2 diabetes mellitus with foot ulcer (principal); L97.515 Non-pressure chronic ulcer of other part of right foot with muscle involvement without evidence of necrosis
CPT/HCPCS: 97597